=== PATIENT | female | born 1985 | race Caucasian/White ===

== ENCOUNTER 2016-05-27 16:23 | Emergency (ER) | payer MEDICAID ==
[~2016-05-27] VITALS: Ht 154.9 cm; Wt 115.0 kg
[~2016-05-27 16:23] MED LIST: ACETA500 PO; FURO1TAB60 PO; IBUP800T23 PO; MECL-62 PO; TOPA50TA7 PO; TYLETAB34 PO; ZOFR4TAB PO
[2016-05-27 16:24] VITALS: BP 142/101; PULSE 82; RESP 16; TEMP 98.4; O2SAT 98
--- NOTE | 2016-05-27 16:54 | PD ---
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 Around 1:00 today started having some left lower quadrant pain. Says the pain is quite severe She has had ovarian cysts in the past. 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 She has been trying to get without checking her urine tests and has been negative to date. She had some bleeding 2 days ago which she thought might have been implantation. Her last regular period was April 25. She has history of uterine fibroids. She also has history of pseudotumor cerebri. PFSH Past Medical History Diminished Hearing: No Headaches: Yes Kidney Stones: Yes Neurologic: Yes (PSEUDOTUMOR CEREBRI) Immunizations Current: Yes Migraines: Yes ?: Unknown LMP: 05/27/2016 Dilation and Curettage (D&C): Yes (x3 ) Past Surgical History Section: Yes (X1) Cholecystectomy: Yes Other Surgery: Yes (L KIDNEY STENTx 6) Social History Alcohol Use: No Tobacco Use: No Substance Use: No Allergies-Medications (Allergen,Severity, Reaction): Coded Allergies: Amoxicillin (Verified Allergy, Severe, Anaphylaxis, 05/27/16) Ibuprofen (Verified Allergy, Intermediate, HIVES, FACIAL SWELLING., ) Penicillin (Verified Allergy, Unknown, 05/27/16) Sulfa (Verified Allergy, Unknown, 05/27/16) Imitrex (Verified Adverse Reaction, Unknown, VOMITING PASSED OUT, 05/27/16) Reported Meds & Prescriptions Reported Meds & Active Scripts Active Physical Exam Narrative GENERAL: Well-developed female SKIN: Warm and dry. HEAD: Atraumatic. Normocephalic. EYES: Pupils equal and round. No scleral icterus. No injection or drainage. ENT: No nasal bleeding or discharge. Mucous membranes pink and moist. NECK: Trachea midline. No JVD. CARDIOVASCULAR: Regular rate and rhythm. No murmur appreciated. RESPIRATORY: No accessory muscle use. Clear to auscultation. Breath sounds equal bilaterally. GASTROINTESTINAL: Abdomen soft, non-tender, nondistended. Hepatic and splenic margins not palpable. Pelvic: There is some blood in the vaginal vault. There is fullness and tenderness in the left adnexal area MUSCULOSKELETAL: No obvious deformities. No clubbing. No cyanosis. No edema. NEUROLOGICAL: Awake and alert. No obvious cranial nerve deficits. Motor grossly within normal limits. Normal speech. PSYCHIATRIC: Appropriate mood and affect; insight and judgment normal. Data Data Last Documented VS Vital Signs Date Time Temp Pulse Resp B/P Pulse Ox O2 Delivery O2 Flow Rate FiO2 05/27/16 19:45 18 05/27/16 18:31 69 96/52 98 Room Air 05/27/16 16:24 98.4 Orders Complete Blood Count With Diff (05/27/16 16:49) Beta Hcg (Quant/Titer) (05/27/16 16:49) Sodium Chlor 0.9% 1000 Ml Inj (Ns 1000 M (05/27/16 18:30) Ondansetron Inj (Zofran Inj) (05/27/16 18:30) Hydromorphone Pf Inj (Dilaudid Pf Inj) (05/27/16 18:30) Hydromorphone Pf Inj (Dilaudid Pf Inj) (05/27/16 20:00) Us Pelvis Comp W Dop Transvag (05/27/16 18:17) Labs Laboratory Tests Test 05/27/16 17:10 White Blood Count 11.9 TH/MM3 Red Blood Count 4.65 MIL/MM3 Hemoglobin 13.1 GM/DL Hematocrit 38.7 % Mean Corpuscular Volume 83.3 FL Mean Corpuscular Hemoglobin 28.3 PG Mean Corpuscular Hemoglobin 33.9 % Concent Red Cell Distribution Width 12.3 % Platelet Count 321 TH/MM3 Mean Platelet Volume 8.2 FL Neutrophils (%) (Auto) 59.2 % Lymphocytes (%) (Auto) 33.2 % Monocytes (%) (Auto) 5.9 % Eosinophils (%) (Auto) 0.9 % Basophils (%) (Auto) 0.8 % Neutrophils # (Auto) 7.0 TH/MM3 Lymphocytes # (Auto) 4.0 TH/MM3 Monocytes # (Auto) 0.7 TH/MM3 Eosinophils # (Auto) 0.1 TH/MM3 Basophils # (Auto) 0.1 TH/MM3 CBC Comment DIFF FINAL Differential Comment Human Chorionic Gonadotropin, LESS THAN 1 Quant MIU/ML MDM Medical Decision Making Medical Screen Exam Complete: Yes Emergency Medical Condition: Yes Medical Record Reviewed: Yes Differential Diagnosis Differential includes cervicitis, ovarian cyst, ectopic Narrative Course Beta titer is 1. Ultrasound shows left hemorrhagic cyst. I will recommend pain control. She is to follow-up with [facility] Diagnosis Primary Impression: Left ovarian cyst Scripts Oxycodone-Acetaminophen (Percocet)7.5-325 mg Tab1 Tab PO Q4H PRN (PAIN) #20 TAB Ref 0 Prov:Louie Hatch MD 05/27/16 Disposition: 01 DISCHARGE HOME Condition: Stable Louie Hatch MD May 27, 2016 16:54
[2016-05-27 17:20] LABS: BASOPHIL # 0.1 TH/MM3 (0-0.2); BASOPHIL % 0.8 % (0.0-2.0); EOSINOPHIL # 0.1 TH/MM3 (0-0.4); EOSINOPHIL % 0.9 % (0.0-4.0); HEMATOCRIT 38.7 % (35.0-46.0); HEMO FLAGS DIFF FINAL; LYMPH % 33.2 % (9.0-44.0); MEAN CELL VOLUME 83.3 FL (80.0-100.0); MEAN CORPUSCULAR HEMOGLOBIN 28.3 PG (27.0-34.0); MEAN CORPUSCULAR HGB CONC 33.9 % (32.0-36.0); MONO % 5.9 % (0.0-8.0); NEUT % 59.2 % (16.0-70.0); PLATELET COUNT 321 TH/MM3 (150-450); RED BLOOD COUNT 4.65 MIL/MM3 (4.00-5.30); RED CELL DISTRIBUTION WIDTH 12.3 % (11.6-17.2); WHITE BLOOD COUNT 11.9 TH/MM3 (4.0-11.0)
[2016-05-27 17:43] LABS: BETA HCG QUANT LESS THAN 1 MIU/ML (0-5)
[2016-05-27] MEDS ORDERED: SODIUM CHLOR 0.9% 1000 ML INJ 1,000 ML IV SCH (18:30)
[2016-05-27] MEDS ORDERED: ONDANSETRON HCL 4 MG/2 ML VIAL IV PUSH ONE (18:30)
[2016-05-27] MEDS ORDERED: HYDROmorphone HCL PF 1 MG/ML VIAL IV PUSH ONE ×2 (18:30→20:00)
[2016-05-27 18:31] VITALS: BP 96/52; PULSE 69; RESP 16; O2SAT 98
--- NOTE | 2016-05-27 20:21 | RADHPO ---
EXAM DATE/TIME: 05/27/2016 19:20 [facility] COMPARISON: No previous studies available for comparison. INDICATIONS : Pelvic pain. MEDICAL HISTORY : Renal calculi. Ovarian cysts. Uterine fibroids. SURGICAL HISTORY : Cholecystectomy. section. D&C. Left kidney stent. ENCOUNTER: Initial ACUITY: 1 day PAIN SCORE: 8/10 LOCATION: Bilateral pelvis MEASUREMENTS: UTERUS: 8.6 x 4.1 x 5.5 cm ENDOMETRIAL STRIPE: 13 mm RIGHT OVARY: 3.2 x 1.8 x 1.8 cm LEFT OVARY: 4.1 x 2.4 x 3.4 cm FINDINGS: There is a 1.5 cm shadowing area in the lower uterine segment, possibly a fibroid. Endometrial stripe thickness measures up to 13 mm. Right ovary unremarkable. Probable degenerating corpus luteum or hem orrhagic cyst in left ovary measuring up to 2 cm in diameter. CONCLUSION: Probable fibroid lower uterine segment. Complex corpus luteum or hemorrhagic cyst left ovary. No free fluid. Daniel Zuniga MD on May 27, 2016 at 20:16 Board Certified Radiologist. This report was verified electronically.
[2016-05-27] MEDS ORDERED: PERC7.5T13 PO (20:33)
[2016-05-27 21:04] VITALS: BP 102/65; PULSE 63; RESP 16; O2SAT 98
[2016-05-27 21:06] VITALS: RESP 16
== END 2016-05-27 21:06 | disposition home or self-care (01) ==
LOC: PHED 16:23
DX: N83.202 Unspecified ovarian cyst, left side (principal); N93.9 Abnormal uterine and vaginal bleeding, unspecified; Z87.42 Personal history of other diseases of the female genital tract; Z87.442 Personal history of urinary calculi; Z86.69 Personal history of other diseases of the nervous system and sense organs
CPT/HCPCS: 76830; 76856; 84702; 85025; 93975; 96361; 96374; 96375; 96376; 99284; J1170; J2405; J7030

== ENCOUNTER 2016-05-29 07:31 | Emergency (ER) | payer SELFPAY ==
[~2016-05-29] VITALS: Ht 154.9 cm; Wt 115.0 kg
[~2016-05-29 07:31] MED LIST changes: -ACETA500 PO; -FURO1TAB60 PO; -IBUP800T23 PO; -MECL-62 PO; +PERC7.5T13 PO; -TOPA50TA7 PO; -TYLETAB34 PO; -ZOFR4TAB PO
[2016-05-29 07:36] VITALS: BP 140/90; PULSE 80; RESP 16; TEMP 98.2; O2SAT 100
--- NOTE | 2016-05-29 08:06 | PD ---
HPI Chief Complaint: Abdominal Pain Time Seen by Provider: 07:49 Travel History International Travel<30 days: No Contact w/Intl Traveler<30days: No Traveled to known affect area: No History of Present Illness HPI This is a 31-year-old female who presents to the emergency department with left lower quadrant pain, cramping, constant that started 3 days ago and has been worsening since then. She has been having vaginal bleeding and this morning had heavy bleeding but then it subsided. She feels like her pain got significantly worse today and she felt like her ovary was twisting on itself. She was seen in the emergency department early this week and was diagnosed with fibroids as well as a hemorrhagic ovarian cyst. She was discharged with pain medicine. She says her pain is Worse and she vomited several times this morning. She does have a history kidney stones. She denies any dysuria, urinary frequency, urgency, diarrhea or constipation and denies any fever. She has not had any abdominal surgeries. PFSH Past Medical History Diminished Hearing: No Headaches: Yes Kidney Stones: Yes Neurologic: Yes (PSEUDOTUMOR CEREBRI) Respiratory: Yes (asthma) Immunizations Current: Yes Migraines: Yes Tetanus Vaccination: Unknown Influenza Vaccination: No ?: Not LMP: 05/27/16 Dilation and Curettage (D&C): Yes (x3 ) Past Surgical History Section: Yes (X1) Cholecystectomy: Yes Other Surgery: Yes (L KIDNEY STENTx 6) Social History Alcohol Use: No Tobacco Use: Yes (1 cig a week) Substance Use: No Allergies-Medications (Allergen,Severity, Reaction): Coded Allergies: Amoxicillin (Verified Allergy, Severe, Anaphylaxis, 05/29/16) Ibuprofen (Verified Allergy, Intermediate, HIVES, FACIAL SWELLING., 05/29/16 ) Penicillin (Verified Allergy, Unknown, 05/29/16) Sulfa (Verified Allergy, Unknown, 05/29/16) Imitrex (Verified Adverse Reaction, Unknown, VOMITING PASSED OUT, 05/29/16) Reported Meds & Prescriptions Reported Meds & Active Scripts Active Percocet (Oxycodone-Acetaminophen) 7.5-325 mg Tab 1 Tab PO Q4H PRN Review of Systems Except as stated in HPI: all other systems reviewed are Neg Physical Exam Narrative GENERAL:Well appearing, no acute distress SKIN: Warm and dry. HEAD: Atraumatic. Normocephalic. EYES: Pupils equal and round. No injection or drainage. ENT: Moist mucous membranes NECK: Trachea midline. CARDIOVASCULAR: Regular rate and rhythm. No murmur appreciated. RESPIRATORY: Clear to auscultation. Breath sounds equal bilaterally. GASTROINTESTINAL: Abdomen soft, tender to palpation in the left lower quadrant with no rebound or guarding. MUSCULOSKELETAL: No obvious deformities. NEUROLOGICAL: Awake and alert. No obvious cranial nerve deficits. Moving all extremities. PSYCHIATRIC: Appropriate mood and affect; insight and judgment normal. Data Data Last Documented VS Vital Signs Date Time Temp Pulse Resp B/P Pulse Ox O2 Delivery O2 Flow Rate FiO2 05/29/16 07:50 16 05/29/16 07:36 98.2 80 140/90 100 MDM Medical Decision Making Medical Screen Exam Complete: Yes Emergency Medical Condition: Yes Interpretation(s) Afebrile, no tachycardia, normotensive Pelvic ultrasound from May 27 demonstrates probable fibroid in the lower uterine segment with a complex corpus luteum or hemorrhagic cyst on the left ovary Differential Diagnosis Ovarian cyst, ovarian torsion, kidney stone, pelvic inflammatory disease, tubo- ovarian abscess, drug-seeking behavior Narrative Course This is a 31-year-old female who presents to the emergency department with left lower quadrant abdominal pain that's been present for several days. She was concerned that her ovary was twisting on itself. She had a pelvic ultrasound 2 days ago which demonstrated a possible hemorrhagic cyst on the left which is 1.5 cm. Given the size of her cyst I don't think a torsion is likely. I had a long conversation with the patient regarding further diagnostics. I don't think she has a life-threatening etiology of her pain at this time even it's on the left side, she appears well and her vital signs are otherwise reassuring. She already had a CT scan this July so she understands the risk of radiation induced malignancy and would like to defer further CT imaging at this time if possible. I think it's reasonable to consider conservative management and have the patient follow-up with a lode miner blasting. I do have some concerns regarding the patient's frequent visits to the emergency department and pain medication use. This is the patient's ninth emergency department visit for pain related complaints in 1 year. She's filled 17 controlled substance prescriptions from 16 different providers. She has a stated allergy to ibuprofen. She has several red flags for drug-seeking behavior. I don't suspect an emergent nature of the patient's pain. Patient will be discharged home. Diagnosis Primary Impression: Left ovarian cyst Patient Instructions: General Instructions Additional Instructions: If you develop severe or worsening abdominal pain, fever>100.4, persistent vomiting or inability to eat or drink return to the emergency department immediately. Follow up with your primary care physician in 1-2 days for a check-up. Med/Other Pt SpecificInfo: No Change to Meds Disposition: 01 DISCHARGE HOME Condition: Stable Rizwana Kwok MD May 29, 2016 08:06
== END 2016-05-29 08:17 | disposition home or self-care (01) ==
LOC: PHED 07:31
DX: Z87.442 Personal history of urinary calculi (principal); N83.202 Unspecified ovarian cyst, left side
CPT/HCPCS: 99283

== ENCOUNTER 2016-10-24 14:01 | Emergency (ER) | payer MEDICAID ==
[~2016-10-24] VITALS: Ht 154.9 cm; Wt 115.0 kg
[2016-10-24 14:02] VITALS: BP 153/88; PULSE 95; RESP 20; TEMP 98.5; O2SAT 98
[2016-10-24] MEDS ORDERED: MORPHINE SULFATE 4 MG/ML INJ IV PUSH ONE (15:30)
--- NOTE | 2016-10-24 15:38 | PD ---
HPI Chief Complaint: Pain: Acute or Chronic Time Seen by Provider: 15:30 Travel History International Travel<30 days: No Contact w/Intl Traveler<30days: No Traveled to known affect area: No History of Present Illness HPI Patient's 31-year-old female presenting to emergency evaluation of right calf pain and swelling. Patient states she woke up with the pain, it is increased throughout the course of the day, worse with walking. She states pain is radiating now up to the back of her right leg. She reports the pain as a 9 out of 10 and described as cramping and sharp. Patient has a history of pseudotumor cerebri, currently she is on Lasix and Diamox. She is not on any oral contraceptive pills, she has no history of DVT. Patient further denies any shortness breath, chest pain. PFSH Past Medical History Asthma: Yes Diminished Hearing: No Headaches: Yes Kidney Stones: Yes Neurologic: Yes (PSEUDOTUMOR CEREBRI) Immunizations Current: Yes Migraines: Yes ?: Not Dilation and Curettage (D&C): Yes (x3 ) Past Surgical History Section: Yes (X1) Cholecystectomy: Yes Other Surgery: Yes (L KIDNEY STENTx 6) Social History Alcohol Use: No Tobacco Use: Yes (1 cig a week) Substance Use: No Allergies-Medications (Allergen,Severity, Reaction): Coded Allergies: Amoxicillin (Verified Allergy, Severe, Anaphylaxis, 10/24/16) Ibuprofen (Verified Allergy, Intermediate, HIVES, FACIAL SWELLING., ) Penicillin (Verified Allergy, Unknown, 10/24/16) Sulfa (Verified Allergy, Unknown, 10/24/16) Imitrex (Verified Adverse Reaction, Unknown, VOMITING PASSED OUT, 10/24/16) Reported Meds & Prescriptions Reported Meds & Active Scripts Active No Active Prescriptions or Reported Medications Review of Systems Except as stated in HPI: all other systems reviewed are Neg Cardiovascular: Positive: Varicosities, Edema Musculoskeletal: Positive: Myalgias, Cramping, Pain Physical Exam Narrative GENERAL: Obese, well-developed, alert female. Appears uncomfortable, in no acute distress. SKIN: Focused skin assessment warm/dry. Varicose veins noted to bilateral lower extremities. HEAD: Atraumatic. Normocephalic. EYES: Pupils equal and round. No scleral icterus. No injection or drainage. ENT: No nasal bleeding or discharge. Mucous membranes pink and moist. NECK: Trachea midline. No JVD. CARDIOVASCULAR: Regular rate and rhythm. No murmur appreciated. 2+ dorsalis pedal pulses bilaterally. RESPIRATORY: No accessory muscle use. Clear to auscultation. Breath sounds equal bilaterally. GASTROINTESTINAL: Abdomen soft, non-tender, nondistended. Hepatic and splenic margins not palpable. MUSCULOSKELETAL: No obvious deformities. No clubbing. No cyanosis. No edema. NEUROLOGICAL: Awake and alert. No obvious cranial nerve deficits. Motor grossly within normal limits. Normal speech. PSYCHIATRIC: Appropriate mood and affect; insight and judgment normal. Data Data Last Documented VS Vital Signs Date Time Temp Pulse Resp B/P Pulse Ox O2 Delivery O2 Flow Rate FiO2 10/24/16 18:35 88 18 145/79 100 Room Air 10/24/16 14:02 98.5 Orders Morphine Inj (Morphine Inj) (10/24/16 15:30) Comprehensive Metabolic Panel (10/24/16 15:28) Iv Access Insert/Monitor (10/24/16 15:28) Us Leg Venous Doppler (10/24/16 ) Acetamin-Hydrocod 325-5 Mg ([place] 5-325 (10/24/16 16:45) Orphenadrine Inj (Norflex Inj) (10/24/16 17:30) Acetaminophen (Tylenol) (10/24/16 17:30) Labs Laboratory Tests Test 10/24/16 17:59 Sodium Level 138 MEQ/L Potassium Level 3.8 MEQ/L Chloride Level 105 MEQ/L Carbon Dioxide Level 25.3 MEQ/L Anion Gap 8 MEQ/L Blood Urea Nitrogen 12 MG/DL Creatinine 0.52 MG/DL Estimat Glomerular Filtration 138 ML/MIN Rate Random Glucose 75 MG/DL Calcium Level 8.7 MG/DL Total Bilirubin 0.2 MG/DL Aspartate Amino Transf 15 U/L (AST/SGOT) Alanine Aminotransferase 26 U/L (ALT/SGPT) Alkaline Phosphatase 70 U/L Total Protein 6.7 GM/DL Albumin 3.3 GM/DL [facility] Medical Decision Making Medical Screen Exam Complete: Yes Emergency Medical Condition: Yes Interpretation(s) Last Impressions Lower Extremity Ultrasound 10/24/16 0000 Signed Impressions: Service Date/Time: September 15:52 - CONCLUSION: Normal examination. Wallace Parker MD Laboratory Tests Test 10/24/16 17:59 Sodium Level 138 MEQ/L Potassium Level 3.8 MEQ/L Chloride Level 105 MEQ/L Carbon Dioxide Level 25.3 MEQ/L Anion Gap 8 MEQ/L Blood Urea Nitrogen 12 MG/DL Creatinine 0.52 MG/DL Estimat Glomerular Filtration 138 ML/MIN Rate Random Glucose 75 MG/DL Calcium Level 8.7 MG/DL Total Bilirubin 0.2 MG/DL Aspartate Amino Transf 15 U/L (AST/SGOT) Alanine Aminotransferase 26 U/L (ALT/SGPT) Alkaline Phosphatase 70 U/L Total Protein 6.7 GM/DL Albumin 3.3 GM/DL Vital Signs Date Time Temp Pulse Resp B/P Pulse Ox O2 Delivery O2 Flow Rate FiO2 10/24/16 18:35 88 18 145/79 100 Room Air 10/24/16 16:00 96 18 10/24/16 14:02 98.5 95 20 153/88 98 Room Air Vital Signs Date Time Temp Pulse Resp B/P Pulse Ox O2 Delivery O2 Flow Rate FiO2 10/24/16 14:02 98.5 95 20 153/88 98 Room Air Differential Diagnosis DVT versus thrombophlebitis versus electrolyte abnormality versus muscle cramp versus muscle spasm versus other Narrative Course Patient is a 31-year-old female presenting with right calf pain and cramping since this morning. Patient's vital signs are stable, labs and imaging were ordered and pending. Patient has history of pseudotumor cerebri and is on Lasix and Diamox, we'll check electrolyte panel. Ultrasound ordered to rule out DVT. Medication order for pain. Ultrasound is negative for DVT Chemistry shows no acute issues Patient will be sent home with tramadol and muscle relaxer. She is encouraged to apply warm moist heat to affected area, continue range of motion exercises, avoid exacerbating activities. She is encouraged to follow-up with her primary doctor return to emergency department for any new or worsening symptoms. Patient was reassured at this time that there is no acute findings. She verbalized understanding of discharge instructions. Patient stable for discharge. Diagnosis Primary Impression: Right calf pain Referrals: Primary Care Physician Patient Instructions: General Instructions, Muscle Cramp (GEN), Muscle Spasm ( ED) Additional Instructions: Follow-up with her primary doctor Take medications as directed Return to emergency department for any new or worsening symptoms Do not drive or operate machinery taking narcotic pain medication Med/Other Pt SpecificInfo: Prescription(s) given Scripts Cyclobenzaprine (Flexeril)10 Mg Tab10 Mg PO TID PRN (MUSCLE SPASM) 7 Days Ref 0 Prov:Alexa Zheng 10/24/16 Tramadol 50 Mg Tab50 Mg PO Q6H PRN (PAIN) #10 TAB Ref 0 Prov:Jennifer Kim MD 10/24/16 Disposition: 01 DISCHARGE HOME Alexa Zheng Oct 24, 2016 15:38
--- NOTE | 2016-10-24 16:28 | RADRPT ---
EXAM DATE/TIME: 10/24/2016 15:52 [facility] COMPARISON: No previous studies available for comparison. INDICATIONS : Right leg swelling. MEDICAL HISTORY : Migrane. Asthma. Kidney stones. SURGICAL HISTORY : Cholecystectomy. section. Left kidney stent. D&C. ENCOUNTER: Initial ACUITY: 1 day PAIN SCORE: 7/10 LOCATION: Right leg. TECHNIQUE: Venous ultrasound of the leg was performed from the inguinal ligament to the proximal calf. Real-bradford e, color Doppler and spectral tracing, compression and augmentation techniques were used. FINDINGS: There is normal compressibility of the deep venous system from the inguinal region to the proximal ca lf. No echogenic clot is seen in the lumen of the common femoral, femoral, popliteal, and posterior tibial veins. There is a normal response of the venous system to proximal and distal augmentation an d respiration. CONCLUSION: Normal examination. Wallace Parker MD on October 24, 2016 at 16:25 Board Certified Radiologist. This report was verified electronically.
[2016-10-24] MEDS ORDERED: ACETAMINOPHEN/HYDROcodone 325 MG/5 MG TAB PO ONE (16:45)
--- NOTE | 2016-10-24 16:48 | PD ---
Data Data Last Documented VS Vital Signs Date Time Temp Pulse Resp B/P Pulse Ox O2 Delivery O2 Flow Rate FiO2 10/24/16 16:00 96 18 10/24/16 14:02 98.5 153/88 98 Room Air Orders Morphine Inj (Morphine Inj) (10/24/16 15:30) Comprehensive Metabolic Panel (10/24/16 15:28) Iv Access Insert/Monitor (10/24/16 15:28) Act Partial Throm Time (Ptt) (10/24/16 15:28) Prothrombin Time / Inr (Pt) (10/24/16 15:28) Complete Blood Count With Diff (10/24/16 15:28) Us Leg Venous Doppler (10/24/16 ) Acetamin-Hydrocod 325-5 Mg ([place] 5-325 (10/24/16 16:45) MDM Supervised Visit with SEB: Yes Narrative Course The history, exam, and medical decision-making in the associated mid-level provider note were completed with my assistance. I reviewed and agree with the findings presented. I attest that I had a [id number] encounter with the patient on the same day, and personally performed and documented my assessment and findings in the medical record. *My assessment and Findings: 31-year-old woman, here of leg pain. She has some dilated superficial veins. I don't see any appreciable swelling. She has some diffuse tenderness. Ultrasounds negative for DVT. Recommend supportive treatment and outpatient follow-up. Jaime Poe MD Oct 24, 2016 16:48
[2016-10-24] MEDS ORDERED: ACETAMINOPHEN 325 MG TAB PO ONE (17:30)
[2016-10-24] MEDS ORDERED: ORPHENADRINE INJ 60 MG/2 ML AMP IM ONE (17:30)
[2016-10-24 18:35] VITALS: BP 145/79; PULSE 88; RESP 18; O2SAT 100
[2016-10-24 18:52] LABS: ALT (GPT) 26 U/L (10-53); ANION GAP 8 MEQ/L (5-15); AST (GOT) 15 U/L (15-37); BICARBONATE 25.3 MEQ/L (21.0-32.0); BLOOD UREA NITROGEN 12 MG/DL (7-18); CHLORIDE 105 MEQ/L (98-107); GLOMERULAR FILTRATION RATE 138 ML/MIN (>89); POTASSIUM 3.8 MEQ/L (3.5-5.1); SODIUM (NA) 138 MEQ/L (136-145)
[2016-10-24 18:54] LABS: ALKALINE PHOSPHATASE 70 U/L (45-117); TOTAL BILIRUBIN ADULT 0.2 MG/DL (0.2-1.0)
[2016-10-24] MEDS ORDERED: TRAM50TA PO (19:04)
[2016-10-24] MEDS ORDERED: CYCL1TAB29 PO (19:08)
== END 2016-10-24 19:36 | disposition home or self-care (01) ==
LOC: NEPD 14:01
DX: M79.661 Pain in right lower leg (principal); M79.89 Other specified soft tissue disorders; J45.909 Unspecified asthma, uncomplicated; G93.2 Benign intracranial hypertension; F17.210 Nicotine dependence, cigarettes, uncomplicated; Z88.0 Allergy status to penicillin; Z88.2 Allergy status to sulfonamides; Z88.6 Allergy status to analgesic agent
CPT/HCPCS: 80053; 93971; 96372; 99285; J2360

== ENCOUNTER 2016-10-28 08:27 | Emergency (ER) | payer SELFPAY ==
[~2016-10-28] VITALS: Ht 154.9 cm; Wt 115.0 kg
[~2016-10-28 08:27] MED LIST changes: +CYCL1TAB29 PO; -PERC7.5T13 PO; +TRAM50TA PO
[2016-10-28 08:28] VITALS: BP 186/119; PULSE 108; RESP 18; TEMP 97.9; O2SAT 97
--- NOTE | 2016-10-28 08:54 | PD ---
HPI Chief Complaint: Headache Time Seen by Provider: 08:53 Travel History International Travel<30 days: No Contact w/Intl Traveler<30days: No Traveled to known affect area: No History of Present Illness HPI 31-year-old female came to the emergency room with history of headache. Patient has history of pseudotumor cerebri. She is on Diamox and Lasix among other medications for her pseudotumor cerebri. She says her headache started this time couple days ago. Her last spinal tap was last month. She had seen an waiter/waitress second class during that time when she was told that she has papilledema and a WET MACHINE [employer]TER shunt has been recommended by the waiter/waitress second class as well as the neurologist. She is in the process of finding a neurosurgeon. Her neurologist is Dr. Haddad. She is nauseous but no history of vomiting. Patient was hypertensive and slightly tachycardic in the ER. No history of fever or chills , no history of neck pain or stiffness. She does have some photophobia. PFSH Past Medical History Narrative Medical List of her past medical, surgical, social and family history as reviewed from the nursing note. Hx Anticoagulant Therapy: No Asthma: Yes Diabetes: No Diminished Hearing: No Headaches: Yes Kidney Stones: Yes Neurologic: Yes (PSEUDOTUMOR CEREBRI) Respiratory: Yes (asthma) Immunizations Current: Yes Migraines: Yes ?: Not LMP: 10/10/16 Dilation and Curettage (D&C): Yes (x3 ) Past Surgical History Section: Yes (X1) Cholecystectomy: Yes Other Surgery: Yes (L KIDNEY STENTx 6) Social History Alcohol Use: No Tobacco Use: Yes (1 cig a week) Substance Use: No Allergies-Medications (Allergen,Severity, Reaction): Coded Allergies: Amoxicillin (Verified Allergy, Severe, Anaphylaxis, 10/28/16) Ibuprofen (Verified Allergy, Intermediate, HIVES, FACIAL SWELLING., 10/28/16 ) Penicillin (Verified Allergy, Unknown, 10/28/16) Sulfa (Verified Allergy, Unknown, 10/28/16) Imitrex (Verified Adverse Reaction, Unknown, VOMITING PASSED OUT, 10/28/16) Comments List of her allergies reviewed from the nursing note. Reported Meds & Prescriptions Reported Meds & Active Scripts Active Tramadol (Tramadol HCl) 50 Mg Tab 50 Mg PO Q6H PRN Reported Zofran Odt (Ondansetron Odt) 4 Mg Tab 4 Mg SL Q12HR PRN Reglan (Metoclopramide HCl) 10 Mg Tab 10 Mg PO DAILY Lasix (Furosemide) 40 Mg Tab 40 Mg PO BID Topamax (Topiramate) 50 Mg Tab 50 Mg PO BID Diamox Sequels ER 12 HR (Acetazolamide) 500 Mg Cap 500 Mg PO Q12HR Meclizine (Meclizine HCl) 25 Mg Tab 25 Mg PO DIRECTED PRN Narrative Medication List of her home medications reviewed from the nursing note. Review of Systems Except as stated in HPI: all other systems reviewed are Neg Physical Exam Narrative GENERAL: Awake, alert, moderate distress, obese SKIN: Focused skin assessment warm/dry. HEAD: Atraumatic. Normocephalic. EYES: Pupils equal and round. No scleral icterus. No injection or drainage. ENT: No nasal bleeding or discharge. Mucous membranes pink and moist. NECK: Trachea midline. No JVD. Neck is supple, no signs of meningismus CARDIOVASCULAR: Regular rate and rhythm. No murmur appreciated. RESPIRATORY: No accessory muscle use. Clear to auscultation. Breath sounds equal bilaterally. GASTROINTESTINAL: Abdomen soft, non-tender, nondistended. Hepatic and splenic margins not palpable. MUSCULOSKELETAL: No obvious deformities. No clubbing. No cyanosis. No edema. NEUROLOGICAL: Awake and alert. No obvious cranial nerve deficits. Motor grossly within normal limits. Normal speech. PSYCHIATRIC: Appropriate mood and affect; insight and judgment normal. Data Data Last Documented VS Orders Complete Blood Count With Diff (10/28/16 09:01) Basic Metabolic Panel (Bmp) (10/28/16 09:01) Prothrombin Time / Inr (Pt) (10/28/16 09:01) Ecg Monitoring (10/28/16 09:01) Iv Access Insert/Monitor (10/28/16 09:01) Oximetry (10/28/16 09:01) Sodium Chloride 0.9% Flush (Ns Flush) (10/28/16 09:15) Beta Hcg (Quant/Titer) (10/28/16 09:01) Acetazolamide Inj (Diamox Inj) (10/28/16 09:15) Prochlorperazine Inj (Compazine Inj) (10/28/16 09:15) Vital Signs (Adult) .On admission (10/28/16 09:01) Notify Radiology (10/28/16 09:01) Labs MDM Medical Decision Making Medical Screen Exam Complete: Yes Emergency Medical Condition: Yes Medical Record Reviewed: Yes Differential Diagnosis Pseudotumor cerebri, status migrainous, headache NOS Narrative Course 9:16 AM given the history of pseudotumor cerebri I have ordered head CT followed by lumbar puncture to check for the opening pressure to be done by IR. Blood test has been ordered as well. Patient is getting Diamox as well as IV Compazine for the headache. Her neurologist is Dr. Haddad who is not operation supervisor today. Patient says that she tried calling the office this morning and they were closed. 10:26 AM blood test results of back and they're within normal range. The voip network technician from [employer] was here to take her for the lumbar puncture but patient refused to go. I went to speak with her and she said she wanted to speak with her neurologist Dr. Haddad regarding this since she is afraid of lumbar puncture. However given her symptoms and history of pseudotumor cerebri I told her that it would be never to go to not get a lumbar puncture. At which point she said she wants to sign herself out AMA. Patient was in full capacity to make decisions for herself. She says she has had pseudotumor cerebri for years and has dealt with it for years. She knows about this condition. Well and she knows that by choosing not to do the spinal tap she would be damaging her optic nerve further. The nurse was present in the room during this discussion. Procedures EKG Prior to Arrival: No Diagnosis Primary Impression: Headache Qualified Code: R51 - Chronic intractable headache, unspecified headache type Additional Impressions: Blurred vision Pseudotumor cerebri Disposition: 07 AGAINST MEDICAL ADVICE Condition: Serious Stephen Barksdale MD Oct 28, 2016 08:54 Lymphocytes (%) (Auto) 28.9 % Monocytes (%) (Auto) 7.3 % Eosinophils (%) (Auto) 2.2 % Basophils (%) (Auto) 0.4 % Neutrophils # (Auto) 5.5 TH/MM3 Lymphocytes # (Auto) 2.6 TH/MM3 Monocytes # (Auto) 0.7 TH/MM3 Eosinophils # (Auto) 0.2 TH/MM3 Basophils # (Auto) 0.0 TH/MM3 CBC Comment DIFF FINAL Differential Comment Sodium Level 139 MEQ/L Potassium Level 3.6 MEQ/L Chloride Level 106 MEQ/L Carbon Dioxide Level 25.6 MEQ/L Anion Gap 7 MEQ/L Blood Urea Nitrogen 13 MG/DL Creatinine 0.54 MG/DL Estimat Glomerular Filtration 132 ML/MIN Rate Random Glucose 94 MG/DL Calcium Level 8.3 MG/DL Human Chorionic Gonadotropin, LESS THAN 1 Quant MIU/ML MDM Medical Decision Making Medical Screen Exam Complete: Yes Emergency Medical Condition: Yes Medical Record Reviewed: Yes Differential Diagnosis Pseudotumor cerebri, status migrainous, headache NOS Narrative Course 9:16 AM given the history of pseudotumor cerebri I have ordered head CT followed by lumbar puncture to check for the opening pressure to be done by IR. Blood test has been ordered as well. Patient is getting Vermox as well as IV Compazine for the headache. Her neurologist is Dr. Haddad who is not operation supervisor today. Patient says that she tried calling the office this morning and they were closed. 10:26 AM blood test results of back and they're within normal range. The voip network technician from [employer] was here to take her for the lumbar puncture but patient refused to go. I went to speak with her and she said she wanted to speak with her neurologist Dr. Haddad regarding this since she is afraid of lumbar puncture. However given her symptoms and history of pseudotumor cerebri I told her that it would be never to go to not get a lumbar puncture. At which point she said she wants to sign herself out AMA. Patient was in full capacity to make decisions for herself. She says she has had pseudotumor cerebri for years and has dealt with it for years. She knows about this condition. Well and she knows that by choosing not to do the spinal tap she would be damaging her optic nerve further. The nurse was present in the room during this discussion. Procedures EKG Prior to Arrival: No Diagnosis Primary Impression: Headache Qualified Code: R51 - Chronic intractable headache, unspecified headache type Additional Impressions: Blurred vision Pseudotumor cerebri Disposition: 07 AGAINST MEDICAL ADVICE Condition: Serious Stephen Barksdale MD Oct 28, 2016 08:54
[2016-10-28] MEDS ORDERED: ZOFR4TAB3 SL (09:09)
[2016-10-28] MEDS ORDERED: MECL-62 PO (09:09)
[2016-10-28] MEDS ORDERED: ACETA500 PO (09:09)
[2016-10-28] MEDS ORDERED: FURO1TAB60 PO (09:09)
[2016-10-28] MEDS ORDERED: REGL10TA5 PO (09:09)
[2016-10-28] MEDS ORDERED: TOPA50TA7 PO (09:09)
[2016-10-28] MEDS ORDERED: PROCHLORPERAZINE INJ 10 MG/2 ML VIAL IV PUSH ONE (09:15)
[2016-10-28] MEDS ORDERED: SODIUM CHLORIDE 0.9% FLUSH 10 ML FLUSH IVF PRN (09:15)
[2016-10-28 09:46] VITALS: BP 108/56; PULSE 62; RESP 20; O2SAT 99
[2016-10-28 09:49] LABS: AUTOMATED NEUTROPHIL # 5.5 TH/MM3 (1.8-7.7); BASOPHIL % 0.4 % (0.0-2.0); EOSINOPHIL # 0.2 TH/MM3 (0-0.4); EOSINOPHIL % 2.2 % (0.0-4.0); HEMATOCRIT 30.9 % (35.0-46.0); HEMO FLAGS DIFF FINAL; LYMPH % 28.9 % (9.0-44.0); LYMPHOCYTE # 2.6 TH/MM3 (1.0-4.8); MEAN CORPUSCULAR HEMOGLOBIN 27.4 PG (27.0-34.0); MEAN CORPUSCULAR HGB CONC 33.5 % (32.0-36.0); MONO % 7.3 % (0.0-8.0); NEUT % 61.2 % (16.0-70.0); PLATELET COUNT 262 TH/MM3 (150-450); RED BLOOD COUNT 3.77 MIL/MM3 (4.00-5.30); RED CELL DISTRIBUTION WIDTH 13.3 % (11.6-17.2)
[2016-10-28 10:04] LABS: ANION GAP 7 MEQ/L (5-15); BICARBONATE 25.6 MEQ/L (21.0-32.0); BLOOD UREA NITROGEN 13 MG/DL (7-18); CHLORIDE 106 MEQ/L (98-107); GLOMERULAR FILTRATION RATE 132 ML/MIN (>89); POTASSIUM 3.6 MEQ/L (3.5-5.1); SODIUM (NA) 139 MEQ/L (136-145)
[2016-10-28 10:12] LABS: BETA HCG QUANT LESS THAN 1 MIU/ML (0-5)
[2016-10-28 10:49] LABS: PROTHROMBIN TIME - PATIENT 9.6 SEC (9.8-11.6)
[2016-10-28 10:50] LABS: INTERNATIONAL NORMALIZED RATIO 0.9 RATIO
[2016-10-28 11:02] VITALS: BP 123/55
== END 2016-10-28 11:05 | disposition left against medical advice (07) ==
LOC: NEPC 08:27
DX: G93.2 Benign intracranial hypertension (principal); I10 Essential (primary) hypertension; R00.0 Tachycardia, unspecified; H53.8 Other visual disturbances; Z72.0 Tobacco use
CPT/HCPCS: 80048; 84702; 85025; 85610; 96374; 99284; J1120

== ENCOUNTER 2016-11-06 14:37 | Observation (INO) | payer MEDICAID ==
[~2016-11-06 14:37] MED LIST changes: +ACETA500 PO; -CYCL1TAB29 PO; +FURO1TAB60 PO; +MECL-62 PO; +REGL10TA5 PO; +TOPA50TA7 PO; +ZOFR4TAB3 SL
[2016-11-06 14:38] VITALS: BP 189/98; PULSE 72; RESP 20; TEMP 98.8; O2SAT 100
[2016-11-06 16:01] LABS: BLOOD, URINE TRACE (NEG); COMMENT (UR) CULT NOT INDICATED; CULTURE IF INDICATED CULT NOT INDICATED; GLUCOSE,URINE NEG (NEG); KETONE, URINE NEG (NEG); MUCUS URINE FEW /lpf (OCC); NITRITE,URINE NEG (NEG); SQUAMOUS EPITHELIAL CELL URINE 7 /hpf (0-5); URINE COLOR YELLOW (YELLW/STRAW)
[2016-11-06 16:03] LABS: CALCIUM OXALATE CRYSTALS,URINE FEW /hpf
[2016-11-06] MEDS ORDERED: SODIUM CHLOR 0.9% 1000 ML INJ 1,000 ML IV SCH (17:55)
[2016-11-06 18:00] VITALS: BP 136/79; PULSE 70; RESP 16; O2SAT 100
[2016-11-06] MEDS ORDERED: cefTRIAXone INJ 1,000 MG in SODIUM CHLORIDE 0.9% INJ 100 ML IV ONE (18:00)
[2016-11-06] MEDS ORDERED: MORPHINE SULFATE 8 MG/ML INJ IV PUSH ONE (18:00)
[2016-11-06] MEDS ORDERED: ONDANSETRON HCL 4 MG/2 ML VIAL IVP ONE (18:00)
[2016-11-06] MEDS ORDERED: SODIUM CHLORIDE 0.9% FLUSH 10 ML FLUSH IV FLUSH PRN ×2 (18:00→20:45)
--- NOTE | 2016-11-06 18:08 | PD ---
HPI Chief Complaint: Complaint Time Seen by Provider: 18:02 Travel History International Travel<30 days: No Contact w/Intl Traveler<30days: No Traveled to known affect area: No History of Present Illness HPI 31-year-old female with a history of pseudotumor cerebri and kidney stones presents to the emergency department for evaluation of left flank pain and dysuria. Patient states that 3 days ago she began to have burning with urination, painful urination and urinary frequency. States that she used her strainer yesterday and noticed a few small stones in her urine. States that this morning when she woke up she felt the urge to urinate and passed only a small amount of blood. States that she developed left flank pain this morning. States she had a fever 101F yesterday. States she's had subjective fever today. Complains of nausea but no vomiting. Denies vaginal discharge, vaginal bleeding, diarrhea, constipation. Denies , last menstrual period. Prior abdominal surgeries include cholecystectomy and multiple renal stents. No other complaints. PFSH Past Medical History Hx Anticoagulant Therapy: No Asthma: Yes Diabetes: No Diminished Hearing: No Headaches: Yes Kidney Stones: Yes Neurologic: Yes (IDIOPATHIC INTERCRANIAL HYPERTENSION) Respiratory: Yes (asthma) Immunizations Current: Yes Migraines: Yes Tetanus Vaccination: Unknown Influenza Vaccination: No ?: Not Dilation and Curettage (D&C): Yes (x3 ) Past Surgical History Section: Yes Cholecystectomy: Yes Genitourinary Surgery: Yes (STENTS KIDNEYS) Other Surgery: Yes (L KIDNEY STENTx 6) Social History Alcohol Use: Yes (rarely) Tobacco Use: Yes Substance Use: No Allergies-Medications (Allergen,Severity, Reaction): Coded Allergies: Amoxicillin (Verified Allergy, Severe, Anaphylaxis, 10/28/16) Ibuprofen (Verified Allergy, Intermediate, HIVES, FACIAL SWELLING., 10/28/16 ) Compazine (Verified Allergy, Unknown, 11/06/16) Penicillin (Verified Allergy, Unknown, 10/28/16) Sulfa (Verified Allergy, Unknown, 10/28/16) Imitrex (Verified Adverse Reaction, Unknown, VOMITING PASSED OUT, 10/28/16) Reported Meds & Prescriptions Reported Meds & Active Scripts Active Tramadol (Tramadol HCl) 50 Mg Tab 50 Mg PO Q6H PRN Reported Zofran Odt (Ondansetron Odt) 4 Mg Tab 4 Mg SL Q12HR PRN Reglan (Metoclopramide HCl) 10 Mg Tab 10 Mg PO DAILY Lasix (Furosemide) 40 Mg Tab 40 Mg PO BID Topamax (Topiramate) 50 Mg Tab 50 Mg PO BID Diamox Sequels ER 12 HR (Acetazolamide) 500 Mg Cap 500 Mg PO Q12HR Meclizine (Meclizine HCl) 25 Mg Tab 25 Mg PO DIRECTED PRN Review of Systems Except as stated in HPI: all other systems reviewed are Neg Physical Exam Narrative GENERAL: Well-nourished and well-developed pleasant patient in no acute distress who is nontoxic appearing. SKIN: Warm and dry. HEAD: Normocephalic and atraumatic. EYES: No injection, drainage, or hyphema noted. PERRLA. EOMI. ENT: No nasal drainage noted. Oropharynx is clear. NECK: Supple and the trachea is midline. CARDIOVASCULAR: Regular rate and rhythm. RESPIRATORY: Breath sounds are equal bilaterally with no accessory muscle use, wheezing, rhonchi, or crackles. GASTROINTESTINAL: Tenderness to palpation over left flank and lower quadrant. No rebound tenderness or guarding. Abdomen is soft and nondistended. MUSCULOSKELETAL: No obvious deformities, swelling, cyanosis, or ecchymosis is present throughout the upper and lower extremities. Patient has full range of motion without any signs of neurovascular compromise. BACK: Positive left CVA tenderness. NEUROLOGICAL: Awake, alert, and oriented. Normal speech and gait. Cranial nerves are grossly intact. Data Data Last Documented VS Vital Signs Date Time Temp Pulse Resp B/P Pulse Ox O2 Delivery O2 Flow Rate FiO2 11/06/16 19:42 67 18 141/84 100 Room Air 11/06/16 14:38 98.8 Orders Urinalysis - C+S If Indicated (11/06/16 15:28) Ed Urine Pregnancytest Poc (11/06/16 15:28) Complete Blood Count With Diff (11/06/16 17:55) Comprehensive Metabolic Panel (11/06/16 17:55) Lipase (11/06/16 17:55) Ct Abd/Pel W/O Iv Contrast (11/06/16 17:55) Iv Access Insert/Monitor (11/06/16 17:55) Ecg Monitoring (11/06/16 17:55) Oximetry (11/06/16 17:55) Ondansetron Inj (Zofran Inj) (11/06/16 18:00) Sodium Chlor 0.9% 1000 Ml Inj (Ns 1000 M (11/06/16 17:55) Sodium Chloride 0.9% Flush (Ns Flush) (11/06/16 18:00) Morphine Inj (Morphine Inj) (11/06/16 18:00) Ceftriaxone Inj (Rocephin Inj) (11/06/16 18:00) Urine Culture (11/06/16 18:12) Hydromorphone Pf Inj (Dilaudid Pf Inj) (11/06/16 20:00) Labs Laboratory Tests Test 11/06/16 11/06/16 15:25 18:00 Urine Color YELLOW Urine Turbidity HAZY Urine pH 6.0 Urine Specific [place] 1.036 Urine Protein 30 mg/dL Urine Glucose (UA) NEG mg/dL Urine Ketones NEG mg/dL Urine Occult Blood TRACE Urine Nitrite NEG Urine Bilirubin NEG Urine Urobilinogen 2.0 MG/DL Urine Leukocyte Esterase MOD Urine RBC 39 /hpf Urine WBC 8 /hpf Urine Squamous Epithelial 7 /hpf Cells Urine Calcium Oxalate Crystals FEW /hpf Urine Amorphous Sediment RARE Urine Mucus FEW /lpf Microscopic Urinalysis Comment CULT NOT INDICATED White Blood Count 14.3 TH/MM3 Red Blood Count 4.20 MIL/MM3 Hemoglobin 11.1 GM/DL Hematocrit 35.4 % Mean Corpuscular Volume 84.3 FL Mean Corpuscular Hemoglobin 26.4 PG Mean Corpuscular Hemoglobin 31.3 % Concent Red Cell Distribution Width 14.3 % Platelet Count 320 TH/MM3 Mean Platelet Volume 8.1 FL Neutrophils (%) (Auto) 48.9 % Lymphocytes (%) (Auto) 42.1 % Monocytes (%) (Auto) 7.1 % Eosinophils (%) (Auto) 1.2 % Basophils (%) (Auto) 0.7 % Neutrophils # (Auto) 7.0 TH/MM3 Lymphocytes # (Auto) 6.0 TH/MM3 Monocytes # (Auto) 1.0 TH/MM3 Eosinophils # (Auto) 0.2 TH/MM3 Basophils # (Auto) 0.1 TH/MM3 CBC Comment AUTO DIFF Differential Total Cells 100 Counted Neutrophils % (Manual) 46 % Band Neutrophils % 1 % Lymphocytes % 42 % Monocytes % 6 % Eosinophils % 4 % Basophils % 1 % Neutrophils # (Manual) 6.7 TH/MM3 Differential Comment FINAL DIFF MANUAL Platelet Estimate NORMAL Platelet Morphology Comment NORMAL Red Cell Morphology Comment NORMAL Sodium Level 140 MEQ/L Potassium Level 3.9 MEQ/L Chloride Level 107 MEQ/L Carbon Dioxide Level 25.6 MEQ/L Anion Gap 7 MEQ/L Blood Urea Nitrogen 15 MG/DL Creatinine 0.67 MG/DL Estimat Glomerular Filtration 103 ML/MIN Rate Random Glucose 94 MG/DL Calcium Level 8.4 MG/DL Total Bilirubin 0.2 MG/DL Aspartate Amino Transf 28 U/L (AST/SGOT) Alanine Aminotransferase 31 U/L (ALT/SGPT) Alkaline Phosphatase 61 U/L Total Protein 7.0 GM/DL Albumin 3.2 GM/DL Lipase 103 U/L [facility] Medical Decision Making Medical Screen Exam Complete: Yes Emergency Medical Condition: Yes Differential Diagnosis Kidney stones versus pyelonephritis versus urinary tract infection versus kidney injury Narrative Course 31-year-old female presents to the emergency department for evaluation of left flank pain and dysuria with a history of recurrent kidney stones. Patient is afebrile, vital signs are stable. IV access is obtained, labs have been drawn and sent. Patient is placed on cardiac telemetry and pulse oximetry monitoring. Patient is reporting she is allergic to ibuprofen and Toradol. She is administered IV fluids, Zofran and morphine. ED urine test is negative. Urinalysis shows 30 protein, trace occult blood, moderate leukocyte esterase, 39 red blood cells, 8 white blood cells, few calcium oxalate crystals and a few mucus. CBC shows an elevated white blood cell count of 14.3, otherwise unremarkable. CMP is unremarkable. CT of the abdomen and pelvis does not show a definite etiology for the patient' s hematuria. Nephritis cannot be excluded. There is no perinephric stranding to suggest obstruction. The patient has received multiple doses of pain medication and is still complaining of flank pain and states she is now having it bilaterally, still worse on the left. Therefore she'll be admitted to medicine service under observation for intractable flank pain. I discussed the case with my attending physician Dr. Mir who is aware of the patients history, physical examination findings, and treatment plan. Physician Communication Physician Communication I spoke with Dr. Aviva KAYE who agrees to accept the patient to observation status. Diagnosis Primary Impression: Bilateral flank pain Additional Impression: Hematuria Qualified Code: R31.9 - Hematuria, unspecified type Admitting Information Admitting Physician Requests: Observation Naa Roberson Nov 06, 2016 18:07
[2016-11-06 18:17] VITALS: RESP 16; O2SAT 100
[2016-11-06 18:50] LABS: BASOPHIL # 0.1 TH/MM3 (0-0.2); BASOPHIL % 0.7 % (0.0-2.0); EOSINOPHIL # 0.2 TH/MM3 (0-0.4); EOSINOPHIL % 1.2 % (0.0-4.0); HEMATOCRIT 35.4 % (35.0-46.0); LYMPH % 42.1 % (9.0-44.0); MEAN CELL VOLUME 84.3 FL (80.0-100.0); MEAN CORPUSCULAR HEMOGLOBIN 26.4 PG (27.0-34.0); MEAN CORPUSCULAR HGB CONC 31.3 % (32.0-36.0); MONO % 7.1 % (0.0-8.0); NEUT % 48.9 % (16.0-70.0); PLATELET COUNT 320 TH/MM3 (150-450); RED CELL DISTRIBUTION WIDTH 14.3 % (11.6-17.2); WHITE BLOOD COUNT 14.3 TH/MM3 (4.0-11.0)
[2016-11-06 18:52] LABS: HEMO FLAGS AUTO DIFF
[2016-11-06 19:09] LABS: ALT (GPT) 31 U/L (10-53)
[2016-11-06 19:11] LABS: ALKALINE PHOSPHATASE 61 U/L (45-117); TOTAL BILIRUBIN ADULT 0.2 MG/DL (0.2-1.0)
--- NOTE | 2016-11-06 19:15 | RADRPT ---
EXAM DATE/TIME: 11/06/2016 18:53 [facility] COMPARISON: CT ABDOMEN & PELVIS W/O CONTRAST, August 13, 2015, 19:43. INDICATIONS : Left flank pain and hematuria. ORAL CONTRAST: No oral contrast ingested. RADIATION DOSE: 22.44 CTDIvol (mGy) MEDICAL HISTORY : Renal calculi. Hypertension. SURGICAL HISTORY : Cholecystectomy. ENCOUNTER: Initial ACUITY: 2 days PAIN SCALE: 7/10 LOCATION: Left flank TECHNIQUE: Volumetric scanning of the abdomen and pelvis was performed. Using automated exposure control and ad justment of the mA and/or kV according to patient size, radiation dose was kept as low as reasonably achievable to obtain optimal diagnostic quality images. DICOM format image data is available electro nically for review and comparison. FINDINGS: The lung base is are clear. The liver, spleen, pancreas and adrenals are unremarkable. Right kidney: There no calculi in the right kidney Left kidney: There are no calculi in the left kidney. The small left apparent gonadal vein calcifications evident. Multiple phleboliths are present in the pelvis I do not see evidence for bladder stone. CONCLUSION: I do not see definite etiology for the patient's hematuria. Nephritis cannot be excluded. There is no perinephric stranding to suggest obstruction. Ang Torres MD FACR on November 06, 2016 at 19:11 Board Certified Radiologist. This report was verified electronically.
[2016-11-06 19:24] LABS: ANION GAP 7 MEQ/L (5-15); AST (GOT) 28 U/L (15-37); BICARBONATE 25.6 MEQ/L (21.0-32.0); BLOOD UREA NITROGEN 15 MG/DL (7-18); CHLORIDE 107 MEQ/L (98-107); GLOMERULAR FILTRATION RATE 103 ML/MIN (>89); SODIUM (NA) 140 MEQ/L (136-145)
[2016-11-06 19:25] LABS: POTASSIUM 3.9 MEQ/L (3.5-5.1)
[2016-11-06 19:30] LABS: BANDS 1 % (0-6); BASOPHILS 1 % (0-2); EOSINOPHILS 4 % (0-4); NEUTROPHIL # MANUAL DIFF 6.7 TH/MM3 (1.8-7.7); POLYS (SEG NEUTROPHILS) 46 % (16-70); SCAN/DIFF FINAL DIFF MANUAL; WBC DIFF SAMPLE 100
[2016-11-06 19:31] LABS: PLATELET ESTIMATE SMEAR NORMAL (NORMAL); PLATELET MORPHOLOGY NORMAL (NORMAL)
[2016-11-06 19:42] VITALS: BP 141/84; PULSE 67; RESP 18; O2SAT 100
[2016-11-06] MEDS ORDERED: HYDROmorphone HCL PF 1 MG/ML VIAL IV PUSH ONE (20:00)
[2016-11-06] MEDS ORDERED: NALOXONE HCL 0.4 MG/ML AMP IV PRN (20:45)
[2016-11-06] MEDS: SODIUM CHLORIDE 0.9% FLUSH 10 ML FLUSH IV FLUSH SCH (20:57)
[2016-11-06] MEDS: SODIUM CHLOR 0.9% 1000 ML INJ 1,000 ML IV SCH (20:57)
[2016-11-06] MEDS: MORPHINE SULFATE 8 MG/ML INJ IV PUSH PRN (21:53)
[2016-11-07] VITALS (8 sets, daily range): BP systolic 103–159; BP diastolic 53–71; PULSE 51–64; RESP 15–19; TEMP 97.1–98.4; O2SAT 95–100
[2016-11-07] MEDS: MORPHINE SULFATE 8 MG/ML INJ IV PUSH PRN ×2 (01:49→05:35)
--- NOTE | 2016-11-07 06:49 | HHI.HP ---
[facility] No Primary Care Physician Admission Diagnosis Intractable Flank Pain, Hematuria Diagnoses: Travel History International Travel<30 Days: No Contact w/Intl Traveler <30 Da: No Traveled to Known Affected Are: No History of Present Illness History from patient, ER PA communication, and review of medical records. Patient reported that she came to the hospital because she was having bilateral flank pain more on the left side than the right which started yesterday. She reports this was associated with nausea but no vomiting. reports of low- grade fever as well. Reports she has history of renal stones and renal stents in the past. She has had multiple renal stents and her left kidney. For the past 2 years so, she has not had a stent. She reports that while she was urinating, she was also able to see some fragments. So she thought that she was passing some minor stones. 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 She also reports of blood in her urine which she could see when she wiped the toilet paper. No kandace hematuria. In the emergency room, patient was given IV fluids, with IV pain medications. She reports that her prior stones have been oxalate stones. Apart from the above, she denies any chest pain/palpitations/shortness of breath /focal weakness. Denies any hematemesis/hematochezia/melena. 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 Past Surgical History lithotripsies renal stents cholecystectomy c section Allergies: Coded Allergies: Amoxicillin (Verified Allergy, Severe, Anaphylaxis, 10/28/16) Ibuprofen (Verified Allergy, Intermediate, HIVES, FACIAL SWELLING., 10/28/16 ) Tramadol (Verified Allergy, Intermediate, 11/07/16) hives, sewll up Compazine (Verified Allergy, Unknown, 11/06/16) Penicillin (Verified Allergy, Unknown, 10/28/16) Sulfa (Verified Allergy, Unknown, 10/28/16) Imitrex (Verified Adverse Reaction, Unknown, VOMITING PASSED OUT, 10/28/16) Family History dad- renal stones Social History in process of quitting smoking no drinking etoh, no drugs Physical Exam Vital Signs Vital Signs Date Time Temp Pulse Resp B/P Pulse Ox O2 Delivery O2 Flow Rate FiO2 11/07/16 04:02 97.1 51 16 117/53 97 11/07/16 03:47 97.6 11/07/16 03:37 18 11/07/16 00:52 97.4 53 19 128/71 99 11/06/16 19:42 67 18 141/84 100 Room Air 11/06/16 18:36 16 11/06/16 18:17 16 100 Room Air 11/06/16 18:00 70 16 136/79 100 Room Air 11/06/16 17:50 16 11/06/16 14:38 98.8 72 20 189/98 100 Room Air Physical Exam GENERAL: This is a well-nourished, well-developed patient, in no apparent distress. SKIN: No rashes, ecchymoses or lesions. Cool and dry. HEAD: Atraumatic. Normocephalic. No temporal or scalp tenderness. EYES: No scleral icterus. No injection or drainage. ENT: Nose without bleeding, purulent drainage or septal hematoma. Airway patent. NECK: Trachea midline. No JVD CARDIOVASCULAR: Regular rate and rhythm without murmurs, gallops, or rubs. RESPIRATORY: Clear to auscultation. Breath sounds equal bilaterally. No wheezes , rales, or rhonchi. GASTROINTESTINAL: Abdomen soft, non-tender, nondistended. No guarding. Left flank pain MUSCULOSKELETAL: Extremities without clubbing, cyanosis, or edema. No calf tenderness. NEUROLOGICAL: Awake and alert. Motor and sensory grossly within normal limits. Normal speech. Laboratory Laboratory Tests Test 11/06/16 11/06/16 15:25 18:00 Urine Color YELLOW Urine Turbidity HAZY Urine pH 6.0 Urine Specific [place] 1.036 Urine Protein 30 Urine Glucose (UA) NEG Urine Ketones NEG Urine Occult Blood TRACE Urine Nitrite NEG Urine Bilirubin NEG Urine Urobilinogen 2.0 Urine Leukocyte Esterase MOD Urine RBC 39 Urine WBC 8 Urine Squamous Epithelial 7 Cells Urine Calcium Oxalate Crystals FEW Urine Amorphous Sediment RARE Urine Mucus FEW Microscopic Urinalysis Comment CULT NOT INDICATED White Blood Count 14.3 Red Blood Count 4.20 Hemoglobin 11.1 Hematocrit 35.4 Mean Corpuscular Volume 84.3 Mean Corpuscular Hemoglobin 26.4 Mean Corpuscular Hemoglobin 31.3 Concent Red Cell Distribution Width 14.3 Platelet Count 320 Mean Platelet Volume 8.1 Neutrophils (%) (Auto) 48.9 Lymphocytes (%) (Auto) 42.1 Monocytes (%) (Auto) 7.1 Eosinophils (%) (Auto) 1.2 Basophils (%) (Auto) 0.7 Neutrophils # (Auto) 7.0 Lymphocytes # (Auto) 6.0 Monocytes # (Auto) 1.0 Eosinophils # (Auto) 0.2 Basophils # (Auto) 0.1 CBC Comment AUTO DIFF Differential Total Cells 100 Counted Neutrophils % (Manual) 46 Band Neutrophils % 1 Lymphocytes % 42 Monocytes % 6 Eosinophils % 4 Basophils % 1 Neutrophils # (Manual) 6.7 Differential Comment FINAL DIFF MANUAL Platelet Estimate NORMAL Platelet Morphology Comment NORMAL Red Cell Morphology Comment NORMAL Sodium Level 140 Potassium Level 3.9 Chloride Level 107 Carbon Dioxide Level 25.6 Anion Gap 7 Blood Urea Nitrogen 15 Creatinine 0.67 Estimat Glomerular Filtration 103 Rate Random Glucose 94 Calcium Level 8.4 Total Bilirubin 0.2 Aspartate Amino Transf 28 (AST/SGOT) Alanine Aminotransferase 31 (ALT/SGPT) Alkaline Phosphatase 61 Total Protein 7.0 Albumin 3.2 Lipase 103 Date/Time Procedure Status Source Growth 11/06/16 15:25 Urine Culture Received Urine Clean Catch Pending Result Diagram: 11/06/16 1800 11/06/16 1800 Imaging Last 48 hours Impressions Abdomen/Pelvis CT 11/06/16 [id number] Signed Impressions: Service Date/Time: Sunday, November 06, 2016 18:53 - CONCLUSION: I do not see definite etiology for the patient's hematuria. Nephritis cannot be excluded. There is no perinephric stranding to suggest obstruction. Ang Torres MD FACR Course Assessment and Plan Assessment and Plan Impression: Intractable flank painlikely due to renal stones. CT imaging personally reviewed. No evidence of obstructive uropathy. No evidence of visible micro- stones. We'll need to monitor his renal functions. Restart her on her doses of home meds. Monitor clinically for improvement. CT of the accident did not reveal any evidence of stones, hydroureter, hydronephrosis. UA personally reviewed. Had blood, turbidity, to be recently. We would send for mandatory urine culture as patient is also symptomatic. Resume Rocephin. Pain control- switched to dilaudid as patient states morphine does not work. Will need to scale back on pain meds. Resume home medications. DVT prophylaxiswith Lovenox. GI prophylaxis on pantoprazole. Yahir Chicas MD Nov 07, 2016 06:49
[2016-11-07] MEDS ORDERED: ONDANSETRON ODT 4 MG TAB SL PRN (07:00)
[2016-11-07] MEDS: SODIUM CHLOR 0.9% 1000 ML INJ 1,000 ML IV SCH ×2 (07:12→17:00)
[2016-11-07] MEDS: PANTOPRAZOLE SODIUM 40 MG VIAL IV PUSH SCH (08:36)
[2016-11-07] MEDS: ENOXAPARIN SODIUM 40 MG/0.4 ML SYRINGE SQ SCH (08:36)
[2016-11-07] MEDS: FUROSEMIDE 40 MG TAB PO SCH ×2 (08:38→18:45)
[2016-11-07] MEDS: HYDROmorphone HCL PF 1 MG/ML VIAL IV PUSH PRN ×3 (08:38→16:29)
[2016-11-07] MEDS: acetaZOLAMIDE SEQUELS 500 MG SUSTAINED RELEASE CAP PO SCH ×2 (08:38→21:14)
[2016-11-07] MEDS: TOPIRAMATE 25 MG TAB PO SCH ×2 (08:39→21:15)
[2016-11-07] MEDS: SODIUM CHLORIDE 0.9% FLUSH 10 ML FLUSH IV FLUSH SCH ×2 (08:41→21:00)
[2016-11-07 11:48] LABS: AUTOMATED NEUTROPHIL # 7.1 TH/MM3 (1.8-7.7); BASOPHIL # 0.1 TH/MM3 (0-0.2); BASOPHIL % 0.8 % (0.0-2.0); EOSINOPHIL # 0.3 TH/MM3 (0-0.4); EOSINOPHIL % 2.2 % (0.0-4.0); HEMATOCRIT 37.9 % (35.0-46.0); HEMO FLAGS DIFF FINAL; LYMPH % 37.2 % (9.0-44.0); LYMPHOCYTE # 4.9 TH/MM3 (1.0-4.8); MEAN CELL VOLUME 83.2 FL (80.0-100.0); MEAN CORPUSCULAR HGB CONC 31.3 % (32.0-36.0); MONO % 6.5 % (0.0-8.0); NEUT % 53.3 % (16.0-70.0); PLATELET COUNT 329 TH/MM3 (150-450); RED BLOOD COUNT 4.55 MIL/MM3 (4.00-5.30); RED CELL DISTRIBUTION WIDTH 13.6 % (11.6-17.2); WHITE BLOOD COUNT 13.3 TH/MM3 (4.0-11.0)
[2016-11-07] MEDS ORDERED: NALOXONE HCL 0.4 MG/ML AMP IV PRN (13:15)
[2016-11-07] MEDS ORDERED: oxyCODONE/ACETAMINOPHEN 5 MG/325 MG TAB PO PRN (13:15)
[2016-11-07] MEDS: oxyCODONE/ACETAMINOPHEN 10 MG/325 MG TAB PO PRN ×2 (14:50→21:14)
--- NOTE | 2016-11-07 15:38 | HHI.PR ---
Subjective Remarks Follow-up for UTI Pain is better, but 5/10, bilateral flank. Still with subjective fever, positive chills. No nausea or vomiting. Positive passage of status stone/ stone like material. Still with mild hematuria Objective Vitals Vital Signs Date Time Temp Pulse Resp B/P Pulse Ox O2 Delivery O2 Flow Rate FiO2 11/07/16 14:56 97.8 64 17 159/71 100 11/07/16 12:01 98.4 53 15 114/58 95 11/07/16 08:26 97.9 54 16 103/58 99 11/07/16 04:02 97.1 51 16 117/53 97 11/07/16 03:47 97.6 11/07/16 03:37 18 11/07/16 00:52 97.4 53 19 128/71 99 11/06/16 19:42 67 18 141/84 100 Room Air 11/06/16 18:36 16 11/06/16 18:17 16 100 Room Air 11/06/16 18:00 70 16 136/79 100 Room Air 11/06/16 17:50 16 Result Diagram: 11/07/16 1122 11/06/16 1800 Imaging Last Impressions Abdomen/Pelvis CT 11/06/16 [id number] Signed Impressions: Service Date/Time: Sunday, November 06, 2016 18:53 - CONCLUSION: I do not see definite etiology for the patient's hematuria. Nephritis cannot be excluded. There is no perinephric stranding to suggest obstruction. Ang Torres MD FACR Objective Remarks Not in distress, well-nourished, looks stated age PERRL, pink conjunctiva without injection, anicteric Nose without bleeding, airway patent, oropharynx clear Supple neck, no masses or thyromegaly, trachea midline Normal rate and regular rhythm, no murmurs gallops or rubs appreciated. Clear to auscultation and symmetric bilaterally, normal respiratory effort. Mild flank tenderness. Extremities without clubbing, cyanosis, or edema. No rash of generalized distribution. Skin is warm and dry. AAO x3, no cranial nerve deficits, moves all 4 extremities, no focal neurologic deficits Normal mood, appropriate affect A/P Assessment and Plan This is a 31-year-old female with UTI and nephrolithiasis Urinary tract infection secondary to nephrolithiasis-likely passage of stone, continue ceftriaxone, follow-up urine culture, continue Percocet and intravenous narcotics as needed. Possible discharge tomorrow. CT scan of the abdomen revealed no stone or no perinephric stranding, likely passage of stone. Continue IVF. Recheck BMP and CBC tomorrow. Check blood cultures. DVT prophylaxis: SCDs, low risk. Discharge Planning Possible discharge tomorrow Myles Roman MD Nov 07, 2016 15:38
[2016-11-07 17:20] LABS: BICARBONATE 24.8 MEQ/L (21.0-32.0); POTASSIUM 3.6 MEQ/L (3.5-5.1)
[2016-11-07] MEDS ORDERED: cefTRIAXone INJ 1,000 MG in SODIUM CHLORIDE 0.9% INJ 100 ML IV SCH (18:00)
[2016-11-08] MEDS: HYDROmorphone HCL PF 1 MG/ML VIAL IV PUSH PRN ×2 (00:14→09:44)
[2016-11-08] MEDS: SODIUM CHLOR 0.9% 1000 ML INJ 1,000 ML IV SCH ×2 (01:05→12:42)
[2016-11-08 05:05] VITALS: BP 104/51; PULSE 64; RESP 17; TEMP 98.2; O2SAT 95
[2016-11-08 08:31] VITALS: BP 134/65; PULSE 62; RESP 16; TEMP 99.1; O2SAT 98
[2016-11-08] MEDS: SODIUM CHLORIDE 0.9% FLUSH 10 ML FLUSH IV FLUSH SCH (09:00)
[2016-11-08] MEDS: acetaZOLAMIDE SEQUELS 500 MG SUSTAINED RELEASE CAP PO SCH (09:42)
[2016-11-08] MEDS: TOPIRAMATE 25 MG TAB PO SCH (09:43)
[2016-11-08] MEDS: FUROSEMIDE 40 MG TAB PO SCH (09:43)
[2016-11-08] MEDS: ENOXAPARIN SODIUM 40 MG/0.4 ML SYRINGE SQ SCH (09:44)
[2016-11-08] MEDS: PANTOPRAZOLE SODIUM 40 MG VIAL IV PUSH SCH (09:44)
[2016-11-08] MEDS ORDERED: OXYC1TAB36 PO (09:51)
[2016-11-08 11:06] VITALS: BP 126/80; PULSE 79; RESP 14; TEMP 98.7; O2SAT 98
[2016-11-08 12:32] LABS: AUTOMATED NEUTROPHIL # 8.1 TH/MM3 (1.8-7.7); BASOPHIL # 0.1 TH/MM3 (0-0.2); BASOPHIL % 0.6 % (0.0-2.0); EOSINOPHIL # 0.3 TH/MM3 (0-0.4); EOSINOPHIL % 2.1 % (0.0-4.0); HEMATOCRIT 38.4 % (35.0-46.0); HEMO FLAGS DIFF FINAL; LYMPH % 25.7 % (9.0-44.0); LYMPHOCYTE # 3.2 TH/MM3 (1.0-4.8); MEAN CELL VOLUME 82.9 FL (80.0-100.0); MEAN CORPUSCULAR HEMOGLOBIN 26.2 PG (27.0-34.0); MEAN CORPUSCULAR HGB CONC 31.7 % (32.0-36.0); MONO % 5.8 % (0.0-8.0); NEUT % 65.8 % (16.0-70.0); PLATELET COUNT 326 TH/MM3 (150-450); RED BLOOD COUNT 4.63 MIL/MM3 (4.00-5.30); RED CELL DISTRIBUTION WIDTH 13.8 % (11.6-17.2); WHITE BLOOD COUNT 12.3 TH/MM3 (4.0-11.0)
[2016-11-08] MEDS ORDERED: CIPR500T2 PO (12:34)
--- NOTE | 2016-11-08 12:37 | HHI.PR ---
Subjective Remarks Still feels sweaty, no nausea no vomiting. Mild flank pain, improving. Afebrile. Objective Vitals Vital Signs Date Time Temp Pulse Resp B/P Pulse Ox O2 Delivery O2 Flow Rate FiO2 11/08/16 11:06 98.7 79 14 126/80 98 11/08/16 08:31 99.1 62 16 134/65 98 11/08/16 05:05 98.2 64 17 104/51 95 11/08/16 01:04 18 11/07/16 23:45 97.9 57 18 103/57 96 11/07/16 22:49 16 11/07/16 19:41 97.9 62 18 114/64 95 11/07/16 14:56 97.8 64 17 159/71 100 Result Diagram: 11/08/16 1209 11/07/16 1122 Imaging Last Impressions Abdomen/Pelvis CT 11/06/16 [id number] Signed Impressions: Service Date/Time: Sunday, November 06, 2016 18:53 - CONCLUSION: I do not see definite etiology for the patient's hematuria. Nephritis cannot be excluded. There is no perinephric stranding to suggest obstruction. Ang Torres MD FACR Objective Remarks Not in distress, well-nourished, looks stated age PERRL, pink conjunctiva without injection, anicteric Nose without bleeding, airway patent, oropharynx clear Supple neck, no masses or thyromegaly, trachea midline Normal rate and regular rhythm, no murmurs gallops or rubs appreciated. Clear to auscultation and symmetric bilaterally, normal respiratory effort. Mild flank tenderness. No guarding. Extremities without clubbing, cyanosis, or edema. No rash of generalized distribution. Skin is warm and dry. AAO x3, no cranial nerve deficits, moves all 4 extremities, no focal neurologic deficits Normal mood, appropriate affect A/P Problem List: (1) Bilateral flank pain ICD Code: R10.9 Status: Acute (2) Hematuria ICD Code: R31.9 Status: Acute (3) UTI (urinary tract infection) ICD Code: N39.0 Status: Acute Assessment and Plan This is a 31-year-old female with UTI and nephrolithiasis Urinary tract infection secondary to nephrolithiasis-likely passage of stone, continue antibiotics, switch ceftriaxone to ciprofloxacin. Urine culture negative. Continue Percocet for pain. CT scan of the abdomen revealed no stone or no perinephric stranding, likely passage of stone. Leukocytosis improving, blood cultures negative. DVT prophylaxis: SCDs, low risk. Discharge patient to home Condition on discharge: Improved Regular Diet as tolerated Ad Tanja activity Rx written: Ciprofloxacin 500 mg twice a day for 6 days. Follow-up with primary care physician Discharge Planning Discharge today Problem Qualifiers (1) Hematuria: Qualified Code: R31.9 - Hematuria, unspecified type Myles Roman MD Nov 08, 2016 12:37
[2016-11-08] MEDS: oxyCODONE/ACETAMINOPHEN 10 MG/325 MG TAB PO PRN (12:40)
[2016-11-08 12:49] LABS: BICARBONATE 25.7 MEQ/L (21.0-32.0); POTASSIUM 3.9 MEQ/L (3.5-5.1)
== END 2016-11-08 14:13 | disposition home or self-care (01) ==
LOC: NEPD 14:37 → NEDA 20:46 → NEPHCDU 11-07 00:50
PROVIDERS: ADMIT Hospitalist; ATTEND Hospitalist
DX: R10.9 Unspecified abdominal pain (principal); R31.9 Hematuria, unspecified; N39.0 Urinary tract infection, site not specified; R11.0 Nausea; G93.2 Benign intracranial hypertension; I10 Essential (primary) hypertension; J45.909 Unspecified asthma, uncomplicated; F17.200 Nicotine dependence, unspecified, uncomplicated; Z87.442 Personal history of urinary calculi
CPT/HCPCS: 74176; 80048; 80053; 81001; 83690; 84703; 85007; 85025; 85027; 87040; 87086; 96361; 96365; 96375; 99285; C9113; G0378; J0696; J1170; J1650; J2270; J2405; J7030

== ENCOUNTER 2016-11-11 09:11 | Emergency (ER) | payer MEDICAID ==
[~2016-11-11] VITALS: Ht 154.9 cm; Wt 112.0 kg
[~2016-11-11 09:11] MED LIST changes: +CIPR500T2 PO; +OXYC1TAB36 PO; -REGL10TA5 PO; -TRAM50TA PO
[2016-11-11 09:13] VITALS: BP 140/92; PULSE 83; RESP 17; TEMP 98.2; O2SAT 98
--- NOTE | 2016-11-11 09:42 | PD ---
HPI Chief Complaint: Complaint Time Seen by Provider: 09:42 Travel History International Travel<30 days: No Contact w/Intl Traveler<30days: No Traveled to known affect area: No History of Present Illness HPI 31-year-old female came to the emergency room with history of flank pain. Patient was just discharged last Friday from the hospital for flank pain and hematuria. CT scan did not show any ureteral stone but nephrolithiasis. I followed up on the urine culture which just grew mixed krishna. Patient was discharged home on ciprofloxacin and she is here today saying that she has been vomiting and unable to keep the Cipro down. Vital signs are completely stable. She does not appear to be in any distress. PFSH Past Medical History Narrative Medical List of her past medical, surgical, social and family history is reviewed from the nursing note. Hx Anticoagulant Therapy: No Asthma: Yes Diabetes: No Diminished Hearing: No Headaches: Yes Kidney Stones: Yes Neurologic: Yes (IDIOPATHIC INTERCRANIAL HYPERTENSION) Respiratory: Yes (asthma) Immunizations Current: Yes Migraines: Yes ?: Not LMP: 10/09/16 Dilation and Curettage (D&C): Yes (x3 ) Past Surgical History Section: Yes Cholecystectomy: Yes Genitourinary Surgery: Yes (STENTS KIDNEYS) Other Surgery: Yes (L KIDNEY STENTx 6) Social History Alcohol Use: Yes (rarely) Tobacco Use: Yes Substance Use: No Allergies-Medications (Allergen,Severity, Reaction): Coded Allergies: Amoxicillin (Verified Allergy, Severe, Anaphylaxis, 11/11/16) Sulfa (Verified Allergy, Severe, RASH, 11/11/16) Ibuprofen (Verified Allergy, Intermediate, HIVES, FACIAL SWELLING., ) Tramadol (Verified Allergy, Intermediate, HIVES, 11/11/16) hives, sewll up Compazine (Verified Allergy, Unknown, HIVES, 11/11/16) Penicillin (Verified Allergy, Unknown, HIVES, 11/11/16) Imitrex (Verified Adverse Reaction, Severe, VOMITING PASSED OUT, 11/11/16) Comments List of her allergies reviewed from the nursing note. Reported Meds & Prescriptions Reported Meds & Active Scripts Active Oxycodone-Acetaminophen 10-325 mg Tab 1 Tab PO Q6H PRN Reported Zofran Odt (Ondansetron Odt) 4 Mg Tab 4 Mg SL Q12HR PRN Lasix (Furosemide) 40 Mg Tab 40 Mg PO BID Topamax (Topiramate) 50 Mg Tab 50 Mg PO BID Diamox Sequels ER 12 HR (Acetazolamide) 500 Mg Cap 500 Mg PO Q12HR Meclizine (Meclizine HCl) 25 Mg Tab 25 Mg PO DIRECTED PRN Narrative Medication List of her home medications reviewed from the nursing note. Review of Systems Except as stated in HPI: all other systems reviewed are Neg Physical Exam Narrative GENERAL: Awake, alert, obese, no obvious distress SKIN: Focused skin assessment warm/dry. HEAD: Atraumatic. Normocephalic. EYES: Pupils equal and round. No scleral icterus. No injection or drainage. ENT: No nasal bleeding or discharge. Mucous membranes pink and moist. NECK: Trachea midline. No JVD. CARDIOVASCULAR: Regular rate and rhythm. No murmur appreciated. RESPIRATORY: No accessory muscle use. Clear to auscultation. Breath sounds equal bilaterally. GASTROINTESTINAL: Abdomen soft, non-tender, nondistended. Hepatic and splenic margins not palpable. MUSCULOSKELETAL: No obvious deformities. No clubbing. No cyanosis. No edema. NEUROLOGICAL: Awake and alert. No obvious cranial nerve deficits. Motor grossly within normal limits. Normal speech. PSYCHIATRIC: Appropriate mood and affect; insight and judgment normal. Data Data Last Documented VS Orders Morphine Inj (Morphine Inj) (11/11/16 10:00) Ondansetron Inj (Zofran Inj) (11/11/16 10:00) Morphine Inj (Morphine Inj) (11/11/16 10:00) Ondansetron Inj (Zofran Inj) (11/11/16 10:15) [facility] Medical Decision Making Medical Screen Exam Complete: Yes Emergency Medical Condition: Yes Medical Record Reviewed: Yes Differential Diagnosis Chronic pain Narrative Course 9:59 AM looking upon her records patient has been in the emergency room multiple times for flank pain and other pain related complaints. Either she has chronic pain and low tolerance for pain or she is pain medication seeking. Either way from her very recent last admission cultures did not grow anything and hence she does not have UTI or pyelonephritis and CAT scan never showed any ureteral stone. Not have to continue taking the ciprofloxacin based on this since that would just pedis bolus her to C. difficile. I will discharge her home. I've had this discussion with the patient. Her pain will be treated today and she will also get some Zofran IM. Procedures EKG Prior to Arrival: No Diagnosis Primary Impression: Chronic pain disorder Referrals: Primary Care Physician Additional Instructions: He can stop taking ciprofloxacin since your urine culture did not grow any pathogenic bacteria Disposition: DISCHARGE HOME Condition: Stephen Borges MD Nov 11, 2016 09:42 Additional Instructions: He can stop taking ciprofloxacin since your urine culture did not grow any pathogenic bacteria Disposition: DISCHARGE HOME Condition: Stephen Borges MD Nov 11, 2016 09:42
[2016-11-11] MEDS ORDERED: MORPHINE SULFATE 8 MG/ML INJ IM ONE (10:00)
[2016-11-11] MEDS ORDERED: ONDANSETRON HCL 4 MG/2 ML VIAL IV PUSH ONE (10:00)
[2016-11-11] MEDS ORDERED: MORPHINE SULFATE 4 MG/ML INJ IM ONE (10:00)
[2016-11-11] MEDS ORDERED: ONDANSETRON HCL 4 MG/2 ML VIAL IM ONE (10:15)
[2016-11-11 10:53] VITALS: BP 130/77; RESP 18; TEMP 97.8
[2016-11-25] MEDS ORDERED: ACETAMINOPHEN/HYDROcodone 325 MG/5 MG TAB PO ONE (17:15)
== END 2016-11-11 10:53 | disposition home or self-care (01) ==
LOC: NEPD 09:11
DX: G89.29 Other chronic pain (principal); Z72.0 Tobacco use; Z87.448 Personal history of other diseases of urinary system; Z87.09 Personal history of other diseases of the respiratory system; Z86.69 Personal history of other diseases of the nervous system and sense organs
CPT/HCPCS: 96372; 99284; J2270; J2405

== ENCOUNTER 2016-11-12 21:01 | Emergency (ER) | payer MEDICAID ==
[2016-11-12 21:03] VITALS: BP 144/84; PULSE 101; RESP 18; TEMP 98.6; O2SAT 100
--- NOTE | 2016-11-12 22:47 | PD ---
HPI Chief Complaint: Flank/Kidney Pain Time Seen by Provider: 22:32 Travel History International Travel<30 days: No Contact w/Intl Traveler<30days: No Traveled to known affect area: No History of Present Illness HPI The patient is a 31 year old female who presents to the [facility] emergency department with a history of increased pain in left flank with radiation around to the lower abdomen that began at 6 PM. She has had nausea. She had vomiting x2. She denies any fevers. The patient was just recently admitted to the hospital on November 06 related to intractable flank pain. The patient has a history of recurrent kidney stones and ureteral stent placement 6 in the past. Her last stent was placed 2 years ago. She denies having any symptoms currently. She reports that she did pass some stone fragments while in the hospital, however CT scan of the abdomen and pelvis showed no evidence of stones. She reports that yesterday she was also seen in the emergency department after discharge related to vomiting caused by the ciprofloxacin that she was placed on. Her urine culture grew out mixed pathogens and otherwise was negative for UTI, therefore the ciprofloxacin was discontinued. According to [employer]- she last received a prescription for Percocet on November 09, tablets. She last took a percocet for pain at 8 PM along with zofran. Otherwise on review of systems, the patient denies any recent cough, congestion , neck pain, chest pain, shortness of breath, diarrhea, or neurologic symptoms. LMP: 10/14/2016. 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 Hx Anticoagulant Therapy: No Asthma: Yes Diabetes: No Diminished Hearing: No Genitourinary: Yes (KIDNEY STONES) Headaches: Yes Kidney Stones: Yes Neurologic: Yes (IDIOPATHIC INTERCRANIAL HYPERTENSION) Respiratory: Yes (asthma) Immunizations Current: Yes Migraines: Yes ?: Not LMP: 10/14/16 Dilation and Curettage (D&C): Yes (x3 ) Past Surgical History Narrative Surgical The patient's past surgical history is significant for x1, cholecystectomy, ureteral stents placed- last 2 years ago. Surgical History: No Previous Surgery Section: Yes Cholecystectomy: Yes Genitourinary Surgery: Yes (STENTS KIDNEYS) Other Surgery: Yes (L KIDNEY STENTx 6) Social History Alcohol Use: Yes (rarely) Tobacco Use: Yes (1/2 PACK PER DAY) Substance Use: No (PT DENIES) Allergies-Medications (Allergen,Severity, Reaction): Coded Allergies: Amoxicillin (Verified Allergy, Severe, Anaphylaxis, 11/11/16) Sulfa (Verified Allergy, Severe, RASH, 11/11/16) Ibuprofen (Verified Allergy, Intermediate, HIVES, FACIAL SWELLING., ) Tramadol (Verified Allergy, Intermediate, HIVES, 11/11/16) hives, sewll up Compazine (Verified Allergy, Unknown, HIVES, 11/11/16) Penicillin (Verified Allergy, Unknown, HIVES, 11/11/16) Imitrex (Verified Adverse Reaction, Severe, VOMITING PASSED OUT, 11/11/16) Reported Meds & Prescriptions Reported Meds & Active Scripts Active Oxycodone-Acetaminophen 10-325 mg Tab 1 Tab PO Q6H PRN Reported Zofran Odt (Ondansetron Odt) 4 Mg Tab 4 Mg SL Q12HR PRN Lasix (Furosemide) 40 Mg Tab 40 Mg PO BID Topamax (Topiramate) 50 Mg Tab 50 Mg PO BID Diamox Sequels ER 12 HR (Acetazolamide) 500 Mg Cap 500 Mg PO Q12HR Meclizine (Meclizine HCl) 25 Mg Tab 25 Mg PO DIRECTED PRN Review of Systems Except as stated in HPI: all other systems reviewed are Neg General / Constitutional: No: Fever Eyes: No: Visual changes HENT: No: Headaches Cardiovascular: No: Chest Pain or Discomfort Respiratory: No: Shortness of Breath Gastrointestinal: No: Abdominal Pain Genitourinary: Positive: Urgency, Frequency, Dysuria, Flank Pain Musculoskeletal: No: Pain Skin: No Rash Neurologic: No: Weakness Psychiatric: No: Depression Endocrine: No: Polydipsia Hematologic/Lymphatic: No: Easy Bruising Physical Exam Narrative General: The patient is a well-developed well-nourished female in no acute distress. Head and Neck exam: Head is normocephalic atraumatic. Eyes: EOMI, pupils are equal round and reactive to light. Nose: Midline septum with pink mucous membranes Mouth: Dentition unremarkable. Moist mucus membranes. Posterior oropharynx is not erythematous. No tonsillar hypertrophy. Uvula midline. Airway patent. Neck: No palpable lymphadenopathy. No nuchal rigidity. No thyromegaly. Cardiovascular: Regular rate and rhythm without murmurs, gallops, or rubs. Lungs: Clear to auscultation bilaterally. No wheezes, rhonchi, or rales. Abdomen: Soft, without tenderness to palpation in all 4 quadrants of the abdomen. No guarding, rebound, or rigidity. Normal bowel sounds are audible. No tenderness on palpation of McBurney's point. Negative [place] sign. Extremities: No clubbing, cyanosis, or edema. 2+ pulses in all 4 extremities. No calf tenderness on palpation. Back: No spinous process tenderness to palpation. Left-sided CVA tenderness on palpation is noted. Neurologic Exam: Grossly nonfocal. Skin Exam: No rash noted. Intact skin that is warm and dry. Data Data Last Documented VS Vital Signs Date Time Temp Pulse Resp B/P Pulse Ox O2 Delivery O2 Flow Rate FiO2 11/12/16 23:16 58 18 135/90 99 Room Air 11/12/16 21:03 98.6 Orders Complete Blood Count With Diff (11/12/16 22:50) Comprehensive Metabolic Panel (11/12/16 22:50) Lipase (11/12/16 22:50) Urinalysis - C+S If Indicated (11/12/16 22:50) Cath For Specimen (11/12/16 22:50) Iv Access Insert/Monitor (11/12/16 22:50) Ecg Monitoring (11/12/16 22:50) Oximetry (11/12/16 22:50) Sodium Chlor 0.9% 1000 Ml Inj (Ns 1000 M (11/12/16 23:00) Ondansetron Inj (Zofran Inj) (11/12/16 23:00) Urine Culture (11/12/16 23:13) Labs Laboratory Tests Test 11/12/16 11/12/16 11/13/16 23:13 23:23 00:00 Urine Color YELLOW Urine Turbidity HAZY Urine pH 5.5 Urine Specific [place] 1.034 Urine Protein TRACE mg/dL Urine Glucose (UA) NEG mg/dL Urine Ketones NEG mg/dL Urine Occult Blood NEG Urine Nitrite NEG Urine Bilirubin NEG Urine Urobilinogen 2.0 MG/DL Urine Leukocyte Esterase TRACE Urine RBC 2 /hpf Urine WBC 2 /hpf Urine Squamous Epithelial 2 /hpf Cells Urine Bacteria RARE /hpf Urine Mucus MANY /lpf Microscopic Urinalysis Comment CATH-CULTURE IND White Blood Count 11.1 TH/MM3 Red Blood Count 3.98 MIL/MM3 Hemoglobin 11.1 GM/DL Hematocrit 33.1 % Mean Corpuscular Volume 83.1 FL Mean Corpuscular Hemoglobin 27.9 PG Mean Corpuscular Hemoglobin 33.5 % Concent Red Cell Distribution Width 13.8 % Platelet Count 267 TH/MM3 Mean Platelet Volume 8.7 FL Neutrophils (%) (Auto) 45.8 % Lymphocytes (%) (Auto) 42.4 % Monocytes (%) (Auto) 7.7 % Eosinophils (%) (Auto) 3.0 % Basophils (%) (Auto) 1.1 % Neutrophils # (Auto) 5.1 TH/MM3 Lymphocytes # (Auto) 4.7 TH/MM3 Monocytes # (Auto) 0.9 TH/MM3 Eosinophils # (Auto) 0.3 TH/MM3 Basophils # (Auto) 0.1 TH/MM3 CBC Comment DIFF FINAL Differential Comment Sodium Level 143 MEQ/L Potassium Level 3.4 MEQ/L Chloride Level 109 MEQ/L Carbon Dioxide Level 26.2 MEQ/L Anion Gap 8 MEQ/L Blood Urea Nitrogen 14 MG/DL Creatinine 0.62 MG/DL Estimat Glomerular Filtration 112 ML/MIN Rate Random Glucose 97 MG/DL Calcium Level 8.4 MG/DL Total Bilirubin LESS THAN 0.1 MG/DL Aspartate Amino Transf 13 U/L (AST/SGOT) Alanine Aminotransferase 25 U/L (ALT/SGPT) Alkaline Phosphatase 58 U/L Total Protein 6.6 GM/DL Albumin 3.0 GM/DL Lipase 104 U/L [facility] Medical Decision Making Medical Screen Exam Complete: Yes Emergency Medical Condition: Yes Medical Record Reviewed: Yes Differential Diagnosis Pyelonephritis, versus ureteral lithiasis, versus musculoskeletal strain, versus malingering, versus drug-seeking behavior Narrative Course During the course of the patients emergency department visit, the patients history, examination, and differential diagnosis were reviewed with the patient. The patient had IV access obtained and blood work sent for analysis. The patient was placed on a monitor technician with oximetry and blood pressure monitoring. The patient's electronic medical record was reviewed. The patient did not have any laboratory studies done yesterday when she was evaluated for vomiting as a side effect of the ciprofloxacin. The patient's last laboratory studies appear to have been done on November 07. Therefore, I'll laboratory studies were sent along with a catheterized in and out urine specimen. The patient was initially provided normal saline 1 L IV fluid bolus, Zofran 4 mg IV. The patients laboratory studies were reviewed and remarkable for a white count 11.1, hemoglobin 11.1, platelets 267 with a normal differential, CMP is remarkable for potassium of 3.4 which was supplemented orally, chloride 109, calcium 8.4, total bilirubin less than 0.1, AST 13, albumin 3.0, lipase 104, urinalysis done by catheterization shows trace leukocyte Estrace 2 RBCs 2 wbc's rare bacteria many mucus. The patient was instructed to continue her current pain management regimen and follow-up with a local urologist. She is given the name of the urologist on- call, Dr. Kong for follow-up. The patient is resting comfortably and feels better, is alert and in no distress. The patients results and examination findings were discussed with the patient. The repeat examination is unremarkable and benign. The history, exam, diagnostic testing, and current condition do not suggest any significant pathology to warrant further testing, continued ED treatment, admission, or surgical evaluation at this point. The vital signs have been stable. The patient does not have uncontrollable pain, intractable vomiting, or other significant symptoms. The patient's condition is stable and appropriate for discharge. The patient will pursue further outpatient evaluation with a primary care physician or other designated or consulting physician as indicated in the discharge instructions. The patient expressed understanding and was agreeable with this plan. Diagnosis Primary Impression: Left flank pain Referrals: Alexis Kong DO 2 days Patient Instructions: Flank Pain (ED), General Instructions Med/Other Pt SpecificInfo: No Change to Meds Disposition: 01 DISCHARGE HOME Condition: Stable Trish Blanca MD Nov 12, 2016 22:47
[2016-11-12] MEDS ORDERED: SODIUM CHLOR 0.9% 1000 ML INJ 1,000 ML IV ONE (23:00)
[2016-11-12] MEDS ORDERED: ONDANSETRON HCL 4 MG/2 ML VIAL IV ONE (23:00)
[2016-11-12 23:15] VITALS: RESP 18; O2SAT 97
[2016-11-12 23:16] VITALS: BP 135/90; PULSE 58; RESP 18; O2SAT 99
[2016-11-12 23:36] LABS: AUTOMATED NEUTROPHIL # 5.1 TH/MM3 (1.8-7.7); BASOPHIL # 0.1 TH/MM3 (0-0.2); BASOPHIL % 1.1 % (0.0-2.0); EOSINOPHIL # 0.3 TH/MM3 (0-0.4); HEMATOCRIT 33.1 % (35.0-46.0); HEMO FLAGS DIFF FINAL; LYMPH % 42.4 % (9.0-44.0); LYMPHOCYTE # 4.7 TH/MM3 (1.0-4.8); MEAN CELL VOLUME 83.1 FL (80.0-100.0); MEAN CORPUSCULAR HEMOGLOBIN 27.9 PG (27.0-34.0); MEAN CORPUSCULAR HGB CONC 33.5 % (32.0-36.0); MONO % 7.7 % (0.0-8.0); NEUT % 45.8 % (16.0-70.0); PLATELET COUNT 267 TH/MM3 (150-450); RED BLOOD COUNT 3.98 MIL/MM3 (4.00-5.30); RED CELL DISTRIBUTION WIDTH 13.8 % (11.6-17.2); WHITE BLOOD COUNT 11.1 TH/MM3 (4.0-11.0)
[2016-11-12 23:37] LABS: BACTERIA, URINE RARE /hpf; BLOOD, URINE NEG (NEG); GLUCOSE,URINE NEG (NEG); KETONE, URINE NEG (NEG); MUCUS URINE MANY /lpf (OCC); NITRITE,URINE NEG (NEG); PH, URINE 5.5 (5.0-8.5); SQUAMOUS EPITHELIAL CELL URINE 2 /hpf (0-5); URINE COLOR YELLOW (YELLW/STRAW)
[2016-11-12 23:39] LABS: COMMENT (UR) CATH-CULTURE IND; CULTURE IF INDICATED CATH CULTURE IND
[2016-11-13 00:53] LABS: ALT (GPT) 25 U/L (10-53); ANION GAP 8 MEQ/L (5-15); AST (GOT) 13 U/L (15-37); BICARBONATE 26.2 MEQ/L (21.0-32.0); BLOOD UREA NITROGEN 14 MG/DL (7-18); CHLORIDE 109 MEQ/L (98-107); GLOMERULAR FILTRATION RATE 112 ML/MIN (>89); POTASSIUM 3.4 MEQ/L (3.5-5.1); SODIUM (NA) 143 MEQ/L (136-145)
[2016-11-13 00:55] LABS: ALKALINE PHOSPHATASE 58 U/L (45-117); TOTAL BILIRUBIN ADULT LESS THAN 0.1 MG/DL (0.2-1.0)
[2016-11-13] MEDS ORDERED: POTASSIUM CHLORIDE 20 MEQ CONTROLLED RELEASE TAB PO ONE (01:45)
== END 2016-11-13 01:50 | disposition home or self-care (01) ==
LOC: NEPC 21:01
DX: R10.9 Unspecified abdominal pain (principal); R11.10 Vomiting, unspecified; J45.909 Unspecified asthma, uncomplicated; G93.2 Benign intracranial hypertension; F17.200 Nicotine dependence, unspecified, uncomplicated; Z79.899 Other long term (current) drug therapy; Z88.0 Allergy status to penicillin; Z88.2 Allergy status to sulfonamides; Z88.8 Allergy status to other drugs, medicaments and biological substances
CPT/HCPCS: 80053; 81001; 83690; 85025; 87086; 96361; 96374; 99284; J2405; J7030; P9612

== ENCOUNTER 2016-11-24 08:50 | Emergency (ER) | payer MEDICAID ==
[~2016-11-24] VITALS: Ht 154.9 cm; Wt 112.0 kg
[~2016-11-24 08:50] MED LIST changes: -CIPR500T2 PO
[2016-11-24 08:52] VITALS: BP 136/90; PULSE 104; RESP 24; TEMP 98.7; O2SAT 99
--- NOTE | 2016-11-24 10:11 | PD ---
HPI Chief Complaint: Complaint Time Seen by Provider: 09:29 Travel History International Travel<30 days: No Contact w/Intl Traveler<30days: No Traveled to known affect area: No History of Present Illness HPI 31 y/o female presents with not urinating since yesterday morning at about 6 AM. She states she's having lower abdominal pressure. She states that she recently had a kidney stone and this feels similar. She states with her last one she was able to urinate but the pain that is associated with this one feels like a stone. She states a couple years ago she had to have a catheter when it got this bad. She states she has a urologist in [place] and plans to move back up there in 2 weeks. She states she is been down here for about a year after her [id number] got sick. She denies other concurrent complaints. She states her last menstrual cycle was on the of this month. PFSH Past Medical History Hx Anticoagulant Therapy: No Asthma: Yes Diabetes: No Diminished Hearing: No Genitourinary: Yes (KIDNEY STONES) Headaches: Yes Kidney Stones: Yes Neurologic: Yes (IDIOPATHIC INTERCRANIAL HYPERTENSION) Respiratory: Yes (asthma) Immunizations Current: Yes Migraines: Yes Dilation and Curettage (D&C): Yes (x3 ) Past Surgical History Section: Yes Cholecystectomy: Yes Genitourinary Surgery: Yes (STENTS KIDNEYS) Other Surgery: Yes (L KIDNEY STENTx 6) Social History Alcohol Use: Yes (rarely) Tobacco Use: Yes (1/2 PACK PER DAY) Substance Use: No (PT DENIES) Allergies-Medications (Allergen,Severity, Reaction): Coded Allergies: Amoxicillin (Verified Allergy, Severe, Anaphylaxis, 11/24/16) Sulfa (Verified Allergy, Severe, RASH, 11/24/16) Ibuprofen (Verified Allergy, Intermediate, HIVES, FACIAL SWELLING., ) Tramadol (Verified Allergy, Intermediate, HIVES, 11/24/16) hives, sewll up Compazine (Verified Allergy, Unknown, HIVES, 11/24/16) Penicillin (Verified Allergy, Unknown, HIVES, 11/24/16) Imitrex (Verified Adverse Reaction, Severe, VOMITING PASSED OUT, 11/24/16) Reported Meds & Prescriptions Reported Meds & Active Scripts Active Macrodantin (Nitrofurantoin Macrocrystal) 100 Mg Cap 100 Mg PO BID Reported Zofran Odt (Ondansetron Odt) 4 Mg Tab 4 Mg SL Q12HR PRN Lasix (Furosemide) 40 Mg Tab 40 Mg PO BID Topamax (Topiramate) 50 Mg Tab 50 Mg PO BID Diamox Sequels ER 12 HR (Acetazolamide) 500 Mg Cap 500 Mg PO Q12HR Meclizine (Meclizine HCl) 25 Mg Tab 25 Mg PO DIRECTED PRN Review of Systems Except as stated in HPI: all other systems reviewed are Neg Physical Exam Narrative GENERAL: Well-nourished, well-developed patient. Talking on her phone as I entered the room SKIN: Warm and dry. HEAD: Normocephalic and atraumatic. EYES: No injection or drainage. ENT: No nasal drainage noted. NECK: Supple, trachea midline. CARDIOVASCULAR: Regular rate and rhythm RESPIRATORY: No increased effort. No accessory muscle use. GASTROINTESTINAL: Abdomen soft, non-tender, nondistended. EXTREMITIES: No edema. NEUROLOGICAL: Awake and alert. Motor and sensory grossly within normal limits. Normal speech. Data Data Last Documented VS Vital Signs Date Time Temp Pulse Resp B/P Pulse Ox O2 Delivery O2 Flow Rate FiO2 11/24/16 08:52 98.7 104 24 136/90 99 Room Air Orders Complete Blood Count With Diff (11/24/16 09:13) Basic Metabolic Panel (Bmp) (11/24/16 09:13) Urinalysis - C+S If Indicated (11/24/16 09:13) Iv Access Insert/Monitor (11/24/16 09:13) Ecg Monitoring (11/24/16 09:13) Oximetry (11/24/16 09:13) Ed Urine Pregnancytest Poc (11/24/16 09:14) Urinary Catheter Insert/Apply (11/24/16 09:37) Urine Culture (11/24/16 10:05) Ct Abd/Pel W/O Iv Contrast (11/24/16 ) Morphine Inj (Morphine Inj) (11/24/16 11:45) Ondansetron Inj (Zofran Inj) (11/24/16 11:45) Labs Laboratory Tests Test 11/24/16 11/24/16 10:05 11:00 Urine Color YELLOW Urine Turbidity HAZY Urine pH 5.5 Urine Specific [place] 1.021 Urine Protein TRACE mg/dL Urine Glucose (UA) NEG mg/dL Urine Ketones NEG mg/dL Urine Occult Blood NEG Urine Nitrite NEG Urine Bilirubin NEG Urine Urobilinogen LESS THAN 2.0 MG/DL Urine Leukocyte Esterase MOD Urine RBC 4 /hpf Urine WBC 19 /hpf Urine Squamous Epithelial 8 /hpf Cells Urine Calcium Oxalate Crystals RARE /hpf Urine Mucus MOD /lpf Microscopic Urinalysis Comment CULTURE INDICATED White Blood Count 8.6 TH/MM3 Red Blood Count 4.16 MIL/MM3 Hemoglobin 11.5 GM/DL Hematocrit 34.0 % Mean Corpuscular Volume 81.5 FL Mean Corpuscular Hemoglobin 27.6 PG Mean Corpuscular Hemoglobin 33.8 % Concent Red Cell Distribution Width 13.4 % Platelet Count 247 TH/MM3 Mean Platelet Volume 8.3 FL Neutrophils (%) (Auto) 50.9 % Lymphocytes (%) (Auto) 36.0 % Monocytes (%) (Auto) 9.7 % Eosinophils (%) (Auto) 3.0 % Basophils (%) (Auto) 0.4 % Neutrophils # (Auto) 4.4 TH/MM3 Lymphocytes # (Auto) 3.1 TH/MM3 Monocytes # (Auto) 0.8 TH/MM3 Eosinophils # (Auto) 0.3 TH/MM3 Basophils # (Auto) 0.0 TH/MM3 CBC Comment DIFF FINAL Differential Comment Sodium Level 138 MEQ/L Potassium Level 3.6 MEQ/L Chloride Level 105 MEQ/L Carbon Dioxide Level 26.8 MEQ/L Anion Gap 6 MEQ/L Blood Urea Nitrogen 9 MG/DL Creatinine 0.50 MG/DL Estimat Glomerular Filtration 144 ML/MIN Rate Random Glucose 88 MG/DL Calcium Level 8.6 MG/DL [facility] Medical Decision Making Medical Screen Exam Complete: Yes Emergency Medical Condition: Yes Medical Record Reviewed: Yes (past history confirmed) Interpretation(s) CBC & BMP Diagram 11/24/16 11:00 Last 24 hours Impressions Abdomen/Pelvis CT 11/24/16 0000 Signed Impressions: Service Date/Time: Thursday, November 24, 2016 11:53 - CONCLUSION: 1. Slight prominence of the left ovary measuring 4.0 x 2.9 cm. 2. 4 mm calcified nonobstructing lower pole right renal calculus. 3. No acute abdominal process. Farooq Hallman MD ua with uti Differential Diagnosis UTI, stone, retention, Narrative Course Will check lab work, urinalysis and reevaluate beta is negative, still with pain after catheter, ct added on and pain meds given Patient denies any new complaints, all questions answered. Patient knows that follow up is incumbent on them and to return to the emergency room immediately if new or worsening symptoms develop. Patient given strict return precautions, vitals reviewed and are normal, agrees to further workup as an outpatient with cabello. no emesis here Diagnosis Primary Impression: Urinary retention Additional Impression: UTI (urinary tract infection) Qualified Code: N39.0 - Urinary tract infection without hematuria, site unspecified Patient Instructions: General Instructions Additional Instructions: tylenol as needed for pain, follow with urology this week, return as needed Med/Other Pt SpecificInfo: Prescription(s) given Scripts Nitrofurantoin Macrocrystal (Macrodantin)100 Mg [id number] Mg PO BID #7 CAP Prov:Betty Medina MD 11/24/16 Disposition: 01 DISCHARGE HOME Condition: Stable Betty Medina MD Nov 24, 2016 10:11
[2016-11-24 10:36] LABS: BLOOD, URINE NEG (NEG); CALCIUM OXALATE CRYSTALS,URINE RARE /hpf; COMMENT (UR) CULTURE INDICATED; CULTURE IF INDICATED CULTURE INDICATED; GLUCOSE,URINE NEG (NEG); KETONE, URINE NEG (NEG); MUCUS URINE MOD /lpf (OCC); NITRITE,URINE NEG (NEG); PH, URINE 5.5 (5.0-8.5); SQUAMOUS EPITHELIAL CELL URINE 8 /hpf (0-5); URINE COLOR YELLOW (YELLW/STRAW)
[2016-11-24] MEDS ORDERED: ONDANSETRON HCL 4 MG/2 ML VIAL IV PUSH ONE (11:45)
[2016-11-24] MEDS ORDERED: MORPHINE SULFATE 4 MG/ML INJ IV PUSH ONE (11:45)
[2016-11-24 12:02] LABS: AUTOMATED NEUTROPHIL # 4.4 TH/MM3 (1.8-7.7); BASOPHIL % 0.4 % (0.0-2.0); EOSINOPHIL # 0.3 TH/MM3 (0-0.4); HEMO FLAGS DIFF FINAL; LYMPHOCYTE # 3.1 TH/MM3 (1.0-4.8); MEAN CELL VOLUME 81.5 FL (80.0-100.0); MEAN CORPUSCULAR HEMOGLOBIN 27.6 PG (27.0-34.0); MEAN CORPUSCULAR HGB CONC 33.8 % (32.0-36.0); MONO % 9.7 % (0.0-8.0); NEUT % 50.9 % (16.0-70.0); PLATELET COUNT 247 TH/MM3 (150-450); RED BLOOD COUNT 4.16 MIL/MM3 (4.00-5.30); RED CELL DISTRIBUTION WIDTH 13.4 % (11.6-17.2); WHITE BLOOD COUNT 8.6 TH/MM3 (4.0-11.0)
--- NOTE | 2016-11-24 12:21 | RADRPT ---
EXAM DATE/TIME: 11/24/2016 11:53 [facility] COMPARISON: CT ABDOMEN & PELVIS W/O CONTRAST, November 06, 2016, 18:53. INDICATIONS : Unable to urinate for 72 hours, left sided pain. ORAL CONTRAST: No oral contrast ingested. RADIATION DOSE: 8.46 CTDIvol (mGy) MEDICAL HISTORY : Renal calculi. Stents x 6. SURGICAL HISTORY : Cholecystectomy. Lithrotripsy ENCOUNTER: Initial ACUITY: 3 days PAIN SCALE: 6/10 LOCATION: Left flank TECHNIQUE: Volumetric scanning of the abdomen and pelvis was performed. Using automated exposure control and ad justment of the mA and/or kV according to patient size, radiation dose was kept as low as reasonably achievable to obtain optimal diagnostic quality images. DICOM format image data is available electro nically for review and comparison. FINDINGS: LOWER LUNGS: The visualized lower lungs are clear. LIVER: Homogeneous density without lesion. There is no dilation of the biliary tree. No calcified gallston es. Status post cholecystectomy. SPLEEN: Normal size without lesion. PANCREAS: Within normal limits. KIDNEYS: Normal in size and shape. There is no mass or hydronephrosis. There is a tiny 4 mm calcified nonobst ructing lower pole right renal calculus. ADRENAL GLANDS: Within normal limits. VASCULAR: There is no aortic aneurysm. BOWEL/MESENTERY: The stomach, small bowel, and colon demonstrate no acute abnormality. There is no free intraperitone al air or fluid. The appendix is normal. ABDOMINAL WALL: Within normal limits. RETROPERITONEUM: There is no lymphadenopathy. BLADDER: No wall thickening or mass. REPRODUCTIVE: There is slight prominence of the left ovary which measures 4.0 x 2.9 cm. No free fluid within the cu l-de-sac is noted. The uterus is unremarkable. INGUINAL: There is no lymphadenopathy or hernia. MUSCULOSKELETAL: Within normal limits for patient age. CONCLUSION: 1. Slight prominence of the left ovary measuring 4.0 x 2.9 cm. 2. 4 mm calcified nonobstructing lower pole right renal calculus. 3. No acute abdominal process. Farooq Hallman MD on November 24, 2016 at 12:05 Board Certified Radiologist. This report was verified electronically.
[2016-11-24 12:37] LABS: BICARBONATE 26.8 MEQ/L (21.0-32.0); POTASSIUM 3.6 MEQ/L (3.5-5.1)
[2016-11-24] MEDS ORDERED: MACR100C3 PO (12:46)
== END 2016-11-24 13:40 | disposition home or self-care (01) ==
LOC: NEPE 08:50
DX: N39.0 Urinary tract infection, site not specified (principal); B96.89 Other specified bacterial agents as the cause of diseases classified elsewhere; F17.200 Nicotine dependence, unspecified, uncomplicated
CPT/HCPCS: 74176; 80048; 81001; 84703; 85025; 87086; 96374; 96375; 99285; J2270; J2405; P9612

== ENCOUNTER 2016-11-25 13:56 | Emergency (ER) | payer MEDICAID ==
[~2016-11-25] VITALS: Ht 154.9 cm; Wt 115.0 kg
[~2016-11-25 13:56] MED LIST changes: +MACR100C3 PO
[2016-11-25 13:57] VITALS: BP 180/93; PULSE 104; RESP 20; TEMP 98.8; O2SAT 98
--- NOTE | 2016-11-25 14:13 | PD ---
Physical Exam Time Seen by Provider: 14:12 Narrative 31 y/o female here for evaluation of worseing dysuria, urinary hesitancy, nausea and vomiting. Seen here yesterday. Started on macrobid. Vital signs reviewed. Seen at triage desk. Awaiting bed placement. Data Data Last Documented VS Vital Signs Date Time Temp Pulse Resp B/P Pulse Ox O2 Delivery O2 Flow Rate FiO2 11/25/16 13:57 98.8 104 20 180/93 98 MDM Medical Record Reviewed: Yes Supervised Visit with SEB: Vincenzo Sanchez Nov 25, 2016 14:13
--- NOTE | 2016-11-25 16:42 | PD ---
HPI Chief Complaint: Complaint Time Seen by Provider: 16:29 Travel History International Travel<30 days: No Contact w/Intl Traveler<30days: No Traveled to known affect area: No History of Present Illness HPI DELETE. PFSH Past Medical History Hx Anticoagulant Therapy: No Asthma: Yes Diabetes: No Diminished Hearing: No Genitourinary: Yes (KIDNEY STONES) Headaches: Yes Kidney Stones: Yes Neurologic: Yes (IDIOPATHIC INTERCRANIAL HYPERTENSION) Respiratory: Yes (asthma) Immunizations Current: Yes Migraines: Yes Tetanus Vaccination: < 5 Years ?: Not LMP: 11/15/16 : 8 Para: 1 Miscarriage: 1 Dilation and Curettage (D&C): Yes (x3 ) Past Surgical History Section: Yes Cholecystectomy: Yes Genitourinary Surgery: Yes (STENTS KIDNEYS, LITHOTRIPSIES) Other Surgery: Yes (L KIDNEY STENTx 6) Social History Alcohol Use: Yes (rarely) Tobacco Use: No Substance Use: No (PT DENIES) Allergies-Medications (Allergen,Severity, Reaction): Coded Allergies: Amoxicillin (Verified Allergy, Severe, Anaphylaxis, 11/25/16) Sulfa (Verified Allergy, Severe, RASH, 11/25/16) Ibuprofen (Verified Allergy, Intermediate, HIVES, FACIAL SWELLING., ) Tramadol (Verified Allergy, Intermediate, HIVES, 11/25/16) hives, sewll up Compazine (Verified Allergy, Unknown, HIVES, 11/25/16) Latex (Verified Allergy, Unknown, 11/27/16) Penicillin (Verified Allergy, Unknown, HIVES, 11/25/16) Imitrex (Verified Adverse Reaction, Severe, VOMITING PASSED OUT, 11/25/16) Reported Meds & Prescriptions Reported Meds & Active Scripts Active Prednisone 20 Mg Tab 60 Mg PO DAILY 5 Days Macrodantin (Nitrofurantoin Macrocrystal) 100 Mg Cap 100 Mg PO BID Reported Zofran Odt (Ondansetron Odt) 4 Mg Tab 4 Mg SL Q12HR PRN Lasix (Furosemide) 40 Mg Tab 40 Mg PO BID Topamax (Topiramate) 50 Mg Tab 50 Mg PO BID Diamox Sequels ER 12 HR (Acetazolamide) 500 Mg Cap 500 Mg PO Q12HR Meclizine (Meclizine HCl) 25 Mg Tab 25 Mg PO DIRECTED PRN Data Data Last Documented VS Vital Signs Date Time Temp Pulse Resp B/P Pulse Ox O2 Delivery O2 Flow Rate FiO2 11/25/16 18:09 65 18 134/84 100 Room Air 11/25/16 13:57 98.8 Orders Ed Poc Ultrasound (11/25/16 ) Cath For Specimen (11/25/16 16:40) Urinalysis - C+S If Indicated (11/25/16 16:40) Acetamin-Hydrocod 325-5 Mg ([place] 5-325 (11/25/16 18:00) Labs Laboratory Tests Test 11/25/16 17:10 Urine Color YELLOW Urine Turbidity CLEAR Urine pH 8.0 Urine Specific [place] 1.015 Urine Protein NEG mg/dL Urine Glucose (UA) NEG mg/dL Urine Ketones NEG mg/dL Urine Occult Blood NEG Urine Nitrite NEG Urine Bilirubin NEG Urine Urobilinogen 2.0 MG/DL Urine Leukocyte Esterase NEG Urine RBC 1 /hpf Urine WBC 1 /hpf Urine Squamous Epithelial <1 /hpf Cells Urine Mucus FEW /lpf Microscopic Urinalysis Comment CATH-CULT NOT IND Farooq Mcdaniel MD Nov 25, 2016 16:42 Farooq Mcdaniel MD Nov 25, 2016 16:42
--- NOTE | 2016-11-25 17:01 | PD ---
HPI Chief Complaint: Complaint Time Seen by Provider: 16:29 Travel History International Travel<30 days: No Contact w/Intl Traveler<30days: No Traveled to known affect area: No History of Present Illness HPI Patient is a 31-year-old female presents emergency department for her fourth evaluation for dysuria and left flank pain. This is her fourth evaluation this month. She states she was here yesterday and was diagnosed urinary tract infection started on Macrobid. She's also been on clindamycin this month but failed to tolerate that secondary to nausea. Patient states that she does have a history of kidney stones needing stents in the past. She did have a CAT scan of her abdomen yesterday which did not show any kidney stones. She denies any nausea any vomiting. She states her pain is fairly intense and she's been taking Tylenol at home. She has multiple pain and nausea medication allergies. She denies any fever denies any diarrhea denies any vaginal bleeding or vaginal discharge. PFSH Past Medical History Hx Anticoagulant Therapy: No Asthma: Yes Diabetes: No Diminished Hearing: No Genitourinary: Yes (KIDNEY STONES) Headaches: Yes Kidney Stones: Yes Neurologic: Yes (IDIOPATHIC INTERCRANIAL HYPERTENSION) Respiratory: Yes (asthma) Immunizations Current: Yes Migraines: Yes Tetanus Vaccination: < 5 Years ?: Not LMP: 11/15/16 : 8 Para: 1 Miscarriage: 1 Dilation and Curettage (D&C): Yes (x3 ) Past Surgical History Section: Yes Cholecystectomy: Yes Genitourinary Surgery: Yes (STENTS KIDNEYS, LITHOTRIPSIES) Other Surgery: Yes (L KIDNEY STENTx 6) Social History Alcohol Use: Yes (rarely) Tobacco Use: No Substance Use: No (PT DENIES) Allergies-Medications (Allergen,Severity, Reaction): Coded Allergies: Amoxicillin (Verified Allergy, Severe, Anaphylaxis, 11/25/16) Sulfa (Verified Allergy, Severe, RASH, 11/25/16) Ibuprofen (Verified Allergy, Intermediate, HIVES, FACIAL SWELLING., ) Tramadol (Verified Allergy, Intermediate, HIVES, 11/25/16) hives, sewll up Compazine (Verified Allergy, Unknown, HIVES, 11/25/16) Penicillin (Verified Allergy, Unknown, HIVES, 11/25/16) Imitrex (Verified Adverse Reaction, Severe, VOMITING PASSED OUT, 11/25/16) Reported Meds & Prescriptions Reported Meds & Active Scripts Active Macrodantin (Nitrofurantoin Macrocrystal) 100 Mg Cap 100 Mg PO BID Reported Zofran Odt (Ondansetron Odt) 4 Mg Tab 4 Mg SL Q12HR PRN Lasix (Furosemide) 40 Mg Tab 40 Mg PO BID Topamax (Topiramate) 50 Mg Tab 50 Mg PO BID Diamox Sequels ER 12 HR (Acetazolamide) 500 Mg Cap 500 Mg PO Q12HR Meclizine (Meclizine HCl) 25 Mg Tab 25 Mg PO DIRECTED PRN Review of Systems Except as stated in HPI: all other systems reviewed are Neg Physical Exam Narrative GENERAL: Well-developed well-nourished, overweight but in no obvious distress. SKIN: Focused skin assessment warm/dry. HEAD: Atraumatic. Normocephalic. EYES: Pupils equal and round. No scleral icterus. No injection or drainage. ENT: No nasal bleeding or discharge. Mucous membranes pink and moist. NECK: Trachea midline. No JVD. CARDIOVASCULAR: Regular rate and rhythm. No murmur appreciated. RESPIRATORY: No accessory muscle use. Clear to auscultation. Breath sounds equal bilaterally. GASTROINTESTINAL: Abdomen soft, non-tender, nondistended. Hepatic and splenic margins not palpable. Minimal left CVA tenderness. No abdominal tenderness. MUSCULOSKELETAL: No obvious deformities. No clubbing. No cyanosis. No edema. NEUROLOGICAL: Awake and alert. No obvious cranial nerve deficits. Motor grossly within normal limits. Normal speech. PSYCHIATRIC: Appropriate mood and affect; insight and judgment normal. Data Data Last Documented VS Vital Signs Date Time Temp Pulse Resp B/P Pulse Ox O2 Delivery O2 Flow Rate FiO2 11/25/16 13:57 98.8 104 20 180/93 98 Orders Ed Poc Ultrasound (11/25/16 ) Cath For Specimen (11/25/16 16:40) Urinalysis - C+S If Indicated (11/25/16 16:40) MDM Medical Decision Making Medical Screen Exam Complete: Yes Emergency Medical Condition: Yes Differential Diagnosis Pyelonephritis seems unlikely, kidney stone seems unlikely as she just had a CAT scan yesterday which was negative, interstitial cystitis, urinary tract infection, chronic flank pain. Narrative Course Patient roomed in emergency department, review of her labs yesterday showed no Sirs criteria, she did have large leukocyte esterase and a contaminated urine sample. Her urine culture shows immature growth. Her urine culture from earlier this month showed streptococcal viridans. CT the abdomen performed yesterday did show some prominence of the left ovary and cyst, patient on my exam today has no abdominal tenderness. Patient appears well, concerns for interstitial cystitis. She will ultimately need to follow with urologist. She will be given pain medicine in the emergency department. Nonnarcotic regimen suggested for at home. A repeat UA has been sent. Skin his with Dr. Young at change shift to follow-up the UA disposition the patient properly. Straight urinary catheter was introduced and yielded 350 cc of clear urine. Procedures Procedure Narrative Bedside ultrasound abdomen shows approximately 300 cc of urine in the bladder. No free fluid. Diagnosis Primary Impression: Flank pain Additional Impression: Left flank pain Farooq Mcdaniel MD Nov 25, 2016 17:01
--- NOTE | 2016-11-25 17:41 | PD ---
Physical Exam Date Seen by Provider: Nov 25, 2016 Time Seen by Provider: 17:39 Narrative The patient is a 31-year-old female was initially evaluated by the previous physician, Dr. Mcdaniel. Please refer to the initial history, physical, diagnostic evaluation, and treatment modality plan. Data Data Last Documented VS Vital Signs Date Time Temp Pulse Resp B/P Pulse Ox O2 Delivery O2 Flow Rate FiO2 11/25/16 13:57 98.8 104 20 180/93 98 Orders Ed Poc Ultrasound (11/25/16 ) Cath For Specimen (11/25/16 16:40) Urinalysis - C+S If Indicated (11/25/16 16:40) Labs Laboratory Tests Test 11/25/16 17:10 Urine Color YELLOW Urine Turbidity CLEAR Urine pH 8.0 Urine Specific [place] 1.015 Urine Protein NEG mg/dL Urine Glucose (UA) NEG mg/dL Urine Ketones NEG mg/dL Urine Occult Blood NEG Urine Nitrite NEG Urine Bilirubin NEG Urine Urobilinogen 2.0 MG/DL Urine Leukocyte Esterase NEG Urine RBC 1 /hpf Urine WBC 1 /hpf Urine Squamous Epithelial <1 /hpf Cells Urine Mucus FEW /lpf Microscopic Urinalysis Comment CATH-CULT NOT IND [facility] Medical Record Reviewed: Yes Supervised Visit with SEB: No Interpretation(s) Laboratory Tests Test 11/25/16 17:10 Urine Color YELLOW Urine Turbidity CLEAR Urine pH 8.0 Urine Specific [place] 1.015 Urine Protein NEG mg/dL Urine Glucose (UA) NEG mg/dL Urine Ketones NEG mg/dL Urine Occult Blood NEG Urine Nitrite NEG Urine Bilirubin NEG Urine Urobilinogen 2.0 MG/DL Urine Leukocyte Esterase NEG Urine RBC 1 /hpf Urine WBC 1 /hpf Urine Squamous Epithelial <1 /hpf Cells Urine Mucus FEW /lpf Microscopic Urinalysis Comment CATH-CULT NOT IND Differential Diagnosis Differential diagnosis includes nephrolithiasis, hydronephrosis, cystitis, vaginitis, PID, cervicitis, interstitial cystitis, chronic pain disorder. Narrative Course The patient was initially evaluated by the previous physician, Dr. Mcdaniel. Please refer to initial history, physical, diagnostic evaluation, and treatment modality plan. The patient was signed out at 5 PM with UA pending. The patient has 5 previous visits in October 2016 for similar symptoms. The patient is undergone 2 previous [address]s of the abdomen and pelvis as well as multiple workups including blood and urine. The patient's urine on a previous visit grew strep viridians, otherwise was unremarkable. The patient may have a chronic pain disorder such as interstitial cystitis, is advised to follow-up with urology. UA today is unremarkable, the patient was administered Lebeau 5 mg /325 mg orally for pain. Patient is stable for outpatient follow-up. Diagnosis Primary Impression: Flank pain Additional Impression: Left flank pain Patient Instructions: General Instructions Additional Instruction: Follow-up with urology, YOU may benefit from outpatient cystoscopy for evaluation of interstitial cystitis. Continue Macrobid as previously directed. Med/Other Pt SpecificInfo: No Change to Meds Disposition: DISCHARGE HOME Condition: Stable Eduard Young MD Nov 25, 2016 17:41
[2016-11-25 17:49] LABS: BLOOD, URINE NEG (NEG); COMMENT (UR) CATH-CULT NOT IND; CULTURE IF INDICATED CATH CULTURE NOT IND; GLUCOSE,URINE NEG (NEG); KETONE, URINE NEG (NEG); MUCUS URINE FEW /lpf (OCC); NITRITE,URINE NEG (NEG); SQUAMOUS EPITHELIAL CELL URINE <1 /hpf (0-5); URINE COLOR YELLOW (YELLW/STRAW)
[2016-11-25] MEDS ORDERED: ACETAMINOPHEN/HYDROcodone 325 MG/5 MG TAB PO ONE (18:00)
[2016-11-25 18:09] VITALS: BP 134/84; PULSE 65; RESP 18; O2SAT 100
== END 2016-11-25 18:42 | disposition home or self-care (01) ==
LOC: NEPD 13:56
DX: R10.9 Unspecified abdominal pain (principal)
CPT/HCPCS: 81001; 99283; P9612

== ENCOUNTER 2016-11-27 14:42 | Emergency (ER) | payer SELFPAY ==
[~2016-11-27 14:42] MED LIST changes: -OXYC1TAB36 PO
[2016-11-27 14:44] VITALS: BP 160/89; PULSE 71; RESP 16; TEMP 98.5; O2SAT 100
--- NOTE | 2016-11-27 14:49 | PD ---
Physical Exam Time Seen by Provider: 14:46 Narrative 31yo F c/o no urination x 26+ hours. Was here 2-3 weeks ago and was admitted for pyelonephritis and kidney stones. Urine was drained November 24 and here at [place] and she is continuing to have no urine output. Subjective fever. + vomiting last night. Patient seen in triage. VS reviewed. Patient awaiting bed placement. Data Data Last Documented VS Vital Signs Date Time Temp Pulse Resp B/P Pulse Ox O2 Delivery O2 Flow Rate FiO2 11/27/16 14:44 98.5 71 16 160/89 100 MDM Supervised Visit with SEB: Naa Murphy Nov 27, 2016 14:49
--- NOTE | 2016-11-27 17:58 | PD ---
HPI Chief Complaint: Complaint Time Seen by Provider: 17:45 Travel History International Travel<30 days: No Contact w/Intl Traveler<30days: No Traveled to known affect area: No History of Present Illness HPI Patient is a 31-year-old female known to me from a visit yesterday. Patient states that she continues to have suprapubic pain and urinary urgency and states now she can't urinate. The patient has been here 4 times in the past week and 6 times in the past month for very similar complaints, she's had CAT scans and multiple other workups. Patient states nothing changed except now she feels like she can't urinate. The patient did have nursing attempted to place a catheter in triage and was unsuccessful. She denies any swelling of her introitus. Denies any fevers denies any nausea vomiting vaginal discharge. PFSH Past Medical History Hx Anticoagulant Therapy: No Asthma: Yes Diabetes: No Diminished Hearing: No Genitourinary: Yes (KIDNEY STONES) Headaches: Yes Kidney Stones: Yes Neurologic: Yes (IDIOPATHIC INTERCRANIAL HYPERTENSION) Respiratory: Yes (asthma) Immunizations Current: Yes Migraines: Yes : 8 Para: 1 Miscarriage: 1 Dilation and Curettage (D&C): Yes (x3 ) Past Surgical History Section: Yes Cholecystectomy: Yes Genitourinary Surgery: Yes (STENTS KIDNEYS, LITHOTRIPSIES) Other Surgery: Yes (L KIDNEY STENTx 6) Social History Alcohol Use: Yes (rarely) Tobacco Use: No Substance Use: No (PT DENIES) Allergies-Medications (Allergen,Severity, Reaction): Coded Allergies: Amoxicillin (Verified Allergy, Severe, Anaphylaxis, 11/25/16) Sulfa (Verified Allergy, Severe, RASH, 11/25/16) Ibuprofen (Verified Allergy, Intermediate, HIVES, FACIAL SWELLING., ) Tramadol (Verified Allergy, Intermediate, HIVES, 11/25/16) hives, sewll up Compazine (Verified Allergy, Unknown, HIVES, 11/25/16) Latex (Verified Allergy, Unknown, 11/27/16) Penicillin (Verified Allergy, Unknown, HIVES, 11/25/16) Imitrex (Verified Adverse Reaction, Severe, VOMITING PASSED OUT, 11/25/16) Reported Meds & Prescriptions Reported Meds & Active Scripts Active Prednisone 20 Mg Tab 60 Mg PO DAILY 5 Days Macrodantin (Nitrofurantoin Macrocrystal) 100 Mg Cap 100 Mg PO BID Reported Zofran Odt (Ondansetron Odt) 4 Mg Tab 4 Mg SL Q12HR PRN Lasix (Furosemide) 40 Mg Tab 40 Mg PO BID Topamax (Topiramate) 50 Mg Tab 50 Mg PO BID Diamox Sequels ER 12 HR (Acetazolamide) 500 Mg Cap 500 Mg PO Q12HR Meclizine (Meclizine HCl) 25 Mg Tab 25 Mg PO DIRECTED PRN Review of Systems Except as stated in HPI: all other systems reviewed are Neg Physical Exam Narrative GENERAL: Well-nourished, well-developed patient. SKIN: Focused skin assessment warm/dry. HEAD: Normocephalic. EYES: No scleral icterus. No injection or drainage. NECK: Supple, trachea midline. No JVD or lymphadenopathy. CARDIOVASCULAR: Regular rate and rhythm without murmurs, gallops, or rubs. RESPIRATORY: Breath sounds equal bilaterally. No accessory muscle use. GASTROINTESTINAL: Abdomen soft, non-tender, nondistended. MUSCULOSKELETAL: No cyanosis, or edema. BACK: Nontender without obvious deformity. No CVA tenderness. Data Data Last Documented VS Vital Signs Date Time Temp Pulse Resp B/P Pulse Ox O2 Delivery O2 Flow Rate FiO2 11/27/16 14:44 98.5 71 16 160/89 100 Orders Urinalysis - C+S If Indicated (11/27/16 14:49) Cath For Specimen (11/27/16 14:49) Ed Urine Pregnancytest Poc (11/27/16 14:50) Ed Poc Ultrasound (11/27/16 ) Labs Laboratory Tests Test 11/27/16 19:20 Urine Color YELLOW Urine Turbidity CLEAR Urine pH 7.0 Urine Specific [place] 1.021 Urine Protein NEG mg/dL Urine Glucose (UA) NEG mg/dL Urine Ketones NEG mg/dL Urine Occult Blood NEG Urine Nitrite NEG Urine Bilirubin NEG Urine Urobilinogen LESS THAN 2.0 MG/DL Urine Leukocyte Esterase NEG Urine RBC 1 /hpf Urine WBC 2 /hpf Urine Mucus FEW /lpf Microscopic Urinalysis Comment CATH-CULT NOT IND MDM Medical Decision Making Medical Screen Exam Complete: Yes Emergency Medical Condition: Yes Differential Diagnosis Interstitial cystitis, urinary urgency, reaction to latex. Narrative Course 31-year-old female presents emergency Department with urinary retention and urgency. She's had 2 urine cultures this month all of which were vaginally contaminated. She has had some catheterization this month and she informs me that she is latex allergic which was previously unknown and are documentation. Is possible that this may be exacerbating her underlying condition. I don't think that the catheterization as her root cause of her urinary symptoms. She was catheterized with a nonlatex catheter her bladder was drained. I recommended that given her repeat catheterizations she should consider having a Ochoa bag left in place and she declines this at this time. Her catheter was removed. I discussed that at this time she really needs to follow up with a urologist. We'll place on steroids for possible urinary retention secondary to some mild tissue edema from latex allergy. Latex is been added to her allergy list. She stable for discharge. Diagnosis Primary Impression: Urinary retention Additional Impression: Urinary urgency Referrals: Cosme Mayen MD Additional Instructions: Highly recommend following up with urologist within a week for evaluation. We are always lacunar return to the emergency department for a trial of voiding after a week. Med/Other Pt SpecificInfo: Prescription(s) given Scripts Prednisone 20 Mg Tab60 Mg PO DAILY 5 Days Ref 0 Prov:Farooq Mcdaniel MD 11/27/16 Disposition: 01 DISCHARGE HOME Condition: Stable Farooq Mcdaniel MD Nov 27, 2016 17:58
[2016-11-27] MEDS ORDERED: PRED20 PO (18:32)
[2016-11-27 20:10] LABS: BLOOD, URINE NEG (NEG); GLUCOSE,URINE NEG (NEG); KETONE, URINE NEG (NEG); MUCUS URINE FEW /lpf (OCC); NITRITE,URINE NEG (NEG); URINE COLOR YELLOW (YELLW/STRAW)
[2016-11-27 20:14] LABS: COMMENT (UR) CATH-CULT NOT IND; CULTURE IF INDICATED CATH CULTURE NOT IND
== END 2016-11-27 19:25 | disposition home or self-care (01) ==
LOC: NEPD 14:42
DX: R33.9 Retention of urine, unspecified (principal); R39.15 Urgency of urination; Z87.442 Personal history of urinary calculi; I10 Essential (primary) hypertension; Z88.0 Allergy status to penicillin
CPT/HCPCS: 81001; 84703; 99284; P9612

== ENCOUNTER 2016-11-30 20:23 | Observation (INO) | payer MEDICAID ==
[~2016-11-30] VITALS: Ht 152.4 cm; Wt 115.0 kg
[~2016-11-30 20:23] MED LIST changes: +PRED20 PO
[2016-11-30 20:25] VITALS: BP 137/94; PULSE 110; RESP 16; TEMP 97.3; O2SAT 100
[2016-11-30] MEDS ORDERED: acetaZOLAMIDE 250 MG TAB PO ONE (21:45)
[2016-11-30] MEDS ORDERED: diphenhydrAMINE HCL 50 MG/ML VIAL IVP ONE (21:45)
[2016-11-30] MEDS ORDERED: MORPHINE SULFATE 4 MG/ML INJ IV PUSH ONE ×2 (21:45→23:45)
[2016-11-30] MEDS ORDERED: SODIUM CHLORIDE 0.9% FLUSH 10 ML FLUSH IVF PRN (21:45)
[2016-11-30] MEDS ORDERED: METOCLOPRAMIDE HCL 10 MG/2 ML VIAL IVP ONE (21:45)
[2016-11-30 21:55] VITALS: O2SAT 100
[2016-11-30 22:58] VITALS: BP 147/97
[2016-11-30] MEDS ORDERED: SODIUM CHLOR 0.9% 1000 ML INJ 1,000 ML IV SCH (23:33)
--- NOTE | 2016-11-30 23:39 | PD ---
HPI Chief Complaint: Headache Time Seen by Provider: 21:37 Travel History International Travel<30 days: No Contact w/Intl Traveler<30days: No Traveled to known affect area: No History of Present Illness HPI Patient is a 31-year-old female with history of pseudotumor cerebri who presents the emergency department with complaint of headache. Patient states that she has had a progressively building headache over the course of the last 1 -2 days. Describes this as a throbbing sensation throughout the headache, worse in the retro-orbital region. She notes associated nausea, no vomiting. She has had some visual changes, states that she feels like her depth perception is off, and has had some flashers and floaters. Patient states that this headache is typical for her pseudotumor. She took an extra dose of her Diamox at home, as well as Reglan. This did not her improve her headache, prompting her ED visit. She is followed by Dr. Haddad of neurology. She does also take Topamax chronically for headache prevention. PFSH Past Medical History Hx Anticoagulant Therapy: No Asthma: Yes Diabetes: No Diminished Hearing: No Genitourinary: Yes (KIDNEY STONES) Headaches: Yes Kidney Stones: Yes Neurologic: Yes (IDIOPATHIC INTERCRANIAL HYPERTENSION) Respiratory: Yes (asthma) Immunizations Current: Yes Migraines: Yes Tetanus Vaccination: Unknown Influenza Vaccination: No ?: Not : 8 Para: 1 Miscarriage: 1 Dilation and Curettage (D&C): Yes (x3 ) Past Surgical History Section: Yes Cholecystectomy: Yes Genitourinary Surgery: Yes (STENTS KIDNEYS, LITHOTRIPSIES) Other Surgery: Yes (L KIDNEY STENTx 6) Social History Alcohol Use: Yes (rarely) Tobacco Use: No Substance Use: No (PT DENIES) Allergies-Medications (Allergen,Severity, Reaction): Coded Allergies: Amoxicillin (Verified Allergy, Severe, Anaphylaxis, 11/30/16) Sulfa (Verified Allergy, Severe, RASH, 11/30/16) Ibuprofen (Verified Allergy, Intermediate, HIVES, FACIAL SWELLING., 11/30/16 ) Tramadol (Verified Allergy, Intermediate, HIVES, 11/30/16) hives, sewll up Compazine (Verified Allergy, Unknown, HIVES, 11/30/16) Latex (Verified Allergy, Unknown, 11/30/16) Penicillin (Verified Allergy, Unknown, HIVES, 11/30/16) Imitrex (Verified Adverse Reaction, Severe, VOMITING PASSED OUT, 11/30/16) Reported Meds & Prescriptions Reported Meds & Active Scripts Active Reported Lasix (Furosemide) 40 Mg Tab 40 Mg PO BID Topamax (Topiramate) 50 Mg Tab 50 Mg PO BID Diamox Sequels ER 12 HR (Acetazolamide) 500 Mg Cap 500 Mg PO Q12HR Meclizine (Meclizine HCl) 25 Mg Tab 25 Mg PO DIRECTED PRN Review of Systems Except as stated in HPI: all other systems reviewed are Neg Physical Exam Narrative GENERAL: Well-appearing female in no mild distress SKIN: Focused skin assessment warm/dry. HEAD: Normocephalic. EYES: Pupils equal and round. 3 mm and reactive bilaterally. Funduscopic examination is limited due to nondilated pupils, but I do not see obvious papilledema. No scleral icterus. No injection or drainage. ENT: No nasal bleeding or discharge. Mucous membranes pink and moist. NECK: Supple without nuchal rigidity CARDIOVASCULAR: Regular rate and rhythm. RESPIRATORY: No accessory muscle use. GASTROINTESTINAL: Abdomen soft, non-tender, nondistended. Obese MUSCULOSKELETAL: No obvious deformities. No edema. NEUROLOGICAL: Awake and alert. No obvious cranial nerve deficits. Motor grossly within normal limits. Normal speech. PSYCHIATRIC: Appropriate mood and affect; insight and judgment normal. Data Data Last Documented VS Vital Signs Date Time Temp Pulse Resp B/P Pulse Ox O2 Delivery O2 Flow Rate FiO2 11/30/16 21:55 100 Room Air 11/30/16 20:25 97.3 110 16 137/94 Orders Ecg Monitoring (11/30/16 21:42) Iv Access Insert/Monitor (11/30/16 21:42) Oximetry (11/30/16 21:42) Sodium Chloride 0.9% Flush (Ns Flush) (11/30/16 21:45) Diphenhydramine Inj (Benadryl Inj) (11/30/16 21:45) Metoclopramide Inj (Reglan Inj) (11/30/16 21:45) Morphine Inj (Morphine Inj) (11/30/16 21:45) Acetazolamide (Diamox) (11/30/16 21:45) Morphine Inj (Morphine Inj) (11/30/16 23:45) Dexamethasone Inj (Decadron Inj) (11/30/16 23:45) Lumbar Puncture (11/30/16 ) Sodium Chlor 0.9% 1000 Ml Inj (Ns 1000 M (11/30/16 23:33) Vital Signs (Adult) .On admission (11/30/16 23:33) Notify Radiology (11/30/16 23:33) Diet Npo (12/01/16 Breakfast) Complete Blood Count With Diff (11/30/16 23:33) Prothrombin Time / Inr (Pt) (11/30/16 23:33) Act Partial Throm Time (Ptt) (11/30/16 23:33) Basic Metabolic Panel (Bmp) (11/30/16 23:33) MDM Medical Decision Making Medical Screen Exam Complete: Yes Emergency Medical Condition: Yes Medical Record Reviewed: Yes Differential Diagnosis 31-year-old female with history of pseudotumor cerebri here with complaint of headache. Differential includes pseudotumor, migraine headache, tension headache, cluster headache. Patient has been afebrile, no neck stiffness or noctural headaches, is well-appearing, with a normal neurologic examination. This makes infection and subarachnoid hemorrhage very unlikely. There is not enough evidence to pursue these diagnoses. Narrative Course Patient placed on monitor, IV established and blood obtained. Patient was given 50 mg Benadryl, 10 mg Reglan, 4 mg morphine and 1000 mg of Diamox. Patient had no improvement in her headache. We discussed admission for lumbar puncture with interventional radiology given her body habitus and patient is agreeable. She was remedicated with 4 mg morphine, 10 mg Decadron. Patient will be admitted, nothing by mouth after midnight for LP in the morning. Diagnosis Primary Impression: Pseudotumor cerebri Additional Impression: Headache Qualified Code: R51 - Intractable episodic headache, unspecified headache type Admitting Information Admitting Physician Requests: Admit Yara Choe MD Nov 30, 2016 23:39
[2016-11-30] MEDS ORDERED: DEXAMETHASONE SOD PHOS 20 MG/5 ML VIAL IV PUSH ONE (23:45)
--- NOTE | 2016-11-30 23:56 | HHI.HP ---
HPI Service [facility] Primary [facility] Physician No Primary Care Physician Admission Diagnosis pseudotumor cerebri, headache Diagnoses: (1) Pseudotumor cerebri Diagnosis: Principal (2) Migraine Diagnosis: Principal (3) Leukocytosis Diagnosis: Principal Travel History International Travel<30 Days: No Contact w/Intl Traveler <30 Da: No Traveled to Known Affected Are: No History of Present Illness This is a 31-year-old female with a PMH of Pseudotumor Cerebri and Migraine who presented to the ER with complaints of severe headache x2 days. Follows w/ Dr. 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 On Topamax, Diamox and Lasix at home, reports compliance w/ meds. No fever, chills , nausea or vomiting. On arrival, BP 137/94, HR 110, O2 sat 100% on RA, Afebrile. CBC unremarkable except for WBC 16.2. Chemistry essentially unremarkable. INR 1.0. S/p Lasix, Benadryl and Diamox in ER w/ some improvement. Review of Systems Except as stated in HPI: all other systems reviewed are Neg ROS: 14 point review of systems otherwise negative. Past Family Social History Past Medical History PMH: Pseudotumor Cerebri and Migraine Past Surgical History PAST SURGICAL HISTORY: Lithotripsy, Cholecystectomy, Allergies: Coded Allergies: Amoxicillin (Verified Allergy, Severe, Anaphylaxis, 11/30/16) Sulfa (Verified Allergy, Severe, RASH, 11/30/16) Ibuprofen (Verified Allergy, Intermediate, HIVES, FACIAL SWELLING., 11/30/16 ) Tramadol (Verified Allergy, Intermediate, HIVES, 11/30/16) hives, sewll up Compazine (Verified Allergy, Unknown, HIVES, 11/30/16) Latex (Verified Allergy, Unknown, 11/30/16) Penicillin (Verified Allergy, Unknown, HIVES, 11/30/16) Imitrex (Verified Adverse Reaction, Severe, VOMITING PASSED OUT, 11/30/16) Family History PAST FAMILY HISTORY: Reviewed. No h/o DM or CAD Social History PAST SOCIAL HISTORY: Occasional alcohol. Negative for tobacco or drugs. Physical Exam Vital Signs Vital Signs Date Time Temp Pulse Resp B/P Pulse Ox O2 Delivery O2 Flow Rate FiO2 11/30/16 21:55 100 Room Air 11/30/16 20:25 97.3 110 16 137/94 100 Room Air Physical Exam PE: GENERAL: Young morbidly obese female in no acute distress. HEENT: PERRLA, EOMI. No scleral icterus or conjunctival pallor. No lid lag or facial droop. CARDIOVASCULAR: Regular rate and rhythm. No obvious murmurs to auscultation. No chest tenderness to palpation. RESPIRATORY: No obvious rhonchi or wheezing. Clear to auscultation. Breath sounds equal bilaterally. GASTROINTESTINAL: Abdomen soft, non-tender, nondistended. BS normal. MUSCULOSKELETAL: Extremities without clubbing, cyanosis, or edema. No obvious deformities. NEUROLOGICAL: Awake, alert and oriented x4. No focal neurologic deficits. Moving both upper and lower extremities spontaneously. Assessment and Plan Problem List: (1) Pseudotumor cerebri ICD Code: G93.2 Status: Acute (2) Migraine ICD Code: G43.909 Status: Acute (3) Leukocytosis ICD Code: D72.829 Status: Acute Assessment and Plan A/P: 1. Pseudotumor Cerebri: follows w/ Dr. 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 S/p Diamox, Benadryl , Lasix in ER. Consult for IR placed by ER physician for LP. Continue w/ analgesics/antiemetics as needed. 2. Migraine: secondary to above, continue w/ above treatment plan. 3. Leukocytosis: WBC 16, no signs of infection, will monitor, repeat labs in am. 4. DVT Prophylaxis: SCD/Teds. 5. Social work for d/c planning as needed. 6. Case discussed w/ ER physician at length. Patricia Dickson MD Nov 30, 2016 23:56
[2016-12-01] MEDS ORDERED: BISACODYL 10 MG SUPP RECTAL PRN
[2016-12-01] MEDS ORDERED: MAGNESIUM HYDROXIDE SUSP 30 ML CUP PO PRN
[2016-12-01] MEDS ORDERED: LACTULOSE SYRUP 20 GM/30 ML CUP PO PRN
[2016-12-01] MEDS ORDERED: ACETAMINOPHEN/HYDROcodone 325 MG/5 MG TAB PO PRN
[2016-12-01] MEDS ORDERED: ACETAMINOPHEN 325 MG TAB PO PRN
[2016-12-01 00:03] VITALS: BP 124/82; PULSE 61; RESP 18; O2SAT 100
[2016-12-01 00:33] LABS: BICARBONATE 21.2 MEQ/L (21.0-32.0); POTASSIUM 3.7 MEQ/L (3.5-5.1)
[2016-12-01 00:43] LABS: AUTOMATED NEUTROPHIL # 9.4 TH/MM3 (1.8-7.7); BASOPHIL # 0.1 TH/MM3 (0-0.2); BASOPHIL % 0.4 % (0.0-2.0); EOSINOPHIL # 0.1 TH/MM3 (0-0.4); EOSINOPHIL % 0.7 % (0.0-4.0); HEMATOCRIT 39.6 % (35.0-46.0); HEMO FLAGS DIFF FINAL; LYMPH % 31.4 % (9.0-44.0); LYMPHOCYTE # 5.1 TH/MM3 (1.0-4.8); MEAN CELL VOLUME 82.7 FL (80.0-100.0); MEAN CORPUSCULAR HEMOGLOBIN 26.7 PG (27.0-34.0); MEAN CORPUSCULAR HGB CONC 32.2 % (32.0-36.0); MONO % 9.2 % (0.0-8.0); NEUT % 58.3 % (16.0-70.0); PLATELET COUNT 324 TH/MM3 (150-450); RED BLOOD COUNT 4.79 MIL/MM3 (4.00-5.30); RED CELL DISTRIBUTION WIDTH 13.9 % (11.6-17.2); WHITE BLOOD COUNT 16.2 TH/MM3 (4.0-11.0)
[2016-12-01 00:50] LABS: APTT (PATIENT) 21.3 SEC (24.3-30.1); PROTHROMBIN TIME - PATIENT 10.5 SEC (9.8-11.6)
[2016-12-01] MEDS: diphenhydrAMINE HCL 50 MG/ML VIAL IV PUSH PRN ×2 (01:52→22:19)
[2016-12-01] MEDS: MORPHINE SULFATE 4 MG/ML INJ IV PRN ×6 (01:52→20:54)
[2016-12-01 03:51] VITALS: BP 101/59; PULSE 61; RESP 18; TEMP 98.5; O2SAT 99
[2016-12-01 08:00] VITALS: BP 112/56; PULSE 57; RESP 18; TEMP 98.5; O2SAT 96
[2016-12-01] MEDS: SODIUM CHLORIDE 0.9% FLUSH 10 ML FLUSH IV FLUSH SCH ×2 (08:45→21:40)
[2016-12-01] MEDS: FUROSEMIDE 40 MG TAB PO SCH ×2 (08:47→20:54)
[2016-12-01] MEDS: DOCUSATE SODIUM 50 MG/SENNA 8.6 MG TAB PO SCH ×2 (08:48→20:54)
[2016-12-01] MEDS: TOPIRAMATE 25 MG TAB PO SCH ×2 (08:54→20:54)
[2016-12-01] MEDS: acetaZOLAMIDE SEQUELS 500 MG SUSTAINED RELEASE CAP PO SCH ×2 (09:24→20:54)
[2016-12-01] MEDS ORDERED: METOCLOPRAMIDE HCL 10 MG/2 ML VIAL IV PUSH ONE (10:00)
[2016-12-01] MEDS ORDERED: diphenhydrAMINE HCL 50 MG/ML VIAL IV PUSH ONE (10:00)
[2016-12-01] MEDS ORDERED: MORPHINE SULFATE 4 MG/ML INJ IV PUSH ONE (10:00)
--- NOTE | 2016-12-01 10:39 | HHI.PR ---
Subjective Remarks Follow up for migraine, pseudotumor cerebri. The patient reports continued migraine headache today with associated dizziness, photophobia, nausea and dry heaves. She was only able to eat a small portion of her breakfast. She is requesting increased pain medication, specifically morphine from 2mg to 4mg. She is requesting her meclizine be restarted. She would prefer to wait until tomorrow for LP because she currently feels "miserable". Denies any other medical complaints including no fevers/chills, neck pain, chest pain, palpitations, shortness of breath, or abdominal pain. Objective Vitals Vital Signs Date Time Temp Pulse Resp B/P Pulse Ox O2 Delivery O2 Flow Rate FiO2 12/01/16 08:00 98.5 57 18 112/56 96 12/01/16 05:19 18 12/01/16 03:51 98.5 61 18 101/59 99 12/01/16 00:03 61 18 124/82 100 Room Air 11/30/16 21:55 100 Room Air 11/30/16 20:25 97.3 110 16 137/94 100 Room Air Result Diagram: 11/30/16 2345 11/30/16 2345 Objective Remarks GENERAL: Well-nourished, well-developed obese female patient in [facility]. Seen with cold wash towel on forehead. SKIN: Warm and dry. No rash. HEENT: Normocephalic. Atraumatic. Pupils equal and round. Mucous membranes pink and moist. NECK: Supple. Trachea midline. CARDIOVASCULAR: Regular rate and rhythm. S1, S2 noted. No murmur appreciated. RESPIRATORY: No accessory muscle use. Clear to auscultation. Breath sounds equal bilaterally. GASTROINTESTINAL: Abdomen soft, non-tender, nondistended. Normoactive bowel sounds x4. MUSCULOSKELETAL: No obvious deformities. Extremities without clubbing, cyanosis , or edema. NEUROLOGICAL: Awake and alert. No obvious cranial nerve deficits. Motor grossly within normal limits. Normal speech. PSYCHIATRIC: Appropriate mood and affect; insight and judgment normal. Medications and IVs Current Medications Medications (Trade) Dose Ordered Sig/Jd Route Start Time Stop Time Status Last Admin (Benadryl Inj) 50 mg Q4H PRN IV PUSH 12/01/16 00:00 12/01/16 01:52 (Tigan Inj) 200 mg Q4H PRN IM 8/6/17 00:00 (NS Flush) 2 ml UNSCH PRN IV FLUSH 12/01/16 00:00 (NS Flush) 2 ml BID IV FLUSH 12/01/16 09:00 12/01/16 08:45 (Zofran Inj) 4 mg Q6H PRN IVP 12/01/16 00:00 (Tylenol) 650 mg Q6H PRN PO 12/01/16 00:00 ([place]yman 5-325 Mg) 1 tab Q4H PRN PO 12/01/16 00:00 (Morphine Inj) 2 mg Q3H PRN IV 12/01/16 00:00 12/01/16 08:47 (Yojana-Colace) 1 tab BID PO 12/01/16 09:00 12/01/16 08:48 (Milk Of Magnesia Liq) 30 ml Q12H PRN PO 12/01/16 00:00 (Senokot) 17.2 mg Q12H PRN PO 12/01/16 00:00 (Dulcolax Supp) 10 mg DAILY PRN RECTAL 12/01/16 00:00 (Lactulose Liq) 30 ml DAILY PRN PO 12/01/16 00:00 (Diamox Sequels) 500 mg Q12HR PO 12/01/16 09:00 12/01/16 09:24 (Lasix) 40 mg BID PO 12/01/16 09:00 12/01/16 08:47 (Topamax) 50 mg BID PO 12/01/16 09:00 12/01/16 08:54 (Antivert) 25 mg Q8H PRN PO 12/01/16 10:30 UNV A/P Problem List: (1) Pseudotumor cerebri ICD Code: G93.2 Status: Acute (2) Migraine ICD Code: G43.909 Status: Acute (3) Leukocytosis ICD Code: D72.829 Status: Acute Assessment and Plan 31-year-old female with a PMH of Pseudotumor Cerebri and Migraine who presented to the ER with complaints of severe headache x2 days. Pseudotumor Cerebri: follows w/ Dr. Haddad as outpatient, referred to [facility] as outpatient for PUMPER GAUGER Shunt, now w/ acute/severe headache. S/p Diamox, Benadryl, Lasix in ER. Consult for IR placed by ER physician for LP. Continue w/ analgesics/antiemetics as needed. Increased pain medications to IV morphine 4mg q3h prn. Consult neurologist Dr. Haddad. Migraine: secondary to above, continue w/ above treatment plan. Dizziness: suspect secondary to migraine vs vertigo. Continue patient's meclizine. Antiemetics prn. Leukocytosis: WBC 16, no signs of infection, will monitor, repeat labs in am. DVT Prophylaxis: SCD/Teds. Avoid chemoprophylaxis secondary to upcoming LP. Discharge Planning Discharge pending further clinical improvement, LP, and neurology consult. Patient does not feel ready for discharge today. Jocy Dia PA-C Dec 01, 2016 10:39 am
--- NOTE | 2016-12-01 12:23 | MB ---
cc: SIRISHA RUIZ DATE OF CONSULTATION: 12/01/2016. REASON FOR CONSULTATION: Pseudotumor cerebri. HISTORY OF PRESENT ILLNESS: Ms. Mayberry is a very pleasant 31-year-old female who has a documented history of pseudotumor cerebri and a previous lumbar puncture with high opening pressure. She has had negative imaging studies. She now presents with blurred vision in both eyes and decreased visual acuity as well as severe headache. She does take Diamox. PAST MEDICAL HISTORY: 1. She has a history of pseudotumor cerebri. 2. History of migraines. 3. History of lithotripsy. 4. Cholecystectomy. 5. section. ALLERGIES: 1. AMOXIL. 2. SULFA. 3. IBUPROFEN. 4. TRAMADOL. 5. COMPAZINE. 6. LATEX. 7. PENICILLIN. 8. IMITREX. MEDICATIONS CURRENTLY: 1. She takes Diamox 500 milligrams three times a day. 2. She is on Meclizine. 3. Lasix 40 milligrams twice a day. 4. Topiramate 50 milligrams twice a day. 5. Benadryl PRN. 6. Tigan PRN. 7. Morphine PRN headaches. NEUROLOGICAL EXAMINATION: VITAL SIGNS: Blood pressure is 112/56, pulse 57, respiratory rate is 18. HIGHER CORTICAL FUNCTIONS: Normal. CRANIAL NERVES: Visual hyatt are normal. She does have papilledema. The extraocular movements are intact. MOTOR EXAM: Normal strength and tone of all groups. There is no drift. Fine motor skills within normal limits. REFLEXES: Symmetric. LABORATORY DATA: White count 16,200, hemoglobin 12.8, hematocrit 39.6%, platelet count 324,000. PT 10.5, INR 1, APTT 21.3. Sodium is 140, potassium 3.7, chloride 104, CO2 21.2, the BUN is 20, creatinine 0.64, GFR is 108, glucose 72. IMPRESSION: Pseudotumor cerebri. RECOMMENDATIONS: 1. I would like to repeat an MRI of the brain as well as an MR venogram to be sure there is no venous sinus thrombosis. 2. I also recommend lumbar puncture with interventional radiology to measure the opening pressure. If the opening pressure remains high, will consult neurosurgery to consider shunt placement. MD MOHIT Emmanuel/KRISTEN /11:47 AM /12:13 PM
[2016-12-01] MEDS ORDERED: GADODIAMIDE PF 287 MG/ML 20 ML VIAL (for RAD MRI) IV ONE (12:37)
--- NOTE | 2016-12-01 12:50 | RADRPT ---
EXAM DATE/TIME: 12/01/2016 12:19 [facility] COMPARISON: No previous studies available for comparison. INDICATIONS : Cephalgia. MEDICAL HISTORY : None. SURGICAL HISTORY : Cholecystectomy. section. ENCOUNTER: Initial ACUITY: 1 day PAIN SCORE: 7/10 LOCATION: cranial TECHNIQUE: Multiplanar, multisequence MRI of the brain was performed without contrast. FINDINGS: CEREBRUM: The ventricles are normal. No midline shift, mass lesion, hemorrhage or acute infarction. No extraa xial fluid collections are seen. The pituitary gland and suprasellar cistern are normal in configura tion. WHITE MATTER: Within normal limits. POSTERIOR FOSSA: The cerebellum and brainstem demonstrate no acute finding. The 4th ventricle is midline. The cerebel lopontine angle is unremarkable. The cerebellar tonsils are normal in position. DIFFUSION IMAGING: No focal areas of restricted diffusion are seen. No evidence of acute infarction. EXTRACRANIAL: The visualized portions of the orbits and paranasal sinuses are unremarkable. CONCLUSION: Negative brain MR without contrast. Wallace Rivera MD on December 01, 2016 at 12:46 Board Certified Radiologist. This report was verified electronically.
--- NOTE | 2016-12-01 13:07 | RADRPT ---
EXAM DATE/TIME: 12/01/2016 12:19 COMPARISON: No previous studies available for comparison. INDICATIONS : Cephalgia. CONTRAST: 20 cc Omniscan (gadodiamide) IV MEDICAL HISTORY : None. SURGICAL HISTORY : Cholecystectomy. section. ENCOUNTER: Initial ACUITY: 1 day PAIN SCORE: 7/10 LOCATION: cranial FINDINGS: Normal filling and morphology intracranial draining veins and venous sinuses. No thrombosis. CONCLUSION: Normal MRV of the brain. Wallace Manuel MD on December 01, 2016 at 13:04 Board Certified Radiologist. This report was verified electronically.
[2016-12-01] MEDS: MECLIZINE HCL 25 MG TAB PO PRN (14:36)
[2016-12-01 16:00] VITALS: BP 117/61; PULSE 71; RESP 20; TEMP 98.5; O2SAT 98
[2016-12-01 16:40] LABS: AUTOMATED NEUTROPHIL # 14.1 TH/MM3 (1.8-7.7); BASOPHIL # 0.1 TH/MM3 (0-0.2); BASOPHIL % 0.4 % (0.0-2.0); EOSINOPHIL % 0.1 % (0.0-4.0); LYMPH % 11.5 % (9.0-44.0); MEAN CELL VOLUME 84.3 FL (80.0-100.0); MEAN CORPUSCULAR HEMOGLOBIN 26.3 PG (27.0-34.0); MEAN CORPUSCULAR HGB CONC 31.2 % (32.0-36.0); MONO % 5.4 % (0.0-8.0); NEUT % 82.6 % (16.0-70.0); PLATELET COUNT 338 TH/MM3 (150-450); RED BLOOD COUNT 4.86 MIL/MM3 (4.00-5.30); RED CELL DISTRIBUTION WIDTH 13.9 % (11.6-17.2)
[2016-12-01 16:49] LABS: HEMO FLAGS AUTO DIFF
[2016-12-01 16:55] LABS: ALT (GPT) 25 U/L (10-53); ANION GAP 11 MEQ/L (5-15); AST (GOT) 21 U/L (15-37); BICARBONATE 18.6 MEQ/L (21.0-32.0); CHLORIDE 107 MEQ/L (98-107); GLOMERULAR FILTRATION RATE 104 ML/MIN (>89); POTASSIUM 4.3 MEQ/L (3.5-5.1); SODIUM (NA) 137 MEQ/L (136-145)
[2016-12-01 16:57] LABS: ALKALINE PHOSPHATASE 68 U/L (45-117); TOTAL BILIRUBIN ADULT 0.3 MG/DL (0.2-1.0)
[2016-12-01 16:59] LABS: BLOOD UREA NITROGEN 11 MG/DL (7-18)
[2016-12-01 17:08] LABS: BETA HCG QUANT LESS THAN 1 MIU/ML (0-5)
[2016-12-01 17:19] LABS: SCAN/DIFF AUTO DIFF CONFIRMED
[2016-12-01 20:02] VITALS: BP 124/73; PULSE 68; RESP 18; TEMP 98.5; O2SAT 97
[2016-12-01] MEDS: TRIMETHOBENZAMIDE INJ 200 MG/2 ML VIAL IM PRN (22:18)
[2016-12-01] MEDS: SODIUM CHLORIDE 0.9% FLUSH 10 ML FLUSH IV FLUSH PRN (22:19)
[2016-12-01 23:47] VITALS: BP 126/71; PULSE 63; RESP 18; TEMP 98.4; O2SAT 98
[2016-12-02] MEDS: MORPHINE SULFATE 4 MG/ML INJ IV PRN ×7 (00:36→23:46)
[2016-12-02] MEDS: SENNOSIDES 8.6 MG TAB PO PRN ×2 (00:44→22:08)
[2016-12-02 03:08] VITALS: BP 116/62; PULSE 62; RESP 18; TEMP 98.7; O2SAT 97
[2016-12-02] MEDS: SODIUM CHLORIDE 0.9% FLUSH 10 ML FLUSH IV FLUSH PRN (06:10)
[2016-12-02 07:55] VITALS: BP 108/59; PULSE 52; RESP 18; TEMP 98.4; O2SAT 99
--- NOTE | 2016-12-02 08:42 | HHI.PR ---
Subjective Remarks Follow-up for headache and pseudotumor cerebri. The patient continues to complain of headache with vision changes, similar to her previous episodes. She 's had about 10 lumbar punctures before. She is apprehensive about having a PAPER FINISHER shunt placed. Plan for lumbar puncture today. Upon further questioning, she states she's felt feverish overnight. She reports nausea and decreased urine output. No diarrhea, vomiting, shortness of breath, cough. Objective Vitals Vital Signs Date Time Temp Pulse Resp B/P Pulse Ox O2 Delivery O2 Flow Rate FiO2 12/02/16 07:55 98.4 52 18 108/59 99 12/02/16 03:08 98.7 62 18 116/62 97 12/02/16 00:44 18 12/01/16 23:47 98.4 63 18 126/71 98 12/01/16 20:02 98.5 68 18 124/73 97 12/01/16 16:00 98.5 71 20 117/61 98 Result Diagram: 12/01/16 1554 12/01/16 1554 Imaging Last Impressions Head/Brain Mag Res Venography 12/01/16 0000 Signed Impressions: Service Date/Time: Thursday, December 01, 2016 12:19 - CONCLUSION: Normal MRV of the brain. Wallace Manuel MD Brain MRI 12/01/16 0000 Signed Impressions: Service Date/Time: Thursday, December 01, 2016 12:19 - CONCLUSION: Negative brain MR without contrast. Wallace Rivera MD Objective Remarks GENERAL: Well-developed well-nourished morbidly obese. In no acute distress. SKIN: Warm and dry. No lesions noted. HEENT: Normocephalic. Pupils equal and round. Mucous membranes pink and moist. CARDIOVASCULAR: Regular rate and rhythm. No murmur appreciated. RESPIRATORY: No accessory muscle use. Clear to auscultation. Breath sounds equal bilaterally. GASTROINTESTINAL: Abdomen soft, non-tender, nondistended. Bowel sounds x4. MUSCULOSKELETAL: No obvious deformities. No clubbing or cyanosis. No edema. NEUROLOGICAL: Awake and alert. No focal neurological deficits. Moves upper and lower extremities spontaneously. Normal speech. PSYCHIATRIC: Appropriate mood and affect; insight and judgment normal. A/P Problem List: (1) Pseudotumor cerebri ICD Code: G93.2 Status: Acute (2) Migraine ICD Code: G43.909 Status: Acute (3) Leukocytosis ICD Code: D72.829 Status: Acute Assessment and Plan 31-year-old female with a PMH of Pseudotumor Cerebri and Migraine who presented to the ER with complaints of severe headache x2 days. Pseudotumor Cerebri: follows w/ Dr. Haddad as outpatient, referred to [facility] as outpatient for PAPER FINISHER Shunt, now w/ acute/severe headache. Continue home Topamax, meclizine, acetazolamide, Lasix. Neurology consulted and ordered a brain MRI/ MRV and recommended LP. Continue w/ analgesics/antiemetics as needed with IV morphine 4mg q3h prn. Migraine: secondary to above, continue w/ above treatment plan. Dizziness: suspect secondary to migraine vs vertigo. Continue patient's meclizine. Antiemetics prn. Leukocytosis: WBC 17, afebrile, no obvious signs of infection, check UA, monitor. DVT Prophylaxis: SCD/Teds. Avoid chemoprophylaxis secondary to upcoming LP. Discharge Planning Follow up results of lumbar puncture and neurology recommendations. Padilla Nuñez Dec 02, 2016 08:42
[2016-12-02] MEDS: SODIUM CHLORIDE 0.9% FLUSH 10 ML FLUSH IV FLUSH SCH ×2 (09:22→22:08)
[2016-12-02] MEDS: TOPIRAMATE 25 MG TAB PO SCH ×2 (09:24→22:07)
[2016-12-02] MEDS: FUROSEMIDE 40 MG TAB PO SCH ×2 (09:24→22:08)
[2016-12-02] MEDS: acetaZOLAMIDE SEQUELS 500 MG SUSTAINED RELEASE CAP PO SCH ×2 (09:24→22:08)
[2016-12-02] MEDS: DOCUSATE SODIUM 50 MG/SENNA 8.6 MG TAB PO SCH ×2 (09:24→21:00)
[2016-12-02] MEDS: MECLIZINE HCL 25 MG TAB PO PRN ×3 (09:38→23:45)
--- NOTE | 2016-12-02 12:29 | RADRPT ---
EXAM DATE/TIME: 12/02/2016 10:45 [facility] COMPARISON: No previous studies available for comparison. INDICATIONS : Patient with history of headaches and pseudotumor cerebri in need of lumbar puncture with opening pre ssures. MEDICAL HISTORY : 1.Pseudotumor cerebri 2.Headaches SURGICAL HISTORY : 1.Lithotripsy 2.Cholecystectomy 3. ENCOUNTER: Initial ACUITY: >1 year PAIN SCORE: 0/10 LUMBAR PUNCTURE TIME: 1101 hours FLUORO TIME: 1.8 minutes IMAGE SERIES: 1 ACCESS LEVEL: L2-3 OPENING PRESSURE: 25 cm of water CLOSING PRESSURE: 7 cm of water FLUID: 23 cc of clear CSF was collected and sent to the laboratory for analysis. PROCEDURE : 1. Fluoroscopic guided lumbar puncture. 2. Recording of opening pressure. The risks, benefits and alternatives to the procedure were explained and verbal and written consent w as obtained. The site was prepped in sterile fashion. Full sterile technique was used, including ca p, mask, sterile gloves and gown and a large sterile sheet. Hand hygiene and 2% chlorhexidine and/or betadine/alcohol prep was utilized per protocol for cutaneous antisepsis. The skin and subcutaneous tissues were infiltrated with local anesthetic solution. With fluoroscopic guidance the lumbar thecal sac was punctured at the above level described above and the opening pressure was recorded. The above described fluid was removed without difficulty. The patient tolerated the procedure well and there were no complications. CONCLUSION: Uncomplicated fluoroscopically guided lumbar puncture with pressures as above. Boo Roy MD on December 02, 2016 at 12:27 Board Certified Radiologist. This report was verified electronically.
[2016-12-02 12:37] LABS: GROSS BLOOD TUBE #1 0 (0); GROSS BLOOD TUBE #2 0 (0); GROSS BLOOD TUBE #3 0 (0); GROSS BLOOD TUBE #4 0 (0); SUPERNATE COLOR TUBE #1 CLEAR (CLEAR); SUPERNATE COLOR TUBE #2 CLEAR (CLEAR); SUPERNATE COLOR TUBE #3 CLEAR (CLEAR); SUPERNATE COLOR TUBE #4 CLEAR (CLEAR); VOLUME TUBE # 2 4.9 ML; VOLUME TUBE # 3 5.3 ML; VOLUME TUBE # 4 6.6 ML
[2016-12-02 12:38] LABS: CSF LYMPHOCYTES 0 %; CSF NEUTROPHILS 0 %; WBC TUBE #4 0 /MM3 (0-10)
[2016-12-02 12:51] LABS: BACTERIA, URINE RARE /hpf; BLOOD, URINE NEG (NEG); COMMENT (UR) CULT NOT INDICATED; CULTURE IF INDICATED CULT NOT INDICATED; GLUCOSE,URINE NEG (NEG); KETONE, URINE NEG (NEG); NITRITE,URINE NEG (NEG); SQUAMOUS EPITHELIAL CELL URINE 1 /hpf (0-5); URINE COLOR LIGHT-YELLOW (YELLW/STRAW)
--- NOTE | 2016-12-02 12:55 | PD.RAD ---
Post Procedure Progress Note Pre Procedure Diagnosis: (1) Pseudotumor cerebri (2) Blurred vision Post Procedure Diagnosis: (1) Pseudotumor cerebri (2) Blurred vision Procedure Date: Dec 02, 2016 Supervising Radiologist: Boo Roy Anesthesia: Local Plan of Activity Patient to Unit: Nursing Unit Patient Condition: Good See PACS Report for procedural detail/treatment Spinal Procedure Lumbar Puncture L3 Fluid Removal (CCs): 23 Fluid Description: Clear Puncture Time: 11:01 Findings: OP: 23 cmH2O CP: 8 cmH2O Boo Roy MD Dec 02, 2016 12:55
[2016-12-02] MEDS: diphenhydrAMINE HCL 50 MG/ML VIAL IV PUSH PRN (15:18)
[2016-12-02] MEDS: TRIMETHOBENZAMIDE INJ 200 MG/2 ML VIAL IM PRN (15:23)
[2016-12-02 16:27] VITALS: BP 118/64; PULSE 65; RESP 19; TEMP 98.4; O2SAT 98
--- NOTE | 2016-12-02 17:13 | HHI.PR ---
Review/Management Diagnosis pseudotumor. Opening pressure on LP was 25 Plan continue diamox will ask neurosurgery opinion regarding shunt vs continued medical therapy with diamox. Diagnosis/Plan: Subjective Subjective Comments No acute events reported She states her vision is improved after the LP Active Medications Current Medications Medications (Trade) Dose Ordered Sig/Jd Route Start Time Stop Time Status Last Admin (Benadryl Inj) 50 mg Q4H PRN IV PUSH 12/01/16 00:00 12/02/16 15:18 (Tigan Inj) 200 mg Q4H PRN IM 12/01/16 00:00 12/02/16 15:23 (NS Flush) 2 ml UNSCH PRN IV FLUSH 12/01/16 00:00 12/02/16 06:10 (NS Flush) 2 ml BID IV FLUSH 12/01/16 09:00 12/02/16 09:22 (Zofran Inj) 4 mg Q6H PRN IVP 12/01/16 00:00 (Tylenol) 650 mg Q6H PRN PO 12/01/16 00:00 ([place] 5-325 Mg) 1 tab Q4H PRN PO 12/01/16 00:00 12/01/16 11:58 (Yojana-Colace) 1 tab BID PO 12/01/16 09:00 12/02/16 09:24 (Milk Of Magnesia Liq) 30 ml Q12H PRN PO 12/01/16 00:00 (Senokot) 17.2 mg Q12H PRN PO 12/01/16 00:00 12/02/16 00:44 (Dulcolax Supp) 10 mg DAILY PRN RECTAL 12/01/16 00:00 (Lactulose Liq) 30 ml DAILY PRN PO 12/01/16 00:00 (Diamox Sequels) 500 mg Q12HR PO 12/01/16 09:00 12/02/16 09:24 (Lasix) 40 mg BID PO 12/01/16 09:00 12/02/16 09:24 (Topamax) 50 mg BID PO 12/01/16 09:00 12/02/16 09:24 (Antivert) 25 mg Q8H PRN PO 12/01/16 10:30 12/02/16 09:39 (Morphine Inj) 4 mg Q3H PRN IV 12/01/16 12:00 12/02/16 16:43 Allergies Allergies Coded Allergies Amoxicillin (Verified Allergy, Severe, Anaphylaxis, 11/30/16) Sulfa (Verified Allergy, Severe, RASH, 11/30/16) Ibuprofen (Verified Allergy, Intermediate, HIVES, FACIAL SWELLING., 11/30/16) Tramadol (Verified Allergy, Intermediate, HIVES, 11/30/16) Compazine (Verified Allergy, Unknown, HIVES, 11/30/16) Latex (Verified Allergy, Unknown, 11/30/16) Penicillin (Verified Allergy, Unknown, HIVES, 11/30/16) Imitrex (Verified Adverse Reaction, Severe, VOMITING PASSED OUT, 11/30/16) Exam I&O / VS Vital Signs Date Time Temp Pulse Resp B/P Pulse Ox O2 Delivery O2 Flow Rate FiO2 12/02/16 16:48 16 12/02/16 16:27 98.4 65 19 118/64 98 12/02/16 07:55 98.4 52 18 108/59 99 12/02/16 03:08 98.7 62 18 116/62 97 12/01/16 23:47 98.4 63 18 126/71 98 12/01/16 20:02 98.5 68 18 124/73 97 Exam Comments alert, speech normal Cn intact-normal vision hyatt Motor 5/5 BUE Objective Micro and Labs Laboratory Tests Test 12/02/16 12/02/16 11:01 12:20 CSF Volume (Tube 1) 6.0 CSF Supernatant Color (tube 1) CLEAR CSF Gross Blood (Tube 1) 0 CSF Volume (Tube 2) 4.9 CSF Supernatant Color (tube 2) CLEAR CSF Gross Blood (Tube 2) 0 CSF Volume (Tube 3) 5.3 CSF Supernatant Color (tube 3) CLEAR CSF Gross Blood (Tube 3) 0 CSF Volume (Tube 4) 6.6 CSF Supernatant Color (tube 4) CLEAR CSF Gross Blood (Tube 4) 0 CSF WBC (Tube 4) 0 CSF RBC (Tube 4) 0 CSF Neutrophils 0 CSF Lymphocytes 0 CSF Glucose 70 CSF Total Protein 30.0 Urine Color LIGHT-YELLOW Urine Turbidity CLEAR Urine pH 5.0 Urine Specific Godwin 1.006 Urine Protein NEG Urine Glucose (UA) NEG Urine Ketones NEG Urine Occult Blood NEG Urine Nitrite NEG Urine Bilirubin NEG Urine Urobilinogen LESS THAN 2.0 Urine Leukocyte Esterase NEG Urine RBC LESS THAN 1 Urine WBC 1 Urine Squamous Epithelial 1 Cells Urine Bacteria RARE Microscopic Urinalysis Comment CULT NOT INDICATED Date/Time Procedure Status Source Growth 12/02/16 11:01 Gram Stain - Final Resulted Cerebral Spinal Fluid Lumbar Puncture 12/02/16 11:01 CSF Culture Resulted Cerebral Spinal Fluid Lumbar Puncture Pending 12/02/16 11:01 Fungal Smear - Final Resulted Cerebral Spinal Fluid Lumbar Puncture NO FUNGAL ELEMENTS SEEN. 12/02/16 11:01 Fungal Culture Resulted Cerebral Spinal Fluid Lumbar Puncture Pending Antonio Haddad PhD MD Dec 02, 2016 17:13
[2016-12-02 20:18] VITALS: BP 124/67; PULSE 66; RESP 20; TEMP 98.6; O2SAT 97
[2016-12-03] VITALS (8 sets, daily range): BP systolic 92–132; BP diastolic 52–73; PULSE 62–73; RESP 16–20; TEMP 97.9–98.5; O2SAT 95–99
[2016-12-03] MEDS: MORPHINE SULFATE 4 MG/ML INJ IV PRN ×4 (08:04→20:53)
[2016-12-03] MEDS: SODIUM CHLORIDE 0.9% FLUSH 10 ML FLUSH IV FLUSH SCH ×2 (08:05→20:54)
[2016-12-03] MEDS: TOPIRAMATE 25 MG TAB PO SCH ×2 (09:15→21:10)
[2016-12-03] MEDS: acetaZOLAMIDE SEQUELS 500 MG SUSTAINED RELEASE CAP PO SCH ×2 (09:15→20:51)
[2016-12-03] MEDS: FUROSEMIDE 40 MG TAB PO SCH ×2 (09:16→20:51)
--- NOTE | 2016-12-03 09:20 | PD.CONS ---
[facility] Service neurosurg Consult Requested By Dr Haddad Reason for Consult pseudotumor cerebri Primary Care Physician No Primary Care Physician History of Present Illness Ms. Mayberry is a 31-year-old female who has a documented history of pseudotumor cerebri and a previous lumbar puncture with high opening pressure. She has had negative imaging studies. She now presents with blurred vision in both eyes and decreased visual acuity as well as severe headache. She does take Diamox. She had a lumbar puncture with opening pressures of Review of Systems Constitutional: DENIES: Diaphoretic episodes, Fatigue, Fever, Weight gain, Weight loss, Chills, Dizziness, Change in appetite, Night Sweats Endocrine: DENIES: Abnorml menstrual pattern, Heat/cold intolerance, Polydipsia , Polyuria, Polyphagia Eyes: COMPLAINS OF: Vision loss, Photosensitivity, DENIES: Blurred vision, Diplopia, Eye inflammation, Eye pain, Double Vision Ears, nose, mouth, throat: DENIES: Tinnitus, Hearing loss, Vertigo, Nasal discharge, Oral lesions, Throat pain, Hoarseness, Ear Pain, Running Nose, Epistaxis, Sinus Pain, Toothache, Odynophagia Respiratory: DENIES: Apneas, Cough, Snoring, Wheezing, Hemoptysis, Sputum production, Shortness of breath Cardiovascular: DENIES: Chest pain, Palpitations, Syncope, Dyspnea on Exertion , PND, Lower Extremity Edema, Orthopnea, Claudication Gastrointestinal: DENIES: Abdominal pain, Black stools, Bloody stools, Constipation, Diarrhea, Nausea, Vomiting, Difficulty Swallowing, Anorexia Genitourinary: DENIES: Abnormal vaginal bleeding, Dysmenorrhea, Dyspareunia, Sexual dysfunction, Urinary frequency, Urinary incontinence, Urgency, Hematuria , Dysuria, Nocturia, Vaginal discharge Musculoskeletal: DENIES: Joint pain, Muscle aches, Stiffness, Joint Swelling, Back pain, Neck pain Integumentary: DENIES: Abnormal pigmentation, Pruritus, Rash, Nail changes, Breast masses, Breast skin changes, Nipple discharge Hematologic/lymphatic: DENIES: Bruising, Lymphadenopathy Immunologic/allergic: DENIES: Eczema, Urticaria Neurologic: COMPLAINS OF: Headache, DENIES: Abnormal gait, Localized weakness , Paresthesias, Seizures, Speech Problems, Tremor, Poor Balance Psychiatric: DENIES: Anxiety, Confusion, Mood changes, Depression, Hallucinations, Agitation, Suicidal Ideation, Homicidal Ideation, Delusions Past Family Social History Allergies: Coded Allergies: Amoxicillin (Verified Allergy, Severe, Anaphylaxis, 11/30/16) Sulfa (Verified Allergy, Severe, RASH, 11/30/16) Ibuprofen (Verified Allergy, Intermediate, HIVES, FACIAL SWELLING., 11/30/16 ) Tramadol (Verified Allergy, Intermediate, HIVES, 11/30/16) hives, sewll up Compazine (Verified Allergy, Unknown, HIVES, 11/30/16) Latex (Verified Allergy, Unknown, 11/30/16) Penicillin (Verified Allergy, Unknown, HIVES, 11/30/16) Imitrex (Verified Adverse Reaction, Severe, VOMITING PASSED OUT, 11/30/16) Past Medical History 1. pseudotumor cerebri. 2. History of migraines. 3. History of lithotripsy. 4. Cholecystectomy. 5. section. Reported Medications 1. She takes Diamox 500 milligrams three times a day. 2. She is on Meclizine. 3. Lasix 40 milligrams twice a day. 4. Topiramate 50 milligrams twice a day. 5. Benadryl PRN. 6. Tigan PRN. 7. Morphine PRN headaches. Active Ordered Medications Current Medications Sodium Chloride (NS Flush) 2 ml UNSCH PRN IVF FLUSH AFTER USING IV ACCESS; Start 11/30/16 at 21:45; Stop 12/01/16 at 00:09; Status DC Diphenhydramine HCl (Benadryl Inj) 50 mg ONCE ONCE IVP Last administered on 22:12; Start 11/30/16 at 21:45; Stop 11/30/16 at 21:46; Status DC Metoclopramide HCl (Reglan Inj) 10 mg ONCE ONCE IVP Last administered on 22:13; Start 11/30/16 at 21:45; Stop 11/30/16 at 21:46; Status DC Morphine Sulfate (Morphine Inj) 4 mg ONCE ONCE IV PUSH Last administered on 22:12; Start 11/30/16 at 21:45; Stop 11/30/16 at 21:46; Status DC Acetazolamide (Diamox) 1,000 mg ONCE ONCE PO Last administered on 11/30/16 22: 22; Start 11/30/16 at 21:45; Stop 11/30/16 at 21:46; Status DC Morphine Sulfate (Morphine Inj) 4 mg ONCE ONCE IV PUSH Last administered on 00:03; Start 11/30/16 at 23:45; Stop 11/30/16 at 23:46; Status DC Dexamethasone Sodium Phosphate 10 mg 10 mg ONCE ONCE IV PUSH Last administered on 12/01/16 00:02; Start 11/30/16 at 23:45; Stop 11/30/16 at 23:46; Status DC Sodium Chloride (NS 1000 ml Inj) 1,000 ml @ 100 mls/hr Q10H IV Last administered on 12/01/16 00:02; Start 11/30/16 at 23:33; Stop 12/01/16 at 09:32; Status DC Diphenhydramine HCl (Benadryl Inj) 50 mg Q4H PRN IV PUSH MIGRAINE Last administered on 12/02/16 15:18; Start 12/01/16 at 00:00; Stop 12/03/16 at 10:30; Status DC Trimethobenzamide HCl (Tigan Inj) 200 mg Q4H PRN IM MIGRAINE Last administered on 12/02/16 15:23; Start 12/01/16 at 00:00; Stop 12/03/16 at 10:30; Status DC Sodium Chloride (NS Flush) 2 ml UNSCH PRN IV FLUSH FLUSH AFTER USING IV ACCESS Last administered on 12/02/16 06:10; Start 12/01/16 at 00:00 Sodium Chloride (NS Flush) 2 ml BID IV FLUSH Last administered on 12/03/16 08: 05; Start 12/01/16 at 09:00 Ondansetron HCl (Zofran Inj) 4 mg Q6H PRN IVP NAUSEA OR VOMITING Last administered on 12/03/16 10:13; Start 12/01/16 at 00:00 Acetaminophen (Tylenol) 650 mg Q6H PRN PO FEVER/PAIN SCALE 1 TO 2; Start at 00:00 Acetaminophen/ Hydrocodone Bitart ([place] 5-325 Mg) 1 tab Q4H PRN PO PAIN SCALE 3 TO 5 Last administered on 12/01/16 11:58; Start 12/01/16 at 00:00; Stop 12/03/16 at 10:30; Status DC Morphine Sulfate (Morphine Inj) 2 mg Q3H PRN IV Pain 6-10 Last administered on 12/01/16 08:47; Start 12/01/16 at 00:00; Stop 12/01/16 at 10:25; Status DC Senna/Docusate Sodium (Yojana-Colace) 1 tab BID PO Last administered on 12/03/16 09:24; Start 12/01/16 at 09:00 Magnesium Hydroxide (Milk Of Magnesia Liq) 30 ml Q12H PRN PO MILD - MODERATE CONSTIPATION; Start 12/01/16 at 00:00 Sennosides (Senokot) 17.2 mg Q12H PRN PO MODERATE - SEVERE CONSTIPATION Last administered on 12/02/16 22:08; Start 12/01/16 at 00:00 Bisacodyl (Dulcolax Supp) 10 mg DAILY PRN RECTAL SEVERE CONSITIPATION; Start at 00:00 Lactulose (Lactulose Liq) 30 ml DAILY PRN PO SEVERE CONSITIPATION; Start at 00:00 Acetazolamide (Diamox Sequels) 500 mg Q12HR PO Last administered on 12/03/16 09:15; Start 12/01/16 at 09:00 Furosemide (Lasix) 40 mg BID PO Last administered on 12/03/16 09:16; Start 12/01 at 09:00 Topiramate (Topamax) 50 mg BID PO Last administered on 12/03/16 09:15; Start at 09:00 Diphenhydramine HCl (Benadryl Inj) 50 mg ONCE ONCE IV PUSH Last administered on 12/01/16 10:31; Start 12/01/16 at 10:00; Stop 12/01/16 at 10:05; Status DC Metoclopramide HCl (Reglan Inj) 10 mg ONCE ONCE IV PUSH Last administered on 10:31; Start 12/01/16 at 10:00; Stop 12/01/16 at 10:05; Status DC Morphine Sulfate (Morphine Inj) 4 mg ONCE ONCE IV PUSH Last administered on 10:30; Start 12/01/16 at 10:00; Stop 12/01/16 at 10:05; Status DC Meclizine HCl (Antivert) 25 mg Q8H PRN PO dizziness Last administered on 23:45; Start 12/01/16 at 10:30 Morphine Sulfate (Morphine Inj) 4 mg Q3H PRN IV BREAKTHROUGH PAIN Last administered on 12/03/16 08:04; Start 12/01/16 at 12:00 Gadodiamide (Omniscan Pf Inj) 20 ml STK-MED ONCE IV Last administered on 12:37; Start 12/01/16 at 12:37; Stop 12/01/16 at 12:39; Status DC Acetaminophen/ Butalbital/ Caffeine (Fioricet 325-50-40) 1 tab ONCE ONCE PO Last administered on 12/03/16 10:44; Start 12/03/16 at 10:30; Stop 12/03/16 at 10: 34; Status DC Acetaminophen/ Butalbital/ Caffeine (Fioricet 325-50-40) 1 tab Q6H PRN PO HEADACHE; Start 12/03/16 at 10:30 Physical Exam Vital Signs Vital Signs Date Time Temp Pulse Resp B/P Pulse Ox O2 Delivery O2 Flow Rate FiO2 12/03/16 08:22 97.9 62 16 92/54 99 12/03/16 08:09 18 12/03/16 03:51 113/64 12/03/16 02:53 98.5 73 20 94/54 97 12/03/16 00:44 98.5 68 20 120/61 99 12/02/16 20:18 98.6 66 20 124/67 97 12/02/16 16:27 98.4 65 19 118/64 98 Physical Exam Ms Mayberry patient is alert, awake and oriented to time, place and person. Speech is fluent. She appears anxious to undergo a shunt Cranial nerve examination: pupils to be equal, round and reactive to light. Extra-ocular movements are intact. Facial motor and sensory function are normal and symmetrical. Gross hearing appears intact. Sternocleidomastoid and trapezius muscles are symmetrical. Other cranial nerves are intact. Neck is soft and supple with a good range of motion without pain. Muscle strength is normal in all muscle groups of both upper and lower extremities. Sensory examination is intact to light touch and pin prick in both the upper and lower extremities. Deep tendon reflexes are symmetrical in both upper and lower extremities. There is a bilateral plantar flexion response. Cerebellar examination is unremarkable, without deficits. Laboratory Laboratory Tests Test 12/02/16 12/02/16 11:01 12:20 CSF Volume (Tube 1) 6.0 CSF Supernatant Color (tube 1) CLEAR CSF Gross Blood (Tube 1) 0 CSF Volume (Tube 2) 4.9 CSF Supernatant Color (tube 2) CLEAR CSF Gross Blood (Tube 2) 0 CSF Volume (Tube 3) 5.3 CSF Supernatant Color (tube 3) CLEAR CSF Gross Blood (Tube 3) 0 CSF Volume (Tube 4) 6.6 CSF Supernatant Color (tube 4) CLEAR CSF Gross Blood (Tube 4) 0 CSF WBC (Tube 4) 0 CSF RBC (Tube 4) 0 CSF Neutrophils 0 CSF Lymphocytes 0 CSF Glucose 70 CSF Total Protein 30.0 Urine Color LIGHT-YELLOW Urine Turbidity CLEAR Urine pH 5.0 Urine Specific [place] 1.006 Urine Protein NEG Urine Glucose (UA) NEG Urine Ketones NEG Urine Occult Blood NEG Urine Nitrite NEG Urine Bilirubin NEG Urine Urobilinogen LESS THAN 2.0 Urine Leukocyte Esterase NEG Urine RBC LESS THAN 1 Urine WBC 1 Urine Squamous Epithelial 1 Cells Urine Bacteria RARE Microscopic Urinalysis Comment CULT NOT INDICATED Date/Time Procedure Status Source Growth 12/02/16 11:01 Gram Stain - Final Resulted Cerebral Spinal Fluid Lumbar Puncture 12/02/16 11:01 CSF Culture - Preliminary Resulted Cerebral Spinal Fluid Lumbar Puncture NO GROWTH IN 24 HOURS. 12/02/16 11:01 Fungal Smear - Final Resulted Cerebral Spinal Fluid Lumbar Puncture NO FUNGAL ELEMENTS SEEN. 12/02/16 11:01 Fungal Culture Resulted Cerebral Spinal Fluid Lumbar Puncture Pending Result Diagram: 12/01/16 1554 12/01/16 1554 Imaging Last Impressions Lumbar Puncture Fluoroscopy 12/02/16 0000 Signed Impressions: Service Date/Time: Friday, December 02, 2016 10:45 - CONCLUSION: Uncomplicated fluoroscopically guided lumbar puncture with pressures as above. Boo Roy MD Head/Brain Mag Res Venography 12/01/16 0000 Signed Impressions: Service Date/Time: Thursday, December 01, 2016 12:19 - CONCLUSION: Normal MRV of the brain. Wallace Manuel MD Brain MRI 12/01/16 0000 Signed Impressions: Service Date/Time: Thursday, December 01, 2016 12:19 - CONCLUSION: Negative brain MR without contrast. Wallace Rivera MD Attending Statement Neuro. neuro checks. Her headaches seem to be out of proportion to her opening pressure. She reports immediate improvement in her vision following the lumbar puncture. In my opinion placement of the ventriculoperitoneal shunt may not resolve her headaches, and it may not be in the patient's best interest at this time. I have discussed the case extensively with Dr. Haddad. Recommend outpatient referred to a neuro court magistrate at the [facility], she could be a candidate for of optic nerve fenestration Pulmonary. aggressive pulmonary toilette, nasotracheal suction, and breathing treatments with nebulizers. Nutrition. oral diet Renal. monitor closely urine output, BUN and creatinine Endocrine. Monitor serial Acu checks and SSI as needed in detail ID monitor for signs of infection Protonix for stress ulcer prophylaxis Edwin hose and SCD's for DVT prophylaxis Rahul Tillman MD Dec 03, 2016 09:20
[2016-12-03] MEDS: DOCUSATE SODIUM 50 MG/SENNA 8.6 MG TAB PO SCH ×2 (09:24→20:51)
[2016-12-03] MEDS: ONDANSETRON HCL 4 MG/2 ML VIAL IVP PRN (10:13)
[2016-12-03] MEDS ORDERED: ACETAMIN 325 MG/BUTALBITAL 50 MG/CAFFEINE 40 MG TAB PO ONE (10:30)
--- NOTE | 2016-12-03 10:38 | HHI.PR ---
Subjective Remarks Follow-up for headache. The patient had lumbar puncture yesterday. She states that after the lumbar puncture her vision definitely improved. The patient states that she has a different headache today than she did yesterday, but it is less severe. She states that she's been having intermittent episodes of vomiting, but has tolerated some oral intake and Zofran does help. She states that she has required admissions for migraine headaches before, unsure what medications have helped her in the past other than Topamax. Anaphylactic reaction to Imitrex in the past. She states that she was able to walk yesterday , but today she sat up and felt dizzy and unsteady. She states she feels like her equilibrium is off. Previously discussed with Dr. Haddad who recommended neurosurgery evaluation for pseudotumor, but states that no intervention recommended continuing medical management with Diamox; cannot rule out a migraine component. Discussed with Dr. Tillman, who recommended no MIXER RUNNER shunt at this time and outpatient follow-up with him. Objective Vitals Vital Signs Date Time Temp Pulse Resp B/P Pulse Ox O2 Delivery O2 Flow Rate FiO2 12/03/16 08:22 97.9 62 16 92/54 99 12/03/16 08:09 18 12/03/16 03:51 113/64 12/03/16 02:53 98.5 73 20 94/54 97 12/03/16 00:44 98.5 68 20 120/61 99 12/02/16 20:18 98.6 66 20 124/67 97 12/02/16 16:27 98.4 65 19 118/64 98 I/O 12/02/16 12/02/16 12/02/16 12/03/16 12/03/16 12/03/16 07:00 15:00 23:00 07:00 15:00 23:00 Intake Total 700 ml Output Total 500 ml Balance 200 ml Intake Oral 700 ml Output Urine Total 500 ml # Voids 2 # Bowel Movements 0 Result Diagram: 12/01/16 1554 12/01/16 1554 Imaging Last Impressions Lumbar Puncture Fluoroscopy 12/02/16 0000 Signed Impressions: Service Date/Time: Friday, December 02, 2016 10:45 - CONCLUSION: Uncomplicated fluoroscopically guided lumbar puncture with pressures as above. Boo Roy MD Head/Brain Mag Res Venography 8/6/17 0000 Signed Impressions: Service Date/Time: Thursday, December 01, 2016 12:19 - CONCLUSION: Normal MRV of the brain. Wallace Manuel MD Brain MRI 12/01/16 Signed Impressions: Service Date/Time: Thursday, December 01, 2016 12:19 - CONCLUSION: Negative brain MR without contrast. Wallace Rivera MD Objective Remarks GENERAL: Well-developed well-nourished morbidly obese. In no acute distress. SKIN: Warm and dry. No lesions noted. HEENT: Normocephalic. Pupils equal and round and reactive to light. EOMs intact. Mucous membranes pink and moist. CARDIOVASCULAR: Regular rate and rhythm. No murmur appreciated. RESPIRATORY: No accessory muscle use. Clear to auscultation. Breath sounds equal bilaterally. GASTROINTESTINAL: Abdomen soft, non-tender, nondistended. Bowel sounds x4. MUSCULOSKELETAL: No obvious deformities. No clubbing or cyanosis. No edema. NEUROLOGICAL: Awake and alert. No focal neurological deficits. Moves upper and lower extremities spontaneously. Normal speech. Finger to nose normal. PSYCHIATRIC: Appropriate mood and affect; insight and judgment normal. A/P Problem List: (1) Pseudotumor cerebri ICD Code: G93.2 Status: Chronic (2) Migraine ICD Code: G43.909 Status: Acute (3) Leukocytosis ICD Code: D72.829 Status: Acute Assessment and Plan 31-year-old female with a PMH of Pseudotumor Cerebri and Migraine who presented to the ER with complaints of severe headache x2 days. Pseudotumor Cerebri: follows w/ Dr. Haddad as outpatient, referred to [facility] as outpatient for MIXER RUNNER Shunt, now w/ acute/severe headache. Neurology consulted and ordered a brain MRI/MRV and recommended LP. LP performed by IR, opening pressure was elevated at 25; CSF fluid studies unremarkable to date. Neurosurgery consulted, recommends outpatient follow-up. Neurology recommended medical management if no surgical intervention, continue home Topamax, meclizine , acetazolamide, Lasix. Migraine: Patient with history of migraines. The patient continues to have significant headache with associated nausea after LP and normalization of opening pressures. Trial of Fioricet for pain control. IV morphine as needed. Zofran as needed. Follow up neurology recommendations. Dizziness: suspect secondary to migraine vs vertigo. Continue patient's meclizine. Antiemetics prn. PT eval. Leukocytosis: WBC 17, afebrile, UA clear, CSF essentially unremarkable, no obvious signs of infection, monitor. DVT Prophylaxis: SCD/Teds. Discharge Planning Continue symptom management as above for intractable headache. Follow up neurology recommendations. Follow-up PT recommendations. 1500 PT recommends no restrictions. Reassessed, continues to report intractable headache and nausea. She did not eat lunch. Discussed with Dr. Haddad, if unable to give alternate triptan, could try steroids; he will reevaluate the patient later today or tomorrow a.m. Discussed with pharmacy, no triptan available other than Imitrex on formulary. The patient does not feel that symptoms can be managed with outpatient medications. Give IV Decadron 1. Discharge planning when symptoms improve. Padilla Nuñez Dec 03, 2016 10:38
[2016-12-03] MEDS ORDERED: DEXAMETHASONE SOD PHOS 4 MG/ML VIAL IV PUSH ONE ×2 (15:15→21:30)
[2016-12-03] MEDS: MECLIZINE HCL 25 MG TAB PO PRN ×2 (18:48→22:31)
[2016-12-03] MEDS: ACETAMIN 325 MG/BUTALBITAL 50 MG/CAFFEINE 40 MG TAB PO PRN (18:49)
--- NOTE | 2016-12-03 21:16 | HHI.PR ---
Review/Management Diagnosis pseudotumor. Opening pressure on LP was [address] Tillman recommended not to proceed with shunt at this time due to only slight increase in opening pressure on LP continue MS for DELCID and steroids. continue diamox Ok to d/c home tomorrow if DELCID improved. Diagnosis/Plan: Subjective Subjective Comments No acute events reported Pt reports severe headache--feels decadron did help and MS helps Active Medications Current Medications Medications (Trade) Dose Ordered Sig/Jd Route Start Time Stop Time Status Last Admin (NS Flush) 2 ml UNSCH PRN IV FLUSH 12/01/16 00:00 12/02/16 06:10 (NS Flush) 2 ml BID IV FLUSH 12/01/16 09:00 12/03/16 20:54 (Zofran Inj) 4 mg Q6H PRN IVP 12/01/16 00:00 12/03/16 10:13 (Tylenol) 650 mg Q6H PRN PO 12/01/16 00:00 (Yojana-Colace) 1 tab BID PO 12/01/16 09:00 12/03/16 20:51 (Milk Of Magnesia Liq) 30 ml Q12H PRN PO 12/01/16 00:00 (Senokot) 17.2 mg Q12H PRN PO 12/01/16 00:00 12/02/16 22:08 (Dulcolax Supp) 10 mg DAILY PRN RECTAL 12/01/16 00:00 (Lactulose Liq) 30 ml DAILY PRN PO 12/01/16 00:00 (Diamox Sequels) 500 mg Q12HR PO 12/01/16 09:00 12/03/16 20:51 (Lasix) 40 mg BID PO 12/01/16 09:00 12/03/16 20:51 (Topamax) 50 mg BID PO 12/01/16 09:00 12/03/16 21:10 (Antivert) 25 mg Q8H PRN PO 12/01/16 10:30 12/03/16 18:48 (Morphine Inj) 4 mg Q3H PRN IV 12/01/16 12:00 12/03/16 20:53 (Fioricet 325-50-40) 1 tab Q6H PRN PO 12/03/16 10:30 12/03/16 18:49 Allergies Allergies Coded Allergies Amoxicillin (Verified Allergy, Severe, Anaphylaxis, 11/30/16) Sulfa (Verified Allergy, Severe, RASH, 11/30/16) Ibuprofen (Verified Allergy, Intermediate, HIVES, FACIAL SWELLING., 11/30/16) Tramadol (Verified Allergy, Intermediate, HIVES, 11/30/16) Compazine (Verified Allergy, Unknown, HIVES, 11/30/16) Latex (Verified Allergy, Unknown, 11/30/16) Penicillin (Verified Allergy, Unknown, HIVES, 11/30/16) Imitrex (Verified Adverse Reaction, Severe, VOMITING PASSED OUT, 11/30/16) Exam I&O / VS 12/02/16 12/02/16 12/03/16 15:00 23:00 07:00 Intake Total 700 ml Output Total 500 ml Balance 200 ml Intake Oral 700 ml Output Urine Total 500 ml # Voids 2 # Bowel Movements 0 Vital Signs Date Time Temp Pulse Resp B/P Pulse Ox O2 Delivery O2 Flow Rate FiO2 12/03/16 19:49 12 12/03/16 19:24 98.3 62 19 125/62 98 12/03/16 15:36 18 12/03/16 15:11 98.0 67 16 102/55 98 12/03/16 12:22 98.0 66 16 94/52 96 132/68 128/73 12/03/16 11:44 18 12/03/16 08:22 97.9 62 16 92/54 99 12/03/16 03:51 113/64 12/03/16 02:53 98.5 73 20 94/54 97 12/03/16 00:44 98.5 68 20 120/61 99 Exam Comments alert, speech normal Cn intact-normal vision hyatt Motor 5/5 BUE Objective Micro and Labs Date/Time Procedure Status Source Growth 12/02/16 11:01 Gram Stain - Final Resulted Cerebral Spinal Fluid Lumbar Puncture 12/02/16 11:01 CSF Culture - Preliminary Resulted Cerebral Spinal Fluid Lumbar Puncture NO GROWTH IN 24 HOURS. 12/02/16 11:01 Fungal Smear - Final Resulted Cerebral Spinal Fluid Lumbar Puncture NO FUNGAL ELEMENTS SEEN. 12/02/16 11:01 Fungal Culture Resulted Cerebral Spinal Fluid Lumbar Puncture Pending Antonio Haddad PhD Dec 03, 2016 21:16
[2016-12-04] MEDS: MORPHINE SULFATE 4 MG/ML INJ IV PRN ×7 (00:14→23:24)
[2016-12-04] MEDS: ONDANSETRON HCL 4 MG/2 ML VIAL IVP PRN ×2 (04:10→14:23)
[2016-12-04 05:27] VITALS: BP 124/60; PULSE 59; RESP 17; TEMP 97.5; O2SAT 95
[2016-12-04 08:30] VITALS: BP_SYST 108; BP_SYST 110; BP_SYST 112; BP_DIAS 68; BP_DIAS 70; PULSE 59; TEMP 98.7; O2SAT 98
[2016-12-04] MEDS: DOCUSATE SODIUM 50 MG/SENNA 8.6 MG TAB PO SCH ×2 (08:50→20:16)
[2016-12-04] MEDS: TOPIRAMATE 25 MG TAB PO SCH ×2 (08:50→20:17)
[2016-12-04] MEDS: ACETAMIN 325 MG/BUTALBITAL 50 MG/CAFFEINE 40 MG TAB PO PRN ×3 (08:50→22:51)
[2016-12-04] MEDS: acetaZOLAMIDE SEQUELS 500 MG SUSTAINED RELEASE CAP PO SCH ×2 (08:50→20:17)
[2016-12-04] MEDS: FUROSEMIDE 40 MG TAB PO SCH ×2 (08:50→20:17)
[2016-12-04] MEDS: SODIUM CHLORIDE 0.9% FLUSH 10 ML FLUSH IV FLUSH SCH ×2 (08:51→21:00)
--- NOTE | 2016-12-04 11:49 | HHI.PR ---
Subjective Remarks Follow up for headache, pseudotumor cerebri. The patient reports continued diffuse global headache with blurred vision. She states she had mild relief after IV Decadron last night however headache persists. She also reports constant nausea and an episode of vomiting early this morning. She still does not feel ready for discharge. Objective Vitals Vital Signs Date Time Temp Pulse Resp B/P Pulse Ox O2 Delivery O2 Flow Rate FiO2 12/04/16 08:30 98.7 59 112/68 98 108/70 110/70 12/04/16 05:27 97.5 59 17 124/60 95 12/04/16 00:19 12 12/03/16 23:45 98.3 68 17 115/58 95 12/03/16 19:49 12 12/03/16 19:24 98.3 62 19 125/62 98 12/03/16 15:11 98.0 67 16 102/55 98 12/03/16 12:22 98.0 66 16 94/52 96 132/68 128/73 I/O 12/03/16 12/03/16 12/03/16 12/04/16 12/04/16 12/04/16 06:59 14:59 22:59 06:59 14:59 22:59 Intake Total 420 ml 600 ml Output Total 1500 ml Balance -1080 ml 600 ml Intake Oral 420 ml 600 ml Output Urine Total 1500 ml # Voids 3 2 # Bowel Movements 1 Result Diagram: 12/01/16 1554 12/01/16 1554 Imaging Last Impressions Lumbar Puncture Fluoroscopy 12/02/16 0000 Signed Impressions: Service Date/Time: Friday, December 02, 2016 10:45 - CONCLUSION: Uncomplicated fluoroscopically guided lumbar puncture with pressures as above. Boo Roy MD Head/Brain Mag Res Venography 12/01/16 0000 Signed Impressions: Service Date/Time: Thursday, December 01, 2016 12:19 - CONCLUSION: Normal MRV of the brain. Wallace Manuel MD Brain MRI 12/01/16 0000 Signed Impressions: Service Date/Time: Thursday, December 01, 2016 12:19 - CONCLUSION: Negative brain MR without contrast. Wallace Rivera MD Objective Remarks GENERAL: Well-nourished, well-developed obese female patient in [facility]. Sleeping upon arrival, easily awakens. SKIN: Warm and dry. No rash. HEENT: Normocephalic. Atraumatic. Pupils equal and round. Mucous membranes pink and moist. NECK: Supple. Trachea midline. CARDIOVASCULAR: Regular rate and rhythm. S1, S2 noted. No murmur appreciated. RESPIRATORY: No accessory muscle use. Clear to auscultation. Breath sounds equal bilaterally. GASTROINTESTINAL: Abdomen soft, non-tender, nondistended. Normoactive bowel sounds x4. MUSCULOSKELETAL: No obvious deformities. Extremities without clubbing, cyanosis , or edema. NEUROLOGICAL: Awake and alert. No obvious cranial nerve deficits. Motor grossly within normal limits. Normal speech. PSYCHIATRIC: Appropriate mood and affect; insight and judgment normal. Medications and IVs Current Medications Medications (Trade) Dose Ordered Sig/Jd Route Start Time Stop Time Status Last Admin (NS Flush) 2 ml UNSCH PRN IV FLUSH 12/01/16 00:00 12/02/16 06:10 (NS Flush) 2 ml BID IV FLUSH 12/01/16 09:00 12/04/16 08:51 (Zofran Inj) 4 mg Q6H PRN IVP 12/01/16 00:00 12/04/16 04:10 (Tylenol) 650 mg Q6H PRN PO 12/01/16 00:00 (Yojana-Colace) 1 tab BID PO 12/01/16 09:00 12/04/16 08:50 (Milk Of Magnesia Liq) 30 ml Q12H PRN PO 12/01/16 00:00 (Senokot) 17.2 mg Q12H PRN PO 12/01/16 00:00 12/02/16 22:08 (Dulcolax Supp) 10 mg DAILY PRN RECTAL 12/01/16 00:00 (Lactulose Liq) 30 ml DAILY PRN PO 12/01/16 00:00 (Diamox Sequels) 500 mg Q12HR PO 12/01/16 09:00 12/04/16 08:50 (Lasix) 40 mg BID PO 12/01/16 09:00 12/04/16 08:50 (Topamax) 50 mg BID PO 12/01/16 09:00 12/04/16 08:50 (Antivert) 25 mg Q8H PRN PO 12/01/16 10:30 12/04/16 12:14 (Morphine Inj) 4 mg Q3H PRN IV 12/01/16 12:00 12/04/16 12:14 (Fioricet 325-50-40) 1 tab Q6H PRN PO 12/03/16 10:30 12/04/16 08:50 A/P Problem List: (1) Pseudotumor cerebri ICD Code: G93.2 Status: Chronic (2) Migraine ICD Code: G43.909 Status: Acute (3) Leukocytosis ICD Code: D72.829 Status: Acute Assessment and Plan 31-year-old female with a PMH of Pseudotumor Cerebri and Migraine who presented to the ER with complaints of severe headache x2 days. Pseudotumor Cerebri: follows w/ Dr. 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 Brain MRI/MRV unremarkable. Neurology consulted and following. LP performed by IR, opening pressure was elevated at 25; CSF fluid studies unremarkable to date. Neurosurgery consulted to consider shunt, recommends outpatient follow-up. Neurology recommended medical management if no surgical intervention, continue home Topamax, meclizine, acetazolamide, Lasix. Patient still with intractable headache, await further recommendations by neuro. Migraine: Patient with history of migraines. The patient continues to have significant headache with associated nausea after LP and normalization of opening pressures. Trial of Fioricet for pain control. IV morphine as needed. Zofran as needed. Follow up neurology recommendations. Dizziness: suspect secondary to migraine vs vertigo. Continue patient's meclizine. Antiemetics prn. PT eval, no restrictions needed. Leukocytosis: WBC 17, afebrile, UA clear, CSF essentially unremarkable, no obvious signs of infection, monitor. DVT Prophylaxis: SCD/Teds. Discharge Planning Discharge pending further clinical improvement, patient still does not feel ready for discharge today. Jocy Dia PA-C Dec 04, 2016 11:49 am
[2016-12-04 11:59] VITALS: BP 109/58; PULSE 65; RESP 18; TEMP 98.1; O2SAT 96
[2016-12-04] MEDS: MECLIZINE HCL 25 MG TAB PO PRN ×2 (12:14→22:51)
[2016-12-04 16:00] VITALS: BP 116/71; PULSE 77; RESP 20; TEMP 97.6; O2SAT 98
[2016-12-04] MEDS: SODIUM CHLORIDE 0.9% FLUSH 10 ML FLUSH IV FLUSH PRN (16:53)
[2016-12-04 20:31] VITALS: BP 116/60; PULSE 59; RESP 17; TEMP 98.7; O2SAT 98
[2016-12-05] VITALS: BP 111/59; PULSE 66; RESP 16; TEMP 98; O2SAT 98
[2016-12-05] MEDS: MORPHINE SULFATE 4 MG/ML INJ IV PRN ×7 (02:27→22:14)
[2016-12-05 08:00] VITALS: BP 115/65; PULSE 62; RESP 17; TEMP 97.1; O2SAT 98
[2016-12-05] MEDS: DOCUSATE SODIUM 50 MG/SENNA 8.6 MG TAB PO SCH ×2 (09:05→19:31)
[2016-12-05] MEDS: acetaZOLAMIDE SEQUELS 500 MG SUSTAINED RELEASE CAP PO SCH ×4 (09:05→19:32)
[2016-12-05] MEDS: TOPIRAMATE 25 MG TAB PO SCH ×2 (09:05→19:32)
[2016-12-05] MEDS: ONDANSETRON HCL 4 MG/2 ML VIAL IVP PRN ×2 (09:05→19:15)
[2016-12-05] MEDS: FUROSEMIDE 40 MG TAB PO SCH ×2 (09:05→19:32)
[2016-12-05] MEDS: SODIUM CHLORIDE 0.9% FLUSH 10 ML FLUSH IV FLUSH SCH ×2 (09:05→19:32)
--- NOTE | 2016-12-05 09:17 | HHI.PR ---
Review/Management Diagnosis pseudotumor. Opening pressure on LP was 25. headache--probably post LP with positional variation--gets worse if up Plan continue diamox strict bedret with hob flat for post LP headache I had long discussion with patient telling her I agree with holding off on shunt placement since her CSF pressure is coming down with medical therapy and would be dietz to continue medical therapy since we are seeing improvement. Diagnosis/Plan: Subjective Subjective Comments No acute events reported still with severe headache which is worse if upright' denies vision change Active Medications Current Medications Medications (Trade) Dose Ordered Sig/Jd Route Start Time Stop Time Status Last Admin (NS Flush) 2 ml UNSCH PRN IV FLUSH 12/01/16 00:00 12/04/16 16:53 (NS Flush) 2 ml BID IV FLUSH 12/01/16 09:00 12/05/16 09:05 (Zofran Inj) 4 mg Q6H PRN IVP 12/01/16 00:00 12/05/16 09:05 (Tylenol) 650 mg Q6H PRN PO 12/01/16 00:00 (Yojana-Colace) 1 tab BID PO 12/01/16 09:00 12/05/16 09:05 (Milk Of Magnesia Liq) 30 ml Q12H PRN PO 12/01/16 00:00 (Senokot) 17.2 mg Q12H PRN PO 12/01/16 00:00 12/02/16 22:08 (Dulcolax Supp) 10 mg DAILY PRN RECTAL 12/01/16 00:00 (Lactulose Liq) 30 ml DAILY PRN PO 12/01/16 00:00 (Diamox Sequels) 500 mg Q12HR PO 12/01/16 09:00 12/05/16 09:05 (Lasix) 40 mg BID PO 12/01/16 09:00 12/05/16 09:05 (Topamax) 50 mg BID PO 12/01/16 09:00 12/05/16 09:05 (Antivert) 25 mg Q8H PRN PO 12/01/16 10:30 12/04/16 22:51 (Morphine Inj) 4 mg Q3H PRN IV 12/01/16 12:00 12/05/16 09:06 (Fioricet 325-50-40) 1 tab Q6H PRN PO 12/03/16 10:30 12/04/16 22:51 Allergies Allergies Coded Allergies Amoxicillin (Verified Allergy, Severe, Anaphylaxis, 11/30/16) Sulfa (Verified Allergy, Severe, RASH, 11/30/16) Ibuprofen (Verified Allergy, Intermediate, HIVES, FACIAL SWELLING., 11/30/16) Tramadol (Verified Allergy, Intermediate, HIVES, 11/30/16) Compazine (Verified Allergy, Unknown, HIVES, 11/30/16) Latex (Verified Allergy, Unknown, 11/30/16) Penicillin (Verified Allergy, Unknown, HIVES, 11/30/16) Imitrex (Verified Adverse Reaction, Severe, VOMITING PASSED OUT, 11/30/16) Exam I&O / VS Vital Signs Date Time Temp Pulse Resp B/P Pulse Ox O2 Delivery O2 Flow Rate FiO2 12/05/16 08:00 97.1 62 17 115/65 98 12/05/16 05:35 18 12/05/16 00:00 98.0 66 16 111/59 98 12/04/16 23:29 18 12/04/16 20:31 98.7 59 17 116/60 98 12/04/16 16:00 97.6 77 20 116/71 98 12/04/16 11:59 98.1 65 18 109/58 96 Exam Comments alert, speech normal Cn intact-normal vision hyatt Motor 5/5 BUE Objective Micro and Labs Date/Time Procedure Status Source Growth 12/02/16 11:01 Gram Stain - Final Complete Cerebral Spinal Fluid Lumbar Puncture 12/02/16 11:01 CSF Culture - Final Complete Cerebral Spinal Fluid Lumbar Puncture NO GROWTH IN 72 HOURS 12/02/16 11:01 Fungal Smear - Final Resulted Cerebral Spinal Fluid Lumbar Puncture NO FUNGAL ELEMENTS SEEN. 12/02/16 11:01 Fungal Culture Resulted Cerebral Spinal Fluid Lumbar Puncture Pending Antonio Haddad PhD Dec 05, 2016 09:17
[2016-12-05] MEDS ORDERED: HYDROmorphone HCL PF 1 MG/ML VIAL IV PUSH ONE (10:30)
[2016-12-05] MEDS ORDERED: PANTOPRAZOLE SOD 40 MG DELAYED RELEASE TAB PO ONE (11:30)
[2016-12-05 11:38] LABS: CSF CRYPTOCOCCUS AG CONF ND (NOT DETECTD)
[2016-12-05 12:00] VITALS: BP 131/79; PULSE 63; RESP 18; TEMP 97.4; O2SAT 99
[2016-12-05 13:10] LABS: AUTOMATED NEUTROPHIL # 7.5 TH/MM3 (1.8-7.7); BASOPHIL # 0.1 TH/MM3 (0-0.2); BASOPHIL % 0.7 % (0.0-2.0); EOSINOPHIL # 0.2 TH/MM3 (0-0.4); EOSINOPHIL % 1.1 % (0.0-4.0); HEMATOCRIT 44.7 % (35.0-46.0); LYMPHOCYTE # 6.1 TH/MM3 (1.0-4.8); MEAN CELL VOLUME 82.1 FL (80.0-100.0); MEAN CORPUSCULAR HEMOGLOBIN 26.9 PG (27.0-34.0); MEAN CORPUSCULAR HGB CONC 32.8 % (32.0-36.0); MONO % 6.4 % (0.0-8.0); NEUT % 50.8 % (16.0-70.0); PLATELET COUNT 368 TH/MM3 (150-450); RED BLOOD COUNT 5.44 MIL/MM3 (4.00-5.30); WHITE BLOOD COUNT 14.8 TH/MM3 (4.0-11.0)
[2016-12-05 13:12] LABS: HEMO FLAGS AUTO DIFF
[2016-12-05 13:28] LABS: BICARBONATE 19.6 MEQ/L (21.0-32.0); POTASSIUM 3.2 MEQ/L (3.5-5.1)
[2016-12-05 13:57] LABS: EOSINOPHILS 2 % (0-4); NEUTROPHIL # MANUAL DIFF 6.8 TH/MM3 (1.8-7.7); POLYS (SEG NEUTROPHILS) 46 % (16-70); WBC DIFF SAMPLE 100
[2016-12-05 13:58] LABS: PLATELET ESTIMATE SMEAR NORMAL (NORMAL); PLATELET MORPHOLOGY NORMAL (NORMAL); SCAN/DIFF FINAL DIFF MANUAL
[2016-12-05 16:00] VITALS: BP 122/80; PULSE 78; RESP 17; TEMP 96.8; O2SAT 99
[2016-12-05] MEDS: ACETAMIN 325 MG/BUTALBITAL 50 MG/CAFFEINE 40 MG TAB PO PRN (19:33)
[2016-12-05 20:00] VITALS: BP 99/46; PULSE 72; RESP 16; TEMP 97.4; O2SAT 100
[2016-12-05] MEDS ORDERED: HYDROmorphone HCL PF 1 MG/ML VIAL SQ ONE (22:30)
[2016-12-05] MEDS ORDERED: POTASSIUM CHLORIDE 10 MEQ CONTROLLED RELEASE TAB PO ONE (23:45)
--- NOTE | 2016-12-05 23:55 | HHI.PR ---
Subjective Remarks Patient seen this morning around 11:30 AM. Says that her headache is still bad , however improving. Denies any chest pain or shortness of breath. She does report snoring, occasionally wakes up snoring. Objective Vital Signs Date Time Temp Pulse Resp B/P Pulse Ox O2 Delivery O2 Flow Rate FiO2 12/05/16 20:33 18 12/05/16 20:00 97.4 72 16 99/46 100 12/05/16 19:20 18 12/05/16 16:00 96.8 78 17 122/80 99 12/05/16 12:00 97.4 63 18 131/79 99 12/05/16 08:00 97.1 62 17 115/65 98 12/05/16 00:00 98.0 66 16 111/59 98 I/O 12/04/16 12/04/16 12/04/16 12/05/16 12/05/16 12/05/16 06:59 14:59 22:59 06:59 14:59 22:59 Intake Total 600 ml 720 ml Output Total 500 ml Balance 600 ml 220 ml Intake Oral 600 ml 720 ml Output Urine Total 500 ml # Voids 2 0 1 # Bowel Movements 0 Result Diagram: 12/05/16 1241 12/05/16 1241 Objective Remarks GENERAL: patient sitting up in bed. Appears comfortable. SKIN: Warm and dry. HEAD: Normocephalic. EYES: No scleral icterus. No injection or drainage. NECK: Supple, trachea midline. No JVD or lymphadenopathy. CARDIOVASCULAR: Regular rate and rhythm without murmurs, gallops, or rubs. RESPIRATORY: Breath sounds equal bilaterally. No accessory muscle use. GASTROINTESTINAL: Abdomen soft, non-tender, nondistended. MUSCULOSKELETAL: No cyanosis, or edema. BACK: Nontender without obvious deformity. No CVA tenderness. A/P Assessment and Plan 12/05/16 Continue treatment for headache. Labs ordered. Hypokalemia. Potassium 3.2. Potassium ordered. Suspected sleep apnea. Discussed extensively with patient. Recommend follow- up with primary care for evaluation 31-year-old female with a PMH of Pseudotumor Cerebri and Migraine who presented to the ER with complaints of severe headache x2 days. //Pseudotumor Cerebri: follows w/ Dr. Haddad as outpatient, referred to [facility] as outpatient for PIT TANNER Shunt, now w/ acute/severe headache. Brain MRI/MRV unremarkable. Neurology consulted and following. LP performed by IR, opening pressure was elevated at 25; CSF fluid studies unremarkable to date. Neurosurgery consulted to consider shunt, recommends outpatient follow-up. Neurology recommended medical management if no surgical intervention, continue home Topamax, meclizine, acetazolamide, Lasix. Patient still with intractable headache, await further recommendations by neuro. //Migraine: Patient with history of migraines. The patient continues to have significant headache with associated nausea after LP and normalization of opening pressures. Trial of Fioricet for pain control. IV morphine as needed. Zofran as needed. Follow up neurology recommendations. //Dizziness: suspect secondary to migraine vs vertigo. Continue patient's meclizine. Antiemetics prn. PT eval, no restrictions needed. //Leukocytosis: WBC 17, afebrile, UA clear, CSF essentially unremarkable, no obvious signs of infection, monitor. DVT Prophylaxis: SCD/Teds. Alexander Hernández MD Dec 05, 2016 23:55
[2016-12-06] VITALS: BP 115/51; PULSE 66; RESP 16; TEMP 98; O2SAT 97
[2016-12-06] MEDS: MECLIZINE HCL 25 MG TAB PO PRN ×2 (01:01→17:05)
[2016-12-06] MEDS: MORPHINE SULFATE 4 MG/ML INJ IV PRN ×7 (01:02→21:14)
[2016-12-06] MEDS: ACETAMIN 325 MG/BUTALBITAL 50 MG/CAFFEINE 40 MG TAB PO PRN ×3 (02:30→17:05)
[2016-12-06] MEDS: SODIUM CHLORIDE 0.9% FLUSH 10 ML FLUSH IV FLUSH SCH ×2 (07:41→20:31)
[2016-12-06] MEDS: DOCUSATE SODIUM 50 MG/SENNA 8.6 MG TAB PO SCH ×2 (07:42→20:30)
[2016-12-06] MEDS: TOPIRAMATE 25 MG TAB PO SCH ×2 (07:42→20:30)
[2016-12-06] MEDS: PANTOPRAZOLE SOD 40 MG DELAYED RELEASE TAB PO SCH (07:42)
[2016-12-06] MEDS: FUROSEMIDE 40 MG TAB PO SCH ×2 (07:43→20:30)
[2016-12-06 08:00] VITALS: BP 112/63; PULSE 57; RESP 18; TEMP 96.7; O2SAT 96
[2016-12-06] MEDS: acetaZOLAMIDE SEQUELS 500 MG SUSTAINED RELEASE CAP PO SCH ×2 (11:19→17:05)
[2016-12-06 12:00] VITALS: BP 104/58; PULSE 72; RESP 18; TEMP 98; O2SAT 99
[2016-12-06 12:05] VITALS: BP 125/79; PULSE 98; RESP 20; TEMP 98; O2SAT 100
[2016-12-06] MEDS: ONDANSETRON HCL 4 MG/2 ML VIAL IVP PRN (14:50)
[2016-12-06 16:00] VITALS: BP 110/63; PULSE 69; RESP 18; TEMP 97.8; O2SAT 100
--- NOTE | 2016-12-06 18:39 | HHI.PR ---
Review/Management Diagnosis pseudotumor. persistent headache--possible post LP, vs vascular headache. I doubt DELCID is from the pseudotumor since CSF pressure was only borderline increased and it was reduced. Plan continue diamox trial of hydrocodone prn steroids ok to discharge tomorrow from neuro standpoint if stable with po hydrocodone and f/u in my office next week Diagnosis/Plan: Subjective Subjective Comments still c/o severe headache denies vision loss Active Medications Current Medications Medications (Trade) Dose Ordered Sig/Jd Route Start Time Stop Time Status Last Admin (NS Flush) 2 ml UNSCH PRN IV FLUSH 12/01/16 00:00 12/04/16 16:53 (NS Flush) 2 ml BID IV FLUSH 12/01/16 09:00 12/06/16 07:41 (Zofran Inj) 4 mg Q6H PRN IVP 12/01/16 00:00 12/06/16 14:50 (Tylenol) 650 mg Q6H PRN PO 12/01/16 00:00 (Yojana-Colace) 1 tab BID PO 12/01/16 09:00 12/06/16 07:42 (Milk Of Magnesia Liq) 30 ml Q12H PRN PO 12/01/16 00:00 (Senokot) 17.2 mg Q12H PRN PO 12/01/16 00:00 12/02/16 22:08 (Dulcolax Supp) 10 mg DAILY PRN RECTAL 12/01/16 00:00 12/05/16 14:58 (Lactulose Liq) 30 ml DAILY PRN PO 12/01/16 00:00 (Lasix) 40 mg BID PO 12/01/16 09:00 12/06/16 07:43 (Topamax) 50 mg BID PO 12/01/16 09:00 12/06/16 07:42 (Antivert) 25 mg Q8H PRN PO 12/01/16 10:30 12/06/16 17:05 (Morphine Inj) 4 mg Q3H PRN IV 12/01/16 12:00 12/06/16 17:58 (Fioricet 325-50-40) 1 tab Q6H PRN PO 12/03/16 10:30 12/06/16 17:05 (Diamox Sequels) 500 mg TID PO 12/05/16 13:00 12/06/16 17:05 (Protonix) 40 mg DAILY PO 12/06/16 09:00 12/06/16 07:42 Allergies Allergies Coded Allergies Amoxicillin (Verified Allergy, Severe, Anaphylaxis, 11/30/16) Sulfa (Verified Allergy, Severe, RASH, 11/30/16) Ibuprofen (Verified Allergy, Intermediate, HIVES, FACIAL SWELLING., 11/30/16) Tramadol (Verified Allergy, Intermediate, HIVES, 11/30/16) Compazine (Verified Allergy, Unknown, HIVES, 11/30/16) Latex (Verified Allergy, Unknown, 11/30/16) Penicillin (Verified Allergy, Unknown, HIVES, 11/30/16) Imitrex (Verified Adverse Reaction, Severe, VOMITING PASSED OUT, 11/30/16) Exam I&O / VS 12/05/16 12/05/16 12/06/16 15:00 23:00 07:00 Intake Total 720 ml Output Total 500 ml Balance 220 ml Intake Oral 720 ml Output Urine Total 500 ml # Voids 1 2 # Bowel Movements 0 2 Vital Signs Date Time Temp Pulse Resp B/P Pulse Ox O2 Delivery O2 Flow Rate FiO2 12/06/16 16:00 97.8 69 18 110/63 100 12/06/16 12:05 98.0 98 20 125/79 100 12/06/16 12:00 98.0 72 18 104/58 99 12/06/16 08:00 96.7 57 18 112/63 96 12/06/16 04:32 18 12/06/16 03:30 18 12/06/16 00:00 98.0 66 16 115/51 97 12/05/16 23:04 18 12/05/16 20:00 97.4 72 16 99/46 100 Exam Comments alert, speech normal Cn intact-normal vision hyatt Motor 5/5 BUE Objective Micro and Labs Date/Time Procedure Status Source Growth 12/02/16 11:01 Gram Stain - Final Complete Cerebral Spinal Fluid Lumbar Puncture 12/02/16 11:01 CSF Culture - Final Complete Cerebral Spinal Fluid Lumbar Puncture NO GROWTH IN 72 HOURS 12/02/16 11:01 Fungal Smear - Final Resulted Cerebral Spinal Fluid Lumbar Puncture NO FUNGAL ELEMENTS SEEN. 12/02/16 11:01 Fungal Culture Resulted Cerebral Spinal Fluid Lumbar Puncture Pending Antonio Haddad PhD MD Dec 06, 2016 18:39
[2016-12-06 20:00] VITALS: BP 108/55; PULSE 68; RESP 16; TEMP 97.9; O2SAT 99
[2016-12-06] MEDS: ACETAMINOPHEN/HYDROcodone 325 MG/7.5 MG TAB PO PRN (20:31)
[2016-12-06] MEDS: DEXAMETHASONE SOD PHOS 4 MG/ML VIAL IV PUSH SCH (20:35)
--- NOTE | 2016-12-06 23:57 | HHI.PR ---
Subjective Remarks Patient seen this morning around 11 AM. She states that headache continues without improvement. Objective Vital Signs Date Time Temp Pulse Resp B/P Pulse Ox O2 Delivery O2 Flow Rate FiO2 12/06/16 20:00 97.9 68 16 108/55 99 12/06/16 16:00 97.8 69 18 110/63 100 12/06/16 12:05 98.0 98 20 125/79 100 12/06/16 12:00 98.0 72 18 104/58 99 12/06/16 08:00 96.7 57 18 112/63 96 12/06/16 04:32 18 12/06/16 03:30 18 12/06/16 00:00 98.0 66 16 115/51 97 I/O 12/05/16 12/05/16 12/05/16 12/06/16 12/06/16 12/06/16 07:00 15:00 23:00 07:00 15:00 23:00 Intake Total 720 ml 240 ml Output Total 500 ml Balance 220 ml 240 ml Intake Oral 720 ml 240 ml IV Total 0 ml Output Urine Total 500 ml # Voids 1 1 2 4 # Bowel Movements 0 2 2 Result Diagram: 12/05/16 1241 12/05/16 1241 Objective Remarks GENERAL: patient sitting up in bed. Appears comfortable.lying on right side. Exam otherwise unchanged. SKIN: Warm and dry. HEAD: Normocephalic. EYES: No scleral icterus. No injection or drainage. NECK: Supple, trachea midline. No JVD or lymphadenopathy. CARDIOVASCULAR: Regular rate and rhythm without murmurs, gallops, or rubs. RESPIRATORY: Breath sounds equal bilaterally. No accessory muscle use. GASTROINTESTINAL: Abdomen soft, non-tender, nondistended. MUSCULOSKELETAL: No cyanosis, or edema. BACK: Nontender without obvious deformity. No CVA tenderness. A/P Assessment and Plan 12/05/16 Continue treatment for headache. Labs ordered. Hypokalemia. Potassium 3.2. Potassium ordered. Suspected sleep apnea. Discussed extensively with patient. Recommend follow- up with primary care for evaluation 31-year-old female with a PMH of Pseudotumor Cerebri and Migraine who presented to the ER with complaints of severe headache x2 days. //Pseudotumor Cerebri: follows w/ Dr. 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 Brain MRI/MRV unremarkable. Neurology consulted and following. LP performed by IR, opening pressure was elevated at 25; CSF fluid studies unremarkable to date. Neurosurgery consulted to consider shunt, recommends outpatient follow-up. Neurology recommended medical management if no surgical intervention, continue home Topamax, meclizine, acetazolamide, Lasix. Patient still with intractable headache, await further recommendations by neuro. //Migraine: Patient with history of migraines. The patient continues to have significant headache with associated nausea after LP and normalization of opening pressures. Trial of Fioricet for pain control. IV morphine as needed. Zofran as needed. Follow up neurology recommendations. //Dizziness: suspect secondary to migraine vs vertigo. Continue patient's meclizine. Antiemetics prn. PT eval, no restrictions needed. //Leukocytosis: WBC 17, afebrile, UA clear, CSF essentially unremarkable, no obvious signs of infection, monitor. DVT Prophylaxis: SCD/Teds. Alexander Hernández MD Dec 06, 2016 23:57
[2016-12-07] VITALS: BP 107/53; PULSE 69; RESP 18; TEMP 98.7; O2SAT 95
[2016-12-07] MEDS: DEXAMETHASONE SOD PHOS 4 MG/ML VIAL IV PUSH SCH ×2 (00:39→05:37)
[2016-12-07] MEDS: MORPHINE SULFATE 4 MG/ML INJ IV PRN ×6 (00:40→21:15)
[2016-12-07] MEDS: ACETAMINOPHEN/HYDROcodone 325 MG/7.5 MG TAB PO PRN ×3 (03:09→20:23)
[2016-12-07 07:20] LABS: AUTOMATED NEUTROPHIL # 9.6 TH/MM3 (1.8-7.7); BASOPHIL % 0.4 % (0.0-2.0); HEMATOCRIT 39.6 % (35.0-46.0); HEMO FLAGS DIFF FINAL; LYMPHOCYTE # 1.3 TH/MM3 (1.0-4.8); MEAN CELL VOLUME 82.1 FL (80.0-100.0); MEAN CORPUSCULAR HEMOGLOBIN 26.8 PG (27.0-34.0); MEAN CORPUSCULAR HGB CONC 32.6 % (32.0-36.0); MONO % 1.5 % (0.0-8.0); NEUT % 86.1 % (16.0-70.0); PLATELET COUNT 329 TH/MM3 (150-450); RED BLOOD COUNT 4.82 MIL/MM3 (4.00-5.30); RED CELL DISTRIBUTION WIDTH 13.7 % (11.6-17.2); WHITE BLOOD COUNT 11.2 TH/MM3 (4.0-11.0)
[2016-12-07 07:51] LABS: MAGNESIUM 2.3 MG/DL (1.5-2.5); POTASSIUM 3.2 MEQ/L (3.5-5.1)
[2016-12-07 08:00] VITALS: BP 110/59; PULSE 65; RESP 20; TEMP 97; O2SAT 98
[2016-12-07] MEDS: PANTOPRAZOLE SOD 40 MG DELAYED RELEASE TAB PO SCH ×2 (09:00→10:02)
[2016-12-07] MEDS: TOPIRAMATE 25 MG TAB PO SCH ×2 (09:00→20:22)
[2016-12-07] MEDS: DOCUSATE SODIUM 50 MG/SENNA 8.6 MG TAB PO SCH ×2 (10:02→20:22)
[2016-12-07] MEDS: FUROSEMIDE 40 MG TAB PO SCH ×2 (10:02→20:23)
[2016-12-07] MEDS: SODIUM CHLORIDE 0.9% FLUSH 10 ML FLUSH IV FLUSH SCH ×2 (10:06→20:23)
[2016-12-07] MEDS: acetaZOLAMIDE SEQUELS 500 MG SUSTAINED RELEASE CAP PO SCH ×3 (10:13→18:19)
[2016-12-07] MEDS ORDERED: POTASSIUM CHLORIDE 20 MEQ CONTROLLED RELEASE TAB PO ONE (11:45)
[2016-12-07 12:00] VITALS: BP 124/83; PULSE 102; RESP 20; TEMP 97.4; O2SAT 97
[2016-12-07] MEDS: MECLIZINE HCL 25 MG TAB PO PRN ×3 (13:54→23:29)
[2016-12-07 16:00] VITALS: BP 126/84; PULSE 94; RESP 20; TEMP 98.1; O2SAT 98
[2016-12-07 20:00] VITALS: BP 96/55; PULSE 65; RESP 19; TEMP 96.5; O2SAT 96
[2016-12-07] MEDS: ONDANSETRON HCL 4 MG/2 ML VIAL IVP PRN (21:13)
--- NOTE | 2016-12-07 23:56 | HHI.PR ---
Subjective Remarks Patient seen this morning around 11 AM. she says that headache worse today, cannot stand up without extreme pain. Her is out of town today, not able to go home. Objective Vital Signs Date Time Temp Pulse Resp B/P Pulse Ox O2 Delivery O2 Flow Rate FiO2 12/07/16 20:00 96.5 65 19 96/55 96 12/07/16 16:00 98.1 94 20 126/84 98 12/07/16 12:00 97.4 102 20 124/83 97 12/07/16 08:00 97.0 65 20 110/59 98 12/07/16 00:00 98.7 69 18 107/53 95 I/O 12/06/16 12/06/16 12/06/16 12/07/16 12/07/16 12/07/16 07:00 15:00 23:00 07:00 15:00 23:00 Intake Total 240 ml 1200 ml Output Total 600 ml Balance 240 ml 600 ml Intake Oral 240 ml 1200 ml IV Total 0 ml 0 ml Output Urine Total 600 ml # Voids 2 4 2 1 # Bowel Movements 2 2 0 Result Diagram: 12/07/16 0612/07/16 06 Objective Remarks GENERAL: patient sitting up in bed. Appears comfortable.lying on right side. exam unchanged from yesterday SKIN: Warm and dry. HEAD: Normocephalic. EYES: No scleral icterus. No injection or drainage. NECK: Supple, trachea midline. No JVD or lymphadenopathy. CARDIOVASCULAR: Regular rate and rhythm without murmurs, gallops, or rubs. RESPIRATORY: Breath sounds equal bilaterally. No accessory muscle use. GASTROINTESTINAL: Abdomen soft, non-tender, nondistended. MUSCULOSKELETAL: No cyanosis, or edema. BACK: Nontender without obvious deformity. No CVA tenderness. A/P Assessment and Plan 12/05/16 Continue treatment for headache. Labs ordered. Hypokalemia. Potassium 3.2. Potassium ordered. Suspected sleep apnea. Discussed extensively with patient. Recommend follow- up with primary care for evaluation 31-year-old female with a PMH of Pseudotumor Cerebri and Migraine who presented to the ER with complaints of severe headache x2 days. //Pseudotumor Cerebri: follows w/ Dr. 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 Brain MRI/MRV unremarkable. Neurology consulted and following. LP performed by IR, opening pressure was elevated at 25; CSF fluid studies unremarkable to date. Neurosurgery consulted to consider shunt, recommends outpatient follow-up. Neurology recommended medical management if no surgical intervention, continue home Topamax, meclizine, acetazolamide, Lasix. Patient still with intractable headache, await further recommendations by neuro. //Migraine: Patient with history of migraines. The patient continues to have significant headache with associated nausea after LP and normalization of opening pressures. Trial of Fioricet for pain control. IV morphine as needed. Zofran as needed. Follow up neurology recommendations. //Dizziness: suspect secondary to migraine vs vertigo. Continue patient's meclizine. Antiemetics prn. PT eval, no restrictions needed. //Leukocytosis: WBC 17, afebrile, UA clear, CSF essentially unremarkable, no obvious signs of infection, monitor. DVT Prophylaxis: SCD/Teds. Alexander Hernández MD Dec 07, 2016 23:56
[2016-12-08 00:06] VITALS: BP 101/51; PULSE 64; RESP 20; TEMP 97.3; O2SAT 98
[2016-12-08 00:07] VITALS: BP 101/51; PULSE 64; RESP 19; TEMP 97.3; O2SAT 98
[2016-12-08] MEDS: MORPHINE SULFATE 4 MG/ML INJ IV PRN ×4 (00:09→13:01)
[2016-12-08] MEDS: ONDANSETRON HCL 4 MG/2 ML VIAL IVP PRN ×3 (05:03→12:47)
[2016-12-08 08:00] VITALS: BP 109/63; PULSE 66; RESP 16; TEMP 97.2; O2SAT 100
[2016-12-08] MEDS: TOPIRAMATE 25 MG TAB PO SCH (08:08)
[2016-12-08] MEDS: SODIUM CHLORIDE 0.9% FLUSH 10 ML FLUSH IV FLUSH SCH ×2 (08:08→12:47)
[2016-12-08] MEDS: DOCUSATE SODIUM 50 MG/SENNA 8.6 MG TAB PO SCH ×2 (08:08→08:15)
[2016-12-08] MEDS: FUROSEMIDE 40 MG TAB PO SCH (08:09)
[2016-12-08] MEDS: PANTOPRAZOLE SOD 40 MG DELAYED RELEASE TAB PO SCH (08:10)
[2016-12-08] MEDS: ACETAMINOPHEN/HYDROcodone 325 MG/7.5 MG TAB PO PRN ×2 (08:10→15:11)
[2016-12-08] MEDS: acetaZOLAMIDE SEQUELS 500 MG SUSTAINED RELEASE CAP PO SCH ×2 (08:10→12:47)
[2016-12-08] MEDS ORDERED: POTASSIUM CHLORIDE 20 MEQ CONTROLLED RELEASE TAB PO SCH (09:00)
[2016-12-08] MEDS ORDERED: POTA-163 PO (11:30)
[2016-12-08] MEDS ORDERED: ACETA500 PO (11:30)
[2016-12-08 12:00] VITALS: BP 81/45; PULSE 64; RESP 16; TEMP 97.9; O2SAT 100
[2016-12-08 12:44] LABS: BICARBONATE 19.5 MEQ/L (21.0-32.0); POTASSIUM 3.5 MEQ/L (3.5-5.1)
[2016-12-08] MEDS ORDERED: HYDR-3580 PO (15:52)
--- NOTE | 2016-12-08 22:54 | HHI.DS ---
Discharge Summary Admission Date Nov 30, 2016 at 23:42 Discharge Date: Dec 08, 2016 Admitting Diagnosis pseudotumor cerebri, headache (1) Pseudotumor cerebri ICD Code: G93.2 (2) Migraine ICD Code: G43.909 (3) Leukocytosis ICD Code: D72.829 Brief History - From Admission This is a 31-year-old female with a PMH of Pseudotumor Cerebri and Migraine who presented to the ER with complaints of severe headache x2 days. Follows w/ Dr. Haddad as outpatient, states she was referred to [facility] for HOURLY CAREGIVER Shunt Placement however has been unable to make appointment since she'd have to miss work. On Topamax, Diamox and Lasix at home, reports compliance w/ meds. No fever, chills , nausea or vomiting. On arrival, BP 137/94, HR 110, O2 sat 100% on RA, Afebrile. CBC unremarkable except for WBC 16.2. Chemistry essentially unremarkable. INR 1.0. S/p Lasix, Benadryl and Diamox in ER w/ some improvement. CBC/BMP: 12/07/16 0601 12/08/16 1130 Significant Findings Laboratory Tests Test 12/07/16 12/08/16 06:01 11:30 White Blood Count 11.2 TH/MM3 (4.0-11.0) Mean Corpuscular Hemoglobin 26.8 PG (27.0-34.0) Neutrophils (%) (Auto) 86.1 % (16.0-70.0) Neutrophils # (Auto) 9.6 TH/MM3 (1.8-7.7) Potassium Level 3.2 MEQ/L (3.5-5.1) Carbon Dioxide Level 20.0 MEQ/L 19.5 MEQ/L (21.0-32.0) (21.0-32.0) Estimat Glomerular Filtration 77 ML/MIN (>89) 72 ML/MIN (>89) Rate Random Glucose 208 MG/DL 143 MG/DL (74-106) (74-106) Phosphorus Level 2.4 MG/DL (2.5-4.9) Albumin 3.0 GM/DL (3.4-5.0) Chloride Level 111 MEQ/L (98-107) Blood Urea Nitrogen 19 MG/DL (7-18) Calcium Level 8.1 MG/DL (8.5-10.1) PE at Discharge GENERAL: Well-nourished, well-developed obese female patient in NAD. Sleeping upon arrival, easily awakens. SKIN: Warm and dry. No rash. HEENT: Normocephalic. Atraumatic. Pupils equal and round. Mucous membranes pink and moist. NECK: Supple. Trachea midline. CARDIOVASCULAR: Regular rate and rhythm. S1, S2 noted. No murmur appreciated. RESPIRATORY: No accessory muscle use. Clear to auscultation. Breath sounds equal bilaterally. GASTROINTESTINAL: Abdomen soft, non-tender, nondistended. Normoactive bowel sounds x4. MUSCULOSKELETAL: No obvious deformities. Extremities without clubbing, cyanosis , or edema. NEUROLOGICAL: Awake and alert. No obvious cranial nerve deficits. Motor grossly within normal limits. Normal speech. PSYCHIATRIC: Appropriate mood and affect; insight and judgment normal. Pt update on day of discharge patient says headache continues. Says she feels like she can go home with today. Denies any chest pain or shortness of breath. Hospital Course 12/05/16 Continue treatment for headache. Labs ordered. Hypokalemia. Potassium 3.2. Potassium ordered. Suspected sleep apnea. Discussed extensively with patient. Recommend follow- up with primary care for evaluation 31-year-old female with a PMH of Pseudotumor Cerebri and Migraine who presented to the ER with complaints of severe headache x2 days. //Pseudotumor Cerebri: follows w/ Dr. Haddad as outpatient, referred to [facility] as outpatient for HOURLY CAREGIVER Shunt, now w/ acute/severe headache. Brain MRI/MRV unremarkable. Neurology consulted and following. LP performed by IR, opening pressure was elevated at 25; CSF fluid studies unremarkable to date. Neurosurgery consulted to consider shunt, recommends outpatient follow-up. Neurology recommended medical management if no surgical intervention, continue home Topamax, meclizine, acetazolamide, Lasix. Patient still with intractable headache, await further recommendations by neuro. //Migraine: Patient with history of migraines. The patient continues to have significant headache with associated nausea after LP and normalization of opening pressures. Trial of Fioricet for pain control. IV morphine as needed. Zofran as needed. Follow up neurology recommendations. //Dizziness: suspect secondary to migraine vs vertigo. Continue patient's meclizine. Antiemetics prn. PT eval, no restrictions needed. //Leukocytosis: WBC 17, afebrile, UA clear, CSF essentially unremarkable, no obvious signs of infection, monitor. DVT Prophylaxis: SCD/Teds. Pt Condition on Discharge: Good Discharge Disposition: Discharge Home Discharge Time: > 30 minutes Discharge Instructions DIET: Follow Instructions for: Heart Healthy Diet Activities you can perform: Regular-No Restrictions, See Additionl Instruction Activities to Avoid: Driving Follow up Referrals: Neurology - Next Day with Antonio Haddad PhD PCP Follow-up - 1 Week New Medications: Potassium Chloride ER (Potassium Chloride ER) 20 Meq Tab 20 MEQ PO DAILY Electrolyte Replacement #30 Ref 0 TAB Hydrocodone-Acetaminophen (Hydrocodone-Acetaminophen) 7.5-325 mg Tab 1 TAB PO Q6H PRN HEADACHE #20 TAB Changed Medications: Acetazolamide ER 12 HR (Diamox Sequels ER 12 HR) 500 Mg Cap 500 MG PO Q8HR Glaucoma Days 30 Ref 0 CAP (Changed from: Q12HR) Continued Medications: Furosemide (Lasix) 40 Mg Tab 40 MG PO BID Ref 0 TAB Meclizine (Meclizine) 25 Mg Tab 25 MG PO DIRECTED PRN VERTIGO Ref 0 TAB Topiramate (Topamax) 50 Mg Tab 50 MG PO BID Control Seizures Ref 0 TAB Alexander Hernández MD Dec 08, 2016 22:54
== END 2016-12-08 16:53 | disposition home or self-care (01) ==
LOC: NEPE 20:23 → NEDA 23:42 → NEPGCP 12-01 02:16 → N07A 12-04 21:20
PROVIDERS: ADMIT Internal Medicine; ATTEND Internal Medicine
DX: G93.2 Benign intracranial hypertension (principal); R51 Headache; G43.909 Migraine, unspecified, not intractable, without status migrainosus; D72.829 Elevated white blood cell count, unspecified; E87.6 Hypokalemia; H53.8 Other visual disturbances; R06.83 Snoring; J45.909 Unspecified asthma, uncomplicated; E66.01 Morbid (severe) obesity due to excess calories; Z98.2 Presence of cerebrospinal fluid drainage device
CPT/HCPCS: 62270; 70546; 70551; 76937; 77003; 80048; 80053; 80069; 81001; 82945; 83735; 84157; 84702; 85007; 85025; 85027; 85610; 85730; 86403; 87070; 87102; 87205; 87206; 89051; 96361; 96372; 96374; 96375; 96376; 97162; 99285; A9579; G0378; G8987; G8988; J1100; J1170; J1200; J2270; J2405; J2765; J3250; J7030

== ENCOUNTER 2016-12-11 17:37 | Emergency (ER) | payer SELFPAY ==
[~2016-12-11] VITALS: Ht 154.9 cm; Wt 108.0 kg
[~2016-12-11 17:37] MED LIST changes: +HYDR-3580 PO; -MACR100C3 PO; +POTA-163 PO; -PRED20 PO; -ZOFR4TAB3 SL
[2016-12-11 17:39] VITALS: BP 159/81; PULSE 96; RESP 20; TEMP 99.2; O2SAT 98
[2016-12-11 19:59] VITALS: BP 173/90; PULSE 71; RESP 16; O2SAT 100
--- NOTE | 2016-12-11 20:58 | PD ---
HPI Chief Complaint: Headache Time Seen by Provider: 20:27 Travel History International Travel<30 days: No Contact w/Intl Traveler<30days: No Traveled to known affect area: No History of Present Illness HPI 31-year-old female came to the emergency room with history of headache. Patient is in the emergency room frequently and in fact I saw her yesterday for the exact same complaint. She has history of pseudotumor cerebri and had a spinal tap done with interventional radiology with opening pressure of 24. He had taken out 30 mL of CSF and brought the pressure down to 5. Her neurologist is Dr. Haddad and I discussed her case at length with him. Last time when she was admitted which was 2-3 weeks ago she was consulted with the neurosurgeon Dr. Tillman who did not think she qualified for a BARREL PAINTER shunt. However patient wants a BARREL PAINTER shunt and wants a second opinion for which Dr. Haddad is trying to send her to [facility]. In the meanwhile patient has been here 2-3 times already with headache and loss of peripheral vision complain. Vital signs are stable. Patient was discharged home yesterday with the recommendation to call her neurologist Dr. Haddad to get an appointment within this week. Patient tells me that she tried to call his office but did not get a call back. [facility] Past Medical History Narrative Medical List of her past medical, surgical, social and family history is reviewed from the nursing note. Hx Anticoagulant Therapy: No Asthma: Yes Blood Disorders: No Cancer: No Cardiovascular Problems: No Chemotherapy: No Diabetes: No Diminished Hearing: No Endocrine: No Genitourinary: Yes (KIDNEY STONES) Headaches: Yes Immune Disorder: No Kidney Stones: Yes Musculoskeletal: No Neurologic: Yes (IDIOPATHIC INTERCRANIAL HYPERTENSION, pseudotumor cerebri) Psychiatric: No Reproductive: Yes (Miscarriages X7) Respiratory: Yes (asthma) Immunizations Current: Yes Migraines: Yes Radiation Therapy: No : 8 Para: 1 Miscarriage: 7 Dilation and Curettage (D&C): Yes (x3 ) Past Surgical History Section: Yes Cholecystectomy: Yes Genitourinary Surgery: Yes (STENTS KIDNEYS, LITHOTRIPSIES) Other Surgery: Yes (L KIDNEY STENTx 6) Social History Alcohol Use: No Tobacco Use: No Substance Use: No Allergies-Medications (Allergen,Severity, Reaction): Coded Allergies: Sulfa (Sulfonamide Antibiotics) (Unverified Allergy, Severe, RASH, 12/13/16 ) amoxicillin (Unverified Allergy, Severe, Anaphylaxis, 12/13/16) ibuprofen (Unverified Allergy, Intermediate, HIVES, FACIAL SWELLING., 12/13) tramadol (Unverified Allergy, Intermediate, HIVES, 12/13/16) hives, sewll up latex (Unverified Allergy, Unknown, 12/13/16) penicillin G (Unverified Allergy, Unknown, HIVES, 12/13/16) prochlorperazine (Unverified Allergy, Unknown, HIVES, 12/13/16) sumatriptan (Unverified Adverse Reaction, Severe, VOMITING PASSED OUT, ) Comments List of her allergies reviewed from the nursing note. Reported Meds & Prescriptions Reported Meds & Active Scripts Active Hydrocodone-Acetaminophen 7.5-325 mg Tab 1 Tab PO Q6H PRN Potassium Chloride ER (Potassium Chloride) 20 Meq Tab 20 Meq PO DAILY Diamox Sequels ER 12 HR (Acetazolamide) 500 Mg Cap 500 Mg PO Q8HR 30 Days Reported Lasix (Furosemide) 40 Mg Tab 40 Mg PO BID Topamax (Topiramate) 50 Mg Tab 50 Mg PO BID Meclizine (Meclizine HCl) 25 Mg Tab 25 Mg PO DIRECTED PRN Narrative Medication List of her home medications reviewed from the nursing note. Review of Systems Except as stated in HPI: all other systems reviewed are Neg Physical Exam Narrative GENERAL: Awake, alert, obese, moderate distress SKIN: Focused skin assessment warm/dry. HEAD: Atraumatic. Normocephalic. EYES: Pupils equal and round. No scleral icterus. No injection or drainage. ENT: No nasal bleeding or discharge. Mucous membranes pink and moist. NECK: Trachea midline. No JVD. CARDIOVASCULAR: Regular rate and rhythm. No murmur appreciated. RESPIRATORY: No accessory muscle use. Clear to auscultation. Breath sounds equal bilaterally. GASTROINTESTINAL: Abdomen soft, non-tender, nondistended. Hepatic and splenic margins not palpable. MUSCULOSKELETAL: No obvious deformities. No clubbing. No cyanosis. No edema. NEUROLOGICAL: Awake and alert. No obvious cranial nerve deficits. Motor grossly within normal limits. Normal speech. PSYCHIATRIC: Appropriate mood and affect; insight and judgment normal. Data Data Last Documented VS Vital Signs Date Time Temp Pulse Resp B/P Pulse Ox O2 Delivery O2 Flow Rate FiO2 12/11/16 19:59 71 16 173/90 100 Room Air 12/11/16 17:39 99.2 Orders Acetamin-Hydrocod 325-5 Mg ([place] 5-325 (12/11/16 21:00) MDM Medical Decision Making Medical Screen Exam Complete: Yes Emergency Medical Condition: Yes Medical Record Reviewed: Yes Differential Diagnosis Acute on chronic headache, chronic headache, drug-seeking behavior Narrative Course 9:06 PM I discussed the case again with Dr. Haddad. He told me that he never heard from her. However he recommended that the patient should be treated for pain and then discharged. She definitely does not require any more interventional studies including LP. He wants to see her in his office at 10 in the morning. I have discussed this with the patient and ordered hydrocodone total of 10 mg. She will be discharged. Procedures EKG Prior to Arrival: No Diagnosis Primary Impression: Headache Qualified Code: R51 - Intractable episodic headache, unspecified headache type Additional Impression: Chronic headache Qualified Code: R51 - Chronic intractable headache, unspecified headache type Referrals: Antonio Haddad PhD 1 day Additional Instructions: Please see Dr. Haddad at 10:00 in his office tomorrow. He will be expecting you. Med/Other Pt SpecificInfo: No Change to Meds Disposition: 01 DISCHARGE HOME Condition: Stable Stephen Barksdale MD Dec 11, 2016 20:58 Stephen Barksdale MD Dec 11, 2016 20:58
[2016-12-11] MEDS ORDERED: ACETAMINOPHEN/HYDROcodone 325 MG/5 MG TAB PO ONE (21:00)
[2016-12-21] MEDS ORDERED: HYDR-3366 PO (22:28)
[2016-12-21] MEDS ORDERED: ZOFR4TAB PO (22:28)
== END 2016-12-11 21:21 | disposition home or self-care (01) ==
LOC: NEPE 17:37
DX: R51 Headache (principal); Z98.2 Presence of cerebrospinal fluid drainage device; Z88.0 Allergy status to penicillin; Z87.442 Personal history of urinary calculi; I10 Essential (primary) hypertension; J45.909 Unspecified asthma, uncomplicated
CPT/HCPCS: 99283

== ENCOUNTER 2016-12-13 20:39 | Observation (INO) | payer SELFPAY ==
[~2016-12-13] VITALS: Ht 154.9 cm; Wt 108.0 kg
[2016-12-13 20:41] VITALS: BP 145/91; PULSE 88; RESP 16; TEMP 98.8; O2SAT 100
[2016-12-13 22:40] VITALS: BP 141/77; PULSE 64; RESP 18; O2SAT 100
--- NOTE | 2016-12-13 22:45 | PD ---
HPI Chief Complaint: Neuro Symptoms/ Deficits Time Seen by Provider: 22:45 Travel History International Travel<30 days: No Contact w/Intl Traveler<30days: No Traveled to known affect area: No History of Present Illness HPI 31-year-old female came to the emergency room with history of headache. This is the third time in past 5 days that she has come to the emergency room and constantly I have seen her all 3 times. Patient has history of pseudotumor cerebri and she had a tap done under interventional radiology on Friday. The opening pressure was 24 then. 30 ML's of fluid was taken out and the pressure was brought down to 5. I had discussed both times with her neurologist Dr. Haddad and the decision was to discharge her home and he would follow up with her in his office. She is back here again today saying that she is having vision issues. Which by the way had been her complains the previous 2 times. I asked her if she had seen Dr. Haddad and she said she did and he had asked her to come to the emergency room to get admitted. Plan as per Dr. Haddad was also to have ophthalmology see her and do a funduscopy as an outpatient. I'm not sure if that happened. Vital signs are stable. PFSH Past Medical History Narrative Medical List of her past medical, surgical, social and family history is reviewed from the nursing note. Hx Anticoagulant Therapy: No Asthma: Yes Blood Disorders: No Cancer: No Cardiovascular Problems: No Chemotherapy: No Diabetes: No Diminished Hearing: No Endocrine: No Genitourinary: Yes (KIDNEY STONES) Headaches: Yes Immune Disorder: No Kidney Stones: Yes Musculoskeletal: No Neurologic: Yes (IDIOPATHIC INTERCRANIAL HYPERTENSION, pseudotumor cerebri) Psychiatric: No Reproductive: Yes (Miscarriages X7) Respiratory: Yes (asthma) Immunizations Current: Yes Migraines: Yes Radiation Therapy: No ?: Not LMP: current : 8 Para: 1 Miscarriage: 7 Dilation and Curettage (D&C): Yes (x3 ) Past Surgical History Section: Yes Cholecystectomy: Yes Genitourinary Surgery: Yes (STENTS KIDNEYS, LITHOTRIPSIES) Other Surgery: Yes (L KIDNEY STENTx 6) Social History Alcohol Use: No Tobacco Use: Yes Substance Use: No Allergies-Medications (Allergen,Severity, Reaction): Coded Allergies: Sulfa (Sulfonamide Antibiotics) (Unverified Allergy, Severe, RASH, 12/13/16 ) amoxicillin (Unverified Allergy, Severe, Anaphylaxis, 12/13/16) ibuprofen (Unverified Allergy, Intermediate, HIVES, FACIAL SWELLING., 12/13) tramadol (Unverified Allergy, Intermediate, HIVES, 12/13/16) hives, sewll up latex (Unverified Allergy, Unknown, 12/13/16) penicillin G (Unverified Allergy, Unknown, HIVES, 12/13/16) prochlorperazine (Unverified Allergy, Unknown, HIVES, 12/13/16) sumatriptan (Unverified Adverse Reaction, Severe, VOMITING PASSED OUT, ) Comments List of her allergies reviewed from the nursing note. Reported Meds & Prescriptions Reported Meds & Active Scripts Active Hydrocodone-Acetaminophen 7.5-325 mg Tab 1 Tab PO Q6H PRN Potassium Chloride ER (Potassium Chloride) 20 Meq Tab 20 Meq PO DAILY Diamox Sequels ER 12 HR (Acetazolamide) 500 Mg Cap 500 Mg PO Q8HR 30 Days Reported Lasix (Furosemide) 40 Mg Tab 40 Mg PO BID Topamax (Topiramate) 50 Mg Tab 50 Mg PO BID Meclizine (Meclizine HCl) 25 Mg Tab 25 Mg PO DIRECTED PRN Narrative Medication List of her home medications reviewed from the nursing note. Review of Systems Except as stated in HPI: all other systems reviewed are Neg Physical Exam Narrative GENERAL: Awake, alert, obese, moderate distress SKIN: Focused skin assessment warm/dry. HEAD: Atraumatic. Normocephalic. EYES: Pupils equal and round. No scleral icterus. No injection or drainage. ENT: No nasal bleeding or discharge. Mucous membranes pink and moist. NECK: Trachea midline. No JVD. CARDIOVASCULAR: Regular rate and rhythm. No murmur appreciated. RESPIRATORY: No accessory muscle use. Clear to auscultation. Breath sounds equal bilaterally. GASTROINTESTINAL: Abdomen soft, non-tender, nondistended. Hepatic and splenic margins not palpable. MUSCULOSKELETAL: No obvious deformities. No clubbing. No cyanosis. No edema. NEUROLOGICAL: Awake and alert. No obvious cranial nerve deficits. Motor grossly within normal limits. Normal speech. PSYCHIATRIC: Appropriate mood and affect; insight and judgment normal. Data Data Last Documented VS Vital Signs Date Time Temp Pulse Resp B/P Pulse Ox O2 Delivery O2 Flow Rate FiO2 12/13/16 23:33 16 12/13/16 22:40 64 141/77 100 Room Air 12/13/16 20:41 98.8 Orders Acetazolamide Inj (Diamox Inj) (12/13/16 23:00) Morphine Inj (Morphine Inj) (12/13/16 23:00) Place In Observation (12/13/16 ) Vital Signs (Adult) Q4H (12/13/16 23:39) Activity Oob Ad Tanja (12/13/16 23:39) Diet Regular Basic (12/14/16 Breakfast) Sodium Chlor 0.9% 1000 Ml Inj (Ns 1000 M (12/13/16 23:39) Sodium Chloride 0.9% Flush (Ns Flush) (12/13/16 23:45) Sodium Chloride 0.9% Flush (Ns Flush) (12/14/16 09:00) Ondansetron Inj (Zofran Inj) (12/13/16 23:45) Scd Bilateral/Knee High SORAYA.BID (12/13/16 23:39) Edwin Bilateral/Knee High SORAYA.QSHIFT (12/13/16 23:39) Acetaminophen (Tylenol) (12/13/16 23:45) Morphine Inj (Morphine Inj) (12/13/16 23:45) Oxycodone (Roxicodone) (12/13/16 23:45) Docusate Sodium-Senna (Yojana-Colace) (12/14/16 09:00) Magnesium Hydroxide Liq (Milk Of Magnesi (12/13/16 23:45) Sennosides (Senokot) (12/13/16 23:45) Bisacodyl Supp (Dulcolax Supp) (12/13/16 23:45) Lactulose Liq (Lactulose Liq) (12/13/16 23:45) Complete Blood Count With Diff (12/13/16 23:44) Basic Metabolic Panel (Bmp) (12/13/16 23:44) ^ Saline Lock (12/13/16 23:44) Morphine Inj (Morphine Inj) (12/13/16 23:45) Consult Neurology (12/13/16 ) Admit Order (Ed Use Only) (12/13/16 23:47) [facility] Medical Decision Making Medical Screen Exam Complete: Yes Emergency Medical Condition: Yes Medical Record Reviewed: Yes Differential Diagnosis Acute on chronic headache, questionable malingering Narrative Course 11:52 PM I tried calling Dr. Haddad but he is not power electronics research engineer and the answering service would not call him. At this point patient's complaints are all subjective. She just recently had a spinal tap done by IR with the opening pressure that was not significantly high. He had taken 30 ML's of fluid out. I have ordered IV Diamox and IV morphine for her. At this point I don't have any choice but to admit her since she has visited the ER so frequently in just few days. I discussed this with the hospitalist and she agrees. Patient will be admitted for intractable headache as an observation. I also put a call out for Dr. French who is power electronics research engineer for ophthalmology but have not heard back from her yet. 12:30 AM I discussed with Dr. French and requested her consult to see the patient and do a fundoscopy. Procedures EKG Prior to Arrival: No Physician Communication Physician Communication Dr. French Diagnosis Primary Impression: Intractable headache Qualified Code: R51 - Chronic intractable headache, unspecified headache type Admitting Information Admitting Physician Requests: Observation Stephen Barksdale MD Dec 13, 2016 22:45
[2016-12-13] MEDS ORDERED: MORPHINE SULFATE 8 MG/ML INJ IV PUSH ONE ×2 (23:00→23:45)
[2016-12-13] MEDS ORDERED: LACTULOSE SYRUP 20 GM/30 ML CUP PO PRN (23:45)
[2016-12-13] MEDS ORDERED: SENNOSIDES 8.6 MG TAB PO PRN (23:45)
[2016-12-13] MEDS ORDERED: BISACODYL 10 MG SUPP RECTAL PRN (23:45)
[2016-12-13] MEDS ORDERED: SODIUM CHLORIDE 0.9% FLUSH 10 ML FLUSH IV FLUSH PRN (23:45)
[2016-12-13] MEDS ORDERED: MORPHINE SULFATE 4 MG/ML INJ IV PRN (23:45)
[2016-12-13] MEDS ORDERED: ACETAMINOPHEN 325 MG TAB PO PRN (23:45)
[2016-12-13] MEDS ORDERED: MAGNESIUM HYDROXIDE SUSP 30 ML CUP PO PRN (23:45)
--- NOTE | 2016-12-13 23:47 | HHI.HP ---
[facility] Antonio [facility]add[facility], PhD, MD Admission Diagnosis Diagnoses: (1) Intractable headache Diagnosis: Principal (2) Pseudotumor cerebri Diagnosis: Principal (3) Hypokalemia Diagnosis: Principal (4) Leukocytosis Diagnosis: Principal Travel History International Travel<30 Days: No Contact w/Intl Traveler <30 Da: No Traveled to Known Affected Are: No History of Present Illness This is a 31-year-old female with a PMH of Pseudotumor Cerebri and Migraine who presented to the ER with complaints of headache. States she was told by her Neurologist, Dr. Haddad to go to the ER for subsequent LP. Patient has presented to the ER on multiple occasions for similar complaints. Recent admit 11/30-12/08/16 for same, s/p LP by IR w/ opening pressure 25, CSF unremarkable, s/ p eval by Dr. Tillman, not felt to be candidate for BOTTLING MACHINE OPERATOR Shunt at this time w/ recommendation for outpatient follow up. Seen in ER again on 12/10/16 after discharge for ongoing complaints of headache, s/p LP w/ opening pressure 25, 30cc drained by IR w/ pressure down to 5. Dr. Haddad involved with case during that visit, recommended outpatient follow up w/ him in his office. Returned to ER again on 12/11/16 for c/o headache, Dr. Haddad contacted once again, stated pt never followed up in office. No further LP or imaging indicated at that time. Recommendation for outpatient follow up w/ Dr. Haddad after analgesics, and referral to Ophthalmology. Presents again today for ongoing complaints of headache, states she was told by Dr. Haddad to come to ER for admission and repeat LP. On arrival, BP 145/91, HR 88, O2 sat 100% on RA, Afebrile. WBC 13, no shift. CBC essentially unremarkable except for K+ 3.0. S/p Diamox and Morphine in ER. Dr. Haddad unable to be reached at this time. No indication for repeat LP. Plan is to admit for intractable headache. Review of Systems Except as stated in HPI: all other systems reviewed are Neg ROS: 14 point review of systems otherwise negative. Past Family Social History Past Medical History PMH: Pseudotumor Cerebri and Migraine Past Surgical History PAST SURGICAL HISTORY: , Cholecystectomy, Lithotripsy, Renal Stent Allergies: Coded Allergies: Sulfa (Sulfonamide Antibiotics) (Unverified Allergy, Severe, RASH, 12/13/16 ) amoxicillin (Unverified Allergy, Severe, Anaphylaxis, 12/13/16) ibuprofen (Unverified Allergy, Intermediate, HIVES, FACIAL SWELLING., 12/13) tramadol (Unverified Allergy, Intermediate, HIVES, 12/13/16) hives, sewll up latex (Unverified Allergy, Unknown, 12/13/16) penicillin G (Unverified Allergy, Unknown, HIVES, 12/13/16) prochlorperazine (Unverified Allergy, Unknown, HIVES, 12/13/16) sumatriptan (Unverified Adverse Reaction, Severe, VOMITING PASSED OUT, ) Family History PAST FAMILY HISTORY: Reviewed. No h/o DM or CAD Social History PAST SOCIAL HISTORY: Negative for alcohol or drugs. Positive for tobacco. Physical Exam Vital Signs Vital Signs Date Time Temp Pulse Resp B/P Pulse Ox O2 Delivery O2 Flow Rate FiO2 12/13/16 23:33 16 12/13/16 22:40 64 18 141/77 100 Room Air 12/13/16 20:41 98.8 88 16 145/91 100 Physical Exam PE: GENERAL: Young female in no acute distress. HEENT: PERRLA, EOMI. No scleral icterus or conjunctival pallor. No lid lag or facial droop. CARDIOVASCULAR: Regular rate and rhythm. No obvious murmurs to auscultation. No chest tenderness to palpation. RESPIRATORY: No obvious rhonchi or wheezing. Clear to auscultation. Breath sounds equal bilaterally. GASTROINTESTINAL: Abdomen soft, non-tender, nondistended. BS normal. MUSCULOSKELETAL: Extremities without clubbing, cyanosis, or edema. No obvious deformities. NEUROLOGICAL: Awake, alert and oriented x4. No focal neurologic deficits. Moving both upper and lower extremities spontaneously. Assessment and Plan Problem List: (1) Intractable headache ICD Code: R51 Status: Acute (2) Pseudotumor cerebri ICD Code: G93.2 Status: Chronic (3) Hypokalemia ICD Code: E87.6 Status: Acute (4) Leukocytosis ICD Code: D72.829 Status: Acute Assessment and Plan A/P: 1. Intractable Headache: recent admit and multiple ER presentations for same, s/p Morphine in ER w/ some improvement, ? drug seeking behavior. Continue w/ analgesics/antiemetics. 2. Pseudotumor Cerebri: As above, pt w/ recent admit 11/30-12/08/16 s/p LP w/ opening pressure 25, s/p eval by Dr. Tillman, not candidate for BOTTLING MACHINE OPERATOR shunt, pt remains under impression she will be referred to [facility] for BOTTLING MACHINE OPERATOR Shunt placement. Multiple ER presentations since d/c on 12/08/16 s/p LP w/ opening pressures 20- 25, removal of CSF, was to Dr. Haddad for outpatient follow up and referral to Ophthalmology, but apparently has not done so. States she was told to come to ER by Dr. Haddad for repeat LP. No indication repeat imaging or LP warranted at this time. Continue w/ analgesics/antiemetics. Consult Dr. Haddad. Resume home medications 3. Hypokalemia: K+ 3.0, will replace and recheck. 4. Leukocytosis: WBC 13, no shift, no signs of infection. 5. DVT Prophylaxis: SCD/Teds. 6. Social work for d/c planning as needed. 7. Case discussed w/ ER physician at length. Problem Qualifiers (1) Intractable headache: Qualified Code: R51 - Chronic intractable headache, unspecified headache type Patricia Dickson MD Dec 13, 2016 23:47
[2016-12-14] VITALS (7 sets, daily range): BP systolic 105–133; BP diastolic 53–93; PULSE 54–75; RESP 14–18; TEMP 97.6–98.6; O2SAT 95–100
[2016-12-14] MEDS: ONDANSETRON HCL 4 MG/2 ML VIAL IVP PRN ×3 (00:25→22:18)
[2016-12-14 00:26] LABS: AUTOMATED NEUTROPHIL # 8.5 TH/MM3 (1.8-7.7); BASOPHIL # 0.1 TH/MM3 (0-0.2); BASOPHIL % 0.5 % (0.0-2.0); EOSINOPHIL # 0.2 TH/MM3 (0-0.4); EOSINOPHIL % 1.3 % (0.0-4.0); HEMATOCRIT 35.9 % (35.0-46.0); HEMO FLAGS DIFF FINAL; LYMPH % 26.6 % (9.0-44.0); LYMPHOCYTE # 3.5 TH/MM3 (1.0-4.8); MEAN CELL VOLUME 82.1 FL (80.0-100.0); MEAN CORPUSCULAR HEMOGLOBIN 26.6 PG (27.0-34.0); MEAN CORPUSCULAR HGB CONC 32.4 % (32.0-36.0); MONO % 6.2 % (0.0-8.0); NEUT % 65.4 % (16.0-70.0); PLATELET COUNT 321 TH/MM3 (150-450); RED BLOOD COUNT 4.37 MIL/MM3 (4.00-5.30); RED CELL DISTRIBUTION WIDTH 13.7 % (11.6-17.2)
[2016-12-14 00:52] LABS: BICARBONATE 24.8 MEQ/L (21.0-32.0)
[2016-12-14] MEDS ORDERED: POTASSIUM CHLORIDE 20 MEQ CONTROLLED RELEASE TAB PO ONE ×2 (01:00→03:00)
[2016-12-14] MEDS: SODIUM CHLOR 0.9% 1000 ML INJ 1,000 ML IV SCH ×2 (01:03→09:39)
[2016-12-14] MEDS: MORPHINE SULFATE 4 MG/ML INJ IV PRN ×7 (03:46→23:29)
[2016-12-14] MEDS: acetaZOLAMIDE SEQUELS 500 MG SUSTAINED RELEASE CAP PO SCH ×3 (05:39→20:40)
[2016-12-14] MEDS ORDERED: PNEUMOCOCCAL POLYVALENT INJ 25 MCG/0.5 ML SYR IM ONE (09:00)
[2016-12-14] MEDS: TOPIRAMATE 25 MG TAB PO SCH ×2 (09:30→20:40)
[2016-12-14] MEDS: FUROSEMIDE 40 MG TAB PO SCH ×2 (09:32→20:41)
[2016-12-14] MEDS: SODIUM CHLORIDE 0.9% FLUSH 10 ML FLUSH IV FLUSH SCH ×2 (09:32→20:41)
[2016-12-14] MEDS: DOCUSATE SODIUM 50 MG/SENNA 8.6 MG TAB PO SCH ×2 (09:33→20:40)
[2016-12-14] MEDS ORDERED: DEXAMETHASONE SOD PHOS 20 MG/5 ML VIAL IV PUSH ONE (10:00)
--- NOTE | 2016-12-14 11:45 | MB ---
cc: MARGE BEJARANO DATE OF CONSULTATION: 12/14/2016 REASON FOR CONSULTATION: A 31-year-old right-handed woman with a history of kidney stones. Otherwise she has been very healthy but the last 4 years she has had pseudotumor cerebri, frequent headaches which she thinks of migraines but also other headaches. She has known increased pressure. She has been taking Diamox 500 b.i.d., Lasix, and Topamax 50 b.i.d., she has had two lumbar punctures in the last 2 weeks. She tells me the opening pressure was about 30. She saw Dr[address] Tillman on the of this month. He thought her headaches were out of portion to opening pressure although she reported be improving vision change after an lumbar puncture. He was worried that the headaches was not being resolved by the shot. He recommended she go see certified histologic technician a [facility] optic nerve sheath fenestration. She says she has had over the last month some progressive loss of vision. 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 She has some pain on movement of the right eye. She has some pain on movement of the right eye. She just got some new glasses, she has headaches all over her head. SOCIAL HISTORY She is a smoker, I have asked her to quit. 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 FAMILY HISTORY Positive cancer, negative for seizure, and stroke. PAST MEDICAL HISTORY About 100 pounds weight loss but still weighs over 200 pounds. She has kidney stones. REVIEW OF SYSTEMS Denies any hypertension, diabetes, hypercholesterolemia, myocardial infarction, coronary artery bypass graft arrhythmia, stent angioplasty A fib, Coumadin, hepatic, pulmonary disease, thyroid disease lupus, ulcer, cancer, seizure, stroke. she has had history of migraines. PAST MEDICAL HISTORY ALLERGIES SULFA AMOXIL IBUPROFEN TRAMADOL COMPAZINE LATEX PENICILLIN IMITREX MEDICATIONS: Diamox 500 t.i.d., meclizine, Lasix 40 b.i.d., Topamax 50 b.i.d. p.r.n. morphine. PHYSICAL EXAMINATION: VITAL SIGNS: Afebrile 54, 14, 114/64. HEAD, EYES, EARS, NOSE, AND THROAT: I did look in her right eye, I did not see any major papilledema. She may have a minor amount. Visual hyatt are full peripherally also. She could see my entire face, there was no scotoma. Visual acuity is 20/50 with glasses on OD 20/40 OS. Extraocular intact without nystagmus. Pupils are equal. Face is symmetric, normal station. Tongue was midline. No drift. NEUROLOGIC: Normal strength in upper lower extremities bilaterally. DTRs are trace throughout. Toes downgoing bilaterally. Pinprick is intact throughout. She is not ataxic. Speech is fluent. She is not aphasic. LABORATORY DATA White count 13 otherwise normal. She had an LP done in 12/02/2016. No white cells, no red cells normal protein and glucose. Cryptococcal negative on 12/02/2016. UA at that time was negative. Basic metabolic profile is normal several chloride 110, albumin 3. Coags recently normal. She had a lumbar puncture on 12/10/2016, which was three days ago. Opening pressure was 24, 28 cc of clear CSF were removed. She also had an lumbar puncture on 12/02/2016 opening pressure 25. She had an MR venogram done which was normal on 12/02/2015. MRI of the brain that time was read as normal. No evidence for an mass on the MRI ventricles are somewhat small, considering her age which could be consistent with pseudotumor. No hemorrhage was noted. IMPRESSION Pseudotumor, appears that she has maintained her vision at this time. Significant weight loss, I talked to her about gastric bypass to be considered versus optic nerve sheath fenestration. Her headaches do not go away entirely with the LP and fluid removal. Why she is having the pain in the right eye today is unclear. We could try her with the steroids. There was no evidence for multiple sclerosis or optic neuritis. Although limited examination I did not see massive amounts of papilledema on her funduscopic exam today. I am not sure what her prior. Visual acuity was. I will check a sed rate on her and give her 10 of Decadron to see if that helps, but this problem. I do not think he is a neurological emergency this point but she does need to get up to see [facility] next week and possibly for optic nerve fenestration. It does not sound like the LP is help much with headaches. She feels like her vision is worsened quite a bit in the last week, although I do not have any baseline. Her vision is about 20/50 now with her eye glasses on. Another option would be another LP although she just had one 3 days ago and these are really stock out measures are not going to help her intermediate manager. We should have ophthalmology come in and have a look at her at this point. MD EUSEBIA Shwa/didier /9:48 AM /11:10 AM
--- NOTE | 2016-12-14 13:54 | HHI.PR ---
Subjective Remarks Follow up for headache. The patient reports continued diffuse global headache however worse behind the right eye with increasing pressure and worsening vision. She is very concerned about her vision. She reports photophobia and nausea, but no vomiting since yesterday. She has been able to ambulate in her room. She is tolerating oral intake today. She has no other medical complaints at this time. Objective Vitals Vital Signs Date Time Temp Pulse Resp B/P Pulse Ox O2 Delivery O2 Flow Rate FiO2 12/14/16 11:50 98.2 73 18 131/93 99 12/14/16 08:30 97.8 54 14 114/64 98 12/14/16 07:21 18 12/14/16 04:36 98.6 62 18 105/53 100 12/14/16 01:14 97.6 61 18 133/72 100 12/14/16 00:28 16 12/13/16 23:33 16 12/13/16 22:40 64 18 141/77 100 Room Air 12/13/16 20:41 98.8 88 16 145/91 100 Result Diagram: 12/14/16 0000 12/14/16 0000 Objective Remarks GENERAL: Well-nourished, well-developed obese female patient in [facility]. SKIN: Warm and dry. No rash. HEENT: Normocephalic. Atraumatic. Pupils equal and round. EOMI. Mucous membranes pink and moist. CARDIOVASCULAR: Regular rate and rhythm. S1, S2 noted. No murmur appreciated. RESPIRATORY: No accessory muscle use. Clear to auscultation. Breath sounds equal bilaterally. GASTROINTESTINAL: Abdomen soft, non-tender, nondistended. Normoactive bowel sounds x4. MUSCULOSKELETAL: No obvious deformities. Extremities without clubbing, cyanosis , or edema. NEUROLOGICAL: Awake and alert. No obvious cranial nerve deficits. Motor grossly within normal limits. Moves all extremities spontaneously. Normal speech. PSYCHIATRIC: Appropriate mood and affect; insight and judgment normal. Medications and IVs Current Medications Medications (Trade) Dose Ordered Sig/Jd Route Start Time Stop Time Status Last Admin (NS Flush) 2 ml UNSCH PRN IV FLUSH 12/13/16 23:45 (NS Flush) 2 ml BID IV FLUSH 12/14/16 09:00 12/14/16 09:32 (Zofran Inj) 4 mg Q6H PRN IVP 12/13/16 23:45 12/14/16 00:25 (Tylenol) 650 mg Q6H PRN PO 12/13/16 23:45 (Roxicodone) 5 mg Q4H PRN PO 12/13/16 23:45 (Yojana-Colace) 1 tab BID PO 12/14/16 09:00 12/14/16 09:33 (Milk Of Magnesia Liq) 30 ml Q12H PRN PO 12/13/16 23:45 (Senokot) 17.2 mg Q12H PRN PO 12/13/16 23:45 (Dulcolax Supp) 10 mg DAILY PRN RECTAL 12/13/16 23:45 (Lactulose Liq) 30 ml DAILY PRN PO 12/13/16 23:45 (Morphine Inj) 4 mg Q3H PRN IV 12/14/16 02:45 12/14/16 10:36 (Diamox Sequels) 500 mg Q8HR PO 12/14/16 06:00 12/14/16 05:39 (Lasix) 40 mg BID PO 12/14/16 09:00 12/14/16 09:32 (Topamax) 50 mg BID PO 12/14/16 09:00 12/14/16 09:30 A/P Problem List: (1) Intractable headache ICD Code: R51 Status: Acute (2) Pseudotumor cerebri ICD Code: G93.2 Status: Chronic (3) Hypokalemia ICD Code: E87.6 Status: Acute (4) Leukocytosis ICD Code: D72.829 Status: Acute Assessment and Plan 31-year-old female with a PMH of Pseudotumor Cerebri and Migraine who presented to the ER with complaints of headache Intractable Headache: recent admit and multiple ER presentations for same, s/p Morphine in ER w/ some improvement. ? drug seeking behavior. -Continue w/ analgesics/antiemetics prn. Pseudotumor Cerebri: As above, pt w/ recent admit 11/30-12/08/16 s/p LP w/ opening pressure 25, s/p eval by Dr. Tillman, not candidate for RE[employer]ATION [employer] C[employer] INSULATOR shunt, pt remains under impression she will be referred to [facility] for REFRIGERATION PLANT CORK INSULATOR Shunt placement. Multiple ER presentations since d/c on 12/08/16 s/p LP w/ opening pressures 20- 25, removal of CSF, pressure down to 5. Referred to Dr. Haddad for outpatient follow up and referral to Ophthalmology, but apparently has not done so. States she was told to come to ER by Dr. Haddad for repeat LP and ophthalmology evaluation. -No indication for repeat imaging or LP warranted at this time. -Continue w/ analgesics/antiemetics. -Consult neurology and ophthalmology. -Discussed with Dr. Thao and Dr. Torres, will proceed with repeat LP today -Resume home medications including Lasix 40mg bid, Topamax bid, Diamox 500mg q8h -S/p IV decadron 10mg x1 with some improvement Hypokalemia: K+ 3.0, given po KCl replacement. Recheck labs. Leukocytosis: WBC 13, no shift, no signs of infection. Likely secondary to recent steroids. Monitor. DVT Prophylaxis: SCD/Teds. Discharge Planning Discharge pending further clinical improvement. Not yet ready for discharge. Problem Qualifiers (1) Intractable headache: Qualified Code: R51 - Chronic intractable headache, unspecified headache type Jocy Dia PA-C Dec 14, 2016 1:53 pm
--- NOTE | 2016-12-14 14:53 | PD.RAD ---
Post Procedure Progress Note Pre Procedure Diagnosis: (1) Pseudotumor cerebri Post Procedure Diagnosis: (1) Pseudotumor cerebri Procedure Date: Dec 14, 2016 Supervising Radiologist: Arpan Torres Estimated blood loss: None Plan of Activity Patient to Unit: Nursing Unit Patient Condition: Fair Additional Comments: Opening pressure 28cm/h2o 31 cc of clear csf removed. CSF was clear. Closing pressure less than 5 See PACS Report for procedural detail/treatment Arpan Torres MD Dec 14, 2016 14:53
[2016-12-14] MEDS ORDERED: MORPHINE SULFATE 4 MG/ML INJ IV PUSH ONE (15:45)
[2016-12-14 17:08] LABS: GROSS BLOOD TUBE #1 1+ (0); GROSS BLOOD TUBE #2 2+ (0); SUPERNATE COLOR TUBE #1 CLEAR (CLEAR); SUPERNATE COLOR TUBE #2 CLEAR (CLEAR); SUPERNATE COLOR TUBE #3 CLEAR (CLEAR); SUPERNATE COLOR TUBE #4 CLEAR (CLEAR); VOLUME TUBE # 1 6.7 ML; VOLUME TUBE # 2 7.5 ML; VOLUME TUBE # 4 7.9 ML; WBC TUBE #4 2 /MM3 (0-10)
[2016-12-14 17:09] LABS: CSF LYMPHOCYTES 20 %; CSF MONOCYTES 80 %; CSF NEUTROPHILS 0 %
[2016-12-15] MEDS: MORPHINE SULFATE 4 MG/ML INJ IV PRN ×6 (02:22→23:46)
[2016-12-15 03:32] VITALS: BP 114/55; PULSE 52; RESP 18; TEMP 97.5; O2SAT 96
[2016-12-15] MEDS: acetaZOLAMIDE SEQUELS 500 MG SUSTAINED RELEASE CAP PO SCH ×3 (05:45→21:25)
[2016-12-15 07:43] VITALS: BP 111/65; PULSE 62; RESP 16; TEMP 98.4; O2SAT 100
[2016-12-15] MEDS: TOPIRAMATE 25 MG TAB PO SCH ×2 (07:55→21:25)
[2016-12-15] MEDS: DOCUSATE SODIUM 50 MG/SENNA 8.6 MG TAB PO SCH ×2 (07:55→21:25)
[2016-12-15] MEDS: FUROSEMIDE 40 MG TAB PO SCH ×2 (07:55→21:00)
[2016-12-15] MEDS: SODIUM CHLORIDE 0.9% FLUSH 10 ML FLUSH IV FLUSH SCH ×2 (07:56→21:26)
[2016-12-15 10:47] LABS: AUTOMATED NEUTROPHIL # 9.9 TH/MM3 (1.8-7.7); BASOPHIL % 0.3 % (0.0-2.0); EOSINOPHIL % 0.2 % (0.0-4.0); HEMATOCRIT 34.9 % (35.0-46.0); HEMO FLAGS DIFF FINAL; LYMPH % 19.7 % (9.0-44.0); LYMPHOCYTE # 2.7 TH/MM3 (1.0-4.8); MEAN CELL VOLUME 82.7 FL (80.0-100.0); MEAN CORPUSCULAR HGB CONC 32.7 % (32.0-36.0); MONO % 6.8 % (0.0-8.0); PLATELET COUNT 288 TH/MM3 (150-450); RED BLOOD COUNT 4.23 MIL/MM3 (4.00-5.30); RED CELL DISTRIBUTION WIDTH 13.7 % (11.6-17.2); WHITE BLOOD COUNT 13.6 TH/MM3 (4.0-11.0)
[2016-12-15 10:55] LABS: BICARBONATE 21.4 MEQ/L (21.0-32.0); POTASSIUM 3.7 MEQ/L (3.5-5.1)
[2016-12-15 11:00] VITALS: BP 111/57; PULSE 66; RESP 17; TEMP 98.6; O2SAT 98
[2016-12-15] MEDS: ONDANSETRON HCL 4 MG/2 ML VIAL IVP PRN (11:58)
--- NOTE | 2016-12-15 13:59 | HHI.PR ---
Subjective Remarks Follow up for headache, pseudotumor cerebri. The patient reports she did get some relief shortly after LP yesterday, however now reports continued 10/10 throbbing headache worse at the occipital region. She reports associated dizziness. Reports intermittent nausea, no vomiting. She complains of worsening headache when trying to have BM. She reports a lot of leakage from LP site last night that saturated the dressing, however none today. She does not feel ready for discharge. Still requesting IV morphine for pain. Objective Vitals Vital Signs Date Time Temp Pulse Resp B/P (MAP) Pulse Ox O2 Delivery O2 Flow Rate FiO2 12/15/16 07:43 98.4 62 16 111/65 (80) 100 12/15/16 03:32 97.5 52 18 114/55 (74) 96 12/14/16 23:46 98.2 75 18 125/60 (81) 98 12/14/16 19:53 98.0 72 18 128/57 (80) 95 12/14/16 15:42 98.2 65 18 122/58 (79) 97 Result Diagram: 12/15/16 0843 12/15/16 0843 Objective Remarks GENERAL: Well-nourished, well-developed obese female patient in [facility]. SKIN: Warm and dry. No rash. HEENT: Normocephalic. Atraumatic. Pupils equal and round. EOMI. Mucous membranes pink and moist. CARDIOVASCULAR: Regular rate and rhythm. S1, S2 noted. No murmur appreciated. RESPIRATORY: No accessory muscle use. Clear to auscultation. Breath sounds equal bilaterally. GASTROINTESTINAL: Abdomen soft, non-tender, nondistended. Normoactive bowel sounds x4. MUSCULOSKELETAL: No obvious deformities. Extremities without clubbing, cyanosis , or edema. NEUROLOGICAL: Awake and alert. No obvious cranial nerve deficits. Motor grossly within normal limits. Moves all extremities spontaneously. Normal speech. PSYCHIATRIC: Appropriate mood and affect; insight and judgment normal. Procedures LP done 12/14, opening pressure elevated at 28cm/H2O, 31cc clear CSF removed, closing pressure less than 5 Medications and IVs Current Medications Medications (Trade) Dose Ordered Sig/Jd Route Start Time Stop Time Status Last Admin (NS Flush) 2 ml UNSCH PRN IV FLUSH 12/13/16 23:45 (NS Flush) 2 ml BID IV FLUSH 12/14/16 09:00 8/20/17 07:56 (Zofran Inj) 4 mg Q6H PRN IVP 12/13/16 23:45 12/15/16 11:58 (Tylenol) 650 mg Q6H PRN PO 12/13/16 23:45 (Roxicodone) 5 mg Q4H PRN PO 12/13/16 23:45 12/15/16 07:54 (Yojana-Colace) 1 tab BID PO 12/14/16 09:00 12/14/16 20:40 (Milk Of Magnesia Liq) 30 ml Q12H PRN PO 12/13/16 23:45 (Senokot) 17.2 mg Q12H PRN PO 12/13/16 23:45 (Dulcolax Supp) 10 mg DAILY PRN RECTAL 12/13/16 23:45 (Lactulose Liq) 30 ml DAILY PRN PO 12/13/16 23:45 (Morphine Inj) 4 mg Q3H PRN IV 12/14/16 02:45 12/15/16 15:46 (Diamox Sequels) 500 mg Q8HR PO 12/14/16 06:00 12/15/16 15:09 (Lasix) 40 mg BID PO 12/14/16 09:00 12/15/16 07:55 (Topamax) 50 mg BID PO 12/14/16 09:00 12/15/16 07:55 A/P Problem List: (1) Intractable headache ICD Code: R51 - Headache Status: Acute (2) Pseudotumor cerebri ICD Code: G93.2 - Benign intracranial hypertension Status: Chronic (3) Hypokalemia ICD Code: E87.6 - Hypokalemia Status: Acute (4) Leukocytosis ICD Code: D72.829 - Elevated white blood cell count, unspecified Status: Acute Assessment and Plan 31-year-old female with a PMH of Pseudotumor Cerebri and Migraine who presented to the ER with complaints of headache Intractable Headache: recent admit and multiple ER presentations for same, s/p Morphine in ER w/ some improvement. ? drug seeking behavior. -Continue w/ analgesics/antiemetics prn. Pseudotumor Cerebri: As above, pt w/ recent admit 11/30-12/08/16 s/p LP w/ opening pressure 25, s/p eval by Dr. Tillman, not candidate for SQUAD BOSS shunt, pt remains under impression she will be referred to [facility] for SQUAD BOSS Shunt placement. Multiple ER presentations since d/c on 12/08/16 s/p LP w/ opening pressures 20- 25, removal of CSF, pressure down to 5. Referred to Dr[address] Haddad for outpatient follow up and referral to Ophthalmology, but apparently has not done so. States she was told to come to ER by Dr. Haddad for repeat LP and ophthalmology evaluation. -No indication for repeat imaging or LP warranted at this time. -Continue w/ analgesics/antiemetics, patient requiring multiple doses of IV morphine -Consulted neurology and ophthalmology. -Repeat LP done 12/14, opening pressure elevated at 28cm/H2O, 31cc clear CSF removed, closing pressure less than 5 -CSF studies unremarkable, culture with NGTD -Resumed home medications including Lasix 40mg bid, Topamax bid, Diamox 500mg q8h -S/p IV decadron 10mg x1 with some improvement -Await further recommendations from neurology Hypokalemia: K+ 3.0, given po KCl replacement. Repeat K 3.7. Resolved. Leukocytosis: WBC 13, no shift, no signs of infection. Likely secondary to recent steroids. Monitor. Afebrile. DVT Prophylaxis: SCD/Teds. Avoid chemoprophylaxis with LP. Discharge Planning Discharge pending further clinical improvement. Patient does not feel ready for discharge. Problem Qualifiers (1) Intractable headache: Jocy Dia PA-C Dec 15, 2016 1:59 pm
[2016-12-15 20:02] VITALS: BP 103/55; PULSE 50; RESP 18; TEMP 97.8; O2SAT 96
[2016-12-16] VITALS (7 sets, daily range): BP systolic 95–119; BP diastolic 54–60; PULSE 51–63; RESP 18–20; TEMP 97.5–98.1; O2SAT 97–100
[2016-12-16] MEDS: MORPHINE SULFATE 4 MG/ML INJ IV PRN ×4 (02:58→13:45)
[2016-12-16] MEDS: acetaZOLAMIDE SEQUELS 500 MG SUSTAINED RELEASE CAP PO SCH ×2 (05:41→17:19)
--- NOTE | 2016-12-16 08:34 | HHI.PR ---
Subjective Remarks optho saw evidently acc to pt looks ok Objective Vital Signs Date Time Temp Pulse Resp B/P (MAP) Pulse Ox O2 Delivery O2 Flow Rate FiO2 12/16/16 08:18 111/56 (74) 12/16/16 08:11 98.1 54 18 96/56 (69) 100 12/16/16 05:35 18 12/16/16 05:35 18 12/16/16 04:25 98.0 51 20 119/60 (79) 97 12/16/16 00:03 97.8 61 20 95/54 (68) 97 12/15/16 20:02 97.8 50 18 103/55 (71) 96 12/15/16 11:00 98.6 66 17 111/57 (75) 98 I/O 12/15/16 12/15/16 12/15/16 12/16/16 12/16/16 12/16/16 07:00 15:00 23:00 07:00 15:00 23:00 Intake Total 200 ml 200 ml Balance 200 ml 200 ml Intake Oral 200 ml 200 ml Result Diagram: 12/15/16 0843 12/15/16 0843 Objective Remarks awake alert nad Assessment and Plan Assessment and Plan imp i dont think reyes from pseudotumor i would rx as migraine ok dc if ok with optho we could do botox o/p fu dr hammond daily narcotics bring on chronic daily reyes i will sign off crp ok fu prolactin Peter Weeks MD Dec 16, 2016 08:34
[2016-12-16] MEDS: DOCUSATE SODIUM 50 MG/SENNA 8.6 MG TAB PO SCH (08:54)
[2016-12-16] MEDS: FUROSEMIDE 40 MG TAB PO SCH (08:54)
[2016-12-16] MEDS: TOPIRAMATE 25 MG TAB PO SCH (08:54)
[2016-12-16] MEDS: SODIUM CHLORIDE 0.9% FLUSH 10 ML FLUSH IV FLUSH SCH (09:00)
--- NOTE | 2016-12-16 10:56 | RADRPT ---
EXAM DATE/TIME: 12/14/2016 14:31 [place] COMPARISON: LUMBAR PUNCTURE W/OPENING PRESSURES, December 10, 2016, 12:08. INDICATIONS : Patient is in need of a lumbar puncture for evaluation of opening pressures due to pseudotumor cerebr i. MEDICAL HISTORY : History of migraines, intercranial HTN, asthma, renal stones. SURGICAL HISTORY : History , cholecystectomy, lithotripsy, renal stents. ENCOUNTER: Subsequent ACUITY: 1 week PAIN SCORE: 8/10 LOCATION: head LUMBAR PUNCTURE TIME: 1441 hours FLUORO TIME: 0.9 minutes ACCESS LEVEL: L3-4 OPENING PRESSURE: 28 cm of water CLOSING PRESSURE: <5 cm of water FLUID: 31 cc of clear, yellow CSF was collected and sent to the laboratory for analysis. PROCEDURE : 1. Fluoroscopic guided lumbar puncture. 2. Recording of opening pressure. The risks, benefits and alternatives to the procedure were explained and verbal and written consent w as obtained. The site was prepped in sterile fashion. Full sterile technique was used, including ca p, mask, sterile gloves and gown and a large sterile sheet. Hand hygiene and 2% chlorhexidine and/or betadine/alcohol prep was utilized per protocol for cutaneous antisepsis. The skin and subcutaneous tissues were infiltrated with local anesthetic solution. With fluoroscopic guidance the lumbar thecal sac was punctured at the above level described above and the opening pressure was recorded. The above described fluid was removed without difficulty. The patient tolerated the procedure well and there were no complications. CONCLUSION: Uncomplicated fluoroscopically guided lumbar puncture with pressures as above. Arpan Torres MD on December 16, 2016 at 10:54 Board Certified Radiologist. This report was verified electronically.
[2016-12-16 12:25] LABS: ANA SCREEN NEG (NEG)
--- NOTE | 2016-12-16 14:01 | HHI.DCPOC ---
Discharge Care Plan Diagnosis: (1) Chronic headache (2) Migraine Goals to Promote Your Health * To prevent worsening of your condition and complications * To maintain your health at the optimal level Directions to Meet Your Goals Take your medications as prescribed Follow your dietary instruction Follow activity as directed Keep your appointments as scheduled Take your immunizations and boosters as scheduled If your symptoms worsen call your PCP, if no PCP go to Urgent Care Center or Emergency Room Smoking is Dangerous to Your Health. Avoid second hand smoke Call the 24-hour hour crisis hotline for domestic abuse at Jocy Dia PA-C Dec 16, 2016 14:01
--- NOTE | 2016-12-16 14:18 | HHI.DS ---
Discharge Summary Admission Date Dec 13, 2016 at 23:48 Discharge Date: Dec 16, 2016 Admitting Diagnosis (1) Intractable headache ICD Code: R51 - Headache Status: Acute (2) Pseudotumor cerebri ICD Code: G93.2 - Benign intracranial hypertension Status: Chronic (3) Hypokalemia ICD Code: E87.6 - Hypokalemia Status: Acute (4) Leukocytosis ICD Code: D72.829 - Elevated white blood cell count, unspecified Status: Acute Procedures LP done 12/14, opening pressure elevated at 28cm/H2O, 31cc clear CSF removed, closing pressure less than 5 Brief History - From Admission This is a 31-year-old female with a PMH of Pseudotumor Cerebri and Migraine who presented to the ER with complaints of headache. States she was told by her Neurologist, Dr. Haddad to go to the ER for subsequent LP. Patient has presented to the ER on multiple occasions for similar complaints. Recent admit 11/30-12/08/16 for same, s/p LP by IR w/ opening pressure 25, CSF unremarkable, s/ p eval by Dr. Tillman, not felt to be candidate for INDUSTRIAL TRAINING SPECIALIST Shunt at this time w/ recommendation for outpatient follow up. Seen in ER again on 12/10/16 after discharge for ongoing complaints of headache, s/p LP w/ opening pressure 25, 30cc drained by IR w/ pressure down to 5. Dr. Haddad involved with case during that visit, recommended outpatient follow up w/ him in his office. Returned to ER again on 12/11/16 for c/o headache, Dr. Haddad contacted once again, stated pt never followed up in office. No further LP or imaging indicated at that time. Recommendation for outpatient follow up w/ Dr. Haddad after analgesics, and referral to Ophthalmology. Presents again today for ongoing complaints of headache, states she was told by Dr. Haddad to come to ER for admission and repeat LP. On arrival, BP 145/91, HR 88, O2 sat 100% on RA, Afebrile. WBC 13, no shift. CBC essentially unremarkable except for K+ 3.0. S/p Diamox and Morphine in ER. Dr. Haddad unable to be reached at this time. No indication for repeat LP. Plan is to admit for intractable headache. CBC/BMP: 12/15/16 0843 12/15/16 0843 Significant Findings Laboratory Tests Test 12/14/16 00:00 12/14/16 14:43 12/14/16 20:35 12/15/16 08:43 White Blood Count 13.0 TH/MM3 (4.0-11.0) 13.6 TH/MM3 (4.0-11.0) Mean Corpuscular Hemoglobin 26.6 PG (27.0-34.0) Neutrophils # (Auto) 8.5 TH/MM3 (1.8-7.7) 9.9 TH/MM3 (1.8-7.7) Calcium Level 8.4 MG/DL (8.5-10.1) 8.2 MG/DL (8.5-10.1) Potassium Level 3.0 MEQ/L (3.5-5.1) Chloride Level 110 MEQ/L (98-107) 112 MEQ/L (98-107) CSF Gross Blood (Tube 1) 1+ (0) CSF Gross Blood (Tube 2) 2+ (0) CSF RBC (Tube 4) 297 /MM3 (NONE) Erythrocyte Sedimentation Rate 35 mm/hr (0-20) Hemoglobin 11.4 GM/DL (11.6-15.3) Hematocrit 34.9 % (35.0-46.0) Neutrophils (%) (Auto) 73.0 % (16.0-70.0) Random Glucose 113 MG/DL (74-106) Test 12/15/16 10:53 PE at Discharge GENERAL: Well-nourished, well-developed obese female patient in [facility]. SKIN: Warm and dry. No rash. HEENT: Normocephalic. Atraumatic. Pupils equal and round. EOMI. Mucous membranes pink and moist. CARDIOVASCULAR: Regular rate and rhythm. S1, S2 noted. No murmur appreciated. RESPIRATORY: No accessory muscle use. Clear to auscultation. Breath sounds equal bilaterally. GASTROINTESTINAL: Abdomen soft, non-tender, nondistended. Normoactive bowel sounds x4. MUSCULOSKELETAL: No obvious deformities. Extremities without clubbing, cyanosis , or edema. NEUROLOGICAL: Awake and alert. No obvious cranial nerve deficits. Motor grossly within normal limits. Moves all extremities spontaneously. Normal speech. PSYCHIATRIC: Appropriate mood and affect; insight and judgment normal. Pt update on day of discharge Follow-up for headache. The patient reports feeling slightly better today however still with persistent headache. Denies any nausea or vomiting. Denies any chest pain or shortness breath. She has been seen and cleared by neurology. Hospital Course 31-year-old female with a PMH of Pseudotumor Cerebri and Migraine who presented to the ER with complaints of headache Intractable Headache: recent admit and multiple ER presentations for same, s/p Morphine in ER w/ some improvement. ? drug seeking behavior. She has hx of possible pseudotumor cerebri. Recent admit 11/30-12/08/16 s/p LP w/ opening pressure 25, s/p eval by Dr. Tillman, not candidate for INDUSTRIAL TRAINING SPECIALIST shunt, pt remains under impression she will be referred to [facility] for INDUSTRIAL TRAINING SPECIALIST Shunt placement. Multiple ER presentations since d/c on 12/08/16 s/p LP w/ opening pressures 20-25 , removal of CSF, pressure down to 5. Referred to Dr[address] Haddad for outpatient follow up and referral to Ophthalmology, but apparently has not done so. States she was told to come to ER by Dr. Haddad for repeat LP and ophthalmology evaluation. She was evaluated by ophthalmology, no acute findings, no papilledema noted. She underwent repeat lumbar puncture 12/14, opening pressure elevated at 28cm/H2O, 31cc clear CSF removed, closing pressure less than 5. CSF studies unremarkable, culture with NGTD. She had mild relief the day of her LP, however pain persisted. Resumed home medications including Lasix 40mg bid, Topamax bid, Diamox 500mg q8h She required multiple repeated doses of oxycodone and IV morphine. She was also given IV decadron 10mg x1 with minimal improvement. She was followed by neurology Dr. Weeks throughout admission, felt headache not related to pseudotumor cerebri, could be related to chronic narcotic use, cleared patient for discharge. Could consider outpatient Botox injections for migraine. The patient was resistant to discharge, requesting to see or speak with Dr. Haddad. Contacted Dr. Haddad who cleared the patient for discharge and outpatient follow-up in his office. I spent 35 minutes [id number] with the patient or on the kohli discussing the patient's disposition, prognosis, and plan of care with her caregivers. Over half the time spent was devoted to counseling the patient regarding placement in coordinating care with caregivers and case management. Pt Condition on Discharge: Stable Discharge Disposition: Discharge Home Discharge Time: > 30 minutes Discharge Instructions DIET: Follow Instructions for: As Tolerated, No Restrictions Activities you can perform: Regular-No Restrictions Follow up Referrals: Neurology - 1 Week with Antonio Haddad PhD, MD PCP Follow-up - 1 Week Continued Medications: Acetazolamide ER 12 HR (Diamox Sequels ER 12 HR) 500 Mg Cap 500 MG PO Q8HR for Glaucoma for 30 Days, CAP 0 Refills Furosemide (Lasix) 40 Mg Tab 40 MG PO BID, TAB 0 Refills Hydrocodone-Acetaminophen (Hydrocodone-Acetaminophen) 7.5-325 mg Tab 1 TAB PO Q6H PRN for HEADACHE, #20 TAB Meclizine (Meclizine) 25 Mg Tab 25 MG PO DIRECTED PRN for VERTIGO, TAB 0 Refills Potassium Chloride ER (Potassium Chloride ER) 20 Meq Tab 20 MEQ PO DAILY for Electrolyte Replacement, #30 TAB 0 Refills Topiramate (Topamax) 50 Mg Tab 50 MG PO BID for Control Seizures, TAB 0 Refills Jocy Dia PA-C Dec 16, 2016 14:18
--- NOTE | 2016-12-16 16:57 | PD.CONS ---
History of Present Illness Service Ophthalmology Consult Requested By Reason for Consult eval for papilledema Primary Care Physician Antonio Haddad, PhD, MD Diagnoses: History of Present Illness 35 yo F who states she was diagnosed 5 years ago with Pseudotumor cerebri. Presents to the ER with complaints of headache, blurry vision, and eye pain - s/ p LP 2 days ago and her vision and headache temporarily improved. Patient has presented to the ER on multiple occasions for similar complaints. Pt states she has had 2 eye exams by 2 different Optometrists - one in [place] 1 year ago who saw papilledema and the other one here in [facility] 2 weeks ago. Past Family Social History Allergies: Coded Allergies: Sulfa (Sulfonamide Antibiotics) (Unverified Allergy, Severe, RASH, 12/13/16 ) amoxicillin (Unverified Allergy, Severe, Anaphylaxis, 12/13/16) ibuprofen (Unverified Allergy, Intermediate, HIVES, FACIAL SWELLING., 12/13) tramadol (Unverified Allergy, Intermediate, HIVES, 12/13/16) hives, sewll up latex (Unverified Allergy, Unknown, 12/13/16) penicillin G (Unverified Allergy, Unknown, HIVES, 12/13/16) prochlorperazine (Unverified Allergy, Unknown, HIVES, 12/13/16) sumatriptan (Unverified Adverse Reaction, Severe, VOMITING PASSED OUT, ) Physical Exam Vital Signs Vital Signs Date Time Temp Pulse Resp B/P (MAP) Pulse Ox O2 Delivery O2 Flow Rate FiO2 12/16/16 15:31 97.5 54 18 113/56 (75) 97 12/16/16 11:48 97.9 63 20 104/55 (71) 98 12/16/16 08:18 111/56 (74) 12/16/16 08:11 98.1 54 18 96/56 (69) 100 12/16/16 05:35 18 12/16/16 05:35 18 12/16/16 04:25 98.0 51 20 119/60 (79) 97 12/16/16 00:03 97.8 61 20 95/54 (68) 97 12/15/16 20:02 97.8 50 18 103/55 (71) 96 Physical Exam Va cc at near OD 20/40, OS 20/40 EOM full OU, no diplopia CVF full OU Pupils 2-1 no APD OU IOP normal to palpation OU Anterior exam OD - normal eyelid, C/S W&Q, K clear, AC deep, pupil round, lens clear OS - normal eyelid, C/S W&Q, K clear, AC deep, pupil round, lens clear Dilated exam OD - ON s/p/f, ves normal, vit clear, retina flat OS - ON s/p/f, ves normal, vit clear, retina flat Laboratory Date/Time Source Procedure Growth Status 12/14/16 14:43 Cerebral Spinal Fluid Lumbar Puncture Gram Stain - Final Resulted 12/14/16 14:43 Cerebral Spinal Fluid Lumbar Puncture CSF Culture - Preliminary NO GROWTH IN 48 HOURS. Resulted Result Diagram: 12/15/16 0843 12/15/16 0843 Assessment and Plan Problem List: (1) Pseudotumor cerebri ICD Codes: G93.2 - Benign intracranial hypertension Status: Chronic Plan: No papilledema on dilated exam. Recommend outpatient follow up for visual field test. Myrtle French MD Dec 16, 2016 16:57
[2016-12-21] MEDS ORDERED: HYDR-3366 PO (22:28)
[2016-12-21] MEDS ORDERED: ZOFR4TAB PO (22:28)
== END 2016-12-16 18:53 | disposition home or self-care (01) ==
LOC: NEPE 20:39 → NEDA 23:48 → NEPHCDU 12-14 00:44
PROVIDERS: ADMIT Hospitalist; ATTEND Hospitalist
DX: R51 Headache (principal); G93.2 Benign intracranial hypertension; E87.6 Hypokalemia; D72.829 Elevated white blood cell count, unspecified; G43.909 Migraine, unspecified, not intractable, without status migrainosus; I10 Essential (primary) hypertension; J45.909 Unspecified asthma, uncomplicated; Z87.442 Personal history of urinary calculi; F17.200 Nicotine dependence, unspecified, uncomplicated; Z23 Encounter for immunization
CPT/HCPCS: 62270; 77003; 80048; 84146; 85025; 85652; 86038; 86140; 86592; 87070; 87205; 89051; 90732; 96365; 96375; 96376; 99285; G0378; J1100; J1120; J2270; J2405; J7030; 82164

== ENCOUNTER 2017-01-03 17:21 | Emergency (ER) | payer SELFPAY ==
[~2017-01-03] VITALS: Ht 154.9 cm; Wt 110.0 kg
[~2017-01-03 17:21] MED LIST changes: +HYDR-3366 PO; -HYDR-3580 PO; +ZOFR4TAB PO
[2017-01-03 17:24] VITALS: BP 157/94; PULSE 87; RESP 16; TEMP 98.4; O2SAT 99
[2017-01-03] MEDS ORDERED: HYDR2TAB PO (17:39)
[2017-01-03] MEDS ORDERED: diphenhydrAMINE HCL 50 MG/ML VIAL IVP ONE (17:45)
[2017-01-03] MEDS ORDERED: SODIUM CHLORIDE 0.9% FLUSH 10 ML FLUSH IVF PRN (17:45)
[2017-01-03] MEDS ORDERED: ONDANSETRON HCL 4 MG/2 ML VIAL IVP ONE (17:45)
[2017-01-03] MEDS ORDERED: HYDROmorphone HCL PF 1 MG/ML VIAL IVS ONE (17:45)
[2017-01-03] MEDS ORDERED: METOCLOPRAMIDE HCL 10 MG/2 ML VIAL IVP ONE (17:45)
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
== END 2017-01-03 18:52 | disposition home or self-care (01) ==
LOC: NEPE 17:21
DX: R51 Headache (principal)
CPT/HCPCS: 96374; 96375; 99284; J1170; J1200; J2405

== ENCOUNTER 2017-01-07 16:29 | Emergency (ER) | payer SELFPAY ==
[~2017-01-07 16:29] MED LIST changes: +HYDR2TAB PO
[2017-01-07 17:01] VITALS: BP 135/65; PULSE 94; RESP 18; TEMP 98.7; O2SAT 99
--- NOTE | 2017-01-07 17:27 | PD ---
HPI Chief Complaint: Headache Time Seen by Provider: 17:10 Travel History International Travel<30 days: No Contact w/Intl Traveler<30days: No Traveled to known affect area: No History of Present Illness HPI This is a 31-year-old female who reportedly has a history of pseudotumor cerebri and chronic migraines who presents to the emergency department with intractable headaches that have been going on for 3 days associated with some pain behind her eyes and palpitations earlier today. She is concerned because she thought her heart rate was in the 140s. She called the ambulance to bring her to the emergency department. She says that she's been following with Dr. Haddad and he plans to refer her to Dr. Tillman to get a RN INTERVENTIONAL shunt placed. She says she has an appointment with him tomorrow but she went today because her headaches were worse and they sent her here. She also reports that she's been getting frequent charley horses and several weeks ago she needed to get a magnesium and potassium infusion. PFSH Past Medical History Hx Anticoagulant Therapy: No Asthma: Yes Blood Disorders: No Cancer: No Cardiovascular Problems: No Chemotherapy: No COPD: No Diabetes: No Diminished Hearing: No Endocrine: No Genitourinary: Yes (KIDNEY STONES) Headaches: Yes Immune Disorder: No Kidney Stones: Yes Musculoskeletal: No Neurologic: Yes (IDIOPATHIC INTERCRANIAL HYPERTENSION, pseudotumor cerebri) Psychiatric: No Reproductive: Yes (Miscarriages X7) Respiratory: Yes (asthma) Immunizations Current: Yes Migraines: Yes Radiation Therapy: No Sleep Apnea: No : 8 Para: 1 Miscarriage: 7 Dilation and Curettage (D&C): Yes (x3 ) Past Surgical History Section: Yes Cholecystectomy: Yes Genitourinary Surgery: Yes (STENTS KIDNEYS, LITHOTRIPSIES) Other Surgery: Yes (L KIDNEY STENTx 6) Social History Alcohol Use: No Tobacco Use: Yes Substance Use: No Allergies-Medications (Allergen,Severity, Reaction): Coded Allergies: Sulfa (Sulfonamide Antibiotics) (Unverified Allergy, Severe, RASH, 01/03/17) amoxicillin (Unverified Allergy, Severe, Anaphylaxis, 01/03/17) ibuprofen (Unverified Allergy, Intermediate, HIVES, FACIAL SWELLING., ) tramadol (Unverified Allergy, Intermediate, HIVES, 01/03/17) hives, sewll up latex (Unverified Allergy, Unknown, 01/03/17) penicillin G (Unverified Allergy, Unknown, HIVES, 01/03/17) prochlorperazine (Unverified Allergy, Unknown, HIVES, 01/03/17) sumatriptan (Unverified Adverse Reaction, Severe, VOMITING PASSED OUT, 01/03) Reported Meds & Prescriptions Reported Meds & Active Scripts Active Potassium Chloride ER (Potassium Chloride) 20 Meq Tab 20 Meq PO DAILY Diamox Sequels ER 12 HR (Acetazolamide) 500 Mg Cap 500 Mg PO Q8HR 30 Days Reported Hydromorphone (Hydromorphone HCl) 2 Mg Tab 2 Mg PO Q4H PRN [place] (Hydrocodone-Acetaminophen) 10-325 Mg Tab 1 Tab PO Q6H PRN Zofran (Ondansetron HCl) 4 Mg Tab 4 Mg PO Q12HR PRN Lasix (Furosemide) 40 Mg Tab 40 Mg PO BID Topamax (Topiramate) 50 Mg Tab 50 Mg PO BID Meclizine (Meclizine HCl) 25 Mg Tab 25 Mg PO DIRECTED PRN Review of Systems Except as stated in HPI: all other systems reviewed are Neg Physical Exam Narrative GENERAL:Well appearing, no acute distress SKIN: Focused skin assessment warm and dry. HEAD: Atraumatic. Normocephalic. EYES: Pupils equal and round. No injection or drainage. ENT: Moist mucous membranes NECK: Trachea midline. CARDIOVASCULAR: Regular rate and rhythm. No murmur appreciated. RESPIRATORY: Clear to auscultation. Breath sounds equal bilaterally. GASTROINTESTINAL: Abdomen soft, non-tender, nondistended. MUSCULOSKELETAL: No obvious deformities. NEUROLOGICAL: Awake and alert. No obvious cranial nerve deficits. No dysarthria or aphasia. No upper or lower extremity drift. No upper extremity ataxia. PSYCHIATRIC: Appropriate mood and affect; insight and judgment normal. Data Data Last Documented VS Vital Signs Date Time Temp Pulse Resp B/P (MAP) Pulse Ox O2 Delivery O2 Flow Rate FiO2 01/07/17 17:57 01/07/17 17:01 98.7 94 18 99 Room Air Orders Orders Complete Blood Count With Diff (01/07/17 17:21) Comprehensive Metabolic Panel (01/07/17 17:21) Magnesium (Mg) (01/07/17 17:21) ^ Insert Iv (01/07/17 17:21) MDM Medical Decision Making Medical Screen Exam Complete: Yes Emergency Medical Condition: Yes Interpretation(s) Afebrile, mild tachycardia, normotensive Differential Diagnosis Pseudotumor cerebri, migraine headache, chronic opiate dependence, electrolyte abnormality Narrative Course This is a 31-year-old female who presents to the emergency department with chronic headaches. She's been told that she has pseudotumor cerebri. On her last hospital admission she had a lumbar puncture which demonstrated an opening pressure of 25 on the upper limit of normal. She was seen by Dr. Weeks on that admission and he said he didn't think that her headaches are related to pseudotumor cerebri and that she either has migraines or opiate-related headaches. She comes in today saying that she's been closely following with Dr. Haddad and she has plans to follow-up with Dr. Tillman for a RN INTERVENTIONAL shunt. She is coming in with intractable headaches. I offered her any nonopiate pain management for her headaches. She says she was additionally concerned about tachycardia which has since resolved and she was concerned that she may have an electrolyte abnormality because she was having charley horses. I did have a kandace and honest discussion with this patient regarding her opiate use. I reviewed her prescription drug database and she has received 34 controlled substance prescriptions from 22 different providers in the past year. I've seen this patient on several occasions. In July 2015 I first saw her when she moved out of town and presented with reports that she had a history of kidney stones. At that time she had a normal CT scan and I had concern for drug-seeking behavior. I saw her in May 2016 and diagnosed her with a left ovarian cyst. Similarly I noticed a pattern on her prescription drug database and expressed concerns about drug-seeking behavior at that time. I told her I was concerned that a RN INTERVENTIONAL shunt may not resolve her symptoms that she has a history of chronic pain and that might be reasonable to try to titrate down on her chronic opiate therapy prior to pursuing such an invasive solution to her headaches. I told her that I was willing to place her in observation for a lumbar puncture for consultation with Dr. Haddad and Dr. Tillman and I was willing to check her electrolytes. She said she can follow-up with Dr. Haddad tomorrow in clinic and initially she said she wanted her electrolytes checked but then she abruptly left AGAINST MEDICAL ADVICE. She's done this once before 2 visits prior to today on a visit where she didn't receive opiate pain control. Patient has stated allergies to ibuprofen, tramadol, Compazine and sumatriptan. She has filled 34 controlled substance prescriptions from 22 different providers in the past year. She's come to the emergency department with multiple pain related complaints. I continue to suspect this patient displays drug-seeking behavior. While she may have some underlying organic pathology, cessation of opiates with likely significantly improve her chronic pain. Diagnosis Primary Impression: Opiate dependence, continuous Disposition: 07 AGAINST MEDICAL ADVICE Condition: Stable Rizwana Kwok MD Jan 07, 2017 17:27
== END 2017-01-07 17:57 | disposition left against medical advice (07) ==
LOC: NEPC 16:29
DX: F11.20 Opioid dependence, uncomplicated (principal); R51 Headache; G93.2 Benign intracranial hypertension; J45.909 Unspecified asthma, uncomplicated; Z76.5 Malingerer [conscious simulation]; Z79.891 Long term (current) use of opiate analgesic; Z79.899 Other long term (current) drug therapy; Z88.2 Allergy status to sulfonamides; Z88.0 Allergy status to penicillin
CPT/HCPCS: 99283

== ENCOUNTER 2017-02-01 20:53 | Observation (INO) | payer SELFPAY ==
[2017-02-01 20:54] VITALS: BP 142/78; PULSE 97; RESP 16; TEMP 98.4; O2SAT 97
[2017-02-01 21:46] VITALS: BP 151/87; PULSE 90; RESP 18; O2SAT 98
[2017-02-01] MEDS ORDERED: SODIUM CHLOR 0.9% 1000 ML INJ 1,000 ML IV ONE (22:03)
--- NOTE | 2017-02-01 22:06 | PD ---
HPI Chief Complaint: Headache Time Seen by Provider: 21:50 Travel History International Travel<30 days: No Contact w/Intl Traveler<30days: No Traveled to known affect area: No History of Present Illness HPI This is a 32-year-old female with reported history of pseudotumor cerebri, migraines, presents for evaluation of headache. She reports that at 6 PM she developed a generalized head pressure, photophobia, nausea, 2 episodes of emesis , feels like she is "looking out of a kaleidoscope" and she feels like her CSF pressure is elevated. She reports that when she gets these symptoms she typically gets a lumbar puncture with improvement of her symptoms. She reports that typically medications are not helpful with her symptoms. She is currently on a regimen of Diamox, Topamax, Lasix for her headaches, prescribed by neurologist Dr. Haddad, which she has been compliant with these medications. She denies any recent illness, abdominal pain, chest pain. Denies recent travel. No other complaints at this time. PFSH Past Medical History Hx Anticoagulant Therapy: No Asthma: Yes Blood Disorders: No Cancer: No Cardiovascular Problems: No Chemotherapy: No COPD: No Diabetes: No Diminished Hearing: No Endocrine: No Genitourinary: Yes (KIDNEY STONES) Headaches: Yes Immune Disorder: No Kidney Stones: Yes Musculoskeletal: No Neurologic: Yes (IDIOPATHIC INTERCRANIAL HYPERTENSION, pseudotumor cerebri) Psychiatric: No Reproductive: Yes (Miscarriages X7) Respiratory: Yes (asthma) Immunizations Current: Yes Migraines: Yes Radiation Therapy: No Sleep Apnea: No Tetanus Vaccination: Unknown Influenza Vaccination: No ?: Not : 8 Para: 1 Miscarriage: 7 Dilation and Curettage (D&C): Yes (x3 ) Past Surgical History Section: Yes Cholecystectomy: Yes Genitourinary Surgery: Yes (STENTS KIDNEYS, LITHOTRIPSIES) Other Surgery: Yes (L KIDNEY STENTx 6) Social History Alcohol Use: No Tobacco Use: No Substance Use: No Allergies-Medications (Allergen,Severity, Reaction): Coded Allergies: Sulfa (Sulfonamide Antibiotics) (Unverified Allergy, Severe, RASH, 02/01/17 ) amoxicillin (Unverified Allergy, Severe, Anaphylaxis, 02/01/17) ketorolac (Verified Allergy, Severe, Anaphylaxis, 02/02/17) anaphylaxis per patient ibuprofen (Unverified Allergy, Intermediate, HIVES, FACIAL SWELLING., 02/01) tramadol (Unverified Allergy, Intermediate, HIVES, 02/01/17) hives, sewll up latex (Unverified Allergy, Unknown, 02/01/17) penicillin G (Unverified Allergy, Unknown, HIVES, 02/01/17) prochlorperazine (Unverified Allergy, Unknown, HIVES, 02/01/17) sumatriptan (Unverified Adverse Reaction, Severe, VOMITING PASSED OUT, 02/01/17) Reported Meds & Prescriptions Reported Meds & Active Scripts Active Potassium Chloride ER (Potassium Chloride) 20 Meq Tab 20 Meq PO DAILY Diamox Sequels ER 12 HR (Acetazolamide) 500 Mg Cap 500 Mg PO Q8HR 30 Days Reported [place] (Hydrocodone-Acetaminophen) 10-325 Mg Tab 1 Tab PO Q6H PRN Zofran (Ondansetron HCl) 4 Mg Tab 4 Mg PO Q12HR PRN Lasix (Furosemide) 40 Mg Tab 40 Mg PO BID Topamax (Topiramate) 50 Mg Tab 50 Mg PO BID Meclizine (Meclizine HCl) 25 Mg Tab 25 Mg PO DIRECTED PRN Review of Systems Except as stated in HPI: all other systems reviewed are Neg Physical Exam Narrative GENERAL: Well-developed well-nourished female resting comfortably in hospital bed. Vital signs reviewed. SKIN: Warm and dry. HEAD: Atraumatic. Normocephalic. EYES: Pupils equal and round reactive to light extraocular muscles are intact. No scleral icterus. No injection or drainage. ENT: No nasal bleeding or discharge. Mucous membranes pink and moist. NECK: Trachea midline. No JVD. CARDIOVASCULAR: Regular rate and rhythm. No murmur appreciated. RESPIRATORY: No accessory muscle use. Clear to auscultation. Breath sounds equal bilaterally. GASTROINTESTINAL: Abdomen soft, non-tender, nondistended. Hepatic and splenic margins not palpable. MUSCULOSKELETAL: No obvious deformities. No clubbing. No cyanosis. No edema. NEUROLOGICAL: Awake and alert. No obvious cranial nerve deficits. Motor grossly within normal limits. Normal speech. PSYCHIATRIC: Appropriate mood and affect; insight and judgment normal. Data Data Last Documented VS Vital Signs Date Time Temp Pulse Resp B/P (MAP) Pulse Ox O2 Delivery O2 Flow Rate FiO2 02/01/17 23:16 63 18 128/60 (82) 100 Room Air 02/01/17 20:54 98.4 Orders Orders Complete Blood Count With Diff (02/01/17 22:03) Comprehensive Metabolic Panel (02/01/17 22:03) Ecg Monitoring (02/01/17 22:03) Iv Access Insert/Monitor (02/01/17 22:03) Oximetry (02/01/17 22:03) Sodium Chloride 0.9% Flush (Ns Flush) (02/01/17 22:15) Diphenhydramine Inj (Benadryl Inj) (02/01/17 22:15) Metoclopramide Inj (Reglan Inj) (02/01/17 22:15) Sodium Chlor 0.9% 1000 Ml Inj (Ns 1000 M (02/01/17 22:03) Ed Urine Pregnancytest Poc (02/01/17 22:03) Ondansetron Inj (Zofran Inj) (02/01/17 23:00) Admit Order (Ed Use Only) (02/02/17 00:10) Place In Observation (02/02/17 ) Vital Signs (Adult) SORAYA.Q4H (02/02/17 00:11) Sodium Chloride 0.9% Flush (Ns Flush) (02/02/17 00:15) Sodium Chloride 0.9% Flush (Ns Flush) (02/02/17 09:00) Labs Laboratory Tests Test 02/01/17 22:05 White Blood Count 13.0 TH/MM3 Red Blood Count 4.19 MIL/MM3 Hemoglobin 11.3 GM/DL Hematocrit 35.4 % Mean Corpuscular Volume 84.4 FL Mean Corpuscular Hemoglobin 27.0 PG Mean Corpuscular Hemoglobin Concent 32.0 % Red Cell Distribution Width 14.6 % Platelet Count 273 TH/MM3 Mean Platelet Volume 8.4 FL Neutrophils (%) (Auto) 57.3 % Lymphocytes (%) (Auto) 33.7 % Monocytes (%) (Auto) 6.8 % Eosinophils (%) (Auto) 1.7 % Basophils (%) (Auto) 0.5 % Neutrophils # (Auto) 7.5 TH/MM3 Lymphocytes # (Auto) 4.4 TH/MM3 Monocytes # (Auto) 0.9 TH/MM3 Eosinophils # (Auto) 0.2 TH/MM3 Basophils # (Auto) 0.1 TH/MM3 CBC Comment DIFF FINAL Differential Comment Blood Urea Nitrogen 13 MG/DL Creatinine 0.68 MG/DL Random Glucose 96 MG/DL Total Protein 6.8 GM/DL Albumin 3.4 GM/DL Calcium Level 8.6 MG/DL Alkaline Phosphatase 61 U/L Aspartate Amino Transf (AST/SGOT) 15 U/L Alanine Aminotransferase (ALT/SGPT) 26 U/L Total Bilirubin 0.2 MG/DL Sodium Level 142 MEQ/L Potassium Level 3.4 MEQ/L Chloride Level 110 MEQ/L Carbon Dioxide Level 23.3 MEQ/L Anion Gap 9 MEQ/L Estimat Glomerular Filtration Rate 100 ML/MIN [facility] Medical Decision Making Medical Screen Exam Complete: Yes Emergency Medical Condition: Yes Medical Record Reviewed: Yes Differential Diagnosis Migraine, pseudotumor cerebri, tension headache, cluster headache, subarachnoid hemorrhage Narrative Course The patient will be placed on ECG monitor and pulse oximetry. Plan is for basic lab work, IV fluids. The patient has multiple allergies to various medications. She'll be given Reglan, Benadryl to treat her current symptoms. It has been suggested in previous notes that opiate dependence may be exacerbating her headaches, specifically this was mentioned and neurologist Dr. Wekes's notes during her recent hospitalization. Therefore opiates will be avoided at this time. 2300: At the end of my shift the patient was signed out to my attending. Vincenzo Yusuf Feb 01, 2017 22:06
[2017-02-01] MEDS ORDERED: diphenhydrAMINE HCL 50 MG/ML VIAL IVP ONE (22:15)
[2017-02-01] MEDS ORDERED: METOCLOPRAMIDE HCL 10 MG/2 ML VIAL IVP ONE (22:15)
[2017-02-01] MEDS ORDERED: SODIUM CHLORIDE 0.9% FLUSH 10 ML FLUSH IVF PRN (22:15)
[2017-02-01 23:00] LABS: AUTOMATED NEUTROPHIL # 7.5 TH/MM3 (1.8-7.7); BASOPHIL # 0.1 TH/MM3 (0-0.2); BASOPHIL % 0.5 % (0.0-2.0); EOSINOPHIL # 0.2 TH/MM3 (0-0.4); EOSINOPHIL % 1.7 % (0.0-4.0); HEMATOCRIT 35.4 % (35.0-46.0); HEMO FLAGS DIFF FINAL; LYMPH % 33.7 % (9.0-44.0); LYMPHOCYTE # 4.4 TH/MM3 (1.0-4.8); MEAN CELL VOLUME 84.4 FL (80.0-100.0); MONO % 6.8 % (0.0-8.0); NEUT % 57.3 % (16.0-70.0); PLATELET COUNT 273 TH/MM3 (150-450); RED BLOOD COUNT 4.19 MIL/MM3 (4.00-5.30); RED CELL DISTRIBUTION WIDTH 14.6 % (11.6-17.2)
[2017-02-01] MEDS ORDERED: ONDANSETRON HCL 4 MG/2 ML VIAL IV PUSH ONE (23:00)
[2017-02-01 23:05] LABS: ALKALINE PHOSPHATASE 61 U/L (45-117); TOTAL BILIRUBIN ADULT 0.2 MG/DL (0.2-1.0)
[2017-02-01 23:10] LABS: ALT (GPT) 26 U/L (10-53); ANION GAP 9 MEQ/L (5-15); AST (GOT) 15 U/L (15-37); BICARBONATE 23.3 MEQ/L (21.0-32.0); BLOOD UREA NITROGEN 13 MG/DL (7-18); CHLORIDE 110 MEQ/L (98-107); GLOMERULAR FILTRATION RATE 100 ML/MIN (>89); POTASSIUM 3.4 MEQ/L (3.5-5.1); SODIUM (NA) 142 MEQ/L (136-145)
[2017-02-01 23:16] VITALS: BP 128/60; PULSE 63; RESP 18; O2SAT 100
--- NOTE | 2017-02-02 00:14 | PD ---
Physical Exam Date Seen by Provider: Feb 01, 2017 Time Seen by Provider: 23:00 Narrative I, Dr. Lopez, have reviewed the advance practice practitioner's documentation and am in agreement, met with the patient face to face, made the diagnosis, and the medical decision making was done by me. *My assessment and Findings: Patient seen and evaluated with PA, please see PA note for further details. She has been here several times for headaches and pseudotumor cerebral history, has required IR lumbar puncture for relief. She is here again stating similar complaints as previous. She was given IV Reglan, Benadryl in the ER with barely symptom relief. She is having a 9 out of 10 headache still. At this point, I have discussed doing a lumbar puncture in the ER with her but she is declining, stating that she has severe scar tissue and LPs done in the ER have always been problematic and they never able to get up On her. She has required interventional radiology drainage several times in the past. She apparently follows up with her neurosurgeon in [place] who is currently trying to get her scheduled for a shunt. She states that she follows with Dr. Haddad otherwise. Considering symptoms, at this point, my plan would be to admit the patient for further treatment. Case was discussed with [facility] resident service for admission. I have also talked to radiology who confirmed that interventional is on tomorrow. Data Data Last Documented VS Vital Signs Date Time Temp Pulse Resp B/P (MAP) Pulse Ox O2 Delivery O2 Flow Rate FiO2 02/01/17 23:16 63 18 128/60 (82) 100 Room Air 02/01/17 20:54 98.4 Orders Orders Complete Blood Count With Diff (02/01/17 22:03) Comprehensive Metabolic Panel (02/01/17 22:03) Ecg Monitoring (02/01/17 22:03) Iv Access Insert/Monitor (02/01/17 22:03) Oximetry (02/01/17 22:03) Sodium Chloride 0.9% Flush (Ns Flush) (02/01/17 22:15) Diphenhydramine Inj (Benadryl Inj) (02/01/17 22:15) Metoclopramide Inj (Reglan Inj) (02/01/17 22:15) Sodium Chlor 0.9% 1000 Ml Inj (Ns 1000 M (02/01/17 22:03) Ed Urine Pregnancytest Poc (02/01/17 22:03) Ondansetron Inj (Zofran Inj) (02/01/17 23:00) Admit Order (Ed Use Only) (02/02/17 00:10) Labs Laboratory Tests Test 02/01/17 22:05 White Blood Count 13.0 TH/MM3 Red Blood Count 4.19 MIL/MM3 Hemoglobin 11.3 GM/DL Hematocrit 35.4 % Mean Corpuscular Volume 84.4 FL Mean Corpuscular Hemoglobin 27.0 PG Mean Corpuscular Hemoglobin Concent 32.0 % Red Cell Distribution Width 14.6 % Platelet Count 273 TH/MM3 Mean Platelet Volume 8.4 FL Neutrophils (%) (Auto) 57.3 % Lymphocytes (%) (Auto) 33.7 % Monocytes (%) (Auto) 6.8 % Eosinophils (%) (Auto) 1.7 % Basophils (%) (Auto) 0.5 % Neutrophils # (Auto) 7.5 TH/MM3 Lymphocytes # (Auto) 4.4 TH/MM3 Monocytes # (Auto) 0.9 TH/MM3 Eosinophils # (Auto) 0.2 TH/MM3 Basophils # (Auto) 0.1 TH/MM3 CBC Comment DIFF FINAL Differential Comment Blood Urea Nitrogen 13 MG/DL Creatinine 0.68 MG/DL Random Glucose 96 MG/DL Total Protein 6.8 GM/DL Albumin 3.4 GM/DL Calcium Level 8.6 MG/DL Alkaline Phosphatase 61 U/L Aspartate Amino Transf (AST/SGOT) 15 U/L Alanine Aminotransferase (ALT/SGPT) 26 U/L Total Bilirubin 0.2 MG/DL Sodium Level 142 MEQ/L Potassium Level 3.4 MEQ/L Chloride Level 110 MEQ/L Carbon Dioxide Level 23.3 MEQ/L Anion Gap 9 MEQ/L Estimat Glomerular Filtration Rate 100 ML/MIN [facility] Medical Record Reviewed: Yes Supervised Visit with SEB: Yes Diagnosis Primary Impression: Headache Additional Impression: Pseudotumor cerebri Admitting Information Admitting Physician Requests: it Luigi Lopez MD Feb 02, 2017 00:14
[2017-02-02] MEDS ORDERED: SODIUM CHLORIDE 0.9% FLUSH 10 ML FLUSH IV FLUSH PRN (00:15)
[2017-02-02] MEDS ORDERED: MORPHINE SULFATE 4 MG/ML INJ ONE (02:46)
[2017-02-02 03:41] VITALS: BP 117/69; PULSE 57; RESP 16; TEMP 97.6; O2SAT 99
[2017-02-02] MEDS ORDERED: KETOROLAC TROMETHAMINE 30 MG/ML (IVP) VIAL IV PUSH PRN (04:45)
[2017-02-02] MEDS ORDERED: acetaZOLAMIDE SEQUELS 500 MG SUSTAINED RELEASE CAP PO SCH ×2 (06:00→08:00)
[2017-02-02] MEDS: ACETAMINOPHEN/HYDROcodone 325 MG/10 MG TAB PO PRN ×3 (06:02→19:38)
--- NOTE | 2017-02-02 07:13 | HHI.HP ---
[facility] Service Family Medicine Primary Care Physician Unknown Admission Diagnosis Headaches/idiopathic intracranial hypertension Diagnoses: International Travel<30 Days: No Contact w/Intl Traveler<30days: No Known Affected Area: No History of Present Illness Patient is a 32-year-old female with history of IIH/pseudotumor cerebri who presents to [facility] complaining of severe head pain. While patient always experiences some pain, pain started worsening this afternoon. Patient describes the pain to be a severe pressure going through her head, radiating to her neck. Pain is worsened with cough, bearing down for bowel movement. Patient also reports sensitivity to light and sound. Patient reports heaviness of the head; she says that when she bends over she feels as if she is going to somersault due to heaviness of head. Patient describes pressure on eyes, affecting her vision. She states that her vision is blurry with floaters. She describes her vision as kaleidoscope vision ; she reports feeling as if she is looking through a straw. Patient also complains of sinus pressure, which she has not experienced with past episodes of severe headaches. Patient reports nausea and vomiting x2 this evening. Patient denies abdominal pain. Patient reports vertigo. Patient denies peripheral weakness/numbness. Patient reports anxiety but denies confusion. At baseline, patient has a constant, dull, 2/10 pain. Patient experiences some relief with prescribed medications and moderate caffeine intake. As per tallier, patient has some loss of peripheral vision. To alleviate pain in acute episodes, LPs have provided most relief. Morphine provides some relief. Physicians involved in patient's care: Neurology - Dr. Haddad ([facility]) and Dr. Lemos ([place]) Ophthalmology - Dr. Arndt Of note, shunt and optic nerve sheath fenestration have been discussed by outpatient neurologists. (Evelin Sigala MD R1) Review of Systems Constitutional: COMPLAINS OF: Fatigue, Dizziness, Change in appetite (Limited appetite which she associates with medication), DENIES: Diaphoretic episodes, Fever, Chills Endocrine: DENIES: Abnorml menstrual pattern Eyes: COMPLAINS OF: Blurred vision, Eye pain, Vision loss, Photosensitivity Ears, nose, mouth, throat: COMPLAINS OF: Tinnitus, Vertigo, Hoarseness, Sinus Pain, DENIES: Hearing loss, Nasal discharge, Throat pain, Ear Pain, Running Nose Respiratory: COMPLAINS OF: Wheezing (Asthma), DENIES: Cough, Sputum production , Shortness of breath Cardiovascular: DENIES: Chest pain, Palpitations Gastrointestinal: COMPLAINS OF: Nausea, Vomiting (x2 this evening ), DENIES: Abdominal pain, Black stools, Bloody stools, Constipation, Diarrhea Genitourinary: DENIES: Abnormal vaginal bleeding Musculoskeletal: COMPLAINS OF: Neck pain, DENIES: Joint pain, Muscle aches, Stiffness, Joint Swelling Integumentary: DENIES: Abnormal pigmentation, Rash Hematologic/lymphatic: DENIES: Bruising Immunologic/allergic: DENIES: Eczema Neurologic: COMPLAINS OF: Headache, DENIES: Localized weakness, Paresthesias, Seizures, Tremor Psychiatric: COMPLAINS OF: Anxiety, DENIES: Confusion, Depression (Evelin Sigala MD R1) Past Family Social History Past Medical History IIH/pseudotumor cerebri Past Surgical History Gallbladder - 19 years old 1 2011 Reported Medications Reported Meds & Active Scripts Active Potassium Chloride ER (Potassium Chloride) 20 Meq Tab 20 Meq PO DAILY Diamox Sequels ER 12 HR (Acetazolamide) 500 Mg Cap 500 Mg PO Q8HR 30 Days Reported [place] (Hydrocodone-Acetaminophen) 10-325 Mg Tab 1 Tab PO Q6H PRN Zofran (Ondansetron HCl) 4 Mg Tab 4 Mg PO Q12HR PRN Lasix (Furosemide) 40 Mg Tab 40 Mg PO BID Topamax (Topiramate) 50 Mg Tab 50 Mg PO BID Meclizine (Meclizine HCl) 25 Mg Tab 25 Mg PO DIRECTED PRN (Evelin Sigala MD R1) Allergies: Coded Allergies: Sulfa (Sulfonamide Antibiotics) (Unverified Allergy, Severe, RASH, 02/01/17 ) amoxicillin (Unverified Allergy, Severe, Anaphylaxis, 02/01/17) ketorolac (Verified Allergy, Severe, Anaphylaxis, 02/02/17) anaphylaxis per patient ibuprofen (Unverified Allergy, Intermediate, HIVES, FACIAL SWELLING., 02/01) tramadol (Unverified Allergy, Intermediate, HIVES, 02/01/17) hives, sewll up latex (Unverified Allergy, Unknown, 02/01/17) penicillin G (Unverified Allergy, Unknown, HIVES, 02/01/17) prochlorperazine (Unverified Allergy, Unknown, HIVES, 02/01/17) sumatriptan (Unverified Adverse Reaction, Severe, VOMITING PASSED OUT, 02/01/17) Active Ordered Medications Current Medications Medications (Trade) Dose Ordered Sig/Jd Route Start Time Stop Time Status Last Admin (NS Flush) 2 ml UNSCH PRN IVF 02/01/17 22:15 (NS Flush) 2 ml UNSCH PRN IV FLUSH 02/02/17 00:15 (NS Flush) 2 ml BID IV FLUSH 02/02/17 09:00 (Morphine Inj) 4 mg Q3H PRN IV 02/02/17 04:45 (Toradol Inj) 40 mg Q6H PRN IV PUSH 02/02/17 04:45 02/07/17 04:44 (Ativan) 0.5 mg Q4H PRN PO 02/02/17 04:45 (Zofran Inj) 4 mg Q6H PRN IV PUSH 02/02/17 04:45 (Diamox Sequels) 500 mg Q8H PO 02/02/17 06:00 02/02/17 06:00 (Lasix) 40 mg BID PO 02/02/17 09:00 ([place] 10-325 Mg) 1 tab Q6H PRN PO 02/02/17 05:30 02/02/17 06:02 (KCl) 20 meq DAILY PO 02/02/17 09:00 (Topamax) 50 mg BID PO 02/02/17 09:00 Family History Family - healthy. Social History Lives with son and father of son. Son is 5 years old. 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 (Evelin Sigala MD R1) Physical Exam Vital Signs Vital Signs Date Time Temp Pulse Resp B/P (MAP) Pulse Ox O2 Delivery O2 Flow Rate FiO2 02/02/17 03:41 97.6 57 16 117/69 (85) 99 02/01/17 23:16 63 18 128/60 (82) 100 Room Air 02/01/17 21:46 90 18 151/87 (108) 98 02/01/17 20:54 98.4 97 16 142/78 (99) 97 Room Air Physical Exam GENERAL: This is a well-nourished, well-developed, obese patient, in obvious distress. SKIN: No rashes, ecchymoses or lesions. Cool and dry. HEAD: Atraumatic. Normocephalic. Diffuse temporal and scalp tenderness. FACE: Face appears puffy as compared to picture shown by patient. Tenderness upon palpation over sinuses. EYES: Very sensitive to light. Pupils equal round and reactive. Extraocular motions intact but painful. No scleral icterus. No injection or drainage. ENT: Nose without bleeding, purulent drainage or septal hematoma. Throat without erythema, tonsillar hypertrophy or exudate. Uvula midline. Airway patent. NECK: Trachea midline. No JVD or lymphadenopathy. Supple, nontender, no meningeal signs. CARDIOVASCULAR: Regular rate and rhythm without murmurs, gallops, or rubs. RESPIRATORY: Clear to auscultation. Breath sounds equal bilaterally. No wheezes , rales, or rhonchi. GASTROINTESTINAL: Abdomen soft, non-tender, nondistended. No hepato-splenomegaly , or palpable masses. No guarding. MUSCULOSKELETAL: Extremities without clubbing, cyanosis, or edema. No joint tenderness, effusion, or edema noted. No calf tenderness. NEUROLOGICAL: Awake and alert. Cranial nerves II through XII intact. Motor grossly within normal limits. Five out of 5 muscle strength in all muscle groups. Normal speech. Laboratory Laboratory Tests Test 02/01/17 22:05 White Blood Count 13.0 Red Blood Count 4.19 Hemoglobin 11.3 Hematocrit 35.4 Mean Corpuscular Volume 84.4 Mean Corpuscular Hemoglobin 27.0 Mean Corpuscular Hemoglobin Concent 32.0 Red Cell Distribution Width 14.6 Platelet Count 273 Mean Platelet Volume 8.4 Neutrophils (%) (Auto) 57.3 Lymphocytes (%) (Auto) 33.7 Monocytes (%) (Auto) 6.8 Eosinophils (%) (Auto) 1.7 Basophils (%) (Auto) 0.5 Neutrophils # (Auto) 7.5 Lymphocytes # (Auto) 4.4 Monocytes # (Auto) 0.9 Eosinophils # (Auto) 0.2 Basophils # (Auto) 0.1 CBC Comment DIFF FINAL Differential Comment Blood Urea Nitrogen 13 Creatinine 0.68 Random Glucose 96 Total Protein 6.8 Albumin 3.4 Calcium Level 8.6 Alkaline Phosphatase 61 Aspartate Amino Transf (AST/SGOT) 15 Alanine Aminotransferase (ALT/SGPT) 26 Total Bilirubin 0.2 Sodium Level 142 Potassium Level 3.4 Chloride Level 110 Carbon Dioxide Level 23.3 Anion Gap 9 Estimat Glomerular Filtration Rate 100 (Evelin Sigala MD R1) Result Diagram: 02/01/17220402/01/172204 Septic Shock Reassessment Heart: Regular rate and rhythm Lungs: Clear (Evelin Sigala MD R1) Caprini VTE Risk Assessment Caprini VTE Risk Assessment: No/Low Risk (score <= 1) Caprini Risk Assessment Model Point Value = 1 Point Value = 2 Point Value = 3 Point Value = 5 Age 41-60 Minor surgery BMI > 25 kg/m2 Swollen legs Varicose veins or History of unexplained or recurrent spontaneous Oral contraceptives or hormone replacement Sepsis (< 1 month) Serious lung disease, including pneumonia (< 1 month) Abnormal pulmonary function Acute myocardial infarction Congestive heart failure (< 1 month) History of inflammatory bowel disease Medical patient at bed rest Age 61-74 Arthroscopic surgery Major open surgery (> 45 min) Laparoscopic surgery (> 45 min) Malignancy Confined to bed (> 72 hours) Immobilizing plaster cast Central venous access Age >= 75 History of VTE Family history of VTE Factor V Leiden Prothrombin [id number] Lupus anticoagulant Anticardiolipin antibodies Elevated serum homocysteine Heparin-induced thrombocytopenia Other congenital or acquired thrombophilia Stroke (< 1 month) Elective arthroplasty Hip, pelvis, or leg fracture Acute spinal cord injury (< 1 month) Prophylaxis Regimen Total Risk Factor Score Risk Level Prophylaxis Regimen 0-1 Low Early ambulation 2 Moderate Order ONE of the following: *Sequential Compression Device (SCD) *Heparin 5000 units SQ BID 3-4 Higher Order ONE of the following medications: *Heparin 5000 units SQ TID *Enoxaparin/Lovenox 40 mg SQ daily (WT < 150 kg, CrCl > 30 mL/min) *Enoxaparin/Lovenox 30 mg SQ daily (WT < 150 kg, CrCl > 10-29 mL/min) *Enoxaparin/Lovenox 30 mg SQ BID (WT < 150 kg, CrCl > 30 mL/min) AND/OR *Sequential Compression Device (SCD) 5 or more Highest Order ONE of the following medications: *Heparin 5000 units SQ TID (Preferred with Epidurals) *Enoxaparin/Lovenox 40 mg SQ daily (WT < 150 kg, CrCl > 30 mL/min) *Enoxaparin/Lovenox 30 mg SQ daily (WT < 150 kg, CrCl > 10-29 mL/min) *Enoxaparin/Lovenox 30 mg SQ BID (WT < 150 kg, CrCl > 30 mL/min) AND *Sequential Compression Device (SCD) (Evelin Sigala MD R1) Assessment and Plan Assessment and Plan Patient is a 32-year-old female with history of IIH/pseudotumor cerebri who presents to [facility] complaining of severe head pain. Patient declined LP in the ED; requests interventional radiologist for LP procedure. Admit to observation with LP in the morning. Code Status Full Code. Discussed Condition With Dr. Etienne (Evelin Sigala MD R1) Attending Attestation THIS CASE WAS DISCUSSED WITH THE RESIDENT PHYSICIAN. I HAVE REVIEWED THE RECORD AND AGREE WITH THE ABOVE NOTE AND PLAN OF CARE WAS DISCUSSED. I HAVE AUTHORIZED THE ORDER FOR PLACEMENT IN OUT-PATIENT OBSERVATION STATUS. (Enrique Hernandes MD) Problem List: (1) Pseudotumor cerebri ICD Codes: G93.2 - Benign intracranial hypertension Status: Chronic Plan: History of IIH with multiple prior hospital visits. Under care of outpatient neurologists. Plan: * Labs: coagulation studies. * LP by IR in a.m. * Continue home medications: Topamax, Diamox, Lasix. * Pain control: Toradol 40 mg IV Push q6hr PRN Pain 1-10. Morphine 4 g IV Push q3hr PRN Breakthrough Pain. (2) Nausea & vomiting ICD Codes: R11.2 - Nausea with vomiting, unspecified Status: Acute Plan: Secondary to headache. Plans: * Encourage PO hydration. * Zofran 4 mg IV Push q6hr PRN Nausea and Vomiting. (3) Anxiety about health ICD Codes: F41.8 - Other specified anxiety disorders Plan: Patient anxious about head pain. Plan: * Ativan 0.5 mg PO q4hr PRN Anxiety. (4) Tobacco abuse ICD Codes: Z72.0 - Tobacco use Status: Acute Plan: Hx of tobacco use x20 years. Plan: * Nicotine 7 mg Patch. * Provided education on smoking cessation. (5) Fluid, Electrolyte, Nutrition, and Prophylaxis Status: Acute Plan: Fluid: * Tolerates PO intake. * Adequate PO intake at this time. Electrolytes: * Monitor and replete as necessary. Nutrition: * Regular diet. Prophylaxis: * SCDs ordered. * Hold chemical DVT prophylaxis for LP. (Evelin Sigala MD R1) Evelin Sigala MD R1 Feb 02, 2017 07:13 Enrique Hernandes MD Feb 02, 2017 12:26
[2017-02-02 08:11] VITALS: BP 111/69; PULSE 66; RESP 20; TEMP 98; O2SAT 99
[2017-02-02] MEDS: TOPIRAMATE 25 MG TAB PO SCH ×2 (08:36→19:39)
[2017-02-02] MEDS: POTASSIUM CHLORIDE 20 MEQ CONTROLLED RELEASE TAB PO SCH (08:36)
[2017-02-02] MEDS: FUROSEMIDE 40 MG TAB PO SCH ×2 (08:36→19:38)
[2017-02-02] MEDS: ONDANSETRON HCL 4 MG/2 ML VIAL IV PUSH PRN ×2 (08:37→17:41)
[2017-02-02] MEDS: MORPHINE SULFATE 4 MG/ML INJ IV PRN ×4 (08:37→20:26)
[2017-02-02] MEDS: NICOTINE 7 MG/24 HR PATCH T-DERMAL SCH (08:38)
[2017-02-02] MEDS: SODIUM CHLORIDE 0.9% FLUSH 10 ML FLUSH IV FLUSH SCH ×2 (08:38→19:41)
[2017-02-02] MEDS ORDERED: FUROSEMIDE 40 MG TAB PO SCH (09:00)
[2017-02-02] MEDS ORDERED: TOPIRAMATE 25 MG TAB PO SCH (09:00)
[2017-02-02 10:03] LABS: APTT (PATIENT) 25.9 SEC (24.3-30.1); INTERNATIONAL NORMALIZED RATIO 0.9 RATIO; PROTHROMBIN TIME - PATIENT 9.9 SEC (9.8-11.6)
[2017-02-02 11:45] VITALS: BP 119/58; PULSE 66; RESP 20; TEMP 98.3; O2SAT 99
[2017-02-02] MEDS: acetaZOLAMIDE SEQUELS 500 MG SUSTAINED RELEASE CAP PO SCH ×2 (12:14→19:39)
[2017-02-02] MEDS: MECLIZINE HCL 25 MG TAB PO PRN ×2 (12:16→19:39)
--- NOTE | 2017-02-02 12:26 | HHI.HP ---
[facility] Service Family Medicine Primary Care Physician Unknown Admission Diagnosis Headaches/idiopathic intracranial hypertension Diagnoses: (1) Pseudotumor cerebri (2) Nausea & vomiting (3) Anxiety about health (4) Tobacco abuse (5) Fluid, Electrolyte, Nutrition, and Prophylaxis International Travel<30 Days: No Contact w/Intl Traveler<30days: No Known Affected Area: No History of Present Illness Patient states that she continues to have significant pressure in her head with a 10/10 in intensity headache and pressure behind her right eye. She feels that this is not significantly improved since admission to the emergency department. She states this is similar to her previous hospitalization but increased in intensity as far as the pressure in her head and the pressure behind her right eye. She endorses some continued nausea with one episode of emesis this morning, however this was unwitnessed. She denies any vision changes or vision loss, she denies any chest pain or palpitations, denies any shortness of breath, she denies any fevers or chills. In summary this is a 32-year-old female with a history of IIH/pseudotumor cerebri who presents to emergency department with worsening head pain/pressure and right eye pressure. This started on the day of presentation and she describes it as severe pressure going through her head and radiating into her neck that is worse with Valsalva type movements. She also endorses sensitivity to light and sound and a "heaviness" in the head. Patient describes pressure on eyes, affecting her vision. She states that her vision is blurry with floaters. She describes her vision as kaleidoscope vision; she reports feeling as if she is looking through a straw. Patient also complains of sinus pressure , which she has not experienced with past episodes of severe headaches. Patient reports nausea and vomiting x2 this evening. Patient denies abdominal pain. Patient reports vertigo. Physicians involved in patient's care: Neurology - Dr. Haddad ([facility]) and Dr. Lemos ([facility]) Ophthalmology - Dr. Arndt Past Family Social History Past Medical History IIH/pseudotumor cerebri Past Surgical History Gallbladder - 19 years old 1 2011 Allergies: Coded Allergies: Sulfa (Sulfonamide Antibiotics) (Unverified Allergy, Severe, RASH, 02/01/17 ) amoxicillin (Unverified Allergy, Severe, Anaphylaxis, 02/01/17) ketorolac (Verified Allergy, Severe, Anaphylaxis, 02/02/17) anaphylaxis per patient ibuprofen (Unverified Allergy, Intermediate, HIVES, FACIAL SWELLING., 02/01) tramadol (Unverified Allergy, Intermediate, HIVES, 02/01/17) hives, sewll up latex (Unverified Allergy, Unknown, 02/01/17) penicillin G (Unverified Allergy, Unknown, HIVES, 02/01/17) prochlorperazine (Unverified Allergy, Unknown, HIVES, 02/01/17) sumatriptan (Unverified Adverse Reaction, Severe, VOMITING PASSED OUT, 02/01/17) Family History Family - healthy. Social History Lives with son and father of son. Son is 5 years old. 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 Physical Exam Vital Signs Vital Signs Date Time Temp Pulse Resp B/P (MAP) Pulse Ox O2 Delivery O2 Flow Rate FiO2 02/02/17 08:11 98.0 66 20 111/69 (83) 99 02/02/17 03:41 97.6 57 16 117/69 (85) 99 02/01/17 23:16 63 18 128/60 (82) 100 Room Air 02/01/17 21:46 90 18 151/87 (108) 98 02/01/17 20:54 98.4 97 16 142/78 (99) 97 Room Air Physical Exam GENERAL: Obese female lying in bed, appears mildly uncomfortable SKIN: No rashes, ecchymoses or lesions. Cool and dry. HEAD: Atraumatic. Normocephalic. Diffuse temporal and scalp tenderness. FACE: Face appears puffy as compared to picture shown by patient. EYES: Very sensitive to light. Pupils equal round and reactive. Extraocular motions intact without pain. No scleral icterus. No injection or drainage. CARDIOVASCULAR: Regular rate and rhythm without murmurs, gallops, or rubs. RESPIRATORY: Clear to auscultation. Breath sounds equal bilaterally. No wheezes , rales, or rhonchi. GASTROINTESTINAL: Abdomen soft, non-tender, nondistended. MUSCULOSKELETAL: Extremities without clubbing, cyanosis, or edema. NEUROLOGICAL: Awake and alert. Cranial nerves II through XII intact. Motor grossly within normal limits. Normal speech. Laboratory Laboratory Tests Test 02/01/17 22:05 02/02/17 09:35 White Blood Count 13.0 Red Blood Count 4.19 Hemoglobin 11.3 Hematocrit 35.4 Mean Corpuscular Volume 84.4 Mean Corpuscular Hemoglobin 27.0 Mean Corpuscular Hemoglobin Concent 32.0 Red Cell Distribution Width 14.6 Platelet Count 273 Mean Platelet Volume 8.4 Neutrophils (%) (Auto) 57.3 Lymphocytes (%) (Auto) 33.7 Monocytes (%) (Auto) 6.8 Eosinophils (%) (Auto) 1.7 Basophils (%) (Auto) 0.5 Neutrophils # (Auto) 7.5 Lymphocytes # (Auto) 4.4 Monocytes # (Auto) 0.9 Eosinophils # (Auto) 0.2 Basophils # (Auto) 0.1 CBC Comment DIFF FINAL Differential Comment Blood Urea Nitrogen 13 Creatinine 0.68 Random Glucose 96 Total Protein 6.8 Albumin 3.4 Calcium Level 8.6 Alkaline Phosphatase 61 Aspartate Amino Transf (AST/SGOT) 15 Alanine Aminotransferase (ALT/SGPT) 26 Total Bilirubin 0.2 Sodium Level 142 Potassium Level 3.4 Chloride Level 110 Carbon Dioxide Level 23.3 Anion Gap 9 Estimat Glomerular Filtration Rate 100 Prothrombin Time 9.9 Prothromb Time International Ratio 0.9 Activated Partial Thromboplast Time 25.9 Result Diagram: 02/01/17220402/01/172204 Caprini VTE Risk Assessment Caprini VTE Risk Assessment: No/Low Risk (score <= 1) Caprini Risk Assessment Model Point Value = 1 Point Value = 2 Point Value = 3 Point Value = 5 Age 41-60 Minor surgery BMI > 25 kg/m2 Swollen legs Varicose veins or History of unexplained or recurrent spontaneous Oral contraceptives or hormone replacement Sepsis (< 1 month) Serious lung disease, including pneumonia (< 1 month) Abnormal pulmonary function Acute myocardial infarction Congestive heart failure (< 1 month) History of inflammatory bowel disease Medical patient at bed rest Age 61-74 Arthroscopic surgery Major open surgery (> 45 min) Laparoscopic surgery (> 45 min) Malignancy Confined to bed (> 72 hours) Immobilizing plaster cast Central venous access Age >= 75 History of VTE Family history of VTE Factor V Leiden Prothrombin [id number] Lupus anticoagulant Anticardiolipin antibodies Elevated serum homocysteine Heparin-induced thrombocytopenia Other congenital or acquired thrombophilia Stroke (< 1 month) Elective arthroplasty Hip, pelvis, or leg fracture Acute spinal cord injury (< 1 month) Prophylaxis Regimen Total Risk Factor Score Risk Level Prophylaxis Regimen 0-1 Low Early ambulation 2 Moderate Order ONE of the following: *Sequential Compression Device (SCD) *Heparin 5000 units SQ BID 3-4 Higher Order ONE of the following medications: *Heparin 5000 units SQ TID *Enoxaparin/Lovenox 40 mg SQ daily (WT < 150 kg, CrCl > 30 mL/min) *Enoxaparin/Lovenox 30 mg SQ daily (WT < 150 kg, CrCl > 10-29 mL/min) *Enoxaparin/Lovenox 30 mg SQ BID (WT < 150 kg, CrCl > 30 mL/min) AND/OR *Sequential Compression Device (SCD) 5 or more Highest Order ONE of the following medications: *Heparin 5000 units SQ TID (Preferred with Epidurals) *Enoxaparin/Lovenox 40 mg SQ daily (WT < 150 kg, CrCl > 30 mL/min) *Enoxaparin/Lovenox 30 mg SQ daily (WT < 150 kg, CrCl > 10-29 mL/min) *Enoxaparin/Lovenox 30 mg SQ BID (WT < 150 kg, CrCl > 30 mL/min) AND *Sequential Compression Device (SCD) Assessment and Plan Assessment and Plan Patient is a 32-year-old female with history of IIH/pseudotumor cerebri who presents to [facility] ED complaining of severe head pain. Patient declined LP in the ED; requests interventional radiologist for LP procedure. Admit to observation with LP in the morning. Problem List: (1) Pseudotumor cerebri ICD Codes: G93.2 - Benign intracranial hypertension Status: Chronic Plan: History of IIH with multiple prior hospital visits. Under care of outpatient neurologists. Plan for interventional radiology to perform lumbar puncture today with opening pressures - Continue home medications of Topamax, Diamox, Lasix Pain control as below: - Toradol 40 mg IV Push q6hr PRN Pain 1-10. - Morphine 4 g IV Push q3hr PRN Breakthrough Pain. Consider neurology consult if vision changes or if headache does not improve after lumbar (2) Nausea & vomiting ICD Codes: R11.2 - Nausea with vomiting, unspecified Status: Acute Plan: Secondary to headache. Plans: * Encourage PO hydration. * Zofran 4 mg IV Push q6hr PRN Nausea and Vomiting. (3) Anxiety about health ICD Codes: F41.8 - Other specified anxiety disorders Plan: Patient anxious about head pain. Plan: * Ativan 0.5 mg PO q4hr PRN Anxiety. (4) Tobacco abuse ICD Codes: Z72.0 - Tobacco use Status: Acute Plan: Hx of tobacco use x20 years. Plan: * Nicotine 7 mg Patch. * Provided education on smoking cessation. (5) Fluid, Electrolyte, Nutrition, and Prophylaxis Status: Acute Plan: Fluid: * Tolerates PO intake. * Adequate PO intake at this time. Electrolytes: * Monitor and replete as necessary. Nutrition: * Regular diet. Prophylaxis: * SCDs ordered. * Hold chemical DVT prophylaxis for LP. Enrique Hernandes MD Feb 02, 2017 12:26
[2017-02-02 16:00] VITALS: BP 102/61; PULSE 53; RESP 18; TEMP 98.1; O2SAT 99
[2017-02-02] MEDS: LORazepam 0.5 MG TAB PO PRN (17:42)
[2017-02-02 20:08] VITALS: BP 120/56; PULSE 60; RESP 18; TEMP 98.1; O2SAT 95
[2017-02-02 23:41] VITALS: BP 125/60; PULSE 62; RESP 18; TEMP 98.1; O2SAT 96
[2017-02-03] MEDS: LORazepam 0.5 MG TAB PO PRN ×2 (00:55→08:45)
[2017-02-03] MEDS: MORPHINE SULFATE 4 MG/ML INJ IV PRN ×4 (00:55→16:33)
[2017-02-03 03:23] VITALS: BP 115/60; PULSE 56; RESP 18; TEMP 98.1; O2SAT 100
[2017-02-03] MEDS: MECLIZINE HCL 25 MG TAB PO PRN ×2 (03:36→10:57)
[2017-02-03] MEDS: acetaZOLAMIDE SEQUELS 500 MG SUSTAINED RELEASE CAP PO SCH ×2 (03:36→12:37)
[2017-02-03] MEDS: ONDANSETRON HCL 4 MG/2 ML VIAL IV PUSH PRN ×2 (03:36→10:59)
[2017-02-03] MEDS: SODIUM CHLORIDE 0.9% FLUSH 10 ML FLUSH IV FLUSH SCH (07:34)
[2017-02-03 08:00] VITALS: BP 120/76; PULSE 67; RESP 15; TEMP 97.4; O2SAT 97
[2017-02-03] MEDS: TOPIRAMATE 25 MG TAB PO SCH (08:41)
[2017-02-03] MEDS: FUROSEMIDE 40 MG TAB PO SCH (08:41)
[2017-02-03] MEDS: POTASSIUM CHLORIDE 20 MEQ CONTROLLED RELEASE TAB PO SCH (08:41)
[2017-02-03] MEDS: NICOTINE 7 MG/24 HR PATCH T-DERMAL SCH (09:00)
[2017-02-03] MEDS ORDERED: REMOVE OLD PATCH T-DERMAL SCH (09:00)
--- NOTE | 2017-02-03 09:42 | HHI.FPPN ---
Subjective Remarks No acute events overnight. Afebrile vital signs stable overnight. Patient reports that her headache, sinus pressure, visual changes or at baseline. She reports increased dizziness with walking. She also reports new symptoms of a scratchy throat and wheezing. Patient also complains of a cough that makes her headache much worse. She thinks she is coming down with a cold. She is looking forward to the LP that will hopefully be done today. Plan for discharge after LP. (Damien Etienne MD R2) Objective Vitals Vital Signs Date Time Temp Pulse Resp B/P (MAP) Pulse Ox O2 Delivery O2 Flow Rate FiO2 02/03/17 08:00 97.4 67 15 120/76 (91) 97 02/03/17 07:40 18 02/03/17 03:23 98.1 56 18 115/60 (78) 100 02/02/17 23:41 98.1 62 18 125/60 (81) 96 02/02/17 20:38 18 02/02/17 20:08 98.1 60 18 120/56 (77) 95 02/02/17 16:00 98.1 53 18 102/61 (75) 99 02/02/17 11:45 98.3 66 20 119/58 (78) 99 I/O 02/02/17 02/02/17 02/02/17 02/03/17 02/03/17 02/03/17 07:00 15:00 23:00 07:00 15:00 23:00 Intake Total 420 ml Output Total 1901 ml 900 ml Balance -1901 ml 420 ml -900 ml Intake Oral 420 ml Output Urine Total 1900 ml 900 ml Stool Total 1 ml # Voids 2 (Damien Etienne MD R2) Result Diagram: 02/01/17220402/01/172204 Objective Remarks GENERAL: Obese female lying in bed in no acute distress SKIN: No rashes, ecchymoses or lesions. Cool and dry. HEAD: Atraumatic. Normocephalic. EYES: Photophobic. Pupils equal round and reactive. Extraocular motions intact without pain. No scleral icterus. No injection or drainage. CARDIOVASCULAR: Regular rate and rhythm without murmurs, gallops, or rubs. RESPIRATORY: Clear to auscultation. Breath sounds equal bilaterally. No wheezes , rales, or rhonchi. GASTROINTESTINAL: Abdomen soft, non-tender, nondistended. MUSCULOSKELETAL: Extremities without clubbing, cyanosis, or edema. NEUROLOGICAL: Awake and alert. Cranial nerves II through XII grossly intact. Motor grossly within normal limits. Normal speech. (Damien Etienne MD R2) A/P Assessment and Plan Patient is a 32-year-old female with history of IIH/pseudotumor cerebri who presents to [facility] ED complaining of severe head pain. Patient declined LP in the ED; requests interventional radiologist for LP procedure. In observation with LP planned for today. Discharge Planning Planning for discharge after LP today. (Damien Etienne MD R2) Attending Attestation Pt. examined and case discussed with resident physicians. I have read the above note and agree with the assessment and plan as discussed with me. I was involved in all medical decision making for this patient. Enrique Hernandes MD (Enrique Hernandes MD) Problem List: (1) Pseudotumor cerebri ICD Codes: G93.2 - Benign intracranial hypertension Status: Chronic Plan: History of IIH with multiple prior hospital visits. Under care of outpatient neurologists. Plan for interventional radiology to perform lumbar puncture today with opening pressures - Continue home medications of Topamax, Diamox, Lasix Pain control as below: - [place] q6hr PRN Pain 1-10. - Morphine 4 g IV Push q3hr PRN Breakthrough Pain. Consider neurology consult if vision changes or if headache does not improve after lumbar puncture. (2) URI (upper respiratory infection) ICD Codes: J06.9 - Acute upper respiratory infection, unspecified Plan: -Cetirizine -Chloraseptic [place] -Flonase -Guaifenesin-dextromethorphan (3) Dizziness ICD Codes: R42 - Dizziness and giddiness Plan: -Orthostatic vital signs -Consider IV fluids (4) Anxiety about health ICD Codes: F41.8 - Other specified anxiety disorders Plan: Patient anxious about head pain. Plan: * Ativan 0.5 mg PO q4hr PRN Anxiety. (5) Nausea & vomiting ICD Codes: R11.2 - Nausea with vomiting, unspecified Status: Acute Plan: Secondary to headache. Plans: * Encourage PO hydration. * Zofran 4 mg IV Push q6hr PRN Nausea and Vomiting. (6) Tobacco abuse ICD Codes: Z72.0 - Tobacco use Status: Acute Plan: Hx of tobacco use x20 years. Plan: * Nicotine 7 mg Patch. * Provided education on smoking cessation. (7) Fluid, Electrolyte, Nutrition, and Prophylaxis Status: Acute Plan: Fluid: * Tolerates PO intake. * Adequate PO intake at this time. Electrolytes: * Monitor and replete as necessary. Nutrition: * Regular diet. Prophylaxis: * SCDs ordered. * Hold chemical DVT prophylaxis for LP. (Damien Etienne MD R2) Damien Etienne MD R2 Feb 03, 2017 09:42 Enrique Hernandes MD Feb 03, 2017 18:15
[2017-02-03] MEDS ORDERED: PHENOL 1.4% SOLN 180 ML BTL OROPHARYNG PRN (11:00)
[2017-02-03] MEDS ORDERED: guaiFENesin/DEXTROMETHORPHAN 200 MG/20 MG/10 ML CUP PO PRN (11:00)
[2017-02-03] MEDS ORDERED: CETIRIZINE HCL 10 MG TAB PO SCH (11:30)
--- NOTE | 2017-02-03 11:55 | PD.RAD ---
Post Procedure Progress Note Pre Procedure Diagnosis: (1) Pseudotumor cerebri Post Procedure Diagnosis: (1) Pseudotumor cerebri Procedure Date: Feb 03, 2017 Supervising Radiologist: Arpan Torres Estimated blood loss: None Anesthesia: Local Plan of Activity Patient to Unit: Nursing Unit Patient Condition: Good Additional Comments: LP completed without difficulty. Opening pressure 23cm/H2O 22cc of clear CSF removed. Closing pressure 6cm/H2O. Full dictated report to follow See PACS Report for procedural detail/treatment Arpan Torres MD Feb 03, 2017 11:55
[2017-02-03] MEDS ORDERED: FLUTICASONE PROPIONATE 50 MCG/ACT 16 GM NASAL SPRAY EACH NARE SCH (12:00)
[2017-02-03 12:34] VITALS: BP 115/64; PULSE 69; RESP 18; TEMP 98.2; O2SAT 97
[2017-02-03 13:06] LABS: SUPERNATE COLOR TUBE #1 CLEAR (CLEAR); VOLUME TUBE # 1 4.5 ML
[2017-02-03 13:07] LABS: GROSS BLOOD TUBE #1 0 (0); GROSS BLOOD TUBE #2 0 (0); GROSS BLOOD TUBE #3 0 (0); GROSS BLOOD TUBE #4 0 (0); SUPERNATE COLOR TUBE #2 CLEAR (CLEAR); SUPERNATE COLOR TUBE #3 CLEAR (CLEAR); SUPERNATE COLOR TUBE #4 CLEAR (CLEAR); WBC TUBE #1 0 /MM3 (0-10)
--- NOTE | 2017-02-03 13:32 | RADRPT ---
EXAM DATE/TIME: 02/03/2017 10:43 [facility] COMPARISON: LUMBAR PUNCTURE W/OPENING PRESSURES, December 14, 2016, 14:31. INDICATIONS : Patient presents with Pseudotumor cerebri in need of of lumbar puncture with opening pressures. MEDICAL HISTORY : IIH Pseudotumor cerebri SURGICAL HISTORY : Gallbladder surgery ENCOUNTER: Subsequent ACUITY: >1 year PAIN SCORE: 5/10 LOCATION: cranial LUMBAR PUNCTURE TIME: 1138 hours FLUORO TIME: 0.6 minutes ACCESS LEVEL: L3-4 OPENING PRESSURE: 21 cm of water CLOSING PRESSURE: 6 cm of water FLUID: 21 cc of clear CSF was collected and sent to the laboratory for analysis. PROCEDURE : 1. Fluoroscopic guided lumbar puncture. 2. Recording of opening pressure. The risks, benefits and alternatives to the procedure were explained and verbal and written consent w as obtained. The site was prepped in sterile fashion. Full sterile technique was used, including ca p, mask, sterile gloves and gown and a large sterile sheet. Hand hygiene and 2% chlorhexidine and/or betadine/alcohol prep was utilized per protocol for cutaneous antisepsis. The skin and subcutaneous tissues were infiltrated with local anesthetic solution. With fluoroscopic guidance the lumbar thecal sac was punctured at the above level described above and the opening pressure was recorded. The above described fluid was removed without difficulty. The patient tolerated the procedure well and there were no complications. CONCLUSION: Uncomplicated fluoroscopically guided lumbar puncture with pressures as above. Arpan Torres MD on February 03, 2017 at 13:29 Board Certified Radiologist. This report was verified electronically.
[2017-02-03 14:30] LABS: CSF LYMPHOCYTES 0 %; CSF NEUTROPHILS 0 %
[2017-02-03] MEDS ORDERED: PERC10TA27 PO (14:42)
--- NOTE | 2017-02-03 14:45 | HHI.DCPOC ---
Discharge Care Plan Diagnosis: (1) Chronic headache (2) Pseudotumor cerebri (3) Intractable headache Goals to Promote Your Health * To prevent worsening of your condition and complications, please take medications as prescribed. * To maintain your health at the optimal level, please follow up with Dr. Haddad. Directions to Meet Your Goals Take your medications as prescribed Follow your dietary instruction Follow activity as directed Keep your appointments as scheduled Take your immunizations and boosters as scheduled If your symptoms worsen call your PCP, if no PCP go to Urgent Care Center or Emergency Room Smoking is Dangerous to Your Health. Avoid second hand smoke Call the 24-hour hour crisis hotline for domestic abuse at Damien Etienne MD R2 Feb 03, 2017 14:45
[2017-02-03] MEDS: ACETAMINOPHEN/HYDROcodone 325 MG/10 MG TAB PO PRN (15:08)
[2017-02-03] MEDS ORDERED: SODIUM CHLOR 0.9% 1000 ML INJ 1,000 ML IV ONE (16:00)
[2017-02-03 16:20] VITALS: BP_SYST 124; BP_SYST 126; BP_SYST 139; BP_DIAS 74; BP_DIAS 84; BP_DIAS 86; PULSE 77; RESP 16; TEMP 98.1; O2SAT 97
[2017-02-03 16:38] VITALS: RESP 18
== END 2017-02-03 18:56 | disposition home or self-care (01) ==
LOC: NEPE 20:53 → NEDA 02-02 00:12 → NEPGCP 02-02 02:08
PROVIDERS: ADMIT Family Medicine; ATTEND Family Medicine
DX: G93.2 Benign intracranial hypertension (principal); G43.909 Migraine, unspecified, not intractable, without status migrainosus; I10 Essential (primary) hypertension; F41.8 Other specified anxiety disorders; J06.9 Acute upper respiratory infection, unspecified; J45.909 Unspecified asthma, uncomplicated; Z72.0 Tobacco use; Z87.442 Personal history of urinary calculi
CPT/HCPCS: 62270; 77003; 80053; 80307; 85025; 85610; 85730; 89051; 96361; 96374; 96375; 96376; 97162; 99285; G0378; G8987; G8988; J1200; J2270; J2405; J7030

== ENCOUNTER 2017-02-26 07:04 | Emergency (ER) | payer MEDICAID ==
[~2017-02-26] VITALS: Ht 154.9 cm; Wt 105.0 kg
[~2017-02-26 07:04] MED LIST changes: -HYDR-3366 PO; -HYDR2TAB PO; +PERC10TA27 PO
[2017-02-26 07:08] VITALS: BP 148/87; PULSE 64; RESP 16; TEMP 99.1; O2SAT 97
--- NOTE | 2017-02-26 07:25 | PD ---
HPI Chief Complaint: Headache Time Seen by Provider: 07:24 Travel History International Travel<30 days: No Contact w/Intl Traveler<30days: No Traveled to known affect area: No History of Present Illness HPI 32-year-old female came to the emergency room for her headache. She has history of pseudotumor cerebri and history of chronic headaches. I personally have seen her multiple times in the emergency room and she is well-known to me from a doctor-patient standpoint. Patient says her headache today is the same way that it always happens which is sharp pressure behind her right eye and feels like her right eye is going to pop out. This started last night. Patient does have a neurologist who is Dr. Haddad who has been her neurologist for a long time and is well aware of her condition. She has a neurosurgeon who has currently been established for her and is in [place]. He is as per the patient working her up to get a shunt placed. Patient was seen by our skill training program coordinator in [facility] when she was admitted in the past for her similar headache and the funduscopy as per the skill training program coordinator was within normal limits. However patient says that she has her own skill training program coordinator who has done her eye exam and has noticed optic disc abnormality. Patient had here her last spinal tap done 3 weeks ago and the opening pressure was 31. Currently her vital signs are within normal limits. Patient is on Diamox, Lasix at home and she has taken them like she supposed to as per her. Patient says that since these symptoms started last night she was not able to call any of her doctors and decided to come to the emergency room. [facility] Past Medical History Narrative Medical List of her past medical, surgical, social and family history is reviewed from the nursing note. Hx Anticoagulant Therapy: No Asthma: Yes Blood Disorders: No Cancer: No Cardiovascular Problems: No Chemotherapy: No COPD: No Diabetes: No Diminished Hearing: No Endocrine: No Genitourinary: Yes (KIDNEY STONES) Headaches: Yes Immune Disorder: No Kidney Stones: Yes Musculoskeletal: No Neurologic: Yes (IDIOPATHIC INTERCRANIAL HYPERTENSION, PSUEDOTUMOR CEREBRI) Psychiatric: No Reproductive: Yes (7 MISCARRIAGES) Respiratory: Yes Immunizations Current: Yes Migraines: Yes Radiation Therapy: No Sleep Apnea: No Thyroid Disease: No ?: Not LMP: 02/15/2017 : 8 Para: 1 Miscarriage: 7 Dilation and Curettage (D&C): Yes (x3 ) Past Surgical History Section: Yes Cholecystectomy: Yes Genitourinary Surgery: Yes (STENTS KIDNEYS, LITHOTRIPSIES) Other Surgery: Yes (L KIDNEY STENTx 6) Social History Alcohol Use: No Tobacco Use: No Substance Use: No Allergies-Medications (Allergen,Severity, Reaction): Coded Allergies: Sulfa (Sulfonamide Antibiotics) (Unverified Allergy, Severe, RASH, 02/26/17 ) amoxicillin (Unverified Allergy, Severe, Anaphylaxis, 02/26/17) ketorolac (Verified Allergy, Severe, Anaphylaxis, 02/26/17) anaphylaxis per patient ibuprofen (Unverified Allergy, Intermediate, HIVES, FACIAL SWELLING., 02/26) tramadol (Unverified Allergy, Intermediate, HIVES, 02/26/17) hives, sewll up latex (Unverified Allergy, Unknown, 02/26/17) penicillin G (Unverified Allergy, Unknown, HIVES, 02/26/17) prochlorperazine (Unverified Allergy, Unknown, HIVES, 02/26/17) sumatriptan (Unverified Adverse Reaction, Severe, VOMITING PASSED OUT, 02/26/17) Comments List of her allergies reviewed from the nursing note. Reported Meds & Prescriptions Reported Meds & Active Scripts Active Potassium Chloride ER (Potassium Chloride) 20 Meq Tab 20 Meq PO DAILY Diamox Sequels ER 12 HR (Acetazolamide) 500 Mg Cap 500 Mg PO Q8HR 30 Days Reported Zofran (Ondansetron HCl) 4 Mg Tab 4 Mg PO Q12HR PRN Lasix (Furosemide) 40 Mg Tab 40 Mg PO BID Topamax (Topiramate) 50 Mg Tab 100 Mg PO BID Meclizine (Meclizine HCl) 25 Mg Tab 25 Mg PO DIRECTED PRN Narrative Medication List of her home medications reviewed from the nursing note. Review of Systems Except as stated in HPI: all other systems reviewed are Neg Neurologic: Positive: Headache Physical Exam Narrative GENERAL: Awake, alert, mild distress, morbidly obese SKIN: Focused skin assessment warm/dry. HEAD: Atraumatic. Normocephalic. EYES: Pupils equal and round. No scleral icterus. No injection or drainage. ENT: No nasal bleeding or discharge. Mucous membranes pink and moist. NECK: Trachea midline. No JVD. Neck is supple CARDIOVASCULAR: Regular rate and rhythm. No murmur appreciated. RESPIRATORY: No accessory muscle use. Clear to auscultation. Breath sounds equal bilaterally. GASTROINTESTINAL: Abdomen soft, non-tender, nondistended. Hepatic and splenic margins not palpable. MUSCULOSKELETAL: No obvious deformities. No clubbing. No cyanosis. No edema. NEUROLOGICAL: Awake and alert. No obvious cranial nerve deficits. Motor grossly within normal limits. Normal speech. PSYCHIATRIC: Appropriate mood and affect; insight and judgment normal. Data Data Last Documented VS Vital Signs Date Time Temp Pulse Resp B/P (MAP) Pulse Ox O2 Delivery O2 Flow Rate FiO2 02/26/17 12:33 02/26/17 11:31 61 15 98 Room Air 02/26/17 07:08 99.1 Orders Orders Complete Blood Count With Diff (02/26/17 07:34) Prothrombin Time / Inr (Pt) (02/26/17 07:34) Lumbar Puncture (02/26/17 ) Vital Signs (Adult) .On admission (02/26/17 07:34) Notify Radiology (02/26/17 07:34) Ed Urine Pregnancytest Poc (02/26/17 07:36) Ondansetron Inj (Zofran Inj) (02/26/17 09:00) Acetamin-Hydrocod 325-5 Mg ([place] 5-325 (02/26/17 09:45) Ed Discharge Order (02/26/17 11:33) Labs Laboratory Tests Test 02/26/17 08:16 White Blood Count 8.8 TH/MM3 Red Blood Count 4.15 MIL/MM3 Hemoglobin 11.7 GM/DL Hematocrit 35.4 % Mean Corpuscular Volume 85.2 FL Mean Corpuscular Hemoglobin 28.1 PG Mean Corpuscular Hemoglobin Concent 33.0 % Red Cell Distribution Width 14.2 % Platelet Count 282 TH/MM3 Mean Platelet Volume 7.6 FL Neutrophils (%) (Auto) 63.5 % Lymphocytes (%) (Auto) 27.8 % Monocytes (%) (Auto) 6.6 % Eosinophils (%) (Auto) 1.3 % Basophils (%) (Auto) 0.8 % Neutrophils # (Auto) 5.6 TH/MM3 Lymphocytes # (Auto) 2.5 TH/MM3 Monocytes # (Auto) 0.6 TH/MM3 Eosinophils # (Auto) 0.1 TH/MM3 Basophils # (Auto) 0.1 TH/MM3 CBC Comment DIFF FINAL Differential Comment Prothrombin Time 9.9 SEC Prothromb Time International Ratio 0.9 RATIO MDM Medical Decision Making Medical Screen Exam Complete: Yes Emergency Medical Condition: Yes Medical Record Reviewed: Yes Differential Diagnosis Pseudotumor cerebri, chronic headache Narrative Course 8:58 AM blood test results of back and within acceptable limits. I have ordered for an ultrasound-guided spinal tap to measure the opening pressure today. I was told that the invasive radiology is ready and she will be going over shortly. After the spinal tap if the opening pressure is below 35 I will discharge the patient home. She has been given IV Diamox and Zofran for her nausea. 11:31 AM I was told by the radiologist that patient's opening pressure was 26 and after the fluid removal the closing pressure was 12. At this point I'm comfortable discharging the patient home. She needs to follow up with her neurologist. Procedures EKG Prior to Arrival: No Diagnosis Primary Impression: Chronic headache Qualified Codes: R51 - Headache Additional Impression: Intractable headache Qualified Codes: R51 - Headache Referrals: Antonio Haddad PhD 2 days Additional Instructions: Please follow-up with your neurologist as well as your neurosurgeon within the next couple days. Med/Other Pt SpecificInfo: No Change to Meds Disposition: 01 DISCHARGE HOME Condition: Stable Stephen Barksdale MD Feb 26, 2017 07:25
[2017-02-26 08:30] LABS: AUTOMATED NEUTROPHIL # 5.6 TH/MM3 (1.8-7.7); BASOPHIL # 0.1 TH/MM3 (0-0.2); BASOPHIL % 0.8 % (0.0-2.0); EOSINOPHIL # 0.1 TH/MM3 (0-0.4); EOSINOPHIL % 1.3 % (0.0-4.0); HEMATOCRIT 35.4 % (35.0-46.0); HEMO FLAGS DIFF FINAL; LYMPH % 27.8 % (9.0-44.0); LYMPHOCYTE # 2.5 TH/MM3 (1.0-4.8); MEAN CELL VOLUME 85.2 FL (80.0-100.0); MEAN CORPUSCULAR HEMOGLOBIN 28.1 PG (27.0-34.0); MONO % 6.6 % (0.0-8.0); NEUT % 63.5 % (16.0-70.0); PLATELET COUNT 282 TH/MM3 (150-450); RED BLOOD COUNT 4.15 MIL/MM3 (4.00-5.30); RED CELL DISTRIBUTION WIDTH 14.2 % (11.6-17.2); WHITE BLOOD COUNT 8.8 TH/MM3 (4.0-11.0)
[2017-02-26 08:42] LABS: INTERNATIONAL NORMALIZED RATIO 0.9 RATIO; PROTHROMBIN TIME - PATIENT 9.9 SEC (9.8-11.6)
[2017-02-26] MEDS ORDERED: ONDANSETRON HCL 4 MG/2 ML VIAL IV PUSH ONE (09:00)
[2017-02-26] MEDS ORDERED: ACETAMINOPHEN/HYDROcodone 325 MG/5 MG TAB PO ONE (09:45)
[2017-02-26 11:31] VITALS: BP 137/68; PULSE 61; RESP 15; O2SAT 98
--- NOTE | 2017-02-26 12:35 | RADRPT ---
EXAM DATE/TIME: 02/26/2017 10:28 [place] COMPARISON: LUMBAR PUNCTURE W/OPENING PRESSURES, February 03, 2017, 10:43. INDICATIONS : Patient with history of IIH/pseudotumor cerebri. MEDICAL HISTORY : 1. Psuedotumor cerebri 2. asthma 3. kidney stones SURGICAL HISTORY : 1. Gall bladder removed 2. c section 3. lithotripsies 4. renal stents ENCOUNTER: Initial ACUITY: 1 day PAIN SCORE: 3/10 LOCATION: facial LUMBAR PUNCTURE TIME: 1015 hours FLUORO TIME: 1.1 minutes IMAGE SERIES: 1 ACCESS LEVEL: L3-4 OPENING PRESSURE: 26cm of water CLOSING PRESSURE: 12 cm of waterNot requested. cc of CSF was collected and sent to the laboratory for analysis. PROCEDURE : 1. Fluoroscopic guided lumbar puncture. 2. Recording of opening pressure. The risks, benefits and alternatives to the procedure were explained and verbal and written consent w as obtained. The site was prepped in sterile fashion. Full sterile technique was used, including ca p, mask, sterile gloves and gown and a large sterile sheet. Hand hygiene and 2% chlorhexidine and/or betadine/alcohol prep was utilized per protocol for cutaneous antisepsis. The skin and subcutaneous tissues were infiltrated with local anesthetic solution. With fluoroscopic guidance the lumbar thecal sac was punctured at the above level described above and the opening pressure was recorded. The above described fluid was removed without difficulty. The patient tolerated the procedure well and there were no complications. CONCLUSION: Uncomplicated fluoroscopically guided lumbar puncture with pressures as above. Peter Barcenas MD on February 26, 2017 at 12:33 Board Certified Radiologist. This report was verified electronically.
== END 2017-02-26 12:45 | disposition home or self-care (01) ==
LOC: NEPE 07:04
DX: R51 Headache (principal); J45.909 Unspecified asthma, uncomplicated; G93.2 Benign intracranial hypertension; Z79.899 Other long term (current) drug therapy; Z87.442 Personal history of urinary calculi; Z88.2 Allergy status to sulfonamides; Z88.6 Allergy status to analgesic agent; Z88.0 Allergy status to penicillin; Z88.8 Allergy status to other drugs, medicaments and biological substances
CPT/HCPCS: 62270; 77003; 84703; 85025; 85610; 96374; 99284; J2405

== ENCOUNTER 2017-04-08 15:14 | Emergency (ER) | payer SELFPAY ==
[~2017-04-08 15:14] MED LIST changes: -PERC10TA27 PO
[2017-04-08 15:15] VITALS: BP 142/84; PULSE 77; RESP 12; TEMP 98.7; O2SAT 100
--- NOTE | 2017-04-08 16:17 | PD ---
HPI Chief Complaint: Headache Time Seen by Provider: 15:23 Travel History International Travel<30 days: No Contact w/Intl Traveler<30days: No Traveled to known affect area: No History of Present Illness HPI The patient is a 32-year-old female who presents to the emergency department for headache. The patient has a history of pseudotumor cerebri and is followed by her neurologist, Dr. Haddad. The patient states she had an outpatient lumbar puncture scheduled for April 16, 2017, however, has had increasing headache and was referred to the emergency department for a lumbar puncture. The patient states she had increasing headache behind the right eye with mild blurry vision. She denies any focal deficits. The headache is moderate, possibly exacerbated by history of pseudotumor cerebri, and alleviated in the past with lumbar punctures. PFSH Past Medical History Hx Anticoagulant Therapy: No Asthma: Yes Blood Disorders: No Cancer: No Cardiovascular Problems: No Chemotherapy: No COPD: No Diabetes: No Diminished Hearing: No Endocrine: No Gastrointestinal Disorders: No Genitourinary: Yes (KIDNEY STONES) Headaches: Yes Immune Disorder: No Implanted Vascular Access Dvce: No Kidney Stones: Yes Musculoskeletal: No Neurologic: Yes (IDIOPATHIC INTERCRANIAL HYPERTENSION, PSUEDOTUMOR CEREBRI) Psychiatric: No Reproductive: Yes (7 MISCARRIAGES) Respiratory: Yes Immunizations Current: Yes Migraines: Yes Radiation Therapy: No Sleep Apnea: No Thyroid Disease: No Tetanus Vaccination: < 5 Years ?: Not LMP: 04/05/17 : 8 Para: 1 Miscarriage: 7 Dilation and Curettage (D&C): Yes (x3 ) Past Surgical History Section: Yes Cholecystectomy: Yes Genitourinary Surgery: Yes (STENTS KIDNEYS, LITHOTRIPSIES) Other Surgery: Yes (L KIDNEY (STENTS x 6) Social History Alcohol Use: No Tobacco Use: Yes (1-2 a day) Substance Use: No Allergies-Medications (Allergen,Severity, Reaction): Coded Allergies: Sulfa (Sulfonamide Antibiotics) (Unverified Allergy, Severe, RASH, 02/26/17 ) amoxicillin (Unverified Allergy, Severe, Anaphylaxis, 02/26/17) ketorolac (Verified Allergy, Severe, Anaphylaxis, 02/26/17) anaphylaxis per patient ibuprofen (Unverified Allergy, Intermediate, HIVES, FACIAL SWELLING., 02/26) tramadol (Unverified Allergy, Intermediate, HIVES, 02/26/17) hives, sewll up latex (Unverified Allergy, Unknown, 02/26/17) penicillin G (Unverified Allergy, Unknown, HIVES, 02/26/17) prochlorperazine (Unverified Allergy, Unknown, HIVES, 02/26/17) sumatriptan (Unverified Adverse Reaction, Severe, VOMITING PASSED OUT, 02/26/17) Reported Meds & Prescriptions Reported Meds & Active Scripts Active Potassium Chloride ER (Potassium Chloride) 20 Meq Tab 20 Meq PO DAILY Diamox Sequels ER 12 HR (Acetazolamide) 500 Mg Cap 500 Mg PO Q8HR 30 Days Reported Zofran (Ondansetron HCl) 4 Mg Tab 4 Mg PO Q12HR PRN Lasix (Furosemide) 40 Mg Tab 40 Mg PO BID Topamax (Topiramate) 50 Mg Tab 100 Mg PO BID Meclizine (Meclizine HCl) 25 Mg Tab 25 Mg PO DIRECTED PRN Review of Systems Except as stated in HPI: all other systems reviewed are Neg General / Constitutional: No: Fever Eyes: Positive: Blurred Vision HENT: Positive: Headaches, No: Lightheadedness Cardiovascular: No: Chest Pain or Discomfort Respiratory: No: Shortness of Breath Gastrointestinal: No: Nausea, Vomiting, Abdominal Pain Neurologic: Positive: Headache, No: Dizziness, Change in Mentation, Paresthesia , Sensory Disturbance Physical Exam Narrative GENERAL: Awake, alert, pleasant 32-year-old female who is morbidly obese. SKIN: Focused skin assessment warm/dry. HEAD: Atraumatic. Normocephalic. EYES: Pupils equal and round. 4 mm bilateral and reactive. ENT: No nasal bleeding or discharge. Mucous membranes pink and moist. NECK: Trachea midline. No JVD. CARDIOVASCULAR: Regular rate and rhythm. No murmur appreciated. RESPIRATORY: No accessory muscle use. Clear to auscultation. Breath sounds equal bilaterally. GASTROINTESTINAL: Abdomen soft, non-tender, nondistended. Obese. MUSCULOSKELETAL: No obvious deformities. No clubbing. No cyanosis. No edema. NEUROLOGICAL: Awake and alert. No obvious cranial nerve deficits. Motor grossly within normal limits. Normal speech. Nonfocal. Oriented 4. Follows commands without difficulty. PSYCHIATRIC: Appropriate mood and affect; insight and judgment normal. Data Data Last Documented VS Vital Signs Date Time Temp Pulse Resp B/P (MAP) Pulse Ox O2 Delivery O2 Flow Rate FiO2 04/08/17 15:15 98.7 77 12 142/84 (103) 100 Orders Orders Lumbar Puncture (04/08/17 15:39) Complete Blood Count With Diff (04/08/17 15:31) Basic Metabolic Panel (Bmp) (04/08/17 15:31) Act Partial Throm Time (Ptt) (04/08/17 15:31) Prothrombin Time / Inr (Pt) (04/08/17 15:31) Ecg Monitoring (04/08/17 17:36) Iv Access Insert/Monitor (04/08/17 17:36) Oximetry (04/08/17 17:36) Sodium Chloride 0.9% Flush (Ns Flush) (04/08/17 17:45) Diphenhydramine Inj (Benadryl Inj) (04/08/17 17:45) Metoclopramide Inj (Reglan Inj) (04/08/17 17:45) Sodium Chlor 0.9% 1000 Ml Inj (Ns 1000 M (04/08/17 17:36) Labs Laboratory Tests Test 04/08/17 16:00 White Blood Count 8.0 TH/MM3 Red Blood Count 4.30 MIL/MM3 Hemoglobin 12.0 GM/DL Hematocrit 36.4 % Mean Corpuscular Volume 84.6 FL Mean Corpuscular Hemoglobin 27.9 PG Mean Corpuscular Hemoglobin Concent 33.0 % Red Cell Distribution Width 13.0 % Platelet Count 261 TH/MM3 Mean Platelet Volume 8.1 FL Neutrophils (%) (Auto) 54.8 % Lymphocytes (%) (Auto) 35.8 % Monocytes (%) (Auto) 6.9 % Eosinophils (%) (Auto) 2.1 % Basophils (%) (Auto) 0.4 % Neutrophils # (Auto) 4.4 TH/MM3 Lymphocytes # (Auto) 2.9 TH/MM3 Monocytes # (Auto) 0.6 TH/MM3 Eosinophils # (Auto) 0.2 TH/MM3 Basophils # (Auto) 0.0 TH/MM3 CBC Comment DIFF FINAL Differential Comment Prothrombin Time 10.1 SEC Prothromb Time International Ratio 1.0 RATIO Activated Partial Thromboplast Time 26.3 SEC Blood Urea Nitrogen 8 MG/DL Creatinine 0.60 MG/DL Random Glucose 103 MG/DL Calcium Level 8.6 MG/DL Sodium Level 141 MEQ/L Potassium Level 3.6 MEQ/L Chloride Level 106 MEQ/L Carbon Dioxide Level 27.0 MEQ/L Anion Gap 8 MEQ/L Estimat Glomerular Filtration Rate 116 ML/MIN MDM Medical Decision Making Medical Screen Exam Complete: Yes Emergency Medical Condition: Yes Medical Record Reviewed: Yes Interpretation(s) Laboratory Tests Test 04/08/17 16:00 White Blood Count 8.0 TH/MM3 Red Blood Count 4.30 MIL/MM3 Hemoglobin 12.0 GM/DL Hematocrit 36.4 % Mean Corpuscular Volume 84.6 FL Mean Corpuscular Hemoglobin 27.9 PG Mean Corpuscular Hemoglobin Concent 33.0 % Red Cell Distribution Width 13.0 % Platelet Count 261 TH/MM3 Mean Platelet Volume 8.1 FL Neutrophils (%) (Auto) 54.8 % Lymphocytes (%) (Auto) 35.8 % Monocytes (%) (Auto) 6.9 % Eosinophils (%) (Auto) 2.1 % Basophils (%) (Auto) 0.4 % Neutrophils # (Auto) 4.4 TH/MM3 Lymphocytes # (Auto) 2.9 TH/MM3 Monocytes # (Auto) 0.6 TH/MM3 Eosinophils # (Auto) 0.2 TH/MM3 Basophils # (Auto) 0.0 TH/MM3 CBC Comment DIFF FINAL Differential Comment Prothrombin Time 10.1 SEC Prothromb Time International Ratio 1.0 RATIO Activated Partial Thromboplast Time 26.3 SEC Blood Urea Nitrogen 8 MG/DL Creatinine 0.60 MG/DL Random Glucose 103 MG/DL Calcium Level 8.6 MG/DL Sodium Level 141 MEQ/L Potassium Level 3.6 MEQ/L Chloride Level 106 MEQ/L Carbon Dioxide Level 27.0 MEQ/L Anion Gap 8 MEQ/L Estimat Glomerular Filtration Rate 116 ML/MIN Differential Diagnosis Differential diagnosis includes pseudotumor cerebri, drug-seeking behavior, malingering, tension headache, migraine, optic neuritis. Narrative Course IV was established, labs are drawn and sent, and the patient was placed on cardiac telemetry monitoring and continuous pulse oximetry monitoring. CBC, BMP , coags were sent to lab. I called the invasive radiology department and placed a call to invasive radiology to perform a lumbar puncture. Labs are unremarkable. The patient went to interventional radiology for therapeutic lumbar puncture, however, when she got to interventional radiology she refused to have the lumbar puncture performed. She stated she became dizzy. The patient return to the emergency department. I advised the patient she would need to receive her therapeutic lumbar puncture as an outpatient. The patient was administered Dilaudid, Benadryl, and I ordered Reglan. However, she refused the Reglan. The patient will be discharged home with her . She is advised to follow-up with her neurologist and to receive her lumbar puncture outpatient as she refused it through the emergency department. Diagnosis Primary Impression: Pseudotumor cerebri Additional Impression: Headache Qualified Codes: R51 - Headache Patient Instructions: General Instructions Additional Instructions: Follow-up with your primary physician. Return if symptoms worsen or progress. Follow-up with your neurologist. Disposition: DISCHARGE HOME Condition: Stable Eduard Young MD Apr 08, 2017 16:17
[2017-04-08 16:37] LABS: AUTOMATED NEUTROPHIL # 4.4 TH/MM3 (1.8-7.7); BASOPHIL % 0.4 % (0.0-2.0); EOSINOPHIL # 0.2 TH/MM3 (0-0.4); EOSINOPHIL % 2.1 % (0.0-4.0); HEMATOCRIT 36.4 % (35.0-46.0); HEMO FLAGS DIFF FINAL; LYMPH % 35.8 % (9.0-44.0); LYMPHOCYTE # 2.9 TH/MM3 (1.0-4.8); MEAN CELL VOLUME 84.6 FL (80.0-100.0); MEAN CORPUSCULAR HEMOGLOBIN 27.9 PG (27.0-34.0); MONO % 6.9 % (0.0-8.0); NEUT % 54.8 % (16.0-70.0); PLATELET COUNT 261 TH/MM3 (150-450)
[2017-04-08 16:49] LABS: APTT (PATIENT) 26.3 SEC (24.3-30.1); PROTHROMBIN TIME - PATIENT 10.1 SEC (9.8-11.6)
[2017-04-08 16:53] LABS: POTASSIUM 3.6 MEQ/L (3.5-5.1)
--- NOTE | 2017-04-08 17:06 | PD.RAD ---
Radiology Note Patient very well known to IR with a history of pseudotumor cerebri and about 5 previous LPs with O/P dating back to November of this year (2016). Patient presented to ED with recurrent symptoms and emergent LP requested. Call team was alerted, patient was placed prone on the angio table, LP tray was opened and the back prepped and draped. She then complained that she felt like she was going to pass out and decided she didn't want to proceed with the LP at this time. Patient was placed back on her stretcher and transferred to the ED. Boo Roy MD Apr 08, 2017 17:06
[2017-04-08] MEDS ORDERED: SODIUM CHLOR 0.9% 1000 ML INJ 1,000 ML IV ONE (17:36)
[2017-04-08] MEDS ORDERED: diphenhydrAMINE HCL 50 MG/ML VIAL IVP ONE (17:45)
[2017-04-08] MEDS ORDERED: SODIUM CHLORIDE 0.9% FLUSH 10 ML FLUSH IVF PRN (17:45)
[2017-04-08] MEDS ORDERED: METOCLOPRAMIDE HCL 10 MG/2 ML VIAL IVP ONE (17:45)
== END 2017-04-08 18:53 | disposition home or self-care (01) ==
LOC: NEPE 15:14
DX: G93.2 Benign intracranial hypertension (principal); R51 Headache; E66.01 Morbid (severe) obesity due to excess calories; J45.909 Unspecified asthma, uncomplicated; F17.200 Nicotine dependence, unspecified, uncomplicated; Z87.442 Personal history of urinary calculi; Z79.899 Other long term (current) drug therapy; Z88.2 Allergy status to sulfonamides; Z88.6 Allergy status to analgesic agent
CPT/HCPCS: 80048; 85025; 85610; 85730; 96374; 99284; J1200; J7030

== ENCOUNTER 2017-04-09 19:35 | Observation (INO) | payer SELFPAY ==
[~2017-04-09] VITALS: Ht 154.9 cm; Wt 105.0 kg
[2017-04-09 19:36] VITALS: BP 141/76; PULSE 73; RESP 16; TEMP 98.3; O2SAT 98
[2017-04-09 19:47] VITALS: BP 111/71; PULSE 63; RESP 16; O2SAT 96
--- NOTE | 2017-04-09 20:03 | PD ---
HPI Chief Complaint: Headache Time Seen by Provider: 19:43 Travel History International Travel<30 days: No Contact w/Intl Traveler<30days: No Traveled to known affect area: No History of Present Illness HPI Patient is a 34-year-old female with pseudotumor cerebri. Multiple LPs and she was scheduled to have a LP on 16 April. Yesterday she had came to ER and was sent to IR for LP. LP in progress when she stopped them because she was "too dizziness. " thought I was gonna pass out" Pt WENT home and called DR Boo jean baptiste and Lien is aware pt in ER .. They will schedule her next LP for the APR 14.. A HIDE SORTER shunt is being discussed with Neurosurgeons Mikey. Tessa HERBERT was aware of her case thru Dr Haddad , pt reports " he's taking too long and its not fair". Patient reports visual changes and pressure in her head decreased vision in the right eye. Pt had Normal MRI and MRV on 12/01/2016 ... Pt opening pressure was 26 Hgmm on recent opening by boo izquierdo 02/26/2017 Alos found the same opening pressure on other LP over last year PFSH Past Medical History Hx Anticoagulant Therapy: No Asthma: Yes Blood Disorders: No Cancer: No Cardiovascular Problems: No Chemotherapy: No COPD: No Diabetes: No Diminished Hearing: No Endocrine: No Gastrointestinal Disorders: No Genitourinary: Yes (KIDNEY STONES) Headaches: Yes Immune Disorder: No Implanted Vascular Access Dvce: No Kidney Stones: Yes Musculoskeletal: No Neurologic: Yes (IDIOPATHIC INTERCRANIAL HYPERTENSION, PSUEDOTUMOR CEREBRI) Psychiatric: No Reproductive: Yes (7 MISCARRIAGES) Respiratory: Yes Immunizations Current: Yes Migraines: Yes Radiation Therapy: No Sleep Apnea: No Thyroid Disease: No ?: Not LMP: 03/27/17 : 8 Para: 1 Miscarriage: 7 Dilation and Curettage (D&C): Yes (x3 ) Past Surgical History Section: Yes Cholecystectomy: Yes Genitourinary Surgery: Yes (STENTS KIDNEYS, LITHOTRIPSIES) Other Surgery: Yes (L KIDNEY (STENTS x 6) Social History Alcohol Use: No Tobacco Use: Yes (RARELY) Substance Use: No Allergies-Medications (Allergen,Severity, Reaction): Coded Allergies: Sulfa (Sulfonamide Antibiotics) (Unverified Allergy, Severe, RASH, ) amoxicillin (Unverified Allergy, Severe, Anaphylaxis, 04/09/17) ketorolac (Verified Allergy, Severe, Anaphylaxis, 04/09/17) anaphylaxis per patient ibuprofen (Unverified Allergy, Intermediate, HIVES, FACIAL SWELLING., ) tramadol (Unverified Allergy, Intermediate, HIVES, 04/09/17) hives, sewll up latex (Unverified Allergy, Unknown, 04/09/17) penicillin G (Unverified Allergy, Unknown, HIVES, 04/09/17) prochlorperazine (Unverified Allergy, Unknown, HIVES, 04/09/17) sumatriptan (Unverified Adverse Reaction, Severe, VOMITING PASSED OUT, ) Reported Meds & Prescriptions Reported Meds & Active Scripts Active Reported Zofran (Ondansetron HCl) 4 Mg Tab 4 Mg PO Q12HR PRN Meclizine (Meclizine HCl) 25 Mg Tab 25 Mg PO DIRECTED PRN Review of Systems Except as stated in HPI: all other systems reviewed are Neg Neurologic: Positive: Headache Physical Exam Narrative GENERAL: non toxic appearance no distress over her vision which she claims is changed SKIN: Warm and dry. HEAD: Atraumatic. Normocephalic. EYES: Pupils equal and round. ENT: No nasal bleeding or discharge. Mucous membranes pink and moist. NECK: Trachea midline. No JVD. CARDIOVASCULAR: Regular rate and rhythm. RESPIRATORY: No accessory muscle use. Clear to auscultation. Breath sounds equal bilaterally. GASTROINTESTINAL: Abdomen soft, non-tender, nondistended. Hepatic and splenic margins not palpable. MUSCULOSKELETAL: Extremities without clubbing, cyanosis, or edema. No obvious deformities. NEUROLOGICAL: Awake and alert. No obvious cranial nerve deficits. Motor grossly within normal limits. Five out of 5 muscle strength in the arms and legs. Normal speech. PSYCHIATRIC: Appropriate mood and affect; insight and judgment normal. Data Data Last Documented VS Vital Signs Date Time Temp Pulse Resp B/P (MAP) Pulse Ox O2 Delivery O2 Flow Rate FiO2 04/09/17 19:50 64 16 96 Room Air 04/09/17 19:47 111/71 (84) 04/09/17 19:36 [address] In Observation (04/09/17 ) Vital Signs (Adult) Q4H (04/09/17 22:45) Activity Oob Ad Tanja (04/09/17 22:45) Sodium Chloride 0.9% Flush (Ns Flush) (04/09/17 22:45) Sodium Chloride 0.9% Flush (Ns Flush) (04/10/17 09:00) Acetaminophen (Tylenol) (04/09/17 22:45) Ondansetron Inj (Zofran Inj) (04/09/17 22:45) Basic Metabolic Panel (Bmp) (04/10/17 06:00) Complete Blood Count With Diff (04/10/17 06:00) Scd Bilateral/Knee High SORAYA.BID (04/09/17 22:45) Naloxone Inj (Narcan Inj) (04/09/17 22:45) Docusate Sodium-Senna (Yojana-Colace) (04/10/17 09:00) Magnesium Hydroxide Liq (Milk Of Magnesi (04/09/17 22:45) Sennosides (Senokot) (04/09/17 22:45) Bisacodyl Supp (Dulcolax Supp) (04/09/17 22:45) Lactulose Liq (Lactulose Liq) (04/09/17 22:45) Coag Profile (04/09/17 22:45) Admit Order (Ed Use Only) (04/09/17 22:52) Lumbar Puncture (04/10/17 ) MDM Medical Decision Making Medical Screen Exam Complete: Yes Emergency Medical Condition: Yes Differential Diagnosis pt has chronic headaches and frequent visits for the same , DDx head NOS tension , vs pseudo tumor, vs tension DELCID vs Malingering, al LP I reviewed had opening Pressures of 25,28,26 cm H2O , I could find no elevated opening pressures in her Hx Narrative Course Patient is been in the ER multiple times and just yesterday she went for an LP and then declined to have the LP because she said she was so dizzy that had to stop the procedure she went home she comes back 24 hours later. She tells me of her neurologist Dr. Haddad and the neurosurgeons that she has requested. I paged both neurosurgery and neurology who both feel that there is no intervention at this time indicated as she's had multiple MRIs as well as LPs that never had opening pressures that were elevated is unclear what the patient' s diagnoses actually is. Patient is admitted and an LP is ordered and I discussed the details the possibly this case could be malingering versus actually having pseudotumor cerebri Diagnosis Primary Impression: Recurrent headache Scripts Hydrocodone-Acetaminophen (Raymond) 5 Mg-325 Mg Tab 1 TAB PO Q6H Y for PAIN, #10 TAB 0 Refills Prov: Shefali Ventura MD 04/11/17 Potassium Chloride ER (Potassium Chloride ER) 20 Meq Tab 20 MEQ PO DAILY for Electrolyte Replacement, #30 TAB 0 Refills Prov: Melissa Smith 04/11/17 Acetazolamide ER 12 HR (Diamox Sequels ER 12 HR) 500 Mg Cap 500 MG PO Q8HR for Glaucoma for 30 Days, #90 CAP 0 Refills Prov: Melissa Smith 04/11/17 Furosemide (Lasix) 40 Mg Tab 40 MG PO BID for FLUID OVERLOAD, #60 TAB 0 Refills Prov: Melissa Smith 04/11/17 Topiramate (Topamax) 50 Mg Tab 100 MG PO BID for Control Seizures, #60 TAB 0 Refills Prov: Melissa Smith 04/11/17 Jaspal Goyal MD Apr 09, 2017 20:03
[2017-04-09] MEDS ORDERED: BISACODYL 10 MG SUPP RECTAL PRN (22:45)
[2017-04-09] MEDS ORDERED: ACETAMINOPHEN 325 MG TAB PO PRN (22:45)
[2017-04-09] MEDS ORDERED: LACTULOSE SYRUP 20 GM/30 ML CUP PO PRN (22:45)
[2017-04-09] MEDS ORDERED: SENNOSIDES 8.6 MG TAB PO PRN (22:45)
[2017-04-09] MEDS ORDERED: MAGNESIUM HYDROXIDE SUSP 30 ML CUP PO PRN (22:45)
[2017-04-09] MEDS ORDERED: NALOXONE HCL 0.4 MG/ML AMP IV PUSH PRN (22:45)
--- NOTE | 2017-04-09 23:02 | HHI.HP ---
[facility]ician No Primary Care Physician Admission Diagnosis Diagnoses: Travel History International Travel<30 Days: No Contact w/Intl Traveler <30 Da: No Traveled to Known Affected Are: No History of Present Illness 32-year-old female with a past medical history significant for pseudotumor cerebri, neurologist is Dr. Haddad, presents to the emergency department for continued headache and right eye visual changes. ED yesterday and was scheduled for an LP with interventional radiology however the procedure was unable to be completed because the patient became dizzy and did not feel that she would be able to tolerate it. Patient returns to the emergency department this evening with the same symptoms that have not improved. She will be admitted for overnight observation with plan for LP in the morning. Review of Systems Denies fever or chills Positive blurry vision, No otorrhea, rhinorrhea Denies sore throat and cough No chest pain, palpitations, shortness of breath No abdominal pain Denies constipation/diarrhea/nausea/vomiting Denies muscle pain/weakness No rashes Past Family Social History Past Medical History Pseudotumor cerebri History of renal stones Past Surgical History Multiple lumbar punctures Renal stent placement - left Reported Medications Reported Meds & Active Scripts Active Potassium Chloride ER (Potassium Chloride) 20 Meq Tab 20 Meq PO DAILY Diamox Sequels ER 12 HR (Acetazolamide) 500 Mg Cap 500 Mg PO Q8HR 30 Days Reported Zofran (Ondansetron HCl) 4 Mg Tab 4 Mg PO Q12HR PRN Lasix (Furosemide) 40 Mg Tab 40 Mg PO BID Topamax (Topiramate) 50 Mg Tab 100 Mg PO BID Meclizine (Meclizine HCl) 25 Mg Tab 25 Mg PO DIRECTED PRN Allergies: Coded Allergies: Sulfa (Sulfonamide Antibiotics) (Unverified Allergy, Severe, RASH, ) amoxicillin (Unverified Allergy, Severe, Anaphylaxis, 04/09/17) ketorolac (Verified Allergy, Severe, Anaphylaxis, 04/09/17) anaphylaxis per patient ibuprofen (Unverified Allergy, Intermediate, HIVES, FACIAL SWELLING., ) tramadol (Unverified Allergy, Intermediate, HIVES, 04/09/17) hives, sewll up latex (Unverified Allergy, Unknown, 04/09/17) penicillin G (Unverified Allergy, Unknown, HIVES, 04/09/17) prochlorperazine (Unverified Allergy, Unknown, HIVES, 04/09/17) sumatriptan (Unverified Adverse Reaction, Severe, VOMITING PASSED OUT, ) Family History Denies family history of CAD/DM Social History Smokes a cigarette approximately every 3 days. Denies alcohol, illicit drugs. Physical Exam Vital Signs Vital Signs Date Time Temp Pulse Resp B/P (MAP) Pulse Ox O2 Delivery O2 Flow Rate FiO2 04/09/17 19:50 64 16 96 Room Air 04/09/17 19:47 63 16 111/71 (84) 96 04/09/17 19:36 98.3 73 16 141/76 (97) 98 Room Air Physical Exam GENERAL: Obese female lying in bed SKIN: No rashes, ecchymoses or lesions. Cool and dry. HEAD: Atraumatic. Normocephalic. No temporal or scalp tenderness. EYES: Pupils equal round and reactive. Extraocular motions intact. No scleral icterus. No injection or drainage. ENT: Nose without bleeding, purulent drainage or septal hematoma. Throat without erythema, tonsillar hypertrophy or exudate. Uvula midline. Airway patent. NECK: Trachea midline. No JVD or lymphadenopathy. Supple, nontender, no meningeal signs. CARDIOVASCULAR: Regular rate and rhythm without murmurs, gallops, or rubs. RESPIRATORY: Clear to auscultation. Breath sounds equal bilaterally. No wheezes , rales, or rhonchi. GASTROINTESTINAL: Abdomen soft, non-tender, nondistended. No hepato-splenomegaly , or palpable masses. No guarding. MUSCULOSKELETAL: Extremities without clubbing, cyanosis, or edema. No joint tenderness, effusion, or edema noted. No calf tenderness. NEUROLOGICAL: Awake and alert. Cranial nerves II through XII intact. Motor and sensory grossly within normal limits. Normal speech. Caprini VTE Risk Assessment Caprini VTE Risk Assessment: No/Low Risk (score <= 1) Caprini Risk Assessment Model Point Value = 1 Point Value = 2 Point Value = 3 Point Value = 5 Age 41-60 Minor surgery BMI > 25 kg/m2 Swollen legs Varicose veins or History of unexplained or recurrent spontaneous Oral contraceptives or hormone replacement Sepsis (< 1 month) Serious lung disease, including pneumonia (< 1 month) Abnormal pulmonary function Acute myocardial infarction Congestive heart failure (< 1 month) History of inflammatory bowel disease Medical patient at bed rest Age 61-74 Arthroscopic surgery Major open surgery (> 45 min) Laparoscopic surgery (> 45 min) Malignancy Confined to bed (> 72 hours) Immobilizing plaster cast Central venous access Age >= 75 History of VTE Family history of VTE Factor V Leiden Prothrombin [id number] Lupus anticoagulant Anticardiolipin antibodies Elevated serum homocysteine Heparin-induced thrombocytopenia Other congenital or acquired thrombophilia Stroke (< 1 month) Elective arthroplasty Hip, pelvis, or leg fracture Acute spinal cord injury (< 1 month) Prophylaxis Regimen Total Risk Factor Score Risk Level Prophylaxis Regimen 0-1 Low Early ambulation 2 Moderate Order ONE of the following: *Sequential Compression Device (SCD) *Heparin 5000 units SQ BID 3-4 Higher Order ONE of the following medications: *Heparin 5000 units SQ TID *Enoxaparin/Lovenox 40 mg SQ daily (WT < 150 kg, CrCl > 30 mL/min) *Enoxaparin/Lovenox 30 mg SQ daily (WT < 150 kg, CrCl > 10-29 mL/min) *Enoxaparin/Lovenox 30 mg SQ BID (WT < 150 kg, CrCl > 30 mL/min) AND/OR *Sequential Compression Device (SCD) 5 or more Highest Order ONE of the following medications: *Heparin 5000 units SQ TID (Preferred with Epidurals) *Enoxaparin/Lovenox 40 mg SQ daily (WT < 150 kg, CrCl > 30 mL/min) *Enoxaparin/Lovenox 30 mg SQ daily (WT < 150 kg, CrCl > 10-29 mL/min) *Enoxaparin/Lovenox 30 mg SQ BID (WT < 150 kg, CrCl > 30 mL/min) AND *Sequential Compression Device (SCD) Assessment and Plan Assessment and Plan Assessment/plan: 1. Pseudotumor cerebri Patient admitted for observation with plan for LP with IR tomorrow Anticipate DC after procedure Neurologist is Sharyn Braden MD Apr 09, 2017 23:02
[2017-04-09 23:47] VITALS: BP 137/82; PULSE 61; RESP 16; O2SAT 98
[2017-04-10] VITALS (8 sets, daily range): BP systolic 97–150; BP diastolic 51–73; PULSE 53–94; RESP 16–20; TEMP 97.7–98.5; O2SAT 95–100
[2017-04-10 00:13] LABS: APTT (PATIENT) 24.9 SEC (24.3-30.1); PROTHROMBIN TIME - PATIENT 10.5 SEC (9.8-11.6)
[2017-04-10] MEDS: ONDANSETRON HCL 4 MG/2 ML VIAL IVP PRN ×3 (00:22→19:38)
[2017-04-10] MEDS: HYDROmorphone HCL PF 2 MG/ML VIAL IV PUSH PRN ×5 (01:15→19:38)
[2017-04-10] MEDS: SODIUM CHLORIDE 0.9% FLUSH 10 ML FLUSH IV FLUSH PRN ×2 (01:16→05:32)
[2017-04-10] MEDS: SODIUM CHLORIDE 0.9% FLUSH 10 ML FLUSH IV FLUSH SCH ×2 (09:00→22:55)
[2017-04-10] MEDS: DOCUSATE SODIUM 50 MG/SENNA 8.6 MG TAB PO SCH ×2 (09:00→22:55)
[2017-04-10] MEDS ORDERED: LORazepam 2 MG/ML VIAL ONE (10:56)
--- NOTE | 2017-04-10 11:47 | PD.RAD ---
Post Procedure Progress Note Pre Procedure Diagnosis: (1) Pseudotumor cerebri Post Procedure Diagnosis: (1) Pseudotumor cerebri Procedure Date: Apr 10, 2017 Supervising Radiologist: Josue Vargas Proceduralist/Assist: Thomas Duke, RT(R), Louie Morales RT(R) Anesthesia: Local Plan of Activity Patient to Unit: ROPU Patient Condition: Good See PACS Report for procedural detail/treatment Josue Vargas MD Apr 10, 2017 11:47
[2017-04-10 12:55] LABS: GROSS BLOOD TUBE #1 0 (0); GROSS BLOOD TUBE #2 0 (0); GROSS BLOOD TUBE #3 0 (0); GROSS BLOOD TUBE #4 0 (0); SUPERNATE COLOR TUBE #1 CLEAR (CLEAR); SUPERNATE COLOR TUBE #2 CLEAR (CLEAR); SUPERNATE COLOR TUBE #3 CLEAR (CLEAR); SUPERNATE COLOR TUBE #4 CLEAR (CLEAR); WBC TUBE #4 0 /MM3 (0-10)
[2017-04-10 12:56] LABS: CSF LYMPHOCYTES 0 %; CSF NEUTROPHILS 0 %
--- NOTE | 2017-04-10 13:11 | RADRPT ---
EXAM DATE/TIME: 04/10/2017 12:33 [facility] COMPARISON: LUMBAR PUNCTURE W/OPENING PRESSURES, February 26, 2017, 10:28. INDICATIONS : Patient with a history of pseudotumor cerebri. MEDICAL HISTORY : Pseudotumor cerebri Blurred vision Renal stones SURGICAL HISTORY : Multiple lumbar punctures Renal stent ENCOUNTER: Subsequent ACUITY: 7 - 11 months PAIN SCORE: 8/10 LOCATION: Headaches LUMBAR PUNCTURE TIME: 1129 FLUORO TIME: 0.21 minutes 2 ACCESS LEVEL: L4-5 OPENING PRESSURE: 13.5 cm of water CLOSING PRESSURE: 10 cm of water FLUID: 10 cc of clear CSF was collected and sent to the laboratory for analysis. SEDATION: 1.) 2 mg lorazepam (Ativan) IV PROCEDURE : 1. Fluoroscopic guided lumbar puncture. 2. Recording of opening pressure. The risks, benefits and alternatives to the procedure were explained and verbal and written consent w as obtained. The site was prepped in sterile fashion. Full sterile technique was used, including ca p, mask, sterile gloves and gown and a large sterile sheet. Hand hygiene and 2% chlorhexidine and/or betadine/alcohol prep was utilized per protocol for cutaneous antisepsis. The skin and subcutaneous tissues were infiltrated with local anesthetic solution. With fluoroscopic guidance the lumbar thecal sac was punctured at the above level described above and the opening pressure was recorded. The above described fluid was removed without difficulty. The patient tolerated the procedure well and there were no complications. CONCLUSION: Uncomplicated fluoroscopically guided lumbar puncture with pressures as above. Josue Vargas MD on April 10, 2017 at 13:09 Board Certified Radiologist. This report was verified electronically.
[2017-04-10 13:55] LABS: AUTOMATED NEUTROPHIL # 11.3 TH/MM3 (1.8-7.7); BASOPHIL # 0.1 TH/MM3 (0-0.2); BASOPHIL % 0.5 % (0.0-2.0); EOSINOPHIL % 0.1 % (0.0-4.0); HEMATOCRIT 39.5 % (35.0-46.0); HEMO FLAGS DIFF FINAL; LYMPH % 17.8 % (9.0-44.0); LYMPHOCYTE # 2.6 TH/MM3 (1.0-4.8); MEAN CELL VOLUME 83.9 FL (80.0-100.0); MEAN CORPUSCULAR HEMOGLOBIN 28.7 PG (27.0-34.0); MEAN CORPUSCULAR HGB CONC 34.2 % (32.0-36.0); MONO % 5.4 % (0.0-8.0); NEUT % 76.2 % (16.0-70.0); PLATELET COUNT 308 TH/MM3 (150-450); RED BLOOD COUNT 4.71 MIL/MM3 (4.00-5.30); WHITE BLOOD COUNT 14.9 TH/MM3 (4.0-11.0)
[2017-04-10 14:19] LABS: BICARBONATE 19.6 MEQ/L (21.0-32.0); POTASSIUM 3.6 MEQ/L (3.5-5.1)
--- NOTE | 2017-04-10 16:26 | HHI.PR ---
Subjective Remarks Written by Melissa Smith, acting as scribe for Dr. Ventura on 04/10/17 at 16: 17. Follow up on patient with pseudotumor cerebri. Patient seen and examined. Patient s/p LP earlier today. She reports some sensitivity over the LP site. She also reports some slight numbness in her legs which is common for her following LP. She states the pressure in her head and behind her right eye has improved since the procedure. She follows with Dr. Haddad as outpatient who is trying to get patient into [facility] for a shunt procedure. 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 She denies having glaucoma. She reports some nausea with dry heaves. Objective Vitals Vital Signs Date Time Temp Pulse Resp B/P (MAP) Pulse Ox O2 Delivery O2 Flow Rate FiO2 04/10/17 15:25 98.0 55 20 107/54 (71) 97 04/10/17 12:40 97.9 75 18 121/57 (78) 97 04/10/17 08:00 98.0 55 20 107/54 (71) 97 04/10/17 06:02 14 04/10/17 03:07 97.8 53 17 110/61 (77) 98 04/10/17 01:05 97.7 55 16 112/57 (75) 98 04/10/17 00:06 94 16 150/73 (98) 100 Ventilator 04/09/17 23:47 61 16 137/82 (100) 98 Room Air 04/09/17 19:50 64 16 96 Room Air 04/09/17 19:47 63 16 111/71 (84) 96 04/09/17 19:36 98.3 73 16 141/76 (97) 98 Room Air Result Diagram: 04/10/17 1315 04/10/17 1315 Imaging Last Impressions Lumbar Puncture Fluoroscopy 04/10/17 0000 Signed Impressions: Service Date/Time: March 12:33 - CONCLUSION: Uncomplicated fluoroscopically guided lumbar puncture with pressures as above. Josue Vargas MD Objective Remarks GENERAL: Well-developed well-nourished obese female lying in bed. Awake and alert. SKIN: Cool and dry. LP site C/D/I. HEAD: Atraumatic. Normocephalic. EYES: Pupils equal round and reactive. Extraocular motions intact. No scleral icterus. No injection or drainage. ENT: Nose without bleeding or purulent drainage. Airway patent. NECK: Trachea midline. CARDIOVASCULAR: Regular rate and rhythm without murmurs, gallops, or rubs. RESPIRATORY: Clear to auscultation. Breath sounds equal bilaterally. No wheezes , rales, or rhonchi. GASTROINTESTINAL: Abdomen soft, non-tender, nondistended. No hepato-splenomegaly , or palpable masses. No guarding. MUSCULOSKELETAL: Extremities without clubbing, cyanosis, or edema. No joint tenderness, effusion, or edema noted. No calf tenderness. NEUROLOGICAL: Awake and alert. Cranial nerves II through XII grossly intact. Motor and sensory grossly within normal limits. No focal neurologic findings appreciated. Normal speech. Medications and IVs Current Medications Medications (Trade) Dose Ordered Sig/Jd Route Start Time Stop Time Status Last Admin (NS Flush) 2 ml UNSCH PRN IV FLUSH 04/09/17 22:45 04/10/17 05:32 (NS Flush) 2 ml BID IV FLUSH 04/10/17 09:00 04/10/17 09:00 (Tylenol) 650 mg Q4H PRN PO 04/09/17 22:45 (Zofran Inj) 4 mg Q6H PRN IVP 04/09/17 22:45 04/10/17 09:24 (Narcan Inj) 0.4 mg UNSCH PRN IV PUSH 04/09/17 22:45 (Yojana-Colace) 1 tab BID PO 04/10/17 09:00 04/10/17 09:00 (Milk Of Magnesia Liq) 30 ml Q12H PRN PO 04/09/17 22:45 (Senokot) 17.2 mg Q12H PRN PO 04/09/17 22:45 (Dulcolax Supp) 10 mg DAILY PRN RECTAL 04/09/17 22:45 (Lactulose Liq) 30 ml DAILY PRN PO 04/09/17 22:45 (Dilaudid Pf Inj) 0.5 mg Q4H PRN IV PUSH 04/10/17 00:45 04/10/17 13:48 A/P Assessment and Plan 32-year-old female with a past medical history significant for pseudotumor cerebri, neurologist is Dr. Boo, presents to the emergency department for continued headache and right eye visual changes. 1. Pseudotumor cerebri s/p LP earlier today with decreased head and right eye pressure Tylenol prn headache Zofran prn nausea Consult neurology regular diet DVT prophylaxis bilateral SCD/MEME hose This note was transcribed by scribe []. I, Dr. Shefali Ventura personally performed the history, physical exam, and medical decision making; and confirmed the accuracy of the information in the transcribed note. Authenticated by Dr. Shefali Ventura on 04/10/17 at 20:01. Discharge Planning Pending neurology clearance This note was transcribed by scribe [ Melissa Smith ]. I, Dr. Shefali Ventura personally performed the history, physical exam, and medical decision making; and confirmed the accuracy of the information in the transcribed note. Authenticated by Dr. Ventura on 04/10/17 at 16:23. Melissa Smith Apr 10, 2017 16:26 Shefali Ventura MD Apr 10, 2017 20:02
[2017-04-10] MEDS ORDERED: acetaZOLAMIDE 250 MG TAB PO SCH (17:30)
[2017-04-10] MEDS: TOPIRAMATE 100 MG TAB PO SCH (20:01)
--- NOTE | 2017-04-10 22:10 | MB ---
cc: LEO DAWSON MD DATE OF CONSULTATION 04/10/17 REASON FOR CONSULTATION Pseudotumor cerebri. HISTORY OF PRESENT ILLNESS Ms. Mayberry is a 32-year-old female with past medical history of pseudotumor cerebri diagnosed five years ago, follows up with Dr. Haddad and she is on Diamox 500 mg three times daily, Lasix 40 mg twice daily and she does serial therapeutic lumbar puncture. The patient was assessed by neurosurgery and did not recommend SUPERANNUATION CLERK shunt at this time. Dr. Haddad follows up with her and he is trying to refer her to [facility] to do the shunting. The patient is seen after therapeutic LP was done. The opening pressure was 13.5. The closing pressure was 10. She was still in pain and she is still complaining of pressure in the head with the right eye blurring and she was displeased that not enough amount was taken of the spinal fluid and she thinks that the measurement of the pressure was not accurate. The patient states that she does not want to be on Dilaudid for breakthrough pains and she states that she is on Topamax 100 mg twice daily preventative therapy for her migraine headaches. She states that she does not want to be in this quality of life where she has constant headache, she has to go to the emergency room for therapeutic LP and she has to be on Dilaudid. REVIEW OF SYSTEMS A 12-point review of systems is negative except for what is stated in the HPI. PAST MEDICAL HISTORY 1. Pseudotumor cerebri 2. Renal stones, 3. Migraine headaches. PAST SURGICAL HISTORY 1. Multiple lumbar punctures 2. Renal stent placement on the left. MEDICATIONS 1. Potassium chloride 2. Diamox. 3. Topamax. 4. Meclizine. ALLERGIES SULFA AMOXICILLIN KETORALAC IBUPROFEN TRAMADOL LATEX PENICILLIN G FAMILY HISTORY Noncontributory SOCIAL HISTORY Smokes cigarettes approximately every three days, denies alcohol or illicit drugs. PHYSICAL EXAMINATION GENERAL: Awake, alert in mild distress due to pain and not pleased about the procedure and the future planning being unclear to her as she states. Overweight. HEENT: Atraumatic, normocephalic, blurred vision right eye greater than left eye. NECK: Supple. No signs of meningeal irritation. CARDIOVASCULAR: Regular rate and rhythm. RESPIRATORY: Clear to auscultation, no wheezes. GASTROINTESTINAL: Soft abdomen, nontender. MUSCULOSKELETAL: No clubbing, cyanosis or edema. NEUROLOGIC: Awake, alert, oriented to time, person and place. No dysarthria. No dysphasia. Cranial nerves II-XII with right eye blurred vision. No nystagmus. No diplopia. No facial asymmetry. Other cranial nerves are intact. Motor examination 5/5 bilateral symmetrical upper and lower extremity, normal tone. No abnormal movement. Sensation is intact throughout bilateral upper and lower extremities to light touch and pain, temperature. Reflexes 1+ bilateral symmetrical. Plantars are bilaterally downgoing. [id number] is intact. PSYCHIATRIC: Cooperative, anxious. No hallucinations. LABORATORY DATA White blood cells 14.9, hemoglobin 15.5, platelet 308.Sodium 139, potassium 3.6 , chloride 108, carbon dioxide 19.6, BUN 14, creatinine 0.65, calcium 9.3. - Lumbar puncture revealed normal cytology and chemistry with an opening pressure of 13.5 cm of water and closing pressure of 10 cm of water. 10 mL of clear CSF was collected for diagnosis. DIAGNOSTIC IMPRESSION 1. Pseudotumor cerebri. 2. Migraine headache. 3. Obesity. PLAN 1. Status post serial therapeutic lumbar punctures 2. The patient needs neurosurgical evaluation for possible SUPERANNUATION CLERK shunt placement. 3. Follows up with Dr. Haddad, her primary neurologist. He has referred her to [facility] and [facility]. No reply as of yet. 4. Topamax 100 mg twice daily 5. Diamox 500 mg three times daily. 6. Lasix 40 mg twice daily 7. Tylenol as needed. 8. DVT prophylaxis. 9. GI prophylaxis. 10. Follow up with Dr. Haddad as an outpatient. Please call for questions. Thank you for the opportunity to participate in the care of your patient. MD JAMES Dejesus/ /8:37 PM /9:47 PM [facility]
[2017-04-10] MEDS: acetaZOLAMIDE SEQUELS 500 MG SUSTAINED RELEASE CAP PO SCH (22:55)
[2017-04-11] MEDS: HYDROmorphone HCL PF 2 MG/ML VIAL IV PUSH PRN ×3 (00:13→09:08)
[2017-04-11 03:45] VITALS: BP 98/56; PULSE 62; RESP 18; TEMP 98.7; O2SAT 95
[2017-04-11] MEDS: acetaZOLAMIDE SEQUELS 500 MG SUSTAINED RELEASE CAP PO SCH (04:36)
[2017-04-11 07:38] VITALS: BP 105/57; PULSE 52; RESP 18; TEMP 97.7; O2SAT 97
[2017-04-11] MEDS ORDERED: POTA-163 PO (07:58)
[2017-04-11] MEDS ORDERED: ACETA500 PO (07:58)
[2017-04-11] MEDS ORDERED: FURO1TAB60 PO (07:58)
[2017-04-11] MEDS ORDERED: TOPA50TA7 PO (07:58)
[2017-04-11] MEDS: SODIUM CHLORIDE 0.9% FLUSH 10 ML FLUSH IV FLUSH SCH (09:06)
[2017-04-11] MEDS: TOPIRAMATE 100 MG TAB PO SCH (09:07)
[2017-04-11] MEDS: DOCUSATE SODIUM 50 MG/SENNA 8.6 MG TAB PO SCH (09:07)
[2017-04-11] MEDS: ONDANSETRON HCL 4 MG/2 ML VIAL IVP PRN (10:59)
[2017-04-11] MEDS ORDERED: NORC5TAB PO (11:20)
--- NOTE | 2017-04-11 12:10 | HHI.PR ---
Subjective Remarks Resting comfortably in bed No event overnight Denied chest and or short of breath No fever or chills Objective Vitals Vital Signs Date Time Temp Pulse Resp B/P (MAP) Pulse Ox O2 Delivery O2 Flow Rate FiO2 04/11/17 07:38 97.7 52 18 105/57 (73) 97 04/11/17 05:49 18 04/11/17 03:45 98.7 62 18 98/56 (70) 95 04/10/17 23:40 98.5 57 17 101/51 (68) 95 04/10/17 20:24 98.4 67 17 97/56 (70) 97 04/10/17 15:25 98.0 55 20 107/54 (71) 97 04/10/17 12:40 97.9 75 18 121/57 (78) 97 I/O 04/10/17 04/10/17 04/10/17 04/11/17 04/11/17 04/11/17 07:00 15:00 23:00 07:00 15:00 23:00 Intake Total 400 ml Output Total 200 ml Balance 200 ml Intake Oral 400 ml Output Urine Total 200 ml Result Diagram: 04/10/17 1315 04/10/17 1315 Objective Remarks GENERAL: Well-developed well-nourished obese female lying in bed. Awake and alert. SKIN: Cool and dry. LP site C/D/I. HEAD: Atraumatic. Normocephalic. EYES: Pupils equal round and reactive. Extraocular motions intact. No scleral icterus. No injection or drainage. ENT: Nose without bleeding or purulent drainage. Airway patent. NECK: Trachea midline. CARDIOVASCULAR: Regular rate and rhythm without murmurs, gallops, or rubs. RESPIRATORY: Clear to auscultation. Breath sounds equal bilaterally. No wheezes , rales, or rhonchi. GASTROINTESTINAL: Abdomen soft, non-tender, nondistended. No hepato-splenomegaly , or palpable masses. No guarding. MUSCULOSKELETAL: Extremities without clubbing, cyanosis, or edema. No joint tenderness, effusion, or edema noted. No calf tenderness. NEUROLOGICAL: Awake and alert. Cranial nerves II through XII grossly intact. Motor and sensory grossly within normal limits. No focal neurologic findings appreciated. Normal speech. A/P Assessment and Plan 32-year-old female with a past medical history significant for pseudotumor cerebri, neurologist is Dr. Haddad, presents to the emergency department for continued headache and right eye visual changes. 1. Pseudotumor cerebri s/p LP earlier today with decreased head and right eye pressure Tylenol prn headache Zofran prn nausea Consult neurology regular diet DVT prophylaxis bilateral SCD/MEME hose This note was transcribed by dagmar []. I, Dr. Shefali Ventura personally performed the history, physical exam, and medical decision making; and confirmed the accuracy of the information in the transcribed note. Authenticated by Dr. Shefali Ventura on 04/10/17 at 20:01. Discharge Planning Pending neurology clearance This note was transcribed by dagmar [ Melissa Smith ]. I, Dr. Shefali Ventura personally performed the history, physical exam, and medical decision making; and confirmed the accuracy of the information in the transcribed note. Authenticated by Dr. Ventura on 04/10/17 at 16:23. Shefali Ventura MD Apr 11, 2017 12:10
== END 2017-04-11 12:03 | disposition home or self-care (01) ==
LOC: NEPC 19:35 → NEDA 22:54 → NEPGCP 04-10 00:55
PROVIDERS: ADMIT Hospitalist; ATTEND Hospitalist
DX: G93.2 Benign intracranial hypertension (principal); J45.909 Unspecified asthma, uncomplicated; G43.909 Migraine, unspecified, not intractable, without status migrainosus; E66.9 Obesity, unspecified; F17.210 Nicotine dependence, cigarettes, uncomplicated; Z98.2 Presence of cerebrospinal fluid drainage device
CPT/HCPCS: 62270; 77003; 80048; 82945; 84157; 85025; 85610; 85730; 87015; 87070; 87102; 87116; 87205; 87206; 89051; 96374; 96375; 96376; 99285; G0378; J1170; J2060; J2405

== ENCOUNTER 2017-05-03 19:26 | Emergency (ER) | payer SELFPAY ==
[~2017-05-03] VITALS: Ht 154.9 cm; Wt 108.0 kg
[~2017-05-03 19:26] MED LIST changes: +NORC5TAB PO
[2017-05-03 19:27] VITALS: BP 136/76; PULSE 101; RESP 20; TEMP 98.5; O2SAT 100
--- NOTE | 2017-05-03 20:04 | PD ---
HPI Chief Complaint: Cold / Flu Symptoms Time Seen by Provider: 20:00 Travel History International Travel<30 days: No Contact w/Intl Traveler<30days: No Traveled to known affect area: No History of Present Illness HPI 32-year-old female with history of asthma presents to emergency department for evaluation of cough and chest congestion worsening over the last 3 days. Patient has had subjective fevers and chills. she has no significant pain.. Denies any nausea or vomiting. She has no other symptoms to report at this time. PFSH Past Medical History Hx Anticoagulant Therapy: No Asthma: Yes Blood Disorders: No Cancer: No Cardiovascular Problems: No Chemotherapy: No COPD: No Diabetes: No Diminished Hearing: No Endocrine: No Gastrointestinal Disorders: No Genitourinary: Yes (KIDNEY STONES) Headaches: Yes Immune Disorder: No Implanted Vascular Access Dvce: No Kidney Stones: Yes Musculoskeletal: No Neurologic: Yes (IDIOPATHIC INTERCRANIAL HYPERTENSION, PSUEDOTUMOR CEREBRI) Psychiatric: No Reproductive: Yes (7 MISCARRIAGES) Respiratory: Yes Immunizations Current: Yes Migraines: Yes Radiation Therapy: No Sleep Apnea: No Thyroid Disease: No LMP: 04/28/17 : 8 Para: 1 Miscarriage: 7 Dilation and Curettage (D&C): Yes (x3 ) Past Surgical History Section: Yes Cholecystectomy: Yes Genitourinary Surgery: Yes (STENTS KIDNEYS, LITHOTRIPSIES) Other Surgery: Yes (L KIDNEY (STENTS x 6) Social History Alcohol Use: No Tobacco Use: Yes (RARELY) Substance Use: No Allergies-Medications (Allergen,Severity, Reaction): Coded Allergies: Sulfa (Sulfonamide Antibiotics) (Unverified Allergy, Severe, RASH, ) amoxicillin (Unverified Allergy, Severe, Anaphylaxis, 04/09/17) ketorolac (Verified Allergy, Severe, Anaphylaxis, 04/09/17) anaphylaxis per patient ibuprofen (Unverified Allergy, Intermediate, HIVES, FACIAL SWELLING., ) tramadol (Unverified Allergy, Intermediate, HIVES, 04/09/17) hives, sewll up latex (Unverified Allergy, Unknown, 04/09/17) penicillin G (Unverified Allergy, Unknown, HIVES, 04/09/17) prochlorperazine (Unverified Allergy, Unknown, HIVES, 04/09/17) sumatriptan (Unverified Adverse Reaction, Severe, VOMITING PASSED OUT, ) Reported Meds & Prescriptions Reported Meds & Active Scripts Active Proair Hfa 8.5 GM Inh (Albuterol Sulfate) 90 Mcg/Act Aer 2 Puff INH Q4HR PRN 108 mcg/actuation Zithromax Z-Julio C (Azithromycin) 250 Mg Dspk 250 Mg PO DIRECTED 500 MG (2 tabs) day 1, then 1 tab days 2-5. Prednisone 50 Mg Tab 50 Mg PO DAILY 5 Days [place] (Hydrocodone-Acetaminophen) 5 Mg-325 Mg Tab 1 Tab PO Q6H PRN Potassium Chloride ER (Potassium Chloride) 20 Meq Tab 20 Meq PO DAILY Diamox Sequels ER 12 HR (Acetazolamide) 500 Mg Cap 500 Mg PO Q8HR 30 Days Lasix (Furosemide) 40 Mg Tab 40 Mg PO BID Topamax (Topiramate) 50 Mg Tab 100 Mg PO BID Reported Zofran (Ondansetron HCl) 4 Mg Tab 4 Mg PO Q12HR PRN Meclizine (Meclizine HCl) 25 Mg Tab 25 Mg PO DIRECTED PRN Review of Systems Except as stated in HPI: all other systems reviewed are Neg Physical Exam Narrative GENERAL: Well-nourished, well-developed female patient in no acute distress SKIN: Focused skin assessment warm/dry. HEAD: Normocephalic. EYES: No scleral icterus. No injection or drainage. NECK: Supple, trachea midline. No JVD or lymphadenopathy. CARDIOVASCULAR: Elevated rate and rhythm without murmurs, gallops, or rubs. RESPIRATORY: Breath sounds diminished, coarse equal bilaterally. No accessory muscle use. GASTROINTESTINAL: Abdomen soft, non-tender, nondistended. MUSCULOSKELETAL: No cyanosis, or edema. BACK: Nontender without obvious deformity. No CVA tenderness. Data Data Last Documented VS Vital Signs Date Time Temp Pulse Resp B/P (MAP) Pulse Ox O2 Delivery O2 Flow Rate FiO2 05/03/17 21:24 05/03/17 19:27 98.5 101 20 100 Room Air Orders Orders Influenzae A/B Antigen (05/03/17 20:03) Albuterol-Ipratropium Neb (Duoneb Neb) (05/03/17 20:15) Dexamethasone Inj (Decadron Inj) (05/03/17 20:15) Chest, Single Ap (05/03/17 ) Ed Discharge Order (05/03/17 21:12) [facility] Medical Decision Making Medical Screen Exam Complete: Yes Emergency Medical Condition: Yes Medical Record Reviewed: Yes Differential Diagnosis Bronchitis versus pneumonia versus influenza versus common cold Versus asthma exacerbation Narrative Course 32-year-old female with history of asthma presents emergency department for evaluation of cough and chest congestion. Patient was given DuoNeb treatment IM Decadron. She does have coarse respirations that are diminished in the bases. Chest x-ray is negative for acute cardiopulmonary disease. Despite this , due to patient's history of asthma, I'll start her on azithromycin Z-Julio C in addition to short course oral steroids and Pro Air inhaler. She is encouraged to follow-up with primary care provider and return immediately with any acute worsening symptoms. Diagnosis Primary Impression: Acute bronchitis Qualified Codes: J20.9 - Acute bronchitis, unspecified Referrals: Primary Care Physician Patient Instructions: Acute Bronchitis (ED), General Instructions Additional Instructions: Humidified air may help to alleviate symptoms Follow-up with a primary care provider Return immediately to the emergency department with any acute worsening of symptoms Med/Other Pt SpecificInfo: Prescription(s) given Scripts Albuterol 8.5 GM Inh (Proair Hfa 8.5 GM Inh) 90 Mcg/Act Aer 2 PUFF INH Q4HR Y for SHORTNESS OF BREATH, #1 INHALER 0 Refills 108 mcg/actuation Prov: Jovana Fonseca 05/03/17 Azithromycin (Zithromax Z-Julio C) 250 Mg Dspk 250 MG PO DIRECTED for Infection, #1 DSPK 0 Refills 500 MG (2 tabs) day 1, then 1 tab days 2-5. Prov: Jovana Fonseca 05/03/17 Prednisone (Prednisone) 50 Mg Tab 50 MG PO DAILY for 5 Days, #5 TAB 0 Refills Prov: Jovana Fonseca 05/03/17 Disposition: 01 DISCHARGE HOME Condition: Stable Jovana Fonseca May 03, 2017 20:04
[2017-05-03] MEDS ORDERED: RESP: ALBUTEROL 2.5 MG/IPRATROPIUM 0.5 MG NEB (SCH) NEB ONE (20:15)
[2017-05-03] MEDS ORDERED: DEXAMETHASONE SOD PHOS 4 MG/ML VIAL IM ONE (20:15)
--- NOTE | 2017-05-03 20:48 | RADRPT ---
EXAM DATE/TIME: 05/03/2017 20:18 [place] COMPARISON: No previous studies available for comparison. INDICATIONS : Cough, congestion started 2 days ago. MEDICAL HISTORY : History of pneumonia. SURGICAL HISTORY : section. ENCOUNTER: Initial ACUITY: 2 days PAIN SCORE: 0/10 LOCATION: Bilateral chest FINDINGS: A single view of the chest demonstrates the lungs to be symmetrically aerated without evidence of mas s, infiltrate or effusion. The cardiomediastinal contours are unremarkable. Osseous structures are intact. CONCLUSION: No acute disease. Desean Amyaa MD on May 03, 2017 at 20:45 Board Certified Radiologist. This report was verified electronically.
[2017-05-03] MEDS ORDERED: ALBUAER3 INH (21:15)
[2017-05-03] MEDS ORDERED: PRED50 PO (21:15)
[2017-05-03] MEDS ORDERED: ZITHTAB PO (21:15)
== END 2017-05-03 21:46 | disposition home or self-care (01) ==
LOC: NEPD 19:26
DX: J20.9 Acute bronchitis, unspecified (principal); J45.909 Unspecified asthma, uncomplicated; G93.2 Benign intracranial hypertension; Z87.442 Personal history of urinary calculi; Z72.0 Tobacco use; Z79.899 Other long term (current) drug therapy; Z88.2 Allergy status to sulfonamides; Z88.0 Allergy status to penicillin; Z88.6 Allergy status to analgesic agent
CPT/HCPCS: 71045; 87804; 94664; 96372; 99284; J1100

== ENCOUNTER 2017-05-13 16:56 | Emergency (ER) | payer SELFPAY ==
[~2017-05-13] VITALS: Ht 154.9 cm; Wt 115.9 kg
[~2017-05-13 16:56] MED LIST changes: +ALBUAER3 INH; +PRED50 PO; +ZITHTAB PO
[2017-05-13 16:58] VITALS: BP 141/99; PULSE 95; RESP 16; TEMP 97.8; O2SAT 97
[2017-05-13] MEDS ORDERED: ACETA500 PO (17:20)
[2017-05-13] MEDS ORDERED: FURO1TAB61 PO (17:20)
[2017-05-13] MEDS ORDERED: SODIUM CHLORIDE 0.9% FLUSH 10 ML FLUSH IV FLUSH PRN (17:30)
--- NOTE | 2017-05-13 17:40 | PD ---
HPI Chief Complaint: Flank/Kidney Pain Time Seen by Provider: 17:18 Travel History International Travel<30 days: No Contact w/Intl Traveler<30days: No Traveled to known affect area: No History of Present Illness HPI Patient is a 32-year-old female known to me from previous ER visits presents emergency department for evaluation of left flank pain radiating down her left groin for the past few hours. She states she has a history of kidney stones and stents in bilateral kidneys which have since been removed. She denies any fevers endorses some mild nausea without vomiting. States it feels like a kidney stone. Denies any vaginal bleeding vaginal discharge. States symptoms are severe, for the past few hours, context as above, location as above PFSH Past Medical History Hx Anticoagulant Therapy: No Asthma: Yes Blood Disorders: No Cancer: No Cardiovascular Problems: No Chemotherapy: No COPD: No Diabetes: No Diminished Hearing: No Endocrine: No Gastrointestinal Disorders: No Genitourinary: Yes (KIDNEY STONES) Headaches: Yes Immune Disorder: No Implanted Vascular Access Dvce: No Kidney Stones: Yes Musculoskeletal: No Neurologic: Yes (IDIOPATHIC INTERCRANIAL HYPERTENSION, PSUEDOTUMOR CEREBRI) Psychiatric: No Reproductive: Yes (7 MISCARRIAGES) Respiratory: Yes Immunizations Current: Yes Migraines: Yes Radiation Therapy: No Sleep Apnea: No Thyroid Disease: No Tetanus Vaccination: < 5 Years ?: Not LMP: apr 28 : 8 Para: 1 Miscarriage: 7 Dilation and Curettage (D&C): Yes (x3 ) Past Surgical History Section: Yes Cholecystectomy: Yes Genitourinary Surgery: Yes (STENTS KIDNEYS, LITHOTRIPSIES) Other Surgery: Yes (L KIDNEY (STENTS x 6) Social History Alcohol Use: No Tobacco Use: Yes (RARELY) Substance Use: No Allergies-Medications (Allergen,Severity, Reaction): Coded Allergies: Sulfa (Sulfonamide Antibiotics) (Unverified Allergy, Severe, RASH, 05/13/17 ) amoxicillin (Unverified Allergy, Severe, Anaphylaxis, 05/13/17) ketorolac (Verified Allergy, Severe, Anaphylaxis, 05/13/17) anaphylaxis per patient ibuprofen (Unverified Allergy, Intermediate, HIVES, FACIAL SWELLING., 05/13) tramadol (Unverified Allergy, Intermediate, HIVES, 05/13/17) hives, sewll up latex (Unverified Allergy, Unknown, 05/13/17) penicillin G (Unverified Allergy, Unknown, HIVES, 05/13/17) prochlorperazine (Unverified Allergy, Unknown, HIVES, 05/13/17) sumatriptan (Unverified Adverse Reaction, Severe, VOMITING PASSED OUT, ) Reported Meds & Prescriptions Reported Meds & Active Scripts Active Potassium Chloride ER (Potassium Chloride) 20 Meq Tab 20 Meq PO DAILY Topamax (Topiramate) 50 Mg Tab 100 Mg PO BID Reported Lasix (Furosemide) 80 Mg Tab 80 Mg PO DAILY Diamox Sequels ER 12 HR (Acetazolamide) 500 Mg Cap 500 Mg PO Q8HR Review of Systems Except as stated in HPI: all other systems reviewed are Neg Physical Exam Narrative GENERAL: Well-developed well-nourished, no obvious distress, morbidly obese. Patient appears quite comfortable lying in a stretcher in no obvious distress. SKIN: Focused skin assessment warm/dry. HEAD: Atraumatic. Normocephalic. EYES: Pupils equal and round. No scleral icterus. No injection or drainage. ENT: No nasal bleeding or discharge. Mucous membranes pink and moist. NECK: Trachea midline. No JVD. CARDIOVASCULAR: Regular rate and rhythm. No murmur appreciated. RESPIRATORY: No accessory muscle use. Clear to auscultation. Breath sounds equal bilaterally. GASTROINTESTINAL: Abdomen soft, non-tender, nondistended. Hepatic and splenic margins not palpable. No CVA tenderness. Abdomen completely benign. MUSCULOSKELETAL: No obvious deformities. No clubbing. No cyanosis. No edema. NEUROLOGICAL: Awake and alert. No obvious cranial nerve deficits. Motor grossly within normal limits. Normal speech. PSYCHIATRIC: Appropriate mood and affect; insight and judgment normal. Data Data Last Documented VS Vital Signs Date Time Temp Pulse Resp B/P (MAP) Pulse Ox O2 Delivery O2 Flow Rate FiO2 05/13/17 18:44 64 18 104/64 (77) 99 05/13/17 18:10 Room Air 05/13/17 16:58 97.8 Orders Orders Urinalysis - C+S If Indicated (05/13/17 17:10) Ed Urine Pregnancytest Poc (05/13/17 17:10) Complete Blood Count With Diff (05/13/17 17:19) Comprehensive Metabolic Panel (05/13/17 17:19) Lipase (1/16/18 17:19) Iv Access Insert/Monitor (05/13/17 17:19) Ecg Monitoring (05/13/17 17:19) Oximetry (05/13/17 17:19) Sodium Chloride 0.9% Flush (Ns Flush) (05/13/17 17:30) Ed Poc Ultrasound (05/13/17 ) Acetamin-Hydrocod 325-5 Mg ([place] 5-325 (05/13/17 18:00) Ondansetron Odt (Zofran Odt) (05/13/17 18:00) Ed Discharge Order (05/13/17 18:31) Labs Laboratory Tests Test 05/13/17 17:10 05/13/17 17:18 Urine Color YELLOW Urine Turbidity SLIGHT Urine pH 7.5 Urine Specific [place] 1.024 Urine Protein NEG mg/dL Urine Glucose (UA) NEG mg/dL Urine Ketones NEG mg/dL Urine Occult Blood NEG Urine Nitrite NEG Urine Bilirubin NEG Urine Leukocyte Esterase NEG Urine RBC 0-3 /hpf Urine WBC 0-2 /hpf Urine Squamous Epithelial Cells > 8 /hpf Urine Amorphous Sediment MOD Urine Bacteria OCC /hpf Microscopic Urinalysis Comment CULT NOT INDICATED White Blood Count 8.9 TH/MM3 Red Blood Count 4.59 MIL/MM3 Hemoglobin 12.7 GM/DL Hematocrit 38.0 % Mean Corpuscular Volume 82.8 FL Mean Corpuscular Hemoglobin 27.7 PG Mean Corpuscular Hemoglobin Concent 33.4 % Red Cell Distribution Width 12.7 % Platelet Count 293 TH/MM3 Mean Platelet Volume 8.2 FL Neutrophils (%) (Auto) 54.8 % Lymphocytes (%) (Auto) 33.4 % Monocytes (%) (Auto) 8.7 % Eosinophils (%) (Auto) 1.9 % Basophils (%) (Auto) 1.2 % Neutrophils # (Auto) 4.8 TH/MM3 Lymphocytes # (Auto) 3.0 TH/MM3 Monocytes # (Auto) 0.8 TH/MM3 Eosinophils # (Auto) 0.2 TH/MM3 Basophils # (Auto) 0.1 TH/MM3 CBC Comment DIFF FINAL Differential Comment Blood Urea Nitrogen 13 MG/DL Creatinine 0.61 MG/DL Random Glucose 92 MG/DL Total Protein 6.8 GM/DL Albumin 3.0 GM/DL Calcium Level 8.6 MG/DL Alkaline Phosphatase 71 U/L Aspartate Amino Transf (AST/SGOT) 29 U/L Alanine Aminotransferase (ALT/SGPT) 28 U/L Total Bilirubin 0.3 MG/DL Sodium Level 140 MEQ/L Potassium Level 4.3 MEQ/L Chloride Level 107 MEQ/L Carbon Dioxide Level 27.5 MEQ/L Anion Gap 6 MEQ/L Estimat Glomerular Filtration Rate 114 ML/MIN Lipase 101 U/L MDM Medical Decision Making Medical Screen Exam Complete: Yes Emergency Medical Condition: Yes Differential Diagnosis Kidney stone, UTI, pyelonephritis, acute abdomen unlikely. Possibility exists for somatizations disorder. Narrative Course Patient roomed in emergency department, she appears quite comfortable in no obvious distress. Bedside ultrasound showed no hydronephrosis. Her labs are completely benign, no signs of urinary tract infection. Patient requesting pain medication has allergies to multiple other medications including opiates like tramadol. She states that she did try Tylenol at home without any relief. Patient was given oral opiate and she states that she does have a ride home and she was dropped off here. The patient [employer] does show multiple prescriptions for hydrocodone for several different providers, the most recent was 04/24/2017 a prescription for 120 tablets which is a [address] Haddad. The patient was asked about her last narcotic pain medication and states it was over a month ago and states that it was before Ben. The patient was given oral dose of opiate here in the emergency department, I do not think that she has indication for opiate pain medication at this time but unfortunately given her multiple allergies this appears to be our only option. The patient was reassured by her negative workup in the emergency department, I do not see any indication for further workup and she has a benign abdomen and appears comfortable. She was instructed to keep her follow-up appointments with her regular physician as well as her neurologist for her chronic headaches (the patient is also allergic to prochlorperazine and sumatriptan). She is stable for discharge. Diagnosis Primary Impression: Renal colic on left side Additional Impression: Left flank pain Referrals: Alexis Kong DO Additional Instructions: Follow-up with Dr. Kong urologist, follow-up with your neurologist as scheduled Disposition: 01 DISCHARGE HOME Condition: Stable Farooq Mcdaniel MD May 13, 2017 17:40
[2017-05-13 17:55] LABS: BILIRUBIN, URINE NEG (NEG); BLOOD, URINE NEG (NEG); GLUCOSE,URINE NEG (NEG); KETONE, URINE NEG (NEG); NITRITE,URINE NEG (NEG); PH, URINE 7.5 (5.0-8.5); URINE LEUKOCYTE ESTERASE NEG (NEG)
[2017-05-13 17:59] LABS: AUTOMATED NEUTROPHIL # 4.8 TH/MM3 (1.8-7.7); BASOPHIL # 0.1 TH/MM3 (0-0.2); BASOPHIL % 1.2 % (0.0-2.0); EOSINOPHIL # 0.2 TH/MM3 (0-0.4); EOSINOPHIL % 1.9 % (0.0-4.0); HEMOGLOBIN 12.7 GM/DL (11.6-15.3); LYMPH % 33.4 % (9.0-44.0); MEAN CELL VOLUME 82.8 FL (80.0-100.0); MEAN CORPUSCULAR HEMOGLOBIN 27.7 PG (27.0-34.0); MEAN CORPUSCULAR HGB CONC 33.4 % (32.0-36.0); MEAN PLATELET VOLUME 8.2 FL (7.0-11.0); MONO % 8.7 % (0.0-8.0); MONOCYTE # 0.8 TH/MM3 (0-0.9); NEUT % 54.8 % (16.0-70.0); PLATELET COUNT 293 TH/MM3 (150-450); RED BLOOD COUNT 4.59 MIL/MM3 (4.00-5.30); RED CELL DISTRIBUTION WIDTH 12.7 % (11.6-17.2); WHITE BLOOD COUNT 8.9 TH/MM3 (4.0-11.0)
[2017-05-13] MEDS ORDERED: ACETAMINOPHEN/HYDROcodone 325 MG/5 MG TAB PO ONE (18:00)
[2017-05-13] MEDS ORDERED: ONDANSETRON ODT 4 MG TAB PO ONE (18:00)
[2017-05-13 18:08] LABS: CHLORIDE 107 MEQ/L (98-107); SODIUM (NA) 140 MEQ/L (136-145)
[2017-05-13 18:10] VITALS: BP 125/66; PULSE 72; RESP 16; O2SAT 98
[2017-05-13 18:11] LABS: CALCIUM 8.6 MG/DL (8.5-10.1)
[2017-05-13 18:12] LABS: BICARBONATE 27.5 MEQ/L (21.0-32.0); BLOOD UREA NITROGEN 13 MG/DL (7-18); GLUCOSE,RANDOM 92 MG/DL (74-106); LIPASE 101 U/L (73-393)
[2017-05-13 18:15] LABS: ALT (GPT) 28 U/L (10-53); AST (GOT) 29 U/L (15-37); CREATININE 0.61 MG/DL (0.50-1.00); GLOMERULAR FILTRATION RATE 114 ML/MIN (>89)
[2017-05-13 18:17] LABS: URINE COLOR YELLOW (YELLW/STRAW)
[2017-05-13 18:17] LABS: TOTAL BILIRUBIN ADULT 0.3 MG/DL (0.2-1.0); TOTAL PROTEIN 6.8 GM/DL (6.4-8.2)
[2017-05-13 18:18] LABS: AMORPHOUS SEDIMENT, URINE MOD; BACTERIA, URINE OCC /hpf; RBC, URINE 0-3 /hpf (0-3); SQUAMOUS EPITHELIAL CELL URINE > 8 /hpf (0-5); WBC, URINE 0-2 /hpf (0-5)
[2017-05-13 18:18] LABS: ALKALINE PHOSPHATASE 71 U/L (45-117)
[2017-05-13 18:44] VITALS: BP 104/64
== END 2017-05-13 18:54 | disposition home or self-care (01) ==
LOC: PHED 16:56
DX: N23 Unspecified renal colic (principal); J45.909 Unspecified asthma, uncomplicated; Z87.442 Personal history of urinary calculi
CPT/HCPCS: 80053; 81001; 83690; 84703; 85025; 99283

== ENCOUNTER 2017-06-05 12:27 | Emergency (ER) | payer SELFPAY ==
[~2017-06-05] VITALS: Ht 154.9 cm; Wt 110.0 kg
[~2017-06-05 12:27] MED LIST changes: -ALBUAER3 INH; +FURO1TAB61 PO; -NORC5TAB PO; -PRED50 PO; +TOPI100 PO; +TYLE325T PO; -ZITHTAB PO; -ZOFR4TAB PO
[2017-06-05 12:29] VITALS: BP 124/85; PULSE 104; RESP 14; TEMP 98.2; O2SAT 100
[2017-06-05 14:27] LABS: AMORPHOUS SEDIMENT, URINE MANY; BACTERIA, URINE OCC /hpf; BILIRUBIN, URINE NEG (NEG); BLOOD, URINE NEG (NEG); GLUCOSE,URINE NEG (NEG); KETONE, URINE NEG (NEG); MUCUS URINE FEW /lpf (OCC); NITRITE,URINE NEG (NEG); PH, URINE 7.5 (5.0-8.5); SQUAMOUS EPITHELIAL CELL URINE 5 /hpf (0-5); URINE COLOR YELLOW (YELLW/STRAW); URINE LEUKOCYTE ESTERASE TRACE (NEG)
[2017-06-05] MEDS ORDERED: traMADol HCL 50 MG TAB PO ONE (15:15)
--- NOTE | 2017-06-05 15:24 | PD ---
HPI Chief Complaint: Back/ Neck Pain or Injury Time Seen by Provider: 13:42 Travel History International Travel<30 days: No Contact w/Intl Traveler<30days: No Traveled to known affect area: No History of Present Illness HPI This is a 32-year-old female with history of chronic pain, chronic migraine headache that she follows up with Dr. Haddad neurology. She is here for lower back pain that has been going on for a while. She was given [place] and multiple opiate prescriptions, she is here for pain medicine since she is unable to get an appointment with Dr. Haddad. Upon review of the records patient was here multiple times for same issue and was previously diagnosed with opiate dependence and was explained to the patient that she needs to follow-up with neurology and instead of coming to the ER. Patient denies any trauma, no fall, no fever, no local tenderness, nor any neurological symptoms. I explained to the patient why we would not be able to give her pain medications in the ER here since she is allergic to many NSAIDs, patient now states that she is not allergic to tramadol and she does not get any reaction from it. Patient was given 1 dose of tramadol and was encouraged to follow-up with Dr. Haddad neurology so that he can better address her chronic pain. PFSH Past Medical History Hx Anticoagulant Therapy: No Asthma: Yes Blood Disorders: No Cancer: No Cardiovascular Problems: No Chemotherapy: No COPD: No Diabetes: No Diminished Hearing: No Endocrine: No Gastrointestinal Disorders: No Genitourinary: Yes (KIDNEY STONES) Headaches: Yes Hypertension: Yes (Idiopathic intracranial hypertension) Immune Disorder: No Implanted Vascular Access Dvce: No Kidney Stones: Yes Musculoskeletal: No Neurologic: Yes Psychiatric: No Reproductive: Yes (7 MISCARRIAGES) Respiratory: Yes Immunizations Current: Yes Migraines: Yes Radiation Therapy: No Sleep Apnea: No Thyroid Disease: No ?: Not : 8 Para: 1 Miscarriage: 7 Dilation and Curettage (D&C): Yes (x3 ) Past Surgical History Section: Yes Cholecystectomy: Yes Genitourinary Surgery: Yes (STENTS KIDNEYS, LITHOTRIPSIES) Hysterectomy: Yes Other Surgery: Yes (L KIDNEY (STENTS x 6) Social History Alcohol Use: No Tobacco Use: Yes (1 cigarette ) Substance Use: No Allergies-Medications (Allergen,Severity, Reaction): Coded Allergies: Sulfa (Sulfonamide Antibiotics) (Unverified Allergy, Severe, RASH, 2/8/18) amoxicillin (Unverified Allergy, Severe, Anaphylaxis, 06/05/17) ketorolac (Verified Allergy, Severe, Anaphylaxis, 06/05/17) anaphylaxis per patient ibuprofen (Unverified Allergy, Intermediate, HIVES, FACIAL SWELLING., ) tramadol (Unverified Allergy, Intermediate, HIVES, 06/05/17) hives, sewll up latex (Unverified Allergy, Unknown, 06/05/17) penicillin G (Unverified Allergy, Unknown, HIVES, 06/05/17) prochlorperazine (Unverified Allergy, Unknown, HIVES, 06/05/17) sumatriptan (Unverified Adverse Reaction, Severe, VOMITING PASSED OUT, 06/05) Reported Meds & Prescriptions Reported Meds & Active Scripts Active Potassium Chloride ER (Potassium Chloride) 20 Meq Tab 20 Meq PO DAILY Topamax (Topiramate) 50 Mg Tab 100 Mg PO BID Tylenol (Acetaminophen) 325 Mg Tab 650 Mg PO Q6H PRN Reported Lasix (Furosemide) 80 Mg Tab 80 Mg PO DAILY Diamox Sequels ER 12 HR (Acetazolamide) 500 Mg Cap 500 Mg PO Q8HR Meclizine (Meclizine HCl) 25 Mg Tab 25 Mg PO TID PRN Lasix (Furosemide) 40 Mg Tab 40 Mg PO BID Topamax (Topiramate) 100 Mg Tab 100 Mg PO BID Diamox Sequels ER 12 HR (Acetazolamide) 500 Mg Cap 500 Mg PO TID Physical Exam Narrative GENERAL: No acute distress SKIN: Focused skin assessment warm/dry. HEAD: Atraumatic. Normocephalic. EYES: Pupils equal and round. No scleral icterus. No injection or drainage. ENT: No nasal bleeding or discharge. Mucous membranes pink and moist. NECK: Trachea midline. CARDIOVASCULAR: Regular rate and rhythm. No murmur appreciated. RESPIRATORY: No accessory muscle use. Clear to auscultation. Breath sounds equal bilaterally. GASTROINTESTINAL: Abdomen soft, non-tender, nondistended. MUSCULOSKELETAL: No local tenderness over the spine, no skin changes, no neurological symptoms, straight leg exam negative no obvious deformities. No clubbing. No edema. NEUROLOGICAL: Awake and alert. No obvious cranial nerve deficits. Motor grossly within normal limits. Normal speech. PSYCHIATRIC: Appropriate mood and affect; insight and judgment normal. Data Data Last Documented VS Vital Signs Date Time Temp Pulse Resp B/P (MAP) Pulse Ox O2 Delivery O2 Flow Rate FiO2 06/05/17 12:29 98.2 104 14 124/85 (98) 100 Orders Orders Urinalysis - C+S If Indicated (06/05/17 12:57) Ed Urine Pregnancytest Poc (06/05/17 12:57) Spine, Lumbar - Lateral Only (06/05/17 ) Tramadol (Ultram) (06/05/17 15:15) Labs Laboratory Tests Test 06/05/17 13:50 Urine Color YELLOW Urine Turbidity CLOUDY Urine pH 7.5 Urine Specific [place] 1.020 Urine Protein TRACE mg/dL Urine Glucose (UA) NEG mg/dL Urine Ketones NEG mg/dL Urine Occult Blood NEG Urine Nitrite NEG Urine Bilirubin NEG Urine Urobilinogen 2.0 MG/DL Urine Leukocyte Esterase TRACE Urine RBC LESS THAN 1 /hpf Urine WBC 3 /hpf Urine Squamous Epithelial Cells 5 /hpf Urine Amorphous Sediment MANY Urine Bacteria OCC /hpf Urine Mucus FEW /lpf Microscopic Urinalysis Comment CULT NOT INDICATED MDM Medical Decision Making Medical Screen Exam Complete: Yes Emergency Medical Condition: Yes Medical Record Reviewed: Yes Differential Diagnosis Chronic lower pain, opiate dependence, chronic headache. Narrative Course Patient is 32-year-old female with history of chronic lower back pain and opiate dependence. There is no signs or acute physical finding that can be attributed to the patient's pain. Patient was unhappy when we told her that we will not be able to give her pain medications. I reviewed the medical records and patient was given multiple narcotics prescriptions patient now says that she is not allergic to tramadol and she can take it with no problems. Patient was given 1 dose of tramadol and was encouraged to follow-up with Dr. Haddad in neurology. Referral was given and the plan of care was explained to the patient and she agrees. Diagnosis Primary Impression: Lower back pain Referrals: Antonio Haddad MD PhD Patient Instructions: General Instructions Additional Instructions: Please follow-up with Dr. Haddad. Return to ER if symptoms change or do not improve. Disposition: 01 DISCHARGE HOME Condition: Stable Nirav Chauhan MD Jun 05, 2017 15:24
== END 2017-06-05 15:49 | disposition home or self-care (01) ==
LOC: NEPD 12:27
DX: M54.5 Low back pain (principal); G89.29 Other chronic pain
CPT/HCPCS: 81001; 84703; 99283

== ENCOUNTER 2017-07-10 16:27 | Emergency (ER) | payer SELFPAY ==
[~2017-07-10] VITALS: Ht 154.9 cm; Wt 109.0 kg
[2017-07-10 16:49] VITALS: BP 133/73; PULSE 95; RESP 16; TEMP 98.6; O2SAT 97
[2017-07-10] MEDS ORDERED: REGL10TA5 PO (17:11)
[2017-07-10] MEDS ORDERED: ONDANSETRON HCL 4 MG/2 ML VIAL IV PUSH ONE ×2 (17:30→18:45)
--- NOTE | 2017-07-10 17:42 | PD ---
HPI Chief Complaint: Neuro Symptoms/ Deficits Time Seen by Provider: 17:09 Travel History International Travel<30 days: No Contact w/Intl Traveler<30days: No Traveled to known affect area: No History of Present Illness HPI 32yo F with PMH of idiopathic intracranial hypertension, migraine headache here with c/o headache for 1.5 hours. Said it is associated with blurry vision in both eyes. Had this before and normally needs LP by IR. Pt follows with Dr. Haddad and is on topamax, diomax and lasix. Denies any fever, chest pain, sob, vomiting, abdominal pain, focal weakness or numbness. Said she has had multiple LPs and has scar tissue and can only be done by IR. Pt was last admitted 03/2017 for this and had normal opening pressure. PFSH Past Medical History Hx Anticoagulant Therapy: No Asthma: Yes Blood Disorders: No Cancer: No Cardiovascular Problems: No Chemotherapy: No COPD: No Diabetes: No Diminished Hearing: No Endocrine: No Gastrointestinal Disorders: No Genitourinary: Yes (KIDNEY STONES) Headaches: Yes Hypertension: Yes (Idiopathic intracranial hypertension) Immune Disorder: No Implanted Vascular Access Dvce: No Kidney Stones: Yes Musculoskeletal: No Neurologic: Yes Psychiatric: No Reproductive: Yes (7 MISCARRIAGES) Respiratory: Yes Immunizations Current: Yes Migraines: Yes Radiation Therapy: No Sleep Apnea: No Thyroid Disease: No Tetanus Vaccination: < 5 Years Influenza Vaccination: No ?: Unknown LMP: 06/30/17 : 8 Para: 1 Miscarriage: 7 Dilation and Curettage (D&C): Yes (x3 ) Past Surgical History Section: Yes Cholecystectomy: Yes Genitourinary Surgery: Yes (STENTS KIDNEYS, LITHOTRIPSIES) Hysterectomy: Yes Other Surgery: Yes (L KIDNEY (STENTS x 6) Social History Alcohol Use: No Tobacco Use: Yes (1 cigarette ) Substance Use: No Allergies-Medications (Allergen,Severity, Reaction): Coded Allergies: Sulfa (Sulfonamide Antibiotics) (Unverified Allergy, Severe, RASH, 07/10/17 ) amoxicillin (Unverified Allergy, Severe, Anaphylaxis, 07/10/17) ketorolac (Verified Allergy, Severe, Anaphylaxis, 07/10/17) anaphylaxis per patient ibuprofen (Unverified Allergy, Intermediate, HIVES, FACIAL SWELLING., 07/10) tramadol (Unverified Allergy, Intermediate, HIVES, 07/10/17) hives, sewll up latex (Unverified Allergy, Unknown, 07/10/17) penicillin G (Unverified Allergy, Unknown, HIVES, 07/10/17) prochlorperazine (Unverified Allergy, Unknown, HIVES, 07/10/17) sumatriptan (Unverified Adverse Reaction, Severe, VOMITING PASSED OUT, ) Reported Meds & Prescriptions Reported Meds & Active Scripts Active Tylenol (Acetaminophen) 325 Mg Tab 650 Mg PO Q6H PRN Potassium Chloride ER (Potassium Chloride) 20 Meq Tab 20 Meq PO DAILY Topamax (Topiramate) 50 Mg Tab 100 Mg PO BID Reported Reglan (Metoclopramide HCl) 10 Mg Tab 10 Mg PO QID Meclizine (Meclizine HCl) 25 Mg Tab 25 Mg PO TID PRN Lasix (Furosemide) 40 Mg Tab 40 Mg PO BID Diamox Sequels ER 12 HR (Acetazolamide) 500 Mg Cap 500 Mg PO TID Review of Systems Except as stated in HPI: all other systems reviewed are Neg Physical Exam Narrative GENERAL: 32yo F SKIN: Focused skin assessment warm/dry. HEAD: Atraumatic. Normocephalic. EYES: Pupils equal and round. No scleral icterus. No injection or drainage. ENT: No nasal bleeding or discharge. Mucous membranes pink and moist. NECK: Trachea midline. No JVD. CARDIOVASCULAR: Regular rate and rhythm. No murmur appreciated. RESPIRATORY: No accessory muscle use. Clear to auscultation. Breath sounds equal bilaterally. GASTROINTESTINAL: Abdomen soft, non-tender, nondistended. Hepatic and splenic margins not palpable. MUSCULOSKELETAL: No obvious deformities. No clubbing. No cyanosis. No edema. NEUROLOGICAL: Awake and alert. No obvious cranial nerve deficits. Motor grossly within normal limits in all extremities. Sensation equal. Normal speech. PSYCHIATRIC: Appropriate mood and affect; insight and judgment normal. Data Data Last Documented VS Vital Signs Date Time Temp Pulse Resp B/P (MAP) Pulse Ox O2 Delivery O2 Flow Rate FiO2 07/10/17 19:41 07/10/17 19:10 72 16 99 Room Air 07/10/17 16:[address] Brain W/O Iv Contrast(Rout) (07/10/17 ) Complete Blood Count With Diff (07/10/17 17:29) Basic Metabolic Panel (Bmp) (07/10/17 17:29) Prothrombin Time / Inr (Pt) (07/10/17 17:29) Act Partial Throm Time (Ptt) (07/10/17 17:29) Ondansetron Inj (Zofran Inj) (07/10/17 17:30) Metoclopramide Inj (Reglan Inj) (07/10/17 18:15) Morphine Inj (Morphine Inj) (07/10/17 18:15) Ondansetron Inj (Zofran Inj) (07/10/17 18:45) Ed Discharge Order (07/10/17 19:19) Diazepam (Valium) (07/10/17 19:30) Labs Laboratory Tests Test 07/10/17 17:55 White Blood Count 10.4 TH/MM3 Red Blood Count 4.52 MIL/MM3 Hemoglobin 13.2 GM/DL Hematocrit 37.4 % Mean Corpuscular Volume 82.7 FL Mean Corpuscular Hemoglobin 29.1 PG Mean Corpuscular Hemoglobin Concent 35.2 % Red Cell Distribution Width 13.5 % Platelet Count 296 TH/MM3 Mean Platelet Volume 7.4 FL Neutrophils (%) (Auto) 57.5 % Lymphocytes (%) (Auto) 34.1 % Monocytes (%) (Auto) 6.6 % Eosinophils (%) (Auto) 1.1 % Basophils (%) (Auto) 0.7 % Neutrophils # (Auto) 6.0 TH/MM3 Lymphocytes # (Auto) 3.5 TH/MM3 Monocytes # (Auto) 0.7 TH/MM3 Eosinophils # (Auto) 0.1 TH/MM3 Basophils # (Auto) 0.1 TH/MM3 CBC Comment DIFF FINAL Differential Comment Prothrombin Time 10.7 SEC Prothromb Time International Ratio 1.1 RATIO Activated Partial Thromboplast Time 26.8 SEC Blood Urea Nitrogen 8 MG/DL Creatinine 0.57 MG/DL Random Glucose 108 MG/DL Calcium Level 8.9 MG/DL Sodium Level 141 MEQ/L Potassium Level 4.0 MEQ/L Chloride Level 104 MEQ/L Carbon Dioxide Level 28.9 MEQ/L Anion Gap 8 MEQ/L Estimat Glomerular Filtration Rate 123 ML/MIN MDM Medical Decision Making Medical Screen Exam Complete: Yes Emergency Medical Condition: Yes Differential Diagnosis Idiopathic intracranial hypertension vs. migraine headache vs. malingering Narrative Course 32yo F with headache that started 1.5 hours ago. Said she couldnt see Dr. Haddad because the office is close. Pt said only morphine and zofran works so it was ordered. CT brain order to evaluate the ventricle size. Labs reviewed, no leukocytosis. BMP unremarkable. CT brain negative. Pt given morphine, valium and zofran which is what she said works for her. Pt reevaluated at bedside and said headache has improved. I discussed observation for IR LP versus follow up with Dr. Haddad tomorrow and she prefers following up with Dr. Haddad tomorrow. Strict return precautions given. Diagnosis Primary Impression: Headache Qualified Codes: R51 - Headache Patient Instructions: General Instructions Departure Forms: Tests/Procedures Additional Instructions: Please follow up with Dr. Haddad tomorrow and return to the ED if symptoms worsen. Please continue to take your medications. Med/Other Pt SpecificInfo: No Change to Meds Disposition: 01 DISCHARGE HOME Condition: Stable Sari Marquez DO Jul 10, 2017 17:42
[2017-07-10 18:04] LABS: BASOPHIL # 0.1 TH/MM3 (0-0.2); BASOPHIL % 0.7 % (0.0-2.0); EOSINOPHIL # 0.1 TH/MM3 (0-0.4); EOSINOPHIL % 1.1 % (0.0-4.0); HEMATOCRIT 37.4 % (35.0-46.0); HEMOGLOBIN 13.2 GM/DL (11.6-15.3); LYMPH % 34.1 % (9.0-44.0); LYMPHOCYTE # 3.5 TH/MM3 (1.0-4.8); MEAN CELL VOLUME 82.7 FL (80.0-100.0); MEAN CORPUSCULAR HEMOGLOBIN 29.1 PG (27.0-34.0); MEAN CORPUSCULAR HGB CONC 35.2 % (32.0-36.0); MEAN PLATELET VOLUME 7.4 FL (7.0-11.0); MONO % 6.6 % (0.0-8.0); MONOCYTE # 0.7 TH/MM3 (0-0.9); NEUT % 57.5 % (16.0-70.0); PLATELET COUNT 296 TH/MM3 (150-450); RED BLOOD COUNT 4.52 MIL/MM3 (4.00-5.30); RED CELL DISTRIBUTION WIDTH 13.5 % (11.6-17.2); WHITE BLOOD COUNT 10.4 TH/MM3 (4.0-11.0)
[2017-07-10 18:15] LABS: INTERNATIONAL NORMALIZED RATIO 1.1 RATIO; PROTHROMBIN TIME - PATIENT 10.7 SEC (9.8-11.6)
[2017-07-10] MEDS ORDERED: METOCLOPRAMIDE INJ 10 MG in SODIUM CHLORIDE 0.9% INJ 50 ML IV ONE (18:15)
[2017-07-10] MEDS ORDERED: MORPHINE SULFATE 4 MG/ML INJ IV PUSH ONE (18:15)
[2017-07-10 18:20] LABS: BICARBONATE 28.9 MEQ/L (21.0-32.0); CALCIUM 8.9 MG/DL (8.5-10.1); CREATININE 0.57 MG/DL (0.50-1.00)
--- NOTE | 2017-07-10 18:45 | RADRPT ---
EXAM DATE/TIME: 07/10/2017 18:32 [facility] COMPARISON: No previous studies available for comparison. INDICATIONS : Cephalgia. RADIATION DOSE: 36.42 CTDIvol (mGy) MEDICAL HISTORY : Hypertension. SURGICAL HISTORY : None. ENCOUNTER: Initial ACUITY: 1 day PAIN SCALE: 5/10 LOCATION: cranial TECHNIQUE: Multiple contiguous axial images were obtained of the head. Using automated exposure control and adj ustment of the mA and/or kV according to patient size, radiation dose was kept as low as reasonably a chievable to obtain optimal diagnostic quality images. DICOM format image data is available electro nically for review and comparison. FINDINGS: CEREBRUM: The ventricles are normal for age. No evidence of midline shift, mass lesion, hemorrhage or acute in farction. No extra-axial fluid collections are seen. POSTERIOR FOSSA: The cerebellum and brainstem are intact. The 4th ventricle is midline. The cerebellopontine angle i s unremarkable. EXTRACRANIAL: The visualized portion of the orbits is intact. SKULL: The calvaria is intact. No evidence of skull fracture. CONCLUSION: Negative noncontrast head CT. Wallace Manuel MD on July 10, 2017 at 18:43 Board Certified Radiologist. This report was verified electronically.
[2017-07-10 19:04] VITALS: BP 146/77; PULSE 146; RESP 20; O2SAT 98
[2017-07-10 19:10] VITALS: BP 121/84; PULSE 72; RESP 16; O2SAT 99
[2017-07-10] MEDS ORDERED: DIAZEPAM 5 MG TAB PO ONE (19:30)
== END 2017-07-10 19:42 | disposition home or self-care (01) ==
LOC: NEPC 16:27
DX: R51 Headache (principal); G93.2 Benign intracranial hypertension; J45.909 Unspecified asthma, uncomplicated; F17.210 Nicotine dependence, cigarettes, uncomplicated; Z79.899 Other long term (current) drug therapy; Z88.2 Allergy status to sulfonamides; Z88.0 Allergy status to penicillin; Z88.6 Allergy status to analgesic agent; Z87.442 Personal history of urinary calculi
CPT/HCPCS: 70450; 80048; 85025; 85610; 85730; 96374; 96375; 99284; J2270; J2405

== ENCOUNTER 2017-07-11 16:01 | Inpatient (IN) | payer SELFPAY ==
[~2017-07-11] VITALS: Ht 154.9 cm; Wt 109.3 kg
[~2017-07-11 16:01] MED LIST changes: -FURO1TAB61 PO; +REGL10TA5 PO; -TOPI100 PO
[2017-07-11 16:20] VITALS: BP 129/77; PULSE 85; RESP 18; TEMP 98.8; O2SAT 94
[2017-07-11] MEDS ORDERED: METOCLOPRAMIDE INJ 10 MG in SODIUM CHLORIDE 0.9% INJ 50 ML IV ONE (20:45)
[2017-07-11] MEDS ORDERED: diphenhydrAMINE HCL 50 MG/ML VIAL IV PUSH ONE (20:45)
[2017-07-11] MEDS ORDERED: MORPHINE SULFATE 4 MG/ML INJ IV PUSH ONE ×2 (20:45→22:15)
[2017-07-11 21:46] LABS: AUTOMATED NEUTROPHIL # 7.1 TH/MM3 (1.8-7.7); BASOPHIL # 0.1 TH/MM3 (0-0.2); BASOPHIL % 0.5 % (0.0-2.0); EOSINOPHIL # 0.2 TH/MM3 (0-0.4); EOSINOPHIL % 1.5 % (0.0-4.0); HEMATOCRIT 38.4 % (35.0-46.0); HEMOGLOBIN 12.7 GM/DL (11.6-15.3); LYMPH % 34.3 % (9.0-44.0); LYMPHOCYTE # 4.3 TH/MM3 (1.0-4.8); MEAN CELL VOLUME 82.6 FL (80.0-100.0); MEAN CORPUSCULAR HEMOGLOBIN 27.4 PG (27.0-34.0); MEAN CORPUSCULAR HGB CONC 33.2 % (32.0-36.0); MEAN PLATELET VOLUME 7.6 FL (7.0-11.0); MONO % 6.6 % (0.0-8.0); MONOCYTE # 0.8 TH/MM3 (0-0.9); NEUT % 57.1 % (16.0-70.0); PLATELET COUNT 319 TH/MM3 (150-450); RED BLOOD COUNT 4.65 MIL/MM3 (4.00-5.30); RED CELL DISTRIBUTION WIDTH 13.5 % (11.6-17.2); WHITE BLOOD COUNT 12.4 TH/MM3 (4.0-11.0)
[2017-07-11] MEDS ORDERED: DIAZEPAM 10 MG TAB PO ONE (22:15)
[2017-07-11] MEDS ORDERED: ONDANSETRON HCL 4 MG/2 ML VIAL IV PUSH ONE (22:15)
[2017-07-11 22:19] LABS: ALBUMIN 3.8 GM/DL (3.4-5.0); ALT (GPT) 30 U/L (10-53); AST (GOT) 16 U/L (15-37); BLOOD UREA NITROGEN 15 MG/DL (7-18); CHLORIDE 104 MEQ/L (98-107); CREATININE 0.64 MG/DL (0.50-1.00); GLOMERULAR FILTRATION RATE 108 ML/MIN (>89); GLUCOSE,RANDOM 91 MG/DL (74-106); SODIUM (NA) 141 MEQ/L (136-145)
[2017-07-11 22:20] LABS: ALKALINE PHOSPHATASE 77 U/L (45-117); TOTAL BILIRUBIN ADULT 0.4 MG/DL (0.2-1.0); TOTAL PROTEIN 7.9 GM/DL (6.4-8.2)
[2017-07-11 22:22] VITALS: BP 108/55; PULSE 69; RESP 18; O2SAT 97
--- NOTE | 2017-07-11 23:19 | PD ---
HPI Chief Complaint: Headache Time Seen by Provider: 20:21 Travel History International Travel<30 days: No Contact w/Intl Traveler<30days: No Traveled to known affect area: No History of Present Illness HPI Patient is a 32 year old female who history of pseudotumor cerebri requiring frequent lumbar punctures, who comes in complaining of severe headache and blurred vision. She was here yesterday, but elected to go home and try and follow up with Dr. Haddad. She says that his office was closed today, so she was unable to. She says she has to have Lumbar punctures performed by IR due to a large amount of scar tissue from previous LP's. She says that her symptoms are typical of her headaches. She has tried taking her home medications without relief. She has spoken with a neurosurgeon about a HEARTH FEEDER shunt , but is not sure she wants to do this. She denies fever or chills. She denies any head injury. Severity is moderate. PFSH Past Medical History Hx Anticoagulant Therapy: No Asthma: Yes Blood Disorders: No Cancer: No Cardiovascular Problems: No Chemotherapy: No COPD: No Diabetes: No Patient Takes Glucophage: No Diminished Hearing: No Endocrine: No Gastrointestinal Disorders: No Genitourinary: Yes (KIDNEY STONES) Headaches: Yes Hypertension: Yes (Idiopathic intracranial hypertension) Immune Disorder: No Implanted Vascular Access Dvce: No Kidney Stones: Yes Musculoskeletal: No Neurologic: Yes Psychiatric: No Reproductive: Yes (7 MISCARRIAGES) Respiratory: Yes Immunizations Current: Yes Migraines: Yes Radiation Therapy: No Sleep Apnea: No Thyroid Disease: No Tetanus Vaccination: < 5 Years Influenza Vaccination: No ?: Not LMP: 06/30/17 : 8 Para: 1 Miscarriage: 7 Dilation and Curettage (D&C): Yes (x3 ) Past Surgical History Section: Yes Cholecystectomy: Yes Genitourinary Surgery: Yes (STENTS KIDNEYS, LITHOTRIPSIES) Hysterectomy: Yes Other Surgery: Yes (L KIDNEY (STENTS x 6) Social History Alcohol Use: No Tobacco Use: Yes (1 cigarette ) Substance Use: No Allergies-Medications (Allergen,Severity, Reaction): Coded Allergies: Sulfa (Sulfonamide Antibiotics) (Unverified Allergy, Severe, RASH, 07/10/17 ) amoxicillin (Unverified Allergy, Severe, Anaphylaxis, 07/10/17) ketorolac (Verified Allergy, Severe, Anaphylaxis, 07/10/17) anaphylaxis per patient ibuprofen (Unverified Allergy, Intermediate, HIVES, FACIAL SWELLING., 07/10) tramadol (Unverified Allergy, Intermediate, HIVES, 07/10/17) hives, sewll up latex (Unverified Allergy, Unknown, 07/10/17) penicillin G (Unverified Allergy, Unknown, HIVES, 07/10/17) prochlorperazine (Unverified Allergy, Unknown, HIVES, 07/10/17) sumatriptan (Unverified Adverse Reaction, Severe, VOMITING PASSED OUT, ) Reported Meds & Prescriptions Reported Meds & Active Scripts Active Potassium Chloride ER (Potassium Chloride) 20 Meq Tab 20 Meq PO DAILY Topamax (Topiramate) 50 Mg Tab 100 Mg PO BID Reported Reglan (Metoclopramide HCl) 10 Mg Tab 10 Mg PO QID Meclizine (Meclizine HCl) 25 Mg Tab 25 Mg PO TID PRN Lasix (Furosemide) 40 Mg Tab 40 Mg PO BID Diamox Sequels ER 12 HR (Acetazolamide) 500 Mg Cap 500 Mg PO TID Review of Systems Except as stated in HPI: all other systems reviewed are Neg General / Constitutional: No: Fever, Chills Eyes: Positive: Blurred Vision HENT: Positive: Headaches Cardiovascular: No: Chest Pain or Discomfort Respiratory: No: Shortness of Breath Gastrointestinal: Positive: Nausea, No: Vomiting Genitourinary: No: Dysuria Musculoskeletal: No: Myalgias, Edema Skin: No Rash, No Change in Pigmentation Neurologic: No: Weakness, Dizziness Physical Exam Narrative GENERAL: Awake and alert, in no acute distress. SKIN: Focused skin assessment warm/dry. No wounds or signs of infection. HEAD: Atraumatic. Normocephalic. EYES: Pupils large, but equal and round and reactive. No scleral icterus. EOMI. ENT: Mucous membranes pink and moist. NECK: Trachea midline. No JVD. CARDIOVASCULAR: Regular rate and rhythm. No murmur appreciated. RESPIRATORY: No accessory muscle use. Clear to auscultation. Breath sounds equal bilaterally. GASTROINTESTINAL: Abdomen soft, non-tender, nondistended. MUSCULOSKELETAL: No obvious deformities. No clubbing. No cyanosis. No edema. NEUROLOGICAL: Awake and alert. No obvious cranial nerve deficits. Motor grossly within normal limits. Normal speech. PSYCHIATRIC: Appropriate mood and affect; insight and judgment normal. Data Data Last Documented VS Vital Signs Date Time Temp Pulse Resp B/P (MAP) Pulse Ox O2 Delivery O2 Flow Rate FiO2 07/11/17 22:22 69 18 108/55 (72) 97 07/11/17 16:20 98.8 Orders Orders Iv Access Insert/Monitor (07/11/17 20:31) Complete Blood Count With Diff (07/11/17 20:31) Comprehensive Metabolic Panel (07/11/17 20:31) Act Partial Throm Time (Ptt) (07/11/17 20:31) Prothrombin Time / Inr (Pt) (07/11/17 20:31) Diphenhydramine Inj (Benadryl Inj) (07/11/17 20:45) Metoclopramide Inj (Reglan Inj) (07/11/17 20:45) Morphine Inj (Morphine Inj) (07/11/17 20:45) Morphine Inj (Morphine Inj) (07/11/17 22:15) Ondansetron Inj (Zofran Inj) (07/11/17 22:15) Diazepam (Valium) (07/11/17 22:15) Labs Laboratory Tests Test 07/11/17 21:19 White Blood Count 12.4 TH/MM3 Red Blood Count 4.65 MIL/MM3 Hemoglobin 12.7 GM/DL Hematocrit 38.4 % Mean Corpuscular Volume 82.6 FL Mean Corpuscular Hemoglobin 27.4 PG Mean Corpuscular Hemoglobin Concent 33.2 % Red Cell Distribution Width 13.5 % Platelet Count 319 TH/MM3 Mean Platelet Volume 7.6 FL Neutrophils (%) (Auto) 57.1 % Lymphocytes (%) (Auto) 34.3 % Monocytes (%) (Auto) 6.6 % Eosinophils (%) (Auto) 1.5 % Basophils (%) (Auto) 0.5 % Neutrophils # (Auto) 7.1 TH/MM3 Lymphocytes # (Auto) 4.3 TH/MM3 Monocytes # (Auto) 0.8 TH/MM3 Eosinophils # (Auto) 0.2 TH/MM3 Basophils # (Auto) 0.1 TH/MM3 CBC Comment DIFF FINAL Differential Comment Prothrombin Time 10.0 SEC Prothromb Time International Ratio 1.0 RATIO Activated Partial Thromboplast Time 25.3 SEC Blood Urea Nitrogen 15 MG/DL Creatinine 0.64 MG/DL Random Glucose 91 MG/DL Total Protein 7.9 GM/DL Albumin 3.8 GM/DL Calcium Level 10.0 MG/DL Alkaline Phosphatase 77 U/L Aspartate Amino Transf (AST/SGOT) 16 U/L Alanine Aminotransferase (ALT/SGPT) 30 U/L Total Bilirubin 0.4 MG/DL Sodium Level 141 MEQ/L Potassium Level 3.6 MEQ/L Chloride Level 104 MEQ/L Carbon Dioxide Level 29.0 MEQ/L Anion Gap 8 MEQ/L Estimat Glomerular Filtration Rate 108 ML/MIN [facility] Medical Decision Making Medical Screen Exam Complete: Yes Emergency Medical Condition: Yes Medical Record Reviewed: Yes Differential Diagnosis headache vs increased intracranial pressure vs dehydration Narrative Course Patient is a 32 year old female who comes in complaining of severe headache. She says she needs to have an LP performed by IR for relief of her symptoms. Exam shows no neurologic abnormalities. Labs sent show no acute abnormalities. Given pain medicine. Placed in observation for IR guided LP in the AM. Diagnosis Primary Impression: Pseudotumor cerebri Admitting Information Admitting Physician Requests: Observation Latia Cristobal MD Jul 11, 2017 23:19
[2017-07-12] MEDS ORDERED: NALOXONE HCL 0.4 MG/ML AMP IV PUSH PRN
[2017-07-12] MEDS ORDERED: ONDANSETRON HCL 4 MG/2 ML VIAL IVP PRN
[2017-07-12 01:30] VITALS: BP 126/76; PULSE 67; RESP 17; TEMP 97.5; O2SAT 97
[2017-07-12] MEDS ORDERED: SODIUM CHLOR 0.9% 1000 ML INJ 1,000 ML IV SCH (01:42)
--- NOTE | 2017-07-12 01:51 | HHI.HP ---
[facility] No Primary Care Physician Admission Diagnosis pseudotumor cerebri Diagnoses: Travel History International Travel<30 Days: No Contact w/Intl Traveler <30 Da: No Traveled to Known Affected Are: No History of Present Illness 32-year-old female with past medical history significant for pseudotumor cerebri , neurologist is Dr. Haddad, presents to the emergency department for evaluation of increased head pressure 2 days. The patient reports she has complete vision loss in her right eye and her left eye has blurry vision. She complains of constant dizziness with associated nausea/vomiting. She reports that she came to the emergency department yesterday for evaluation of these symptoms and returned home because she wanted to go to work. At work the symptoms became so severe that she called her neurologist office who recommended she come to the emergency department for further evaluation and an LP. The patient denies any fever/chills. Denies any chest pain or shortness of breath. Denies any additional lateralizing signs/symptoms. Review of Systems Except as stated in HPI: all other systems reviewed are Neg Past Family Social History Past Medical History Pseudotumor cerebri History of renal stones Past Surgical History Multiple lumbar punctures Renal stent placement - left Reported Medications Reported Meds & Active Scripts Active Potassium Chloride ER (Potassium Chloride) 20 Meq Tab 20 Meq PO DAILY Topamax (Topiramate) 50 Mg Tab 100 Mg PO BID Reported Reglan (Metoclopramide HCl) 10 Mg Tab 10 Mg PO QID Meclizine (Meclizine HCl) 25 Mg Tab 25 Mg PO TID PRN Lasix (Furosemide) 40 Mg Tab 40 Mg PO BID Diamox Sequels ER 12 HR (Acetazolamide) 500 Mg Cap 500 Mg PO TID Allergies: Coded Allergies: Sulfa (Sulfonamide Antibiotics) (Unverified Allergy, Severe, RASH, 07/10/17 ) amoxicillin (Unverified Allergy, Severe, Anaphylaxis, 07/10/17) ketorolac (Verified Allergy, Severe, Anaphylaxis, 07/10/17) anaphylaxis per patient ibuprofen (Unverified Allergy, Intermediate, HIVES, FACIAL SWELLING., 07/10) tramadol (Unverified Allergy, Intermediate, HIVES, 07/10/17) hives, sewll up latex (Unverified Allergy, Unknown, 07/10/17) penicillin G (Unverified Allergy, Unknown, HIVES, 07/10/17) prochlorperazine (Unverified Allergy, Unknown, HIVES, 07/10/17) sumatriptan (Unverified Adverse Reaction, Severe, VOMITING PASSED OUT, ) Family History Denies family history of CAD/DM Social History Smokes a cigarette approximately every 3 days. Denies alcohol, illicit drugs. Physical Exam Vital Signs Vital Signs Date Time Temp Pulse Resp B/P (MAP) Pulse Ox O2 Delivery O2 Flow Rate FiO2 07/12/17 00:58 07/11/17 22:22 69 18 108/55 (72) 97 07/11/17 16:20 98.8 85 18 129/77 (94) 94 Physical Exam GENERAL: Obese female lying in bed SKIN: No rashes, ecchymoses or lesions. Cool and dry. HEAD: Atraumatic. Normocephalic. No temporal or scalp tenderness. EYES: Pupils equal round and reactive. Extraocular motions intact. No scleral icterus. No injection or drainage. ENT: Nose without bleeding, purulent drainage or septal hematoma. Throat without erythema, tonsillar hypertrophy or exudate. Uvula midline. Airway patent. NECK: Trachea midline. No JVD or lymphadenopathy. Supple, nontender, no meningeal signs. CARDIOVASCULAR: Regular rate and rhythm without murmurs, gallops, or rubs. RESPIRATORY: Clear to auscultation. Breath sounds equal bilaterally. No wheezes , rales, or rhonchi. GASTROINTESTINAL: Abdomen soft, non-tender, nondistended. No hepato-splenomegaly , or palpable masses. No guarding. MUSCULOSKELETAL: Extremities without clubbing, cyanosis, or edema. No joint tenderness, effusion, or edema noted. No calf tenderness. NEUROLOGICAL: Awake and alert. Cranial nerves II through XII intact. Motor and sensory grossly within normal limits. Normal speech. Laboratory Laboratory Tests Test 07/11/17 21:19 White Blood Count 12.4 Red Blood Count 4.65 Hemoglobin 12.7 Hematocrit 38.4 Mean Corpuscular Volume 82.6 Mean Corpuscular Hemoglobin 27.4 Mean Corpuscular Hemoglobin Concent 33.2 Red Cell Distribution Width 13.5 Platelet Count 319 Mean Platelet Volume 7.6 Neutrophils (%) (Auto) 57.1 Lymphocytes (%) (Auto) 34.3 Monocytes (%) (Auto) 6.6 Eosinophils (%) (Auto) 1.5 Basophils (%) (Auto) 0.5 Neutrophils # (Auto) 7.1 Lymphocytes # (Auto) 4.3 Monocytes # (Auto) 0.8 Eosinophils # (Auto) 0.2 Basophils # (Auto) 0.1 CBC Comment DIFF FINAL Differential Comment Prothrombin Time 10.0 Prothromb Time International Ratio 1.0 Activated Partial Thromboplast Time 25.3 Blood Urea Nitrogen 15 Creatinine 0.64 Random Glucose 91 Total Protein 7.9 Albumin 3.8 Calcium Level 10.0 Alkaline Phosphatase 77 Aspartate Amino Transf (AST/SGOT) 16 Alanine Aminotransferase (ALT/SGPT) 30 Total Bilirubin 0.4 Sodium Level 141 Potassium Level 3.6 Chloride Level 104 Carbon Dioxide Level 29.0 Anion Gap 8 Estimat Glomerular Filtration Rate 108 Result Diagram: 07/11/17211807/11/172118 Caprini VTE Risk Assessment Caprini VTE Risk Assessment: No/Low Risk (score <= 1) Caprini Risk Assessment Model Point Value = 1 Point Value = 2 Point Value = 3 Point Value = 5 Age 41-60 Minor surgery BMI > 25 kg/m2 Swollen legs Varicose veins or History of unexplained or recurrent spontaneous Oral contraceptives or hormone replacement Sepsis (< 1 month) Serious lung disease, including pneumonia (< 1 month) Abnormal pulmonary function Acute myocardial infarction Congestive heart failure (< 1 month) History of inflammatory bowel disease Medical patient at bed rest Age 61-74 Arthroscopic surgery Major open surgery (> 45 min) Laparoscopic surgery (> 45 min) Malignancy Confined to bed (> 72 hours) Immobilizing plaster cast Central venous access Age >= 75 History of VTE Family history of VTE Factor V Leiden Prothrombin [id number] Lupus anticoagulant Anticardiolipin antibodies Elevated serum homocysteine Heparin-induced thrombocytopenia Other congenital or acquired thrombophilia Stroke (< 1 month) Elective arthroplasty Hip, pelvis, or leg fracture Acute spinal cord injury (< 1 month) Prophylaxis Regimen Total Risk Factor Score Risk Level Prophylaxis Regimen 0-1 Low Early ambulation 2 Moderate Order ONE of the following: *Sequential Compression Device (SCD) *Heparin 5000 units SQ BID 3-4 Higher Order ONE of the following medications: *Heparin 5000 units SQ TID *Enoxaparin/Lovenox 40 mg SQ daily (WT < 150 kg, CrCl > 30 mL/min) *Enoxaparin/Lovenox 30 mg SQ daily (WT < 150 kg, CrCl > 10-29 mL/min) *Enoxaparin/Lovenox 30 mg SQ BID (WT < 150 kg, CrCl > 30 mL/min) AND/OR *Sequential Compression Device (SCD) 5 or more Highest Order ONE of the following medications: *Heparin 5000 units SQ TID (Preferred with Epidurals) *Enoxaparin/Lovenox 40 mg SQ daily (WT < 150 kg, CrCl > 30 mL/min) *Enoxaparin/Lovenox 30 mg SQ daily (WT < 150 kg, CrCl > 10-29 mL/min) *Enoxaparin/Lovenox 30 mg SQ BID (WT < 150 kg, CrCl > 30 mL/min) AND *Sequential Compression Device (SCD) Assessment and Plan Assessment and Plan Assessment/plan: 1. Pseudotumor cerebri Patient admitted for observation with plan for LP with IR tomorrow Anticipate DC after procedure Neurologist is Sharyn Braden MD Jul 12, 2017 01:51
[2017-07-12] MEDS: MORPHINE SULFATE 4 MG/ML INJ IV PUSH PRN ×7 (02:41→21:39)
[2017-07-12 04:54] VITALS: BP 119/71; PULSE 60; RESP 17; TEMP 98.4; O2SAT 96
[2017-07-12 07:51] VITALS: BP 110/58; PULSE 64; RESP 20; TEMP 97.9; O2SAT 97
[2017-07-12] MEDS: SODIUM CHLORIDE 0.9% FLUSH 10 ML FLUSH IV FLUSH SCH ×2 (08:43→21:40)
[2017-07-12] MEDS: acetaZOLAMIDE SEQUELS 500 MG SUSTAINED RELEASE CAP PO SCH ×3 (08:46→18:18)
[2017-07-12] MEDS: METOCLOPRAMIDE HCL 10 MG TAB PO SCH ×4 (08:47→21:39)
[2017-07-12] MEDS: FUROSEMIDE 40 MG TAB PO SCH ×2 (08:47→21:39)
[2017-07-12] MEDS: POTASSIUM CHLORIDE 20 MEQ CONTROLLED RELEASE TAB PO SCH (08:48)
[2017-07-12] MEDS ORDERED: TOPIRAMATE 100 MG TAB PO SCH (09:00)
[2017-07-12 12:14] VITALS: BP 105/57; PULSE 65; RESP 18; TEMP 98.2; O2SAT 99
--- NOTE | 2017-07-12 12:55 | PD.CONS ---
History of Present Illness Service Neurology Consult Requested By medical Reason for Consult headache Primary Care Physician No Primary Care Physician History of Present Illness 32-year-old female with past medical history significant for pseudotumor cerebri admitted for worsening vision. rt eye vision has progressively gotten worse to the point she can no longer see over the past few days. left eye is able to centrally. has had many lp's. seen by nsx here and at [facility]. states she was going to get a [employer] shunt if diet/wt loss failed. optic nerve fenestration was discussed but she has not had the chance to go to an academic center for this evaluation. is on multiple medications with possible csf diuresing effect. she is interested in a [employer] shunt. Review of Systems Except as stated in HPI: all other systems reviewed are Neg Past Family Social History Past Medical History Pseudotumor cerebri History of renal stones Past Surgical History Multiple lumbar punctures Renal stent placement - left Reported Medications Reported Reglan (Metoclopramide HCl) 10 Mg Tab 10 Mg PO QID Meclizine (Meclizine HCl) 25 Mg Tab 25 Mg PO TID PRN Lasix (Furosemide) 40 Mg Tab 40 Mg PO BID Diamox (Acetazolamide) 500 Mg Cap 500 Mg PO TID topamax 100mg bid Allergies: Coded Allergies: Sulfa (Sulfonamide Antibiotics) (Unverified Allergy, Severe, RASH, 07/10/17 ) amoxicillin (Unverified Allergy, Severe, Anaphylaxis, 07/10/17) ketorolac (Verified Allergy, Severe, Anaphylaxis, 07/10/17) anaphylaxis per patient ibuprofen (Unverified Allergy, Intermediate, HIVES, FACIAL SWELLING., 07/10) tramadol (Unverified Allergy, Intermediate, HIVES, 07/10/17) hives, sewll up latex (Unverified Allergy, Unknown, 07/10/17) penicillin G (Unverified Allergy, Unknown, HIVES, 07/10/17) prochlorperazine (Unverified Allergy, Unknown, HIVES, 07/10/17) sumatriptan (Unverified Adverse Reaction, Severe, VOMITING PASSED OUT, ) Family History n/c Social History employed. Smokes a cigarette approximately every 3 days. Denies alcohol, illicit drugs. Review of Systems All other ROS: ROS reviewed as documented in chart Past Family Social History Allergies: Coded Allergies: Sulfa (Sulfonamide Antibiotics) (Unverified Allergy, Severe, RASH, 07/10/17 ) amoxicillin (Unverified Allergy, Severe, Anaphylaxis, 07/10/17) ketorolac (Verified Allergy, Severe, Anaphylaxis, 07/10/17) anaphylaxis per patient ibuprofen (Unverified Allergy, Intermediate, HIVES, FACIAL SWELLING., 07/10) tramadol (Unverified Allergy, Intermediate, HIVES, 07/10/17) hives, sewll up latex (Unverified Allergy, Unknown, 07/10/17) penicillin G (Unverified Allergy, Unknown, HIVES, 07/10/17) prochlorperazine (Unverified Allergy, Unknown, HIVES, 07/10/17) sumatriptan (Unverified Adverse Reaction, Severe, VOMITING PASSED OUT, ) Active Ordered Medications Current Medications Medications (Trade) Dose Ordered Sig/Jd Route Start Time Stop Time Status Last Admin (NS Flush) 2 ml UNSCH PRN IV FLUSH 07/12/17 00:00 (NS Flush) 2 ml BID IV FLUSH 07/12/17 09:00 07/12/17 08:43 (Tylenol) 650 mg Q4H PRN PO 07/12/17 00:00 (Zofran Inj) 4 mg Q6H PRN IVP 07/12/17 00:00 (Narcan Inj) 0.4 mg UNSCH PRN IV PUSH 07/12/17 00:00 (Diamox Sequels) 500 mg TID PO 07/12/17 09:00 07/12/17 08:46 (Lasix) 40 mg BID PO 07/12/17 09:00 07/12/17 08:47 (Antivert) 25 mg TID PRN PO 07/12/17 00:00 (Reglan) 10 mg QID PO 07/12/17 09:00 07/12/17 08:47 (KCl) 20 meq DAILY PO 07/12/17 09:00 07/12/17 08:48 (Topamax) 100 mg BID PO 07/12/17 09:00 07/12/17 09:02 (Morphine Inj) 4 mg Q3H PRN IV PUSH 07/12/17 01:45 07/12/17 11:42 Exam I&O / VS Vital Signs Date Time Temp Pulse Resp B/P (MAP) Pulse Ox O2 Delivery O2 Flow Rate FiO2 07/12/17 12:14 98.2 65 18 105/57 (73) 99 07/12/17 07:51 97.9 64 20 110/58 (75) 97 07/12/17 05:51 18 07/12/17 04:54 98.4 60 17 119/71 (87) 96 07/12/17 01:30 97.5 67 17 126/76 (93) 97 07/12/17 00:58 07/11/17 22:22 69 18 108/55 (72) 97 07/11/17 16:20 98.8 85 18 129/77 (94) 94 General: Alert and Oriented, No acute distress Eye: EOMI Respiratory: Non-labored respirations Cardiology: Normal rate Musculoskeletal: ROM Neurologic: Alert, Oriented, Normal sensory, Normal motor, No focal defects Psychiatric: Cooperative, Appropriate mood & affect, Normal judgement Exam Comments ox 3, pleasant, calm, od- no light/finger perception, os peripheral vision loss able to see centrally, face sym, no focal weakness Review/Management Diagnosis/Plan: (1) Pseudotumor cerebri ICD Codes: G93.2 - Benign intracranial hypertension Status: Chronic Plan: on 3 medications progressive vision loss recs lp nsx eval for shunt f/u mri/mrv brain wt loss/exercise (2) Migraine ICD Codes: G43.909 - Migraine, unspecified, not intractable, without status migrainosus Status: Chronic Problem Qualifiers (1) Migraine: Raffy Johnson MD Jul 12, 2017 12:55
--- NOTE | 2017-07-12 14:15 | PD.RAD ---
Post Procedure Progress Note Pre Procedure Diagnosis: (1) Pseudotumor cerebri (2) Headache Post Procedure Diagnosis: (1) Pseudotumor cerebri (2) Headache Procedure Date: Jul 12, 2017 Supervising Radiologist: Arpan Torres Estimated blood loss: none Anesthesia: Local Plan of Activity Patient to Unit: Nursing Unit Patient Condition: Good Additional Comments: Opening pressure 27cm/H2O 30cc of clear CSF removed. Pt tolerated the procedure well. Full dictated report to follow See PACS Report for procedural detail/treatment Arpan Torres MD Jul 12, 2017 14:14
--- NOTE | 2017-07-12 15:23 | RADRPT ---
EXAM DATE/TIME: 07/12/2017 13:29 [facility] COMPARISON: LUMBAR PUNCTURE W/OPENING PRESSURES, April 10, 2017, 12:33. INDICATIONS : Patient presents with a history of pseudotumor cerebri in need of lumbar puncture. MEDICAL HISTORY : Pseudotumor cerebri Blurred vision History of renal stones SURGICAL HISTORY : Multiple lumbar punctures Renal stent placement - left ENCOUNTER: Subsequent ACUITY: > 1 year PAIN SCORE: 8/10 LOCATION: Headache and left eye pain. LUMBAR PUNCTURE TIME: 13:58 hours FLUORO TIME: 0.9 minutes IMAGE SERIES: 0 ACCESS LEVEL: L3-4 FLUID: 26.5 cc of clear CSF was collected and sent to the laboratory for analysis. TECH NOTE; Lumbar puncture completed no CSF specimen needed for analysis per Dr. Hernández.HUIGEOVANNA MR#[id number] : 85 Exam date/desc:July 12, 2017LUMBAR PUNCTURE PROCEDURE : 1. Fluoroscopic guided lumbar puncture. The risks, benefits and alternatives to the procedure were explained and verbal and written consent w as obtained. The site was prepped in sterile fashion. Full sterile technique was used, including ca p, mask, sterile gloves and gown and a large sterile sheet. Hand hygiene and 2% chlorhexidine and/or betadine/alcohol prep was utilized per protocol for cutaneous antisepsis. The skin and subcutaneous tissues were infiltrated with local anesthetic solution. With fluoroscopic guidance the lumbar thecal sac was punctured at the level above. The fluid describ ed above was removed without difficulty. The patient tolerated the procedure well and there were no complications. CONCLUSION: Uncomplicated fluoroscopically guided lumbar puncture. Arpan Torres MD on July 12, 2017 at 15:20 Board Certified Radiologist. This report was verified electronically.
[2017-07-12] MEDS ORDERED: LORazepam 2 MG/ML VIAL IV PRN (16:15)
[2017-07-12] MEDS ORDERED: LORazepam 2 MG/ML VIAL IV ONE (16:15)
[2017-07-12 16:34] VITALS: BP 122/67; PULSE 68; RESP 18; TEMP 98.5; O2SAT 97
--- NOTE | 2017-07-12 18:09 | RADRPT ---
EXAM DATE/TIME: 07/12/2017 17:31 [facility] COMPARISON: MRI BRAIN W/O CONTRAST, December 01, 2016, 12:19. MRV BRAIN W/WO CONTRAST, December 01, 2016, 12:19. INDICATIONS : Cephalgia. Blurred vision. MEDICAL HISTORY : Hypertension. SURGICAL HISTORY : Renal stents. ENCOUNTER: Initial ACUITY: 1 day PAIN SCORE: 5/10 LOCATION: cranial TECHNIQUE: Multiplanar, multisequence MRI of the brain was performed without contrast. FINDINGS: CEREBRUM: The ventricles are normal for age. No evidence of midline shift, mass lesion, hemorrhage or acute in farction. No extraaxial fluid collections are seen. The pituitary gland and suprasellar cistern are normal in configuration. WHITE MATTER: No significant signal abnormalities are seen in the white matter. POSTERIOR FOSSA: The cerebellum and brainstem are intact. The 4th ventricle is midline. The cerebellopontine angle is unremarkable. The cerebellar tonsils are normal in position. DIFFUSION IMAGING: No focal areas of restricted diffusion are seen. No evidence of acute infarction. EXTRACRANIAL: The visualized portions of the orbits and paranasal sinuses are unremarkable. CONCLUSION: 1. Normal examination. Stable compared to prior dated 12/01/16. Arpan Torres MD on July 12, 2017 at 18:05 Board Certified Radiologist. This report was verified electronically.
--- NOTE | 2017-07-12 18:22 | RADRPT ---
EXAM DATE/TIME: 07/12/2017 17:31 [facility] COMPARISON: MRI BRAIN W/O CONTRAST, July 12, 2017, 17:31. MRV BRAIN W/WO CONTRAST, December 01, 2016, 12:19. INDICATIONS : Cephalgia. Blurred vision. MEDICAL HISTORY : Hypertension. SURGICAL HISTORY : Renal stents. ENCOUNTER: Initial ACUITY: 1 day PAIN SCORE: 5/10 LOCATION: cranial Please note a normal MRA of the brain does not entirely exclude the possibility of a small aneurysm, nor the possibility of distal intracranial vessel disease. TECHNIQUE: MR venography of the brain was performed without contrast with multiplanar and 3D reconstructions. FINDINGS: The superior sagittal sinus and cortical veins are widely patent. The internal cervical veins, vein o f Luis and straight sinus are patent. There is an area of signal dropout at the junction of the left transverse sinus with the torcula. This is seen on the reconstructed images. There is some motion ar tifact through this area. I seen no evidence of edematous changes within the brain parenchyma. As suc h, this is felt to likely be artifactual. CONCLUSION: 1. There is an area of signal dropout at the junction of the left transverse sinus and the torcula. T his is new when compared to previous study dated 12/01/16. There is some motion artifact in this area . This area does appear patent on the sagittal source images and as such this may be artifactual. The re is no evidence of edema within the brain parenchyma adjacent to this area. Arpan Torres MD on July 12, 2017 at 18:15 Board Certified Radiologist. This report was verified electronically.
--- NOTE | 2017-07-12 18:30 | PD.CONS ---
History of Present Illness Service Neurosurgery Consult Requested By Neurology service Reason for Consult History of pseudotumor cerebri Primary Care Physician No Primary Care Physician Diagnoses: History of Present Illness 32-year-old female with history of pseudotumor cerebri presents back to the emergency room with complaint of persistent headache and worsening vision. She has had multiple visits to the emergency room in the hospital throughout 2017. She underwent 6 lumbar punctures from December 02, 2016. April 10, 2017 with opening pressures varying from a low of 13.5 most recently to high 28 on . She has been seen by neurology multiple times as an inpatient and followed as an outpatient. She was seen by neurosurgery for evaluation in 2017. She has also been seen by neurosurgery, Dr. Polo at [facility], and was apparently being considered for a ventriculoperitoneal shunt placement but did not ultimately have this performed. She states that he is leaving his practice. She has not been referred to another neurosurgeon. Neurosurgery recommendations in November 2016 were to proceed with evaluation for a optic nerve fenestration. She has not proceeded with this recommendation, apparently due to insurance reasons. She complains of progressive visual loss in the past 1-2 weeks. 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 She is followed by Dr. Arndt and states that she just had visual field testing done a couple months ago. She has been following with him for over a year. Review of Systems Constitutional: DENIES: Fever Eyes: COMPLAINS OF: Blurred vision, DENIES: Diplopia Ears, nose, mouth, throat: DENIES: Hearing loss, Vertigo Respiratory: DENIES: Shortness of breath Cardiovascular: DENIES: Chest pain Gastrointestinal: DENIES: Abdominal pain Musculoskeletal: DENIES: Muscle aches Hematologic/lymphatic: DENIES: Bruising Neurologic: COMPLAINS OF: Headache, DENIES: Abnormal gait Psychiatric: DENIES: Confusion Past Family Social History Allergies: Coded Allergies: Sulfa (Sulfonamide Antibiotics) (Unverified Allergy, Severe, RASH, 07/10/17 ) amoxicillin (Unverified Allergy, Severe, Anaphylaxis, 07/10/17) ketorolac (Verified Allergy, Severe, Anaphylaxis, 07/10/17) anaphylaxis per patient ibuprofen (Unverified Allergy, Intermediate, HIVES, FACIAL SWELLING., 07/10) tramadol (Unverified Allergy, Intermediate, HIVES, 07/10/17) hives, sewll up latex (Unverified Allergy, Unknown, 07/10/17) penicillin G (Unverified Allergy, Unknown, HIVES, 07/10/17) prochlorperazine (Unverified Allergy, Unknown, HIVES, 07/10/17) sumatriptan (Unverified Adverse Reaction, Severe, VOMITING PASSED OUT, ) Past Medical History Pseudotumor cerebri Renal stones No history of significant cardiac, pulmonary, gastrointestinal disease, diabetes , hypertension Past Surgical History No major surgeries reported. Renal stent placement Multiple lumbar punctures. Reported Medications Reported Meds & Active Scripts Active Potassium Chloride ER (Potassium Chloride) 20 Meq Tab 20 Meq PO DAILY Topamax (Topiramate) 50 Mg Tab 100 Mg PO BID Reported Reglan (Metoclopramide HCl) 10 Mg Tab 10 Mg PO QID Meclizine (Meclizine HCl) 25 Mg Tab 25 Mg PO TID PRN Lasix (Furosemide) 40 Mg Tab 40 Mg PO BID Diamox Sequels ER 12 HR (Acetazolamide) 500 Mg Cap 500 Mg PO TID Family History Negative history of cardiac, neurologic disease, diabetes Social History Does not drink alcohol. Smokes cigarettes infrequently Physical Exam Vital Signs Vital Signs Date Time Temp Pulse Resp B/P (MAP) Pulse Ox O2 Delivery O2 Flow Rate FiO2 07/12/17 16:34 98.5 68 18 122/67 (85) 97 07/12/17 12:14 98.2 65 18 105/57 (73) 99 07/12/17 07:51 97.9 64 20 110/58 (75) 97 07/12/17 05:51 18 07/12/17 04:54 98.4 60 17 119/71 (87) 96 07/12/17 01:30 97.5 67 17 126/76 (93) 97 07/12/17 00:58 07/11/17 22:22 69 18 108/55 (72) 97 Physical Exam GENERAL: This is a moderately obese lady, appears somewhat anxious and moderately uncomfortable during the examination. SKIN: No rashes, ecchymoses or lesions. Cool and dry. HEAD: Atraumatic. Normocephalic. No temporal or scalp tenderness. EYES: Pupils equal round and reactive. Extraocular motions intact. No scleral icterus. No injection or drainage. ENT: Nose without bleeding, purulent drainage or septal hematoma. Throat without erythema, tonsillar hypertrophy or exudate. Uvula midline. Airway patent. NECK: Trachea midline. No JVD or lymphadenopathy. Supple, nontender, no meningeal signs. CARDIOVASCULAR: Pulse regular RESPIRATORY: Clear and nonlabored GASTROINTESTINAL: Abdomen soft, non-tender, nondistended. No hepato-splenomegaly , or palpable masses. No guarding. MUSCULOSKELETAL: Extremities without significant edema. No joint tenderness, effusion, or edema noted. No calf tenderness. NEUROLOGICAL: Awake and alert Oriented X 3 Speech is clear Conversant and appropriate Follow simple commands well Answers questions appropriately Reasonable judgment and insight Recent and remote memory are intact No evidence of anxiety. Appears somewhat depressed. Pupils are equal and reactive to accommodation. Extra-ocular movements, facial sensorimotor, tongue, palate, sternocleidomastoid testing, hearing to finger rub testing, and bilateral shoulder shrug are all intact. She has significant constriction of visual hyatt in the right thigh with only a small central area of vision to confrontation. Patient is somewhat better in the left eye, able to count fingers in the far lateral greater than medial quadrants. Sensation is intact to light touch in all extremities Strength normal major flexion and extension groups all extremities Jr's absent bilaterally No ankle clonus Plantar responses absent bilateral Fine motor movements intact upper extremities Laboratory Laboratory Tests Test 07/11/17 21:19 White Blood Count 12.4 Red Blood Count 4.65 Hemoglobin 12.7 Hematocrit 38.4 Mean Corpuscular Volume 82.6 Mean Corpuscular Hemoglobin 27.4 Mean Corpuscular Hemoglobin Concent 33.2 Red Cell Distribution Width 13.5 Platelet Count 319 Mean Platelet Volume 7.6 Neutrophils (%) (Auto) 57.1 Lymphocytes (%) (Auto) 34.3 Monocytes (%) (Auto) 6.6 Eosinophils (%) (Auto) 1.5 Basophils (%) (Auto) 0.5 Neutrophils # (Auto) 7.1 Lymphocytes # (Auto) 4.3 Monocytes # (Auto) 0.8 Eosinophils # (Auto) 0.2 Basophils # (Auto) 0.1 CBC Comment DIFF FINAL Differential Comment Prothrombin Time 10.0 Prothromb Time International Ratio 1.0 Activated Partial Thromboplast Time 25.3 Blood Urea Nitrogen 15 Creatinine 0.64 Random Glucose 91 Total Protein 7.9 Albumin 3.8 Calcium Level 10.0 Alkaline Phosphatase 77 Aspartate Amino Transf (AST/SGOT) 16 Alanine Aminotransferase (ALT/SGPT) 30 Total Bilirubin 0.4 Sodium Level 141 Potassium Level 3.6 Chloride Level 104 Carbon Dioxide Level 29.0 Anion Gap 8 Estimat Glomerular Filtration Rate 108 Result Diagram: 07/11/17211807/11/172118 Imaging Last Impressions Lumbar Puncture Fluoroscopy 07/12/17 0000 Signed Impressions: Service Date/Time: Wednesday, July 12, 2017 13:29 - CONCLUSION: Uncomplicated fluoroscopically guided lumbar puncture. Arpan Torres MD Head/Brain Mag Res Venography 07/12/17 0000 Signed Impressions: Service Date/Time: Wednesday, July 12, 2017 17:31 - CONCLUSION: 1. There is an area of signal dropout at the junction of the left transverse sinus and the torcula. This is new when compared to previous study dated 12/01/16. There is some motion artifact in this area. This area does appear patent on the sagittal source images and as such this may be artifactual. There is no evidence of edema within the brain parenchyma adjacent to this area. Arpan Torres MD Brain MRI 07/12/17 0000 Signed Impressions: Service Date/Time: Wednesday, July 12, 2017 17:31 - CONCLUSION: 1. Normal examination. Stable compared to prior dated 12/01/16. Arpan Torres MD Assessment and Plan Assessment and Plan Impression: History of pseudotumor cerebri with complaint of persistent headaches, progressive visual deficits. She had a lumbar puncture yesterday on 07/12/17. Opening pressure is not recorded in the the patient states that she was told the opening pressure was 28. Plan: Discussed with neurology on 07/12/17. I reviewed the patient's documentation and initial imaging studies on 07/12/17, however she was out of her room for much of the day getting procedures and studies done. I saw her again to complete the consultation on 07/13/17. She does not have any documentation of her visual hyatt. She has told me that she has pictures of the visual field tests on her telephone, but was unable to find it during my visit today. We need to obtain her most recent visual hyatt and ophthalmology evaluation results. I have advised her that the primary indication for an optic nerve fenestration or shunt procedure would be significant and progressive visual loss despite weight loss and medications. We will contact Dr. Almaguer' office to try to get more information regarding her ophthalmology evaluation and visual hyatt. She states that she is getting insurance which will allow her to be seen at [facility] for optic nerve fenestration evaluation. 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 Otherwise evaluation for optic nerve fenestration as previously recommended would be prudent. Mamadou Cerrato MD Jul 12, 2017 18:30
[2017-07-12 20:00] VITALS: BP 96/52; PULSE 75; RESP 20; TEMP 98.5; O2SAT 96
[2017-07-12] MEDS: TOPIRAMATE 25 MG TAB PO SCH (21:40)
[2017-07-13] VITALS (7 sets, daily range): BP systolic 57–153; BP diastolic 51–82; PULSE 69–93; RESP 16–20; TEMP 97.5–99.2; O2SAT 96–98
[2017-07-13 00:27] LABS: AUTOMATED NEUTROPHIL # 4.3 TH/MM3 (1.8-7.7); BASOPHIL % 0.4 % (0.0-2.0); EOSINOPHIL # 0.2 TH/MM3 (0-0.4); EOSINOPHIL % 2.3 % (0.0-4.0); HEMATOCRIT 35.3 % (35.0-46.0); HEMOGLOBIN 11.7 GM/DL (11.6-15.3); LYMPH % 41.5 % (9.0-44.0); LYMPHOCYTE # 3.8 TH/MM3 (1.0-4.8); MEAN CELL VOLUME 83.8 FL (80.0-100.0); MEAN CORPUSCULAR HEMOGLOBIN 27.8 PG (27.0-34.0); MEAN CORPUSCULAR HGB CONC 33.1 % (32.0-36.0); MEAN PLATELET VOLUME 7.8 FL (7.0-11.0); MONO % 8.1 % (0.0-8.0); MONOCYTE # 0.7 TH/MM3 (0-0.9); NEUT % 47.7 % (16.0-70.0); PLATELET COUNT 269 TH/MM3 (150-450); RED BLOOD COUNT 4.21 MIL/MM3 (4.00-5.30); RED CELL DISTRIBUTION WIDTH 13.5 % (11.6-17.2); WHITE BLOOD COUNT 9.1 TH/MM3 (4.0-11.0)
[2017-07-13 00:41] LABS: BICARBONATE 27.4 MEQ/L (21.0-32.0); C-REACTIVE PROTEIN 0.64 MG/DL (0.00-0.30); CALCIUM 8.6 MG/DL (8.5-10.1); CREATININE 0.72 MG/DL (0.50-1.00)
[2017-07-13 01:12] LABS: WESTERGREN SEDIMENTATION RATE 30 mm/hr (0-20)
[2017-07-13] MEDS: MORPHINE SULFATE 4 MG/ML INJ IV PUSH PRN ×7 (04:07→23:20)
[2017-07-13] MEDS: SODIUM CHLORIDE 0.9% FLUSH 10 ML FLUSH IV FLUSH SCH ×2 (08:00→19:48)
[2017-07-13] MEDS: METOCLOPRAMIDE HCL 10 MG TAB PO SCH ×4 (08:02→19:49)
[2017-07-13] MEDS: acetaZOLAMIDE SEQUELS 500 MG SUSTAINED RELEASE CAP PO SCH ×3 (08:02→16:41)
[2017-07-13] MEDS: FUROSEMIDE 40 MG TAB PO SCH ×2 (08:02→19:49)
[2017-07-13] MEDS: POTASSIUM CHLORIDE 20 MEQ CONTROLLED RELEASE TAB PO SCH (08:02)
[2017-07-13] MEDS: TOPIRAMATE 25 MG TAB PO SCH ×2 (08:44→19:49)
[2017-07-13] MEDS ORDERED: IOHEXOL 350 MG/ML 10 ML VIAL (for RAD DIAG) IVCONTRAST ONE (21:05)
--- NOTE | 2017-07-13 21:31 | RADRPT ---
EXAM DATE/TIME: 07/13/2017 20:52 [facility] COMPARISON: No previous studies available for comparison. INDICATIONS : Headache. IV CONTRAST: 98 cc Omnipaque 350 (iohexol) IV RADIATION DOSE: 17.93 CTDIvol (mGy) MEDICAL HISTORY : Hypertension. Renal calculi. SURGICAL HISTORY : Cholecystectomy. Renal stents and lithotripsy ENCOUNTER: Initial ACUITY: 3 days PAIN SCALE: 8/10 LOCATION: cranial TECHNIQUE: Volumetric scanning was performed using a multi-row detector CT scanner. The data was post processed with a variety of visualization algorithms including full volume maximum intensity projection, multi -planar sliding thin slab reformation, curved planar reformation, and surface rendering techniques. Using automated exposure control and adjustment of the mA and/or kV according to patient size, radiat ion dose was kept as low as reasonably achievable to obtain optimal diagnostic quality images. DICO M format image data is available electronically for review and comparison. FINDINGS: The arterial and venous system of the brain appears intact and patent. Specifically no thrombus ident ified in the venous sinuses of the brain. Internal cerebral veins are patent. CONCLUSION: 1. Negative CTV of the brain. Daniel Zuniga MD on July 13, 2017 at 21:25 Board Certified Radiologist. This report was verified electronically.
--- NOTE | 2017-07-13 23:52 | HHI.PR ---
Subjective Remarks Patient says that headache is overall better than on admission. Denies any chest pain or shortness of breath. Objective Vital Signs Date Time Temp Pulse Resp B/P (MAP) Pulse Ox O2 Delivery O2 Flow Rate FiO2 07/13/17 20:14 98.2 83 17 153/82 (105) 96 07/13/17 16:32 102/57 (72) 07/13/17 16:24 98.6 80 18 57/ 96 07/13/17 12:30 98.2 70 16 109/51 (70) 96 07/13/17 08:42 99.2 93 16 98/55 (69) 97 07/13/17 04:03 98.1 83 20 94/52 (66) 98 07/13/17 01:00 97.5 69 20 102/56 (71) 96 I/O 07/13/17 07/13/17 07/13/17 07/14/17 07/14/17 07/14/17 07:00 15:00 23:00 07:00 15:00 23:00 # Voids 2 Result Diagram: 07/12/17 2356 07/12/17 2356 Objective Remarks GENERAL: patient sitting up in bed. Appears comfortable. SKIN: Warm and dry. HEAD: Normocephalic. EYES: No scleral icterus. No injection or drainage. NECK: Supple, trachea midline. No JVD or lymphadenopathy. CARDIOVASCULAR: Regular rate and rhythm without murmurs, gallops, or rubs. RESPIRATORY: Breath sounds equal bilaterally. No accessory muscle use. GASTROINTESTINAL: Abdomen soft, non-tender, nondistended. MUSCULOSKELETAL: No cyanosis, or edema. BACK: Nontender without obvious deformity. No CVA tenderness. A/P Assessment and Plan 07/13/17 Neurosurgery eval ongoing. Opening pressure 27. MRV ordered today by neuro. Appreciate farm consultant assistance. //Pseudotumor cerebri Patient admitted for observation with plan for LP with IR tomorrow Anticipate DC after procedure Neurologist is Dr. 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 Discharge Planning pending neurosurgical and neurology clearance. Alexander Hernández MD Jul 13, 2017 23:52
[2017-07-14 00:34] VITALS: BP 113/63; PULSE 74; RESP 17; TEMP 98.4; O2SAT 95
[2017-07-14 04:51] VITALS: BP 107/64; PULSE 75; RESP 17; TEMP 99; O2SAT 97
[2017-07-14] MEDS: MORPHINE SULFATE 4 MG/ML INJ IV PUSH PRN ×6 (05:52→21:20)
[2017-07-14 08:00] VITALS: BP 115/67; PULSE 77; RESP 18; TEMP 98.5; O2SAT 98
[2017-07-14] MEDS: SODIUM CHLORIDE 0.9% FLUSH 10 ML FLUSH IV FLUSH SCH ×2 (09:08→21:20)
[2017-07-14] MEDS: TOPIRAMATE 25 MG TAB PO SCH ×2 (09:08→21:19)
[2017-07-14] MEDS: POTASSIUM CHLORIDE 20 MEQ CONTROLLED RELEASE TAB PO SCH (09:09)
[2017-07-14] MEDS: acetaZOLAMIDE SEQUELS 500 MG SUSTAINED RELEASE CAP PO SCH ×3 (09:09→17:58)
[2017-07-14] MEDS: FUROSEMIDE 40 MG TAB PO SCH ×2 (09:09→21:18)
[2017-07-14] MEDS: METOCLOPRAMIDE HCL 10 MG TAB PO SCH ×4 (09:09→21:19)
[2017-07-14] MEDS: ACETAMINOPHEN 325 MG TAB PO PRN (11:01)
[2017-07-14] MEDS: SODIUM CHLORIDE 0.9% FLUSH 10 ML FLUSH IV FLUSH PRN ×3 (12:23→18:00)
[2017-07-14 12:27] VITALS: BP 118/70; PULSE 86; RESP 16; TEMP 98.2; O2SAT 96
--- NOTE | 2017-07-14 15:18 | HHI.PR ---
Subjective Remarks This morning patient reports that headache continues. Denies any chest pain or shortness of breath. Objective Vital Signs Date Time Temp Pulse Resp B/P (MAP) Pulse Ox O2 Delivery O2 Flow Rate FiO2 07/14/17 12:27 98.2 86 16 118/70 (86) 96 07/14/17 08:00 98.5 77 18 115/67 (83) 98 07/14/17 04:51 99.0 75 17 107/64 (78) 97 07/14/17 00:34 98.4 74 17 113/63 (80) 95 07/13/17 20:14 98.2 83 17 153/82 (105) 96 07/13/17 16:32 102/57 (72) 07/13/17 16:24 98.6 80 18 57/ 96 I/O 07/13/17 07/13/17 07/13/17 07/14/17 07/14/17 07/14/17 07:00 15:00 23:00 07:00 15:00 23:00 Intake Total 240 ml Balance 240 ml Intake Oral 240 ml # Voids 2 2 Result Diagram: 07/12/17235507/12/172355 Objective Remarks GENERAL: patient sitting up in bed. Appears comfortable. Alert and oriented 3. No change on exam. SKIN: Warm and dry. HEAD: Normocephalic. EYES: No scleral icterus. No injection or drainage. NECK: Supple, trachea midline. No JVD or lymphadenopathy. CARDIOVASCULAR: Regular rate and rhythm without murmurs, gallops, or rubs. RESPIRATORY: Breath sounds equal bilaterally. No accessory muscle use. GASTROINTESTINAL: Abdomen soft, non-tender, nondistended. MUSCULOSKELETAL: No cyanosis, or edema. BACK: Nontender without obvious deformity. No CVA tenderness. A/P Assessment and Plan 07/14/17 Neurosurgery eval ongoing. Opening pressure 27. MRV without venous thrombus. Pending outside ophthalmology paperwork. Appreciate mental hygiene consultant assistance. //Pseudotumor cerebri Patient admitted for observation with plan for LP with IR tomorrow Anticipate DC after procedure Neurologist is Dr. Haddad = Neurosurgery evaluating for possible [employer] shunt. Discharge Planning pending neurosurgical and neurology clearance. Alexander Hernández MD Jul 14, 2017 15:18
[2017-07-14 16:00] VITALS: BP 123/75; PULSE 84; RESP 16; TEMP 98; O2SAT 99
[2017-07-14 20:02] VITALS: BP 99/56; PULSE 80; RESP 19; TEMP 98.3; O2SAT 98
--- NOTE | 2017-07-14 20:20 | HHI.NSPN ---
(Chandrakant Yeung) History Chief Complaint: Headache and eye pain (Chandrakant Yeung) Interval History 07/12: 32-year-old female with history of pseudotumor cerebri presents back to the emergency room with complaint of persistent headache and worsening vision. She has had multiple visits to the emergency room in the hospital throughout 2017. She underwent 6 lumbar punctures from December 02, 2016. April 10, 2017 with opening pressures varying from a low of 13.5 most recently to high 28 on . She has been seen by neurology multiple times as an inpatient and followed as an outpatient. She was seen by neurosurgery for evaluation in 2017. She has also been seen by neurosurgery, Dr. Polo at [facility], and was apparently being considered for a ventriculoperitoneal shunt placement but did not ultimately have this performed. She states that he is leaving his practice. She has not been referred to another neurosurgeon. Neurosurgery recommendations in November 2016 were to proceed with evaluation for a optic nerve fenestration. She has not proceeded with this recommendation, apparently due to insurance reasons. She complains of progressive visual loss in the past 1-2 weeks. 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 She is followed by Dr. Arndt and states that she just had visual field testing done a couple months ago. She has been following with him for over a year. 07/14: The patient is awake and alert laying in bed when seen watching TV. She says that it feels like there is a rubber pain behind the right eye that is about to break. She reports that her vision and headache improved briefly but is now getting worse again. She does say that they are not as bad as when she first came in. She denies any pain, numbness or tingling to the extremities. Sensorimotor function stable. Visual field seems to be constricted bilaterally upon examination. (Chandrakant Yeung) Exam Results 07/13/17 07/13/17 07/14/17 07/14/17 07/15/17 07/15/17 06:00 18:00 06:00 18:00 06:00 18:00 Intake Total 240 ml Balance 240 ml Intake Oral 240 ml # Voids 2 2 Vital Signs Date Time Temp Pulse Resp B/P (MAP) Pulse Ox O2 Delivery O2 Flow Rate FiO2 07/14/17 16:00 98.0 84 16 123/75 (91) 99 07/14/17 12:27 98.2 86 16 118/70 (86) 96 07/14/17 08:00 98.5 77 18 115/67 (83) 98 07/14/17 04:51 99.0 75 17 107/64 (78) 97 07/14/17 00:34 98.4 74 17 113/63 (80) 95 07/13/17 20:14 98.2 83 17 153/82 (105) 96 07/13/17 16:32 102/57 (72) 07/13/17 16:24 98.6 80 18 57/ 96 07/13/17 12:30 98.2 70 16 109/51 (70) 96 07/13/17 08:42 99.2 93 16 98/55 (69) 97 07/13/17 04:03 98.1 83 20 94/52 (66) 98 07/13/17 01:00 97.5 69 20 102/56 (71) 96 07/12/17 20:00 98.5 75 20 96/52 (67) 96 07/12/17 16:34 98.5 68 18 122/67 (85) 97 07/12/17 12:14 98.2 65 18 105/57 (73) 99 07/12/17 07:51 97.9 64 20 110/58 (75) 97 07/12/17 05:51 18 07/12/17 04:54 98.4 60 17 119/71 (87) 96 07/12/17 01:30 97.5 67 17 126/76 (93) 97 07/12/17 00:58 07/11/17 22:22 69 18 108/55 (72) 97 (Chandrakant Yeung) Physical Examination GENERAL: Awake & alert in bed watching TV. Affect essentially normal. Readily interacts. No apparent distress. HEENT: Normocephalic, atraumatic. PERRLA 3 mm brisk, EOMI. MMM & pink, tongue midline to protrusion. MUSCULOSKELETAL: HOUSE spontaneously & purposefully. Extremities NTTP. NEUROLOGICAL: AAOx3. Speech clear & appropriate. Follows simple commands. Pupils are equal and reactive to accommodation. Extra-ocular movements, facial sensorimotor, tongue, palate, sternocleidomastoid testing, hearing to finger rub testing, and bilateral shoulder shrug are all intact. Upon examination visual hyatt seem to be significantly constricted bilaterally with only a small central area of vision to confrontation. Decrease sensation to the outside of the left foot chronically w/o change, o/w sensation is intact to light touch to all extremities. Motor strength is 5/5 to all major flexion & extension muscle groups of the extremities, to include the wrist flexors & extensors. The hand intrinsics & extrinsics are 4 to 4+/5 bilaterally. (Chandrakant Yeung) Lab, Micro, Other Results Recent Impressions Brain CT 07/13/17 0000 Signed Impressions: Service Date/Time: Thursday, July 13, 2017 20:52 - CONCLUSION: 1. Negative CTV of the brain. Daniel Zuniga MD Lumbar Puncture Fluoroscopy 07/12/17 0000 Signed Impressions: Service Date/Time: Wednesday, July 12, 2017 13:29 - CONCLUSION: Uncomplicated fluoroscopically guided lumbar puncture. Arpan Torres MD Head/Brain Mag Res Venography 07/12/17 0000 Signed Impressions: Service Date/Time: Wednesday, July 12, 2017 17:31 - CONCLUSION: 1. There is an area of signal dropout at the junction of the left transverse sinus and the torcula. This is new when compared to previous study dated 12/01/16. There is some motion artifact in this area. This area does appear patent on the sagittal source images and as such this may be artifactual. There is no evidence of edema within the brain parenchyma adjacent to this area. Arpan Torres MD Brain MRI 07/12/17 0000 Signed Impressions: Service Date/Time: Wednesday, July 12, 2017 17:31 - CONCLUSION: 1. Normal examination. Stable compared to prior dated 12/01/16. Arpan Torres MD Laboratory Tests Test 07/11/17 21:19 07/12/17 23:56 White Blood Count 12.4 TH/MM3 9.1 TH/MM3 Red Blood Count 4.65 MIL/MM3 4.21 MIL/MM3 Hemoglobin 12.7 GM/DL 11.7 GM/DL Hematocrit 38.4 % 35.3 % Mean Corpuscular Volume 82.6 FL 83.8 FL Mean Corpuscular Hemoglobin 27.4 PG 27.8 PG Mean Corpuscular Hemoglobin Concent 33.2 % 33.1 % Red Cell Distribution Width 13.5 % 13.5 % Platelet Count 319 TH/MM3 269 TH/MM3 Mean Platelet Volume 7.6 FL 7.8 FL Neutrophils (%) (Auto) 57.1 % 47.7 % Lymphocytes (%) (Auto) 34.3 % 41.5 % Monocytes (%) (Auto) 6.6 % 8.1 % Eosinophils (%) (Auto) 1.5 % 2.3 % Basophils (%) (Auto) 0.5 % 0.4 % Neutrophils # (Auto) 7.1 TH/MM3 4.3 TH/MM3 Lymphocytes # (Auto) 4.3 TH/MM3 3.8 TH/MM3 Monocytes # (Auto) 0.8 TH/MM3 0.7 TH/MM3 Eosinophils # (Auto) 0.2 TH/MM3 0.2 TH/MM3 Basophils # (Auto) 0.1 TH/MM3 0.0 TH/MM3 CBC Comment DIFF FINAL DIFF FINAL Differential Comment Prothrombin Time 10.0 SEC Prothromb Time International Ratio 1.0 RATIO Activated Partial Thromboplast Time 25.3 SEC Blood Urea Nitrogen 15 MG/DL 11 MG/DL Creatinine 0.64 MG/DL 0.72 MG/DL Random Glucose 91 MG/DL 100 MG/DL Total Protein 7.9 GM/DL Albumin 3.8 GM/DL Calcium Level 10.0 MG/DL 8.6 MG/DL Alkaline Phosphatase 77 U/L Aspartate Amino Transf (AST/SGOT) 16 U/L Alanine Aminotransferase (ALT/SGPT) 30 U/L Total Bilirubin 0.4 MG/DL Sodium Level 141 MEQ/L 141 MEQ/L Potassium Level 3.6 MEQ/L 4.1 MEQ/L Chloride Level 104 MEQ/L 105 MEQ/L Carbon Dioxide Level 29.0 MEQ/L 27.4 MEQ/L Anion Gap 8 MEQ/L 9 MEQ/L Estimat Glomerular Filtration Rate 108 ML/MIN 94 ML/MIN Erythrocyte Sedimentation Rate 30 mm/hr C-Reactive Protein 0.64 MG/DL Thyroid Stimulating Hormone 3rd Gen 1.920 uIU/ML (Chandrakant Yeung) Medical Decision Making Impression and Plan Impression: History of pseudotumor cerebri with complaint of persistent headaches, progressive visual deficits. She had a lumbar puncture yesterday on 07/12/17. Opening pressure is not recorded in the the patient states that she was told the opening pressure was 28. Dr Cerrato advised her that the primary indication for an optic nerve fenestration or shunt procedure would be significant and progressive visual loss despite weight loss and medications. The patient is doing fair when seen. She states her headache and vision had improved briefly but are now worsening again. Sensorimotor intact and essentially stable. Visual hyatt appear to be significantly constricted bilaterally with a small central area of vision to confrontation. CT brain unremarkable. Plan: Primary management per Hospitalist. Obtain her most recent visual hyatt and ophthalmology evaluation results. Neuro checks. Patient desires to be evaluated at [facility] for optic nerve fenestration evaluation once she has her insurance in place. 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 Otherwise evaluation for optic nerve fenestration as previously recommended would be prudent. (Chandrakant Yeung) Attending Statement The exam, history, and the medical decision-making described in the above note were completed with the assistance of the mid-level provider. I reviewed and agree with the findings presented. Patient's headache seems a little better on 07/14/17, fluctuating. I asked my office to obtain her records from ophthalmology 07/14/17 a.m. Records presently pending. If the visual hyatt are relatively stable, then patient would like to proceed with evaluation for possible optic nerve fenestration [facility]. Otherwise may need to proceed with a shunt (Mamadou Cerrato MD) Chandrakant Yeung Jul 14, 2017 20:20 Mamadou Cerrato MD Jul 15, 2017 00:41
[2017-07-15] MEDS: MORPHINE SULFATE 4 MG/ML INJ IV PUSH PRN ×6 (00:38→21:45)
[2017-07-15 00:40] VITALS: BP 104/53; PULSE 71; RESP 18; TEMP 98.2; O2SAT 95
[2017-07-15 04:35] VITALS: BP 106/68; PULSE 79; RESP 18; TEMP 98.2; O2SAT 98
[2017-07-15 07:47] VITALS: BP 103/65; PULSE 80; RESP 20; TEMP 98.5; O2SAT 97
[2017-07-15] MEDS: FUROSEMIDE 40 MG TAB PO SCH ×2 (08:36→21:39)
[2017-07-15] MEDS: POTASSIUM CHLORIDE 20 MEQ CONTROLLED RELEASE TAB PO SCH (08:37)
[2017-07-15] MEDS: acetaZOLAMIDE SEQUELS 500 MG SUSTAINED RELEASE CAP PO SCH ×3 (08:37→17:39)
[2017-07-15] MEDS: METOCLOPRAMIDE HCL 10 MG TAB PO SCH ×4 (08:37→21:40)
[2017-07-15] MEDS: TOPIRAMATE 25 MG TAB PO SCH ×2 (08:39→21:40)
[2017-07-15] MEDS: SODIUM CHLORIDE 0.9% FLUSH 10 ML FLUSH IV FLUSH SCH ×2 (09:00→21:39)
--- NOTE | 2017-07-15 09:33 | HHI.PR ---
Review/Management Diagnosis/Plan: (1) Pseudotumor cerebri ICD Codes: G93.2 - Benign intracranial hypertension Status: Chronic Plan: on 3 medications progressive vision loss mri/mrv brain- nml recs vision, symptoms stable nsx eval for shunt per nsx with no insurance, [facility] eval may be challenging wt loss/exercise (2) Migraine ICD Codes: G43.909 - Migraine, unspecified, not intractable, without status migrainosus Status: Chronic Subjective Subjective Comments No acute events reported mild headache; better after lp No chest pain No dyspnea Active Medications Current Medications Medications (Trade) Dose Ordered Sig/Jd Route Start Time Stop Time Status Last Admin (NS Flush) 2 ml UNSCH PRN IV FLUSH 07/12/17 00:00 07/14/17 18:00 (NS Flush) 2 ml BID IV FLUSH 07/12/17 09:00 07/14/17 21:20 (Tylenol) 650 mg Q4H PRN PO 07/12/17 00:00 07/14/17 11:01 (Zofran Inj) 4 mg Q6H PRN IVP 07/12/17 00:00 07/14/17 11:01 (Narcan Inj) 0.4 mg UNSCH PRN IV PUSH 07/12/17 00:00 (Diamox Sequels) 500 mg TID PO 07/12/17 09:00 07/15/17 08:37 (Lasix) 40 mg BID PO 07/12/17 09:00 07/15/17 08:36 (Antivert) 25 mg TID PRN PO 07/12/17 00:00 (Reglan) 10 mg QID PO 07/12/17 09:00 07/15/17 08:37 (KCl) 20 meq DAILY PO 07/12/17 09:00 07/15/17 08:37 (Morphine Inj) 4 mg Q3H PRN IV PUSH 07/12/17 01:45 07/15/17 08:46 (Topamax) 125 mg BID PO 07/12/17 21:00 07/15/17 08:39 Allergies Allergies Coded Allergies Sulfa (Sulfonamide Antibiotics) (Unverified Allergy, Severe, RASH, 07/10/17) amoxicillin (Unverified Allergy, Severe, Anaphylaxis, 07/10/17) ketorolac (Verified Allergy, Severe, Anaphylaxis, 07/10/17) ibuprofen (Unverified Allergy, Intermediate, HIVES, FACIAL SWELLING., 07/10/17) tramadol (Unverified Allergy, Intermediate, HIVES, 07/10/17) latex (Unverified Allergy, Unknown, 07/10/17) penicillin G (Unverified Allergy, Unknown, HIVES, 07/10/17) prochlorperazine (Unverified Allergy, Unknown, HIVES, 07/10/17) sumatriptan (Unverified Adverse Reaction, Severe, VOMITING PASSED OUT, 07/10/17 ) Review of Systems All other ROS: ROS reviewed as documented in chart Exam I&O / VS Vital Signs Date Time Temp Pulse Resp B/P (MAP) Pulse Ox O2 Delivery O2 Flow Rate FiO2 07/15/17 07:47 98.5 80 20 103/65 (78) 97 07/15/17 04:35 98.2 79 18 106/68 (81) 98 07/15/17 00:40 98.2 71 18 104/53 (70) 95 07/14/17 20:02 98.3 80 19 99/56 (70) 98 07/14/17 16:00 98.0 84 16 123/75 (91) 99 07/14/17 12:27 98.2 86 16 118/70 (86) 96 General: Alert and Oriented, No acute distress Eye: EOMI Respiratory: Non-labored respirations Cardiology: Normal rate Musculoskeletal: ROM Neurologic: Alert, Oriented, Normal sensory, Normal motor, No focal defects Psychiatric: Cooperative, Appropriate mood & affect, Normal judgement Exam Comments ox 3, pleasant, calm, od- no light/finger perception, os peripheral vision loss able to see centrally, face sym, no focal weakness Problem Qualifiers (1) Migraine: Raffy Johnson MD Jul 15, 2017 09:33
[2017-07-15] MEDS: ACETAMINOPHEN 325 MG TAB PO PRN (10:49)
[2017-07-15] MEDS: MECLIZINE HCL 25 MG TAB PO PRN (10:50)
[2017-07-15] MEDS ORDERED: ONDANSETRON HCL 4 MG/2 ML VIAL IVP PRN (11:15)
[2017-07-15] MEDS ORDERED: MAGNESIUM HYDROXIDE SUSP 30 ML CUP PO PRN (11:15)
[2017-07-15] MEDS ORDERED: SENNOSIDES 8.6 MG TAB PO PRN (11:15)
[2017-07-15] MEDS ORDERED: ACETAMINOPHEN 325 MG TAB PO PRN ×2 (11:15)
[2017-07-15] MEDS ORDERED: NALOXONE HCL 0.4 MG/ML AMP IV PUSH PRN (11:15)
[2017-07-15] MEDS ORDERED: BISACODYL 10 MG SUPP RECTAL PRN (11:15)
[2017-07-15] MEDS ORDERED: METOCLOPRAMIDE HCL 10 MG/2 ML VIAL IV PUSH PRN (11:15)
[2017-07-15] MEDS ORDERED: LACTULOSE SYRUP 20 GM/30 ML CUP PO PRN (11:15)
[2017-07-15] MEDS ORDERED: MORPHINE SULFATE 2 MG/ML INJ IV PUSH PRN (11:15)
[2017-07-15] MEDS ORDERED: oxyCODONE/ACETAMINOPHEN 5 MG/325 MG TAB PO PRN (11:15)
[2017-07-15 12:13] VITALS: BP 125/72; PULSE 85; RESP 20; TEMP 98.2; O2SAT 95
--- NOTE | 2017-07-15 15:27 | HHI.PR ---
Subjective Remarks 32-year-old female with past medical history significant for pseudotumor cerebri , neurologist is Dr. Haddad, presents to the emergency department for evaluation of increased head pressure 2 days. The patient reports she has complete vision loss in her right eye and her left eye has blurry vision. She complains of constant dizziness with associated nausea/vomiting. She reports that she came to the emergency department yesterday for evaluation of these symptoms and returned home because she wanted to go to work. At work the symptoms became so severe that she called her neurologist office who recommended she come to the emergency department for further evaluation and an LP. The patient denies any fever/chills. Denies any chest pain or shortness of breath. Denies any additional lateralizing signs/symptoms. 3-18 Patient says that headache is overall better than on admission. Denies any chest pain or shortness of breath. 3-19 This morning patient reports that headache continues. Denies any chest pain or shortness of breath. 3-20 still complaining of headaches no sob or chest pain seen by neurology and neurosurgery may need shunt in future having visual issues still Start oral pain medications Objective Vitals Vital Signs Date Time Temp Pulse Resp B/P (MAP) Pulse Ox O2 Delivery O2 Flow Rate FiO2 07/15/17 12:13 98.2 85 20 125/72 (89) 95 07/15/17 07:47 98.5 80 20 103/65 (78) 97 07/15/17 04:35 98.2 79 18 106/68 (81) 98 07/15/17 00:40 98.2 71 18 104/53 (70) 95 07/14/17 20:02 98.3 80 19 99/56 (70) 98 07/14/17 16:00 98.0 84 16 123/75 (91) 99 I/O 07/14/17 07/14/17 07/14/17 07/15/17 07/15/17 07/15/17 07:00 15:00 23:00 07:00 15:00 23:00 Intake Total 240 ml Balance 240 ml Intake Oral 240 ml # Voids 2 3 Result Diagram: 07/12/17 8621 07/12/17 2356 Other Results Laboratory Tests Test 07/12/17 23:56 White Blood Count 9.1 TH/MM3 Red Blood Count 4.21 MIL/MM3 Hemoglobin 11.7 GM/DL Hematocrit 35.3 % Mean Corpuscular Volume 83.8 FL Mean Corpuscular Hemoglobin 27.8 PG Mean Corpuscular Hemoglobin Concent 33.1 % Red Cell Distribution Width 13.5 % Platelet Count 269 TH/MM3 Mean Platelet Volume 7.8 FL Neutrophils (%) (Auto) 47.7 % Lymphocytes (%) (Auto) 41.5 % Monocytes (%) (Auto) 8.1 % Eosinophils (%) (Auto) 2.3 % Basophils (%) (Auto) 0.4 % Neutrophils # (Auto) 4.3 TH/MM3 Lymphocytes # (Auto) 3.8 TH/MM3 Monocytes # (Auto) 0.7 TH/MM3 Eosinophils # (Auto) 0.2 TH/MM3 Basophils # (Auto) 0.0 TH/MM3 CBC Comment DIFF FINAL Differential Comment Erythrocyte Sedimentation Rate 30 mm/hr Blood Urea Nitrogen 11 MG/DL Creatinine 0.72 MG/DL Random Glucose 100 MG/DL Calcium Level 8.6 MG/DL Sodium Level 141 MEQ/L Potassium Level 4.1 MEQ/L Chloride Level 105 MEQ/L Carbon Dioxide Level 27.4 MEQ/L Anion Gap 9 MEQ/L Estimat Glomerular Filtration Rate 94 ML/MIN C-Reactive Protein 0.64 MG/DL Thyroid Stimulating Hormone 3rd Gen 1.920 uIU/ML Imaging Last Impressions Brain CT 07/13/17 0000 Signed Impressions: Service Date/Time: Thursday, July 13, 2017 20:52 - CONCLUSION: 1. Negative CTV of the brain. Daniel Zuniga MD Lumbar Puncture Fluoroscopy 07/12/17 0000 Signed Impressions: Service Date/Time: Wednesday, July 12, 2017 13:29 - CONCLUSION: Uncomplicated fluoroscopically guided lumbar puncture. Arpan Torres MD Head/Brain Mag Res Venography 07/12/17 0000 Signed Impressions: Service Date/Time: Wednesday, July 12, 2017 17:31 - CONCLUSION: 1. There is an area of signal dropout at the junction of the left transverse sinus and the torcula. This is new when compared to previous study dated 12/01/16. There is some motion artifact in this area. This area does appear patent on the sagittal source images and as such this may be artifactual. There is no evidence of edema within the brain parenchyma adjacent to this area. Arpan Torres MD Brain MRI 07/12/17 0000 Signed Impressions: Service Date/Time: Wednesday, July 12, 2017 17:31 - CONCLUSION: 1. Normal examination. Stable compared to prior dated 12/01/16. Arpan Torres MD Objective Remarks GENERAL: Awake and alert talkative oriented 3 and cooperative states she has a headache SKIN: Warm and dry. HEAD: Atraumatic. Normocephalic. EYES: Pupils equal and round. No scleral icterus. No injection or drainage. ENT: No nasal bleeding or discharge. Mucous membranes pink and moist. NECK: Trachea midline. No JVD. Supple CARDIOVASCULAR: Regular rate and rhythm. S1-S2 no S3-S4 RESPIRATORY: No accessory muscle use. Clear to auscultation. Breath sounds equal bilaterally. GASTROINTESTINAL: Abdomen soft, non-tender, nondistended. Hepatic and splenic margins not palpable. Obese MUSCULOSKELETAL: Extremities without clubbing, cyanosis, or edema. No obvious deformities. NEUROLOGICAL: Awake and alert. No obvious cranial nerve deficits. Motor grossly within normal limits. Five out of 5 muscle strength in the arms and legs. Normal speech. PSYCHIATRIC: Appropriate mood and affect; insight and judgment normal. Procedures (1) Pseudotumor cerebri (2) Headache Post Procedure Diagnosis: (1) Pseudotumor cerebri (2) Headache Procedure Date: Jul 12, 2017 Supervising Radiologist: Arpan Torres Estimated blood loss: none Anesthesia: Local Plan of Activity Patient to Unit: Nursing Unit Patient Condition: Good Additional Comments: Opening pressure 27cm/H2O 30cc of clear CSF removed. Pt tolerated the procedure well. Full dictated report to follow See PACS Report for procedural detail/treatment Medications and IVs Current Medications Diphenhydramine HCl (Benadryl Inj) 25 mg ONCE ONCE IV PUSH Last administered on 07/11/17at 21:25; Start 07/11/17 at 20:45; Stop 07/11/17 at 20:46; Status DC Metoclopramide HCl 10 mg/Sodium Chloride 52 ml @ 104 mls/hr ONCE ONCE IV ; Start 07/11/17 at 20:45; Stop 07/11/17 at 21:14; Status DC Morphine Sulfate (Morphine Inj) 4 mg ONCE ONCE IV PUSH Last administered on at 21:21; Start 07/11/17 at 20:45; Stop 07/11/17 at 20:46; Status DC Morphine Sulfate (Morphine Inj) 4 mg ONCE ONCE IV PUSH Last administered on 22:16; Start 07/11/17 at 22:15; Stop 07/11/17 at 22:16; Status DC Ondansetron HCl (Zofran Inj) 4 mg ONCE ONCE IV PUSH Last administered on at 22:15; Start 07/11/17 at 22:15; Stop 07/11/17 at 22:16; Status DC Diazepam (Valium) 10 mg ONCE ONCE PO Last administered on 07/11/17at 22:15; Start 07/11/17 at 22:15; Stop 07/11/17 at 22:16; Status DC Sodium Chloride (NS Flush) 2 ml UNSCH PRN IV FLUSH FLUSH AFTER USING IV ACCESS Last administered on 07/14/17at 18:00; Start 07/12/17 at 00:00 Sodium Chloride (NS Flush) 2 ml BID IV FLUSH Last administered on 07/14/17 21: 20; Start 07/12/17 at 09:00 Acetaminophen (Tylenol) 650 mg Q4H PRN PO TEMP > 100.4, headache Last administered on 07/15/17 10:49; Start 07/12/17 at 00:00; Stop 07/15/17 at 11:45 ; Status DC Ondansetron HCl (Zofran Inj) 4 mg Q6H PRN IVP NAUSEA OR VOMITING Last administered on 07/14/17at 11:01; Start 07/12/17 at 00:00; Stop 07/15/17 at 11:45 ; Status DC Naloxone HCl (Narcan Inj) 0.4 mg UNSCH PRN IV PUSH SEE LABEL COMMENTS; Start at 00:00; Stop 07/15/17 at 11:45; Status DC Acetazolamide (Diamox Sequels) 500 mg TID PO Last administered on 07/15/17at 13 :56; Start 07/12/17 at 09:00 Furosemide (Lasix) 40 mg BID PO Last administered on 07/15/17at 08:36; Start at 09:00 Meclizine HCl (Antivert) 25 mg TID PRN PO VERTIGO Last administered on at 10:50; Start 07/12/17 at 00:00 Metoclopramide HCl (Reglan) 10 mg QID PO Last administered on 07/15/17at 13:56; Start 07/12/17 at 09:00 Potassium Chloride (KCl) 20 meq DAILY PO Last administered on 07/15/17at 08:37; Start 07/12/17 at 09:00 Topiramate (Topamax) 100 mg BID PO Last administered on 07/12/17at 09:02; Start 07/12/17 at 09:00; Stop 07/12/17 at 12:37; Status DC Morphine Sulfate (Morphine Inj) 4 mg Q3H PRN IV PUSH pain 6-10 Last administered on 07/15/17 08:46; Start 07/12/17 at 01:45; Stop 07/15/17 at 11:44 ; Status DC Sodium Chloride 1,000 ml @ 100 mls/hr Q10H IV Last administered on 07/12/17at 02:41; Start 07/12/17 at 01:42; Stop 07/12/17 at 11:41; Status DC Topiramate (Topamax) 125 mg BID PO Last administered on 07/15/17at 08:39; Start 07/12/17 at 21:00 Lorazepam (Ativan Inj) 1 mg NOW ONCE IV Last administered on 07/12/17at 17:06; Start 07/12/17 at 16:15; Stop 07/12/17 at 16:16; Status DC Lorazepam (Ativan Inj) 1 mg UNSCH X1 PRN IV SEE LABEL COMMENTS; Start 07/12/17 at 16:15; Stop 07/13/17 at 16:14; Status DC Iohexol (Omnipaque 350 Inj) 98 ml STK-MED ONCE IVCONTRAST Last administered on 07/13/17at 21:05; Start 07/13/17 at 21:05; Stop 07/13/17 at 21:23; Status DC Acetaminophen (Tylenol) 650 mg Q4H PRN PO TEMP > 100.4; Start 07/15/17 at 11:15 Ondansetron HCl (Zofran Inj) 4 mg Q6H PRN IVP NAUSEA OR VOMITING; Start at 11:15 Metoclopramide HCl (Reglan Inj) 5 mg Q6H PRN IV PUSH NAUSEA OR VOMITING; Start 07/15/17 at 11:15; Stop 07/15/17 at 11:44; Status DC Acetaminophen (Tylenol) 650 mg Q6H PRN PO PAIN SCALE 1 TO 2; Start 07/15/17 at 11:15 Oxycodone/ Acetaminophen (Percocet 5-325 Mg) 1 tab Q6H PRN PO PAIN SCALE 3 TO 5 Last administered on 07/15/17at 13:59; Start 07/15/17 at 11:15 Oxycodone/ Acetaminophen (Percocet 10-325 Mg) 1 tab Q6H PRN PO PAIN SCALE 6 TO 10; Start 07/15/17 at 11:15 Morphine Sulfate (Morphine Inj) 2 mg Q3H PRN IV PUSH Pain 3-5; if unable to take PO; Start 07/15/17 at 11:15 Morphine Sulfate (Morphine Inj) 4 mg Q3H PRN IV PUSH Pain 6-10;if unable to take PO; Start 07/15/17 at 11:15 Naloxone HCl (Narcan Inj) 0.4 mg UNSCH PRN IV PUSH SEE LABEL COMMENTS; Start at 11:15 Senna/Docusate Sodium (Yojana-Colace) 1 tab BID PO ; Start 07/15/17 at 21:00 Magnesium Hydroxide (Milk Of Magnesia Liq) 30 ml Q12H PRN PO Mild constipation ; Start 07/15/17 at 11:15 Sennosides (Senokot) 17.2 mg Q12H PRN PO Moderate constipation; Start 07/15/17 at 11:15 Bisacodyl (Dulcolax Supp) 10 mg DAILY PRN RECTAL SEVERE CONSITIPATION; Start at 11:15 Lactulose (Lactulose Liq) 30 ml DAILY PRN PO SEVERE CONSITIPATION; Start at 11:15 A/P Assessment and Plan Neurosurgery eval ongoing. Opening pressure 27. MRV without venous thrombus. Pending outside ophthalmology paperwork. Appreciate remediation consultant assistance.\ //Pseudotumor cerebri Patient admitted for observation with plan for LP with IR tomorrow Anticipate DC after procedure Neurologist is Dr. Haddad = Neurosurgery evaluating for possible [employer] shunt Consult ophthalmology to evaluate for optic nerve fenestration. Discussed with Dr. French and ophthalmology. Waiting on outpatient visual field testing. Optic nerve fenestration evaluation will need to be done at tertiary care center MORBID OBESITY weight loss recommended NONCOMPLIANCE due to insurance CHRONIC HEADACHES/MIGRAINE pain control as needed HYPERTENSION Discharge Planning Pending neurological and neurosurgical clearance Ang Shelton DO Jul 15, 2017 15:27
[2017-07-15 16:57] VITALS: BP 99/62; PULSE 82; RESP 20; TEMP 98.8; O2SAT 97
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
[2017-07-15 20:00] VITALS: BP_SYST 113; BP_SYST 117; BP_DIAS 53; BP_DIAS 58; PULSE 81; PULSE 85; RESP 18; RESP 20; TEMP 97.8; TEMP 99.1; O2SAT 92; O2SAT 95
[2017-07-15] MEDS: DOCUSATE SODIUM 50 MG/SENNA 8.6 MG TAB PO SCH (21:39)
[2017-07-16] VITALS: BP 112/68; PULSE 57; RESP 18; TEMP 98.2; O2SAT 99
[2017-07-16 04:00] VITALS: BP 129/79; PULSE 71; RESP 20; TEMP 97.9; O2SAT 97
[2017-07-16 07:35] VITALS: BP 107/72; PULSE 82; RESP 20; TEMP 98.3; O2SAT 99
[2017-07-16] MEDS: MORPHINE SULFATE 4 MG/ML INJ IV PUSH PRN ×2 (08:30→11:55)
[2017-07-16] MEDS: METOCLOPRAMIDE HCL 10 MG TAB PO SCH ×4 (08:34→20:12)
[2017-07-16] MEDS: POTASSIUM CHLORIDE 20 MEQ CONTROLLED RELEASE TAB PO SCH (08:34)
[2017-07-16] MEDS: acetaZOLAMIDE SEQUELS 500 MG SUSTAINED RELEASE CAP PO SCH ×3 (08:34→18:29)
[2017-07-16] MEDS: FUROSEMIDE 40 MG TAB PO SCH ×2 (08:34→20:12)
--- NOTE | 2017-07-16 08:42 | HHI.PR ---
Review/Management Diagnosis/Plan: (1) Pseudotumor cerebri ICD Codes: G93.2 - Benign intracranial hypertension Status: Chronic Plan: on 3 medications progressive vision loss mri/mrv brain- nml recs persistent reyes, visual symptoms persist but fortunately able to text and read texts on phone topamax increased to 150mg bid nsx eval for shunt per nsx with no insurance, [facility] eval may be challenging wt loss/exercise pain control (2) Migraine ICD Codes: G43.909 - Migraine, unspecified, not intractable, without status migrainosus Status: Chronic Subjective Subjective Comments No acute events reported + headache No chest pain No dyspnea Active Medications Current Medications Medications (Trade) Dose Ordered Sig/Jd Route Start Time Stop Time Status Last Admin (NS Flush) 2 ml UNSCH PRN IV FLUSH 07/12/17 00:00 07/14/17 18:00 (NS Flush) 2 ml BID IV FLUSH 07/12/17 09:00 07/15/17 21:39 (Diamox Sequels) 500 mg TID PO 07/12/17 09:00 07/15/17 17:39 (Lasix) 40 mg BID PO 07/12/17 09:00 07/15/17 21:39 (Antivert) 25 mg TID PRN PO 07/12/17 00:00 07/15/17 10:50 (Reglan) 10 mg QID PO 07/12/17 09:00 07/15/17 21:40 (KCl) 20 meq DAILY PO 07/12/17 09:00 07/15/17 08:37 (Topamax) 125 mg BID PO 07/12/17 21:00 07/15/17 21:40 (Tylenol) 650 mg Q4H PRN PO 07/15/17 11:15 (Zofran Inj) 4 mg Q6H PRN IVP 07/15/17 11:15 (Tylenol) 650 mg Q6H PRN PO 07/15/17 11:15 (Percocet 5-325 Mg) 1 tab Q6H PRN PO 07/15/17 11:15 07/15/17 13:59 (Percocet 10-325 Mg) 1 tab Q6H PRN PO 07/15/17 11:15 (Morphine Inj) 2 mg Q3H PRN IV PUSH 07/15/17 11:15 (Morphine Inj) 4 mg Q3H PRN IV PUSH 07/15/17 11:15 07/15/17 21:45 (Narcan Inj) 0.4 mg UNSCH PRN IV PUSH 07/15/17 11:15 (Yojana-Colace) 1 tab BID PO 07/15/17 21:00 07/15/17 21:39 (Milk Of Magnesia Liq) 30 ml Q12H PRN PO 07/15/17 11:15 (Senokot) 17.2 mg Q12H PRN PO 07/15/17 11:15 (Dulcolax Supp) 10 mg DAILY PRN RECTAL 07/15/17 11:15 (Lactulose Liq) 30 ml DAILY PRN PO 07/15/17 11:15 Allergies Allergies Coded Allergies Sulfa (Sulfonamide Antibiotics) (Unverified Allergy, Severe, RASH, 07/10/17) amoxicillin (Unverified Allergy, Severe, Anaphylaxis, 07/10/17) ketorolac (Verified Allergy, Severe, Anaphylaxis, 07/10/17) ibuprofen (Unverified Allergy, Intermediate, HIVES, FACIAL SWELLING., 07/10/17) tramadol (Unverified Allergy, Intermediate, HIVES, 07/10/17) latex (Unverified Allergy, Unknown, 07/10/17) penicillin G (Unverified Allergy, Unknown, HIVES, 07/10/17) prochlorperazine (Unverified Allergy, Unknown, HIVES, 07/10/17) sumatriptan (Unverified Adverse Reaction, Severe, VOMITING PASSED OUT, 07/10/17 ) Review of Systems All other ROS: ROS reviewed as documented in chart Exam I&O / VS Vital Signs Date Time Temp Pulse Resp B/P (MAP) Pulse Ox O2 Delivery O2 Flow Rate FiO2 07/16/17 07:35 98.3 82 20 107/72 (84) 99 07/16/17 04:00 97.9 71 20 129/79 (96) 97 07/16/17 00:00 98.2 57 18 112/68 (83) 99 07/15/17 20:00 97.8 81 18 113/53 (73) 92 07/15/17 16:57 98.8 82 20 99/62 (74) 97 07/15/17 12:13 98.2 85 20 125/72 (89) 95 General: Alert and Oriented, No acute distress Eye: EOMI Respiratory: Non-labored respirations Cardiology: Normal rate Musculoskeletal: ROM Neurologic: Alert, Oriented, Normal sensory, Normal motor, No focal defects Psychiatric: Cooperative, Appropriate mood & affect, Normal judgement Exam Comments ox 3, was texting on her phone when i walked into her room,, od- no light/ finger perception, os peripheral vision loss able to see centrally, face sym, no focal weakness Problem Qualifiers (1) Migraine: Raffy Johnson MD Jul 16, 2017 08:42
[2017-07-16] MEDS: DOCUSATE SODIUM 50 MG/SENNA 8.6 MG TAB PO SCH ×2 (09:00→21:00)
[2017-07-16] MEDS: SODIUM CHLORIDE 0.9% FLUSH 10 ML FLUSH IV FLUSH SCH ×2 (09:00→21:00)
[2017-07-16] MEDS: TOPIRAMATE 100 MG TAB PO SCH ×2 (10:00→20:12)
[2017-07-16] MEDS: oxyCODONE/ACETAMINOPHEN 10 MG/325 MG TAB PO PRN ×3 (10:54→23:12)
[2017-07-16 12:04] VITALS: BP 127/82; PULSE 76; RESP 20; TEMP 98.1; O2SAT 98
[2017-07-16] MEDS ORDERED: FLUCONAZOLE 100 MG TAB PO ONE (14:45)
[2017-07-16] MEDS ORDERED: PILL SPLITTER OTHER PRN (15:00)
[2017-07-16] MEDS: HYDROmorphone HCL PF 2 MG/ML VIAL IV PUSH PRN ×2 (15:18→20:10)
--- NOTE | 2017-07-16 15:19 | HHI.NSPN ---
(Chandrakant Yeung) History Chief Complaint: Headache and worsening right vision (Chandrakant Yeung) Interval History 07/12: 32-year-old female with history of pseudotumor cerebri presents back to the emergency room with complaint of persistent headache and worsening vision. She has had multiple visits to the emergency room in the hospital throughout 2017. She underwent 6 lumbar punctures from December 02, 2016. April 10, 2017 with opening pressures varying from a low of 13.5 most recently to high 28 on . She has been seen by neurology multiple times as an inpatient and followed as an outpatient. She was seen by neurosurgery for evaluation in 2017. She has also been seen by neurosurgery, Dr. Polo at [facility], and was apparently being considered for a ventriculoperitoneal shunt placement but did not ultimately have this performed. She states that he is leaving his practice. She has not been referred to another neurosurgeon. Neurosurgery recommendations in November 2016 were to proceed with evaluation for a optic nerve fenestration. She has not proceeded with this recommendation, apparently due to insurance reasons. She complains of progressive visual loss in the past 1-2 weeks. 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 She is followed by Dr. Arndt and states that she just had visual field testing done a couple months ago. She has been following with him for over a year. 07/14: The patient is awake and alert laying in bed when seen watching TV. She says that it feels like there is a rubber pain behind the right eye that is about to break. She reports that her vision and headache improved briefly but is now getting worse again. She does say that they are not as bad as when she first came in. She denies any pain, numbness or tingling to the extremities. Sensorimotor function stable. Visual field seems to be constricted bilaterally upon examination. 07/15: When seen this afternoon the patient is awake and alert in bed. She states that her headache is worse due to the barometric pressure of the storms. She also said her vision seemed to be worse. She denied any pain, numbness, tingling or weakness to the extremities. Her sensorimotor exam is stable. The left visual field does seem to be a little better than the right. 07/16: This afternoon the patient is awake in bed talking with Nursing. She says she is doing "So-so." She reports that she did have a severe headache earlier that was improving after medication. She does say that the vision in the right eye is worse. She denies any pain, numbness, tingling or weakness to the extremities. There is no change in her sensorimotor exam. She is not able to see as far today as yesterday when examined. (Chandrakant Yeung) Exam Results 07/14/17 07/14/17 07/15/17 07/15/17 07/16/17 07/16/17 06:00 18:00 06:00 18:00 06:00 18:00 Intake Total 240 ml Output Total 750 ml Balance 240 ml -750 ml Intake Oral 240 ml Output Urine Total 750 ml # Voids 2 3 Vital Signs Date Time Temp Pulse Resp B/P (MAP) Pulse Ox O2 Delivery O2 Flow Rate FiO2 07/16/17 12:04 98.1 76 20 127/82 (97) 98 07/16/17 07:35 98.3 82 20 107/72 (84) 99 07/16/17 04:00 97.9 71 20 129/79 (96) 97 07/16/17 00:00 98.2 57 18 112/68 (83) 99 07/15/17 20:00 97.8 81 18 113/53 (73) 92 07/15/17 16:57 98.8 82 20 99/62 (74) 97 07/15/17 12:13 98.2 85 20 125/72 (89) 95 07/15/17 07:47 98.5 80 20 103/65 (78) 97 07/15/17 04:35 98.2 79 18 106/68 (81) 98 07/15/17 00:40 98.2 71 18 104/53 (70) 95 07/14/17 20:02 98.3 80 19 99/56 (70) 98 07/14/17 16:00 98.0 84 16 123/75 (91) 99 07/14/17 12:27 98.2 86 16 118/70 (86) 96 07/14/17 08:00 98.5 77 18 115/67 (83) 98 07/14/17 04:51 99.0 75 17 107/64 (78) 97 07/14/17 00:34 98.4 74 17 113/63 (80) 95 07/13/17 20:14 98.2 83 17 153/82 (105) 96 07/13/17 16:32 102/57 (72) 07/13/17 16:24 98.6 80 18 57/ 96 (Chandrakant Yeung) Physical Examination GENERAL: Awake & alert in bed watching TV. Normal affect. Readily interacts. No apparent distress. HEENT: Normocephalic, atraumatic. PERRLA 3 mm brisk, EOMI. MMM & pink, tongue midline to protrusion. MUSCULOSKELETAL: HOUSE spontaneously & purposefully. Extremities NTTP. NEUROLOGICAL: AAOx3. Speech clear & appropriate. Follows simple commands. PERRLA 3 mm brisk, EOMI. Tongue midline to protrusion. Visual hyatt remain significantly constricted bilaterally with only a small central area of vision to confrontation with the left minimally better than the right, patient does not appear to be able to see objects as far away as yesterday. This may be related to patient not opening her eyes fully upon examination. Decrease sensation to the outside of the left foot chronically w/o change, o/w sensation is intact to light touch to all extremities. Motor strength is 5/5 to all major flexion & extension muscle groups of the extremities. (Chandrakant Yeung) Physical Examination GENERAL: Awake & alert in bed watching TV. Normal affect. Readily interacts. No apparent distress. HEENT: Normocephalic, atraumatic. PERRLA 3 mm brisk, EOMI. MMM & pink, tongue midline to protrusion. MUSCULOSKELETAL: HOUSE spontaneously & purposefully. Extremities NTTP. NEUROLOGICAL: AAOx3. Speech clear & appropriate. Follows simple commands. PERRLA 3 mm brisk, EOMI. Tongue midline to protrusion. Visual hyatt remain significantly constricted bilaterally with only a small central area of vision to confrontation with the left minimally better than the right, patient does not appear to be able to see objects as far away as yesterday. This may be related to patient not opening her eyes fully upon examination. Decrease sensation to the outside of the left foot chronically w/o change, o/w sensation is intact to light touch to all extremities. Motor strength is 5/5 to all major flexion & extension muscle groups of the extremities. (Rahul Tillman MD) Medical Decision Making Impression and Plan Impression: History of pseudotumor cerebri with complaint of persistent headaches, progressive visual deficits. She had a lumbar puncture yesterday on 07/12/17. Opening pressure is not recorded in the the patient states that she was told the opening pressure was 28. Dr Cerrato advised her that the primary indication for an optic nerve fenestration or shunt procedure would be significant and progressive visual loss despite weight loss and medications. The patient is doing fairly well seen. Her headache is improving after medication. Sensorimotor intact and essentially stable. Visual hyatt appear to be significantly constricted bilaterally with a small central area of vision to confrontation w/left being minimally better. She is not able to discern objects as far away as yesterday, but part of this may be r/t her not completely opening the eye upon examination. CT brain unremarkable. Plan: Primary management per Hospitalist. Neuro checks. Patient desires to be evaluated at [facility] for optic nerve fenestration evaluation once she has her insurance in place. 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 Otherwise evaluation for optic nerve fenestration as previously recommended would be prudent. (Chandrakant Yeung) Attending Statement The exam, history, and the medical decision-making described in the above note were completed with the assistance of the mid-level provider. I reviewed and agree with the findings presented. I attest that I had a [id number] encounter with the patient on the same day, and personally performed and documented my assessment and findings in the medical record. (Rahul Tillman MD) Chandrakant Yeung Jul 16, 2017 15:19 Rahul Tillman MD Jul 18, 2017 14:28
[2017-07-16 15:41] LABS: AUTOMATED NEUTROPHIL # 5.8 TH/MM3 (1.8-7.7); BASOPHIL # 0.1 TH/MM3 (0-0.2); EOSINOPHIL # 0.3 TH/MM3 (0-0.4); EOSINOPHIL % 2.6 % (0.0-4.0); HEMATOCRIT 38.7 % (35.0-46.0); HEMOGLOBIN 13.1 GM/DL (11.6-15.3); LYMPH % 34.2 % (9.0-44.0); LYMPHOCYTE # 3.6 TH/MM3 (1.0-4.8); MEAN CELL VOLUME 81.8 FL (80.0-100.0); MEAN CORPUSCULAR HEMOGLOBIN 27.7 PG (27.0-34.0); MEAN CORPUSCULAR HGB CONC 33.8 % (32.0-36.0); MEAN PLATELET VOLUME 8.6 FL (7.0-11.0); MONO % 7.9 % (0.0-8.0); MONOCYTE # 0.8 TH/MM3 (0-0.9); NEUT % 54.3 % (16.0-70.0); PLATELET COUNT 312 TH/MM3 (150-450); RED BLOOD COUNT 4.73 MIL/MM3 (4.00-5.30); RED CELL DISTRIBUTION WIDTH 13.3 % (11.6-17.2); WHITE BLOOD COUNT 10.7 TH/MM3 (4.0-11.0)
[2017-07-16 15:57] VITALS: BP 123/60; PULSE 81; RESP 20; TEMP 98; O2SAT 98
[2017-07-16 16:09] LABS: ALBUMIN 3.4 GM/DL (3.4-5.0); ALT (GPT) 23 U/L (10-53); AST (GOT) 12 U/L (15-37); BICARBONATE 23.5 MEQ/L (21.0-32.0); BLOOD UREA NITROGEN 17 MG/DL (7-18); CALCIUM 8.7 MG/DL (8.5-10.1); CHLORIDE 106 MEQ/L (98-107); CREATININE 0.83 MG/DL (0.50-1.00); GLOMERULAR FILTRATION RATE 80 ML/MIN (>89); GLUCOSE,RANDOM 98 MG/DL (74-106); PHOSPHORUS 3.4 MG/DL (2.5-4.9); SODIUM (NA) 140 MEQ/L (136-145)
[2017-07-16 16:18] LABS: ALKALINE PHOSPHATASE 79 U/L (45-117); TOTAL BILIRUBIN ADULT 0.2 MG/DL (0.2-1.0); TOTAL PROTEIN 7.5 GM/DL (6.4-8.2)
[2017-07-16 17:58] LABS: HEMOGLOBIN A1C 5.3 % (4.3-6.0)
--- NOTE | 2017-07-16 18:28 | HHI.PR ---
Subjective Remarks 32-year-old female with a history of pseudotumor cerebri, she has had progressive worsening of right eye pain with visual loss in that eye. She presented with this type of pain and has undergone evaluation by neurosurgery during this stay. Objective Vitals Vital Signs Date Time Temp Pulse Resp B/P (MAP) Pulse Ox O2 Delivery O2 Flow Rate FiO2 07/16/17 15:57 98.0 81 20 123/60 (81) 98 07/16/17 12:04 98.1 76 20 127/82 (97) 98 07/16/17 07:35 98.3 82 20 107/72 (84) 99 07/16/17 04:00 97.9 71 20 129/79 (96) 97 07/16/17 00:00 98.2 57 18 112/68 (83) 99 07/15/17 20:00 97.8 81 18 113/53 (73) 92 I/O 07/15/17 07/15/17 07/15/17 07/16/17 07/16/17 07/16/17 07:00 15:00 23:00 07:00 15:00 23:00 Intake Total 600 ml Output Total 750 ml Balance -750 ml 600 ml Intake Oral 600 ml Output Urine Total 750 ml # Voids 3 Result Diagram: 07/16/17 1511 07/16/17 1511 Objective Remarks GENERAL: Well-nourished, well-developed patient. SKIN: Warm and dry. HEAD: Normocephalic. EYES: No scleral icterus. No injection or drainage. NECK: Supple, trachea midline. No JVD or lymphadenopathy. CARDIOVASCULAR: Regular rate and rhythm without murmurs, gallops, or rubs. RESPIRATORY: Breath sounds equal bilaterally. No accessory muscle use. GASTROINTESTINAL: Abdomen soft, non-tender, nondistended. EXTREMITIES: No cyanosis, or edema. NEUROLOGICAL: Awake, alert, and oriented x 3. Non-focal. Procedures (1) Pseudotumor cerebri (2) Headache Post Procedure Diagnosis: (1) Pseudotumor cerebri (2) Headache Procedure Date: Jul 12, 2017 Supervising Radiologist: Arpan Torres Estimated blood loss: none Anesthesia: Local Plan of Activity Patient to Unit: Nursing Unit Patient Condition: Good Additional Comments: Opening pressure 27cm/H2O 30cc of clear CSF removed. Pt tolerated the procedure well. Full dictated report to follow See PACS Report for procedural detail/treatment A/P Problem List: (1) Pseudotumor cerebri ICD Code: G93.2 - Benign intracranial hypertension Status: Chronic (2) Papilledema of right eye ICD Code: H47.10 - Unspecified papilledema (3) Intractable headache ICD Code: R51 - Headache Status: Acute Assessment and Plan Pseudotumor cerebri Appreciate neurosurgery consult Recommendation is to have optic nerve fenestration performed up at [facility]. The patient can be considered after this. Primary concern at this point is to preserve the eye and save her vision. She had a lumbar puncture performed with management by neurology, appreciate care Appreciate ophthalmology assisting Vaginitis Single dose of Diflucan, will check urinalysis Chronic headaches Related to her primary condition. Pain control as needed. Discharge Planning Pending neurological and neurosurgical clearance Cosme Roberson MD Jul 16, 2017 18:28
[2017-07-16 18:40] LABS: BILIRUBIN, URINE NEG (NEG); BLOOD, URINE NEG (NEG); GLUCOSE,URINE NEG (NEG); KETONE, URINE NEG (NEG); NITRITE,URINE NEG (NEG); PH, URINE 5.5 (5.0-8.5); SQUAMOUS EPITHELIAL CELL URINE 15 /hpf (0-5); URINE COLOR YELLOW (YELLW/STRAW); URINE LEUKOCYTE ESTERASE MOD (NEG)
[2017-07-16 20:00] VITALS: BP_SYST 115; BP_SYST 133; BP_DIAS 78; BP_DIAS 83; PULSE 72; PULSE 86; RESP 18; RESP 20; TEMP 97.9; TEMP 98.2; O2SAT 97; O2SAT 98
[2017-07-17] VITALS: BP 123/77; PULSE 58; RESP 18; TEMP 97; O2SAT 94
[2017-07-17] MEDS: HYDROmorphone HCL PF 2 MG/ML VIAL IV PUSH PRN ×3 (00:34→08:39)
[2017-07-17] MEDS: MECLIZINE HCL 25 MG TAB PO PRN (00:40)
[2017-07-17] MEDS: oxyCODONE/ACETAMINOPHEN 10 MG/325 MG TAB PO PRN ×2 (03:05→10:53)
[2017-07-17] MEDS: SODIUM CHLORIDE 0.9% FLUSH 10 ML FLUSH IV FLUSH SCH (08:38)
[2017-07-17] MEDS: POTASSIUM CHLORIDE 20 MEQ CONTROLLED RELEASE TAB PO SCH (08:50)
[2017-07-17] MEDS: TOPIRAMATE 100 MG TAB PO SCH (08:50)
[2017-07-17] MEDS: FUROSEMIDE 40 MG TAB PO SCH (08:50)
[2017-07-17] MEDS: acetaZOLAMIDE SEQUELS 500 MG SUSTAINED RELEASE CAP PO SCH (08:52)
[2017-07-17] MEDS: DOCUSATE SODIUM 50 MG/SENNA 8.6 MG TAB PO SCH (08:53)
[2017-07-17] MEDS: METOCLOPRAMIDE HCL 10 MG TAB PO SCH (08:53)
[2017-07-17] MEDS: SODIUM CHLORIDE 0.9% FLUSH 10 ML FLUSH IV FLUSH PRN (08:54)
[2017-07-17 09:07] VITALS: BP 98/57; PULSE 75; RESP 16; TEMP 98.2; O2SAT 99
[2017-07-17] MEDS ORDERED: POTA-163 PO (10:39)
[2017-07-17] MEDS ORDERED: TOPA50TA7 PO (10:39)
[2017-07-17] MEDS ORDERED: OXYC1TAB36 PO (10:39)
[2017-07-17] MEDS ORDERED: ACETA500 PO (10:39)
[2017-07-17] MEDS ORDERED: FURO1TAB60 PO (10:39)
[2017-07-17] MEDS ORDERED: DIAZ5 PO (10:39)
[2017-07-17] MEDS ORDERED: MECL-62 PO (10:39)
--- NOTE | 2017-07-17 11:42 | HHI.DS ---
Discharge Summary Admission Date Jul 11, 2017 at 23:29 Discharge Date: Jul 17, 2017 Admitting Diagnosis pseudotumor cerebri (1) Pseudotumor cerebri ICD Code: G93.2 - Benign intracranial hypertension Status: Chronic (2) Papilledema of right eye ICD Code: H47.10 - Unspecified papilledema (3) Intractable headache ICD Code: R51 - Headache Status: Acute Procedures (1) Pseudotumor cerebri (2) Headache Post Procedure Diagnosis: (1) Pseudotumor cerebri (2) Headache Procedure Date: Jul 12, 2017 Supervising Radiologist: Arpan Torres Estimated blood loss: none Anesthesia: Local Plan of Activity Patient to Unit: Nursing Unit Patient Condition: Good Additional Comments: Opening pressure 27cm/H2O 30cc of clear CSF removed. Pt tolerated the procedure well. Full dictated report to follow See PACS Report for procedural detail/treatment Brief History - From Admission 32-year-old female with past medical history significant for pseudotumor cerebri , neurologist is Dr. Haddad, presents to the emergency department for evaluation of increased head pressure 2 days. The patient reports she has complete vision loss in her right eye and her left eye has blurry vision. She complains of constant dizziness with associated nausea/vomiting. She reports that she came to the emergency department yesterday for evaluation of these symptoms and returned home because she wanted to go to work. At work the symptoms became so severe that she called her neurologist office who recommended she come to the emergency department for further evaluation and an LP. The patient denies any fever/chills. Denies any chest pain or shortness of breath. Denies any additional lateralizing signs/symptoms. CBC/BMP: 07/16/17 1511 07/16/17 1511 Significant Findings Laboratory Tests Test 07/16/17 15:11 07/16/17 18:00 Aspartate Amino Transf (AST/SGOT) 12 U/L (15-37) Potassium Level 3.4 MEQ/L (3.5-5.1) Estimat Glomerular Filtration Rate 80 ML/MIN (>89) Urine Turbidity HAZY (CLEAR) Urine Leukocyte Esterase MOD (NEG) Urine RBC 4 /hpf (0-3) PE at Discharge GENERAL: Well-nourished, well-developed patient. SKIN: Warm and dry. HEAD: Normocephalic. EYES: No scleral icterus. No injection or drainage. NECK: Supple, trachea midline. No JVD or lymphadenopathy. CARDIOVASCULAR: Regular rate and rhythm without murmurs, gallops, or rubs. RESPIRATORY: Breath sounds equal bilaterally. No accessory muscle use. GASTROINTESTINAL: Abdomen soft, non-tender, nondistended. EXTREMITIES: No cyanosis, or edema. NEUROLOGICAL: Awake, alert, and oriented x 3. Non-focal. Hospital Course 32F with h/o pseudotumor cerebri and 40 lumbar punctures for relief of pressure. She underwent another LP 2 days ago, with relief of her symptoms. She admits she delays her care because of lack of insurance and job/income demands to support her family. She now has a good job and is expecting insurance to begin within 6 weeks. The majority consensus is that she would benefit greatly from a [employer] shunt, but neurosurgery has determined that that optic nerve fenestration at [facility] is the primary treatment plan and [employer] shunt should follow if needed. Due to her lack of insurance she is unable to go to [facility] at this time. Since she is also not getting a [employer] shunt at this time, she has requested that she be discharged home today so that she can go to work at 1pm this afternoon. I've encouraged her to not wait long before coming back to the ER for therapeutic lumbar punctures. Once she has active coverage, she will be able to consult with a neurosurgeon on an outpatient basis and request the [employer] shunt that she desires to have placed. I've encouraged her to have this issue addressed within the next 1-2 months if possible. Until then, therapeutic LP's to relieve ICP. She understands and is ready to go home. Pt Condition on Discharge: Fair Discharge Disposition: Discharge Home Discharge Time: <= 30 minutes Discharge Instructions DIET: Follow Instructions for: As Tolerated, No Restrictions Activities you can perform: Weight Bearing as Cosme Magana MD Jul 17, 2017 11:42
== END 2017-07-17 12:27 | disposition home or self-care (01) | DRG 103 ==
LOC: NEPC 16:01 → OBSVTOIN 23:29 → NEDA 23:29 → N05B 07-12 02:00
PROVIDERS: ADMIT Family Medicine; ATTEND Family Medicine
PROC: 009U3ZZ Drainage of Spinal Canal, Percutaneous Approach (ICD-10-PCS; principal; 2017-07-12)
PROC: B01BZZZ Fluoroscopy of Spinal Cord (ICD-10-PCS; 2017-07-12)
DX: G93.2 Benign intracranial hypertension (principal); H53.8 Other visual disturbances; H54.7 Unspecified visual loss; F17.210 Nicotine dependence, cigarettes, uncomplicated; G43.909 Migraine, unspecified, not intractable, without status migrainosus; J45.909 Unspecified asthma, uncomplicated
CPT/HCPCS: 62270; 70496; 70544; 70551; 77003; 80048; 80053; 81001; 83036; 83735; 84100; 84439; 84443; 85025; 85610; 85652; 85730; 86140; 96361; 96374; 96375; 96376; E0100; G0378; J1170; J1200; J2060; J2270; J2405; J7030; Q9967

== ENCOUNTER 2017-07-19 01:47 | Emergency (ER) | payer SELFPAY ==
[~2017-07-19] VITALS: Ht 154.9 cm; Wt 110.0 kg
[~2017-07-19 01:47] MED LIST changes: +DIAZ5 PO; +OXYC1TAB36 PO; -TYLE325T PO
[2017-07-19 01:52] VITALS: BP 127/93; PULSE 88; RESP 16; TEMP 98.1; O2SAT 100
[2017-07-19] MEDS ORDERED: ACETAMIN 325 MG/BUTALBITAL 50 MG/CAFFEINE 40 MG TAB PO ONE (06:45)
[2017-07-19] MEDS ORDERED: ACETAMINOPHEN/HYDROcodone 325 MG/5 MG TAB PO ONE (06:45)
--- NOTE | 2017-07-19 06:49 | RADRPT ---
EXAM DATE/TIME: 07/19/2017 06:32 [place] COMPARISON: No previous studies available for comparison. INDICATIONS : Trauma to ankle due to fall from a seizure. MEDICAL HISTORY : Hypertension. Renal calculi. Seizures. SURGICAL HISTORY : Cholecystectomy. Renal stents and lithotripsy ENCOUNTER: Initial ACUITY: 1 day PAIN SCORE: 5/10 LOCATION: Left ankle, lateral FINDINGS: Three view exam was performed of the left ankle. The bony structures are in normal alignment. No ev idence of fracture, dislocation, or soft tissue swelling. The ankle mortise is intact. No radiopaqu e foreign bodies are seen. Bony mineralization is normal. Degenerative changes are noted involving t he superior aspect of the talonavicular joint. CONCLUSION: 1. No acute fracture or dislocation. 2. Degenerative changes are noted involving the superior aspect of the talonavicular joint. Farooq Hallman MD on July 19, 2017 at 6:45 Board Certified Radiologist. This report was verified electronically.
--- NOTE | 2017-07-19 06:59 | PD ---
HPI Chief Complaint: Seizure Time Seen by Provider: 03:09 Travel History International Travel<30 days: No Contact w/Intl Traveler<30days: No Traveled to known affect area: No History of Present Illness HPI Patient has history of pseudotumor cerebri but with negative MRIs and negative normal LPs patient comes in saying she had a seizure tonight is unclear she is on Topamax but she has no obvious injury I reviewed all her labs and her LPs and her MRIs which were all negative that do not conclude that she has pseudotumor cerebri however she has been seen by Dr. Johnson the another neurologist and it is unclear what her exact diagnosis is she says at [facility] supposed to put a POP SINGER shunt and she has come multiple times to our hospital for LPs which always have opening pressures which are normal. then she mentions she hurt her ankle falling tonight. PFSH Past Medical History Hx Anticoagulant Therapy: No Arthritis: No Asthma: Yes Autoimmune Disease: No Blood Disorders: No Anxiety: No Depression: No Heart Rhythm Problems: No Cancer: No Cardiovascular Problems: No High Cholesterol: No Chemotherapy: No Chest Pain: No Congestive Heart Failure: No COPD: No Cerebrovascular Accident: No Diabetes: No Diminished Hearing: No Endocrine: No Gastrointestinal Disorders: No GERD: No Genitourinary: Yes (KIDNEY STONES) Headaches: Yes Hiatal Hernia: No Heparin Induced Thrombocytopen: No Hypertension: Yes (Idiopathic intracranial hypertension) Immune Disorder: No Implanted Vascular Access Dvce: No Kidney Stones: Yes Musculoskeletal: No Neurologic: Yes Psychiatric: No Reproductive: Yes (7 MISCARRIAGES) Respiratory: Yes Immunizations Current: Yes Migraines: Yes Radiation Therapy: No Renal Failure: No Seizures: No Sickle Cell Disease: No Sleep Apnea: No Thyroid Disease: No Ulcer: No ?: Not : 8 Para: 1 Miscarriage: 7 Dilation and Curettage (D&C): Yes (x3 ) Past Surgical History Abdominal Surgery: No AICD: No Arteriovenous Shunt: No Cardiac Surgery: No Section: Yes Cholecystectomy: Yes Ear Surgery: No Endocrine Surgery: No Eye Surgery: No Genitourinary Surgery: Yes (STENTS KIDNEYS, LITHOTRIPSIES) Gynecologic Surgery: No Hysterectomy: Yes Insulin Pump: No Joint Replacement: No Neurologic Surgery: No (lumbar punctures, 40x) Oral Surgery: No Pacemaker: No Thoracic Surgery: No Other Surgery: Yes (L KIDNEY (STENTS x 6) Social History Alcohol Use: No Tobacco Use: Yes (1 cigarette ) Substance Use: No Allergies-Medications (Allergen,Severity, Reaction): Coded Allergies: Sulfa (Sulfonamide Antibiotics) (Unverified Allergy, Severe, RASH, 07/20/17 ) amoxicillin (Unverified Allergy, Severe, Anaphylaxis, 07/20/17) ketorolac (Verified Allergy, Severe, Anaphylaxis, 07/20/17) anaphylaxis per patient ibuprofen (Unverified Allergy, Intermediate, HIVES, FACIAL SWELLING., 07/20) tramadol (Unverified Allergy, Intermediate, HIVES, 07/20/17) hives, sewll up latex (Unverified Allergy, Unknown, 07/20/17) penicillin G (Unverified Allergy, Unknown, HIVES, 07/20/17) prochlorperazine (Unverified Allergy, Unknown, HIVES, 07/20/17) sumatriptan (Unverified Adverse Reaction, Severe, VOMITING PASSED OUT, ) Reported Meds & Prescriptions Reported Meds & Active Scripts Active Valium (Diazepam) 5 Mg Tab 5 Mg PO BID PRN 30 Days Oxycodone-Acetaminophen 10-325 (Oxycodone HCl/Acetaminophen) 10 Mg-325 Mg Tablet 1 Tab PO Q6H PRN 30 Days Meclizine (Meclizine HCl) 25 Mg Tab 25 Mg PO TID PRN 30 Days Lasix (Furosemide) 40 Mg Tab 40 Mg PO BID 30 Days Diamox Sequels ER 12 HR (Acetazolamide) 500 Mg Cap 500 Mg PO TID 30 Days Potassium Chloride ER (Potassium Chloride) 20 Meq Tab 20 Meq PO DAILY 30 Days Topamax (Topiramate) 50 Mg Tab 100 Mg PO BID 30 Days Reported Reglan (Metoclopramide HCl) 10 Mg Tab 10 Mg PO QID Review of Systems Except as stated in HPI: all other systems reviewed are Neg Physical Exam Narrative GENERAL: ankle tender left SKIN: Warm and dry. HEAD: Atraumatic. Normocephalic. EYES: Pupils equal and round. No scleral icterus. No injection or drainage. ENT: No nasal bleeding or discharge. Mucous membranes pink and moist. NECK: Trachea midline. No JVD. CARDIOVASCULAR: Regular rate and rhythm. RESPIRATORY: No accessory muscle use. Clear to auscultation. Breath sounds equal bilaterally. GASTROINTESTINAL: Abdomen soft, non-tender, nondistended. Hepatic and splenic margins not palpable. MUSCULOSKELETAL: Extremities without clubbing, cyanosis, or edema. No obvious deformities. NEUROLOGICAL: Awake and alert. No obvious cranial nerve deficits. Motor grossly within normal limits. Five out of 5 muscle strength in the arms and legs. Normal speech. PSYCHIATRIC: Appropriate mood and affect; insight and judgment normal. Data Data Last Documented VS Vital Signs Date Time Temp Pulse Resp B/P (MAP) Pulse Ox O2 Delivery O2 Flow Rate FiO2 07/19/17 01:52 98.1 88 16 127/93 (104) 100 Orders Orders Ankle, Complete ([id number]) (07/19/17 ) Khyn-Ciigo-Jvzl 325-50-40 Mg (Fioricet 3 (07/19/17 06:45) Acetamin-Hydrocod 325-5 Mg ([place] 5-325 (07/19/17 06:45) Ondansetron Odt (Zofran Odt) (07/19/17 07:00) Crutches (07/19/17 06:57) Rashard Bandage (07/19/17 06:57) Ed Discharge Order (07/19/17 07:01) MDM Medical Decision Making Medical Screen Exam Complete: Yes Emergency Medical Condition: Yes Differential Diagnosis I feel no apparent need for further eval in ER she has had multiple CT and LP and has plan , she reports fell hit ankle after I tell her I am not going to work her up further, says I fell hurt left ankle xray to rule frature Narrative Course fioricet norco PO for headaceh and xray rules out ankle frature , rashard wrap crutches and DC Diagnosis Primary Impression: Fall Patient Instructions: Ankle Sprain (ED), General Instructions Disposition: 01 DISCHARGE HOME Condition: Jaspal Blanco MD Jul 19, 2017 06:59
[2017-07-19] MEDS ORDERED: ONDANSETRON ODT 4 MG TAB PO ONE (07:00)
== END 2017-07-19 07:56 | disposition home or self-care (01) ==
LOC: NEPE 01:47
DX: S93.402A Sprain of unspecified ligament of left ankle, initial encounter (principal); I10 Essential (primary) hypertension; J45.909 Unspecified asthma, uncomplicated; W19.XXXA Unspecified fall, initial encounter; Z87.442 Personal history of urinary calculi; Z72.0 Tobacco use; Z88.2 Allergy status to sulfonamides; Z88.0 Allergy status to penicillin; Z88.6 Allergy status to analgesic agent; Z79.899 Other long term (current) drug therapy
CPT/HCPCS: 73610; 99283; E0113

== ENCOUNTER 2017-07-19 22:51 | Emergency (ER) | payer SELFPAY ==
[~2017-07-19] VITALS: Ht 154.9 cm; Wt 110.0 kg
[2017-07-19 23:22] VITALS: BP 124/83; PULSE 80; RESP 16; TEMP 97.9; O2SAT 100
[2017-07-20] MEDS ORDERED: SODIUM CHLOR 0.9% 1000 ML INJ 1,000 ML IV ONE (05:08)
[2017-07-20] MEDS ORDERED: methylPREDNISolone SOD SUCC 125 MG/2 ML VIAL IV PUSH ONE (05:15)
[2017-07-20] MEDS ORDERED: SODIUM CHLORIDE 0.9% FLUSH 10 ML FLUSH IVF PRN (05:15)
[2017-07-20] MEDS ORDERED: diphenhydrAMINE HCL 50 MG/ML VIAL IVP ONE (05:15)
[2017-07-20] MEDS ORDERED: METOCLOPRAMIDE HCL 10 MG/2 ML VIAL IV PUSH ONE (05:15)
[2017-07-20] MEDS ORDERED: HYDROmorphone HCL PF 1 MG/ML VIAL IVS ONE (05:15)
[2017-07-20] MEDS ORDERED: HYDROmorphone HCL PF 2 MG/ML VIAL IV PUSH ONE (05:19)
--- NOTE | 2017-07-20 05:27 | PD ---
HPI Chief Complaint: Seizure Time Seen by Provider: 04:38 Travel History International Travel<30 days: No Contact w/Intl Traveler<30days: No Traveled to known affect area: No History of Present Illness HPI The patient is a 32-year-old female who presents emergency department for headache. The patient is well-known to the emergency department, states she has a history of pseudotumor cerebri. The patient was recently hospitalized earlier this month for headache and was in the hospital for approximately 6 days duration. The patient states she is scheduled to have an outpatient ventricular peritoneal shunt placed, however, is awaiting referral to the [facility] for possible optic nerve fenestration. The patient states she was seen any margins partly yesterday after fall and possible seizure, was discharged home. The patient contacted her neurologist, Dr. Johnson, who referred her to the emergency department for further evaluation. The patient states she may have had a seizure yesterday, now complains of a headache in the posterior aspect of her head which pushes to the eyes bilaterally. She denies any acute focal deficits, does no vision changes, however, this would've been intermittent but persistent over the last several years. She denies any nausea or vomiting. She denies weakness or numbness of the upper or lower extremities. PFSH Past Medical History Hx Anticoagulant Therapy: No Arthritis: No Asthma: Yes Autoimmune Disease: No Blood Disorders: No Anxiety: No Depression: No Heart Rhythm Problems: No Cancer: No Cardiovascular Problems: No High Cholesterol: No Chemotherapy: No Chest Pain: No Congestive Heart Failure: No COPD: No Cerebrovascular Accident: No Diabetes: No Diminished Hearing: No Endocrine: No Gastrointestinal Disorders: No GERD: No Genitourinary: Yes (KIDNEY STONES) Headaches: Yes Hiatal Hernia: No Heparin Induced Thrombocytopen: No Hypertension: Yes (Idiopathic intracranial hypertension) Immune Disorder: No Implanted Vascular Access Dvce: No Kidney Stones: Yes Musculoskeletal: No Neurologic: Yes Psychiatric: No Reproductive: Yes (7 MISCARRIAGES) Respiratory: Yes Immunizations Current: Yes Migraines: Yes Radiation Therapy: No Renal Failure: No Seizures: No Sickle Cell Disease: No Sleep Apnea: No Thyroid Disease: No Ulcer: No : 8 Para: 1 Miscarriage: 7 Dilation and Curettage (D&C): Yes (x3 ) Past Surgical History Abdominal Surgery: No AICD: No Arteriovenous Shunt: No Cardiac Surgery: No Section: Yes Cholecystectomy: Yes Ear Surgery: No Endocrine Surgery: No Eye Surgery: No Genitourinary Surgery: Yes (STENTS KIDNEYS, LITHOTRIPSIES) Gynecologic Surgery: No Hysterectomy: Yes Insulin Pump: No Joint Replacement: No Neurologic Surgery: No (lumbar punctures, 40x) Oral Surgery: No Pacemaker: No Thoracic Surgery: No Other Surgery: Yes (L KIDNEY (STENTS x 6) Social History Alcohol Use: No Tobacco Use: Yes (1 cigarette ) Substance Use: No Allergies-Medications (Allergen,Severity, Reaction): Coded Allergies: Sulfa (Sulfonamide Antibiotics) (Unverified Allergy, Severe, RASH, 07/20/17 ) amoxicillin (Unverified Allergy, Severe, Anaphylaxis, 07/20/17) ketorolac (Verified Allergy, Severe, Anaphylaxis, 07/20/17) anaphylaxis per patient ibuprofen (Unverified Allergy, Intermediate, HIVES, FACIAL SWELLING., 07/20) tramadol (Unverified Allergy, Intermediate, HIVES, 07/20/17) hives, sewll up latex (Unverified Allergy, Unknown, 07/20/17) penicillin G (Unverified Allergy, Unknown, HIVES, 07/20/17) prochlorperazine (Unverified Allergy, Unknown, HIVES, 07/20/17) sumatriptan (Unverified Adverse Reaction, Severe, VOMITING PASSED OUT, ) Reported Meds & Prescriptions Reported Meds & Active Scripts Active Valium (Diazepam) 5 Mg Tab 5 Mg PO BID PRN 30 Days Oxycodone-Acetaminophen 10-325 (Oxycodone HCl/Acetaminophen) 10 Mg-325 Mg Tablet 1 Tab PO Q6H PRN 30 Days Meclizine (Meclizine HCl) 25 Mg Tab 25 Mg PO TID PRN 30 Days Lasix (Furosemide) 40 Mg Tab 40 Mg PO BID 30 Days Diamox Sequels ER 12 HR (Acetazolamide) 500 Mg Cap 500 Mg PO TID 30 Days Potassium Chloride ER (Potassium Chloride) 20 Meq Tab 20 Meq PO DAILY 30 Days Topamax (Topiramate) 50 Mg Tab 100 Mg PO BID 30 Days Reported Reglan (Metoclopramide HCl) 10 Mg Tab 10 Mg PO QID Review of Systems Except as stated in HPI: all other systems reviewed are Neg Eyes: Positive: Blurred Vision HENT: Positive: Headaches, No: Neck Pain Gastrointestinal: No: Nausea, Vomiting, Abdominal Pain Neurologic: Positive: Headache, No: Change in Mentation, Paresthesia, Sensory Disturbance Physical Exam Narrative GENERAL: Awake, alert, nontoxic-appearing 32-year-old female appears her stated age and is in no acute respiratory distress. When I initially and or the room she was lying in the right lateral decubitus position sleeping comfortably. SKIN: Focused skin assessment warm/dry. HEAD: Atraumatic. Normocephalic. EYES: Pupils equal and round. 4 mm bilateral and reactive. EOMs are intact. She is able to see fingers at a distance of 2 feet without difficulty. ENT: No nasal bleeding or discharge. Mucous membranes pink and moist. NECK: Trachea midline. No JVD. No meningeal signs. CARDIOVASCULAR: Regular rate and rhythm. No murmur appreciated. RESPIRATORY: No accessory muscle use. Clear to auscultation. Breath sounds equal bilaterally. MUSCULOSKELETAL: No obvious deformities. No clubbing. No cyanosis. No edema. NEUROLOGICAL: Awake and alert. No obvious cranial nerve deficits. Motor grossly within normal limits. Normal speech. Nonfocal. Oriented 4. PSYCHIATRIC: Appropriate mood and affect; insight and judgment normal. Data Data Last Documented VS Vital Signs Date Time Temp Pulse Resp B/P (MAP) Pulse Ox O2 Delivery O2 Flow Rate FiO2 07/20/17 08:45 07/20/17 07:01 59 18 93 Room Air 07/19/17 23:22 97.9 Orders Orders Ecg Monitoring (07/20/17 05:08) Iv Access Insert/Monitor (07/20/17 05:08) Oximetry (07/20/17 05:08) Sodium Chloride 0.9% Flush (Ns Flush) (07/20/17 05:15) Diphenhydramine Inj (Benadryl Inj) (07/20/17 05:15) Sodium Chlor 0.9% 1000 Ml Inj (Ns 1000 M (07/20/17 05:08) Metoclopramide Inj (Reglan Inj) (07/20/17 05:15) Methylprednisolone So Succ Inj (Solumedr (07/20/17 05:15) Hydromorphone Pf Inj (Dilaudid Pf Inj) (07/20/17 05:19) Ed Discharge Order (07/20/17 06:35) [facility] Medical Decision Making Medical Screen Exam Complete: Yes Emergency Medical Condition: Yes Medical Record Reviewed: Yes Differential Diagnosis Differential diagnosis includes tension headache, migraine, pseudotumor cerebri , glaucoma, subarachnoid hemorrhage, malingering, drug-seeking behavior, opiate dependence. Narrative Course IV was established, the patient was placed on cardiac telemetry monitoring and continuous pulse oximetry monitoring. The patient has had multiple visits to the ER as well as multiple admissions. I did review the multiple MRIs and MRV' s as well as lumbar puncture set up and performed. The patient was administered Dilaudid, Benadryl, Reglan, and IV fluids. She is advised to follow-up with her neurosurgeon, tennis desk team member, and neurologist on an outpatient basis. The patient was reassessed several times, she was sleeping, was easily arousable, however, appeared comfortable. She was then fall back asleep easily. Patient is advised to follow-up with her neurosurgeon and tennis desk team member on an outpatient basis. Diagnosis Primary Impression: Chronic headache Qualified Codes: R51 - Headache Patient Instructions: General Instructions Additional Instructions: Follow-up with your neurosurgeon, tennis desk team member, and neurologist. Return if symptoms worsen or progress. Med/Other Pt SpecificInfo: No Change to Meds Disposition: 01 DISCHARGE HOME Condition: Stable Eduard Young MD Jul 20, 2017 05:27
[2017-07-20 05:51] VITALS: BP 97/56; PULSE 60; RESP 16; O2SAT 100
[2017-07-20 07:01] VITALS: BP 91/50; PULSE 59; RESP 18; O2SAT 93
== END 2017-07-20 08:46 | disposition home or self-care (01) ==
LOC: NED 22:51 → NEPE 07-20 08:46
DX: R51 Headache (principal); I10 Essential (primary) hypertension; J45.909 Unspecified asthma, uncomplicated; Z87.442 Personal history of urinary calculi; Z72.0 Tobacco use; Z88.2 Allergy status to sulfonamides; Z88.0 Allergy status to penicillin; Z88.6 Allergy status to analgesic agent; Z79.899 Other long term (current) drug therapy
CPT/HCPCS: 96361; 96374; 96375; 99284; J1170; J2930; J7030

== ENCOUNTER 2017-07-23 07:35 | Emergency (ER) | payer SELFPAY ==
[2017-07-23 07:40] VITALS: BP 133/61; PULSE 76; RESP 16; TEMP 98.6; O2SAT 99
--- NOTE | 2017-07-23 08:08 | PD ---
HPI Chief Complaint: Flank/Kidney Pain Time Seen by Provider: 08:07 Travel History International Travel<30 days: No Contact w/Intl Traveler<30days: No Traveled to known affect area: No History of Present Illness HPI 32-year-old female came to the emergency room with history of abdominal pain/ flank pain and vomiting since last night. Patient is a frequent visitor in the emergency room mostly for headache. She has history of pseudotumor cerebri. In fact patient was just discharged few days ago and admitted for her headaches. Patient says that since last night she started having some flank pain radiating to the entire abdomen associated with vomiting. This morning she was miserable with abdominal pain and couldn't hold anything down when she decided to come to the emergency room. Vital signs are stable. No aggravating or relieving factors identified. PFSH Past Medical History Narrative Medical List of her past medical, surgical, social and family history is reviewed from the nursing note. Hx Anticoagulant Therapy: No Arthritis: No Asthma: Yes Autoimmune Disease: No Blood Disorders: No Anxiety: No Depression: No Heart Rhythm Problems: No Cancer: No Cardiovascular Problems: No High Cholesterol: No Chemotherapy: No Chest Pain: No Congestive Heart Failure: No COPD: No Cerebrovascular Accident: No Diabetes: No Diminished Hearing: No Endocrine: No Gastrointestinal Disorders: No GERD: No Genitourinary: Yes (KIDNEY STONES) Headaches: Yes Hiatal Hernia: No Heparin Induced Thrombocytopen: No Hypertension: Yes (Idiopathic intracranial hypertension) Immune Disorder: No Implanted Vascular Access Dvce: No Kidney Stones: Yes Musculoskeletal: No Neurologic: Yes Psychiatric: No Reproductive: Yes (7 MISCARRIAGES) Respiratory: Yes Immunizations Current: Yes Migraines: Yes Radiation Therapy: No Renal Failure: No Seizures: No Sickle Cell Disease: No Sleep Apnea: No Thyroid Disease: No Ulcer: No Tetanus Vaccination: Unknown ?: Not : 8 Para: 1 Miscarriage: 7 Dilation and Curettage (D&C): Yes (x3 ) Past Surgical History Abdominal Surgery: No AICD: No Arteriovenous Shunt: No Cardiac Surgery: No Section: Yes Cholecystectomy: Yes Ear Surgery: No Endocrine Surgery: No Eye Surgery: No Genitourinary Surgery: Yes (STENTS KIDNEYS, LITHOTRIPSIES) Gynecologic Surgery: No Hysterectomy: Yes Insulin Pump: No Joint Replacement: No Neurologic Surgery: Yes (lumbar punctures, 40x) Oral Surgery: No Pacemaker: No Thoracic Surgery: No Other Surgery: Yes (L KIDNEY (STENTS x 6) Social History Alcohol Use: No Tobacco Use: Yes (1 cigarette ) Substance Use: No Allergies-Medications (Allergen,Severity, Reaction): Coded Allergies: Sulfa (Sulfonamide Antibiotics) (Verified Allergy, Severe, RASH, 07/25/17) amoxicillin (Verified Allergy, Severe, Anaphylaxis, 07/25/17) ketorolac (Verified Allergy, Severe, Anaphylaxis, 07/23/17) anaphylaxis per patient ibuprofen (Verified Allergy, Intermediate, HIVES, FACIAL SWELLING., ) tramadol (Verified Allergy, Intermediate, HIVES, 07/25/17) hives, sewll up latex (Verified Allergy, Unknown, 07/25/17) penicillin G (Verified Allergy, Unknown, HIVES, 07/25/17) prochlorperazine (Verified Allergy, Unknown, HIVES, 07/25/17) sumatriptan (Verified Adverse Reaction, Severe, VOMITING PASSED OUT, ) Comments List of allergies to be from the nursing note. Reported Meds & Prescriptions Reported Meds & Active Scripts Active Doxycycline Hyclate 100 Mg Cap 100 Mg PO BID Clindamycin (Clindamycin HCl) 150 Mg Cap 300 Mg PO QID Valium (Diazepam) 5 Mg Tab 5 Mg PO BID PRN 30 Days Oxycodone-Acetaminophen 10-325 (Oxycodone HCl/Acetaminophen) 10 Mg-325 Mg Tablet 1 Tab PO Q6H PRN 30 Days Meclizine (Meclizine HCl) 25 Mg Tab 25 Mg PO TID PRN 30 Days Lasix (Furosemide) 40 Mg Tab 40 Mg PO BID 30 Days Diamox Sequels ER 12 HR (Acetazolamide) 500 Mg Cap 500 Mg PO TID 30 Days Potassium Chloride ER (Potassium Chloride) 20 Meq Tab 20 Meq PO DAILY 30 Days Topamax (Topiramate) 50 Mg Tab 100 Mg PO BID 30 Days Reported Reglan (Metoclopramide HCl) 10 Mg Tab 10 Mg PO QID Narrative Medication List of her home medications reviewed from the nursing note. Review of Systems Except as stated in HPI: all other systems reviewed are Neg Gastrointestinal: Positive: Nausea, Vomiting, Abdominal Pain Physical Exam Narrative GENERAL: Awake, alert, morbidly obese, anxious, moderate distress SKIN: Focused skin assessment warm/dry. HEAD: Atraumatic. Normocephalic. EYES: Pupils equal and round. No scleral icterus. No injection or drainage. ENT: No nasal bleeding or discharge. Mucous membranes pink and moist. NECK: Trachea midline. No JVD. CARDIOVASCULAR: Regular rate and rhythm. No murmur appreciated. RESPIRATORY: No accessory muscle use. Clear to auscultation. Breath sounds equal bilaterally. GASTROINTESTINAL: Abdomen soft, non-tender, nondistended. Hepatic and splenic margins not palpable. MUSCULOSKELETAL: No obvious deformities. No clubbing. No cyanosis. No edema. NEUROLOGICAL: Awake and alert. No obvious cranial nerve deficits. Motor grossly within normal limits. Normal speech. PSYCHIATRIC: Appropriate mood and affect; insight and judgment normal. Data Data Last Documented VS Vital Signs Date Time Temp Pulse Resp B/P (MAP) Pulse Ox O2 Delivery O2 Flow Rate FiO2 07/23/17 08:50 98 Room Air 07/23/17 07:40 98.6 76 16 133/61 (85) Orders Orders Complete Blood Count With Diff (07/23/17 08:11) Comprehensive Metabolic Panel (07/23/17 08:11) Lipase (07/23/17 08:11) Urinalysis - C+S If Indicated (07/23/17 08:11) Ct Abd/Pel W/O Iv Contrast (07/23/17 08:11) Iv Access Insert/Monitor (07/23/17 08:11) Ecg Monitoring (07/23/17 08:11) Oximetry (07/23/17 08:11) Sodium Chloride 0.9% Flush (Ns Flush) (07/23/17 08:15) Morphine Inj (Morphine Inj) (07/23/17 08:15) Morphine Inj (Morphine Inj) (07/23/17 09:15) Ondansetron Inj (Zofran Inj) (07/23/17 09:45) Ed Discharge Order (07/23/17 09:52) Influenzae A/B Antigen (07/23/17 09:59) Labs Laboratory Tests Test 07/23/17 08:30 White Blood Count 13.8 TH/MM3 Red Blood Count 4.19 MIL/MM3 Hemoglobin 11.5 GM/DL Hematocrit 35.1 % Mean Corpuscular Volume 83.7 FL Mean Corpuscular Hemoglobin 27.5 PG Mean Corpuscular Hemoglobin Concent 32.8 % Red Cell Distribution Width 13.5 % Platelet Count 315 TH/MM3 Mean Platelet Volume 8.2 FL Neutrophils (%) (Auto) 72.2 % Lymphocytes (%) (Auto) 17.6 % Monocytes (%) (Auto) 8.0 % Eosinophils (%) (Auto) 1.9 % Basophils (%) (Auto) 0.3 % Neutrophils # (Auto) 10.0 TH/MM3 Lymphocytes # (Auto) 2.4 TH/MM3 Monocytes # (Auto) 1.1 TH/MM3 Eosinophils # (Auto) 0.3 TH/MM3 Basophils # (Auto) 0.0 TH/MM3 CBC Comment DIFF FINAL Differential Comment Urine Color LIGHT-YELLOW Urine Turbidity CLEAR Urine pH 7.5 Urine Specific [place] 1.014 Urine Protein NEG mg/dL Urine Glucose (UA) NEG mg/dL Urine Ketones NEG mg/dL Urine Occult Blood NEG Urine Nitrite NEG Urine Bilirubin NEG Urine Urobilinogen LESS THAN 2.0 MG/DL Urine Leukocyte Esterase NEG Urine RBC 1 /hpf Urine WBC 1 /hpf Urine Squamous Epithelial Cells 5 /hpf Urine Bacteria RARE /hpf Urine Mucus FEW /lpf Microscopic Urinalysis Comment CULT NOT INDICATED Blood Urea Nitrogen 14 MG/DL Creatinine 0.56 MG/DL Random Glucose 90 MG/DL Total Protein 6.9 GM/DL Albumin 3.1 GM/DL Calcium Level 8.3 MG/DL Alkaline Phosphatase 71 U/L Aspartate Amino Transf (AST/SGOT) 14 U/L Alanine Aminotransferase (ALT/SGPT) 27 U/L Total Bilirubin 0.2 MG/DL Sodium Level 144 MEQ/L Potassium Level 4.0 MEQ/L Chloride Level 112 MEQ/L Carbon Dioxide Level 25.4 MEQ/L Anion Gap 7 MEQ/L Estimat Glomerular Filtration Rate 125 ML/MIN Lipase 90 U/L [facility] Medical Decision Making Medical Screen Exam Complete: Yes Emergency Medical Condition: Yes Medical Record Reviewed: Yes Differential Diagnosis Acute gastritis, renal colic, UTI Narrative Course 9:54 AM blood test results of back and patient has leukocytosis but rest of the test results are within normal limit. UA is negative for any UTI. CT scan of the abdomen and pelvis is unremarkable. Patient was given pain medication and nausea medicine. I made to discharge her home at this point. Patient is to follow up with her primary care regarding her chronic pain. Procedures EKG Prior to Arrival: No Diagnosis Primary Impression: Chronic pain syndrome Additional Impression: Acute gastritis Qualified Codes: K29.00 - Acute gastritis without bleeding Additional Instructions: Please follow-up with your primary care. Continue taking the Zofran and Reglan that you have at home. Med/Other Pt SpecificInfo: No Change to Meds Disposition: 01 DISCHARGE HOME Condition: Stable Stephen Barksdale MD Jul 23, 2017 08:08
[2017-07-23] MEDS ORDERED: SODIUM CHLORIDE 0.9% FLUSH 10 ML FLUSH IV FLUSH PRN (08:15)
[2017-07-23] MEDS ORDERED: MORPHINE SULFATE 8 MG/ML INJ IM ONE (08:15)
[2017-07-23 08:50] VITALS: O2SAT 98
[2017-07-23 08:59] LABS: BACTERIA, URINE RARE /hpf; BASOPHIL % 0.3 % (0.0-2.0); BILIRUBIN, URINE NEG (NEG); BLOOD, URINE NEG (NEG); EOSINOPHIL # 0.3 TH/MM3 (0-0.4); EOSINOPHIL % 1.9 % (0.0-4.0); GLUCOSE,URINE NEG (NEG); HEMATOCRIT 35.1 % (35.0-46.0); HEMOGLOBIN 11.5 GM/DL (11.6-15.3); KETONE, URINE NEG (NEG); LYMPH % 17.6 % (9.0-44.0); LYMPHOCYTE # 2.4 TH/MM3 (1.0-4.8); MEAN CELL VOLUME 83.7 FL (80.0-100.0); MEAN CORPUSCULAR HEMOGLOBIN 27.5 PG (27.0-34.0); MEAN CORPUSCULAR HGB CONC 32.8 % (32.0-36.0); MEAN PLATELET VOLUME 8.2 FL (7.0-11.0); MONOCYTE # 1.1 TH/MM3 (0-0.9); MUCUS URINE FEW /lpf (OCC); NEUT % 72.2 % (16.0-70.0); NITRITE,URINE NEG (NEG); PH, URINE 7.5 (5.0-8.5); PLATELET COUNT 315 TH/MM3 (150-450); RED BLOOD COUNT 4.19 MIL/MM3 (4.00-5.30); RED CELL DISTRIBUTION WIDTH 13.5 % (11.6-17.2); SQUAMOUS EPITHELIAL CELL URINE 5 /hpf (0-5); URINE COLOR LIGHT-YELLOW (YELLW/STRAW); URINE LEUKOCYTE ESTERASE NEG (NEG); WHITE BLOOD COUNT 13.8 TH/MM3 (4.0-11.0)
[2017-07-23 09:10] LABS: ALBUMIN 3.1 GM/DL (3.4-5.0); ALT (GPT) 27 U/L (10-53); AST (GOT) 14 U/L (15-37); BICARBONATE 25.4 MEQ/L (21.0-32.0); BLOOD UREA NITROGEN 14 MG/DL (7-18); CALCIUM 8.3 MG/DL (8.5-10.1); CHLORIDE 112 MEQ/L (98-107); CREATININE 0.56 MG/DL (0.50-1.00); GLOMERULAR FILTRATION RATE 125 ML/MIN (>89); GLUCOSE,RANDOM 90 MG/DL (74-106); SODIUM (NA) 144 MEQ/L (136-145)
[2017-07-23 09:12] LABS: ALKALINE PHOSPHATASE 71 U/L (45-117); TOTAL BILIRUBIN ADULT 0.2 MG/DL (0.2-1.0); TOTAL PROTEIN 6.9 GM/DL (6.4-8.2)
[2017-07-23] MEDS ORDERED: MORPHINE SULFATE 8 MG/ML INJ IV PUSH ONE (09:15)
[2017-07-23] MEDS ORDERED: ONDANSETRON HCL 4 MG/2 ML VIAL IV PUSH ONE (09:45)
--- NOTE | 2017-07-23 09:48 | RADRPT ---
EXAM DATE/TIME: 07/23/2017 09:34 [place] COMPARISON: CT ABDOMEN & PELVIS W/O CONTRAST, May 15, 2017, 5:31. INDICATIONS : Right sided abdominal pain. ORAL CONTRAST: No oral contrast ingested. RADIATION DOSE: 16.93 CTDIvol (mGy) MEDICAL HISTORY : Hypertension. Renal calculi. SURGICAL HISTORY : Cholecystectomy. Hysterectomy. section. ENCOUNTER: Initial ACUITY: 1 day PAIN SCALE: 5/10 LOCATION: Right abdomen TECHNIQUE: Volumetric scanning of the abdomen and pelvis was performed. Using automated exposure control and ad justment of the mA and/or kV according to patient size, radiation dose was kept as low as reasonably achievable to obtain optimal diagnostic quality images. DICOM format image data is available electro nically for review and comparison. The lack of IV contrast limits the diagnosis for certain organ pat hology. FINDINGS: LOWER LUNGS: The visualized lower lungs are clear. LIVER: Homogeneous density without lesion. There is no dilation of the biliary tree. No gallbladder, surgi juan removed. SPLEEN: Normal size without lesion. PANCREAS: Within normal limits. KIDNEYS: Normal in size and shape. There is no mass, stone, or hydronephrosis. ADRENAL GLANDS: Within normal limits. VASCULAR: There is no aortic aneurysm. BOWEL/MESENTERY: The stomach, small bowel, and colon demonstrate no acute abnormality. There is no free intraperitone al air or fluid. The appendix is unremarkable. There is stool throughout the colon. No inflammatory c hanges are demonstrated. ABDOMINAL WALL: Within normal limits. RETROPERITONEUM: There is no lymphadenopathy. BLADDER: No wall thickening or mass. REPRODUCTIVE: Within normal limits. INGUINAL: There is no lymphadenopathy or hernia. MUSCULOSKELETAL: Within normal limits for patient age. No new or significant changes compared to the prior study. CONCLUSION: Unremarkable and stable CT scan of the abdomen and pelvis compared to the prior study. Enrique Aranda MD on July 23, 2017 at 9:44 Board Certified Radiologist. This report was verified electronically.
== END 2017-07-23 11:44 | disposition home or self-care (01) ==
LOC: NEPC 07:35
DX: G89.4 Chronic pain syndrome (principal); K29.00 Acute gastritis without bleeding
CPT/HCPCS: 74176; 80053; 81001; 83690; 85025; 87804; 96374; 96375; 99284; J2270; J2405

== ENCOUNTER 2017-07-25 20:49 | Emergency (ER) | payer SELFPAY ==
[~2017-07-25] VITALS: Ht 154.9 cm; Wt 108.0 kg
[2017-07-25 21:25] VITALS: BP 166/101; PULSE 89; RESP 18; TEMP 99.5; O2SAT 100
[2017-07-25] MEDS ORDERED: DOXYCYCLINE HYCLATE 100 MG CAP PO ONE (22:15)
[2017-07-25] MEDS ORDERED: CLINDAMYCIN PHOS 600 MG/4 ML VIAL IM ONE (22:15)
[2017-07-25] MEDS ORDERED: DOXY100C PO (22:18)
[2017-07-25] MEDS ORDERED: CLIN150C14 PO (22:18)
--- NOTE | 2017-07-25 22:18 | PD ---
HPI Chief Complaint: Skin Problem Time Seen by Provider: 21:49 Travel History International Travel<30 days: No Contact w/Intl Traveler<30days: No Traveled to known affect area: No History of Present Illness HPI 32-year-old female complains of infected draining lesion on the mid back. Patient states that she had I&D of the infected lesion on the back about a month ago. Patient was put on clindamycin. Patient states that the lesion got better and get worse again for the past few days. Patient states that she had drainage from the lesion since then. Patient denies any fever chills. Patient complained of sharp pain localized around her mid back area. Patient denies any pain radiation. Patient has history of pseudo-tumor cerebri, recurrent headache. Patient awaiting referral and [facility] for optic nerve fenestration and neurosurgeon for UNSTACKER shunt placement. PFSH Past Medical History Hx Anticoagulant Therapy: No Arthritis: No Asthma: Yes Autoimmune Disease: No Blood Disorders: No Anxiety: No Depression: No Heart Rhythm Problems: No Cancer: No Cardiovascular Problems: No High Cholesterol: No Chemotherapy: No Chest Pain: No Congestive Heart Failure: No COPD: No Cerebrovascular Accident: No Diabetes: No Diminished Hearing: No Endocrine: No Gastrointestinal Disorders: No GERD: No Genitourinary: Yes (KIDNEY STONES) Headaches: Yes Hiatal Hernia: No Heparin Induced Thrombocytopen: No Hypertension: Yes (Idiopathic intracranial hypertension) Immune Disorder: No Implanted Vascular Access Dvce: No Kidney Stones: Yes Musculoskeletal: No Neurologic: Yes Psychiatric: No Reproductive: Yes (7 MISCARRIAGES) Respiratory: Yes (asthma) Immunizations Current: Yes Migraines: Yes Radiation Therapy: No Renal Failure: No Seizures: No Sickle Cell Disease: No Sleep Apnea: No Thyroid Disease: No Ulcer: No Tetanus Vaccination: < 5 Years Influenza Vaccination: No ?: Not LMP: 06/30/17 : 8 Para: 1 Miscarriage: 7 Dilation and Curettage (D&C): Yes (x3 ) Past Surgical History Abdominal Surgery: No AICD: No Arteriovenous Shunt: No Cardiac Surgery: No Section: Yes Cholecystectomy: Yes Ear Surgery: No Endocrine Surgery: No Eye Surgery: No Genitourinary Surgery: Yes (STENTS KIDNEYS, LITHOTRIPSIES) Gynecologic Surgery: No Hysterectomy: Yes Insulin Pump: No Joint Replacement: No Neurologic Surgery: Yes (lumbar punctures, 40x) Oral Surgery: No Pacemaker: No Thoracic Surgery: No Other Surgery: Yes (L KIDNEY (STENTS x 6) Social History Alcohol Use: No Tobacco Use: Yes (1 cigarette ) Substance Use: No Allergies-Medications (Allergen,Severity, Reaction): Coded Allergies: Sulfa (Sulfonamide Antibiotics) (Verified Allergy, Severe, RASH, 07/25/17) amoxicillin (Verified Allergy, Severe, Anaphylaxis, 07/25/17) ketorolac (Verified Allergy, Severe, Anaphylaxis, 07/23/17) anaphylaxis per patient ibuprofen (Verified Allergy, Intermediate, HIVES, FACIAL SWELLING., ) tramadol (Verified Allergy, Intermediate, HIVES, 07/25/17) hives, sewll up latex (Verified Allergy, Unknown, 07/25/17) penicillin G (Verified Allergy, Unknown, HIVES, 07/25/17) prochlorperazine (Verified Allergy, Unknown, HIVES, 07/25/17) sumatriptan (Verified Adverse Reaction, Severe, VOMITING PASSED OUT, ) Reported Meds & Prescriptions Reported Meds & Active Scripts Active Valium (Diazepam) 5 Mg Tab 5 Mg PO BID PRN 30 Days Oxycodone-Acetaminophen 10-325 (Oxycodone HCl/Acetaminophen) 10 Mg-325 Mg Tablet 1 Tab PO Q6H PRN 30 Days Meclizine (Meclizine HCl) 25 Mg Tab 25 Mg PO TID PRN 30 Days Lasix (Furosemide) 40 Mg Tab 40 Mg PO BID 30 Days Diamox Sequels ER 12 HR (Acetazolamide) 500 Mg Cap 500 Mg PO TID 30 Days Potassium Chloride ER (Potassium Chloride) 20 Meq Tab 20 Meq PO DAILY 30 Days Topamax (Topiramate) 50 Mg Tab 100 Mg PO BID 30 Days Reported Reglan (Metoclopramide HCl) 10 Mg Tab 10 Mg PO QID Review of Systems General / Constitutional: No: Fever Eyes: No: Visual changes HENT: No: Headaches Cardiovascular: No: Chest Pain or Discomfort Respiratory: No: Shortness of Breath Gastrointestinal: No: Abdominal Pain Genitourinary: No: Dysuria Musculoskeletal: No: Pain Skin: No Rash Neurologic: No: Weakness Psychiatric: No: Depression Endocrine: No: Polydipsia Hematologic/Lymphatic: No: Easy Bruising Physical Exam Narrative GENERAL: Well-nourished, well-developed patient. SKIN: Focused skin assessment warm/dry. HEAD: Normocephalic. EYES: No scleral icterus. No injection or drainage. NECK: Supple, trachea midline. No JVD or lymphadenopathy. CARDIOVASCULAR: Regular rate and rhythm without murmurs, gallops, or rubs. RESPIRATORY: Breath sounds equal bilaterally. No accessory muscle use. GASTROINTESTINAL: Abdomen soft, non-tender, nondistended. MUSCULOSKELETAL: No cyanosis, or edema. BACK: Nontender without obvious deformity. No CVA tenderness. Patient had an ulcer lesion on the mid back area with redness swelling tenderness associate with that. Small drainage noted. The ulcer lesion is lateral to the midline spine the thoracic area. Data Data Last Documented VS Vital Signs Date Time Temp Pulse Resp B/P (MAP) Pulse Ox O2 Delivery O2 Flow Rate FiO2 07/25/17 21:25 99.5 89 18 166/101 (122) 100 Orders Orders Clindamycin Inj (Cleocin Inj) (07/25/17 22:15) Doxycycline (Vibramycin) (07/25/17 22:15) Wound Culture And Gram Stain (07/25/17 22:07) MDM Medical Decision Making Medical Screen Exam Complete: Yes Emergency Medical Condition: Yes Differential Diagnosis Differential diagnosis including cellulitis, abscess. Narrative Course 32-year-old female with infected draining lesion mid back. Clindamycin 600 mg IM. Doxycycline 100 mg p.o. given. Diagnosis Primary Impression: Cellulitis of mid back region Patient Instructions: General Instructions Additional Instructions: Clindamycin and doxycycline as directed. Dressing change daily. Return in 2 days for recheck. Med/Other Pt SpecificInfo: Prescription(s) given Scripts Doxycycline Hyclate (Doxycycline Hyclate) 100 Mg Cap 100 MG PO BID for Infection, #20 CAP 0 Refills Prov: Minor Arevalo MD 07/25/17 Clindamycin (Clindamycin) 150 Mg Cap 300 MG PO QID for Infection, #80 CAP 0 Refills Prov: Minor Arevalo MD 07/25/17 Disposition: 01 DISCHARGE HOME Condition: Stable Minor Arevalo MD Jul 25, 2017 22:18
== END 2017-07-25 23:25 | disposition home or self-care (01) ==
LOC: NEPC 20:49
DX: L03.312 Cellulitis of back [any part except buttock and flank] (principal)
CPT/HCPCS: 86403; 87070; 87186; 87205; 96372

== ENCOUNTER 2017-07-27 18:52 | Observation (INO) | payer SELFPAY ==
[~2017-07-27] VITALS: Ht 154.9 cm; Wt 105.0 kg
[~2017-07-27 18:52] MED LIST changes: +CLIN150C14 PO; +DOXY100C PO
[2017-07-27 19:03] VITALS: BP 152/78; PULSE 72; RESP 18; TEMP 98.3; O2SAT 99
--- NOTE | 2017-07-27 19:41 | PD ---
HPI Chief Complaint: Seizure Time Seen by Provider: 19:28 Travel History International Travel<30 days: No Contact w/Intl Traveler<30days: No Traveled to known affect area: No History of Present Illness HPI The patient is a 32 year old female who presents to the [facility] emergency department with a history of seizure activity that occurred prior to arrival. She began to stare for approximately 5 minutes. She reports having seizures previously however she has not had one for years. She reports that she has not had one for years since being placed on Topamax. She is followed by Dr. Haddad for her urologic care. She has a history of idiopathic intracranial hypertension. She reports that she has had long-standing problems with headaches related to this and has had multiple lumbar punctures done. She has chronic vision problem with the right eye, however today the vision in her left eye also began to worsen. She reports that the vision changes in the left eye have been present since the morning. She then developed an aura and a headache behind her eyes. During the headache is when she had the staring seizure occurred. The patient cannot recall the event. The seizure was reportedly witnessed by her . She then had nausea and vomited x2. She was drowsy after the seizure began to lay down. The seizure occurred at approximately 5PM. She reports that her headache and vision changes seem to worsen after the seizure. She missed taking her Topamax yesterday due to forgetting it. She is on Topamax 125mg bid. She did restart her Topamax today per she called her neurologist office and the director of front office recommended that she come to the emergency department for evaluation. The patient has not had a CELLOPHANE WORKER shunt placed. Dr. Haddad is working with the [facility] by the patient's report for optic sheath fenestration followed by shunt placement by Dr. Cerrato. Her last eye exam with the heavy equipment service technician was 1 week ago and her prescription has been rapidly changing. She continues to take Diamox. The patient's other recent history is significant for having recurrent skin infections over the last 2 months with an abscess that spontaneously drained from right side of back 2 days ago. She was seen in the ER at that time and started on Doxy and Clindamycin. On review of systems otherwise, the patient denies having any known recent fevers, worsening cough or congestion, neck pain, chest pain, shortness of breath, abdominal pain,diarrhea, urinary symptoms, one-sided weakness, slurred speech, facial droop, difficulty with word finding ability, or vertigo PFSH Past Medical History Narrative Medical The patient's past medical history is significant for having pseudotumor cerebri followed by Dr. Haddad her neurologist, also consulted on by Dr. Cerrato a local neurosurgeon during her last hospitalization. The patient has a history of renal stones, history of migraines, history of asthma. Hx Anticoagulant Therapy: No Arthritis: No Asthma: Yes Autoimmune Disease: No Blood Disorders: No Anxiety: No Depression: No Heart Rhythm Problems: No Cancer: No Cardiovascular Problems: No High Cholesterol: No Chemotherapy: No Chest Pain: No Congestive Heart Failure: No COPD: No Cerebrovascular Accident: No Diabetes: No Diminished Hearing: No Endocrine: No Gastrointestinal Disorders: No GERD: No Genitourinary: Yes (KIDNEY STONES) Headaches: Yes Hiatal Hernia: No Heparin Induced Thrombocytopen: No Hypertension: Yes (Idiopathic intracranial hypertension) Immune Disorder: No Implanted Vascular Access Dvce: No Kidney Stones: Yes Musculoskeletal: No Neurologic: Yes Psychiatric: No Reproductive: Yes (7 MISCARRIAGES) Respiratory: Yes (asthma) Immunizations Current: Yes Migraines: Yes Radiation Therapy: No Renal Failure: No Seizures: No Sickle Cell Disease: No Sleep Apnea: No Thyroid Disease: No Ulcer: No Tetanus Vaccination: < 5 Years Influenza Vaccination: No ?: Not LMP: 06/30/2017 : 8 Para: 1 Miscarriage: 7 Dilation and Curettage (D&C): Yes (x3 ) Past Surgical History Narrative Surgical The patient's past surgical history is significant for multiple lumbar punctures previously related to her intracranial hypertension, history of renal stent placement on the left, history of a , cholecystectomy. Abdominal Surgery: No AICD: No Arteriovenous Shunt: No Cardiac Surgery: No Section: Yes Cholecystectomy: Yes Ear Surgery: No Endocrine Surgery: No Eye Surgery: No Genitourinary Surgery: Yes (STENTS KIDNEYS, LITHOTRIPSIES) Gynecologic Surgery: No Hysterectomy: Yes Insulin Pump: No Joint Replacement: No Neurologic Surgery: Yes (lumbar punctures, 40x) Oral Surgery: No Pacemaker: No Thoracic Surgery: No Other Surgery: Yes (L KIDNEY (STENTS x 6) Social History Alcohol Use: No Tobacco Use: Yes (1 cigarette ) Substance Use: Yes (marijaunia) Allergies-Medications (Allergen,Severity, Reaction): Coded Allergies: Sulfa (Sulfonamide Antibiotics) (Verified Allergy, Severe, RASH, 07/27/17) amoxicillin (Verified Allergy, Severe, Anaphylaxis, 07/27/17) ketorolac (Verified Allergy, Severe, Anaphylaxis, 07/27/17) anaphylaxis per patient ibuprofen (Verified Allergy, Intermediate, HIVES, FACIAL SWELLING., 07/27/17 ) tramadol (Verified Allergy, Intermediate, HIVES, 07/27/17) hives, sewll up latex (Verified Allergy, Unknown, 07/27/17) penicillin G (Verified Allergy, Unknown, HIVES, 07/27/17) prochlorperazine (Verified Allergy, Unknown, HIVES, 07/27/17) sumatriptan (Verified Adverse Reaction, Severe, VOMITING PASSED OUT, ) Reported Meds & Prescriptions Reported Meds & Active Scripts Active Doxycycline Hyclate 100 Mg Cap 100 Mg PO BID Clindamycin (Clindamycin HCl) 150 Mg Cap 300 Mg PO QID Valium (Diazepam) 5 Mg Tab 5 Mg PO BID PRN 30 Days Oxycodone-Acetaminophen 10-325 (Oxycodone HCl/Acetaminophen) 10 Mg-325 Mg Tablet 1 Tab PO Q6H PRN 30 Days Meclizine (Meclizine HCl) 25 Mg Tab 25 Mg PO TID PRN 30 Days Lasix (Furosemide) 40 Mg Tab 40 Mg PO BID 30 Days Diamox Sequels ER 12 HR (Acetazolamide) 500 Mg Cap 500 Mg PO TID 30 Days Potassium Chloride ER (Potassium Chloride) 20 Meq Tab 20 Meq PO DAILY 30 Days Topamax (Topiramate) 50 Mg Tab 100 Mg PO BID 30 Days Reported Reglan (Metoclopramide HCl) 10 Mg Tab 10 Mg PO QID Review of Systems Except as stated in HPI: all other systems reviewed are Neg General / Constitutional: No: Fever Eyes: Positive: Blurred Vision, Visual changes HENT: Positive: Headaches, No: Congestion, Neck Stiffness, Neck Pain Cardiovascular: No: Chest Pain or Discomfort Respiratory: No: Cough, Shortness of Breath Gastrointestinal: Positive: Nausea, Vomiting, No: Diarrhea, Abdominal Pain Genitourinary: No: Dysuria Musculoskeletal: No: Pain Skin: Positive Rash Neurologic: Positive: Headache, Seizures, No: Weakness, Focal Abnormalities, Change in Mentation, Slurred Speech, Sensory Disturbance Psychiatric: No: Depression Endocrine: No: Polydipsia Hematologic/Lymphatic: No: Easy Bruising Physical Exam Narrative General: The patient is a well-developed well-nourished female in no acute distress. Head and Neck exam: Head is normocephalic atraumatic. Eyes: EOMI, pupils are equal round and reactive to light. Nose: Midline septum with pink mucous membranes Mouth: Dentition unremarkable. Moist mucus membranes. Posterior oropharynx is not erythematous. No tonsillar hypertrophy. Uvula midline. Airway patent. Neck: No palpable lymphadenopathy. No nuchal rigidity. No thyromegaly. Negative Brudzinski, negative Kernig sign. Cardiovascular: Regular rate and rhythm without murmurs, gallops, or rubs. Lungs: Clear to auscultation bilaterally. No wheezes, rhonchi, or rales. Abdomen: Soft, without tenderness to palpation in all 4 quadrants of the abdomen. No guarding, rebound, or rigidity. Normal bowel sounds are audible. No tenderness on palpation of McBurney's point. Extremities: No clubbing, cyanosis, or edema. 2+ pulses in all 4 extremities. No calf tenderness on palpation peer Back: No spinous process tenderness to palpation. No costovertebral angle tenderness to palpation. Neurologic Exam: Cranial nerves 2-12 were intact on exam. Strength is 5/5 in all 4 extremities. No sensory deficits noted. Skin Exam: No rash noted. Intact skin that is warm and dry. Data Data Last Documented VS Vital Signs Date Time Temp Pulse Resp B/P (MAP) Pulse Ox O2 Delivery O2 Flow Rate FiO2 07/27/17 19:39 Room Air 07/27/17 19:03 98.3 72 18 152/78 (102) 99 Orders Orders Electrocardiogram (07/27/17 19:32) Complete Blood Count With Diff (07/27/17 19:32) Comprehensive Metabolic Panel (07/27/17 19:32) Prothrombin Time / Inr (Pt) (07/27/17 19:32) Act Partial Throm Time (Ptt) (07/27/17 19:32) Lipase (07/27/17 19:32) Urinalysis - C+S If Indicated (07/27/17 19:32) Magnesium (Mg) (07/27/17 19:32) Chest, Single Ap (07/27/17 19:32) Ct Brain W/O Iv Contrast(Rout) (07/27/17 19:32) Ed Urine Pregnancytest Poc (07/27/17 19:32) Drug Screen, Random Urine (07/27/17 19:32) Alcohol (Ethanol) (07/27/17 19:32) Morphine Inj (Morphine Inj) (07/27/17 20:30) Diazepam (Valium) (07/27/17 20:30) Ondansetron Inj (Zofran Inj) (07/27/17 20:30) Sodium Chlorid 0.9% 500 Ml Inj (Ns 500 M (07/27/17 20:30) Admit Order (Ed Use Only) (07/27/17 21:25) Lumbar Puncture (07/27/17 ) Vital Signs (Adult) .On admission (07/27/17 21:25) Notify Radiology (07/27/17 21:25) Diet Npo (07/28/17 Breakfast) Consult Neurology (07/27/17 ) Mri Brain W&W/O Contrast (07/27/17 ) Labs Laboratory Tests Test 07/27/17 19:54 07/27/17 20:40 White Blood Count 9.9 TH/MM3 Red Blood Count 4.27 MIL/MM3 Hemoglobin 11.8 GM/DL Hematocrit 35.4 % Mean Corpuscular Volume 83.1 FL Mean Corpuscular Hemoglobin 27.7 PG Mean Corpuscular Hemoglobin Concent 33.3 % Red Cell Distribution Width 13.9 % Platelet Count 331 TH/MM3 Mean Platelet Volume 7.6 FL Neutrophils (%) (Auto) 50.7 % Lymphocytes (%) (Auto) 38.8 % Monocytes (%) (Auto) 7.0 % Eosinophils (%) (Auto) 2.9 % Basophils (%) (Auto) 0.6 % Neutrophils # (Auto) 5.0 TH/MM3 Lymphocytes # (Auto) 3.8 TH/MM3 Monocytes # (Auto) 0.7 TH/MM3 Eosinophils # (Auto) 0.3 TH/MM3 Basophils # (Auto) 0.1 TH/MM3 CBC Comment DIFF FINAL Differential Comment Prothrombin Time 9.8 SEC Prothromb Time International Ratio 1.0 RATIO Activated Partial Thromboplast Time 26.1 SEC Blood Urea Nitrogen 10 MG/DL Creatinine 0.67 MG/DL Random Glucose 87 MG/DL Total Protein 7.4 GM/DL Albumin 3.3 GM/DL Calcium Level 8.8 MG/DL Magnesium Level 2.0 MG/DL Alkaline Phosphatase 73 U/L Aspartate Amino Transf (AST/SGOT) 21 U/L Alanine Aminotransferase (ALT/SGPT) 33 U/L Total Bilirubin 0.2 MG/DL Sodium Level 141 MEQ/L Potassium Level 3.5 MEQ/L Chloride Level 105 MEQ/L Carbon Dioxide Level 29.4 MEQ/L Anion Gap 7 MEQ/L Estimat Glomerular Filtration Rate 102 ML/MIN Lipase 84 U/L Ethyl Alcohol Level LESS THAN 3 MG/DL Urine Color YELLOW Urine Turbidity HAZY Urine pH 7.5 Urine Specific [place] 1.020 Urine Protein TRACE mg/dL Urine Glucose (UA) NEG mg/dL Urine Ketones NEG mg/dL Urine Occult Blood NEG Urine Nitrite NEG Urine Bilirubin NEG Urine Urobilinogen 2.0 MG/DL Urine Leukocyte Esterase NEG Urine RBC 1 /hpf Urine WBC 1 /hpf Urine Squamous Epithelial Cells 18 /hpf Urine Amorphous Sediment RARE Urine Bacteria RARE /hpf Urine Mucus FEW /lpf Microscopic Urinalysis Comment CULT NOT INDICATED Urine Opiates Screen NEG Urine Barbiturates Screen NEG Urine Amphetamines Screen NEG Urine Benzodiazepines Screen POS Urine Cocaine Screen NEG Urine Cannabinoids Screen POS MDM Medical Decision Making Medical Screen Exam Complete: Yes Emergency Medical Condition: Yes Medical Record Reviewed: Yes Interpretation(s) Last Impressions Head CT 07/27/[id number] Signed Impressions: Service Date/Time: Thursday, July 27, 2017 20:45 - CONCLUSION: Normal examination. Sawyer Avila MD Chest X-Ray [id number]/27/[id number] Signed Impressions: Service Date/Time: Thursday, July 27, 2017 19:38 - CONCLUSION: No acute disease. Sawyer Avila MD Brain MRI 07/27/17 0000 Signed Impressions: Service Date/Time: Thursday, July 27, 2017 22:26 - CONCLUSION: Normal examination. Wallace Parker MD Differential Diagnosis Seizure activity due to medication noncompliance, versus seizure activity related to idiopathic intracranial hypertension, versus visual disturbances related to intracranial hypertension exacerbation, versus migraine headache, versus tension headache, versus sinus related headache Narrative Course During the course of the patient's emergency department visit, the patient's history, examination, and differential diagnosis were reviewed with the patient. The patient was placed on a cardiac sonographer with oximetry and frequent blood pressure monitoring. The patient had IV access obtained and blood work sent for analysis. The patient reports a morphine and Valium usually help with her headaches. The patient was initially provided morphine 4 mg IV, Zofran 4 mg IV, Valium 2 mg p.o. 1. The patient had a recurrence of pain and was given an additional morphine 4 mg IV, second dose of Zofran 4 mg IV The patient's laboratory studies were reviewed and remarkable for a CBC that is within normal limits, CMP is unremarkable, lipase within normal, PT PTT within normal, urine drug screen is positive for benzodiazepines and cannabinoids, alcohol level less than 3, urinalysis is unremarkable. Radiology studies were reviewed and remarkable for a CT scan of the brain that shows no acute abnormality. The chest x-ray that shows no acute cardiopulmonary disease. An MRI of the brain with and without contrast that shows no acute abnormality. I spoke to Dr. Haddad regarding this patient's case at approximately 7:55 PM, as he is familiar with this patient. He recommends that the patient be admitted, however not started on any seizure medication. He recommends that she obtain an MRI with and without contrast in the hospital along with an EEG. He recommends that interventional radiology also do a lumbar puncture tomorrow and document the patient's opening pressure. He recommends that if the opening pressure is greater than 20 then the patient have CSF removed until the opening pressure returns back to normal which is less than 20. This will be ordered. The patient's results were discussed with the patient, including the plan of care. I explained that further testing and/ or monitoring is indicated based on the patient's history, examination, and/ or laboratory findings. Therefore, I recommended admission for additional evaluation. The patient expressed understanding and was agreeable with this plan. The patient was admitted to the hospital in stable condition and [facility] Physician Communication Physician Communication The patient's case including history, pertinent physical examination findings, and laboratory studies were discussed with Dr. Haddad and Dr. Castellanos. It was agreed that the patient would be admitted to the [facility] service. Diagnosis Primary Impression: Headache Qualified Codes: R51 - Headache Additional Impressions: Blurred vision History of idiopathic intracranial hypertension Admitting Information Admitting Physician Requests: Trish Huizar MD Jul 27, 2017 19:41
[2017-07-27 20:00] LABS: BASOPHIL # 0.1 TH/MM3 (0-0.2); BASOPHIL % 0.6 % (0.0-2.0); EOSINOPHIL # 0.3 TH/MM3 (0-0.4); EOSINOPHIL % 2.9 % (0.0-4.0); HEMATOCRIT 35.4 % (35.0-46.0); HEMOGLOBIN 11.8 GM/DL (11.6-15.3); LYMPH % 38.8 % (9.0-44.0); LYMPHOCYTE # 3.8 TH/MM3 (1.0-4.8); MEAN CELL VOLUME 83.1 FL (80.0-100.0); MEAN CORPUSCULAR HEMOGLOBIN 27.7 PG (27.0-34.0); MEAN CORPUSCULAR HGB CONC 33.3 % (32.0-36.0); MEAN PLATELET VOLUME 7.6 FL (7.0-11.0); MONOCYTE # 0.7 TH/MM3 (0-0.9); NEUT % 50.7 % (16.0-70.0); PLATELET COUNT 331 TH/MM3 (150-450); RED BLOOD COUNT 4.27 MIL/MM3 (4.00-5.30); RED CELL DISTRIBUTION WIDTH 13.9 % (11.6-17.2); WHITE BLOOD COUNT 9.9 TH/MM3 (4.0-11.0)
--- NOTE | 2017-07-27 20:00 | RADRPT ---
EXAM DATE/TIME: 07/27/2017 19:38 [facility] COMPARISON: CHEST SINGLE AP, May 03, 2017, 20:18. INDICATIONS : Short of breath, Cough. MEDICAL HISTORY : None. SURGICAL HISTORY : None. ENCOUNTER: Initial ACUITY: 1 day PAIN SCORE: 0/10 LOCATION: Bilateral chest FINDINGS: A single view of the chest demonstrates the lungs to be symmetrically aerated without evidence of mas s, infiltrate or effusion. The cardiomediastinal contours are unremarkable. Osseous structures are intact. CONCLUSION: No acute disease. Sawyer Avila MD on July 27, 2017 at 19:58 Board Certified Radiologist. This report was verified electronically.
[2017-07-27 20:13] LABS: PROTHROMBIN TIME - PATIENT 9.8 SEC (9.8-11.6)
[2017-07-27 20:29] LABS: ALBUMIN 3.3 GM/DL (3.4-5.0); AST (GOT) 21 U/L (15-37); BICARBONATE 29.4 MEQ/L (21.0-32.0); CALCIUM 8.8 MG/DL (8.5-10.1); CHLORIDE 105 MEQ/L (98-107); CREATININE 0.67 MG/DL (0.50-1.00); GLOMERULAR FILTRATION RATE 102 ML/MIN (>89); GLUCOSE,RANDOM 87 MG/DL (74-106); SODIUM (NA) 141 MEQ/L (136-145)
[2017-07-27 20:30] LABS: ALT (GPT) 33 U/L (10-53)
[2017-07-27] MEDS ORDERED: ONDANSETRON HCL 4 MG/2 ML VIAL IV PUSH ONE ×2 (20:30→22:15)
[2017-07-27] MEDS ORDERED: SODIUM CHLORID 0.9% 500 ML INJ 500 ML IV ONE (20:30)
[2017-07-27] MEDS ORDERED: DIAZEPAM 2 MG TAB PO ONE (20:30)
[2017-07-27] MEDS ORDERED: MORPHINE SULFATE 4 MG/ML INJ IV PUSH ONE ×2 (20:30→22:15)
[2017-07-27 20:33] LABS: ALKALINE PHOSPHATASE 73 U/L (45-117); TOTAL BILIRUBIN ADULT 0.2 MG/DL (0.2-1.0); TOTAL PROTEIN 7.4 GM/DL (6.4-8.2)
[2017-07-27 20:39] LABS: BLOOD UREA NITROGEN 10 MG/DL (7-18)
[2017-07-27 20:53] LABS: AMORPHOUS SEDIMENT, URINE RARE; BACTERIA, URINE RARE /hpf; BILIRUBIN, URINE NEG (NEG); BLOOD, URINE NEG (NEG); GLUCOSE,URINE NEG (NEG); KETONE, URINE NEG (NEG); MUCUS URINE FEW /lpf (OCC); NITRITE,URINE NEG (NEG); PH, URINE 7.5 (5.0-8.5); SQUAMOUS EPITHELIAL CELL URINE 18 /hpf (0-5); URINE COLOR YELLOW (YELLW/STRAW); URINE LEUKOCYTE ESTERASE NEG (NEG)
--- NOTE | 2017-07-27 20:59 | RADRPT ---
EXAM DATE/TIME: 07/27/2017 20:45 [facility] COMPARISON: CT BRAIN W/O CONTRAST, July 10, 2017, 18:32. INDICATIONS : Headaches. RADIATION DOSE: 37.03 CTDIvol (mGy) MEDICAL HISTORY : Seizures. Hypertension. SURGICAL HISTORY : None. ENCOUNTER: Initial ACUITY: 1 day PAIN SCALE: 8/10 LOCATION: Bilateral cranial TECHNIQUE: Multiple contiguous axial images were obtained of the head. Using automated exposure control and adj ustment of the mA and/or kV according to patient size, radiation dose was kept as low as reasonably a chievable to obtain optimal diagnostic quality images. DICOM format image data is available electro nically for review and comparison. FINDINGS: CEREBRUM: The ventricles are normal for age. No evidence of midline shift, mass lesion, hemorrhage or acute in farction. No extra-axial fluid collections are seen. POSTERIOR FOSSA: The cerebellum and brainstem are intact. The 4th ventricle is midline. The cerebellopontine angle i s unremarkable. EXTRACRANIAL: The visualized portion of the orbits is intact. SKULL: The calvaria is intact. No evidence of skull fracture. CONCLUSION: Normal examination. Sawyer Avila MD on July 27, 2017 at 20:57 Board Certified Radiologist. This report was verified electronically.
[2017-07-27] MEDS: SODIUM CHLOR 0.9% 1000 ML INJ 1,000 ML IV SCH (22:19)
[2017-07-27] MEDS ORDERED: MORPHINE SULFATE 2 MG/ML SYRINGE IV PUSH PRN (22:30)
[2017-07-27] MEDS ORDERED: NALOXONE HCL 0.4 MG/ML AMP IV PUSH PRN (22:30)
[2017-07-27] MEDS ORDERED: ACETAMINOPHEN 325 MG TAB PO PRN (22:30)
[2017-07-27] MEDS ORDERED: GADODIAMIDE PF 287 MG/ML 20 ML VIAL (for RAD MRI) IVCONTRAST ONE (22:32)
--- NOTE | 2017-07-27 23:08 | RADRPT ---
EXAM DATE/TIME: 07/27/2017 22:26 [facility] COMPARISON: No previous studies available for comparison. INDICATIONS : Seizures. Blurred vision. CONTRAST: 20 cc Omniscan (gadodiamide) IV MEDICAL HISTORY : Seizures. Pseudotumor cerebri. SURGICAL HISTORY : Cholecystectomy. section. ENCOUNTER: Initial ACUITY: 1 day PAIN SCORE: 0/10 LOCATION: cranial TECHNIQUE: Multiplanar, multisequence MRI of the brain was performed both prior to and following the administrat ion of paramagnetic contrast. FINDINGS: CEREBRUM: The ventricles are normal for age. No evidence of midline shift, mass lesion, hemorrhage or acute in farction. No extraaxial fluid collections are seen. The pituitary gland and suprasellar cistern are normal in configuration. WHITE MATTER: No significant signal abnormalities are seen in the white matter. POSTERIOR FOSSA: The cerebellum and brainstem are intact. The 4th ventricle is midline. The cerebellopontine angle is unremarkable. The cerebellar tonsils are normal in position. DIFFUSION IMAGING: No focal areas of restricted diffusion are seen. No evidence of acute infarction. EXTRACRANIAL: The visualized portions of the orbits and paranasal sinuses are unremarkable. POST-CONTRAST: No abnormal areas of parenchymal or dural enhancement. No evidence of blood-brain barrier breakdown. CONCLUSION: Normal examination. Wallace Parker MD on July 27, 2017 at 23:04 Board Certified Radiologist. This report was verified electronically.
--- NOTE | 2017-07-28 00:03 | HHI.HP ---
[facility] Unknown Admission Diagnosis Seizure, Intractable headache with vision change, h/o IIH Diagnoses: Travel History International Travel<30 Days: No Contact w/Intl Traveler <30 Da: No Traveled to Known Affected Are: No History of Present Illness 32-year-old female with past medical history significant for pseudotumor cerebri , neurologist is Dr. Haddad, presents to the emergency department for evaluation of severe migraine headache and concern for possible seizure. The patient reports that her noticed that she had a blank stare for approximately 5 minutes during which time she was nonresponsive. The patient states that this has happened in the past and usually precedes her severe headaches. She has never been on antiseizure medication with the exception of Topamax for migraine prophylaxis. The patient reports her headache is severe and she is having significant ocular pain/pressure. The symptoms started today. Patient denies any nausea/vomiting. No abdominal pain or diarrhea. No chest pain/shortness of breath. Review of Systems Except as stated in HPI: all other systems reviewed are Neg Past Family Social History Past Medical History Pseudotumor cerebri History of renal stones Past Surgical History Multiple lumbar punctures Renal stent placement - left Reported Medications Reported Meds & Active Scripts Active Doxycycline Hyclate 100 Mg Cap 100 Mg PO BID Clindamycin (Clindamycin HCl) 150 Mg Cap 300 Mg PO QID Valium (Diazepam) 5 Mg Tab 5 Mg PO BID PRN 30 Days Oxycodone-Acetaminophen 10-325 (Oxycodone HCl/Acetaminophen) 10 Mg-325 Mg Tablet 1 Tab PO Q6H PRN 30 Days Meclizine (Meclizine HCl) 25 Mg Tab 25 Mg PO TID PRN 30 Days Lasix (Furosemide) 40 Mg Tab 40 Mg PO BID 30 Days Diamox Sequels ER 12 HR (Acetazolamide) 500 Mg Cap 500 Mg PO TID 30 Days Potassium Chloride ER (Potassium Chloride) 20 Meq Tab 20 Meq PO DAILY 30 Days Topamax (Topiramate) 50 Mg Tab 100 Mg PO BID 30 Days Reported Reglan (Metoclopramide HCl) 10 Mg Tab 10 Mg PO QID Allergies: Coded Allergies: Sulfa (Sulfonamide Antibiotics) (Verified Allergy, Severe, RASH, 07/27/17) amoxicillin (Verified Allergy, Severe, Anaphylaxis, 07/27/17) ketorolac (Verified Allergy, Severe, Anaphylaxis, 07/27/17) anaphylaxis per patient ibuprofen (Verified Allergy, Intermediate, HIVES, FACIAL SWELLING., 07/27/17 ) tramadol (Verified Allergy, Intermediate, HIVES, 07/27/17) hives, sewll up latex (Verified Allergy, Unknown, 07/27/17) penicillin G (Verified Allergy, Unknown, HIVES, 07/27/17) prochlorperazine (Verified Allergy, Unknown, HIVES, 07/27/17) sumatriptan (Verified Adverse Reaction, Severe, VOMITING PASSED OUT, ) Family History Denies family history of CAD/DM Social History Smokes a cigarette approximately every 3 days. Denies alcohol, illicit drugs. Physical Exam Vital Signs Vital Signs Date Time Temp Pulse Resp B/P (MAP) Pulse Ox O2 Delivery O2 Flow Rate FiO2 07/27/17 19:39 Room Air 07/27/17 19:03 98.3 72 18 152/78 (102) 99 Physical Exam GENERAL: Obese female lying in bed SKIN: No rashes, ecchymoses or lesions. Cool and dry. HEAD: Atraumatic. Normocephalic. No temporal or scalp tenderness. EYES: Pupils equal round and reactive. Extraocular motions intact. No scleral icterus. No injection or drainage. ENT: Nose without bleeding, purulent drainage or septal hematoma. Throat without erythema, tonsillar hypertrophy or exudate. Uvula midline. Airway patent. NECK: Trachea midline. No JVD or lymphadenopathy. Supple, nontender, no meningeal signs. CARDIOVASCULAR: Regular rate and rhythm without murmurs, gallops, or rubs. RESPIRATORY: Clear to auscultation. Breath sounds equal bilaterally. No wheezes , rales, or rhonchi. GASTROINTESTINAL: Abdomen soft, non-tender, nondistended. No hepato-splenomegaly , or palpable masses. No guarding. MUSCULOSKELETAL: Extremities without clubbing, cyanosis, or edema. No joint tenderness, effusion, or edema noted. No calf tenderness. NEUROLOGICAL: Awake and alert. Cranial nerves II through XII intact. Motor and sensory grossly within normal limits. Normal speech. Laboratory Laboratory Tests Test 07/27/17 19:54 07/27/17 20:40 White Blood Count 9.9 Red Blood Count 4.27 Hemoglobin 11.8 Hematocrit 35.4 Mean Corpuscular Volume 83.1 Mean Corpuscular Hemoglobin 27.7 Mean Corpuscular Hemoglobin Concent 33.3 Red Cell Distribution Width 13.9 Platelet Count 331 Mean Platelet Volume 7.6 Neutrophils (%) (Auto) 50.7 Lymphocytes (%) (Auto) 38.8 Monocytes (%) (Auto) 7.0 Eosinophils (%) (Auto) 2.9 Basophils (%) (Auto) 0.6 Neutrophils # (Auto) 5.0 Lymphocytes # (Auto) 3.8 Monocytes # (Auto) 0.7 Eosinophils # (Auto) 0.3 Basophils # (Auto) 0.1 CBC Comment DIFF FINAL Differential Comment Prothrombin Time 9.8 Prothromb Time International Ratio 1.0 Activated Partial Thromboplast Time 26.1 Blood Urea Nitrogen 10 Creatinine 0.67 Random Glucose 87 Total Protein 7.4 Albumin 3.3 Calcium Level 8.8 Magnesium Level 2.0 Alkaline Phosphatase 73 Aspartate Amino Transf (AST/SGOT) 21 Alanine Aminotransferase (ALT/SGPT) 33 Total Bilirubin 0.2 Sodium Level 141 Potassium Level 3.5 Chloride Level 105 Carbon Dioxide Level 29.4 Anion Gap 7 Estimat Glomerular Filtration Rate 102 Lipase 84 Ethyl Alcohol Level LESS THAN 3 Urine Color YELLOW Urine Turbidity HAZY Urine pH 7.5 Urine Specific Moran 1.020 Urine Protein TRACE Urine Glucose (UA) NEG Urine Ketones NEG Urine Occult Blood NEG Urine Nitrite NEG Urine Bilirubin NEG Urine Urobilinogen 2.0 Urine Leukocyte Esterase NEG Urine RBC 1 Urine WBC 1 Urine Squamous Epithelial Cells 18 Urine Amorphous Sediment RARE Urine Bacteria RARE Urine Mucus FEW Microscopic Urinalysis Comment CULT NOT INDICATED Urine Opiates Screen NEG Urine Barbiturates Screen NEG Urine Amphetamines Screen NEG Urine Benzodiazepines Screen POS Urine Cocaine Screen NEG Urine Cannabinoids Screen POS Result Diagram: 07/27/17195307/27/171953 Caprini VTE Risk Assessment Caprini VTE Risk Assessment: No/Low Risk (score <= 1) Caprini Risk Assessment Model Point Value = 1 Point Value = 2 Point Value = 3 Point Value = 5 Age 41-60 Minor surgery BMI > 25 kg/m2 Swollen legs Varicose veins or History of unexplained or recurrent spontaneous Oral contraceptives or hormone replacement Sepsis (< 1 month) Serious lung disease, including pneumonia (< 1 month) Abnormal pulmonary function Acute myocardial infarction Congestive heart failure (< 1 month) History of inflammatory bowel disease Medical patient at bed rest Age 61-74 Arthroscopic surgery Major open surgery (> 45 min) Laparoscopic surgery (> 45 min) Malignancy Confined to bed (> 72 hours) Immobilizing plaster cast Central venous access Age >= 75 History of VTE Family history of VTE Factor V Leiden Prothrombin 52362A Lupus anticoagulant Anticardiolipin antibodies Elevated serum homocysteine Heparin-induced thrombocytopenia Other congenital or acquired thrombophilia Stroke (< 1 month) Elective arthroplasty Hip, pelvis, or leg fracture Acute spinal cord injury (< 1 month) Prophylaxis Regimen Total Risk Factor Score Risk Level Prophylaxis Regimen 0-1 Low Early ambulation 2 Moderate Order ONE of the following: *Sequential Compression Device (SCD) *Heparin 5000 units SQ BID 3-4 Higher Order ONE of the following medications: *Heparin 5000 units SQ TID *Enoxaparin/Lovenox 40 mg SQ daily (WT < 150 kg, CrCl > 30 mL/min) *Enoxaparin/Lovenox 30 mg SQ daily (WT < 150 kg, CrCl > 10-29 mL/min) *Enoxaparin/Lovenox 30 mg SQ BID (WT < 150 kg, CrCl > 30 mL/min) AND/OR *Sequential Compression Device (SCD) 5 or more Highest Order ONE of the following medications: *Heparin 5000 units SQ TID (Preferred with Epidurals) *Enoxaparin/Lovenox 40 mg SQ daily (WT < 150 kg, CrCl > 30 mL/min) *Enoxaparin/Lovenox 30 mg SQ daily (WT < 150 kg, CrCl > 10-29 mL/min) *Enoxaparin/Lovenox 30 mg SQ BID (WT < 150 kg, CrCl > 30 mL/min) AND *Sequential Compression Device (SCD) Assessment and Plan Assessment and Plan Assessment/plan: 1. Pseudotumor cerebri Neurology consulted, appreciate recommendations Interventional radiology consulted for LP tomorrow Morphine for pain MRI brain 2. Concern for possible seizure Appreciate neurology recommendations EEG pending FEN NPO Electrolytes: monitor and replete prn NS at 100 cc/hr Sharyn Castellanos MD Jul 28, 2017 00:03
[2017-07-28] MEDS: HYDROmorphone HCL PF 2 MG/ML VIAL IV PUSH PRN ×5 (02:11→20:24)
[2017-07-28 05:33] VITALS: BP 100/57; PULSE 56; RESP 18; O2SAT 96
[2017-07-28 07:56] VITALS: BP 107/55; PULSE 52; RESP 18; TEMP 98.2; O2SAT 96
[2017-07-28] MEDS: POTASSIUM CHLORIDE 20 MEQ CONTROLLED RELEASE TAB PO SCH (08:17)
[2017-07-28] MEDS: SODIUM CHLORIDE 0.9% FLUSH 10 ML FLUSH IV FLUSH SCH ×2 (08:17→20:23)
[2017-07-28] MEDS: TOPIRAMATE 25 MG TAB PO SCH ×2 (08:17→20:23)
[2017-07-28] MEDS: FUROSEMIDE 40 MG TAB PO SCH ×2 (08:17→20:23)
[2017-07-28] MEDS: MECLIZINE HCL 25 MG TAB PO PRN (08:18)
[2017-07-28] MEDS: SODIUM CHLOR 0.9% 1000 ML INJ 1,000 ML IV SCH ×2 (08:19→18:19)
[2017-07-28] MEDS: METOCLOPRAMIDE HCL 10 MG TAB PO SCH ×4 (08:28→20:23)
--- NOTE | 2017-07-28 08:50 | EKG ---
Date Performed: 07/27/2017 Time Performed: 19:48:30 PTAGE: 32 years EKG: Sinus rhythm NORMAL ECG NO PREVIOUS TRACING DOCTOR: Amanda Steiner Interpretating Date/Time 07/28/2017 08:49:12
--- NOTE | 2017-07-28 09:51 | MB ---
cc: Peter Weeks MD DATE: 07/28/2017 HISTORY OF PRESENT ILLNESS: The patient is well known to neurology and neurosurgery here. She has a history of kidney stones, had been very healthy, has been diagnosed with pseudotumor cerebri for about 5 years. I saw her in November of 2016. She had known increased pressure. She was on Diamox 500 b.i.d., Lasix and Topamax 50 b.i.d. She has had 2 lumbar punctures, opening pressure about 30. Dr. Tillman thought her headaches were about of portion to the opening pressure, although she reported improved vision after the lumbar puncture. She thought she should get an optic nerve fenestration. She tells me her headaches have been improved when she gets lumbar punctures. She has had progressive vision loss at least since last October, afraid to drive. She had an MR venogram in 2015 that was normal of the brain. MRI of the brain was normal; ventricles were somewhat small at that time consistent with pseudotumor. Ophthalmology saw her and did not note any papilledema. She tells me her vision has been worsened in the last 3 days in the left eye now. She has had a few episodes when she gets a bad headache with maybe some brief loss period of time. She said she bit her tongue once. SOCIAL HISTORY: Not a smoker or drinker, lives with her . FAMILY HISTORY: Negative for cancer, seizure, stroke. REVIEW OF SYSTEMS: Denies hypertension, diabetes, hypercholesterolemia, anemia, UT, CABG, cardiac arrhythmia, renal, hepatic, pulmonary disease, thyroid disease, lupus, ulcer known seizure or stroke. She tells me she had an LP done 2 weeks ago. An MRI of the brain done here that was read as normal yesterday. Head CT also normal. Chest x-ray negative. She had another MR venogram done 07/12/2017 had a signal dropout in the left transverse sinus and torcula new when compared to a study from 2017 and I thought it was probably artifactual. She had an LP done in June. I do not see where they noted an opening pressure on exam. MEDICATIONS: She has been on Diamox 500 t.i.d. and Topamax 125 b.i.d. She takes doxycycline, clindamycin, Valium, oxycodone, meclizine, and Reglan. ALLERGIES: SULFA, AMOXICILLIN, IBUPROFEN, TRAMADOL, LATEX, PENICILLIN, COMPAZINE, SUMATRIPTAN. PHYSICAL EXAMINATION: GENERAL: She is obese. She says she has lost 100 pounds with still rather obese. VITAL SIGNS: Afebrile, 52, 18 107/55. NECK: No carotid bruits. HEART: Regular rhythm. I do not detect a murmur. NEUROLOGIC: Pupils are equal. Discs actually sharp on the right side. Visual hyatt are restricted peripherally in all the visual hyatt in the right eye and in the left superior region on the left eye and likely a little bit in the left lateral inferior region also. She says it is blurry. She does not have her contacts on to read and she does need those for reading. Extraocular movements intact without nystagmus. Face is symmetric with normal sensation. Tongue was midline. No drift. Normal strength of upper and lower extremities bilaterally. DTRs trace throughout. Toes downgoing bilaterally. No ankle clonus. Pinprick was intact throughout. Speech was fluent; she is not aphasic. Alert and oriented. LABORATORY DATA: CBC is normal. Sedimentation rate has been 30. RPR has been negative. MARY has been negative. On last LP CSF was clear in March 2017. Urine drug screen positive for benzos and marijuana. UA negative. Basic metabolic profile and LFTs normal. CRP has been essentially normal in the past. Thyroid has been normal. Prolactin has been normal in the past. Coags normal. ASSESSMENT AND PLAN: Pseudotumor. I did talk with Dr. Bhatti. He will come by and assess her. She does not have insurance, we will have [employer] help. She says she gets Medicaid and then after a month they drop her, but it is concerned she is starting to have vision loss on the left, although no papilledema noted on my exam in the right eye. I will also just check an EEG on her. I think it is probably unlikely she developed any significant seizures though. MD EUSEBIA Peraza/HUDSON , 09:14 AM , 09:50 AM
[2017-07-28 11:51] VITALS: BP 121/59; PULSE 51; RESP 18; TEMP 98.3; O2SAT 98
[2017-07-28] MEDS: acetaZOLAMIDE SEQUELS 500 MG SUSTAINED RELEASE CAP PO SCH ×2 (12:09→18:38)
[2017-07-28 14:14] LABS: AUTOMATED NEUTROPHIL # 3.5 TH/MM3 (1.8-7.7); BASOPHIL % 0.4 % (0.0-2.0); EOSINOPHIL # 0.2 TH/MM3 (0-0.4); EOSINOPHIL % 2.9 % (0.0-4.0); HEMATOCRIT 33.3 % (35.0-46.0); HEMOGLOBIN 11.1 GM/DL (11.6-15.3); LYMPH % 42.3 % (9.0-44.0); LYMPHOCYTE # 3.1 TH/MM3 (1.0-4.8); MEAN CELL VOLUME 83.2 FL (80.0-100.0); MEAN CORPUSCULAR HEMOGLOBIN 27.7 PG (27.0-34.0); MEAN CORPUSCULAR HGB CONC 33.3 % (32.0-36.0); MEAN PLATELET VOLUME 7.8 FL (7.0-11.0); MONOCYTE # 0.5 TH/MM3 (0-0.9); NEUT % 47.4 % (16.0-70.0); PLATELET COUNT 294 TH/MM3 (150-450); RED CELL DISTRIBUTION WIDTH 13.6 % (11.6-17.2); WHITE BLOOD COUNT 7.4 TH/MM3 (4.0-11.0)
[2017-07-28 14:31] LABS: BICARBONATE 26.6 MEQ/L (21.0-32.0); CALCIUM 8.8 MG/DL (8.5-10.1); CREATININE 0.53 MG/DL (0.50-1.00)
[2017-07-28 15:22] VITALS: BP 117/62; PULSE 62; RESP 18; TEMP 98.2; O2SAT 97
[2017-07-28] MEDS: ONDANSETRON HCL 4 MG/2 ML VIAL IVP PRN (16:18)
--- NOTE | 2017-07-28 18:52 | MG ---
cc: Peter Weeks MD TEST NUMBER: [id number] A 32-year-old, benign intracranial hypertension, change in mental status, Topamax, question seizure, lost period of time. A symmetric 10-11 Hz, 60 mV posterior rhythm is noted. At times, there is some asymmetry in the background over the left temporal head region compared to the right, such as at epoch 9. Some prominent alpha waves are seen there and some slowing is noted in the theta range. It looks more impressive on the bipolar than the transverse montage, almost like some phase reversing in the left posterior head region. Some phase reversing theta waves are seen again over the left posterior temporal head region. Some more abnormal activity again is seen with some diffuse 6 Hz theta slowing, but again, over the left posterior temporal head region. It looks focally abnormal. She is noted to be asleep, does not quite reach stage II sleep. Some vertex sharp waves are noted then as she does reach stage II sleep. Photic stimulation is performed without significant posterior driving. IMPRESSION: Some left posterior temporal abnormalities. It sometimes looks slightly epileptiform and a lesion here should be ruled out. No ongoing seizure activity was noted. This could be a seizure focus for this patient. MD EUSEBIA Peraza/HUDSON , 05:59 PM , 06:52 PM
[2017-07-28 19:24] VITALS: BP 103/61; PULSE 67; RESP 18; TEMP 98; O2SAT 97
[2017-07-29] MEDS: SODIUM CHLORIDE 0.9% FLUSH 10 ML FLUSH IV FLUSH PRN ×2 (02:08→06:04)
[2017-07-29] MEDS: HYDROmorphone HCL PF 2 MG/ML VIAL IV PUSH PRN ×6 (02:08→20:26)
[2017-07-29 04:19] VITALS: BP 103/53; PULSE 59; RESP 18; TEMP 97.8; O2SAT 98
[2017-07-29] MEDS: SODIUM CHLOR 0.9% 1000 ML INJ 1,000 ML IV SCH ×3 (04:19→23:28)
[2017-07-29] MEDS: POTASSIUM CHLORIDE 20 MEQ CONTROLLED RELEASE TAB PO SCH (07:32)
[2017-07-29] MEDS: FUROSEMIDE 40 MG TAB PO SCH ×2 (07:32→20:26)
[2017-07-29] MEDS: ONDANSETRON HCL 4 MG/2 ML VIAL IVP PRN (07:32)
[2017-07-29] MEDS: TOPIRAMATE 25 MG TAB PO SCH ×2 (07:32→20:25)
[2017-07-29] MEDS: acetaZOLAMIDE SEQUELS 500 MG SUSTAINED RELEASE CAP PO SCH ×3 (07:32→16:32)
--- NOTE | 2017-07-29 07:33 | HHI.PR ---
Subjective Remarks DELCID A LITTLE BETTER Objective Vital Signs Date Time Temp Pulse Resp B/P (MAP) Pulse Ox O2 Delivery O2 Flow Rate FiO2 07/29/17 06:33 15 07/29/17 04:19 97.8 59 18 103/53 (70) 98 07/28/17 19:24 98.0 67 18 103/61 (75) 97 07/28/17 15:22 98.2 62 18 117/62 (80) 97 07/28/17 11:51 98.3 51 18 121/59 (79) 98 07/28/17 07:56 98.2 52 18 107/55 (72) 96 I/O 07/28/17 07/28/17 07/28/17 07/29/17 07/29/17 07/29/17 07:00 15:00 23:00 07:00 15:00 23:00 Output Total 500 ml Balance -500 ml Output Urine Total 500 ml # Voids 1 Result Diagram: 07/28/17 1346 07/28/17 1346 Objective Remarks awake alert speech clear Assessment and Plan Assessment and Plan imp mri nl eeg some t5 left temp sharp-slows but nl there on mri no aed for now await [facility] for lumbar shunt Peter Weeks MD Jul 29, 2017 07:33
[2017-07-29 08:05] VITALS: BP 107/54; PULSE 61; RESP 18; TEMP 97.8; O2SAT 96
[2017-07-29] MEDS: SODIUM CHLORIDE 0.9% FLUSH 10 ML FLUSH IV FLUSH SCH ×2 (09:00→20:25)
[2017-07-29] MEDS: METOCLOPRAMIDE HCL 10 MG TAB PO SCH ×4 (09:00→20:26)
[2017-07-29] MEDS ORDERED: LORazepam 1 MG TAB PO ONE (09:30)
[2017-07-29] MEDS ORDERED: LORazepam 2 MG/ML VIAL IV ONE (11:00)
[2017-07-29 11:33] VITALS: BP 95/49; PULSE 64; RESP 18; TEMP 98.2; O2SAT 97
[2017-07-29 11:43] VITALS: BP 112/71
--- NOTE | 2017-07-29 13:11 | PD.RAD ---
Post Procedure Progress Note Pre Procedure Diagnosis: (1) Pseudotumor cerebri Post Procedure Diagnosis: (1) Pseudotumor cerebri Procedure Date: Jul 29, 2017 Supervising Radiologist: Peter Barcenas Proceduralist/Assist: Thomas Duke RT(R), Mercedes Jensen RT(R)(CV) Anesthesia: Local Plan of Activity Patient to Unit: ROPU Patient Condition: Good See PACS Report for procedural detail/treatment Spinal Procedure Lumbar Puncture Fluid Removal (CCs): 25 Fluid Description: Clear Findings: opening pressure 31 closing pressure 7 Peter Barcenas MD Jul 29, 2017 13:11
[2017-07-29] MEDS: MECLIZINE HCL 25 MG TAB PO PRN (14:20)
[2017-07-29 15:41] VITALS: BP 98/50; PULSE 75; RESP 18; TEMP 98.1; O2SAT 93
--- NOTE | 2017-07-29 15:42 | RADRPT ---
EXAM DATE/TIME: 07/29/2017 11:26 [facility] COMPARISON: CT ABDOMEN & PELVIS W/O CONTRAST, July 23, 2017, 9:34. CT BRAIN W/O CONTRAST, July 27, 2017, 20:45 . LUMBAR PUNCTURE W/OPENING PRESSURES, April 10, 2017, 12:33. INDICATIONS : Patient with a history of pseudotumor cerebri.Complaining of headaches and blurred vision. MEDICAL HISTORY : 1. Pseudotumor cerebri 2. Blurred vision 3. Hx of renal stones 4. seizures SURGICAL HISTORY : 1. Multiple lumbar punctures 2. renal stent ENCOUNTER: Initial ACUITY: 3 days PAIN SCORE: LUMBAR PUNCTURE TIME: 1219 hours FLUORO TIME: 0.9 minutes IMAGE SERIES: 2 ACCESS LEVEL: L2-3 OPENING PRESSURE: 31 cm of water cc of CSF was collected and sent to the laboratory for analysis. TECH NOTE; no CSF was sent to lab per ordering Dr. 25 cc clear CSF was taken off.SAUL HUI MR#[id number] : 85 Exam date/desc:July 29, 2017LUMBAR PUNCTURE W/OPENING PRESSURES PROCEDURE : 1. Fluoroscopic guided lumbar puncture. 2. Recording of opening pressure. The risks, benefits and alternatives to the procedure were explained and verbal and written consent w as obtained. The site was prepped in sterile fashion. Full sterile technique was used, including ca p, mask, sterile gloves and gown and a large sterile sheet. Hand hygiene and 2% chlorhexidine and/or betadine/alcohol prep was utilized per protocol for cutaneous antisepsis. The skin and subcutaneous tissues were infiltrated with local anesthetic solution. With fluoroscopic guidance the lumbar thecal sac was punctured at the above level described above and the opening pressure was recorded. The above described fluid was removed without difficulty. The patient tolerated the procedure well and there were no complications. CONCLUSION: Uncomplicated fluoroscopically guided lumbar puncture with pressures as above. Peter Barcenas MD on July 29, 2017 at 15:39 Board Certified Radiologist. This report was verified electronically.
--- NOTE | 2017-07-29 16:30 | HHI.PR ---
Subjective Remarks Patient says that headache has improved after LP. Denies any chest pain or shortness of breath. She reports ulcer of her right back which was previously treated but never really healed. Objective Vital Signs Date Time Temp Pulse Resp B/P (MAP) Pulse Ox O2 Delivery O2 Flow Rate FiO2 07/29/17 15:41 98.1 75 18 98/50 (66) 93 07/29/17 11:43 112/71 (85) Automatic Cuff 07/29/17 11:43 07/29/17 11:33 98.2 64 18 95/49 (64) 97 07/29/17 08:05 97.8 61 18 107/54 (71) 96 07/29/17 06:33 15 07/29/17 04:19 97.8 59 18 103/53 (70) 98 07/28/17 19:24 98.0 67 18 103/61 (75) 97 I/O 07/28/17 07/28/17 07/28/17 07/29/17 07/29/17 07/29/17 07:00 15:00 23:00 07:00 15:00 23:00 Output Total 500 ml Balance -500 ml Output Urine Total 500 ml # Voids 1 Result Diagram: 07/28/17 1346 07/28/17 1346 Objective Remarks GENERAL: She is sitting up in bed. Appears comfortable. Alert and oriented 3. SKIN: Warm and dry. 1 x 1 cm ulcer over the right back with some surrounding induration. No erythema. HEAD: Normocephalic. EYES: No scleral icterus. No injection or drainage. NECK: Supple, trachea midline. No JVD. CARDIOVASCULAR: Regular rate and rhythm without murmurs, gallops, or rubs. RESPIRATORY: Breath sounds equal bilaterally. No accessory muscle use. GASTROINTESTINAL: Abdomen soft, non-tender, nondistended. MUSCULOSKELETAL: No cyanosis, or edema. BACK: Nontender without obvious deformity. No CVA tenderness. A/P Assessment and Plan // Pseudotumor cerebri Neurology consulted, appreciate recommendations Interventional radiology consulted for LP tomorrow Morphine for pain MRI brain normal = Status post LP 07/29 with improvement. Neurology following. Neurosurgery evaluation for [address] [employer] shunt. // Concern for possible seizure Appreciate neurology recommendations EEG pending = Neurology following. Appreciate assistance //Ulcer over right back. Appears to be abscess which is incompletely drained. Will order Santyl. Wound care nurse. Appreciate assistance. FEN NPO Electrolytes: monitor and replete prn NS at 100 cc/hr Discharge Planning Pending neurosurgery evaluation. Alexander Hernández MD Jul 29, 2017 16:30
[2017-07-29] MEDS ORDERED: COLLAGENASE OINT 30 GM TUBE TOPICAL ONE (18:00)
[2017-07-29] MEDS: LACTOBACILLUS ACIDOPHILUS TAB PO SCH (18:20)
[2017-07-29] MEDS: CLINDAMYCIN 150 MG CAP PO SCH ×2 (18:20→22:29)
[2017-07-29 19:13] VITALS: BP 101/56; PULSE 83; RESP 18; TEMP 98.1; O2SAT 94
[2017-07-29] MEDS ORDERED: HYDROmorphone HCL PF 2 MG/ML VIAL IV ONE (22:30)
[2017-07-29] MEDS ORDERED: HYDROmorphone HCL PF 1 MG/ML VIAL IV PUSH ONE (22:30)
--- NOTE | 2017-07-29 22:56 | PD.CONS ---
History of Present Illness Service Neurosurgery Consult Requested By Neurology Reason for Consult pseudotumor cerebri Primary Care Physician Unknown Diagnoses: History of Present Illness 32-year-old female previously seen initially for neurosurgery evaluation in the hospital by Dr. Tillman for pseudotumor cerebri. Optic nerve fenestration recommended. Patient was initially to go to [facility] for evaluation, apparently not seen due to insurance issues. More recently followed by neurosurgery and Michael. She is followed by Dr. Arndt locally for ophthalmology. She came into the hospital within the past couple of weeks with complaint of increasing headaches and visual loss. The undersigned was out of town during the end of her recent hospitalization. She apparently was again recommended to have optic nerve fenestration. She returns back to the emergency room now with complaint of persistent visual loss. She has had venogram 2 in the past few months, both without definite abnormalities. She has had multiple lumbar punctures, mostly with opening pressures in the low 20 to low 30 range. Review of Systems Constitutional: DENIES: Fever Eyes: COMPLAINS OF: Blurred vision Cardiovascular: DENIES: Chest pain Gastrointestinal: DENIES: Nausea Neurologic: COMPLAINS OF: Headache, DENIES: Abnormal gait Past Family Social History Allergies: Coded Allergies: Sulfa (Sulfonamide Antibiotics) (Verified Allergy, Severe, RASH, 07/27/17) amoxicillin (Verified Allergy, Severe, Anaphylaxis, 07/27/17) ketorolac (Verified Allergy, Severe, Anaphylaxis, 07/27/17) anaphylaxis per patient ibuprofen (Verified Allergy, Intermediate, HIVES, FACIAL SWELLING., 07/27/17 ) tramadol (Verified Allergy, Intermediate, HIVES, 07/27/17) hives, sewll up latex (Verified Allergy, Unknown, 07/27/17) penicillin G (Verified Allergy, Unknown, HIVES, 07/27/17) prochlorperazine (Verified Allergy, Unknown, HIVES, 07/27/17) sumatriptan (Verified Adverse Reaction, Severe, VOMITING PASSED OUT, ) Physical Exam Vital Signs Vital Signs Date Time Temp Pulse Resp B/P (MAP) Pulse Ox O2 Delivery O2 Flow Rate FiO2 07/29/17 20:56 18 07/29/17 19:13 98.1 83 18 101/56 (71) 94 07/29/17 15:41 98.1 75 18 98/50 (66) 93 07/29/17 11:43 112/71 (85) Automatic Cuff 07/29/17 11:43 07/29/17 11:33 98.2 64 18 95/49 (64) 97 07/29/17 08:05 97.8 61 18 107/54 (71) 96 07/29/17 04:19 97.8 59 18 103/53 (70) 98 Physical Exam GENERAL: This is a well-nourished, well-developed patient, in no apparent distress. SKIN: No rashes, ecchymoses or lesions. Cool and dry. HEAD: Atraumatic. Normocephalic. No temporal or scalp tenderness. EYES: Pupils equal round and reactive. Extraocular motions intact. No scleral icterus. No injection or drainage. ENT: Nose without bleeding, purulent drainage or septal hematoma. Throat without erythema, tonsillar hypertrophy or exudate. Uvula midline. Airway patent. NECK: Trachea midline. No JVD or lymphadenopathy. Supple, nontender, no meningeal signs. CARDIOVASCULAR: Regular rate and rhythm without murmurs, gallops, or rubs. RESPIRATORY: Clear to auscultation. Breath sounds equal bilaterally. No wheezes , rales, or rhonchi. GASTROINTESTINAL: Abdomen soft, non-tender, nondistended. No hepato-splenomegaly , or palpable masses. No guarding. MUSCULOSKELETAL: Extremities without clubbing, cyanosis, or edema. No joint tenderness, effusion, or edema noted. No calf tenderness. Negative Homans sign bilaterally. NEUROLOGICAL: Awake and alert. Cranial nerves II through XII intact except C/O significant decreased vision all quadrants bilateral. Motor and sensory grossly within normal limits. Five out of 5 muscle strength in all muscle groups. Normal speech. Result Diagram: 07/28/17 1346 07/28/17 1346 Imaging Last Impressions Lumbar Puncture Fluoroscopy 07/29/17 0000 Signed Impressions: Service Date/Time: Saturday, July 29, 2017 11:26 - CONCLUSION: Uncomplicated fluoroscopically guided lumbar puncture with pressures as above. Peter Barcenas MD Head CT [id number]/27/171931 Signed Impressions: Service Date/Time: Thursday, July 27, 2017 20:45 - CONCLUSION: Normal examination. Sawyer Avila MD Chest X-Ray [id number]/27/171931 Signed Impressions: Service Date/Time: Thursday, July 27, 2017 19:38 - CONCLUSION: No acute disease. Sawyer Avila MD Brain MRI 07/27/17 0000 Signed Impressions: Service Date/Time: Thursday, July 27, 2017 22:26 - CONCLUSION: Normal examination. Wallace Parker MD Assessment and Plan Assessment and Plan Imp: History of Pseudotumor Rec: Review Ophthalmology notes when available Advised patient that DELCID are unlikely to resolve with shunt and would not be a primary indication for procedure. Possible shunt placement 07/31/17 pending above review Mamadou Cerrato MD Jul 29, 2017 22:56
[2017-07-30] MEDS: HYDROmorphone HCL PF 2 MG/ML VIAL IV PUSH PRN ×5 (00:29→14:05)
[2017-07-30] MEDS: MECLIZINE HCL 25 MG TAB PO PRN (00:29)
[2017-07-30 03:35] VITALS: BP 109/53; PULSE 66; RESP 18; TEMP 97.8; O2SAT 94
[2017-07-30] MEDS: CLINDAMYCIN 150 MG CAP PO SCH ×2 (04:18→12:11)
[2017-07-30 07:46] VITALS: BP 101/63; PULSE 67; RESP 16; TEMP 98; O2SAT 95
[2017-07-30] MEDS: LACTOBACILLUS ACIDOPHILUS TAB PO SCH ×2 (08:10→12:11)
[2017-07-30] MEDS: POTASSIUM CHLORIDE 20 MEQ CONTROLLED RELEASE TAB PO SCH (08:10)
[2017-07-30] MEDS: FUROSEMIDE 40 MG TAB PO SCH (08:10)
[2017-07-30] MEDS: acetaZOLAMIDE SEQUELS 500 MG SUSTAINED RELEASE CAP PO SCH ×2 (08:10→12:11)
[2017-07-30] MEDS: METOCLOPRAMIDE HCL 10 MG TAB PO SCH ×2 (08:11→12:11)
[2017-07-30] MEDS: TOPIRAMATE 25 MG TAB PO SCH (08:11)
[2017-07-30] MEDS: SODIUM CHLORIDE 0.9% FLUSH 10 ML FLUSH IV FLUSH SCH (08:12)
[2017-07-30] MEDS: ONDANSETRON HCL 4 MG/2 ML VIAL IVP PRN (08:22)
[2017-07-30] MEDS ORDERED: COLLAGENASE OINT 30 GM TUBE TOPICAL SCH (09:00)
[2017-07-30] MEDS: SODIUM CHLOR 0.9% 1000 ML INJ 1,000 ML IV SCH (10:19)
--- NOTE | 2017-07-30 12:40 | PD.WCN.NOT ---
Wound Consult Description: Received wound management consult for R back ulcer from Doctor Hernández Communicated with: ALISA Singh and Doctor Hernández for orders Recommendation: 1.Please cleanse wound to R back with normal saline or wound cleanser and pat dry. 2.Apply skin barrier film (skin prep) to periwound and before securing dressing with paper tape 3. Apply Optifoam AG non adhesive dressing and secure with paper tape. 4. Change dressing every 2 days or PRN if saturated or dislodged. 5. Please vocera wound care nurse for wound deterioration. Additional Information: Patient seen on F pod for wound management of R back.Patient is laying in bed upon caption writer's arrival. Patient is complaining of head ache. Pain medication can' t be given at this time. Patient reports wound was a hard lump that burst open a few days ago. Wound culture was obtained on 07/26 and resulted 07/27 with heavy growth of MRSA.Patient was able to turn to L side for wound assessment. Removed dressing in place to reveal open wound to R back. Wound presents with ~10% pink tissue and ~90% white tissue. Wound drainage is scant and sero-sanguinous without odor. Periwound presents with induration and erythema that extends ~ 0.5cm out from wound. Wound measures 0.5cm x 0.5cm x 0.3cm. Cleansed wound with normal saline and patted dry. Applied Optifoam Ag non adhesive dressing over wound bed and secured with paper tape. Skin barrier film (skin prep)was applied to periwound intact skin and to intact skin before securing dressing with paper tape. Leana Ashton [facility] Jul 30, 2017 12:40
--- NOTE | 2017-07-30 13:35 | HHI.PR ---
Subjective Remarks Patient says that headache continues but better than before LP. Denies any chest pain shortness of breath. Denies nausea or vomiting. Objective Vital Signs Date Time Temp Pulse Resp B/P (MAP) Pulse Ox O2 Delivery O2 Flow Rate FiO2 07/30/17 12:53 20 07/30/17 07:46 98.0 67 16 101/63 (76) 95 Manual Cuff/Auscultation 07/30/17 03:35 97.8 66 18 109/53 (71) 94 07/29/17 22:59 18 07/29/17 19:13 98.1 83 18 101/56 (71) 94 07/29/17 15:41 98.1 75 18 98/50 (66) 93 I/O 07/29/17 07/29/17 07/29/17 07/30/17 07/30/17 07/30/17 07:00 15:00 23:00 07:00 15:00 23:00 Intake Total 850 ml Balance 850 ml Intake Oral 850 ml Result Diagram: 07/28/17 1346 07/28/17 1346 Objective Remarks GENERAL: She is sitting up in bed. Appears comfortable. Alert and oriented 3. SKIN: Warm and dry. 1 x 1 cm ulcer over the right back with some surrounding induration. No erythema. No change on exam. HEAD: Normocephalic. EYES: No scleral icterus. No injection or drainage. NECK: Supple, trachea midline. No JVD. CARDIOVASCULAR: Regular rate and rhythm without murmurs, gallops, or rubs. RESPIRATORY: Breath sounds equal bilaterally. No accessory muscle use. GASTROINTESTINAL: Abdomen soft, non-tender, nondistended. MUSCULOSKELETAL: No cyanosis, or edema. BACK: Nontender without obvious deformity. No CVA tenderness. A/P Assessment and Plan // Pseudotumor cerebri Neurology consulted, appreciate recommendations Interventional radiology consulted for LP tomorrow Morphine for pain MRI brain normal = Status post LP 07/29 with improvement. Neurology following. =07/30. Neurosurgery evaluating for INSOLE BEVELER shunt. // Concern for possible seizure Appreciate neurology recommendations EEG pending = Neurology following. Appreciate assistance //Ulcer over right back. = Recently diagnosed and treated for MRSA. Continue clindamycin. Wound care as per wound care nurse. FEN NPO Electrolytes: monitor and replete prn NS at 100 cc/hr Discharge Planning Pending neurosurgery evaluation. likley to get INSOLE BEVELER shunt Alexander Hernández MD Jul 30, 2017 13:35
--- NOTE | 2017-07-30 14:00 | HHI.NSPN ---
(Chandrakant Yeung) History Chief Complaint: Not feeling good. (Chandrakant Yeung) Interval History 07/29: Patient evaluated by Neurosurgery for pseudotumor cerebri. 07/30: The patient is awake and alert laying in bed. She says she is not doing so well due to her head. Her vision is without any change from yesterday. There is an apparent decline in her motor function but it may be related to the patient not fully cooperating with her assessment. The patient was seen in the emergency department on for a wound to the midline lumbar region that was positive for Staphylococcus aureus, methicillin-resistant. (Chandrakant Yeung) Exam Results 07/28/17 07/28/17 07/29/17 07/29/17 07/30/17 07/30/17 06:00 18:00 06:00 18:00 06:00 18:00 Intake Total 850 ml Output Total 500 ml Balance -500 ml 850 ml Intake Oral 850 ml Output Urine Total 500 ml # Voids 1 Vital Signs Date Time Temp Pulse Resp B/P (MAP) Pulse Ox O2 Delivery O2 Flow Rate FiO2 07/30/17 12:53 20 07/30/17 07:46 98.0 67 16 101/63 (76) 95 Manual Cuff/Auscultation 07/30/17 03:35 97.8 66 18 109/53 (71) 94 07/29/17 22:59 18 07/29/17 19:13 98.1 83 18 101/56 (71) 94 07/29/17 15:41 98.1 75 18 98/50 (66) 93 07/29/17 11:43 112/71 (85) Automatic Cuff 07/29/17 11:43 07/29/17 11:33 98.2 64 18 95/49 (64) 97 07/29/17 08:05 97.8 61 18 107/54 (71) 96 07/29/17 04:19 97.8 59 18 103/53 (70) 98 07/28/17 19:24 98.0 67 18 103/61 (75) 97 07/28/17 15:22 98.2 62 18 117/62 (80) 97 07/28/17 11:51 98.3 51 18 121/59 (79) 98 07/28/17 07:56 98.2 52 18 107/55 (72) 96 07/28/17 05:33 56 18 100/57 (71) 96 07/27/17 19:39 Room Air 07/27/17 19:03 98.3 72 18 152/78 (102) 99 (Chandrakant Yeung) Physical Examination GENERAL: Patient is awake & alert laying in bed. Her affect is essentially normal & she readily interacts. She is not in any apparent distress. SKIN: There is a dry & intact dressing to a midline lumbar region wound 0.5 cm x 0.5 cm that that has mild erythema surrounding it, there is creamy yellow slough inside the wound, and there is serous drainage on the dressing. There is an intact dressing to the LP site. HEENT: Normocephalic, atraumatic. PERRLA 2 mm brisk, EOMI, decreased vision to all quadrants bilaterally. MMM & pink, tongue midline to protrusion. MUSCULOSKELETAL: HOUSE spontaneously & purposefully. Extremities NTTP. Thoracolumbar spine NTTP. Intact dressing to midline lumbar region wound. Intact dressing to LP site. NEUROLOGICAL: AAOx3. Speech clear & appropriate. Follows commands w/o difficulty. Decreased vision to all quadrants bilaterally, o/w CN II through XII grossly intact. Sensation is intact to light touch to all extremities. Motor strength to the upper extremities is 5/5, except right deltoid is 4+/5. Motor strength to the lower extremities is: Left: Iliopsoas 4 to 4+/5, quadriceps 2/5, hamstring 4/5, tibialis anterior 4 /5, gastrocnemius 4+/5 & extensor hallucis longus 4+/5. Right: Iliopsoas 4 to 4+/5, quadriceps 2/5, hamstring 3+/5, tibialis anterior 4/5, gastrocnemius 4+/5 & extensor hallucis longus 4/5. This practitioner is doubtful of the patient fully participating in her evaluation which may account for some of her weakness. Previously when seen by this practitioner her motor strength has been 5/5 to all extremities. (Chandrakant Yeung) Lab, Micro, Other Results Recent Impressions Lumbar Puncture Fluoroscopy 07/29/17 0000 Signed Impressions: Service Date/Time: Saturday, July 29, 2017 11:26 - CONCLUSION: Uncomplicated fluoroscopically guided lumbar puncture with pressures as above. Peter Barcenas MD Head CT 07/27/171931 Signed Impressions: Service Date/Time: Thursday, July 27, 2017 20:45 - CONCLUSION: Normal examination. Sawyer Avila MD Chest X-Ray 07/27/171931 Signed Impressions: Service Date/Time: Thursday, July 27, 2017 19:38 - CONCLUSION: No acute disease. Sawyer Avila MD Laboratory Tests Test 07/27/17 19:54 07/27/17 20:40 07/28/17 13:46 White Blood Count 9.9 TH/MM3 7.4 TH/MM3 Red Blood Count 4.27 MIL/MM3 4.00 MIL/MM3 Hemoglobin 11.8 GM/DL 11.1 GM/DL Hematocrit 35.4 % 33.3 % Mean Corpuscular Volume 83.1 FL 83.2 FL Mean Corpuscular Hemoglobin 27.7 PG 27.7 PG Mean Corpuscular Hemoglobin Concent 33.3 % 33.3 % Red Cell Distribution Width 13.9 % 13.6 % Platelet Count 331 TH/MM3 294 TH/MM3 Mean Platelet Volume 7.6 FL 7.8 FL Neutrophils (%) (Auto) 50.7 % 47.4 % Lymphocytes (%) (Auto) 38.8 % 42.3 % Monocytes (%) (Auto) 7.0 % 7.0 % Eosinophils (%) (Auto) 2.9 % 2.9 % Basophils (%) (Auto) 0.6 % 0.4 % Neutrophils # (Auto) 5.0 TH/MM3 3.5 TH/MM3 Lymphocytes # (Auto) 3.8 TH/MM3 3.1 TH/MM3 Monocytes # (Auto) 0.7 TH/MM3 0.5 TH/MM3 Eosinophils # (Auto) 0.3 TH/MM3 0.2 TH/MM3 Basophils # (Auto) 0.1 TH/MM3 0.0 TH/MM3 CBC Comment DIFF FINAL DIFF FINAL Differential Comment Prothrombin Time 9.8 SEC Prothromb Time International Ratio 1.0 RATIO Activated Partial Thromboplast Time 26.1 SEC Blood Urea Nitrogen 10 MG/DL 9 MG/DL Creatinine 0.67 MG/DL 0.53 MG/DL Random Glucose 87 MG/DL 90 MG/DL Total Protein 7.4 GM/DL Albumin 3.3 GM/DL Calcium Level 8.8 MG/DL 8.8 MG/DL Magnesium Level 2.0 MG/DL Alkaline Phosphatase 73 U/L Aspartate Amino Transf (AST/SGOT) 21 U/L Alanine Aminotransferase (ALT/SGPT) 33 U/L Total Bilirubin 0.2 MG/DL Sodium Level 141 MEQ/L 140 MEQ/L Potassium Level 3.5 MEQ/L 3.8 MEQ/L Chloride Level 105 MEQ/L 106 MEQ/L Carbon Dioxide Level 29.4 MEQ/L 26.6 MEQ/L Anion Gap 7 MEQ/L 7 MEQ/L Estimat Glomerular Filtration Rate 102 ML/MIN 134 ML/MIN Lipase 84 U/L Ethyl Alcohol Level LESS THAN 3 MG/DL Urine Color YELLOW Urine Turbidity HAZY Urine pH 7.5 Urine Specific [place] 1.020 Urine Protein TRACE mg/dL Urine Glucose (UA) NEG mg/dL Urine Ketones NEG mg/dL Urine Occult Blood NEG Urine Nitrite NEG Urine Bilirubin NEG Urine Urobilinogen 2.0 MG/DL Urine Leukocyte Esterase NEG Urine RBC 1 /hpf Urine WBC 1 /hpf Urine Squamous Epithelial Cells 18 /hpf Urine Amorphous Sediment RARE Urine Bacteria RARE /hpf Urine Mucus FEW /lpf Microscopic Urinalysis Comment CULT NOT INDICATED Urine Opiates Screen NEG Urine Barbiturates Screen NEG Urine Amphetamines Screen NEG Urine Benzodiazepines Screen POS Urine Cocaine Screen NEG Urine Cannabinoids Screen POS (Chandrakant Yeung) Medical Decision Making Impression and Plan Impression: History of Pseudotumor Patient advised by Dr Cerrato that HAs are unlikely to resolve with shunt and would not be a primary indication for procedure. The patient says she is not doing well do to her head. Her motor exam is decreased to the lower extremities but the patient may not have actively participated in her evaluation. Decreased vision to all quadrants bilaterally. Headache. Midline lumbar region wound, wound culture of positive for Staphylococcus aureus, methicillin-resistant. Plan: Review Ophthalmology notes when available. Possible shunt placement but at this time doubtful due to recent MRSA infection. If going to surgery then will need CBC, CMP, INR & aPTT in AM. If going to surgery will make NPO after MN except for meds. (Chandrakant Yeung) Attending Statement The exam, history, and the medical decision-making described in the above note were completed with the assistance of the mid-level provider. I reviewed and agree with the findings presented. I attest that I had a [id number] encounter with the patient on the same day, and personally performed and documented my assessment and findings in the medical record. Review of patient's recent medical records indicate that she was in the emergency room last week with a draining lumbar wound, positive MRSA. On examination today, still has serous drainage from the wound site, not well healed. Will not reveal to proceed with shunt surgery in the face of active MRSA infection. Continue antibiotics Anticipated shunt placement when infection cleared. Still have not been able to review any records from ophthalmology to verify her visual hyatt or papilledema. (Mamadou Cerrato MD) Chandrakant Yeung Jul 30, 2017 14:00 Mamadou Cerrato MD Jul 30, 2017 22:11
[2017-07-30 16:04] VITALS: BP 104/56; PULSE 73; RESP 20; TEMP 97.2; O2SAT 99
[2017-07-30] MEDS ORDERED: CLIN150C14 PO (16:19)
[2017-07-30] MEDS ORDERED: FLOR250C PO (16:23)
--- NOTE | 2017-07-30 16:24 | HHI.DS ---
Discharge Summary Admission Date Jul 27, 2017 at 21:31 Discharge Date: Jul 30, 2017 Admitting Diagnosis Seizure, Intractable headache with vision change, h/o IIH (1) Infection of wound due to methicillin resistant Staphylococcus aureus (MRSA) ICD Code: A49.02 - Methicillin resistant Staphylococcus aureus infection, unspecified site (2) Pseudotumor cerebri ICD Code: G93.2 - Benign intracranial hypertension Status: Chronic Procedures lumBar puncture. Please see report. Brief History - From Admission 32-year-old female with past medical history significant for pseudotumor cerebri , neurologist is Dr. Haddad, presents to the emergency department for evaluation of severe migraine headache and concern for possible seizure. The patient reports that her noticed that she had a blank stare for approximately 5 minutes during which time she was nonresponsive. The patient states that this has happened in the past and usually precedes her severe headaches. She has never been on antiseizure medication with the exception of Topamax for migraine prophylaxis. The patient reports her headache is severe and she is having significant ocular pain/pressure. The symptoms started today. Patient denies any nausea/vomiting. No abdominal pain or diarrhea. No chest pain/shortness of breath. CBC/BMP: 07/28/17 1346 07/28/17 1346 Significant Findings Laboratory Tests Test 07/27/17 19:54 07/27/17 20:40 07/28/17 13:46 Albumin 3.3 GM/DL (3.4-5.0) Urine Turbidity HAZY (CLEAR) Urine Bacteria RARE /hpf (NONE) Urine Mucus FEW /lpf (OCC) Urine Benzodiazepines Screen POS (NEG) Urine Cannabinoids Screen POS (NEG) Hemoglobin 11.1 GM/DL (11.6-15.3) Hematocrit 33.3 % (35.0-46.0) Imaging Last Impressions Lumbar Puncture Fluoroscopy 07/29/17 0000 Signed Impressions: Service Date/Time: Saturday, July 29, 2017 11:26 - CONCLUSION: Uncomplicated fluoroscopically guided lumbar puncture with pressures as above. Peter Barcenas MD Head CT 07/27/17 1932 Signed Impressions: Service Date/Time: Thursday, July 27, 2017 20:45 - CONCLUSION: Normal examination. Sawyer Avila MD Chest X-Ray 07/27/17 1932 Signed Impressions: Service Date/Time: Thursday, July 27, 2017 19:38 - CONCLUSION: No acute disease. Sawyer Avila MD Brain MRI 07/27/17 0000 Signed Impressions: Service Date/Time: Thursday, July 27, 2017 22:26 - CONCLUSION: Normal examination. Wallace Parker MD Hospital Course MRI brain performed as above. Patient underwent lumbar puncture with improvement in headache. Patient was also found to have ulcer over her right back which was recently treated for MRSA. She was continued on clindamycin to complete treatment course for this. Patient was evaluated by neurosurgery for possible FINANCIAL SERVICES OFFICER shunt, however we will delay surgery at this time due to ongoing treatment for MRSA wound to back. For problem-based summary from most recent progress note, please see below. // Pseudotumor cerebri Neurology consulted, appreciate recommendations Interventional radiology consulted for LP tomorrow Morphine for pain MRI brain normal = Status post LP 07/29 with improvement. Neurology following. =07/30. Neurosurgery evaluating for FINANCIAL SERVICES OFFICER shunt. // Concern for possible seizure Appreciate neurology recommendations EEG pending = Neurology following. Appreciate assistance //Ulcer over right back. = Recently diagnosed and treated for MRSA. Continue clindamycin. Wound care as per wound care nurse. Pt Condition on Discharge: Good Discharge Disposition: Discharge Home Discharge Time: > 30 minutes Discharge Instructions DIET: Follow Instructions for: Heart Healthy Diet Activities you can perform: Regular-No Restrictions Follow up Referrals: Neurology - 2-3 Days with Antonio Haddad MD PhD Neurosurgery - 1 Week with Mamadou Cerrato MD PCP Follow-up - 1 Week New Medications: Saccharomyces Boulardii (Florastor) 250 Mg Cap 250 MG PO BID for Nutritional Supplement for 28 Days, #56 CAP 0 Refills Continued Medications: Acetazolamide ER 12 HR (Diamox Sequels ER 12 HR) 500 Mg Cap 500 MG PO TID for Glaucoma for 30 Days, #60 CAP 0 Refills Clindamycin (Clindamycin) 150 Mg Cap 300 MG PO QID for Infection for 10 Days, #80 CAP 0 Refills (This prescription has been renewed) Diazepam (Valium) 5 Mg Tab 5 MG PO BID PRN for ANXIETY for 30 Days, #60 TAB 0 Refills Furosemide (Lasix) 40 Mg Tab 40 MG PO BID for Headaches for 30 Days, #60 TAB 0 Refills Meclizine (Meclizine) 25 Mg Tab 25 MG PO TID PRN for VERTIGO for 30 Days, #30 TAB 0 Refills Metoclopramide (Reglan) 10 Mg Tab 10 MG PO QID, #120 TAB 0 Refills Oxycodone HCl/Acetaminophen (Oxycodone-Acetaminophen 10-325) 10 Mg-325 Mg Tablet 1 TAB PO Q6H PRN for PAIN SCALE 6 TO 10 for 30 Days, #120 TAB 0 Refills Potassium Chloride ER (Potassium Chloride ER) 20 Meq Tab 20 MEQ PO DAILY for Electrolyte Replacement for 30 Days, #30 TAB 0 Refills Topiramate (Topamax) 50 Mg Tab 100 MG PO BID for Control Seizures for 30 Days, #120 TAB 0 Refills Discontinued Medications: Doxycycline Hyclate (Doxycycline Hyclate) 100 Mg Cap 100 MG PO BID for Infection, #20 CAP 0 Refills Alexander Hernández MD Jul 30, 2017 16:24
[2017-07-30] MEDS ORDERED: BACTOIN EACH NARE (16:25)
[2017-07-30 16:50] VITALS: RESP 18
== END 2017-07-30 18:48 | disposition home or self-care (01) ==
LOC: NEPE 18:52 → NEDA 21:31 → NEPFCDU 22:56
PROVIDERS: ADMIT Internal Medicine; ATTEND Internal Medicine
DX: G93.2 Benign intracranial hypertension (principal); I10 Essential (primary) hypertension; J45.909 Unspecified asthma, uncomplicated; G43.909 Migraine, unspecified, not intractable, without status migrainosus; F17.210 Nicotine dependence, cigarettes, uncomplicated
CPT/HCPCS: 62270; 70450; 70553; 71045; 77003; 80048; 80053; 80307; 81001; 83690; 83735; 84703; 85025; 85610; 85730; 93005; 95819; 96374; 96375; 96376; 99285; A9579; G0378; J1170; J2060; J2270; J2405; J7040

== ENCOUNTER 2017-08-05 17:17 | Inpatient (IN) | payer SELFPAY ==
[~2017-08-05] VITALS: Ht 154.9 cm; Wt 113.0 kg
[~2017-08-05 17:17] MED LIST changes: +BACTOIN EACH NARE; -DOXY100C PO; +FLOR250C PO
[2017-08-05 17:44] VITALS: BP 133/61; PULSE 73; RESP 18; TEMP 98.6; O2SAT 100
--- NOTE | 2017-08-05 19:25 | PD ---
HPI Chief Complaint: Eye Problems/Injury Time Seen by Provider: 19:10 Travel History International Travel<30 days: No Contact w/Intl Traveler<30days: No History of Present Illness HPI The patient is a 32 year old female who presents to the [facility] emergency department with a history of idiopathic intracranial hypertension with a history of recurring headaches related to this and an underlying chronic headache disorder. Unfortunately, the patient reports having difficulty with maintaining her insurance and has been seen by multiple neurosurgeons, most recently Dr. Cerrato in the hospital during an admission from July 27 - July 30. Her neurologist is Dr. Haddad. The patient reports that she is also followed by a local wall mirror department supervisor and website programmer, Dr. Randolph, and Dr. Arndt, respectively. The patient underwent an LP on July 29 during her hospital admission for worsening headache and worsening vision changes. The patient reports that the vision changes improved as well as the headache. She reports that she was left with a dull headache which is like her usual baseline headache disorder usually occurs 2 times per week. Then, yesterday she began to have sharp pain behind both eyes similar to when she has a recurrence of the pressure from the IIH. She was not able to get into her website programmer, therefore she went to her local wall mirror department supervisor, Dr. Randolph. 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 She reports that during her hospitalization, Dr. Cerrato had planned to do a ICT TRAINER shunt, however the patient was then diagnosed with an MRSA skin infection on the right side of her back and the surgery was postponed. She is currently on a 10 day course of clindamycin. She reports that the wound has healed and is no longer painful. The patient reports that since yesterday her vision has been blurry with what appears like a shadow over her eyes and a narrowing field of vision. She reports that she has had long-standing problems with her vision in the right eye, however now it is worsening also in the left. She is taking Topamax and Diamox as prescribed. She denies taking any pain medication for her headache. On review of systems , the patient denies having any known recent fevers, cough or congestion, neck pain, chest pain, shortness of breath, abdominal pain, vomiting, diarrhea, urinary symptoms, or other neurologic symptoms. [facility] Past Medical History Narrative Medical The patient's past medical history is significant for having a chronic headache disorder, history of idiopathic intracranial hypertension, history of seizures, MRSA skin infection, history of asthma, history of kidney stones. Hx Anticoagulant Therapy: No Arthritis: No Asthma: Yes Autoimmune Disease: No Blood Disorders: No Anxiety: No Depression: No Heart Rhythm Problems: No Cancer: No Cardiovascular Problems: No High Cholesterol: No Chemotherapy: No Chest Pain: No Congestive Heart Failure: No COPD: No Cerebrovascular Accident: No Diabetes: No Diminished Hearing: No Endocrine: No Gastrointestinal Disorders: No GERD: No Genitourinary: Yes (KIDNEY STONES) Headaches: Yes Hiatal Hernia: No Heparin Induced Thrombocytopen: No Hypertension: Yes (Idiopathic intracranial hypertension) Immune Disorder: No Implanted Vascular Access Dvce: No Kidney Stones: Yes Musculoskeletal: No Neurologic: Yes Psychiatric: No Reproductive: Yes (7 MISCARRIAGES) Respiratory: Yes (asthma) Immunizations Current: Yes Migraines: Yes Radiation Therapy: No Renal Failure: No Seizures: No Sickle Cell Disease: No Sleep Apnea: No Thyroid Disease: No Ulcer: No ?: Not LMP: LMP current : 8 Para: 1 Miscarriage: 7 Dilation and Curettage (D&C): Yes (x3 ) Past Surgical History Narrative Surgical The patient's past surgical history is significant for lithotripsy, kidney stent , , hysterectomy, numerous lumbar punctures, and a cholecystectomy. Abdominal Surgery: No AICD: No Arteriovenous Shunt: No Cardiac Surgery: No Section: Yes Cholecystectomy: Yes Ear Surgery: No Endocrine Surgery: No Eye Surgery: No Genitourinary Surgery: Yes (STENTS KIDNEYS, LITHOTRIPSIES) Gynecologic Surgery: No Hysterectomy: Yes Insulin Pump: No Joint Replacement: No Neurologic Surgery: Yes (lumbar punctures, 40x) Oral Surgery: No Pacemaker: No Thoracic Surgery: No Other Surgery: Yes (L KIDNEY (STENTS x 6) Social History Alcohol Use: No Tobacco Use: Yes (1 cigarette ) Substance Use: Yes (marijaunia) Allergies-Medications (Allergen,Severity, Reaction): Coded Allergies: Sulfa (Sulfonamide Antibiotics) (Verified Allergy, Severe, RASH, 07/27/17) amoxicillin (Verified Allergy, Severe, Anaphylaxis, 07/27/17) ketorolac (Verified Allergy, Severe, Anaphylaxis, 07/27/17) anaphylaxis per patient ibuprofen (Verified Allergy, Intermediate, HIVES, FACIAL SWELLING., 07/27/17 ) tramadol (Verified Allergy, Intermediate, HIVES, 07/27/17) hives, sewll up latex (Verified Allergy, Unknown, 07/27/17) penicillin G (Verified Allergy, Unknown, HIVES, 07/27/17) prochlorperazine (Verified Allergy, Unknown, HIVES, 07/27/17) sumatriptan (Verified Adverse Reaction, Severe, VOMITING PASSED OUT, ) Reported Meds & Prescriptions Reported Meds & Active Scripts Active Florastor (Saccharomyces Boulardii) 250 Mg Cap 250 Mg PO BID 28 Days Valium (Diazepam) 5 Mg Tab 5 Mg PO BID PRN 30 Days Oxycodone-Acetaminophen 10-325 (Oxycodone HCl/Acetaminophen) 10 Mg-325 Mg Tablet 1 Tab PO Q6H PRN 30 Days Meclizine (Meclizine HCl) 25 Mg Tab 25 Mg PO TID PRN 30 Days Lasix (Furosemide) 40 Mg Tab 40 Mg PO BID 30 Days Diamox Sequels ER 12 HR (Acetazolamide) 500 Mg Cap 500 Mg PO TID 30 Days Potassium Chloride ER (Potassium Chloride) 20 Meq Tab 20 Meq PO DAILY 30 Days Topamax (Topiramate) 50 Mg Tab 100 Mg PO BID 30 Days Reported Reglan (Metoclopramide HCl) 10 Mg Tab 10 Mg PO QID Review of Systems Except as stated in HPI: all other systems reviewed are Neg General / Constitutional: No: Fever Eyes: Positive: Blurred Vision, Visual changes HENT: Positive: Headaches, No: Sore Throat, Rhinorrhea, Congestion, Neck Stiffness, Neck Pain Cardiovascular: No: Chest Pain or Discomfort Respiratory: No: Shortness of Breath Gastrointestinal: No: Nausea, Vomiting, Diarrhea, Abdominal Pain Genitourinary: No: Dysuria Musculoskeletal: No: Pain Skin: No Rash Neurologic: Positive: Headache, No: Weakness, Focal Abnormalities, Change in Mentation, Slurred Speech, Sensory Disturbance Psychiatric: No: Depression Endocrine: No: Polydipsia Hematologic/Lymphatic: No: Easy Bruising Physical Exam Narrative General: The patient is a well-developed well-nourished female in no acute distress. Head and Neck exam: Head is normocephalic atraumatic. Eyes: EOMI, pupils are equal round and reactive to light. Nose: Midline septum with pink mucous membranes Mouth: Dentition unremarkable. Moist mucus membranes. Posterior oropharynx is not erythematous. No tonsillar hypertrophy. Uvula midline. Airway patent. Neck: No palpable lymphadenopathy. No nuchal rigidity. No thyromegaly. Negative Brudzinski, negative Kernig sign. Cardiovascular: Regular rate and rhythm without murmurs, gallops, or rubs Lungs: Clear to auscultation bilaterally. No wheezes, rhonchi, or rales. Abdomen: Soft, without tenderness to palpation in all 4 quadrants of the abdomen. No guarding, rebound, or rigidity. Normal bowel sounds are audible. No tenderness on palpation of McBurney's point. Extremities: No clubbing, cyanosis, or edema. 2+ pulses in all 4 extremities. Back: No spinous process tenderness to palpation. No costovertebral angle tenderness to palpation. Neurologic Exam: Cranial nerves 2-12 were intact on exam. Strength is 5/5 in all 4 extremities. No sensory deficits noted. Skin Exam: No rash noted. Intact skin that is warm and dry. Data Data Last Documented VS Vital Signs Date Time Temp Pulse Resp B/P (MAP) Pulse Ox O2 Delivery O2 Flow Rate FiO2 08/05/17 17:44 98.6 73 18 133/61 (85) 100 Orders Orders Electrocardiogram (08/05/17 19:40) Complete Blood Count With Diff (08/05/17 19:40) Comprehensive Metabolic Panel (08/05/17 19:40) Prothrombin Time / Inr (Pt) (08/05/17 19:40) Act Partial Throm Time (Ptt) (08/05/17 19:40) C-Reactive Protein (Crp) (08/05/17 19:40) Westergren Sedimentation Rate (08/05/17 19:40) Iv Access Insert/Monitor (08/05/17 19:40) Ecg Monitoring (08/05/17 19:40) Oximetry (08/05/17 19:40) Consult Neurosurgery (08/05/17 ) Case Management Consult (08/05/17 ) (Hub Use Only)Inp Phy Cons/Ref (08/05/17 ) Metoclopramide Inj (Reglan Inj) (08/05/17 21:00) Hydromorphone Pf Inj (Dilaudid Pf Inj) (08/05/17 21:00) Admit Order (Ed Use Only) (08/05/17 21:17) Labs Laboratory Tests Test 08/05/17 19:54 White Blood Count 13.3 TH/MM3 Red Blood Count 4.24 MIL/MM3 Hemoglobin 11.8 GM/DL Hematocrit 35.3 % Mean Corpuscular Volume 83.3 FL Mean Corpuscular Hemoglobin 27.7 PG Mean Corpuscular Hemoglobin Concent 33.3 % Red Cell Distribution Width 13.8 % Platelet Count 293 TH/MM3 Mean Platelet Volume 8.6 FL Neutrophils (%) (Auto) 60.2 % Lymphocytes (%) (Auto) 32.1 % Monocytes (%) (Auto) 6.3 % Eosinophils (%) (Auto) 0.9 % Basophils (%) (Auto) 0.5 % Neutrophils # (Auto) 8.0 TH/MM3 Lymphocytes # (Auto) 4.3 TH/MM3 Monocytes # (Auto) 0.8 TH/MM3 Eosinophils # (Auto) 0.1 TH/MM3 Basophils # (Auto) 0.1 TH/MM3 CBC Comment DIFF FINAL Differential Comment Erythrocyte Sedimentation Rate 44 mm/hr Prothrombin Time 10.2 SEC Prothromb Time International Ratio 1.0 RATIO Activated Partial Thromboplast Time 25.4 SEC Blood Urea Nitrogen 7 MG/DL Creatinine 0.58 MG/DL Random Glucose 93 MG/DL Total Protein 7.2 GM/DL Albumin 3.4 GM/DL Calcium Level 8.7 MG/DL Alkaline Phosphatase 73 U/L Aspartate Amino Transf (AST/SGOT) 11 U/L Alanine Aminotransferase (ALT/SGPT) 23 U/L Total Bilirubin 0.2 MG/DL Sodium Level 145 MEQ/L Potassium Level 3.2 MEQ/L Chloride Level 110 MEQ/L Carbon Dioxide Level 26.2 MEQ/L Anion Gap 9 MEQ/L Estimat Glomerular Filtration Rate 120 ML/MIN C-Reactive Protein 0.30 MG/DL MDM Medical Decision Making Medical Screen Exam Complete: Yes Emergency Medical Condition: Yes Medical Record Reviewed: Yes Differential Diagnosis Idiopathic intracranial hypertension causing headache related to increased pressure, versus tension headache, versus migraine headache, versus drug-seeking Narrative Course During the course of the patient's emergency department visit, the patient's history, examination, and differential diagnosis were reviewed with the patient. The patient was placed on a teletypesetter monitor with oximetry and frequent blood pressure monitoring. The patient had IV access obtained and blood work sent for analysis. A call was placed out to the neurosurgeon but most recently saw the patient, that according to the electronic medical record was said to see the patient in follow-up in the next week after her recent hospitalization. I had a lengthy discussion with him. He is not currently groundwater consultant today and is going out of town in the morning. He reports that he has not received any of the documentation from the eye doctors that have recently evaluated the patient as an outpatient. We will attempt to obtain these records. He recommends that the patient be admitted to the hospitalist service for pain control and consideration of interventional radiology doing a lumbar puncture in the morning. He recommends neurosurgical consultation with 1 of his colleagues who is covering for the morning. At this time, he does not recommend any urgent surgical interventions until further documentation is obtained from the patient's eye doctors. From reviewing the record, the patient underwent a fluoroscopically guided lumbar puncture on July [address] Barcenas. The patient's opening pressure was elevated at that time to 31 cm of water. He did remove 25 cc of fluid to lower the pressure at that time. The patient was initially provided Reglan 5 mg IV for nausea, hydromorphone 0.5 mg IV for pain. The patient's laboratory studies were reviewed and remarkable for: 08/05/17 19:54 Total Protein 7.2, Albumin 3.4, Calcium Level 8.7, Alkaline Phosphatase 73, Aspartate Amino Transf (AST/SGOT) 11 L, Alanine Aminotransferase (ALT/SGPT) 23, Total Bilirubin 0.2, sedimentation rate is elevated at 44. The patient had a potassium supplemented orally. He was able to speak to Dr. Arndt, the patient's website programmer regarding this patient at 8:41 PM. He reports that he is currently at home and has no access to his records. He was unfamiliar with the patient by name, however he reports that he does have several young women patients that have idiopathic intracranial hypertension. He reports that he would be happy to provide the records. He was given the fax number for the echo pod. He reports that the earliest that he would be able to obtain the records on this patient would be in the morning. He reports that he will fax these to the hospital in the morning. The patient's results were discussed with the patient, including the plan of care. I explained that further testing and/ or monitoring is indicated based on the patient's history, examination, and/ or laboratory findings. Therefore, I recommended admission for additional evaluation. The patient expressed understanding and was agreeable with this plan. The patient was admitted to the hospital in stable condition and [facility] Physician Communication Physician Communication The patient's case including history, pertinent physical examination findings, and laboratory studies were discussed with Dr. Cerrato, at approximately 7:40 PM. He reports that he has not been able to contact the patient's wall mirror department supervisor or website programmer to confirm the patient's papilledema. He reports that his office has contacted both Dr. Arndt, and Dr. Randolph and is yet to receive any phone call back. He explained that he would like to obtain these records prior to placing the shunt. He reports that he is not on-call this evening, however as the patient was recently seen by him he graciously called back to discuss the patient with me. He reports that the only option for this patient would be admission to medicine service and interventional radiology guided LP for drainage again while these records are being obtained. A call has been placed out to both eye doctors at this time to attempt to get these records. I spoke to Dr. Arndt, the patient's website programmer as dictated in the ED course above. I then spoke to Dr. Castellanos the hospitalist on-call who did agree to admit the patient. It was agreed that the patient would be admitted to the [facility] service. Diagnosis Primary Impression: Intractable headache Qualified Codes: R51 - Headache Additional Impressions: Vision loss History of idiopathic intracranial hypertension Admitting Information Admitting Physician Requests: Trish Huizar MD Aug 05, 2017 19:25
[2017-08-05 20:38] LABS: BASOPHIL # 0.1 TH/MM3 (0-0.2); BASOPHIL % 0.5 % (0.0-2.0); EOSINOPHIL # 0.1 TH/MM3 (0-0.4); EOSINOPHIL % 0.9 % (0.0-4.0); HEMATOCRIT 35.3 % (35.0-46.0); HEMOGLOBIN 11.8 GM/DL (11.6-15.3); LYMPH % 32.1 % (9.0-44.0); LYMPHOCYTE # 4.3 TH/MM3 (1.0-4.8); MEAN CELL VOLUME 83.3 FL (80.0-100.0); MEAN CORPUSCULAR HEMOGLOBIN 27.7 PG (27.0-34.0); MEAN CORPUSCULAR HGB CONC 33.3 % (32.0-36.0); MEAN PLATELET VOLUME 8.6 FL (7.0-11.0); MONO % 6.3 % (0.0-8.0); MONOCYTE # 0.8 TH/MM3 (0-0.9); NEUT % 60.2 % (16.0-70.0); PLATELET COUNT 293 TH/MM3 (150-450); RED BLOOD COUNT 4.24 MIL/MM3 (4.00-5.30); RED CELL DISTRIBUTION WIDTH 13.8 % (11.6-17.2); WHITE BLOOD COUNT 13.3 TH/MM3 (4.0-11.0)
[2017-08-05 20:55] LABS: PROTHROMBIN TIME - PATIENT 10.2 SEC (9.8-11.6)
[2017-08-05] MEDS ORDERED: HYDROmorphone HCL PF 2 MG/ML VIAL IV PUSH ONE (21:00)
[2017-08-05 21:06] LABS: ALBUMIN 3.4 GM/DL (3.4-5.0); AST (GOT) 11 U/L (15-37); BICARBONATE 26.2 MEQ/L (21.0-32.0); BLOOD UREA NITROGEN 7 MG/DL (7-18); CALCIUM 8.7 MG/DL (8.5-10.1); CHLORIDE 110 MEQ/L (98-107); CREATININE 0.58 MG/DL (0.50-1.00); GLOMERULAR FILTRATION RATE 120 ML/MIN (>89); GLUCOSE,RANDOM 93 MG/DL (74-106); SODIUM (NA) 145 MEQ/L (136-145)
[2017-08-05 21:15] LABS: ALKALINE PHOSPHATASE 73 U/L (45-117); ALT (GPT) 23 U/L (10-53); TOTAL BILIRUBIN ADULT 0.2 MG/DL (0.2-1.0); TOTAL PROTEIN 7.2 GM/DL (6.4-8.2)
[2017-08-05] MEDS: METOCLOPRAMIDE HCL 10 MG/2 ML VIAL IV PUSH ONE ×2 (21:20→22:09)
[2017-08-05] MEDS ORDERED: POTASSIUM CHLORIDE 20 MEQ CONTROLLED RELEASE TAB PO ONE (21:30)
[2017-08-05] MEDS ORDERED: ACETAMINOPHEN 325 MG TAB PO PRN (22:45)
[2017-08-05] MEDS ORDERED: NALOXONE HCL 0.4 MG/ML AMP IV PUSH PRN (22:45)
--- NOTE | 2017-08-05 23:01 | HHI.HP ---
HPI Service [facility] Primary Care Physician No Primary Care Physician Admission Diagnosis Intractable headache with vision changes, h/o IIH Diagnoses: Travel History International Travel<30 Days: No Contact w/Intl Traveler <30 Da: No History of Present Illness 32-year-old female with a past medical history significant for pseudotumor cerebri, neurologist is Dr. Haddad, neurosurgeon is Dr. Cerrato, presents to the emergency department for evaluation of worsening visual changes and severe headache. The patient reports she has been having visual disturbances for quite some time in the right eye which is now extending to include her left thigh. She reports the vision in her eyes is blurry and she sees everything with a specific shadowing. She states that she has increasing pain and pressure behind both eyes, left greater than right. She also reports her headache is similar to that which she has prior to requiring an LP. The patient was previously scheduled to have a shunt placed however the procedure was put on hold secondary to a cellulitis of her mid back. The patient denies any chest pain or shortness of breath. No abdominal pain. Positive nausea/ vomiting. Review of Systems Except as stated in HPI: all other systems reviewed are Neg Past Family Social History Past Medical History Pseudotumor cerebri History of renal stones Past Surgical History Multiple lumbar punctures Renal stent placement - left Reported Medications Reported Meds & Active Scripts Active Florastor (Saccharomyces Boulardii) 250 Mg Cap 250 Mg PO BID 28 Days Valium (Diazepam) 5 Mg Tab 5 Mg PO BID PRN 30 Days Oxycodone-Acetaminophen 10-325 (Oxycodone HCl/Acetaminophen) 10 Mg-325 Mg Tablet 1 Tab PO Q6H PRN 30 Days Meclizine (Meclizine HCl) 25 Mg Tab 25 Mg PO TID PRN 30 Days Lasix (Furosemide) 40 Mg Tab 40 Mg PO BID 30 Days Diamox Sequels ER 12 HR (Acetazolamide) 500 Mg Cap 500 Mg PO TID 30 Days Potassium Chloride ER (Potassium Chloride) 20 Meq Tab 20 Meq PO DAILY 30 Days Topamax (Topiramate) 50 Mg Tab 100 Mg PO BID 30 Days Reported Reglan (Metoclopramide HCl) 10 Mg Tab 10 Mg PO QID Allergies: Coded Allergies: Sulfa (Sulfonamide Antibiotics) (Verified Allergy, Severe, RASH, 07/27/17) amoxicillin (Verified Allergy, Severe, Anaphylaxis, 07/27/17) ketorolac (Verified Allergy, Severe, Anaphylaxis, 07/27/17) anaphylaxis per patient ibuprofen (Verified Allergy, Intermediate, HIVES, FACIAL SWELLING., 07/27/17 ) tramadol (Verified Allergy, Intermediate, HIVES, 07/27/17) hives, sewll up latex (Verified Allergy, Unknown, 07/27/17) penicillin G (Verified Allergy, Unknown, HIVES, 07/27/17) prochlorperazine (Verified Allergy, Unknown, HIVES, 07/27/17) sumatriptan (Verified Adverse Reaction, Severe, VOMITING PASSED OUT, ) Family History Denies family history of CAD/DM Social History Smokes a cigarette approximately every 3 days. Denies alcohol, illicit drugs. Physical Exam Vital Signs Vital Signs Date Time Temp Pulse Resp B/P (MAP) Pulse Ox O2 Delivery O2 Flow Rate FiO2 08/05/17 17:44 98.6 73 18 133/61 (85) 100 Physical Exam GENERAL: Obese, female lying in bed SKIN: No rashes, ecchymoses or lesions. Cool and dry. HEAD: Atraumatic. Normocephalic. No temporal or scalp tenderness. EYES: Pupils equal round and reactive. Extraocular motions intact. No scleral icterus. No injection or drainage. ENT: Nose without bleeding, purulent drainage or septal hematoma. Throat without erythema, tonsillar hypertrophy or exudate. Uvula midline. Airway patent. NECK: Trachea midline. No JVD or lymphadenopathy. Supple, nontender, no meningeal signs. CARDIOVASCULAR: Regular rate and rhythm without murmurs, gallops, or rubs. RESPIRATORY: Clear to auscultation. Breath sounds equal bilaterally. No wheezes , rales, or rhonchi. GASTROINTESTINAL: Abdomen soft, non-tender, nondistended. No hepato-splenomegaly , or palpable masses. No guarding. MUSCULOSKELETAL: Extremities without clubbing, cyanosis, or edema. No joint tenderness, effusion, or edema noted. No calf tenderness. NEUROLOGICAL: Awake and alert. Cranial nerves II through XII intact. Motor and sensory grossly within normal limits. Normal speech. Laboratory Laboratory Tests Test 08/05/17 19:54 White Blood Count 13.3 Red Blood Count 4.24 Hemoglobin 11.8 Hematocrit 35.3 Mean Corpuscular Volume 83.3 Mean Corpuscular Hemoglobin 27.7 Mean Corpuscular Hemoglobin Concent 33.3 Red Cell Distribution Width 13.8 Platelet Count 293 Mean Platelet Volume 8.6 Neutrophils (%) (Auto) 60.2 Lymphocytes (%) (Auto) 32.1 Monocytes (%) (Auto) 6.3 Eosinophils (%) (Auto) 0.9 Basophils (%) (Auto) 0.5 Neutrophils # (Auto) 8.0 Lymphocytes # (Auto) 4.3 Monocytes # (Auto) 0.8 Eosinophils # (Auto) 0.1 Basophils # (Auto) 0.1 CBC Comment DIFF FINAL Differential Comment Erythrocyte Sedimentation Rate 44 Prothrombin Time 10.2 Prothromb Time International Ratio 1.0 Activated Partial Thromboplast Time 25.4 Blood Urea Nitrogen 7 Creatinine 0.58 Random Glucose 93 Total Protein 7.2 Albumin 3.4 Calcium Level 8.7 Alkaline Phosphatase 73 Aspartate Amino Transf (AST/SGOT) 11 Alanine Aminotransferase (ALT/SGPT) 23 Total Bilirubin 0.2 Sodium Level 145 Potassium Level 3.2 Chloride Level 110 Carbon Dioxide Level 26.2 Anion Gap 9 Estimat Glomerular Filtration Rate 120 C-Reactive Protein 0.30 Result Diagram: 08/05/17195308/05/171953 Caprini VTE Risk Assessment Caprini VTE Risk Assessment: No/Low Risk (score <= 1) Caprini Risk Assessment Model Point Value = 1 Point Value = 2 Point Value = 3 Point Value = 5 Age 41-60 Minor surgery BMI > 25 kg/m2 Swollen legs Varicose veins or History of unexplained or recurrent spontaneous Oral contraceptives or hormone replacement Sepsis (< 1 month) Serious lung disease, including pneumonia (< 1 month) Abnormal pulmonary function Acute myocardial infarction Congestive heart failure (< 1 month) History of inflammatory bowel disease Medical patient at bed rest Age 61-74 Arthroscopic surgery Major open surgery (> 45 min) Laparoscopic surgery (> 45 min) Malignancy Confined to bed (> 72 hours) Immobilizing plaster cast Central venous access Age >= 75 History of VTE Family history of VTE Factor V Leiden Prothrombin [id number] Lupus anticoagulant Anticardiolipin antibodies Elevated serum homocysteine Heparin-induced thrombocytopenia Other congenital or acquired thrombophilia Stroke (< 1 month) Elective arthroplasty Hip, pelvis, or leg fracture Acute spinal cord injury (< 1 month) Prophylaxis Regimen Total Risk Factor Score Risk Level Prophylaxis Regimen 0-1 Low Early ambulation 2 Moderate Order ONE of the following: *Sequential Compression Device (SCD) *Heparin 5000 units SQ BID 3-4 Higher Order ONE of the following medications: *Heparin 5000 units SQ TID *Enoxaparin/Lovenox 40 mg SQ daily (WT < 150 kg, CrCl > 30 mL/min) *Enoxaparin/Lovenox 30 mg SQ daily (WT < 150 kg, CrCl > 10-29 mL/min) *Enoxaparin/Lovenox 30 mg SQ BID (WT < 150 kg, CrCl > 30 mL/min) AND/OR *Sequential Compression Device (SCD) 5 or more Highest Order ONE of the following medications: *Heparin 5000 units SQ TID (Preferred with Epidurals) *Enoxaparin/Lovenox 40 mg SQ daily (WT < 150 kg, CrCl > 30 mL/min) *Enoxaparin/Lovenox 30 mg SQ daily (WT < 150 kg, CrCl > 10-29 mL/min) *Enoxaparin/Lovenox 30 mg SQ BID (WT < 150 kg, CrCl > 30 mL/min) AND *Sequential Compression Device (SCD) Assessment and Plan Assessment and Plan Assessment/plan: 1. Pseudotumor cerebri with visual changes Neurosurgery consulted, appreciate assistance Given patient's recurrent symptoms, interventional radiology consulted for LP Dilaudid for pain FEN NPO Electrolytes: monitor and replete prn NS at 100 cc/hr Sharyn Castellanos MD Aug 05, 2017 23:01
[2017-08-05] MEDS: ONDANSETRON HCL 4 MG/2 ML VIAL IVP PRN (23:07)
[2017-08-05] MEDS: DIAZEPAM 5 MG TAB PO PRN (23:48)
[2017-08-05] MEDS: SODIUM CHLOR 0.9% 1000 ML INJ 1,000 ML IV SCH (23:48)
[2017-08-06] VITALS (8 sets, daily range): BP systolic 91–130; BP diastolic 54–88; PULSE 51–77; RESP 12–18; TEMP 97.6–99.2; O2SAT 94–98
[2017-08-06] MEDS: HYDROmorphone HCL PF 2 MG/ML VIAL IV PUSH PRN ×3 (02:07→14:57)
[2017-08-06] MEDS: MECLIZINE HCL 25 MG TAB PO PRN (02:13)
[2017-08-06 07:58] LABS: AUTOMATED NEUTROPHIL # 4.5 TH/MM3 (1.8-7.7); BASOPHIL % 0.5 % (0.0-2.0); EOSINOPHIL # 0.2 TH/MM3 (0-0.4); EOSINOPHIL % 1.7 % (0.0-4.0); HEMATOCRIT 32.7 % (35.0-46.0); LYMPH % 39.5 % (9.0-44.0); LYMPHOCYTE # 3.5 TH/MM3 (1.0-4.8); MEAN CELL VOLUME 83.6 FL (80.0-100.0); MEAN CORPUSCULAR HEMOGLOBIN 28.3 PG (27.0-34.0); MEAN CORPUSCULAR HGB CONC 33.8 % (32.0-36.0); MEAN PLATELET VOLUME 8.4 FL (7.0-11.0); MONO % 6.8 % (0.0-8.0); MONOCYTE # 0.6 TH/MM3 (0-0.9); NEUT % 51.5 % (16.0-70.0); PLATELET COUNT 253 TH/MM3 (150-450); RED CELL DISTRIBUTION WIDTH 13.7 % (11.6-17.2); WHITE BLOOD COUNT 8.8 TH/MM3 (4.0-11.0)
[2017-08-06 08:55] LABS: BICARBONATE 27.4 MEQ/L (21.0-32.0); CALCIUM 8.3 MG/DL (8.5-10.1); CREATININE 0.52 MG/DL (0.50-1.00)
[2017-08-06] MEDS: acetaZOLAMIDE SEQUELS 500 MG SUSTAINED RELEASE CAP PO SCH ×3 (09:08→17:48)
[2017-08-06] MEDS: FUROSEMIDE 40 MG TAB PO SCH ×2 (09:09→20:48)
[2017-08-06] MEDS: TOPIRAMATE 100 MG TAB PO SCH ×2 (09:09→20:48)
[2017-08-06] MEDS ORDERED: LORazepam 2 MG/ML VIAL IV PUSH PRN (09:30)
--- NOTE | 2017-08-06 10:08 | HHI.PR ---
Subjective Remarks Follow-up visit pseudotumor cerebri, multiple lumbar punctures, blurry vision. Patient seen and examined today laying in bed. Reports visual changes worsening , blurred vision. States he is following Dr. Haddad in the outpatient. However due to insurance changes has not been seen by Dr. Haddad since April. Also states that Dr. Cerrato is her neurosurgeon but has not seen him in the outpatient setting. Reports photophobia, headaches, continued blurred vision. Denies nausea, vomiting, diarrhea. Objective Vitals Vital Signs Date Time Temp Pulse Resp B/P (MAP) Pulse Ox O2 Delivery O2 Flow Rate FiO2 08/06/17 09:37 98.1 76 16 111/59 (76) 98 08/06/17 07:02 98.0 56 12 91/54 (66) 97 08/06/17 03:33 97.6 53 18 108/57 (74) 98 08/06/17 01:26 97.8 67 18 113/66 (82) 96 08/05/17 17:44 98.6 73 18 133/61 (85) 100 I/O 08/05/17 08/05/17 08/05/17 08/06/17 08/06/17 08/06/17 07:00 15:00 23:00 07:00 15:00 23:00 Intake Total 0 ml Balance 0 ml Intake Oral 0 ml Result Diagram: 08/06/1727 08/06/17726 Objective Remarks GENERAL: This is an obese, well-developed patient, in no apparent distress. SKIN: Warm and dry. HEENT: Normocephalic. Pupils equal round and reactive. Peripheral field vision limited. Nose without bleeding. Airway patent. NECK: Trachea midline. No JVD. Supple. CARDIOVASCULAR: Regular rate and rhythm without murmurs, gallops, or rubs. RESPIRATORY: Clear to auscultation. Breath sounds equal bilaterally. No wheezes , rales, or rhonchi. GASTROINTESTINAL: Abdomen soft, non-tender, nondistended. Bowel Sounds normoactive x4. MUSCULOSKELETAL: Extremities without clubbing, cyanosis, or edema. NEUROLOGICAL: Awake and alert. Oriented to time, place, person. No focal neuro deficit. Moves all extremities. Normal speech. A/P Problem List: (1) Pseudotumor cerebri ICD Code: G93.2 - Benign intracranial hypertension Status: Chronic Assessment and Plan 32-year-old female with a past medical history significant for pseudotumor cerebri, neurologist is Dr. Haddad, neurosurgeon is Dr. Cerrato, presents to the emergency department for evaluation of worsening visual changes and severe headache. Pseudotumor cerebri with visual changes -Neurosurgery consulted, appreciate assistance -Interventional radiology consulted for LP, follow-up results -Percocet 10/325, Dilaudid IV for breakthrough pain Blurred vision -Patient was seen previously by Dr. Arndt, manufacturing automation engineer last April, with recommendations to continue with follow up. She was only seen once and never followed up in the office. -Per notes patient has no signs of papillaedema. Visual field showed extreme constricted vision in her periphery. This could be sign of significant nerve damage in the past, though she did have a large number of false negatives , falling asleep during test so unclear how valid this test is, though it is certainly striking. Patient had the repeat exam in a few months but never showed up in the office. Pain seeking behavior -Reported by RN patient is sleeping in her room and sets her phone on alarm to get IV dilaudid, c/o breakthrough pain -DC Dilaudid IV for now, monitor -Patient has visited the ED >8x in the past months, reporting pain but has not been following up with specialists DVT Prop ambulation Discharge Planning Plan to DC when cleared by neurosurgery Tristian Pineda Aug 06, 2017 10:08
--- NOTE | 2017-08-06 11:33 | RADRPT ---
EXAM DATE/TIME: 08/06/2017 10:33 [facility] COMPARISON: LUMBAR PUNCTURE W/OPENING PRESSURES, July 29, 2017, 11:26. INDICATIONS : Patient presents with psuedtumor cerebri in need of lumbar puncture with opening pressures to relieve headaches. MEDICAL HISTORY : Pseudotumor cerebri History of renal stones SURGICAL HISTORY : Multiple lumbar punctures Renal stent placement - left ENCOUNTER: Subsequent ACUITY: 1 day PAIN SCORE: 10/10 LOCATION: Headache LUMBAR PUNCTURE TIME: 10:23 hours FLUORO TIME: 0.15 minutes IMAGE SERIES: 1 ACCESS LEVEL: L2-3 OPENING PRESSURE: 20.25 cm of water CLOSING PRESSURE: Not requested. FLUID: 13 cc of clear CSF was collected and sent to the laboratory for analysis. PROCEDURE : 1. Fluoroscopic guided lumbar puncture. 2. Recording of opening pressure. The risks, benefits and alternatives to the procedure were explained and verbal and written consent w as obtained. The site was prepped in sterile fashion. Full sterile technique was used, including ca p, mask, sterile gloves and gown and a large sterile sheet. Hand hygiene and 2% chlorhexidine and/or betadine/alcohol prep was utilized per protocol for cutaneous antisepsis. The skin and subcutaneous tissues were infiltrated with local anesthetic solution. With fluoroscopic guidance the lumbar thecal sac was punctured at the above level described above and the opening pressure was recorded. The above described fluid was removed without difficulty. The patient tolerated the procedure well and there were no complications. CONCLUSION: Uncomplicated fluoroscopically guided lumbar puncture with pressures as above. Josue Vargas MD on August 06, 2017 at 11:30 Board Certified Radiologist. This report was verified electronically.
[2017-08-06 11:41] LABS: TOTAL PROTEIN,CSF 25.1 MG/DL (15.0-45.0)
[2017-08-06] MEDS: SODIUM CHLOR 0.9% 1000 ML INJ 1,000 ML IV SCH ×2 (11:53→17:49)
[2017-08-06] MEDS: SODIUM CHLORIDE 0.9% FLUSH 10 ML FLUSH IV FLUSH SCH ×2 (11:54→20:48)
[2017-08-06 12:30] LABS: CSF LYMPHOCYTES 53 %; CSF MONOCYTES 18 %; CSF NEUTROPHILS 29 %
[2017-08-06] MEDS: oxyCODONE/ACETAMINOPHEN 10 MG/325 MG TAB PO PRN ×2 (12:40→18:40)
[2017-08-06 12:46] LABS: VOLUME TUBE # 1 2.2 ML
[2017-08-06 12:47] LABS: SUPERNATE COLOR TUBE #1 CLEAR (CLEAR)
[2017-08-06 12:49] LABS: RBC TUBE #4 3 /MM3; WBC TUBE #4 3 /MM3 (0-10)
[2017-08-06] MEDS: ONDANSETRON HCL 4 MG/2 ML VIAL IVP PRN (14:51)
[2017-08-06] MEDS: DIAZEPAM 5 MG TAB PO PRN (20:48)
--- NOTE | 2017-08-06 21:20 | EKG ---
Date Performed: 08/05/2017 Time Performed: 22:18:11 PTAGE: 32 years EKG: SINUS BRADYCARDIA WITH SINUS ARRHYTHMIA POSSIBLE RIGHT VENTRICULAR CONDUCTION DELAY BORDERL INE ECG PREVIOUS TRACING : 07/27/2017 19.48 Since the previous tracing, no significant change noted DOCTOR: Selvin Murphy Interpretating Date/Time 08/06/2017 21:19:17
[2017-08-06] MEDS ORDERED: ACETAMIN 325 MG/BUTALBITAL 50 MG/CAFFEINE 40 MG TAB PO ONE (23:15)
[2017-08-07] MEDS: oxyCODONE/ACETAMINOPHEN 10 MG/325 MG TAB PO PRN ×3 (03:12→21:00)
[2017-08-07] MEDS: SODIUM CHLOR 0.9% 1000 ML INJ 1,000 ML IV SCH (03:13)
[2017-08-07 03:38] VITALS: BP 100/64; PULSE 48; RESP 17; TEMP 98.5; O2SAT 95
[2017-08-07 07:01] VITALS: BP 97/61; PULSE 67; RESP 16; TEMP 98; O2SAT 97
[2017-08-07] MEDS: SODIUM CHLORIDE 0.9% FLUSH 10 ML FLUSH IV FLUSH SCH ×2 (09:00→21:00)
[2017-08-07] MEDS: acetaZOLAMIDE SEQUELS 500 MG SUSTAINED RELEASE CAP PO SCH ×3 (10:30→17:14)
[2017-08-07] MEDS: FUROSEMIDE 40 MG TAB PO SCH ×2 (10:31→20:59)
[2017-08-07] MEDS: TOPIRAMATE 100 MG TAB PO SCH ×2 (10:31→20:59)
[2017-08-07 10:43] VITALS: BP_SYST 123; BP_SYST 99; BP_DIAS 64; BP_DIAS 65; PULSE 67; RESP 16; TEMP 98.6; O2SAT 97
[2017-08-07] MEDS: MORPHINE SULFATE 2 MG/ML SYRINGE IV PUSH PRN ×3 (13:29→22:29)
--- NOTE | 2017-08-07 15:34 | HHI.PR ---
Subjective Remarks Follow-up visit pseudotumor cerebri, multiple lumbar punctures, blurry vision. Patient seen and examined today laying in bed. She is status post lumbar puncture. Patient has multiple complaints referring to processes more than her condition. She feels feverish. Temp was checked 98.9. She complains of headache, states it is post lumbar puncture headaches that she usually have, severe. Patient was seen prior to coming into the room eating her salad. She continues to complain of blurry vision. States unable to identify objects from 3 feet. However, patient is also able to dial numbers and use her phone. Reports she called the office of Dr. Dash to send all the information including her exams for her visual field that shows papilledema. Denies SOB/ dyspnea. Denies chest pain, palpitations, headaches, dizziness. Denies fevers, chills, n/v/d. Denies dysuria. Objective Vitals Vital Signs Date Time Temp Pulse Resp B/P (MAP) Pulse Ox O2 Delivery O2 Flow Rate FiO2 08/07/17 10:43 98.6 67 16 123/64 (83) 97 08/07/17 07:01 98.0 67 16 97/61 (73) 97 08/07/17 03:38 98.5 48 17 100/64 (76) 95 08/06/17 23:58 98.6 51 17 103/59 (74) 97 08/06/17 19:40 99.2 77 17 130/88 (102) 94 08/06/17 15:43 98.5 60 16 109/56 (73) 96 I/O 08/06/17 08/06/17 08/06/17 08/07/17 08/07/17 08/07/17 07:00 15:00 23:00 07:00 15:00 23:00 Intake Total 0 ml 600 ml 1200 ml Output Total 1000 ml Balance 0 ml 600 ml 200 ml Intake Oral 0 ml 600 ml 1200 ml Output Urine Total 1000 ml Result Diagram: 08/06/17 0708/06/17726 Imaging Last Impressions Lumbar Puncture Fluoroscopy 08/06/17 0000 Signed Impressions: Service Date/Time: Sunday, August 06, 2017 10:33 - CONCLUSION: Uncomplicated fluoroscopically guided lumbar puncture with pressures as above. Josue Vargas MD Objective Remarks GENERAL: This is an obese, well-developed patient, in no apparent distress. SKIN: Warm and dry. HEENT: Normocephalic. Pupils equal round and reactive. Peripheral field vision limited. Nose without bleeding. Airway patent. NECK: Trachea midline. Supple. No nuchal rigidity. CARDIOVASCULAR: Regular rate and rhythm without murmurs, gallops, or rubs. RESPIRATORY: Clear to auscultation. Breath sounds equal bilaterally. No wheezes , rales, or rhonchi. GASTROINTESTINAL: Abdomen soft, non-tender, nondistended. Bowel Sounds normoactive x4. MUSCULOSKELETAL: Extremities without clubbing, cyanosis, or edema. Lumbar puncture site, CDI NEUROLOGICAL: Awake and alert. Oriented to time, place, person. No focal neuro deficit. Moves all extremities. Normal speech. A/P Problem List: (1) Pseudotumor cerebri ICD Code: G93.2 - Benign intracranial hypertension Status: Chronic Assessment and Plan 32-year-old female with a past medical history significant for pseudotumor cerebri, neurologist is Dr. Haddad, neurosurgeon is Dr. Cerrato, presents to the emergency department for evaluation of worsening visual changes and severe headache. Pseudotumor cerebri with visual changes S/P LP (08/06/17) -Neurosurgery consulted, appreciate assistance -Interventional radiology consulted for LP, LP Done -LP cultures NGTD, follow up resulta -Percocet 10/325, Morphine IV for breakthrough pain -Morphine IV 4mg x 1 dose now. States Fioricet has not worked in the past. Blurred vision -Patient was seen previously by Dr. Arndt, pedicurist last April, with recommendations to continue with follow up. She was only seen once and never followed up in the office. -Per notes patient has no signs of papilla edema. Visual field showed extreme constricted vision in her periphery. This could be sign of significant nerve damage in the past, though she did have a large number of false negatives , falling asleep during test so unclear how valid this test is, though it is certainly striking. Patient had the repeat exam in a few months but never showed up in the office. -Pending report from Dr. Dash's office Pain seeking behavior -Reported by RN patient is sleeping in her room and sets her phone on alarm to get IV dilaudid, c/o breakthrough pain -DC Dilaudid IV for now, monitor -Patient has visited the ED >8x in the past months, reporting pain but has not been following up with specialists -Morphine IV for now. Reviewed Pain medication use, has not asked around the clock DVT Prop ambulation Discharge Planning Plan to DC when cleared by neurosurgery Tristian Pineda Aug 07, 2017 15:34
[2017-08-07] MEDS ORDERED: MORPHINE SULFATE 4 MG/ML INJ IV PUSH ONE (15:45)
[2017-08-07 16:23] VITALS: BP 100/67; PULSE 67; RESP 16; TEMP 99; O2SAT 96
[2017-08-07] MEDS: DIAZEPAM 5 MG TAB PO PRN (17:15)
[2017-08-07 19:45] VITALS: BP 107/57; PULSE 81; RESP 17; O2SAT 97
[2017-08-07] MEDS: MECLIZINE HCL 25 MG TAB PO PRN (22:28)
[2017-08-07 23:33] VITALS: BP 98/53; PULSE 61; RESP 17; TEMP 98.5; O2SAT 96
[2017-08-08] MEDS: oxyCODONE/ACETAMINOPHEN 10 MG/325 MG TAB PO PRN ×3 (03:12→16:16)
[2017-08-08 04:43] VITALS: BP 113/60; PULSE 69; RESP 16; TEMP 98.6; O2SAT 99
[2017-08-08] MEDS: SODIUM CHLORIDE 0.9% FLUSH 10 ML FLUSH IV FLUSH PRN (04:48)
[2017-08-08] MEDS: MORPHINE SULFATE 2 MG/ML SYRINGE IV PUSH PRN ×4 (04:48→22:08)
[2017-08-08 07:05] VITALS: BP 97/57; PULSE 61; RESP 12; TEMP 97.7; O2SAT 99
[2017-08-08] MEDS: TOPIRAMATE 100 MG TAB PO SCH ×2 (09:00→22:07)
[2017-08-08] MEDS: FUROSEMIDE 40 MG TAB PO SCH ×2 (09:24→22:07)
[2017-08-08] MEDS: acetaZOLAMIDE SEQUELS 500 MG SUSTAINED RELEASE CAP PO SCH ×3 (09:25→18:22)
[2017-08-08] MEDS: SODIUM CHLORIDE 0.9% FLUSH 10 ML FLUSH IV FLUSH SCH ×2 (09:25→22:07)
[2017-08-08 11:31] VITALS: BP 103/56; PULSE 50; RESP 12; TEMP 98; O2SAT 95
[2017-08-08] MEDS: ONDANSETRON HCL 4 MG/2 ML VIAL IVP PRN (14:05)
[2017-08-08 15:20] VITALS: BP 108/66; PULSE 65; RESP 16; TEMP 98.3; O2SAT 96
--- NOTE | 2017-08-08 16:11 | HHI.PR ---
Subjective Remarks Follow-up visit pseudotumor cerebri, multiple lumbar punctures, blurry vision. Patient seen and examined today laying in bed. States she feels miserable right now. Reports left eye pain, pressure, increasing blurry vision. Patient is very upset. States that she is going to go blind. States she also has increasing headaches especially aggravated with movement, when sitting up and standing up. She also felt dizzy when sitting up and getting out of bed to chair. Pain medication is working however she would occasionally ask for more breakthrough pain. Patient also states that she gets some relief with the headaches from laying down flat. She also reports nausea denies SOB/ dyspnea. Denies chest pain, palpitations. Denies fevers, chills. Denies dysuria. Dr. Dash's report came back. Note stated decrease VA/peripheral vision possibly related to increased ICP. Objective Vitals Vital Signs Date Time Temp Pulse Resp B/P (MAP) Pulse Ox O2 Delivery O2 Flow Rate FiO2 08/08/17 15:20 98.3 65 16 108/66 (80) 96 08/08/17 11:31 98.0 50 12 103/56 (72) 95 08/08/17 07:05 97.7 61 12 97/57 (70) 99 08/08/17 04:53 14 08/08/17 04:43 98.6 69 16 113/60 (77) 99 08/08/17 04:12 15 08/07/17 23:33 98.5 61 17 98/53 (68) 96 08/07/17 19:45 81 17 107/57 (74) 97 08/07/17 16:23 99.0 67 16 100/67 (78) 96 I/O 08/07/17 08/07/17 08/07/17 08/08/17 08/08/17 08/08/17 07:00 15:00 23:00 07:00 15:00 23:00 Intake Total 1200 ml Output Total 1000 ml Balance 200 ml Intake Oral 1200 ml Output Urine Total 1000 ml Result Diagram: 08/06/17 0727 08/06/17 0727 Imaging Last Impressions Lumbar Puncture Fluoroscopy 08/06/17 0000 Signed Impressions: Service Date/Time: Sunday, August 06, 2017 10:33 - CONCLUSION: Uncomplicated fluoroscopically guided lumbar puncture with pressures as above. Josue Vargas MD Objective Remarks GENERAL: This is an obese, well-developed patient, in no apparent distress. SKIN: Warm and dry. HEENT: Normocephalic. Pupils equal round and reactive. Peripheral field vision limited. Nose without bleeding. Airway patent. NECK: Trachea midline. Supple. No nuchal rigidity. CARDIOVASCULAR: Regular rate and rhythm without murmurs, gallops, or rubs. RESPIRATORY: Clear to auscultation. Breath sounds equal bilaterally. No wheezes , rales, or rhonchi. GASTROINTESTINAL: Abdomen soft, non-tender, nondistended. Bowel Sounds normoactive x4. MUSCULOSKELETAL: Extremities without clubbing, cyanosis, or edema. Lumbar puncture site, CDI NEUROLOGICAL: Awake and alert. Oriented to time, place, person. No focal neuro deficit. Moves all extremities. Normal speech. A/P Problem List: (1) Pseudotumor cerebri ICD Code: G93.2 - Benign intracranial hypertension Status: Chronic Assessment and Plan 32-year-old female with a past medical history significant for pseudotumor cerebri, neurologist is Dr. Haddad, neurosurgeon is Dr. Cerrato, presents to the emergency department for evaluation of worsening visual changes and severe headache. Pseudotumor cerebri with visual changes S/P LP (08/06/17) -Neurosurgery consulted, appreciate assistance -Interventional radiology consulted for LP, LP Done -LP cultures NGTD, follow up resulta -Percocet 10/325, Morphine IV for breakthrough pain -Increasing headaches especially when standing up. -Call placed to neurosurgeon, patient might have increasing ICP again. She may possibly benefit from ASSOCIATE SOFTWARE DEVELOPMENT ENGINEER shunt Blurred vision -Patient was seen previously by Dr. Arndt, electronics technician apprentice last April, with recommendations to continue with follow up. She was only seen once and never followed up in the office. -Per notes patient has no signs of papilla edema. Visual field showed extreme constricted vision in her periphery. This could be sign of significant nerve damage in the past, though she did have a large number of false negatives , falling asleep during test so unclear how valid this test is, though it is certainly striking. Patient had the repeat exam in a few months but never showed up in the office. -Complains of increasing left eye vision blurriness. -Dr. Dash's report came back. Note stated decrease VA/peripheral vision possibly related to increased ICP. Pain seeking behavior -Reported by RN patient is sleeping in her room and sets her phone on alarm to get IV dilaudid, c/o breakthrough pain, previous days -DC Dilaudid IV for now, monitor -Patient has visited the ED >8x in the past months, reporting pain but has not been following up with specialists -Morphine IV for breakthrough pain DVT Prop ambulation Discharge Planning Plan to DC when cleared by neurosurgery. Clinically not well to DC Tristian Pineda Aug 08, 2017 16:11
--- NOTE | 2017-08-08 20:23 | PD.CONS ---
HPI Service Neurosurgery Consult Requested By Medicine service Reason for Consult Pseudotumor cerebri Primary Care Physician Unknown History of Present Illness Ms. Mayberry is a 32-year-old female with history of chronic headaches, visual disturbance. He has had extensive medical evaluation in the past including multiple imaging studies, multiple hospital and emergency room visits, multiple lumbar punctures, neurology, neurosurgery and ophthalmology evaluations. Previously seen in [place] for neurosurgery evaluation, more recently by as well as during her last hospital visit the undersigned. She complains of significant blurred vision and restriction of visual hyatt on a relatively chronic basis. During her most recent visit, attempts were made to obtain these records without success. During this visit previous records have been again requested. Review of a note from last year from Dr. Arndt medicates a single visit with no evidence of papilledema, follow-up scheduled but patient did not attend that appointment. Another evaluation more recently from Dr. Randolph indicates constriction of visual hyatt, apparently confrontation testing, Review of Systems Constitutional: COMPLAINS OF: Weight gain, Dizziness, DENIES: Fever Eyes: COMPLAINS OF: Blurred vision, Vision loss, DENIES: Diplopia, Double Vision Ears, nose, mouth, throat: DENIES: Hearing loss, Vertigo Cardiovascular: DENIES: Chest pain Gastrointestinal: COMPLAINS OF: Nausea, DENIES: Diarrhea, Vomiting Musculoskeletal: DENIES: Muscle aches, Joint Swelling Hematologic/lymphatic: DENIES: Bruising Neurologic: COMPLAINS OF: Headache, DENIES: Abnormal gait Psychiatric: COMPLAINS OF: Anxiety Past Family Social History Allergies: Coded Allergies: Sulfa (Sulfonamide Antibiotics) (Verified Allergy, Severe, RASH, 07/27/17) amoxicillin (Verified Allergy, Severe, Anaphylaxis, 07/27/17) ketorolac (Verified Allergy, Severe, Anaphylaxis, 07/27/17) anaphylaxis per patient ibuprofen (Verified Allergy, Intermediate, HIVES, FACIAL SWELLING., 07/27/17 ) tramadol (Verified Allergy, Intermediate, HIVES, 07/27/17) hives, sewll up latex (Verified Allergy, Unknown, 07/27/17) penicillin G (Verified Allergy, Unknown, HIVES, 07/27/17) prochlorperazine (Verified Allergy, Unknown, HIVES, 07/27/17) sumatriptan (Verified Adverse Reaction, Severe, VOMITING PASSED OUT, ) Past Medical History Pseudotumor cerebri Renal stones Past Surgical History Renal stent Reported Medications Reported Meds & Active Scripts Active Florastor (Saccharomyces Boulardii) 250 Mg Cap 250 Mg PO BID 28 Days Valium (Diazepam) 5 Mg Tab 5 Mg PO BID PRN 30 Days Oxycodone-Acetaminophen 10-325 (Oxycodone HCl/Acetaminophen) 10 Mg-325 Mg Tablet 1 Tab PO Q6H PRN 30 Days Meclizine (Meclizine HCl) 25 Mg Tab 25 Mg PO TID PRN 30 Days Lasix (Furosemide) 40 Mg Tab 40 Mg PO BID 30 Days Diamox Sequels ER 12 HR (Acetazolamide) 500 Mg Cap 500 Mg PO TID 30 Days Potassium Chloride ER (Potassium Chloride) 20 Meq Tab 20 Meq PO DAILY 30 Days Topamax (Topiramate) 50 Mg Tab 100 Mg PO BID 30 Days Reported Reglan (Metoclopramide HCl) 10 Mg Tab 10 Mg PO QID Family History Negative neurologic disorders Social History Smokes cigarettes infrequently. No alcohol or illicit drug use Physical Exam Vital Signs Vital Signs Date Time Temp Pulse Resp B/P (MAP) Pulse Ox O2 Delivery O2 Flow Rate FiO2 08/08/17 15:20 98.3 65 16 108/66 (80) 96 08/08/17 11:31 98.0 50 12 103/56 (72) 95 08/08/17 07:05 97.7 61 12 97/57 (70) 99 08/08/17 04:53 14 08/08/17 04:43 98.6 69 16 113/60 (77) 99 08/08/17 04:12 15 08/07/17 23:33 98.5 61 17 98/53 (68) 96 Physical Exam Awake and alert. Respirations clear and regular Pulse regular Abdomen is soft without significant tenderness. She counts fingers in the medial quadrants of the left eye otherwise exhibits circumferential constrictive vision on the left. She has moderate intact vision central right eye, limited central vision left eye, but otherwise significant loss of medial and lateral quadrant vision to confrontation bilaterally. Facial motor movements intact. Extraocular movements intact Laboratory Date/Time Source Procedure Growth Status 08/06/17 10:43 Cerebral Spinal Fluid Lumbar Puncture Fungal Smear - Final NO FUNGAL ELEMENTS SEEN. Resulted 08/06/17 10:43 Cerebral Spinal Fluid Lumbar Puncture Fungal Culture Pending Resulted Result Diagram: 08/06/1772608/06/17726 Assessment and Plan Diagnosis: (1) Pseudotumor cerebri ICD Codes: G93.2 - Benign intracranial hypertension Status: Chronic Assessment and Plan Impression: History of pseudotumor cerebri. Her history is somewhat convoluted , having been seen by numerous physicians without any definitive treatment thus far. She is previously been referred to ophthalmology for possible optic nerve fenestration, states that she did not go due to insurance reasons. She also has not been totally compliant with her local hard metals hand engraver in regards to follow-up. I advised her that her previous limited ophthalmology records from 2017 indicate no definite papilledema, and more recent records mention restriction of visual hyatt but did not address the issue of any papilledema on examination. There is also somewhat unclear whether she had a formal visual field test. Her most recent lumbar puncture opening pressure was 20. She likely has some component of idiopathic intracranial hypertension. She would like to proceed with lumboperitoneal shunt placement. The procedure has been discussed. I strongly cautioned her that there is certainly no guarantee that she would have any improvement in the vision or headaches with a lumbar peritoneal shunt, but under the circumstances given her long history of persistent visual field loss, and an apparent recommendation by her hard metals hand engraver in the past week or 2 that surgery would potentially benefit her. She is tentatively scheduled for surgery on 08/11/2017. Mamadou Cerrato MD Aug 08, 2017 20:23
[2017-08-08 20:47] VITALS: BP 138/73; PULSE 63; RESP 17; TEMP 98.2; O2SAT 97
[2017-08-08] MEDS: MECLIZINE HCL 25 MG TAB PO PRN (22:07)
[2017-08-09] VITALS (8 sets, daily range): BP systolic 81–129; BP diastolic 45–75; PULSE 44–74; RESP 16–18; TEMP 97.3–98.8; O2SAT 93–98
[2017-08-09] MEDS: oxyCODONE/ACETAMINOPHEN 10 MG/325 MG TAB PO PRN ×4 (03:29→23:21)
[2017-08-09] MEDS: MORPHINE SULFATE 2 MG/ML SYRINGE IV PUSH PRN (07:42)
[2017-08-09] MEDS: TOPIRAMATE 100 MG TAB PO SCH ×2 (07:42→20:35)
[2017-08-09] MEDS: FUROSEMIDE 40 MG TAB PO SCH ×2 (07:43→20:35)
[2017-08-09] MEDS: acetaZOLAMIDE SEQUELS 500 MG SUSTAINED RELEASE CAP PO SCH ×3 (07:43→18:46)
[2017-08-09] MEDS: SODIUM CHLORIDE 0.9% FLUSH 10 ML FLUSH IV FLUSH SCH ×2 (07:43→20:36)
--- NOTE | 2017-08-09 09:03 | HHI.PR ---
Subjective Remarks Follow-up visit pseudotumor cerebri, multiple lumbar punctures, blurry vision. Patient seen and examined today laying in bed. States she continues to have headaches and dizziness. Reports she continues to have blurry vision that she can't see the menu. Complaints about other matters unrelated to her medical condition. Reports no nausea no vomiting. Denies shortness of breath or dyspnea.Denies chest pain, palpitations. Denies fevers, chills. Denies dysuria. Objective Vitals Vital Signs Date Time Temp Pulse Resp B/P (MAP) Pulse Ox O2 Delivery O2 Flow Rate FiO2 08/09/17 07:18 98.4 65 16 125/61 (82) 98 08/09/17 06:41 98.8 54 16 112/56 (74) 96 08/09/17 04:29 15 08/09/17 03:33 97.3 44 16 107/55 (72) 93 08/09/17 00:03 98.1 60 16 81/45 (57) 94 08/08/17 22:13 15 08/08/17 20:47 98.2 63 17 138/73 (94) 97 08/08/17 15:20 98.3 65 16 108/66 (80) 96 08/08/17 11:31 98.0 50 12 103/56 (72) 95 I/O 08/08/17 08/08/17 08/08/17 08/09/17 08/09/17 08/09/17 07:00 15:00 23:00 07:00 15:00 23:00 # Voids 1 Result Diagram: 08/06/17 0727 08/06/17 0727 Imaging Last Impressions Lumbar Puncture Fluoroscopy 08/06/17 0000 Signed Impressions: Service Date/Time: Sunday, August 06, 2017 10:33 - CONCLUSION: Uncomplicated fluoroscopically guided lumbar puncture with pressures as above. Josue Vargas MD Objective Remarks GENERAL: This is an obese, well-developed patient, in no apparent distress. SKIN: Warm and dry. HEENT: Normocephalic. Pupils equal round and reactive. Peripheral field vision limited. Nose without bleeding. Airway patent. NECK: Trachea midline. Supple. No nuchal rigidity. CARDIOVASCULAR: Regular rate and rhythm without murmurs, gallops, or rubs. RESPIRATORY: Clear to auscultation. Breath sounds equal bilaterally. No wheezes , rales, or rhonchi. GASTROINTESTINAL: Abdomen soft, non-tender, nondistended. Bowel Sounds normoactive x4. MUSCULOSKELETAL: Extremities without clubbing, cyanosis, or edema. Lumbar puncture site, CDI NEUROLOGICAL: Awake and alert. Oriented to time, place, person. No focal neuro deficit. Moves all extremities. Normal speech. A/P Problem List: (1) Pseudotumor cerebri ICD Code: G93.2 - Benign intracranial hypertension Status: Chronic Assessment and Plan 32-year-old female with a past medical history significant for pseudotumor cerebri, neurologist is Dr. Haddad, neurosurgeon is Dr. Cerrato, presents to the emergency department for evaluation of worsening visual changes and severe headache. Pseudotumor cerebri with visual changes S/P LP (08/06/17) -Neurosurgery consulted, appreciate assistance -Interventional radiology consulted for LP, LP Done -LP cultures NGTD, follow up resulta -Percocet 10/325, Morphine IV for breakthrough pain - Increased to 3mg -Increasing headaches especially when standing up. -Dr. Cerrato saw the patient. Plan for lumbar shunt placement 08/11/17. Blurred vision -Patient was seen previously by Dr. Arndt, tire servicer last April, with recommendations to continue with follow up. She was only seen once and never followed up in the office. -Per notes patient has no signs of papilla edema. Visual field showed extreme constricted vision in her periphery. This could be sign of significant nerve damage in the past, though she did have a large number of false negatives , falling asleep during test so unclear how valid this test is, though it is certainly striking. Patient had the repeat exam in a few months but never showed up in the office. -Complains of increasing left eye vision blurriness. -Dr. Dash's report came back. Note stated decrease VA/peripheral vision possibly related to increased ICP. No mention of papilledema. Pain seeking behavior -Reported by RN patient is sleeping in her room and sets her phone on alarm to get IV dilaudid, c/o breakthrough pain, previous days -DC Dilaudid IV for now, monitor -Patient has visited the ED >8x in the past months, reporting pain but has not been following up with specialists -Morphine IV for breakthrough pain -Counselled. Compliant. DVT Prop ambulation Discharge Planning Plan to admit inpatient for lumbar shunt 08/11/17 Tristian Pineda Aug 09, 2017 09:03
[2017-08-09 11:03] LABS: CSF CRYPTOCOCCUS AG CONF ND (NOT DETECTD)
[2017-08-09] MEDS ORDERED: oxyCODONE/ACETAMINOPHEN 10 MG/325 MG TAB PO PRN (12:30)
[2017-08-09] MEDS: MORPHINE SULFATE 4 MG/ML INJ IV PUSH PRN ×2 (13:28→20:36)
[2017-08-09] MEDS: MECLIZINE HCL 25 MG TAB PO PRN (15:28)
[2017-08-09] MEDS: DIAZEPAM 5 MG TAB PO PRN ×2 (15:28→23:21)
[2017-08-09] MEDS: ONDANSETRON HCL 4 MG/2 ML VIAL IVP PRN (20:35)
[2017-08-09 23:54] LABS: CSF CRYPTOCOCCUS ANTIGEN NOT DETECTED (NEGATIVE)
[2017-08-10] MEDS: MORPHINE SULFATE 4 MG/ML INJ IV PUSH PRN ×6 (00:47→23:25)
[2017-08-10 05:35] VITALS: BP 102/56; PULSE 66; RESP 19; TEMP 98.2; O2SAT 95
[2017-08-10 08:22] VITALS: BP 112/60; PULSE 71; RESP 16; TEMP 96.8; O2SAT 97
[2017-08-10] MEDS: acetaZOLAMIDE SEQUELS 500 MG SUSTAINED RELEASE CAP PO SCH ×3 (09:12→18:33)
[2017-08-10] MEDS: FUROSEMIDE 40 MG TAB PO SCH ×2 (09:12→21:41)
[2017-08-10] MEDS: TOPIRAMATE 100 MG TAB PO SCH ×2 (09:12→21:40)
[2017-08-10] MEDS: SODIUM CHLORIDE 0.9% FLUSH 10 ML FLUSH IV FLUSH SCH ×2 (09:13→21:00)
[2017-08-10 12:08] VITALS: BP 124/68; PULSE 73; RESP 16; TEMP 96.8; O2SAT 97
[2017-08-10] MEDS: oxyCODONE/ACETAMINOPHEN 10 MG/325 MG TAB PO PRN ×3 (12:35→21:41)
[2017-08-10] MEDS: DIAZEPAM 5 MG TAB PO PRN (12:35)
[2017-08-10] MEDS: MECLIZINE HCL 25 MG TAB PO PRN (12:35)
--- NOTE | 2017-08-10 13:21 | HHI.PR ---
Subjective Remarks in no acute distress. looks better. headache and blurred vision is better today. Objective Vitals Vital Signs Date Time Temp Pulse Resp B/P (MAP) Pulse Ox O2 Delivery O2 Flow Rate FiO2 08/10/17 12:08 96.8 73 16 124/68 (86) 97 08/10/17 08:22 96.8 71 16 112/60 (77) 97 08/10/17 05:35 98.2 66 19 102/56 (71) 95 08/10/17 05:04 18 08/10/17 00:16 18 08/09/17 23:15 98.2 74 18 104/58 (73) 96 08/09/17 19:28 98.2 69 17 97/56 (70) 97 08/09/17 16:28 98.6 64 16 129/59 (82) 98 I/O 08/09/17 08/09/17 08/09/17 08/10/17 08/10/17 08/10/17 07:00 15:00 23:00 07:00 15:00 23:00 Intake Total 200 ml Balance 200 ml Intake Oral 200 ml # Voids 1 Result Diagram: 08/06/1772608/06/17 0727 Imaging Last Impressions Lumbar Puncture Fluoroscopy 08/06/17 0000 Signed Impressions: Service Date/Time: Sunday, August 06, 2017 10:33 - CONCLUSION: Uncomplicated fluoroscopically guided lumbar puncture with pressures as above. Joseu Vargas MD Objective Remarks GENERAL: This is a well-nourished, well-developed patient, in no apparent distress. CARDIOVASCULAR: Regular rate and regular rhythm without murmurs, gallops, or rubs. RESPIRATORY: Clear to auscultation. Breath sounds equal bilaterally. No wheezes , rales, or rhonchi. GASTROINTESTINAL: Abdomen soft, non-tender, nondistended. Normal, active bowel sounds MUSCULOSKELETAL: Extremities without clubbing, cyanosis, or edema. NEURO: Alert & Oriented x4 to person, place, time, situation. Moves all ext x4 Medications and IVs Inpatient Medications Acetaminophen (Tylenol) 650 mg Q4H PRN PO TEMP > 100.4, DELCID, Pain 1-2; Start 02/12 at 22:45 Acetaminophen/ Butalbital/ Caffeine (Fioricet 325-50-40) 1 tab ONCE ONCE PO ; Start 08/06/17 at 23:15; Stop 08/06/17 at 23:18; Status DC Acetazolamide (Diamox Sequels) 500 mg TID PO Last administered on 08/10/17 12 :34; Start 08/06/17 at 09:00 Diazepam (Valium) 5 mg BID PRN PO ANXIETY Last administered on 08/10/17 12:35 ; Start 08/05/17 at 23:00 Furosemide (Lasix) 40 mg BID PO Last administered on 08/10/17 09:12; Start 03/15 at 09:00 Hydromorphone HCl (Dilaudid Pf Inj) 1 mg Q4H PRN IV PUSH BREAKTHROUGH PAIN Last administered on 08/06/17at 14:57; Start 08/05/17 at 22:45; Stop 08/06/17 at 17:27; Status DC Lorazepam (Ativan Inj) 1 mg ONCE PRN IV PUSH Lumbar Puncture Last administered on 08/06/17at 09:50; Start 08/06/17 at 09:30; Stop 08/06/17 at 18:00; Status DC Meclizine HCl (Antivert) 25 mg TID PRN PO VERTIGO Last administered on 12:35; Start 08/05/17 at 23:00 Metoclopramide HCl (Reglan Inj) 5 mg ONCE ONCE IV PUSH ; Start 08/05/17 at 21: 00; Stop 08/05/17 at 21:02; Status DC Morphine Sulfate (Morphine Inj) 3 mg Q3H PRN IV PUSH BREAKTHROUGH PAIN Last administered on 08/10/17at 09:12; Start 08/09/17 at 11:15 Naloxone HCl (Narcan Inj) 0.4 mg UNSCH PRN IV PUSH SEE LABEL COMMENTS; Start at 22:45 Ondansetron HCl (Zofran Inj) 4 mg Q6H PRN IVP NAUSEA OR VOMITING Last administered on 08/09/17at 20:35; Start 08/05/17 at 22:45 Oxycodone/ Acetaminophen (Percocet 10-325 Mg) 1 tab Q6HR PRN PO PAIN 3-6 Last administered on 08/10/17at 06:48; Start 08/09/17 at 12:30 Potassium Chloride (KCl) 20 meq ONCE ONCE PO Last administered on 08/05/17at 23 :06; Start 08/05/17 at 21:30; Stop 08/05/17 at 21:36; Status DC Sodium Chloride 1,000 ml @ 100 mls/hr Q10H IV Last administered on 08/07/17at 03:13; Start 08/05/17 at 23:00; Stop 08/07/17 at 11:06; Status DC Sodium Chloride (NS Flush) 2 ml BID IV FLUSH Last administered on 08/10/17at 09: 13; Start 08/06/17 at 09:00 Topiramate (Topamax) 100 mg BID PO Last administered on 08/10/17at 09:12; Start 08/06/17 at 09:00 A/P Problem List: (1) Pseudotumor cerebri ICD Code: G93.2 - Benign intracranial hypertension Status: Chronic Assessment and Plan Pseudotumor cerebri with visual changes S/P LP (08/06/17) -Neurosurgery consulted, appreciate assistance -Interventional radiology consulted for LP, LP Done -LP cultures NGTD, follow up resulta -continue with pain control. -Dr. Cerrato saw the patient. Plan for lumbar shunt placement 08/11/17. Blurred vision -Patient was seen previously by Dr. Arndt, milling machine operator last April, with recommendations to continue with follow up. She was only seen once and never followed up in the office. -Per notes patient has no signs of papilla edema. Visual field showed extreme constricted vision in her periphery. This could be sign of significant nerve damage in the past, though she did have a large number of false negatives , falling asleep during test so unclear how valid this test is, though it is certainly striking. Patient had the repeat exam in a few months but never showed up in the office. -Complains of increasing left eye vision blurriness. -Dr. Dash's report came back. Note stated decrease VA/peripheral vision possibly related to increased ICP. No mention of papilledema. Pain seeking behavior -Patient has visited the ED >8x in the past months, reporting pain but has not been following up with specialists -Counselled. Compliant. DVT Prop ambulation Shonda Smalls MD Aug 10, 2017 13:21
[2017-08-10 15:43] VITALS: BP 138/63; PULSE 72; RESP 16; TEMP 98; O2SAT 98
[2017-08-10] MEDS: ONDANSETRON HCL 4 MG/2 ML VIAL IVP PRN (18:33)
[2017-08-10 22:06] VITALS: BP 119/59; PULSE 68; RESP 18; TEMP 98.6; O2SAT 92
[2017-08-11 01:10] VITALS: BP 117/61; PULSE 67; RESP 18; TEMP 98.4; O2SAT 94
[2017-08-11] MEDS: MORPHINE SULFATE 4 MG/ML INJ IV PUSH PRN ×6 (02:53→18:54)
[2017-08-11 04:12] VITALS: BP 103/67; PULSE 69; RESP 18; TEMP 98.1; O2SAT 97
[2017-08-11 07:07] LABS: HEMATOCRIT 37.2 % (35.0-46.0); HEMOGLOBIN 12.3 GM/DL (11.6-15.3); MEAN CELL VOLUME 84.1 FL (80.0-100.0); MEAN CORPUSCULAR HEMOGLOBIN 27.8 PG (27.0-34.0); MEAN CORPUSCULAR HGB CONC 33.1 % (32.0-36.0); MEAN PLATELET VOLUME 8.5 FL (7.0-11.0); PLATELET COUNT 274 TH/MM3 (150-450); RED BLOOD COUNT 4.42 MIL/MM3 (4.00-5.30); RED CELL DISTRIBUTION WIDTH 13.4 % (11.6-17.2); WHITE BLOOD COUNT 8.7 TH/MM3 (4.0-11.0)
[2017-08-11 07:37] LABS: BICARBONATE 23.6 MEQ/L (21.0-32.0); CALCIUM 8.6 MG/DL (8.5-10.1); CREATININE 0.8 MG/DL (0.50-1.00)
[2017-08-11 08:00] VITALS: BP 108/60; PULSE 61; RESP 20; TEMP 97.9; O2SAT 97
[2017-08-11] MEDS: ONDANSETRON HCL 4 MG/2 ML VIAL IVP PRN (08:59)
[2017-08-11] MEDS: FUROSEMIDE 40 MG TAB PO SCH ×2 (08:59→20:47)
[2017-08-11] MEDS: oxyCODONE/ACETAMINOPHEN 10 MG/325 MG TAB PO PRN ×2 (08:59→15:16)
[2017-08-11] MEDS ORDERED: ONDANSETRON HCL 4 MG/2 ML VIAL IV PUSH PRN (09:00)
[2017-08-11] MEDS: SODIUM CHLORIDE 0.9% FLUSH 10 ML FLUSH IV FLUSH SCH ×2 (09:00→20:48)
[2017-08-11] MEDS: TOPIRAMATE 100 MG TAB PO SCH ×2 (09:44→20:47)
[2017-08-11] MEDS: acetaZOLAMIDE SEQUELS 500 MG SUSTAINED RELEASE CAP PO SCH ×3 (09:44→17:56)
--- NOTE | 2017-08-11 10:56 | HHI.PR ---
Subjective Remarks Follow-up pseudotumor cerebri August 11, 2017-patient seen and examined, still complains of headaches, dizziness and visual disturbances. Also complaint of nausea without any emesis. Currently n.p.o. Objective Vitals Vital Signs Date Time Temp Pulse Resp B/P (MAP) Pulse Ox O2 Delivery O2 Flow Rate FiO2 08/11/17 08:00 97.9 61 20 108/60 (76) 97 08/11/17 06:38 18 08/11/17 04:12 98.1 69 18 103/67 (79) 97 08/11/17 01:10 98.4 67 18 117/61 (79) 94 08/10/17 22:46 18 08/10/17 22:06 98.6 68 18 119/59 (79) 92 08/10/17 15:43 98.0 72 16 138/63 (88) 98 08/10/17 12:08 96.8 73 16 124/68 (86) 97 I/O 08/10/17 08/10/17 08/10/17 08/11/17 08/11/17 08/11/17 07:00 15:00 23:00 07:00 15:00 23:00 Intake Total 200 ml 500 ml Balance 200 ml 500 ml Intake Oral 200 ml 500 ml # Voids 2 Result Diagram: 08/11/17 0612 08/11/17 0612 Imaging Last Impressions Lumbar Puncture Fluoroscopy 08/06/17 0000 Signed Impressions: Service Date/Time: Sunday, August 06, 2017 10:33 - CONCLUSION: Uncomplicated fluoroscopically guided lumbar puncture with pressures as above. Josue Vargas MD Objective Remarks GENERAL: NAD SKIN: Warm and dry. HEAD: Normocephalic. EYES: No scleral icterus. No injection or drainage. NECK: Supple, trachea midline. No JVD or lymphadenopathy. CARDIOVASCULAR: Regular rate and rhythm without murmurs, gallops, or rubs. RESPIRATORY: Breath sounds equal bilaterally. No accessory muscle use. GASTROINTESTINAL: Abdomen soft, non-tender, nondistended. MUSCULOSKELETAL: No cyanosis, or edema. BACK: Nontender without obvious deformity. No CVA tenderness. A/P Problem List: (1) Pseudotumor cerebri ICD Code: G93.2 - Benign intracranial hypertension Status: Chronic (2) History of idiopathic intracranial hypertension ICD Code: Z86.69 - Personal history of other diseases of the nervous system and sense organs Status: Acute Assessment and Plan 32-year-old female with Pseudotumor cerebri with visual changes S/P LP (08/06/17) -Neurosurgery consulted, appreciate assistance -LP cultures NGTD, -Continue Diamox, Lasix and Topamax -continue with pain control. -Plan for lumbar shunt placement today 08/11/17. Blurred vision -Patient was seen previously by Dr. Arndt, feed grinder last April, with recommendations to continue with follow up. -Per notes patient has no signs of papilla edema. Visual field showed extreme constricted vision in her periphery. This could be sign of significant nerve damage in the past, though she did have a large number of false negatives , falling asleep during test so unclear how valid this test is, though it is certainly striking. Patient had the repeat exam in a few months but never showed up in the office. -Complains of increasing left eye vision blurriness. -Dr. Dash's report came back. Note stated decrease VA/peripheral vision possibly related to increased ICP. No mention of papilledema. Pain seeking behavior -Patient has visited the ED >8x in the past months, reporting pain but has not been following up with specialists -Counselled. Compliant. DVT Prop ambulation Nemesio Darden MD Aug 11, 2017 10:56
[2017-08-11 12:15] VITALS: BP 114/89; PULSE 67; RESP 20; TEMP 98.5; O2SAT 98
[2017-08-11 15:48] VITALS: BP 116/71; PULSE 62; RESP 20; TEMP 97.9; O2SAT 100
--- NOTE | 2017-08-11 17:13 | HHI.NSPN ---
(Chandrakant Yeung) History Chief Complaint: None (Chandrakant Yeung) Interval History 08/08: Ms. Mayberry is a 32-year-old female with history of chronic headaches, visual disturbance. He has had extensive medical evaluation in the past including multiple imaging studies, multiple hospital and emergency room visits , multiple lumbar punctures, neurology, neurosurgery and ophthalmology evaluations. Previously seen in [place] for neurosurgery evaluation, more recently by as well as during her last hospital visit the undersigned. She complains of significant blurred vision and restriction of visual hyatt on a relatively chronic basis. During her most recent visit, attempts were made to obtain these records without success. During this visit previous records have been again requested. Review of a note from last year from Dr. Arndt medicates a single visit with no evidence of papilledema, follow-up scheduled but patient did not attend that appointment. Another evaluation more recently from Dr. Randolph indicates constriction of visual hyatt, apparently confrontation testing, 08/11: The patient was to go to the operating room this afternoon for a lumboperitoneal shunt. Unfortunately due to an emergency she was postponed until tomorrow. When seen the patient was ambulating the hallway with assistance from the staff. She had no complaints and she remains neurologically stable. (Chandrakant Yeung) Exam Results 08/09/17 08/09/17 08/10/17 08/10/17 08/11/17 08/11/17 06:00 18:00 06:00 18:00 06:00 18:00 Intake Total 200 ml 200 ml 300 ml Balance 200 ml 200 ml 300 ml Intake Oral 200 ml 200 ml 300 ml # Voids 1 2 2 Vital Signs Date Time Temp Pulse Resp B/P (MAP) Pulse Ox O2 Delivery O2 Flow Rate FiO2 08/11/17 15:48 97.9 62 20 116/71 (86) 100 08/11/17 12:15 98.5 67 20 114/89 (97) 98 08/11/17 08:00 97.9 61 20 108/60 (76) 97 08/11/17 06:38 18 08/11/17 04:12 98.1 69 18 103/67 (79) 97 08/11/17 01:10 98.4 67 18 117/61 (79) 94 08/10/17 22:46 18 08/10/17 22:06 98.6 68 18 119/59 (79) 92 08/10/17 15:43 98.0 72 16 138/63 (88) 98 08/10/17 12:08 96.8 73 16 124/68 (86) 97 08/10/17 08:22 96.8 71 16 112/60 (77) 97 08/10/17 05:35 98.2 66 19 102/56 (71) 95 08/09/17 23:15 98.2 74 18 104/58 (73) 96 08/09/17 19:28 98.2 69 17 97/56 (70) 97 08/09/17 16:28 98.6 64 16 129/59 (82) 98 08/09/17 12:02 98.2 66 16 125/75 (92) 96 08/09/17 07:18 98.4 65 16 125/61 (82) 98 08/09/17 06:41 98.8 54 16 112/56 (74) 96 08/09/17 04:29 15 08/09/17 03:33 97.3 44 16 107/55 (72) 93 08/09/17 00:03 98.1 60 16 81/45 (57) 94 08/08/17 22:13 15 08/08/17 20:47 98.2 63 17 138/73 (94) 97 (Chandrakant Yeung) Physical Examination GENERAL: Awake & alert, ambulating the [address] way w/assistance, gait steady. Normal affect. Readily interacts. No apparent distress. HEENT: Normocephalic, atraumatic. Decreased visual hyatt w/moderate central vision. MUSCULOSKELETAL: Moves all extremities spontaneously & purposefully w/o difficulty. No evident clubbing or deformity. NEUROLOGICAL: AAOx3. Speech clear & appropriate. Follows simple commands w/o difficulty. Decreased visual hyatt w/moderate central vision. Sensation intact to light touch to all extremities. Motor strength is 5/5 to all major flexion & extension muscle groups of the extremities. (Chandrakant Yeung) Lab, Micro, Other Results Laboratory Tests Test 08/11/17 06:12 White Blood Count 8.7 TH/MM3 Red Blood Count 4.42 MIL/MM3 Hemoglobin 12.3 GM/DL Hematocrit 37.2 % Mean Corpuscular Volume 84.1 FL Mean Corpuscular Hemoglobin 27.8 PG Mean Corpuscular Hemoglobin Concent 33.1 % Red Cell Distribution Width 13.4 % Platelet Count 274 TH/MM3 Mean Platelet Volume 8.5 FL Blood Urea Nitrogen 14 MG/DL Creatinine 0.80 MG/DL Random Glucose 102 MG/DL Calcium Level 8.6 MG/DL Sodium Level 141 MEQ/L Potassium Level 3.5 MEQ/L Chloride Level 108 MEQ/L Carbon Dioxide Level 23.6 MEQ/L Anion Gap 9 MEQ/L Estimat Glomerular Filtration Rate 83 ML/MIN (Chandrakant Yeung) Medical Decision Making Impression and Plan Impression: History of pseudotumor cerebri. Benign intracranial hypertension Her most recent lumbar puncture opening pressure was 20. Persistent visual field loss Patient doing well today and is neurologically stable. Plan: Primary management per Hospitalist. Regular diet. NPO except for meds after midnight. OR for surgery on . (Chandrakant Yeung) Attending Statement The exam, history, and the medical decision-making described in the above note were completed with the assistance of the mid-level provider. I reviewed and agree with the findings presented. I attest that I had a [id number] encounter with the patient on the same day, and personally performed and documented my assessment and findings in the medical record. No change in exam versus past 2-3 wekks. MAHENDRA patient. For OR in AM (Mamadou Cerrato MD) Chandrakant Yeung Aug 11, 2017 17:13 Mamadou Cerrato MD Aug 11, 2017 23:45
[2017-08-12] VITALS: BP_SYST 109; BP_SYST 117; BP_DIAS 55; BP_DIAS 75; PULSE 74; PULSE 75; RESP 18; RESP 20; TEMP 97.9; O2SAT 100; O2SAT 97
[2017-08-12] MEDS: oxyCODONE/ACETAMINOPHEN 10 MG/325 MG TAB PO PRN ×2 (00:06→08:28)
[2017-08-12] MEDS: MORPHINE SULFATE 4 MG/ML INJ IV PUSH PRN ×4 (01:46→22:54)
[2017-08-12 04:00] VITALS: BP 137/87; PULSE 90; RESP 18; TEMP 97.8; O2SAT 96
[2017-08-12 08:00] VITALS: BP 97/51; PULSE 56; RESP 20; TEMP 98.1; O2SAT 96
[2017-08-12] MEDS: acetaZOLAMIDE SEQUELS 500 MG SUSTAINED RELEASE CAP PO SCH ×2 (08:27→12:24)
[2017-08-12] MEDS: FUROSEMIDE 40 MG TAB PO SCH ×2 (08:27→21:45)
[2017-08-12] MEDS: TOPIRAMATE 100 MG TAB PO SCH ×2 (08:28→21:45)
[2017-08-12] MEDS: SODIUM CHLORIDE 0.9% FLUSH 10 ML FLUSH IV FLUSH SCH ×2 (08:28→21:00)
[2017-08-12] MEDS: ONDANSETRON HCL 4 MG/2 ML VIAL IVP PRN (10:08)
--- NOTE | 2017-08-12 10:57 | HHI.PR ---
Subjective Remarks Follow-up pseudotumor cerebri August 11, 2017-patient seen and examined, still complains of headaches, dizziness and visual disturbances. Also complaint of nausea without any emesis. Currently n.p.o. August 12, 2017-patient seen and examined, still with visual field loss. Currently n.p.o. Objective Vitals Vital Signs Date Time Temp Pulse Resp B/P (MAP) Pulse Ox O2 Delivery O2 Flow Rate FiO2 08/12/17 08:00 98.1 56 20 97/51 (66) 96 08/12/17 04:00 97.8 90 18 137/87 (104) 96 08/12/17 00:00 97.9 75 18 117/55 (75) 97 08/12/17 00:00 97.9 74 20 109/75 (86) 100 08/11/17 15:48 97.9 62 20 116/71 (86) 100 08/11/17 12:15 98.5 67 20 114/89 (97) 98 I/O 08/11/17 08/11/17 08/11/17 08/12/17 08/12/17 08/12/17 07:00 15:00 23:00 07:00 15:00 23:00 Intake Total 500 ml Balance 500 ml Intake Oral 500 ml # Voids 2 8 Result Diagram: 08/11/1761108/11/17611 Objective Remarks GENERAL: NAD SKIN: Warm and dry. HEAD: Normocephalic. EYES: No scleral icterus. No injection or drainage. NECK: Supple, trachea midline. No JVD or lymphadenopathy. CARDIOVASCULAR: Regular rate and rhythm without murmurs, gallops, or rubs. RESPIRATORY: Breath sounds equal bilaterally. No accessory muscle use. GASTROINTESTINAL: Abdomen soft, non-tender, nondistended. MUSCULOSKELETAL: No cyanosis, or edema. BACK: Nontender without obvious deformity. No CVA tenderness. A/P Problem List: (1) Pseudotumor cerebri ICD Code: G93.2 - Benign intracranial hypertension Status: Chronic (2) History of idiopathic intracranial hypertension ICD Code: Z86.69 - Personal history of other diseases of the nervous system and sense organs Status: Acute Assessment and Plan 32-year-old female with Pseudotumor cerebri with visual changes S/P LP (08/06/17) -Neurosurgery consulted, appreciate assistance -LP cultures NGTD, -Continue Diamox, Lasix and Topamax -continue with pain control. -Plan for lumbar shunt placement today 08/12/17. Blurred vision -Patient was seen previously by Dr. Arndt, commission agent livestock last April, with recommendations to continue with follow up. -Per notes patient has no signs of papilla edema. Visual field showed extreme constricted vision in her periphery. This could be sign of significant nerve damage in the past, though she did have a large number of false negatives , falling asleep during test so unclear how valid this test is, though it is certainly striking. Patient had the repeat exam in a few months but never showed up in the office. -Complains of increasing left eye vision blurriness. -Dr. Dash's report came back. Note stated decrease VA/peripheral vision possibly related to increased ICP. No mention of papilledema. Pain seeking behavior -Patient has visited the ED >8x in the past months, reporting pain but has not been following up with specialists -Counselled. Compliant. DVT Prop ambulation Nemesio Darden MD Aug 12, 2017 10:57
[2017-08-12 12:00] VITALS: BP 110/63; PULSE 70; RESP 20; TEMP 98.1; O2SAT 96
[2017-08-12] MEDS ORDERED: PHENYLEPH/NS 1000 MCG/10 ML SYR IV ONE (12:00)
[2017-08-12] MEDS ORDERED: LIDOCAINE HCL 1% PF 5 ML SYRINGE OTHER ONE (12:00)
[2017-08-12] MEDS ORDERED: DEXAMETHASONE SOD PHOS 4 MG/ML VIAL IV ONE (12:00)
[2017-08-12] MEDS ORDERED: PROPOFOL 200 MG/20 ML AMP IV ONE (12:00)
[2017-08-12] MEDS ORDERED: LIDOCAINE 1%/EPINEPHrine 1:100,000 SOLN 30 ML VIAL ONE (12:00)
[2017-08-12] MEDS ORDERED: ONDANSETRON HCL 4 MG/2 ML VIAL IV ONE (12:00)
[2017-08-12] MEDS ORDERED: ePHEDrine/NS 25 MG/5 ML SYRINGE IV ONE (12:00)
[2017-08-12] MEDS ORDERED: ROCURONIUM INJ 50 MG/5 ML SYRINGE IV PUSH ONE (12:00)
[2017-08-12] MEDS ORDERED: GENTAMICIN SULFATE 80 MG/2 ML VIAL ONE ×2 (12:01→12:34)
[2017-08-12] MEDS ORDERED: GELFOAM SIZE 100 ONE (12:01)
[2017-08-12] MEDS ORDERED: THROMBIN (TOPICAL) 5,000 UNIT VIAL ONE (12:01)
[2017-08-12] MEDS ORDERED: CLINDAMYCIN PHOS 600 MG/4 ML VIAL ONE (13:10)
[2017-08-12] MEDS ORDERED: MAGNESIUM CITRATE SOLN 300 ML BTL PO ONE (13:30)
[2017-08-12] MEDS ORDERED: DO NOT ADM ANY ANTICOAGULANT DRUGS PRN (18:53)
[2017-08-12] MEDS ORDERED: HYDROmorphone HCL PF 0.5 MG/0.5 ML SYRINGE ONE ×2 (18:54→18:57)
[2017-08-12] MEDS ORDERED: MORPHINE SULFATE 4 MG/ML INJ ONE (19:08)
[2017-08-12] MEDS ORDERED: MIDAZOLAM HCL 2 MG/2 ML VIAL ONE (19:08)
[2017-08-12] MEDS ORDERED: *morphine SULFATE 4 MG/ML PERIprocedure ONLY ONE ×3 (19:19→20:56)
--- NOTE | 2017-08-12 20:12 | RADRPT ---
EXAM DATE/TIME: 08/12/2017 15:20 COMPARISON: No previous studies available for comparison. INDICATIONS : Lumbar peritoneal shunt placement. MEDICAL HISTORY : Hypertension. Smoker. Asthma. SURGICAL HISTORY : Hysterectomy. section. Cholecystectomy. ENCOUNTER: Initial ACUITY: 1 day PAIN SCORE: Non-responsive. LOCATION: Lumbar spine. CONCLUSION: Fluoroscopic images of the lower thoracic spine during shunt placement. Nemesio Mcginnis MD on August 12, 2017 at 20:10 Board Certified Radiologist. This report was verified electronically.
[2017-08-12] MEDS: NS + KCL 20 MEQ INJ 1,000 ML IV SCH (20:31)
[2017-08-12] MEDS ORDERED: ACETAMINOPHEN/HYDROcodone 325 MG/10 MG TAB PO PRN ×2 (20:45)
[2017-08-12] MEDS ORDERED: ACETAMINOPHEN 325 MG TAB PO PRN (20:45)
[2017-08-12] MEDS ORDERED: MORPHINE SULFATE 2 MG/ML SYRINGE IV PUSH PRN (21:00)
[2017-08-12] MEDS ORDERED: DOCUSATE SODIUM 50 MG/SENNA 8.6 MG TAB PO SCH (21:00)
--- NOTE | 2017-08-12 21:25 | PD.OP ---
cc: Damien Morrison MD Operative Report Date of Surgery: Aug 12, 2017 Preoperative Diagnosis: (1) Pseudotumor cerebri Pseudotumor cerebri Postoperative Diagnosis: (1) Pseudotumor cerebri Pseudotumor cerebri Procedure: Lumboperitoneal shunt placement Anesthesia: General Surgeon: Mamadou Morrison Odd Shoe Examiner(s): Yves Martini Operation and Findings: The patient was brought into the operating room and general endotracheal anesthesia induced without difficulty. Ochoa catheter was placed MEME hose and sequential compression devices were in place For the initial part of the procedure, the patient was placed in prone position on the 3080 table on gel cushions and all extremities appropriately padded. The lumbar region and right flank were prepped and draped in a sterile fashion Appropriate timeout procedure was performed with all personnel present and in agreement 1 percent Xylocaine with epinephrine was used for local infiltration at the incision site which was made initially at the midline L4-5 level and carried sharply down to the lumbodorsal fascia. The Touhy needle was placed under x-ray guidance at the L3-4 interlaminar space and advanced into the subarachnoid space without difficulty. Good return of clear colorless cerebrospinal fluid was obtained. The lumbar subarachnoid catheter with the guidewire in place was flushed with saline irrigation and passed through the needle up to the T10 level under fluoroscopic guidance. The catheter wire was withdrawn and the Silastic anchor used to secure the catheter to the lumbar fascia. The shunt passer was then used to tunnel the catheter to the right lateral flank via a small flank incision. The lumbar incision was closed with 2-0 Vicryl interrupted for the superficial fascia, 3-0 Vicryl subcutaneous closure and 4-0 Vicryl running subcuticular closure. The the flank incision was temporarily closed with 3-0 Vicryl subcutaneous and ayden for the skin closure. A dressing of sterile Mastisol, Steri-Strips, and a bactericidal dressing was placed. The patient was repositioned in supine position on the 3080 table and the right flank and abdominal and lower chest region prepped and draped in a sterile fashion. 1% Xylocaine with epinephrine was used for local infiltration over the abdominal incision site which was made just at the medial border of the right costal margin and carried sharply down to the fascia which was incised transversely revealing the underlying muscle fibers which were split using the hemostat revealing the peritoneum which was grasped with mosquito forceps and incised with the Metzenbaum scissors. The peritoneal cavity was entered. Dr. Morrison assisted with the abdominal exposure and dissection with the abdominal cavity freely entered with a Yuma 3 dissector which was used to help guide a peritoneal catheter in place. The unified [employer] adjustable valve with the attached peritoneal catheter assembly was utilized, with the peritoneal catheter precut to approximately 15 cm intraperitoneal length. The valve was properly flushed with fluid prior to placement. The valve was preset to 120 mm water pressure. This was checked with preoperative x-ray imaging. The valve with the Silastic ring was secured to the lower costal margin with 3- 0 Vicryl suture to allow access for valve adjustment. The right flank incision was reopened and the shunt passer utilized to bring the lumbar catheter to the anterior abdominal incision where it was connected to the proximal port of the valve assembly with 2-0 silk ties. Prior to attachment of the lumbar catheter to the valve, there was noted to be good spontaneous flow of cerebrospinal fluid through the catheter. The incisions were well irrigated with antibiotic irrigation. The incisions were closed with 4-0 Nurolon for the abdominal peritoneal pursestring suture, 3-0 Vicryl for the abdominal muscle fascia and for the abdominal and flank incision subcutaneous closure with 4-0 Vicryl for the subcuticular closure on both incision sites. Dressing of sterile Mastisol, Primapore, and a bactericidal dressing was placed. The patient was taken to recovery room in stable condition. All counts are correct at the end of the case. CSF was sent for routine specimen. Estimated blood loss was 15 cc. Mamadou Cerrato MD Aug 12, 2017 21:25
[2017-08-12] MEDS: ceFAZolin 2 GM PREMIX 50 ML IV SCH (21:45)
[2017-08-12] MEDS: DIAZEPAM 5 MG TAB PO PRN (21:45)
[2017-08-12] MEDS: DOCUSATE SODIUM 100 MG CAP PO SCH (21:45)
[2017-08-12 21:51] VITALS: BP 128/68; PULSE 118; RESP 20; TEMP 97.9; O2SAT 98
[2017-08-13] MEDS: MORPHINE SULFATE 4 MG/ML INJ IV PUSH PRN ×9 (00:55→23:20)
[2017-08-13 05:00] VITALS: BP 125/69; PULSE 105; RESP 19; TEMP 98.1; O2SAT 98
[2017-08-13] MEDS: NS + KCL 20 MEQ INJ 1,000 ML IV SCH ×3 (06:03→16:40)
[2017-08-13] MEDS: ceFAZolin 2 GM PREMIX 50 ML IV SCH ×2 (06:03→14:09)
--- NOTE | 2017-08-13 08:37 | MB ---
cc: Damien Morrison MD DATE: 08/12/2017 REASON FOR CONSULTATION: Intraoperative consultation for Dr. Mamadou Cerrato for peritoneal insertion of a lumbar peritoneal drain. HISTORY OF PRESENT ILLNESS: The patient is a 32-year-old female with a pseudotumor cerebri, requiring placement of a lumbar peritoneal drain. Please see Dr. Mamadou Cerrato's dictation for this portion of the procedure. DESCRIPTION: Dr. Cerrato was having difficulty inserting the peritoneal portion of the drain and undersigned scrubbed in for this part of the procedure. Dr. Cerrato had already placed a pursestring suture and preperitoneal fat was to allow for placement of the catheter. The catheter was advanced into the peritoneal cavity and fluoroscopy revealed the catheter to be over the liver. At this point, the undersigned scrubbed out and Dr. Cerrato cinched down the pursestring suture and completed the procedure. The patient tolerated the procedure well. MD MILA Mann/JIMENA , 11:04 PM , 11:36 PM
[2017-08-13 08:40] VITALS: BP 109/66; PULSE 69; RESP 20; TEMP 98.2; O2SAT 98
[2017-08-13] MEDS: SODIUM CHLORIDE 0.9% FLUSH 10 ML FLUSH IV FLUSH SCH ×2 (09:00→21:19)
[2017-08-13] MEDS: DOCUSATE SODIUM 100 MG CAP PO SCH ×2 (10:16→21:18)
[2017-08-13] MEDS: PANTOPRAZOLE SOD 40 MG DELAYED RELEASE TAB PO SCH (10:16)
[2017-08-13] MEDS: TOPIRAMATE 100 MG TAB PO SCH ×2 (10:17→21:18)
[2017-08-13] MEDS: FUROSEMIDE 40 MG TAB PO SCH ×2 (10:17→21:19)
[2017-08-13] MEDS: acetaZOLAMIDE SEQUELS 500 MG SUSTAINED RELEASE CAP PO SCH ×3 (10:18→18:26)
[2017-08-13 12:05] VITALS: BP 127/68; PULSE 67; RESP 20; TEMP 98.7; O2SAT 100
--- NOTE | 2017-08-13 15:20 | HHI.PR ---
Subjective Remarks Complaining of pain in the right side of the abdomen at the surgical site No fever no nausea or vomiting, sitting on her chair, however she stated her headache pressure is much better Objective Vitals Vital Signs Date Time Temp Pulse Resp B/P (MAP) Pulse Ox O2 Delivery O2 Flow Rate FiO2 08/13/17 12:05 98.7 67 20 127/68 (87) 100 08/13/17 08:40 98.2 69 20 109/66 (80) 98 08/13/17 05:00 98.1 105 19 125/69 (87) 98 08/12/17 21:51 97.9 118 20 128/68 (88) 98 08/12/17 21:00 97.7 116 16 119/68 (85) 97 Nasal Cannula 2 08/12/17 19:15 113 12 127/59 (81) 92 Nasal Cannula 2 08/12/17 19:00 97.7 111 16 127/60 (82) 93 Nasal Cannula 3 I/O 08/12/17 08/12/17 08/12/17 08/13/17 08/13/17 08/13/17 07:00 15:00 23:00 07:00 15:00 23:00 Intake Total 2600 ml 1950 ml Output Total 905 ml 1750 ml 1425 ml Balance 1695 ml 200 ml -1425 ml Intake Oral 200 ml 1000 ml IV Total 950 ml Other 2400 ml Output Urine Total 890 ml 1750 ml 1425 ml Estimated Blood Loss 15 ml # Voids 8 1 # Bowel Movements 0 0 Result Diagram: 08/11/1761108/11/17611 Objective Remarks GENERAL: This is a well-nourished, well-developed patient, in no apparent distress. SKIN: No rashes, warm and dry HEAD: Atraumatic. Normocephalic. EYES: Pupils equal round and reactive. Extraocular motions intact. No scleral icterus. ENT: Nose without bleeding, or drainage, Airway patent. NECK: Trachea midline. Supple CARDIOVASCULAR: Regular rate and rhythm without murmurs, gallops, or rubs. RESPIRATORY: Fair air entry bilaterally. No wheezes, rales, or rhonchi. GASTROINTESTINAL: Abdomen soft, non-tender, nondistended. Positive bowel sounds MUSCULOSKELETAL: Extremities without clubbing, cyanosis, or edema. Pedal pulses appreciated NEUROLOGICAL: Awake and alert. Moves all extremity. Normal speech.no focal neurological deficit A/P Problem List: (1) Pseudotumor cerebri ICD Code: G93.2 - Benign intracranial hypertension Status: Chronic (2) History of idiopathic intracranial hypertension ICD Code: Z86.69 - Personal history of other diseases of the nervous system and sense organs Status: Acute Assessment and Plan 32-year-old female with Pseudotumor cerebri with visual changes S/P LP (08/06/17) -Neurosurgery consulted, appreciate assistance -LP cultures NGTD, -Continue Diamox, Lasix and Topamax -continue with pain control. -Status post lumbar shunt placement 08/12/17. General surgery consulted to help with the peritoneal insertion Continue monitoring with neurosurgery, PT Blurred vision -Patient was seen previously by Dr. Arndt, binding stitcher last April, with recommendations to continue with follow up. -Per notes patient has no signs of papilla edema. Visual field showed extreme constricted vision in her periphery. This could be sign of significant nerve damage in the past, though she did have a large number of false negatives , falling asleep during test so unclear how valid this test is, though it is certainly striking. Patient had the repeat exam in a few months but never showed up in the office. -Complains of increasing left eye vision blurriness. -Dr. Dash's report came back. Note stated decrease VA/peripheral vision possibly related to increased ICP. No mention of papilledema. Pain seeking behavior -Patient has visited the ED >8x in the past months, reporting pain but has not been following up with specialists -Counselled. Compliant. DVT Prop ambulation Shefali Ventura MD Aug 13, 2017 15:20
[2017-08-13] MEDS: ONDANSETRON HCL 4 MG/2 ML VIAL IV PUSH PRN (15:51)
[2017-08-13 15:58] VITALS: BP 142/64; PULSE 70; RESP 20; TEMP 99; O2SAT 100
[2017-08-13 17:25] VITALS: O2SAT 100
--- NOTE | 2017-08-13 17:28 | HHI.NSPN ---
(Chandrakant Yeung) History Chief Complaint: Pain to the right side. (Chandrakant Yeung) Interval History 08/08: Ms. Mayberry is a 32-year-old female with history of chronic headaches, visual disturbance. He has had extensive medical evaluation in the past including multiple imaging studies, multiple hospital and emergency room visits , multiple lumbar punctures, neurology, neurosurgery and ophthalmology evaluations. Previously seen in [place] for neurosurgery evaluation, more recently by as well as during her last hospital visit the undersigned. She complains of significant blurred vision and restriction of visual hyatt on a relatively chronic basis. During her most recent visit, attempts were made to obtain these records without success. During this visit previous records have been again requested. Review of a note from last year from Dr. Arndt medicates a single visit with no evidence of papilledema, follow-up scheduled but patient did not attend that appointment. Another evaluation more recently from Dr. Randolph indicates constriction of visual hyatt, apparently confrontation testing, 08/11: The patient was to go to the operating room this afternoon for a lumboperitoneal shunt. Unfortunately due to an emergency she was postponed until tomorrow. When seen the patient was ambulating the hallway with assistance from the staff. She had no complaints and she remains neurologically stable. 08/12: The patient went to the operating room for placement of a lumboperitoneal shunt in the afternoon. Post-operatively she returned to the med /surg floor for further care and monitoring. 08/13: The patient is awake and talking on her cellphone when seen. She states that she has pain to the right side where she had surgery. She has no headache and states that the vision to her left eye is better. No evident sensorimotor deficits to the extremities although testing is very limited due to pain. (Chandrakant Yeung) Exam Results 08/11/17 08/11/17 08/12/17 08/12/17 08/13/17 08/13/17 06:00 18:00 06:00 18:00 06:00 18:00 Intake Total 200 ml 300 ml 4550 ml 820 ml Output Total 2105 ml 3250 ml Balance 200 ml 300 ml 2445 ml -2430 ml Intake Oral 200 ml 300 ml 1200 ml 720 ml IV Total 950 ml 100 ml Other 2400 ml Output Urine Total 2090 ml 3250 ml Estimated Blood Loss 15 ml # Voids 2 8 1 # Bowel Movements 0 0 Vital Signs Date Time Temp Pulse Resp B/P (MAP) Pulse Ox O2 Delivery O2 Flow Rate FiO2 08/13/17 15:58 99.0 70 20 142/64 (90) 100 08/13/17 12:05 98.7 67 20 127/68 (87) 100 08/13/17 08:40 98.2 69 20 109/66 (80) 98 08/13/17 05:00 98.1 105 19 125/69 (87) 98 08/12/17 21:51 97.9 118 20 128/68 (88) 98 08/12/17 21:00 97.7 116 16 119/68 (85) 97 Nasal Cannula 2 08/12/17 19:15 113 12 127/59 (81) 92 Nasal Cannula 2 08/12/17 19:00 97.7 111 16 127/60 (82) 93 Nasal Cannula 3 08/12/17 12:00 98.1 70 20 110/63 (79) 96 08/12/17 08:00 98.1 56 20 97/51 (66) 96 08/12/17 04:00 97.8 90 18 137/87 (104) 96 08/12/17 00:00 97.9 75 18 117/55 (75) 97 08/12/17 00:00 97.9 74 20 109/75 (86) 100 08/11/17 15:48 97.9 62 20 116/71 (86) 100 08/11/17 12:15 98.5 67 20 114/89 (97) 98 08/11/17 08:00 97.9 61 20 108/60 (76) 97 08/11/17 06:38 18 08/11/17 04:12 98.1 69 18 103/67 (79) 97 08/11/17 01:10 98.4 67 18 117/61 (79) 94 08/10/17 22:46 18 08/10/17 22:06 98.6 68 18 119/59 (79) 92 (Chandrakant Yeung) Physical Examination GENERAL: Awake & alert in bed talking on her cellphone. Normal affect. Readily interacts. No apparent distress. HEENT: Normocephalic, atraumatic. Patient with improved distance focusing on fingers L>R and w/improved peripheral vision on left, minimal on right. MUSCULOSKELETAL: Moves all extremities but guarding w/RUE and keeping knees bent to relieve tension to abdominal wall & ribs. No evident clubbing or deformity. NEUROLOGICAL: AAOx3. Speech clear & appropriate. Follows simple commands w/o difficulty. Patient with improved distance focusing on fingers L>R and w/improved peripheral vision on left, minimal on right. Sensation intact to light touch to all extremities. Motor strength appears normal but limited testing due to patient not wanting to participate due to pain. Guarding w/RUE and keeping knees bent to relieve tension to abdominal wall & ribs. (Chandrakant Yeung) Lab, Micro, Other Results Recent Impressions Lumbar Spine X-Ray 08/12/17 0000 Signed Impressions: Service Date/Time: Saturday, August 12, 2017 15:20 - CONCLUSION: Fluoroscopic images of the lower thoracic spine during shunt placement. Nemesio Mcginnis MD Laboratory Tests Test 08/11/17 06:12 White Blood Count 8.7 TH/MM3 Red Blood Count 4.42 MIL/MM3 Hemoglobin 12.3 GM/DL Hematocrit 37.2 % Mean Corpuscular Volume 84.1 FL Mean Corpuscular Hemoglobin 27.8 PG Mean Corpuscular Hemoglobin Concent 33.1 % Red Cell Distribution Width 13.4 % Platelet Count 274 TH/MM3 Mean Platelet Volume 8.5 FL Blood Urea Nitrogen 14 MG/DL Creatinine 0.80 MG/DL Random Glucose 102 MG/DL Calcium Level 8.6 MG/DL Sodium Level 141 MEQ/L Potassium Level 3.5 MEQ/L Chloride Level 108 MEQ/L Carbon Dioxide Level 23.6 MEQ/L Anion Gap 9 MEQ/L Estimat Glomerular Filtration Rate 83 ML/MIN (Chandrakant Yeung) Medical Decision Making Impression and Plan Impression: History of pseudotumor cerebri. Benign intracranial hypertension Her most recent lumbar puncture opening pressure was 20. Persistent visual field loss Postoperative Diagnosis: (1) Pseudotumor cerebri Pseudotumor cerebri Patient is doing fairly well but her pain is not well controlled. She has not had any further headache since surgery and she does say that her vision on the left is better. Tachycardia yesterday evening. CSF culture w/no organisms seen & rare WBC on Gram stain, no growth x1d, preliminary. POD #1 () s/p: Lumboperitoneal shunt placement Plan: Primary management per Hospitalist. Neuro checks. Brace when OOB. Mobilise patient w/assistance. Physical Therapy eval & tx. (Chandrakant Yeung) Attending Statement The exam, history, and the medical decision-making described in the above note were completed with the assistance of the mid-level provider. I reviewed and agree with the findings presented. I attest that I had a [id number] encounter with the patient on the same day, and personally performed and documented my assessment and findings in the medical record. Her headache seems a little better today. Abdomen soft, tenderness at the incision site only. No nausea or emesis. No definite change in visual hyatt on exam although the patient feels her left vision is a little better. Continue to monitor pain medication, mobilize out of bed as tolerated. (Mamadou Cerrato MD) Chandrakant Yeung Aug 13, 2017 17:28 Mamadou Cerrato MD Aug 13, 2017 20:26
[2017-08-13 20:00] VITALS: BP 131/65; PULSE 74; RESP 22; TEMP 98.9; O2SAT 98
[2017-08-13] MEDS: DIAZEPAM 5 MG TAB PO PRN (23:20)
[2017-08-14] VITALS: BP 107/61; PULSE 69; RESP 17; TEMP 98.2; O2SAT 98
[2017-08-14] MEDS: MORPHINE SULFATE 4 MG/ML INJ IV PUSH PRN ×10 (01:54→22:38)
[2017-08-14] MEDS: NS + KCL 20 MEQ INJ 1,000 ML IV SCH ×2 (01:55→12:53)
[2017-08-14 06:35] VITALS: BP 123/66; PULSE 74; RESP 18; TEMP 99.1; O2SAT 97
[2017-08-14 08:04] VITALS: BP 126/60; PULSE 73; RESP 18; TEMP 98.5; O2SAT 97
[2017-08-14] MEDS: PANTOPRAZOLE SOD 40 MG DELAYED RELEASE TAB PO SCH (08:37)
[2017-08-14] MEDS: acetaZOLAMIDE SEQUELS 500 MG SUSTAINED RELEASE CAP PO SCH ×3 (08:37→17:49)
[2017-08-14] MEDS: TOPIRAMATE 100 MG TAB PO SCH ×2 (08:37→20:06)
[2017-08-14] MEDS: FUROSEMIDE 40 MG TAB PO SCH ×2 (08:37→20:08)
[2017-08-14] MEDS: SODIUM CHLORIDE 0.9% FLUSH 10 ML FLUSH IV FLUSH SCH ×2 (08:38→20:08)
[2017-08-14] MEDS: DOCUSATE SODIUM 100 MG CAP PO SCH ×2 (08:38→20:07)
[2017-08-14 11:39] VITALS: BP 123/68; PULSE 84; RESP 20; TEMP 99.5; O2SAT 97
[2017-08-14 16:34] VITALS: BP 121/72; PULSE 81; RESP 18; TEMP 100.7; O2SAT 98
--- NOTE | 2017-08-14 17:02 | HHI.NSPN ---
(Colin Yeungsilvano Hugo [employer]) History Chief Complaint: Pain to the right side. (Chandrakant YeungCheryl [employer]) Interval History 08/08: Ms. Mayberry is a 32-year-old female with history of chronic headaches, visual disturbance. He has had extensive medical evaluation in the past including multiple imaging studies, multiple hospital and emergency room visits , multiple lumbar punctures, neurology, neurosurgery and ophthalmology evaluations. Previously seen in [place] for neurosurgery evaluation, more recently by as well as during her last hospital visit the undersigned. She complains of significant blurred vision and restriction of visual hyatt on a relatively chronic basis. During her most recent visit, attempts were made to obtain these records without success. During this visit previous records have been again requested. Review of a note from last year from Dr. Arndt medicates a single visit with no evidence of papilledema, follow-up scheduled but patient did not attend that appointment. Another evaluation more recently from Dr. Randolph indicates constriction of visual hyatt, apparently confrontation testing, 08/11: The patient was to go to the operating room this afternoon for a lumboperitoneal shunt. Unfortunately due to an emergency she was postponed until tomorrow. When seen the patient was ambulating the hallway with assistance from the staff. She had no complaints and she remains neurologically stable. 08/12: The patient went to the operating room for placement of a lumboperitoneal shunt in the afternoon. Post-operatively she returned to the med /surg floor for further care and monitoring. 08/13: The patient is awake and talking on her cellphone when seen. She states that she has pain to the right side where she had surgery. She has no headache and states that the vision to her left eye is better. No evident sensorimotor deficits to the extremities although testing is very limited due to pain. 08/14: Nursing reports that the patient is complaining of a headache prior to her being seen this afternoon. When seen the patient is awake in bed. She reports having a low pressure headache. She does say that the right eye is slightly blurrier than yesterday. She continues to have the pain at the surgical incisions and somewhat diffusely to the abdomen. When doing muscle testing the patient continues to not fully participate because she is in pain. (Chandrakant Yeung) Exam Results 08/12/17 08/12/17 08/13/17 08/13/17 08/14/17 08/14/17 06:00 18:00 06:00 18:00 06:00 18:00 Intake Total 4550 ml 820 ml 987 ml 600 ml Output Total 2105 ml 3250 ml 2750 ml 1950 ml Balance 2445 ml -2430 ml -1763 ml -1350 ml Intake Oral 1200 ml 720 ml 600 ml IV Total 950 ml 100 ml 987 ml Other 2400 ml Output Urine Total 2090 ml 3250 ml 2750 ml 1950 ml Estimated Blood Loss 15 ml # Voids 8 1 # Bowel Movements 0 0 0 Vital Signs Date Time Temp Pulse Resp B/P (MAP) Pulse Ox O2 Delivery O2 Flow Rate FiO2 08/14/17 16:34 100.7 81 18 121/72 (88) 98 08/14/17 11:39 99.5 84 20 123/68 (86) 97 08/14/17 08:04 98.5 73 18 126/60 (82) 97 08/14/17 06:35 99.1 74 18 123/66 (85) 97 08/14/17 00:00 98.2 69 17 107/61 (76) 98 08/13/17 20:00 98.9 74 22 131/65 (87) 98 08/13/17 17:25 100 Nasal Cannula 2.00 08/13/17 15:58 99.0 70 20 142/64 (90) 100 08/13/17 12:05 98.7 67 20 127/68 (87) 100 08/13/17 08:40 98.2 69 20 109/66 (80) 98 08/13/17 05:00 98.1 105 19 125/69 (87) 98 08/12/17 21:51 97.9 118 20 128/68 (88) 98 08/12/17 21:00 97.7 116 16 119/68 (85) 97 Nasal Cannula 2 08/12/17 19:15 113 12 127/59 (81) 92 Nasal Cannula 2 08/12/17 19:00 97.7 111 16 127/60 (82) 93 Nasal Cannula 3 08/12/17 12:00 98.1 70 20 110/63 (79) 96 08/12/17 08:00 98.1 56 20 97/51 (66) 96 08/12/17 04:00 97.8 90 18 137/87 (104) 96 08/12/17 00:00 97.9 75 18 117/55 (75) 97 08/12/17 00:00 97.9 74 20 109/75 (86) 100 (Chandrakant Yeung) Physical Examination GENERAL: Awake & alert in bed. Normal somewhat flat. Readily interacts. Appears moderately uncomfortable but not in any apparent distress. HEENT: Normocephalic, atraumatic. No evident change to visual field testing from yesterday but patient not completely opening eyes for evaluation. MUSCULOSKELETAL: Moves all extremities but continues to guard w/RUE and keeping right knee bent to relieve tension to abdominal wall & ribs. Extremely TTP to the epigastric incision and moderately TTP at the right lateral abdominal wall incision, mildly tender between and the abdomen is minimally to mildly TTP. No evident clubbing or deformity of the extremities noted. NEUROLOGICAL: AAOx3. Speech clear & appropriate. Follows simple commands w/o difficulty. No evident change to visual field testing from yesterday but patient not completely opening eyes for evaluation. Sensation intact to light touch to all extremities. Motor strength appears normal but patient not fully participating due to pain. Guarding w/RUE and right knee bent to relieve tension to abdominal wall & ribs. (Chandrakant Yeung) Lab, Micro, Other Results Recent Impressions Lumbar Spine X-Ray 08/12/17 0000 Signed Impressions: Service Date/Time: Saturday, August 12, 2017 15:20 - CONCLUSION: Fluoroscopic images of the lower thoracic spine during shunt placement. Nemesio Mcginnis MD (Chandrakant Yeung) Medical Decision Making Impression and Plan Impression: History of pseudotumor cerebri. Benign intracranial hypertension Her most recent lumbar puncture opening pressure was 20. Persistent visual field loss Postoperative Diagnosis: (1) Pseudotumor cerebri Pseudotumor cerebri Patient has a "slight low pressure headache" when seen. She reports that the vision to her right eye is slightly more blurry than yesterday. She continues to have pain to the right lateral and epigastric abdominal wall surgical incisions, with minimal to mild pain between them and diffusely to the abdomen. T max 100.7 this afternoon. CSF culture w/no organisms seen & rare WBC on Gram stain, no growth x48 hrs, preliminary. POD #2 () s/p: Lumboperitoneal shunt placement Plan: Primary management per Hospitalist. Neuro checks. No brace needed to mobilise the patient. Mobilise patient w/assistance. Physical Therapy eval & tx. (Chandrakant Yeung) Attending Statement The exam, history, and the medical decision-making described in the above note were completed with the assistance of the mid-level provider. I reviewed and agree with the findings presented. I attest that I had a [id number] encounter with the patient on the same day, and personally performed and documented my assessment and findings in the medical record. Persistent pain right costal margin. Incisions are dry and intact without erythema or drainage. Pain medications adjusted. Patient indicates that DELCID improved post op (Mamadou Cerrato MD) Chandrakant Yeung Aug 14, 2017 17:02 Mamadou Cerrato MD Aug 16, 2017 20:00
[2017-08-14] MEDS: ONDANSETRON HCL 4 MG/2 ML VIAL IV PUSH PRN (17:49)
--- NOTE | 2017-08-14 19:41 | HHI.PR ---
Subjective Remarks No fever overnight patient resting in bed still complaining of left sided abdominal pain at the insertion of the shunt site Objective Vitals Vital Signs Date Time Temp Pulse Resp B/P (MAP) Pulse Ox O2 Delivery O2 Flow Rate FiO2 08/14/17 16:34 100.7 81 18 121/72 (88) 98 08/14/17 11:39 99.5 84 20 123/68 (86) 97 08/14/17 08:04 98.5 73 18 126/60 (82) 97 08/14/17 06:35 99.1 74 18 123/66 (85) 97 08/14/17 00:00 98.2 69 17 107/61 (76) 98 08/13/17 20:00 98.9 74 22 131/65 (87) 98 I/O 08/13/17 08/13/17 08/13/17 08/14/17 08/14/17 08/14/17 07:00 15:00 23:00 07:00 15:00 23:00 Intake Total 1950 ml 820 ml 987 ml 980 ml 600 ml Output Total 1750 ml 1425 ml 1275 ml 3750 ml 650 ml 300 ml Balance 200 ml -1425 ml -455 ml -2763 ml 330 ml 300 ml Intake Oral 1000 ml 720 ml 600 ml IV Total 950 ml 100 ml 987 ml 980 ml Output Urine Total 1750 ml 1425 ml 1275 ml 3750 ml 650 ml 300 ml # Bowel Movements 0 0 0 Result Diagram: 08/11/1761108/11/17 0612 Objective Remarks GENERAL: This is a well-nourished, well-developed patient, in no apparent distress. SKIN: No rashes, warm and dry HEAD: Atraumatic. Normocephalic. EYES: Pupils equal round and reactive. Extraocular motions intact. No scleral icterus. ENT: Nose without bleeding, or drainage, Airway patent. NECK: Trachea midline. Supple CARDIOVASCULAR: Regular rate and rhythm without murmurs, gallops, or rubs. RESPIRATORY: Fair air entry bilaterally. No wheezes, rales, or rhonchi. GASTROINTESTINAL: Abdomen soft, non-tender, nondistended. Positive bowel sounds MUSCULOSKELETAL: Extremities without clubbing, cyanosis, or edema. Pedal pulses appreciated NEUROLOGICAL: Awake and alert. Moves all extremity. Normal speech.no focal neurological deficit A/P Problem List: (1) Pseudotumor cerebri ICD Code: G93.2 - Benign intracranial hypertension Status: Chronic (2) History of idiopathic intracranial hypertension ICD Code: Z86.69 - Personal history of other diseases of the nervous system and sense organs Status: Acute Assessment and Plan 32-year-old female with 08/14: Left abdominal surgical site pain, continue following with neurosurgery Pseudotumor cerebri with visual changes S/P LP (08/06/17) -Neurosurgery consulted, appreciate assistance -LP cultures NGTD, -Continue Diamox, Lasix and Topamax -continue with pain control. -Status post lumbar shunt placement 08/12/17. General surgery consulted to help with the peritoneal insertion Continue monitoring with neurosurgery, PT Blurred vision -Patient was seen previously by Dr. Arndt, federal agent last April, with recommendations to continue with follow up. -Per notes patient has no signs of papilla edema. Visual field showed extreme constricted vision in her periphery. This could be sign of significant nerve damage in the past, though she did have a large number of false negatives , falling asleep during test so unclear how valid this test is, though it is certainly striking. Patient had the repeat exam in a few months but never showed up in the office. -Complains of increasing left eye vision blurriness. -Dr. Dash's report came back. Note stated decrease VA/peripheral vision possibly related to increased ICP. No mention of papilledema. Pain seeking behavior -Patient has visited the ED >8x in the past months, reporting pain but has not been following up with specialists -Counselled. Compliant. DVT Prop ambulation Shefali Ventura MD Aug 14, 2017 19:41
--- NOTE | 2017-08-14 19:45 | HHI.PR ---
Objective Vitals Vital Signs Date Time Temp Pulse Resp B/P (MAP) Pulse Ox O2 Delivery O2 Flow Rate FiO2 08/14/17 16:34 100.7 81 18 121/72 (88) 98 08/14/17 11:39 99.5 84 20 123/68 (86) 97 08/14/17 08:04 98.5 73 18 126/60 (82) 97 08/14/17 06:35 99.1 74 18 123/66 (85) 97 08/14/17 00:00 98.2 69 17 107/61 (76) 98 08/13/17 20:00 98.9 74 22 131/65 (87) 98 I/O 08/13/17 08/13/17 08/13/17 08/14/17 08/14/17 08/14/17 07:00 15:00 23:00 07:00 15:00 23:00 Intake Total 1950 ml 820 ml 987 ml 980 ml 600 ml Output Total 1750 ml 1425 ml 1275 ml 3750 ml 650 ml 300 ml Balance 200 ml -1425 ml -455 ml -2763 ml 330 ml 300 ml Intake Oral 1000 ml 720 ml 600 ml IV Total 950 ml 100 ml 987 ml 980 ml Output Urine Total 1750 ml 1425 ml 1275 ml 3750 ml 650 ml 300 ml # Bowel Movements 0 0 0 Result Diagram: 08/11/1761108/11/17611 Objective Remarks GENERAL: This is a well-nourished, well-developed patient, in no apparent distress. SKIN: No rashes, warm and dry HEAD: Atraumatic. Normocephalic. EYES: Pupils equal round and reactive. Extraocular motions intact. No scleral icterus. ENT: Nose without bleeding, or drainage, Airway patent. NECK: Trachea midline. Supple CARDIOVASCULAR: Regular rate and rhythm without murmurs, gallops, or rubs. RESPIRATORY: Fair air entry bilaterally. No wheezes, rales, or rhonchi. GASTROINTESTINAL: Abdomen soft, non-tender, nondistended. Positive bowel sounds MUSCULOSKELETAL: Extremities without clubbing, cyanosis, or edema. Pedal pulses appreciated NEUROLOGICAL: Awake and alert. Moves all extremity. Normal speech.no focal neurological deficit A/P Problem List: (1) Pseudotumor cerebri ICD Code: G93.2 - Benign intracranial hypertension Status: Chronic (2) History of idiopathic intracranial hypertension ICD Code: Z86.69 - Personal history of other diseases of the nervous system and sense organs Status: Acute Assessment and Plan 32-year-old female with Pseudotumor cerebri with visual changes S/P LP (08/06/17) -Neurosurgery consulted, appreciate assistance -LP cultures NGTD, -Continue Diamox, Lasix and Topamax -continue with pain control. -Status post lumbar shunt placement 08/12/17. General surgery consulted to help with the peritoneal insertion Continue monitoring with neurosurgery, PT Blurred vision -Patient was seen previously by Dr. Arndt, adaptive physical education teacher last April, with recommendations to continue with follow up. -Per notes patient has no signs of papilla edema. Visual field showed extreme constricted vision in her periphery. This could be sign of significant nerve damage in the past, though she did have a large number of false negatives , falling asleep during test so unclear how valid this test is, though it is certainly striking. Patient had the repeat exam in a few months but never showed up in the office. -Complains of increasing left eye vision blurriness. -Dr. Dash's report came back. Note stated decrease VA/peripheral vision possibly related to increased ICP. No mention of papilledema. Pain seeking behavior -Patient has visited the ED >8x in the past months, reporting pain but has not been following up with specialists -Counselled. Compliant. DVT Prop ambulation Shefali Ventura MD Aug 14, 2017 19:45
[2017-08-14 20:00] VITALS: BP 111/64; PULSE 84; RESP 18; TEMP 98.8; O2SAT 96
[2017-08-14] MEDS: DIAZEPAM 5 MG TAB PO PRN (20:08)
[2017-08-14] MEDS ORDERED: NALOXONE HCL 0.4 MG/ML AMP IV PUSH PRN (21:00)
[2017-08-14] MEDS ORDERED: ACETAMINOPHEN/HYDROcodone 325 MG/5 MG TAB PO PRN (21:00)
[2017-08-14] MEDS: MORPHINE SULFATE 15 MG CONTROLLED RELEASE TAB PO SCH (22:37)
[2017-08-14] MEDS: FUROSEMIDE 20 MG TAB PO SCH (22:37)
[2017-08-15] VITALS (7 sets, daily range): BP systolic 98–160; BP diastolic 52–83; PULSE 58–80; RESP 18–20; TEMP 97.7–98.7; O2SAT 93–99
[2017-08-15] MEDS: ACETAMINOPHEN/HYDROcodone 325 MG/10 MG TAB PO PRN ×3 (00:41→14:50)
[2017-08-15] MEDS: DOCUSATE SODIUM 100 MG CAP PO SCH ×2 (08:24→20:50)
[2017-08-15] MEDS: TOPIRAMATE 100 MG TAB PO SCH ×2 (08:25→20:51)
[2017-08-15] MEDS: MORPHINE SULFATE 15 MG CONTROLLED RELEASE TAB PO SCH (08:25)
[2017-08-15] MEDS: PANTOPRAZOLE SOD 40 MG DELAYED RELEASE TAB PO SCH (08:26)
[2017-08-15] MEDS: FUROSEMIDE 20 MG TAB PO SCH ×2 (08:26→20:51)
[2017-08-15] MEDS: acetaZOLAMIDE SEQUELS 500 MG SUSTAINED RELEASE CAP PO SCH ×2 (08:27→20:50)
[2017-08-15] MEDS: SODIUM CHLORIDE 0.9% FLUSH 10 ML FLUSH IV FLUSH SCH ×2 (08:27→20:52)
--- NOTE | 2017-08-15 11:47 | HHI.NSPN ---
(Chandrakant YeungP) History Chief Complaint: Pain continues to the right abdominal wall. (AnjanaChandrakantP) Interval History 08/08: Ms. Mayberry is a 32-year-old female with history of chronic headaches, visual disturbance. He has had extensive medical evaluation in the past including multiple imaging studies, multiple hospital and emergency room visits , multiple lumbar punctures, neurology, neurosurgery and ophthalmology evaluations. Previously seen in [facility] for neurosurgery evaluation, more recently by as well as during her last hospital visit the undersigned. She complains of significant blurred vision and restriction of visual hyatt on a relatively chronic basis. During her most recent visit, attempts were made to obtain these records without success. During this visit previous records have been again requested. Review of a note from last year from Dr. Arndt medicates a single visit with no evidence of papilledema, follow-up scheduled but patient did not attend that appointment. Another evaluation more recently from Dr. Randolph indicates constriction of visual hyatt, apparently confrontation testing, 08/11: The patient was to go to the operating room this afternoon for a lumboperitoneal shunt. Unfortunately due to an emergency she was postponed until tomorrow. When seen the patient was ambulating the hallway with assistance from the staff. She had no complaints and she remains neurologically stable. 08/12: The patient went to the operating room for placement of a lumboperitoneal shunt in the afternoon. Post-operatively she returned to the med /surg floor for further care and monitoring. 08/13: The patient is awake and talking on her cellphone when seen. She states that she has pain to the right side where she had surgery. She has no headache and states that the vision to her left eye is better. No evident sensorimotor deficits to the extremities although testing is very limited due to pain. 08/14: Nursing reports that the patient is complaining of a headache prior to her being seen this afternoon. When seen the patient is awake in bed. She reports having a low pressure headache. She does say that the right eye is slightly blurrier than yesterday. She continues to have the pain at the surgical incisions and somewhat diffusely to the abdomen. When doing muscle testing the patient continues to not fully participate because she is in pain. 08/15: Patient discussed with Dr Cerrato this morning and pain medications adjusted. When seen the patient is receiving morphine for her pain. She states that the pain comes from underneath her right breast at the epigastric surgical incision and goes down the abdomen toward the flank. She does appear uncomfortable. She reports that she was dizzy when she got up with Physical Therapy earlier. She does participate in muscle testing more fully today and her muscle strength is normal. She has improved visual hyatt and says this practitioner's shirt has blue stripes in it. (Chandrakant Yeung) Exam Results 08/13/17 08/13/17 08/14/17 08/14/17 08/15/17 08/15/17 06:00 18:00 06:00 18:00 06:00 18:00 Intake Total 4550 ml 820 ml 987 ml 1580 ml Output Total 2105 ml 3250 ml 2750 ml 4350 ml 1200 ml 550 ml Balance 2445 ml -2430 ml -1763 ml -2770 ml -1200 ml -550 ml Intake Oral 1200 ml 720 ml 600 ml IV Total 950 ml 100 ml 987 ml 980 ml Other 2400 ml Output Urine Total 2090 ml 3250 ml 2750 ml 4350 ml 1200 ml 550 ml Estimated Blood Loss 15 ml # Bowel Movements 0 0 0 Vital Signs Date Time Temp Pulse Resp B/P (MAP) Pulse Ox O2 Delivery O2 Flow Rate FiO2 08/15/17 10:34 93 21 08/15/17 08:00 98.1 75 20 123/59 (80) 98 08/15/17 06:33 18 08/15/17 05:00 97.7 74 18 110/63 (79) 95 08/15/17 00:00 98.4 80 18 120/75 (90) 99 08/14/17 23:37 18 08/14/17 22:53 18 08/14/17 20:55 21 08/14/17 20:00 98.8 84 18 111/64 (80) 96 08/14/17 16:34 100.7 81 18 121/72 (88) 98 08/14/17 11:39 99.5 84 20 123/68 (86) 97 08/14/17 08:04 98.5 73 18 126/60 (82) 97 08/14/17 06:35 99.1 74 18 123/66 (85) 97 08/14/17 00:00 98.2 69 17 107/61 (76) 98 08/13/17 20:00 98.9 74 22 131/65 (87) 98 08/13/17 17:25 100 Nasal Cannula 2.00 08/13/17 15:58 99.0 70 20 142/64 (90) 100 08/13/17 12:05 98.7 67 20 127/68 (87) 100 08/13/17 08:40 98.2 69 20 109/66 (80) 98 08/13/17 05:00 98.1 105 19 125/69 (87) 98 08/12/17 21:51 97.9 118 20 128/68 (88) 98 08/12/17 21:00 97.7 116 16 119/68 (85) 97 Nasal Cannula 2 08/12/17 19:15 113 12 127/59 (81) 92 Nasal Cannula 2 08/12/17 19:00 97.7 111 16 127/60 (82) 93 Nasal Cannula 3 08/12/17 12:00 98.1 70 20 110/63 (79) 96 (Chandrakant Yeung) Physical Examination GENERAL: Awake & alert in bed. Affect somewhat flat. Readily interacts. Appears moderately uncomfortable but not in any apparent distress. HEENT: Normocephalic, atraumatic. Patient with improved visual field testing to both eyes, able to state that this practitioner's shirt has blue stripes in it. MUSCULOSKELETAL: Moves all extremities spontaneously & purposefully. No evident clubbing or deformity of the extremities noted. Extremely TTP to the epigastric incision and moderately TTP at the right lateral abdominal wall incision. Quite TTP from epigastric incision going inferiorly along the abdominal wall to the right anterolateral region. NEUROLOGICAL: AAOx3. Speech clear & appropriate. Follows simple commands w/o difficulty. Patient with improved visual field testing to both eyes, able to state that this practitioner's shirt has blue stripes in it. Sensation intact to light touch to all extremities. Motor strength 5/5 to all major flexion & extension muscle groups except weaker to wrist flexors/extensors & hand intrinsics/extrinsics. (Chandrakant Yeung) Medical Decision Making Impression and Plan Impression: History of pseudotumor cerebri. Benign intracranial hypertension Her most recent lumbar puncture opening pressure was 20. Persistent visual field loss Postoperative Diagnosis: (1) Pseudotumor cerebri Pseudotumor cerebri Patient continues to have pain control difficulty to the surgical incisions & abdominal wall. Dizziness w/standing up today. Improved visual hyatt. Muscle weakness to both wrists & hands o/w no sensorimotor deficits. T max 100.7 yesterday afternoon. CSF culture w/no growth x72 hrs, final . POD #3 () s/p: Lumboperitoneal shunt placement Plan: Primary management per Hospitalist. Neuro checks. No brace needed to mobilise the patient. Mobilise patient w/assistance. Physical Therapy eval & tx. D/c Ochoa catheter. Change MS Contin 15 mg BID to MS Contin 30 mg BID. Will start Hydromorphone 2 mg IV q2h PRN breakthrough pain. (Chandrakant Yeung) Attending Statement The exam, history, and the medical decision-making described in the above note were completed with the assistance of the mid-level provider. I reviewed and agree with the findings presented. I attest that I had a [id number] encounter with the patient on the same day, and personally performed and documented my assessment and findings in the medical record. On my examination of 08/15/2017 patient remains awake and alert. She states her vision and headaches are improved postoperatively. Visual hyatt to confrontation reveal that the patient is now able to count fingers in all quadrants bilaterally. Incisions remain dry and intact. Persistent right costal margin pain at the valve replacement site. No evidence of postoperative infection. Continue to encourage out of bed, physical therapy (Mamadou Cerrato MD) Chandrakant Yeung Aug 15, 2017 11:47 Mamadou Cerrato MD Aug 16, 2017 20:03
[2017-08-15] MEDS: MORPHINE SULFATE 4 MG/ML INJ IV PUSH PRN (11:49)
[2017-08-15] MEDS: HYDROmorphone HCL PF 2 MG/ML VIAL IV PUSH PRN ×3 (14:49→20:50)
--- NOTE | 2017-08-15 19:42 | HHI.PR ---
Subjective Remarks Patient reported first time able to stand up today However left-sided pain is still wax and wane Objective Vitals Vital Signs Date Time Temp Pulse Resp B/P (MAP) Pulse Ox O2 Delivery O2 Flow Rate FiO2 08/15/17 11:54 18 08/15/17 10:34 93 21 08/15/17 09:25 18 08/15/17 08:24 18 08/15/17 08:00 98.1 75 20 123/59 (80) 98 08/15/17 06:33 18 08/15/17 05:00 97.7 74 18 110/63 (79) 95 08/15/17 00:00 98.4 80 18 120/75 (90) 99 08/14/17 20:55 21 08/14/17 20:00 98.8 84 18 111/64 (80) 96 I/O 08/14/17 08/14/17 08/14/17 08/15/17 08/15/17 08/15/17 07:00 15:00 23:00 07:00 15:00 23:00 Intake Total 987 ml 980 ml 600 ml Output Total 3750 ml 650 ml 2700 ml 1750 ml 1100 ml Balance -2763 ml 330 ml -2100 ml -1750 ml -1100 ml Intake Oral 600 ml IV Total 987 ml 980 ml Output Urine Total 3750 ml 650 ml 2700 ml 1750 ml 1100 ml # Bowel Movements 0 Result Diagram: 08/11/1761108/11/17611 Objective Remarks GENERAL: This is a well-nourished, well-developed patient, in no apparent distress. SKIN: No rashes, warm and dry HEAD: Atraumatic. Normocephalic. EYES: Pupils equal round and reactive. Extraocular motions intact. No scleral icterus. ENT: Nose without bleeding, or drainage, Airway patent. NECK: Trachea midline. Supple CARDIOVASCULAR: Regular rate and rhythm without murmurs, gallops, or rubs. RESPIRATORY: Fair air entry bilaterally. No wheezes, rales, or rhonchi. GASTROINTESTINAL: Abdomen soft, non-tender, nondistended. Positive bowel sounds MUSCULOSKELETAL: Extremities without clubbing, cyanosis, or edema. Pedal pulses appreciated NEUROLOGICAL: Awake and alert. Moves all extremity. Normal speech.no focal neurological deficit A/P Problem List: (1) Pseudotumor cerebri ICD Code: G93.2 - Benign intracranial hypertension Status: Chronic (2) History of idiopathic intracranial hypertension ICD Code: Z86.69 - Personal history of other diseases of the nervous system and sense organs Status: Acute Assessment and Plan 32-year-old female with Pseudotumor cerebri with visual changes S/P LP (08/06/17) -Neurosurgery consulted, appreciate assistance -LP cultures NGTD, -Continue Diamox, Lasix and Topamax -continue with pain control. -Status post lumbar shunt placement 08/12/17. General surgery consulted to help with the peritoneal insertion Continue monitoring with neurosurgery, PT 08/15: First time able to stand up today, will discuss with neurosurgery about left sided abdominal pain, continue pain management Blurred vision -Patient was seen previously by Dr. Arndt, premium service representative last April, with recommendations to continue with follow up. -Per notes patient has no signs of papilla edema. Visual field showed extreme constricted vision in her periphery. This could be sign of significant nerve damage in the past, though she did have a large number of false negatives , falling asleep during test so unclear how valid this test is, though it is certainly striking. Patient had the repeat exam in a few months but never showed up in the office. -Complains of increasing left eye vision blurriness. -Dr. Dash's report came back. Note stated decrease VA/peripheral vision possibly related to increased ICP. No mention of papilledema. Pain seeking behavior -Patient has visited the ED >8x in the past months, reporting pain but has not been following up with specialists -Counselled. Compliant. DVT Prop ambulation Shefali Ventura MD Aug 15, 2017 19:42
[2017-08-15] MEDS: MORPHINE SULFATE 30 MG CONTROLLED RELEASE TAB PO SCH (20:51)
[2017-08-15] MEDS: DIAZEPAM 5 MG TAB PO PRN (20:51)
[2017-08-16] VITALS: BP 96/51; PULSE 73; RESP 18; TEMP 98.1; O2SAT 95
[2017-08-16] MEDS: HYDROmorphone HCL PF 2 MG/ML VIAL IV PUSH PRN ×6 (01:05→18:42)
[2017-08-16] MEDS: ACETAMINOPHEN/HYDROcodone 325 MG/10 MG TAB PO PRN ×5 (03:12→23:17)
[2017-08-16 08:00] VITALS: BP 102/60; PULSE 74; RESP 18; TEMP 98.4; O2SAT 95
[2017-08-16] MEDS: acetaZOLAMIDE SEQUELS 500 MG SUSTAINED RELEASE CAP PO SCH (08:18)
[2017-08-16] MEDS: TOPIRAMATE 100 MG TAB PO SCH ×2 (08:18→21:52)
[2017-08-16] MEDS: PANTOPRAZOLE SOD 40 MG DELAYED RELEASE TAB PO SCH (08:18)
[2017-08-16] MEDS: DOCUSATE SODIUM 100 MG CAP PO SCH ×2 (08:18→21:52)
[2017-08-16] MEDS: MORPHINE SULFATE 30 MG CONTROLLED RELEASE TAB PO SCH ×2 (08:19→21:52)
[2017-08-16] MEDS: FUROSEMIDE 20 MG TAB PO SCH (08:19)
[2017-08-16] MEDS: SODIUM CHLORIDE 0.9% FLUSH 10 ML FLUSH IV FLUSH SCH ×2 (08:59→21:53)
[2017-08-16 12:00] VITALS: BP_SYST 94; BP_SYST 95; BP_DIAS 59; BP_DIAS 61; PULSE 80; RESP 18; TEMP 98.1; O2SAT 98
[2017-08-16 16:00] VITALS: BP 95/52; PULSE 65; RESP 18; TEMP 98.4; O2SAT 95
[2017-08-16 17:18] VITALS: O2SAT 95
--- NOTE | 2017-08-16 18:11 | HHI.PR ---
Subjective Remarks Patient reported started feeling slightly better and her left side of the abdomen I discussed with , he reassured me in fact he is clearing patient for discharge today or tomorrow on p.o. pain medication Objective Vitals Vital Signs Date Time Temp Pulse Resp B/P (MAP) Pulse Ox O2 Delivery O2 Flow Rate FiO2 08/16/17 17:18 95 21 08/16/17 16:00 98.4 65 18 95/52 (66) 95 08/16/17 12:00 98.1 80 18 95/61 (72) 98 94/59 (71) 08/16/17 08:00 98.4 74 18 102/60 (74) 95 Manual Cuff/Auscultation 08/16/17 06:39 18 08/16/17 04:30 18 08/16/17 00:00 98.1 73 18 96/51 (66) 95 08/15/17 23:38 98.6 76 18 98 98/52 (67) 08/15/17 21:56 18 08/15/17 20:41 98.3 78 18 108/55 (72) 99 08/15/17 20:00 98.7 80 18 102/61 (75) 94 I/O 08/15/17 08/15/17 08/15/17 08/16/17 08/16/17 08/16/17 07:00 15:00 23:00 07:00 15:00 23:00 Output Total 1750 ml 1100 ml Balance -1750 ml -1100 ml Output Urine Total 1750 ml 1100 ml # Voids 1 Objective Remarks GENERAL: This is a well-nourished, well-developed patient, in no apparent distress. SKIN: No rashes, warm and dry HEAD: Atraumatic. Normocephalic. EYES: Pupils equal round and reactive. Extraocular motions intact. No scleral icterus. ENT: Nose without bleeding, or drainage, Airway patent. NECK: Trachea midline. Supple CARDIOVASCULAR: Regular rate and rhythm without murmurs, gallops, or rubs. RESPIRATORY: Fair air entry bilaterally. No wheezes, rales, or rhonchi. GASTROINTESTINAL: Abdomen soft, non-tender, nondistended. Positive bowel sounds MUSCULOSKELETAL: Extremities without clubbing, cyanosis, or edema. Pedal pulses appreciated NEUROLOGICAL: Awake and alert. Moves all extremity. Normal speech.no focal neurological deficit A/P Problem List: (1) Pseudotumor cerebri ICD Code: G93.2 - Benign intracranial hypertension Status: Chronic (2) History of idiopathic intracranial hypertension ICD Code: Z86.69 - Personal history of other diseases of the nervous system and sense organs Status: Acute Assessment and Plan 32-year-old female with Pseudotumor cerebri with visual changes S/P LP (08/06/17) -Neurosurgery consulted, appreciate assistance -LP cultures NGTD, -Continue Diamox, Lasix and Topamax -continue with pain control. -Status post lumbar shunt placement 08/12/17. General surgery consulted to help with the peritoneal insertion Continue monitoring with neurosurgery, PT 08/15: First time able to stand up today, will discuss with neurosurgery about left sided abdominal pain, continue pain management 08/16: D/W neurosurgery and with the patient, he is willing to clear her for discharge today or tomorrow on p.o. regimen pain medication, PT recommended rehab I discussed with the charge nurse will plan on DC tomorrow when rehab place is available Blurred vision -Patient was seen previously by Dr. Arndt, relay motorman last April, with recommendations to continue with follow up. -Per notes patient has no signs of papilla edema. Visual field showed extreme constricted vision in her periphery. This could be sign of significant nerve damage in the past, though she did have a large number of false negatives , falling asleep during test so unclear how valid this test is, though it is certainly striking. Patient had the repeat exam in a few months but never showed up in the office. -Complains of increasing left eye vision blurriness. -Dr. Dash's report came back. Note stated decrease VA/peripheral vision possibly related to increased ICP. No mention of papilledema. Pain seeking behavior -Patient has visited the ED >8x in the past months, reporting pain but has not been following up with specialists -Counselled. Compliant. DVT Prop ambulation Shefali Ventura MD Aug 16, 2017 18:11
--- NOTE | 2017-08-16 18:15 | HHI.DS ---
Discharge Summary Admission Date Aug 09, 2017 at 09:02 Discharge Date: Aug 18, 2017 Admitting Diagnosis Intractable headache with vision changes, h/o IIH (1) Pseudotumor cerebri ICD Code: G93.2 - Benign intracranial hypertension Status: Chronic (2) History of idiopathic intracranial hypertension ICD Code: Z86.69 - Personal history of other diseases of the nervous system and sense organs Status: Acute Procedures LP shunt Brief History - From Admission 32-year-old female with a past medical history significant for pseudotumor cerebri, neurologist is Dr. Haddad, neurosurgeon is Dr. Cerrato, presents to the emergency department for evaluation of worsening visual changes and severe headache. The patient reports she has been having visual disturbances for quite some time in the right eye which is now extending to include her left thigh. She reports the vision in her eyes is blurry and she sees everything with a specific shadowing. She states that she has increasing pain and pressure behind both eyes, left greater than right. She also reports her headache is similar to that which she has prior to requiring an LP. The patient was previously scheduled to have a shunt placed however the procedure was put on hold secondary to a cellulitis of her mid back. The patient denies any chest pain or shortness of breath. No abdominal pain. Positive nausea/ vomiting. PE at Discharge GENERAL: This is a well-nourished, well-developed patient, in no apparent distress. SKIN: No rashes, warm and dry HEAD: Atraumatic. Normocephalic. EYES: Pupils equal round and reactive. Extraocular motions intact. No scleral icterus. ENT: Nose without bleeding, or drainage, Airway patent. NECK: Trachea midline. Supple CARDIOVASCULAR: Regular rate and rhythm without murmurs, gallops, or rubs. RESPIRATORY: Fair air entry bilaterally. No wheezes, rales, or rhonchi. GASTROINTESTINAL: Abdomen soft, non-tender, nondistended. Positive bowel sounds MUSCULOSKELETAL: Extremities without clubbing, cyanosis, or edema. Pedal pulses appreciated NEUROLOGICAL: Awake and alert. Moves all extremity. Normal speech.no focal neurological deficit Hospital Course 32 years old female with history of pseudotumor cerebri with visual changes admitted for worsening symptoms, neurosurgery consulted lumboperitoneal shunt procedure was done by neurosurgery, I discussed with Dr. Waite he think patient is doing well and ready to be discharged on p.o. pain medication, PT recommended rehab, patient today started feeling better, discharge to rehab per PT recommendation [id number] encounter performed with the patient on discharge day, as well as physical exam, summary of hospitalization course and postdischarge plan has been D/W the patient. D/W nurse D/W catalytic case operator. Discharge medications reviewed and printed and signed, post discharge follow up visit with PCP and other specialist as well as Brief hospital course and discharge summary has been placed. Pt Condition on Discharge: Fair Discharge Disposition: Discharge to SNF Discharge Time: > 30 minutes Discharge Instructions DIET: Follow Instructions for: Heart Healthy Diet Activities you can perform: See Additionl Instruction Other Activity Instructions: ppt Follow up Referrals: Neurosurgery - 1 Week with Mamadou Cerrato MD New Medications: Furosemide (Furosemide) 20 Mg Tab 20 MG PO BID for dieuretic, #60 TAB Continued Medications: Meclizine (Meclizine) 25 Mg Tab 25 MG PO TID PRN for VERTIGO for 30 Days, #30 TAB 0 Refills Metoclopramide (Reglan) 10 Mg Tab 10 MG PO QID, #120 TAB 0 Refills Potassium Chloride ER (Potassium Chloride ER) 20 Meq Tab 20 MEQ PO DAILY for Electrolyte Replacement for 30 Days, #30 TAB 0 Refills Saccharomyces Boulardii (Florastor) 250 Mg Cap 250 MG PO BID for Nutritional Supplement for 28 Days, #56 CAP 0 Refills Topiramate (Topamax) 50 Mg Tab 100 MG PO BID for Control Seizures for 30 Days, #120 TAB 0 Refills Shefali Ventura MD Aug 16, 2017 18:15
--- NOTE | 2017-08-16 20:04 | HHI.NSPN ---
History Chief Complaint: Pain continues to the right abdominal wall. Interval History States that she has somewhat lesser pain at the right costal margin today. Vision and headaches continue to improve postoperative compared to preoperative. There is all quadrants bilateral Dressings intact Assisted patient out of bed today with the assistance of the nursing staff. Mild dizziness and nausea without emesis. Discussed with medicine service. Continue present pain medications Continue to decrease Lasix and Diamox Exam Results Vital Signs Date Time Temp Pulse Resp B/P (MAP) Pulse Ox O2 Delivery O2 Flow Rate FiO2 08/16/17 17:18 95 21 08/16/17 16:00 98.4 65 18 95/52 (66) 08/13/17 17:25 Nasal Cannula 2.00 Physical Examination GENERAL: Awake & alert in bed. Affect somewhat flat. Readily interacts. Appears moderately uncomfortable but not in any apparent distress. HEENT: Normocephalic, atraumatic. Patient with improved visual field testing to both eyes, able to state that this practitioner's shirt has blue stripes in it. MUSCULOSKELETAL: Moves all extremities spontaneously & purposefully. No evident clubbing or deformity of the extremities noted. Extremely TTP to the epigastric incision and moderately TTP at the right lateral abdominal wall incision. Quite TTP from epigastric incision going inferiorly along the abdominal wall to the right anterolateral region. NEUROLOGICAL: AAOx3. Speech clear & appropriate. Follows simple commands w/o difficulty. Patient with improved visual field testing to both eyes, able to state that this practitioner's shirt has blue stripes in it. Sensation intact to light touch to all extremities. Motor strength 5/5 to all major flexion & extension muscle groups except weaker to wrist flexors/extensors & hand intrinsics/extrinsics. Mamadou Cerrato MD Aug 16, 2017 20:04
[2017-08-16 23:30] VITALS: BP 111/54; PULSE 72; RESP 18; TEMP 98.1; O2SAT 98
[2017-08-17] MEDS: HYDROmorphone HCL PF 2 MG/ML VIAL IV PUSH PRN ×6 (00:36→18:58)
[2017-08-17] MEDS: SODIUM CHLORIDE 0.9% FLUSH 10 ML FLUSH IV FLUSH PRN (00:36)
[2017-08-17 01:00] VITALS: BP 115/56; PULSE 80; RESP 19; TEMP 97.9; O2SAT 98
[2017-08-17 06:00] VITALS: BP 120/59; PULSE 76; RESP 20; TEMP 98.3; O2SAT 99
[2017-08-17] MEDS: ACETAMINOPHEN/HYDROcodone 325 MG/10 MG TAB PO PRN ×4 (06:24→23:32)
[2017-08-17 07:44] VITALS: BP 107/61; PULSE 81; RESP 18; TEMP 98; O2SAT 100
[2017-08-17] MEDS: DOCUSATE SODIUM 100 MG CAP PO SCH ×2 (08:55→22:24)
[2017-08-17] MEDS: TOPIRAMATE 100 MG TAB PO SCH ×2 (08:55→22:24)
[2017-08-17] MEDS: MORPHINE SULFATE 30 MG CONTROLLED RELEASE TAB PO SCH ×2 (08:58→22:25)
[2017-08-17] MEDS ORDERED: FUROSEMIDE 20 MG TAB PO SCH (09:00)
[2017-08-17] MEDS ORDERED: acetaZOLAMIDE SEQUELS 500 MG SUSTAINED RELEASE CAP PO SCH (09:00)
[2017-08-17] MEDS: PANTOPRAZOLE SOD 40 MG DELAYED RELEASE TAB PO SCH (09:05)
[2017-08-17] MEDS ORDERED: ACETA500 PO (09:06)
[2017-08-17] MEDS ORDERED: FURO20TA PO (09:06)
[2017-08-17] MEDS: SODIUM CHLORIDE 0.9% FLUSH 10 ML FLUSH IV FLUSH SCH ×2 (09:07→22:25)
[2017-08-17 10:15] VITALS: O2SAT 100
[2017-08-17 11:45] VITALS: BP 122/57; PULSE 76; RESP 18; TEMP 98.2; O2SAT 99
--- NOTE | 2017-08-17 14:10 | HHI.PR ---
Subjective Remarks Patient reported feeling much better, "I want to go home "discussed with patient case manager and with neurosurgery will try to wean down her pain medication to be able to be discharged on p.o. pain medication No fever or chills headache is better Objective Vitals Vital Signs Date Time Temp Pulse Resp B/P (MAP) Pulse Ox O2 Delivery O2 Flow Rate FiO2 08/17/17 11:45 98.2 76 18 122/57 (78) 99 08/17/17 10:15 100 08/17/17 07:44 98.0 81 18 107/61 (76) 100 08/17/17 06:00 98.3 76 20 120/59 (79) 99 08/17/17 01:00 97.9 80 19 115/56 (75) 98 08/16/17 23:30 98.1 72 18 111/54 (73) 98 08/16/17 17:18 95 21 08/16/17 16:00 98.4 65 18 95/52 (66) 95 I/O 08/16/17 08/16/17 08/16/17 08/17/17 08/17/17 08/17/17 06:59 14:59 22:59 06:59 14:59 22:59 Intake Total 800 ml 950 ml Balance 800 ml 950 ml Intake Oral 800 ml 950 ml # Voids 1 1 3 # Bowel Movements 0 0 Objective Remarks GENERAL: This is a well-nourished, well-developed patient, in no apparent distress. SKIN: No rashes, warm and dry HEAD: Atraumatic. Normocephalic. EYES: Pupils equal round and reactive. Extraocular motions intact. No scleral icterus. ENT: Nose without bleeding, or drainage, Airway patent. NECK: Trachea midline. Supple CARDIOVASCULAR: Regular rate and rhythm without murmurs, gallops, or rubs. RESPIRATORY: Fair air entry bilaterally. No wheezes, rales, or rhonchi. GASTROINTESTINAL: Abdomen soft, non-tender, nondistended. Positive bowel sounds MUSCULOSKELETAL: Extremities without clubbing, cyanosis, or edema. Pedal pulses appreciated NEUROLOGICAL: Awake and alert. Moves all extremity. Normal speech.no focal neurological deficit Procedures LP shunt A/P Problem List: (1) Pseudotumor cerebri ICD Code: G93.2 - Benign intracranial hypertension Status: Chronic (2) History of idiopathic intracranial hypertension ICD Code: Z86.69 - Personal history of other diseases of the nervous system and sense organs Status: Acute Assessment and Plan 32-year-old female with Pseudotumor cerebri with visual changes S/P LP (08/06/17) -Neurosurgery consulted, appreciate assistance -LP cultures NGTD, -Continue Diamox, Lasix and Topamax -continue with pain control. -Status post lumbar shunt placement 08/12/17. General surgery consulted to help with the peritoneal insertion Continue monitoring with neurosurgery, PT 08/15: First time able to stand up today, will discuss with neurosurgery about left sided abdominal pain, continue pain management 08/16: D/W neurosurgery and with the patient, he is willing to clear her for discharge today or tomorrow on p.o. regimen pain medication, PT recommended rehab I discussed with the charge nurse will plan on DC tomorrow when rehab place is available 08/17:Patient reported feeling much better, "I want to go home "discussed with patient case manager and with neurosurgery will try to wean down her pain medication to be able to be discharged on p.o. pain medication Blurred vision -Patient was seen previously by Dr. Arndt, global analytics head last April, with recommendations to continue with follow up. -Per notes patient has no signs of papilla edema. Visual field showed extreme constricted vision in her periphery. This could be sign of significant nerve damage in the past, though she did have a large number of false negatives , falling asleep during test so unclear how valid this test is, though it is certainly striking. Patient had the repeat exam in a few months but never showed up in the office. -Complains of increasing left eye vision blurriness. -Dr. Dash's report came back. Note stated decrease VA/peripheral vision possibly related to increased ICP. No mention of papilledema. Pain seeking behavior -Patient has visited the ED >8x in the past months, reporting pain but has not been following up with specialists -Counselled. Compliant. DVT Prop ambulation Shefali Ventura MD Aug 17, 2017 14:10
[2017-08-17 16:00] VITALS: BP 112/63; PULSE 71; RESP 18; TEMP 98; O2SAT 96
[2017-08-18] VITALS: BP 111/62; PULSE 74; RESP 16; TEMP 98.6; O2SAT 98
[2017-08-18] MEDS: HYDROmorphone HCL PF 2 MG/ML VIAL IV PUSH PRN (00:33)
[2017-08-18] MEDS: SODIUM CHLORIDE 0.9% FLUSH 10 ML FLUSH IV FLUSH PRN (00:34)
[2017-08-18] MEDS ORDERED: PILL SPLITTER OTHER PRN (01:45)
[2017-08-18 04:00] VITALS: BP 94/52; PULSE 68; RESP 16; TEMP 98.4; O2SAT 93
[2017-08-18] MEDS: ACETAMINOPHEN/HYDROcodone 325 MG/10 MG TAB PO PRN ×3 (05:09→13:36)
[2017-08-18] MEDS: HYDROmorphone HCL 4 MG TAB PO PRN ×3 (07:19→15:42)
[2017-08-18 08:12] VITALS: BP 111/56; PULSE 58; RESP 20; TEMP 98.3; O2SAT 97
[2017-08-18] MEDS ORDERED: MORPHINE SULFATE 15 MG CONTROLLED RELEASE TAB PO SCH (09:00)
[2017-08-18] MEDS ORDERED: FUROSEMIDE 20 MG TAB PO SCH (09:00)
[2017-08-18] MEDS ORDERED: acetaZOLAMIDE SEQUELS 500 MG SUSTAINED RELEASE CAP PO SCH (09:00)
[2017-08-18] MEDS: TOPIRAMATE 100 MG TAB PO SCH (09:20)
[2017-08-18] MEDS: DOCUSATE SODIUM 100 MG CAP PO SCH (09:21)
[2017-08-18] MEDS: PANTOPRAZOLE SOD 40 MG DELAYED RELEASE TAB PO SCH (09:21)
[2017-08-18] MEDS: SODIUM CHLORIDE 0.9% FLUSH 10 ML FLUSH IV FLUSH SCH (09:24)
[2017-08-18] MEDS ORDERED: MORP1TAB24 PO (11:16)
[2017-08-18] MEDS ORDERED: DILA4TAB10 PO (11:16)
[2017-08-18] MEDS ORDERED: WALKER WHEELS/F1 MIS (11:23)
--- NOTE | 2017-08-18 11:29 | HHI.NSPN ---
History Chief Complaint: Pain continues to the right abdominal wall. Interval History States that she continued diminished pain at the right costal margin today. Vision and headaches continue to improve postoperative compared to preoperative. Exam Results Vital Signs Date Time Temp Pulse Resp B/P (MAP) Pulse Ox O2 Delivery O2 Flow Rate FiO2 08/18/17 08:12 98.3 58 20 111/56 (74) 97 08/16/17 17:18 21 Physical Examination GENERAL: Awake & alert in bed. Affect somewhat flat. Readily interacts. Appears moderately uncomfortable but not in any apparent distress. moderate TTP to the epigastric incision and moderately TTP at the right lateral abdominal wall incision. Quite TTP from epigastric incision going inferiorly along the abdominal wall to the right anterolateral region. No erythema or edema at incision site NEUROLOGICAL: AAOx3. Speech clear & appropriate. Follows simple commands w/o difficulty. Patient with improved visual field testing to both eyes. Counts fingers in far lateral quadrants OU Sensation intact to light touch to all extremities. Motor strength 5/5 to all major flexion & extension muscle groups except weaker to wrist flexors/extensors & hand intrinsics/extrinsics. Medical Decision Making Impression and Plan Impression: Continued improvement in vision, DELCID and post op tenderness Plan: Clear for D/C today Discussed incision care, activity precautions, signs and symptoms to watch for with patient D/W medicine service Patient has made arrangements for D/C home today Pain controlled with PO meds Mamadou Cerrato MD Aug 18, 2017 11:29
[2017-08-18] MEDS ORDERED: BISACODYL 10 MG SUPP RECTAL PRN (11:30)
[2017-08-18] MEDS ORDERED: DOCUSATE SODIUM 50 MG/SENNA 8.6 MG TAB PO PRN (11:30)
[2017-08-18] MEDS ORDERED: MAGNESIUM HYDROXIDE SUSP 30 ML CUP PO PRN (11:30)
[2017-08-18 15:18] VITALS: BP 119/60; PULSE 67; RESP 20; TEMP 98.5; O2SAT 95
--- NOTE | 2017-08-18 16:07 | HHI.NSPN ---
History Chief Complaint: Pain continues to the right abdominal wall. Interval History States that she continued diminished pain at the right costal margin today. Vision and headaches continue to improve postoperative compared to preoperative. Exam Results Vital Signs Date Time Temp Pulse Resp B/P (MAP) Pulse Ox O2 Delivery O2 Flow Rate FiO2 08/18/17 15:18 98.5 67 20 119/60 (79) 95 08/16/17 17:18 21 Intake and Output 08/18/17 08/18/17 08/19/17 08:00 16:00 00:00 Intake Total 960 ml Balance 960 ml Physical Examination GENERAL: Awake & alert in bed. Affect somewhat flat. Readily interacts. Appears moderately uncomfortable but not in any apparent distress. moderate TTP to the epigastric incision and moderately TTP at the right lateral abdominal wall incision. Quite TTP from epigastric incision going inferiorly along the abdominal wall to the right anterolateral region. No erythema or edema at incision site NEUROLOGICAL: AAOx3. Speech clear & appropriate. Follows simple commands w/o difficulty. Patient with improved visual field testing to both eyes. Counts fingers in far lateral quadrants OU Sensation intact to light touch to all extremities. Motor strength 5/5 to all major flexion & extension muscle groups except weaker to wrist flexors/extensors & hand intrinsics/extrinsics. Medical Decision Making Impression and Plan Impression: Continued improvement in vision, DELCID and post op tenderness Plan: Clear for D/C today Discussed incision care, activity precautions, signs and symptoms to watch for with patient D/W medicine service Patient has made arrangements for D/C home today Pain controlled with PO meds Mamadou Cerrato MD Aug 18, 2017 16:07
== END 2017-08-18 17:58 | disposition home or self-care (01) | DRG 30 ==
LOC: NEPE 17:17 → NEDA 21:19 → NEPFCDU 23:40 → OBSVTOIN 08-09 09:02 → N05B 08-11 08:13
PROVIDERS: ADMIT Hospitalist; ATTEND Hospitalist
PROC: 009U3ZX Drainage of Spinal Canal, Percutaneous Approach, Diagnostic (ICD-10-PCS; 2017-08-06)
PROC: 001U3J6 Bypass Spinal Canal to Peritoneal Cavity with Synthetic Substitute, Percutaneous Approach (ICD-10-PCS; principal; 2017-08-12 14:04)
DX: G93.2 Benign intracranial hypertension (principal); I10 Essential (primary) hypertension; F17.210 Nicotine dependence, cigarettes, uncomplicated; G89.29 Other chronic pain; J45.909 Unspecified asthma, uncomplicated; G40.909 Epilepsy, unspecified, not intractable, without status epilepticus; G43.909 Migraine, unspecified, not intractable, without status migrainosus; F12.90 Cannabis use, unspecified, uncomplicated; H54.7 Unspecified visual loss; H53.40 Unspecified visual field defects; Z83.3 Family history of diabetes mellitus; Z82.49 Family history of ischemic heart disease and other diseases of the circulatory system; M62.81 Muscle weakness (generalized); Z86.14 Personal history of Methicillin resistant Staphylococcus aureus infection; Z87.442 Personal history of urinary calculi
CPT/HCPCS: 62270; 72020; 76000; 77003; 80048; 80053; 82438; 82945; 83605; 84157; 85025; 85027; 85610; 85652; 85730; 86140; 86403; 87015; 87070; 87102; 87116; 87205; 87206; 89051; 93005; 94150; G8987-GP; G8988-GP; J0690; J1100; J1170; J1580; J2060; J2250; J2270; J2370; J2405; J2765; J3010; J3480; J7030; L0627

== ENCOUNTER 2017-08-18 21:59 | Emergency (ER) | payer SELFPAY ==
[~2017-08-18] VITALS: Ht 154.9 cm; Wt 108.2 kg
[~2017-08-18 21:59] MED LIST changes: -BACTOIN EACH NARE; -CLIN150C14 PO; +DILA4TAB10 PO; +FURO20TA PO; +MORP1TAB24 PO; +WALKER WHEELS/F1 MIS
[2017-08-18 22:06] VITALS: BP 148/93; PULSE 107; RESP 20; TEMP 98; O2SAT 97
[2017-08-18] MEDS ORDERED: ORPHENADRINE INJ 60 MG/2 ML AMP IM ONE (22:45)
[2017-08-18] MEDS ORDERED: ORPHENADRINE INJ 60 MG/2 ML AMP IV ONE (22:45)
--- NOTE | 2017-08-18 22:47 | PD ---
HPI Chief Complaint: Abdominal Pain Time Seen by Provider: 22:18 Travel History International Travel<30 days: No Contact w/Intl Traveler<30days: No Traveled to known affect area: No History of Present Illness HPI Examined in the presence of a female nurse at all times. 32-year-old female with history of pseudotumor cerebri presents for evaluation of abdominal pain. Patient was admitted on August 09 with intractable headache. She underwent lumbar peritoneal shunt on August [address] Cerrato, Dr. Morrison assisted during the abdominal exposure and dissection into the abdominal cavity for the peritoneal portion of the shunt. She was discharged 5 hours ago. She reports that 2 hours prior to this examination she was straining quite hard in order to have her first bowel movements and she felt severe pain in her right upper quadrant. She has been having soreness in her right upper quadrant since the surgery but it is much worse now. Pain is sharp and worse with movement. She endorses some nausea. Denies fevers, chills, vomiting. She was receiving narcotic pain medication during her hospital stay. She has no other complaints. PFSH Past Medical History Hx Anticoagulant Therapy: No Arthritis: No Asthma: Yes Autoimmune Disease: No Blood Disorders: No Anxiety: No Depression: No Heart Rhythm Problems: No Cancer: No Cardiovascular Problems: No High Cholesterol: No Chemotherapy: No Chest Pain: No Congestive Heart Failure: No COPD: No Cerebrovascular Accident: No Diabetes: No Diminished Hearing: No Endocrine: No Gastrointestinal Disorders: No GERD: No Genitourinary: Yes (KIDNEY STONES) Headaches: Yes Hiatal Hernia: No Heparin Induced Thrombocytopen: No Hypertension: Yes (Idiopathic intracranial hypertension) Immune Disorder: No Implanted Vascular Access Dvce: No Kidney Stones: Yes Musculoskeletal: No Neurologic: Yes (headaches) Psychiatric: No Reproductive: Yes (7 MISCARRIAGES) Respiratory: Yes (asthma) Immunizations Current: Yes Migraines: Yes Radiation Therapy: No Renal Failure: No Seizures: No Sickle Cell Disease: No Sleep Apnea: No Thyroid Disease: No Ulcer: No ?: Not : 8 Para: 1 Miscarriage: 7 Dilation and Curettage (D&C): Yes (x3 ) Past Surgical History Abdominal Surgery: No AICD: No Arteriovenous Shunt: No Cardiac Surgery: No Section: Yes Cholecystectomy: Yes Ear Surgery: No Endocrine Surgery: No Eye Surgery: No Genitourinary Surgery: Yes (STENTS KIDNEYS, LITHOTRIPSIES) Gynecologic Surgery: No Hysterectomy: Yes Insulin Pump: No Joint Replacement: No Neurologic Surgery: Yes (2 LP shunts placed 08/12/17) Oral Surgery: No Pacemaker: No Thoracic Surgery: No Other Surgery: Yes (L KIDNEY (STENTS x 6)) Social History Alcohol Use: No Tobacco Use: Yes (1 cigarette ) Substance Use: Yes (marijuana= states to have med license) Allergies-Medications (Allergen,Severity, Reaction): Coded Allergies: Sulfa (Sulfonamide Antibiotics) (Verified Allergy, Severe, RASH, 07/27/17) amoxicillin (Verified Allergy, Severe, Anaphylaxis, 07/27/17) ketorolac (Verified Allergy, Severe, Anaphylaxis, 07/27/17) anaphylaxis per patient ibuprofen (Verified Allergy, Intermediate, HIVES, FACIAL SWELLING., 07/27/17 ) tramadol (Verified Allergy, Intermediate, HIVES, 07/27/17) hives, sewll up latex (Verified Allergy, Unknown, 07/27/17) penicillin G (Verified Allergy, Unknown, HIVES, 07/27/17) prochlorperazine (Verified Allergy, Unknown, HIVES, 07/27/17) sumatriptan (Verified Adverse Reaction, Severe, VOMITING PASSED OUT, ) Reported Meds & Prescriptions Reported Meds & Active Scripts Active Walker with Front Wheels (Device) 1 Mis Mis Ea .XX DIRECTED Morphine ER (Morphine Sulfate) 15 Mg Tab 15 Mg PO Q12HR Dilaudid (Hydromorphone HCl) 4 Mg Tab 4 Mg PO Q4H PRN Furosemide 20 Mg Tab 20 Mg PO DAILY Florastor (Saccharomyces Boulardii) 250 Mg Cap 250 Mg PO BID 28 Days Valium (Diazepam) 5 Mg Tab 5 Mg PO BID PRN 30 Days Oxycodone-Acetaminophen 10-325 (Oxycodone HCl/Acetaminophen) 10 Mg-325 Mg Tablet 1 Tab PO Q6H PRN 30 Days Meclizine (Meclizine HCl) 25 Mg Tab 25 Mg PO TID PRN 30 Days Lasix (Furosemide) 40 Mg Tab 40 Mg PO BID 30 Days Diamox Sequels ER 12 HR (Acetazolamide) 500 Mg Cap 500 Mg PO TID 30 Days Potassium Chloride ER (Potassium Chloride) 20 Meq Tab 20 Meq PO DAILY 30 Days Topamax (Topiramate) 50 Mg Tab 100 Mg PO BID 30 Days Reported Reglan (Metoclopramide HCl) 10 Mg Tab 10 Mg PO QID Review of Systems Except as stated in HPI: all other systems reviewed are Neg Physical Exam Narrative GENERAL: Well-developed well-nourished female no acute distress SKIN: Warm and dry. HEAD: Atraumatic. Normocephalic. EYES: Pupils equal and round. No scleral icterus. No injection or drainage. ENT: No nasal bleeding or discharge. Mucous membranes pink and moist. NECK: Trachea midline. No JVD. CARDIOVASCULAR: Regular rate and rhythm. No murmur appreciated. RESPIRATORY: No accessory muscle use. Clear to auscultation. Breath sounds equal bilaterally. GASTROINTESTINAL: Abdomen soft, tender to palpation in the right upper quadrant and epigastrium without guarding. Abdominal incision dressings are noted on the abdomen, flank and lower back. MUSCULOSKELETAL: No obvious deformities. No clubbing. No cyanosis. No edema. NEUROLOGICAL: Awake and alert. No obvious cranial nerve deficits. Motor grossly within normal limits. Normal speech. Data Data Last Documented VS Vital Signs Date Time Temp Pulse Resp B/P (MAP) Pulse Ox O2 Delivery O2 Flow Rate FiO2 08/18/17 22:06 98.0 107 20 148/93 (111) 97 Orders Orders Orphenadrine Inj (Norflex Inj) (08/18/17 22:45) Complete Blood Count With Diff (08/18/17 22:40) Comprehensive Metabolic Panel (08/18/17 22:40) Lipase (08/18/17 22:40) Ct Abd/Pel W/O Iv Contrast (08/18/17 22:40) Orphenadrine Inj (Norflex Inj) (08/18/17 22:45) MDM Medical Decision Making Medical Screen Exam Complete: Yes Emergency Medical Condition: Yes Medical Record Reviewed: Yes Differential Diagnosis Postoperative abdominal pain versus abscess Narrative Course 32-year-old female just discharged after having a lumbar peritoneal shunt placed for treatment of pseudotumor cerebri. She presents with increased abdominal pain on the right side after straining during a bowel movement. Initially a x-ray was ordered in order to assess for free air however the patient is refusing an x-ray. CT the abdomen and pelvis has been ordered to rule out any evidence of perforation or free air. Basic lab work is been ordered. Patient is allergic to NSAIDs. She will be given Norflex. At the end of my shift the patient was signed out to my attending pending lab work and imaging studies. Vincenzo Yusuf Aug 18, 2017 22:47
--- NOTE | 2017-08-18 22:54 | PD ---
Physical Exam Narrative Patient was seen by me and my compliance assistant. Data Data Last Documented VS Vital Signs Date Time Temp Pulse Resp B/P (MAP) Pulse Ox O2 Delivery O2 Flow Rate FiO2 08/18/17 22:06 98.0 107 20 148/93 (111) 97 Orders Orders Orphenadrine Inj (Norflex Inj) (08/18/17 22:45) Complete Blood Count With Diff (08/18/17 22:40) Comprehensive Metabolic Panel (08/18/17 22:40) Lipase (08/18/17 22:40) Ct Abd/Pel W/O Iv Contrast (08/18/17 22:40) Orphenadrine Inj (Norflex Inj) (08/18/17 22:45) Ed Discharge Order (08/19/17 00:05) Orphenadrine Inj (Norflex Inj) (08/19/17 00:15) Labs Laboratory Tests Test 08/18/17 22:50 White Blood Count 10.8 TH/MM3 Red Blood Count 4.09 MIL/MM3 Hemoglobin 11.2 GM/DL Hematocrit 33.7 % Mean Corpuscular Volume 82.4 FL Mean Corpuscular Hemoglobin 27.5 PG Mean Corpuscular Hemoglobin Concent 33.3 % Red Cell Distribution Width 13.1 % Platelet Count 299 TH/MM3 Mean Platelet Volume 8.3 FL Neutrophils (%) (Auto) 60.4 % Lymphocytes (%) (Auto) 28.0 % Monocytes (%) (Auto) 7.3 % Eosinophils (%) (Auto) 3.3 % Basophils (%) (Auto) 1.0 % Neutrophils # (Auto) 6.5 TH/MM3 Lymphocytes # (Auto) 3.0 TH/MM3 Monocytes # (Auto) 0.8 TH/MM3 Eosinophils # (Auto) 0.4 TH/MM3 Basophils # (Auto) 0.1 TH/MM3 CBC Comment DIFF FINAL Differential Comment Blood Urea Nitrogen 12 MG/DL Creatinine 0.71 MG/DL Random Glucose 117 MG/DL Total Protein 7.0 GM/DL Albumin 2.9 GM/DL Calcium Level 8.8 MG/DL Alkaline Phosphatase 73 U/L Aspartate Amino Transf (AST/SGOT) 30 U/L Alanine Aminotransferase (ALT/SGPT) 32 U/L Total Bilirubin 0.1 MG/DL Sodium Level 144 MEQ/L Potassium Level 3.4 MEQ/L Chloride Level 112 MEQ/L Carbon Dioxide Level 23.5 MEQ/L Anion Gap 9 MEQ/L Estimat Glomerular Filtration Rate 95 ML/MIN Lipase 65 U/L MDM Supervised Visit with SEB: Yes Interpretation(s) 23:57 PM. CBC within normal limits. Potassium 3.4. Differential Diagnosis Differential diagnosis including acute exacerbation of abdominal pain after surgery, hematoma, seroma. Narrative Course 32-year-old female with exacerbation of left low rib cage pain and upper abdominal pain. Patient status post MARKETING SUPPORT COORDINATOR shunt placement. Patient was discharged this morning. Patient states that she could not fill her prescription for pain medication including Dilaudid and morphine because of the pharmacy close. Patient states that she had Percocet at home. Norflex 60 mg IM given. Diagnosis Primary Impression: Abdominal pain Qualified Codes: R10.12 - Left upper quadrant pain Patient Instructions: General Instructions Additional Instruction: Continue with medication as directed. Follow-up with personal physician. Return if worse. Med/Other Pt SpecificInfo: No Change to Meds Disposition: 01 DISCHARGE HOME Condition: Stable Minor Arevalo MD Aug 18, 2017 22:54
[2017-08-18 23:08] LABS: AUTOMATED NEUTROPHIL # 6.5 TH/MM3 (1.8-7.7); BASOPHIL # 0.1 TH/MM3 (0-0.2); EOSINOPHIL # 0.4 TH/MM3 (0-0.4); EOSINOPHIL % 3.3 % (0.0-4.0); HEMATOCRIT 33.7 % (35.0-46.0); HEMOGLOBIN 11.2 GM/DL (11.6-15.3); MEAN CELL VOLUME 82.4 FL (80.0-100.0); MEAN CORPUSCULAR HEMOGLOBIN 27.5 PG (27.0-34.0); MEAN CORPUSCULAR HGB CONC 33.3 % (32.0-36.0); MEAN PLATELET VOLUME 8.3 FL (7.0-11.0); MONO % 7.3 % (0.0-8.0); MONOCYTE # 0.8 TH/MM3 (0-0.9); NEUT % 60.4 % (16.0-70.0); PLATELET COUNT 299 TH/MM3 (150-450); RED BLOOD COUNT 4.09 MIL/MM3 (4.00-5.30); RED CELL DISTRIBUTION WIDTH 13.1 % (11.6-17.2); WHITE BLOOD COUNT 10.8 TH/MM3 (4.0-11.0)
[2017-08-18 23:29] LABS: ALKALINE PHOSPHATASE 73 U/L (45-117); TOTAL BILIRUBIN ADULT 0.1 MG/DL (0.2-1.0)
[2017-08-18 23:37] LABS: ALBUMIN 2.9 GM/DL (3.4-5.0); ALT (GPT) 32 U/L (10-53); AST (GOT) 30 U/L (15-37); BICARBONATE 23.5 MEQ/L (21.0-32.0); BLOOD UREA NITROGEN 12 MG/DL (7-18); CALCIUM 8.8 MG/DL (8.5-10.1); CHLORIDE 112 MEQ/L (98-107); CREATININE 0.71 MG/DL (0.50-1.00); GLOMERULAR FILTRATION RATE 95 ML/MIN (>89); GLUCOSE,RANDOM 117 MG/DL (74-106); SODIUM (NA) 144 MEQ/L (136-145)
--- NOTE | 2017-08-18 23:59 | RADRPT ---
EXAM DATE/TIME: 08/18/2017 23:32 [facility] COMPARISON: No previous studies available for comparison. INDICATIONS : Abdomen pain post shunt placement 08/12/2017. ORAL CONTRAST: No oral contrast ingested. RADIATION DOSE: 9.96 CTDIvol (mGy) MEDICAL HISTORY : Renal calculi. Hypertension. SURGICAL HISTORY : Cholecystectomy. Hysterectomy. ENCOUNTER: Initial ACUITY: 1 day PAIN SCALE: 6/10 LOCATION: Bilateral abdoemn TECHNIQUE: Volumetric scanning of the abdomen and pelvis was performed. Using automated exposure control and ad justment of the mA and/or kV according to patient size, radiation dose was kept as low as reasonably achievable to obtain optimal diagnostic quality images. DICOM format image data is available electro nically for review and comparison. FINDINGS: Mild dependent atelectasis in the lungs. No acute findings in the liver, spleen, adrenals, kidneys or pancreas. Previous cholecystectomy. There is interval placement of a catheter beginning in the anterior abdominal wall and extending into the lumbar canal and cephalad into the thoracic canal. Mild scoliosis. CONCLUSION: 1. No acute findings within the abdomen and pelvis. Shunt placement. No abnormal fluid collections. Daniel Zuniga MD on August 18, 2017 at 23:53 Board Certified Radiologist. This report was verified electronically.
[2017-08-19] MEDS ORDERED: ORPHENADRINE INJ 60 MG/2 ML AMP IM ONE (00:15)
== END 2017-08-19 01:06 | disposition home or self-care (01) ==
LOC: NEPC 21:59
DX: R10.11 Right upper quadrant pain (principal); R11.0 Nausea; G93.2 Benign intracranial hypertension; I10 Essential (primary) hypertension; Z72.0 Tobacco use; Z86.69 Personal history of other diseases of the nervous system and sense organs; Z87.09 Personal history of other diseases of the respiratory system; Z87.442 Personal history of urinary calculi
CPT/HCPCS: 74176; 80053; 83690; 85025; 96372; 99285; J2360

== ENCOUNTER 2017-08-19 19:14 | Emergency (ER) | payer SELFPAY ==
[~2017-08-19] VITALS: Ht 165.1 cm; Wt 78.0 kg
--- NOTE | 2017-08-19 19:52 | PD ---
HPI Chief Complaint: Abdominal pain Time Seen by Provider: 19:45 Travel History International Travel<30 days: No Contact w/Intl Traveler<30days: No History of Present Illness HPI 32yo F with PMH of pseudotumor cerebri s/p lumboperitoneal shunt August [address] Cerrato and assisted by Dr. Morrison here with c/o pain in abdomen. Pt was just discharge from hospital yesterday and already had an emergency department visit about her abdominal pain yesterday. Pt had CT a/p yesterday that showed shunt placement and no abnormal fluid collection. Pt denies any fever, chest pain, vomiting, focal weakness or numbness. Pt said pain is right abdomen and lower back where her incision sites are. Pt is already taking dilaudid and morphine as an outpatient and last took dilaudid 4mg PO at 5:30pm. Pt said she feels sob because she cant take deep breaths because her abdomen hurts. PFSH Past Medical History Hx Anticoagulant Therapy: No Arthritis: No Asthma: Yes Autoimmune Disease: No Blood Disorders: No Anxiety: No Depression: No Heart Rhythm Problems: No Cancer: No Cardiovascular Problems: No High Cholesterol: No Chemotherapy: No Chest Pain: No Congestive Heart Failure: No COPD: No Cerebrovascular Accident: No Diabetes: No Diminished Hearing: No Endocrine: No Gastrointestinal Disorders: No GERD: No Genitourinary: Yes (KIDNEY STONES) Headaches: Yes Hiatal Hernia: No Heparin Induced Thrombocytopen: No Hypertension: Yes (Idiopathic intracranial hypertension) Immune Disorder: No Implanted Vascular Access Dvce: No Kidney Stones: Yes Musculoskeletal: No Neurologic: Yes (headaches) Psychiatric: No Reproductive: Yes (7 MISCARRIAGES) Respiratory: Yes (asthma) Immunizations Current: Yes Migraines: Yes Radiation Therapy: No Renal Failure: No Seizures: No Sickle Cell Disease: No Sleep Apnea: No Thyroid Disease: No Ulcer: No : 8 Para: 1 Miscarriage: 7 Dilation and Curettage (D&C): Yes (x3 ) Past Surgical History Abdominal Surgery: No AICD: No Arteriovenous Shunt: No Cardiac Surgery: No Section: Yes Cholecystectomy: Yes Ear Surgery: No Endocrine Surgery: No Eye Surgery: No Genitourinary Surgery: Yes (STENTS KIDNEYS, LITHOTRIPSIES) Gynecologic Surgery: No Hysterectomy: Yes Insulin Pump: No Joint Replacement: No Neurologic Surgery: Yes (2 LP shunts placed 08/12/17) Oral Surgery: No Pacemaker: No Thoracic Surgery: No Other Surgery: Yes (L KIDNEY (STENTS x 6)) Social History Alcohol Use: No Tobacco Use: Yes (1 cigarette ) Substance Use: Yes (marijuana= states to have med license) Allergies-Medications (Allergen,Severity, Reaction): Coded Allergies: Sulfa (Sulfonamide Antibiotics) (Verified Allergy, Severe, RASH, 07/27/17) amoxicillin (Verified Allergy, Severe, Anaphylaxis, 07/27/17) ketorolac (Verified Allergy, Severe, Anaphylaxis, 07/27/17) anaphylaxis per patient ibuprofen (Verified Allergy, Intermediate, HIVES, FACIAL SWELLING., 07/27/17 ) tramadol (Verified Allergy, Intermediate, HIVES, 07/27/17) hives, sewll up latex (Verified Allergy, Unknown, 07/27/17) penicillin G (Verified Allergy, Unknown, HIVES, 07/27/17) prochlorperazine (Verified Allergy, Unknown, HIVES, 07/27/17) sumatriptan (Verified Adverse Reaction, Severe, VOMITING PASSED OUT, ) Reported Meds & Prescriptions Reported Meds & Active Scripts Active Walker with Front Wheels (Device) 1 Mis Mis Ea .XX DIRECTED Morphine ER (Morphine Sulfate) 15 Mg Tab 15 Mg PO Q12HR Dilaudid (Hydromorphone HCl) 4 Mg Tab 4 Mg PO Q4H PRN Furosemide 20 Mg Tab 20 Mg PO DAILY Florastor (Saccharomyces Boulardii) 250 Mg Cap 250 Mg PO BID 28 Days Valium (Diazepam) 5 Mg Tab 5 Mg PO BID PRN 30 Days Oxycodone-Acetaminophen 10-325 (Oxycodone HCl/Acetaminophen) 10 Mg-325 Mg Tablet 1 Tab PO Q6H PRN 30 Days Meclizine (Meclizine HCl) 25 Mg Tab 25 Mg PO TID PRN 30 Days Lasix (Furosemide) 40 Mg Tab 40 Mg PO BID 30 Days Diamox Sequels ER 12 HR (Acetazolamide) 500 Mg Cap 500 Mg PO TID 30 Days Potassium Chloride ER (Potassium Chloride) 20 Meq Tab 20 Meq PO DAILY 30 Days Topamax (Topiramate) 50 Mg Tab 100 Mg PO BID 30 Days Reported Reglan (Metoclopramide HCl) 10 Mg Tab 10 Mg PO QID Review of Systems Except as stated in HPI: all other systems reviewed are Neg Physical Exam Narrative GENERAL: 32yo F in mild distress. SKIN: Focused skin assessment warm/dry. HEAD: Atraumatic. Normocephalic. EYES: Pupils equal and round. No scleral icterus. No injection or drainage. ENT: No nasal bleeding or discharge. Mucous membranes pink and moist. NECK: Trachea midline. No JVD. CARDIOVASCULAR: Regular rate and rhythm. No murmur appreciated. RESPIRATORY: No accessory muscle use. Clear to auscultation. Breath sounds equal bilaterally. GASTROINTESTINAL: Abdomen soft, obese. +Surgical wound right of epigastric region that is clean, dry and intact with steri strips. +Surgical wound right mid abdomen that is clean, dry and intact with steri strips. Mild ttp around incision sites but no rebound tenderness or guarding. BACK: +Mid lumbar surgical wound that has some dry blood but otherwise no erythema or purulent discharge. MUSCULOSKELETAL: No obvious deformities. No clubbing. No cyanosis. No edema. NEUROLOGICAL: Awake and alert. No obvious cranial nerve deficits. Motor grossly within normal limits in all extremities. Sensation equal. Normal speech. PSYCHIATRIC: Appropriate mood and affect; insight and judgment normal. Data Data Last Documented VS Vital Signs Date Time Temp Pulse Resp B/P (MAP) Pulse Ox O2 Delivery O2 Flow Rate FiO2 08/19/17 20:12 98.6 83 16 120/58 (78) 98 Orders Orders Complete Blood Count With Diff (08/19/17 19:45) Comprehensive Metabolic Panel (08/19/17 19:45) Chest, Single Ap (08/19/17 ) Ed Urine Pregnancytest Poc (08/19/17 19:52) Urinalysis - C+S If Indicated (08/19/17 19:52) Morphine Inj (Morphine Inj) (08/19/17 20:00) Ondansetron Inj (Zofran Inj) (08/19/17 20:00) Labs Laboratory Tests Test 08/19/17 23:40 White Blood Count 11.8 TH/MM3 Red Blood Count 3.94 MIL/MM3 Hemoglobin 10.7 GM/DL Hematocrit 32.4 % Mean Corpuscular Volume 82.4 FL Mean Corpuscular Hemoglobin 27.1 PG Mean Corpuscular Hemoglobin Concent 32.9 % Red Cell Distribution Width 13.4 % Platelet Count 333 TH/MM3 Mean Platelet Volume 7.6 FL Neutrophils (%) (Auto) 58.6 % Lymphocytes (%) (Auto) 29.3 % Monocytes (%) (Auto) 8.1 % Eosinophils (%) (Auto) 3.0 % Basophils (%) (Auto) 1.0 % Neutrophils # (Auto) 6.9 TH/MM3 Lymphocytes # (Auto) 3.5 TH/MM3 Monocytes # (Auto) 1.0 TH/MM3 Eosinophils # (Auto) 0.4 TH/MM3 Basophils # (Auto) 0.1 TH/MM3 CBC Comment DIFF FINAL Differential Comment Blood Urea Nitrogen 11 MG/DL Creatinine 0.70 MG/DL Random Glucose 91 MG/DL Total Protein 6.7 GM/DL Albumin 2.8 GM/DL Calcium Level 8.7 MG/DL Alkaline Phosphatase 71 U/L Aspartate Amino Transf (AST/SGOT) 16 U/L Alanine Aminotransferase (ALT/SGPT) 28 U/L Total Bilirubin 0.2 MG/DL Sodium Level 145 MEQ/L Potassium Level 3.4 MEQ/L Chloride Level 112 MEQ/L Carbon Dioxide Level 24.3 MEQ/L Anion Gap 9 MEQ/L Estimat Glomerular Filtration Rate 97 ML/MIN MDM Medical Decision Making Medical Screen Exam Complete: Yes Emergency Medical Condition: Yes Differential Diagnosis Malingering vs. atelectasis vs. normal pain from surgical wound Narrative Course 32yo F here with c/o pain from her surgery. Pt has morphine and dilaudid at home and said dilaudid helped with her pain today. However, pt said she was cooking and may have over exerted herself today. Pt is afebrile and her surgical wounds do not appear infected. Pt just had a CT a/p yesterday that was negative. Labs reviewed, no leukocytosis. H/H low but at baseline. Mild hypokalemia at 3.4 which is baseline. Pt tolerating PO. Pt given morphine and zofran which helped with pain. Discussed with Dr. Cerrato who is agreeable to have pt follow up as outpatient. Said he reviewed the CT scan from yesterday. Pt already has an appointment with him and already has pain medications. Pt said it hurts when she takes a deep breath so CXR was done and negative. Return precautions given. Diagnosis Primary Impression: Abdominal pain Qualified Codes: R10.9 - Unspecified abdominal pain Patient Instructions: General Instructions Departure Forms: Tests/Procedures Additional Instructions: Please follow up with Dr. Cerrato at your appointment time. Return to the ED if symptoms worsen. Med/Other Pt SpecificInfo: No Change to Meds Disposition: 01 DISCHARGE HOME Condition: Stable Sari Marquez DO Aug 19, 2017 19:52
[2017-08-19] MEDS ORDERED: MORPHINE SULFATE 4 MG/ML INJ IV PUSH ONE (20:00)
[2017-08-19] MEDS ORDERED: ONDANSETRON HCL 4 MG/2 ML VIAL IV PUSH ONE (20:00)
[2017-08-19 20:12] VITALS: BP 120/58; PULSE 83; RESP 16; TEMP 98.6; O2SAT 98
--- NOTE | 2017-08-19 20:23 | RADRPT ---
EXAM DATE/TIME: 08/19/2017 19:59 [facility] COMPARISON: CHEST SINGLE AP, July 27, 2017, 19:38. INDICATIONS : Chest pain. MEDICAL HISTORY : None. SURGICAL HISTORY : None. ENCOUNTER: Sequela ACUITY: 3 days PAIN SCORE: 10/10 LOCATION: Right chest FINDINGS: A single view of the chest demonstrates the lungs to be symmetrically aerated without evidence of mas s, infiltrate or effusion. The cardiomediastinal contours are unremarkable. Osseous structures are intact. CONCLUSION: No acute cardiopulmonary disease demonstrated. Wallace Manuel MD on August 19, 2017 at 20:20 Board Certified Radiologist. This report was verified electronically.
[2017-08-19 23:49] LABS: AUTOMATED NEUTROPHIL # 6.9 TH/MM3 (1.8-7.7); BASOPHIL # 0.1 TH/MM3 (0-0.2); EOSINOPHIL # 0.4 TH/MM3 (0-0.4); HEMATOCRIT 32.4 % (35.0-46.0); HEMOGLOBIN 10.7 GM/DL (11.6-15.3); LYMPH % 29.3 % (9.0-44.0); LYMPHOCYTE # 3.5 TH/MM3 (1.0-4.8); MEAN CELL VOLUME 82.4 FL (80.0-100.0); MEAN CORPUSCULAR HEMOGLOBIN 27.1 PG (27.0-34.0); MEAN CORPUSCULAR HGB CONC 32.9 % (32.0-36.0); MEAN PLATELET VOLUME 7.6 FL (7.0-11.0); MONO % 8.1 % (0.0-8.0); NEUT % 58.6 % (16.0-70.0); PLATELET COUNT 333 TH/MM3 (150-450); RED BLOOD COUNT 3.94 MIL/MM3 (4.00-5.30); RED CELL DISTRIBUTION WIDTH 13.4 % (11.6-17.2); WHITE BLOOD COUNT 11.8 TH/MM3 (4.0-11.0)
[2017-08-20 00:06] LABS: ALBUMIN 2.8 GM/DL (3.4-5.0); ALT (GPT) 28 U/L (10-53); AST (GOT) 16 U/L (15-37); BICARBONATE 24.3 MEQ/L (21.0-32.0); BLOOD UREA NITROGEN 11 MG/DL (7-18); CALCIUM 8.7 MG/DL (8.5-10.1); CHLORIDE 112 MEQ/L (98-107); GLOMERULAR FILTRATION RATE 97 ML/MIN (>89); GLUCOSE,RANDOM 91 MG/DL (74-106); SODIUM (NA) 145 MEQ/L (136-145)
[2017-08-20 00:08] LABS: ALKALINE PHOSPHATASE 71 U/L (45-117); TOTAL BILIRUBIN ADULT 0.2 MG/DL (0.2-1.0); TOTAL PROTEIN 6.7 GM/DL (6.4-8.2)
== END 2017-08-20 02:19 | disposition home or self-care (01) ==
LOC: NEPC 19:14
DX: R10.9 Unspecified abdominal pain (principal)
CPT/HCPCS: 71045; 80053; 84703; 85025; 96374; 96375; 99284; J2270; J2405

== ENCOUNTER 2017-08-22 15:55 | Emergency (ER) | payer SELFPAY ==
[~2017-08-22] VITALS: Ht 154.9 cm; Wt 110.0 kg
[2017-08-22 15:59] VITALS: BP 144/65; PULSE 88; RESP 16; TEMP 98.6; O2SAT 100
--- NOTE | 2017-08-22 17:12 | PD ---
HPI Chief Complaint: Neuro Symptoms/ Deficits Time Seen by Provider: 16:55 Travel History International Travel<30 days: No Contact w/Intl Traveler<30days: No Traveled to known affect area: No History of Present Illness HPI The patient was seen and examined in the presence of the nurse. This patient complains of right-sided rib pain. She recently had a shunt placed for pseudotumor cerebri. There is an incision near the right ribs where she has pain. She denies drainage or fever. No injury. She is not short of breath. Pressing on the rib makes it hurt more. Duration 2 days. No alleviating factors. She says she called the neurosurgeons office and was advised to come here. PFSH Past Medical History Hx Anticoagulant Therapy: No Arthritis: No Asthma: Yes Autoimmune Disease: No Blood Disorders: No Anxiety: No Depression: No Heart Rhythm Problems: No Cancer: No Cardiovascular Problems: No High Cholesterol: No Chemotherapy: No Chest Pain: No Congestive Heart Failure: No COPD: No Cerebrovascular Accident: No Diabetes: No Diminished Hearing: No Endocrine: No Gastrointestinal Disorders: No GERD: No Genitourinary: Yes (KIDNEY STONES) Headaches: Yes Hiatal Hernia: No Heparin Induced Thrombocytopen: No Hypertension: Yes (Idiopathic intracranial hypertension) Immune Disorder: No Implanted Vascular Access Dvce: No Kidney Stones: Yes Musculoskeletal: No Neurologic: Yes (headaches) Psychiatric: No Reproductive: Yes (7 MISCARRIAGES) Respiratory: Yes (asthma) Immunizations Current: Yes Migraines: Yes Radiation Therapy: No Renal Failure: No Seizures: No Sickle Cell Disease: No Sleep Apnea: No Thyroid Disease: No Ulcer: No ?: Unknown : 8 Para: 1 Miscarriage: 7 Dilation and Curettage (D&C): Yes (x3 ) Past Surgical History Abdominal Surgery: No AICD: No Arteriovenous Shunt: No Cardiac Surgery: No Section: Yes Cholecystectomy: Yes Ear Surgery: No Endocrine Surgery: No Eye Surgery: No Genitourinary Surgery: Yes (STENTS KIDNEYS, LITHOTRIPSIES) Gynecologic Surgery: No Hysterectomy: Yes Insulin Pump: No Joint Replacement: No Neurologic Surgery: Yes (2 LP shunts placed 08/12/17) Oral Surgery: No Pacemaker: No Thoracic Surgery: No Other Surgery: Yes (L KIDNEY (STENTS x 6)) Social History Alcohol Use: Yes Tobacco Use: No Substance Use: Yes (weed for nausea and pain) Allergies-Medications (Allergen,Severity, Reaction): Coded Allergies: Sulfa (Sulfonamide Antibiotics) (Verified Allergy, Severe, RASH, 07/27/17) amoxicillin (Verified Allergy, Severe, Anaphylaxis, 07/27/17) ketorolac (Verified Allergy, Severe, Anaphylaxis, 07/27/17) anaphylaxis per patient ibuprofen (Verified Allergy, Intermediate, HIVES, FACIAL SWELLING., 07/27/17 ) tramadol (Verified Allergy, Intermediate, HIVES, 07/27/17) hives, sewll up latex (Verified Allergy, Unknown, 07/27/17) penicillin G (Verified Allergy, Unknown, HIVES, 07/27/17) prochlorperazine (Verified Allergy, Unknown, HIVES, 07/27/17) sumatriptan (Verified Adverse Reaction, Severe, VOMITING PASSED OUT, ) Reported Meds & Prescriptions Reported Meds & Active Scripts Active Walker with Front Wheels (Device) 1 Mis Mis Ea .XX DIRECTED Morphine ER (Morphine Sulfate) 15 Mg Tab 15 Mg PO Q12HR Dilaudid (Hydromorphone HCl) 4 Mg Tab 4 Mg PO Q4H PRN Furosemide 20 Mg Tab 20 Mg PO DAILY Florastor (Saccharomyces Boulardii) 250 Mg Cap 250 Mg PO BID 28 Days Valium (Diazepam) 5 Mg Tab 5 Mg PO BID PRN 30 Days Oxycodone-Acetaminophen 10-325 (Oxycodone HCl/Acetaminophen) 10 Mg-325 Mg Tablet 1 Tab PO Q6H PRN 30 Days Meclizine (Meclizine HCl) 25 Mg Tab 25 Mg PO TID PRN 30 Days Lasix (Furosemide) 40 Mg Tab 40 Mg PO BID 30 Days Diamox Sequels ER 12 HR (Acetazolamide) 500 Mg Cap 500 Mg PO TID 30 Days Potassium Chloride ER (Potassium Chloride) 20 Meq Tab 20 Meq PO DAILY 30 Days Topamax (Topiramate) 50 Mg Tab 100 Mg PO BID 30 Days Reported Reglan (Metoclopramide HCl) 10 Mg Tab 10 Mg PO QID Review of Systems General / Constitutional: No: Fever Eyes: No: Visual changes HENT: No: Headaches Cardiovascular: Positive: Chest Pain or Discomfort Respiratory: No: Shortness of Breath Gastrointestinal: No: Abdominal Pain Genitourinary: No: Dysuria Musculoskeletal: No: Pain Skin: No Rash Neurologic: No: Weakness Psychiatric: No: Depression Endocrine: No: Polydipsia Hematologic/Lymphatic: No: Easy Bruising Physical Exam Narrative GENERAL: Morbidly obese well-developed patient in no apparent distress. SKIN: Focused skin assessment reveals no rash and nodules. Skin is Warm and dry. HEAD: Atraumatic. Normocephalic. EYES: Pupils equal and round. No scleral icterus. No injection or drainage. ENT: No nasal bleeding or discharge. Mucous membranes pink and moist. NECK: Trachea midline. No JVD. CARDIOVASCULAR: Regular rate and rhythm. No murmur appreciated. RESPIRATORY: No accessory muscle use. Clear to auscultation. Breath sounds equal bilaterally. GASTROINTESTINAL: Abdomen soft, non-tender, nondistended. Hepatic and splenic margins not palpable. MUSCULOSKELETAL: No obvious deformities. No clubbing. No cyanosis. No edema. I evaluated her 3 incisions. They are all covered with Steri-Strips. None of them have dehiscence or signs of wound infection. No objective abnormality in the area of the right rib cage that hurts her. It is tender there. Is reproducible with palpation. NEUROLOGICAL: Awake and alert. No obvious cranial nerve deficits. Motor grossly within normal limits. Normal speech. PSYCHIATRIC: Appropriate mood and affect; insight and judgment normal. Data Data Last Documented VS Vital Signs Date Time Temp Pulse Resp B/P (MAP) Pulse Ox O2 Delivery O2 Flow Rate FiO2 08/22/17 18:52 77 18 142/67 (92) 100 08/22/17 15:59 98.6 Orders Orders Chest, Single Ap (08/22/17 ) [facility] Medical Decision Making Medical Screen Exam Complete: Yes Emergency Medical Condition: Yes Medical Record Reviewed: Yes Differential Diagnosis Superficial nerve injury, wound infection, wound dehiscence Narrative Course I have reviewed the patient's electronic medical record. Patient has been here many times recently. She was here last on 19 August No objective findings on exam. I reviewed her chest x-ray which is normal. Stable for outpatient follow-up. Diagnosis Primary Impression: Rib pain on right side Additional Instructions: The patient was advised to follow up with their physician and return if they worsen. Med/Other Pt SpecificInfo: Other Disposition: 01 DISCHARGE HOME Condition: Stable Armand Agosto MD Aug 22, 2017 17:12
--- NOTE | 2017-08-22 17:33 | RADRPT ---
EXAM DATE/TIME: 08/22/2017 17:15 [facility] COMPARISON: CHEST SINGLE AP, August 19, 2017, 19:59. INDICATIONS : Right sided chest pain post shunt placement 10 days ago MEDICAL HISTORY : Renal calculi. Hypertension SURGICAL HISTORY : Cholecystectomy. Hysterectomy. ENCOUNTER: Initial ACUITY: 1 week PAIN SCORE: 10/10 LOCATION: Right chest FINDINGS: A single view of the chest demonstrates the lungs to be symmetrically aerated without evidence of mas s, infiltrate or effusion. The cardiomediastinal contours are unremarkable. Osseous structures are intact. CONCLUSION: Normal examination. Jaime Oakley MD on August 22, 2017 at 17:30 Board Certified Radiologist. This report was verified electronically.
[2017-08-22 18:52] VITALS: BP 142/67
== END 2017-08-22 20:14 | disposition home or self-care (01) ==
LOC: NEPC 15:55
DX: R07.81 Pleurodynia (principal)
CPT/HCPCS: 71045; 99283

== ENCOUNTER 2017-08-26 17:33 | Emergency (ER) | payer OTHER ==
[~2017-08-26] VITALS: Ht 154.9 cm; Wt 106.0 kg
[2017-08-26 17:37] VITALS: BP 119/76; PULSE 78; RESP 18; TEMP 98.6; O2SAT 100
[2017-08-26] MEDS ORDERED: SODIUM CHLOR 0.9% 1000 ML INJ 1,000 ML IV SCH (18:20)
--- NOTE | 2017-08-26 18:25 | PD ---
HPI Chief Complaint: Back/ Neck Pain or Injury Time Seen by Provider: 17:44 Travel History International Travel<30 days: No Contact w/Intl Traveler<30days: No Traveled to known affect area: No History of Present Illness HPI 32-year-old female presents emergency department for evaluation of right rib and right flank pain that has been persistent for 2 weeks. Patient states that she had an extensive surgery for lumboperitoneal shunt placement August 12 for her pseudotumor cerebri and her pain has worsened. Patient describes her pain as sharp, worse with movement. Says she developed some vomiting this morning so she has been able to keep down her pain medications. Denies fevers, chills, shortness of breath, abdominal pain. Says her last bowel movement was today which was normal. Says that she called her neurosurgeon's office Friday, Dr. Cerrato, and advised her to come to the emergency department if her pain worsens. Says that she has a follow-up with a Chandrakant MONTES on 1 PM. PFSH Past Medical History Hx Anticoagulant Therapy: No Arthritis: No Asthma: Yes Autoimmune Disease: No Blood Disorders: No Anxiety: No Depression: No Heart Rhythm Problems: No Cancer: No Cardiovascular Problems: No High Cholesterol: No Chemotherapy: No Chest Pain: No Congestive Heart Failure: No COPD: No Cerebrovascular Accident: No Diabetes: No Diminished Hearing: No Endocrine: No Gastrointestinal Disorders: No GERD: No Genitourinary: Yes (KIDNEY STONES) Headaches: Yes Hiatal Hernia: No Heparin Induced Thrombocytopen: No Hypertension: Yes (Idiopathic intracranial hypertension) Immune Disorder: No Implanted Vascular Access Dvce: No Kidney Stones: Yes Musculoskeletal: No Neurologic: Yes (headaches, Idiopathic intracranial hypertension) Psychiatric: No Reproductive: Yes (7 MISCARRIAGES) Respiratory: Yes (asthma) Immunizations Current: Yes Migraines: Yes Radiation Therapy: No Renal Failure: No Seizures: No Sickle Cell Disease: No Sleep Apnea: No Thyroid Disease: No Ulcer: No Tetanus Vaccination: < 5 Years ?: Not LMP: 08/23/17 : 8 Para: 1 Miscarriage: 7 Dilation and Curettage (D&C): Yes (x3 ) Past Surgical History Abdominal Surgery: No AICD: No Arteriovenous Shunt: No Cardiac Surgery: No Section: Yes Cholecystectomy: Yes Ear Surgery: No Endocrine Surgery: No Eye Surgery: No Genitourinary Surgery: Yes (STENTS KIDNEYS, LITHOTRIPSIES) Gynecologic Surgery: No Hysterectomy: Yes Insulin Pump: No Joint Replacement: No Neurologic Surgery: Yes (2 LP shunts placed 08/12/17) Oral Surgery: No Pacemaker: No Thoracic Surgery: No Other Surgery: Yes (L KIDNEY (STENTS x 6)) Social History Alcohol Use: Yes Tobacco Use: No Substance Use: Yes (weed for nausea and pain) Allergies-Medications (Allergen,Severity, Reaction): Coded Allergies: Sulfa (Sulfonamide Antibiotics) (Verified Allergy, Severe, RASH, 08/26/17) amoxicillin (Verified Allergy, Severe, Anaphylaxis, 08/26/17) ketorolac (Verified Allergy, Severe, Anaphylaxis, 08/26/17) anaphylaxis per patient ibuprofen (Verified Allergy, Intermediate, HIVES, FACIAL SWELLING., 08/26/17 ) tramadol (Verified Allergy, Intermediate, HIVES, 08/26/17) hives, sewll up latex (Verified Allergy, Unknown, 08/26/17) penicillin G (Verified Allergy, Unknown, HIVES, 08/26/17) prochlorperazine (Verified Allergy, Unknown, HIVES, 08/26/17) sumatriptan (Verified Adverse Reaction, Severe, VOMITING PASSED OUT, ) Reported Meds & Prescriptions Reported Meds & Active Scripts Active Zofran Odt (Ondansetron Odt) 4 Mg Tab 4 Mg SL Q8HR PRN 7 Days Walker with Front Wheels (Device) 1 Mis Mis Ea .XX DIRECTED Morphine ER (Morphine Sulfate) 15 Mg Tab 15 Mg PO Q12HR Dilaudid (Hydromorphone HCl) 4 Mg Tab 4 Mg PO Q4H PRN Furosemide 20 Mg Tab 20 Mg PO DAILY Florastor (Saccharomyces Boulardii) 250 Mg Cap 250 Mg PO BID 28 Days Valium (Diazepam) 5 Mg Tab 5 Mg PO BID PRN 30 Days Oxycodone-Acetaminophen 10-325 (Oxycodone HCl/Acetaminophen) 10 Mg-325 Mg Tablet 1 Tab PO Q6H PRN 30 Days Meclizine (Meclizine HCl) 25 Mg Tab 25 Mg PO TID PRN 30 Days Lasix (Furosemide) 40 Mg Tab 40 Mg PO BID 30 Days Diamox Sequels ER 12 HR (Acetazolamide) 500 Mg Cap 500 Mg PO TID 30 Days Potassium Chloride ER (Potassium Chloride) 20 Meq Tab 20 Meq PO DAILY 30 Days Topamax (Topiramate) 50 Mg Tab 100 Mg PO BID 30 Days Reported Reglan (Metoclopramide HCl) 10 Mg Tab 10 Mg PO QID Review of Systems Except as stated in HPI: all other systems reviewed are Neg Physical Exam Narrative GENERAL: Well-developed, obese SKIN: Focused skin assessment warm/dry. Well healing surgical lesions to the right flank, breast, low back without erythema or edema. HEAD: Atraumatic. Normocephalic. EYES: Pupils equal and round. No scleral icterus. No injection or drainage. ENT: No nasal bleeding or discharge. Mucous membranes pink and moist. NECK: Trachea midline. No JVD. CARDIOVASCULAR: Regular rate and rhythm. No murmur appreciated. RESPIRATORY: No accessory muscle use. Clear to auscultation. Breath sounds equal bilaterally. GASTROINTESTINAL: Abdomen soft, nondistended. Tenderness to palpation to the apparent soft tissue of the right upper flank area MUSCULOSKELETAL: No obvious deformities. No clubbing. No cyanosis. No edema. NEUROLOGICAL: Awake and alert. No obvious cranial nerve deficits. Motor grossly within normal limits. Normal speech. PSYCHIATRIC: Appropriate mood and affect; insight and judgment normal. Data Data Last Documented VS Vital Signs Date Time Temp Pulse Resp B/P (MAP) Pulse Ox O2 Delivery O2 Flow Rate FiO2 08/26/17 19:50 66 16 115/59 (77) 99 Room Air 08/26/17 17:37 98.6 Orders Orders Complete Blood Count With Diff (08/26/17 18:20) Comprehensive Metabolic Panel (08/26/17 18:20) Lipase (08/26/17 18:20) Prothrombin Time / Inr (Pt) (08/26/17 18:20) Act Partial Throm Time (Ptt) (08/26/17 18:20) Urinalysis - C+S If Indicated (08/26/17 18:20) Iv Access Insert/Monitor (08/26/17 18:20) Ecg Monitoring (08/26/17 18:20) Oximetry (08/26/17 18:20) Morphine Inj (Morphine Inj) (08/26/17 18:30) Ondansetron Inj (Zofran Inj) (08/26/17 18:30) Sodium Chlor 0.9% 1000 Ml Inj (Ns 1000 M (08/26/17 18:20) Hydromorphone Pf Inj (Dilaudid Pf Inj) (08/26/17 20:00) Ed Discharge Order (08/26/17 21:51) Labs Laboratory Tests Test 08/26/17 18:50 08/26/17 20:40 White Blood Count 10.3 TH/MM3 Red Blood Count 4.17 MIL/MM3 Hemoglobin 11.4 GM/DL Hematocrit 34.3 % Mean Corpuscular Volume 82.2 FL Mean Corpuscular Hemoglobin 27.4 PG Mean Corpuscular Hemoglobin Concent 33.4 % Red Cell Distribution Width 13.3 % Platelet Count 388 TH/MM3 Mean Platelet Volume 7.9 FL Neutrophils (%) (Auto) 56.5 % Lymphocytes (%) (Auto) 34.3 % Monocytes (%) (Auto) 6.5 % Eosinophils (%) (Auto) 2.3 % Basophils (%) (Auto) 0.4 % Neutrophils # (Auto) 5.8 TH/MM3 Lymphocytes # (Auto) 3.5 TH/MM3 Monocytes # (Auto) 0.7 TH/MM3 Eosinophils # (Auto) 0.2 TH/MM3 Basophils # (Auto) 0.0 TH/MM3 CBC Comment DIFF FINAL Differential Comment Prothrombin Time 10.0 SEC Prothromb Time International Ratio 1.0 RATIO Activated Partial Thromboplast Time 26.1 SEC Blood Urea Nitrogen 11 MG/DL Creatinine 0.98 MG/DL Random Glucose 91 MG/DL Total Protein 7.2 GM/DL Albumin 3.1 GM/DL Calcium Level 8.8 MG/DL Alkaline Phosphatase 72 U/L Aspartate Amino Transf (AST/SGOT) 13 U/L Alanine Aminotransferase (ALT/SGPT) 22 U/L Total Bilirubin 0.2 MG/DL Sodium Level 143 MEQ/L Potassium Level 3.8 MEQ/L Chloride Level 107 MEQ/L Carbon Dioxide Level 28.0 MEQ/L Anion Gap 8 MEQ/L Estimat Glomerular Filtration Rate 66 ML/MIN Lipase 72 U/L Urine Color LIGHT-YELLOW Urine Turbidity HAZY Urine pH 7.0 Urine Specific [place] 1.016 Urine Protein NEG mg/dL Urine Glucose (UA) NEG mg/dL Urine Ketones NEG mg/dL Urine Occult Blood SMALL Urine Nitrite NEG Urine Bilirubin NEG Urine Urobilinogen LESS THAN 2.0 MG/DL Urine Leukocyte Esterase NEG Urine RBC 2 /hpf Urine WBC LESS THAN 1 /hpf Urine Squamous Epithelial Cells 4 /hpf Urine Amorphous Sediment RARE Microscopic Urinalysis Comment CULT NOT INDICATED MDM Medical Decision Making Medical Screen Exam Complete: Yes Emergency Medical Condition: Yes Differential Diagnosis UTI, pyelonephritis, nephrolithiasis, neuropathy, muscle spasms Narrative Course 32-year-old female presents emergency department for evaluation of right rib and right flank pain that has been persistent for 2 weeks. Patient states that she had an extensive surgery for lumboperitoneal shunt placement August 12 for her pseudotumor cerebri and her pain has worsened. Patient describes her pain as sharp, worse with movement. Says she developed some vomiting this morning so she has been able to keep down her pain medications. Denies fevers, chills, shortness of breath, abdominal pain. Says her last bowel movement was today which was normal. Says that she called her neurosurgeon's office Friday, Dr. Cerrato, and advised her to come to the emergency department if her pain worsens. Says that she has a follow-up with a PAChandrakant on 1 PM. At the review the EMR, patient was last here August 22 and August 18. Patient had CT abdomen pelvis which ruled out emergent processes. In addition, Dr. Cerrato was consulted August 18 and advised to follow-up as an outpatient. Vital signs are stable. Physical exam findings consistent with tenderness palpation of the right ribs and soft tissue of the right flank. Obvious pain with movement. Morphine and zofran administered for pain and nausea. CBC & BMP Diagram 08/26/17 18:50 Total Protein 7.2, Albumin 3.1 L, Calcium Level 8.8, Alkaline Phosphatase 72, Aspartate Amino Transf (AST/SGOT) 13 L, Alanine Aminotransferase (ALT/SGPT) 22, Total Bilirubin 0.2 Urinalysis for evidence of urinary tract infection. Dilaudid 0.5 mg administered. She is advised to follow-up with a neurosurgeon on . Take Zofran as needed for nausea. Advised to use medications as prescribed. Diagnosis Primary Impression: Flank pain Additional Impression: Neuropathy Referrals: Neurosurgeon Additional Instructions: Follow-up with a neurosurgeon as discussed. Take her home medications as prescribed. You been discharged with Zofran for nausea. Scripts Ondansetron Odt (Zofran Odt) 4 Mg Tab 4 MG SL Q8HR Y for Nausea/Vomiting for 7 Days, #30 TAB 0 Refills Prov: Eduard Young MD 08/26/17 Disposition: 01 DISCHARGE HOME Condition: Stable Tisha Alicia August 26, 2017 18:25
[2017-08-26] MEDS ORDERED: ONDANSETRON HCL 4 MG/2 ML VIAL IVP ONE (18:30)
[2017-08-26] MEDS ORDERED: MORPHINE SULFATE 4 MG/ML INJ IV PUSH ONE (18:30)
[2017-08-26 19:17] LABS: AUTOMATED NEUTROPHIL # 5.8 TH/MM3 (1.8-7.7); BASOPHIL % 0.4 % (0.0-2.0); EOSINOPHIL # 0.2 TH/MM3 (0-0.4); EOSINOPHIL % 2.3 % (0.0-4.0); HEMATOCRIT 34.3 % (35.0-46.0); HEMOGLOBIN 11.4 GM/DL (11.6-15.3); LYMPH % 34.3 % (9.0-44.0); LYMPHOCYTE # 3.5 TH/MM3 (1.0-4.8); MEAN CELL VOLUME 82.2 FL (80.0-100.0); MEAN CORPUSCULAR HEMOGLOBIN 27.4 PG (27.0-34.0); MEAN CORPUSCULAR HGB CONC 33.4 % (32.0-36.0); MEAN PLATELET VOLUME 7.9 FL (7.0-11.0); MONO % 6.5 % (0.0-8.0); MONOCYTE # 0.7 TH/MM3 (0-0.9); NEUT % 56.5 % (16.0-70.0); PLATELET COUNT 388 TH/MM3 (150-450); RED BLOOD COUNT 4.17 MIL/MM3 (4.00-5.30); RED CELL DISTRIBUTION WIDTH 13.3 % (11.6-17.2); WHITE BLOOD COUNT 10.3 TH/MM3 (4.0-11.0)
[2017-08-26 19:21] LABS: ALBUMIN 3.1 GM/DL (3.4-5.0); AST (GOT) 13 U/L (15-37); BLOOD UREA NITROGEN 11 MG/DL (7-18); CALCIUM 8.8 MG/DL (8.5-10.1); CHLORIDE 107 MEQ/L (98-107); CREATININE 0.98 MG/DL (0.50-1.00); GLOMERULAR FILTRATION RATE 66 ML/MIN (>89); GLUCOSE,RANDOM 91 MG/DL (74-106); SODIUM (NA) 143 MEQ/L (136-145)
[2017-08-26 19:23] LABS: ALT (GPT) 22 U/L (10-53)
[2017-08-26 19:24] LABS: ALKALINE PHOSPHATASE 72 U/L (45-117); TOTAL BILIRUBIN ADULT 0.2 MG/DL (0.2-1.0); TOTAL PROTEIN 7.2 GM/DL (6.4-8.2)
[2017-08-26 19:50] VITALS: BP 115/59; PULSE 66; RESP 16; O2SAT 99
[2017-08-26] MEDS ORDERED: HYDROmorphone HCL PF 0.5 MG/0.5 ML SYRINGE IV PUSH ONE (20:00)
[2017-08-26 21:26] LABS: AMORPHOUS SEDIMENT, URINE RARE; BILIRUBIN, URINE NEG (NEG); BLOOD, URINE SMALL (NEG); GLUCOSE,URINE NEG (NEG); KETONE, URINE NEG (NEG); NITRITE,URINE NEG (NEG); SQUAMOUS EPITHELIAL CELL URINE 4 /hpf (0-5); URINE COLOR LIGHT-YELLOW (YELLW/STRAW); URINE LEUKOCYTE ESTERASE NEG (NEG)
[2017-08-26] MEDS ORDERED: ZOFR4TAB3 SL (21:53)
[2017-08-26 22:20] VITALS: BP 120/75
[2017-09-02] MEDS ORDERED: ONDA4TAB7 SL (10:34)
== END 2017-08-26 22:41 | disposition home or self-care (01) ==
LOC: NEPC 17:33
DX: R10.9 Unspecified abdominal pain (principal); G62.9 Polyneuropathy, unspecified
CPT/HCPCS: 80053; 81001; 83690; 85025; 85610; 85730; 96374; 96375; 99284; J1170; J2270; J2405; J7030

== ENCOUNTER 2017-08-28 10:38 | Emergency (ER) | payer MEDICAID, OTHER ==
[~2017-08-28] VITALS: Ht 154.9 cm; Wt 100.0 kg
[~2017-08-28 10:38] MED LIST changes: +ZOFR4TAB3 SL
[2017-08-28 10:52] VITALS: BP 142/65; PULSE 90; RESP 18; TEMP 99.4; O2SAT 99
--- NOTE | 2017-08-28 11:23 | PD ---
HPI Chief Complaint: Pain: Acute or Chronic Time Seen by Provider: 11:04 Travel History International Travel<30 days: No Contact w/Intl Traveler<30days: No Traveled to known affect area: No History of Present Illness HPI 32yo F with PMH of pseudotumor cerebri s/p lumboperitoneal shunt placement here with c/o right flank pain again. +Nausea. Denies any fever, chest pain, sob, focal weakness or numbness. Pt saw Dr. Cerrato's PA yesterday and they think it is a nerve pain and that they are coming up with a plan. Pt has been here 5 times since her surgery 08/12/17. She was here last 2 days ago on 08/26/17. I have seen her for this same pain as well. Her last CT a/p was normal at 08/18/17. Pt has dilaudid and morphine for pain at home. Said she vomited after dilaudid last night and has not tried to take it again. However, she took morphine at 3am and not vomiting. PFSH Past Medical History Hx Anticoagulant Therapy: No Arthritis: No Asthma: Yes Autoimmune Disease: No Blood Disorders: No Anxiety: No Depression: No Heart Rhythm Problems: No Cancer: No Cardiovascular Problems: No High Cholesterol: No Chemotherapy: No Chest Pain: No Congestive Heart Failure: No COPD: No Cerebrovascular Accident: No Diabetes: No Diminished Hearing: No Endocrine: No Gastrointestinal Disorders: No GERD: No Genitourinary: Yes (KIDNEY STONES) Headaches: Yes Hiatal Hernia: No Heparin Induced Thrombocytopen: No Hypertension: Yes (Idiopathic intracranial hypertension) Immune Disorder: No Implanted Vascular Access Dvce: No Kidney Stones: Yes Musculoskeletal: No Neurologic: Yes (headaches, Idiopathic intracranial hypertension) Psychiatric: No Reproductive: Yes (7 MISCARRIAGES) Respiratory: Yes (asthma) Immunizations Current: Yes Migraines: Yes Radiation Therapy: No Renal Failure: No Seizures: No Sickle Cell Disease: No Sleep Apnea: No Thyroid Disease: No Ulcer: No ?: Not : 8 Para: 1 Miscarriage: 7 Dilation and Curettage (D&C): Yes (x3 ) Past Surgical History Abdominal Surgery: No AICD: No Arteriovenous Shunt: No Cardiac Surgery: No Section: Yes Cholecystectomy: Yes Ear Surgery: No Endocrine Surgery: No Eye Surgery: No Genitourinary Surgery: Yes (STENTS KIDNEYS, LITHOTRIPSIES) Gynecologic Surgery: No Hysterectomy: Yes Insulin Pump: No Joint Replacement: No Neurologic Surgery: Yes (2 LP shunts placed 08/12/17) Oral Surgery: No Pacemaker: No Thoracic Surgery: No Other Surgery: Yes (L KIDNEY (STENTS x 6)) Social History Alcohol Use: Yes Tobacco Use: No Substance Use: Yes (weed for nausea and pain) Allergies-Medications (Allergen,Severity, Reaction): Coded Allergies: Sulfa (Sulfonamide Antibiotics) (Verified Allergy, Severe, RASH, 08/28/17) amoxicillin (Verified Allergy, Severe, Anaphylaxis, 08/28/17) ketorolac (Verified Allergy, Severe, Anaphylaxis, 08/28/17) anaphylaxis per patient ibuprofen (Verified Allergy, Intermediate, HIVES, FACIAL SWELLING., 08/28/17 ) tramadol (Verified Allergy, Intermediate, HIVES, 08/28/17) hives, sewll up latex (Verified Allergy, Unknown, 08/28/17) penicillin G (Verified Allergy, Unknown, HIVES, 08/28/17) prochlorperazine (Verified Allergy, Unknown, HIVES, 08/28/17) sumatriptan (Verified Adverse Reaction, Severe, VOMITING PASSED OUT, ) Reported Meds & Prescriptions Reported Meds & Active Scripts Active Zofran Odt (Ondansetron Odt) 4 Mg Tab 4 Mg SL Q8HR PRN 7 Days Walker with Front Wheels (Device) 1 Mis Mis Ea .XX DIRECTED Morphine ER (Morphine Sulfate) 15 Mg Tab 15 Mg PO Q12HR Dilaudid (Hydromorphone HCl) 4 Mg Tab 4 Mg PO Q4H PRN Meclizine (Meclizine HCl) 25 Mg Tab 25 Mg PO TID PRN 30 Days Lasix (Furosemide) 40 Mg Tab 40 Mg PO BID 30 Days Diamox Sequels ER 12 HR (Acetazolamide) 500 Mg Cap 500 Mg PO TID 30 Days Topamax (Topiramate) 50 Mg Tab 100 Mg PO BID 30 Days Review of Systems Except as stated in HPI: all other systems reviewed are Neg Physical Exam Narrative GENERAL: 32yo F in mild distress. SKIN: Focused skin assessment warm/dry. HEAD: Atraumatic. Normocephalic. CARDIOVASCULAR: Regular rate and rhythm. No murmur appreciated. RESPIRATORY: No accessory muscle use. Clear to auscultation. Breath sounds equal bilaterally. GASTROINTESTINAL: Abdomen soft, +TTP right mid abdomen. No rebound tenderness or guarding. MUSCULOSKELETAL: No obvious deformities. No clubbing. No cyanosis. No edema. NEUROLOGICAL: Awake and alert. No obvious cranial nerve deficits. Motor grossly within normal limits. Normal speech. PSYCHIATRIC: Appropriate mood and affect; insight and judgment normal. Data Data Last Documented VS Vital Signs Date Time Temp Pulse Resp B/P (MAP) Pulse Ox O2 Delivery O2 Flow Rate FiO2 08/28/17 10:52 99.4 90 18 142/65 (90) 99 Orders Orders Complete Blood Count With Diff (08/28/17 11:18) Comprehensive Metabolic Panel (08/28/17 11:18) Lipase (08/28/17 11:18) Ondansetron Inj (Zofran Inj) (08/28/17 11:30) Morphine Inj (Morphine Inj) (08/28/17 11:30) Ed Urine Pregnancytest Poc (08/28/17 11:24) Urinalysis - C+S If Indicated (08/28/17 11:24) Ondansetron Inj (Zofran Inj) (08/28/17 13:15) Labs Laboratory Tests Test 08/28/17 11:37 08/28/17 12:06 White Blood Count 9.2 TH/MM3 Red Blood Count 4.28 MIL/MM3 Hemoglobin 11.6 GM/DL Hematocrit 35.1 % Mean Corpuscular Volume 82.0 FL Mean Corpuscular Hemoglobin 27.1 PG Mean Corpuscular Hemoglobin Concent 33.0 % Red Cell Distribution Width 13.5 % Platelet Count 407 TH/MM3 Mean Platelet Volume 7.9 FL Neutrophils (%) (Auto) 68.6 % Lymphocytes (%) (Auto) 23.0 % Monocytes (%) (Auto) 6.4 % Eosinophils (%) (Auto) 1.3 % Basophils (%) (Auto) 0.7 % Neutrophils # (Auto) 6.3 TH/MM3 Lymphocytes # (Auto) 2.1 TH/MM3 Monocytes # (Auto) 0.6 TH/MM3 Eosinophils # (Auto) 0.1 TH/MM3 Basophils # (Auto) 0.1 TH/MM3 CBC Comment DIFF FINAL Differential Comment Blood Urea Nitrogen 12 MG/DL Creatinine 0.61 MG/DL Random Glucose 104 MG/DL Total Protein 7.3 GM/DL Albumin 3.2 GM/DL Calcium Level 9.4 MG/DL Alkaline Phosphatase 77 U/L Aspartate Amino Transf (AST/SGOT) 12 U/L Alanine Aminotransferase (ALT/SGPT) 22 U/L Total Bilirubin 0.2 MG/DL Sodium Level 142 MEQ/L Potassium Level 3.9 MEQ/L Chloride Level 107 MEQ/L Carbon Dioxide Level 27.2 MEQ/L Anion Gap 8 MEQ/L Estimat Glomerular Filtration Rate 114 ML/MIN Lipase 80 U/L Urine Color YELLOW Urine Turbidity HAZY Urine pH 7.0 Urine Specific [place] 1.017 Urine Protein NEG mg/dL Urine Glucose (UA) NEG mg/dL Urine Ketones NEG mg/dL Urine Occult Blood TRACE Urine Nitrite NEG Urine Bilirubin NEG Urine Urobilinogen LESS THAN 2.0 MG/DL Urine Leukocyte Esterase MOD Urine RBC 2 /hpf Urine WBC 4 /hpf Urine Squamous Epithelial Cells 16 /hpf Urine Bacteria RARE /hpf Urine Hyaline Casts 2 /lpf Microscopic Urinalysis Comment CULT NOT INDICATED MDM Medical Decision Making Medical Screen Exam Complete: Yes Emergency Medical Condition: Yes Differential Diagnosis Chronic pain vs. malingering Narrative Course 32yo F with chronic pain since her lumboperitoneal shunt placement. Abdominal exam is benign with mild right mid abdominal tenderness to palpation. Labs reviewed, no leukocytosis. H/H normal. Lipase normal. CMP unremarkable. UA showed WBC 4. Culture not indicated. Urine negative. Pt given morphine and zofran and pain has improved. Nausea has improved as well. Tolerating PO. Will have pt follow up with Dr. Cerrato as outpatient. Diagnosis Primary Impression: Abdominal pain Qualified Codes: R10.9 - Unspecified abdominal pain Patient Instructions: General Instructions Departure Forms: Tests/Procedures Additional Instructions: Please follow up with Dr. Cerrato as outpatient. Return to the ED if symptoms worsen. Med/Other Pt SpecificInfo: Prescription(s) given Scripts Ondansetron Odt (Zofran Odt) 4 Mg Tab 4 MG SL Q12HR Y for Nausea/Vomiting, #6 TAB 0 Refills Prov: Sari Marquez 08/28/17 Disposition: 01 DISCHARGE HOME Condition: Stable MarquezBeverly newmantianna PAGE August 28, 2017 11:23
[2017-08-28] MEDS ORDERED: MORPHINE SULFATE 8 MG/ML INJ IV PUSH ONE (11:30)
[2017-08-28] MEDS ORDERED: ONDANSETRON HCL 4 MG/2 ML VIAL IV PUSH ONE ×2 (11:30→13:15)
[2017-08-28 11:53] LABS: AUTOMATED NEUTROPHIL # 6.3 TH/MM3 (1.8-7.7); BASOPHIL # 0.1 TH/MM3 (0-0.2); BASOPHIL % 0.7 % (0.0-2.0); EOSINOPHIL # 0.1 TH/MM3 (0-0.4); EOSINOPHIL % 1.3 % (0.0-4.0); HEMATOCRIT 35.1 % (35.0-46.0); HEMOGLOBIN 11.6 GM/DL (11.6-15.3); LYMPHOCYTE # 2.1 TH/MM3 (1.0-4.8); MEAN CORPUSCULAR HEMOGLOBIN 27.1 PG (27.0-34.0); MEAN PLATELET VOLUME 7.9 FL (7.0-11.0); MONO % 6.4 % (0.0-8.0); MONOCYTE # 0.6 TH/MM3 (0-0.9); NEUT % 68.6 % (16.0-70.0); PLATELET COUNT 407 TH/MM3 (150-450); RED BLOOD COUNT 4.28 MIL/MM3 (4.00-5.30); RED CELL DISTRIBUTION WIDTH 13.5 % (11.6-17.2); WHITE BLOOD COUNT 9.2 TH/MM3 (4.0-11.0)
[2017-08-28 12:08] LABS: ALBUMIN 3.2 GM/DL (3.4-5.0); AST (GOT) 12 U/L (15-37); BICARBONATE 27.2 MEQ/L (21.0-32.0); BLOOD UREA NITROGEN 12 MG/DL (7-18); CALCIUM 9.4 MG/DL (8.5-10.1); CHLORIDE 107 MEQ/L (98-107); CREATININE 0.61 MG/DL (0.50-1.00); GLOMERULAR FILTRATION RATE 114 ML/MIN (>89); GLUCOSE,RANDOM 104 MG/DL (74-106); SODIUM (NA) 142 MEQ/L (136-145)
[2017-08-28 12:09] LABS: ALT (GPT) 22 U/L (10-53)
[2017-08-28 12:11] LABS: ALKALINE PHOSPHATASE 77 U/L (45-117); TOTAL BILIRUBIN ADULT 0.2 MG/DL (0.2-1.0); TOTAL PROTEIN 7.3 GM/DL (6.4-8.2)
[2017-08-28 12:46] LABS: BACTERIA, URINE RARE /hpf; BILIRUBIN, URINE NEG (NEG); BLOOD, URINE TRACE (NEG); GLUCOSE,URINE NEG (NEG); HYALINE CAST, URINE 2 /lpf (RARE); KETONE, URINE NEG (NEG); NITRITE,URINE NEG (NEG); SQUAMOUS EPITHELIAL CELL URINE 16 /hpf (0-5); URINE COLOR YELLOW (YELLW/STRAW); URINE LEUKOCYTE ESTERASE MOD (NEG)
[2017-08-28] MEDS ORDERED: ZOFR4TAB3 SL (13:42)
[2017-09-02] MEDS ORDERED: ONDA4TAB7 SL (10:34)
== END 2017-08-28 14:26 | disposition home or self-care (01) ==
LOC: NEPD 10:38
DX: R10.9 Unspecified abdominal pain (principal)
CPT/HCPCS: 80053; 81001; 83690; 84703; 85025; 96374; 96375; 99284; J2270; J2405

== ENCOUNTER 2017-08-31 11:58 | Emergency (ER) | payer MEDICAID ==
[~2017-08-31] VITALS: Ht 154.9 cm; Wt 105.5 kg
[~2017-08-31 11:58] MED LIST changes: -DIAZ5 PO; -FLOR250C PO; -FURO20TA PO; -OXYC1TAB36 PO; -POTA-163 PO; -REGL10TA5 PO
[2017-08-31 11:59] VITALS: BP 160/103; PULSE 96; RESP 18; TEMP 98.3; O2SAT 100
--- NOTE | 2017-08-31 13:11 | PD ---
HPI Chief Complaint: Abdominal Pain Time Seen by Provider: 12:23 Travel History International Travel<30 days: No Contact w/Intl Traveler<30days: No Traveled to known affect area: No History of Present Illness HPI Patient is a 32-year-old female who returns to the emergency room with complaints of abdominal pain. Patient reports that she has history of pseudotumor cerebri, patient's neurologist is Dr. Haddad, her neurosurgeon is Dr. Cerrato. Patient reports that she recently had lumboperitoneal shunt placed on August 12, 2017 as she was having migraines from her pseudotumor cerebri. Patient reports that since then, she has been having abdominal pain, she did follow-up with Dr. Cerrato's PA on Friday and was told that they were concerned that they nerve may have been oversewn causing her abdominal pain. Patient reports that she has been to the emergency room multiple times for this, patient reports no relief at home. Patient here for pain relief after her shunt was placed on August 12, 2017. Patient with no fever chills, no headaches or dizziness at this time. PFSH Past Medical History Hx Anticoagulant Therapy: No Arthritis: No Asthma: Yes Autoimmune Disease: No Blood Disorders: No Anxiety: No Depression: No Heart Rhythm Problems: No Cancer: No Cardiovascular Problems: No High Cholesterol: No Chemotherapy: No Chest Pain: No Congestive Heart Failure: No COPD: No Cerebrovascular Accident: No Diabetes: No Diminished Hearing: No Endocrine: No Gastrointestinal Disorders: No GERD: No Genitourinary: Yes (KIDNEY STONES) Headaches: Yes Hiatal Hernia: No Heparin Induced Thrombocytopen: No Hypertension: Yes (Idiopathic intracranial hypertension) Immune Disorder: No Implanted Vascular Access Dvce: No Kidney Stones: Yes Musculoskeletal: No Neurologic: Yes (headaches, Idiopathic intracranial hypertension) Psychiatric: No Reproductive: Yes (7 MISCARRIAGES) Respiratory: Yes (asthma) Immunizations Current: Yes Migraines: Yes Radiation Therapy: No Renal Failure: No Seizures: No Sickle Cell Disease: No Sleep Apnea: No Thyroid Disease: No Ulcer: No ?: Not LMP: 08/23/17 : 8 Para: 1 Miscarriage: 7 Dilation and Curettage (D&C): Yes (x3 ) Past Surgical History Abdominal Surgery: No AICD: No Arteriovenous Shunt: No Cardiac Surgery: No Section: Yes Cholecystectomy: Yes Ear Surgery: No Endocrine Surgery: No Eye Surgery: No Genitourinary Surgery: Yes (STENTS KIDNEYS, LITHOTRIPSIES) Gynecologic Surgery: No Hysterectomy: Yes Insulin Pump: No Joint Replacement: No Neurologic Surgery: Yes (2 LP shunts placed 08/12/17) Oral Surgery: No Pacemaker: No Thoracic Surgery: No Other Surgery: Yes (L KIDNEY (STENTS x 6)) Social History Alcohol Use: No Tobacco Use: Yes Substance Use: Yes (weed for nausea and pain) Allergies-Medications (Allergen,Severity, Reaction): Coded Allergies: Sulfa (Sulfonamide Antibiotics) (Verified Allergy, Severe, RASH, 08/31/17) amoxicillin (Verified Allergy, Severe, Anaphylaxis, 08/31/17) ketorolac (Verified Allergy, Severe, Anaphylaxis, 08/31/17) anaphylaxis per patient ibuprofen (Verified Allergy, Intermediate, HIVES, FACIAL SWELLING., 08/31/17 ) tramadol (Verified Allergy, Intermediate, HIVES, 08/31/17) hives, sewll up latex (Verified Allergy, Unknown, 08/31/17) penicillin G (Verified Allergy, Unknown, HIVES, 08/31/17) prochlorperazine (Verified Allergy, Unknown, HIVES, 08/31/17) sumatriptan (Verified Adverse Reaction, Severe, VOMITING PASSED OUT, ) Reported Meds & Prescriptions Reported Meds & Active Scripts Active Zofran Odt (Ondansetron Odt) 4 Mg Tab 4 Mg SL Q12HR PRN Zofran Odt (Ondansetron Odt) 4 Mg Tab 4 Mg SL Q8HR PRN 7 Days Walker with Front Wheels (Device) 1 Mis Mis Ea .XX DIRECTED Morphine ER (Morphine Sulfate) 15 Mg Tab 15 Mg PO Q12HR Meclizine (Meclizine HCl) 25 Mg Tab 25 Mg PO TID PRN 30 Days Lasix (Furosemide) 40 Mg Tab 40 Mg PO BID 30 Days Diamox Sequels ER 12 HR (Acetazolamide) 500 Mg Cap 500 Mg PO TID 30 Days Topamax (Topiramate) 50 Mg Tab 100 Mg PO BID 30 Days Review of Systems General / Constitutional: No: Fever Eyes: No: Visual changes HENT: No: Headaches Cardiovascular: No: Chest Pain or Discomfort Respiratory: No: Shortness of Breath Gastrointestinal: Positive: Nausea, Vomiting, Abdominal Pain, No: Diarrhea Genitourinary: No: Dysuria Musculoskeletal: No: Pain Skin: No Rash Neurologic: No: Weakness Psychiatric: No: Depression Endocrine: No: Polydipsia Hematologic/Lymphatic: No: Easy Bruising Physical Exam Narrative GENERAL: mild distress SKIN: Focused skin assessment warm/dry. HEAD: Atraumatic. Normocephalic. EYES: Pupils equal and round. No scleral icterus. No injection or drainage. ENT: No nasal bleeding or discharge. Mucous membranes pink and moist. NECK: Trachea midline. No JVD. CARDIOVASCULAR: Regular rate and rhythm. No murmur appreciated. RESPIRATORY: No accessory muscle use. Clear to auscultation. Breath sounds equal bilaterally. GASTROINTESTINAL: Abdomen soft, mildly tender to upper abdomen, nondistended. Hepatic and splenic margins not palpable. MUSCULOSKELETAL: No obvious deformities. No clubbing. No cyanosis. No edema. NEUROLOGICAL: Awake and alert. No obvious cranial nerve deficits. Motor grossly within normal limits. Normal speech. PSYCHIATRIC: Appropriate mood and affect; insight and judgment normal. Data Data Last Documented VS Vital Signs Date Time Temp Pulse Resp B/P (MAP) Pulse Ox O2 Delivery O2 Flow Rate FiO2 08/31/17 11:59 98.3 96 18 160/103 (122) 100 Orders Orders Basic Metabolic Panel (Bmp) (08/31/17 13:08) Complete Blood Count With Diff (08/31/17 13:08) Iv Access Insert/Monitor (08/31/17 13:08) Ecg Monitoring (08/31/17 13:08) Ondansetron Inj (Zofran Inj) (08/31/17 13:45) Acetaminophen 1000 Mg/100 Ml (Ofirmev 10 (08/31/17 14:45) Labs Laboratory Tests Test 08/31/17 12:50 White Blood Count 11.1 TH/MM3 Red Blood Count 4.46 MIL/MM3 Hemoglobin 12.3 GM/DL Hematocrit 36.5 % Mean Corpuscular Volume 81.9 FL Mean Corpuscular Hemoglobin 27.6 PG Mean Corpuscular Hemoglobin Concent 33.6 % Red Cell Distribution Width 13.3 % Platelet Count 355 TH/MM3 Mean Platelet Volume 8.6 FL Neutrophils (%) (Auto) 62.1 % Lymphocytes (%) (Auto) 28.3 % Monocytes (%) (Auto) 6.8 % Eosinophils (%) (Auto) 2.0 % Basophils (%) (Auto) 0.8 % Neutrophils # (Auto) 6.9 TH/MM3 Lymphocytes # (Auto) 3.1 TH/MM3 Monocytes # (Auto) 0.8 TH/MM3 Eosinophils # (Auto) 0.2 TH/MM3 Basophils # (Auto) 0.1 TH/MM3 CBC Comment DIFF FINAL Differential Comment Blood Urea Nitrogen 11 MG/DL Creatinine 0.57 MG/DL Random Glucose 101 MG/DL Calcium Level 9.0 MG/DL Sodium Level 141 MEQ/L Potassium Level 4.1 MEQ/L Chloride Level 106 MEQ/L Carbon Dioxide Level 26.7 MEQ/L Anion Gap 8 MEQ/L Estimat Glomerular Filtration Rate 123 ML/MIN MDM Medical Decision Making Medical Screen Exam Complete: Yes Emergency Medical Condition: Yes Medical Record Reviewed: Yes Interpretation(s) Vital Signs Date Time Temp Pulse Resp B/P (MAP) Pulse Ox O2 Delivery O2 Flow Rate FiO2 08/31/17 11:59 98.3 96 18 160/103 (122) 100 Differential Diagnosis Surgical complication, electrolyte abnormality Narrative Course 32-year-old female who is status post lumbar peritoneal shunt for treatment of pseudotumor cerebri, return to the emergency room with complaints of abdominal pain status post shunt. Patient has been seen in the emergency room multiple times with similar complaints, she did have a CT of abdomen pelvis on August 18, 2017 which was benign. Call made to neurosurgery to review case During the course of the patients emergency department visit, the patients history, examination, and differential diagnosis were reviewed with the patient. The patient was placed on a secured entrance monitor with oximetry and frequent blood pressure monitoring. The patient had an IV access obtained and blood work sent for analysis. Case reviewed with Dr. Fried - patient can be followed up as outpatient for further interventions Patient reevaluated, patient feeling better. She will follow-up with her neurosurgeon this week, she will return to the emergency room as needed. Diagnosis Primary Impression: Abdominal pain Qualified Codes: R10.10 - Upper abdominal pain, unspecified Patient Instructions: General Instructions, Narcotic given in the ED Additional Instructions: Please follow up with your neurosurgeon this week Please follow up with your primary care doctor in 2-3 days Return to the ER if symptoms worsen or progress Return to the ER as needed Disposition: 01 DISCHARGE HOME Condition: Stable Sharyn Cheung DO August 31, 2017 13:11
[2017-08-31 13:21] LABS: AUTOMATED NEUTROPHIL # 6.9 TH/MM3 (1.8-7.7); BASOPHIL # 0.1 TH/MM3 (0-0.2); BASOPHIL % 0.8 % (0.0-2.0); EOSINOPHIL # 0.2 TH/MM3 (0-0.4); HEMATOCRIT 36.5 % (35.0-46.0); HEMOGLOBIN 12.3 GM/DL (11.6-15.3); LYMPH % 28.3 % (9.0-44.0); LYMPHOCYTE # 3.1 TH/MM3 (1.0-4.8); MEAN CELL VOLUME 81.9 FL (80.0-100.0); MEAN CORPUSCULAR HEMOGLOBIN 27.6 PG (27.0-34.0); MEAN CORPUSCULAR HGB CONC 33.6 % (32.0-36.0); MEAN PLATELET VOLUME 8.6 FL (7.0-11.0); MONO % 6.8 % (0.0-8.0); MONOCYTE # 0.8 TH/MM3 (0-0.9); NEUT % 62.1 % (16.0-70.0); PLATELET COUNT 355 TH/MM3 (150-450); RED BLOOD COUNT 4.46 MIL/MM3 (4.00-5.30); RED CELL DISTRIBUTION WIDTH 13.3 % (11.6-17.2); WHITE BLOOD COUNT 11.1 TH/MM3 (4.0-11.0)
[2017-08-31 13:36] LABS: BICARBONATE 26.7 MEQ/L (21.0-32.0); CREATININE 0.57 MG/DL (0.50-1.00)
[2017-08-31] MEDS ORDERED: ONDANSETRON HCL 4 MG/2 ML VIAL IV PUSH ONE (13:45)
[2017-08-31] MEDS ORDERED: ACETAMINOPHEN 1000 MG/100 ML 65 ML IV ONE (14:45)
[2017-09-02] MEDS ORDERED: ONDA4TAB7 SL (10:34)
== END 2017-08-31 17:20 | disposition home or self-care (01) ==
LOC: NEPC 11:58
DX: R10.10 Upper abdominal pain, unspecified (principal); Z72.0 Tobacco use
CPT/HCPCS: 80048; 85025; 96374; 96375; 99284; J0131; J2405

== ENCOUNTER 2017-09-02 09:55 | Emergency (ER) | payer MEDICAID | END 2017-09-02 11:09 | disposition home or self-care (01) | LOC: NEPD 09:55 | DX: R10.9 Unspecified abdominal pain (principal); F17.200 Nicotine dependence, unspecified, uncomplicated | CPT/HCPCS: 99283 ==

== ENCOUNTER 2017-09-02 19:40 | Observation (INO) | payer MEDICAID, OTHER ==
[~2017-09-02] VITALS: Ht 154.9 cm; Wt 113.8 kg
[~2017-09-02 19:40] MED LIST changes: -DILA4TAB10 PO; +ONDA4TAB7 SL
[2017-09-02 20:54] VITALS: BP 131/89; PULSE 87; RESP 18; TEMP 98.2; O2SAT 97
--- NOTE | 2017-09-02 21:25 | PD ---
HPI Chief Complaint: Abdominal Pain Time Seen by Provider: 21:18 Travel History International Travel<30 days: No Contact w/Intl Traveler<30days: No Traveled to known affect area: No History of Present Illness HPI The patient is a 32 year old female who presents to the [facility] emergency department with a history of pain under the right breast that is been present since her LP shunt was placed by Dr. Cerrato on August 12. She reports that initially it was mild and felt like typical postoperative pain, however since Friday it is greatly worsened. She reports that the pain is now to 10 out of 10 in severity. She reports that the pain is constant. She reports the pain is sharp in character. She reports that is worse with movement. She reports that the pain radiates to the right side of the abdomen. She reports that she has had nausea and vomiting since Friday associated with this. She reports that she has had nausea and vomiting 4 today. She denies having any diarrhea. Her last bowel movement was earlier today. The patient reports that she had the shunt placed related to idiopathic intracranial hypertension. She reports that she saw in pr's office earlier today and he sent her to the emergency department for admission. On review of systems otherwise, the patient denies having any known recent fevers, cough or congestion, neck pain, shortness of breath, urinary symptoms, or neurologic symptoms. [facility] Past Medical History Narrative Medical The patient's past medical history is significant for a history of chronic headaches that are reportedly improved after treatment with a shunt for idiopathic intracranial hypertension, history of seizures, history of MRSA skin infections, history of asthma, history of kidney stones. Hx Anticoagulant Therapy: No Arthritis: No Asthma: Yes Autoimmune Disease: No Blood Disorders: No Anxiety: No Depression: No Heart Rhythm Problems: No Cancer: No Cardiovascular Problems: No High Cholesterol: No Chemotherapy: No Chest Pain: No Congestive Heart Failure: No COPD: No Cerebrovascular Accident: No Diabetes: No Diminished Hearing: No Endocrine: No Gastrointestinal Disorders: No GERD: No Genitourinary: Yes (KIDNEY STONES) Headaches: Yes Hiatal Hernia: No Heparin Induced Thrombocytopen: No Hypertension: Yes (Idiopathic intracranial hypertension) Immune Disorder: No Implanted Vascular Access Dvce: No Kidney Stones: Yes Musculoskeletal: No Neurologic: Yes Psychiatric: No Reproductive: Yes (7 MISCARRIAGES) Respiratory: Yes (asthma) Immunizations Current: Yes Migraines: Yes Radiation Therapy: No Renal Failure: No Seizures: Yes Sickle Cell Disease: No Sleep Apnea: No Thyroid Disease: No Ulcer: No ?: Not LMP: 08/23/2017 : 8 Para: 1 Miscarriage: 7 Dilation and Curettage (D&C): Yes (x3 ) Past Surgical History Narrative Surgical The patient's past surgical history is significant for lithotripsy, kidney stent placement, , hysterectomy, cholecystectomy, ventricular peritoneal shunt placement Abdominal Surgery: No AICD: No Arteriovenous Shunt: No Cardiac Surgery: No Section: Yes Cholecystectomy: Yes Ear Surgery: No Endocrine Surgery: No Eye Surgery: No Genitourinary Surgery: Yes (STENTS KIDNEYS, LITHOTRIPSIES) Gynecologic Surgery: No Hysterectomy: Yes Insulin Pump: No Joint Replacement: No Neurologic Surgery: Yes (2 LP shunts placed 08/12/17) Oral Surgery: No Pacemaker: No Thoracic Surgery: No Other Surgery: Yes (L KIDNEY (STENTS x 6)) Social History Alcohol Use: No Tobacco Use: Yes (1/2 ppd) Substance Use: Yes (weed for nausea, pain & vision) Allergies-Medications (Allergen,Severity, Reaction): Coded Allergies: Sulfa (Sulfonamide Antibiotics) (Verified Allergy, Severe, RASH, 09/02/17) amoxicillin (Verified Allergy, Severe, Anaphylaxis, 09/02/17) ketorolac (Verified Allergy, Severe, Anaphylaxis, 09/02/17) anaphylaxis per patient ibuprofen (Verified Allergy, Intermediate, HIVES, FACIAL SWELLING., 09/02/17 ) tramadol (Verified Allergy, Intermediate, HIVES, 09/02/17) hives, sewll up latex (Verified Allergy, Unknown, 09/02/17) penicillin G (Verified Allergy, Unknown, HIVES, 09/02/17) prochlorperazine (Verified Allergy, Unknown, HIVES, 09/02/17) sumatriptan (Verified Adverse Reaction, Severe, VOMITING PASSED OUT, ) Reported Meds & Prescriptions Reported Meds & Active Scripts Active Ondansetron Odt 4 Mg Tab 4 Mg SL Q8HR PRN Zofran Odt (Ondansetron Odt) 4 Mg Tab 4 Mg SL Q8HR PRN 7 Days Walker with Front Wheels (Device) 1 Mis Mis Ea .XX DIRECTED Morphine ER (Morphine Sulfate) 15 Mg Tab 15 Mg PO Q12HR Meclizine (Meclizine HCl) 25 Mg Tab 25 Mg PO TID PRN 30 Days Lasix (Furosemide) 40 Mg Tab 40 Mg PO BID 30 Days Diamox Sequels ER 12 HR (Acetazolamide) 500 Mg Cap 500 Mg PO TID 30 Days Topamax (Topiramate) 50 Mg Tab 100 Mg PO BID 30 Days Review of Systems Except as stated in HPI: all other systems reviewed are Neg General / Constitutional: No: Fever Eyes: No: Visual changes HENT: No: Headaches Cardiovascular: Positive: Chest Pain or Discomfort (Right-sided) Respiratory: No: Shortness of Breath Gastrointestinal: Positive: Nausea, Vomiting, Abdominal Pain, No: Diarrhea, Changes in Bowel Habits Genitourinary: No: Dysuria Musculoskeletal: No: Pain Skin: No Rash Neurologic: No: Weakness, Focal Abnormalities, Change in Mentation, Slurred Speech, Sensory Disturbance Psychiatric: No: Depression Endocrine: No: Polydipsia Hematologic/Lymphatic: No: Easy Bruising Physical Exam Narrative General: The patient is a well-developed well-nourished female in no acute distress. Head and Neck exam: Head is normocephalic atraumatic. Eyes: EOMI, pupils are equal round and reactive to light. Nose: Midline septum with pink mucous membranes Mouth: Dentition unremarkable. Moist mucus membranes. Posterior oropharynx is not erythematous. No tonsillar hypertrophy. Uvula midline. Airway patent. Neck: No palpable lymphadenopathy. No nuchal rigidity. No thyromegaly. Cardiovascular: Regular rate and rhythm without murmurs, gallops, or rubs. No pulse deficit to the extremities on simultaneous auscultation and palpation of her radial artery. The patient reports tenderness on palpation along the chest wall just underneath the right breast. The patient has a postoperative wound in the midepigastric area, between bilateral breasts that appears to be healing well. Lungs: Clear to auscultation bilaterally. No wheezes, rhonchi, or rales. Abdomen: Soft, with reported tenderness on palpation of the right upper quadrant of the abdomen, no other tenderness on palpation of the other quadrants. No guarding, rebound, or rigidity. Normal bowel sounds are audible. No tenderness on palpation of McBurney's point. Extremities: No clubbing, cyanosis, or edema. 2+ pulses in all 4 extremities. No calf tenderness on palpation. Back: No spinous process tenderness to palpation. No costovertebral angle tenderness to palpation. Neurologic Exam: Grossly nonfocal Skin Exam: No rash noted. Intact skin that is warm and dry. Data Data Last Documented VS Vital Signs Date Time Temp Pulse Resp B/P (MAP) Pulse Ox O2 Delivery O2 Flow Rate FiO2 09/02/17 22:06 97 Room Air 09/02/17 20:54 98.2 87 18 131/89 (103) Orders Orders Complete Blood Count With Diff (09/02/17 21:18) Basic Metabolic Panel (Bmp) (09/02/17 21:18) Prothrombin Time / Inr (Pt) (09/02/17:18) Act Partial Throm Time (Ptt) (09/02/17:18) C-Reactive Protein (Crp) (09/02/17 21:18) Urinalysis - C+S If Indicated (09/02/17 21:18) Westergren Sedimentation Rate (09/02/17 21:18) Chest, Single Ap (09/02/17 21:18) Iv Access Insert/Monitor (09/02/17 21:18) Ecg Monitoring (09/02/17 21:18) Oximetry (09/02/17 21:18) Ed Urine Pregnancytest Poc (09/02/17 21:18) Creatine Kinase (Cpk) (09/02/17 21:18) Ckmb (Isoenzyme) Profile (09/02/17 21:18) Troponin I (09/02/17 21:18) Admit Order (Ed Use Only) (09/02/17 21:18) Hepatic Functional Panel (09/02/17 21:28) Lipase (09/02/17 21:28) Sodium Chlor 0.9% 1000 Ml Inj (Ns 1000 M (09/02/17 21:30) Ondansetron Inj (Zofran Inj) (09/02/17 21:30) Hydromorphone Pf Inj (Dilaudid Pf Inj) (09/02/17 22:30) Place In Observation (09/02/17 22:13) Vital Signs (Adult) Q4H (09/02/17 22:13) Elevate Head Of Bed (09/02/17 22:13) Intake + Output SORAYA.Q8H (09/02/17 22:13) Npo After Midnight W/ Po Meds (09/03/17 Breakfast) Resp Incentive Spirometry (09/02/17 22:13) Activity Oob With Assistance PRN (09/02/17 22:13) Scd Bilateral/Knee High SORAYA.QSHIFT (09/02/17 22:13) Neuro Checks RT.Q4H (09/02/17 22:13) 1/2 Ns + Kcl 20 Meq Inj (1/2 Ns + Kcl 20 (09/02/17 22:13) Acetamin-Hydrocod 325-5 Mg ([place] 5-325 (09/02/17 22:15) Morphine Inj (Morphine Inj) (09/02/17 22:15) Hydromorphone Pf Inj (Dilaudid Pf Inj) (09/02/17 22:15) Morphine Inj (Morphine Inj) (09/02/17 22:15) Hydromorphone (Dilaudid) (09/02/17 22:15) Naloxone Inj (Narcan Inj) (09/02/17 22:15) Morphine Sr (Oramorph Sr) (09/03/17 09:00) Labs Laboratory Tests Test 09/02/17 22:00 White Blood Count 11.4 TH/MM3 Red Blood Count 4.61 MIL/MM3 Hemoglobin 12.4 GM/DL Hematocrit 37.6 % Mean Corpuscular Volume 81.5 FL Mean Corpuscular Hemoglobin 27.0 PG Mean Corpuscular Hemoglobin Concent 33.1 % Red Cell Distribution Width 13.5 % Platelet Count 342 TH/MM3 Mean Platelet Volume 8.1 FL Neutrophils (%) (Auto) 53.8 % Lymphocytes (%) (Auto) 35.8 % Monocytes (%) (Auto) 7.5 % Eosinophils (%) (Auto) 2.3 % Basophils (%) (Auto) 0.6 % Neutrophils # (Auto) 6.1 TH/MM3 Lymphocytes # (Auto) 4.1 TH/MM3 Monocytes # (Auto) 0.9 TH/MM3 Eosinophils # (Auto) 0.3 TH/MM3 Basophils # (Auto) 0.1 TH/MM3 CBC Comment DIFF FINAL Differential Comment Erythrocyte Sedimentation Rate 45 mm/hr Prothrombin Time 10.4 SEC Prothromb Time International Ratio 1.0 RATIO Activated Partial Thromboplast Time 26.5 SEC Urine Color YELLOW Urine Turbidity HAZY Urine pH 6.0 Urine Specific Young 1.028 Urine Protein TRACE mg/dL Urine Glucose (UA) NEG mg/dL Urine Ketones NEG mg/dL Urine Occult Blood NEG Urine Nitrite NEG Urine Bilirubin NEG Urine Urobilinogen 2.0 MG/DL Urine Leukocyte Esterase MOD Urine Squamous Epithelial Cells 7 /hpf Urine Granular Casts 3 /lpf Urine Mucus MANY /lpf Microscopic Urinalysis Comment CULT NOT INDICATED Blood Urea Nitrogen 18 MG/DL Creatinine 0.67 MG/DL Random Glucose 89 MG/DL Calcium Level 8.9 MG/DL Sodium Level 141 MEQ/L Potassium Level 3.6 MEQ/L Chloride Level 104 MEQ/L Carbon Dioxide Level 28.2 MEQ/L Anion Gap 9 MEQ/L Estimat Glomerular Filtration Rate 102 ML/MIN Total Creatine Kinase 64 U/L Troponin I LESS THAN 0.02 NG/ML C-Reactive Protein 0.45 MG/DL MDM Medical Decision Making Medical Screen Exam Complete: Yes Emergency Medical Condition: Yes Medical Record Reviewed: Yes Differential Diagnosis Postop infection, versus pyelonephritis, versus hepatitis, versus postoperative pain Narrative Course During the course of the patient's emergency department visit, the patient's history, examination, and differential diagnosis were reviewed with the patient. The patient was placed on a personnel monitor with oximetry and frequent blood pressure monitoring. The patient had IV access obtained and blood work sent for analysis. A call was received from Dr. Cerrato regarding this patient's case. He confirms that he saw the patient in the office today and is requesting that I admit the patient to the hospital under his care. He plans to consult interventional radiology to do a needle aspiration of the area of discomfort to assess for any evidence of infection. The patient was initially provided normal saline 1 L IV fluid bolus, Zofran 4 mg IV, hydromorphone 0.5 mg IV. He patient's laboratory studies were reviewed and remarkable for a white count of 11.4, hemoglobin 12.4, platelets 342 with a normal differential, sedimentation rate is elevated at 45. Basic metabolic profile is unremarkable, cardiac enzymes are within normal limits, CRP is 0.45, PT PTT within normal limits. Urinalysis shows moderate leukocyte esterase many mucus culture not indicated. Radiology studies were reviewed and remarkable for a chest x-ray that shows no evidence of acute cardiopulmonary disease. The patient's results were discussed with the patient, including the plan of care. I explained that further testing and/ or monitoring is indicated based on the patient's history, examination, and/ or laboratory findings. Therefore, I recommended admission for additional evaluation. The patient expressed understanding and was agreeable with this plan. The patient was admitted to the hospital in stable condition and sent to a bed under the care of Dr. Cerrato. Physician Communication Physician Communication The patient's case including history, pertinent physical examination findings, and laboratory studies were discussed with Dr. Cerrato. It was agreed that the patient would be admitted to Dr. Cerrato's service. Diagnosis Primary Impression: Post-op pain Additional Impression: Intractable pain Admitting Information Admitting Physician Requests: Observation Trish Blanca MD September 02, 2017 21:25
[2017-09-02] MEDS ORDERED: SODIUM CHLOR 0.9% 1000 ML INJ 1,000 ML IV ONE (21:30)
[2017-09-02] MEDS ORDERED: ONDANSETRON HCL 4 MG/2 ML VIAL IV ONE (21:30)
[2017-09-02 22:06] VITALS: O2SAT 97
[2017-09-02] MEDS ORDERED: ACETAMINOPHEN/HYDROcodone 325 MG/5 MG TAB PO PRN (22:15)
[2017-09-02] MEDS ORDERED: HYDROmorphone HCL PF 1 MG/ML VIAL IV PUSH PRN (22:15)
[2017-09-02] MEDS ORDERED: MORPHINE SULFATE 2 MG/ML SYRINGE IV PUSH PRN ×2 (22:15)
[2017-09-02] MEDS ORDERED: NALOXONE HCL 0.4 MG/ML AMP IV PUSH PRN (22:15)
[2017-09-02 22:19] LABS: AUTOMATED NEUTROPHIL # 6.1 TH/MM3 (1.8-7.7); BASOPHIL # 0.1 TH/MM3 (0-0.2); BASOPHIL % 0.6 % (0.0-2.0); EOSINOPHIL # 0.3 TH/MM3 (0-0.4); EOSINOPHIL % 2.3 % (0.0-4.0); HEMATOCRIT 37.6 % (35.0-46.0); HEMOGLOBIN 12.4 GM/DL (11.6-15.3); LYMPH % 35.8 % (9.0-44.0); LYMPHOCYTE # 4.1 TH/MM3 (1.0-4.8); MEAN CELL VOLUME 81.5 FL (80.0-100.0); MEAN CORPUSCULAR HGB CONC 33.1 % (32.0-36.0); MEAN PLATELET VOLUME 8.1 FL (7.0-11.0); MONO % 7.5 % (0.0-8.0); MONOCYTE # 0.9 TH/MM3 (0-0.9); NEUT % 53.8 % (16.0-70.0); PLATELET COUNT 342 TH/MM3 (150-450); RED BLOOD COUNT 4.61 MIL/MM3 (4.00-5.30); RED CELL DISTRIBUTION WIDTH 13.5 % (11.6-17.2); WHITE BLOOD COUNT 11.4 TH/MM3 (4.0-11.0)
[2017-09-02 22:20] LABS: BILIRUBIN, URINE NEG (NEG); BLOOD, URINE NEG (NEG); GLUCOSE,URINE NEG (NEG); KETONE, URINE NEG (NEG); MUCUS URINE MANY /lpf (OCC); NITRITE,URINE NEG (NEG); SQUAMOUS EPITHELIAL CELL URINE 7 /hpf (0-5); URINE COLOR YELLOW (YELLW/STRAW); URINE LEUKOCYTE ESTERASE MOD (NEG)
--- NOTE | 2017-09-02 22:25 | RADRPT ---
EXAM DATE/TIME: 09/02/2017 21:24 [facility] COMPARISON: CHEST SINGLE AP, August 22, 2017, 17:15. INDICATIONS : Chest pain. Post surgical pain. Recent CO OP shunt placement. MEDICAL HISTORY : Renal calculi. Hypertension SURGICAL HISTORY : Cholecystectomy. Hysterectomy. ENCOUNTER: Sequela ACUITY: 2 weeks PAIN SCORE: 10/10 LOCATION: Bilateral chest FINDINGS: A single view of the chest demonstrates the lungs to be symmetrically aerated without evidence of mas s, infiltrate or effusion. The cardiomediastinal contours are unremarkable. Osseous structures are intact. CONCLUSION: No acute disease. Wallace Bill MD on September 02, 2017 at 22:23 Board Certified Radiologist. This report was verified electronically.
[2017-09-02] MEDS ORDERED: HYDROmorphone HCL PF 2 MG/ML VIAL IV PUSH ONE (22:30)
[2017-09-02 22:39] LABS: BICARBONATE 28.2 MEQ/L (21.0-32.0); BLOOD UREA NITROGEN 18 MG/DL (7-18); CALCIUM 8.9 MG/DL (8.5-10.1); CHLORIDE 104 MEQ/L (98-107); CREATININE 0.67 MG/DL (0.50-1.00); GLOMERULAR FILTRATION RATE 102 ML/MIN (>89); GLUCOSE,RANDOM 89 MG/DL (74-106); SODIUM (NA) 141 MEQ/L (136-145)
[2017-09-02 22:40] VITALS: BP 127/87; PULSE 60; RESP 16; O2SAT 98
[2017-09-02 22:42] LABS: PROTHROMBIN TIME - PATIENT 10.4 SEC (9.8-11.6)
[2017-09-02 22:43] LABS: C-REACTIVE PROTEIN 0.45 MG/DL (0.00-0.30); TROPONIN I LESS THAN 0.02 NG/ML (0.02-0.05)
[2017-09-02 23:18] LABS: ALBUMIN 3.6 GM/DL (3.4-5.0); ALT (GPT) 22 U/L (10-53); AST (GOT) 13 U/L (15-37); DIRECT BILIRUBIN ADULT 0.1 MG/DL (0.0-0.2)
[2017-09-02 23:20] LABS: ALKALINE PHOSPHATASE 84 U/L (45-117); INDIRECT BILIRUBIN 0.2 MG/DL (0.0-0.8); TOTAL BILIRUBIN ADULT 0.3 MG/DL (0.2-1.0); TOTAL PROTEIN 7.3 GM/DL (6.4-8.2)
[2017-09-03] VITALS (8 sets, daily range): BP systolic 113–142; BP diastolic 55–83; PULSE 51–73; RESP 17–20; TEMP 97.2–98.3; O2SAT 92–99
[2017-09-03] MEDS: 1/2 NS + KCL 20 MEQ INJ 1,000 ML IV SCH ×2 (00:22→22:13)
[2017-09-03] MEDS: HYDROmorphone HCL PF 0.5 MG/0.5 ML SYRINGE IV PUSH PRN ×7 (01:25→22:25)
[2017-09-03] MEDS: ONDANSETRON ODT 4 MG TAB SL PRN ×2 (05:01→11:36)
[2017-09-03] MEDS: MORPHINE SULFATE 15 MG CONTROLLED RELEASE TAB PO SCH ×2 (08:26→21:08)
[2017-09-03] MEDS: DOCUSATE SODIUM 50 MG/SENNA 8.6 MG TAB PO SCH ×2 (08:26→21:08)
[2017-09-03] MEDS ORDERED: TOPIRAMATE 25 MG TAB PO SCH (09:00)
[2017-09-03] MEDS: TOPIRAMATE 100 MG TAB PO SCH ×2 (10:41→21:08)
--- NOTE | 2017-09-03 11:25 | HHI.HP ---
HPI Service Neurosurgery Primary Care Physician Unknown Chief Complaint: Right subcostal-abdominal pain History of Present Illness Ms. Mayberry is a 32-year-old female who previously underwent lumboperitoneal shunt placement 08/12/2017 for treatment of idiopathic intracranial hypertension. She has had significant persistent pain in the right subcostal region at the shunt distal catheter insertion site since surgery. She indicates that the pain seemed a little better a week ago, but over this past weekend significantly increased. She has had no fevers or chills. She does complain of persistent nausea and vomiting, somewhat increased over the weekend , although she has also been taking more hydromorphone, which seemed to cause nausea. She remains on MS Contin 15 mg twice daily. No diarrhea. Intermittent constipation. She is taking laxative at home. The patient has presented back to the emergency room several times since surgery, for various complaints including the right subcostal pain as well as problems with constipation and persistent vomiting. Review of Systems Constitutional: COMPLAINS OF: Change in appetite, DENIES: Fever, Chills, Dizziness Eyes: COMPLAINS OF: Blurred vision, DENIES: Diplopia Ears, nose, mouth, throat: DENIES: Hearing loss, Vertigo, Throat pain Respiratory: COMPLAINS OF: Shortness of breath, DENIES: Cough Cardiovascular: DENIES: Chest pain Gastrointestinal: COMPLAINS OF: Abdominal pain, Diarrhea, Nausea Genitourinary: DENIES: Urinary incontinence, Urgency Musculoskeletal: COMPLAINS OF: Back pain, DENIES: Neck pain Neurologic: COMPLAINS OF: Abnormal gait, Headache Psychiatric: COMPLAINS OF: Anxiety Past Family Social History Allergies: Coded Allergies: Sulfa (Sulfonamide Antibiotics) (Verified Allergy, Severe, RASH, 09/02/17) amoxicillin (Verified Allergy, Severe, Anaphylaxis, 09/02/17) ketorolac (Verified Allergy, Severe, Anaphylaxis, 09/02/17) anaphylaxis per patient ibuprofen (Verified Allergy, Intermediate, HIVES, FACIAL SWELLING., 09/02/17 ) tramadol (Verified Allergy, Intermediate, HIVES, 09/02/17) hives, sewll up latex (Verified Allergy, Unknown, 09/02/17) penicillin G (Verified Allergy, Unknown, HIVES, 09/02/17) prochlorperazine (Verified Allergy, Unknown, HIVES, 09/02/17) sumatriptan (Verified Adverse Reaction, Severe, VOMITING PASSED OUT, ) Past Medical History History of idiopathic intracranial hypertension History of MRSA skin infections. Kidney stones Asthma History of migraine headaches Past Surgical History Cholecystectomy Hysterectomy Renal stent Lumboperitoneal shunt Reported Medications Reported Meds & Active Scripts Active Ondansetron Odt 4 Mg Tab 4 Mg SL Q8HR PRN Zofran Odt (Ondansetron Odt) 4 Mg Tab 4 Mg SL Q8HR PRN 7 Days Walker with Front Wheels (Device) 1 Mis Mis Ea .XX DIRECTED Morphine ER (Morphine Sulfate) 15 Mg Tab 15 Mg PO Q12HR Meclizine (Meclizine HCl) 25 Mg Tab 25 Mg PO TID PRN 30 Days Lasix (Furosemide) 40 Mg Tab 40 Mg PO BID 30 Days Diamox Sequels ER 12 HR (Acetazolamide) 500 Mg Cap 500 Mg PO TID 30 Days Topamax (Topiramate) 50 Mg Tab 100 Mg PO BID 30 Days Family History Negative cardiac disease Social History Smokes one half pack cigarettes per day No alcohol Occasional marijuana Physical Exam Vital Signs Vital Signs Date Time Temp Pulse Resp B/P (MAP) Pulse Ox O2 Delivery O2 Flow Rate FiO2 09/03/17 07:48 98.0 73 20 115/57 (76) 96 09/03/17 05:38 97.7 61 18 113/55 (74) 98 09/03/17 00:20 97.7 63 18 136/71 (92) 98 09/02/17 23:11 09/02/17 22:40 60 16 127/87 (100) 98 Room Air 09/02/17 22:06 97 Room Air 09/02/17 20:54 98.2 87 18 131/89 (103) 97 Physical Exam General: Moderately obese female, appears mildly uncomfortable. Respirations: Clear and regular Abdomen: Soft, no significant abdominal pain to palpation. She does have moderate tenderness to palpation over the right medial upper abdomen-subcostal margin incision at the shunt valve placement site with radiation of pain towards the mid to upper right abdominal region with this palpation. Neurologic: She is awake and alert oriented conversant appropriate Speech is clear Good movement all extremity major flexion-extension groups No evidence of anxiety or depression Reasonable judgment and insight Answers questions appropriately. Follow simple commands well Laboratory Laboratory Tests Test 09/02/17 22:00 White Blood Count 11.4 Red Blood Count 4.61 Hemoglobin 12.4 Hematocrit 37.6 Mean Corpuscular Volume 81.5 Mean Corpuscular Hemoglobin 27.0 Mean Corpuscular Hemoglobin Concent 33.1 Red Cell Distribution Width 13.5 Platelet Count 342 Mean Platelet Volume 8.1 Neutrophils (%) (Auto) 53.8 Lymphocytes (%) (Auto) 35.8 Monocytes (%) (Auto) 7.5 Eosinophils (%) (Auto) 2.3 Basophils (%) (Auto) 0.6 Neutrophils # (Auto) 6.1 Lymphocytes # (Auto) 4.1 Monocytes # (Auto) 0.9 Eosinophils # (Auto) 0.3 Basophils # (Auto) 0.1 CBC Comment DIFF FINAL Differential Comment Erythrocyte Sedimentation Rate 45 Prothrombin Time 10.4 Prothromb Time International Ratio 1.0 Activated Partial Thromboplast Time 26.5 Urine Color YELLOW Urine Turbidity HAZY Urine pH 6.0 Urine Specific [place] 1.028 Urine Protein TRACE Urine Glucose (UA) NEG Urine Ketones NEG Urine Occult Blood NEG Urine Nitrite NEG Urine Bilirubin NEG Urine Urobilinogen 2.0 Urine Leukocyte Esterase MOD Urine Squamous Epithelial Cells 7 Urine Granular Casts 3 Urine Mucus MANY Microscopic Urinalysis Comment CULT NOT INDICATED Blood Urea Nitrogen 18 Creatinine 0.67 Random Glucose 89 Total Protein 7.3 Albumin 3.6 Calcium Level 8.9 Alkaline Phosphatase 84 Aspartate Amino Transf (AST/SGOT) 13 Alanine Aminotransferase (ALT/SGPT) 22 Total Bilirubin 0.3 Direct Bilirubin 0.1 Sodium Level 141 Potassium Level 3.6 Chloride Level 104 Carbon Dioxide Level 28.2 Anion Gap 9 Estimat Glomerular Filtration Rate 102 Indirect Bilirubin 0.2 Total Creatine Kinase 64 Troponin I LESS THAN 0.02 C-Reactive Protein 0.45 Lipase 76 Result Diagram: 09/02/17219909/02/172199 Caprini VTE Risk Assessment Caprini VTE Risk Assessment: No/Low Risk (score <= 1) Caprini Risk Assessment Model Point Value = 1 Point Value = 2 Point Value = 3 Point Value = 5 Age 41-60 Minor surgery BMI > 25 kg/m2 Swollen legs Varicose veins or History of unexplained or recurrent spontaneous Oral contraceptives or hormone replacement Sepsis (< 1 month) Serious lung disease, including pneumonia (< 1 month) Abnormal pulmonary function Acute myocardial infarction Congestive heart failure (< 1 month) History of inflammatory bowel disease Medical patient at bed rest Age 61-74 Arthroscopic surgery Major open surgery (> 45 min) Laparoscopic surgery (> 45 min) Malignancy Confined to bed (> 72 hours) Immobilizing plaster cast Central venous access Age >= 75 History of VTE Family history of VTE Factor V Leiden Prothrombin [id number] Lupus anticoagulant Anticardiolipin antibodies Elevated serum homocysteine Heparin-induced thrombocytopenia Other congenital or acquired thrombophilia Stroke (< 1 month) Elective arthroplasty Hip, pelvis, or leg fracture Acute spinal cord injury (< 1 month) Prophylaxis Regimen Total Risk Factor Score Risk Level Prophylaxis Regimen 0-1 Low Early ambulation 2 Moderate Order ONE of the following: *Sequential Compression Device (SCD) *Heparin 5000 units SQ BID 3-4 Higher Order ONE of the following medications: *Heparin 5000 units SQ TID *Enoxaparin/Lovenox 40 mg SQ daily (WT < 150 kg, CrCl > 30 mL/min) *Enoxaparin/Lovenox 30 mg SQ daily (WT < 150 kg, CrCl > 10-29 mL/min) *Enoxaparin/Lovenox 30 mg SQ BID (WT < 150 kg, CrCl > 30 mL/min) AND/OR *Sequential Compression Device (SCD) 5 or more Highest Order ONE of the following medications: *Heparin 5000 units SQ TID (Preferred with Epidurals) *Enoxaparin/Lovenox 40 mg SQ daily (WT < 150 kg, CrCl > 30 mL/min) *Enoxaparin/Lovenox 30 mg SQ daily (WT < 150 kg, CrCl > 10-29 mL/min) *Enoxaparin/Lovenox 30 mg SQ BID (WT < 150 kg, CrCl > 30 mL/min) AND *Sequential Compression Device (SCD) Assessment and Plan Assessment and Plan Impression: 1. Persistent right subcostal-upper abdominal pain at the abdominal lumboperitoneal shunt placement site. Plan: Findings were discussed with patient. Discussed with interventional radiology. The shunt catheter may be irritating the lower diaphragmatic region. A follow-up CT scan image of the abdomen will be obtained during interventional radiology procedure. Would like to perform an aspiration at the shunt site to make certain that there is no indolent infection. At the same time, Exparel can be injected at the pain site under CT guidance to try to help decrease the patient's pain over the short-term and also confirm the pain generator. Small risk of infection was discussed with the patient. She appears to understand and agree. Mamadou Cerrato MD September 03, 2017 11:25
[2017-09-03] MEDS ORDERED: BUPIVACAINE LIPOSOME PF 1.3% 20 ML VIAL ONE (13:00)
[2017-09-03] MEDS ORDERED: MIDAZOLAM HCL 5 MG/5 ML VIAL ONE (13:39)
[2017-09-03] MEDS ORDERED: fentaNYL CITRATE 250 MCG/5 ML AMP ONE (13:39)
[2017-09-03] MEDS ORDERED: STERILE WATER FOR INJECTION 10 ML VIAL ONE (14:16)
--- NOTE | 2017-09-03 14:26 | PD.RAD ---
Post CT Procedure Prog Note Pre Procedure Diagnosis: (1) Intractable pain (2) Post-op pain Post Procedure Diagnosis: (1) Intractable pain (2) Post-op pain Procedure Date: September 03, 2017 Supervising Radiologist: Josue Vargas Anesthesia: Conscious Sedation Plan of Activity Patient to Unit: ROPU Patient Condition: Good See PACS Report for procedural detail/treatment Josue Vargas MD September 03, 2017 14:26
--- NOTE | 2017-09-03 16:29 | RADRPT ---
EXAM DATE/TIME: 09/03/2017 13:46 [place] COMPARISON: No previous studies available for comparison. INDICATIONS : Aspiration of anterior abdominal wall SEDATION TIME: 30 minutes MEDICATION(S): 1.) 4 mg midazolam (Versed) IV 2.) 200 mcg fentanyl (Sublimaze) IV DEVICE(S): 1.) 18g needle FLUID: Total volume of 1 cc of clear, red fluid was removed. Fluid was sent for laboratory ordered studies. MEDICAL HISTORY : Seizures. Hypertension. Renal calculi. SURGICAL HISTORY : Hysterectomy. lp shunt ENCOUNTER: Initial ACUITY: 1 day PAIN SCORE: 7/10 LOCATION: Right subcostal PROCEDURE: PROCEDURE : CT guided aspiration. The risks, benefits and alternatives to the procedure were explained and verbal and written consent w as obtained. Using automated exposure control and adjustment of the mA and/or kV according to patien t size, radiation dose was kept as low as reasonably achievable to obtain optimal diagnostic quality images. The site was prepped in sterile fashion. Full sterile technique was used, including cap, ma sk, sterile gloves and gown and a large sterile sheet. Hand hygiene and 2% chlorhexidine and/or beta dine/alcohol prep was utilized per protocol for cutaneous antisepsis. The skin and subcutaneous tiss ues were infiltrated with local anesthetic solution. DICOM format image data is available electronic ally for review and comparison. 18 gauge needle was advanced to the region of patient's right upper quadrant intra-abdominal pump. Th e region of stranding just caudal to the pump was surgical aspirated multiple times yielding approxim ately 1 cc of serosanguineous fluid. There are simple was submitted for laboratory analysis. CONCLUSION: 1. Uncomplicated CT-guided aspiration of inflammatory tissue near the patient's right upper quadrant pump. Josue Vargas MD on September 03, 2017 at 16:25 Board Certified Radiologist. This report was verified electronically.
--- NOTE | 2017-09-03 16:32 | RADRPT ---
EXAM DATE/TIME: 09/03/2017 13:46 INDICATIONS : Right subcostal pain, shunt site MEDICATION(S): 1.) 4 mg midazolam (Versed) IV 2.) 200 mcg fentanyl (Sublimaze) IV DEVICE(S): 1.) 22 gauge Chiba needle RESPONSE: Pre-procedure pain level was 7 Pre-procedure pain level was 6 MEDICAL HISTORY : Hypertension. Seizures. Renal calculi. SURGICAL HISTORY : Hysterectomy. LPshunt ENCOUNTER: Initial ACUITY: 1 day PAIN SCORE: 7/10 LOCATION: Right upper quadrant PROCEDURE : CT guided steroid injection. Using automated exposure control and adjustment of the mA and/or kV according to patient size, radiat ion dose was kept as low as reasonably achievable to obtain optimal diagnostic quality images. DICOM format image data is available electronically for review and comparison. The risks, benefits and alternatives to the procedure were explained and verbal and written consent w as obtained. The site was prepped in sterile fashion. Full sterile technique was used, including ca p, mask, sterile gloves and gown and a large sterile sheet. Hand hygiene and 2% chlorhexidine and/or betadine/alcohol prep was utilized per protocol for cutaneous antisepsis. The skin and subcutaneous tissues were infiltrated with local anesthetic solution. A 21 gauge Chiba needle was advanced along the tract of patient's existing intrathecal shunt tubing. Next, approximately 15 mL of Exparel was injected along the tubing tract and the needle was removed. Post procedure CT examination demonstrated appropriate infiltration of the injection along the tubing tract without evidence for complication. CONCLUSION: Uncomplicated CT guided long-acting anesthetic injection as above. Josue Vargas MD on September 03, 2017 at 16:27 Board Certified Radiologist. This report was verified electronically.
[2017-09-03] MEDS: MECLIZINE HCL 25 MG TAB PO PRN (22:24)
[2017-09-04] VITALS: BP 134/72; PULSE 57; RESP 18; TEMP 97.8; O2SAT 99
[2017-09-04] MEDS: ONDANSETRON ODT 4 MG TAB SL PRN ×2 (01:26→20:22)
[2017-09-04] MEDS: HYDROmorphone HCL PF 0.5 MG/0.5 ML SYRINGE IV PUSH PRN ×2 (01:26→05:21)
[2017-09-04 07:57] VITALS: BP 108/49; PULSE 57; RESP 18; O2SAT 97
[2017-09-04] MEDS: DOCUSATE SODIUM 50 MG/SENNA 8.6 MG TAB PO SCH ×2 (08:55→22:07)
[2017-09-04] MEDS: TOPIRAMATE 100 MG TAB PO SCH ×2 (08:55→22:07)
[2017-09-04] MEDS: MORPHINE SULFATE 15 MG CONTROLLED RELEASE TAB PO SCH ×2 (08:56→22:07)
[2017-09-04] MEDS: MECLIZINE HCL 25 MG TAB PO PRN ×2 (09:12→17:51)
[2017-09-04] MEDS: HYDROmorphone HCL 2 MG TAB PO PRN ×3 (10:05→22:16)
[2017-09-04 12:00] VITALS: BP 100/56; PULSE 58; RESP 18; O2SAT 95
--- NOTE | 2017-09-04 12:14 | HHI.NSPN ---
(Chandrakant Yeung) History Chief Complaint: Right lower side abdominal pain. (Chandrakant Yeung) Interval History 09/03: Ms. Mayberry is a 32-year-old female who previously underwent lumboperitoneal shunt placement 08/12/2017 for treatment of idiopathic intracranial hypertension. She has had significant persistent pain in the right subcostal region at the shunt distal catheter insertion site since surgery. She indicates that the pain seemed a little better a week ago, but over this past weekend significantly increased. She has had no fevers or chills. She does complain of persistent nausea and vomiting, somewhat increased over the weekend, although she has also been taking more hydromorphone , which seemed to cause nausea. She remains on MS Contin 15 mg twice daily. No diarrhea. Intermittent constipation. She is taking laxative at home. The patient has presented back to the emergency room several times since surgery, for various complaints including the right subcostal pain as well as problems with constipation and persistent vomiting. 09/04: This morning the patient is asleep in bed but does awaken to voice. After that she is alert. She states that she continues to have pain to the right lower abdominal wall toward the flank. The pain at the right epigastric incision has improved. She continues to have nausea and vomiting with oral hydromorphone. She does say she has a migraine today. She does have some mild right lower extremity weakness. Earlier this morning Nursing reported that the patient was refusing to take the oral hydromorphone and wanted it intravenously. (Chandrakant Yeung) Exam Results 09/02/17 09/02/17 09/03/17 09/03/17 09/04/17 09/04/17 06:00 18:00 06:00 18:00 06:00 18:00 Intake Total 1000 ml Balance 1000 ml Intake IV Total 1000 ml # Voids 1 2 1 Vital Signs Date Time Temp Pulse Resp B/P (MAP) Pulse Ox O2 Delivery O2 Flow Rate FiO2 09/04/17 07:57 57 18 108/49 (68) 97 09/04/17 00:00 97.8 57 18 134/72 (92) 99 09/03/17 21:20 98.3 60 17 142/83 (102) 99 09/03/17 15:10 51 18 113/65 (81) 95 09/03/17 14:55 58 18 113/60 (77) 92 09/03/17 14:40 97.8 56 18 120/64 (82) 96 09/03/17 12:08 97.2 54 20 118/59 (78) 96 09/03/17 07:48 98.0 73 20 115/57 (76) 96 09/03/17 05:38 97.7 61 18 113/55 (74) 98 09/03/17 00:20 97.7 63 18 136/71 (92) 98 09/02/17 23:11 09/02/17 22:40 60 16 127/87 (100) 98 Room Air 09/02/17 22:06 97 Room Air 09/02/17 20:54 98.2 87 18 131/89 (103) 97 (Chandrakant Yeung) Physical Examination GENERAL: Asleep in bed but awakens to voice, alert after that. Affect is flat but she does interact readily. She appears minimally to mildly uncomfortable but not in any distress. HEENT: Normocephalic, atraumatic. PERRLA 3 mm brisk, EOMI. MMM & pink, tongue midline to protrusion. GASTROINTESTINAL: Abdomen soft, no apparent TTP of the epigastric incision, minimally TTP to the right lower lateral abdominal wall. The right upper lateral wall incision is well healed w/o complication and is NTTP. MUSCULOSKELETAL: HOUSE spontaneously & purposefully w/o difficulty. The lumbar spine surgical incision is healing w/o complication, there is some scabbing present, the incision is mildly TTP. NEUROLOGICAL: AAOx3. Speech clear & appropriate. Follows simple commands w/o difficulty. Sensation is intact to light touch to the lower extremities. Motor strength is 5/5 to the LLE and 4+/5 to the RLE. (Chandrakant Yeung) Lab, Micro, Other Results Recent Impressions Therapeutic Steroid Injection 09/03/17 1416 Signed Impressions: Service Date/Time: Sunday, September 03, 2017 13:46 - CONCLUSION: Uncomplicated CT guided long-acting anesthetic injection as above. Josue Vargas MD Needle Aspiration CT 09/03/17 0000 Signed Impressions: Service Date/Time: Sunday, September 03, 2017 13:46 - CONCLUSION: 1. Uncomplicated CT-guided aspiration of inflammatory tissue near the patient's right upper quadrant pump. Josue Vargas MD Chest X-Ray 09/02/178 Signed Impressions: Service Date/Time: Saturday, September 02, 2017 21:24 - CONCLUSION: No acute disease. Wallace Bill MD Laboratory Tests Test 09/02/17 22:00 White Blood Count 11.4 TH/MM3 Red Blood Count 4.61 MIL/MM3 Hemoglobin 12.4 GM/DL Hematocrit 37.6 % Mean Corpuscular Volume 81.5 FL Mean Corpuscular Hemoglobin 27.0 PG Mean Corpuscular Hemoglobin Concent 33.1 % Red Cell Distribution Width 13.5 % Platelet Count 342 TH/MM3 Mean Platelet Volume 8.1 FL Neutrophils (%) (Auto) 53.8 % Lymphocytes (%) (Auto) 35.8 % Monocytes (%) (Auto) 7.5 % Eosinophils (%) (Auto) 2.3 % Basophils (%) (Auto) 0.6 % Neutrophils # (Auto) 6.1 TH/MM3 Lymphocytes # (Auto) 4.1 TH/MM3 Monocytes # (Auto) 0.9 TH/MM3 Eosinophils # (Auto) 0.3 TH/MM3 Basophils # (Auto) 0.1 TH/MM3 CBC Comment DIFF FINAL Differential Comment Erythrocyte Sedimentation Rate 45 mm/hr Prothrombin Time 10.4 SEC Prothromb Time International Ratio 1.0 RATIO Activated Partial Thromboplast Time 26.5 SEC Urine Color YELLOW Urine Turbidity HAZY Urine pH 6.0 Urine Specific [place] 1.028 Urine Protein TRACE mg/dL Urine Glucose (UA) NEG mg/dL Urine Ketones NEG mg/dL Urine Occult Blood NEG Urine Nitrite NEG Urine Bilirubin NEG Urine Urobilinogen 2.0 MG/DL Urine Leukocyte Esterase MOD Urine Squamous Epithelial Cells 7 /hpf Urine Granular Casts 3 /lpf Urine Mucus MANY /lpf Microscopic Urinalysis Comment CULT NOT INDICATED Blood Urea Nitrogen 18 MG/DL Creatinine 0.67 MG/DL Random Glucose 89 MG/DL Total Protein 7.3 GM/DL Albumin 3.6 GM/DL Calcium Level 8.9 MG/DL Alkaline Phosphatase 84 U/L Aspartate Amino Transf (AST/SGOT) 13 U/L Alanine Aminotransferase (ALT/SGPT) 22 U/L Total Bilirubin 0.3 MG/DL Direct Bilirubin 0.1 MG/DL Sodium Level 141 MEQ/L Potassium Level 3.6 MEQ/L Chloride Level 104 MEQ/L Carbon Dioxide Level 28.2 MEQ/L Anion Gap 9 MEQ/L Estimat Glomerular Filtration Rate 102 ML/MIN Indirect Bilirubin 0.2 MG/DL Total Creatine Kinase 64 U/L Troponin I LESS THAN 0.02 NG/ML C-Reactive Protein 0.45 MG/DL Lipase 76 U/L (Chandrakant Yeung) Medical Decision Making Impression and Plan Impression: 1. Persistent right subcostal-upper abdominal pain at the abdominal lumboperitoneal shunt placement site. The shunt catheter may be irritating the lower diaphragmatic region. The patient reports improvement in the epigastric surgical incision area and the pain toward the right lower lateral abdominal wall appears improved. She does have a migraine today which is not uncommon for her. She continues to have nausea & vomiting w/PO hydromorphone. She does have mild RLE weakness. Intermittent bradycardia. Fluid aspirate () w/no organisms or WBCs seen on Gram stain final 2017, culture pending. Plan: Regular diet. Neuro checks q4h. Vital signs q4h. Mobilise patient w/assistance as needed. Elevate HOB. Procedure site dressing changes QD & PRN. Hydrocodone/acetaminophen 5/325 mg tab PO q4h PRN pain 3-5/10. Hydromorphone 2 mg PO q4h PRN pain 6-10/10. Morphine 2 mg IV push q3h PRN pain 3-5/10 if patient is unable to take PO. Hydromorphone 1 mg IV push q3h PRN pain 6-10/10 if patient is unable to take PO . Morphine 4 mg IV push q3h PRN breakthrough pain. Morphine SR 15 mg PO q12h. Ondansetron ODT 4 mg subl q8h PRN N/V. (Chandrakant Yeung) Attending Statement The exam, history, and the medical decision-making described in the above note were completed with the assistance of the mid-level provider. I reviewed and agree with the findings presented. I attest that I had a [id number] encounter with the patient on the same day, and personally performed and documented my assessment and findings in the medical record. On 09/04/2017, the patient's pain is a little better. On my examination there is a small scab at the lumbar incision without drainage erythema edema or tenderness. There is still some moderate tenderness over the right anterior subcostal margin extending to the flank incision. No significant erythema or edema. Discussed with patient. She is a little better on 09/04/2017 in regards to pain. Advised that narcotics need to be weaned down in order to help avoid constipation and further nausea. (Mamadou Cerrato MD) Chandrakant Yeung September 04, 2017 12:13 Mamadou Cerrato MD September 08, 2017 08:32
[2017-09-04 16:00] VITALS: BP 122/58; PULSE 54; RESP 18; TEMP 98.4; O2SAT 96
[2017-09-04 20:00] VITALS: BP 133/75; PULSE 61; RESP 18; TEMP 97.9; O2SAT 99
[2017-09-04] MEDS: 1/2 NS + KCL 20 MEQ INJ 1,000 ML IV SCH (22:08)
[2017-09-05] VITALS: BP 95/57; PULSE 56; RESP 18; TEMP 97.7; O2SAT 93
[2017-09-05] MEDS: HYDROmorphone HCL PF 2 MG/ML VIAL IV PUSH PRN ×4 (03:56→19:44)
[2017-09-05 04:00] VITALS: BP 100/50; PULSE 50; RESP 18; TEMP 98.1; O2SAT 95
[2017-09-05 08:00] VITALS: BP 110/62; PULSE 86; RESP 16; TEMP 98.2; O2SAT 96
[2017-09-05] MEDS: MECLIZINE HCL 25 MG TAB PO PRN (08:51)
[2017-09-05] MEDS: MORPHINE SULFATE 15 MG CONTROLLED RELEASE TAB PO SCH ×2 (08:51→22:27)
[2017-09-05] MEDS: DOCUSATE SODIUM 50 MG/SENNA 8.6 MG TAB PO SCH ×2 (08:52→19:43)
[2017-09-05] MEDS: TOPIRAMATE 100 MG TAB PO SCH ×2 (08:52→19:43)
[2017-09-05 12:00] VITALS: BP_SYST 113; BP_SYST 119; BP_DIAS 57; BP_DIAS 69; PULSE 60; PULSE 84; RESP 18; TEMP 98.1; TEMP 98.6; O2SAT 95; O2SAT 97
--- NOTE | 2017-09-05 15:43 | HHI.NSPN ---
(Chandrakant Yeung) History Chief Complaint: In a lot of pain to the right rib area. (Chandrakant Yeung) Interval History 09/03: Ms. Mayberry is a 32-year-old female who previously underwent lumboperitoneal shunt placement 08/12/2017 for treatment of idiopathic intracranial hypertension. She has had significant persistent pain in the right subcostal region at the shunt distal catheter insertion site since surgery. She indicates that the pain seemed a little better a week ago, but over this past weekend significantly increased. She has had no fevers or chills. She does complain of persistent nausea and vomiting, somewhat increased over the weekend, although she has also been taking more hydromorphone , which seemed to cause nausea. She remains on MS Contin 15 mg twice daily. No diarrhea. Intermittent constipation. She is taking laxative at home. The patient has presented back to the emergency room several times since surgery, for various complaints including the right subcostal pain as well as problems with constipation and persistent vomiting. 09/04: This morning the patient is asleep in bed but does awaken to voice. After that she is alert. She states that she continues to have pain to the right lower abdominal wall toward the flank. The pain at the right epigastric incision has improved. She continues to have nausea and vomiting with oral hydromorphone. She does say she has a migraine today. She does have some mild right lower extremity weakness. Earlier this morning Nursing reported that the patient was refusing to take the oral hydromorphone and wanted it intravenously. 09/05: When seen this afternoon the patient is awake in the bed watching TV and talking with the Type Caster. She states that she does have pain to the right lower rib area between the abdominal wall surgical incisions. She has no headache or dizziness today. There is no change in her sensorimotor exam. Her abdomen is soft and nontender from the epigastric abdominal wall surgical incision inferiorly and laterally. (Chandrakant Yeung) Exam Results 09/03/17 09/03/17 09/04/17 09/04/17 09/05/1709/05/18 06:00 18:00 06:00 18:00 06:00 18:00 Intake Total 1000 ml Balance 1000 ml Intake IV Total 1000 ml # Voids 1 2 1 4 Vital Signs Date Time Temp Pulse Resp B/P (MAP) Pulse Ox O2 Delivery O2 Flow Rate FiO2 09/05/17 12:00 98.6 60 18 113/57 (75) 97 09/05/17 08:00 98.2 86 16 110/62 (78) 96 09/05/17 04:00 98.1 50 18 100/50 (67) 95 09/05/17 00:00 97.7 56 18 95/57 (70) 93 09/04/17 20:00 97.9 61 18 133/75 (94) 99 09/04/17 16:00 98.4 54 18 122/58 (79) 96 09/04/17 12:00 58 18 100/56 (71) 95 09/04/17 07:57 57 18 108/49 (68) 97 09/04/17 00:00 97.8 57 18 134/72 (92) 99 09/03/17 21:20 98.3 60 17 142/83 (102) 99 09/03/17 15:10 51 18 113/65 (81) 95 09/03/17 14:55 58 18 113/60 (77) 92 09/03/17 14:40 97.8 56 18 120/64 (82) 96 09/03/17 12:08 97.2 54 20 118/59 (78) 96 09/03/17 07:48 98.0 73 20 115/57 (76) 96 09/03/17 05:38 97.7 61 18 113/55 (74) 98 09/03/17 00:20 97.7 63 18 136/71 (92) 98 09/02/17 23:11 09/02/17 22:40 60 16 127/87 (100) 98 Room Air 09/02/17 22:06 97 Room Air 09/02/17 20:54 98.2 87 18 131/89 (103) 97 (Chandrakant Yeung) Physical Examination GENERAL: Awake & alert in bed talking with the Type Caster. Affect is essentially normal & she interacts readily. She appears fairly comfortable & not in any distress. HEENT: Normocephalic, atraumatic. GASTROINTESTINAL: Abdomen soft, no apparent TTP of the epigastric incision, NTTP to the right lower lateral abdominal wall. The right upper lateral wall incision is well healed w/o complication and is NTTP. MUSCULOSKELETAL: HOUSE spontaneously & purposefully w/o difficulty. NEUROLOGICAL: AAOx3. Speech clear & appropriate. Follows simple commands w/o difficulty. Sensation is intact to light touch to the lower extremities. Motor strength is 5/5 to the LLE and 4+/5 to the RLE. (Chandrakant Yeung) Lab, Micro, Other Results Recent Impressions Therapeutic Steroid Injection 09/03/17 1416 Signed Impressions: Service Date/Time: Sunday, September 03, 2017 13:46 - CONCLUSION: Uncomplicated CT guided long-acting anesthetic injection as above. Josue Vargas MD Needle Aspiration CT 09/03/17 0000 Signed Impressions: Service Date/Time: Sunday, September 03, 2017 13:46 - CONCLUSION: 1. Uncomplicated CT-guided aspiration of inflammatory tissue near the patient's right upper quadrant pump. Josue Vargas MD Chest X-Ray 09/02/178 Signed Impressions: Service Date/Time: Saturday, September 02, 2017 21:24 - CONCLUSION: No acute disease. Wallace Bill MD Laboratory Tests Test 09/02/17 22:00 White Blood Count 11.4 TH/MM3 Red Blood Count 4.61 MIL/MM3 Hemoglobin 12.4 GM/DL Hematocrit 37.6 % Mean Corpuscular Volume 81.5 FL Mean Corpuscular Hemoglobin 27.0 PG Mean Corpuscular Hemoglobin Concent 33.1 % Red Cell Distribution Width 13.5 % Platelet Count 342 TH/MM3 Mean Platelet Volume 8.1 FL Neutrophils (%) (Auto) 53.8 % Lymphocytes (%) (Auto) 35.8 % Monocytes (%) (Auto) 7.5 % Eosinophils (%) (Auto) 2.3 % Basophils (%) (Auto) 0.6 % Neutrophils # (Auto) 6.1 TH/MM3 Lymphocytes # (Auto) 4.1 TH/MM3 Monocytes # (Auto) 0.9 TH/MM3 Eosinophils # (Auto) 0.3 TH/MM3 Basophils # (Auto) 0.1 TH/MM3 CBC Comment DIFF FINAL Differential Comment Erythrocyte Sedimentation Rate 45 mm/hr Prothrombin Time 10.4 SEC Prothromb Time International Ratio 1.0 RATIO Activated Partial Thromboplast Time 26.5 SEC Urine Color YELLOW Urine Turbidity HAZY Urine pH 6.0 Urine Specific [place] 1.028 Urine Protein TRACE mg/dL Urine Glucose (UA) NEG mg/dL Urine Ketones NEG mg/dL Urine Occult Blood NEG Urine Nitrite NEG Urine Bilirubin NEG Urine Urobilinogen 2.0 MG/DL Urine Leukocyte Esterase MOD Urine Squamous Epithelial Cells 7 /hpf Urine Granular Casts 3 /lpf Urine Mucus MANY /lpf Microscopic Urinalysis Comment CULT NOT INDICATED Blood Urea Nitrogen 18 MG/DL Creatinine 0.67 MG/DL Random Glucose 89 MG/DL Total Protein 7.3 GM/DL Albumin 3.6 GM/DL Calcium Level 8.9 MG/DL Alkaline Phosphatase 84 U/L Aspartate Amino Transf (AST/SGOT) 13 U/L Alanine Aminotransferase (ALT/SGPT) 22 U/L Total Bilirubin 0.3 MG/DL Direct Bilirubin 0.1 MG/DL Sodium Level 141 MEQ/L Potassium Level 3.6 MEQ/L Chloride Level 104 MEQ/L Carbon Dioxide Level 28.2 MEQ/L Anion Gap 9 MEQ/L Estimat Glomerular Filtration Rate 102 ML/MIN Indirect Bilirubin 0.2 MG/DL Total Creatine Kinase 64 U/L Troponin I LESS THAN 0.02 NG/ML C-Reactive Protein 0.45 MG/DL Lipase 76 U/L (Chandrakant Yeung) Medical Decision Making Impression and Plan Impression: 1. Persistent right subcostal-upper abdominal pain at the abdominal lumboperitoneal shunt placement site. The shunt catheter may be irritating the lower diaphragmatic region. The patient states that she is having pain although she appears comfortable. There is no change in her abdominal wall or sensorimotor exam. Intermittent bradycardia. Fluid aspirate () w/no organisms or WBCs seen on Gram stain final 2017, culture no growth x48 hrs. Plan: Regular diet. Neuro checks q4h. Vital signs q4h. Mobilise patient w/assistance as needed. Elevate HOB. Procedure site dressing changes QD & PRN. Continue present pain & N/V medication regimen. (Chandrakant Yeung) Attending Statement The exam, history, and the medical decision-making described in the above note were completed with the assistance of the mid-level provider. I reviewed and agree with the findings presented. I attest that I had a [id number] encounter with the patient on the same day, and personally performed and documented my assessment and findings in the medical record. On my examination 09/05/2017, patient awake and alert. No significant erythema or edema over the 3 lumboperitoneal incision sites. Persistent tenderness over the left subcostal margin, primarily just lateral to the abdominal incision site. Her pain continues to improve. She complains of persistent nausea with the oral Dilaudid although this does seem to help her pain. This is been changed to IV Dilaudid. She is again advised that we need to try to wean down her medications as much as possible to limit nausea and constipation. She is in agreement with this plan. Cultures no growth so far. (Mamadou Cerrato MD) Chandrakant Yeung September 05, 2017 15:43 Mamadou Cerrato MD September 08, 2017 08:36
[2017-09-05 16:00] VITALS: BP 102/45; PULSE 71; RESP 18; TEMP 98.3; O2SAT 96
[2017-09-05] MEDS: 1/2 NS + KCL 20 MEQ INJ 1,000 ML IV SCH (22:28)
[2017-09-06] MEDS: HYDROmorphone HCL PF 2 MG/ML VIAL IV PUSH PRN ×8 (00:11→22:45)
[2017-09-06] MEDS: DOCUSATE SODIUM 50 MG/SENNA 8.6 MG TAB PO SCH ×2 (07:32→22:43)
[2017-09-06] MEDS: TOPIRAMATE 100 MG TAB PO SCH ×2 (07:33→22:43)
[2017-09-06] MEDS: MORPHINE SULFATE 15 MG CONTROLLED RELEASE TAB PO SCH ×2 (07:34→22:44)
[2017-09-06 08:00] VITALS: BP 132/70; PULSE 63; RESP 20; TEMP 98.6; O2SAT 99
--- NOTE | 2017-09-06 12:58 | HHI.NSPN ---
(Stella Hillman) Note Status Status: Progress Note (Stella Hillman) Interval History Interval History 09/03: Ms. Mayberry is a 32-year-old female who previously underwent lumboperitoneal shunt placement 08/12/2017 for treatment of idiopathic intracranial hypertension. She has had significant persistent pain in the right subcostal region at the shunt distal catheter insertion site since surgery. She indicates that the pain seemed a little better a week ago, but over this past weekend significantly increased. She has had no fevers or chills. She does complain of persistent nausea and vomiting, somewhat increased over the weekend, although she has also been taking more hydromorphone , which seemed to cause nausea. She remains on MS Contin 15 mg twice daily. No diarrhea. Intermittent constipation. She is taking laxative at home. The patient has presented back to the emergency room several times since surgery, for various complaints including the right subcostal pain as well as problems with constipation and persistent vomiting. 09/04: This morning the patient is asleep in bed but does awaken to voice. After that she is alert. She states that she continues to have pain to the right lower abdominal wall toward the flank. The pain at the right epigastric incision has improved. She continues to have nausea and vomiting with oral hydromorphone. She does say she has a migraine today. She does have some mild right lower extremity weakness. Earlier this morning Nursing reported that the patient was refusing to take the oral hydromorphone and wanted it intravenously. 09/05: When seen this afternoon the patient is awake in the bed watching TV and talking with the Edge Runner. She states that she does have pain to the right lower rib area between the abdominal wall surgical incisions. She has no headache or dizziness today. There is no change in her sensorimotor exam. Her abdomen is soft and nontender from the epigastric abdominal wall surgical incision inferiorly and laterally. 09/06: Reports overall she is feeling better, her headaches has improved as well as her abdominal pain. She is ambulating to the bathroom. (Stella Hillman) Labs, Micro, & Vital Signs Results Date Time Temp Pulse Resp B/P (MAP) Pulse Ox O2 Delivery O2 Flow Rate FiO2 09/06/17 12:14 16 09/06/17 08:46 16 09/05/17 16:00 98.3 71 18 102/45 (64) 96 Constitutional Vital Signs Date Time Temp Pulse Resp B/P (MAP) Pulse Ox O2 Delivery O2 Flow Rate FiO2 09/06/17 12:14 16 09/06/17 08:46 16 09/05/17 16:00 98.3 71 18 102/45 (64) 96 (Stella Hillman) Review of Systems Constitutional: DENIES: Fever Cardiovascular: DENIES: Chest pain Gastrointestinal: COMPLAINS OF: Abdominal pain Musculoskeletal: COMPLAINS OF: Muscle aches (Stella Hillman) Physical Exam GENERAL: Ambulating with a rolling walker, no acute distress. HEENT: Normocephalic MUSCULOSKELETAL: Moving all 4 extremities with good strength NEUROLOGICAL: Alert, conversing well. Speech is fluent. Pupils equal. Facial motor symmetric. Skin : Axial lumbar wound with small scab. Right upper abdominal incision appears to have well healed, small round scab noted without signs of infection. (Stella Hillman) Medications Current Medications Current Medications Medications (Trade) Dose Ordered Sig/Jd Route PRN Reason Start Time Stop Time Status Last Admin Dose Admin Potassium Chloride/Sodium Chloride 1,000 ml @ 30 mls/hr Q24H IV 09/02/17 22:13 09/05/17 22:28 Acetaminophen/ Hydrocodone Bitart ([place] 5-325 Mg) 1 tab Q4H PRN PO PAIN SCALE 3 TO 5 09/02/17 22:15 Morphine Sulfate (Morphine Inj) 2 mg Q3H PRN IV PUSH Pain 3-5; if unable to take PO 09/02/17 22:15 09/04/17 20:22 Morphine Sulfate (Morphine Inj) 4 mg Q3H PRN IV PUSH BREAKTHROUGH PAIN 09/02/17 22:15 Naloxone HCl (Narcan Inj) 0.4 mg UNSCH PRN IV PUSH SEE LABEL COMMENTS 09/02/17 22:15 Morphine Sulfate (Oramorph Sr) 15 mg Q12HR PO 09/03/17 09:00 09/06/17 07:34 Meclizine HCl (Antivert) 25 mg TID PRN PO VERTIGO 09/02/17 22:45 09/05/17 08:51 Ondansetron HCl (Zofran Odt) 4 mg Q8HR PRN SL Nausea/Vomiting 09/02/17 22:45 09/04/17 20:22 Senna/Docusate Sodium (Yojana-Colace) 1 tab BID PO 09/03/17 09:00 09/06/17 07:32 Topiramate (Topamax) 100 mg BID PO 09/03/17 09:00 09/06/17 07:33 Hydromorphone HCl (Dilaudid Pf Inj) 1 mg Q3H PRN IV PUSH Pain 6-10 09/04/17 23:00 09/06/17 11:34 (Stella Hillman) Medical Decision Making MDM Remarks 32-year-old female Idiopathic intracranial hypertension, status post placement of lumboperitoneal shunt by Dr. Cerrato readmitted for abdominal pain, status post aspiration of fluid collection, so far negative cultures her abdominal pain is improving Incisions appear to be healing well Headaches improved (Stella Hillman) Plan Plan Remarks continue neuro checks, continue supportive care with analgesics as needed Follow-up cultures continue PT (Stella Hillman) Attending Statement The exam, history, and the medical decision-making described in the above note were completed with the assistance of the mid-level provider. I reviewed and agree with the findings presented. I attest that I had a [id number] encounter with the patient on the same day, and personally performed and documented my assessment and findings in the medical record. (Rahul Tillman MD) Stella Hillman September 06, 2017 12:58 Rahul Tillman MD September 07, 2017 14:30
[2017-09-06 13:01] VITALS: BP 108/55; PULSE 58; RESP 20; TEMP 98.9; O2SAT 96
[2017-09-06 20:00] VITALS: BP 104/66; PULSE 72; RESP 18; TEMP 97.7; O2SAT 96
[2017-09-06] MEDS: 1/2 NS + KCL 20 MEQ INJ 1,000 ML IV SCH (22:13)
[2017-09-07] VITALS: BP 104/58; PULSE 64; RESP 18; TEMP 97.7; O2SAT 96
[2017-09-07] MEDS: HYDROmorphone HCL PF 2 MG/ML VIAL IV PUSH PRN ×7 (01:56→20:31)
[2017-09-07 04:00] VITALS: BP 111/56; PULSE 64; RESP 18; TEMP 98; O2SAT 96
[2017-09-07 08:00] VITALS: BP 135/92; PULSE 70; RESP 19; TEMP 97.8; O2SAT 96
[2017-09-07] MEDS: MORPHINE SULFATE 15 MG CONTROLLED RELEASE TAB PO SCH ×2 (08:00→20:30)
[2017-09-07] MEDS: TOPIRAMATE 100 MG TAB PO SCH ×2 (08:00→20:31)
[2017-09-07] MEDS: DOCUSATE SODIUM 50 MG/SENNA 8.6 MG TAB PO SCH ×2 (08:00→20:31)
--- NOTE | 2017-09-07 10:59 | HHI.NSPN ---
(Stella Hillman) Note Status Status: Progress Note (Stella Hillman) Interval History Interval History 09/03: Ms. Mayberry is a 32-year-old female who previously underwent lumboperitoneal shunt placement 08/12/2017 for treatment of idiopathic intracranial hypertension. She has had significant persistent pain in the right subcostal region at the shunt distal catheter insertion site since surgery. She indicates that the pain seemed a little better a week ago, but over this past weekend significantly increased. She has had no fevers or chills. She does complain of persistent nausea and vomiting, somewhat increased over the weekend, although she has also been taking more hydromorphone , which seemed to cause nausea. She remains on MS Contin 15 mg twice daily. No diarrhea. Intermittent constipation. She is taking laxative at home. The patient has presented back to the emergency room several times since surgery, for various complaints including the right subcostal pain as well as problems with constipation and persistent vomiting. 09/04: This morning the patient is asleep in bed but does awaken to voice. After that she is alert. She states that she continues to have pain to the right lower abdominal wall toward the flank. The pain at the right epigastric incision has improved. She continues to have nausea and vomiting with oral hydromorphone. She does say she has a migraine today. She does have some mild right lower extremity weakness. Earlier this morning Nursing reported that the patient was refusing to take the oral hydromorphone and wanted it intravenously. 09/05: When seen this afternoon the patient is awake in the bed watching TV and talking with the Armhole Raiser Lockstitch. She states that she does have pain to the right lower rib area between the abdominal wall surgical incisions. She has no headache or dizziness today. There is no change in her sensorimotor exam. Her abdomen is soft and nontender from the epigastric abdominal wall surgical incision inferiorly and laterally. 09/06: Reports overall she is feeling better, her headaches has improved as well as her abdominal pain. She is ambulating to the bathroom. 09/07: constipated, resting in bed. (Stella Hillman) Labs, Micro, & Vital Signs Results Date Time Temp Pulse Resp B/P (MAP) Pulse Ox O2 Delivery O2 Flow Rate FiO2 09/07/17 08:35 16 09/07/17 08:35 16 09/07/17 08:00 97.8 70 19 135/92 (106) 96 09/07/17 04:00 98.0 64 18 111/56 (74) 96 09/07/17 00:00 97.7 64 18 104/58 (73) 96 09/06/17 20:00 97.7 72 18 104/66 (79) 96 09/06/17 17:24 16 09/06/17 13:01 98.9 58 20 108/55 (72) 96 Constitutional Vital Signs Date Time Temp Pulse Resp B/P (MAP) Pulse Ox O2 Delivery O2 Flow Rate FiO2 09/07/17 08:35 16 09/07/17 08:35 16 09/07/17 08:00 97.8 70 19 135/92 (106) 96 09/07/17 04:00 98.0 64 18 111/56 (74) 96 09/07/17 00:00 97.7 64 18 104/58 (73) 96 09/06/17 20:00 97.7 72 18 104/66 (79) 96 09/06/17 17:24 16 09/06/17 13:01 98.9 58 20 108/55 (72) 96 (Stella Hillman) Physical Exam GENERAL: Ambulating with a rolling walker, no acute distress. HEENT: Normocephalic MUSCULOSKELETAL: Moving all 4 extremities with good strength NEUROLOGICAL: Alert, conversing well. Speech is fluent. Pupils equal. Facial motor symmetric. Skin : Axial lumbar wound with small scab. Right upper abdominal incision appears to have well healed, small round scab noted without signs of infection. (Stella Hillman) Medications Current Medications Current Medications Medications (Trade) Dose Ordered Sig/Jd Route PRN Reason Start Time Stop Time Status Last Admin Dose Admin Potassium Chloride/Sodium Chloride 1,000 ml @ 30 mls/hr Q24H IV 09/02/17 22:13 09/05/17 22:28 Acetaminophen/ Hydrocodone Bitart ([place] 5-325 Mg) 1 tab Q4H PRN PO PAIN SCALE 3 TO 5 09/02/17 22:15 09/06/17 16:14 Morphine Sulfate (Morphine Inj) 2 mg Q3H PRN IV PUSH Pain 3-5; if unable to take PO 09/02/17 22:15 09/04/17 20:22 Morphine Sulfate (Morphine Inj) 4 mg Q3H PRN IV PUSH BREAKTHROUGH PAIN 09/02/17 22:15 Naloxone HCl (Narcan Inj) 0.4 mg UNSCH PRN IV PUSH SEE LABEL COMMENTS 09/02/17 22:15 Morphine Sulfate (Oramorph Sr) 15 mg Q12HR PO 09/03/17 09:00 09/07/17 08:00 Meclizine HCl (Antivert) 25 mg TID PRN PO VERTIGO 09/02/17 22:45 09/05/17 08:51 Ondansetron HCl (Zofran Odt) 4 mg Q8HR PRN SL Nausea/Vomiting 09/02/17 22:45 09/04/17 20:22 Senna/Docusate Sodium (Yojana-Colace) 1 tab BID PO 09/03/17 09:00 09/07/17 08:00 Topiramate (Topamax) 100 mg BID PO 09/03/17 09:00 09/07/17 08:00 Hydromorphone HCl (Dilaudid Pf Inj) 1 mg Q3H PRN IV PUSH Pain 6-10 09/04/17 23:00 09/07/17 08:01 (Stella Hillman) Medical Decision Making MDM Remarks 32-year-old female Idiopathic intracranial hypertension, status post placement of lumboperitoneal shunt by Dr. Cerrato readmitted for abdominal pain, status post aspiration of fluid collection, so far negative cultures her abdominal pain is improving Incisions appear to be healing well Headaches improved (Stella Hillman) Plan Plan Remarks continue neuro checks, continue supportive care with analgesics as needed Follow-up cultures continue PT, mag citrate for constipation, (Stella Hillman) Attending Statement The exam, history, and the medical decision-making described in the above note were completed with the assistance of the mid-level provider. I reviewed and agree with the findings presented. I attest that I had a [id number] encounter with the patient on the same day, and personally performed and documented my assessment and findings in the medical record. (Rahul Tillman MD) Stella Hillman September 07, 2017 10:59 Rahul Tillman MD September 07, 2017 14:32
[2017-09-07 12:00] VITALS: BP 126/84; PULSE 78; RESP 19; TEMP 98.4; O2SAT 96
[2017-09-07] MEDS: MAGNESIUM CITRATE SOLN 300 ML BTL PO PRN (12:25)
[2017-09-07] MEDS: ONDANSETRON ODT 4 MG TAB SL PRN (14:15)
[2017-09-07] MEDS: MECLIZINE HCL 25 MG TAB PO PRN (14:16)
[2017-09-07 16:00] VITALS: BP 135/79; PULSE 82; RESP 18; TEMP 98.9; O2SAT 95
[2017-09-07 20:00] VITALS: BP 100/53; PULSE 70; RESP 18; TEMP 98.3; O2SAT 96
[2017-09-07] MEDS: 1/2 NS + KCL 20 MEQ INJ 1,000 ML IV SCH (20:31)
[2017-09-08] VITALS: BP 100/53; PULSE 74; RESP 18; TEMP 97.8; O2SAT 96
[2017-09-08] MEDS: HYDROmorphone HCL PF 2 MG/ML VIAL IV PUSH PRN ×7 (00:12→22:59)
[2017-09-08 06:42] VITALS: BP 110/53; PULSE 68; RESP 18; TEMP 98; O2SAT 99
[2017-09-08 08:00] VITALS: BP 120/60; PULSE 61; RESP 20; TEMP 98.1; O2SAT 99
[2017-09-08] MEDS: TOPIRAMATE 100 MG TAB PO SCH ×2 (09:28→21:27)
[2017-09-08] MEDS: DOCUSATE SODIUM 50 MG/SENNA 8.6 MG TAB PO SCH ×2 (09:29→21:28)
[2017-09-08] MEDS: MORPHINE SULFATE 15 MG CONTROLLED RELEASE TAB PO SCH ×2 (09:29→21:28)
[2017-09-08] MEDS: LIDOCAINE HCL 5% PATCH T-DERMAL SCH (10:15)
--- NOTE | 2017-09-08 10:59 | HHI.NSPN ---
(Chandrakant Yeung) History Chief Complaint: Continues to have right-side abdominal wall pain. (Chandrakant Yeung) Interval History 09/03: Ms. Mayberry is a 32-year-old female who previously underwent lumboperitoneal shunt placement 08/12/2017 for treatment of idiopathic intracranial hypertension. She has had significant persistent pain in the right subcostal region at the shunt distal catheter insertion site since surgery. She indicates that the pain seemed a little better a week ago, but over this past weekend significantly increased. She has had no fevers or chills. She does complain of persistent nausea and vomiting, somewhat increased over the weekend, although she has also been taking more hydromorphone , which seemed to cause nausea. She remains on MS Contin 15 mg twice daily. No diarrhea. Intermittent constipation. She is taking laxative at home. The patient has presented back to the emergency room several times since surgery, for various complaints including the right subcostal pain as well as problems with constipation and persistent vomiting. 09/04: This morning the patient is asleep in bed but does awaken to voice. After that she is alert. She states that she continues to have pain to the right lower abdominal wall toward the flank. The pain at the right epigastric incision has improved. She continues to have nausea and vomiting with oral hydromorphone. She does say she has a migraine today. She does have some mild right lower extremity weakness. Earlier this morning Nursing reported that the patient was refusing to take the oral hydromorphone and wanted it intravenously. 09/05: When seen this afternoon the patient is awake in the bed watching TV and talking with the Conditioning Machine Operator. She states that she does have pain to the right lower rib area between the abdominal wall surgical incisions. She has no headache or dizziness today. There is no change in her sensorimotor exam. Her abdomen is soft and nontender from the epigastric abdominal wall surgical incision inferiorly and laterally. 09/06: Reports overall she is feeling better, her headaches has improved as well as her abdominal pain. She is ambulating to the bathroom. 09/07: constipated, resting in bed. 09/08: The patient is awake in bed on her cellphone. She continues to have right -sided abdominal wall pain. She did have a slight headache and dizziness earlier. There is no change in her motor strength. (Chandrakant Yeung) Exam Results 09/06/17 09/06/17 09/07/17 09/07/17 09/08/17 09/08/17 06:00 18:00 06:00 18:00 06:00 18:00 Intake Total 100 ml 360 ml 780 ml Balance 100 ml 360 ml 780 ml Intake Oral 360 ml 780 ml IV Total 100 ml # Voids 3 3 # Bowel Movements 1 Vital Signs Date Time Temp Pulse Resp B/P (MAP) Pulse Ox O2 Delivery O2 Flow Rate FiO2 09/08/17 08:00 98.1 61 20 120/60 (80) 99 09/08/17 06:42 98.0 68 18 110/53 (72) 99 09/08/17 00:00 97.8 74 18 100/53 (69) 96 09/07/17 20:00 98.3 70 18 100/53 (69) 96 09/07/17 17:54 16 09/07/17 16:00 98.9 82 18 135/79 (97) 95 09/07/17 12:00 98.4 78 19 126/84 (98) 96 09/07/17 08:35 16 09/07/17 08:00 97.8 70 19 135/92 (106) 96 09/07/17 04:00 98.0 64 18 111/56 (74) 96 09/07/17 00:00 97.7 64 18 104/58 (73) 96 09/06/17 20:00 97.7 72 18 104/66 (79) 96 09/06/17 17:24 16 09/06/17 13:01 98.9 58 20 108/55 (72) 96 09/06/17 08:00 98.6 63 20 132/70 (90) 99 09/05/17 16:00 98.3 71 18 102/45 (64) 96 09/05/17 12:00 98.6 60 18 113/57 (75) 97 (Chandrakant Yeung) Physical Examination GENERAL: Awake & alert in bed on her cellphone. Her affect is slightly flat but she interacts readily. She appears comfortable & not in any distress. HEENT: Normocephalic, atraumatic. PERRLA 4 mm brisk, EOMI. MMM & pink, tongue midline to protrusion. GASTROINTESTINAL: Abdomen soft, mildly TTP at the epigastric incision, NTTP to the right lower lateral abdominal wall. The right upper lateral wall incision is well healed w/o complication and is NTTP. MUSCULOSKELETAL: HOUSE spontaneously & purposefully w/o difficulty. NEUROLOGICAL: AAOx3. Speech clear & appropriate. Follows simple commands w/o difficulty. CN II through XII grossly intact. PERRLA 4 mm brisk, EOMI. Tongue midline to protrusion. Sensation is intact to light touch to the lower extremities. Motor strength is 5/5 to the LLE and 4+/5 to the RLE. (Chnadrakant Yeung) Medical Decision Making Impression and Plan Impression: 1. Persistent right subcostal-upper abdominal pain at the abdominal lumboperitoneal shunt placement site. The shunt catheter may be irritating the lower diaphragmatic region. The patient continues to have right-sided abdominal wall pain although she appears comfortable. There is no change in her sensorimotor exam. Fluid aspirate () w/no growth x72 hrs on final . Plan: Regular diet. Neuro checks q4h. Vital signs q4h. Mobilise patient w/assistance as needed. Elevate HOB. Procedure site dressing changes QD & PRN. Continue present pain & N/V medication regimen. Will add Lidoderm 5% patch transdermally QD for 12 hrs. (Chandrakant Yeung) Attending Statement The exam, history, and the medical decision-making described in the above note were completed with the assistance of the mid-level provider. I reviewed and agree with the findings presented. I attest that I had a [id number] encounter with the patient on the same day, and personally performed and documented my assessment and findings in the medical record. On my examination of the patient on 09/08/2017, she is awake and alert. She is in bed. She states that the right upper quadrant-anterior subcostal pain is better today. She also does not complain of any discomfort over the right lateral flank incision. She points to an area over the lateral right upper quadrant a few centimeters medial to the right flank incision which she states is still painful. Palpation over this region yields mostly moderate tenderness to deep palpation. There is no significant erythema edema over the incision sites or the shunt catheter tract and no drainage. The abdomen is soft, otherwise nontender. Findings were discussed with the patient. She is encouraged to mobilize out of bed. She is advised that she needs to start weaning off of the narcotic medications. Lidoderm patch will be used over the right anterolateral quadrant residual painful region. (Mamadou Cerrato MD) Chandrakant Yeung September 08, 2017 10:59 Mamadou Cerrato MD September 09, 2017 13:13
[2017-09-08 11:02] VITALS: BP 102/70; PULSE 63; RESP 20; TEMP 98.6; O2SAT 99
[2017-09-08] MEDS: MECLIZINE HCL 25 MG TAB PO PRN (13:42)
[2017-09-08 15:40] VITALS: BP 109/57; PULSE 67; RESP 20; TEMP 98.2; O2SAT 98
[2017-09-08] MEDS: REMOVE OLD PATCH T-DERMAL SCH (21:28)
[2017-09-08] MEDS: 1/2 NS + KCL 20 MEQ INJ 1,000 ML IV SCH (22:13)
[2017-09-08 22:30] VITALS: BP 114/64; PULSE 67; RESP 19; TEMP 98.6; O2SAT 95
[2017-09-09 00:50] VITALS: BP 115/67; PULSE 66; RESP 18; TEMP 97.4; O2SAT 98
[2017-09-09] MEDS: HYDROmorphone HCL PF 2 MG/ML VIAL IV PUSH PRN ×6 (01:54→23:04)
[2017-09-09 04:40] VITALS: BP 100/59; PULSE 54; RESP 18; TEMP 98; O2SAT 98
[2017-09-09 08:00] VITALS: BP 120/61; PULSE 62; RESP 20; TEMP 98.1; O2SAT 94
[2017-09-09] MEDS: DOCUSATE SODIUM 50 MG/SENNA 8.6 MG TAB PO SCH ×2 (09:20→20:14)
[2017-09-09] MEDS: MECLIZINE HCL 25 MG TAB PO PRN ×2 (09:20→16:55)
[2017-09-09] MEDS: MORPHINE SULFATE 15 MG CONTROLLED RELEASE TAB PO SCH ×2 (09:21→20:14)
[2017-09-09] MEDS: TOPIRAMATE 100 MG TAB PO SCH ×2 (09:21→20:13)
[2017-09-09] MEDS: LIDOCAINE HCL 5% PATCH T-DERMAL SCH (09:23)
--- NOTE | 2017-09-09 11:52 | HHI.NSPN ---
(Chandrakant YeungCheryl TOUREP) History Chief Complaint: Right side abdominal pain (Chandrakant Yeung) Interval History 09/03: Ms. Mayberry is a 32-year-old female who previously underwent lumboperitoneal shunt placement 08/12/2017 for treatment of idiopathic intracranial hypertension. She has had significant persistent pain in the right subcostal region at the shunt distal catheter insertion site since surgery. She indicates that the pain seemed a little better a week ago, but over this past weekend significantly increased. She has had no fevers or chills. She does complain of persistent nausea and vomiting, somewhat increased over the weekend, although she has also been taking more hydromorphone , which seemed to cause nausea. She remains on MS Contin 15 mg twice daily. No diarrhea. Intermittent constipation. She is taking laxative at home. The patient has presented back to the emergency room several times since surgery, for various complaints including the right subcostal pain as well as problems with constipation and persistent vomiting. 09/04: This morning the patient is asleep in bed but does awaken to voice. After that she is alert. She states that she continues to have pain to the right lower abdominal wall toward the flank. The pain at the right epigastric incision has improved. She continues to have nausea and vomiting with oral hydromorphone. She does say she has a migraine today. She does have some mild right lower extremity weakness. Earlier this morning Nursing reported that the patient was refusing to take the oral hydromorphone and wanted it intravenously. 09/05: When seen this afternoon the patient is awake in the bed watching TV and talking with the Porcelain Enamel Sprayer. She states that she does have pain to the right lower rib area between the abdominal wall surgical incisions. She has no headache or dizziness today. There is no change in her sensorimotor exam. Her abdomen is soft and nontender from the epigastric abdominal wall surgical incision inferiorly and laterally. 09/06: Reports overall she is feeling better, her headaches has improved as well as her abdominal pain. She is ambulating to the bathroom. 09/07: constipated, resting in bed. 09/08: The patient is awake in bed on her cellphone. She continues to have right -sided abdominal wall pain. She did have a slight headache and dizziness earlier. There is no change in her motor strength. 09/09: This morning the patient is awake and looking at her cellphone. She states that the right side of her abdomen is "so-so." She does state that the patch has helped some. She says her headaches have been from her using her head to turn. Her exam is essentially the same. She does complain that she was sitting on the toilet for over an hour yesterday because no one answered the call light and her family eventually had to call the front desk associate for help. (Chandrakant Yeung) Exam Results 09/07/17 09/07/17 09/08/17 09/08/17 09/09/17 09/09/17 06:00 18:00 06:00 18:00 06:00 18:00 Intake Total 360 ml 780 ml 720 ml 1375 ml Balance 360 ml 780 ml 720 ml 1375 ml Intake Oral 360 ml 780 ml 720 ml 1375 ml # Voids 3 3 4 # Bowel Movements 1 4 0 Vital Signs Date Time Temp Pulse Resp B/P (MAP) Pulse Ox O2 Delivery O2 Flow Rate FiO2 09/09/17 08:00 98.1 62 20 120/61 (80) 94 09/09/17 04:40 98.0 54 18 100/59 (73) 98 09/09/17 00:50 97.4 66 18 115/67 (83) 98 09/08/17 22:30 98.6 67 19 114/64 (81) 95 09/08/17 15:40 98.2 67 20 109/57 (74) 98 09/08/17 11:02 98.6 63 20 102/70 (81) 99 09/08/17 08:00 98.1 61 20 120/60 (80) 99 09/08/17 06:42 98.0 68 18 110/53 (72) 99 09/08/17 00:00 97.8 74 18 100/53 (69) 96 09/07/17 20:00 98.3 70 18 100/53 (69) 96 09/07/17 17:54 16 09/07/17 16:00 98.9 82 18 135/79 (97) 95 09/07/17 12:00 98.4 78 19 126/84 (98) 96 09/07/17 08:35 16 09/07/17 08:00 97.8 70 19 135/92 (106) 96 09/07/17 04:00 98.0 64 18 111/56 (74) 96 09/07/17 00:00 97.7 64 18 104/58 (73) 96 09/06/17 20:00 97.7 72 18 104/66 (79) 96 09/06/17 17:24 16 09/06/17 13:01 98.9 58 20 108/55 (72) 96 (Chandrakant Yeung) Physical Examination GENERAL: Awake & alert in bed on her cellphone. Her affect is slightly flat but she interacts readily. She appears comfortable & not in any distress. HEENT: Normocephalic, atraumatic. GASTROINTESTINAL: Abdomen soft, moderately TTP at the epigastric incision & the right lateral abdominal wall. MUSCULOSKELETAL: HOUSE spontaneously & purposefully w/o difficulty. NEUROLOGICAL: AAOx3. Speech clear & appropriate. Follows simple commands w/o difficulty. Sensation is intact to light touch to the lower extremities. Motor strength is 5/5 to the LLE and 4+/5 to the RLE. (Chandrakant Yeung) Medical Decision Making Impression and Plan Impression: 1. Persistent right subcostal-upper abdominal pain at the abdominal lumboperitoneal shunt placement site. The shunt catheter may be irritating the lower diaphragmatic region. The patient still has right-sided abdominal wall pain that is "so-so." There is no change in her sensorimotor exam. Fluid aspirate () w/no growth x72 hrs on final . Plan: Regular diet. Neuro checks q4h. Vital signs q4h. Mobilise patient w/assistance as needed. Elevate HOB. Procedure site dressing changes QD & PRN. Continue present pain & N/V medication regimen. (Chandrakant Yeung) Attending Statement The exam, history, and the medical decision-making described in the above note were completed with the assistance of the mid-level provider. I reviewed and agree with the findings presented. I attest that I had a [id number] encounter with the patient on the same day, and personally performed and documented my assessment and findings in the medical record. On examination today, Ms. Mayberry complains of a little worsening of a pressure type headache at the skull base over the past few days. No nausea or emesis. No complaint of constipation or diarrhea. Her pain along the right flank and subcostal margin seems a little better in the past couple of days. She went approximately 7 hours today without any IV Dilaudid, but indicates tonight that she is upset because she asked the nurse for the medication but had to go more than 3 hours without the IV medication. Her visual hyatt seem relatively stable, perhaps not quite as good as in the first week postoperative. I had a long discussion with her regarding the treatment plan going forward. She needs to wean off of the narcotics, particularly the IV Dilaudid. She seems reluctant to do this and requests that we wait till the morning to wean the Dilaudid. We will change her medications in the morning decreasing the IV Dilaudid to 0.5 mg every 3 hours for breakthrough pain and begin Dilaudid oral tablets as needed for more severe pain with goal to discontinue IV medication by 09/11/2017. A pressure type headache persists, a increase in the shunt pressure may be considered. So far no definite evidence of infection at the operative site. (Mamadou Cerrato MD) Chandrakant Yeung September 09, 2017 11:52 Mamadou Cerrato MD September 09, 2017 20:50
[2017-09-09 12:00] VITALS: BP 120/75; PULSE 75; RESP 20; TEMP 98.3; O2SAT 95
[2017-09-09 16:00] VITALS: BP 99/57; PULSE 79; RESP 20; TEMP 98.3; O2SAT 97
[2017-09-09 20:00] VITALS: BP 102/59; PULSE 66; RESP 20; TEMP 97.7; O2SAT 97
[2017-09-09] MEDS: 1/2 NS + KCL 20 MEQ INJ 1,000 ML IV SCH (20:15)
[2017-09-09] MEDS: REMOVE OLD PATCH T-DERMAL SCH (20:15)
[2017-09-10] VITALS: BP 113/63; PULSE 68; RESP 20; TEMP 98.7; O2SAT 96
[2017-09-10] MEDS: HYDROmorphone HCL PF 2 MG/ML VIAL IV PUSH PRN ×2 (03:42→06:26)
[2017-09-10 04:00] VITALS: BP 125/76; PULSE 62; RESP 20; TEMP 97.8; O2SAT 99
[2017-09-10 08:14] VITALS: BP 114/63; PULSE 55; RESP 20; TEMP 97.8; O2SAT 98
[2017-09-10] MEDS ORDERED: HYDROmorphone HCL PF 0.5 MG/0.5 ML SYRINGE IV PUSH PRN (08:45)
[2017-09-10] MEDS ORDERED: NALOXONE HCL 0.4 MG/ML AMP IV PUSH PRN (08:45)
[2017-09-10] MEDS: MORPHINE SULFATE 15 MG CONTROLLED RELEASE TAB PO SCH ×2 (09:23→20:05)
[2017-09-10] MEDS: TOPIRAMATE 100 MG TAB PO SCH ×2 (09:23→20:05)
[2017-09-10] MEDS: DOCUSATE SODIUM 50 MG/SENNA 8.6 MG TAB PO SCH ×2 (09:24→20:05)
[2017-09-10] MEDS: LIDOCAINE HCL 5% PATCH T-DERMAL SCH (09:25)
[2017-09-10] MEDS ORDERED: HYDROmorphone HCL PF 2 MG/ML VIAL IV PUSH ONE (10:45)
[2017-09-10 12:00] VITALS: BP 115/72; PULSE 67; RESP 20; TEMP 97.9; O2SAT 98
[2017-09-10] MEDS: HYDROmorphone HCL 2 MG TAB PO PRN ×3 (13:23→22:47)
--- NOTE | 2017-09-10 15:58 | HHI.NSPN ---
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 Mayberry is a 32-year-old female who previously underwent lumboperitoneal shunt placement 08/12/2017 for treatment of idiopathic intracranial hypertension. She has had significant persistent pain in the right subcostal region at the shunt distal catheter insertion site since surgery. She indicates that the pain seemed a little better a week ago, but over this past weekend significantly increased. She has had no fevers or chills. She does complain of persistent nausea and vomiting, somewhat increased over the weekend, although she has also been taking more hydromorphone , which seemed to cause nausea. She remains on MS Contin 15 mg twice daily. No diarrhea. Intermittent constipation. She is taking laxative at home. The patient has presented back to the emergency room several times since surgery, for various complaints including the right subcostal pain as well as problems with constipation and persistent vomiting. 09/04: This morning the patient is asleep in bed but does awaken to voice. After that she is alert. She states that she continues to have pain to the right lower abdominal wall toward the flank. The pain at the right epigastric incision has improved. She continues to have nausea and vomiting with oral hydromorphone. She does say she has a migraine today. She does have some mild right lower extremity weakness. Earlier this morning Nursing reported that the patient was refusing to take the oral hydromorphone and wanted it intravenously. 09/05: When seen this afternoon the patient is awake in the bed watching TV and talking with the Picc Nurse. She states that she does have pain to the right lower rib area between the abdominal wall surgical incisions. She has no headache or dizziness today. There is no change in her sensorimotor exam. Her abdomen is soft and nontender from the epigastric abdominal wall surgical incision inferiorly and laterally. 09/06: Reports overall she is feeling better, her headaches has improved as well as her abdominal pain. She is ambulating to the bathroom. 09/07: constipated, resting in bed. 09/08: The patient is awake in bed on her cellphone. She continues to have right -sided abdominal wall pain. She did have a slight headache and dizziness earlier. There is no change in her motor strength. 09/09: This morning the patient is awake and looking at her cellphone. She states that the right side of her abdomen is "so-so." She does state that the patch has helped some. She says her headaches have been from her using her head to turn. Her exam is essentially the same. She does complain that she was sitting on the toilet for over an hour yesterday because no one answered the call light and her family eventually had to call the front end alignment specialist for help. 09/10: When seen this afternoon the patient appears to be asleep. She did turn her head toward this practitioner's voice when greeted. She states that she is doing "So-so" and her pain is "so-so." She does have a headache still. Upon examination she is only tender at the epigastric surgical incision. Upon examination her motor strength varies with repeat testing. Patient being transitioned to oral pain medication and is tolerating oral hydromorphone and not requested any intravenous hydromorphone since this morning. She also has not reported any nausea. (Chandrakant Yeung) Exam Results 09/08/17 09/08/17 09/09/17 09/09/17 09/10/17 09/10/17 05:59 17:59 05:59 17:59 05:59 17:59 Intake Total 720 ml 1375 ml 480 ml 820 ml Balance 720 ml 1375 ml 480 ml 820 ml Intake Oral 720 ml 1375 ml 480 ml 820 ml # Voids 4 3 4 # Bowel Movements 4 0 1 1 Vital Signs Date Time Temp Pulse Resp B/P (MAP) Pulse Ox O2 Delivery O2 Flow Rate FiO2 09/10/17 12:00 97.9 67 20 115/72 (86) 98 09/10/17 08:14 97.8 55 20 114/63 (80) 98 09/10/17 04:00 97.8 62 20 125/76 (92) 99 09/10/17 00:00 98.7 68 20 113/63 (80) 96 09/09/17 20:00 97.7 66 20 102/59 (73) 97 5/15/18 16:00 98.3 79 20 99/57 (71) 97 09/09/17 12:00 98.3 75 20 120/75 (90) 95 09/09/17 08:00 98.1 62 20 120/61 (80) 94 09/09/17 04:40 98.0 54 18 100/59 (73) 98 09/09/17 00:50 97.4 66 18 115/67 (83) 98 09/08/17 22:30 98.6 67 19 114/64 (81) 95 09/08/17 15:40 98.2 67 20 109/57 (74) 98 09/08/17 11:02 98.6 63 20 102/70 (81) 99 09/08/17 08:00 98.1 61 20 120/60 (80) 99 09/08/17 06:42 98.0 68 18 110/53 (72) 99 09/08/17 00:00 97.8 74 18 100/53 (69) 96 09/07/17 20:00 98.3 70 18 100/53 (69) 96 09/07/17 17:54 16 09/07/17 16:00 98.9 82 18 135/79 (97) 95 (Chandrakant Yeung) Physical Examination GENERAL: Appears asleep but awakens to voice. Her affect is flat & she interacts slowly & reluctantly. She appears comfortable & not in any distress. HEENT: Normocephalic, atraumatic. GASTROINTESTINAL: Abdomen soft, vvsxfw-hg-cemxrjwwal TTP at the epigastric incision only. MUSCULOSKELETAL: HOUSE spontaneously & purposefully w/o difficulty. NEUROLOGICAL: AAOx3. Speech clear & appropriate. Follows commands at times difficulty. Sensation appears intact to light touch to the lower extremities. Patient with variable response to repeat testing of muscle groups w/most of the weakness being a reluctance to participate. (Chandrakant Yeung) Medical Decision Making Impression and Plan Impression: 1. Persistent right subcostal-upper abdominal pain at the abdominal lumboperitoneal shunt placement site. The shunt catheter may be irritating the lower diaphragmatic region. The patient w/headache and right-sided abdominal wall pain that is "so-so." Variable muscle testing due to apparent reluctance to participate. Nursing reports that the patient has not requested IV hydromorphone since this morning and is tolerating the PO hydromorphone. She has not requested any IV morphine for breakthrough pain. The patient has not indicated any nausea. Fluid aspirate () w/no growth x72 hrs on final . Plan: Regular diet. Neuro checks q4h. Vital signs q4h. Mobilise patient w/assistance as needed. Elevate HOB. Wean IV narcotic hydromorphone and transition patient to oral medication. (Chandrakant Yeung) Attending Statement The exam, history, and the medical decision-making described in the above note were completed with the assistance of the mid-level provider. I reviewed and agree with the findings presented. I attest that I had a [id number] encounter with the patient on the same day, and personally performed and documented my assessment and findings in the medical record. Patient remains in bed. On my examination of 09/12/2007, she is lying down, drinking soda. Complains of increasing headache. Increasing nausea vomiting. Initially indicates that her right upper bsmsghss-xewsuwjur-ljhup pain may be improving, however when I suggested her intravenous narcotics be discontinued, she states that her pain is very severe and she needs them. She wants at least one more dose of 1 mg Dilaudid IV. I advised her that she needs to wean off of the intravenous and eventually oral narcotics. Continuing the Lidoderm patch. Continue therapy. Difficult to get her mobilize out of bed. (Mamadou Cerrato MD) Chandrakant Yeung September 10, 2017 15:58 Mamadou Cerrato MD September 11, 2017 20:17
[2017-09-10 16:00] VITALS: BP 105/58; PULSE 70; RESP 20; TEMP 98.1; O2SAT 98
[2017-09-10 20:00] VITALS: BP 143/81; PULSE 68; RESP 18; TEMP 98.2; O2SAT 99
[2017-09-10] MEDS: 1/2 NS + KCL 20 MEQ INJ 1,000 ML IV SCH (20:05)
[2017-09-10] MEDS: REMOVE OLD PATCH T-DERMAL SCH ×2 (20:06→20:14)
[2017-09-11] VITALS: BP 113/56; PULSE 66; RESP 18; TEMP 98.1; O2SAT 95
[2017-09-11 03:27] VITALS: BP 114/68; PULSE 65; RESP 18; TEMP 98.2; O2SAT 97
[2017-09-11] MEDS: HYDROmorphone HCL 2 MG TAB PO PRN ×4 (03:30→23:09)
[2017-09-11] MEDS: MECLIZINE HCL 25 MG TAB PO PRN (03:42)
[2017-09-11 08:00] VITALS: BP 122/56; PULSE 82; RESP 19; TEMP 98.5; O2SAT 96
[2017-09-11] MEDS: LIDOCAINE HCL 5% PATCH T-DERMAL SCH (09:00)
[2017-09-11] MEDS: DOCUSATE SODIUM 50 MG/SENNA 8.6 MG TAB PO SCH ×2 (09:15→22:49)
[2017-09-11] MEDS: TOPIRAMATE 100 MG TAB PO SCH ×2 (09:15→22:49)
[2017-09-11] MEDS: MORPHINE SULFATE 15 MG CONTROLLED RELEASE TAB PO SCH ×2 (09:15→22:49)
[2017-09-11] MEDS: ONDANSETRON ODT 4 MG TAB SL PRN (09:15)
[2017-09-11 11:01] VITALS: BP 123/68; PULSE 66; RESP 16; TEMP 98.7; O2SAT 100
[2017-09-11 16:42] VITALS: BP 131/78; PULSE 58; RESP 18; TEMP 98.5; O2SAT 100
--- NOTE | 2017-09-11 19:13 | RADRPT ---
EXAM DATE/TIME: 09/11/2017 18:14 [facility] COMPARISON: CT BRAIN W/O CONTRAST, July 27, 2017, 20:45. INDICATIONS : Pos LP shunt RADIATION DOSE: 47.68 CTDIvol (mGy) MEDICAL HISTORY : Seizures. Hypertension. SURGICAL HISTORY : Hysterectomy. Shunts ENCOUNTER: Initial ACUITY: 1 day PAIN SCALE: 0/10 LOCATION: cranial TECHNIQUE: Multiple contiguous axial images were obtained of the head. Using automated exposure control and adj ustment of the mA and/or kV according to patient size, radiation dose was kept as low as reasonably a chievable to obtain optimal diagnostic quality images. DICOM format image data is available electro nically for review and comparison. FINDINGS: CEREBRUM: The ventricles are normal for age. No evidence of midline shift, mass lesion, hemorrhage or acute in farction. No extra-axial fluid collections are seen. POSTERIOR FOSSA: The cerebellum and brainstem are intact. The 4th ventricle is midline. The cerebellopontine angle i s unremarkable. EXTRACRANIAL: The visualized portion of the orbits is intact. SKULL: The calvaria is intact. No evidence of skull fracture. CONCLUSION: No acute disease. Wallace Bill MD on September 11, 2017 at 19:11 Board Certified Radiologist. This report was verified electronically.
[2017-09-11 20:00] VITALS: BP 113/53; PULSE 70; RESP 18; TEMP 98.5; O2SAT 97
--- NOTE | 2017-09-11 20:36 | HHI.NSPN ---
History Chief Complaint: Headache and abdominal pain Interval History Patient complains of increasing nausea overnight. Also increasing headache at the skull base. When I first asked about the headache and asked her if it is any different than her typical chronic headache, she states that it is the same as she has had for a long time, even prior to the shunt surgery. However when she inquires regarding specifics of a shunt type headache, described by the undersigned is a pressure type headache at the skull base, she reiterates that she does indeed have that type of headache and it is present in the past 2 or 3 days, although not present initially postoperative. Complains of persistent nausea. She states that it seems to come on when she eats fried food or certain other food. She now seems uncertain whether it is still related to the oral Dilaudid. She states her pain is again severe of the subcostal region. Exam Results Vital Signs Date Time Temp Pulse Resp B/P (MAP) Pulse Ox O2 Delivery O2 Flow Rate FiO2 09/11/17 16:42 98.5 58 18 131/78 (95) 100 Intake and Output 09/11/17 09/11/17 09/12/17 08:00 16:00 00:00 Intake Total 120 ml 850 ml Output Total 800 ml Balance 120 ml 50 ml Physical Examination Awake and relatively alert. Visual hyatt reveal mild to moderate loss of peripheral vision quadrants, a little worse than last week's exam. Extraocular movements intact Facial motor movements symmetric Her speech is clear Appears somewhat depressed Abdomen with minimal diffuse tenderness to palpation Soft, nondistended Lab, Micro, Other Results 09/11/2017 CT scan head within normal limits Medical Decision Making Impression and Plan Impression: 1. Idiopathic intracranial hypertension. Patient initially indicated good improvement in headaches and vision for the first couple weeks postoperative. She now indicates some increase in headaches and possibly some worsening vision over the past couple days. Her CT scan of 09/11/2017 does not reveal any significant abnormalities. 2. Postoperative subcostal-flank pain along the subcostal and lateral flank incision sites and shunt tract. This improved quite a bit initially after injection of Exparel during this hospitalization. The pain has waxed and waned over the past week, some days seeming to be relatively well under control, now for the past couple days worse again. Cultures are no growth from an aspiration of the anterior shunt tract earlier last week. Incision remains dry and intact without erythema or edema. 3. Persistent nausea. This appears to be partially related to narcotic medications. She previously seem to have nausea with oral Dilaudid, but this is now only questionable. Today she states that she feels that fried food and other foods may be triggering it. She states she ate some chicken fingers yesterday and she thinks it made her nauseated. 4. Probable opioid dependence. 4. Probable depression Plan: Findings were discussed with patient. Continuing to discontinue IV narcotics. She has had a previous cholecystectomy. Will check her lipase and amylase and also a follow-up BMP and CMP including white count. I discussed the patient with neuropsychology as well as with dietary. Questionable component of depression. She remains extremely dependent, requiring nursing supervision to turn and get out of bed and has had made little attempt to mobilize out of bed on her own, even late last week when she seemed to indicate that the postoperative pain was subsiding. She is strongly resistant any decrease in IV Dilaudid over the past week, although has not really use it very much past couple of days. She has had [address] abdomen scans which do not reveal any definite significant abnormalities. Initially it was thought that she might have a nerve entrapment related to suturing of the valve at the anterior right subcostal margin, but her pain really seems to be limited to the incision sites and along the shunt passage track rather than any radiating pain across the abdominal wall. Mamadou Cerrato MD September 11, 2017 20:36
[2017-09-11] MEDS: REMOVE OLD PATCH T-DERMAL SCH (21:00)
[2017-09-11 21:56] LABS: AUTOMATED NEUTROPHIL # 6.9 TH/MM3 (1.8-7.7); BASOPHIL % 0.2 % (0.0-2.0); EOSINOPHIL # 0.3 TH/MM3 (0-0.4); EOSINOPHIL % 2.4 % (0.0-4.0); HEMATOCRIT 37.2 % (35.0-46.0); HEMOGLOBIN 12.1 GM/DL (11.6-15.3); LYMPH % 28.4 % (9.0-44.0); LYMPHOCYTE # 3.1 TH/MM3 (1.0-4.8); MEAN CORPUSCULAR HEMOGLOBIN 26.8 PG (27.0-34.0); MEAN CORPUSCULAR HGB CONC 32.7 % (32.0-36.0); MEAN PLATELET VOLUME 8.6 FL (7.0-11.0); MONO % 6.4 % (0.0-8.0); MONOCYTE # 0.7 TH/MM3 (0-0.9); NEUT % 62.6 % (16.0-70.0); PLATELET COUNT 270 TH/MM3 (150-450); RED BLOOD COUNT 4.54 MIL/MM3 (4.00-5.30); RED CELL DISTRIBUTION WIDTH 13.6 % (11.6-17.2); WHITE BLOOD COUNT 11.1 TH/MM3 (4.0-11.0)
[2017-09-11] MEDS: 1/2 NS + KCL 20 MEQ INJ 1,000 ML IV SCH (22:13)
[2017-09-11 22:33] LABS: BICARBONATE 22.7 MEQ/L (21.0-32.0); BLOOD UREA NITROGEN 13 MG/DL (7-18); CALCIUM 8.8 MG/DL (8.5-10.1); CHLORIDE 109 MEQ/L (98-107); GLOMERULAR FILTRATION RATE 83 ML/MIN (>89); GLUCOSE,RANDOM 101 MG/DL (74-106); SODIUM (NA) 143 MEQ/L (136-145)
[2017-09-11 22:34] LABS: ALT (GPT) 19 U/L (10-53); AST (GOT) 9 U/L (15-37)
[2017-09-11 22:37] LABS: ALKALINE PHOSPHATASE 88 U/L (45-117); TOTAL BILIRUBIN ADULT 0.2 MG/DL (0.2-1.0); TOTAL PROTEIN 7.1 GM/DL (6.4-8.2)
[2017-09-12] VITALS: BP 115/65; PULSE 61; RESP 18; TEMP 97.8; O2SAT 94
[2017-09-12] MEDS: HYDROmorphone HCL 2 MG TAB PO PRN ×5 (03:42→23:09)
[2017-09-12] MEDS: MECLIZINE HCL 25 MG TAB PO PRN ×2 (03:42→10:36)
[2017-09-12] MEDS: ONDANSETRON HCL 4 MG/2 ML VIAL IV PUSH PRN (03:42)
[2017-09-12 04:00] VITALS: BP 92/52; PULSE 52; RESP 18; TEMP 98; O2SAT 96
[2017-09-12 08:32] VITALS: BP 165/79; PULSE 76; RESP 20; TEMP 98.6; O2SAT 97
[2017-09-12] MEDS: MORPHINE SULFATE 15 MG CONTROLLED RELEASE TAB PO SCH ×2 (08:41→20:53)
[2017-09-12] MEDS: DOCUSATE SODIUM 50 MG/SENNA 8.6 MG TAB PO SCH ×2 (08:41→20:53)
[2017-09-12] MEDS: TOPIRAMATE 100 MG TAB PO SCH ×2 (08:41→20:53)
[2017-09-12] MEDS: LIDOCAINE HCL 5% PATCH T-DERMAL SCH (08:44)
--- NOTE | 2017-09-12 09:42 | HHI.NSPN ---
History Chief Complaint: Headache and abdominal pain Interval History Today the patient states that her headache is much better and her vision is better. She complains of persistent severe upper abdominal-right lateral flank pain along the shunt tract. There is mostly mild to moderate tenderness along the shunt tract. Abdomen remains soft. Exam Results Vital Signs Date Time Temp Pulse Resp B/P (MAP) Pulse Ox O2 Delivery O2 Flow Rate FiO2 09/12/17 08:32 98.6 76 20 165/79 (107) 97 Physical Examination Awake and alert. Speech is clear. Mildly depressed. Abdomen soft Moderate tenderness along the subcostal margin. Lab, Micro, Other Results Last [address] 09/11/17 0000 Signed Impressions: Service Date/Time: August 18:14 - CONCLUSION: No acute disease. Wallace Bill MD Laboratory Tests Test 09/11/17 21:01 White Blood Count 11.1 TH/MM3 Red Blood Count 4.54 MIL/MM3 Hemoglobin 12.1 GM/DL Hematocrit 37.2 % Mean Corpuscular Volume 82.0 FL Mean Corpuscular Hemoglobin 26.8 PG Mean Corpuscular Hemoglobin Concent 32.7 % Red Cell Distribution Width 13.6 % Platelet Count 270 TH/MM3 Mean Platelet Volume 8.6 FL Neutrophils (%) (Auto) 62.6 % Lymphocytes (%) (Auto) 28.4 % Monocytes (%) (Auto) 6.4 % Eosinophils (%) (Auto) 2.4 % Basophils (%) (Auto) 0.2 % Neutrophils # (Auto) 6.9 TH/MM3 Lymphocytes # (Auto) 3.1 TH/MM3 Monocytes # (Auto) 0.7 TH/MM3 Eosinophils # (Auto) 0.3 TH/MM3 Basophils # (Auto) 0.0 TH/MM3 CBC Comment DIFF FINAL Differential Comment Blood Urea Nitrogen 13 MG/DL Creatinine 0.80 MG/DL Random Glucose 101 MG/DL Total Protein 7.1 GM/DL Albumin 3.0 GM/DL Calcium Level 8.8 MG/DL Alkaline Phosphatase 88 U/L Aspartate Amino Transf (AST/SGOT) 9 U/L Alanine Aminotransferase (ALT/SGPT) 19 U/L Total Bilirubin 0.2 MG/DL Sodium Level 143 MEQ/L Potassium Level 3.4 MEQ/L Chloride Level 109 MEQ/L Carbon Dioxide Level 22.7 MEQ/L Anion Gap 11 MEQ/L Estimat Glomerular Filtration Rate 83 ML/MIN Amylase Level 23 U/L Lipase 66 U/L Medical Decision Making Impression and Plan Impression: 1. Idiopathic intracranial hypertension. Patient initially indicated good improvement in headaches and vision for the first couple weeks postoperative. She now indicates some increase in headaches and possibly some worsening vision over the past couple days. Her CT scan of 09/11/2017 does not reveal any significant abnormalities. 2. Postoperative subcostal-flank pain along the subcostal and lateral flank incision sites and shunt tract. This improved quite a bit initially after injection of Exparel during this hospitalization. The pain has waxed and waned over the past week, some days seeming to be relatively well under control, now for the past couple days worse again. Cultures are no growth from an aspiration of the anterior shunt tract earlier last week. Incision remains dry and intact without erythema or edema. 3. Persistent nausea. This appears to be partially related to narcotic medications. She previously seem to have nausea with oral Dilaudid, but this is now only questionable. Today she states that she feels that fried food and other foods may be triggering it. She states she ate some chicken fingers yesterday and she thinks it made her nauseated. 4. Probable opioid dependence. 4. Probable depression Plan: Findings were discussed with patient. Continuing to discontinue IV narcotics. She has had a previous cholecystectomy. Discussed with case management today. I have neuropsychology as well as with dietary. Questionable component of depression. She remains extremely dependent, requiring nursing supervision to turn and get out of bed and has had made little attempt to mobilize out of bed on her own, even late last week when she seemed to indicate that the postoperative pain was subsiding. She is strongly resistant any decrease in IV Dilaudid over the past week, although has not really use it very much past couple of days. She has had [address] abdomen scans which do not reveal any definite significant abnormalities. Initially it was thought that she might have a nerve entrapment related to suturing of the valve at the anterior right subcostal margin, but her pain really seems to be limited to the incision sites and along the shunt passage track rather than any radiating pain across the abdominal wall. Plan to discuss with general surgery today. Mamadou Cerrato MD September 12, 2017 09:42
[2017-09-12 11:58] VITALS: BP 109/55; PULSE 57; RESP 20; TEMP 98.2; O2SAT 98
[2017-09-12 16:19] VITALS: BP 94/66; PULSE 73; RESP 20; TEMP 98.2; O2SAT 96
[2017-09-12 20:45] VITALS: BP 105/52; PULSE 70; RESP 20; TEMP 98.6; O2SAT 99
[2017-09-12] MEDS: REMOVE OLD PATCH T-DERMAL SCH (20:54)
[2017-09-12] MEDS: 1/2 NS + KCL 20 MEQ INJ 1,000 ML IV SCH (22:13)
[2017-09-13] VITALS: BP 109/59; PULSE 48; RESP 18; TEMP 97.7; O2SAT 98
[2017-09-13] MEDS: HYDROmorphone HCL 2 MG TAB PO PRN ×5 (03:45→23:04)
[2017-09-13 04:00] VITALS: BP 102/58; PULSE 48; RESP 16; TEMP 98.1; O2SAT 97
[2017-09-13 08:00] VITALS: BP 121/64; PULSE 52; RESP 17; TEMP 98.5; O2SAT 96
[2017-09-13] MEDS: 1/2 NS + KCL 20 MEQ INJ 1,000 ML IV SCH ×2 (09:16→22:13)
[2017-09-13] MEDS: TOPIRAMATE 100 MG TAB PO SCH ×2 (09:18→21:24)
[2017-09-13] MEDS: MORPHINE SULFATE 15 MG CONTROLLED RELEASE TAB PO SCH ×2 (09:18→21:24)
[2017-09-13] MEDS: DOCUSATE SODIUM 50 MG/SENNA 8.6 MG TAB PO SCH ×2 (09:19→21:24)
[2017-09-13] MEDS: LIDOCAINE HCL 5% PATCH T-DERMAL SCH (09:19)
--- NOTE | 2017-09-13 10:59 | HHI.NSPN ---
History Chief Complaint: Abdominal pain Interval History Patient reports continued abdominal pain along the track of the shunt. She reports that her headaches and vision are improved Exam Results Vital Signs Date Time Temp Pulse Resp B/P (MAP) Pulse Ox O2 Delivery O2 Flow Rate FiO2 09/13/17 08:00 98.5 52 17 121/64 (83) 96 Intake and Output 09/13/17 09/13/17 09/14/17 08:00 16:00 00:00 Intake Total 0 ml Balance 0 ml Physical Examination Patient is alert and awake. Fluent speech. Follows commands well. Interacts well Moves lower extremities well. Tenderness along the anterior abdominal wall Medical Decision Making Impression and Plan Continued pain. Neurologically improved. We will try to control patient's pain. Have indicated to the patient that she is neurologically improved. David Cedeno MD September 13, 2017 10:59
[2017-09-13] MEDS: HYDROmorphone HCL PF 0.5 MG/0.5 ML SYRINGE IV PUSH PRN (11:11)
[2017-09-13 12:00] VITALS: BP 108/57; PULSE 59; RESP 17; TEMP 98.1; O2SAT 97
[2017-09-13 16:00] VITALS: BP 97/52; PULSE 63; RESP 17; TEMP 98.4; O2SAT 97
[2017-09-13 20:00] VITALS: BP 106/58; PULSE 79; RESP 20; TEMP 98.7; O2SAT 99
[2017-09-13] MEDS: REMOVE OLD PATCH T-DERMAL SCH (21:00)
[2017-09-14] VITALS (11 sets, daily range): BP systolic 95–134; BP diastolic 51–76; PULSE 57–130; RESP 17–22; TEMP 98–98.6; O2SAT 94–99
[2017-09-14] MEDS: HYDROmorphone HCL 2 MG TAB PO PRN ×5 (02:35→22:35)
[2017-09-14] MEDS: MORPHINE SULFATE 15 MG CONTROLLED RELEASE TAB PO SCH ×2 (08:55→20:57)
[2017-09-14] MEDS: DOCUSATE SODIUM 50 MG/SENNA 8.6 MG TAB PO SCH ×2 (08:55→20:57)
[2017-09-14] MEDS: TOPIRAMATE 100 MG TAB PO SCH ×2 (08:55→20:57)
[2017-09-14] MEDS: LIDOCAINE HCL 5% PATCH T-DERMAL SCH (08:56)
[2017-09-14] MEDS: ONDANSETRON HCL 4 MG/2 ML VIAL IV PUSH PRN (09:08)
--- NOTE | 2017-09-14 12:09 | HHI.NSPN ---
History Chief Complaint: Abdominal pain Interval History Patient reports continued abdominal pain along the track of the shunt. She reports that her headaches and vision are improved Today the patient got out of bed and fell to the ground because of a sharp pain in her abdomen. The pain was in the right lower quadrant below the incision. The patient did not hit her head and did not sustain any other injuries Exam Results Vital Signs Date Time Temp Pulse Resp B/P (MAP) Pulse Ox O2 Delivery O2 Flow Rate FiO2 09/14/17 08:00 98.0 92 18 134/64 (87) 99 Physical Examination Patient seen on the floor, being attended by the nurses. She is crying Helped her to the bed. Patient was minimally assisted. Wound was examined. Appears clean. Minimal tenderness Medical Decision Making Impression and Plan Unclear what is causing the patient's pain. Will defer to Dr. Cerrato. Neurologically improved. Long discussion with the patient I will restart her as needed Dilaudid until she can talk with Dr. Cerrato. She is to remain at bedrest and get up only with assistance. Patient agrees. Have instructed patient's nurse as to the plan David Cedeno MD September 14, 2017 12:09
[2017-09-14] MEDS: HYDROmorphone HCL PF 0.5 MG/0.5 ML SYRINGE IV PUSH PRN ×4 (12:33→23:56)
[2017-09-14] MEDS: MECLIZINE HCL 25 MG TAB PO PRN (20:56)
[2017-09-14] MEDS: REMOVE OLD PATCH T-DERMAL SCH (21:00)
[2017-09-14] MEDS: 1/2 NS + KCL 20 MEQ INJ 1,000 ML IV SCH (22:13)
[2017-09-15 00:05] VITALS: BP 104/57; PULSE 67; RESP 18; TEMP 98.5; O2SAT 99
[2017-09-15] MEDS: HYDROmorphone HCL 2 MG TAB PO PRN ×4 (03:49→18:37)
[2017-09-15 04:54] VITALS: BP 102/61; PULSE 78; RESP 18; TEMP 97.7; O2SAT 98
[2017-09-15] MEDS: HYDROmorphone HCL PF 0.5 MG/0.5 ML SYRINGE IV PUSH PRN ×4 (04:56→21:22)
[2017-09-15 08:00] VITALS: BP 102/53; PULSE 70; RESP 20; TEMP 98.5; O2SAT 98
[2017-09-15] MEDS: DOCUSATE SODIUM 50 MG/SENNA 8.6 MG TAB PO SCH ×2 (08:15→21:20)
[2017-09-15] MEDS: MORPHINE SULFATE 15 MG CONTROLLED RELEASE TAB PO SCH ×2 (08:15→21:21)
[2017-09-15] MEDS: LIDOCAINE HCL 5% PATCH T-DERMAL SCH (08:15)
[2017-09-15] MEDS: TOPIRAMATE 100 MG TAB PO SCH ×2 (08:16→21:20)
[2017-09-15 12:00] VITALS: BP 99/58; PULSE 73; RESP 20; TEMP 98.3; O2SAT 98
--- NOTE | 2017-09-15 15:27 | HHI.NSPN ---
(Chandrakant Yeung) History Chief Complaint: Abdomen "is way, way worser." (Colin Yeungsilvano BERGER) Interval History 09/03: Ms. Mayberry is a 32-year-old female who previously underwent lumboperitoneal shunt placement 08/12/2017 for treatment of idiopathic intracranial hypertension. She has had significant persistent pain in the right subcostal region at the shunt distal catheter insertion site since surgery. She indicates that the pain seemed a little better a week ago, but over this past weekend significantly increased. She has had no fevers or chills. She does complain of persistent nausea and vomiting, somewhat increased over the weekend, although she has also been taking more hydromorphone , which seemed to cause nausea. She remains on MS Contin 15 mg twice daily. No diarrhea. Intermittent constipation. She is taking laxative at home. The patient has presented back to the emergency room several times since surgery, for various complaints including the right subcostal pain as well as problems with constipation and persistent vomiting. 09/04: This morning the patient is asleep in bed but does awaken to voice. After that she is alert. She states that she continues to have pain to the right lower abdominal wall toward the flank. The pain at the right epigastric incision has improved. She continues to have nausea and vomiting with oral hydromorphone. She does say she has a migraine today. She does have some mild right lower extremity weakness. Earlier this morning Nursing reported that the patient was refusing to take the oral hydromorphone and wanted it intravenously. 09/05: When seen this afternoon the patient is awake in the bed watching TV and talking with the Delivery Supervisor. She states that she does have pain to the right lower rib area between the abdominal wall surgical incisions. She has no headache or dizziness today. There is no change in her sensorimotor exam. Her abdomen is soft and nontender from the epigastric abdominal wall surgical incision inferiorly and laterally. 09/06: Reports overall she is feeling better, her headaches has improved as well as her abdominal pain. She is ambulating to the bathroom. 09/07: constipated, resting in bed. 09/08: The patient is awake in bed on her cellphone. She continues to have right -sided abdominal wall pain. She did have a slight headache and dizziness earlier. There is no change in her motor strength. 09/09: This morning the patient is awake and looking at her cellphone. She states that the right side of her abdomen is "so-so." She does state that the patch has helped some. She says her headaches have been from her using her head to turn. Her exam is essentially the same. She does complain that she was sitting on the toilet for over an hour yesterday because no one answered the call light and her family eventually had to call the front office assistant for help. 09/10: When seen this afternoon the patient appears to be asleep. She did turn her head toward this practitioner's voice when greeted. She states that she is doing "So-so" and her pain is "so-so." She does have a headache still. Upon examination she is only tender at the epigastric surgical incision. Upon examination her motor strength varies with repeat testing. Patient being transitioned to oral pain medication and is tolerating oral hydromorphone and not requested any intravenous hydromorphone since this morning. She also has not reported any nausea. 09/11: Patient complains of increasing nausea overnight. Also increasing headache at the skull base. When I first asked about the headache and asked her if it is any different than her typical chronic headache, she states that it is the same as she has had for a long time, even prior to the shunt surgery. However when she inquires regarding specifics of a shunt type headache, described by the undersigned is a pressure type headache at the skull base, she reiterates that she does indeed have that type of headache and it is present in the past 2 or 3 days, although not present initially postoperative. Complains of persistent nausea. She states that it seems to come on when she eats fried food or certain other food. She now seems uncertain whether it is still related to the oral Dilaudid. She states her pain is again severe of the subcostal region. 09/12: Today the patient states that her headache is much better and her vision is better. She complains of persistent severe upper abdominal-right lateral flank pain along the shunt tract. There is mostly mild to moderate tenderness along the shunt tract. Abdomen remains soft. 09/13: Patient reports continued abdominal pain along the track of the shunt. She reports that her headaches and vision are improved 09/14: Patient reports continued abdominal pain along the track of the shunt. She reports that her headaches and vision are improved Today the patient got out of bed and fell to the ground because of a sharp pain in her abdomen. The pain was in the right lower quadrant below the incision. The patient did not hit her head and did not sustain any other injuries 09/15: The patient has her eyes covered with her left hand, she has the right hand splinting the abdomen and her knees are pulled up. She complains that her abdomen started to get worse on Friday and has continued to worsen. She says she now has to splint her abdomen and have her knees drawn up in order to help reduce the pain. She does have a headache as well. The abdomen is soft and appears minimally tender upon examination. (Chandrakant Yeung) Exam Results 09/13/17 09/13/17 09/14/17 09/14/17 09/15/17 09/15/17 06:00 18:00 06:00 18:00 06:00 18:00 Intake Total 0 ml 1440 ml Balance 0 ml 1440 ml Intake Oral 0 ml 1440 ml # Voids 0 1 Vital Signs Date Time Temp Pulse Resp B/P (MAP) Pulse Ox O2 Delivery O2 Flow Rate FiO2 09/15/17 12:00 98.3 73 20 99/58 (72) 98 09/15/17 08:00 98.5 70 20 102/53 (69) 98 09/15/17 04:54 97.7 78 18 102/61 (75) 98 09/15/17 00:05 98.5 67 18 104/57 (73) 99 09/14/17 20:00 98.3 72 20 106/55 (72) 96 09/14/17 18:30 98.6 67 19 132/68 (89) 97 09/14/17 17:17 98.6 79 17 106/61 (76) 99 09/14/17 16:00 98.1 67 19 99/53 (68) 98 09/14/17 15:11 98.0 75 17 95/53 (67) 95 09/14/17 12:10 98.5 70 19 128/58 (81) 97 09/14/17 11:50 98.6 97 19 103/51 (68) 96 09/14/17 11:30 98.6 130 21 132/76 (94) 94 09/14/17 08:00 98.0 92 18 134/64 (87) 99 09/14/17 04:00 98.1 57 19 112/65 (81) 99 09/14/17 00:00 98.3 62 22 114/59 (77) 98 09/13/17 20:00 98.7 79 20 106/58 (74) 99 09/13/17 16:00 98.4 63 17 97/52 (67) 97 09/13/17 12:00 98.1 59 17 108/57 (74) 97 09/13/17 08:00 98.5 52 17 121/64 (83) 96 09/13/17 04:00 98.1 48 16 102/58 (73) 97 09/13/17 00:00 97.7 48 18 109/59 (76) 98 09/12/17 20:45 98.6 70 20 105/52 (69) 99 09/12/17 16:19 98.2 73 20 94/66 (75) 96 (Chandrakant Yeung) Physical Examination GENERAL: Patient with eyes covered with left hand. Her affect is flat but she interacts readily. She appears mildly uncomfortable but not in any distress. HEENT: Normocephalic, atraumatic. GASTROINTESTINAL: Right hand splinting abdomen and both knees flexed to help relieve abdominal pain. Abdomen soft, minimally TTP, [address] MUSCULOSKELETAL: HOUSE spontaneously & purposefully w/o difficulty. NEUROLOGICAL: AAOx3. Speech clear & appropriate. Follows commands without difficulty. Sensation appears intact to light touch to the lower extremities. Muscle strength is 4+/5 to the bilateral iliopsoas & bilateral hamstrings and 3 + to 4/5 to the bilateral quadriceps. It does appear that patient is not fully participating when quadriceps are tested. (Chandrakant Yeung) Medical Decision Making Impression and Plan Impression: 1. Idiopathic intracranial hypertension. Patient initially indicated good improvement in headaches and vision for the first couple weeks postoperative. She now indicates some increase in headaches and possibly some worsening vision over the past couple days. Her CT scan of 09/11/2017 does not reveal any significant abnormalities. 2. Postoperative subcostal-flank pain along the subcostal and lateral flank incision sites and shunt tract. This improved quite a bit initially after injection of Exparel during this hospitalization. The pain has waxed and waned over the past week, some days seeming to be relatively well under control, now for the past couple days worse again. Cultures are no growth from an aspiration of the anterior shunt tract earlier last week. Incision remains dry and intact without erythema or edema. 3. Persistent nausea. This appears to be partially related to narcotic medications. She previously seem to have nausea with oral Dilaudid, but this is now only questionable. Today she states that she feels that fried food and other foods may be triggering it. She states she ate some chicken fingers yesterday and she thinks it made her nauseated. 4. Probable opioid dependence. 5. Probable depression The patient continues to have a headache and abdominal pain. Afebrile past 24 hrs. Tachycardia once yesterday morning. Intermittently w/SBP into 90s. Plan: Regular diet. Neuro checks q4h. Vital signs q4h. Mobilise patient w/assistance as needed. Elevate HOB. Continue current pain medication regimen. Continue ondansetron for N/V. (Chandrakant Yeung) Attending Statement The exam, history, and the medical decision-making described in the above note were completed with the assistance of the mid-level provider. I reviewed and agree with the findings presented. I attest that I had a [id number] encounter with the patient on the same day, and personally performed and documented my assessment and findings in the medical record. On my examination of 09/15/2017, the patient is lying down in bed. She is awake and alert fully oriented. Her speech is clear and appropriate. She appears mildly to moderately uncomfortable although she complains of severe intermittent shooting pain in her right anterior lateral subcostal region with occasional radiation to the Mid to upper right abdominal region. Lidoderm patches in place over the right upper quadrant and right flank incision. There is relatively mild tenderness to palpation along the right subcostal margin and upper quadrant with a complaint of a more diffuse aching discomfort with deep palpation to the right mid abdominal region. No significant right lower quadrant tenderness. No significant tenderness over the left abdomen. Sensation is intact light touch in the lower extremities Strength is within normal limits in the lower extremities Had a long discussion again with the patient regarding treatment options. She does not have any significant findings on CT scan of the abdomen 2. The catheter appears to be in good position. She could conceivably have nerve entrapment from the suture. However her pain is not really consistently in the same region from day-to-day, sometimes more over the left upper quadrant incision, other times over the left flank incision , sometimes mostly subcostal and other times more in the midabdominal region on the right. Today she indicates that it is mostly over the right lateral abdomen , somewhat more over the right lateral incision. Neuropsychology evaluation is pending. We will continue try to mobilize her out of bed and I will discuss this further with general surgery. She is encouraged to mobilize with assistance out of bed. She states that she fell over the weekend because she had a sharp pain in her abdomen and could not see the floor and her foot slipped on something. (Mamadou Cerrato MD) Chandrakant Yeung September 15, 2017 15:27 Mamadou Cerrato MD September 15, 2017 20:16
[2017-09-15 16:00] VITALS: BP 100/56; PULSE 71; RESP 20; TEMP 98.6; O2SAT 97
[2017-09-15] MEDS: REMOVE OLD PATCH T-DERMAL SCH (21:33)
[2017-09-15] MEDS: 1/2 NS + KCL 20 MEQ INJ 1,000 ML IV SCH (22:13)
[2017-09-16] VITALS: BP 113/57; PULSE 73; RESP 16; O2SAT 98
[2017-09-16] MEDS: HYDROmorphone HCL 2 MG TAB PO PRN ×5 (01:30→22:08)
[2017-09-16] MEDS: HYDROmorphone HCL PF 0.5 MG/0.5 ML SYRINGE IV PUSH PRN ×5 (03:10→23:40)
[2017-09-16 04:00] VITALS: BP 97/52; PULSE 57; RESP 16; O2SAT 97
[2017-09-16] MEDS: MORPHINE SULFATE 15 MG CONTROLLED RELEASE TAB PO SCH ×2 (07:55→21:32)
[2017-09-16] MEDS: DOCUSATE SODIUM 50 MG/SENNA 8.6 MG TAB PO SCH ×2 (07:55→21:32)
[2017-09-16] MEDS: TOPIRAMATE 100 MG TAB PO SCH ×2 (07:55→21:32)
[2017-09-16] MEDS: LIDOCAINE HCL 5% PATCH T-DERMAL SCH (07:56)
[2017-09-16 08:00] VITALS: BP 108/61; PULSE 67; RESP 20; TEMP 98; O2SAT 98
[2017-09-16] MEDS: ONDANSETRON HCL 4 MG/2 ML VIAL IV PUSH PRN (09:33)
--- NOTE | 2017-09-16 11:36 | PD.HHIRBSE ---
Patient History Record/History Review Reason for Referral: The patient is a 32 year old right handed female with previous shunt placement on 08/12/2017 for idiopathic intracranial hypertension, who has presented back to the ED several times since for various complaints. On exam, she is alert and oriented, with complaints of diminished vision and pain and remaining "extremely dependent," making little progress on mobilizing her self out of bed. She reported that she is originally from the [facility], moving here with her and child one year ago. 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 Her son has a genetic disorder, but is quite functional. She reported having had two miscarriages in the past. She is high school educated, good grade and no behavioral issues or learning disabilities. No history. 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 She has a history of anxiety and depression, treated with Prozac as a teen with good results. She is unwilling to try most psychotropics because of her various concerns. She is quite anxious about her shunt, whether it will become dislodged, and she has had issues with nursing staff, which she feels are not appropriately attentive to her particular needs. She is referred for baseline neurobehavioral status examination to assess cognitive, behavioral and emotional aspects of the injury and to provide treatment recommendations. Past Surgical/Medical History Past Surgery: Yes (L KIDNEY (STENTS x 6)) Major surgery in last 100 days: Yes Hx Anesthesia Reactions: No Hx Orthopedic Surgery: No Hx Cardiac Surgery: No Hx Chest Surgery: No Hx Abdominal Surgery: No Hx Genitourinary Surgery: Yes (STENTS KIDNEYS, LITHOTRIPSIES) Hx Gynecologic Surgery: No Hx Endocrine Surgery: No Hx Eye Surgery: No Hx Ear Surgery: No Hx Oral Surgery: No History of Transplant: No Hx of Neuro Prob: Yes Hx Seizures: Yes Cephalgia (Headaches): Yes Hx Migraines: Yes Hx Head Injury: No Hx Falls: No Hx Cerebrovascular Accident: No Hx Dizziness: No Hx Numbness: No Hx of Musculoskeletal Pro: No Hx Arthritis: No Hx Osteoporosis: No Hx Neck Problems: Yes Hx Back Problem: Yes Hx of Cardiovascular Prob: No Hypertension (High Blood Press: Yes (Idiopathic intracranial hypertension) Hx Clotting Problems: No Hx Chest Pain: No Hx Lightheadedness: Yes Hx Congestive Heart Failure: No Syncope (Fainting): No Hx of Respiratory Problem: Yes (asthma) Hx Asthma: Yes Hx Wheezing: No Hx Chronic Obstructive Pulmona: No Hx Dyspnea: No Hx Snoring: No Hx Emphysema: No Hx Sleep Apnea: No Hx of GI Problems: No Hx Heartburn: No Hx Gastroesophageal Reflux: No Hx Hiatal Hernia: No Hx Ulcer: No Hx Liver Disease: No Hx Gallbladder Disease: No Hx Inflammatory Bowel Disease: No Hx of Problems: Yes (KIDNEY STONES) Hx Renal Disease: No Hx Renal Failure: No Hx Kidney Transplant: No Hx Kidney Stones: Yes Hx Nephrectomy: No Hx Infection: No Hx Pelvic Problems: No Hx Genital Problems: No ?: Not Hx Last Menstrual Period: 08/23/2017 Hx of Immuno Disor: No Hx Autoimmune Disease: No Hx of Endocrine Problems: No Hx Thyroid Disease: No Hx Diabetes: No Hx of Eye Probl: Yes (paplioedema) Hx of Hearing or Ear Problems: No Hx Dental Problems: No Hx Psychiatric Problems: No Hx Anxiety: No Hx Depression: No Hx Blood Dyscrasias: No Hx Sickle Cell Disease: No Hx Thrombocytopenia: No Hx Hemophilia: No Hx of Heparin Induced Thr: No Hx of MDRO: No Hx of MRSA: Yes (in back ) Hx of VRE: No Hx of CDIFF: No Hx of Tuberculosis: No Hx Chicken Pox: No Hx Measles: No Hx of Body/Medical Devices: No Hx Pacemaker: No Hx Internal Defibrillator: No Hx Joint Replacement: No Insulin Pump: No Hx Arteriovenous Shunt: No Hx Dental Implants: No Hx Eye Prosthesis: No Genitourinary Device: No Genitourinary Ostomy: No Gastrointestinal Ostomy: No Blood Transfusion History Will receive Blood /Blood prod: Yes Hx Blood Transfusions: No Hx Blood Transfusion Reaction: No Mental Status Assessment Orientation: oriented to Self, oriented to Place, oriented to Time, oriented to Situation Observation The patient is alert and oriented to person, place, time and circumstances surrounding the reason for hospitalization.In terms of attention skills, the patient able to remain on task and remember basic and complex instructions. In terms of memory functioning, the patient was able to demonstrate adequate carryover of information after a brief period of time. The patient initiated spontaneous conversation. Speech was characterized by adequate prosody, grammar , articulation, volume and rate. Basic naming skills were intact. Language repetition skills were intact. The patients comprehensions for basic one- and two-stage commands were intact. Basic verbal abstraction and problem-solving skills were intact. The patient appears to posses insight and awareness into their situation and within the limits of this brief evaluation, adequate judgment. Impression Normal neurocognitive functioning. Adjustment/Coping Assessment Adjustment/Coping: Mild: Depression, Severe: Anxiety Observation The patients thought content was free from suicidal, homicidal or paranoid ideation, and the patients thought processes were logical and goal-directed. The patients mood was anxious, and the affect was worrisome. This patient does appear to be quite somatically focused, and in such persons they prefer medical explanations for physical problems, and tend to be dismissive of persons who suggest an underlying psychological cause. LTG Status: Deferred STG Status: Deferred Team Members: Neuropsychologist Behavior Assessment Agitation: None Treatment Engagement: Average Observation Behaviorally, the patient demonstrated no signs of agitation, impulsivity or disinhibition. There was no remarkable evidence of a formal thought disorder or psychosis. LTG - Status: Deferred STG Status: Deferred Team Members: Neuropsychologist Feedback/Education Skilled Interventions: Counseling, Psychoeducation: Anxiety, Relaxation Training Diagnosis/Discharge Plan Impression This 32 year old woman remains hospitalized for complications related to her shunt placement for idiopathic intracranial hypertension, and who presents with underlying anxiety and somatic preoccupation concerning her condition which is serving to interfere with her treatment. 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 Pharmacological management of her anxiety/ depression may be beneficial, unless medically contraindicated. Specifically, she has had good results with Prozac in the past, and she may benefit from Prozac 20 qD. At this point in the recovery process, the patient does have cognitive capacity as the patient is able to understand a situation and its likely consequences, and she is able to manipulate information rationally. Cognitive capacity will be assessed throughout the recovery process. Discharge Planning Anticipated Problems Ongoing areas of concern will include anxiety, somatic focus and depression, which is expected to improve with time and treatment. She will be seen by neuropsychology throughout her stay to facilitate an optimal therapeutic outcome. Treatment Plan This clinician will continue to follow with you throughout the course of this patients rehabilitation treatment, and I will be available to meet with the patients family/support system to facilitate their understanding and the ongoing care of their family member. The goals of neuropsychological intervention shall be both educational and supportive to the family/support system as is deemed clinically appropriate. Discharge Needs To be determined. Thank you Thank you for the opportunity to assist in this patients care. Darian Shin, Ph.D., ABPP Board Certified in Clinical Neuropsychology [place] [employer] [place] Licensed Psychologist #[id number] Darian Shin PhD September 16, 2017 11:36 am
[2017-09-16 12:00] VITALS: BP 104/58; PULSE 63; RESP 20; TEMP 98.8; O2SAT 97
[2017-09-16 15:50] VITALS: BP 118/75; PULSE 95; RESP 16; TEMP 96.8; O2SAT 99
[2017-09-16 19:38] VITALS: BP 99/55; PULSE 85; RESP 16; TEMP 98.5; O2SAT 95
[2017-09-16] MEDS: REMOVE OLD PATCH T-DERMAL SCH (21:33)
[2017-09-16] MEDS: 1/2 NS + KCL 20 MEQ INJ 1,000 ML IV SCH (21:34)
--- NOTE | 2017-09-16 23:58 | HHI.NSPN ---
History Chief Complaint: Abdomen "is way, way worser." Interval History Today the patient states that her headache is much better and her vision is better. She complains of persistent severe upper abdominal-right lateral flank pain along the shunt tract. There is mostly mild to moderate tenderness along the shunt tract. Abdomen remains soft. Exam Results Vital Signs Date Time Temp Pulse Resp B/P (MAP) Pulse Ox O2 Delivery O2 Flow Rate FiO2 09/16/17 19:38 98.5 85 16 99/55 (70) 95 Intake and Output 09/16/17 09/16/17 09/17/17 08:00 16:00 00:00 Intake Total 200 ml Balance 200 ml Physical Examination GENERAL: She appears mildly uncomfortable but not in any distress. HEENT: Normocephalic, atraumatic. GASTROINTESTINAL: Right hand splinting abdomen and both knees flexed to help relieve abdominal pain. Abdomen soft, minimally TTP, [address] MUSCULOSKELETAL: HOUSE spontaneously & purposefully w/o difficulty. NEUROLOGICAL: AAOx3. Speech clear & appropriate. Follows commands without difficulty. Sensation appears intact to light touch to the lower extremities. Motor function 5/5 major flexion-extension groups throughout the right and left lower extremity Medical Decision Making Impression and Plan Impression: 1. Idiopathic intracranial hypertension. She is not really complaining of significant headache today on 09/16/2017 2. Postoperative subcostal-flank pain along the subcostal and lateral flank incision sites and shunt tract. This improved quite a bit initially after injection of Exparel during this hospitalization. The pain has waxed and waned over the past week, some days seeming to be relatively well under control, now for the past couple days worse again. Cultures are no growth from an aspiration of the anterior shunt tract earlier last week. Incision remains dry and intact without erythema or edema. 3. Persistent nausea. This appears to be partially related to narcotic medications. She previously seem to have nausea with oral Dilaudid, but this is now only questionable. 4. Probable opioid dependence. 5. Probable depression Plan: Findings were discussed with patient. Continuing to decrease IV narcotics. She has had [address] abdomen scans which do not reveal any definite significant abnormalities. Initially it was thought that she might have a nerve entrapment related to suturing of the valve at the anterior right subcostal margin, but her pain really seems to be limited to the incision sites and along the shunt passage track rather than any radiating pain across the abdominal wall. Discussed with general surgery Due to the possibility of some nerve entrapment or irritation from the catheter , it is felt medically indicated to proceed with repositioning of the catheter. This is been discussed with the patient. Plan surgery 09/19/2017 with laparoscopic repositioning of the catheter. Mamadou Cerrato MD September 16, 2017 23:58
[2017-09-17 00:36] VITALS: BP 91/54; PULSE 71; RESP 18; TEMP 98.2; O2SAT 95
[2017-09-17] MEDS: HYDROmorphone HCL 2 MG TAB PO PRN ×5 (02:39→22:14)
[2017-09-17 04:11] VITALS: BP 98/60; PULSE 62; RESP 20; TEMP 98.3; O2SAT 98
[2017-09-17] MEDS: HYDROmorphone HCL PF 0.5 MG/0.5 ML SYRINGE IV PUSH PRN ×4 (04:17→19:46)
[2017-09-17 07:55] LABS: BICARBONATE 22.5 MEQ/L (21.0-32.0); CALCIUM 8.5 MG/DL (8.5-10.1); CREATININE 0.66 MG/DL (0.50-1.00)
[2017-09-17] MEDS: TOPIRAMATE 100 MG TAB PO SCH ×2 (07:58→19:47)
[2017-09-17] MEDS: MORPHINE SULFATE 15 MG CONTROLLED RELEASE TAB PO SCH ×2 (07:58→19:47)
[2017-09-17] MEDS: DOCUSATE SODIUM 50 MG/SENNA 8.6 MG TAB PO SCH ×2 (07:58→19:46)
[2017-09-17] MEDS: LIDOCAINE HCL 5% PATCH T-DERMAL SCH (07:59)
[2017-09-17 08:00] VITALS: BP 114/63; PULSE 64; RESP 18; TEMP 98.1; O2SAT 98
--- NOTE | 2017-09-17 11:03 | HHI.NSPN ---
(Chandrakant Yeung) History Chief Complaint: "I have my moments." (Chandrakant Yeung) Interval History 09/03: Ms. Mayberry is a 32-year-old female who previously underwent lumboperitoneal shunt placement 08/12/2017 for treatment of idiopathic intracranial hypertension. She has had significant persistent pain in the right subcostal region at the shunt distal catheter insertion site since surgery. She indicates that the pain seemed a little better a week ago, but over this past weekend significantly increased. She has had no fevers or chills. She does complain of persistent nausea and vomiting, somewhat increased over the weekend, although she has also been taking more hydromorphone , which seemed to cause nausea. She remains on MS Contin 15 mg twice daily. No diarrhea. Intermittent constipation. She is taking laxative at home. The patient has presented back to the emergency room several times since surgery, for various complaints including the right subcostal pain as well as problems with constipation and persistent vomiting. 09/04: This morning the patient is asleep in bed but does awaken to voice. After that she is alert. She states that she continues to have pain to the right lower abdominal wall toward the flank. The pain at the right epigastric incision has improved. She continues to have nausea and vomiting with oral hydromorphone. She does say she has a migraine today. She does have some mild right lower extremity weakness. Earlier this morning Nursing reported that the patient was refusing to take the oral hydromorphone and wanted it intravenously. 09/05: When seen this afternoon the patient is awake in the bed watching TV and talking with the Erp Manager. She states that she does have pain to the right lower rib area between the abdominal wall surgical incisions. She has no headache or dizziness today. There is no change in her sensorimotor exam. Her abdomen is soft and nontender from the epigastric abdominal wall surgical incision inferiorly and laterally. 09/06: Reports overall she is feeling better, her headaches has improved as well as her abdominal pain. She is ambulating to the bathroom. 09/07: constipated, resting in bed. 09/08: The patient is awake in bed on her cellphone. She continues to have right -sided abdominal wall pain. She did have a slight headache and dizziness earlier. There is no change in her motor strength. 09/09: This morning the patient is awake and looking at her cellphone. She states that the right side of her abdomen is "so-so." She does state that the patch has helped some. She says her headaches have been from her using her head to turn. Her exam is essentially the same. She does complain that she was sitting on the toilet for over an hour yesterday because no one answered the call light and her family eventually had to call the front desk worker for help. 09/10: When seen this afternoon the patient appears to be asleep. She did turn her head toward this practitioner's voice when greeted. She states that she is doing "So-so" and her pain is "so-so." She does have a headache still. Upon examination she is only tender at the epigastric surgical incision. Upon examination her motor strength varies with repeat testing. Patient being transitioned to oral pain medication and is tolerating oral hydromorphone and not requested any intravenous hydromorphone since this morning. She also has not reported any nausea. 09/11: Patient complains of increasing nausea overnight. Also increasing headache at the skull base. When I first asked about the headache and asked her if it is any different than her typical chronic headache, she states that it is the same as she has had for a long time, even prior to the shunt surgery. However when she inquires regarding specifics of a shunt type headache, described by the undersigned is a pressure type headache at the skull base, she reiterates that she does indeed have that type of headache and it is present in the past 2 or 3 days, although not present initially postoperative. Complains of persistent nausea. She states that it seems to come on when she eats fried food or certain other food. She now seems uncertain whether it is still related to the oral Dilaudid. She states her pain is again severe of the subcostal region. 09/12: Today the patient states that her headache is much better and her vision is better. She complains of persistent severe upper abdominal-right lateral flank pain along the shunt tract. There is mostly mild to moderate tenderness along the shunt tract. Abdomen remains soft. 09/13: Patient reports continued abdominal pain along the track of the shunt. She reports that her headaches and vision are improved 09/14: Patient reports continued abdominal pain along the track of the shunt. She reports that her headaches and vision are improved Today the patient got out of bed and fell to the ground because of a sharp pain in her abdomen. The pain was in the right lower quadrant below the incision. The patient did not hit her head and did not sustain any other injuries 09/15: The patient has her eyes covered with her left hand, she has the right hand splinting the abdomen and her knees are pulled up. She complains that her abdomen started to get worse on Friday and has continued to worsen. She says she now has to splint her abdomen and have her knees drawn up in order to help reduce the pain. She does have a headache as well. The abdomen is soft and appears minimally tender upon examination. 09/16: Today the patient states that her headache is much better and her vision is better. She complains of persistent severe upper abdominal-right lateral flank pain along the shunt tract. There is mostly mild to moderate tenderness along the shunt tract. Abdomen remains soft. 09/17: This morning the patient is awake in bed and Physical Therapy is at the bedside getting ready to ambulate with her. She states that she has her "moments " when she feels good. She reports she did have a dull headache earlier that is better. Her abdominal pain is also better today. Upon examination there is minimal tenderness to palpation. (Chandrakant Yeung) Exam Results 09/15/17 09/15/17 09/16/17 09/16/17 09/17/17 09/17/17 06:00 18:00 06:00 18:00 06:00 18:00 Intake Total 1440 ml 200 ml Balance 1440 ml 200 ml Intake Oral 1440 ml 200 ml # Voids 1 1 Vital Signs Date Time Temp Pulse Resp B/P (MAP) Pulse Ox O2 Delivery O2 Flow Rate FiO2 09/17/17 08:00 98.1 64 18 114/63 (80) 98 09/17/17 04:11 98.3 62 20 98/60 (73) 98 09/17/17 00:36 98.2 71 18 91/54 (66) 95 09/16/17 19:38 98.5 85 16 99/55 (70) 95 09/16/17 15:50 96.8 95 16 118/75 (89) 99 09/16/17 12:00 98.8 63 20 104/58 (73) 97 09/16/17 08:00 98.0 67 20 108/61 (77) 98 09/16/17 04:00 57 16 97/52 (67) 97 09/16/17 00:00 73 16 113/57 (75) 98 09/15/17 16:00 98.6 71 20 100/56 (71) 97 09/15/17 12:00 98.3 73 20 99/58 (72) 98 09/15/17 08:00 98.5 70 20 102/53 (69) 98 09/15/17 04:54 97.7 78 18 102/61 (75) 98 09/15/17 00:05 98.5 67 18 104/57 (73) 99 09/14/17 20:00 98.3 72 20 106/55 (72) 96 09/14/17 18:30 98.6 67 19 132/68 (89) 97 09/14/17 17:17 98.6 79 17 106/61 (76) 99 09/14/17 16:00 98.1 67 19 99/53 (68) 98 09/14/17 15:11 98.0 75 17 95/53 (67) 95 09/14/17 12:10 98.5 70 19 128/58 (81) 97 09/14/17 11:50 98.6 97 19 103/51 (68) 96 09/14/17 11:30 98.6 130 21 132/76 (94) 94 (Chandrakant Yeung) Physical Examination GENERAL: Awake & alert in bed laying on left side. Her affect is essentially normal and she interacts readily. She appears comfortable and not in any distress. HEENT: Normocephalic, atraumatic. PERRLA 3 mm brisk, EOMI. MMM & pink, tongue midline to protrusion. GASTROINTESTINAL: Abdomen soft, minimally TTP, [address] MUSCULOSKELETAL: HOUSE spontaneously & purposefully w/o difficulty. NEUROLOGICAL: AAOx3. Speech clear & appropriate. Follows commands without difficulty. Sensation appears intact to light touch to the lower extremities. Motor function w/mild weakness that seems to be r/t pain but is otherwise strong. (Chandrakant Yeung) Medical Decision Making Impression and Plan Impression: 1. Idiopathic intracranial hypertension. Patient initially indicated good improvement in headaches and vision for the first couple weeks postoperative. She now indicates some increase in headaches and possibly some worsening vision over the past couple days. Her CT scan of 09/11/2017 does not reveal any significant abnormalities. 2. Postoperative subcostal-flank pain along the subcostal and lateral flank incision sites and shunt tract. This improved quite a bit initially after injection of Exparel during this hospitalization. The pain has waxed and waned over the past week, some days seeming to be relatively well under control, now for the past couple days worse again. Cultures are no growth from an aspiration of the anterior shunt tract earlier last week. Incision remains dry and intact without erythema or edema. 3. Persistent nausea. This appears to be partially related to narcotic medications. She previously seem to have nausea with oral Dilaudid, but this is now only questionable. Today she states that she feels that fried food and other foods may be triggering it. She states she ate some chicken fingers yesterday and she thinks it made her nauseated. 4. Probable opioid dependence. 5. Probable depression The patient is doing better today w/improvement in her headache and abdominal pain. Afebrile past 24 hrs. No tachycardia past 24 hrs. Intermittently w/SBP into 90s. Reviewed labs for today. Hypokalemia noted on resolved. Plan: Regular diet. Neuro checks q4h. Vital signs q4h. Mobilise patient w/assistance as needed. Elevate HOB. Continue current pain medication regimen. Continue ondansetron for N/V. Patient scheduled for surgery for laparoscopic repositioning of LP shunt catheter. (Chandrakant Yeung) Attending Statement The exam, history, and the medical decision-making described in the above note were completed with the assistance of the mid-level provider. I reviewed and agree with the findings presented. I attest that I had a [id number] encounter with the patient on the same day, and personally performed and documented my assessment and findings in the medical record. On my examination 09/17/2017, the patient is awake and alert. Complains of persistent significant pain along the right upper quadrant and flank and subcostal region. Today primary area of pain is medial to the right upper quadrant incision. The incisions remain dry and intact without erythema edema or drainage. Discussed findings at length with the patient. She wishes to proceed with repositioning of the shunt catheter on 09/19/2017. Continuing to wean IV narcotic medications Neuropsychology consult-patient expresses positive interaction with neuropsychology. (Mamadou Cerrato MD) Chandrakant Yeung September 17, 2017 11:03 Mamadou Cerrato MD September 18, 2017 08:35
[2017-09-17 12:00] VITALS: BP 119/78; PULSE 78; RESP 18; TEMP 98.4; O2SAT 96
[2017-09-17] MEDS: ONDANSETRON HCL 4 MG/2 ML VIAL IV PUSH PRN (15:42)
[2017-09-17 16:00] VITALS: BP 114/61; PULSE 63; RESP 18; TEMP 98.3; O2SAT 97
[2017-09-17] MEDS: REMOVE OLD PATCH T-DERMAL SCH (19:47)
[2017-09-17 20:00] VITALS: BP 111/66; PULSE 65; RESP 18; TEMP 98; O2SAT 100
[2017-09-17] MEDS: 1/2 NS + KCL 20 MEQ INJ 1,000 ML IV SCH (22:31)
[2017-09-18] VITALS: BP 108/57; PULSE 63; RESP 17; TEMP 98.7; O2SAT 97
[2017-09-18 01:38] VITALS: BP 98/58; PULSE 65; RESP 20; TEMP 98.3; O2SAT 98
[2017-09-18] MEDS: ONDANSETRON ODT 4 MG TAB SL PRN ×2 (01:51→09:35)
[2017-09-18] MEDS: HYDROmorphone HCL 2 MG TAB PO PRN ×5 (04:54→23:07)
[2017-09-18 05:02] VITALS: BP 117/62; PULSE 56; RESP 20; TEMP 97.8; O2SAT 98
[2017-09-18] MEDS: HYDROmorphone HCL PF 0.5 MG/0.5 ML SYRINGE IV PUSH PRN ×4 (06:12→21:02)
[2017-09-18 08:00] VITALS: BP 125/66; PULSE 56; RESP 18; TEMP 99; O2SAT 98
--- NOTE | 2017-09-18 08:29 | HHI.PR ---
Neuropsych Emotional Emotional: Moderate: Anxious/Fearful, Depressed/Sad Behavior Behavior: Moderate: Coping/Acceptance, Cooperative w/ Treatment, Motivation, Frustration Tolerance/[place] Cognitive Cognitive: Intact: Cognitive, Attention/Concentration, Confused/Orientation, Insight/Awareness, Judgement/Problem-Solving, Memory Psychosocial Psychosocial: Mild: Family/Other Adjustment, Realistic Expectation, Moderate: Psychosocial Progress Notes/Response to Tx Contents of Sessions: Adjustment Time with Patient: 30 minutes Premorbid psychological status Premorbid Cognitive, Emotional and Behavioral Status: Stable. The patient has high school and technical years of education and a solid work history prior to this injury. The patient has prior psychiatric difficulties of depression as a child. as described above. Substance abuse history is unremarkable. Behavioral Reactions of Patient and Family/Support System: Tenuous. The patients family is experiencing ongoing issues of adjustment given the nature of the injury, and this aspect of recovery will require ongoing monitoring. Emotional/Behavioral Status of Patient and Family/Support System: Tenuous. Pertinent issues, if appropriate to this patients clinical care, are described in detail above. Maximizing acute care outcome It is recommended that the patient be monitored for improved anxiety and worry as the medical condition evolves. Pharmacological management of her anxiety/ depression may be beneficial, unless medically contraindicated. Specifically, she has had good results with Prozac in the past, and she may benefit from Prozac 20 qD. At this point in the recovery process, the patient does have cognitive capacity as the patient is able to understand a situation and its likely consequences, and she is able to manipulate information rationally. Cognitive capacity will be assessed throughout the recovery process. Anticipated Problems Ongoing areas of concern will include anxiety, somatic focus and depression, which is expected to improve with time and treatment. She will be seen by neuropsychology throughout her stay to facilitate an optimal therapeutic outcome. Treatment Plan This clinician will continue to follow with you throughout the course of this patients acute care treatment, and I will be available to meet with the patient s family/support system to facilitate their understanding and the ongoing care of their family member. The goals of neuropsychological intervention shall be both educational and supportive to the family/support system as is deemed clinically appropriate. Impression This 32 year old woman remains hospitalized for complications related to her shunt placement for idiopathic intracranial hypertension, and who presents with underlying anxiety and somatic preoccupation concerning her condition which is serving to interfere with her treatment. 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 Reportedly improved in terms of somatic complaints and increased effort for therapy. She is scheduled to undergo shunt revision tomorrow. I provided her support and encouragement, as well as listened to her concerns and assisted with helping her to understand alternative explanations for interpersonal encounters. I discussed her care with PA. I will continue to follow in order to ensure an optimal therapeutic outcome. Darian Shin PhD September 18, 2017 8:29 am
[2017-09-18] MEDS: DOCUSATE SODIUM 50 MG/SENNA 8.6 MG TAB PO SCH ×2 (09:34→21:02)
[2017-09-18] MEDS: LIDOCAINE HCL 5% PATCH T-DERMAL SCH (09:36)
[2017-09-18] MEDS: TOPIRAMATE 100 MG TAB PO SCH ×2 (09:36→21:00)
[2017-09-18] MEDS: MORPHINE SULFATE 15 MG CONTROLLED RELEASE TAB PO SCH ×2 (09:36→21:01)
--- NOTE | 2017-09-18 10:12 | HHI.NSPN ---
(Chandrakant Yeung) History Chief Complaint: Abdominal pain (Chandrakant Yeung) Interval History 09/03: Ms. Mayberry is a 32-year-old female who previously underwent lumboperitoneal shunt placement 08/12/2017 for treatment of idiopathic intracranial hypertension. She has had significant persistent pain in the right subcostal region at the shunt distal catheter insertion site since surgery. She indicates that the pain seemed a little better a week ago, but over this past weekend significantly increased. She has had no fevers or chills. She does complain of persistent nausea and vomiting, somewhat increased over the weekend, although she has also been taking more hydromorphone , which seemed to cause nausea. She remains on MS Contin 15 mg twice daily. No diarrhea. Intermittent constipation. She is taking laxative at home. The patient has presented back to the emergency room several times since surgery, for various complaints including the right subcostal pain as well as problems with constipation and persistent vomiting. 09/04: This morning the patient is asleep in bed but does awaken to voice. After that she is alert. She states that she continues to have pain to the right lower abdominal wall toward the flank. The pain at the right epigastric incision has improved. She continues to have nausea and vomiting with oral hydromorphone. She does say she has a migraine today. She does have some mild right lower extremity weakness. Earlier this morning Nursing reported that the patient was refusing to take the oral hydromorphone and wanted it intravenously. 09/05: When seen this afternoon the patient is awake in the bed watching TV and talking with the Spindle Maker. She states that she does have pain to the right lower rib area between the abdominal wall surgical incisions. She has no headache or dizziness today. There is no change in her sensorimotor exam. Her abdomen is soft and nontender from the epigastric abdominal wall surgical incision inferiorly and laterally. 09/06: Reports overall she is feeling better, her headaches has improved as well as her abdominal pain. She is ambulating to the bathroom. 09/07: constipated, resting in bed. 09/08: The patient is awake in bed on her cellphone. She continues to have right -sided abdominal wall pain. She did have a slight headache and dizziness earlier. There is no change in her motor strength. 09/09: This morning the patient is awake and looking at her cellphone. She states that the right side of her abdomen is "so-so." She does state that the patch has helped some. She says her headaches have been from her using her head to turn. Her exam is essentially the same. She does complain that she was sitting on the toilet for over an hour yesterday because no one answered the call light and her family eventually had to call the credit front office developer for help. 09/10: When seen this afternoon the patient appears to be asleep. She did turn her head toward this practitioner's voice when greeted. She states that she is doing "So-so" and her pain is "so-so." She does have a headache still. Upon examination she is only tender at the epigastric surgical incision. Upon examination her motor strength varies with repeat testing. Patient being transitioned to oral pain medication and is tolerating oral hydromorphone and not requested any intravenous hydromorphone since this morning. She also has not reported any nausea. 09/11: Patient complains of increasing nausea overnight. Also increasing headache at the skull base. When I first asked about the headache and asked her if it is any different than her typical chronic headache, she states that it is the same as she has had for a long time, even prior to the shunt surgery. However when she inquires regarding specifics of a shunt type headache, described by the undersigned is a pressure type headache at the skull base, she reiterates that she does indeed have that type of headache and it is present in the past 2 or 3 days, although not present initially postoperative. Complains of persistent nausea. She states that it seems to come on when she eats fried food or certain other food. She now seems uncertain whether it is still related to the oral Dilaudid. She states her pain is again severe of the subcostal region. 09/12: Today the patient states that her headache is much better and her vision is better. She complains of persistent severe upper abdominal-right lateral flank pain along the shunt tract. There is mostly mild to moderate tenderness along the shunt tract. Abdomen remains soft. 09/13: Patient reports continued abdominal pain along the track of the shunt. She reports that her headaches and vision are improved 09/14: Patient reports continued abdominal pain along the track of the shunt. She reports that her headaches and vision are improved Today the patient got out of bed and fell to the ground because of a sharp pain in her abdomen. The pain was in the right lower quadrant below the incision. The patient did not hit her head and did not sustain any other injuries 09/15: The patient has her eyes covered with her left hand, she has the right hand splinting the abdomen and her knees are pulled up. She complains that her abdomen started to get worse on Friday and has continued to worsen. She says she now has to splint her abdomen and have her knees drawn up in order to help reduce the pain. She does have a headache as well. The abdomen is soft and appears minimally tender upon examination. 09/16: Today the patient states that her headache is much better and her vision is better. She complains of persistent severe upper abdominal-right lateral flank pain along the shunt tract. There is mostly mild to moderate tenderness along the shunt tract. Abdomen remains soft. 09/17: This morning the patient is awake in bed and Physical Therapy is at the bedside getting ready to ambulate with her. She states that she has her "moments " when she feels good. She reports she did have a dull headache earlier that is better. Her abdominal pain is also better today. Upon examination there is minimal tenderness to palpation. 09/18: Neuropsychology spoke with this practitioner prior to the patient being seen and felt that she would benefit from being placed on fluoxetine which she has been on previously. When seen this morning the patient is tapping away at her cellphone and appeared fairly comfortable. She did say she was doing okay but having abdominal pain. There was no change in her physical exam. (Chandrakant Yeung) Exam Results 09/16/17 09/16/17 09/17/17 09/17/17 09/18/17 09/18/17 06:00 18:00 06:00 18:00 06:00 18:00 Intake Total 200 ml Balance 200 ml Intake Oral 200 ml # Voids 1 1 Vital Signs Date Time Temp Pulse Resp B/P (MAP) Pulse Ox O2 Delivery O2 Flow Rate FiO2 09/18/17 08:00 99.0 56 18 125/66 (85) 98 09/18/17 05:02 97.8 56 20 117/62 (80) 98 09/18/17 01:38 98.3 65 20 98/58 (71) 98 09/17/17 20:00 98.0 65 18 111/66 (81) 100 09/17/17 16:00 98.3 63 18 114/61 (78) 97 09/17/17 12:00 98.4 78 18 119/78 (92) 96 09/17/17 08:00 98.1 64 18 114/63 (80) 98 09/17/17 04:11 98.3 62 20 98/60 (73) 98 09/17/17 00:36 98.2 71 18 91/54 (66) 95 09/16/17 19:38 98.5 85 16 99/55 (70) 95 09/16/17 15:50 96.8 95 16 118/75 (89) 99 09/16/17 12:00 98.8 63 20 104/58 (73) 97 09/16/17 08:00 98.0 67 20 108/61 (77) 98 09/16/17 04:00 57 16 97/52 (67) 97 09/16/17 00:00 73 16 113/57 (75) 98 09/15/17 16:00 98.6 71 20 100/56 (71) 97 09/15/17 12:00 98.3 73 20 99/58 (72) 98 (Chandrakant Yeung) Physical Examination GENERAL: Awake & alert in bed laying on her back with her legs straight out. Her affect is essentially normal and she interacts readily. She appears fairly comfortable and not in any distress. HEENT: Normocephalic, atraumatic. GASTROINTESTINAL: Abdomen soft, minimally TTP, [address] MUSCULOSKELETAL: HOUSE spontaneously & purposefully w/o difficulty. NEUROLOGICAL: AAOx3. Speech clear & appropriate. Follows commands without difficulty. Sensation appears intact to light touch to the lower extremities. Muscle strength appears normal. (Chandrakant Yeung) Medical Decision Making Impression and Plan Impression: 1. Idiopathic intracranial hypertension. Patient initially indicated good improvement in headaches and vision for the first couple weeks postoperative. She now indicates some increase in headaches and possibly some worsening vision over the past couple days. Her CT scan of 09/11/2017 does not reveal any significant abnormalities. 2. Postoperative subcostal-flank pain along the subcostal and lateral flank incision sites and shunt tract. This improved quite a bit initially after injection of Exparel during this hospitalization. The pain has waxed and waned over the past week, some days seeming to be relatively well under control, now for the past couple days worse again. Cultures are no growth from an aspiration of the anterior shunt tract earlier last week. Incision remains dry and intact without erythema or edema. 3. Persistent nausea. This appears to be partially related to narcotic medications. She previously seem to have nausea with oral Dilaudid, but this is now only questionable. Today she states that she feels that fried food and other foods may be triggering it. She states she ate some chicken fingers yesterday and she thinks it made her nauseated. 4. Probable opioid dependence. 5. Probable depression The patient is doing well and stable in her exam. Afebrile past 24 hrs. No tachycardia past 24 hrs. Intermittently w/SBP into 90s. Plan: Regular diet. Neuro checks q4h. Vital signs q4h. Mobilise patient w/assistance as needed. Elevate HOB. Wean narcotic pain medication per Neurosurgery Attending. Continue ondansetron for N/V. Will start fluoxetine 20 mg QD. Patient scheduled for surgery for laparoscopic repositioning of LP shunt catheter. (Chandrakant Yeung) Attending Statement The exam, history, and the medical decision-making described in the above note were completed with the assistance of the mid-level provider. I reviewed and agree with the findings presented. I attest that I had a [id number] encounter with the patient on the same day, and personally performed and documented my assessment and findings in the medical record. Ms. Mayberry has no significant change in symptoms of right upper quadrant and subcostal and right flank pain. Incisions remain dry and intact Discussed treatment options. She would like to proceed with shunt catheter repositioning with laparoscopic peritoneal catheter placement on 09/19/2017. The procedure risks and possible complications of been fully discussed. She understands that there is no guarantee that the present pain symptoms will resolve with further surgery. Consents have been reviewed with the patient and signed today. All questions answered (Mamadou Cerrato MD) Chandrakant Yeung September 18, 2017 10:12 Mamadou Cerrato MD September 18, 2017 15:16
[2017-09-18] MEDS: FLUoxetine HCL 20 MG CAP PO SCH (11:24)
[2017-09-18 12:00] VITALS: BP 136/80; PULSE 64; RESP 18; TEMP 98.5; O2SAT 97
[2017-09-18 16:00] VITALS: BP 103/59; PULSE 56; RESP 18; TEMP 98.5; O2SAT 100
[2017-09-18] MEDS ORDERED: CHLORHEXIDINE GLUCONATE 2 % 1 PACK (2 CLOTHS) TOPICAL PRN (17:00)
[2017-09-18] MEDS ORDERED: METOPROLOL TARTRATE 25 MG TAB PO PRN (17:00)
[2017-09-18] MEDS ORDERED: SODIUM CHLORID 0.9% 500 ML IV PRN (17:00)
[2017-09-18] MEDS ORDERED: LACTATED RINGER'S 1000 ML IV PRN (17:00)
[2017-09-18] MEDS ORDERED: POVIDONE IODINE 5% (ANTISEPSIS KIT) 4 APPLICATIONS EACH NARE PRN (17:00)
[2017-09-18] MEDS: REMOVE OLD PATCH T-DERMAL SCH (21:00)
[2017-09-18 21:15] LABS: AUTOMATED NEUTROPHIL # 5.5 TH/MM3 (1.8-7.7); BASOPHIL % 0.3 % (0.0-2.0); EOSINOPHIL # 0.2 TH/MM3 (0-0.4); EOSINOPHIL % 2.4 % (0.0-4.0); HEMATOCRIT 35.5 % (35.0-46.0); HEMOGLOBIN 11.5 GM/DL (11.6-15.3); LYMPH % 30.2 % (9.0-44.0); LYMPHOCYTE # 2.8 TH/MM3 (1.0-4.8); MEAN CORPUSCULAR HEMOGLOBIN 26.6 PG (27.0-34.0); MEAN CORPUSCULAR HGB CONC 32.4 % (32.0-36.0); MEAN PLATELET VOLUME 8.6 FL (7.0-11.0); MONO % 7.1 % (0.0-8.0); MONOCYTE # 0.6 TH/MM3 (0-0.9); PLATELET COUNT 295 TH/MM3 (150-450); RED BLOOD COUNT 4.33 MIL/MM3 (4.00-5.30); RED CELL DISTRIBUTION WIDTH 13.6 % (11.6-17.2); WHITE BLOOD COUNT 9.1 TH/MM3 (4.0-11.0)
[2017-09-18 21:35] LABS: BICARBONATE 20.9 MEQ/L (21.0-32.0); CALCIUM 8.8 MG/DL (8.5-10.1); CREATININE 0.73 MG/DL (0.50-1.00)
[2017-09-18] MEDS: 1/2 NS + KCL 20 MEQ INJ 1,000 ML IV SCH (23:05)
[2017-09-19 00:45] VITALS: BP 105/59; PULSE 62; RESP 16; TEMP 98.8; O2SAT 98
[2017-09-19] MEDS: HYDROmorphone HCL PF 0.5 MG/0.5 ML SYRINGE IV PUSH PRN ×3 (01:22→09:07)
[2017-09-19] MEDS: HYDROmorphone HCL 2 MG TAB PO PRN ×2 (03:55→08:08)
[2017-09-19] MEDS: ONDANSETRON ODT 4 MG TAB SL PRN (05:53)
[2017-09-19 06:00] VITALS: BP 101/60; PULSE 69; RESP 16; TEMP 98.9; O2SAT 98
[2017-09-19] MEDS: FLUoxetine HCL 20 MG CAP PO SCH (08:06)
[2017-09-19] MEDS: TOPIRAMATE 100 MG TAB PO SCH (08:06)
[2017-09-19] MEDS: DOCUSATE SODIUM 50 MG/SENNA 8.6 MG TAB PO SCH ×2 (08:07→21:00)
[2017-09-19] MEDS: MORPHINE SULFATE 15 MG CONTROLLED RELEASE TAB PO SCH (08:07)
[2017-09-19] MEDS ORDERED: CHLORHEXIDINE GLUCONATE 4% SOLN 120 ML BTL TOPICAL ONE (08:45)
[2017-09-19] MEDS ORDERED: POLYETHYLENE GLYCOL 17 GM PKG PO SCH (09:00)
[2017-09-19] MEDS: LIDOCAINE HCL 5% PATCH T-DERMAL SCH (09:00)
[2017-09-19] MEDS ORDERED: FLUCONAZOLE 100 MG TAB PO ONE (09:15)
[2017-09-19] MEDS ORDERED: MIDAZOLAM HCL 2 MG/2 ML VIAL ONE ×2 (10:15→16:01)
[2017-09-19] MEDS ORDERED: ACETAMINOPHEN 1000 MG/100 ML 100 ML IV ONE (10:15)
[2017-09-19] MEDS ORDERED: GELFOAM SIZE 100 ONE (10:49)
[2017-09-19] MEDS ORDERED: THROMBIN (TOPICAL) 5,000 UNIT VIAL ONE (10:49)
[2017-09-19] MEDS ORDERED: BUPIVACAINE/EPINEPHRINE 0.25% 50 ML VIAL ONE (10:49)
[2017-09-19] MEDS ORDERED: GENTAMICIN SULFATE 80 MG/2 ML VIAL ONE (10:50)
[2017-09-19] MEDS ORDERED: LIDOCAINE 1%/EPINEPHrine 1:100,000 SOLN 50 ML VIAL ONE (10:50)
[2017-09-19] MEDS ORDERED: CLINDAMYCIN PHOS 600 MG/4 ML VIAL ONE (11:47)
[2017-09-19] MEDS ORDERED: ROCURONIUM INJ 50 MG/5 ML SYRINGE IV PUSH ONE (12:00)
[2017-09-19] MEDS ORDERED: PROPOFOL 200 MG/20 ML AMP IV ONE (12:00)
[2017-09-19] MEDS ORDERED: GLYCOPYRROLATE 1 MG/5 ML SYRINGE IV PUSH ONE (12:00)
[2017-09-19] MEDS ORDERED: ESMOLOL HCL 100 MG/10 ML VIAL IV ONE (12:00)
[2017-09-19] MEDS ORDERED: ePHEDrine/NS 25 MG/5 ML SYRINGE IV ONE (12:00)
[2017-09-19] MEDS ORDERED: DEXAMETHASONE SOD PHOS 4 MG/ML VIAL IV ONE (12:00)
[2017-09-19] MEDS ORDERED: ONDANSETRON HCL 4 MG/2 ML VIAL IV PUSH ONE (12:00)
[2017-09-19] MEDS ORDERED: LIDOCAINE HCL 1% PF 5 ML SYRINGE OTHER ONE (12:00)
[2017-09-19] MEDS ORDERED: VECURONIUM BROMIDE 20 MG VIAL IV ONE (12:00)
[2017-09-19] MEDS ORDERED: PHENYLEPH/NS 1000 MCG/10 ML SYR IV ONE (12:00)
[2017-09-19] MEDS ORDERED: BUPIVACAINE LIPOSOME PF 1.3% 20 ML VIAL ONE ×2 (12:30→14:51)
[2017-09-19] MEDS ORDERED: SUGAMMADEX SODIUM 200 MG/2 ML VIAL IV PUSH ONE (13:01)
[2017-09-19] MEDS ORDERED: HYDROmorphone HCL PF 2 MG/ML VIAL ONE (14:58)
[2017-09-19] MEDS ORDERED: DO NOT ADM ANY ANTICOAGULANT DRUGS PRN (15:51)
[2017-09-19] MEDS ORDERED: *morphine SULFATE 8 MG/ML PERIprocedure ONLY ONE (15:58)
[2017-09-19] MEDS: 1/2 NS + KCL 20 MEQ INJ 1,000 ML IV SCH (16:30)
[2017-09-19] MEDS ORDERED: NALOXONE HCL 0.4 MG/ML AMP IV PUSH PRN (16:30)
[2017-09-19] MEDS ORDERED: *morphine SULFATE 4 MG/ML PERIprocedure ONLY ONE (16:30)
[2017-09-19] MEDS: HYDROmorphone HCL PCA 6 MG/30 ML IV SCH (18:46)
[2017-09-19] MEDS: ONDANSETRON HCL 4 MG/2 ML VIAL IV PUSH PRN (19:05)
[2017-09-19 20:00] VITALS: BP 127/77; PULSE 94; RESP 18; TEMP 98.2; O2SAT 94
--- NOTE | 2017-09-19 20:03 | MP ---
cc: Damien Morrison MD, Michael A MD DATE OF OPERATION: 09/19/2017 PROCEDURE: Laparoscopic placement of peritoneal portion of a lumbar peritoneal drain. PREOPERATIVE DIAGNOSIS: Persistent pain from previously placed lumbar peritoneal drain with probable nerve entrapment. POSTOPERATIVE DIAGNOSIS: Persistent pain from previously placed lumbar peritoneal drain with probable nerve entrapment. ANESTHESIA: General endotracheal. SURGEON: Damien Morrison MD HOUSE MOVING SUPERVISOR: Mamadou Cerrato MD ESTIMATED BLOOD LOSS: Minimal. COMPLICATIONS: None. DRAINS: None SPECIMENS: None. PROCEDURE IN DETAIL: Undersigned scrubbed into the room after Dr. Cerrato had placed a lumbar drain and the patient had been repositioned in the supine position. Abdomen was prepped and draped. A second timeout was called, confirming the correct patient, site, and procedures to be performed. The undersigned then infiltrated the skin and subcutaneous tissue above the umbilicus with local anesthetic. A 0-degree laparoscope was inserted into the a 5 mm trocar and then this was gently d and, with pressure, entered the abdominal cavity under direct vision uneventfully under low insufflation. The abdomen was then insufflated and a 5-mm 30-degree laparoscope was inserted. A second 5 mm trocar was placed in the upper midline; this entered the abdominal cavity under direct vision uneventfully. Omentum was seen adhesed very lightly to the previously placed lumbar drain. This was taken down easily with blunt dissection. There was no bleeding noted. At this point, Dr. Cerrato used the tunneling device and entered into the abdominal cavity in the left upper quadrant. The catheter was then placed into a plastic sheath and the sheath was pulled into the abdominal cavity. The catheter slack was then pulled up and the catheter then was positioned such that the catheter was between the stomach and the lateral segment of the left lobe of the liver. When it had been placed there and the plastic sheath was maneuvered, the plastic sheath was removed via the upper 5 mm trocar site and passed off the table. The upper abdomen was visualized and seen to be hemostatic. At this point, insufflation was discontinued and the upper 5 mm trocar removed under direct vision. No bleeding was noted from the trocar site. The laparoscope and supraumbilical trocar were both removed. The skin was closed at both sites with 4-0 Vicryl in an interrupted buried fashion. Dr. Cerrato then completed the other portion of the procedure with placement of the pump in an easily accessible location in the left lateral abdomen. He also then proceeded to remove the old lumbar peritoneal drain. Undersigned scrubbed out for these portions of the procedure. MD MILA Mann/ , 07:06 PM , 08:02 PM
[2017-09-19] MEDS: REMOVE OLD PATCH T-DERMAL SCH (21:00)
--- NOTE | 2017-09-19 23:18 | PD.OP ---
Operative Report Date of Surgery: September 19, 2017 Preoperative Diagnosis: (1) Pseudotumor cerebri (2) Post-op pain Postoperative Diagnosis: (1) Pseudotumor cerebri (2) Post-op pain Procedure: 1. Revision lumboperitoneal shunt Anesthesia: General endotracheal Surgeon: Mamadou Cerrato Medical Practice Administrator(s): Damien Posadas Operation and Findings: Findings: Significant early scar tissue and adhesions along previously placed shunt valve at the right lower costal margin. No obvious signs of infection. Procedure in detail: Patient was brought in the operating room and general endotracheal anesthesia induced without difficulty. MEME hose, and sequential compression devices were placed. Lines were established for anesthesia. The patient was placed in a lateral decubitus position with the previous lumbar midline incision exposed. The lumbosacral and left abdominal region region was prepped and draped in a sterile fashion Appropriate time-out procedure was performed with all personnel present and in agreement 1% Xylocaine with epinephrine was used for local infiltration over the initial incision site which was made overlying the previous incision to the right of midline at the L4 5 level and carried sharply down to the lumbodorsal fascia. The deep self-retaining retractor was placed. The previous Silastic anchor and the subarachnoid catheter were exposed. The catheter was cut approximately 5 cm distal to the anchor, and a stepdown connector was used to connect the distal part of the subarachnoid catheter to the proximal part of the peritoneal catheter, with the connection secured with 3 -0 silk ties. The shunt passer was then used to pass the shunt to the left anterior lateral abdominal wall for a second incision was made and utilized to pass the catheter to the left lateral abdominal incision site. The catheter was attached using a straight connector and 3-0 silk ties to a new Energreen adjustable valve preset to 120 and checked with preoperative x- ray. The distal catheter was then buried into a subcutaneous pouch prior to closure of the incision There was noted to be good spontaneous flow of cerebrospinal fluid through the catheter. The incisions were closed with 2-0 Vicryl for the deep lumbar closure and 3-0 Vicryl subcutaneous with 4-0 Vicryl running subcuticular for both lumbar and left abdominal incision sites. A dressing of sterile Mastisol, Steri-Strips was placed with a silver impregnated dressing over the lumbar incision. The patient was then turned into the supine position on the 3080 table and all extremities appropriately padded. The previous right flank incision as well as the right and left side of abdomen were prepped and draped in a sterile fashion. The previously made incision at the left lateral abdomen was reopened and the shunt passer used create a subcutaneous tract towards the left upper quadrant. Dr. Morrison proceeded with the laparoscopic exposure of the left upper abdominal wall and subsequent placement of the distal catheter in the peritoneal cavity which will be dictated separately. Using laparoscopic visualization, the shunt passer was used to perforate into the abdominal cavity and the shunt was then passed through the plastic sheath which was advanced into the abdominal cavity and pulled free through the incision used for the laparoscopic port per Dr. Morrison. There was noted to be good flow of CSF through the distal catheter after he was brought into the peritoneal cavity. After laparoscopic placement of the catheter per Dr. Morrison, the port incisions were closed per general surgery. One percent Xylocaine with epinephrine was used for local infiltration over the previously made right upper quadrant incision which was made just below the right costal margin and carried sharply down to the muscle fascia which was reopened with the Metzenbaum scissors. Previous sutures were removed. There is noted to be quite a bit of adhesion and scar tissue at the previous shunt valve placement site. The previously placed valve was freed from any surrounding tissue and the valve and remaining catheter were removed. A very careful check was made to make certain that there was no suture entrapment of any neurovascular structures. Prior to closure of the right upper quadrant incision, the tissues along the costal margin were infiltrated with Exparel. The incisions were well irrigated with antibiotic irrigation at each layer of closure. The closure was performed with 3-0 Vicryl for the deep fascia and subcutaneous closure with 4-0 Vicryl running subcuticular closure for both incisions for the skin closure. An additional running 4-0 nylon was placed at the previous right subcostal incision site. At both incisions, a dressing of sterile Mastisol, Steri-Strips, and Prim[place] was placed. The patient was taken to recovery room in stable condition All counts were correct at the end of the case. A swab culture of the right subcostal incision site and previous shunt valve placement site was sent for routine microbiology. No specimen was sent to pathology Estimated blood loss was 50 cc. Mamadou Cerrato MD September 19, 2017 23:18
[2017-09-20] VITALS (7 sets, daily range): BP systolic 105–134; BP diastolic 55–69; PULSE 56–83; RESP 17–18; TEMP 97–98.5; O2SAT 94–97
[2017-09-20] MEDS: TOPIRAMATE 200 MG TAB PO SCH ×3 (00:07→21:24)
[2017-09-20] MEDS: PCA - TOTAL MG DILAUDID DELIVERED PER SHIFT OTHER SCH ×3 (00:09→19:23)
[2017-09-20] MEDS: 1/2 NS + KCL 20 MEQ INJ 1,000 ML IV SCH ×2 (00:09→16:20)
[2017-09-20] MEDS: ONDANSETRON HCL 4 MG/2 ML VIAL IV PUSH PRN ×2 (02:04→17:30)
[2017-09-20] MEDS: HYDROmorphone HCL PCA 6 MG/30 ML IV SCH ×5 (02:11→21:20)
[2017-09-20] MEDS: DOCUSATE SODIUM 50 MG/SENNA 8.6 MG TAB PO SCH ×2 (08:55→21:24)
[2017-09-20] MEDS: FLUoxetine HCL 20 MG CAP PO SCH (08:55)
[2017-09-20] MEDS: LIDOCAINE HCL 5% PATCH T-DERMAL SCH (08:55)
[2017-09-20] MEDS: POLYETHYLENE GLYCOL 17 GM PKG PO SCH (08:57)
--- NOTE | 2017-09-20 17:28 | HHI.NSPN ---
(Chandrakant Yeung) History Chief Complaint: Abdominal pain (Chandrakant Yeung) Interval History 09/08: The patient is awake in bed on her cellphone. She continues to have right -sided abdominal wall pain. She did have a slight headache and dizziness earlier. There is no change in her motor strength. 09/09: This morning the patient is awake and looking at her cellphone. She states that the right side of her abdomen is "so-so." She does state that the patch has helped some. She says her headaches have been from her using her head to turn. Her exam is essentially the same. She does complain that she was sitting on the toilet for over an hour yesterday because no one answered the call light and her family eventually had to call the javascript front end developer for help. 09/10: When seen this afternoon the patient appears to be asleep. She did turn her head toward this practitioner's voice when greeted. She states that she is doing "So-so" and her pain is "so-so." She does have a headache still. Upon examination she is only tender at the epigastric surgical incision. Upon examination her motor strength varies with repeat testing. Patient being transitioned to oral pain medication and is tolerating oral hydromorphone and not requested any intravenous hydromorphone since this morning. She also has not reported any nausea. 09/11: Patient complains of increasing nausea overnight. Also increasing headache at the skull base. When I first asked about the headache and asked her if it is any different than her typical chronic headache, she states that it is the same as she has had for a long time, even prior to the shunt surgery. However when she inquires regarding specifics of a shunt type headache, described by the undersigned is a pressure type headache at the skull base, she reiterates that she does indeed have that type of headache and it is present in the past 2 or 3 days, although not present initially postoperative. Complains of persistent nausea. She states that it seems to come on when she eats fried food or certain other food. She now seems uncertain whether it is still related to the oral Dilaudid. She states her pain is again severe of the subcostal region. 09/12: Today the patient states that her headache is much better and her vision is better. She complains of persistent severe upper abdominal-right lateral flank pain along the shunt tract. There is mostly mild to moderate tenderness along the shunt tract. Abdomen remains soft. 09/13: Patient reports continued abdominal pain along the track of the shunt. She reports that her headaches and vision are improved 09/14: Patient reports continued abdominal pain along the track of the shunt. She reports that her headaches and vision are improved Today the patient got out of bed and fell to the ground because of a sharp pain in her abdomen. The pain was in the right lower quadrant below the incision. The patient did not hit her head and did not sustain any other injuries 09/15: The patient has her eyes covered with her left hand, she has the right hand splinting the abdomen and her knees are pulled up. She complains that her abdomen started to get worse on Friday and has continued to worsen. She says she now has to splint her abdomen and have her knees drawn up in order to help reduce the pain. She does have a headache as well. The abdomen is soft and appears minimally tender upon examination. 09/16: Today the patient states that her headache is much better and her vision is better. She complains of persistent severe upper abdominal-right lateral flank pain along the shunt tract. There is mostly mild to moderate tenderness along the shunt tract. Abdomen remains soft. 09/17: This morning the patient is awake in bed and Physical Therapy is at the bedside getting ready to ambulate with her. She states that she has her "moments " when she feels good. She reports she did have a dull headache earlier that is better. Her abdominal pain is also better today. Upon examination there is minimal tenderness to palpation. 09/18: Neuropsychology spoke with this practitioner prior to the patient being seen and felt that she would benefit from being placed on fluoxetine which she has been on previously. When seen this morning the patient is tapping away at her cellphone and appeared fairly comfortable. She did say she was doing okay but having abdominal pain. There was no change in her physical exam. 09/19: The patient went for a laparoscopic revision of her lumboperitoneal shunt. Post-operatively the patient returned to the med/surg floor. 09/20: When seen this afternoon the patient is awake in bed and talking with her Nurse. She does say she has pain at the surgical incisions but it is better than yesterday. Upon examination the patient does do some guarding of the abdomen and the abdominal wall is moderately tender to palpation. She does limited participation for testing of her motor strength which appears normal. (Chandrakant Yeung) Exam Results 09/18/17 09/18/17 09/19/17 09/19/17 09/20/17 09/20/17 06:00 18:00 06:00 18:00 06:00 18:00 Intake Total 1800 ml 1820 ml 240 ml Output Total 50 ml Balance 1800 ml 1770 ml 240 ml Intake Oral 1800 ml 120 ml 240 ml Other 1700 ml Estimated Blood Loss 50 ml # Voids 5 3 # Bowel Movements 1 0 Vital Signs Date Time Temp Pulse Resp B/P (MAP) Pulse Ox O2 Delivery O2 Flow Rate FiO2 09/20/17 16:14 98.0 83 18 134/60 (84) 97 09/20/17 15:33 14 09/20/17 15:21 15 09/20/17 11:56 98.5 76 18 110/58 (75) 97 09/20/17 08:44 16 09/20/17 08:24 97.8 72 18 112/56 (74) 97 09/20/17 06:51 18 09/20/17 04:01 97.0 68 18 110/55 (73) 96 09/20/17 03:01 18 09/20/17 02:11 18 09/20/17 00:40 97.6 56 17 105/60 (75) 96 09/20/17 00:33 98.2 78 18 125/64 (84) 94 09/20/17 00:09 18 09/19/17 20:00 98.2 94 18 127/77 (94) 94 09/19/17 18:46 14 09/19/17 17:00 98.1 102 16 124/62 (82) 99 Room Air 09/19/17 16:30 98 16 112/64 (80) 98 Room Air 09/19/17 16:15 118 16 112/65 (81) 98 Room Air 09/19/17 16:00 94 16 113/66 (82) 100 Room Air 09/19/17 15:51 97.3 104 16 134/83 (100) 100 Room Air 09/19/17 06:24 18 09/19/17 06:00 98.9 69 16 101/60 (74) 98 09/19/17 04:55 18 09/19/17 00:45 98.8 62 16 105/59 (74) 98 09/18/17 21:37 18 09/18/17 16:00 98.5 56 18 103/59 (74) 100 09/18/17 12:00 98.5 64 18 136/80 (98) 97 09/18/17 08:00 99.0 56 18 125/66 (85) 98 09/18/17 05:02 97.8 56 20 117/62 (80) 98 09/18/17 01:38 98.3 65 20 98/58 (71) 98 09/18/17 00:00 98.7 63 17 108/57 (74) 97 09/17/17 20:00 98.0 65 18 111/66 (81) 100 (Chandrakant Yeung) Physical Examination GENERAL: Awake & alert in bed laying on her back with her knees bent. Her affect is fairly normal. She is reluctant to do motor testing of the lower extremities. Initially she is mildly uncomfortable but becomes moderately uncomfortable w/evaluation. She is not in any distress. HEENT: Normocephalic, atraumatic. GASTROINTESTINAL: Abdomen soft, moderately TTP. Laparoscopic wounds w/o any drainage, erythema or streaking, steri-strips intact. She does reach out and tries to guard as her abdomen is evaluated. MUSCULOSKELETAL: HOUSE spontaneously & purposefully. Lumbar spine TTP. NEUROLOGICAL: AAOx3. Speech clear & appropriate. Follows commands without difficulty. Sensation appears intact to light touch to the lower extremities. Limited participation due to abdominal pain w/testing but appears to be normal. (Chandrakant Yeung) Lab, Micro, Other Results Laboratory Tests Test 09/18/17 20:16 White Blood Count 9.1 TH/MM3 Red Blood Count 4.33 MIL/MM3 Hemoglobin 11.5 GM/DL Hematocrit 35.5 % Mean Corpuscular Volume 82.0 FL Mean Corpuscular Hemoglobin 26.6 PG Mean Corpuscular Hemoglobin Concent 32.4 % Red Cell Distribution Width 13.6 % Platelet Count 295 TH/MM3 Mean Platelet Volume 8.6 FL Neutrophils (%) (Auto) 60.0 % Lymphocytes (%) (Auto) 30.2 % Monocytes (%) (Auto) 7.1 % Eosinophils (%) (Auto) 2.4 % Basophils (%) (Auto) 0.3 % Neutrophils # (Auto) 5.5 TH/MM3 Lymphocytes # (Auto) 2.8 TH/MM3 Monocytes # (Auto) 0.6 TH/MM3 Eosinophils # (Auto) 0.2 TH/MM3 Basophils # (Auto) 0.0 TH/MM3 CBC Comment DIFF FINAL Differential Comment Prothrombin Time 10.0 SEC Prothromb Time International Ratio 1.0 RATIO Activated Partial Thromboplast Time 26.4 SEC Blood Urea Nitrogen 15 MG/DL Creatinine 0.73 MG/DL Random Glucose 108 MG/DL Calcium Level 8.8 MG/DL Sodium Level 142 MEQ/L Potassium Level 3.6 MEQ/L Chloride Level 111 MEQ/L Carbon Dioxide Level 20.9 MEQ/L Anion Gap 10 MEQ/L Estimat Glomerular Filtration Rate 92 ML/MIN (Chandrakant Yeung) Medical Decision Making Impression and Plan Impression: 1. Idiopathic intracranial hypertension. Patient initially indicated good improvement in headaches and vision for the first couple weeks postoperative. She now indicates some increase in headaches and possibly some worsening vision over the past couple days. Her CT scan of 09/11/2017 does not reveal any significant abnormalities. 2. Postoperative subcostal-flank pain along the subcostal and lateral flank incision sites and shunt tract. This improved quite a bit initially after injection of Exparel during this hospitalization. The pain has waxed and waned over the past week, some days seeming to be relatively well under control, now for the past couple days worse again. Cultures are no growth from an aspiration of the anterior shunt tract earlier last week. Incision remains dry and intact without erythema or edema. 3. Persistent nausea. This appears to be partially related to narcotic medications. She previously seem to have nausea with oral Dilaudid, but this is now only questionable. Today she states that she feels that fried food and other foods may be triggering it. She states she ate some chicken fingers yesterday and she thinks it made her nauseated. 4. Probable opioid dependence. 5. Probable depression The patient is fairly well. She continues to have abdominal pain although she said it was better. Upon examination the patient is moderately tender to palpation of the abdominal wall and back. She limits her participation in muscle testing due to the abdominal pain but her strength appears normal. Afebrile past 24 hrs. Intermittent tachycardia post-operatively yesterday afternoon but none since. POD #1 () s/p: Laparoscopic revision of a lumboperitoneal shunt (Dr Cerrato & Dr Morrison) Plan: Regular diet. Neuro checks q4h. Vital signs q4h. Mobilise patient w/assistance as needed. Elevate HOB. Hydromorphone ORE FEEDER for pain control. Continue ondansetron for N/V. Fluoxetine 20 mg QD. (Chandrakant Yeung) Attending Statement The exam, history, and the medical decision-making described in the above note were completed with the assistance of the mid-level provider. I reviewed and agree with the findings presented. I attest that I had a [id number] encounter with the patient on the same day, and personally performed and documented my assessment and findings in the medical record. On my examination today, the patient is lying in bed. She complains of a headache and some neck discomfort, although she has her neck rather forcefully flexed with a large pillow from home beneath it. There is not significant tenderness to palpation of the neck and no nuchal rigidity. She complains of a headache, which does not appear to be positional. It is unclear whether this is different from her usual headaches. She complains of back pain and abdominal discomfort. She is lying on her back and I have again advised her that she should try to lay on her side and not on her back in order to avoid wound healing issues with the lumbar incision. With assistance, she is able to roll onto her right side. She seems unable to position herself independent during my examination. She states that she is able to get out of bed and walk to the bathroom, however indicates that she is frequently waiting for assistance for positioning. Extraocular movements are intact. She can count fingers in all quadrants bilateral although when I first walked in the room she stares straight ahead and ask who is there, seemingly unable to see me very well. No complaint of nausea and vomiting today. She continues to use the ORE FEEDER, complaining of back and rather diffuse abdominal discomfort. Her abdomen is soft without significant tenderness other than around the incision sites. Plan to continue physical therapy and encouraging the patient to get out of bed. We will begin to wean off IV narcotics again postoperative. (Mamadou Cerrato MD) Chandrakant Yeung September 20, 2017 17:28 Mamadou Cerrato MD September 20, 2017 21:44
--- NOTE | 2017-09-20 18:02 | HHI.PR ---
Subjective Subjective Notes Somewhat painful at incision sites, but better than preop Objective Vitals/I&O Vital Signs Date Time Temp Pulse Resp B/P (MAP) Pulse Ox O2 Delivery O2 Flow Rate FiO2 09/20/17 16:14 98.0 83 18 134/60 (84) 97 09/19/17 17:00 Room Air Labs Date/Time Source Procedure Growth Status 09/03/17 14:30 Fluid Other Fungal Smear - Final NO FUNGAL ELEMENTS SEEN. Resulted 09/03/17 14:30 Fluid Other Fungal Culture - Preliminary NO GROWTH IN 2 WEEKS Resulted 09/19/17 15:15 Wound Abdomen Fungal Smear - Final NO FUNGAL ELEMENTS SEEN. Resulted 09/19/17 15:15 Wound Abdomen Fungal Culture Pending Resulted Abdomen: Non-distended, Post-op tenderness Narrative Exam Steri strips clean and intact A/P Problem List: (1) Bilateral flank pain ICD Codes: R10.9 - Unspecified abdominal pain Status: Acute (2) Chronic pain disorder ICD Codes: G89.4 - Chronic pain syndrome Status: Acute (3) UTI (urinary tract infection) ICD Codes: N39.0 - Urinary tract infection, site not specified Status: Acute (4) Blurred vision ICD Codes: H53.8 - Other visual disturbances Status: Acute (5) Leukocytosis ICD Codes: D72.829 - Elevated white blood cell count, unspecified Status: Acute (6) Anxiety about health ICD Codes: F41.8 - Other specified anxiety disorders (7) Left flank pain ICD Codes: R10.9 - Unspecified abdominal pain Status: Acute (8) Chronic headache ICD Codes: R51 - Headache Status: Acute (9) Post-op pain ICD Codes: G89.18 - Other acute postprocedural pain Status: Acute (10) Intractable pain ICD Codes: R52 - Pain, unspecified Status: Acute (11) Generalized anxiety disorder ICD Codes: F41.1 - Generalized anxiety disorder (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 Will sign off; please reconsult me if needed. No need for follow up. Damien Morrison MD September 20, 2017 18:02
[2017-09-20] MEDS: REMOVE OLD PATCH T-DERMAL SCH (21:00)
[2017-09-21] MEDS: 1/2 NS + KCL 20 MEQ INJ 1,000 ML IV SCH ×2 (00:54→17:19)
[2017-09-21 04:00] VITALS: BP 110/66; PULSE 91; RESP 19; TEMP 98.5; O2SAT 96
[2017-09-21] MEDS: PCA - TOTAL MG DILAUDID DELIVERED PER SHIFT OTHER SCH ×2 (06:00→18:25)
[2017-09-21 08:08] VITALS: BP 100/65; PULSE 85; RESP 16; TEMP 99.6; O2SAT 99
[2017-09-21 08:13] VITALS: BP 144/74; PULSE 85; RESP 16; TEMP 99.6; O2SAT 93
[2017-09-21] MEDS: FLUoxetine HCL 20 MG CAP PO SCH (08:40)
[2017-09-21] MEDS: TOPIRAMATE 200 MG TAB PO SCH ×2 (08:40→21:19)
[2017-09-21] MEDS: POLYETHYLENE GLYCOL 17 GM PKG PO SCH (08:41)
[2017-09-21] MEDS: DOCUSATE SODIUM 50 MG/SENNA 8.6 MG TAB PO SCH ×2 (08:41→21:19)
[2017-09-21] MEDS: LIDOCAINE HCL 5% PATCH T-DERMAL SCH (08:51)
[2017-09-21 12:43] VITALS: BP 98/62; PULSE 89; RESP 18; TEMP 98.8; O2SAT 97
--- NOTE | 2017-09-21 13:21 | HHI.NSPN ---
History Chief Complaint: Abdominal pain Interval History 09/08: The patient is awake in bed on her cellphone. She continues to have right -sided abdominal wall pain. She did have a slight headache and dizziness earlier. There is no change in her motor strength. 09/09: This morning the patient is awake and looking at her cellphone. She states that the right side of her abdomen is "so-so." She does state that the patch has helped some. She says her headaches have been from her using her head to turn. Her exam is essentially the same. She does complain that she was sitting on the toilet for over an hour yesterday because no one answered the call light and her family eventually had to call the front counter attendant for help. 09/10: When seen this afternoon the patient appears to be asleep. She did turn her head toward this practitioner's voice when greeted. She states that she is doing "So-so" and her pain is "so-so." She does have a headache still. Upon examination she is only tender at the epigastric surgical incision. Upon examination her motor strength varies with repeat testing. Patient being transitioned to oral pain medication and is tolerating oral hydromorphone and not requested any intravenous hydromorphone since this morning. She also has not reported any nausea. 09/11: Patient complains of increasing nausea overnight. Also increasing headache at the skull base. When I first asked about the headache and asked her if it is any different than her typical chronic headache, she states that it is the same as she has had for a long time, even prior to the shunt surgery. However when she inquires regarding specifics of a shunt type headache, described by the undersigned is a pressure type headache at the skull base, she reiterates that she does indeed have that type of headache and it is present in the past 2 or 3 days, although not present initially postoperative. Complains of persistent nausea. She states that it seems to come on when she eats fried food or certain other food. She now seems uncertain whether it is still related to the oral Dilaudid. She states her pain is again severe of the subcostal region. 09/12: Today the patient states that her headache is much better and her vision is better. She complains of persistent severe upper abdominal-right lateral flank pain along the shunt tract. There is mostly mild to moderate tenderness along the shunt tract. Abdomen remains soft. 09/13: Patient reports continued abdominal pain along the track of the shunt. She reports that her headaches and vision are improved 09/14: Patient reports continued abdominal pain along the track of the shunt. She reports that her headaches and vision are improved Today the patient got out of bed and fell to the ground because of a sharp pain in her abdomen. The pain was in the right lower quadrant below the incision. The patient did not hit her head and did not sustain any other injuries 09/15: The patient has her eyes covered with her left hand, she has the right hand splinting the abdomen and her knees are pulled up. She complains that her abdomen started to get worse on Friday and has continued to worsen. She says she now has to splint her abdomen and have her knees drawn up in order to help reduce the pain. She does have a headache as well. The abdomen is soft and appears minimally tender upon examination. 09/16: Today the patient states that her headache is much better and her vision is better. She complains of persistent severe upper abdominal-right lateral flank pain along the shunt tract. There is mostly mild to moderate tenderness along the shunt tract. Abdomen remains soft. 09/17: This morning the patient is awake in bed and Physical Therapy is at the bedside getting ready to ambulate with her. She states that she has her "moments " when she feels good. She reports she did have a dull headache earlier that is better. Her abdominal pain is also better today. Upon examination there is minimal tenderness to palpation. 09/18: Neuropsychology spoke with this practitioner prior to the patient being seen and felt that she would benefit from being placed on fluoxetine which she has been on previously. When seen this morning the patient is tapping away at her cellphone and appeared fairly comfortable. She did say she was doing okay but having abdominal pain. There was no change in her physical exam. 09/19: The patient went for a laparoscopic revision of her lumboperitoneal shunt. Post-operatively the patient returned to the med/surg floor. 09/20: When seen this afternoon the patient is awake in bed and talking with her Nurse. She does say she has pain at the surgical incisions but it is better than yesterday. Upon examination the patient does do some guarding of the abdomen and the abdominal wall is moderately tender to palpation. She does limited participation for testing of her motor strength which appears normal. 09/21: This afternoon the patient is awake and laying on her right side. She continues to have the abdominal pain diffusely, more so on the right. She does say the pain is improving. She did have a headache earlier. She complains of lesions to the left upper chest wall and left anterior chest/shoulder pain. Her abdomen is diffusely tender to palpation as is the lumbar surgical site. All sites without any sign of infection. There is no change in her sensorimotor exam. Exam Results 09/19/17 09/19/17 09/20/17 09/20/17 09/21/17 09/21/17 06:00 18:00 06:00 18:00 06:00 18:00 Intake Total 1800 ml 1820 ml 240 ml Output Total 50 ml Balance 1800 ml 1770 ml 240 ml Intake Oral 1800 ml 120 ml 240 ml Other 1700 ml Estimated Blood Loss 50 ml # Voids 5 3 # Bowel Movements 0 Vital Signs Date Time Temp Pulse Resp B/P (MAP) Pulse Ox O2 Delivery O2 Flow Rate FiO2 09/21/17 12:43 98.8 89 18 98/62 (74) 97 09/21/17 08:13 99.6 85 16 144/74 (97) 93 09/21/17 06:00 19 09/21/17 04:00 98.5 91 19 110/66 (81) 96 09/20/17 21:20 19 09/20/17 20:00 98.0 79 18 127/69 (88) 95 09/20/17 19:23 16 09/20/17 16:14 98.0 83 18 134/60 (84) 97 09/20/17 15:33 14 09/20/17 15:21 15 09/20/17 11:56 98.5 76 18 110/58 (75) 97 09/20/17 08:44 16 09/20/17 08:24 97.8 72 18 112/56 (74) 97 09/20/17 06:51 18 09/20/17 04:01 97.0 68 18 110/55 (73) 96 09/20/17 03:01 18 09/20/17 02:11 18 09/20/17 00:40 97.6 56 17 105/60 (75) 96 09/20/17 00:33 98.2 78 18 125/64 (84) 94 09/20/17 00:09 18 09/19/17 20:00 98.2 94 18 127/77 (94) 94 09/19/17 18:46 14 09/19/17 17:00 98.1 102 16 124/62 (82) 99 Room Air 09/19/17 16:30 98 16 112/64 (80) 98 Room Air 09/19/17 16:15 118 16 112/65 (81) 98 Room Air 09/19/17 16:00 94 16 113/66 (82) 100 Room Air 09/19/17 15:51 97.3 104 16 134/83 (100) 100 Room Air 09/19/17 06:24 18 09/19/17 06:00 98.9 69 16 101/60 (74) 98 09/19/17 04:55 18 09/19/17 00:45 98.8 62 16 105/59 (74) 98 09/18/17 21:37 18 09/18/17 16:00 98.5 56 18 103/59 (74) 100 Physical Examination GENERAL: Awake & alert in bed laying on her right side w/her knees bent. Her affect is fairly normal. She appears comfortable and is not in any distress. SKIN: Laparoscopic abdominal wall surgical incisions w/steri-strips intact, epigastric & right lateral abdominal wall surgical incisions well healed, lumbar surgical incision w/intact Optifoam dressing, all sites w/o any drainage , erythema or streaking. Upper left chest wall w/scattered rash, no erythema noted. HEENT: Normocephalic, atraumatic. GASTROINTESTINAL: Abdomen soft, moderately TTP. Laparoscopic surgical wounds TTP , right lateral abdominal wall surgical incision TTP, epigastric region surgical incision exquisitely TTP. She does reach out and tries to guard as her abdomen is evaluated. MUSCULOSKELETAL: HOUSE spontaneously & purposefully. Lumbar spine TTP at surgical incision. NEUROLOGICAL: AAOx3. Speech clear & appropriate. Follows commands without difficulty. Sensation appears intact to light touch to the lower extremities. Limited participation due to abdominal pain w/testing but appears to be normal. Lab, Micro, Other Results Laboratory Tests Test 09/18/17 20:16 White Blood Count 9.1 TH/MM3 Red Blood Count 4.33 MIL/MM3 Hemoglobin 11.5 GM/DL Hematocrit 35.5 % Mean Corpuscular Volume 82.0 FL Mean Corpuscular Hemoglobin 26.6 PG Mean Corpuscular Hemoglobin Concent 32.4 % Red Cell Distribution Width 13.6 % Platelet Count 295 TH/MM3 Mean Platelet Volume 8.6 FL Neutrophils (%) (Auto) 60.0 % Lymphocytes (%) (Auto) 30.2 % Monocytes (%) (Auto) 7.1 % Eosinophils (%) (Auto) 2.4 % Basophils (%) (Auto) 0.3 % Neutrophils # (Auto) 5.5 TH/MM3 Lymphocytes # (Auto) 2.8 TH/MM3 Monocytes # (Auto) 0.6 TH/MM3 Eosinophils # (Auto) 0.2 TH/MM3 Basophils # (Auto) 0.0 TH/MM3 CBC Comment DIFF FINAL Differential Comment Prothrombin Time 10.0 SEC Prothromb Time International Ratio 1.0 RATIO Activated Partial Thromboplast Time 26.4 SEC Blood Urea Nitrogen 15 MG/DL Creatinine 0.73 MG/DL Random Glucose 108 MG/DL Calcium Level 8.8 MG/DL Sodium Level 142 MEQ/L Potassium Level 3.6 MEQ/L Chloride Level 111 MEQ/L Carbon Dioxide Level 20.9 MEQ/L Anion Gap 10 MEQ/L Estimat Glomerular Filtration Rate 92 ML/MIN Medical Decision Making Impression and Plan Impression: 1. Idiopathic intracranial hypertension. Patient initially indicated good improvement in headaches and vision for the first couple weeks postoperative. She now indicates some increase in headaches and possibly some worsening vision over the past couple days. Her CT scan of 09/11/2017 does not reveal any significant abnormalities. 2. Postoperative subcostal-flank pain along the subcostal and lateral flank incision sites and shunt tract. This improved quite a bit initially after injection of Exparel during this hospitalization. The pain has waxed and waned over the past week, some days seeming to be relatively well under control, now for the past couple days worse again. Cultures are no growth from an aspiration of the anterior shunt tract earlier last week. Incision remains dry and intact without erythema or edema. 3. Persistent nausea. This appears to be partially related to narcotic medications. She previously seem to have nausea with oral Dilaudid, but this is now only questionable. Today she states that she feels that fried food and other foods may be triggering it. She states she ate some chicken fingers yesterday and she thinks it made her nauseated. 4. Probable opioid dependence. 5. Probable depression The patient is doing well. Improving abdominal & surgical site pain. No change in her sensorimotor exam. Left upper chest rash. Afebrile past 24 hrs. POD #2 () s/p: Laparoscopic revision of a lumboperitoneal shunt (Dr Cerrato & Dr Morrison) Plan: Regular diet. Neuro checks q4h. Vital signs q4h. Mobilise patient w/assistance as needed. Elevate HOB. Hydromorphone FANCY SEWER for pain control. Continue ondansetron for N/V. Fluoxetine 20 mg QD. Chandrakant Yeung September 21, 2017 13:21
[2017-09-21] MEDS: HYDROmorphone HCL PCA 6 MG/30 ML IV SCH ×2 (17:15→21:17)
[2017-09-21 20:00] VITALS: BP 94/51; PULSE 92; RESP 18; TEMP 99.3; O2SAT 98
[2017-09-21] MEDS: REMOVE OLD PATCH T-DERMAL SCH (21:00)
[2017-09-22] VITALS (7 sets, daily range): BP systolic 87–143; BP diastolic 50–80; PULSE 71–92; RESP 16–18; TEMP 97.2–99.1; O2SAT 95–99
[2017-09-22] MEDS: HYDROmorphone HCL PCA 6 MG/30 ML IV SCH ×5 (04:57→23:27)
[2017-09-22] MEDS: PCA - TOTAL MG DILAUDID DELIVERED PER SHIFT OTHER SCH ×3 (06:00→22:00)
[2017-09-22] MEDS: ONDANSETRON HCL 4 MG/2 ML VIAL IV PUSH PRN ×2 (08:11→21:18)
[2017-09-22] MEDS: FLUoxetine HCL 20 MG CAP PO SCH (08:15)
[2017-09-22] MEDS: DOCUSATE SODIUM 50 MG/SENNA 8.6 MG TAB PO SCH ×2 (08:15→21:11)
[2017-09-22] MEDS: TOPIRAMATE 200 MG TAB PO SCH ×2 (08:15→21:11)
[2017-09-22] MEDS: POLYETHYLENE GLYCOL 17 GM PKG PO SCH (08:15)
[2017-09-22] MEDS: LIDOCAINE HCL 5% PATCH T-DERMAL SCH (08:17)
--- NOTE | 2017-09-22 11:27 | HHI.NSPN ---
History Chief Complaint: Abdominal pain Interval History 09/08: The patient is awake in bed on her cellphone. She continues to have right -sided abdominal wall pain. She did have a slight headache and dizziness earlier. There is no change in her motor strength. 09/09: This morning the patient is awake and looking at her cellphone. She states that the right side of her abdomen is "so-so." She does state that the patch has helped some. She says her headaches have been from her using her head to turn. Her exam is essentially the same. She does complain that she was sitting on the toilet for over an hour yesterday because no one answered the call light and her family eventually had to call the front end technician for help. 09/10: When seen this afternoon the patient appears to be asleep. She did turn her head toward this practitioner's voice when greeted. She states that she is doing "So-so" and her pain is "so-so." She does have a headache still. Upon examination she is only tender at the epigastric surgical incision. Upon examination her motor strength varies with repeat testing. Patient being transitioned to oral pain medication and is tolerating oral hydromorphone and not requested any intravenous hydromorphone since this morning. She also has not reported any nausea. 09/11: Patient complains of increasing nausea overnight. Also increasing headache at the skull base. When I first asked about the headache and asked her if it is any different than her typical chronic headache, she states that it is the same as she has had for a long time, even prior to the shunt surgery. However when she inquires regarding specifics of a shunt type headache, described by the undersigned is a pressure type headache at the skull base, she reiterates that she does indeed have that type of headache and it is present in the past 2 or 3 days, although not present initially postoperative. Complains of persistent nausea. She states that it seems to come on when she eats fried food or certain other food. She now seems uncertain whether it is still related to the oral Dilaudid. She states her pain is again severe of the subcostal region. 09/12: Today the patient states that her headache is much better and her vision is better. She complains of persistent severe upper abdominal-right lateral flank pain along the shunt tract. There is mostly mild to moderate tenderness along the shunt tract. Abdomen remains soft. 09/13: Patient reports continued abdominal pain along the track of the shunt. She reports that her headaches and vision are improved 09/14: Patient reports continued abdominal pain along the track of the shunt. She reports that her headaches and vision are improved Today the patient got out of bed and fell to the ground because of a sharp pain in her abdomen. The pain was in the right lower quadrant below the incision. The patient did not hit her head and did not sustain any other injuries 09/15: The patient has her eyes covered with her left hand, she has the right hand splinting the abdomen and her knees are pulled up. She complains that her abdomen started to get worse on Friday and has continued to worsen. She says she now has to splint her abdomen and have her knees drawn up in order to help reduce the pain. She does have a headache as well. The abdomen is soft and appears minimally tender upon examination. 09/16: Today the patient states that her headache is much better and her vision is better. She complains of persistent severe upper abdominal-right lateral flank pain along the shunt tract. There is mostly mild to moderate tenderness along the shunt tract. Abdomen remains soft. 09/17: This morning the patient is awake in bed and Physical Therapy is at the bedside getting ready to ambulate with her. She states that she has her "moments " when she feels good. She reports she did have a dull headache earlier that is better. Her abdominal pain is also better today. Upon examination there is minimal tenderness to palpation. 09/18: Neuropsychology spoke with this practitioner prior to the patient being seen and felt that she would benefit from being placed on fluoxetine which she has been on previously. When seen this morning the patient is tapping away at her cellphone and appeared fairly comfortable. She did say she was doing okay but having abdominal pain. There was no change in her physical exam. 09/19: The patient went for a laparoscopic revision of her lumboperitoneal shunt. Post-operatively the patient returned to the med/surg floor. 09/20: When seen this afternoon the patient is awake in bed and talking with her Nurse. She does say she has pain at the surgical incisions but it is better than yesterday. Upon examination the patient does do some guarding of the abdomen and the abdominal wall is moderately tender to palpation. She does limited participation for testing of her motor strength which appears normal. 09/21: This afternoon the patient is awake and laying on her right side. She continues to have the abdominal pain diffusely, more so on the right. She does say the pain is improving. She did have a headache earlier. She complains of lesions to the left upper chest wall and left anterior chest/shoulder pain. Her abdomen is diffusely tender to palpation as is the lumbar surgical site. All sites without any sign of infection. There is no change in her sensorimotor exam. 09/22: Pt awake awake and alert. Sitting up in chair. States headache better. States she has incisional discomfort. 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 She states she has Asthma and feels some wheezing. Review of Systems General: Negative for: fever, chills, insomnia Respiratory: Negative for: shortness of breath, cough, sputum Cardiovascular: Negative for: chest pain Gastrointestinal: Negative for: nausea, vomitting, diarrhea, constipation Exam Results Vital Signs Date Time Temp Pulse Resp B/P (MAP) Pulse Ox O2 Delivery O2 Flow Rate FiO2 09/22/17 11:17 16 09/22/17 08:00 98.3 78 130/80 (97) 96 09/19/17 17:00 Room Air Intake and Output 09/22/17 09/22/17 09/23/17 08:00 16:00 00:00 Output Total 1000 ml Balance -1000 ml Physical Examination GENERAL: Awake & alert. Sitting up in chair in NAD. SKIN: Laparoscopic abdominal wall surgical incisions w/steri-strips intact, epigastric & right lateral abdominal wall surgical incisions well healed, lumbar surgical incision w/intact Optifoam dressing, all sites w/o any drainage , erythema or streaking. Upper left chest wall w/scattered rash, no erythema noted. HEENT: Normocephalic, atraumatic. GASTROINTESTINAL: Abdomen soft, moderately TTP. Laparoscopic surgical wounds TTP , right lateral abdominal wall surgical incision TTP, epigastric region surgical incision exquisitely TTP. MUSCULOSKELETAL: HOUSE spontaneously & purposefully. Lumbar spine TTP at surgical incision. NEUROLOGICAL: AAOx3. Pupils 3mm bilaterally reactive bilaterally. Speech clear & appropriate. Follows commands without difficulty. Sensation appears intact to light touch to the lower extremities. Lab, Micro, Other Results Last Impressions Head CT 09/11/17 0000 Signed Impressions: Service Date/Time: August 18:14 - CONCLUSION: No acute disease. Wallace Bill MD Therapeutic Steroid Injection 09/03/17 1416 Signed Impressions: Service Date/Time: Sunday, September 03, 2017 13:46 - CONCLUSION: Uncomplicated CT guided long-acting anesthetic injection as above. Josue Vargas MD Needle Aspiration CT 09/03/17 0000 Signed Impressions: Service Date/Time: Sunday, September 03, 2017 13:46 - CONCLUSION: 1. Uncomplicated CT-guided aspiration of inflammatory tissue near the patient's right upper quadrant pump. Josue Vargas MD Chest X-Ray 09/02/178 Signed Impressions: Service Date/Time: Saturday, September 02, 2017 21:24 - CONCLUSION: No acute disease. Wallace Bill MD Medical Decision Making Impression and Plan 1. Idiopathic intracranial hypertension. Patient initially indicated good improvement in headaches and vision for the first couple weeks postoperative. 2. Postoperative subcostal-flank pain along the subcostal and lateral flank incision sites and shunt tract. This improved quite a bit initially after injection of Exparel during this hospitalization. The pain has waxed and waned over the past week, some days seeming to be relatively well under control, now for the past couple days worse again. Cultures are no growth from an aspiration of the anterior shunt tract earlier last week. Incision remains dry and intact without erythema or edema. 3. Persistent nausea. This appears to be partially related to narcotic medications. She previously seem to have nausea with oral Dilaudid, but this is now only questionable. 4. Probable opioid dependence. 5. Probable depression The patient is doing well. Improving abdominal & surgical site pain. No change in her sensorimotor exam. Left upper chest rash. Afebrile past 24 hrs. () s/p: Laparoscopic revision of a lumboperitoneal shunt (Dr Cerrato & Dr Morrison) Plan: Regular diet. Neuro checks q4h. Vital signs q4h. Mobilise patient w/assistance as needed. Elevate HOB. 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 Continue ondansetron for N/V. Fluoxetine 20 mg QD. Albuterol nebulizer treatments Encourage incentive spirometry. Nemesio Dasilva September 22, 2017 11:27 am
[2017-09-22] MEDS: RESP: ALBUTEROL 2.5 MG/3 ML NEB (SCH) NEB (16:00)
[2017-09-22] MEDS: 1/2 NS + KCL 20 MEQ INJ 1,000 ML IV SCH (18:19)
[2017-09-22] MEDS: REMOVE OLD PATCH T-DERMAL SCH (21:00)
[2017-09-23] VITALS: BP 118/61; PULSE 79; RESP 18; TEMP 98.5; O2SAT 96
[2017-09-23] MEDS: RESP: ALBUTEROL 2.5 MG/3 ML NEB (SCH) NEB ×3 (01:04→15:57)
[2017-09-23 04:00] VITALS: BP 151/88; PULSE 77; RESP 18; TEMP 97.7; O2SAT 98
[2017-09-23] MEDS: PCA - TOTAL MG DILAUDID DELIVERED PER SHIFT OTHER SCH ×3 (06:00→20:14)
[2017-09-23] MEDS: HYDROmorphone HCL PCA 6 MG/30 ML IV SCH ×4 (07:04→21:29)
[2017-09-23 08:00] VITALS: BP 124/78; PULSE 76; RESP 16; TEMP 98.7; O2SAT 95
[2017-09-23] MEDS: 1/2 NS + KCL 20 MEQ INJ 1,000 ML IV SCH ×3 (08:15→20:06)
[2017-09-23] MEDS: ONDANSETRON HCL 4 MG/2 ML VIAL IV PUSH PRN (08:17)
[2017-09-23] MEDS: POLYETHYLENE GLYCOL 17 GM PKG PO SCH (08:19)
[2017-09-23] MEDS: FLUoxetine HCL 20 MG CAP PO SCH (08:20)
[2017-09-23] MEDS: TOPIRAMATE 200 MG TAB PO SCH ×2 (08:20→20:07)
[2017-09-23] MEDS: DOCUSATE SODIUM 50 MG/SENNA 8.6 MG TAB PO SCH ×2 (08:33→20:07)
[2017-09-23] MEDS: LIDOCAINE HCL 5% PATCH T-DERMAL SCH (08:44)
--- NOTE | 2017-09-23 11:33 | HHI.NSPN ---
(Chandrakant Yeung) History Chief Complaint: Abdominal pain (Chandrakant Yeung) Interval History 09/08: The patient is awake in bed on her cellphone. She continues to have right -sided abdominal wall pain. She did have a slight headache and dizziness earlier. There is no change in her motor strength. 09/09: This morning the patient is awake and looking at her cellphone. She states that the right side of her abdomen is "so-so." She does state that the patch has helped some. She says her headaches have been from her using her head to turn. Her exam is essentially the same. She does complain that she was sitting on the toilet for over an hour yesterday because no one answered the call light and her family eventually had to call the bowling or skating front desk clerk for help. 09/10: When seen this afternoon the patient appears to be asleep. She did turn her head toward this practitioner's voice when greeted. She states that she is doing "So-so" and her pain is "so-so." She does have a headache still. Upon examination she is only tender at the epigastric surgical incision. Upon examination her motor strength varies with repeat testing. Patient being transitioned to oral pain medication and is tolerating oral hydromorphone and not requested any intravenous hydromorphone since this morning. She also has not reported any nausea. 09/11: Patient complains of increasing nausea overnight. Also increasing headache at the skull base. When I first asked about the headache and asked her if it is any different than her typical chronic headache, she states that it is the same as she has had for a long time, even prior to the shunt surgery. However when she inquires regarding specifics of a shunt type headache, described by the undersigned is a pressure type headache at the skull base, she reiterates that she does indeed have that type of headache and it is present in the past 2 or 3 days, although not present initially postoperative. Complains of persistent nausea. She states that it seems to come on when she eats fried food or certain other food. She now seems uncertain whether it is still related to the oral Dilaudid. She states her pain is again severe of the subcostal region. 09/12: Today the patient states that her headache is much better and her vision is better. She complains of persistent severe upper abdominal-right lateral flank pain along the shunt tract. There is mostly mild to moderate tenderness along the shunt tract. Abdomen remains soft. 09/13: Patient reports continued abdominal pain along the track of the shunt. She reports that her headaches and vision are improved 09/14: Patient reports continued abdominal pain along the track of the shunt. She reports that her headaches and vision are improved Today the patient got out of bed and fell to the ground because of a sharp pain in her abdomen. The pain was in the right lower quadrant below the incision. The patient did not hit her head and did not sustain any other injuries 09/15: The patient has her eyes covered with her left hand, she has the right hand splinting the abdomen and her knees are pulled up. She complains that her abdomen started to get worse on Friday and has continued to worsen. She says she now has to splint her abdomen and have her knees drawn up in order to help reduce the pain. She does have a headache as well. The abdomen is soft and appears minimally tender upon examination. 09/16: Today the patient states that her headache is much better and her vision is better. She complains of persistent severe upper abdominal-right lateral flank pain along the shunt tract. There is mostly mild to moderate tenderness along the shunt tract. Abdomen remains soft. 09/17: This morning the patient is awake in bed and Physical Therapy is at the bedside getting ready to ambulate with her. She states that she has her "moments " when she feels good. She reports she did have a dull headache earlier that is better. Her abdominal pain is also better today. Upon examination there is minimal tenderness to palpation. 09/18: Neuropsychology spoke with this practitioner prior to the patient being seen and felt that she would benefit from being placed on fluoxetine which she has been on previously. When seen this morning the patient is tapping away at her cellphone and appeared fairly comfortable. She did say she was doing okay but having abdominal pain. There was no change in her physical exam. 09/19: The patient went for a laparoscopic revision of her lumboperitoneal shunt. Post-operatively the patient returned to the med/surg floor. 09/20: When seen this afternoon the patient is awake in bed and talking with her Nurse. She does say she has pain at the surgical incisions but it is better than yesterday. Upon examination the patient does do some guarding of the abdomen and the abdominal wall is moderately tender to palpation. She does limited participation for testing of her motor strength which appears normal. 09/21: This afternoon the patient is awake and laying on her right side. She continues to have the abdominal pain diffusely, more so on the right. She does say the pain is improving. She did have a headache earlier. She complains of lesions to the left upper chest wall and left anterior chest/shoulder pain. Her abdomen is diffusely tender to palpation as is the lumbar surgical site. All sites without any sign of infection. There is no change in her sensorimotor exam. 09/22: Pt awake awake and alert. Sitting up in chair. States headache better. States she has incisional discomfort. She is on Dilaudid RANGE FEEDER for pain control. She states she has Asthma and feels some wheezing. This practitioner acts as a scribe for this note. 09/23: The patient is sitting up in the chair and states she is doing "So-so" when asked how she is doing. She complains of having to lay flat all night because she didn't have the call buenrostro within reach. She does say that she was out of bed in the chair for three hours yesterday. She continues to have abdominal pain and says it was "rough." Her nausea is "So-so." She does report having some chest pain earlier. Her headaches are good. She does report having bowel movements. (Chandrakant Yeung) Exam Results 09/21/17 09/21/17 09/22/17 09/22/17 09/23/17 09/23/17 05:59 17:59 05:59 17:59 05:59 17:59 Intake Total 800 ml Output Total 1000 ml Balance -1000 ml 800 ml IV Total 800 ml Output Urine Total 1000 ml # Voids 4 # Bowel Movements 1 Vital Signs Date Time Temp Pulse Resp B/P (MAP) Pulse Ox O2 Delivery O2 Flow Rate FiO2 09/23/17 08:00 98.7 76 16 124/78 (93) 95 09/23/17 07:34 16 09/23/17 07:04 18 09/23/17 04:00 97.7 77 18 151/88 (109) 98 09/23/17 00:00 98.5 79 18 118/61 (80) 96 09/22/17 23:27 18 09/22/17 22:00 18 09/22/17 20:00 98.1 83 18 134/75 (94) 95 09/22/17 19:46 18 09/22/17 19:04 100/73 (82) 09/22/17 16:00 81 18 87/50 (62) 97 92/50 (64) 09/22/17 15:17 12 09/22/17 14:00 16 09/22/17 12:00 98.0 73 18 143/74 (97) 99 09/22/17 11:17 16 09/22/17 08:00 98.3 78 16 130/80 (97) 96 09/22/17 06:00 18 09/22/17 04:57 19 09/22/17 04:00 97.2 71 18 113/70 (84) 95 09/22/17 00:00 99.1 92 18 116/67 (83) 95 09/21/17 21:17 19 09/21/17 20:00 99.3 92 18 94/51 (65) 98 09/21/17 18:25 17 09/21/17 17:15 15 09/21/17 12:43 98.8 89 18 98/62 (74) 97 09/21/17 08:13 99.6 85 16 144/74 (97) 93 09/21/17 06:00 19 09/21/17 04:00 98.5 91 19 110/66 (81) 96 09/20/17 21:20 19 09/20/17 20:00 98.0 79 18 127/69 (88) 95 09/20/17 19:23 16 09/20/17 16:14 98.0 83 18 134/60 (84) 97 09/20/17 15:33 14 09/20/17 15:21 15 09/20/17 11:56 98.5 76 18 110/58 (75) 97 (Chandrakant Yeung) Physical Examination GENERAL: Awake & alert. Sitting up in chair in NAD. SKIN: Left-sided abdominal surgical wound w/intact dressing w/mild erythema but not cellulitis. GASTROINTESTINAL: Abdomen soft, upper quadrants TTP. (Chandrakant Yeung) Lab, Micro, Other Results 09/21/17 09/21/17 09/22/17 09/22/17 09/23/17 09/23/17 05:59 17:59 05:59 17:59 05:59 17:59 Intake Total 800 ml Output Total 1000 ml Balance -1000 ml 800 ml IV Total 800 ml Output Urine Total 1000 ml # Voids 4 # Bowel Movements 1 (Chandrakant Yeung) Medical Decision Making Impression and Plan Impression: 1. Idiopathic intracranial hypertension. Patient initially indicated good improvement in headaches and vision for the first couple weeks postoperative. She now indicates some increase in headaches and possibly some worsening vision over the past couple days. Her CT scan of 09/11/2017 does not reveal any significant abnormalities. 2. Postoperative subcostal-flank pain along the subcostal and lateral flank incision sites and shunt tract. This improved quite a bit initially after injection of Exparel during this hospitalization. The pain has waxed and waned over the past week, some days seeming to be relatively well under control, now for the past couple days worse again. Cultures are no growth from an aspiration of the anterior shunt tract earlier last week. Incision remains dry and intact without erythema or edema. 3. Persistent nausea. This appears to be partially related to narcotic medications. She previously seem to have nausea with oral Dilaudid, but this is now only questionable. Today she states that she feels that fried food and other foods may be triggering it. She states she ate some chicken fingers yesterday and she thinks it made her nauseated. 4. Probable opioid dependence. 5. Probable depression POD #4 () s/p: Laparoscopic revision of a lumboperitoneal shunt (Dr Cerrato & Dr Morrison) Plan: Regular diet. Neuro checks q4h. Vital signs q4h. Mobilise patient w/assistance as needed. Elevate HOB. Continue ondansetron for N/V. Fluoxetine 20 mg QD. CBC & CMP. Will decrease RANGE FEEDER hydromorphone dosing by half with the next RANGE FEEDER vial. Plan to transition to oral pain medication tomorrow with IV hydromorphone for breakthrough. (Chandrakant Yeung) Attending Statement The exam, history, and the medical decision-making described in the above note were completed with the assistance of the mid-level provider. I reviewed and agree with the findings presented. I attest that I had a [id number] encounter with the patient on the same day, and personally performed and documented my assessment and findings in the medical record. Patient states headache is better on 09/23/2017. Still complaining of generalized abdominal discomfort. Mild erythema and edema along the left flank incision site. Advised patient regarding weaning of IV pain medications and RANGE FEEDER. Check CBC and monitor incision. (Mamadou Cerrato MD) Chandrakant Yeung September 23, 2017 11:33 Mamadou Cerrato MD September 24, 2017 11:01
[2017-09-23 11:53] LABS: AUTOMATED NEUTROPHIL # 5.4 TH/MM3 (1.8-7.7); BASOPHIL # 0.1 TH/MM3 (0-0.2); BASOPHIL % 0.8 % (0.0-2.0); EOSINOPHIL # 0.3 TH/MM3 (0-0.4); EOSINOPHIL % 3.2 % (0.0-4.0); HEMOGLOBIN 11.9 GM/DL (11.6-15.3); LYMPH % 30.8 % (9.0-44.0); LYMPHOCYTE # 2.8 TH/MM3 (1.0-4.8); MEAN CORPUSCULAR HEMOGLOBIN 27.1 PG (27.0-34.0); MEAN PLATELET VOLUME 8.6 FL (7.0-11.0); MONOCYTE # 0.5 TH/MM3 (0-0.9); NEUT % 59.2 % (16.0-70.0); PLATELET COUNT 294 TH/MM3 (150-450); RED BLOOD COUNT 4.39 MIL/MM3 (4.00-5.30); RED CELL DISTRIBUTION WIDTH 13.4 % (11.6-17.2); WHITE BLOOD COUNT 9.1 TH/MM3 (4.0-11.0)
[2017-09-23 12:00] VITALS: BP 103/60; PULSE 73; RESP 16; TEMP 98.9; O2SAT 95
--- NOTE | 2017-09-23 12:12 | HHI.PR ---
Neuropsych Emotional Emotional: Mild: Anxious/Fearful, Depressed/Sad Behavior Behavior: Intact: Coping/Acceptance, Cooperative w/ Treatment, Motivation Cognitive Cognitive: Intact: Cognitive, Attention/Concentration, Confused/Orientation, Insight/Awareness, Judgement/Problem-Solving, Memory Psychosocial Psychosocial: Intact: Psychosocial, Family/Other Adjustment, Realistic Expectation, Self-Esteem/Confidence Progress Notes/Response to Tx Contents of Sessions: Adjustment Time with Patient: 30 minutes Premorbid psychological status Premorbid Cognitive, Emotional and Behavioral Status: Stable. The patient has high school and technical years of education and a solid work history prior to this injury. The patient has prior psychiatric difficulties of depression as a child. as described above. Substance abuse history is unremarkable. Behavioral Reactions of Patient and Family/Support System: Tenuous. The patients family is experiencing ongoing issues of adjustment given the nature of the injury, and this aspect of recovery will require ongoing monitoring. Emotional/Behavioral Status of Patient and Family/Support System: Tenuous. Pertinent issues, if appropriate to this patients clinical care, are described in detail above. Maximizing acute care outcome It is recommended that the patient be monitored for improved anxiety and worry as the medical condition evolves. Pharmacological management of her anxiety/ depression may be beneficial, unless medically contraindicated. Specifically, she has had good results with Prozac in the past, and she may benefit from Prozac 20 qD. At this point in the recovery process, the patient does have cognitive capacity as the patient is able to understand a situation and its likely consequences, and she is able to manipulate information rationally. Cognitive capacity will be assessed throughout the recovery process. Anticipated Problems Ongoing areas of concern will include anxiety, somatic focus and depression, which is expected to improve with time and treatment. She will be seen by neuropsychology throughout her stay to facilitate an optimal therapeutic outcome. Treatment Plan This clinician will continue to follow with you throughout the course of this patients acute care treatment, and I will be available to meet with the patient s family/support system to facilitate their understanding and the ongoing care of their family member. The goals of neuropsychological intervention shall be both educational and supportive to the family/support system as is deemed clinically appropriate. Impression This 32 year old woman remains hospitalized for complications related to her shunt placement for idiopathic intracranial hypertension, and who presents with underlying anxiety and somatic preoccupation concerning her condition which is serving to interfere with her treatment. 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 She underwent shunt revision, and she reported that her pain is improving, and that overall she is doing well. She has started Prozac 20 qD, and reports improved mood (much likely placebo but we'll take what we can get). Provided her psychological support and encouragement. I will continue to follow to facilitate an optimal therapeutic outcome. Darian Shin PhD September 23, 2017 12:12 pm
[2017-09-23 12:23] LABS: ALBUMIN 2.7 GM/DL (3.4-5.0); AST (GOT) 12 U/L (15-37); BICARBONATE 24.8 MEQ/L (21.0-32.0); BLOOD UREA NITROGEN 12 MG/DL (7-18); CALCIUM 8.6 MG/DL (8.5-10.1); CHLORIDE 108 MEQ/L (98-107); CREATININE 0.57 MG/DL (0.50-1.00); GLOMERULAR FILTRATION RATE 123 ML/MIN (>89); GLUCOSE,RANDOM 98 MG/DL (74-106); SODIUM (NA) 141 MEQ/L (136-145)
[2017-09-23 12:24] LABS: ALT (GPT) 23 U/L (10-53)
[2017-09-23 12:27] LABS: ALKALINE PHOSPHATASE 80 U/L (45-117); TOTAL BILIRUBIN ADULT 0.2 MG/DL (0.2-1.0); TOTAL PROTEIN 6.8 GM/DL (6.4-8.2)
[2017-09-23 16:00] VITALS: BP 119/67; PULSE 71; RESP 17; TEMP 99; O2SAT 95
[2017-09-23 20:00] VITALS: BP 135/22; PULSE 80; RESP 18; TEMP 98.3; O2SAT 96
[2017-09-23] MEDS: REMOVE OLD PATCH T-DERMAL SCH (20:10)
[2017-09-24] VITALS (8 sets, daily range): BP systolic 113–145; BP diastolic 67–76; PULSE 61–92; RESP 18–20; TEMP 97.6–99.6; O2SAT 92–98
[2017-09-24] MEDS: RESP: ALBUTEROL 2.5 MG/3 ML NEB (SCH) NEB ×3 (00:22→19:02)
[2017-09-24] MEDS: PCA - TOTAL MG DILAUDID DELIVERED PER SHIFT OTHER SCH (06:00)
[2017-09-24] MEDS: DOCUSATE SODIUM 50 MG/SENNA 8.6 MG TAB PO SCH ×2 (08:45→20:28)
[2017-09-24] MEDS: LIDOCAINE HCL 5% PATCH T-DERMAL SCH (08:46)
[2017-09-24] MEDS: POLYETHYLENE GLYCOL 17 GM PKG PO SCH (08:46)
[2017-09-24] MEDS: TOPIRAMATE 200 MG TAB PO SCH ×2 (08:47→20:27)
[2017-09-24] MEDS: FLUoxetine HCL 20 MG CAP PO SCH (08:47)
[2017-09-24] MEDS: ONDANSETRON HCL 4 MG/2 ML VIAL IV PUSH PRN ×3 (08:56→23:45)
--- NOTE | 2017-09-24 11:06 | HHI.NSPN ---
History Chief Complaint: Abdominal pain Interval History Patient is now complaining of nausea again, stating that she cannot take oral medications. Exam Results Vital Signs Date Time Temp Pulse Resp B/P (MAP) Pulse Ox O2 Delivery O2 Flow Rate FiO2 09/24/17 07:58 98.6 79 20 134/67 (89) 98 Intake and Output 09/24/17 09/24/17 09/25/17 08:00 16:00 00:00 Output Total 950 ml Balance -950 ml Physical Examination Awake and relatively alert. Her is in the room with her. Mild to moderate diffuse abdominal tenderness. No abdominal distention. There is stable erythema and mild edema along the left lateral abdominal incision compared to 09/23/2017. Lab, Micro, Other Results Laboratory Tests Test 09/23/17 11:11 White Blood Count 9.1 TH/MM3 Red Blood Count 4.39 MIL/MM3 Hemoglobin 11.9 GM/DL Hematocrit 36.0 % Mean Corpuscular Volume 82.0 FL Mean Corpuscular Hemoglobin 27.1 PG Mean Corpuscular Hemoglobin Concent 33.0 % Red Cell Distribution Width 13.4 % Platelet Count 294 TH/MM3 Mean Platelet Volume 8.6 FL Neutrophils (%) (Auto) 59.2 % Lymphocytes (%) (Auto) 30.8 % Monocytes (%) (Auto) 6.0 % Eosinophils (%) (Auto) 3.2 % Basophils (%) (Auto) 0.8 % Neutrophils # (Auto) 5.4 TH/MM3 Lymphocytes # (Auto) 2.8 TH/MM3 Monocytes # (Auto) 0.5 TH/MM3 Eosinophils # (Auto) 0.3 TH/MM3 Basophils # (Auto) 0.1 TH/MM3 CBC Comment DIFF FINAL Differential Comment Blood Urea Nitrogen 12 MG/DL Creatinine 0.57 MG/DL Random Glucose 98 MG/DL Total Protein 6.8 GM/DL Albumin 2.7 GM/DL Calcium Level 8.6 MG/DL Alkaline Phosphatase 80 U/L Aspartate Amino Transf (AST/SGOT) 12 U/L Alanine Aminotransferase (ALT/SGPT) 23 U/L Total Bilirubin 0.2 MG/DL Sodium Level 141 MEQ/L Potassium Level 3.6 MEQ/L Chloride Level 108 MEQ/L Carbon Dioxide Level 24.8 MEQ/L Anion Gap 8 MEQ/L Estimat Glomerular Filtration Rate 123 ML/MIN Medical Decision Making Impression and Plan Impression: The patient's right subcostal and lateral abdominal-flank pain seemed improved following her second surgery for repositioning of the shunt catheter. She has been very resistant to discontinuing any intravenous pain medications. She did not have any significant nausea yesterday and her headache was improving. Plan: The FRONT END WEB DESIGNER was discontinued this morning, and she is now complaining of severe nausea, stating that she cannot take any oral medications. I again advised her in the presence of her in the room, the we need to continue to wean off of the narcotic medications. She has IV Dilaudid as needed for pain if unable to tolerate the oral medications for now. Continuing Zofran. Continue to monitor the left abdominal wound site for any signs of cellulitis or infection. Neuropsychology is working with the patient. Mamadou Cerrato MD September 24, 2017 11:06
[2017-09-24] MEDS: HYDROmorphone HCL PF 0.5 MG/0.5 ML SYRINGE IV PUSH PRN ×4 (12:23→23:45)
[2017-09-24] MEDS: MAGNESIUM CITRATE SOLN 300 ML BTL PO PRN (19:54)
[2017-09-24] MEDS: REMOVE OLD PATCH T-DERMAL SCH (20:28)
[2017-09-24] MEDS: HYDROmorphone HCL 4 MG TAB PO PRN (21:51)
[2017-09-25] VITALS: BP 126/62; PULSE 66; RESP 18; TEMP 98; O2SAT 98
[2017-09-25] MEDS: RESP: ALBUTEROL 2.5 MG/3 ML NEB (SCH) NEB ×3 (00:38→16:00)
[2017-09-25] MEDS: HYDROmorphone HCL 4 MG TAB PO PRN ×6 (03:18→22:09)
[2017-09-25 04:00] VITALS: BP 131/59; PULSE 72; RESP 18; TEMP 98.3; O2SAT 95
[2017-09-25] MEDS: HYDROmorphone HCL PF 0.5 MG/0.5 ML SYRINGE IV PUSH PRN ×2 (04:27→07:31)
[2017-09-25 08:07] VITALS: BP 106/53; PULSE 68; RESP 20; TEMP 98.2; O2SAT 94
[2017-09-25 09:09] VITALS: O2SAT 97
[2017-09-25] MEDS: DOCUSATE SODIUM 50 MG/SENNA 8.6 MG TAB PO SCH ×2 (09:39→22:09)
[2017-09-25] MEDS: TOPIRAMATE 200 MG TAB PO SCH ×2 (09:39→22:09)
[2017-09-25] MEDS: FLUoxetine HCL 20 MG CAP PO SCH (09:39)
[2017-09-25] MEDS: POLYETHYLENE GLYCOL 17 GM PKG PO SCH (09:39)
[2017-09-25] MEDS: LIDOCAINE HCL 5% PATCH T-DERMAL SCH (09:40)
[2017-09-25 11:12] VITALS: BP 100/56; PULSE 66; RESP 20; TEMP 98.2; O2SAT 91
--- NOTE | 2017-09-25 12:25 | HHI.PR ---
Neuropsych Emotional Emotional: Mild: Anxious/Fearful, Depressed/Sad Behavior Behavior: Intact: Coping/Acceptance, Cooperative w/ Treatment, Motivation, Moderate: Frustration Tolerance/[place] Cognitive Cognitive: Intact: Cognitive, Attention/Concentration, Confused/Orientation, Insight/Awareness, Judgement/Problem-Solving, Memory Psychosocial Psychosocial: Intact: Psychosocial, Family/Other Adjustment, Realistic Expectation, Unable to Asses: Self-Esteem/Confidence Progress Notes/Response to Tx Contents of Sessions: Adjustment Time with Patient: 30 minutes Premorbid psychological status Premorbid Cognitive, Emotional and Behavioral Status: Stable. The patient has high school and technical years of education and a solid work history prior to this injury. The patient has prior psychiatric difficulties of depression as a child. as described above. Substance abuse history is unremarkable. Behavioral Reactions of Patient and Family/Support System: Tenuous. The patients family is experiencing ongoing issues of adjustment given the nature of the injury, and this aspect of recovery will require ongoing monitoring. Emotional/Behavioral Status of Patient and Family/Support System: Tenuous. Pertinent issues, if appropriate to this patients clinical care, are described in detail above. Maximizing acute care outcome It is recommended that the patient be monitored for improved anxiety and worry as the medical condition evolves. Pharmacological management of her anxiety/ depression may be beneficial, unless medically contraindicated. Specifically, she has had good results with Prozac in the past, and she may benefit from Prozac 20 qD. At this point in the recovery process, the patient does have cognitive capacity as the patient is able to understand a situation and its likely consequences, and she is able to manipulate information rationally. Cognitive capacity will be assessed throughout the recovery process. Anticipated Problems Ongoing areas of concern will include anxiety, somatic focus and depression, which is expected to improve with time and treatment. She will be seen by neuropsychology throughout her stay to facilitate an optimal therapeutic outcome. Treatment Plan This clinician will continue to follow with you throughout the course of this patients acute care treatment, and I will be available to meet with the patient s family/support system to facilitate their understanding and the ongoing care of their family member. The goals of neuropsychological intervention shall be both educational and supportive to the family/support system as is deemed clinically appropriate. Impression This 32 year old woman remains hospitalized for complications related to her shunt placement for idiopathic intracranial hypertension, and who presents with underlying anxiety and somatic preoccupation concerning her condition which is serving to interfere with her treatment. 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 The patient has ongoing complaints of pain and nausea. It is noted that she has been reluctant to wean narcotic medications. Discussed with the patient the importance of weaning off narcotic medications in order to facilitate her discharge home, as well as the need to get OOB as tolerated with proper safeguards in place. I provided her ongoing psychological support and encouragement. I will continue to follow. Darian Shin PhD September 25, 2017 12:25 pm
[2017-09-25 16:06] VITALS: BP 99/51; PULSE 63; RESP 20; TEMP 99; O2SAT 97
[2017-09-25] MEDS: ONDANSETRON HCL 4 MG/2 ML VIAL IV PUSH PRN (17:54)
[2017-09-25] MEDS ORDERED: HYDROmorphone HCL PF 0.5 MG/0.5 ML SYRINGE IV PUSH PRN (18:15)
[2017-09-25] MEDS ORDERED: SOD PHOSPHATE/SOD BIPHOSPHATE (ADULT) ENEMA 133ML RECTAL PRN (18:15)
--- NOTE | 2017-09-25 19:50 | HHI.NSPN ---
History Chief Complaint: Abdominal pain Interval History Patient is now complaining of nausea again, stating that she cannot take oral medications. Exam Results Vital Signs Date Time Temp Pulse Resp B/P (MAP) Pulse Ox O2 Delivery O2 Flow Rate FiO2 09/25/17 16:06 99.0 63 20 99/51 (67) 97 09/25/17 09:09 21 Intake and Output 09/25/17 09/25/17 09/25/17 07:59 15:59 23:59 Output Total 600 ml Balance -600 ml Physical Examination Awake and relatively alert. Her is in the room with her. Mild to moderate diffuse abdominal tenderness. No abdominal distention. There is decreasing erythema and mild edema along the left lateral abdominal incision compared to 09/24/2017. Medical Decision Making Impression and Plan Impression: The patient's right subcostal and lateral abdominal-flank pain seemed improved following her second surgery for repositioning of the shunt catheter. She has been very resistant to discontinuing any intravenous pain medications. She complains of persistent nausea. She has had a bowel movement for the past couple of prior days, but complains of sensation of fecal impaction. Plan: The PRODUCTION TECHNOLOGIST was discontinued yesterday, and she is still complaining of severe nausea, stating that she cannot take any oral medications. She has IV Dilaudid as needed for pain if unable to tolerate the oral medications for now. Continuing to wean off of IV medication. Continuing Zofran. Enema for constipation, possible impaction. Discussed with patient and her in the room today. Encouraged to be out of bed. It has been very difficult to mobilize this patient and motivate her to be active. I discussed with them the option of possible short-term nursing home placement, and she seems receptive to this. Continue to monitor the left abdominal wound site for any signs of cellulitis or infection. Neuropsychology is working with the patient. Mamadou Cerrato MD September 25, 2017 19:50
[2017-09-25] MEDS: REMOVE OLD PATCH T-DERMAL SCH (21:00)
[2017-09-26] VITALS: BP 128/78; PULSE 61; RESP 18; TEMP 99.1; O2SAT 96
[2017-09-26] MEDS: HYDROmorphone HCL 4 MG TAB PO PRN ×5 (03:48→22:13)
[2017-09-26 03:50] VITALS: BP 127/69; PULSE 61; RESP 19; TEMP 98.6; O2SAT 98
[2017-09-26 08:06] VITALS: BP 111/66; PULSE 56; RESP 20; TEMP 98.5; O2SAT 94
[2017-09-26] MEDS: POLYETHYLENE GLYCOL 17 GM PKG PO SCH (09:01)
[2017-09-26] MEDS: FLUoxetine HCL 20 MG CAP PO SCH (09:01)
[2017-09-26] MEDS: DOCUSATE SODIUM 50 MG/SENNA 8.6 MG TAB PO SCH ×2 (09:01→22:13)
[2017-09-26] MEDS: TOPIRAMATE 200 MG TAB PO SCH ×2 (09:01→22:14)
[2017-09-26] MEDS: LIDOCAINE HCL 5% PATCH T-DERMAL SCH (09:02)
[2017-09-26] MEDS: RESP: ALBUTEROL 2.5 MG/3 ML NEB (SCH) NEB ×2 (09:03)
--- NOTE | 2017-09-26 10:58 | HHI.PR ---
Neuropsych Emotional Emotional: Moderate: Anxious/Fearful, Depressed/Sad Behavior Behavior: Moderate: Cooperative w/ Treatment, Motivation, Frustration Tolerance /[place] Cognitive Cognitive: Intact: Cognitive, Attention/Concentration, Confused/Orientation, Insight/Awareness, Judgement/Problem-Solving, Memory Psychosocial Psychosocial: Moderate: Psychosocial, Family/Other Adjustment, Realistic Expectation, Self-Esteem/Confidence Progress Notes/Response to Tx Contents of Sessions: Adjustment Time with Patient: 30 minutes Premorbid psychological status Premorbid Cognitive, Emotional and Behavioral Status: Stable. The patient has high school and technical years of education and a solid work history prior to this injury. The patient has prior psychiatric difficulties of depression as a child. as described above. Substance abuse history is unremarkable. Behavioral Reactions of Patient and Family/Support System: Tenuous. The patients family is experiencing ongoing issues of adjustment given the nature of the injury, and this aspect of recovery will require ongoing monitoring. Emotional/Behavioral Status of Patient and Family/Support System: Tenuous. Pertinent issues, if appropriate to this patients clinical care, are described in detail above. Maximizing acute care outcome It is recommended that the patient be monitored for improved anxiety and worry as the medical condition evolves. Pharmacological management of her anxiety/ depression may be beneficial, unless medically contraindicated. Specifically, she has had good results with Prozac in the past, and she may benefit from Prozac 20 qD. At this point in the recovery process, the patient does have cognitive capacity as the patient is able to understand a situation and its likely consequences, and she is able to manipulate information rationally. Cognitive capacity will be assessed throughout the recovery process. Anticipated Problems Ongoing areas of concern will include anxiety, somatic focus and depression, which is expected to improve with time and treatment. She will be seen by neuropsychology throughout her stay to facilitate an optimal therapeutic outcome. Treatment Plan This clinician will continue to follow with you throughout the course of this patients acute care treatment, and I will be available to meet with the patient s family/support system to facilitate their understanding and the ongoing care of their family member. The goals of neuropsychological intervention shall be both educational and supportive to the family/support system as is deemed clinically appropriate. Impression This 32 year old woman remains hospitalized for complications related to her shunt placement for idiopathic intracranial hypertension, and who presents with underlying anxiety and somatic preoccupation concerning her condition which is serving to interfere with her treatment. 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 Discussion of patient care with Dr. Cerrato. Patient seen. She reported that she is having nausea, and that she is restricted from getting OOB, which turns out is incorrect and she is encouraged to ambulate freely, which is what I encouraged her to do today. I discussed with her that transition to SNF would be an excellent opportunity for her to achieve an optimal therapeutic outcome, and she appeared interested. She denies depression or anxiety, yet appears angry, externalizing blame and taking little responsibility for her current situation. I provided her psychological support and encouragement. I will continue to follow. Darian Shin PhD Sep 26, 2017 10:58 am
[2017-09-26 11:21] VITALS: BP 131/69; PULSE 58; RESP 20; TEMP 98.3; O2SAT 95
[2017-09-26] MEDS: ONDANSETRON HCL 4 MG/2 ML VIAL IV PUSH PRN (12:19)
[2017-09-26 16:00] VITALS: BP 104/57; PULSE 74; RESP 20; TEMP 98.8; O2SAT 97
[2017-09-26 20:00] VITALS: BP 137/71; PULSE 67; RESP 18; TEMP 98.5; O2SAT 97
[2017-09-26] MEDS: REMOVE OLD PATCH T-DERMAL SCH (21:00)
--- NOTE | 2017-09-26 23:03 | HHI.NSPN ---
History Chief Complaint: Abdominal pain Interval History No complaint of headache. States vision seems to be improving States her abdomen is painful "all over". She states that she was constipated in the past day and was straining hard to have a bowel movement and now her abdomen hurts. She is not complaining of quite as much nausea today. Exam Results Vital Signs Date Time Temp Pulse Resp B/P (MAP) Pulse Ox O2 Delivery O2 Flow Rate FiO2 09/26/17 20:00 98.5 67 18 137/71 (93) 97 09/25/17 09:09 21 Intake and Output 09/26/17 09/26/17 09/27/17 08:00 16:00 00:00 Intake Total 1200 ml Balance 1200 ml Physical Examination Awake and relatively alert. Lumbar incision is dry and intact. Mild to moderate diffuse abdominal tenderness. No abdominal distention. There is continued decreasing erythema and mild edema along the left lateral abdominal incision compared to 09/25/2017 Medical Decision Making Impression and Plan Impression: The patient's right subcostal and lateral abdominal-flank pain seemed improved following her second surgery for repositioning of the shunt catheter. She continues to be resistant to discontinuing any intravenous pain medications. IV Dilaudid has been decreased to 0.25 mg. She is now off of oral morphine. She complains of persistent nausea. She states that her abdomen feels better after large bowel movement this morning. Plan: Discussed with neuropsychology today. Case management notes reviewed. There is mention that the patient indicated she is being evicted from her home. Continuing Zofran. Advised patient that if she is not able to mobilize out of bed adequately and be discharged safely home, that fdc will be considered early next week. Encouraged to be out of bed. It has been very difficult to mobilize this patient and motivate her to be active. She does state that she walked down the [place] today. Continue to monitor the left abdominal wound site for any signs of cellulitis or infection. Neuropsychology is working with the patient. Mamadou Cerrato MD Sep 26, 2017 23:03
[2017-09-27] VITALS: BP 112/69; PULSE 69; RESP 18; TEMP 98; O2SAT 97
[2017-09-27 04:00] VITALS: BP 131/68; PULSE 65; RESP 18; TEMP 98.6; O2SAT 95
[2017-09-27] MEDS: HYDROmorphone HCL 4 MG TAB PO PRN ×5 (06:10→20:44)
[2017-09-27] MEDS: DOCUSATE SODIUM 50 MG/SENNA 8.6 MG TAB PO SCH ×2 (07:51→20:44)
[2017-09-27] MEDS: POLYETHYLENE GLYCOL 17 GM PKG PO SCH (07:51)
[2017-09-27] MEDS: FLUoxetine HCL 20 MG CAP PO SCH (07:51)
[2017-09-27] MEDS: TOPIRAMATE 200 MG TAB PO SCH ×2 (07:51→20:44)
[2017-09-27] MEDS: LIDOCAINE HCL 5% PATCH T-DERMAL SCH (07:53)
[2017-09-27 08:00] VITALS: BP 108/81; PULSE 64; RESP 17; TEMP 98.3; O2SAT 97
[2017-09-27 12:00] VITALS: BP 100/61; PULSE 67; RESP 17; TEMP 99; O2SAT 96
--- NOTE | 2017-09-27 12:02 | HHI.NSPN ---
History Interval History Patient continues to complain of abdominal pain. Reports level has increased this morning. Awaiting arrangements to go to rehab Exam Results Vital Signs Date Time Temp Pulse Resp B/P (MAP) Pulse Ox O2 Delivery O2 Flow Rate FiO2 09/27/17 08:00 98.3 64 17 108/81 (90) 97 09/25/17 09:09 21 Physical Examination Alert and awake. Smiling Remains in bed. Moves all extremities. Wound is clean Medical Decision Making Impression and Plan Patient continues to complain of abdominal pain. Unclear as to cause Recommend continued positive attitude and encouragement David Cedeno MD Sep 27, 2017 12:01
[2017-09-27 16:00] VITALS: BP 111/62; PULSE 70; RESP 17; TEMP 98.9; O2SAT 97
[2017-09-27] MEDS: MECLIZINE HCL 25 MG TAB PO PRN (16:03)
[2017-09-27] MEDS: ONDANSETRON HCL 4 MG/2 ML VIAL IV PUSH PRN (20:44)
[2017-09-27 21:00] VITALS: BP 110/59; PULSE 80; RESP 16; TEMP 98.7; O2SAT 95
[2017-09-27] MEDS: REMOVE OLD PATCH T-DERMAL SCH (21:00)
[2017-09-28] MEDS: HYDROmorphone HCL 4 MG TAB PO PRN ×6 (02:12→22:28)
[2017-09-28 02:15] VITALS: BP 100/51; PULSE 71; RESP 16; TEMP 98; O2SAT 94
[2017-09-28 08:00] VITALS: BP 98/57; PULSE 64; RESP 16; TEMP 98.4; O2SAT 98
[2017-09-28] MEDS: LIDOCAINE HCL 5% PATCH T-DERMAL SCH (09:00)
[2017-09-28] MEDS: FLUoxetine HCL 20 MG CAP PO SCH (09:20)
[2017-09-28] MEDS: POLYETHYLENE GLYCOL 17 GM PKG PO SCH (09:21)
[2017-09-28] MEDS: DOCUSATE SODIUM 50 MG/SENNA 8.6 MG TAB PO SCH ×2 (09:21→22:27)
[2017-09-28] MEDS: TOPIRAMATE 200 MG TAB PO SCH (09:21)
[2017-09-28] MEDS: ONDANSETRON HCL 4 MG/2 ML VIAL IV PUSH PRN (09:48)
[2017-09-28 11:55] VITALS: BP 101/62; PULSE 70; RESP 16; TEMP 98.8; O2SAT 97
[2017-09-28 15:30] VITALS: BP 112/68; PULSE 69; RESP 18; TEMP 98.1; O2SAT 99
--- NOTE | 2017-09-28 17:12 | HHI.NSPN ---
History Interval History Patient reports doing well today. Abdominal pain controlled Exam Results Vital Signs Date Time Temp Pulse Resp B/P (MAP) Pulse Ox O2 Delivery O2 Flow Rate FiO2 09/28/17 15:30 98.1 69 18 112/68 (83) 99 09/25/17 09:09 21 Intake and Output 09/28/17 09/28/17 09/29/17 08:00 16:00 00:00 Intake Total 650 ml Balance 650 ml Physical Examination Alert and awake. Smiling Sitting in chair. Moves all extremities. Wound is clean Medical Decision Making Impression and Plan Patient appears improved today. No significant complaints of abdominal pain Discussed with charge nurse. Have asked charge nurse to consider measures to remove isolation and increase patient's mobilization David Cedeno MD Sep 28, 2017 17:12
[2017-09-28 20:30] VITALS: BP 122/63; PULSE 75; RESP 20; TEMP 100.2; O2SAT 100
[2017-09-28] MEDS: TOPIRAMATE 100 MG TAB PO SCH (22:27)
[2017-09-28] MEDS: MECLIZINE HCL 25 MG TAB PO PRN (22:28)
[2017-09-28] MEDS: REMOVE OLD PATCH T-DERMAL SCH (22:39)
[2017-09-29] VITALS: BP 112/60; PULSE 85; RESP 20; TEMP 99.9; O2SAT 97
[2017-09-29] MEDS: HYDROmorphone HCL 4 MG TAB PO PRN ×6 (03:18→21:43)
[2017-09-29 04:00] VITALS: BP 102/57; PULSE 70; RESP 20; TEMP 98.9; O2SAT 95
[2017-09-29 07:48] VITALS: BP 97/61; PULSE 71; RESP 20; TEMP 98.6; O2SAT 94
[2017-09-29] MEDS: TOPIRAMATE 100 MG TAB PO SCH ×2 (07:55→21:42)
[2017-09-29] MEDS: DOCUSATE SODIUM 50 MG/SENNA 8.6 MG TAB PO SCH ×2 (07:55→21:42)
[2017-09-29] MEDS: FLUoxetine HCL 20 MG CAP PO SCH (07:55)
[2017-09-29] MEDS: POLYETHYLENE GLYCOL 17 GM PKG PO SCH (07:56)
[2017-09-29] MEDS: LIDOCAINE HCL 5% PATCH T-DERMAL SCH (08:04)
--- NOTE | 2017-09-29 08:18 | HHI.PR ---
Neuropsych Emotional Emotional: Mild: Depressed/Sad, Moderate: Anxious/Fearful Behavior Behavior: Intact: Impulsive/Agitated, Mild: Cooperative w/ Treatment, Moderate : Motivation Cognitive Cognitive: Intact: Cognitive, Attention/Concentration, Confused/Orientation, Insight/Awareness, Judgement/Problem-Solving, Memory Psychosocial Psychosocial: Moderate: Psychosocial, Family/Other Adjustment, Realistic Expectation, Unable to Asses: Self-Esteem/Confidence Progress Notes/Response to Tx Contents of Sessions: Adjustment Time with Patient: 30 minutes Premorbid psychological status Premorbid Cognitive, Emotional and Behavioral Status: Stable. The patient has high school and technical years of education and a solid work history prior to this injury. The patient has prior psychiatric difficulties of depression as a child. as described above. Substance abuse history is unremarkable. Behavioral Reactions of Patient and Family/Support System: Tenuous. The patients family is experiencing ongoing issues of adjustment given the nature of the injury, and this aspect of recovery will require ongoing monitoring. Emotional/Behavioral Status of Patient and Family/Support System: Tenuous. Pertinent issues, if appropriate to this patients clinical care, are described in detail above. Maximizing acute care outcome It is recommended that the patient be monitored for improved anxiety and worry as the medical condition evolves. Pharmacological management of her anxiety/ depression may be beneficial, unless medically contraindicated. Specifically, she has had good results with Prozac in the past, and she may benefit from Prozac 20 qD. At this point in the recovery process, the patient does have cognitive capacity as the patient is able to understand a situation and its likely consequences, and she is able to manipulate information rationally. Cognitive capacity will be assessed throughout the recovery process. Anticipated Problems Ongoing areas of concern will include anxiety, somatic focus and depression, which is expected to improve with time and treatment. She will be seen by neuropsychology throughout her stay to facilitate an optimal therapeutic outcome. Treatment Plan This clinician will continue to follow with you throughout the course of this patients acute care treatment, and I will be available to meet with the patient s family/support system to facilitate their understanding and the ongoing care of their family member. The goals of neuropsychological intervention shall be both educational and supportive to the family/support system as is deemed clinically appropriate. Impression This 32 year old woman remains hospitalized for complications related to her shunt placement for idiopathic intracranial hypertension, and who presents with underlying anxiety and somatic preoccupation concerning her condition which is serving to interfere with her treatment. 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 She remains difficult to motivate to get out of bed , with pain complaints. Barriers to her getting out of bed are being removed, including determining whether she requires isolation room. Long discussion with her about the need to go to [facility] to assist with increasing her endurance, etc., and she voiced agreement with this plan. No agitation or restlessness. I provided psychological support and encouragement. I will follow. Darian Shin PhD Sep 29, 2017 8:18 am
[2017-09-29 11:11] VITALS: BP 107/60; PULSE 67; RESP 16; TEMP 98.4; O2SAT 97
[2017-09-29 16:28] VITALS: BP 102/62; PULSE 81; RESP 20; TEMP 99.4; O2SAT 95
[2017-09-29 20:15] VITALS: BP 97/56; PULSE 82; RESP 18; TEMP 99.8; O2SAT 96
--- NOTE | 2017-09-29 20:57 | HHI.NSPN ---
History Interval History No complaint of headache. States vision seems to be improving States her abdomen is painful "all over". She states that she was constipated in the past day and was straining hard to have a bowel movement and now her abdomen hurts. She is not complaining of quite as much nausea today. Exam Results Vital Signs Date Time Temp Pulse Resp B/P (MAP) Pulse Ox O2 Delivery O2 Flow Rate FiO2 09/29/17 20:15 99.8 82 18 97/56 (70) 96 09/25/17 09:09 21 Intake and Output 09/29/17 09/29/17 09/30/17 08:00 16:00 00:00 Intake Total 550 ml Balance 550 ml Physical Examination Alert and awake. Smiling Sitting in chair. Moves all extremities. Wound is clean Lab, Micro, Other Results Laboratory Tests Test 09/29/17 17:45 Nasal Screen MRSA (PCR) MRSA NOT DETECTED Medical Decision Making Impression and Plan Impression: The patient's right subcostal and lateral abdominal-flank pain seemed improved following her second surgery for repositioning of the shunt catheter. The pain continues to fluctuate. Intravenous pain medications have been discontinued Plan: Neuropsychology notes reviewed Case management notes reviewed. There is mention that the patient indicated she is being evicted from her home. Continuing Zofran. Continue to encourage out of bed Patient continues with multiple somatic complaints, Mamadou Cerrato MD Sep 29, 2017 20:57
[2017-09-29] MEDS: REMOVE OLD PATCH T-DERMAL SCH (21:00)
[2017-09-30 00:19] VITALS: BP 113/64; PULSE 83; RESP 18; TEMP 99.5; O2SAT 97
[2017-09-30] MEDS: HYDROmorphone HCL 4 MG TAB PO PRN ×6 (03:17→21:54)
[2017-09-30 05:23] VITALS: BP 110/61; PULSE 79; RESP 18; TEMP 98.4; O2SAT 94
[2017-09-30] MEDS: FLUoxetine HCL 20 MG CAP PO SCH (07:55)
[2017-09-30] MEDS: DOCUSATE SODIUM 50 MG/SENNA 8.6 MG TAB PO SCH ×2 (07:55→21:53)
[2017-09-30] MEDS: POLYETHYLENE GLYCOL 17 GM PKG PO SCH (07:55)
[2017-09-30] MEDS: TOPIRAMATE 100 MG TAB PO SCH ×2 (07:56→21:53)
[2017-09-30 08:00] VITALS: BP 114/71; PULSE 86; RESP 19; TEMP 98.8; O2SAT 91
[2017-09-30] MEDS: LIDOCAINE HCL 5% PATCH T-DERMAL SCH (08:00)
--- NOTE | 2017-09-30 11:41 | HHI.PR ---
Neuropsych Emotional Emotional: Mild: Anxious/Fearful, Moderate: Hostile/Resentful, Irritable/Angry/ [place] Behavior Behavior: Moderate: Cooperative w/ Treatment, Motivation Cognitive Cognitive: Intact: Cognitive, Attention/Concentration, Confused/Orientation, Insight/Awareness, Judgement/Problem-Solving, Memory Progress Notes/Response to Tx Contents of Sessions: Adjustment Time with Patient: 30 minutes Premorbid psychological status Premorbid Cognitive, Emotional and Behavioral Status: Stable. The patient has high school and technical years of education and a solid work history prior to this injury. The patient has prior psychiatric difficulties of depression as a child. as described above. Substance abuse history is unremarkable. Behavioral Reactions of Patient and Family/Support System: Tenuous. The patients family is experiencing ongoing issues of adjustment given the nature of the injury, and this aspect of recovery will require ongoing monitoring. Emotional/Behavioral Status of Patient and Family/Support System: Tenuous. Pertinent issues, if appropriate to this patients clinical care, are described in detail above. Maximizing acute care outcome It is recommended that the patient be monitored for improved anxiety and worry as the medical condition evolves. Pharmacological management of her anxiety/ depression may be beneficial, unless medically contraindicated. Specifically, she has had good results with Prozac in the past, and she may benefit from Prozac 20 qD. At this point in the recovery process, the patient does have cognitive capacity as the patient is able to understand a situation and its likely consequences, and she is able to manipulate information rationally. Cognitive capacity will be assessed throughout the recovery process. Anticipated Problems Ongoing areas of concern will include anxiety, somatic focus and depression, which is expected to improve with time and treatment. She will be seen by neuropsychology throughout her stay to facilitate an optimal therapeutic outcome. Treatment Plan This clinician will continue to follow with you throughout the course of this patients acute care treatment, and I will be available to meet with the patient s family/support system to facilitate their understanding and the ongoing care of their family member. The goals of neuropsychological intervention shall be both educational and supportive to the family/support system as is deemed clinically appropriate. Impression This 32 year old woman remains hospitalized for complications related to her shunt placement for idiopathic intracranial hypertension, and who presents with underlying anxiety and somatic preoccupation concerning her condition which is serving to interfere with her treatment. 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 She is off isolation protocol now. With RN at bedside, the patient agreed to walk around the unit in order to facilitate her strength, and endurance, in order to optimize her therapeutic outcome. She was provided support and encouragement. I will follow. Darian Shin PhD Sep 30, 2017 11:41 am
[2017-09-30 12:34] VITALS: BP 106/60; PULSE 86; RESP 20; TEMP 100; O2SAT 97
[2017-09-30 16:10] VITALS: BP 101/58; PULSE 80; RESP 20; TEMP 98.9; O2SAT 96
[2017-09-30] MEDS ORDERED: FLUCONAZOLE 100 MG TAB PO ONE (16:15)
[2017-09-30 20:13] VITALS: BP 114/55; PULSE 93; RESP 20; TEMP 98.9; O2SAT 96
[2017-09-30] MEDS: REMOVE OLD PATCH T-DERMAL SCH (21:00)
[2017-10-01 01:28] VITALS: BP 138/76; PULSE 83; RESP 20; TEMP 98; O2SAT 97
[2017-10-01] MEDS: HYDROmorphone HCL 4 MG TAB PO PRN ×6 (01:36→23:09)
[2017-10-01 04:32] VITALS: BP 114/59; PULSE 72; RESP 20; TEMP 99.1; O2SAT 96
[2017-10-01 08:00] VITALS: BP 114/69; PULSE 81; RESP 17; TEMP 98.5; O2SAT 97
[2017-10-01] MEDS: TOPIRAMATE 100 MG TAB PO SCH ×2 (09:38→19:59)
[2017-10-01] MEDS: FLUoxetine HCL 20 MG CAP PO SCH (09:39)
[2017-10-01] MEDS: POLYETHYLENE GLYCOL 17 GM PKG PO SCH (09:39)
[2017-10-01] MEDS: DOCUSATE SODIUM 50 MG/SENNA 8.6 MG TAB PO SCH ×2 (09:39→19:58)
[2017-10-01] MEDS: LIDOCAINE HCL 5% PATCH T-DERMAL SCH (09:39)
[2017-10-01 12:00] VITALS: BP 116/75; PULSE 66; RESP 17; TEMP 98.2; O2SAT 97
--- NOTE | 2017-10-01 15:40 | PD.WCN.NOT ---
Wound Consult Description: Consult for WOUND MANAGEMENT of right subcostal and lumbar recommendations for dressings to keep wounds dry at skin fold sites per Dr Cerrato Communicated with: Patient ALISA Seymour Recommendation: Do not manually remove steri-strips. Keep intact steri-strips dry by leaving open to air or may cover with dry dressing. Cleanse intertriginous areas of the abdomen with soft cloths and mild soap BID and pat dry. Additional Information: Patient seen on [facility] for approximately 1 hour today after she completed ambulating with walker and [employer]. Patient sat on the side of her bed for assessment of back. Bordered gauze dressing was removed from her lower back to reveal intact steri-strips and a suture distally to steri-strips without drainage, without erythema, and an unremarkable periwound. A new bordered gauze dressing was placed for protection/comfort. Patient then laid on her back for inspector automatic typewriter visualization of steri-strips on left lower abdomen, mid abdomen x2, and under right breast. All steri-strips were intact, dry, and noted without active drainage. Steri-strips under right breast area noted with minimal dried sanguinous exudate under steri-strips, there is no active drainage and no erythema noted. Laterally noted from under right breast steri-strips is a looped string that appears to be separate from the surgical incision that was left alone and intact. Cavilon was used to protect the surrounding area of steri -strips underneath right breast and allowed to dry prior to placing a bordered gauze dressing dated today. Patient had moisture without erythema and with no open wounds noted to intertriginous areas of the abdomen that are recommended to be cleansed BID and PRN with soft cloths and mild soap and thoroughly pat dry. Gloria Harris [facility] Oct 01, 2017 15:40
[2017-10-01 16:00] VITALS: BP 103/67; PULSE 73; RESP 17; TEMP 98.1; O2SAT 96
--- NOTE | 2017-10-01 18:52 | HHI.NSPN ---
(Chandrakant Yeung) History Chief Complaint: Abdominal pain (Chandrakant Yeung) Interval History 09/15: The patient has her eyes covered with her left hand, she has the right hand splinting the abdomen and her knees are pulled up. She complains that her abdomen started to get worse on Friday and has continued to worsen. She says she now has to splint her abdomen and have her knees drawn up in order to help reduce the pain. She does have a headache as well. The abdomen is soft and appears minimally tender upon examination. 09/16: Today the patient states that her headache is much better and her vision is better. She complains of persistent severe upper abdominal-right lateral flank pain along the shunt tract. There is mostly mild to moderate tenderness along the shunt tract. Abdomen remains soft. 09/17: This morning the patient is awake in bed and Physical Therapy is at the bedside getting ready to ambulate with her. She states that she has her "moments " when she feels good. She reports she did have a dull headache earlier that is better. Her abdominal pain is also better today. Upon examination there is minimal tenderness to palpation. 09/18: Neuropsychology spoke with this practitioner prior to the patient being seen and felt that she would benefit from being placed on fluoxetine which she has been on previously. When seen this morning the patient is tapping away at her cellphone and appeared fairly comfortable. She did say she was doing okay but having abdominal pain. There was no change in her physical exam. 09/19: The patient went for a laparoscopic revision of her lumboperitoneal shunt. Post-operatively the patient returned to the med/surg floor. 09/20: When seen this afternoon the patient is awake in bed and talking with her Nurse. She does say she has pain at the surgical incisions but it is better than yesterday. Upon examination the patient does do some guarding of the abdomen and the abdominal wall is moderately tender to palpation. She does limited participation for testing of her motor strength which appears normal. 09/21: This afternoon the patient is awake and laying on her right side. She continues to have the abdominal pain diffusely, more so on the right. She does say the pain is improving. She did have a headache earlier. She complains of lesions to the left upper chest wall and left anterior chest/shoulder pain. Her abdomen is diffusely tender to palpation as is the lumbar surgical site. All sites without any sign of infection. There is no change in her sensorimotor exam. 09/22: Pt awake awake and alert. Sitting up in chair. States headache better. States she has incisional discomfort. She is on Dilaudid GOLF COURSE RANGER for pain control. She states she has Asthma and feels some wheezing. 09/23: The patient is sitting up in the chair and states she is doing "So-so" when asked how she is doing. She complains of having to lay flat all night because she didn't have the call buenrostro within reach. She does say that she was out of bed in the chair for three hours yesterday. She continues to have abdominal pain and says it was "rough." Her nausea is "So-so." She does report having some chest pain earlier. Her headaches are good. She does report having bowel movements. 09/24: Patient is now complaining of nausea again, stating that she cannot take oral medications. 09/25: Patient is now complaining of nausea again, stating that she cannot take oral medications. 09/26: No complaint of headache. States vision seems to be improving States her abdomen is painful "all over". She states that she was constipated in the past day and was straining hard to have a bowel movement and now her abdomen hurts. She is not complaining of quite as much nausea today. 09/27: Patient continues to complain of abdominal pain. Reports level has increased this morning. Awaiting arrangements to go to rehab 09/28: Patient reports doing well today. Abdominal pain controlled 09/29: No complaint of headache. States vision seems to be improving States her abdomen is painful "all over". She states that she was constipated in the past day and was straining hard to have a bowel movement and now her abdomen hurts. She is not complaining of quite as much nausea today. 10/01: This evening when seen the patient appear mildly uncomfortable and says she is not having a good day today. She does report that she was up and walking earlier today which Nursing had previously reported. She states that her abdomen is sore, especially where the shunt is because a Nurse grabbed it the other day. She says that it has been really sore since then. She does report having a headache earlier and that is why she is drinking a Pepsi. The abdomen is minimally tender on the right side but tender to the left anterolateral surgical site. Her abdomen is soft. Her back is minimally tender. Wound Care evaluated the patient earlier this afternoon. (Chandrakant Yeung) Exam Results 09/30/17 09/30/17 10/01/17 10/01/17 10/02/17 10/02/17 06:00 18:00 06:00 18:00 06:00 18:00 # Voids 2 1 # Bowel Movements 1 Vital Signs Date Time Temp Pulse Resp B/P (MAP) Pulse Ox O2 Delivery O2 Flow Rate FiO2 10/01/17 16:00 98.1 73 17 103/67 (79) 96 10/01/17 12:00 98.2 66 17 116/75 (89) 97 10/01/17 08:00 98.5 81 17 114/69 (84) 97 10/01/17 04:32 99.1 72 20 114/59 (77) 96 10/01/17 01:28 98.0 83 20 138/76 (96) 97 09/30/17 20:13 98.9 93 20 114/55 (74) 96 09/30/17 16:10 98.9 80 20 101/58 (72) 96 09/30/17 12:34 100.0 86 20 106/60 (75) 97 09/30/17 08:00 98.8 86 19 114/71 (85) 91 09/30/17 05:23 98.4 79 18 110/61 (77) 94 09/30/17 00:19 99.5 83 18 113/64 (80) 97 09/29/17 20:15 99.8 82 18 97/56 (70) 96 09/29/17 16:28 99.4 81 20 102/62 (75) 95 09/29/17 11:11 98.4 67 16 107/60 (76) 97 09/29/17 07:48 98.6 71 20 97/61 (73) 94 09/29/17 04:00 98.9 70 20 102/57 (72) 95 09/29/17 00:00 99.9 85 20 112/60 (77) 97 09/28/17 20:30 100.2 75 20 122/63 (82) 100 (Chandrakant Yeung) Physical Examination GENERAL: Awake & alert in bed laying on her back w/her knees bent. Her affect is fairly normal. She appears mildly uncomfortable but is not in any distress. SKIN: Laparoscopic abdominal wall surgical incisions w/steri-strips intact but the left anterolateral wound has mild erythema w/a suture knot protruding through the skin. Right subcostal surgical incision w/dry & intact dressing. Lumbar surgical incision w/intact Optifoam dressing. All sites w/o any drainage , erythema or streaking except as noted above. HEENT: Normocephalic, atraumatic. GASTROINTESTINAL: Abdomen soft, variable TTP from minimal to moderately at the left anterolateral site. MUSCULOSKELETAL: HOUSE spontaneously & purposefully. Lumbar spine minimally TTP at surgical incision. NEUROLOGICAL: AAOx3. Speech clear & appropriate. Follows commands without difficulty. Sensation appears intact to light touch to the lower extremities. Limited participation due to abdominal pain w/testing but appears to be normal. (Chandrakant Yeung) Lab, Micro, Other Results Laboratory Tests Test 09/29/17 17:45 Nasal Screen MRSA (PCR) MRSA NOT DETECTED (Chandrakant Yeung) Medical Decision Making Impression and Plan Impression: 1. Idiopathic intracranial hypertension. Patient initially indicated good improvement in headaches and vision for the first couple weeks postoperative. She now indicates some increase in headaches and possibly some worsening vision over the past couple days. Her CT scan of 09/11/2017 does not reveal any significant abnormalities. 2. Postoperative subcostal-flank pain along the subcostal and lateral flank incision sites and shunt tract. This improved quite a bit initially after injection of Exparel during this hospitalization. The pain has waxed and waned over the past week, some days seeming to be relatively well under control, now for the past couple days worse again. Cultures are no growth from an aspiration of the anterior shunt tract earlier last week. Incision remains dry and intact without erythema or edema. 3. Persistent nausea. This appears to be partially related to narcotic medications. She previously seem to have nausea with oral Dilaudid, but this is now only questionable. Today she states that she feels that fried food and other foods may be triggering it. She states she ate some chicken fingers yesterday and she thinks it made her nauseated. 4. Probable opioid dependence. 5. Probable depression Patient with some persistent abdominal pain that is worse today. Past 24 hrs: 100.0 T max. Physical Therapy feels that the patient is able to be discharged home w/Home Health for continued therapy. Wound Care recommends that patient cleanse skin w/mild soap and water twice daily. : Laparoscopic revision of a lumboperitoneal shunt (Dr Cerrato & Dr Morrison) Plan: Regular diet. Neuro checks q4h. Vital signs q4h. Mobilise patient w/assistance as needed. Continue current pain & nausea medication regimen. Will d/c suture knot. Abx ointment to left side abdominal wall erythema at suture knot. (Chandrakant Yeung) Attending Statement The exam, history, and the medical decision-making described in the above note were completed with the assistance of the mid-level provider. I reviewed and agree with the findings presented. I attest that I had a [id number] encounter with the patient on the same day, and personally performed and documented my assessment and findings in the medical record. Patient with persistent complaints of abdominal discomfort-primary region of discomfort changes day-to-day. Tolerating diet Ambulating better with therapy this week Case discussed extensively with case management yesterday. Continue rehabilitation efforts, weaning narcotic medications (Mamadou Cerrato MD) Chandrakant Yeung Oct 01, 2017 18:52 Mamadou Cerrato MD Oct 01, 2017 19:20
[2017-10-01] MEDS: REMOVE OLD PATCH T-DERMAL SCH (20:02)
[2017-10-01 20:23] VITALS: BP 117/72; PULSE 84; RESP 18; TEMP 98.3; O2SAT 97
[2017-10-01] MEDS: NEOMYCIN/POLYMYXIN/BACITRACIN OINT 15 GM TUBE TOPICAL SCH (23:09)
[2017-10-02] VITALS (7 sets, daily range): BP systolic 102–124; BP diastolic 57–70; PULSE 73–87; RESP 18; TEMP 99–101.1; O2SAT 94–98
[2017-10-02] MEDS: HYDROmorphone HCL 4 MG TAB PO PRN ×7 (03:42→23:32)
[2017-10-02] MEDS: ONDANSETRON HCL 4 MG/2 ML VIAL IV PUSH PRN (07:51)
[2017-10-02] MEDS: POLYETHYLENE GLYCOL 17 GM PKG PO SCH (08:09)
[2017-10-02] MEDS: FLUoxetine HCL 20 MG CAP PO SCH (08:09)
[2017-10-02] MEDS: DOCUSATE SODIUM 50 MG/SENNA 8.6 MG TAB PO SCH ×2 (08:09→20:38)
[2017-10-02] MEDS: TOPIRAMATE 100 MG TAB PO SCH ×2 (08:09→20:37)
--- NOTE | 2017-10-02 08:13 | HHI.PR ---
Neuropsych Emotional Emotional: Mild: Hostile/Resentful, Irritable/Angry/Frustrate, Moderate: Anxious/Fearful, Depressed/Sad Behavior Behavior: Mild: Cooperative w/ Treatment, Moderate: Motivation Cognitive Cognitive: Intact: Cognitive, Attention/Concentration, Confused/Orientation, Insight/Awareness, Judgement/Problem-Solving, Memory Psychosocial Psychosocial: Moderate: Psychosocial, Family/Other Adjustment, Realistic Expectation, Unable to Asses: Self-Esteem/Confidence Progress Notes/Response to Tx Contents of Sessions: Adjustment, Level of Consciousness Time with Patient: 30 minutes Premorbid psychological status Premorbid Cognitive, Emotional and Behavioral Status: Stable. The patient has high school and technical years of education and a solid work history prior to this injury. The patient has prior psychiatric difficulties of depression as a child. as described above. Substance abuse history is unremarkable. Behavioral Reactions of Patient and Family/Support System: Tenuous. The patients family is experiencing ongoing issues of adjustment given the nature of the injury, and this aspect of recovery will require ongoing monitoring. Emotional/Behavioral Status of Patient and Family/Support System: Tenuous. Pertinent issues, if appropriate to this patients clinical care, are described in detail above. Maximizing acute care outcome It is recommended that the patient be monitored for improved anxiety and worry as the medical condition evolves. Pharmacological management of her anxiety/ depression may be beneficial, unless medically contraindicated. Specifically, she has had good results with Prozac in the past, and she may benefit from Prozac 20 qD. At this point in the recovery process, the patient does have cognitive capacity as the patient is able to understand a situation and its likely consequences, and she is able to manipulate information rationally. Cognitive capacity will be assessed throughout the recovery process. Anticipated Problems Ongoing areas of concern will include anxiety, somatic focus and depression, which is expected to improve with time and treatment. She will be seen by neuropsychology throughout her stay to facilitate an optimal therapeutic outcome. Treatment Plan This clinician will continue to follow with you throughout the course of this patients acute care treatment, and I will be available to meet with the patient s family/support system to facilitate their understanding and the ongoing care of their family member. The goals of neuropsychological intervention shall be both educational and supportive to the family/support system as is deemed clinically appropriate. Impression This 32 year old woman remains hospitalized for complications related to her shunt placement for idiopathic intracranial hypertension, and who presents with underlying anxiety and somatic preoccupation concerning her condition which is serving to interfere with her treatment. 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 The patient is getting OOB, ambulating the floor as directed. She is encouraged to do "only so much" such as ambulate only one time around the floor, which is a psychological tactic to encourage her to do more than requested, given that there is an oppositional component to her personality, and this tactic does appear to be working. Recommend to health care providers to "deflect" her preoccupation with gripes about nursing, don't engage more than acknowledgment. Today, I provided her psychological support and encouragement, in addition to personally ambulating her with her RN Alireza around the floor. I will follow. Darian Shin PhD Oct 02, 2017 8:13 am
[2017-10-02] MEDS: LIDOCAINE HCL 5% PATCH T-DERMAL SCH (09:00)
[2017-10-02] MEDS: NEOMYCIN/POLYMYXIN/BACITRACIN OINT 15 GM TUBE TOPICAL SCH (09:00)
[2017-10-02] MEDS ORDERED: DILA4TAB10 PO (14:29)
--- NOTE | 2017-10-02 14:31 | HHI.DCPOC ---
Discharge Care Plan Diagnosis: (1) Migraine (2) Pseudotumor cerebri Your Health Problems Are: Difficulty with ADL Incision/Drains Exercise Tolerance Chronic Pain Goals to Promote Your Health * To prevent worsening of your condition and complications * To maintain your health at the optimal level Directions to Meet Your Goals Take your medications as prescribed Follow your dietary instruction Follow activity as directed Keep your appointments as scheduled Take your immunizations and boosters as scheduled If your symptoms worsen call your PCP, if no PCP go to Urgent Care Center or Emergency Room Smoking is Dangerous to Your Health. Avoid second hand smoke Call the 24-hour hour crisis hotline for domestic abuse at Mamadou Cerrato MD Oct 02, 2017 14:31
--- NOTE | 2017-10-02 14:37 | HHI.DS ---
Discharge Summary Admission Date September 02, 2017 at 22:37 Discharge Date: Oct 03, 2017 Admitting Diagnosis Intractable pain post op (1) Migraine Diagnosis: Secondary ICD Code: G43.909 - Migraine, unspecified, not intractable, without status migrainosus Status: Chronic (2) Pseudotumor cerebri Diagnosis: Principal ICD Code: G93.2 - Benign intracranial hypertension Status: Chronic Procedures 1. Lumboperitoneal shunt placement 2. Lumboperitoneal shunt revision Brief History Ms. Mayberry is a 32-year-old female who previously underwent lumboperitoneal shunt placement 08/12/2017 for treatment of idiopathic intracranial hypertension. She has had significant persistent pain in the right subcostal region at the shunt distal catheter insertion site since surgery. She indicates that the pain seemed a little better a week ago, but over this past weekend significantly increased. She has had no fevers or chills. She does complain of persistent nausea and vomiting, somewhat increased over the weekend , although she has also been taking more hydromorphone, which seemed to cause nausea. She remains on MS Contin 15 mg twice daily. No diarrhea. Intermittent constipation. She is taking laxative at home. The patient has presented back to the emergency room several times since surgery, for various complaints including the right subcostal pain as well as problems with constipation and persistent vomiting. During admission she underwent an additional abdominal CT scan which did not reveal significant abnormalities. She underwent a CT-guided aspiration of the shunt catheter site with negative cultures as well as a CT-guided injection of Exparel which helped for a few days. She then continued to complain of persistent recurrent severe right upper quadrant-subcostal pain. She underwent revision-replacement of the lumboperitoneal shunt catheter to the left side under laparoscopic guidance. Right-sided pain gradually resolved following this procedure. She complained of problems with initial left-sided pain postoperative. She underwent additional physical therapy with progress. IV pain medications gradually wean Neuropsychology evaluation initiated. Pain gradually improved. Patient continued significant somatization-focusing on pain symptoms. At time of discharge incisions healing well, sutures removed, dressings dry and intact Wound care nurse assessment completed-[place] dressings on in folds to keep incision areas dry Ambulating 120-150 feet at the time of discharge. Tolerating diet Complaining of some persistent nausea without emesis. No diarrhea. Occasional constipation. Positive bowel movements. Pain medications weaned down to Dilaudid 2 mg tablets at the time of discharge. Significant Findings Laboratory Tests Test 09/29/17 17:45 Pt Condition on Discharge: Good Discharge Disposition: Discharge Home Discharge Instructions DIET: Follow Instructions for: Weight Management Activities to Avoid: Lifting/Bending, Strenuous Activity Follow up Referrals: Neurosurgery - 10/31/17 with Mamadou Cerrato MD Follow up as scheduled for your 6 week post-operative visit. New Medications: Hydromorphone (Dilaudid) 4 Mg Tab 2 MG PO Q3H PRN for PAIN SCALE 7 TO 10, #120 TAB 0 Refills Continued Medications: Furosemide (Lasix) 40 Mg Tab 40 MG PO BID for Headaches for 30 Days, #60 TAB 0 Refills Meclizine (Meclizine) 25 Mg Tab 25 MG PO TID PRN for VERTIGO for 30 Days, #30 TAB 0 Refills Ondansetron Odt (Zofran Odt) 4 Mg Tab 4 MG SL Q8HR PRN for Nausea/Vomiting for 7 Days, #30 TAB 0 Refills Topiramate (Topamax) 50 Mg Tab 100 MG PO BID for Control Seizures for 30 Days, #120 TAB 0 Refills Walker with Front Wheels (Walker with Front Wheels) 1 Mis Mis EA .XX DIRECTED, #1 0 Refills Discontinued Medications: Acetazolamide ER 12 HR (Diamox Sequels ER 12 HR) 500 Mg Cap 500 MG PO TID for Glaucoma for 30 Days, #60 CAP 0 Refills Morphine ER (Morphine ER) 15 Mg Tab 15 MG PO Q12HR for Pain, #60 TAB 0 Refills Ondansetron Odt (Ondansetron Odt) 4 Mg Tab 4 MG SL Q8HR PRN for Nausea/Vomiting, #15 TAB 0 Refills Mamadou Cerrato MD Oct 02, 2017 14:37
[2017-10-02] MEDS ORDERED: DILA2TAB4 PO (14:38)
--- NOTE | 2017-10-02 14:46 | HHI.NSPN ---
History Chief Complaint: Abdominal pain Interval History No complaint of headache. States vision seems to be improving States her abdomen is painful "all over". She states that she was constipated in the past day and was straining hard to have a bowel movement and now her abdomen hurts again. She is not complaining of much nausea today. Physical therapy indicates that she has been ambulating 120-150 feet. Exam Results Vital Signs Date Time Temp Pulse Resp B/P (MAP) Pulse Ox O2 Delivery O2 Flow Rate FiO2 10/02/17 12:00 99.1 87 18 107/63 (78) 98 Physical Examination GENERAL: Sitting up in chair SKIN: Incision sites examined. All are dry and intact. Suture knots removed at the right subcostal incision. HEENT: Normocephalic, atraumatic. GASTROINTESTINAL: Abdomen soft, mild somewhat diffuse tenderness primarily over the incision sites MUSCULOSKELETAL: No lower extremity muscle spasm. NEUROLOGICAL: AAOx3. Speech clear & appropriate. Follows commands without difficulty. Limited participation due to abdominal pain w/testing but appears to be normal. Lower extremity sensorimotor intact Medical Decision Making Impression and Plan Impression: The patient's right subcostal and lateral abdominal-flank pain seemed improved following her second surgery for repositioning of the shunt catheter. The pain continues to fluctuate, but generally improved over the past few days Intravenous pain medications have been discontinued. Weaning oral narcotics Plan: Discussed with patient Discussed with case management She is in agreement with discharge 10/03/2017. I had a long discussion with her regarding the importance of wound care, proper positioning. Signs and symptoms to watch for fully discussed. I emphasized to her the importance of proper diet and nutrition, exercise, persistent weight loss. She voices her understanding and agreement with all of the above. Mamadou Cerrato MD Oct 02, 2017 14:46
[2017-10-02] MEDS: REMOVE OLD PATCH T-DERMAL SCH (20:38)
[2017-10-03] VITALS: BP 95/54; PULSE 88; RESP 18; TEMP 98.5; O2SAT 92
[2017-10-03] MEDS: HYDROmorphone HCL 4 MG TAB PO PRN ×2 (03:19→08:45)
[2017-10-03 04:00] VITALS: BP 102/56; PULSE 69; RESP 18; TEMP 98.3; O2SAT 97
[2017-10-03 08:30] VITALS: BP 139/59; PULSE 84; RESP 18; TEMP 97.2; O2SAT 95
[2017-10-03] MEDS: FLUoxetine HCL 20 MG CAP PO SCH (08:45)
[2017-10-03] MEDS: POLYETHYLENE GLYCOL 17 GM PKG PO SCH (08:46)
[2017-10-03] MEDS: DOCUSATE SODIUM 50 MG/SENNA 8.6 MG TAB PO SCH (08:46)
[2017-10-03] MEDS: TOPIRAMATE 100 MG TAB PO SCH (08:46)
[2017-10-03] MEDS: LIDOCAINE HCL 5% PATCH T-DERMAL SCH (08:47)
[2017-10-03] MEDS: NEOMYCIN/POLYMYXIN/BACITRACIN OINT 15 GM TUBE TOPICAL SCH (08:48)
== END 2017-10-03 10:41 | disposition home or self-care (01) ==
LOC: NEPE 19:40 → UNDOADMIN 21:21 → NEDA 21:21 → INTOOBSV 22:37 → N05B 23:31
PROVIDERS: ADMIT Neurological Surgery; ATTEND Neurological Surgery
DX: T85.628A Displacement of other specified internal prosthetic devices, implants and grafts, initial encounter (principal); T85.848A Pain due to other internal prosthetic devices, implants and grafts, initial encounter; G89.28 Other chronic postprocedural pain; G93.2 Benign intracranial hypertension; G43.909 Migraine, unspecified, not intractable, without status migrainosus; F41.1 Generalized anxiety disorder; J45.909 Unspecified asthma, uncomplicated; F17.210 Nicotine dependence, cigarettes, uncomplicated; F11.20 Opioid dependence, uncomplicated; I10 Essential (primary) hypertension; E87.6 Hypokalemia; F12.90 Cannabis use, unspecified, uncomplicated; F32.9 Major depressive disorder, single episode, unspecified; F60.7 Dependent personality disorder; G89.4 Chronic pain syndrome; N39.0 Urinary tract infection, site not specified; Z79.899 Other long term (current) drug therapy
CPT/HCPCS: 00840; 10022; 49324; 63744; 70450; 71045; 76937; 77012; 80048; 80053; 80076; 81001; 82150; 82550; 83690; 84484; 84703; 85025; 85610; 85652; 85730; 86140; 87015; 87070; 87102; 87116; 87205; 87206; 87641; 94150; 94640; 94664; 96361; 96372; 96374; 96375; 96376; 97110; 97116; 97162; 97530; 99152; 99153; 99285; C9290; G0378; G8987; G8988; J0131; J1100; J1170; J1580; J2250; J2270; J2370; J2405; J3010; J7030; J7120; J7613

== ENCOUNTER 2017-10-05 12:37 | Inpatient (IN) | payer MEDICAID, OTHER ==
[2017-10-05] VITALS (7 sets, daily range): BP systolic 104–141; BP diastolic 58–90; PULSE 83–119; RESP 18–21; TEMP 98.6–102; O2SAT 92–98
[~2017-10-05] VITALS: Ht 162.6 cm; Wt 110.5 kg
[~2017-10-05 12:37] MED LIST changes: -ACETA500 PO; +DILA2TAB4 PO; -MORP1TAB24 PO; -ONDA4TAB7 SL
[2017-10-05 13:01] LABS: AUTOMATED NEUTROPHIL # 9.8 TH/MM3 (1.8-7.7); BASOPHIL # 0.1 TH/MM3 (0-0.2); BASOPHIL % 0.9 % (0.0-2.0); EOSINOPHIL # 0.1 TH/MM3 (0-0.4); EOSINOPHIL % 0.6 % (0.0-4.0); HEMATOCRIT 35.6 % (35.0-46.0); HEMOGLOBIN 11.9 GM/DL (11.6-15.3); LYMPH % 16.8 % (9.0-44.0); LYMPHOCYTE # 2.1 TH/MM3 (1.0-4.8); MEAN CELL VOLUME 80.5 FL (80.0-100.0); MEAN CORPUSCULAR HEMOGLOBIN 26.9 PG (27.0-34.0); MEAN CORPUSCULAR HGB CONC 33.4 % (32.0-36.0); MEAN PLATELET VOLUME 8.4 FL (7.0-11.0); MONOCYTE # 0.6 TH/MM3 (0-0.9); NEUT % 76.7 % (16.0-70.0); PLATELET COUNT 490 TH/MM3 (150-450); RED BLOOD COUNT 4.43 MIL/MM3 (4.00-5.30); RED CELL DISTRIBUTION WIDTH 13.7 % (11.6-17.2); WHITE BLOOD COUNT 12.7 TH/MM3 (4.0-11.0)
--- NOTE | 2017-10-05 13:02 | PD ---
HPI Chief Complaint: Stroke alert Time Seen by Provider: 12:41 Travel History International Travel<30 days: No Contact w/Intl Traveler<30days: No Traveled to known affect area: No History of Present Illness HPI The patient is a 32-year-old female who presents to the emergency department via EMS as a stroke alert. The patient states she was just discharged from the hospital after she had revision of her lumboperitoneal shunt for a history of idiopathic intracranial hypertension. The patient was discharged home on October 02. The patient states she has had intractable nausea and vomiting for the last 3 days, developed a sudden onset of headache at 11 AM. The patient states she then had some numbness the left side of the body of the left face, left arm, and left leg. She noted weakness to her left arm and her left leg. She denies any previous history of CVA. Symptoms are moderate. EMS called a stroke alert in the field. PFSH Past Medical History Hx Anticoagulant Therapy: No Arthritis: No Asthma: Yes Autoimmune Disease: No Blood Disorders: No Anxiety: No Depression: No Heart Rhythm Problems: No Cancer: No Cardiovascular Problems: No High Cholesterol: No Chemotherapy: No Chest Pain: No Congestive Heart Failure: No COPD: No Cerebrovascular Accident: No Diabetes: No Diminished Hearing: No Endocrine: No Gastrointestinal Disorders: No GERD: No Genitourinary: Yes (KIDNEY STONES) Headaches: Yes Hiatal Hernia: No Heparin Induced Thrombocytopen: No Hypertension: Yes (Idiopathic intracranial hypertension) Immune Disorder: No Implanted Vascular Access Dvce: No Kidney Stones: Yes Musculoskeletal: No Neurologic: Yes Psychiatric: No Reproductive: Yes (7 MISCARRIAGES) Respiratory: Yes (asthma) Immunizations Current: Yes Migraines: Yes Radiation Therapy: No Renal Failure: No Seizures: Yes Sickle Cell Disease: No Sleep Apnea: No Thyroid Disease: No Ulcer: No : 8 Para: 1 Miscarriage: 7 Dilation and Curettage (D&C): Yes (x3 ) Past Surgical History Abdominal Surgery: No AICD: No Arteriovenous Shunt: No Cardiac Surgery: No Section: Yes Cholecystectomy: Yes Ear Surgery: No Endocrine Surgery: No Eye Surgery: No Genitourinary Surgery: Yes (STENTS KIDNEYS, LITHOTRIPSIES) Gynecologic Surgery: No Hysterectomy: Yes Insulin Pump: No Joint Replacement: No Neurologic Surgery: Yes (2 LP shunts placed 08/12/17) Oral Surgery: No Pacemaker: No Thoracic Surgery: No Other Surgery: Yes (L KIDNEY (STENTS x 6)) Social History Alcohol Use: No Tobacco Use: Yes (/2 ppd) Substance Use: Yes (weed for nausea, pain & vision) Allergies-Medications (Allergen,Severity, Reaction): Coded Allergies: Sulfa (Sulfonamide Antibiotics) (Verified Allergy, Severe, RASH, 10/05/17) amoxicillin (Verified Allergy, Severe, Anaphylaxis, 10/05/17) ketorolac (Verified Allergy, Severe, Anaphylaxis, 10/05/17) anaphylaxis per patient ibuprofen (Verified Allergy, Intermediate, HIVES, FACIAL SWELLING., ) tramadol (Verified Allergy, Intermediate, HIVES, 10/05/17) hives, sewll up latex (Verified Allergy, Unknown, 10/05/17) penicillin G (Verified Allergy, Unknown, HIVES, 10/05/17) prochlorperazine (Verified Allergy, Unknown, HIVES, 10/05/17) sumatriptan (Verified Adverse Reaction, Severe, VOMITING PASSED OUT, ) Reported Meds & Prescriptions Reported Meds & Active Scripts Active Dilaudid (Hydromorphone HCl) 2 Mg Tab 2 Mg PO Q6H PRN Zofran Odt (Ondansetron Odt) 4 Mg Tab 4 Mg SL Q8HR PRN 7 Days Walker with Front Wheels (Device) 1 Mis Mis Ea .XX DIRECTED Topamax (Topiramate) 50 Mg Tab 100 Mg PO BID 30 Days Reported Howell (Hydrocodone-Acetaminophen) 10-325 Mg Tab 1 Tab PO Q6H PRN Review of Systems Except as stated in HPI: all other systems reviewed are Neg General / Constitutional: Positive: Fever Eyes: Positive: Blurred Vision HENT: Positive: Headaches, No: Neck Pain Cardiovascular: No: Chest Pain or Discomfort Respiratory: No: Shortness of Breath Gastrointestinal: Positive: Nausea, Vomiting, Abdominal Pain Neurologic: Positive: Focal Abnormalities, Headache, Paresthesia, Sensory Disturbance, No: Change in Mentation, Slurred Speech Physical Exam Narrative GENERAL: Awake, alert, 32-year-old female who appears her stated age and is in no acute respiratory distress. SKIN: Focused skin assessment warm/dry. HEAD: Atraumatic. Normocephalic. EYES: Pupils equal and round. 3 mm bilateral and reactive. EOMs are intact. ENT: No nasal bleeding or discharge. Mucous membranes pink and moist. NECK: Trachea midline. No JVD. CARDIOVASCULAR: Regular rate and rhythm. No murmur appreciated. RESPIRATORY: No accessory muscle use. Clear to auscultation. Breath sounds equal bilaterally. GASTROINTESTINAL: Abdomen soft, obese. No rebound tenderness. MUSCULOSKELETAL: No obvious deformities. No clubbing. No cyanosis. No edema. NEUROLOGICAL: Awake and alert. No obvious cranial nerve deficits. Smile is symmetric. Tongue is midline. Mild drift to the left arm and left leg, however , they do not fall to the bed. Finger to nose is normal. Heel to siegel is normal. Subjective decreased sensation to the left leg, left arm, and left face. No dysarthria noted. Patient is oriented 4. PSYCHIATRIC: Patient appears anxious. Data Data Last Documented VS Vital Signs Date Time Temp Pulse Resp B/P (MAP) Pulse Ox O2 Delivery O2 Flow Rate FiO2 10/05/17 13:06 92 Room Air 10/05/17 12:39 119 21 141/90 (107) Orders Orders Diet Npo (10/05/17 Lunch) Activity Bed Rest (10/05/17 ) Electrocardiogram (10/05/17 ) I-Stat Profile (10/05/17 12:38) Prothrombin Time / Inr (Pt) (10/05/17 12:38) Act Partial Throm Time (Ptt) (10/05/17 12:38) Complete Blood Count With Diff (10/05/17 12:38) Fibrinogen (10/05/17 12:38) Creatine Kinase (Cpk) (10/05/17 12:38) Troponin I (10/05/17 12:38) Ua Includes Microscopic (10/05/17 12:38) Drug Screen, Random Urine (10/05/17 12:38) Type And Screen (10/05/17 12:38) Ct Brain W/O Iv Contrast(Rout) (10/05/17 ) Cta Brain W Iv Contrast W 3d (10/05/17 12:38) Cta Neck W Iv Contrast W 3d (10/05/17 12:38) Beta Hcg (Quant/Titer) (10/05/17 12:38) Consult Neurology (10/05/17 ) Blood Glucose (10/05/17 12:38) Ecg Monitoring (10/05/17 12:38) Neuro Checks Q2HX12,Q4H (10/05/17 12:38) Nursing Bedside Swallow Assess .ONCE (10/05/17 12:38) Iv Access Insert/Monitor (10/05/17 12:38) NPO (10/05/17 12:38) Oximetry (10/05/17 12:38) Resp Oxygen Nc Stroke (10/05/17 ) Cath For Specimen (10/05/17 12:38) Metoclopramide Inj (Reglan Inj) (10/05/17 13:15) Diphenhydramine Inj (Benadryl Inj) (10/05/17 13:15) Sodium Chlor 0.9% 1000 Ml Inj (Ns 1000 M (10/05/17 13:15) Aspirin (Aspirin) (10/05/17 13:15) Iodixanol 320 Inj (Rad Ct) (Visipaque 32 (10/05/17 13:09) Ondansetron Odt (Zofran Odt) (10/05/17 13:45) Nih Stroke Scale - Nihss .On admission and discharge (10/05/17 13:36) Case Management Consult (10/05/17 ) Activity Bed Rest (10/05/17 13:36) Nursing Bedside Swallow Assess .ONCE (10/05/17 13:36) Scd Bilateral/Knee High SORAYA.QSHIFT (10/05/17 13:36) Hemoglobin (Hgb) A1c (10/05/17 13:36) Lipid Profile (10/06/17 06:00) Mra Brain W/O Contrast (Cow) (10/05/17 ) Mri Brain W/O Contrast (10/05/17 ) Echo 2d Comp With Doppler (10/05/17 ) Resp Oxygen Nc Stroke (10/05/17 ) ^ Hold Medication (10/05/17 13:36) Sodium Chloride 0.9% Flush (Ns Flush) (10/05/17 21:00) Sodium Chloride 0.9% Flush (Ns Flush) (10/05/17 13:45) Sodium Chlor 0.9% 1000 Ml Inj (Ns 1000 M (10/05/17 13:36) Aspirin (Aspirin) (10/05/17 13:45) Bedside Glucose SORAYA.CSUGAR (10/05/17 13:36) ^ Discontinue Insulin Orders (10/05/17 13:36) Insulin Aspart Supplemtl Scale (Novolog (10/05/17 17:00) Dextrose 50% In Av (Vial) Inj (D50w (Vi (10/05/17 13:45) Glucagon Inj (Glucagon Inj) (10/05/17 13:45) Consult Rehab Medicine (10/05/17 13:36) Medical Staff Services Coordinator / Telemetry SORAYA.Q8H (10/05/17 13:36) Consult Stroke Navigator (10/05/17 ) Lupus Anticoagulant Drvvt (10/05/17 13:36) Protein C Activity (10/05/17 13:36) Protein S Activity (10/05/17 13:36) Factor V Leiden (10/05/17 13:36) Prothrombin [id number] Mutation (10/05/17 13:36) Westergren Sedimentation Rate (10/05/17 13:36) (Hub Use Only)Inp Phy Cons/Ref (10/05/17 ) (Hub Use Only)Inp Phy Cons/Ref (10/05/17 ) Labs Laboratory Tests Test 10/05/17 12:42 White Blood Count 12.7 TH/MM3 Red Blood Count 4.43 MIL/MM3 Hemoglobin 11.9 GM/DL Bedside Hemoglobin 12.2 G/DL Hematocrit 35.6 % Bedside Hematocrit 36.0 % Mean Corpuscular Volume 80.5 FL Mean Corpuscular Hemoglobin 26.9 PG Mean Corpuscular Hemoglobin Concent 33.4 % Red Cell Distribution Width 13.7 % Platelet Count 490 TH/MM3 Mean Platelet Volume 8.4 FL Neutrophils (%) (Auto) 76.7 % Lymphocytes (%) (Auto) 16.8 % Monocytes (%) (Auto) 5.0 % Eosinophils (%) (Auto) 0.6 % Basophils (%) (Auto) 0.9 % Neutrophils # (Auto) 9.8 TH/MM3 Lymphocytes # (Auto) 2.1 TH/MM3 Monocytes # (Auto) 0.6 TH/MM3 Eosinophils # (Auto) 0.1 TH/MM3 Basophils # (Auto) 0.1 TH/MM3 CBC Comment DIFF FINAL Differential Comment Erythrocyte Sedimentation Rate 88 mm/hr Prothrombin Time 11.2 SEC Prothromb Time International Ratio 1.1 RATIO Activated Partial Thromboplast Time 29.1 SEC Fibrinogen GREATER THAN 860 mg/dL Bedside Sodium 140 MMOL/L Bedside Potassium 3.9 MMOL/L Bedside Chloride 104 MMOL/L Bedside Blood Urea Nitrogen 13 MG/DL Bedside Creatinine 0.6 MG/DL Bedside Glucose 126 MG/DL Total Creatine Kinase 180 U/L Troponin I LESS THAN 0.02 NG/ML Human Chorionic Gonadotropin, Quant LESS THAN 1 MIU/ML MDM Medical Screen Exam Complete: Yes Emergency Medical Condition: Yes Medical Record Reviewed: Yes EKG Prior to Arrival: Yes Differential Diagnosis Differential diagnosis includes subarachnoid hemorrhage, intracranial hemorrhage , pseudotumor cerebri, CVA, complicated migraine, seizure, malingering, drug- seeking behavior. Narrative Course Stroke alert was called upon arrival of the patient. The patient was quickly assessed, stroke scale was 3 with drift the left arm, left leg, and subjective decreased sensation to the left leg, left arm, and left face. The patient went immediately to CT. I did review the patient's EMR, she was just discharged on October 02, 2017. She underwent lumboperitoneal shunt revision by Dr. Cerrato the neurosurgeon and Dr. Morrison, the general surgeon, on September 19, 2017. I discussed the patient with Dr. Antonio Haddad, the on-call neurologist, and after discussion it was agreed the patient would not be a TPA candidate with a stroke scale of 3 and recent lumboperitoneal shunt revision. However, CTA was ordered to rule out possible aneurysm subarachnoid hemorrhage as patient did have a headache with nausea and vomiting prior to the onset of her symptoms. I did review the EMR, the patient has a history of recent visitation in the emergency department for chronic pain including headaches and abdominal pain. CT and CTA is negative , no evidence of hemorrhage. The patient is not a TPA candidate. The patient was evaluated by Dr. Haddad in the emergency department and will be admitted to the on-call medical service. Critical Care Narrative Aggregate critical care time was 15 minutes. Time to perform other separately billable procedures was not included in the critical care time. My time did not include minutes spent treating any other patients simultaneously or on activities that did not directly contribute to the patient's treatment. The services I provided to this patient were to treat and/or prevent clinically significant deterioration that could result in: Increase in neurologic deficit, intracranial hemorrhage, chronic neurologic deficit. I provided critical care services requiring my management, as noted below: Chart data review, documentation time, medication orders and management, vital sign assessments/reviewing monitor data, ordering and reviewing lab tests, ordering and interpreting/reviewing x-rays and diagnostic studies, care of the patient and discussion of the patient with the admitting physicians. Stroke Alert NIHSS NIH Stroke Scale Result: 3 NIHSS Time Completed: 12:39 Thrombolytic Contraindications Contraindications: Intraspinal Surgery<3 mos Contraindications Comment: Revision of lumboperitoneal shunt on September 19, 2017 Procedures Interpretation(s) EKG reveals sinus rhythm with sinus arrhythmia. Nonspecific T-wave changes. Last Impressions Neck CTA 10/05/17 1238 Signed Impressions: CONCLUSION: 1. Negative CTA carotids. Head CTA 10/05/17 1238 Signed Impressions: CONCLUSION: 1. Unremarkable CTA brain. Head CT 10/05/17 0000 Signed Impressions: CONCLUSION: 1. Negative CT Head non contrast. Laboratory Tests Test 10/05/17 12:42 White Blood Count 12.7 TH/MM3 Red Blood Count 4.43 MIL/MM3 Hemoglobin 11.9 GM/DL Bedside Hemoglobin 12.2 G/DL Hematocrit 35.6 % Bedside Hematocrit 36.0 % Mean Corpuscular Volume 80.5 FL Mean Corpuscular Hemoglobin 26.9 PG Mean Corpuscular Hemoglobin Concent 33.4 % Red Cell Distribution Width 13.7 % Platelet Count 490 TH/MM3 Mean Platelet Volume 8.4 FL Neutrophils (%) (Auto) 76.7 % Lymphocytes (%) (Auto) 16.8 % Monocytes (%) (Auto) 5.0 % Eosinophils (%) (Auto) 0.6 % Basophils (%) (Auto) 0.9 % Neutrophils # (Auto) 9.8 TH/MM3 Lymphocytes # (Auto) 2.1 TH/MM3 Monocytes # (Auto) 0.6 TH/MM3 Eosinophils # (Auto) 0.1 TH/MM3 Basophils # (Auto) 0.1 TH/MM3 CBC Comment DIFF FINAL Differential Comment Erythrocyte Sedimentation Rate 88 mm/hr Prothrombin Time 11.2 SEC Prothromb Time International Ratio 1.1 RATIO Activated Partial Thromboplast Time 29.1 SEC Fibrinogen GREATER THAN 860 mg/dL Bedside Sodium 140 MMOL/L Bedside Potassium 3.9 MMOL/L Bedside Chloride 104 MMOL/L Bedside Blood Urea Nitrogen 13 MG/DL Bedside Creatinine 0.6 MG/DL Bedside Glucose 126 MG/DL Total Creatine Kinase 180 U/L Troponin I LESS THAN 0.02 NG/ML Human Chorionic Gonadotropin, Quant LESS THAN 1 MIU/ML Physician Communication Physician Communication The on-call medical service was paged for admission. I discussed the patient with Dr. Roman who agrees with admission. Diagnosis Diagnosis: Primary Impression: Cephalgia Qualified Codes: R51 - Headache Additional Impressions: Pseudotumor cerebri Chronic pain disorder Acute focal neurological deficit Admitting Physician Requests: Admit Condition: Stable Eduard Young MD Oct 05, 2017 13:02
--- NOTE | 2017-10-05 13:08 | RADRPT ---
EXAM DATE: 10/05/2017 12:58 PM EDT AGE/SEX: 32 years / Female INDICATIONS: Stroke alert, left sided deficits. Headache and vomiting. CLINICAL DATA: This is the patient's initial encounter. Patient reports that signs and symptoms have been present for 1 day and indicates a pain score of 6/10. MEDICAL/SURGICAL HISTORY: Hypertension. Cholecystectomy. Hysterectomy. RADIATION DOSE: 56.35 CTDI (mGy) [place] [facility] [place]. . Report was called by [Dr. Avila to Dr. Young at 1:05 PM on October 05, 2017. ] TECHNIQUE: CT of the head without contrast. Using automated exposure control and adjustment of the mA and/or kV according to patient size, radiation dose was kept as low as reasonably achievable to ob tain optimal diagnostic quality images. FINDINGS: Ventricles and cisterns are of normal size and configuration. No definite evidence for intracranial h emorrhage, mass, or acute infarction. No fractures. CONCLUSION: 1. Negative CT Head non contrast. Electronically signed by: Sawyer Avila MD 10/05/2017 1:06 PM EDT
[2017-10-05] MEDS ORDERED: IODIXANOL 320 MG/ML 10 ML VIAL (for Rad CT) IVCONTRAST ONE (13:09)
[2017-10-05] MEDS ORDERED: HYDR-3366 PO (13:10)
[2017-10-05 13:14] LABS: INTERNATIONAL NORMALIZED RATIO 1.1 RATIO; PROTHROMBIN TIME - PATIENT 11.2 SEC (9.8-11.6)
[2017-10-05] MEDS ORDERED: ASPIRIN 325 MG TAB PO ONE (13:15)
[2017-10-05] MEDS ORDERED: SODIUM CHLOR 0.9% 1000 ML INJ 1,000 ML IV ONE (13:15)
[2017-10-05] MEDS: METOCLOPRAMIDE HCL 10 MG/2 ML VIAL IV PUSH ONE ×2 (13:15→13:22)
[2017-10-05] MEDS ORDERED: diphenhydrAMINE HCL 50 MG/ML VIAL IV PUSH ONE (13:15)
[2017-10-05 13:20] LABS: TROPONIN I LESS THAN 0.02 NG/ML (0.02-0.05)
--- NOTE | 2017-10-05 13:21 | RADRPT ---
EXAM DATE: 10/05/2017 1:07 PM EDT AGE/SEX: 32 years / Female INDICATIONS: Stroke alert, left sided deficits. Headache and vomiting. CLINICAL DATA: This is the patient's initial encounter. Patient reports that signs and symptoms have been present for 1 day and indicates a pain score of 4/10. MEDICAL/SURGICAL HISTORY: Hypertension. Cholecystectomy. Hemorrhoidectomy. RADIATION DOSE: 10.37 CTDI (mGy) ; Combined studies COMPARISON: No prior exams available for comparison. TECHNIQUE: Volumetric scanning was performed using a multi-row detector CT scanner during bolus infu chris of 70 ml Visipaque 320 (iodixanol) nonionic water-soluble contrast as a cumulative dose for mul tiple exams. The data was post processed with a variety of visualization algorithms including full volume maximum intensity projection, multi-planar sliding thin slab reformation, curved planar reform ation, and surface rendering techniques. Using automated exposure control and adjustment of the mA a nd/or kV according to patient size, radiation dose was kept as low as reasonably achievable to obtain optimal diagnostic quality images. FINDINGS: The distal internal carotid arteries and vertebral arteries are patent. Basilar artery is patent. Ant erior, middle and posterior cerebral arteries are patent. No significant stenosis or thrombosis is id entified. CONCLUSION: 1. Unremarkable CTA brain. Electronically signed by: Daniel Zuniga MD 10/05/2017 1:20 PM EDT
--- NOTE | 2017-10-05 13:36 | RADRPT ---
EXAM DATE: 10/05/2017 1:24 PM EDT AGE/SEX: 32 years / Female INDICATIONS: Stroke alert, left sided deficits. Headache and vomiting. CLINICAL DATA: This is the patient's initial encounter. Patient reports that signs and symptoms have been present for 1 day and indicates a pain score of 4/10. MEDICAL/SURGICAL HISTORY: Hypertension. Cholecystectomy. Hysterectomy. RADIATION DOSE: 10.37 CTDI (mGy) ; Combined studies COMPARISON: No prior exams available for comparison. TECHNIQUE: Volumetric scanning was performed using a multirow detector CT scanner during bolus infus ion of 70 ml Visipaque 320 (iodixanol) nonionic water-soluble contrast as a cumulative dose for mult iple exams. The data was postprocessed with a variety of visualization algorithms including full-vo lume maximum intensity projection, multiplanar sliding thin-slab reformation, curved-planar reformati on, and surface-rendering techniques. Using automated exposure control and adjustment of the mA and/ or kV according to patient size, radiation dose was kept as low as reasonably achievable to obtain op timal diagnostic quality images. Elevated flow velocities and ICA/CCA ratios have been found to correlate with increased degrees of ve ssel stenosis, calculated as percentage of diameter relative to a normal segment of distal ICA/CCA. FINDINGS: Both carotid and vertebral arteries are patent. Common carotid arteries are patent. Great vessel orig ins are patent. There is no carotid stenosis. No aneurysm or dissection. No other soft tissue masses identified. CONCLUSION: 1. Negative CTA carotids. Electronically signed by: Daniel Zuniga MD 10/05/2017 1:34 PM EDT
[2017-10-05] MEDS ORDERED: GLUCAGON 1 MG/ML VIAL OTHER PRN (13:45)
[2017-10-05] MEDS: ASPIRIN 325 MG TAB PO SCH (13:45)
[2017-10-05] MEDS ORDERED: DEXTROSE 50% IN WATER 50 ML VIAL(D50) IV PUSH PRN (13:45)
[2017-10-05] MEDS ORDERED: ONDANSETRON ODT 4 MG TAB PO ONE (13:45)
--- NOTE | 2017-10-05 13:57 | MB ---
cc: Antonio Haddad MD, PhD DATE: 10/05/2017 REASON FOR CONSULTATION: Stroke alert. HISTORY OF PRESENT ILLNESS: This is a 32-year-old female who has a history of pseudotumor cerebri. She had a lumboperitoneal shunt revision last 09/19. Prior to that time, was having persistent headaches, but since then, has not had any headaches until today. She describes a severe headache at the base of her skull and then developed left-sided weakness shortly before presentation. A stroke alert was called. She has a severe, throbbing, pounding headache. She has not had any focal symptoms in the past. PAST MEDICAL HISTORY: History of pseudotumor cerebri, recent shunt revision 09/19, migraine headaches as well. NEUROLOGIC EXAMINATION: Blood pressure is 140/90, pulse is 119, respirations are 21. Higher cortical functions are normal. Cranial nerves are intact. I cannot visualize the fundi very well due to her photophobia. Cranial nerves otherwise intact. There is no facial droop. On motor exam, she is trace weak in the left arm and left leg, rated at 4+/5, proximally and distally, with normal strength on the right. She has got normal fine motor skills. There is no drift. Reflexes are 2+ symmetric with no Babinski. DIAGNOSTIC DATA: CT brain is normal. CTA of the brain is normal. CTA of the neck pending. LABORATORY DATA: The white count is 12,700, hemoglobin 11.9, hematocrit 35%, platelet count is 490,000. The PT 11.2, INR 1.1, aPTT 29.1. Sodium is 140, potassium 3.9, chloride 104, BUN is 13, creatinine 0.6, glucose 126. CPK is 180. IMPRESSION: Left-sided weakness, possibly complicated migraine. Stroke would be in the differential; however, the patient is not a candidate for tissue plasminogen activator given her recent lumboperitoneal shunt revision surgery. There is no evidence of any large vessel occlusion to warrant interventional therapy. RECOMMENDATIONS: We will start aspirin 325 mg daily. We will obtain an MRI of the brain if not contraindicated by her recent lumboperitoneal shunt surgery. Follow up on the CTA of the carotids. Also check hypercoagulable labs and an echocardiogram. Consider HERBERT if she has not had one in the past. Antonio Haddad MD, PhD MOHIT/HUDSON , 01:36 PM , 01:56 PM
[2017-10-05 13:59] LABS: FIBRINOGEN GREATER THAN 860 mg/dL (227-377)
[2017-10-05] MEDS: SODIUM CHLOR 0.9% 1000 ML INJ 1,000 ML IV SCH (14:32)
--- NOTE | 2017-10-05 15:31 | HHI.HP ---
HPI Service [facility] Primary Care Physician Unknown Admission Diagnosis Stroke alert, acute focal neurologic deficit, headache Diagnoses: Chief Complaint: Headache with left-sided weakness Travel History International Travel<30 Days: No Contact w/Intl Traveler <30 Da: No Traveled to Known Affected Are: No History of Present Illness This is a 32-year-old female with history of pnephrolithiasis, pseudotumor cerebri, status post lumboperitoneal shunt placement in the past, status post revision of the lumboperitoneal shunt 09/19/2017 and was discharged October 02, 2017. Prior to that, patient has been complaining of severe headache at the base of her skull which resolved after the shunt placement. Since discharge, she complained of intractable nausea and vomiting, today around 11 AM she started having a severe headache described as throbbing and pounding with left- sided weakness and numbness involving both arms and legs which she never had in the past. A stroke alert was called on this patient upon ED evaluation. CT scan of the head was unremarkable. CTA of the head was also negative for intracranial hemorrhage or aneurysm. Presently, patient's left-sided weakness is getting better including the numbness. Patient is a complains of severe headache with photophobia. Review of Systems ROS Limitations: Other (All other pertinent systems were reviewed and are negative.) Past Family Social History Past Medical History History of idiopathic intracranial hypertension History of MRSA skin infections. Kidney stones Asthma History of migraine headaches Past Surgical History Cholecystectomy Hysterectomy Renal stent Lumboperitoneal shunt status post revision Reported Medications Dilaudid (Hydromorphone HCl) 2 Mg Tab 2 Mg PO Q6H PRN Zofran Odt (Ondansetron Odt) 4 Mg Tab 4 Mg SL Q8HR PRN 7 Days Walker with Front Wheels (Device) 1 Mis Mis Ea .XX DIRECTED Topamax (Topiramate) 50 Mg Tab 100 Mg PO BID 30 Days [place] (Hydrocodone-Acetaminophen) 10-325 Mg Tab 1 Tab PO Q6H PRN Allergies: Coded Allergies: Sulfa (Sulfonamide Antibiotics) (Verified Allergy, Severe, RASH, 10/05/17) amoxicillin (Verified Allergy, Severe, Anaphylaxis, 10/05/17) ketorolac (Verified Allergy, Severe, Anaphylaxis, 10/05/17) anaphylaxis per patient ibuprofen (Verified Allergy, Intermediate, HIVES, FACIAL SWELLING., ) tramadol (Verified Allergy, Intermediate, HIVES, 10/05/17) hives, sewll up latex (Verified Allergy, Unknown, 10/05/17) penicillin G (Verified Allergy, Unknown, HIVES, 10/05/17) prochlorperazine (Verified Allergy, Unknown, HIVES, 10/05/17) sumatriptan (Verified Adverse Reaction, Severe, VOMITING PASSED OUT, ) Family History Negative cardiac disease Social History Smokes one half pack cigarettes per day No alcohol Occasional marijuana Physical Exam Vital Signs Vital Signs Date Time Temp Pulse Resp B/P (MAP) Pulse Ox O2 Delivery O2 Flow Rate FiO2 10/05/17 13:06 92 Room Air 10/05/17 13:06 92 Room Air 10/05/17 12:39 119 21 141/90 (107) 97 Physical Exam GENERAL: Not in acute distress, in pain. HEAD: Atraumatic. Normocephalic. EYES: PERRL, no jaundice, nonicteric, pink conjunctivae CARDIOVASCULAR: Regular rate and rhythm without murmurs, gallops, or rubs. RESPIRATORY: Clear to auscultation with normal respiratory effort. Breath sounds equal bilaterally. GASTROINTESTINAL: Abdomen soft, normal bowel sounds, non-tender, nondistended. Obese. MUSCULOSKELETAL: Extremities without clubbing, cyanosis, or edema. INTEGUMENTARY: Warm and dry, no rash of generalized distribution. NEUROLOGICAL: Awake, alert, oriented 3. No obvious cranial nerve deficits. Moves all 4 extremities, muscle strength testing 4/5 in the left upper extremity and left lower extremity but poor effort. No facial asymmetry. Decreased sensation on the left upper extremity and left lower extremity by 20- 30%. Positive for photophobia. Negative for dysarthria. Incomplete neurological exam because patient is in pain, pupils are reactive. Laboratory Laboratory Tests Test 10/05/17 12:42 White Blood Count 12.7 Red Blood Count 4.43 Hemoglobin 11.9 Bedside Hemoglobin 12.2 Hematocrit 35.6 Bedside Hematocrit 36.0 Mean Corpuscular Volume 80.5 Mean Corpuscular Hemoglobin 26.9 Mean Corpuscular Hemoglobin Concent 33.4 Red Cell Distribution Width 13.7 Platelet Count 490 Mean Platelet Volume 8.4 Neutrophils (%) (Auto) 76.7 Lymphocytes (%) (Auto) 16.8 Monocytes (%) (Auto) 5.0 Eosinophils (%) (Auto) 0.6 Basophils (%) (Auto) 0.9 Neutrophils # (Auto) 9.8 Lymphocytes # (Auto) 2.1 Monocytes # (Auto) 0.6 Eosinophils # (Auto) 0.1 Basophils # (Auto) 0.1 CBC Comment DIFF FINAL Differential Comment Erythrocyte Sedimentation Rate 88 Prothrombin Time 11.2 Prothromb Time International Ratio 1.1 Activated Partial Thromboplast Time 29.1 Fibrinogen GREATER THAN 860 Bedside Sodium 140 Bedside Potassium 3.9 Bedside Chloride 104 Bedside Blood Urea Nitrogen 13 Bedside Creatinine 0.6 Bedside Glucose 126 Total Creatine Kinase 180 Troponin I LESS THAN 0.02 Human Chorionic Gonadotropin, Quant LESS THAN 1 Result Diagram: 10/05/17 1242 Imaging Last Impressions Neck CTA 10/05/17 1238 Signed Impressions: CONCLUSION: 1. Negative CTA carotids. Head CTA 10/05/17 1238 Signed Impressions: CONCLUSION: 1. Unremarkable CTA brain. Head CT 10/05/17 0000 Signed Impressions: CONCLUSION: 1. Negative CT Head non contrast. Caprini VTE Risk Assessment Caprini VTE Risk Assessment: No/Low Risk (score <= 1) Caprini Risk Assessment Model Point Value = 1 Point Value = 2 Point Value = 3 Point Value = 5 Age 41-60 Minor surgery BMI > 25 kg/m2 Swollen legs Varicose veins or History of unexplained or recurrent spontaneous Oral contraceptives or hormone replacement Sepsis (< 1 month) Serious lung disease, including pneumonia (< 1 month) Abnormal pulmonary function Acute myocardial infarction Congestive heart failure (< 1 month) History of inflammatory bowel disease Medical patient at bed rest Age 61-74 Arthroscopic surgery Major open surgery (> 45 min) Laparoscopic surgery (> 45 min) Malignancy Confined to bed (> 72 hours) Immobilizing plaster cast Central venous access Age >= 75 History of VTE Family history of VTE Factor V Leiden Prothrombin [id number] Lupus anticoagulant Anticardiolipin antibodies Elevated serum homocysteine Heparin-induced thrombocytopenia Other congenital or acquired thrombophilia Stroke (< 1 month) Elective arthroplasty Hip, pelvis, or leg fracture Acute spinal cord injury (< 1 month) Prophylaxis Regimen Total Risk Factor Score Risk Level Prophylaxis Regimen 0-1 Low Early ambulation 2 Moderate Order ONE of the following: *Sequential Compression Device (SCD) *Heparin 5000 units SQ BID 3-4 Higher Order ONE of the following medications: *Heparin 5000 units SQ TID *Enoxaparin/Lovenox 40 mg SQ daily (WT < 150 kg, CrCl > 30 mL/min) *Enoxaparin/Lovenox 30 mg SQ daily (WT < 150 kg, CrCl > 10-29 mL/min) *Enoxaparin/Lovenox 30 mg SQ BID (WT < 150 kg, CrCl > 30 mL/min) AND/OR *Sequential Compression Device (SCD) 5 or more Highest Order ONE of the following medications: *Heparin 5000 units SQ TID (Preferred with Epidurals) *Enoxaparin/Lovenox 40 mg SQ daily (WT < 150 kg, CrCl > 30 mL/min) *Enoxaparin/Lovenox 30 mg SQ daily (WT < 150 kg, CrCl > 10-29 mL/min) *Enoxaparin/Lovenox 30 mg SQ BID (WT < 150 kg, CrCl > 30 mL/min) AND *Sequential Compression Device (SCD) Assessment and Plan Assessment and Plan This is a 32-year-old female with history of pseudotumor cerebri status post lumbo-peritoneal shunt patient presenting with headache with left-sided weakness Rule out CVA, likely complicated migraine-patient presenting with headache with left-sided weakness and numbness, CTA of the carotids and head unremarkable. Check an MRI, start aspirin, neurology consulted, follow-up echocardiogram and hypercoagulable workup. Continue Topamax, restart pain medications. Will give Ativan for MRI since patient is claustrophobic.ESR is elevated at 88. Pseudotumor cerebri-status post lumbar peritoneal shunt with revision, monitor. Leukocytosis-likely physiological stress, monitor. DVT prophylaxis: SCDs, low risk Physician Certification 2 Midnight Certification Type: Continued Stay Order for Inpatient Services The services are ordered in accordance with Medicare regulations or non- Medicare payer requirements, as applicable. In the case of services not specified as inpatient-only, they are appropriately provided as inpatient services in accordance with the 2-midnight benchmark. Estimated LOS (days): 2 days is the estimated time the patient will need to remain in the hospital, assuming treatment plan goals are met and no additional complications. Post-Hospital Plan: Not yet determined Notes: Erratum:Wrong template. The patient will be admitted under observation. Myles Roman MD Oct 05, 2017 15:31
[2017-10-05] MEDS ORDERED: NALOXONE HCL 0.4 MG/ML AMP IV PUSH PRN ×2 (16:00)
[2017-10-05] MEDS ORDERED: ONDANSETRON HCL 4 MG/2 ML VIAL IVP PRN (16:00)
[2017-10-05] MEDS ORDERED: BISACODYL 10 MG SUPP RECTAL PRN (16:00)
[2017-10-05] MEDS ORDERED: LACTULOSE SYRUP 20 GM/30 ML CUP PO PRN (16:00)
[2017-10-05] MEDS ORDERED: ACETAMINOPHEN/HYDROcodone 325 MG/5 MG TAB PO PRN (16:00)
[2017-10-05] MEDS ORDERED: SODIUM CHLORIDE 0.9% FLUSH 10 ML FLUSH IV FLUSH PRN (16:00)
[2017-10-05] MEDS ORDERED: LORazepam 2 MG/ML VIAL IV PUSH ONE (16:00)
[2017-10-05] MEDS ORDERED: MAGNESIUM HYDROXIDE SUSP 30 ML CUP PO PRN (16:00)
[2017-10-05] MEDS ORDERED: SENNOSIDES 8.6 MG TAB PO PRN (16:00)
[2017-10-05] MEDS ORDERED: ACETAMINOPHEN 325 MG TAB PO PRN (16:00)
--- NOTE | 2017-10-05 16:59 | RADRPT ---
EXAM DATE: 10/05/2017 4:38 PM EDT AGE/SEX: 32 years / Female INDICATIONS: Left sided weakness. Headache CLINICAL DATA: This is the patient's subsequent encounter. Patient reports that signs and symptoms h ave been present for 2 months and indicates a pain score of 3/10. MEDICAL/SURGICAL HISTORY: Asthma. Intracranial hypertension. Hysterectomy. lp shuntrenal stent s COMPARISON: No prior exams available for comparison. TECHNIQUE: Multiplanar, multisequence examination of the brain was performed without contrast. FINDINGS: No intracranial mass or midline shift. No hydrocephalus. No abnormal extra-axial fluid collections ar e present. No recent infarct. No hemorrhage. No hydrocephalus. CONCLUSION: 1. Unremarkable MRI brain for age. Electronically signed by: Daniel Zuniga MD 10/05/2017 4:57 PM EDT
--- NOTE | 2017-10-05 17:08 | RADRPT ---
EXAM DATE: Unremarkable MRA brain. AGE/SEX: 32 years / Female INDICATIONS: Left sided weakness. Headaches. CLINICAL DATA: This is the patient's subsequent encounter. Patient reports that signs and symptoms h ave been present for 2 months and indicates a pain score of 3/10. MEDICAL/SURGICAL HISTORY: Asthma. Intracranial hypertension. Hysterectomy. lp shuntrenal stent s COMPARISON: No prior exams available for comparison. TECHNIQUE: 3D [id number] MRA was performed. Source images, multiplanar STS MIP, and 3D volum e MIP reconstructions were reviewed. FINDINGS: There is excellent visualization of the major intracranial arteries out to the second-order branch ve ssels. There is no evidence for aneurysm, vessel truncation or stenosis, and no evidence for vascula r malformation. CONCLUSION: 1. Unremarkable MRA brain. Electronically signed by: Daniel Zuniga MD 10/05/2017 5:07 PM EDT
[2017-10-05] MEDS: INSULIN ASPART SUPPLEMENTAL SCALE SQ SCH ×2 (17:58→21:49)
[2017-10-05] MEDS: ENOXAPARIN SODIUM 30 MG/0.3 ML SYRINGE SQ SCH (18:14)
[2017-10-05] MEDS: MORPHINE SULFATE 4 MG/ML INJ IV PUSH PRN (18:16)
--- NOTE | 2017-10-05 20:12 | RADRPT ---
EXAM DATE: 10/05/2017 8:01 PM EDT AGE/SEX: 32 years / Female INDICATIONS: Bilateral chest pain and shortness of breath with headache. CLINICAL DATA: This is the patient's initial encounter. Patient reports that signs and symptoms have been present for 3 days and indicates a pain score of 5/10. MEDICAL/SURGICAL HISTORY: . Hypertension. . Spinal-abdominal shunt. Cholecystectomy. Hysterec ellen. COMPARISON: No prior exams available for comparison. FINDINGS: PA and lateral views of the chest demonstrate the lungs to be symmetrically aerated without evidence of mass, infiltrate or effusion. The cardiomediastinal contours are unremarkable. Osseous structures are intact. CONCLUSION: No active disease. Electronically signed by: Daniel Zuniga MD 10/05/2017 8:11 PM EDT
[2017-10-05] MEDS: DOCUSATE SODIUM 50 MG/SENNA 8.6 MG TAB PO SCH (21:48)
[2017-10-05] MEDS: SODIUM CHLORIDE 0.9% FLUSH 10 ML FLUSH IV FLUSH SCH ×2 (21:48)
[2017-10-05] MEDS: TOPIRAMATE 100 MG TAB PO SCH (21:52)
[2017-10-06] VITALS (7 sets, daily range): BP systolic 102–129; BP diastolic 57–70; PULSE 64–79; RESP 16–18; TEMP 98.3–100.3; O2SAT 95–98
[2017-10-06] MEDS ORDERED: Vancomycin Consult Pharmacy 1 EA OTHER SCH (00:30)
[2017-10-06] MEDS ORDERED: CEFEPIME INJ 2,000 MG in SODIUM CHLORIDE 0.9% INJ 100 ML IV SCH (01:00)
[2017-10-06] MEDS ORDERED: VANCOMYCIN INJ 1,750 MG in SODIUM CHLORID 0.9% 500 ML INJ 500 ML IV SCH (01:00)
[2017-10-06] MEDS: CEFEPIME INJ 2,000 MG in SODIUM CHLORIDE 0.9% INJ 100 ML IV SCH ×3 (03:12→22:53)
[2017-10-06] MEDS: SODIUM CHLOR 0.9% 1000 ML INJ 1,000 ML IV SCH ×2 (03:44→19:01)
[2017-10-06] MEDS: INSULIN ASPART SUPPLEMENTAL SCALE SQ SCH ×4 (08:00→21:00)
[2017-10-06 08:10] LABS: ALBUMIN 2.3 GM/DL (3.4-5.0); ALT (GPT) 23 U/L (10-53); AST (GOT) 12 U/L (15-37); BICARBONATE 20.2 MEQ/L (21.0-32.0); BLOOD UREA NITROGEN 10 MG/DL (7-18); CALCIUM 8.5 MG/DL (8.5-10.1); CHLORIDE 107 MEQ/L (98-107); CHOLESTEROL 162 MG/DL (120-200); CREATININE 0.55 MG/DL (0.50-1.00); GLOMERULAR FILTRATION RATE 128 ML/MIN (>89); GLUCOSE,RANDOM 95 MG/DL (74-106); SODIUM (NA) 140 MEQ/L (136-145); TRIGLYCERIDES 138 MG/DL (42-150)
[2017-10-06 08:12] LABS: ALKALINE PHOSPHATASE 99 U/L (45-117); CHOLESTEROL/ HDL RATIO 7.39 RATIO; HDL CHOLESTEROL 21.9 MG/DL (40.0-60.0); LDL CHOLESTEROL 113 MG/DL (0-99); TOTAL BILIRUBIN ADULT 0.3 MG/DL (0.2-1.0); TOTAL PROTEIN 7.2 GM/DL (6.4-8.2)
[2017-10-06] MEDS: SODIUM CHLORIDE 0.9% FLUSH 10 ML FLUSH IV FLUSH SCH ×4 (09:45→20:35)
[2017-10-06] MEDS: DOCUSATE SODIUM 50 MG/SENNA 8.6 MG TAB PO SCH ×2 (09:46→20:31)
[2017-10-06] MEDS: TOPIRAMATE 100 MG TAB PO SCH ×2 (09:46→20:31)
[2017-10-06] MEDS: ACETAMINOPHEN/HYDROcodone 325 MG/10 MG TAB PO PRN ×3 (09:47→20:30)
--- NOTE | 2017-10-06 13:04 | MB ---
cc: Micha Harrington MD DATE: 10/06/2017 REQUESTING PHYSICIAN: Alexander Hernández MD REASON FOR CONSULTATION: Possible shunt infection. HISTORY OF PRESENT ILLNESS: This is a 32-year-old white female who was recently discharged from the hospital on 10/03/2017. The patient underwent revision of a ventriculoperitoneal shunt that was previously placed on 08/12/2017. The revision was on 09/19/2017. The patient was brought into the emergency department as a stroke alert. She developed headache and she was brought to the emergency department to be evaluated. The patient states that she has severe headache currently. She states that she has sharp pains all over the head. She was noted to have elevated temperature of 102 degrees. She notes that she has been having nausea and vomiting over the past couple of days and very poor appetite to the point where she has not been eating. She also notes that she has had decreased urination and urinated only 2 times since discharge from the hospital on 10/03/2017. She also notes having some chills and aches of her joints, including the elbows and the knees. She notes that she has double vision, but this has been unchanged. She has been treated for pseudotumor cerebri, and she is due to undergo ophthalmology evaluation and treatment at [facility], but that has not been scheduled. Her T-max yesterday was 102 degrees. The white blood cell count is 12.7. Heart rate when she presented was 119. The patient has been started on IV antibiotics. Blood cultures have been ordered. Neurosurgical consultation has also been ordered. MRA of the head was unremarkable. CT scan of the head noncontrast was unremarkable. MRI of the brain was unremarkable. Chest x-ray shows no acute disease. The patient denies shortness of breath. She notes that she has some back pain and also low abdominal pain and that she has had some loose stools over the past couple of days, but not diarrhea. PAST MEDICAL HISTORY: Pseudotumor cerebri status post ventriculoperitoneal shunt placement and revision, asthma, hypertension, history of seizures, cholecystectomy, hysterectomy, history of kidney stones. ALLERGIES: SULFA, AMOXICILLIN, PENICILLIN G, IBUPROFEN, KETOROLAC, PROCHLORPERAZINE, SUMATRIPTAN, TRAMADOL, LATEX. MEDICATIONS: Vancomycin, intravenous, cefepime, Yojana-Colace, Topamax, Lovenox, [place] 5 p.r.n., [place] 10 p.r.n., morphine sulfate p.r.n., aspirin. SOCIAL HISTORY: The patient is . Denies tobacco. Denies alcohol use. Denies illicit drug use. FAMILY HISTORY: Noncontributory. REVIEW OF SYSTEMS: CONSTITUTIONAL: Significant for fever and chills. HEAD, EARS, EYES, NOSE AND THROAT: Positive for diplopia. She denies difficulty swallowing or soreness of the throat. Denies neck pain or swelling. CARDIOVASCULAR: Denies chest pain or palpitation. RESPIRATORY: Denies cough or shortness of breath. GASTROINTESTINAL: Admits to nausea and vomiting and lower abdominal pain. GENITOURINARY: Denies urgency or dysuria. ENDOCRINE: Denies polyuria or polydipsia. INTEGUMENTARY: Denies skin rash or itching. MUSCULOSKELETAL: Positive for joint aches and pain. Denies muscle pain. NEUROLOGIC: Significant for headache. Denies problems with coordination. PSYCHIATRIC: Denies mood changes. PHYSICAL EXAMINATION: GENERAL: Obese female who is in no acute distress. She complains of headache. VITAL SIGNS: Temperature 100.3, BP 118/66, respirations 16, heart rate 79. HEENT: Head is atraumatic. Extraocular movements grossly intact. Pupils reactive to light. No icterus. No conjunctival erythema. Oropharynx slightly dry mucosa. No lesions visible. NECK: Supple without adenopathy. LUNGS: Clear breath sounds bilaterally. HEART: Regular S1, S2. No murmurs, rubs or gallops. ABDOMEN: Bowel sounds present, obese, soft, nontender. Incisions at the abdomen from prior surgical procedure intact and reveals no erythema. RECTAL: Not performed. EXTREMITIES: No clubbing, cyanosis or edema. SKIN: No rash. NEUROLOGIC: No focal finding. PSYCHIATRIC: The patient is calm and cooperative. LABORATORY DATA: WBC 12.7, platelets 490, 76% neutrophils, hemoglobin 11.9. Sedimentation rate 88, creatinine 0.55, BUN 10, sodium 140. Liver function tests normal. IMPRESSION: 1. Fever. Questionable etiology. The patient with leukocytosis. 2. Possible infection as source of fever. 3. Status post ventriculoperitoneal shunt revision and the patient now with headache. Rule out ventriculoperitoneal shunt infection. 4. Probable urinary tract infection as a source of fever and elevated white blood cell count. RECOMMENDATIONS: 1. Continue vancomycin. 2. Continue cefepime, which will also give good CSF coverage for potential gram-negative bacteria. 3. Follow blood cultures. 4. Monitor urine culture. 5. Follow CSF culture when obtained. 6. Monitor temperature and white blood cell count. Thank you for this consultation. Further recommendations will be given depending on results of current laboratory studies and cultures. MD PENNY Barfield/BELINDA , 12:19 PM , 01:02 PM MORRIS
[2017-10-06] MEDS ORDERED: POTASSIUM CHLORIDE 20 MEQ CONTROLLED RELEASE TAB PO ONE (14:45)
--- NOTE | 2017-10-06 14:46 | HHI.PR ---
Subjective Remarks Patient says that headache continues. She denies any chest pain or shortness of breath. Denies nausea or vomiting. Patient does report intermittent dysuria for the past 2 days Objective Vital Signs Date Time Temp Pulse Resp B/P (MAP) Pulse Ox O2 Delivery O2 Flow Rate FiO2 10/06/17 12:41 99.0 64 16 129/70 (89) 96 10/06/17 08:47 100.3 79 16 118/66 (83) 98 10/06/17 08:39 95 21 10/06/17 04:12 99.6 77 18 108/58 (75) 95 10/06/17 04:00 71 10/06/17 02:02 16 10/05/17 23:00 98.6 94 18 110/64 (79) 96 10/05/17 22:00 10/05/17 21:48 16 10/05/17 20:11 98 10/05/17 20:07 102.0 93 18 104/59 (74) 94 10/05/17 20:00 83 10/05/17 20:00 88 10/05/17 18:29 102.0 90 20 114/58 (76) 95 I/O 10/05/17 10/05/17 10/05/17 10/06/17 10/06/17 10/06/17 07:00 15:00 23:00 07:00 15:00 23:00 Intake Total 1000 ml Output Total 300 ml Balance 1000 ml -300 ml Intake IV Total 1000 ml Output Urine Total 300 ml # Voids 2 # Bowel Movements 0 1 Result Diagram: 10/05/17 1242 10/06/17 0659 Objective Remarks GENERAL: Patient lying in bed. Sleeping, wakes up for exam. Appears comfortable. SKIN: Warm and dry. Lower lumbar area with incision clean dry and intact. HEAD: Normocephalic. EYES: No scleral icterus. No injection or drainage. NECK: Supple, trachea midline. No JVD. CARDIOVASCULAR: Regular rate and rhythm without murmurs, gallops, or rubs. RESPIRATORY: Breath sounds equal bilaterally. No accessory muscle use. GASTROINTESTINAL: Abdomen soft, non-tender, nondistended. MUSCULOSKELETAL: No cyanosis, or edema. BACK: Nontender without obvious deformity. No CVA tenderness. A/P Assessment and Plan This is a 32-year-old female with history of pseudotumor cerebri status post lumbo-peritoneal shunt patient presenting with headache with left-sided weakness //Rule out CVA, likely complicated migraine-patient presenting with headache with left-sided weakness and numbness, CTA of the carotids and head unremarkable. Check an MRI, start aspirin, neurology consulted, follow-up echocardiogram and hypercoagulable workup. Continue Topamax, restart pain medications. Will give Ativan for MRI since patient is claustrophobic.ESR is elevated at 88. = MRI unremarkable = neuro following. Appreciate assistance. //Possible sepsis. Fever, leukocytosis, ESR 88. Possible shunt infection given recent surgery. Possible UTI given dysuria. Urinalysis still pending. Consult infectious disease. //Pseudotumor cerebri-status post lumbar peritoneal shunt with revision, monitor. //Leukocytosis-likely physiological stress, monitor. //Hypokalemia. 3.3. Replace and monitor. //DVT prophylaxis: SCDs, low risk Alexander Hernández MD Oct 06, 2017 14:46
--- NOTE | 2017-10-06 14:55 | EKG ---
Date Performed: 10/05/2017 Time Performed: 12:59:31 PTAGE: 32 years EKG: Sinus rhythm WITH SINUS ARRHYTHMIA NONSPECIFIC T-WAVE ABNORMALITY BORDERLINE ECG Since the PREVIOUS TRACING , no significant change noted PREVIOUS TRACIN08/05/2017 @22.18 DOCTOR: Jong Gutierrez Interpretating Date/Time 10/06/2017 14:51:42
[2017-10-06] MEDS: ASPIRIN 325 MG TAB PO SCH (15:00)
[2017-10-06] MEDS: ENOXAPARIN SODIUM 30 MG/0.3 ML SYRINGE SQ SCH (15:40)
[2017-10-06] MEDS: VANCOMYCIN INJ 1,500 MG in SODIUM CHLORID 0.9% 500 ML INJ 500 ML IV SCH ×2 (15:41→19:03)
[2017-10-06 17:03] LABS: HEMOGLOBIN A1C 5.5 % (4.3-6.0)
[2017-10-06 19:16] LABS: URINE COLOR YELLOW (YELLW/STRAW)
[2017-10-06 19:17] LABS: BILIRUBIN, URINE NEG (NEG); BLOOD, URINE SMALL (NEG); GLUCOSE,URINE NEG (NEG); KETONE, URINE 10 mg/dL (NEG); MUCUS URINE FEW /lpf (OCC); NITRITE,URINE NEG (NEG); SQUAMOUS EPITHELIAL CELL URINE 4 /hpf (0-5); URINE LEUKOCYTE ESTERASE SMALL (NEG)
[2017-10-06] MEDS: MORPHINE SULFATE 4 MG/ML INJ IV PUSH PRN (22:54)
[2017-10-07] MEDS: ACETAMINOPHEN/HYDROcodone 325 MG/10 MG TAB PO PRN ×5 (00:15→22:30)
[2017-10-07 00:44] VITALS: BP 105/59; PULSE 56; RESP 16; TEMP 97.7; O2SAT 97
[2017-10-07] MEDS: VANCOMYCIN INJ 1,500 MG in SODIUM CHLORID 0.9% 500 ML INJ 500 ML IV SCH ×2 (02:02→15:49)
[2017-10-07] MEDS: CEFEPIME INJ 2,000 MG in SODIUM CHLORIDE 0.9% INJ 100 ML IV SCH ×3 (02:02→21:54)
[2017-10-07] MEDS: MORPHINE SULFATE 4 MG/ML INJ IV PUSH PRN (02:28)
--- NOTE | 2017-10-07 07:38 | HHI.PR ---
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 WIth recent fever, leukocytosis--r/o solo musician infection. R/o pfo. r/o hypercoagulable state. Plan Lumbar puncture--to r/o infection and also check opening p HERBERT f/u hypercoag labs Diagnosis/Plan: Subjective Subjective Comments No acute events reported still with diffuse headache. Left sided weakness improving Active Medications Current Medications Medications (Trade) Dose Ordered Sig/Jd Route Start Time Stop Time Status Last Admin (NS Flush) 2 ml BID IV FLUSH 10/05/17 21:00 10/05/17 21:48 (NS Flush) 2 ml UNSCH PRN IV FLUSH 10/05/17 13:45 Sodium Chloride 1,000 ml @ 70 mls/hr [id number] IV 10/05/17 13:36 10/06/17 19:01 (NovoLOG SUPPLEMENTAL SCALE) 1 ACHS SQ 10/05/17 17:00 (D50w (Vial) Inj) 50 ml UNSCH PRN IV PUSH 10/05/17 13:45 (Glucagon Inj) 1 mg UNSCH PRN OTHER 10/05/17 13:45 (NS Flush) 2 ml UNSCH PRN IV FLUSH 10/05/17 16:00 (NS Flush) 2 ml BID IV FLUSH 10/05/17 21:00 (Tylenol) 650 mg Q4H PRN PO 10/05/17 16:00 (Zofran Inj) 4 mg Q6H PRN IVP 10/05/17 16:00 (Narcan Inj) 0.4 mg UNSCH PRN IV PUSH 10/05/17 16:00 (Yojana-Colace) 1 tab BID PO 10/05/17 21:00 10/06/17 20:31 (Milk Of Magnesia Liq) 30 ml Q12H PRN PO 10/05/17 16:00 (Senokot) 17.2 mg Q12H PRN PO 10/05/17 16:00 (Dulcolax Supp) 10 mg DAILY PRN RECTAL 10/05/17 16:00 (Lactulose Liq) 30 ml DAILY PRN PO 10/05/17 16:00 ([place] 5-325 Mg) 1 tab Q4H PRN PO 10/05/17 16:00 10/06/17 00:48 ([place] 10-325 Mg) 1 tab Q4H PRN PO 10/05/17 16:00 10/07/17 00:15 (Morphine Inj) 4 mg Q3H PRN IV PUSH 10/05/17 16:00 10/07/17 02:28 (Narcan Inj) 0.4 mg UNSCH PRN IV PUSH 10/05/17 16:00 (Topamax) 100 mg BID PO 10/05/17 21:00 10/06/17 20:31 Pharmacy Profile Note 0 ml @ 0 mls/hr UNSCH OTHER 10/06/17 00:30 Cefepime HCl 2000 mg/Sodium Chloride 100 ml @ 200 mls/hr Q8H IV 10/06/17 03:00 10/07/17 02:02 Vancomycin HCl 1500 mg/Sodium Chloride 515 ml @ 257.5 mls/ hr Q12H IV 10/06/17 15:00 10/07/17 02:02 ([facility] Ordered Lab Info) SPECIFIC LAB TO BE ... ONCE ONCE .XX 10/07/17 14:45 10/07/17 14:46 Allergies Allergies Coded Allergies Sulfa (Sulfonamide Antibiotics) (Verified Allergy, Severe, RASH, 10/05/17) amoxicillin (Verified Allergy, Severe, Anaphylaxis, 10/05/17) ketorolac (Verified Allergy, Severe, Anaphylaxis, 10/05/17) ibuprofen (Verified Allergy, Intermediate, HIVES, FACIAL SWELLING., 10/05/17) tramadol (Verified Allergy, Intermediate, HIVES, 10/05/17) latex (Verified Allergy, Unknown, 10/05/17) penicillin G (Verified Allergy, Unknown, HIVES, 10/05/17) prochlorperazine (Verified Allergy, Unknown, HIVES, 10/05/17) sumatriptan (Verified Adverse Reaction, Severe, VOMITING PASSED OUT, 10/05/17) Review of Systems All other ROS: ROS reviewed as documented in chart Exam I&O / VS Vital Signs Date Time Temp Pulse Resp B/P (MAP) Pulse Ox O2 Delivery O2 Flow Rate FiO2 10/07/17 03:57 18 10/07/17 03:57 18 10/07/17 00:44 97.7 56 16 105/59 (74) 97 10/06/17 20:34 98.3 66 16 102/57 (72) 97 10/06/17 16:17 98.7 70 18 118/60 (79) 97 10/06/17 12:41 99.0 64 16 129/70 (89) 96 10/06/17 08:47 100.3 79 16 118/66 (83) 98 10/06/17 08:39 95 21 General: Alert and Oriented, No acute distress Eye: EOMI Respiratory: Non-labored respirations Cardiology: Normal rate Musculoskeletal: ROM Neurologic: Alert, Oriented, Normal sensory, Normal motor, No focal defects Psychiatric: Cooperative, Appropriate mood & affect, Normal judgement Exam Comments alert, speech normal CN intact MOTOR 4/5 LUE, 5/5 RUE Objective Micro and Labs Laboratory Tests Test 10/06/17 16:55 10/07/17 07:23 Urine Color YELLOW Urine Turbidity HAZY Urine pH 7.0 Urine Specific [place] 1.015 Urine Protein TRACE Urine Glucose (UA) NEG Urine Ketones 10 Urine Occult Blood SMALL Urine Nitrite NEG Urine Bilirubin NEG Urine Urobilinogen 2.0 Urine Leukocyte Esterase SMALL Urine RBC 7 Urine WBC 4 Urine Squamous Epithelial Cells 4 Urine Mucus FEW Microscopic Urinalysis Comment CULT NOT INDICATED Urine Opiates Screen POS Urine Barbiturates Screen NEG Urine Amphetamines Screen NEG Urine Benzodiazepines Screen NEG Urine Cocaine Screen NEG Urine Cannabinoids Screen NEG Date/Time Source Procedure Growth Status 10/06/17 14:22 Blood Peripheral Aerobic Blood Culture Pending Received 10/06/17 14:22 Blood Peripheral Anaerobic Blood Culture Pending Received Antonio Haddad MD PhD Oct 07, 2017 07:38
[2017-10-07 07:46] LABS: AUTOMATED NEUTROPHIL # 4.9 TH/MM3 (1.8-7.7); BASOPHIL % 0.4 % (0.0-2.0); EOSINOPHIL # 0.3 TH/MM3 (0-0.4); EOSINOPHIL % 2.8 % (0.0-4.0); HEMATOCRIT 30.7 % (35.0-46.0); HEMOGLOBIN 9.8 GM/DL (11.6-15.3); MEAN CELL VOLUME 81.8 FL (80.0-100.0); MEAN CORPUSCULAR HGB CONC 31.8 % (32.0-36.0); MEAN PLATELET VOLUME 7.7 FL (7.0-11.0); MONO % 7.4 % (0.0-8.0); MONOCYTE # 0.7 TH/MM3 (0-0.9); NEUT % 49.4 % (16.0-70.0); PLATELET COUNT 340 TH/MM3 (150-450); RED BLOOD COUNT 3.75 MIL/MM3 (4.00-5.30); RED CELL DISTRIBUTION WIDTH 13.6 % (11.6-17.2); WHITE BLOOD COUNT 9.9 TH/MM3 (4.0-11.0)
[2017-10-07 07:55] LABS: BICARBONATE 21.3 MEQ/L (21.0-32.0); CALCIUM 8.1 MG/DL (8.5-10.1); CREATININE 0.51 MG/DL (0.50-1.00); MAGNESIUM 2.1 MG/DL (1.5-2.5); PHOSPHORUS 3.4 MG/DL (2.5-4.9)
[2017-10-07 08:00] VITALS: BP 101/57; PULSE 58; RESP 18; TEMP 98.5; O2SAT 98
[2017-10-07] MEDS: INSULIN ASPART SUPPLEMENTAL SCALE SQ SCH ×4 (08:00→21:53)
--- NOTE | 2017-10-07 08:29 | PD.CONS ---
HPI Service cardiology Consult Requested By Reason for Consult request HERBERT Primary Care Physician Unknown History of Present Illness 32 yo F with no prior cardiac history, pseudotumor cerebri and recent admission for lumboperitoneal shunt revision (discharged on 10/02/17) who presented with DELCID and L sided hemiparesis. We have been consulted to consider a HERBERT. She admits to having difficulty taking a deep breath with occasional palpitations. She continues to experience a persistent occipital and frontal DELCID with L-sided numbness to arm and leg. No chest pain. EKG shows normal sinus rhythm, troponin neg and vital signs stable. Head and neck imaging have been unremarkable. (Gayathri Johns) Review of Systems Consitutional: DENIES: Fever, Weight gain Respiratory: COMPLAINS OF: Shortness of breath, DENIES: Cough, Snoring, Wheezing, Sputum production Cardiovascular: COMPLAINS OF: See HPI, Chest pain, DENIES: Palpitations, Syncope, Tachycardia Gastrointestinal: COMPLAINS OF: Nausea, Vomiting, DENIES: Change in bowel habits, Reflux, Bloody stools, Melena (Gayathri Johns) Past Family Social History Allergies: Coded Allergies: Sulfa (Sulfonamide Antibiotics) (Verified Allergy, Severe, RASH, 10/05/17) amoxicillin (Verified Allergy, Severe, Anaphylaxis, 10/05/17) ketorolac (Verified Allergy, Severe, Anaphylaxis, 10/05/17) anaphylaxis per patient ibuprofen (Verified Allergy, Intermediate, HIVES, FACIAL SWELLING., ) tramadol (Verified Allergy, Intermediate, HIVES, 10/05/17) hives, sewll up latex (Verified Allergy, Unknown, 10/05/17) penicillin G (Verified Allergy, Unknown, HIVES, 10/05/17) prochlorperazine (Verified Allergy, Unknown, HIVES, 10/05/17) sumatriptan (Verified Adverse Reaction, Severe, VOMITING PASSED OUT, ) Past Medical History History of idiopathic intracranial hypertension History of MRSA skin infections. Kidney stones Asthma History of migraine headaches Past Surgical History Cholecystectomy Hysterectomy Renal stent Lumboperitoneal shunt status post revision Reported Medications Reported Meds & Active Scripts Active Dilaudid (Hydromorphone HCl) 2 Mg Tab 2 Mg PO Q6H PRN Zofran Odt (Ondansetron Odt) 4 Mg Tab 4 Mg SL Q8HR PRN 7 Days Walker with Front Wheels (Device) 1 Mis Mis Ea .XX DIRECTED Topamax (Topiramate) 50 Mg Tab 100 Mg PO BID 30 Days Reported [place] (Hydrocodone-Acetaminophen) 10-325 Mg Tab 1 Tab PO Q6H PRN Active Ordered Medications Current Medications Medications (Trade) Dose Ordered Sig/Jd Route Start Time Stop Time Status Last Admin (NS Flush) 2 ml BID IV FLUSH 10/05/17 21:00 10/05/17 21:48 (NS Flush) 2 ml UNSCH PRN IV FLUSH 10/05/17 13:45 Sodium Chloride 1,000 ml @ 70 mls/hr [id number] IV 10/05/17 13:36 10/06/17 19:01 (NovoLOG SUPPLEMENTAL SCALE) 1 ACHS SQ 10/05/17 17:00 (D50w (Vial) Inj) 50 ml UNSCH PRN IV PUSH 10/05/17 13:45 (Glucagon Inj) 1 mg UNSCH PRN OTHER 10/05/17 13:45 (NS Flush) 2 ml UNSCH PRN IV FLUSH 10/05/17 16:00 (NS Flush) 2 ml BID IV FLUSH 10/05/17 21:00 (Tylenol) 650 mg Q4H PRN PO 10/05/17 16:00 (Zofran Inj) 4 mg Q6H PRN IVP 10/05/17 16:00 (Narcan Inj) 0.4 mg UNSCH PRN IV PUSH 10/05/17 16:00 (Yojana-Colace) 1 tab BID PO 10/05/17 21:00 10/06/17 20:31 (Milk Of Magnesia Liq) 30 ml Q12H PRN PO 10/05/17 16:00 (Senokot) 17.2 mg Q12H PRN PO 10/05/17 16:00 (Dulcolax Supp) 10 mg DAILY PRN RECTAL 10/05/17 16:00 (Lactulose Liq) 30 ml DAILY PRN PO 10/05/17 16:00 ([place] 5-325 Mg) 1 tab Q4H PRN PO 10/05/17 16:00 10/06/17 00:48 ([place] 10-325 Mg) 1 tab Q4H PRN PO 10/05/17 16:00 10/07/17 00:15 (Morphine Inj) 4 mg Q3H PRN IV PUSH 10/05/17 16:00 10/07/17 02:28 (Narcan Inj) 0.4 mg UNSCH PRN IV PUSH 10/05/17 16:00 (Topamax) 100 mg BID PO 10/05/17 21:00 10/06/17 20:31 Pharmacy Profile Note 0 ml @ 0 mls/hr UNSCH OTHER 10/06/17 00:30 Cefepime HCl 2000 mg/Sodium Chloride 100 ml @ 200 mls/hr Q8H IV 10/06/17 03:00 10/07/17 02:02 Vancomycin HCl 1500 mg/Sodium Chloride 515 ml @ 257.5 mls/ hr Q12H IV 10/06/17 15:00 10/07/17 02:02 ([facility] Ordered Lab Info) SPECIFIC LAB TO BE ... ONCE ONCE .XX 10/07/17 14:45 10/07/17 14:46 Family History Negative cardiac disease Social History Past Medical History History of idiopathic intracranial hypertension History of MRSA skin infections. Kidney stones Smokes one half pack cigarettes per day No alcohol Occasional marijuana (Gayathri Johns) Physical Exam Vital Signs Vital Signs Date Time Temp Pulse Resp B/P (MAP) Pulse Ox O2 Delivery O2 Flow Rate FiO2 10/07/17 03:57 18 10/07/17 03:57 18 10/07/17 00:44 97.7 56 16 105/59 (74) 97 10/06/17 20:34 98.3 66 16 102/57 (72) 97 10/06/17 16:17 98.7 70 18 118/60 (79) 97 10/06/17 12:41 99.0 64 16 129/70 (89) 96 10/06/17 08:47 100.3 79 16 118/66 (83) 98 10/06/17 08:39 95 21 Physical Exam GENERAL: obese WF SKIN: Warm and dry. HEAD: Atraumatic. Normocephalic. EYES: Pupils equal and round. No scleral icterus. ENT: No nasal bleeding or discharge. NECK: Trachea midline. No JVD. CARDIOVASCULAR: Regular rate and rhythm. no murmurs RESPIRATORY: No accessory muscle use. Clear to auscultation. Breath sounds equal bilaterally. GASTROINTESTINAL: Abdomen soft, non-tender, nondistended. MUSCULOSKELETAL: Extremities without clubbing, cyanosis, or edema. No obvious deformities. NEUROLOGICAL: Awake and alert. No obvious cranial nerve deficits. Normal speech. PSYCHIATRIC: Appropriate mood and affect; insight and judgment normal. Laboratory Laboratory Tests Test 10/06/17 16:55 10/07/17 07:23 Urine Color YELLOW Urine Turbidity HAZY Urine pH 7.0 Urine Specific [place] 1.015 Urine Protein TRACE Urine Glucose (UA) NEG Urine Ketones 10 Urine Occult Blood SMALL Urine Nitrite NEG Urine Bilirubin NEG Urine Urobilinogen 2.0 Urine Leukocyte Esterase SMALL Urine RBC 7 Urine WBC 4 Urine Squamous Epithelial Cells 4 Urine Mucus FEW Microscopic Urinalysis Comment CULT NOT INDICATED Urine Opiates Screen POS Urine Barbiturates Screen NEG Urine Amphetamines Screen NEG Urine Benzodiazepines Screen NEG Urine Cocaine Screen NEG Urine Cannabinoids Screen NEG Blood Urea Nitrogen 9 Creatinine 0.51 Random Glucose 96 Albumin 2.0 Calcium Level 8.1 Phosphorus Level 3.4 Magnesium Level 2.1 Sodium Level 143 Potassium Level 3.5 Chloride Level 113 Carbon Dioxide Level 21.3 Anion Gap 9 Estimat Glomerular Filtration Rate 140 Date/Time Source Procedure Growth Status 10/06/17 14:22 Blood Peripheral Aerobic Blood Culture Pending Received 10/06/17 14:22 Blood Peripheral Anaerobic Blood Culture Pending Received (Gayathri Johns) Result Diagram: 10/05/17 1242 10/07/17 0723 Imaging Last 72 hours Impressions Neck CTA 10/05/17 1238 Signed Impressions: CONCLUSION: 1. Negative CTA carotids. Head CTA 10/05/17 1238 Signed Impressions: CONCLUSION: 1. Unremarkable CTA brain. Head Magnetic Resonance Angiography 10/05/17 0000 Signed Impressions: CONCLUSION: 1. Unremarkable MRA brain. Head CT 10/05/17 0000 Signed Impressions: CONCLUSION: 1. Negative CT Head non contrast. Chest X-Ray 10/05/17 0000 Signed Impressions: CONCLUSION: No active disease. Brain MRI 10/05/17 0000 Signed Impressions: CONCLUSION: 1. Unremarkable MRI brain for age. (Gayathri Johns) Assessment and Plan Problem List: (1) Acute focal neurological deficit ICD Codes: R29.818 - Other symptoms and signs involving the nervous system Status: Acute (2) Headache ICD Codes: R51 - Headache Status: Acute Assessment and Plan 32 yo F with no prior cardiac history, pseudotumor cerebri and recent admission for lumboperitoneal shunt revision (discharged on 10/02/17) who presented with DELCID and L sided hemiparesis. We have been consulted to consider a HERBERT. She admits to having difficulty taking a deep breath with occasional palpitations. She continues to experience a persistent occipital and frontal DELCID with L-sided numbness to arm and leg. No chest pain. EKG shows normal sinus rhythm, troponin neg and vital signs stable. Head and neck imaging have been unremarkable. L hemiparesis: hemiplegic migraine vs. CVA will evaluate for PFO this morning with HERBERT. 2D echo pending. neurosurgery and ID also following. (Gayathri Johns) Assessment and Plan HERBERT - negative for cardioembolic source. no JARED clot. No PFO. no valvular abnormalities will sign off call with further questions (Jaime Fleming MD) Gayathri Johns Oct 07, 2017 08:29 Jaime Fleming MD Oct 07, 2017 11:38
[2017-10-07] MEDS: SODIUM CHLORIDE 0.9% FLUSH 10 ML FLUSH IV FLUSH SCH ×4 (09:15→21:53)
[2017-10-07] MEDS: TOPIRAMATE 100 MG TAB PO SCH ×2 (09:15→21:53)
[2017-10-07] MEDS: DOCUSATE SODIUM 50 MG/SENNA 8.6 MG TAB PO SCH ×2 (09:15→21:53)
--- NOTE | 2017-10-07 10:27 | HHI.PR ---
Subjective Remarks Patient reports that her headache is somewhat improved today. Denies any chest pain or shortness of breath. Reports nausea is better. Objective Vital Signs Date Time Temp Pulse Resp B/P (MAP) Pulse Ox O2 Delivery O2 Flow Rate FiO2 10/07/17 08:00 98.5 58 18 101/57 (72) 98 10/07/17 03:57 18 10/07/17 03:57 18 10/07/17 00:44 97.7 56 16 105/59 (74) 97 10/06/17 20:34 98.3 66 16 102/57 (72) 97 10/06/17 16:17 98.7 70 18 118/60 (79) 97 10/06/17 12:41 99.0 64 16 129/70 (89) 96 I/O 10/06/17 10/06/17 10/06/17 10/07/17 10/07/17 10/07/17 07:00 15:00 23:00 07:00 15:00 23:00 Intake Total 1200 ml 100 ml Output Total 300 ml 1800 ml Balance -300 ml -600 ml 100 ml Intake Oral 1200 ml 100 ml Output Urine Total 300 ml 1800 ml # Voids 2 # Bowel Movements 0 1 1 Result Diagram: 10/07/17 0723 10/07/17 0723 Objective Remarks GENERAL: Patient lying in bed. Awake, alert. Appears comfortable. SKIN: Warm and dry. Lower lumbar area with incision clean dry and intact. HEAD: Normocephalic. EYES: No scleral icterus. No injection or drainage. NECK: Supple, trachea midline. No JVD. CARDIOVASCULAR: Regular rate and rhythm without murmurs, gallops, or rubs. RESPIRATORY: Breath sounds equal bilaterally. No accessory muscle use. GASTROINTESTINAL: Abdomen soft, non-tender, nondistended. Normal incisions do not appear infected. MUSCULOSKELETAL: No cyanosis, or edema. BACK: Nontender without obvious deformity. No CVA tenderness. A/P Assessment and Plan This is a 32-year-old female with history of pseudotumor cerebri status post lumbo-peritoneal shunt patient presenting with headache with left-sided weakness //Rule out CVA, likely complicated migraine-patient presenting with headache with left-sided weakness and numbness, CTA of the carotids and head unremarkable. Check an MRI, start aspirin, neurology consulted, follow-up echocardiogram and hypercoagulable workup. Continue Topamax, restart pain medications. Will give Ativan for MRI since patient is claustrophobic.ESR is elevated at 88. = MRI unremarkable = neuro following. Appreciate assistance. = Follow-up results of transesophageal echocardiogram. Appreciate neurology and cardiology assistance. //Possible sepsis. Fever, leukocytosis, ESR 88. Possible shunt infection given recent surgery. Possible UTI given dysuria. Urinalysis still pending. Consult infectious disease. = Appreciate ID assistance. Continue to follow cultures. Urinalysis does not appear infectious. //Pseudotumor cerebri-status post lumbar peritoneal shunt with revision, monitor. //Leukocytosis-likely physiological stress, monitor. =Resolved. //Hypokalemia. 3.3. Replace and monitor. =Resolved after placement. Continue to monitor //DVT prophylaxis: SCDs, low risk Discharge Planning Pending clearance by ID and neurology. Alexander Hernández MD Oct 07, 2017 10:27
[2017-10-07] MEDS ORDERED: NURSING INFORMATION XX PRN (11:45)
[2017-10-07 13:00] VITALS: BP 120/71; PULSE 53; RESP 18; TEMP 98.2; O2SAT 99
[2017-10-07] MEDS: SODIUM CHLOR 0.9% 1000 ML INJ 1,000 ML IV SCH (13:14)
[2017-10-07] MEDS ORDERED: PHARMACY ORDERED LAB ONE (14:45)
--- NOTE | 2017-10-07 14:47 | HHI.IDPN ---
Note Infectious Disease Note Patient continues to have headache. States that it has eased up some. Says she feels little improvement. Headache now located mostly on the left side of the head at the frontal aspect. Reports nausea. Afebrile. Analysis was unremarkable. Blood culture no growth. Patient refused lumbar puncture because she wants to be completely sedated for the procedure. 32-year-old white female who was recently discharged from the hospital on 10/03/2017. The patient underwent revision of a ventriculoperitoneal shunt that was previously placed on 08/12/2017. The revision was on 09/19/2017. The patient was brought into the emergency department as a stroke alert. She developed headache and she was brought to the emergency department to be evaluated. She had elevated temperature of 102 degrees. She notes that she has been having nausea and vomiting over the past couple of days and very poor appetite to the point where she has not been eating. She notes that she has double vision, but this has been unchanged. PAST MEDICAL HISTORY: Pseudotumor cerebri status post ventriculoperitoneal shunt placement and revision, asthma, hypertension, history of seizures, cholecystectomy, hysterectomy, history of kidney stones. ALLERGIES: SULFA, AMOXICILLIN, PENICILLIN G, IBUPROFEN, KETOROLAC, PROCHLORPERAZINE, SUMATRIPTAN, TRAMADOL, LATEX. MEDICATIONS: Current Medications Medications (Trade) Dose Ordered Sig/Jd Route PRN Reason Start Time Stop Time Status Last Admin Dose Admin Sodium Chloride (NS Flush) 2 ml BID IV FLUSH 10/05/17 21:00 10/07/17 09:15 Sodium Chloride (NS Flush) 2 ml UNSCH PRN IV FLUSH FLUSH AFTER USING IV ACCESS 10/05/17 13:45 Sodium Chloride 1,000 ml @ 70 mls/hr [id number] IV 10/05/17 13:36 10/07/17 13:14 Insulin Aspart (NovoLOG SUPPLEMENTAL SCALE) 1 ACHS SQ 10/05/17 17:00 Dextrose (D50w (Vial) Inj) 50 ml UNSCH PRN IV PUSH HYPOGLYCEMIA-SEE COMMENTS 10/05/17 13:45 Glucagon (Glucagon Inj) 1 mg UNSCH PRN OTHER HYPOGLYCEMIA-SEE COMMENTS 10/05/17 13:45 Sodium Chloride (NS Flush) 2 ml UNSCH PRN IV FLUSH FLUSH AFTER USING IV ACCESS 10/05/17 16:00 Sodium Chloride (NS Flush) 2 ml BID IV FLUSH 10/05/17 21:00 Acetaminophen (Tylenol) 650 mg Q4H PRN PO TEMP > 100.4 10/05/17 16:00 Ondansetron HCl (Zofran Inj) 4 mg Q6H PRN IVP NAUSEA OR VOMITING 10/05/17 16:00 Naloxone HCl (Narcan Inj) 0.4 mg UNSCH PRN IV PUSH SEE LABEL COMMENTS 10/05/17 16:00 Senna/Docusate Sodium (Yojana-Colace) 1 tab BID PO 10/05/17 21:00 10/07/17 09:15 Magnesium Hydroxide (Milk Of Magnesia Liq) 30 ml Q12H PRN PO Mild constipation 10/05/17 16:00 Sennosides (Senokot) 17.2 mg Q12H PRN PO Moderate constipation 10/05/17 16:00 Bisacodyl (Dulcolax Supp) 10 mg DAILY PRN RECTAL SEVERE CONSITIPATION 10/05/17 16:00 Lactulose (Lactulose Liq) 30 ml DAILY PRN PO SEVERE CONSITIPATION 10/05/17 16:00 Acetaminophen/ Hydrocodone Bitart ([place] 5-325 Mg) 1 tab Q4H PRN PO PAIN SCALE 3 TO 5 10/05/17 16:00 10/06/17 00:48 Acetaminophen/ Hydrocodone Bitart ([place] 10-325 Mg) 1 tab Q4H PRN PO PAIN SCALE 6 TO 10 10/05/17 16:00 10/07/17 13:13 Morphine Sulfate (Morphine Inj) 4 mg Q3H PRN IV PUSH BREAKTHROUGH PAIN 10/05/17 16:00 10/07/17 02:28 Naloxone HCl (Narcan Inj) 0.4 mg UNSCH PRN IV PUSH SEE LABEL COMMENTS 10/05/17 16:00 Topiramate (Topamax) 100 mg BID PO 10/05/17 21:00 10/07/17 09:15 Pharmacy Profile Note 0 ml @ 0 mls/hr UNSCH OTHER 10/06/17 00:30 Cefepime HCl 2000 mg/Sodium Chloride 100 ml @ 200 mls/hr Q8H IV 10/06/17 03:00 10/07/17 13:14 Vancomycin HCl 1500 mg/Sodium Chloride 515 ml @ 257.5 mls/ hr Q12H IV 10/06/17 15:00 10/07/17 02:02 Miscellaneous Information ([facility] [place] [facility] Ordered Lab Info) SPECIFIC LAB TO BE SCOT... ONCE ONCE .XX 10/07/17 14:45 10/07/17 14:46 Miscellaneous Information ([facility] [place] [facility] Information) 1 UNSCH PRN XX SEE LABEL COMMENTS 10/07/17 11:45 10/10/17 11:44 SOCIAL HISTORY: The patient is . Denies tobacco. Denies alcohol use. Denies illicit drug use. Objective: Vital Signs Date Time Temp Pulse Resp B/P (MAP) Pulse Ox O2 Delivery O2 Flow Rate FiO2 10/07/17 08:00 98.5 58 18 101/57 (72) 98 10/07/17 03:57 18 10/07/17 03:57 18 10/07/17 00:44 97.7 56 16 105/59 (74) 97 10/06/17 20:34 98.3 66 16 102/57 (72) 97 10/06/17 16:17 98.7 70 18 118/60 (79) 97 Laboratory Tests Test 10/07/17 07:23 White Blood Count 9.9 TH/MM3 Red Blood Count 3.75 MIL/MM3 Hemoglobin 9.8 GM/DL Hematocrit 30.7 % Mean Corpuscular Volume 81.8 FL Mean Corpuscular Hemoglobin 26.0 PG Mean Corpuscular Hemoglobin Concent 31.8 % Red Cell Distribution Width 13.6 % Platelet Count 340 TH/MM3 Mean Platelet Volume 7.7 FL Neutrophils (%) (Auto) 49.4 % Lymphocytes (%) (Auto) 40.0 % Monocytes (%) (Auto) 7.4 % Eosinophils (%) (Auto) 2.8 % Basophils (%) (Auto) 0.4 % Neutrophils # (Auto) 4.9 TH/MM3 Lymphocytes # (Auto) 4.0 TH/MM3 Monocytes # (Auto) 0.7 TH/MM3 Eosinophils # (Auto) 0.3 TH/MM3 Basophils # (Auto) 0.0 TH/MM3 CBC Comment AUTO DIFF Differential Comment AUTO DIFF CONFIRMED Platelet Estimate NORMAL Platelet Morphology Comment CLUMPED Laboratory Tests Test 10/06/17 06:59 10/07/17 07:23 Blood Urea Nitrogen 10 MG/DL 9 MG/DL Creatinine 0.55 MG/DL 0.51 MG/DL Random Glucose 95 MG/DL 96 MG/DL Total Protein 7.2 GM/DL Albumin 2.3 GM/DL 2.0 GM/DL Calcium Level 8.5 MG/DL 8.1 MG/DL Alkaline Phosphatase 99 U/L Aspartate Amino Transf (AST/SGOT) 12 U/L Alanine Aminotransferase (ALT/SGPT) 23 U/L Total Bilirubin 0.3 MG/DL Sodium Level 140 MEQ/L 143 MEQ/L Potassium Level 3.3 MEQ/L 3.5 MEQ/L Chloride Level 107 MEQ/L 113 MEQ/L Carbon Dioxide Level 20.2 MEQ/L 21.3 MEQ/L Anion Gap 13 MEQ/L 9 MEQ/L Estimat Glomerular Filtration Rate 128 ML/MIN 140 ML/MIN Triglycerides Level 138 MG/DL Cholesterol Level 162 MG/DL LDL Cholesterol 113 MG/DL HDL Cholesterol 21.9 MG/DL Cholesterol/HDL Ratio 7.39 RATIO Phosphorus Level 3.4 MG/DL Magnesium Level 2.1 MG/DL Microbiology Date/Time Source Procedure Growth Status 10/06/17 14:22 Blood Peripheral Aerobic Blood Culture - Preliminary NO GROWTH IN 1 DAY Resulted 10/06/17 14:22 Blood Peripheral Anaerobic Blood Culture - Preliminary NO GROWTH IN 1 DAY Resulted 10/06/17 14:16 Blood Peripheral Aerobic Blood Culture - Preliminary NO GROWTH IN 1 DAY Resulted 10/06/17 14:16 Blood Peripheral Anaerobic Blood Culture - Preliminary NO GROWTH IN 1 DAY Resulted Imaging Neck CTA 10/05/17 1238 Signed Impressions: CONCLUSION: 1. Negative CTA carotids. Head CTA 10/05/17 1238 Signed Impressions: CONCLUSION: 1. Unremarkable CTA brain. Head Magnetic Resonance Angiography 10/05/17 Signed Impressions: CONCLUSION: 1. Unremarkable MRA brain. Head CT 10/05/17 Signed Impressions: CONCLUSION: 1. Negative CT Head non contrast. Chest X-Ray 10/05/17 Signed Impressions: CONCLUSION: No active disease. Brain MRI 10/05/17 Signed Impressions: CONCLUSION: 1. Unremarkable MRI brain for age. PHYSICAL EXAMINATION: GENERAL: No acute distress. HEENT: Head is atraumatic. Extraocular movements grossly intact. Pupils reactive to light. No icterus. No conjunctival erythema. Oropharynx slightly dry mucosa. No lesions visible. NECK: Supple without adenopathy. LUNGS: Clear breath sounds. HEART: Regular S1, S2. No murmurs, rubs or gallops. ABDOMEN: Bowel sounds present, obese, soft, nontender. Incisions at the abdomen from prior surgical procedure intact and reveals no erythema. EXTREMITIES: No clubbing, cyanosis or edema. SKIN: No rash. NEUROLOGIC: Decreased strength on the left upper and lower extremity. PSYCHIATRIC: Calm and cooperative. IMPRESSION: 1. Fever. Questionable etiology. No clear source. Leukocytosis improved. Possible infection as source of fever. Cultures negative so far. 2. Status post recent ventriculoperitoneal shunt revision and the patient now with headache. Rule out ventriculoperitoneal shunt infection. RECOMMENDATIONS: 1. Continue vancomycin. 2. Continue cefepime, which will also give good CSF coverage for potential gram-negative bacteria. 3. Follow blood cultures. 4. Follow CSF culture when obtained. I discussed the need for lumbar puncture with the patient And she was reluctant to have the procedure. After prolonged discussion she is now agreeable to having a lumbar puncture. RN to notify radiology to proceed with procedure. 5. Monitor temperature and white blood cell count. Micha Harrington MD Oct 07, 2017 14:47
[2017-10-07 16:00] VITALS: BP 120/71; PULSE 58; RESP 18; TEMP 98.5; O2SAT 99
[2017-10-07 20:51] VITALS: BP 119/74; PULSE 60; RESP 16; TEMP 98.2; O2SAT 96
[2017-10-08 00:07] VITALS: BP 108/58; PULSE 51; RESP 17; TEMP 97.9; O2SAT 96
[2017-10-08] MEDS: SODIUM CHLOR 0.9% 1000 ML INJ 1,000 ML IV SCH ×2 (01:45→13:06)
[2017-10-08] MEDS: CEFEPIME INJ 2,000 MG in SODIUM CHLORIDE 0.9% INJ 100 ML IV SCH ×3 (03:55→19:30)
[2017-10-08] MEDS: VANCOMYCIN INJ 1,500 MG in SODIUM CHLORID 0.9% 500 ML INJ 500 ML IV SCH ×2 (04:45→17:27)
[2017-10-08] MEDS: ACETAMINOPHEN/HYDROcodone 325 MG/10 MG TAB PO PRN ×4 (04:45→20:51)
[2017-10-08 04:51] VITALS: BP 124/71; PULSE 61; RESP 18; TEMP 98.1; O2SAT 98
[2017-10-08 05:31] LABS: AUTOMATED NEUTROPHIL # 3.2 TH/MM3 (1.8-7.7); BASOPHIL % 0.7 % (0.0-2.0); EOSINOPHIL # 0.2 TH/MM3 (0-0.4); EOSINOPHIL % 3.5 % (0.0-4.0); HEMATOCRIT 30.7 % (35.0-46.0); HEMOGLOBIN 10.1 GM/DL (11.6-15.3); LYMPH % 43.3 % (9.0-44.0); LYMPHOCYTE # 3.1 TH/MM3 (1.0-4.8); MEAN CELL VOLUME 81.3 FL (80.0-100.0); MEAN CORPUSCULAR HEMOGLOBIN 26.7 PG (27.0-34.0); MEAN CORPUSCULAR HGB CONC 32.9 % (32.0-36.0); MEAN PLATELET VOLUME 7.6 FL (7.0-11.0); MONO % 7.5 % (0.0-8.0); MONOCYTE # 0.5 TH/MM3 (0-0.9); PLATELET COUNT 408 TH/MM3 (150-450); RED BLOOD COUNT 3.78 MIL/MM3 (4.00-5.30); RED CELL DISTRIBUTION WIDTH 13.7 % (11.6-17.2); WHITE BLOOD COUNT 7.1 TH/MM3 (4.0-11.0)
[2017-10-08 05:43] LABS: ALBUMIN 2.3 GM/DL (3.4-5.0); CALCIUM 8.4 MG/DL (8.5-10.1); CREATININE 0.6 MG/DL (0.50-1.00); MAGNESIUM 2.1 MG/DL (1.5-2.5)
[2017-10-08 05:44] LABS: PHOSPHORUS 4.2 MG/DL (2.5-4.9)
[2017-10-08] MEDS ORDERED: LORazepam 2 MG/ML VIAL IV PUSH PRN (06:00)
[2017-10-08 07:45] VITALS: BP 112/68; PULSE 84; RESP 18; TEMP 97.8; O2SAT 99
[2017-10-08] MEDS: INSULIN ASPART SUPPLEMENTAL SCALE SQ SCH ×4 (08:00→21:00)
[2017-10-08] MEDS: SODIUM CHLORIDE 0.9% FLUSH 10 ML FLUSH IV FLUSH SCH ×4 (09:00→20:50)
--- NOTE | 2017-10-08 09:24 | HHI.PR ---
Subjective Remarks Patient says that headache continues to improve. Denies any chest pain or shortness of breath. Had some nausea which has resolved. No vomiting. Denies constipation. Objective Vital Signs Date Time Temp Pulse Resp B/P (MAP) Pulse Ox O2 Delivery O2 Flow Rate FiO2 10/08/17 07:45 97.8 84 18 112/68 (83) 99 10/08/17 05:45 14 10/08/17 04:51 98.1 61 18 124/71 (88) 98 10/08/17 00:07 97.9 51 17 108/58 (75) 96 10/07/17 20:51 98.2 60 16 119/74 (89) 96 10/07/17 16:00 98.5 58 18 120/71 (87) 99 10/07/17 13:00 98.2 53 18 120/71 (87) 99 I/O 10/07/17 10/07/17 10/07/17 10/08/17 10/08/17 10/08/17 07:00 15:00 23:00 07:00 15:00 23:00 Intake Total 100 ml 360 ml Balance 100 ml 360 ml Intake Oral 100 ml 360 ml # Voids 3 Result Diagram: 10/08/1714 10/08/1714 Objective Remarks GENERAL: Patient lying in bed. Awake, alert. Appears comfortable. Alert and oriented 3. SKIN: Warm and dry. Lower lumbar area with incision clean dry and intact. HEAD: Normocephalic. EYES: No scleral icterus. No injection or drainage. NECK: Supple, trachea midline. No JVD. CARDIOVASCULAR: Regular rate and rhythm without murmurs, gallops, or rubs. RESPIRATORY: Breath sounds equal bilaterally. No accessory muscle use. GASTROINTESTINAL: Abdomen soft, non-tender, nondistended. abd incisions do not appear infected. MUSCULOSKELETAL: No cyanosis, or edema. BACK: Nontender without obvious deformity. No CVA tenderness. A/P Assessment and Plan This is a 32-year-old female with history of pseudotumor cerebri status post lumbo-peritoneal shunt patient presenting with headache with left-sided weakness //Rule out CVA, likely complicated migraine-patient presenting with headache with left-sided weakness and numbness, CTA of the carotids and head unremarkable. Check an MRI, start aspirin, neurology consulted, follow-up echocardiogram and hypercoagulable workup. Continue Topamax, restart pain medications. Will give Ativan for MRI since patient is claustrophobic.ESR is elevated at 88. = MRI unremarkable = neuro following. Appreciate assistance. = Patient refused transesophageal echocardiogram. Appreciate neurology and cardiology assistance. //Possible sepsis on admission. Fever, leukocytosis, ESR 88. Possible shunt infection given recent surgery. Possible UTI given dysuria. Urinalysis still pending. Consult infectious disease. = Appreciate ID assistance. Continue to follow cultures. Urinalysis does not appear infectious. = 10/08. Patient afebrile in the last 24 hours. Patient has been on antibiotics since admission. White count and vitals are improved. Pending lumbar puncture. //Pseudotumor cerebri-status post lumbar peritoneal shunt with revision, monitor. //Leukocytosis-likely physiological stress, monitor. =Resolved. //Hypokalemia. 3.3. Replace and monitor. =Resolved after placement. Continue to monitor //DVT prophylaxis: SCDs, low risk Discharge Planning Pending clearance by ID and neurology. Alexander Hernández MD Oct 08, 2017 09:24
[2017-10-08] MEDS: DOCUSATE SODIUM 50 MG/SENNA 8.6 MG TAB PO SCH ×2 (10:07→20:50)
[2017-10-08] MEDS: TOPIRAMATE 100 MG TAB PO SCH ×2 (10:07→21:00)
[2017-10-08] MEDS: ONDANSETRON ODT 4 MG TAB PO PRN (10:07)
--- NOTE | 2017-10-08 10:08 | PD.CONS ---
History of Present Illness Service Neurosurgery Consult Requested By Medicine service Reason for Consult Possible shunt infection Primary Care Physician Unknown Diagnoses: History of Present Illness 32-year-old female with history of pseudotumor cerebri. Status post lumboperitoneal shunt placement with subsequent revision August 2017. She had a protracted postoperative course as an inpatient with multiple complaints including intermittent headaches, abdominal discomfort, nausea. She presented back to the emergency room with some strokelike symptoms, although the patient states that she just felt dizzy with an increased headache. Today she states that she has a headache near the cervical occipital region. No significant nausea today. She complains of intermittent diffuse abdominal discomfort. No diarrhea. She has been noted to have positive fever upon admission, was started on IV antibiotics with infectious disease consultation. Patient was tentatively scheduled for lumbar puncture, which she declined over the past day or 2. Review of Systems Constitutional: COMPLAINS OF: Fatigue, Fever Eyes: COMPLAINS OF: Blurred vision Respiratory: DENIES: Shortness of breath Cardiovascular: DENIES: Chest pain Gastrointestinal: COMPLAINS OF: Abdominal pain, Nausea, DENIES: Diarrhea Musculoskeletal: COMPLAINS OF: Muscle aches, Neck pain Hematologic/lymphatic: DENIES: Bruising Neurologic: COMPLAINS OF: Headache Psychiatric: DENIES: Confusion Past Family Social History Allergies: Coded Allergies: Sulfa (Sulfonamide Antibiotics) (Verified Allergy, Severe, RASH, 10/05/17) amoxicillin (Verified Allergy, Severe, Anaphylaxis, 10/05/17) ketorolac (Verified Allergy, Severe, Anaphylaxis, 10/05/17) anaphylaxis per patient ibuprofen (Verified Allergy, Intermediate, HIVES, FACIAL SWELLING., ) tramadol (Verified Allergy, Intermediate, HIVES, 10/05/17) hives, sewll up latex (Verified Allergy, Unknown, 10/05/17) penicillin G (Verified Allergy, Unknown, HIVES, 10/05/17) prochlorperazine (Verified Allergy, Unknown, HIVES, 10/05/17) sumatriptan (Verified Adverse Reaction, Severe, VOMITING PASSED OUT, ) Past Medical History Idiopathic intracranial hypertension Past Surgical History Lumboperitoneal shunt placement with subsequent laparoscopic revision August 2017 Reported Medications Reported Meds & Active Scripts Active Dilaudid (Hydromorphone HCl) 2 Mg Tab 2 Mg PO Q6H PRN Zofran Odt (Ondansetron Odt) 4 Mg Tab 4 Mg SL Q8HR PRN 7 Days Walker with Front Wheels (Device) 1 Mis Mis Ea .XX DIRECTED Topamax (Topiramate) 50 Mg Tab 100 Mg PO BID 30 Days Reported [place] (Hydrocodone-Acetaminophen) 10-325 Mg Tab 1 Tab PO Q6H PRN Social History Lives with her . Does not smoke cigarettes No significant alcohol use Physical Exam Vital Signs Vital Signs Date Time Temp Pulse Resp B/P (MAP) Pulse Ox O2 Delivery O2 Flow Rate FiO2 10/08/17 07:45 97.8 84 18 112/68 (83) 99 10/08/17 05:45 14 10/08/17 04:51 98.1 61 18 124/71 (88) 98 10/08/17 00:07 97.9 51 17 108/58 (75) 96 10/07/17 20:51 98.2 60 16 119/74 (89) 96 10/07/17 16:00 98.5 58 18 120/71 (87) 99 10/07/17 13:00 98.2 53 18 120/71 (87) 99 Physical Exam GENERAL: This is a well-nourished, well-developed patient, in no apparent distress. SKIN: Previous incision sites are healing well without significant erythema edema or tenderness. Remaining sutures were removed from the right subcostal region on 10/07/2017 PM by the undersigned HEAD: Atraumatic. Normocephalic. No temporal or scalp tenderness. EYES: Sclera clear nonicteric ENT: No periorbital edema or ecchymosis NECK: Mild neck tenderness CARDIOVASCULAR: Pulse regular RESPIRATORY: Respirations clear GASTROINTESTINAL: Mild diffuse tenderness, primarily over the previous incision sites MUSCULOSKELETAL: No significant edema or cyanosis NEUROLOGICAL: She is lying in bed. Awake and alert Speech is clear and appropriate Reasonable judgment and insight Sensation intact light touch lower extremities and upper extremities Strength within normal limits lower extremities Laboratory Laboratory Tests Test 10/07/17 15:05 10/08/17 05:14 Vancomycin Level Trough 16.4 White Blood Count 7.1 Red Blood Count 3.78 Hemoglobin 10.1 Hematocrit 30.7 Mean Corpuscular Volume 81.3 Mean Corpuscular Hemoglobin 26.7 Mean Corpuscular Hemoglobin Concent 32.9 Red Cell Distribution Width 13.7 Platelet Count 408 Mean Platelet Volume 7.6 Neutrophils (%) (Auto) 45.0 Lymphocytes (%) (Auto) 43.3 Monocytes (%) (Auto) 7.5 Eosinophils (%) (Auto) 3.5 Basophils (%) (Auto) 0.7 Neutrophils # (Auto) 3.2 Lymphocytes # (Auto) 3.1 Monocytes # (Auto) 0.5 Eosinophils # (Auto) 0.2 Basophils # (Auto) 0.0 CBC Comment DIFF FINAL Differential Comment Blood Urea Nitrogen 9 Creatinine 0.60 Random Glucose 105 Albumin 2.3 Calcium Level 8.4 Phosphorus Level 4.2 Magnesium Level 2.1 Sodium Level 143 Potassium Level 3.6 Chloride Level 110 Carbon Dioxide Level 23.0 Anion Gap 10 Estimat Glomerular Filtration Rate 116 Date/Time Source Procedure Growth Status 10/06/17 14:22 Blood Peripheral Aerobic Blood Culture - Preliminary NO GROWTH IN 1 DAY Resulted 10/06/17 14:22 Blood Peripheral Anaerobic Blood Culture - Preliminary NO GROWTH IN 1 DAY Resulted Result Diagram: 10/08/1714 10/08/17 0514 Imaging Last Impressions Lumbar Puncture Fluoroscopy 10/08/17 0000 Signed Impressions: CONCLUSION: 1. Uncomplicated fluoroscopically guided lumbar puncture with pressures as abo ve. Neck CTA 10/05/17 1238 Signed Impressions: CONCLUSION: 1. Negative CTA carotids. Head CTA 10/05/17 1238 Signed Impressions: CONCLUSION: 1. Unremarkable CTA brain. Head Magnetic Resonance Angiography 10/05/17 0000 Signed Impressions: CONCLUSION: 1. Unremarkable MRA brain. Head CT 10/05/17 0000 Signed Impressions: CONCLUSION: 1. Negative CT Head non contrast. Chest X-Ray 10/05/17 0000 Signed Impressions: CONCLUSION: No active disease. Brain MRI 10/05/17 0000 Signed Impressions: CONCLUSION: 1. Unremarkable MRI brain for age. Assessment and Plan Assessment and Plan Impression: 1. Status post lumboperitoneal shunt with subsequent revision. Patient now presents with fever, increased WBC. 2. Chronic headaches. Etiology undetermined. She has a history of previous migraine headaches. Her headaches have fluctuated significantly on a daily basis over the past month. Plan: I had a long discussion with the patient on the evening of 10/07/2017 regarding treatment options and plan. Her remaining right upper quadrant sutures were removed on the evening of 2017. All of her incisions appear dry and intact without obvious infection. I had another discussion with her on the morning of 10/08/2017 regarding the importance of ruling out a shunt infection or meningitis. She now seems agreeable to proceeding with lumbar puncture. This has been discussed with the medicine service as well as with interventional radiology. Continuing IV antibiotics pending culture results. Infectious disease continues to follow. Mamadou Cerrato MD Oct 08, 2017 10:08
[2017-10-08] MEDS ORDERED: SODIUM BICARBONATE 8.4% INJ 50 ML ONE (11:49)
--- NOTE | 2017-10-08 12:31 | PD.RAD ---
Post Procedure Progress Note Pre Procedure Diagnosis: (1) Pseudotumor cerebri (2) Cephalgia Post Procedure Diagnosis: (1) Pseudotumor cerebri (2) Cephalgia Procedure Date: Oct 08, 2017 Supervising Radiologist: Arpan Torres Estimated blood loss: none Anesthesia: Local Plan of Activity Patient to Unit: [facility] Patient Condition: Good Additional Comments: LP completed without difficulty. Opening pressure 16cm/H2O 20cc of clear csf removed. Full report to follow See PACS Report for procedural detail/treatment Arpan Torres MD Oct 08, 2017 12:31
[2017-10-08 13:20] LABS: TOTAL PROTEIN,CSF 50.3 MG/DL (15.0-45.0)
[2017-10-08 13:52] LABS: DRVVT 1:1 MIX ND (CORRECTED); DRVVT CONFIRM NEGATIVE (NEGATIVE); HEXAGONAL PHASE CONFIRM NEGATIVE (NEGATIVE)
[2017-10-08 13:59] LABS: SUPERNATE COLOR TUBE #1 CLEAR (CLEAR)
[2017-10-08 14:00] LABS: RBC TUBE #4 35 /MM3; WBC TUBE #4 120 /MM3 (0-10)
[2017-10-08 14:02] LABS: CSF EOSINOPHILS 1 %; CSF LYMPHOCYTES 48 %; CSF MONOCYTES 20 %; CSF NEUTROPHILS 31 %
[2017-10-08 14:22] VITALS: BP 128/62; PULSE 55; RESP 18; TEMP 98.9; O2SAT 98
--- NOTE | 2017-10-08 14:59 | HHI.IDPN ---
Note Infectious Disease Note Patient reports that headache is 7/10 scale. Reports that she has nausea. Reports that she still has weakness in the left upper and lower extremity. Upset about her pain medication not being adequate. Denies vomiting or dizziness. Went for lumbar puncture earlier. Afebrile. CSF reveals 120 white cells. Gram stain and culture is pending. Blood culture no growth. 32-year-old white female who was recently discharged from the hospital on 10/03/2017. The patient underwent revision of a ventriculoperitoneal shunt that was previously placed on 08/12/2017. The revision was on 09/19/2017. The patient was brought into the emergency department as a stroke alert. She developed headache and she was brought to the emergency department to be evaluated. She had elevated temperature of 102 degrees. She notes that she has been having nausea and vomiting over the past couple of days and very poor appetite to the point where she has not been eating. She notes that she has double vision, but this has been unchanged. PAST MEDICAL HISTORY: Pseudotumor cerebri status post ventriculoperitoneal shunt placement and revision, asthma, hypertension, history of seizures, cholecystectomy, hysterectomy, history of kidney stones. ALLERGIES: SULFA, AMOXICILLIN, PENICILLIN G, IBUPROFEN, KETOROLAC, PROCHLORPERAZINE, SUMATRIPTAN, TRAMADOL, LATEX. MEDICATIONS: Current Medications Medications (Trade) Dose Ordered Sig/Jd Route PRN Reason Start Time Stop Time Status Last Admin Dose Admin Sodium Chloride (NS Flush) 2 ml BID IV FLUSH 10/05/17 21:00 10/07/17 09:15 Sodium Chloride (NS Flush) 2 ml UNSCH PRN IV FLUSH FLUSH AFTER USING IV ACCESS 10/05/17 13:45 Sodium Chloride 1,000 ml @ 70 mls/hr [id number] IV 10/05/17 13:36 10/08/17 01:45 Insulin Aspart (NovoLOG SUPPLEMENTAL SCALE) 1 ACHS SQ 10/05/17 17:00 Dextrose (D50w (Vial) Inj) 50 ml UNSCH PRN IV PUSH HYPOGLYCEMIA-SEE COMMENTS 10/05/17 13:45 Glucagon (Glucagon Inj) 1 mg UNSCH PRN OTHER HYPOGLYCEMIA-SEE COMMENTS 10/05/17 13:45 Sodium Chloride (NS Flush) 2 ml UNSCH PRN IV FLUSH FLUSH AFTER USING IV ACCESS 10/05/17 16:00 Sodium Chloride (NS Flush) 2 ml BID IV FLUSH 10/05/17 21:00 Acetaminophen (Tylenol) 650 mg Q4H PRN PO TEMP > 100.4 10/05/17 16:00 Naloxone HCl (Narcan Inj) 0.4 mg UNSCH PRN IV PUSH SEE LABEL COMMENTS 10/05/17 16:00 Senna/Docusate Sodium (Yojana-Colace) 1 tab BID PO 10/05/17 21:00 10/08/17 10:07 Magnesium Hydroxide (Milk Of Magnesia Liq) 30 ml Q12H PRN PO Mild constipation 10/05/17 16:00 Sennosides (Senokot) 17.2 mg Q12H PRN PO Moderate constipation 10/05/17 16:00 Bisacodyl (Dulcolax Supp) 10 mg DAILY PRN RECTAL SEVERE CONSITIPATION 10/05/17 16:00 Lactulose (Lactulose Liq) 30 ml DAILY PRN PO SEVERE CONSITIPATION 10/05/17 16:00 Acetaminophen/ Hydrocodone Bitart ([place] 5-325 Mg) 1 tab Q4H PRN PO PAIN SCALE 3 TO 5 10/05/17 16:00 10/06/17 00:48 Acetaminophen/ Hydrocodone Bitart ([place] 10-325 Mg) 1 tab Q4H PRN PO PAIN SCALE 6 TO 10 10/05/17 16:00 10/08/17 10:08 Naloxone HCl (Narcan Inj) 0.4 mg UNSCH PRN IV PUSH SEE LABEL COMMENTS 10/05/17 16:00 Topiramate (Topamax) 100 mg BID PO 10/05/17 21:00 10/08/17 10:07 Pharmacy Profile Note 0 ml @ 0 mls/hr UNSCH OTHER 10/06/17 00:30 Cefepime HCl 2000 mg/Sodium Chloride 100 ml @ 200 mls/hr Q8H IV 10/06/17 03:00 10/08/17 13:28 Vancomycin HCl 1500 mg/Sodium Chloride 515 ml @ 257.5 mls/ hr Q12H IV 10/06/17 15:00 10/08/17 04:45 Miscellaneous Information ([facility]) 1 UNSCH PRN XX SEE LABEL COMMENTS 10/07/17 11:45 10/10/17 11:44 Lorazepam (Ativan Inj) 1 mg ONCE PRN IV PUSH ANXIETY 10/08/17 06:00 10/08/17 23:59 10/08/17 12:02 Ondansetron HCl (Zofran Odt) 4 mg Q4H PRN PO NAUSEA 10/08/17 09:30 10/08/17 10:07 SOCIAL HISTORY: The patient is . Denies tobacco. Denies alcohol use. Denies illicit drug use. Objective: Vital Signs Date Time Temp Pulse Resp B/P (MAP) Pulse Ox O2 Delivery O2 Flow Rate FiO2 10/08/17 14:22 98.9 55 18 128/62 (84) 98 10/08/17 07:45 97.8 84 18 112/68 (83) 99 10/08/17 05:45 14 10/08/17 04:51 98.1 61 18 124/71 (88) 98 10/08/17 00:07 97.9 51 17 108/58 (75) 96 10/07/17 20:51 98.2 60 16 119/74 (89) 96 10/07/17 16:00 98.5 58 18 120/71 (87) 99 Laboratory Tests Test 10/07/17 07:23 10/08/17 05:14 White Blood Count 9.9 TH/MM3 7.1 TH/MM3 Red Blood Count 3.75 MIL/MM3 3.78 MIL/MM3 Hemoglobin 9.8 GM/DL 10.1 GM/DL Hematocrit 30.7 % 30.7 % Mean Corpuscular Volume 81.8 FL 81.3 FL Mean Corpuscular Hemoglobin 26.0 PG 26.7 PG Mean Corpuscular Hemoglobin Concent 31.8 % 32.9 % Red Cell Distribution Width 13.6 % 13.7 % Platelet Count 340 TH/MM3 408 TH/MM3 Mean Platelet Volume 7.7 FL 7.6 FL Neutrophils (%) (Auto) 49.4 % 45.0 % Lymphocytes (%) (Auto) 40.0 % 43.3 % Monocytes (%) (Auto) 7.4 % 7.5 % Eosinophils (%) (Auto) 2.8 % 3.5 % Basophils (%) (Auto) 0.4 % 0.7 % Neutrophils # (Auto) 4.9 TH/MM3 3.2 TH/MM3 Lymphocytes # (Auto) 4.0 TH/MM3 3.1 TH/MM3 Monocytes # (Auto) 0.7 TH/MM3 0.5 TH/MM3 Eosinophils # (Auto) 0.3 TH/MM3 0.2 TH/MM3 Basophils # (Auto) 0.0 TH/MM3 0.0 TH/MM3 CBC Comment AUTO DIFF DIFF FINAL Differential Comment AUTO DIFF CONFIRMED Platelet Estimate NORMAL Platelet Morphology Comment CLUMPED Laboratory Tests Test 10/07/17 07:23 10/08/17 05:14 Blood Urea Nitrogen 9 MG/DL 9 MG/DL Creatinine 0.51 MG/DL 0.60 MG/DL Random Glucose 96 MG/DL 105 MG/DL Albumin 2.0 GM/DL 2.3 GM/DL Calcium Level 8.1 MG/DL 8.4 MG/DL Phosphorus Level 3.4 MG/DL 4.2 MG/DL Magnesium Level 2.1 MG/DL 2.1 MG/DL Sodium Level 143 MEQ/L 143 MEQ/L Potassium Level 3.5 MEQ/L 3.6 MEQ/L Chloride Level 113 MEQ/L 110 MEQ/L Carbon Dioxide Level 21.3 MEQ/L 23.0 MEQ/L Anion Gap 9 MEQ/L 10 MEQ/L Estimat Glomerular Filtration Rate 140 ML/MIN 116 ML/MIN Microbiology Date/Time Source Procedure Growth Status 10/06/17 14:22 Blood Peripheral Aerobic Blood Culture - Preliminary NO GROWTH IN 2 DAYS Resulted 10/06/17 14:22 Blood Peripheral Anaerobic Blood Culture - Preliminary NO GROWTH IN 2 DAYS Resulted 10/06/17 14:16 Blood Peripheral Aerobic Blood Culture - Preliminary NO GROWTH IN 2 DAYS Resulted 10/06/17 14:16 Blood Peripheral Anaerobic Blood Culture - Preliminary NO GROWTH IN 2 DAYS Resulted 10/08/17 12:15 Cerebral Spinal Fluid Lumbar Puncture Acid Fast Stain Pending Received 10/08/17 12:15 Cerebral Spinal Fluid Lumbar Puncture Mycobacterial Culture Pending Received 10/08/17 12:15 Cerebral Spinal Fluid Lumbar Puncture Fungal Smear - Final NO FUNGAL ELEMENTS SEEN. Resulted 10/08/17 12:15 Cerebral Spinal Fluid Lumbar Puncture Fungal Culture Pending Resulted 10/08/17 12:15 Cerebral Spinal Fluid Lumbar Puncture Gram Stain - Final Resulted 10/08/17 12:15 Cerebral Spinal Fluid Lumbar Puncture CSF Culture Pending Resulted Imaging Neck CTA 10/05/17 1238 Signed Impressions: CONCLUSION: 1. Negative CTA carotids. Head CTA 10/05/17 1238 Signed Impressions: CONCLUSION: 1. Unremarkable CTA brain. Head Magnetic Resonance Angiography 10/05/17 Signed Impressions: CONCLUSION: 1. Unremarkable MRA brain. Head CT 10/05/17 Signed Impressions: CONCLUSION: 1. Negative CT Head non contrast. Chest X-Ray 10/05/17 Signed Impressions: CONCLUSION: No active disease. Brain MRI 10/05/17 Signed Impressions: CONCLUSION: 1. Unremarkable MRI brain for age. PHYSICAL EXAMINATION: GENERAL: No acute distress. HEENT: Extraocular movements grossly intact. Pupils reactive to light. No icterus. No conjunctival erythema. Oropharynx slightly dry mucosa. No lesions visible. NECK: Supple without adenopathy. LUNGS: Clear breath sounds. HEART: Regular S1, S2. No murmurs, rubs or gallops. ABDOMEN: Bowel sounds present, obese, soft, nontender. Incisions at the abdomen from prior surgical procedure intact. No erythema. EXTREMITIES: No clubbing, cyanosis or edema. SKIN: No rash. NEUROLOGIC: Decreased strength on the left upper and lower extremity. PSYCHIATRIC: Calm and cooperative. IMPRESSION: 1. Fever, headache and leukocytosis. Possible infection as source of fever. The CSF as elevated white cells which may be indicative of partially treated meningitis. She was on antibiotics 3 days before lumbar puncture was performed. I would not have expected the CSF to have white cells without infection. Her previous lumbar punctures revealed 0 or very low white blood cell count. 2. Status post recent ventriculoperitoneal shunt revision. It is unclear whether the [employer] shunt is involved infection. RECOMMENDATIONS: 1. Continue vancomycin. 2. Continue cefepime, which will also give good CSF coverage for potential gram-negative bacteria. 3. Follow the CSF culture. She continues to complain of headache but the fever and white count has improved. I would continue the IV antibiotic treatment for 10-14 days with adjustment depending on the CSF Culture results. I strongly recommend lumbar puncture in the future (Prior to antibiotic if possible) if she develops recurrent fever following this course of treatment. I will continue to follow the CSF culture. We should get physical therapy involved to have her ambulate. Micha Harrington MD Oct 08, 2017 14:59
--- NOTE | 2017-10-08 16:07 | RADRPT ---
EXAM DATE: 10/08/2017 12:44 PM EDT AGE/SEX: 32 years / Female INDICATIONS: Patient presents with headaches, nausea and vomiting. CLINICAL DATA: This is the patient's initial encounter. Patient reports that signs and symptoms have been present for 4 - 6 days and indicates a pain score of 8/10. MEDICAL/SURGICAL HISTORY: . History of idiopathic intracranial hypertensionHistory of MRSA skin infections.Kidney stonesAsthmaHistory of migraine headaches . CholecystectomyHysterectomyC-sectionR enal stentLumboperitoneal shunt status post revision COMPARISON: [facility], LUMBAR PUNCTURE W/OPENING PRESSURES, 08/06/2017. . FLUORO TIME (min): 2 IMAGE SERIES: 1 ACCESS SITE: L2-3 LUMBAR PUNCTURE TIME: 12:15 hours OPENING PRESSURE: 16 cm of water FLUID: Total volume of 20 cc of clear fluid was removed. MEDICATION(S): 1mg lorazepam (Ativan) IV . . PROCEDURE: 1. Fluoroscopic guided lumbar puncture. 2. Recording of opening pressure. The risks, benefits and alternatives to the procedure were explained and verbal and written consent w as obtained. The site was prepped in sterile fashion. Full sterile technique was used, including ca p, mask, sterile gloves and gown and a large sterile sheet. Hand hygiene and 2% chlorhexidine and/or betadine/alcohol prep was utilized per protocol for cutaneous antisepsis. The skin and subcutaneous tissues were infiltrated with local anesthetic solution. With fluoroscopic guidance the lumbar thecal sac was punctured at the above level described above and the opening pressure was recorded. The above described fluid was removed without difficulty. The patient tolerated the procedure well and there were no complications. CONCLUSION: 1. Uncomplicated fluoroscopically guided lumbar puncture with pressures as above. Electronically signed by: Arpan Torres MD 10/08/2017 3:51 PM EDT
[2017-10-08 16:36] VITALS: BP 119/67; PULSE 64; RESP 18; TEMP 98.9; O2SAT 99
--- NOTE | 2017-10-08 17:21 | HHI.PR ---
Review/Management Diagnosis CSF shows leukocytosis c/w meningitis. Opening Pressure is normal (16 cm H2O) consistent with normal shunt functioning. Her headache is most likely related to meningitis. Plan Will add MSo4 for severe DELCID which is likely due to meningeal irritation from meningitis Diagnosis/Plan: Subjective Subjective Comments No acute events reported Pt c/o severe headache and neck pain 02/04 Active Medications Current Medications Medications (Trade) Dose Ordered Sig/Jd Route Start Time Stop Time Status Last Admin (NS Flush) 2 ml BID IV FLUSH 10/05/17 21:00 10/07/17 09:15 (NS Flush) 2 ml UNSCH PRN IV FLUSH 10/05/17 13:45 Sodium Chloride 1,000 ml @ 70 mls/hr [id number] IV 10/05/17 13:36 10/08/17 01:45 (NovoLOG SUPPLEMENTAL SCALE) 1 ACHS SQ 10/05/17 17:00 (D50w (Vial) Inj) 50 ml UNSCH PRN IV PUSH 10/05/17 13:45 (Glucagon Inj) 1 mg UNSCH PRN OTHER 10/05/17 13:45 (NS Flush) 2 ml UNSCH PRN IV FLUSH 10/05/17 16:00 (NS Flush) 2 ml BID IV FLUSH 10/05/17 21:00 (Tylenol) 650 mg Q4H PRN PO 10/05/17 16:00 (Narcan Inj) 0.4 mg UNSCH PRN IV PUSH 10/05/17 16:00 (Yojana-Colace) 1 tab BID PO 10/05/17 21:00 10/08/17 10:07 (Milk Of Magnesia Liq) 30 ml Q12H PRN PO 10/05/17 16:00 (Senokot) 17.2 mg Q12H PRN PO 10/05/17 16:00 (Dulcolax Supp) 10 mg DAILY PRN RECTAL 10/05/17 16:00 (Lactulose Liq) 30 ml DAILY PRN PO 10/05/17 16:00 ([place] 5-325 Mg) 1 tab Q4H PRN PO 10/05/17 16:00 10/06/17 00:48 ([place] 10-325 Mg) 1 tab Q4H PRN PO 10/05/17 16:00 10/08/17 15:22 (Narcan Inj) 0.4 mg UNSCH PRN IV PUSH 10/05/17 16:00 (Topamax) 100 mg BID PO 10/05/17 21:00 10/08/17 10:07 Pharmacy Profile Note 0 ml @ 0 mls/hr UNSCH OTHER 10/06/17 00:30 Cefepime HCl 2000 mg/Sodium Chloride 100 ml @ 200 mls/hr Q8H IV 10/06/17 03:00 10/08/17 13:28 Vancomycin HCl 1500 mg/Sodium Chloride 515 ml @ 257.5 mls/ hr Q12H IV 10/06/17 15:00 10/08/17 04:45 ([facility] [place] Nursing Information) 1 UNSCH PRN XX 10/07/17 11:45 10/10/17 11:44 (Ativan Inj) 1 mg ONCE PRN IV PUSH 10/08/17 06:00 10/08/17 23:59 10/08/17 12:02 (Zofran Odt) 4 mg Q4H PRN PO 10/08/17 09:30 10/08/17 10:07 Allergies Allergies Coded Allergies Sulfa (Sulfonamide Antibiotics) (Verified Allergy, Severe, RASH, 10/05/17) amoxicillin (Verified Allergy, Severe, Anaphylaxis, 10/05/17) ketorolac (Verified Allergy, Severe, Anaphylaxis, 10/05/17) ibuprofen (Verified Allergy, Intermediate, HIVES, FACIAL SWELLING., 10/05/17) tramadol (Verified Allergy, Intermediate, HIVES, 10/05/17) latex (Verified Allergy, Unknown, 10/05/17) penicillin G (Verified Allergy, Unknown, HIVES, 10/05/17) prochlorperazine (Verified Allergy, Unknown, HIVES, 10/05/17) sumatriptan (Verified Adverse Reaction, Severe, VOMITING PASSED OUT, 10/05/17) Review of Systems All other ROS: ROS reviewed as documented in chart Exam I&O / VS 10/08/17 10/08/17 10/09/17 15:00 23:00 07:00 Intake Total 100 ml Balance 100 ml IV Total 100 ml Vital Signs Date Time Temp Pulse Resp B/P (MAP) Pulse Ox O2 Delivery O2 Flow Rate FiO2 10/08/17 16:36 98.9 64 18 119/67 (84) 99 10/08/17 14:22 98.9 55 18 128/62 (84) 98 10/08/17 07:45 97.8 84 18 112/68 (83) 99 10/08/17 05:45 14 10/08/17 04:51 98.1 61 18 124/71 (88) 98 10/08/17 00:07 97.9 51 17 108/58 (75) 96 10/07/17 20:51 98.2 60 16 119/74 (89) 96 General: Alert and Oriented, No acute distress Eye: EOMI Respiratory: Non-labored respirations Cardiology: Normal rate Musculoskeletal: ROM Neurologic: Alert, Oriented, Normal sensory, Normal motor, No focal defects Psychiatric: Cooperative, Appropriate mood & affect, Normal judgement Exam Comments alert, speech normal CN intact MOTOR 4/5 LUE, 5/5 RUE Objective Micro and Labs Laboratory Tests Test 10/08/17 05:14 10/08/17 12:15 White Blood Count 7.1 Red Blood Count 3.78 Hemoglobin 10.1 Hematocrit 30.7 Mean Corpuscular Volume 81.3 Mean Corpuscular Hemoglobin 26.7 Mean Corpuscular Hemoglobin Concent 32.9 Red Cell Distribution Width 13.7 Platelet Count 408 Mean Platelet Volume 7.6 Neutrophils (%) (Auto) 45.0 Lymphocytes (%) (Auto) 43.3 Monocytes (%) (Auto) 7.5 Eosinophils (%) (Auto) 3.5 Basophils (%) (Auto) 0.7 Neutrophils # (Auto) 3.2 Lymphocytes # (Auto) 3.1 Monocytes # (Auto) 0.5 Eosinophils # (Auto) 0.2 Basophils # (Auto) 0.0 CBC Comment DIFF FINAL Differential Comment Blood Urea Nitrogen 9 Creatinine 0.60 Random Glucose 105 Albumin 2.3 Calcium Level 8.4 Phosphorus Level 4.2 Magnesium Level 2.1 Sodium Level 143 Potassium Level 3.6 Chloride Level 110 Carbon Dioxide Level 23.0 Anion Gap 10 Estimat Glomerular Filtration Rate 116 CSF Volume (Tube 1) 4.0 CSF Supernatant Color (tube 1) CLEAR CSF Gross Blood (Tube 1) 0 CSF Volume (Tube 2) 4.9 CSF Supernatant Color (tube 2) CLEAR CSF Gross Blood (Tube 2) 0 CSF Volume (Tube 3) 4.8 CSF Supernatant Color (tube 3) CLEAR CSF Gross Blood (Tube 3) 0 CSF Volume (Tube 4) 5.5 CSF Supernatant Color (tube 4) CLEAR CSF Gross Blood (Tube 4) 0 CSF WBC (Tube 4) 120 CSF RBC (Tube 4) 35 CSF Neutrophils 31 CSF Lymphocytes 48 CSF Monocytes 20 CSF Eosinophils 1 CSF Glucose 51 CSF Total Protein 50.3 Date/Time Source Procedure Growth Status 10/06/17 14:22 Blood Peripheral Aerobic Blood Culture - Preliminary NO GROWTH IN 2 DAYS Resulted 10/06/17 14:22 Blood Peripheral Anaerobic Blood Culture - Preliminary NO GROWTH IN 2 DAYS Resulted 10/08/17 12:15 Cerebral Spinal Fluid Lumbar Puncture Acid Fast Stain Pending Received 10/08/17 12:15 Cerebral Spinal Fluid Lumbar Puncture Mycobacterial Culture Pending Received Antonio Haddad MD PhD Oct 08, 2017 17:21
[2017-10-08] MEDS ORDERED: MORPHINE SULFATE 2 MG/ML SYRINGE IV PUSH PRN (17:30)
[2017-10-08] MEDS: MORPHINE SULFATE 4 MG/ML INJ IV PUSH PRN ×2 (18:04→20:51)
[2017-10-08 20:00] VITALS: BP 114/57; PULSE 57; RESP 16; TEMP 98.6; O2SAT 99
[2017-10-09] VITALS: BP 118/64; PULSE 77; RESP 16; TEMP 98.4; O2SAT 93
[2017-10-09] MEDS: ACETAMINOPHEN/HYDROcodone 325 MG/10 MG TAB PO PRN ×6 (00:45→22:26)
[2017-10-09] MEDS: MORPHINE SULFATE 4 MG/ML INJ IV PUSH PRN ×6 (00:45→23:31)
[2017-10-09] MEDS: ONDANSETRON ODT 4 MG TAB PO PRN (03:10)
[2017-10-09] MEDS: CEFEPIME INJ 2,000 MG in SODIUM CHLORIDE 0.9% INJ 100 ML IV SCH ×3 (03:11→18:18)
[2017-10-09] MEDS: VANCOMYCIN INJ 1,500 MG in SODIUM CHLORID 0.9% 500 ML INJ 500 ML IV SCH ×2 (03:12→15:17)
[2017-10-09 04:00] VITALS: BP 98/55; PULSE 46; RESP 16; TEMP 98.6; O2SAT 95
[2017-10-09] MEDS: SODIUM CHLOR 0.9% 1000 ML INJ 1,000 ML IV SCH ×2 (04:49→17:42)
[2017-10-09 08:00] VITALS: BP 116/57; PULSE 61; RESP 18; TEMP 97.8; O2SAT 97
[2017-10-09] MEDS: INSULIN ASPART SUPPLEMENTAL SCALE SQ SCH ×2 (08:00→11:26)
[2017-10-09] MEDS: SODIUM CHLORIDE 0.9% FLUSH 10 ML FLUSH IV FLUSH SCH ×3 (09:00→22:26)
[2017-10-09 09:34] LABS: HSV 1,PCR Negative (Negative)
[2017-10-09] MEDS: DOCUSATE SODIUM 50 MG/SENNA 8.6 MG TAB PO SCH ×2 (10:03→22:25)
[2017-10-09] MEDS: TOPIRAMATE 100 MG TAB PO SCH ×2 (10:59→22:25)
[2017-10-09 12:00] VITALS: BP 123/77; PULSE 58; RESP 18; TEMP 97.3; O2SAT 99
[2017-10-09 12:02] LABS: PROTEIN C ACTIVITY 104 % (70 - 150); PROTEIN S ACTIVITY 146 % (50 - 160)
--- NOTE | 2017-10-09 15:41 | HHI.PR ---
Subjective Remarks The patient complains of severe headache localized in the back of the head and neck. Denies fevers or chills. Blood pressure borderline low this a.m. with systolic blood pressure in the high 90s. The patient denies nausea, vomiting or abdominal pain. Denies fevers or chills. Noted to be bradycardic overnight. Objective Vitals Vital Signs Date Time Temp Pulse Resp B/P (MAP) Pulse Ox O2 Delivery O2 Flow Rate FiO2 10/09/17 12:00 97.3 58 18 123/77 (92) 99 10/09/17 08:00 97.8 61 18 116/57 (76) 97 10/09/17 04:00 98.6 46 16 98/55 (69) 95 10/09/17 00:00 98.4 77 16 118/64 (82) 93 10/08/17 20:00 98.6 57 16 114/57 (76) 99 10/08/17 16:36 98.9 64 18 119/67 (84) 99 I/O 10/08/17 10/08/17 10/08/17 10/09/17 10/09/17 10/09/17 07:00 15:00 23:00 07:00 15:00 23:00 Intake Total 100 ml Balance 100 ml IV Total 100 ml # Voids 3 Result Diagram: 10/08/1751310/08/17513 Imaging Last Impressions Lumbar Puncture Fluoroscopy 10/08/17 Signed Impressions: CONCLUSION: 1. Uncomplicated fluoroscopically guided lumbar puncture with pressures as abo ve. Neck CTA 10/05/171237 Signed Impressions: CONCLUSION: 1. Negative CTA carotids. Head CTA 10/05/171237 Signed Impressions: CONCLUSION: 1. Unremarkable CTA brain. Head Magnetic Resonance Angiography 10/05/17 Signed Impressions: CONCLUSION: 1. Unremarkable MRA brain. Head CT 10/05/17 Signed Impressions: CONCLUSION: 1. Negative CT Head non contrast. Chest X-Ray 10/05/17 Signed Impressions: CONCLUSION: No active disease. Brain MRI 10/05/17 Signed Impressions: CONCLUSION: 1. Unremarkable MRI brain for age. Objective Remarks GENERAL: Patient lying in bed. Awake, alert. Appears comfortable. Alert and oriented 3. SKIN: Warm and dry. Lower lumbar area with incision clean dry and intact. HEAD: Normocephalic. EYES: No scleral icterus. No injection or drainage. NECK: Supple, trachea midline. No JVD. CARDIOVASCULAR: Regular rate and rhythm without murmurs, gallops, or rubs. RESPIRATORY: Breath sounds equal bilaterally. No accessory muscle use. GASTROINTESTINAL: Mild tenderness to palpation of mid abdomen. Abdominal incisions look C/T/I. MUSCULOSKELETAL: No cyanosis, or edema. BACK: Nontender without obvious deformity. No CVA tenderness. A/P Problem List: (1) Sepsis ICD Code: A41.9 - Sepsis, unspecified organism Plan: Sepsis present on admission. As per medical records the patient had fever, leukocytosis and ESR of 88. Suspect it is possible shunt infection given recent surgery. Chest x-ray negative. Sepsis most likely secondary to meningitis after procedure. Continue IV antibiotics as per infectious disease recommendations. Patient is currently on IV vancomycin, IV cefepime Follow-up CSF culture. ID recommends treatment with IV antibiotics for 10-14 days with adjustment depending on the CSF culture results. Lumbar puncture recommended in the future if she develops recurrent fever following this course of treatment. Order physical therapy evaluation and treatment for mobilization. (2) Meningitis ICD Code: G03.9 - Meningitis, unspecified Plan: As above. (3) Pseudotumor cerebri ICD Code: G93.2 - Benign intracranial hypertension Plan: Status post lumbar peritoneal shunt with revision, monitor. Patient with normal opening pressures. (4) Leukocytosis ICD Code: D72.829 - Elevated white blood cell count, unspecified Plan: Likely secondary to sepsis secondary to meningitis. Leukocytosis resolving and trending down. Monitor CBC. (5) Headache ICD Code: R51 - Headache Status: Acute Plan: Patient with uncontrolled severe pain. Continue pain control with oral [place], I IV morphine as needed, I will add a 5 mg fentanyl patch. (6) Hypokalemia ICD Code: E87.6 - Hypokalemia Plan: Hypokalemia resolved. Potassium level now 3.6. Continue to monitor BMP. Assessment and Plan SCDs for DVT prophylaxis, add heparin subcutaneously. Discharge Planning Continue to monitor on the medical floor. The patient will need neurology and ID clearance. Problem Qualifiers (1) Sepsis: Qualified Codes: A41.9 - Sepsis, unspecified organism (2) Leukocytosis: Qualified Codes: D72.829 - Elevated white blood cell count, unspecified (3) Headache: Adam Lopez MD Oct 09, 2017 15:41
[2017-10-09 16:00] VITALS: BP 127/67; PULSE 59; RESP 18; O2SAT 98
--- NOTE | 2017-10-09 17:08 | HHI.NSPN ---
(Chandrakant Yeung) History Chief Complaint: Some surgical site pain. (Chandrakant Yeung) Interval History 10/08: 32-year-old female with history of pseudotumor cerebri. Status post lumboperitoneal shunt placement with subsequent revision August 2017. She had a protracted postoperative course as an inpatient with multiple complaints including intermittent headaches, abdominal discomfort, nausea. She presented back to the emergency room with some strokelike symptoms, although the patient states that she just felt dizzy with an increased headache. Today she states that she has a headache near the cervical occipital region. No significant nausea today. She complains of intermittent diffuse abdominal discomfort. No diarrhea. She has been noted to have positive fever upon admission, was started on IV antibiotics with infectious disease consultation. Patient was tentatively scheduled for lumbar puncture, which she declined over the past day or 2. 10/09: This afternoon when seen the patient is awake and alert in the bed. She says she does have some surgical site pain. She also says that she has meningitis although she is not on any special precautions. She did have WBCs and an elevated protein in her CSF specimen sent to the lab but no organisms were seen on Gram stain. So far there has been no growth in the CSF for 24 hours. Upon examination she is mildly tender to the left anterolateral surgical site. There are no evident sensorimotor deficits to the lower extremities. (Chandrakant Yeung) Exam Results 10/07/17 10/07/17 10/08/17 10/08/17 10/09/17 10/09/17 06:00 18:00 06:00 18:00 06:00 18:00 Intake Total 100 ml 360 ml 100 ml Balance 100 ml 360 ml 100 ml Intake Oral 100 ml 360 ml IV Total 100 ml # Voids 3 3 Vital Signs Date Time Temp Pulse Resp B/P (MAP) Pulse Ox O2 Delivery O2 Flow Rate FiO2 10/09/17 16:00 59 18 127/67 (87) 98 10/09/17 12:00 97.3 58 18 123/77 (92) 99 10/09/17 08:00 97.8 61 18 116/57 (76) 97 10/09/17 04:00 98.6 46 16 98/55 (69) 95 10/09/17 00:00 98.4 77 16 118/64 (82) 93 10/08/17 20:00 98.6 57 16 114/57 (76) 99 10/08/17 16:36 98.9 64 18 119/67 (84) 99 10/08/17 14:22 98.9 55 18 128/62 (84) 98 10/08/17 07:45 97.8 84 18 112/68 (83) 99 10/08/17 05:45 14 10/08/17 04:51 98.1 61 18 124/71 (88) 98 10/08/17 00:07 97.9 51 17 108/58 (75) 96 10/07/17 20:51 98.2 60 16 119/74 (89) 96 10/07/17 16:00 98.5 58 18 120/71 (87) 99 10/07/17 13:00 98.2 53 18 120/71 (87) 99 10/07/17 08:00 98.5 58 18 101/57 (72) 98 10/07/17 03:57 18 10/07/17 00:44 97.7 56 16 105/59 (74) 97 10/06/17 20:34 98.3 66 16 102/57 (72) 97 (Chandrakant Yeung) Physical Examination GENERAL: Awake & alert in bed. Affect normal. Readily interacts. No apparent distress. SKIN: Abdominal wall surgical sites w/o any signs of infection or drainage. HEENT: Normocephalic, atraumatic. GASTROINTESTINAL: Mildly TTP to the left anterolateral abdominal wall surgical site. MUSCULOSKELETAL: HOUSE spontaneously & purposefully w/o difficulty. NEUROLOGICAL: AAOx3. Speech clear & appropriate. Follows simple commands w/o difficulty. Sensation intact to light touch to the lower extremities. Motor strength is normal to the lower extremities. (Chandrakant Yeung) Lab, Micro, Other Results Recent Impressions Lumbar Puncture Fluoroscopy 10/08/17 0000 Signed Impressions: CONCLUSION: 1. Uncomplicated fluoroscopically guided lumbar puncture with pressures as abo ve. Laboratory Tests Test 10/07/17 07:23 10/07/17 15:05 10/08/17 05:14 10/08/17 12:15 White Blood Count 9.9 TH/MM3 7.1 TH/MM3 Red Blood Count 3.75 MIL/MM3 3.78 MIL/MM3 Hemoglobin 9.8 GM/DL 10.1 GM/DL Hematocrit 30.7 % 30.7 % Mean Corpuscular Volume 81.8 FL 81.3 FL Mean Corpuscular Hemoglobin 26.0 PG 26.7 PG Mean Corpuscular Hemoglobin Concent 31.8 % 32.9 % Red Cell Distribution Width 13.6 % 13.7 % Platelet Count 340 TH/MM3 408 TH/MM3 Mean Platelet Volume 7.7 FL 7.6 FL Neutrophils (%) (Auto) 49.4 % 45.0 % Lymphocytes (%) (Auto) 40.0 % 43.3 % Monocytes (%) (Auto) 7.4 % 7.5 % Eosinophils (%) (Auto) 2.8 % 3.5 % Basophils (%) (Auto) 0.4 % 0.7 % Neutrophils # (Auto) 4.9 TH/MM3 3.2 TH/MM3 Lymphocytes # (Auto) 4.0 TH/MM3 3.1 TH/MM3 Monocytes # (Auto) 0.7 TH/MM3 0.5 TH/MM3 Eosinophils # (Auto) 0.3 TH/MM3 0.2 TH/MM3 Basophils # (Auto) 0.0 TH/MM3 0.0 TH/MM3 CBC Comment AUTO DIFF DIFF FINAL Differential Comment AUTO DIFF CONFIRMED Platelet Estimate NORMAL Platelet Morphology Comment CLUMPED Blood Urea Nitrogen 9 MG/DL 9 MG/DL Creatinine 0.51 MG/DL 0.60 MG/DL Random Glucose 96 MG/DL 105 MG/DL Albumin 2.0 GM/DL 2.3 GM/DL Calcium Level 8.1 MG/DL 8.4 MG/DL Phosphorus Level 3.4 MG/DL 4.2 MG/DL Magnesium Level 2.1 MG/DL 2.1 MG/DL Sodium Level 143 MEQ/L 143 MEQ/L Potassium Level 3.5 MEQ/L 3.6 MEQ/L Chloride Level 113 MEQ/L 110 MEQ/L Carbon Dioxide Level 21.3 MEQ/L 23.0 MEQ/L Anion Gap 9 MEQ/L 10 MEQ/L Estimat Glomerular Filtration Rate 140 ML/MIN 116 ML/MIN Vancomycin Level Trough 16.4 MCG/ML CSF Volume (Tube 1) 4.0 ML CSF Supernatant Color (tube 1) CLEAR CSF Gross Blood (Tube 1) 0 CSF Volume (Tube 2) 4.9 ML CSF Supernatant Color (tube 2) CLEAR CSF Gross Blood (Tube 2) 0 CSF Volume (Tube 3) 4.8 ML CSF Supernatant Color (tube 3) CLEAR CSF Gross Blood (Tube 3) 0 CSF Volume (Tube 4) 5.5 ML CSF Supernatant Color (tube 4) CLEAR CSF Gross Blood (Tube 4) 0 CSF WBC (Tube 4) 120 /MM3 CSF RBC (Tube 4) 35 /MM3 CSF Neutrophils 31 % CSF Lymphocytes 48 % CSF Monocytes 20 % CSF Eosinophils 1 % CSF Glucose 51 MG/DL CSF Total Protein 50.3 MG/DL Herpes Simplex Virus I DNA (PCR) Negative Herpes Simplex Virus II DNA (PCR) Negative (Chandrakant Yeung) Medical Decision Making Impression and Plan Impression: 1. Status post lumboperitoneal shunt with subsequent revision. Patient now presents with fever, increased WBC. 2. Chronic headaches. Etiology undetermined. She has a history of previous migraine headaches. Her headaches have fluctuated significantly on a daily basis over the past month. The patient is doing well. She does have some mild pain to the left anterolateral abdominal wall. Past 24 hrs: Afebrile. Intermittent tachycardia. SBP in upper 90s once. Reviewed labs for today. Haemoglobin level essentially steady. CSF cultures () w/few WBCs and no organisms seen on final Gram stain, no growth x24 hrs, preliminary. Blood cultures x2 () w/no growth x3 days, preliminary. CSF specimen with 120 WBC & 35 RBC, total protein 50.3. CT/CTA brain unremarkable. MRI/MRA brain unremarkable. CTA neck unremarkable. Plan: Primary management per Hospitalist. Antibiotics per Infectious Disease. Mobilise patient w/assistance as needed. Will follow culture results. (Chandrakant Yeung) Attending Statement The exam, history, and the medical decision-making described in the above note were completed with the assistance of the mid-level provider. I reviewed and agree with the findings presented. I attest that I had a [id number] encounter with the patient on the same day, and personally performed and documented my assessment and findings in the medical record. Patient's incisions remain dry and intact. Persistent intermittent headache. No nuchal rigidity. CSF cultures remain no growth to date. Continuing treatment for presumed meningitis. (Mamadou Cerrato MD) Chandrakant Yeung Oct 09, 2017 17:08 Mamadou Cerrato MD Oct 10, 2017 19:32
[2017-10-09] MEDS: fentaNYL 25 MCG/HR PATCH T-DERMAL SCH (17:23)
[2017-10-09 20:00] VITALS: BP 115/55; PULSE 52; RESP 18; TEMP 98.9; O2SAT 96
[2017-10-10] VITALS: BP 117/54; PULSE 60; RESP 18; TEMP 97.5; O2SAT 99
[2017-10-10] MEDS: VANCOMYCIN INJ 1,500 MG in SODIUM CHLORID 0.9% 500 ML INJ 500 ML IV SCH ×2 (02:23→15:44)
[2017-10-10] MEDS: SODIUM CHLOR 0.9% 1000 ML INJ 1,000 ML IV SCH (02:23)
[2017-10-10] MEDS: CEFEPIME INJ 2,000 MG in SODIUM CHLORIDE 0.9% INJ 100 ML IV SCH ×2 (02:23→10:25)
[2017-10-10] MEDS: ACETAMINOPHEN/HYDROcodone 325 MG/10 MG TAB PO PRN ×5 (02:33→23:54)
[2017-10-10] MEDS: SODIUM CHLORIDE 0.9% FLUSH 10 ML FLUSH IV FLUSH PRN (03:35)
[2017-10-10] MEDS: MORPHINE SULFATE 4 MG/ML INJ IV PUSH PRN ×5 (03:35→20:43)
[2017-10-10 04:00] VITALS: BP 106/59; PULSE 60; RESP 18; TEMP 97.9; O2SAT 98
[2017-10-10 08:00] VITALS: BP 138/68; PULSE 56; RESP 16; TEMP 97.9; O2SAT 94
[2017-10-10] MEDS: TOPIRAMATE 100 MG TAB PO SCH ×3 (08:17→23:57)
[2017-10-10] MEDS: DOCUSATE SODIUM 50 MG/SENNA 8.6 MG TAB PO SCH ×2 (08:17→20:44)
[2017-10-10] MEDS: SODIUM CHLORIDE 0.9% FLUSH 10 ML FLUSH IV FLUSH SCH ×2 (08:18→20:43)
--- NOTE | 2017-10-10 08:52 | HHI.PR ---
Review/Management Diagnosis CSF shows leukocytosis c/w meningitis. Probable asceptic meningitis. CSF culture negative. Opening Pressure is normal (16 cm H2O) consistent with normal shunt functioning. Her headache is most likely related to meningitis. Plan continue pain management for DELCID Diagnosis/Plan: Subjective Subjective Comments No acute events reported c/o severe headache left side strength improving Active Medications Current Medications Medications (Trade) Dose Ordered Sig/Jd Route Start Time Stop Time Status Last Admin (NS Flush) 2 ml BID IV FLUSH 10/05/17 21:00 10/10/17 08:18 (NS Flush) 2 ml UNSCH PRN IV FLUSH 10/05/17 13:45 10/10/17 03:35 Sodium Chloride 1,000 ml @ 70 mls/hr [id number] IV 10/05/17 13:36 10/10/17 02:23 (Tylenol) 650 mg Q4H PRN PO 10/05/17 16:00 (Narcan Inj) 0.4 mg UNSCH PRN IV PUSH 10/05/17 16:00 (Yojana-Colace) 1 tab BID PO 10/05/17 21:00 10/10/17 08:17 (Milk Of Magnesia Liq) 30 ml Q12H PRN PO 10/05/17 16:00 (Senokot) 17.2 mg Q12H PRN PO 10/05/17 16:00 (Dulcolax Supp) 10 mg DAILY PRN RECTAL 10/05/17 16:00 (Lactulose Liq) 30 ml DAILY PRN PO 10/05/17 16:00 ([place] 5-325 Mg) 1 tab Q4H PRN PO 10/05/17 16:00 10/06/17 00:48 ([place] 10-325 Mg) 1 tab Q4H PRN PO 10/05/17 16:00 10/10/17 02:33 (Narcan Inj) 0.4 mg UNSCH PRN IV PUSH 10/05/17 16:00 (Topamax) 100 mg BID PO 10/05/17 21:00 10/10/17 08:17 Pharmacy Profile Note 0 ml @ 0 mls/hr UNSCH OTHER 10/06/17 00:30 Cefepime HCl 2000 mg/Sodium Chloride 100 ml @ 200 mls/hr Q8H IV 6/11/18 03:00 10/10/17 02:23 Vancomycin HCl 1500 mg/Sodium Chloride 515 ml @ 257.5 mls/ hr Q12H IV 10/06/17 15:00 10/10/17 02:23 [place] [place] [facility] [facility] [place] 1 UNSCH PRN XX 10/07/17 11:45 10/10/17 11:44 (Zofran Odt) 4 mg Q4H PRN PO 10/08/17 09:30 10/09/17 03:10 [place] [place] Lab Info) SPECIFIC LAB TO BE DRAWN:VANCO TROUGH DATE TO... ONCE ONCE .XX 10/10/17 14:45 10/10/17 14:46 (Duragesic 25 Mcg Patch.72 Hr) 1 patch Q3D T-DERMAL 10/09/17 16:00 10/09/17 17:23 Miscellaneous Information 1 Q3D T-DERMAL 10/12/17 16:00 (Morphine Inj) 4 mg Q4H PRN IV PUSH 10/10/17 10:00 UNV Allergies Allergies Coded Allergies Sulfa (Sulfonamide Antibiotics) (Verified Allergy, Severe, RASH, 10/05/17) amoxicillin (Verified Allergy, Severe, Anaphylaxis, 10/05/17) ketorolac (Verified Allergy, Severe, Anaphylaxis, 10/05/17) ibuprofen (Verified Allergy, Intermediate, HIVES, FACIAL SWELLING., 10/05/17) tramadol (Verified Allergy, Intermediate, HIVES, 10/05/17) latex (Verified Allergy, Unknown, 10/05/17) penicillin G (Verified Allergy, Unknown, HIVES, 10/05/17) prochlorperazine (Verified Allergy, Unknown, HIVES, 10/05/17) sumatriptan (Verified Adverse Reaction, Severe, VOMITING PASSED OUT, 10/05/17) Review of Systems All other ROS: ROS reviewed as documented in chart Exam I&O / VS Vital Signs Date Time Temp Pulse Resp B/P (MAP) Pulse Ox O2 Delivery O2 Flow Rate FiO2 10/10/17 04:00 97.9 60 18 106/59 (75) 98 10/10/17 00:00 97.5 60 18 117/54 (75) 99 10/09/17 20:00 98.9 52 18 115/55 (75) 96 10/09/17 16:00 59 18 127/67 (87) 98 10/09/17 12:00 97.3 58 18 123/77 (92) 99 General: Alert and Oriented, No acute distress Eye: EOMI Respiratory: Non-labored respirations Cardiology: Normal rate Musculoskeletal: ROM Neurologic: Alert, Oriented, Normal sensory, Normal motor, No focal defects Psychiatric: Cooperative, Appropriate mood & affect, Normal judgement Exam Comments alert, speech normal CN intact MOTOR 5/5 LUE, 5/5 RUE Objective Micro and Labs Date/Time Source Procedure Growth Status 10/06/17 14:22 Blood Peripheral Aerobic Blood Culture - Preliminary NO GROWTH IN 3 DAYS Resulted 10/06/17 14:22 Blood Peripheral Anaerobic Blood Culture - Preliminary NO GROWTH IN 3 DAYS Resulted 10/08/17 12:15 Cerebral Spinal Fluid Lumbar Puncture Acid Fast Stain - Final NO ACID FAST BACILLI SEEN Resulted 10/08/17 12:15 Cerebral Spinal Fluid Lumbar Puncture Mycobacterial Culture Pending Resulted Antonio Haddad MD PhD Oct 10, 2017 08:52
[2017-10-10 10:36] LABS: AUTOMATED NEUTROPHIL # 5.3 TH/MM3 (1.8-7.7); BASOPHIL % 0.4 % (0.0-2.0); EOSINOPHIL # 0.2 TH/MM3 (0-0.4); EOSINOPHIL % 2.7 % (0.0-4.0); HEMATOCRIT 33.3 % (35.0-46.0); HEMOGLOBIN 10.9 GM/DL (11.6-15.3); LYMPH % 30.2 % (9.0-44.0); LYMPHOCYTE # 2.6 TH/MM3 (1.0-4.8); MEAN CELL VOLUME 80.2 FL (80.0-100.0); MEAN CORPUSCULAR HEMOGLOBIN 26.2 PG (27.0-34.0); MEAN CORPUSCULAR HGB CONC 32.7 % (32.0-36.0); MEAN PLATELET VOLUME 7.5 FL (7.0-11.0); MONO % 5.6 % (0.0-8.0); MONOCYTE # 0.5 TH/MM3 (0-0.9); NEUT % 61.1 % (16.0-70.0); PLATELET COUNT 469 TH/MM3 (150-450); RED BLOOD COUNT 4.14 MIL/MM3 (4.00-5.30); RED CELL DISTRIBUTION WIDTH 13.6 % (11.6-17.2); WHITE BLOOD COUNT 8.6 TH/MM3 (4.0-11.0)
[2017-10-10 10:44] LABS: CREATININE 0.49 MG/DL (0.50-1.00)
[2017-10-10 10:55] LABS: ALBUMIN 2.6 GM/DL (3.4-5.0); AST (GOT) 23 U/L (15-37); BICARBONATE 23.7 MEQ/L (21.0-32.0); BLOOD UREA NITROGEN 9 MG/DL (7-18); CALCIUM 8.9 MG/DL (8.5-10.1); CHLORIDE 110 MEQ/L (98-107); CREATININE 0.59 MG/DL (0.50-1.00); GLOMERULAR FILTRATION RATE 118 ML/MIN (>89); GLUCOSE,RANDOM 97 MG/DL (74-106); MAGNESIUM 2.2 MG/DL (1.5-2.5); SODIUM (NA) 144 MEQ/L (136-145)
[2017-10-10 10:59] LABS: ALKALINE PHOSPHATASE 84 U/L (45-117); ALT (GPT) 32 U/L (10-53); TOTAL BILIRUBIN ADULT 0.2 MG/DL (0.2-1.0)
--- NOTE | 2017-10-10 13:03 | HHI.NSPN ---
(Chandrakant Yeung) History Chief Complaint: Some surgical site pain. (Chandrakant Yeung) Interval History 10/08: 32-year-old female with history of pseudotumor cerebri. Status post lumboperitoneal shunt placement with subsequent revision August 2017. She had a protracted postoperative course as an inpatient with multiple complaints including intermittent headaches, abdominal discomfort, nausea. She presented back to the emergency room with some strokelike symptoms, although the patient states that she just felt dizzy with an increased headache. Today she states that she has a headache near the cervical occipital region. No significant nausea today. She complains of intermittent diffuse abdominal discomfort. No diarrhea. She has been noted to have positive fever upon admission, was started on IV antibiotics with infectious disease consultation. Patient was tentatively scheduled for lumbar puncture, which she declined over the past day or 2. 10/09: This afternoon when seen the patient is awake and alert in the bed. She says she does have some surgical site pain. She also says that she has meningitis although she is not on any special precautions. She did have WBCs and an elevated protein in her CSF specimen sent to the lab but no organisms were seen on Gram stain. So far there has been no growth in the CSF for 24 hours. Upon examination she is mildly tender to the left anterolateral surgical site. There are no evident sensorimotor deficits to the lower extremities. 10/10: When seen the patient is awake in bed on her left side. She quickly shows me a photo of the therapy dog in bed with her earlier. She states that she has a headache and pain to the back and the abdomen. She also reports numbness to the upper extremities. Prior to being seen Physical Therapy informed this practitioner that the patient was able to get up from bed on her own and ambulate 800 feet with standby guard, then get back in bed. The patient was tender to palpation of the complete midline spine and the mid right abdominal wall. Her muscle strength was essentially normal to all extremities and she was slightly reluctant to participate in motor testing. (Chandrakant Yeung) Exam Results 6/10/08/17 10/09/17 10/09/17 10/10/17 10/10/17 06:00 18:00 06:00 18:00 06:00 18:00 Intake Total 100 ml 600 ml 100 ml 100 ml Balance 100 ml 600 ml 100 ml 100 ml IV Total 100 ml 600 ml 100 ml 100 ml # Voids 3 8 Vital Signs Date Time Temp Pulse Resp B/P (MAP) Pulse Ox O2 Delivery O2 Flow Rate FiO2 10/10/17 08:00 97.9 56 16 138/68 (91) 94 10/10/17 04:00 97.9 60 18 106/59 (75) 98 10/10/17 00:00 97.5 60 18 117/54 (75) 99 10/09/17 20:00 98.9 52 18 115/55 (75) 96 10/09/17 16:00 59 18 127/67 (87) 98 10/09/17 12:00 97.3 58 18 123/77 (92) 99 10/09/17 08:00 97.8 61 18 116/57 (76) 97 10/09/17 04:00 98.6 46 16 98/55 (69) 95 10/09/17 00:00 98.4 77 16 118/64 (82) 93 10/08/17 20:00 98.6 57 16 114/57 (76) 99 10/08/17 16:36 98.9 64 18 119/67 (84) 99 10/08/17 14:22 98.9 55 18 128/62 (84) 98 10/08/17 07:45 97.8 84 18 112/68 (83) 99 10/08/17 05:45 14 10/08/17 04:51 98.1 61 18 124/71 (88) 98 10/08/17 00:07 97.9 51 17 108/58 (75) 96 10/07/17 20:51 98.2 60 16 119/74 (89) 96 10/07/17 16:00 98.5 58 18 120/71 (87) 99 10/07/17 13:00 98.2 53 18 120/71 (87) 99 (Chandrakant Yeung) Physical Examination GENERAL: Awake & alert in bed. Affect normal. Readily interacts. No apparent distress. SKIN: Abdominal wall surgical sites w/o any signs of infection or drainage. Back w/o any signs of infection, incision looks good. HEENT: Normocephalic, atraumatic. PERRLA 3 mm brisk, EOMI. Apparent photophobia , closed eyes to bright light to check pupil response. GASTROINTESTINAL: Mildly TTP to the mid right abdominal wall. MUSCULOSKELETAL: HOUSE spontaneously & purposefully w/o difficulty. Exquisitely TTP of the cervical and thoracolumbar spines. NEUROLOGICAL: AAOx3. Speech clear & appropriate. Follows simple commands w/o difficulty. Sensation intact to light touch to all extremities. Motor strength is essentially normal to all extremities, reluctant to participate but did. (Chandrakant Yeung) Lab, Micro, Other Results Recent Impressions Lumbar Puncture Fluoroscopy 10/08/17 0000 Signed Impressions: CONCLUSION: 1. Uncomplicated fluoroscopically guided lumbar puncture with pressures as abo ve. Laboratory Tests Test 10/07/17 15:05 10/08/17 05:14 10/08/17 12:15 10/10/17 08:09 Vancomycin Level Trough 16.4 MCG/ML White Blood Count 7.1 TH/MM3 Red Blood Count 3.78 MIL/MM3 Hemoglobin 10.1 GM/DL Hematocrit 30.7 % Mean Corpuscular Volume 81.3 FL Mean Corpuscular Hemoglobin 26.7 PG Mean Corpuscular Hemoglobin Concent 32.9 % Red Cell Distribution Width 13.7 % Platelet Count 408 TH/MM3 Mean Platelet Volume 7.6 FL Neutrophils (%) (Auto) 45.0 % Lymphocytes (%) (Auto) 43.3 % Monocytes (%) (Auto) 7.5 % Eosinophils (%) (Auto) 3.5 % Basophils (%) (Auto) 0.7 % Neutrophils # (Auto) 3.2 TH/MM3 Lymphocytes # (Auto) 3.1 TH/MM3 Monocytes # (Auto) 0.5 TH/MM3 Eosinophils # (Auto) 0.2 TH/MM3 Basophils # (Auto) 0.0 TH/MM3 CBC Comment DIFF FINAL Differential Comment Blood Urea Nitrogen 9 MG/DL Creatinine 0.60 MG/DL 0.49 MG/DL Random Glucose 105 MG/DL Albumin 2.3 GM/DL Calcium Level 8.4 MG/DL Phosphorus Level 4.2 MG/DL Magnesium Level 2.1 MG/DL Sodium Level 143 MEQ/L Potassium Level 3.6 MEQ/L Chloride Level 110 MEQ/L Carbon Dioxide Level 23.0 MEQ/L Anion Gap 10 MEQ/L Estimat Glomerular Filtration Rate 116 ML/MIN 146 ML/MIN CSF Volume (Tube 1) 4.0 ML CSF Supernatant Color (tube 1) CLEAR CSF Gross Blood (Tube 1) 0 CSF Volume (Tube 2) 4.9 ML CSF Supernatant Color (tube 2) CLEAR CSF Gross Blood (Tube 2) 0 CSF Volume (Tube 3) 4.8 ML CSF Supernatant Color (tube 3) CLEAR CSF Gross Blood (Tube 3) 0 CSF Volume (Tube 4) 5.5 ML CSF Supernatant Color (tube 4) CLEAR CSF Gross Blood (Tube 4) 0 CSF WBC (Tube 4) 120 /MM3 CSF RBC (Tube 4) 35 /MM3 CSF Neutrophils 31 % CSF Lymphocytes 48 % CSF Monocytes 20 % CSF Eosinophils 1 % CSF Glucose 51 MG/DL CSF Total Protein 50.3 MG/DL Herpes Simplex Virus I DNA (PCR) Negative Herpes Simplex Virus II DNA (PCR) Negative Test 10/10/17 10:01 White Blood Count 8.6 TH/MM3 Red Blood Count 4.14 MIL/MM3 Hemoglobin 10.9 GM/DL Hematocrit 33.3 % Mean Corpuscular Volume 80.2 FL Mean Corpuscular Hemoglobin 26.2 PG Mean Corpuscular Hemoglobin Concent 32.7 % Red Cell Distribution Width 13.6 % Platelet Count 469 TH/MM3 Mean Platelet Volume 7.5 FL Neutrophils (%) (Auto) 61.1 % Lymphocytes (%) (Auto) 30.2 % Monocytes (%) (Auto) 5.6 % Eosinophils (%) (Auto) 2.7 % Basophils (%) (Auto) 0.4 % Neutrophils # (Auto) 5.3 TH/MM3 Lymphocytes # (Auto) 2.6 TH/MM3 Monocytes # (Auto) 0.5 TH/MM3 Eosinophils # (Auto) 0.2 TH/MM3 Basophils # (Auto) 0.0 TH/MM3 CBC Comment DIFF FINAL Differential Comment Blood Urea Nitrogen 9 MG/DL Creatinine 0.59 MG/DL Random Glucose 97 MG/DL Total Protein 7.0 GM/DL Albumin 2.6 GM/DL Calcium Level 8.9 MG/DL Phosphorus Level 3.0 MG/DL Magnesium Level 2.2 MG/DL Alkaline Phosphatase 84 U/L Aspartate Amino Transf (AST/SGOT) 23 U/L Alanine Aminotransferase (ALT/SGPT) 32 U/L Total Bilirubin 0.2 MG/DL Sodium Level 144 MEQ/L Potassium Level 3.8 MEQ/L Chloride Level 110 MEQ/L Carbon Dioxide Level 23.7 MEQ/L Anion Gap 10 MEQ/L Estimat Glomerular Filtration Rate 118 ML/MIN (Chandrakant Yeung) Medical Decision Making Impression and Plan Impression: 1. Status post lumboperitoneal shunt with subsequent revision. Patient now presents with fever, increased WBC. 2. Chronic headaches. Etiology undetermined. She has a history of previous migraine headaches. Her headaches have fluctuated significantly on a daily basis over the past month. The patient complains headache, back pain & abdominal pain. Also reports upper extremity numbness. She does have some mild pain to the mid right abdominal wall. She is tender to palpation of the entire spine. Photophobia. Past 24 hrs: Afebrile. Intermittent bradycardia. Reviewed labs for today. Improvement in haemoglobin level. Thrombocytosis. CSF cultures () w/few WBCs and no organisms seen on final Gram stain, no growth x48 hrs, preliminary. Blood cultures x2 () w/no growth x4 days, preliminary. CSF specimen with 120 WBC & 35 RBC, total protein 50.3. CT/CTA brain unremarkable. MRI/MRA brain unremarkable. CTA neck unremarkable. Plan: Primary management per Hospitalist. Antibiotics per Infectious Disease. Mobilise patient w/assistance as needed. Will follow culture results. (Chandrakant Yeung) Attending Statement The exam, history, and the medical decision-making described in the above note were completed with the assistance of the mid-level provider. I reviewed and agree with the findings presented. I attest that I had a [id number] encounter with the patient on the same day, and personally performed and documented my assessment and findings in the medical record. Remains awake and alert. No nuchal rigidity. Ambulated approximately 800 feet with minimal assist in therapy today. Continuing IV antibiotics through 10/16/2017 per infectious disease recommendations. Consider follow-up lumbar puncture off antibiotics following completion of present course of treatment. (Mamadou Cerrato MD) Chandrakant Yeung Oct 10, 2017 13:03 Mamadou Cerrato MD Oct 10, 2017 19:34
--- NOTE | 2017-10-10 13:10 | PD.CONS ---
[facility] Service Rehabilitation Medicine Consult Requested By Antonio Haddad MD Reason for Consult Comprehensive rehabilitation evaluation. Primary Care Physician Unknown History of Present Illness Latia Mayberry is a 32 year old right hand dominant female admitted to [facility] 10/07/17 with severe headache and left sided weakness. She underwent revision of lumboperitoneal shunt 09/19/17. She was noted to be septic on admission with meningitis. She was treated with IV antibiotics per ID recommendations. CSF culture negative but CSF leukocytosis. Brain MRI 10/05/17 negative for acute change Review of Systems ROS Limitations: Other (Headache) Constitutional: COMPLAINS OF: Fatigue Eyes: COMPLAINS OF: Photosensitivity, DENIES: Blurred vision, Diplopia Ears, nose, mouth, throat: COMPLAINS OF: Hearing loss, DENIES: Throat pain Respiratory: DENIES: Cough, Shortness of breath Cardiovascular: DENIES: Chest pain Gastrointestinal: DENIES: Abdominal pain, Difficulty Swallowing Neurologic: COMPLAINS OF: Headache, Localized weakness (Left), Paresthesias ( Left), Speech Problems (Word finding difficulties) Psychiatric: COMPLAINS OF: Confusion (Reports decreased short term memory) Past Family Social History Allergies: Coded Allergies: Sulfa (Sulfonamide Antibiotics) (Verified Allergy, Severe, RASH, 10/05/17) amoxicillin (Verified Allergy, Severe, Anaphylaxis, 10/05/17) ketorolac (Verified Allergy, Severe, Anaphylaxis, 10/05/17) anaphylaxis per patient ibuprofen (Verified Allergy, Intermediate, HIVES, FACIAL SWELLING., ) tramadol (Verified Allergy, Intermediate, HIVES, 10/05/17) hives, sewll up latex (Verified Allergy, Unknown, 10/05/17) penicillin G (Verified Allergy, Unknown, HIVES, 10/05/17) prochlorperazine (Verified Allergy, Unknown, HIVES, 10/05/17) sumatriptan (Verified Adverse Reaction, Severe, VOMITING PASSED OUT, ) Past Medical History Pseudotumor cerebri Migraine Past Surgical History Revision lumboperitoneal shunt Current Medications Current Medications Medications (Trade) Dose Ordered Sig/Jd Route Start Time Stop Time Status Last Admin (NS Flush) 2 ml BID IV FLUSH 10/05/17 21:00 10/10/17 08:18 (NS Flush) 2 ml UNSCH PRN IV FLUSH 10/05/17 13:45 10/10/17 03:35 Sodium Chloride 1,000 ml @ 70 mls/hr [id number] IV 10/05/17 13:36 10/10/17 02:23 (Tylenol) 650 mg Q4H PRN PO 10/05/17 16:00 (Narcan Inj) 0.4 mg UNSCH PRN IV PUSH 10/05/17 16:00 (Yojana-Colace) 1 tab BID PO 10/05/17 21:00 10/10/17 08:17 (Milk Of Magnesia Liq) 30 ml Q12H PRN PO 10/05/17 16:00 (Senokot) 17.2 mg Q12H PRN PO 10/05/17 16:00 (Dulcolax Supp) 10 mg DAILY PRN RECTAL 10/05/17 16:00 (Lactulose Liq) 30 ml DAILY PRN PO 10/05/17 16:00 ([place] 5-325 Mg) 1 tab Q4H PRN PO 10/05/17 16:00 10/06/17 00:48 ([place] 10-325 Mg) 1 tab Q4H PRN PO 10/05/17 16:00 10/10/17 10:24 (Narcan Inj) 0.4 mg UNSCH PRN IV PUSH 10/05/17 16:00 (Topamax) 100 mg BID PO 10/05/17 21:00 10/10/17 08:17 Pharmacy Profile Note 0 ml @ 0 mls/hr UNSCH OTHER 10/06/17 00:30 Cefepime HCl 2000 mg/Sodium Chloride 100 ml @ 200 mls/hr Q8H IV 10/06/17 03:00 10/10/17 10:25 Vancomycin HCl 1500 mg/Sodium Chloride 515 ml @ 257.5 mls/ hr Q12H IV 10/06/17 15:00 10/10/17 02:23 (Zofran Odt) 4 mg Q4H PRN PO 10/08/17 09:30 10/09/17 03:10 ([facility] Ordered Lab Info) SPECIFIC LAB TO BE DRAWN:VANCO TROUGH DATE TO... ONCE ONCE .XX 10/10/17 14:45 10/10/17 14:46 (Duragesic 25 Mcg Patch.72 Hr) 1 patch Q3D T-DERMAL 10/09/17 16:00 10/09/17 17:23 Miscellaneous Information 1 Q3D T-DERMAL 10/12/17 16:00 (Morphine Inj) 4 mg Q4H PRN IV PUSH 10/10/17 10:00 10/10/17 12:15 Exam I&O / VS 10/10/17 10/10/17 10/11/17 15:00 23:00 07:00 Intake Total 100 ml Balance 100 ml IV Total 100 ml Vital Signs Date Time Temp Pulse Resp B/P (MAP) Pulse Ox O2 Delivery O2 Flow Rate FiO2 10/10/17 08:00 97.9 56 16 138/68 (91) 94 10/10/17 04:00 97.9 60 18 106/59 (75) 98 10/10/17 00:00 97.5 60 18 117/54 (75) 99 10/09/17 20:00 98.9 52 18 115/55 (75) 96 10/09/17 16:00 59 18 127/67 (87) 98 General: Mild distress (Headache) Respiratory: Lungs CTA, Non-labored respirations, BS equal Gastrointestinal: Positive Bowel Sounds, Non-Distended, Non-Tender Cardiovascular: Normal rate, No edema, Regular Rhythm Skin: No rash Musculoskeletal: ROM (Within functional limits) Psychiatric: Cooperative Orientation: oriented to Self, oriented to Place, oriented to Time, oriented to Situation Neurologic: Cranial Nerves (Intact 2-12), Speech (No dsyarthria), Other Motor: Right Upper Extremity (5/5), Left Upper Extremity (At least 4/[address]), Right Lower Extremity (5/5), Left Lower Extremity (At least 4/5with give way strength) Sensory Decreased on left by 75% compared to right DTRs: Normal Clonus: Negative Assessment and Plan Diagnosis: (1) Status post lumboperitoneal shunt placement ICD Codes: Z98.2 - Presence of cerebrospinal fluid drainage device (2) Pseudotumor cerebri ICD Codes: G93.2 - Benign intracranial hypertension (3) Meningitis ICD Codes: G03.9 - Meningitis, unspecified Assessment 1. Meningitis 2. Impaired mobility 3. Migraine 4. Revision of lumboperitoneal shunt Plan 1. PT consult to mobilize anticipating that patient will progress well 2. ST for cognitive evaluation. Patient reports short term memory and attention difficulties 3. Anticipate that patient will not need inpatient rehabilitation at discharge. 4. Will follow in conjunction with case management for outpatient rehab needs 5. Will follow while hospitalized and at discharge as needed. Thank you for this consult. Marianna Schneider MD Oct 10, 2017 13:10
--- NOTE | 2017-10-10 13:25 | HHI.PR ---
Subjective Remarks Deferred entry, the patient was seen earlier at 11:15 AM. The patient was crying during my interview very upset because her lunch tray was not put in the room. Apparently the patient has been having some bizarre behavior towards male entering her room so the lunch tray will not be carried in to the room if the person caring it is not a female. The patient complains of headache and back pain. Denies fevers or chills. Denies nausea, vomiting, abdominal pain. Objective Vitals Vital Signs Date Time Temp Pulse Resp B/P (MAP) Pulse Ox O2 Delivery O2 Flow Rate FiO2 10/10/17 08:00 97.9 56 16 138/68 (91) 94 10/10/17 04:00 97.9 60 18 106/59 (75) 98 10/10/17 00:00 97.5 60 18 117/54 (75) 99 10/09/17 20:00 98.9 52 18 115/55 (75) 96 10/09/17 16:00 59 18 127/67 (87) 98 I/O 10/09/17 10/09/17 10/09/17 10/10/17 10/10/17 10/10/17 07:00 15:00 23:00 07:00 15:00 23:00 Intake Total 100 ml 600 ml 100 ml Balance 100 ml 600 ml 100 ml IV Total 100 ml 600 ml 100 ml # Voids 3 5 3 Result Diagram: 10/10/17 1001 10/10/17 1001 Imaging Last Impressions Lumbar Puncture Fluoroscopy 10/08/17 0000 Signed Impressions: CONCLUSION: 1. Uncomplicated fluoroscopically guided lumbar puncture with pressures as abo ve. Neck CTA 10/05/17 1238 Signed Impressions: CONCLUSION: 1. Negative CTA carotids. Head CTA 10/05/17 1238 Signed Impressions: CONCLUSION: 1. Unremarkable CTA brain. Head Magnetic Resonance Angiography 10/05/17 0000 Signed Impressions: CONCLUSION: 1. Unremarkable MRA brain. Head CT 10/05/17 0000 Signed Impressions: CONCLUSION: 1. Negative CT Head non contrast. Chest X-Ray 10/05/17 0000 Signed Impressions: CONCLUSION: No active disease. Brain MRI 10/05/17 0000 Signed Impressions: CONCLUSION: 1. Unremarkable MRI brain for age. Objective Remarks GENERAL: Patient lying in bed. Awake, alert. Appears comfortable. Alert and oriented 3. SKIN: Warm and dry. Lower lumbar area with incision clean dry and intact. HEAD: Normocephalic. EYES: No scleral icterus. No injection or drainage. NECK: Supple, trachea midline. No JVD. CARDIOVASCULAR: Regular rate and rhythm without murmurs, gallops, or rubs. RESPIRATORY: Breath sounds equal bilaterally. No accessory muscle use. GASTROINTESTINAL: Mild tenderness to palpation of mid abdomen. Abdominal incisions look C/T/I. MUSCULOSKELETAL: No cyanosis, or edema. BACK: Nontender without obvious deformity. No CVA tenderness. A/P Problem List: (1) Sepsis ICD Code: A41.9 - Sepsis, unspecified organism Plan: Sepsis present on admission. As per medical records the patient had fever, leukocytosis and ESR of 88. Suspect it is possible shunt infection given recent surgery. Chest x-ray negative. Sepsis most likely secondary to meningitis after procedure. Continue IV antibiotics as per infectious disease recommendations. Patient is currently on IV vancomycin, IV cefepime Follow-up CSF culture. ID recommends treatment with IV antibiotics for 10-14 days with adjustment depending on the CSF culture results. Lumbar puncture recommended in the future if she develops recurrent fever following this course of treatment. Physical therapy consultation ordered. (2) Meningitis ICD Code: G03.9 - Meningitis, unspecified Plan: As above. (3) Pseudotumor cerebri ICD Code: G93.2 - Benign intracranial hypertension Plan: Status post lumbar peritoneal shunt with revision, monitor. Patient with normal opening pressures. (4) Leukocytosis ICD Code: D72.829 - Elevated white blood cell count, unspecified Plan: Likely secondary to sepsis secondary to meningitis. Leukocytosis resolving and trending down. Monitor CBC. (5) Headache ICD Code: R51 - Headache Status: Acute Plan: Patient with uncontrolled severe pain. Continue pain control with oral [place], I IV morphine as needed, I will add a 25 mcg fentanyl patch. (6) Hypokalemia ICD Code: E87.6 - Hypokalemia Plan: Hypokalemia resolved. Potassium level now 3.6. Continue to monitor BMP. Assessment and Plan SCDs for DVT prophylaxis, add heparin subcutaneously. Discharge Planning Continue to monitor on the medical floor. The patient will need neurology and ID clearance. Problem Qualifiers (1) Sepsis: Qualified Codes: A41.9 - Sepsis, unspecified organism (2) Leukocytosis: Qualified Codes: D72.829 - Elevated white blood cell count, unspecified (3) Headache: Adam Lopez MD Oct 10, 2017 13:25
[2017-10-10] MEDS ORDERED: PHARMACY ORDERED LAB ONE (14:45)
--- NOTE | 2017-10-10 14:57 | HHI.IDPN ---
Note Infectious Disease Note Patient is complaining of headache at the posterior aspect of her head. She reports that the pain is 8/10 scale. She reports nausea. She looks comfortable. Ambulated the [place] this morning. She reports that she has a feeling of cloudiness around her head when she gets up. Afebrile. CSF reveals 120 white cells. CSF culture has no growth. 32-year-old white female who was recently discharged from the hospital on 10/03/2017. The patient underwent revision of a ventriculoperitoneal shunt that was previously placed on 08/12/2017. The revision was on 09/19/2017. The patient was brought into the emergency department as a stroke alert. She developed headache and she was brought to the emergency department to be evaluated. She had elevated temperature of 102 degrees. She notes that she has been having nausea and vomiting over the past couple of days and very poor appetite to the point where she has not been eating. She notes that she has double vision, but this has been unchanged. PAST MEDICAL HISTORY: Pseudotumor cerebri status post ventriculoperitoneal shunt placement and revision, asthma, hypertension, history of seizures, cholecystectomy, hysterectomy, history of kidney stones. ALLERGIES: SULFA, AMOXICILLIN, PENICILLIN G, IBUPROFEN, KETOROLAC, PROCHLORPERAZINE, SUMATRIPTAN, TRAMADOL, LATEX. MEDICATIONS: Current Medications Medications (Trade) Dose Ordered Sig/Jd Route PRN Reason Start Time Stop Time Status Last Admin Dose Admin Sodium Chloride (NS Flush) 2 ml BID IV FLUSH 10/05/17 21:00 10/10/17 08:18 Sodium Chloride (NS Flush) 2 ml UNSCH PRN IV FLUSH FLUSH AFTER USING IV ACCESS 10/05/17 13:45 10/10/17 03:35 Sodium Chloride 1,000 ml @ 70 mls/hr [id number] IV 10/05/17 13:36 10/10/17 02:23 Acetaminophen (Tylenol) 650 mg Q4H PRN PO TEMP > 100.4 10/05/17 16:00 Naloxone HCl (Narcan Inj) 0.4 mg UNSCH PRN IV PUSH SEE LABEL COMMENTS 10/05/17 16:00 Senna/Docusate Sodium (Yojana-Colace) 1 tab BID PO 10/05/17 21:00 10/10/17 08:17 Magnesium Hydroxide (Milk Of Magnesia Liq) 30 ml Q12H PRN PO Mild constipation 10/05/17 16:00 Sennosides (Senokot) 17.2 mg Q12H PRN PO Moderate constipation 10/05/17 16:00 Bisacodyl (Dulcolax Supp) 10 mg DAILY PRN RECTAL SEVERE CONSITIPATION 10/05/17 16:00 Lactulose (Lactulose Liq) 30 ml DAILY PRN PO SEVERE CONSITIPATION 10/05/17 16:00 Acetaminophen/ Hydrocodone Bitart (Bedias 5-325 Mg) 1 tab Q4H PRN PO PAIN SCALE 3 TO 5 10/05/17 16:00 10/06/17 00:48 Acetaminophen/ Hydrocodone Bitart (Bedias 10-325 Mg) 1 tab Q4H PRN PO PAIN SCALE 6 TO 10 10/05/17 16:00 10/10/17 14:28 Naloxone HCl (Narcan Inj) 0.4 mg UNSCH PRN IV PUSH SEE LABEL COMMENTS 10/05/17 16:00 Topiramate (Topamax) 100 mg BID PO 10/05/17 21:00 10/10/17 08:17 Pharmacy Profile Note 0 ml @ 0 mls/hr UNSCH OTHER 10/06/17 00:30 Cefepime HCl 2000 mg/Sodium Chloride 100 ml @ 200 mls/hr Q8H IV 10/06/17 03:00 10/10/17 10:25 Vancomycin HCl 1500 mg/Sodium Chloride 515 ml @ 257.5 mls/ hr Q12H IV 10/06/17 15:00 10/10/17 02:23 Ondansetron HCl (Zofran Odt) 4 mg Q4H PRN PO NAUSEA 10/08/17 09:30 10/09/17 03:10 Fentanyl (Duragesic 25 Mcg Patch.72 Hr) 1 patch Q3D T-DERMAL 10/09/17 16:00 10/09/17 17:23 Miscellaneous Information 1 Q3D T-DERMAL 10/12/17 16:00 Morphine Sulfate (Morphine Inj) 4 mg Q4H PRN IV PUSH HEADACHE 10/10/17 10:00 10/10/17 12:15 SOCIAL HISTORY: The patient is . Denies tobacco. Denies alcohol use. Denies illicit drug use. Objective: Vital Signs Date Time Temp Pulse Resp B/P (MAP) Pulse Ox O2 Delivery O2 Flow Rate FiO2 10/08/17 14:22 98.9 55 18 128/62 (84) 98 10/08/17 07:45 97.8 84 18 112/68 (83) 99 10/08/17 05:45 14 10/08/17 04:51 98.1 61 18 124/71 (88) 98 10/08/17 00:07 97.9 51 17 108/58 (75) 96 10/07/17 20:51 98.2 60 16 119/74 (89) 96 10/07/17 16:00 98.5 58 18 120/71 (87) 99 Laboratory Tests Test 10/07/17 07:23 10/08/17 05:14 White Blood Count 9.9 TH/MM3 7.1 TH/MM3 Red Blood Count 3.75 MIL/MM3 3.78 MIL/MM3 Hemoglobin 9.8 GM/DL 10.1 GM/DL Hematocrit 30.7 % 30.7 % Mean Corpuscular Volume 81.8 FL 81.3 FL Mean Corpuscular Hemoglobin 26.0 PG 26.7 PG Mean Corpuscular Hemoglobin Concent 31.8 % 32.9 % Red Cell Distribution Width 13.6 % 13.7 % Platelet Count 340 TH/MM3 408 TH/MM3 Mean Platelet Volume 7.7 FL 7.6 FL Neutrophils (%) (Auto) 49.4 % 45.0 % Lymphocytes (%) (Auto) 40.0 % 43.3 % Monocytes (%) (Auto) 7.4 % 7.5 % Eosinophils (%) (Auto) 2.8 % 3.5 % Basophils (%) (Auto) 0.4 % 0.7 % Neutrophils # (Auto) 4.9 TH/MM3 3.2 TH/MM3 Lymphocytes # (Auto) 4.0 TH/MM3 3.1 TH/MM3 Monocytes # (Auto) 0.7 TH/MM3 0.5 TH/MM3 Eosinophils # (Auto) 0.3 TH/MM3 0.2 TH/MM3 Basophils # (Auto) 0.0 TH/MM3 0.0 TH/MM3 CBC Comment AUTO DIFF DIFF FINAL Differential Comment AUTO DIFF CONFIRMED Platelet Estimate NORMAL Platelet Morphology Comment CLUMPED Laboratory Tests Test 10/07/17 07:23 10/08/17 05:14 Blood Urea Nitrogen 9 MG/DL 9 MG/DL Creatinine 0.51 MG/DL 0.60 MG/DL Random Glucose 96 MG/DL 105 MG/DL Albumin 2.0 GM/DL 2.3 GM/DL Calcium Level 8.1 MG/DL 8.4 MG/DL Phosphorus Level 3.4 MG/DL 4.2 MG/DL Magnesium Level 2.1 MG/DL 2.1 MG/DL Sodium Level 143 MEQ/L 143 MEQ/L Potassium Level 3.5 MEQ/L 3.6 MEQ/L Chloride Level 113 MEQ/L 110 MEQ/L Carbon Dioxide Level 21.3 MEQ/L 23.0 MEQ/L Anion Gap 9 MEQ/L 10 MEQ/L Estimat Glomerular Filtration Rate 140 ML/MIN 116 ML/MIN Microbiology Date/Time Source Procedure Growth Status 10/06/17 14:22 Blood Peripheral Aerobic Blood Culture - Preliminary NO GROWTH IN 2 DAYS Resulted 10/06/17 14:22 Blood Peripheral Anaerobic Blood Culture - Preliminary NO GROWTH IN 2 DAYS Resulted 10/06/17 14:16 Blood Peripheral Aerobic Blood Culture - Preliminary NO GROWTH IN 2 DAYS Resulted 10/06/17 14:16 Blood Peripheral Anaerobic Blood Culture - Preliminary NO GROWTH IN 2 DAYS Resulted 10/08/17 12:15 Cerebral Spinal Fluid Lumbar Puncture Acid Fast Stain Pending Received 10/08/17 12:15 Cerebral Spinal Fluid Lumbar Puncture Mycobacterial Culture Pending Received 10/08/17 12:15 Cerebral Spinal Fluid Lumbar Puncture Fungal Smear - Final NO FUNGAL ELEMENTS SEEN. Resulted 10/08/17 12:15 Cerebral Spinal Fluid Lumbar Puncture Fungal Culture Pending Resulted 10/08/17 12:15 Cerebral Spinal Fluid Lumbar Puncture Gram Stain - Final Resulted 10/08/17 12:15 Cerebral Spinal Fluid Lumbar Puncture CSF Culture Pending Resulted Imaging Neck CTA 10/05/17 1238 Signed Impressions: CONCLUSION: 1. Negative CTA carotids. Head CTA 10/05/17 1238 Signed Impressions: CONCLUSION: 1. Unremarkable CTA brain. Head Magnetic Resonance Angiography 10/05/17 0000 Signed Impressions: CONCLUSION: 1. Unremarkable MRA brain. Head CT 10/05/17 0000 Signed Impressions: CONCLUSION: 1. Negative CT Head non contrast. Chest X-Ray 10/05/17 0000 Signed Impressions: CONCLUSION: No active disease. Brain MRI 10/05/17 0000 Signed Impressions: CONCLUSION: 1. Unremarkable MRI brain for age. PHYSICAL EXAMINATION: GENERAL: No acute distress. HEENT: Extraocular movements grossly intact. Pupils reactive to light. No icterus. No conjunctival erythema. Oropharynx slightly dry mucosa. No lesions visible. NECK: Supple without adenopathy. LUNGS: Clear breath sounds. HEART: Regular S1, S2. No murmurs, rubs or gallops. ABDOMEN: Bowel sounds present, obese, soft, nontender. Incisions at the abdomen from prior surgical procedure intact. No erythema. EXTREMITIES: No clubbing, cyanosis or edema. SKIN: No rash. NEUROLOGIC: No focal finding. PSYCHIATRIC: Calm and cooperative. IMPRESSION: 1. Fever, headache and leukocytosis. Secondary to meningitis. The CSF as elevated white cells which may be indicative of partially treated meningitis. She was on antibiotics 3 days before lumbar puncture was performed and that may lead to negative culture. 2. Status post recent ventriculoperitoneal shunt revision. No evidence of ELECTR[employer] DRAF[employer] shunt infection. She continues to complain of headache but the fever and white count has improved. RECOMMENDATIONS: 1. Continue vancomycin. 2. Change the cefepime to Ceftriaxone 2 g IV every 12 hours Monitor CSF studies until final. Would maintain the IV antibiotics until October 16. Micha Harrington MD Oct 10, 2017 14:57
[2017-10-10 16:00] VITALS: BP 118/67; PULSE 82; RESP 18; TEMP 98.2; O2SAT 97
[2017-10-10] MEDS: cefTRIAXone INJ 2,000 MG in SODIUM CHLORIDE 0.9% INJ 100 ML IV SCH (18:46)
[2017-10-10 19:52] LABS: CSF CRYPTOCOCCUS ANTIGEN NOT DETECTED (()); VDRL CSF NON-REACTIVE (())
[2017-10-10 20:00] VITALS: BP 131/72; PULSE 55; RESP 18; TEMP 98.6; O2SAT 99
[2017-10-10] MEDS: ONDANSETRON ODT 4 MG TAB PO PRN (20:43)
[2017-10-10 23:54] LABS: CALIFORNIA ENCEPH AB IGG <1:4 (<1:4); CALIFORNIA ENCEPH AB IGM <1:4 (<1:4); EAST EQUINE ENCEPH AB IGG <1:4 (<1:4); EAST EQUINE ENCEPH AB IGM <1:4 (<1:4); ST LOUIS ENCEPH AB IGG <1:4 (<1:4); ST LOUIS ENCEPH AB IGM <1:4 (<1:4); WEST EQUINE ENCEPH AB IGG <1:4 (<1:4); WEST EQUINE ENCEPH AB IGM <1:4 (<1:4)
[2017-10-11] VITALS: BP 106/59; PULSE 57; RESP 18; TEMP 98; O2SAT 96
[2017-10-11] MEDS: SODIUM CHLOR 0.9% 1000 ML INJ 1,000 ML IV SCH ×3 (00:53→22:12)
[2017-10-11] MEDS: MORPHINE SULFATE 4 MG/ML INJ IV PUSH PRN ×5 (00:53→19:46)
[2017-10-11] MEDS: SODIUM CHLORIDE 0.9% FLUSH 10 ML FLUSH IV FLUSH PRN ×3 (00:54→19:46)
[2017-10-11] MEDS: VANCOMYCIN INJ 1,500 MG in SODIUM CHLORID 0.9% 500 ML INJ 500 ML IV SCH ×2 (03:10→13:58)
[2017-10-11 04:00] VITALS: BP 109/71; PULSE 50; RESP 18; TEMP 97.6; O2SAT 95
[2017-10-11] MEDS: ACETAMINOPHEN/HYDROcodone 325 MG/10 MG TAB PO PRN ×5 (04:10→22:13)
[2017-10-11] MEDS: cefTRIAXone INJ 2,000 MG in SODIUM CHLORIDE 0.9% INJ 100 ML IV SCH ×2 (04:11→18:01)
[2017-10-11 08:00] VITALS: BP 125/70; PULSE 45; RESP 16; TEMP 97.7; O2SAT 94
[2017-10-11] MEDS: SODIUM CHLORIDE 0.9% FLUSH 10 ML FLUSH IV FLUSH SCH ×2 (08:33→21:00)
[2017-10-11] MEDS: TOPIRAMATE 100 MG TAB PO SCH ×2 (08:35→22:12)
[2017-10-11] MEDS: DOCUSATE SODIUM 50 MG/SENNA 8.6 MG TAB PO SCH ×2 (08:35→22:12)
--- NOTE | 2017-10-11 09:09 | HHI.PR ---
Subjective Remarks Follow-up sepsis/meningitis/pseudotumor cerebri October 11, 2017-patient seen and examined, complains of headache and neck pain along with some visual disturbances. Currently afebrile. Reports some nausea without any emesis Objective Vitals Vital Signs Date Time Temp Pulse Resp B/P (MAP) Pulse Ox O2 Delivery O2 Flow Rate FiO2 10/11/17 08:00 97.7 45 16 125/70 (88) 94 10/11/17 04:00 97.6 50 18 109/71 (84) 95 10/11/17 00:00 98.0 57 18 106/59 (75) 96 10/10/17 20:00 98.6 55 18 131/72 (91) 99 10/10/17 16:00 98.2 82 18 118/67 (84) 97 I/O 10/10/17 10/10/17 10/10/17 10/11/17 10/11/17 10/11/17 07:00 15:00 23:00 07:00 15:00 23:00 Intake Total 100 ml 515 ml Balance 100 ml 515 ml IV Total 100 ml 515 ml # Voids 3 2 1 1 # Bowel Movements 1 Result Diagram: 10/10/17 1001 10/10/17 1001 Imaging Last Impressions Lumbar Puncture Fluoroscopy 10/08/17 0000 Signed Impressions: CONCLUSION: 1. Uncomplicated fluoroscopically guided lumbar puncture with pressures as abo ve. Neck CTA 10/05/17 1238 Signed Impressions: CONCLUSION: 1. Negative CTA carotids. Head CTA 10/05/17 1238 Signed Impressions: CONCLUSION: 1. Unremarkable CTA brain. Head Magnetic Resonance Angiography 10/05/17 0000 Signed Impressions: CONCLUSION: 1. Unremarkable MRA brain. Head CT 10/05/17 0000 Signed Impressions: CONCLUSION: 1. Negative CT Head non contrast. Chest X-Ray 10/05/17 0000 Signed Impressions: CONCLUSION: No active disease. Brain MRI 10/05/17 0000 Signed Impressions: CONCLUSION: 1. Unremarkable MRI brain for age. Objective Remarks GENERAL: NAD SKIN: Warm and dry. HEAD: Normocephalic. EYES: No scleral icterus. No injection or drainage. NECK: Supple, trachea midline. No JVD or lymphadenopathy. CARDIOVASCULAR: Regular rate and rhythm without murmurs, gallops, or rubs. RESPIRATORY: Breath sounds equal bilaterally. No accessory muscle use. GASTROINTESTINAL: Abdomen soft, non-tender, nondistended. MUSCULOSKELETAL: No cyanosis, or edema. BACK: Nontender without obvious deformity. No CVA tenderness. A/P Problem List: (1) Sepsis ICD Code: A41.9 - Sepsis, unspecified organism (2) Meningitis ICD Code: G03.9 - Meningitis, unspecified (3) Pseudotumor cerebri ICD Code: G93.2 - Benign intracranial hypertension (4) Leukocytosis ICD Code: D72.829 - Elevated white blood cell count, unspecified (5) Headache ICD Code: R51 - Headache Status: Acute (6) Hypokalemia ICD Code: E87.6 - Hypokalemia Assessment and Plan 32-year-old female with Sepsis: Secondary to meningitis Now resolved Meningitis Currently on IV Rocephin 2 g every 12 hours and vancomycin, continue to monitor culture report including CSF and blood culture Appreciate input from infectious disease specialist Pseudotumor cerebri Status post lumboperitoneal shunt with subsequent revision CSF opening pressure within normal limits Appreciate input from neurology, neurosurgery Chronic headaches In this setting, likely secondary to meningitis Continue treatment as an above Continue Topamax Narcotics for pain DVT prophylaxis: Heparin Problem Qualifiers (1) Sepsis: Qualified Codes: A41.9 - Sepsis, unspecified organism (2) Leukocytosis: Qualified Codes: D72.829 - Elevated white blood cell count, unspecified (3) Headache: Nemesio Darden MD Oct 11, 2017 09:09
[2017-10-11 12:36] VITALS: BP 120/58; PULSE 48; RESP 18; TEMP 99.5; O2SAT 96
[2017-10-11 12:44] LABS: CSF CRYPTOCOCCUS AG CONF ND (NOT DETECTD)
[2017-10-11 13:50] LABS: AUTOMATED NEUTROPHIL # 5.9 TH/MM3 (1.8-7.7); BASOPHIL # 0.1 TH/MM3 (0-0.2); BASOPHIL % 0.8 % (0.0-2.0); EOSINOPHIL # 0.3 TH/MM3 (0-0.4); EOSINOPHIL % 2.7 % (0.0-4.0); HEMATOCRIT 33.3 % (35.0-46.0); HEMOGLOBIN 10.8 GM/DL (11.6-15.3); LYMPH % 28.5 % (9.0-44.0); LYMPHOCYTE # 2.7 TH/MM3 (1.0-4.8); MEAN CELL VOLUME 80.7 FL (80.0-100.0); MEAN CORPUSCULAR HEMOGLOBIN 26.1 PG (27.0-34.0); MEAN CORPUSCULAR HGB CONC 32.3 % (32.0-36.0); MEAN PLATELET VOLUME 7.7 FL (7.0-11.0); MONO % 5.2 % (0.0-8.0); MONOCYTE # 0.5 TH/MM3 (0-0.9); NEUT % 62.8 % (16.0-70.0); PLATELET COUNT 438 TH/MM3 (150-450); RED BLOOD COUNT 4.13 MIL/MM3 (4.00-5.30); RED CELL DISTRIBUTION WIDTH 13.8 % (11.6-17.2); WHITE BLOOD COUNT 9.4 TH/MM3 (4.0-11.0)
[2017-10-11 14:14] LABS: ALBUMIN 2.4 GM/DL (3.4-5.0); ALT (GPT) 34 U/L (10-53); AST (GOT) 22 U/L (15-37); BLOOD UREA NITROGEN 10 MG/DL (7-18); CALCIUM 8.4 MG/DL (8.5-10.1); CHLORIDE 110 MEQ/L (98-107); CREATININE 0.52 MG/DL (0.50-1.00); GLOMERULAR FILTRATION RATE 137 ML/MIN (>89); GLUCOSE,RANDOM 103 MG/DL (74-106); SODIUM (NA) 144 MEQ/L (136-145)
[2017-10-11 14:16] LABS: ALKALINE PHOSPHATASE 81 U/L (45-117); TOTAL BILIRUBIN ADULT LESS THAN 0.1 MG/DL (0.2-1.0); TOTAL PROTEIN 6.6 GM/DL (6.4-8.2)
[2017-10-11 19:53] LABS: HAEMOPHILUS FLU AG TYPE B Not Detected (Not Detected)
[2017-10-11 20:00] VITALS: BP 137/91; PULSE 65; RESP 18; TEMP 98.1; O2SAT 98
[2017-10-12] VITALS: BP 112/60; PULSE 45; RESP 18; TEMP 97.5; O2SAT 98
[2017-10-12] MEDS: MORPHINE SULFATE 4 MG/ML INJ IV PUSH PRN ×6 (00:37→23:18)
[2017-10-12 04:00] VITALS: BP 102/56; PULSE 47; RESP 18; TEMP 98.6; O2SAT 92
[2017-10-12] MEDS: VANCOMYCIN INJ 1,500 MG in SODIUM CHLORID 0.9% 500 ML INJ 500 ML IV SCH ×2 (04:07→15:05)
[2017-10-12] MEDS: ACETAMINOPHEN/HYDROcodone 325 MG/10 MG TAB PO PRN ×5 (04:07→22:05)
[2017-10-12] MEDS: cefTRIAXone INJ 2,000 MG in SODIUM CHLORIDE 0.9% INJ 100 ML IV SCH ×2 (06:35→17:31)
[2017-10-12 08:00] VITALS: BP 118/58; PULSE 57; RESP 18; TEMP 97.7; O2SAT 95
[2017-10-12 08:43] LABS: CREATININE 0.53 MG/DL (0.50-1.00)
[2017-10-12] MEDS: SODIUM CHLORIDE 0.9% FLUSH 10 ML FLUSH IV FLUSH SCH ×2 (08:58→21:00)
[2017-10-12] MEDS: DOCUSATE SODIUM 50 MG/SENNA 8.6 MG TAB PO SCH ×2 (08:58→22:05)
[2017-10-12] MEDS: TOPIRAMATE 100 MG TAB PO SCH ×2 (08:58→22:05)
--- NOTE | 2017-10-12 11:02 | HHI.PR ---
Subjective Remarks Follow-up sepsis/meningitis/pseudotumor cerebri October 11, 2017-patient seen and examined, complains of headache and neck pain along with some visual disturbances. Currently afebrile. Reports some nausea without any emesis October 12, 2017-patient seen and examined, complains of abdominal pain and states she may have some gas. Still with some headaches Objective Vitals Vital Signs Date Time Temp Pulse Resp B/P (MAP) Pulse Ox O2 Delivery O2 Flow Rate FiO2 10/12/17 08:00 97.7 57 18 118/58 (78) 95 10/12/17 04:00 98.6 47 18 102/56 (71) 92 10/12/17 00:00 97.5 45 18 112/60 (77) 98 10/11/17 20:00 98.1 65 18 137/91 (106) 98 10/11/17 12:36 99.5 48 18 120/58 (78) 96 I/O 10/11/17 10/11/17 10/11/17 10/12/17 10/12/17 10/12/17 07:00 15:00 23:00 07:00 15:00 23:00 # Voids 1 4 # Bowel Movements 1 Result Diagram: 10/11/17 1313 10/12/17 0732 Imaging Last Impressions Lumbar Puncture Fluoroscopy 10/08/17 0000 Signed Impressions: CONCLUSION: 1. Uncomplicated fluoroscopically guided lumbar puncture with pressures as abo ve. Neck CTA 10/05/17 1238 Signed Impressions: CONCLUSION: 1. Negative CTA carotids. Head CTA 10/05/17 1238 Signed Impressions: CONCLUSION: 1. Unremarkable CTA brain. Head Magnetic Resonance Angiography 10/05/17 0000 Signed Impressions: CONCLUSION: 1. Unremarkable MRA brain. Head CT 10/05/17 0000 Signed Impressions: CONCLUSION: 1. Negative CT Head non contrast. Chest X-Ray 10/05/17 0000 Signed Impressions: CONCLUSION: No active disease. Brain MRI 10/05/17 0000 Signed Impressions: CONCLUSION: 1. Unremarkable MRI brain for age. Objective Remarks GENERAL: NAD SKIN: Warm and dry. HEAD: Normocephalic. EYES: No scleral icterus. No injection or drainage. NECK: Supple, trachea midline. No JVD or lymphadenopathy. CARDIOVASCULAR: Regular rate and rhythm without murmurs, gallops, or rubs. RESPIRATORY: Breath sounds equal bilaterally. No accessory muscle use. GASTROINTESTINAL: Abdomen soft, non-tender, nondistended. MUSCULOSKELETAL: No cyanosis, or edema. BACK: Nontender without obvious deformity. No CVA tenderness. A/P Problem List: (1) Sepsis ICD Code: A41.9 - Sepsis, unspecified organism (2) Meningitis ICD Code: G03.9 - Meningitis, unspecified (3) Pseudotumor cerebri ICD Code: G93.2 - Benign intracranial hypertension (4) Leukocytosis ICD Code: D72.829 - Elevated white blood cell count, unspecified (5) Headache ICD Code: R51 - Headache Status: Acute (6) Hypokalemia ICD Code: E87.6 - Hypokalemia Assessment and Plan 32-year-old female with Sepsis: Secondary to meningitis Now resolved Meningitis Currently on IV Rocephin 2 g every 12 hours and vancomycin, continue to monitor culture report including CSF and blood culture Appreciate input from infectious disease specialist Pseudotumor cerebri Status post lumboperitoneal shunt with subsequent revision CSF opening pressure within normal limits Appreciate input from neurology, neurosurgery Chronic headaches In this setting, likely secondary to meningitis Continue treatment as an above Continue Topamax Narcotics for pain Abdominal gas retention Start Gax X PRN DVT prophylaxis: Heparin Problem Qualifiers (1) Sepsis: Qualified Codes: A41.9 - Sepsis, unspecified organism (2) Leukocytosis: Qualified Codes: D72.829 - Elevated white blood cell count, unspecified (3) Headache: Nemesio Darden MD Oct 12, 2017 11:02
[2017-10-12 12:00] VITALS: BP 148/73; PULSE 60; RESP 18; TEMP 98.8; O2SAT 95
[2017-10-12] MEDS: SIMETHICONE 125 MG CHEWABLE TAB PO PRN (13:15)
[2017-10-12] MEDS: fentaNYL 25 MCG/HR PATCH T-DERMAL SCH (15:08)
[2017-10-12] MEDS: REMOVE OLD DURAGESIC (FENTANYL) PATCH T-DERMAL SCH (15:08)
[2017-10-12 16:00] VITALS: BP 123/62; PULSE 76; RESP 18; TEMP 98; O2SAT 97
[2017-10-12] MEDS: SODIUM CHLOR 0.9% 1000 ML INJ 1,000 ML IV SCH ×2 (17:12→23:20)
[2017-10-12 20:28] LABS: TROPONIN I LESS THAN 0.02 NG/ML (0.02-0.05)
[2017-10-12 22:00] VITALS: BP 129/77; PULSE 88; RESP 16; TEMP 98; O2SAT 98
[2017-10-13] VITALS: BP 125/69; PULSE 80; RESP 17; TEMP 98.8; O2SAT 98
[2017-10-13] MEDS: VANCOMYCIN INJ 1,500 MG in SODIUM CHLORID 0.9% 500 ML INJ 500 ML IV SCH ×2 (02:41→15:21)
[2017-10-13] MEDS: ACETAMINOPHEN/HYDROcodone 325 MG/10 MG TAB PO PRN ×5 (02:41→21:28)
[2017-10-13 03:45] VITALS: BP 129/80; PULSE 63; RESP 16; TEMP 98; O2SAT 98
[2017-10-13] MEDS: SIMETHICONE 125 MG CHEWABLE TAB PO PRN (04:02)
[2017-10-13] MEDS: MORPHINE SULFATE 4 MG/ML INJ IV PUSH PRN ×5 (04:02→23:28)
[2017-10-13] MEDS: cefTRIAXone INJ 2,000 MG in SODIUM CHLORIDE 0.9% INJ 100 ML IV SCH ×2 (06:35→17:44)
[2017-10-13 08:00] VITALS: BP 112/56; PULSE 65; RESP 20; TEMP 98; O2SAT 95
[2017-10-13] MEDS: TOPIRAMATE 100 MG TAB PO SCH ×2 (08:49→21:29)
[2017-10-13] MEDS: DOCUSATE SODIUM 50 MG/SENNA 8.6 MG TAB PO SCH ×2 (08:49→21:28)
[2017-10-13] MEDS: SODIUM CHLORIDE 0.9% FLUSH 10 ML FLUSH IV FLUSH SCH ×2 (08:49→21:27)
--- NOTE | 2017-10-13 09:18 | HHI.PR ---
Subjective Remarks Follow-up sepsis/meningitis/pseudotumor cerebri October 11, 2017-patient seen and examined, complains of headache and neck pain along with some visual disturbances. Currently afebrile. Reports some nausea without any emesis October 12, 2017-patient seen and examined, complains of abdominal pain and states she may have some gas. Still with some headaches October 13, 2017-patient seen and examined, complains of neck pain and headaches. Denies any chest pain Objective Vitals Vital Signs Date Time Temp Pulse Resp B/P (MAP) Pulse Ox O2 Delivery O2 Flow Rate FiO2 10/13/17 08:00 98.0 65 20 112/56 (74) 95 10/13/17 03:45 98.0 63 16 129/80 (96) 98 10/13/17 00:00 98.8 80 17 125/69 (87) 98 10/12/17 22:00 98.0 88 16 129/77 (94) 98 10/12/17 16:00 98.0 76 18 123/62 (82) 97 10/12/17 12:00 98.8 60 18 148/73 (98) 95 I/O 10/12/17 10/12/17 10/12/17 10/13/17 10/13/17 10/13/17 07:00 15:00 23:00 07:00 15:00 23:00 Intake Total 1200 ml 800 ml Output Total 850 ml Balance 1200 ml -50 ml Intake Oral 1200 ml 800 ml Output Urine Total 850 ml # Voids 4 2 2 # Bowel Movements 1 0 0 Result Diagram: 10/11/17 1313 10/12/17 0732 Objective Remarks GENERAL: NAD SKIN: Warm and dry. HEAD: Normocephalic. EYES: No scleral icterus. No injection or drainage. NECK: Supple, trachea midline. No JVD or lymphadenopathy. CARDIOVASCULAR: Regular rate and rhythm without murmurs, gallops, or rubs. RESPIRATORY: Breath sounds equal bilaterally. No accessory muscle use. GASTROINTESTINAL: Abdomen soft, non-tender, nondistended. MUSCULOSKELETAL: No cyanosis, or edema. BACK: Nontender without obvious deformity. No CVA tenderness. A/P Problem List: (1) Sepsis ICD Code: A41.9 - Sepsis, unspecified organism (2) Meningitis ICD Code: G03.9 - Meningitis, unspecified (3) Pseudotumor cerebri ICD Code: G93.2 - Benign intracranial hypertension (4) Leukocytosis ICD Code: D72.829 - Elevated white blood cell count, unspecified (5) Headache ICD Code: R51 - Headache Status: Acute (6) Hypokalemia ICD Code: E87.6 - Hypokalemia Assessment and Plan 32-year-old female with Sepsis: Secondary to meningitis Now resolved Meningitis Continue IV Rocephin 2 g every 12 hours and vancomycin, continue to monitor culture report including CSF and blood culture. Thus far negative to date Appreciate input from infectious disease specialist Pseudotumor cerebri Status post lumboperitoneal shunt with subsequent revision CSF opening pressure within normal limits Appreciate input from neurology, neurosurgery Chronic headaches In this setting, likely secondary to meningitis Continue treatment as an above Continue Topamax Narcotics for pain Abdominal gas retention Improved with Gax X PRN DVT prophylaxis: Heparin Problem Qualifiers (1) Sepsis: Qualified Codes: A41.9 - Sepsis, unspecified organism (2) Leukocytosis: Qualified Codes: D72.829 - Elevated white blood cell count, unspecified (3) Headache: Nemesio Darden MD Oct 13, 2017 09:18
[2017-10-13 12:00] VITALS: BP 108/74; PULSE 75; RESP 20; TEMP 98.3; O2SAT 95
--- NOTE | 2017-10-13 14:31 | HHI.PR ---
Review/Management Diagnosis CSF shows leukocytosis c/w meningitis. Probable asceptic meningitis. CSF culture negative. Opening Pressure is normal (16 cm H2O) consistent with normal shunt functioning. Her headache is most likely related to meningitis. Plan continue pain management for DELCID Diagnosis/Plan: Subjective Subjective Comments No acute events reported headache improving. Left sided strength improving Active Medications Current Medications Medications (Trade) Dose Ordered Sig/Jd Route Start Time Stop Time Status Last Admin (NS Flush) 2 ml BID IV FLUSH 10/05/17 21:00 10/13/17 08:49 (NS Flush) 2 ml UNSCH PRN IV FLUSH 10/05/17 13:45 10/11/17 19:46 Sodium Chloride 1,000 ml @ 70 mls/hr [id number] IV 10/05/17 13:36 10/12/17 23:20 (Tylenol) 650 mg Q4H PRN PO 10/05/17 16:00 (Narcan Inj) 0.4 mg UNSCH PRN IV PUSH 10/05/17 16:00 (Yojana-Colace) 1 tab BID PO 10/05/17 21:00 10/13/17 08:49 (Milk Of Magnesia Liq) 30 ml Q12H PRN PO 10/05/17 16:00 (Senokot) 17.2 mg Q12H PRN PO 10/05/17 16:00 (Dulcolax Supp) 10 mg DAILY PRN RECTAL 10/05/17 16:00 (Lactulose Liq) 30 ml DAILY PRN PO 10/05/17 16:00 (Sarepta 5-325 Mg) 1 tab Q4H PRN PO 10/05/17 16:00 10/06/17 00:48 (Sarepta 10-325 Mg) 1 tab Q4H PRN PO 10/05/17 16:00 10/13/17 12:55 (Narcan Inj) 0.4 mg UNSCH PRN IV PUSH 10/05/17 16:00 (Topamax) 100 mg BID PO 10/05/17 21:00 10/13/17 08:49 Pharmacy Profile Note 0 ml @ 0 mls/hr UNSCH OTHER 10/06/17 00:30 Vancomycin HCl 1500 mg/Sodium Chloride 515 ml @ 257.5 mls/ hr Q12H IV 10/06/17 15:00 10/13/17 02:41 (Zofran Odt) 4 mg Q4H PRN PO 10/08/17 09:30 10/10/17 20:43 (Duragesic 25 Mcg Patch.72 Hr) 1 patch Q3D T-DERMAL 10/09/17 16:00 10/12/17 15:08 Miscellaneous Information 1 Q3D T-DERMAL 10/12/17 16:00 10/12/17 15:08 (Morphine Inj) 4 mg Q4H PRN IV PUSH 10/10/17 10:00 10/13/17 14:28 Ceftriaxone Sodium 2000 mg/ Sodium Chloride 100 ml @ 200 mls/hr Q12H IV 10/10/17 17:00 10/13/17 06:35 (Phazyme Chew) 125 mg Q8H PRN PO 10/12/17 11:00 10/13/17 04:02 ([facility] Ordered Lab Info) SPECIFIC LAB TO BE DRAWN:VANCO TROUGH DATE TO... ONCE ONCE .XX 10/15/17 14:45 10/15/17 14:46 Allergies Allergies Coded Allergies Sulfa (Sulfonamide Antibiotics) (Verified Allergy, Severe, RASH, 10/05/17) amoxicillin (Verified Allergy, Severe, Anaphylaxis, 10/05/17) ketorolac (Verified Allergy, Severe, Anaphylaxis, 10/05/17) ibuprofen (Verified Allergy, Intermediate, HIVES, FACIAL SWELLING., 10/05/17) tramadol (Verified Allergy, Intermediate, HIVES, 10/05/17) latex (Verified Allergy, Unknown, 10/05/17) penicillin G (Verified Allergy, Unknown, HIVES, 10/05/17) prochlorperazine (Verified Allergy, Unknown, HIVES, 10/05/17) sumatriptan (Verified Adverse Reaction, Severe, VOMITING PASSED OUT, 10/05/17) Review of Systems All other ROS: ROS reviewed as documented in chart Exam I&O / VS Vital Signs Date Time Temp Pulse Resp B/P (MAP) Pulse Ox O2 Delivery O2 Flow Rate FiO2 10/13/17 12:00 98.3 75 20 108/74 (85) 95 10/13/17 08:00 98.0 65 20 112/56 (74) 95 10/13/17 03:45 98.0 63 16 129/80 (96) 98 10/13/17 00:00 98.8 80 17 125/69 (87) 98 10/12/17 22:00 98.0 88 16 129/77 (94) 98 10/12/17 16:00 98.0 76 18 123/62 (82) 97 General: Alert and Oriented, No acute distress Eye: EOMI Respiratory: Lungs CTA, Non-labored respirations, BS equal Cardiology: Normal rate, No edema, Regular Rhythm Musculoskeletal: ROM (Within functional limits) Neurologic: Alert, Oriented, Normal sensory, Normal motor, No focal defects Psychiatric: Cooperative, Appropriate mood & affect, Normal judgement Exam Comments alert, speech normal CN intact MOTOR 5/5 LUE, 5/5 RUE Objective Micro and Labs Laboratory Tests Test 10/12/17 19:47 Total Creatine Kinase 40 Troponin I LESS THAN 0.02 Date/Time Source Procedure Growth Status 10/06/17 14:22 Blood Peripheral Aerobic Blood Culture - Final NO GROWTH IN 5 DAYS Complete 10/06/17 14:22 Blood Peripheral Anaerobic Blood Culture - Final NO GROWTH IN 5 DAYS Complete 10/08/17 12:15 Cerebral Spinal Fluid Lumbar Puncture Acid Fast Stain - Final NO ACID FAST BACILLI SEEN Resulted 10/08/17 12:15 Cerebral Spinal Fluid Lumbar Puncture Mycobacterial Culture Pending Resulted Antonio Haddad MD PhD Oct 13, 2017 14:31
--- NOTE | 2017-10-13 15:04 | HHI.NSPN ---
(Chandrakant Yeung) History Chief Complaint: Left shoulder area "mush" (Chandrakant Yeung) Interval History 10/08: 32-year-old female with history of pseudotumor cerebri. Status post lumboperitoneal shunt placement with subsequent revision August 2017. She had a protracted postoperative course as an inpatient with multiple complaints including intermittent headaches, abdominal discomfort, nausea. She presented back to the emergency room with some strokelike symptoms, although the patient states that she just felt dizzy with an increased headache. Today she states that she has a headache near the cervical occipital region. No significant nausea today. She complains of intermittent diffuse abdominal discomfort. No diarrhea. She has been noted to have positive fever upon admission, was started on IV antibiotics with infectious disease consultation. Patient was tentatively scheduled for lumbar puncture, which she declined over the past day or 2. 10/09: This afternoon when seen the patient is awake and alert in the bed. She says she does have some surgical site pain. She also says that she has meningitis although she is not on any special precautions. She did have WBCs and an elevated protein in her CSF specimen sent to the lab but no organisms were seen on Gram stain. So far there has been no growth in the CSF for 24 hours. Upon examination she is mildly tender to the left anterolateral surgical site. There are no evident sensorimotor deficits to the lower extremities. 10/10: When seen the patient is awake in bed on her left side. She quickly shows me a photo of the therapy dog in bed with her earlier. She states that she has a headache and pain to the back and the abdomen. She also reports numbness to the upper extremities. Prior to being seen Physical Therapy informed this practitioner that the patient was able to get up from bed on her own and ambulate 800 feet with standby guard, then get back in bed. The patient was tender to palpation of the complete midline spine and the mid right abdominal wall. Her muscle strength was essentially normal to all extremities and she was slightly reluctant to participate in motor testing. 10/13: The patient is awake and alert laying on her right side when seen. She states that she is having some pain to the left shoulder and that the area is "mush." She wondered if it could be inflammation related to an IV catheter but she has no evident phlebitis, cellulitis or streaking to the left upper extremity. She is tender to the left lateral back, otherwise her exam is the same. All of her cultures are without growth on the final review. (Chandrakant Yeung) Exam Results 10/11/17 10/11/17 10/12/17 10/12/17 10/13/17 10/13/17 06:00 18:00 06:00 18:00 06:00 18:00 Intake Total 515 ml 2000 ml Output Total 850 ml Balance 515 ml 1150 ml Intake Oral 2000 ml IV Total 515 ml Output Urine Total 850 ml # Voids 2 4 4 # Bowel Movements 1 0 Vital Signs Date Time Temp Pulse Resp B/P (MAP) Pulse Ox O2 Delivery O2 Flow Rate FiO2 10/13/17 12:00 98.3 75 20 108/74 (85) 95 10/13/17 08:00 98.0 65 20 112/56 (74) 95 10/13/17 03:45 98.0 63 16 129/80 (96) 98 10/13/17 00:00 98.8 80 17 125/69 (87) 98 10/12/17 22:00 98.0 88 16 129/77 (94) 98 10/12/17 16:00 98.0 76 18 123/62 (82) 97 10/12/17 12:00 98.8 60 18 148/73 (98) 95 10/12/17 08:00 97.7 57 18 118/58 (78) 95 10/12/17 04:00 98.6 47 18 102/56 (71) 92 10/12/17 00:00 97.5 45 18 112/60 (77) 98 10/11/17 20:00 98.1 65 18 137/91 (106) 98 10/11/17 12:36 99.5 48 18 120/58 (78) 96 10/11/17 08:00 97.7 45 16 125/70 (88) 94 10/11/17 04:00 97.6 50 18 109/71 (84) 95 10/11/17 00:00 98.0 57 18 106/59 (75) 96 10/10/17 20:00 98.6 55 18 131/72 (91) 99 10/10/17 16:00 98.2 82 18 118/67 (84) 97 (Chandrakant Yeung) Physical Examination GENERAL: Awake & alert in bed. Affect flat. Readily interacts. No apparent distress. SKIN: Abdominal wall surgical sites w/o any signs of infection or drainage. Back w/o any signs of infection, incision looks good. HEENT: Normocephalic, atraumatic. GASTROINTESTINAL: Intact steri-strips to multiple abdominal surgical stab wounds , abdomen NTTP. . MUSCULOSKELETAL: HOUSE spontaneously & purposefully w/o difficulty. Thoracolumbar spine NTTP but is TTP of the left lateral low back. NEUROLOGICAL: AAOx3. Speech clear & appropriate. Follows simple commands w/o difficulty. Sensation intact to light touch to all extremities. Motor strength is essentially normal to all extremities. (Chandrakant Yeung) Lab, Micro, Other Results Laboratory Tests Test 10/11/17 13:13 10/12/17 07:32 10/12/17 19:47 White Blood Count 9.4 TH/MM3 Red Blood Count 4.13 MIL/MM3 Hemoglobin 10.8 GM/DL Hematocrit 33.3 % Mean Corpuscular Volume 80.7 FL Mean Corpuscular Hemoglobin 26.1 PG Mean Corpuscular Hemoglobin Concent 32.3 % Red Cell Distribution Width 13.8 % Platelet Count 438 TH/MM3 Mean Platelet Volume 7.7 FL Neutrophils (%) (Auto) 62.8 % Lymphocytes (%) (Auto) 28.5 % Monocytes (%) (Auto) 5.2 % Eosinophils (%) (Auto) 2.7 % Basophils (%) (Auto) 0.8 % Neutrophils # (Auto) 5.9 TH/MM3 Lymphocytes # (Auto) 2.7 TH/MM3 Monocytes # (Auto) 0.5 TH/MM3 Eosinophils # (Auto) 0.3 TH/MM3 Basophils # (Auto) 0.1 TH/MM3 CBC Comment DIFF FINAL Differential Comment Blood Urea Nitrogen 10 MG/DL Creatinine 0.52 MG/DL 0.53 MG/DL Random Glucose 103 MG/DL Total Protein 6.6 GM/DL Albumin 2.4 GM/DL Calcium Level 8.4 MG/DL Alkaline Phosphatase 81 U/L Aspartate Amino Transf (AST/SGOT) 22 U/L Alanine Aminotransferase (ALT/SGPT) 34 U/L Total Bilirubin LESS THAN 0.1 MG/DL Sodium Level 144 MEQ/L Potassium Level 3.8 MEQ/L Chloride Level 110 MEQ/L Carbon Dioxide Level 25.0 MEQ/L Anion Gap 9 MEQ/L Estimat Glomerular Filtration Rate 137 ML/MIN 134 ML/MIN Total Creatine Kinase 40 U/L Troponin I LESS THAN 0.02 NG/ML (Chandrakant Yeung) Medical Decision Making Impression and Plan Impression: 1. Status post lumboperitoneal shunt with subsequent revision. Patient now presents with fever, increased WBC. 2. Chronic headaches. Etiology undetermined. She has a history of previous migraine headaches. Her headaches have fluctuated significantly on a daily basis over the past month. The patient is doing fairly well today. She is reporting left shoulder pain and was told to inform the Attending. Also w/left lateral lower back pain. Past 24 hrs: Afebrile. No labs for today. CSF cultures () w/no growth x72 hrs, final . Blood cultures x2 () w/no growth x5 days, . CT/CTA brain unremarkable. MRI/MRA brain unremarkable. CTA neck unremarkable. Plan: Primary management per Hospitalist. Antibiotics per Infectious Disease. Mobilise patient w/assistance as needed. (Chandrakant Yeung) Attending Statement The exam, history, and the medical decision-making described in the above note were completed with the assistance of the mid-level provider. I reviewed and agree with the findings presented. I attest that I had a [id number] encounter with the patient on the same day, and personally performed and documented my assessment and findings in the medical record. Findings discussed with patient. Cultures noted Continue antibiotics per ID Encouraged out of bed (Mamadou Cerrato MD) Chandrakant Yeung Oct 13, 2017 15:04 Mamadou Cerrato MD Oct 15, 2017 20:09
[2017-10-13 16:34] VITALS: BP 125/73; PULSE 79; RESP 20; TEMP 98.4; O2SAT 96
[2017-10-13 20:00] VITALS: BP 121/80; PULSE 85; RESP 18; TEMP 98.7; O2SAT 97
[2017-10-13] MEDS: SODIUM CHLOR 0.9% 1000 ML INJ 1,000 ML IV SCH (21:29)
--- NOTE | 2017-10-13 23:10 | EKG ---
Date Performed: 10/12/2017 Time Performed: 16:50:39 PTAGE: 32 years EKG: Sinus rhythm WITH SINUS ARRHYTHMIA NORMAL ECG PREVIOUS TRACING : 10/05/2017 12.59 DOCTOR: Karey Rachel Interpretating Date/Time 10/13/2017 22:59:59
[2017-10-14 00:02] VITALS: BP 119/71; PULSE 73; RESP 18; TEMP 98.7; O2SAT 96
[2017-10-14] MEDS: ACETAMINOPHEN/HYDROcodone 325 MG/10 MG TAB PO PRN ×3 (01:44→10:59)
[2017-10-14] MEDS: VANCOMYCIN INJ 1,500 MG in SODIUM CHLORID 0.9% 500 ML INJ 500 ML IV SCH ×2 (01:46→15:44)
[2017-10-14] MEDS: MORPHINE SULFATE 4 MG/ML INJ IV PUSH PRN ×5 (03:53→22:32)
[2017-10-14] MEDS: cefTRIAXone INJ 2,000 MG in SODIUM CHLORIDE 0.9% INJ 100 ML IV SCH ×2 (03:56→17:17)
[2017-10-14 04:00] VITALS: BP 130/77; PULSE 80; RESP 18; TEMP 98.5; O2SAT 99
[2017-10-14] MEDS: SODIUM CHLORIDE 0.9% FLUSH 10 ML FLUSH IV FLUSH SCH ×2 (07:58→22:32)
[2017-10-14] MEDS: DOCUSATE SODIUM 50 MG/SENNA 8.6 MG TAB PO SCH ×2 (07:58→22:31)
[2017-10-14] MEDS: TOPIRAMATE 100 MG TAB PO SCH ×2 (07:58→22:31)
[2017-10-14 08:00] VITALS: BP 114/72; PULSE 73; RESP 16; TEMP 99.2; O2SAT 98
[2017-10-14 10:36] LABS: LYME IGG IMMUNOBLOT CSF NO BANDS DETECTED; LYME IGM IMMUNOBLOT CSF NO BANDS DETECTED
[2017-10-14 10:41] LABS: CREATININE 0.57 MG/DL (0.50-1.00)
[2017-10-14] MEDS: SODIUM CHLOR 0.9% 1000 ML INJ 1,000 ML IV SCH (10:59)
--- NOTE | 2017-10-14 11:21 | HHI.PR ---
Subjective Remarks Follow-up sepsis/meningitis/pseudotumor cerebri October 11, 2017-patient seen and examined, complains of headache and neck pain along with some visual disturbances. Currently afebrile. Reports some nausea without any emesis October 12, 2017-patient seen and examined, complains of abdominal pain and states she may have some gas. Still with some headaches October 13, 2017-patient seen and examined, complains of neck pain and headaches. Denies any chest pain October 14, 2017-patient seen and examined, reports some improvement of headaches as well as neck pain Objective Vitals Vital Signs Date Time Temp Pulse Resp B/P (MAP) Pulse Ox O2 Delivery O2 Flow Rate FiO2 10/14/17 08:00 99.2 73 16 114/72 (86) 98 10/14/17 04:00 98.5 80 18 130/77 (94) 99 10/14/17 00:02 98.7 73 18 119/71 (87) 96 10/13/17 20:00 98.7 85 18 121/80 (94) 97 10/13/17 16:34 98.4 79 20 125/73 (90) 96 10/13/17 12:00 98.3 75 20 108/74 (85) 95 I/O 10/13/17 10/13/17 10/13/17 10/14/17 10/14/17 10/14/17 07:00 15:00 23:00 07:00 15:00 23:00 Intake Total 800 ml 2095 ml 600 ml Output Total 850 ml Balance -50 ml 2095 ml 600 ml Intake Oral 800 ml 480 ml IV Total 1615 ml 600 ml Output Urine Total 850 ml # Voids 2 1 2 # Bowel Movements 0 Result Diagram: 10/11/17 1313 10/14/17 0905 Objective Remarks GENERAL: NAD SKIN: Warm and dry. HEAD: Normocephalic. EYES: No scleral icterus. No injection or drainage. NECK: Supple, trachea midline. No JVD or lymphadenopathy. CARDIOVASCULAR: Regular rate and rhythm without murmurs, gallops, or rubs. RESPIRATORY: Breath sounds equal bilaterally. No accessory muscle use. GASTROINTESTINAL: Abdomen soft, non-tender, nondistended. MUSCULOSKELETAL: No cyanosis, or edema. BACK: Nontender without obvious deformity. No CVA tenderness. A/P Problem List: (1) Sepsis ICD Code: A41.9 - Sepsis, unspecified organism (2) Meningitis ICD Code: G03.9 - Meningitis, unspecified (3) Pseudotumor cerebri ICD Code: G93.2 - Benign intracranial hypertension (4) Leukocytosis ICD Code: D72.829 - Elevated white blood cell count, unspecified (5) Headache ICD Code: R51 - Headache Status: Acute (6) Hypokalemia ICD Code: E87.6 - Hypokalemia Assessment and Plan 32-year-old female with Sepsis: Secondary to meningitis Now resolved Meningitis Continue IV Rocephin 2 g every 12 hours and vancomycin, continue to monitor culture report including CSF and blood culture. Negative to date Appreciate input from infectious disease specialist Pseudotumor cerebri Status post lumboperitoneal shunt with subsequent revision CSF opening pressure within normal limits Appreciate input from neurology, neurosurgery Chronic headaches In this setting, likely secondary to meningitis Continue treatment as an above Continue Topamax Narcotics for pain Abdominal gas retention Resolved with Gax X PRN DVT prophylaxis: Heparin Problem Qualifiers (1) Sepsis: Qualified Codes: A41.9 - Sepsis, unspecified organism (2) Leukocytosis: Qualified Codes: D72.829 - Elevated white blood cell count, unspecified (3) Headache: Nemesio Darden MD Oct 14, 2017 11:21
[2017-10-14 12:00] VITALS: BP 134/78; PULSE 84; RESP 17; TEMP 99.5; O2SAT 95
[2017-10-14 16:00] VITALS: BP 118/76; PULSE 86; RESP 17; TEMP 99.8; O2SAT 94
--- NOTE | 2017-10-14 16:08 | HHI.NSPN ---
History Chief Complaint: Left shoulder area "mush" Interval History 10/08: 32-year-old female with history of pseudotumor cerebri. Status post lumboperitoneal shunt placement with subsequent revision August 2017. She had a protracted postoperative course as an inpatient with multiple complaints including intermittent headaches, abdominal discomfort, nausea. She presented back to the emergency room with some strokelike symptoms, although the patient states that she just felt dizzy with an increased headache. Today she states that she has a headache near the cervical occipital region. No significant nausea today. She complains of intermittent diffuse abdominal discomfort. No diarrhea. She has been noted to have positive fever upon admission, was started on IV antibiotics with infectious disease consultation. Patient was tentatively scheduled for lumbar puncture, which she declined over the past day or 2. 10/09: This afternoon when seen the patient is awake and alert in the bed. She says she does have some surgical site pain. She also says that she has meningitis although she is not on any special precautions. She did have WBCs and an elevated protein in her CSF specimen sent to the lab but no organisms were seen on Gram stain. So far there has been no growth in the CSF for 24 hours. Upon examination she is mildly tender to the left anterolateral surgical site. There are no evident sensorimotor deficits to the lower extremities. 10/10: When seen the patient is awake in bed on her left side. She quickly shows me a photo of the therapy dog in bed with her earlier. She states that she has a headache and pain to the back and the abdomen. She also reports numbness to the upper extremities. Prior to being seen Physical Therapy informed this practitioner that the patient was able to get up from bed on her own and ambulate 800 feet with standby guard, then get back in bed. The patient was tender to palpation of the complete midline spine and the mid right abdominal wall. Her muscle strength was essentially normal to all extremities and she was slightly reluctant to participate in motor testing. 10/13: The patient is awake and alert laying on her right side when seen. She states that she is having some pain to the left shoulder and that the area is "mush." She wondered if it could be inflammation related to an IV catheter but she has no evident phlebitis, cellulitis or streaking to the left upper extremity. She is tender to the left lateral back, otherwise her exam is the same. All of her cultures are without growth on the final review. Exam Results 10/12/17 10/12/17 10/13/17 10/13/17 10/14/17 10/14/17 06:00 18:00 06:00 18:00 06:00 18:00 Intake Total 2000 ml 480 ml 2215 ml Output Total 850 ml Balance 1150 ml 480 ml 2215 ml Intake Oral 2000 ml 480 ml IV Total 2215 ml Output Urine Total 850 ml # Voids 4 4 3 # Bowel Movements 1 0 Vital Signs Date Time Temp Pulse Resp B/P (MAP) Pulse Ox O2 Delivery O2 Flow Rate FiO2 10/14/17 12:00 99.5 84 17 134/78 (96) 95 10/14/17 08:00 99.2 73 16 114/72 (86) 98 10/14/17 04:00 98.5 80 18 130/77 (94) 99 10/14/17 00:02 98.7 73 18 119/71 (87) 96 10/13/17 20:00 98.7 85 18 121/80 (94) 97 10/13/17 16:34 98.4 79 20 125/73 (90) 96 10/13/17 12:00 98.3 75 20 108/74 (85) 95 10/13/17 08:00 98.0 65 20 112/56 (74) 95 10/13/17 03:45 98.0 63 16 129/80 (96) 98 10/13/17 00:00 98.8 80 17 125/69 (87) 98 10/12/17 22:00 98.0 88 16 129/77 (94) 98 10/12/17 16:00 98.0 76 18 123/62 (82) 97 10/12/17 12:00 98.8 60 18 148/73 (98) 95 10/12/17 08:00 97.7 57 18 118/58 (78) 95 10/12/17 04:00 98.6 47 18 102/56 (71) 92 10/12/17 00:00 97.5 45 18 112/60 (77) 98 10/11/17 20:00 98.1 65 18 137/91 (106 98 Physical Examination GENERAL: Awake & alert in bed. Affect flat. Readily interacts. No apparent distress. SKIN: Abdominal wall surgical sites w/o any signs of infection or drainage. Back w/o any signs of infection, incision looks good. HEENT: Normocephalic, atraumatic. GASTROINTESTINAL: Intact steri-strips to multiple abdominal surgical stab wounds , abdomen NTTP. . MUSCULOSKELETAL: HOUSE spontaneously & purposefully w/o difficulty. Thoracolumbar spine NTTP but is TTP of the left lateral low back. NEUROLOGICAL: AAOx3. Speech clear & appropriate. Follows simple commands w/o difficulty. Sensation intact to light touch to all extremities. Motor strength is essentially normal to all extremities. Lab, Micro, Other Results Laboratory Tests Test 10/12/17 07:32 10/12/17 19:47 10/14/17 09:05 Creatinine 0.53 MG/DL 0.57 MG/DL Estimat Glomerular Filtration Rate 134 ML/MIN 123 ML/MIN Total Creatine Kinase 40 U/L Troponin I LESS THAN 0.02 NG/ML Medical Decision Making Impression and Plan Impression: 1. Status post lumboperitoneal shunt with subsequent revision. Patient now presents with fever, increased WBC. 2. Chronic headaches. Etiology undetermined. She has a history of previous migraine headaches. Her headaches have fluctuated significantly on a daily basis over the past month. The patient is doing fairly well today. She is reporting left shoulder pain and was told to inform the Attending. Also w/left lateral lower back pain. Past 24 hrs: 99.5 T max. Reviewed labs for today. CSF cultures () w/no growth x72 hrs, final . Blood cultures x2 () w/no growth x5 days, . CT/CTA brain unremarkable. MRI/MRA brain unremarkable. CTA neck unremarkable. Plan: Primary management per Hospitalist. Antibiotics per Infectious Disease. Mobilise patient w/assistance as needed. Chandrkaant Yeung Oct 14, 2017 16:08
--- NOTE | 2017-10-14 16:24 | HHI.NSPN ---
(Colin Yeungsilvano BERGER) History Chief Complaint: Pain to low back surgical incision. (Colin Yeungsilvano BERGER) Interval History 10/08: 32-year-old female with history of pseudotumor cerebri. Status post lumboperitoneal shunt placement with subsequent revision August 2017. She had a protracted postoperative course as an inpatient with multiple complaints including intermittent headaches, abdominal discomfort, nausea. She presented back to the emergency room with some strokelike symptoms, although the patient states that she just felt dizzy with an increased headache. Today she states that she has a headache near the cervical occipital region. No significant nausea today. She complains of intermittent diffuse abdominal discomfort. No diarrhea. She has been noted to have positive fever upon admission, was started on IV antibiotics with infectious disease consultation. Patient was tentatively scheduled for lumbar puncture, which she declined over the past day or 2. 10/09: This afternoon when seen the patient is awake and alert in the bed. She says she does have some surgical site pain. She also says that she has meningitis although she is not on any special precautions. She did have WBCs and an elevated protein in her CSF specimen sent to the lab but no organisms were seen on Gram stain. So far there has been no growth in the CSF for 24 hours. Upon examination she is mildly tender to the left anterolateral surgical site. There are no evident sensorimotor deficits to the lower extremities. 10/10: When seen the patient is awake in bed on her left side. She quickly shows me a photo of the therapy dog in bed with her earlier. She states that she has a headache and pain to the back and the abdomen. She also reports numbness to the upper extremities. Prior to being seen Physical Therapy informed this practitioner that the patient was able to get up from bed on her own and ambulate 800 feet with standby guard, then get back in bed. The patient was tender to palpation of the complete midline spine and the mid right abdominal wall. Her muscle strength was essentially normal to all extremities and she was slightly reluctant to participate in motor testing. 10/13: The patient is awake and alert laying on her right side when seen. She states that she is having some pain to the left shoulder and that the area is "mush." She wondered if it could be inflammation related to an IV catheter but she has no evident phlebitis, cellulitis or streaking to the left upper extremity. She is tender to the left lateral back, otherwise her exam is the same. All of her cultures are without growth on the final review. 10/14: This afternoon the patient is laying on her back, legs straight, talking on her cellphone. She says she isn't doing well today and complains of pain to the lumbar surgical incision that is shooting up the spine. She does say her abdomen feels okay. Upon evaluation the patient's abdomen is non-tender and the surgical wounds are without infection. The lumbar surgical incision is well- healed without any erythema or streaking to the site. She refuses to allow the area to be palpated. Her motor strength appears normal except for the quadriceps are weak which appears to be related to pain to the low back. (Chandrakant Yeung) Exam Results Vital Signs Date Time Temp Pulse Resp B/P (MAP) Pulse Ox O2 Delivery O2 Flow Rate FiO2 10/14/17 12:00 99.5 84 17 134/78 (96) 95 Intake and Output 10/14/17 10/14/17 10/15/17 08:00 16:00 00:00 Intake Total 600 ml Balance 600 ml (Chandrakant Yeung) Physical Examination GENERAL: Awake & alert in bed laying flat on her back talking on her cellphone. Affect normal. Readily interacts. No apparent distress. SKIN: Abdominal wall surgical sites w/o any signs of infection or drainage. Lumbar back w/o any signs of infection, incision looks good. HEENT: Normocephalic, atraumatic. GASTROINTESTINAL: Abdomen NTTP. Intact steri-strips to multiple abdominal surgical stab wounds. MUSCULOSKELETAL: HOUSE spontaneously & purposefully w/o difficulty. Patient refusing to have back palpated. NEUROLOGICAL: AAOx3. Speech clear & appropriate. Follows simple commands w/o difficulty. Sensation intact to light touch to all extremities. Motor strength is weak to quadriceps bilaterally which appears r/t to referred low back pain, o/w essentially normal to all extremities. (Chandrakant Yeung) Medical Decision Making Impression and Plan Impression: 1. Status post lumboperitoneal shunt with subsequent revision. Patient now presents with fever, increased WBC. 2. Chronic headaches. Etiology undetermined. She has a history of previous migraine headaches. Her headaches have fluctuated significantly on a daily basis over the past month. The patient is doing better today. Pain to lumbar surgical incision radiating up spine per patient. Quadricep weakness bilaterally 2/2 referred low back pain w/testing, o/w essentially normal motor strength. Past 24 hrs: 99.5 T max. Reviewed labs for today. CSF cultures () w/no growth x72 hrs, final . Blood cultures x2 () w/no growth x5 days, . CT/CTA brain unremarkable. MRI/MRA brain unremarkable. CTA neck unremarkable. Plan: Primary management per Hospitalist. Antibiotics per Infectious Disease. Mobilise patient w/assistance as needed. (Chandrakant Yeung) Attending Statement The exam, history, and the medical decision-making described in the above note were completed with the assistance of the mid-level provider. I reviewed and agree with the findings presented. I attest that I had a [id number] encounter with the patient on the same day, and personally performed and documented my assessment and findings in the medical record. All incisions checked on 10/14/2017. Healing well. Abdomen relatively soft No significant nausea. Mild to moderate headache. No nuchal rigidity. Neurologic stable Continuing antibiotics At additional muscle relaxant (Mamadou Cerrato MD) Chandrakant Yeung Oct 14, 2017 16:24 Mamadou Cerrato MD Oct 15, 2017 20:10
[2017-10-14 20:00] VITALS: BP 125/87; PULSE 75; RESP 18; TEMP 99.4; O2SAT 98
[2017-10-14] MEDS: METHOCARBAMOL 500 MG TAB PO PRN (22:31)
[2017-10-15] VITALS: BP 111/65; PULSE 83; RESP 18; TEMP 98.6; O2SAT 99
[2017-10-15] MEDS: SODIUM CHLOR 0.9% 1000 ML INJ 1,000 ML IV SCH ×2 (02:30→21:10)
[2017-10-15] MEDS: VANCOMYCIN INJ 1,500 MG in SODIUM CHLORID 0.9% 500 ML INJ 500 ML IV SCH ×2 (02:31→17:53)
[2017-10-15] MEDS: MORPHINE SULFATE 4 MG/ML INJ IV PUSH PRN ×5 (02:31→21:09)
[2017-10-15 04:00] VITALS: BP 116/62; PULSE 73; RESP 18; TEMP 98.9; O2SAT 98
[2017-10-15] MEDS: cefTRIAXone INJ 2,000 MG in SODIUM CHLORIDE 0.9% INJ 100 ML IV SCH ×2 (04:43→16:26)
[2017-10-15] MEDS: METHOCARBAMOL 500 MG TAB PO PRN ×3 (06:23→23:47)
[2017-10-15] MEDS: SODIUM CHLORIDE 0.9% FLUSH 10 ML FLUSH IV FLUSH SCH ×2 (09:00→21:09)
[2017-10-15] MEDS: DOCUSATE SODIUM 50 MG/SENNA 8.6 MG TAB PO SCH ×2 (09:53→21:08)
[2017-10-15] MEDS: TOPIRAMATE 100 MG TAB PO SCH ×2 (09:53→21:08)
[2017-10-15] MEDS: ACETAMINOPHEN/HYDROcodone 325 MG/10 MG TAB PO PRN ×3 (09:56→23:48)
[2017-10-15 10:11] VITALS: BP 134/87; PULSE 71; RESP 20; TEMP 98.6; O2SAT 98
--- NOTE | 2017-10-15 11:12 | HHI.PR ---
Subjective Remarks Follow-up sepsis/meningitis/pseudotumor cerebri October 11, 2017-patient seen and examined, complains of headache and neck pain along with some visual disturbances. Currently afebrile. Reports some nausea without any emesis October 12, 2017-patient seen and examined, complains of abdominal pain and states she may have some gas. Still with some headaches October 13, 2017-patient seen and examined, complains of neck pain and headaches. Denies any chest pain October 14, 2017-patient seen and examined, reports some improvement of headaches as well as neck pain October 15, 2017-patient seen and examined, patient complains of left shoulder as well as neck pain and is requesting some imaging studies to be performed. Denies any significant headache Objective Vitals Vital Signs Date Time Temp Pulse Resp B/P (MAP) Pulse Ox O2 Delivery O2 Flow Rate FiO2 10/15/17 10:11 98.6 71 20 134/87 (103) 98 10/15/17 04:00 98.9 73 18 116/62 (80) 98 10/15/17 00:00 98.6 83 18 111/65 (80) 99 10/14/17 20:00 99.4 75 18 125/87 (100) 98 10/14/17 16:00 99.8 86 17 118/76 (90) 94 10/14/17 12:00 99.5 84 17 134/78 (96) 95 I/O 10/14/17 10/14/17 10/14/17 10/15/17 10/15/17 10/15/17 07:00 15:00 23:00 07:00 15:00 23:00 Intake Total 600 ml 1515 ml Balance 600 ml 1515 ml IV Total 600 ml 1515 ml # Voids 2 1 2 Result Diagram: 10/11/17 1313 10/14/17 0905 Imaging Last Impressions Lumbar Puncture Fluoroscopy 10/08/17 0000 Signed Impressions: CONCLUSION: 1. Uncomplicated fluoroscopically guided lumbar puncture with pressures as abo ve. Neck CTA 10/05/17 1238 Signed Impressions: CONCLUSION: 1. Negative CTA carotids. Head CTA 10/05/17 1238 Signed Impressions: CONCLUSION: 1. Unremarkable CTA brain. Head Magnetic Resonance Angiography 10/05/17 0000 Signed Impressions: CONCLUSION: 1. Unremarkable MRA brain. Head CT 6/10/18 0000 Signed Impressions: CONCLUSION: 1. Negative CT Head non contrast. Chest X-Ray 10/05/17 Signed Impressions: CONCLUSION: No active disease. Brain MRI 10/05/17 Signed Impressions: CONCLUSION: 1. Unremarkable MRI brain for age. Objective Remarks GENERAL: NAD SKIN: Warm and dry. HEAD: Normocephalic. EYES: No scleral icterus. No injection or drainage. NECK: Supple, trachea midline. No JVD or lymphadenopathy. CARDIOVASCULAR: Regular rate and rhythm without murmurs, gallops, or rubs. RESPIRATORY: Breath sounds equal bilaterally. No accessory muscle use. GASTROINTESTINAL: Abdomen soft, non-tender, nondistended. MUSCULOSKELETAL: No cyanosis, or edema. BACK: Nontender without obvious deformity. No CVA tenderness. A/P Problem List: (1) Sepsis ICD Code: A41.9 - Sepsis, unspecified organism (2) Meningitis ICD Code: G03.9 - Meningitis, unspecified (3) Pseudotumor cerebri ICD Code: G93.2 - Benign intracranial hypertension (4) Leukocytosis ICD Code: D72.829 - Elevated white blood cell count, unspecified (5) Headache ICD Code: R51 - Headache Status: Acute (6) Hypokalemia ICD Code: E87.6 - Hypokalemia Assessment and Plan 32-year-old female with Sepsis: Secondary to meningitis Now resolved Meningitis Continue IV Rocephin 2 g every 12 hours and vancomycin, continue to monitor culture report including CSF and blood culture. Negative to date Appreciate input from infectious disease specialist Pseudotumor cerebri Status post lumboperitoneal shunt with subsequent revision CSF opening pressure within normal limits Appreciate input from neurology, neurosurgery Chronic headaches In this setting, likely secondary to meningitis Continue treatment as an above Continue Topamax Narcotics for pain Abdominal gas retention Resolved with Gax X PRN Left shoulder pain Check shoulder x-ray October 15, 2017 DVT prophylaxis: Heparin Problem Qualifiers (1) Sepsis: Qualified Codes: A41.9 - Sepsis, unspecified organism (2) Leukocytosis: Qualified Codes: D72.829 - Elevated white blood cell count, unspecified (3) Headache: Nemesio Darden MD Oct 15, 2017 11:12
--- NOTE | 2017-10-15 14:08 | RADRPT ---
EXAM DATE: 10/15/2017 1:51 PM EDT AGE/SEX: 32 years / Female INDICATIONS: Evaluate for pain. No known injury. CLINICAL DATA: This is the patient's subsequent encounter. Patient reports that signs and symptoms h ave been present for 2 months and indicates a pain score of 7/10. MEDICAL/SURGICAL HISTORY: . History of idiopathic intracranial hypertension. 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 Kidney stones. Asthma. History of migraine headaches . . Cholecystectomy. Hysterecto my . Renal stent. Lumboperitoneal shunt status post revision COMPARISON: No prior exams available for comparison. FINDINGS: Bony structures are intact and in normal alignment. Joints are intact without dislocation or signifi cant arthropathy. Osseous density is normal. Soft tissues are unremarkable. No radiopaque foreign bodies seen. CONCLUSION: Negative left shoulder series. Electronically signed by: Wallace Bill MD 10/15/2017 2:06 PM EDT
[2017-10-15] MEDS ORDERED: PHARMACY ORDERED LAB ONE (14:45)
[2017-10-15] MEDS: REMOVE OLD DURAGESIC (FENTANYL) PATCH T-DERMAL SCH (15:19)
[2017-10-15] MEDS: fentaNYL 25 MCG/HR PATCH T-DERMAL SCH (15:21)
[2017-10-15 16:15] VITALS: BP 137/70; PULSE 97; RESP 20; TEMP 98.8; O2SAT 97
[2017-10-15 20:00] VITALS: BP 139/75; PULSE 71; RESP 20; TEMP 98.9; O2SAT 98
[2017-10-15 21:00] VITALS: BP 98/58; PULSE 101; RESP 18; TEMP 98.6; O2SAT 95
[2017-10-16 00:15] VITALS: BP 117/57; PULSE 66; RESP 20; TEMP 98.6; O2SAT 96
[2017-10-16] MEDS: SIMETHICONE 125 MG CHEWABLE TAB PO PRN (01:51)
[2017-10-16] MEDS: MORPHINE SULFATE 4 MG/ML INJ IV PUSH PRN ×6 (01:51→22:55)
[2017-10-16] MEDS: ACETAMINOPHEN/HYDROcodone 325 MG/10 MG TAB PO PRN ×3 (03:50→19:40)
[2017-10-16] MEDS: VANCOMYCIN INJ 1,500 MG in SODIUM CHLORID 0.9% 500 ML INJ 500 ML IV SCH ×2 (03:50→15:00)
[2017-10-16 04:00] VITALS: BP 101/60; PULSE 60; RESP 20; TEMP 98.1; O2SAT 98
[2017-10-16] MEDS: cefTRIAXone INJ 2,000 MG in SODIUM CHLORIDE 0.9% INJ 100 ML IV SCH ×2 (06:48→18:23)
[2017-10-16] MEDS: SODIUM CHLOR 0.9% 1000 ML INJ 1,000 ML IV SCH (07:00)
[2017-10-16 08:00] VITALS: BP 110/68; PULSE 102; RESP 18; TEMP 98.3; O2SAT 98
[2017-10-16] MEDS: DOCUSATE SODIUM 50 MG/SENNA 8.6 MG TAB PO SCH ×2 (08:54→22:54)
[2017-10-16] MEDS: METHOCARBAMOL 500 MG TAB PO PRN ×2 (08:54→18:44)
[2017-10-16] MEDS: TOPIRAMATE 100 MG TAB PO SCH ×2 (08:54→22:54)
[2017-10-16] MEDS: SODIUM CHLORIDE 0.9% FLUSH 10 ML FLUSH IV FLUSH SCH ×2 (08:55→22:54)
--- NOTE | 2017-10-16 11:01 | HHI.PR ---
Subjective Remarks Follow-up sepsis/meningitis/pseudotumor cerebri October 11, 2017-patient seen and examined, complains of headache and neck pain along with some visual disturbances. Currently afebrile. Reports some nausea without any emesis October 12, 2017-patient seen and examined, complains of abdominal pain and states she may have some gas. Still with some headaches October 13, 2017-patient seen and examined, complains of neck pain and headaches. Denies any chest pain October 14, 2017-patient seen and examined, reports some improvement of headaches as well as neck pain October 15, 2017-patient seen and examined, patient complains of left shoulder as well as neck pain and is requesting some imaging studies to be performed. Denies any significant headache October 16, 2017-patient seen and examined, discussed left shoulder x-ray results with patient. Told her she will be discharged tomorrow. Reiterated to patient that she needs to get out of bed. Objective Vitals Vital Signs Date Time Temp Pulse Resp B/P (MAP) Pulse Ox O2 Delivery O2 Flow Rate FiO2 10/16/17 08:00 98.3 102 18 110/68 (82) 98 10/16/17 04:00 98.1 60 20 101/60 (74) 98 10/16/17 00:15 98.6 66 20 117/57 (77) 96 10/15/17 21:00 98.6 101 18 98/58 (71) 95 10/15/17 20:00 98.9 71 20 139/75 (96) 98 10/15/17 16:15 98.8 97 20 137/70 (92) 97 I/O 10/15/17 10/15/17 10/15/17 10/16/17 10/16/17 10/16/17 07:00 15:00 23:00 07:00 15:00 23:00 Intake Total 1515 ml 480 ml 960 ml 680 ml Output Total 300 ml Balance 1515 ml 180 ml 960 ml 680 ml Intake Oral 480 ml 960 ml 680 ml IV Total 1515 ml Output Urine Total 300 ml # Voids 2 3 4 # Bowel Movements 0 Result Diagram: 10/14/17 0905 Imaging Last Impressions Shoulder X-Ray 10/15/17 0000 Signed Impressions: CONCLUSION: Negative left shoulder series. Lumbar Puncture Fluoroscopy 10/08/17 0000 Signed Impressions: CONCLUSION: 1. Uncomplicated fluoroscopically guided lumbar puncture with pressures as abo ve. Neck CTA 10/05/178 Signed Impressions: CONCLUSION: 1. Negative CTA carotids. Head CTA 10/05/17 1238 Signed Impressions: CONCLUSION: 1. Unremarkable CTA brain. Head Magnetic Resonance Angiography 10/05/17 0000 Signed Impressions: CONCLUSION: 1. Unremarkable MRA brain. Head CT 10/05/17 Signed Impressions: CONCLUSION: 1. Negative CT Head non contrast. Chest X-Ray 10/05/17 Signed Impressions: CONCLUSION: No active disease. Brain MRI 10/05/17 Signed Impressions: CONCLUSION: 1. Unremarkable MRI brain for age. Objective Remarks GENERAL: NAD SKIN: Warm and dry. HEAD: Normocephalic. EYES: No scleral icterus. No injection or drainage. NECK: Supple, trachea midline. No JVD or lymphadenopathy. CARDIOVASCULAR: Regular rate and rhythm without murmurs, gallops, or rubs. RESPIRATORY: Breath sounds equal bilaterally. No accessory muscle use. GASTROINTESTINAL: Abdomen soft, non-tender, nondistended. MUSCULOSKELETAL: No cyanosis, or edema. BACK: Nontender without obvious deformity. No CVA tenderness. A/P Problem List: (1) Sepsis ICD Code: A41.9 - Sepsis, unspecified organism (2) Meningitis ICD Code: G03.9 - Meningitis, unspecified (3) Pseudotumor cerebri ICD Code: G93.2 - Benign intracranial hypertension (4) Leukocytosis ICD Code: D72.829 - Elevated white blood cell count, unspecified (5) Headache ICD Code: R51 - Headache Status: Acute (6) Hypokalemia ICD Code: E87.6 - Hypokalemia Assessment and Plan 32-year-old female with Sepsis: Secondary to meningitis Now resolved Meningitis Continue IV Rocephin 2 g every 12 hours and vancomycin until today October 16, 2017, continue to monitor culture report including CSF and blood culture. Negative to date Appreciate input from infectious disease specialist Pseudotumor cerebri Status post lumboperitoneal shunt with subsequent revision CSF opening pressure within normal limits Appreciate input from neurology, neurosurgery Chronic headaches In this setting, likely secondary to meningitis Continue treatment as an above Continue Topamax Narcotics for pain Abdominal gas retention Resolved with Gax X PRN Left shoulder pain Shoulder x-ray October 15, 2017 noted and reviewed and unremarkable PT to treat and eval DVT prophylaxis: Heparin Problem Qualifiers (1) Sepsis: Qualified Codes: A41.9 - Sepsis, unspecified organism (2) Leukocytosis: Qualified Codes: D72.829 - Elevated white blood cell count, unspecified (3) Headache: Nemesio Darden MD Oct 16, 2017 11:01
[2017-10-16 11:54] VITALS: BP 121/72; PULSE 51; RESP 18; TEMP 98.4; O2SAT 92
[2017-10-16 14:57] LABS: CREATININE 0.54 MG/DL (0.50-1.00)
[2017-10-16 16:00] VITALS: BP 131/65; PULSE 67; RESP 17; TEMP 98.6; O2SAT 100
--- NOTE | 2017-10-16 16:45 | HHI.NSPN ---
History Chief Complaint: Some pain to the left lateral abdominal wall. Interval History 10/08: 32-year-old female with history of pseudotumor cerebri. Status post lumboperitoneal shunt placement with subsequent revision August 2017. She had a protracted postoperative course as an inpatient with multiple complaints including intermittent headaches, abdominal discomfort, nausea. She presented back to the emergency room with some strokelike symptoms, although the patient states that she just felt dizzy with an increased headache. Today she states that she has a headache near the cervical occipital region. No significant nausea today. She complains of intermittent diffuse abdominal discomfort. No diarrhea. She has been noted to have positive fever upon admission, was started on IV antibiotics with infectious disease consultation. Patient was tentatively scheduled for lumbar puncture, which she declined over the past day or 2. 10/09: This afternoon when seen the patient is awake and alert in the bed. She says she does have some surgical site pain. She also says that she has meningitis although she is not on any special precautions. She did have WBCs and an elevated protein in her CSF specimen sent to the lab but no organisms were seen on Gram stain. So far there has been no growth in the CSF for 24 hours. Upon examination she is mildly tender to the left anterolateral surgical site. There are no evident sensorimotor deficits to the lower extremities. 10/10: When seen the patient is awake in bed on her left side. She quickly shows me a photo of the therapy dog in bed with her earlier. She states that she has a headache and pain to the back and the abdomen. She also reports numbness to the upper extremities. Prior to being seen Physical Therapy informed this practitioner that the patient was able to get up from bed on her own and ambulate 800 feet with standby guard, then get back in bed. The patient was tender to palpation of the complete midline spine and the mid right abdominal wall. Her muscle strength was essentially normal to all extremities and she was slightly reluctant to participate in motor testing. 10/13: The patient is awake and alert laying on her right side when seen. She states that she is having some pain to the left shoulder and that the area is "mush." She wondered if it could be inflammation related to an IV catheter but she has no evident phlebitis, cellulitis or streaking to the left upper extremity. She is tender to the left lateral back, otherwise her exam is the same. All of her cultures are without growth on the final review. 10/14: This afternoon the patient is laying on her back, legs straight, talking on her cellphone. She says she isn't doing well today and complains of pain to the lumbar surgical incision that is shooting up the spine. She does say her abdomen feels okay. Upon evaluation the patient's abdomen is non-tender and the surgical wounds are without infection. The lumbar surgical incision is well- healed without any erythema or streaking to the site. She refuses to allow the area to be palpated. Her motor strength appears normal except for the quadriceps are weak which appears to be related to pain to the low back. 10/16: When seen this afternoon the patient is awake in bed. She reports that she is going home tomorrow. She does have some pain to the left lateral abdominal wall. Her motor strength to the right quadriceps is decreased but the patient does complain of pain with testing. Exam Results 10/14/17 10/14/17 10/15/17 10/15/17 10/16/17 10/16/17 06:00 18:00 06:00 18:00 06:00 18:00 Intake Total 2215 ml 1515 ml 1200 ml 240 ml 680 ml Output Total 300 ml Balance 2215 ml 1515 ml 900 ml 240 ml 680 ml Intake Oral 1200 ml 240 ml 680 ml IV Total 2215 ml 1515 ml Output Urine Total 300 ml # Voids 3 3 3 2 2 # Bowel Movements 0 Vital Signs Date Time Temp Pulse Resp B/P (MAP) Pulse Ox O2 Delivery O2 Flow Rate FiO2 10/16/17 11:54 98.4 51 18 121/72 (88) 92 10/16/17 08:00 98.3 102 18 110/68 (82) 98 10/16/17 04:00 98.1 60 20 101/60 (74) 98 10/16/17 00:15 98.6 66 20 117/57 (77) 96 10/15/17 21:00 98.6 101 18 98/58 (71) 95 10/15/17 20:00 98.9 71 20 139/75 (96) 98 10/15/17 16:15 98.8 97 20 137/70 (92) 97 10/15/17 10:11 98.6 71 20 134/87 (103) 98 10/15/17 04:00 98.9 73 18 116/62 (80) 98 10/15/17 00:00 98.6 83 18 111/65 (80) 99 10/14/17 20:00 99.4 75 18 125/87 (100) 98 10/14/17 16:00 99.8 86 17 118/76 (90) 94 10/14/17 12:00 99.5 84 17 134/78 (96) 95 10/14/17 08:00 99.2 73 16 114/72 (86) 98 10/14/17 04:00 98.5 80 18 130/77 (94) 99 10/14/17 00:02 98.7 73 18 119/71 (87) 96 10/13/17 20:00 98.7 85 18 121/80 (94) 97 Physical Examination GENERAL: Awake & alert in bed. Affect normal. Readily interacts. No apparent distress. SKIN: Abdominal wall surgical sites w/o any signs of infection or drainage. HEENT: Normocephalic, atraumatic. GASTROINTESTINAL: Abdomen TTP to upper left lateral abdominal wall. Intact steri -strips to multiple abdominal surgical stab wounds. MUSCULOSKELETAL: HOUSE spontaneously & purposefully w/o difficulty. NEUROLOGICAL: AAOx3. Speech clear & appropriate. Follows simple commands w/o difficulty. Sensation intact to light touch to all extremities. Motor strength is weak to right quadriceps which appears r/t to referred upper left lateral abdominal wall pain, o/w essentially normal to all extremities. Lab, Micro, Other Results Recent Impressions Shoulder X-Ray 10/15/17 0000 Signed Impressions: CONCLUSION: Negative left shoulder series. Laboratory Tests Test 10/14/17 09:05 10/15/17 17:40 10/16/17 13:33 Creatinine 0.57 MG/DL 0.54 MG/DL Estimat Glomerular Filtration Rate 123 ML/MIN 131 ML/MIN Vancomycin Level Trough 8.7 MCG/ML Medical Decision Making Impression and Plan Impression: 1. Status post lumboperitoneal shunt with subsequent revision. Patient now presents with fever, increased WBC. 2. Chronic headaches. Etiology undetermined. She has a history of previous migraine headaches. Her headaches have fluctuated significantly on a daily basis over the past month. The patient is doing well. Pain to upper left lateral abdominal wall. Quadricep weakness on right 2/2 referred left lateral abdominal wall pain w/testing, o/w essentially normal motor strength. Past 24 hrs: Afebrile. Occasional tachycardia. SBP down to 98 mm Hg once yesterday evening. Reviewed labs for today. CT/CTA brain unremarkable. MRI/MRA brain unremarkable. CTA neck unremarkable. Plan: Primary management per Hospitalist. Antibiotics per Infectious Disease. Mobilise patient w/assistance as needed. Chandrakant Yeung Oct 16, 2017 16:45
[2017-10-16 20:00] VITALS: BP 110/67; PULSE 75; RESP 18; TEMP 99.6; O2SAT 95
[2017-10-17] VITALS: BP 110/69; PULSE 71; RESP 18; TEMP 98.3; O2SAT 92
[2017-10-17] MEDS: ACETAMINOPHEN/HYDROcodone 325 MG/10 MG TAB PO PRN ×2 (00:42→05:47)
[2017-10-17] MEDS ORDERED: PHARMACY ORDERED LAB ONE (02:45)
[2017-10-17] MEDS: VANCOMYCIN INJ 1,500 MG in SODIUM CHLORID 0.9% 500 ML INJ 500 ML IV SCH (03:20)
[2017-10-17] MEDS: MORPHINE SULFATE 4 MG/ML INJ IV PUSH PRN ×2 (03:21→08:27)
[2017-10-17 04:00] VITALS: BP 113/65; PULSE 69; RESP 18; TEMP 98.2; O2SAT 96
[2017-10-17 04:47] LABS: CREATININE 0.51 MG/DL (0.50-1.00); VANCOMYCIN TROUGH 6.1 MCG/ML (5.0-10.0)
[2017-10-17] MEDS: METHOCARBAMOL 500 MG TAB PO PRN (05:47)
[2017-10-17] MEDS: cefTRIAXone INJ 2,000 MG in SODIUM CHLORIDE 0.9% INJ 100 ML IV SCH (06:37)
[2017-10-17] MEDS: TOPIRAMATE 100 MG TAB PO SCH (08:27)
[2017-10-17] MEDS: DOCUSATE SODIUM 50 MG/SENNA 8.6 MG TAB PO SCH (08:27)
[2017-10-17] MEDS: SODIUM CHLORIDE 0.9% FLUSH 10 ML FLUSH IV FLUSH SCH (08:28)
[2017-10-17] MEDS ORDERED: TOPI100 PO (09:09)
[2017-10-17] MEDS ORDERED: METH500T3 PO (09:09)
[2017-10-17] MEDS ORDERED: PROZ20CA11 PO (09:09)
--- NOTE | 2017-10-17 09:13 | HHI.PR ---
Subjective Remarks Follow-up sepsis/meningitis/pseudotumor cerebri October 11, 2017-patient seen and examined, complains of headache and neck pain along with some visual disturbances. Currently afebrile. Reports some nausea without any emesis October 12, 2017-patient seen and examined, complains of abdominal pain and states she may have some gas. Still with some headaches October 13, 2017-patient seen and examined, complains of neck pain and headaches. Denies any chest pain October 14, 2017-patient seen and examined, reports some improvement of headaches as well as neck pain October 15, 2017-patient seen and examined, patient complains of left shoulder as well as neck pain and is requesting some imaging studies to be performed. Denies any significant headache October 16, 2017-patient seen and examined, discussed left shoulder x-ray results with patient. Told her she will be discharged tomorrow. Reiterated to patient that she needs to get out of bed. October 17, 2017-patient seen and examined, she is looking for discharge home today. No acute event overnight and stable Objective Vitals Vital Signs Date Time Temp Pulse Resp B/P (MAP) Pulse Ox O2 Delivery O2 Flow Rate FiO2 10/17/17 04:00 98.2 69 18 113/65 (81) 96 10/17/17 00:00 98.3 71 18 110/69 (83) 92 10/16/17 20:00 99.6 75 18 110/67 (81) 95 10/16/17 16:00 98.6 67 17 131/65 (87) 100 10/16/17 11:54 98.4 51 18 121/72 (88) 92 I/O 10/16/17 10/16/17 10/16/17 10/17/17 10/17/17 10/17/17 07:00 15:00 23:00 07:00 15:00 23:00 Intake Total 680 ml Balance 680 ml Intake Oral 680 ml # Voids 4 1 1 4 Result Diagram: 10/17/17 0312 Imaging Last Impressions Shoulder X-Ray 10/15/17 0000 Signed Impressions: CONCLUSION: Negative left shoulder series. Lumbar Puncture Fluoroscopy 10/08/17 0000 Signed Impressions: CONCLUSION: 1. Uncomplicated fluoroscopically guided lumbar puncture with pressures as abo ve. Neck CTA 10/05/17 1238 Signed Impressions: CONCLUSION: 1. Negative CTA carotids. Head CTA 10/05/17 1238 Signed Impressions: CONCLUSION: 1. Unremarkable CTA brain. Head Magnetic Resonance Angiography 10/05/17 0000 Signed Impressions: CONCLUSION: 1. Unremarkable MRA brain. Head CT 10/05/17 0000 Signed Impressions: CONCLUSION: 1. Negative CT Head non contrast. Chest X-Ray 10/05/17 0000 Signed Impressions: CONCLUSION: No active disease. Brain MRI 10/05/17 0000 Signed Impressions: CONCLUSION: 1. Unremarkable MRI brain for age. Objective Remarks GENERAL: NAD SKIN: Warm and dry. HEAD: Normocephalic. EYES: No scleral icterus. No injection or drainage. NECK: Supple, trachea midline. No JVD or lymphadenopathy. CARDIOVASCULAR: Regular rate and rhythm without murmurs, gallops, or rubs. RESPIRATORY: Breath sounds equal bilaterally. No accessory muscle use. GASTROINTESTINAL: Abdomen soft, non-tender, nondistended. MUSCULOSKELETAL: No cyanosis, or edema. BACK: Nontender without obvious deformity. No CVA tenderness. Procedures Status post lumboperitoneal shunt with subsequent revision A/P Problem List: (1) Sepsis ICD Code: A41.9 - Sepsis, unspecified organism (2) Meningitis ICD Code: G03.9 - Meningitis, unspecified (3) Pseudotumor cerebri ICD Code: G93.2 - Benign intracranial hypertension (4) Leukocytosis ICD Code: D72.829 - Elevated white blood cell count, unspecified (5) Headache ICD Code: R51 - Headache Status: Acute (6) Hypokalemia ICD Code: E87.6 - Hypokalemia Assessment and Plan 32-year-old female with Sepsis: Secondary to meningitis Now resolved Meningitis Completed IV Rocephin 2 g every 12 hours on October 16, 2017, continue to monitor culture report including CSF and blood culture. Negative to date Appreciate input from infectious disease specialist Pseudotumor cerebri Status post lumboperitoneal shunt with subsequent revision CSF opening pressure within normal limits Appreciate input from neurology, neurosurgery Chronic headaches-Improved In this setting, likely secondary to meningitis Continue treatment as an above Continue Topamax Narcotics for pain Abdominal gas retention Resolved with Gax X PRN Left shoulder pain Shoulder x-ray October 15, 2017 noted and reviewed and unremarkable PT to treat and eval DVT prophylaxis: Heparin Problem Qualifiers (1) Sepsis: Qualified Codes: A41.9 - Sepsis, unspecified organism (2) Leukocytosis: Qualified Codes: D72.829 - Elevated white blood cell count, unspecified (3) Headache: Nemesio Darden MD Oct 17, 2017 09:13
--- NOTE | 2017-10-17 09:14 | HHI.DS ---
Discharge Summary Admission Date Oct 07, 2017 at 16:13 Discharge Date: Oct 17, 2017 Admitting Diagnosis Stroke alert, acute focal neurologic deficit, headache (1) Sepsis ICD Code: A41.9 - Sepsis, unspecified organism (2) Meningitis ICD Code: G03.9 - Meningitis, unspecified (3) Pseudotumor cerebri ICD Code: G93.2 - Benign intracranial hypertension (4) Leukocytosis ICD Code: D72.829 - Elevated white blood cell count, unspecified (5) Headache ICD Code: R51 - Headache Status: Acute (6) Hypokalemia ICD Code: E87.6 - Hypokalemia Procedures Status post lumboperitoneal shunt with subsequent revision Brief History - From Admission This is a 32-year-old female with history of pnephrolithiasis, pseudotumor cerebri, status post lumboperitoneal shunt placement in the past, status post revision of the lumboperitoneal shunt 09/19/2017 and was discharged October 02, 2017. Prior to that, patient has been complaining of severe headache at the base of her skull which resolved after the shunt placement. Since discharge, she complained of intractable nausea and vomiting, today around 11 AM she started having a severe headache described as throbbing and pounding with left- sided weakness and numbness involving both arms and legs which she never had in the past. A stroke alert was called on this patient upon ED evaluation. CT scan of the head was unremarkable. CTA of the head was also negative for intracranial hemorrhage or aneurysm. Presently, patient's left-sided weakness is getting better including the numbness. Patient is a complains of severe headache with photophobia. CBC/BMP: 10/17/17 0312 Significant Findings Laboratory Tests Test 10/15/17 17:40 10/16/17 13:33 10/17/17 03:12 Imaging Last Impressions Shoulder X-Ray 10/15/17 0000 Signed Impressions: CONCLUSION: Negative left shoulder series. Lumbar Puncture Fluoroscopy 10/08/17 0000 Signed Impressions: CONCLUSION: 1. Uncomplicated fluoroscopically guided lumbar puncture with pressures as abo ve. Neck CTA 10/05/17 1238 Signed Impressions: CONCLUSION: 1. Negative CTA carotids. Head CTA 10/05/17 1238 Signed Impressions: CONCLUSION: 1. Unremarkable CTA brain. Head Magnetic Resonance Angiography 10/05/17 0000 Signed Impressions: CONCLUSION: 1. Unremarkable MRA brain. Head CT 10/05/17 0000 Signed Impressions: CONCLUSION: 1. Negative CT Head non contrast. Chest X-Ray 10/05/17 Signed Impressions: CONCLUSION: No active disease. Brain MRI 10/05/17 Signed Impressions: CONCLUSION: 1. Unremarkable MRI brain for age. PE at Discharge GENERAL: NAD SKIN: Warm and dry. HEAD: Normocephalic. EYES: No scleral icterus. No injection or drainage. NECK: Supple, trachea midline. No JVD or lymphadenopathy. CARDIOVASCULAR: Regular rate and rhythm without murmurs, gallops, or rubs. RESPIRATORY: Breath sounds equal bilaterally. No accessory muscle use. GASTROINTESTINAL: Abdomen soft, non-tender, nondistended. MUSCULOSKELETAL: No cyanosis, or edema. BACK: Nontender without obvious deformity. No CVA tenderness. Hospital Course While in hospital, patient was treated for Sepsis: Secondary to meningitis Now resolved Meningitis Completed IV Rocephin 2 g every 12 hours on October 16, 2017, continue to monitor culture report including CSF and blood culture. Negative to date Appreciate input from infectious disease specialist Pseudotumor cerebri Status post lumboperitoneal shunt with subsequent revision CSF opening pressure within normal limits Appreciate input from neurology, neurosurgery Chronic headaches-Improved In this setting, likely secondary to meningitis Continue treatment as an above Continue Topamax Narcotics for pain Abdominal gas retention Resolved with Gax X PRN Left shoulder pain Shoulder x-ray October 15, 2017 noted and reviewed and unremarkable PT to treat and eval DVT prophylaxis: Heparin Pt Condition on Discharge: Good Discharge Disposition: Discharge Home Discharge Time: > 30 minutes Discharge Instructions DIET: Follow Instructions for: Heart Healthy Diet Activities you can perform: Regular-No Restrictions Follow up Referrals: Neurology Neurosurgery PCP Follow-up - 1 Week New Medications: Fluoxetine (Prozac) 20 Mg Cap 20 MG PO DAILY for Control Anxiety, #30 CAP 0 Refills Methocarbamol (Methocarbamol) 500 Mg Tab 500 MG PO Q8HR PRN for SPASM, #30 TAB Topiramate (Topamax) 100 Mg Tab 100 MG PO BID for Control Seizures, #60 TAB Continued Medications: Hydrocodone-Acetaminophen ([place]) 10-325 Mg Tab 1 TAB PO Q6H PRN for PAIN, TAB 0 Refills Hydromorphone (Dilaudid) 2 Mg Tab 2 MG PO Q6H PRN for Pain Management, #120 TAB 0 Refills Discontinued Medications: Ondansetron Odt (Zofran Odt) 4 Mg Tab 4 MG SL Q8HR PRN for Nausea/Vomiting for 7 Days, #30 TAB 0 Refills Topiramate (Topamax) 50 Mg Tab 100 MG PO BID for Control Seizures for 30 Days, #120 TAB 0 Refills Nemesio Darden MD Oct 17, 2017 09:14
== END 2017-10-17 11:32 | disposition home or self-care (01) | DRG 862 ==
LOC: NEPC 12:37 → UNDOADMIN 14:48 → NEDA 14:48 → INTOOBSV 16:17 → NEDA 18:08 → NEPHCDU 18:08 → OBSVTOIN 10-07 16:13 → N05B 10-08 18:56
PROVIDERS: ADMIT Hospitalist; ATTEND Hospitalist
PROC: B246ZZ4 Ultrasonography of Right and Left Heart, Transesophageal (ICD-10-PCS; principal; 2017-10-07)
PROC: 009U3ZX Drainage of Spinal Canal, Percutaneous Approach, Diagnostic (ICD-10-PCS; 2017-10-08)
DX: T81.4XXA Infection following a procedure, initial encounter (principal); A41.9 Sepsis, unspecified organism; G03.8 Meningitis due to other specified causes; Z68.41 Body mass index [BMI] 40.0-44.9, adult; G43.409 Hemiplegic migraine, not intractable, without status migrainosus; G93.2 Benign intracranial hypertension; J45.909 Unspecified asthma, uncomplicated; E66.9 Obesity, unspecified; R26.9 Unspecified abnormalities of gait and mobility; E87.6 Hypokalemia; M25.512 Pain in left shoulder; I10 Essential (primary) hypertension; F40.240 Claustrophobia; F12.90 Cannabis use, unspecified, uncomplicated; F17.210 Nicotine dependence, cigarettes, uncomplicated; Z86.14 Personal history of Methicillin resistant Staphylococcus aureus infection; Z88.0 Allergy status to penicillin; Z88.1 Allergy status to other antibiotic agents; Z88.2 Allergy status to sulfonamides; Z88.6 Allergy status to analgesic agent; Z98.2 Presence of cerebrospinal fluid drainage device
CPT/HCPCS: 62270; 70450; 70496; 70498; 70544; 70551; 71046; 73030; 76937; 77003; 80048; 80053; 80061; 80069; 80202; 80307; 81001; 81240; 81241; 82550; 82565; 82945; 82948; 83036; 83735; 84100; 84157; 84484; 84702; 85025; 85303; 85306; 85384; 85597; 85598; 85610; 85613; 85652; 85730; 86403; 86592; 86618; 86651; 86652; 86653; 86654; 86850; 86900; 86901; 87015; 87040; 87070; 87102; 87116; 87205; 87206; 87529; 89051; 93005; 93312; 93320; 93325; 96361; 96365; 96366; 96375; G0378; J0692; J0696; J1200; J1650; J2060; J2270; J2765; J3370; J7030; J7040; Q9967

== ENCOUNTER 2017-10-27 20:38 | Inpatient (IN) ==
--- NOTE | 2017-10-27 21:24 | ED ---
HPI General Chief Complaint: Headache Stated Complaint: Numbness Time Seen by Provider: 10/27/17 20:52 Source: patient Mode of arrival: ambulatory Limitations: no limitations History of Present Illness HPI Narrative: Patient is a 32-year-old female presenting to the emergency department for evaluation of headache, neck pain, intermittent left-sided weakness. Patient states her symptoms started a few days ago but resolved. She states that they returned with a "vengeance" at 4 PM this afternoon. Patient states that she feels dizzy, the headache is in the occipital region and radiates into her neck. Patient states the headache is unlike any headache she has had in the past. She denies any fevers but reports subjective chills. She denies any nausea or vomiting, chest pain, shortness of breath. She states that the weakness comes and goes. He denies any numbness or tingling. She denies any slurred speech but states that her gait veers to the left when she tries to walk. Related Data Home Medications Medication Instructions Recorded Confirmed fluoxetine [Prozac] 10 mg PO DAILY 10/27/17 10/27/17 methocarbamol [Robaxin-750] 750 mg PO QID 10/27/17 10/27/17 topiramate [Topamax] 100 mg PO BID 10/27/17 10/27/17 meclizine 25 mg PO BID PRN 10/28/17 10/28/17 Allergies Allergy/AdvReac Type Severity Reaction Status Date / Time amoxicillin Allergy Severe Anaphylaxis Verified 10/27/17 20:58 ketorolac Allergy Severe Anaphylaxis Verified 10/27/17 20:58 Sulfa (Sulfonamide Allergy Severe RASH Verified 10/27/17 20:58 Antibiotics) ibuprofen Allergy Intermediate HIVES, Verified 10/27/17 20:58 FACIAL SWELLING. tramadol Allergy Intermediate HIVES Verified 10/27/17 20:58 latex Allergy Unknown Hives Verified 10/27/17 20:58 penicillin G Allergy Unknown HIVES Verified 10/27/17 20:58 prochlorperazine Allergy Unknown HIVES Verified 10/27/17 20:58 sumatriptan AdvReac Severe VOMITING Verified 10/27/17 20:58 PASSED OUT Review of Systems Except as stated in HPI: all other systems reviewed are negative Constitutional Reports chills and Reports weakness PMFSH Social History Social History Substance History: No History of Abuse Second Hand Smoke Exposure: Yes Smoking Status: Current some day smoker Tobacco Type: Cigarettes (Few cigarettes occasionally.) How Often Do You Have a Drink Containing Alcohol: Never Recent Travel in [place] within the Last 8 Weeks: No Recent Out of Country Travel within the Last 8 Weeks: No Exam Narrative Exam Narrative: GENERAL: Overweight, disheveled, alert female. Presenting in no acute distress. SKIN: Focused skin assessment warm/dry. HEAD: Atraumatic. Normocephalic. EYES: Pupils equal and round. No scleral icterus. No injection or drainage. ENT: No nasal bleeding or discharge. Mucous membranes pink and moist. NECK: Trachea midline. No JVD. Tenderness to palpation to cervical spine and paraspinal musculature and cervical region. Decreased range of motion with flexion and extension. CARDIOVASCULAR: Regular rate and rhythm. No murmur appreciated. RESPIRATORY: No accessory muscle use. Clear to auscultation. Breath sounds equal bilaterally. GASTROINTESTINAL: Abdomen soft, non-tender, nondistended. Hepatic and splenic margins not palpable. MUSCULOSKELETAL: No obvious deformities. No clubbing. No cyanosis. No edema. NEUROLOGICAL: Awake and alert. No obvious cranial nerve deficits. 5/5 muscle strength on the right upper and lower extremities. 4 out of 5 on the left upper and lower. Normal speech. PSYCHIATRIC: Appropriate mood and affect; insight and judgment normal. Neuro General: moves all extremities Cognition: normal cognition Speech: speech normal Motor: muscle tone normal throughout and no pronator drift Sensory Exam: no sensory deficits noted Course Initial Documented Vital Signs Temperature 98.7 F 10/27/17 21:05 Pulse Rate 75 10/27/17 21:05 Respiratory Rate 16 10/27/17 21:05 Blood Pressure 155/75 H 10/27/17 21:05 Pulse Oximetry 97 10/27/17 21:05 Last Documented Vital Signs Temperature 97.9 F 10/29/17 08:00 Pulse Rate 60 10/29/17 08:00 Respiratory Rate 16 10/29/17 08:00 Blood Pressure 115/55 L 10/29/17 08:00 Pulse Oximetry 99 10/29/17 08:00 Medical Decision Making SEB Attestation SEB supervised visit: Yes Attestation: I, Dr. Blanca, have reviewed the advance practice practitioner's documentation and am in agreement, met with the patient face to face, made the diagnosis, and the medical decision making was done by me. The patient was initially evaluated by Alexa, the nurse practitioner. Please see their complete history and physical. *My assessment and Findings: The patient presents with reported history of worsening headache today. The patient reports that she is on Dilaudid as needed for headaches and pain related to shunt revision. The patient was diagnosed with idiopathic intracranial hypertension status post shunt placement by Dr. Cerrato. The patient on examination has no evidence of nuchal rigidity to suggest meningitis. During the course of the patient's emergency department visit, the patient's history, examination, and differential diagnosis were reviewed with the patient. The patient was placed on a compliance monitor with oximetry and frequent blood pressure monitoring. The patient had IV access obtained and blood work sent for analysis. The patient's studies were reviewed and remarkable for a white count of 8.2, hemoglobin 10, PT 10.6, PTT 26.2 chemistry is remarkable for an AST of 45, alk phos 143, albumin 3.1, ALT 99. The patient CT scan of the brain showed no acute abnormality. Chest x-ray showed no acute abnormality. Given the patient's recent history of possible meningitis and recurrent headache , the patient will be admitted to the hospital for continued observation, IV fluids, IV pain medication and consultation with her neurosurgeon for further guidance. The patient's results were discussed with the patient, including the plan of care. I explained that further testing and/ or monitoring is indicated based on the patient's history, examination, and/ or laboratory findings. Therefore, I recommended admission for additional evaluation. The patient expressed understanding and was agreeable with this plan. The patient was admitted to the hospital in stable condition and sent to a bed under the care of the [facility] service. The patient's case including history, pertinent physical examination findings, and laboratory studies were discussed with Dr. Hernández. It was agreed that the patient would be admitted to the hospitalist service. MDM Narrative Medical decision making narrative: Patient is a 32-year-old female that presented to the emergency department for evaluation of neurological symptoms. Patient's vital signs are stable, labs ordered and pending. Medical records reviewed. Patient was given acetaminophen and Zofran for pain and nausea. Attempted to contact patient's neurologist Dr. Cerrato, he is not consulting utility forester and is out of town. Discussed plan of care with my attending physician who also evaluated patient. Care of patient transferred to my attending physician who will determine patients disposition. Lab Data Result diagrams: 10/28/17 08:27 10/28/17 08:27 Lab Results 10/27/17 10/27/17 10/27/17 Range/Units 22:38 22:38 22:38 WBC 10.9 (4.0-11.0) th/mm3 RBC 3.94 L (4.00-5.30) mil/mm3 Hgb 10.0 L (11.6-15.3) gm/dL Hct 31.1 L (35.0-46.0) % MCV 78.9 L (80.0-100.0) fL MCH 25.4 L (27.0-34.0) pg MCHC 32.2 (32.0-36.0) % RDW 15.0 (11.6-17.2) % Plt Count 536 H (150-450) th/mm3 MPV 7.3 (7.0-11.0) fL Neut % (Auto) 55.3 (16.0-70.0) % Lymph % (Auto) 35.0 (9.0-44.0) % [place] % (Auto) 6.8 (0.0-8.0) % Eos % (Auto) 2.3 (0.0-4.0) % Baso % (Auto) 0.6 (0.0-2.0) % Neut # (Auto) 6.0 (1.8-7.7) th/mm3 Lymph # (Auto) 3.8 (1.0-4.8) th/mm3 [place] # (Auto) 0.7 (0.0-0.9) th/mm3 Eos # (Auto) 0.2 (0.0-0.4) th/mm3 Baso # (Auto) 0.1 (0.0-0.2) th/mm3 WBC Differential . Differential Comment Auto diff final PT 10.6 (9.8-11.6) sec INR 1.0 Ratio APTT 26.2 (24.3-30.1) sec Sodium 143 (136-145) meq/L Potassium 3.4 L (3.5-5.1) meq/L Chloride 109 H (98-107) meq/L Carbon Dioxide 23.5 (21.0-32.0) meq/L Anion Gap 11 (5-15) meq/L BUN 14 (7-18) mg/dL Creatinine 0.57 (0.50-1.00) mg/dL Estimated GFR Greater than 89 (>89) mL/min Random Glucose 92 (74-106) mg/dL Lactic Acid (0.4-2.0) mmol/L Calcium 8.9 (8.5-10.1) mg/dL Magnesium 2.2 (1.5-2.5) mg/dL Total Bilirubin 0.3 (0.2-1.0) mg/dL AST 45 H (15-37) U/L ALT 99 H (10-53) U/L Alkaline Phosphatase 143 H (45-117) U/L Total Creatine Kinase (26-192) U/L Total Protein 7.5 (6.4-8.2) g/dL Albumin 3.1 L (3.4-5.0) g/dL Urine Color (Yellw/Straw) Urine Clarity (Clear) Urine pH (5.0-8.5) Ur Specific [place] (1.002-1.035) Urine Protein (Neg-Trace) mg/dL Urine Glucose (UA) (Negative) mg/dL Urine Ketones (Negative) mg/dL Urine Occult Blood (Negative) Urine Nitrate (Negative) Urine Bilirubin (Negative) Urine Urobilinogen (Less than 2) mg/dL Ur Leukocyte Esterase (Negative) Urine RBC (0-3) /hpf Urine WBC (0-5) /hpf Ur Squamous Epith Cells (0-5) /hpf Calcium Oxalate Crystal (None) /hpf Urine Bacteria (None) /hpf Hyaline Casts (0-3) /lpf Urine Mucus (Occasional) /lpf Micro UA Comment Urine Culture Comments 10/27/17 10/28/17 10/28/17 Range/Units 22:38 08:27 08:27 WBC 8.2 (4.0-11.0) th/mm3 RBC 3.89 L (4.00-5.30) mil/mm3 Hgb 10.0 L (11.6-15.3) gm/dL Hct 30.4 L (35.0-46.0) % MCV 78.3 L (80.0-100.0) fL MCH 25.6 L (27.0-34.0) pg MCHC 32.7 (32.0-36.0) % RDW 15.0 (11.6-17.2) % Plt Count 526 H (150-450) th/mm3 MPV 7.2 (7.0-11.0) fL Neut % (Auto) 57.0 (16.0-70.0) % Lymph % (Auto) 33.9 (9.0-44.0) % [place] % (Auto) 6.1 (0.0-8.0) % Eos % (Auto) 2.6 (0.0-4.0) % Baso % (Auto) 0.4 (0.0-2.0) % Neut # (Auto) 4.7 (1.8-7.7) th/mm3 Lymph # (Auto) 2.8 (1.0-4.8) th/mm3 [place] # (Auto) 0.5 (0.0-0.9) th/mm3 Eos # (Auto) 0.2 (0.0-0.4) th/mm3 Baso # (Auto) 0.0 (0.0-0.2) th/mm3 WBC Differential . Differential Comment Auto diff final PT (9.8-11.6) sec INR Ratio APTT (24.3-30.1) sec Sodium 143 (136-145) meq/L Potassium 3.9 (3.5-5.1) meq/L Chloride 109 H (98-107) meq/L Carbon Dioxide 21.9 (21.0-32.0) meq/L Anion Gap 12 (5-15) meq/L BUN 14 (7-18) mg/dL Creatinine 0.47 L (0.50-1.00) mg/dL Estimated GFR Greater than 89 (>89) mL/min Random Glucose 96 (74-106) mg/dL Lactic Acid 1.0 (0.4-2.0) mmol/L Calcium 9.2 (8.5-10.1) mg/dL Magnesium (1.5-2.5) mg/dL Total Bilirubin (0.2-1.0) mg/dL AST (15-37) U/L ALT (10-53) U/L Alkaline Phosphatase (45-117) U/L Total Creatine Kinase 31 (26-192) U/L Total Protein (6.4-8.2) g/dL Albumin (3.4-5.0) g/dL Urine Color (Yellw/Straw) Urine Clarity (Clear) Urine pH (5.0-8.5) Ur Specific [place] (1.002-1.035) Urine Protein (Neg-Trace) mg/dL Urine Glucose (UA) (Negative) mg/dL Urine Ketones (Negative) mg/dL Urine Occult Blood (Negative) Urine Nitrate (Negative) Urine Bilirubin (Negative) Urine Urobilinogen (Less than 2) mg/dL Ur Leukocyte Esterase (Negative) Urine RBC (0-3) /hpf Urine WBC (0-5) /hpf Ur Squamous Epith Cells (0-5) /hpf Calcium Oxalate Crystal (None) /hpf Urine Bacteria (None) /hpf Hyaline Casts (0-3) /lpf Urine Mucus (Occasional) /lpf Micro UA Comment Urine Culture Comments 10/28/17 Range/Units 11:56 WBC (4.0-11.0) th/mm3 RBC (4.00-5.30) mil/mm3 Hgb (11.6-15.3) gm/dL Hct (35.0-46.0) % MCV (80.0-100.0) fL MCH (27.0-34.0) pg MCHC (32.0-36.0) % RDW (11.6-17.2) % Plt Count (150-450) th/mm3 MPV (7.0-11.0) fL Neut % (Auto) (16.0-70.0) % Lymph % (Auto) (9.0-44.0) % [place] % (Auto) (0.0-8.0) % Eos % (Auto) (0.0-4.0) % Baso % (Auto) (0.0-2.0) % Neut # (Auto) (1.8-7.7) th/mm3 Lymph # (Auto) (1.0-4.8) th/mm3 [place] # (Auto) (0.0-0.9) th/mm3 Eos # (Auto) (0.0-0.4) th/mm3 Baso # (Auto) (0.0-0.2) th/mm3 WBC Differential Differential Comment PT (9.8-11.6) sec INR Ratio APTT (24.3-30.1) sec Sodium (136-145) meq/L Potassium (3.5-5.1) meq/L Chloride (98-107) meq/L Carbon Dioxide (21.0-32.0) meq/L Anion Gap (5-15) meq/L BUN (7-18) mg/dL Creatinine (0.50-1.00) mg/dL Estimated GFR (>89) mL/min Random Glucose (74-106) mg/dL Lactic Acid (0.4-2.0) mmol/L Calcium (8.5-10.1) mg/dL Magnesium (1.5-2.5) mg/dL Total Bilirubin (0.2-1.0) mg/dL AST (15-37) U/L ALT (10-53) U/L Alkaline Phosphatase (45-117) U/L Total Creatine Kinase (26-192) U/L Total Protein (6.4-8.2) g/dL Albumin (3.4-5.0) g/dL Urine Color Yellow (Yellw/Straw) Urine Clarity Cloudy H (Clear) Urine pH 5.0 (5.0-8.5) Ur Specific [place] 1.023 (1.002-1.035) Urine Protein Negative (Neg-Trace) mg/dL Urine Glucose (UA) Negative (Negative) mg/dL Urine Ketones Negative (Negative) mg/dL Urine Occult Blood Negative (Negative) Urine Nitrate Negative (Negative) Urine Bilirubin Negative (Negative) Urine Urobilinogen Less than 2 (Less than 2) mg/dL Ur Leukocyte Esterase Negative (Negative) Urine RBC 5 H (0-3) /hpf Urine WBC 4 (0-5) /hpf Ur Squamous Epith Cells 24 (0-5) /hpf Calcium Oxalate Crystal Occasional H (None) /hpf Urine Bacteria Moderate H (None) /hpf Hyaline Casts 3 (0-3) /lpf Urine Mucus Many H (Occasional) /lpf Micro UA Comment Culture indicated Urine Culture Comments Culture indicated Imaging Data Radiologist's impression: ITS Impressions Chest X-Ray 10/27/17 21:29 CONCLUSION: Mild commentated cardiomegaly without infiltrate or failure. Head CT 10/28/17 00:00 CONCLUSION: 1. Negative noncontrast CT brain, unchanged from 10/05/2017. Discharge Plan Discharge Disposition Patient Disposition: 30 Still Patient Discharge Details Discharge Problem: Acute intractable headache Physicians Team ED Provider: Trish Blanca ED Midlevel Provider: Alexa Zhegn Primary Care Provider: UNKNOWN, Attending Provider: Adam Hickey Other Providers: Mamadou Cerrato Discharge Interventions Interventions: ED Discharge Assessment Last Done: 10/28/17 02:24 Status ED Status: Left Department Discharge Information Discharge Date/Time: 10/28/17 02:15
[2017-10-27] MEDS ORDERED: Sod Chloride 0.9% Inj 1,000 ML IV.SIG SCH ×2 (21:30)
--- NOTE | 2017-10-27 21:52 | XR ---
EXAM DATE: 10/27/2017 9:47 PM EDT AGE/SEX: 32 years / Female INDICATIONS: Fever. CLINICAL DATA: This is the patient's initial encounter. Patient reports that signs and symptoms have been present for 3 days and indicates a pain score of 0/10. MEDICAL/SURGICAL HISTORY: Asthma. Cholecystectomy. section. Renal stent. Lumboperiton eal shunt status post revision. COMPARISON: No prior exams available for comparison. FINDINGS: A single AP view of the chest demonstrates the lungs to be symmetrically aerated without evidence of mass, infiltrate or effusion. Mild compensated cardiomegaly Osseous structures are intact. CONCLUSION: Mild commentated cardiomegaly without infiltrate or failure. Electronically signed by: Ang Torres MD 10/27/2017 9:51 PM EDT
[2017-10-27 22:59] LABS: Baso # (Auto) 0.1 th/mm3 (0.0-0.2); Baso % (Auto) 0.6 % (0.0-2.0); Eos # (Auto) 0.2 th/mm3 (0.0-0.4); Eos % (Auto) 2.3 % (0.0-4.0); Hematocrit 31.1 % (35.0-46.0); Lymph # (Auto) 3.8 th/mm3 (1.0-4.8); Mean Corpuscular HGB Conc 32.2 % (32.0-36.0); Mean Corpuscular Hemoglobin 25.4 pg (27.0-34.0); Mean Corpuscular Volume 78.9 fL (80.0-100.0); Mean Platelet Volume 7.3 fL (7.0-11.0); Mono # (Auto) 0.7 th/mm3 (0.0-0.9); Mono % (Auto) 6.8 % (0.0-8.0); Neut % (Auto) 55.3 % (16.0-70.0); Platelet Count 536 th/mm3 (150-450); Red Blood Count 3.94 mil/mm3 (4.00-5.30); White Blood Count 10.9 th/mm3 (4.0-11.0)
[2017-10-27 23:08] LABS: Activated Partial Thrombo Time 26.2 sec (24.3-30.1); Prothrombin Time 10.6 sec (9.8-11.6)
[2017-10-27 23:18] LABS: Alanine Aminotransferase 99 U/L (10-53); Albumin 3.1 g/dL (3.4-5.0); Anion Gap 11 meq/L (5-15); Aspartate Aminotransferase 45 U/L (15-37); Blood Urea Nitrogen 14 mg/dL (7-18); Calcium 8.9 mg/dL (8.5-10.1); Carbon Dioxide 23.5 meq/L (21.0-32.0); Chloride 109 meq/L (98-107); Glomerular Filtration Rate Greater Than 89 mL/min (>89); Glucose,Random 92 mg/dL (74-106); Magnesium 2.2 mg/dL (1.5-2.5); Potassium 3.4 meq/L (3.5-5.1); Sodium 143 meq/L (136-145)
[2017-10-27 23:20] LABS: Alkaline Phosphatase 143 U/L (45-117); Total Protein 7.5 g/dL (6.4-8.2)
[2017-10-28] MEDS ORDERED: Naloxone Inj 0.4 MG/ML Vial IV.PUSH PRN (01:17)
[2017-10-28 08:39] LABS: Baso % (Auto) 0.4 % (0.0-2.0); Eos # (Auto) 0.2 th/mm3 (0.0-0.4); Eos % (Auto) 2.6 % (0.0-4.0); Hematocrit 30.4 % (35.0-46.0); Lymph # (Auto) 2.8 th/mm3 (1.0-4.8); Lymph % (Auto) 33.9 % (9.0-44.0); Mean Corpuscular HGB Conc 32.7 % (32.0-36.0); Mean Corpuscular Hemoglobin 25.6 pg (27.0-34.0); Mean Corpuscular Volume 78.3 fL (80.0-100.0); Mean Platelet Volume 7.2 fL (7.0-11.0); Mono # (Auto) 0.5 th/mm3 (0.0-0.9); Mono % (Auto) 6.1 % (0.0-8.0); Neut # (Auto) 4.7 th/mm3 (1.8-7.7); Platelet Count 526 th/mm3 (150-450); Red Blood Count 3.89 mil/mm3 (4.00-5.30); White Blood Count 8.2 th/mm3 (4.0-11.0)
[2017-10-28 09:01] LABS: Anion Gap 12 meq/L (5-15); Blood Urea Nitrogen 14 mg/dL (7-18); Calcium 9.2 mg/dL (8.5-10.1); Carbon Dioxide 21.9 meq/L (21.0-32.0); Chloride 109 meq/L (98-107); Glomerular Filtration Rate Greater Than 89 mL/min (>89); Glucose,Random 96 mg/dL (74-106); Potassium 3.9 meq/L (3.5-5.1); Sodium 143 meq/L (136-145)
[2017-10-28 09:10] LABS: Creatine Kinase 31 U/L (26-192)
[2017-10-28] MEDS: Topiramate 100 MG Tablet PO SCH ×2 (09:17→21:04)
[2017-10-28] MEDS: FLUoxetine 10 MG Capsule PO SCH (09:17)
[2017-10-28] MEDS: Methocarbamol 500 MG Tablet PO SCH ×4 (09:17→20:53)
[2017-10-28] MEDS: Morphine Inj 4 MG/ML Vial IV.PUSH PRN ×3 (12:21→22:56)
[2017-10-28 13:13] LABS: Bacteria,Urine Moderate /hpf; Bilirubin,Urine Negative (Negative); Calcium Oxalate Crystals,Urine Occasional /hpf; Clarity,Urine Cloudy (Clear); Color,Urine Yellow (Yellw/Straw); Glucose,Urine (UA) Negative (Negative); Hyaline Casts,Urine 3 /lpf (0-3); Leukocyte Esterase,Urine Negative (Negative); Mucus,Urine Many /lpf (Occasional); Nitrite,Urine Negative (Negative); Specific Gravity,Urine 1.023 (1.002-1.035); Squamous Epithelial Cell,Urine 24 /hpf (0-5)
--- NOTE | 2017-10-28 18:39 | P.HP ---
History of Present Illness Service: [facility] Primary Care Physician: UNKNOWN Chief Complaint: Severe headache History of Present Illness: Written by Tristian Solorzano, acting as scribe for Dr. Lee on 10/28/17 at 18:36. Patient is a 32-year-old female with primary medical history of chronic headaches, pseudotumors cerebri who initially came to the hospital for complaints of severe headache and neck pain 2 days. Patient states that she felt that her head is being compressed and also that everything is tilted sideways. Reports she is unable to walk straight and has to be guided by her because of "feeling tilted." States she has been very 2 days ago 103 but she took Tylenol and break off to fever, yesterday states that she also has a fever prior to coming to the hospital at 101 but it broke off after taking some Tylenol and cooling herself off. Patient states she has meningitis about 2 weeks ago but reports no exposure to anyone who is sick. States that it almost felt the same with headaches throughout her head and spine area, constant , rated 8/10, feeling compressed, does not know what aggravates or relieves them headache. Otherwise, denies SOB/ dyspnea. Denies chest pain, palpitations , headaches, dizziness. Denies chills. Reports nausea, vomiting. Denies abdominal pain or discomfort. Denies hematuria, dysuria. Reports polyuria, poor appetite. - Diagnosis (1) Severe headache (2) Hx: meningitis - Inpatient Certification If this patient has been admitted as an Inpatient: I certify that the inpatient services were ordered in accordance with Medicare regulations governing the order. This includes certification that hospital inpatient services are reasonable and necessary and in the case of services not specified as inpatient-only under 42 CFR 419.22(n), that they are appropriately provided as inpatient services in accordance to with the 2-midnight benchmark under 43 CFR 412.3(e) Estimated Total Length of Stay (Days): 2 Plans for Post Hospital Care: Home Review of Systems All other systems reviewed negative except as stated in HPI PMFSH - History History Provided By: Patient - Medical History Medical History: Medical History (Last Updated 10/27/17 @ 21:19 by Sharyn Sequeira RN) delivery delivered Hx of headache Lumbar puncture headache Presence of lumboperitoneal shunt - Surgical History Surgical History: Surgical History (Last Updated 10/28/17 @ 18:39 by CELINE Armstrong) History of renal stent Status post lumboperitoneal shunt placement - Tobacco History Second Hand Smoke Exposure: Yes Tobacco Use In Past 30 Days: Yes Smoking Status: Current some day smoker Tobacco Type: Cigarettes (Few cigarettes occasionally.) - Alcohol History How Often Do You Have a Drink Containing Alcohol: Never - Substance Use History Substance History: No History of Abuse - Travel History Recent Travel in the [place] Within the Last 8 Weeks: No Recent Travel Out of the Country Within the Last 8 Weeks: No - Immunization History Tetanus Immunization: >5 Years Hx Influenza Vaccine This Season: No Medications and Allergies Active Medications: Active Medications Hydrocodone Bitart/Acetaminophen ([place] 5/325) 1 tab PO Q4H PRN PRN Reason: PAIN SCALE 3 TO 5 Hydrocodone Bitart/Acetaminophen ([place] 7.5/325) 1 tab PO Q4H PRN PRN Reason: PAIN SCALE 6 TO 10 Last Admin: 10/28/17 14:56 Dose: 1 tab Fluoxetine HCl (Prozac) 10 mg PO DAILY [facility] Last Admin: 10/28/17 09:17 Dose: 10 mg Sodium Chloride (Ns Inj) 1,000 mls @ 0 mls/hr IV.SIG .Q0M [facility] Last Infusion: 10/28/17 06:09 Dose: Infused Sodium Chloride (Ns Inj) 1,000 mls @ 0 mls/hr IV.SIG .Q0M [facility] Last Infusion: 10/28/17 06:09 Dose: Infused Methocarbamol (Robaxin) 750 mg PO QID [facility] Last Admin: 10/28/17 17:27 Dose: 750 mg Morphine Sulfate (Morphine Inj) 4 mg IV.PUSH Q3H PRN PRN Reason: BREAKTHROUGH PAIN Last Admin: 10/28/17 17:28 Dose: 4 mg Naloxone HCl (Narcan Inj) 0.4 mg IV.PUSH UNSCH PRN PRN Reason: SEE LABEL COMMENTS Topiramate (Topamax) 100 mg PO BID [facility] Last Admin: 10/28/17 09:17 Dose: 100 mg Allergies Allergy/AdvReac Type Severity Reaction Status Date / Time amoxicillin Allergy Severe Anaphylaxis Verified 10/27/17 20:58 ketorolac Allergy Severe Anaphylaxis Verified 10/27/17 20:58 Sulfa (Sulfonamide Allergy Severe RASH Verified 10/27/17 20:58 Antibiotics) ibuprofen Allergy Intermediate HIVES, Verified 10/27/17 20:58 FACIAL SWELLING. tramadol Allergy Intermediate HIVES Verified 10/27/17 20:58 latex Allergy Unknown Hives Verified 10/27/17 20:58 penicillin G Allergy Unknown HIVES Verified 10/27/17 20:58 prochlorperazine Allergy Unknown HIVES Verified 10/27/17 20:58 sumatriptan AdvReac Severe VOMITING Verified 10/27/17 20:58 PASSED OUT Home Medications Medication Instructions Recorded Confirmed Type fluoxetine [Prozac] 10 mg PO DAILY 10/27/17 10/27/17 History methocarbamol [Robaxin-750] 750 mg PO QID 10/27/17 10/27/17 History topiramate [Topamax] 100 mg PO BID 10/27/17 10/27/17 History meclizine 25 mg PO BID PRN 10/28/17 10/28/17 History Exam Vital signs: Vital Signs 10/27/17 21:05 10/27/17 21:29 10/27/17 22:03 Temperature 98.7 F Pulse Rate 75 81 85 Respiratory Rate 16 Blood Pressure 155/75 H Pulse Oximetry 97 100 10/28/17 01:41 10/28/17 04:00 10/28/17 05:25 Temperature 98.1 F Pulse Rate 78 61 Respiratory Rate 16 16 18 Blood Pressure 116/59 L 109/63 Pulse Oximetry 97 10/28/17 07:51 10/28/17 10:19 10/28/17 12:36 Temperature 98.0 F 98.4 F Pulse Rate 61 55 L Respiratory Rate 16 18 18 Blood Pressure 119/72 131/85 Pulse Oximetry 97 100 10/28/17 16:00 Temperature 98.2 F Pulse Rate 66 Respiratory Rate 18 Blood Pressure 125/65 Pulse Oximetry 97 Intake & Output 10/27/17 10/28/17 10/28/17 18:59 06:59 18:59 Intake Total 2099 Balance 2099 Weight 104.326 kg Intake: IV 2099 Ofirmev Inj 1,000 mg In 100 ml 100 / 100 @ 400 mls/hr IV.SIG ONCE ONE Rx #:[id number] NS Inj 1,000 ML @ Wide Open IV. 1999 SIG .Q0M SANYD Rx#:[id number] Other: Date of Last Bowel Movement 10/25/17 Narrative: GENERAL: This is a obese, well-developed patient, in no apparent distress. SKIN: Warm and dry. HEENT: Normocephalic. Pupils equal round and reactive. Nose without bleeding. Airway patent. NECK: Trachea midline. No JVD. Supple. No nuchal rigidity. CARDIOVASCULAR: Regular rate and rhythm without murmurs, gallops, or rubs. RESPIRATORY: Clear to auscultation. Breath sounds equal bilaterally. No wheezes , rales, or rhonchi. GASTROINTESTINAL: Abdomen soft, nondistended. Bowel Sounds normoactive x4. Left lower quadrant tender to palpate, previous incision site clean dry and intact, palpable shunt MUSCULOSKELETAL: Extremities without clubbing, cyanosis, or edema. NEUROLOGICAL: Awake and alert. Oriented to time, place, person. No focal neuro deficit. Moves all extremities. Normal speech. Results - Labs CBC & Chem 7: 10/28/17 08:27 10/28/17 08:27 Labs: Laboratory Results - last 24 hr 10/27/17 10/27/17 10/27/17 22:38 22:38 22:38 WBC 10.9 RBC 3.94 L Hgb 10.0 L Hct 31.1 L MCV 78.9 L MCH 25.4 L MCHC 32.2 RDW 15.0 Plt Count 536 H MPV 7.3 Neut % (Auto) 55.3 Lymph % (Auto) 35.0 [place] % (Auto) 6.8 Eos % (Auto) 2.3 Baso % (Auto) 0.6 Neut # (Auto) 6.0 Lymph # (Auto) 3.8 [place] # (Auto) 0.7 Eos # (Auto) 0.2 Baso # (Auto) 0.1 WBC Differential . Differential Comment Auto diff final PT 10.6 INR 1.0 APTT 26.2 Sodium 143 Potassium 3.4 L Chloride 109 H Carbon Dioxide 23.5 Anion Gap 11 BUN 14 Creatinine 0.57 Estimated GFR Greater than 89 Random Glucose 92 Lactic Acid Calcium 8.9 Magnesium 2.2 Total Bilirubin 0.3 AST 45 H ALT 99 H Alkaline Phosphatase 143 H Total Creatine Kinase Total Protein 7.5 Albumin 3.1 L Urine Color Urine Clarity Urine pH Ur Specific [place] Urine Protein Urine Glucose (UA) Urine Ketones Urine Occult Blood Urine Nitrate Urine Bilirubin Urine Urobilinogen Ur Leukocyte Esterase Urine RBC Urine WBC Ur Squamous Epith Cells Calcium Oxalate Crystal Urine Bacteria Hyaline Casts Urine Mucus Micro UA Comment Urine Culture Comments 10/27/17 10/28/17 10/28/17 22:38 08:27 08:27 WBC 8.2 RBC 3.89 L Hgb 10.0 L Hct 30.4 L MCV 78.3 L MCH 25.6 L MCHC 32.7 RDW 15.0 Plt Count 526 H MPV 7.2 Neut % (Auto) 57.0 Lymph % (Auto) 33.9 [place] % (Auto) 6.1 Eos % (Auto) 2.6 Baso % (Auto) 0.4 Neut # (Auto) 4.7 Lymph # (Auto) 2.8 [place] # (Auto) 0.5 Eos # (Auto) 0.2 Baso # (Auto) 0.0 WBC Differential . Differential Comment Auto diff final PT INR APTT Sodium 143 Potassium 3.9 Chloride 109 H Carbon Dioxide 21.9 Anion Gap 12 BUN 14 Creatinine 0.47 L Estimated GFR Greater than 89 Random Glucose 96 Lactic Acid 1.0 Calcium 9.2 Magnesium Total Bilirubin AST ALT Alkaline Phosphatase Total Creatine Kinase 31 Total Protein Albumin Urine Color Urine Clarity Urine pH Ur Specific [place] Urine Protein Urine Glucose (UA) Urine Ketones Urine Occult Blood Urine Nitrate Urine Bilirubin Urine Urobilinogen Ur Leukocyte Esterase Urine RBC Urine WBC Ur Squamous Epith Cells Calcium Oxalate Crystal Urine Bacteria Hyaline Casts Urine Mucus Micro UA Comment Urine Culture Comments 10/28/17 11:56 WBC RBC Hgb Hct MCV MCH MCHC RDW Plt Count MPV Neut % (Auto) Lymph % (Auto) [place] % (Auto) Eos % (Auto) Baso % (Auto) Neut # (Auto) Lymph # (Auto) [place] # (Auto) Eos # (Auto) Baso # (Auto) WBC Differential Differential Comment PT INR APTT Sodium Potassium Chloride Carbon Dioxide Anion Gap BUN Creatinine Estimated GFR Random Glucose Lactic Acid Calcium Magnesium Total Bilirubin AST ALT Alkaline Phosphatase Total Creatine Kinase Total Protein Albumin Urine Color Yellow Urine Clarity Cloudy H Urine pH 5.0 Ur Specific [place] 1.023 Urine Protein Negative Urine Glucose (UA) Negative Urine Ketones Negative Urine Occult Blood Negative Urine Nitrate Negative Urine Bilirubin Negative Urine Urobilinogen Less than 2 Ur Leukocyte Esterase Negative Urine RBC 5 H Urine WBC 4 Ur Squamous Epith Cells 24 Calcium Oxalate Crystal Occasional H Urine Bacteria Moderate H Hyaline Casts 3 Urine Mucus Many H Micro UA Comment Culture indicated Urine Culture Comments Culture indicated - Imaging Impressions Chest X-Ray 10/27/17 21:29 CONCLUSION: Mild commentated cardiomegaly without infiltrate or failure. Head CT 10/28/17 00:00 CONCLUSION: 1. Negative noncontrast CT brain, unchanged from 10/05/2017. Caprini VTE Risk Assessment Caprini VTE Risk Assessment: No/Low Risk (score <= 1) Caprini Risk Assessment Model: Point Value = 1 Point Value = 2 Point Value = 3 Point Value = 5 Age 41-60 Minor surgery BMI > 25 kg/m2 Swollen legs Varicose veins or History of unexplained or recurrent spontaneous Oral contraceptives or hormone replacement Sepsis (< 1 month) Serious lung disease, including pneumonia (< 1 month) Abnormal pulmonary function Acute myocardial infarction Congestive heart failure (< 1 month) History of inflammatory bowel disease Medical patient at bed rest Age 61-74 Arthroscopic surgery Major open surgery (> 45 min) Laparoscopic surgery (> 45 min) Malignancy Confined to bed (> 72 hours) Immobilizing plaster cast Central venous access Age >= 75 History of VTE Family history of VTE Factor V Leiden Prothrombin [id number] Lupus anticoagulant Anticardiolipin antibodies Elevated serum homocysteine Heparin-induced thrombocytopenia Other congenital or acquired thrombophilia Stroke (< 1 month) Elective arthroplasty Hip, pelvis, or leg fracture Acute spinal cord injury (< 1 month) Prophylaxis Regimen: Total Risk Factor Score Risk Level Prophylaxis Regimen 0-1 Low Early ambulation 2 Moderate Order ONE of the following: *Sequential Compression Device (SCD) *Heparin 5000 units SQ BID 3-4 Higher Order ONE of the following medications: *Heparin 5000 units SQ TID *Enoxaparin/Lovenox 40 mg SQ daily (WT < 150 kg, CrCl > 30 mL/min) *Enoxaparin/Lovenox 30 mg SQ daily (WT < 150 kg, CrCl > 10-29 mL/min) *Enoxaparin/Lovenox 30 mg SQ BID (WT < 150 kg, CrCl > 30 mL/min) AND/OR *Sequential Compression Device (SCD) 5 or more Highest Order ONE of the following medications: *Heparin 5000 units SQ TID (Preferred with Epidurals) *Enoxaparin/Lovenox 40 mg SQ daily (WT < 150 kg, CrCl > 30 mL/min) *Enoxaparin/Lovenox 30 mg SQ daily (WT < 150 kg, CrCl > 10-29 mL/min) *Enoxaparin/Lovenox 30 mg SQ BID (WT < 150 kg, CrCl > 30 mL/min) AND *Sequential Compression Device (SCD) Assessment and Plan - Assessment (1) Severe headache Code(s): R51 - Headache Status: Acute (2) Hx: meningitis Code(s): Z86.61 - Personal history of infections of the central nervous system Status: Acute - Plan Patient is a 32-year-old female with primary medical history of chronic headaches, pseudotumors cerebri who initially came to the hospital for complaints of. Severe headache and neck pain 2 days. R/O Meningitis Severe headache, reports fevers and chills at home History of meningitis History of pseudotumor cerebri Chronic headaches -Rule out meningitis, afebrile on admission, WBC within normal -Plan for LP was not done today as patient refused. Discussed with patient extensively that refusal of necessary diagnostic testing and other medical advice is detrimental to her well-being. Patient states that she does not agree with the LP earlier because she thought that she will not get her Ativan and she is very particular on the physician who is doing the LP that it might hit her tube for her shunt. Also patient states that she wanted to see the physician first before deciding on doing the LP or not. Discussed extensively that all of this diagnostic orders are being done for medical decision-making and any delays may delay treatment. Also discussed with patient that if abx is started on her, may affect the results of the lumbar punctures since she was not able to do it prior to starting antibiotic. -Neurosurgery consulted appreciate recommendation -Continue pain management for now. Continue Topamax -On exam patient has no neck stiffness, able to move neck without difficulty , afebrile. Plan for blood cultures for now. Will not start patient on antibiotics since there is no white count, afebrile. -If patient becomes febrile will start antibiotic treatment ceftriaxone. Patient previously treated with IV Rocephin as per ID recommendations. Previous CSF result from prior admission was negative Nausea, vomiting Vertigo -Continue meclizine, Zofran DVT prop SCDs Code Status: Full code Discussed Condition With: Patient, nursing Discharge Planning: Plan to DC home when clinically improved. Pending LP
--- NOTE | 2017-10-28 19:46 | P.CONNS ---
History of Present Illness Service: Neurosurgery Consult date: 10/28/17 Requesting Physician: Zuleima Lee Reason for Consult: Headache post shunt Primary Care Provider: UNKNOWN Family Provider: UNKNOWN Chief Complaint: Severe headache History of Present Illness: 32-year-old female with history of idiopathic intracranial hypertension. Underwent an initial lumboperitoneal shunt placement 08/12/2017. Postoperative course complicated by significant abdominal pain primarily at the right subcostal margin postoperative. She underwent a laparoscopic revision of the peritoneal catheter on 09/19/2017, with the catheter removed to the left side. She had intermittent headaches, with some nausea and vomiting intermittent following the catheter replacement. She was eventually discharged but soon readmitted with complaint of persistent headaches and some neck stiffness as well as a passing out episode. She underwent a lumbar puncture on 10/08/2017 with no growth on CSF and negative bacteria on Gram stain but WBCs increased to 120 with 35 RBC. She was seen by infectious disease and started on an initial course of cefepime and vancomycin. She completed a subsequent course of IV Rocephin on 10/16/2017. She came back to the emergency room on 10/25/2017 complaining of headache. She was noted to be afebrile with white count 10.9. She was given morphine and Zofran for symptomatic relief of the headache. She returns back to the emergency room on 10/27/2017 with complaint of persistent headaches and fever. Patient afebrile in the emergency room. 10/28/2017 WBC 8.2. She states that for the past 3 days or so she has had significant increased headaches, pressure feeling in her eyes, neck discomfort, some nausea. She denies any significant abdominal discomfort. She states that prior to the past 3 days, she was feeling quite a bit better, improvement in her headaches and vision overall and was ambulating better. She states she had a fever of 103 in the past couple of days. [facility] - History History Provided By: Patient - Medical History Medical History: Medical History (Last Updated 10/27/17 @ 21:19 by Sharyn Sequeira RN) delivery delivered Hx of headache Lumbar puncture headache Presence of lumboperitoneal shunt - Surgical History Surgical History: Surgical History (Last Updated 10/28/17 @ 18:39 by CELINE Armstrong) History of renal stent Status post lumboperitoneal shunt placement - Tobacco History Second Hand Smoke Exposure: Yes Tobacco Use In Past 30 Days: Yes Smoking Status: Current some day smoker Tobacco Type: Cigarettes (Few cigarettes occasionally.) - Alcohol History How Often Do You Have a Drink Containing Alcohol: Never - Substance Use History Substance History: No History of Abuse - Travel History Recent Travel in the [place] Within the Last 8 Weeks: No Recent Travel Out of the Country Within the Last 8 Weeks: No - Immunization History Tetanus Immunization: >5 Years Hx Influenza Vaccine This Season: No Medications and Allergies Active Medications: Active Medications Hydrocodone Bitart/Acetaminophen ([place] 5/325) 1 tab PO Q4H PRN PRN Reason: PAIN SCALE 3 TO 5 Hydrocodone Bitart/Acetaminophen ([place] 7.5/325) 1 tab PO Q4H PRN PRN Reason: PAIN SCALE 6 TO 10 Last Admin: 10/28/17 14:56 Dose: 1 tab Fluoxetine HCl (Prozac) 10 mg PO DAILY [facility] Last Admin: 10/28/17 09:17 Dose: 10 mg Sodium Chloride (Ns Inj) 1,000 mls @ 0 mls/hr IV.SIG .Q0M [facility] Last Infusion: 10/28/17 06:09 Dose: Infused Sodium Chloride (Ns Inj) 1,000 mls @ 0 mls/hr IV.SIG .Q0M [facility] Last Infusion: 10/28/17 06:09 Dose: Infused Methocarbamol (Robaxin) 750 mg PO QID [facility] Last Admin: 10/28/17 17:27 Dose: 750 mg Morphine Sulfate (Morphine Inj) 4 mg IV.PUSH Q3H PRN PRN Reason: BREAKTHROUGH PAIN Last Admin: 10/28/17 17:28 Dose: 4 mg Naloxone HCl (Narcan Inj) 0.4 mg IV.PUSH UNSCH PRN PRN Reason: SEE LABEL COMMENTS Topiramate (Topamax) 100 mg PO BID [facility] Last Admin: 10/28/17 09:17 Dose: 100 mg Allergies Allergy/AdvReac Type Severity Reaction Status Date / Time amoxicillin Allergy Severe Anaphylaxis Verified 10/27/17 20:58 ketorolac Allergy Severe Anaphylaxis Verified 10/27/17 20:58 Sulfa (Sulfonamide Allergy Severe RASH Verified 10/27/17 20:58 Antibiotics) ibuprofen Allergy Intermediate HIVES, Verified 10/27/17 20:58 FACIAL SWELLING. tramadol Allergy Intermediate HIVES Verified 10/27/17 20:58 latex Allergy Unknown Hives Verified 10/27/17 20:58 penicillin G Allergy Unknown HIVES Verified 10/27/17 20:58 prochlorperazine Allergy Unknown HIVES Verified 10/27/17 20:58 sumatriptan AdvReac Severe VOMITING Verified 10/27/17 20:58 PASSED OUT Home Medications Medication Instructions Recorded Confirmed Type fluoxetine [Prozac] 10 mg PO DAILY 10/27/17 10/27/17 History methocarbamol [Robaxin-750] 750 mg PO QID 10/27/17 10/27/17 History topiramate [Topamax] 100 mg PO BID 10/27/17 10/27/17 History meclizine 25 mg PO BID PRN 10/28/17 10/28/17 History Exam Vital signs: Vital Signs 10/27/17 21:05 10/27/17 21:29 10/27/17 22:03 Temperature 98.7 F Pulse Rate 75 81 85 Respiratory Rate 16 Blood Pressure 155/75 H Pulse Oximetry 97 100 10/28/17 01:41 10/28/17 04:00 10/28/17 05:25 Temperature 98.1 F Pulse Rate 78 61 Respiratory Rate 16 16 18 Blood Pressure 116/59 L 109/63 Pulse Oximetry 97 10/28/17 07:51 10/28/17 10:19 10/28/17 12:36 Temperature 98.0 F 98.4 F Pulse Rate 61 55 L Respiratory Rate 16 18 18 Blood Pressure 119/72 131/85 Pulse Oximetry 97 100 10/28/17 16:00 Temperature 98.2 F Pulse Rate 66 Respiratory Rate 18 Blood Pressure 125/65 Pulse Oximetry 97 Intake & Output 10/28/17 10/28/17 10/29/17 06:59 18:59 06:59 Intake Total 2099 Balance 2099 Weight 104.326 kg Intake: IV 2099 Ofirmev Inj 1,000 mg In 100 ml 100 / 100 @ 400 mls/hr IV.SIG ONCE ONE Rx #:[id number] NS Inj 1,000 ML @ Wide Open IV. 1999 SIG .Q0M [facility] Rx#:[id number] Other: # Voids 2 Date of Last Bowel Movement 10/25/17 Narrative: Awake and alert Mild neck tenderness without nuchal rigidity. Moderate cervical range of motion with mild discomfort. Previous lumbar and abdominal skin incisions are dry and intact. Mild tenderness primarily left midabdomen. No rebound tenderness. No abdominal distention. No significant skin lesion or rash Awake and alert conversant appropriate Extraocular movements intact Counts fingers all quadrants bilateral Sensation intact light touch all extremities Strength within normal limits major flexion-extension groups all extremities Results - Laboratory Findings CBC and BMP: 10/28/17 08:27 10/28/17 08:27 Abnormal lab findings: Abnormal Labs 10/27/17 10/27/17 10/28/17 22:38 22:38 08:27 RBC 3.94 L 3.89 L Hgb 10.0 L 10.0 L Hct 31.1 L 30.4 L MCV 78.9 L 78.3 L MCH 25.4 L 25.6 L Plt Count 536 H 526 H Potassium 3.4 L Chloride 109 H Creatinine AST 45 H ALT 99 H Alkaline Phosphatase 143 H Albumin 3.1 L Urine Clarity Urine RBC Calcium Oxalate Crystal Urine Bacteria Urine Mucus 10/28/17 10/28/17 08:27 11:56 RBC Hgb Hct MCV MCH Plt Count Potassium Chloride 109 H Creatinine 0.47 L AST ALT Alkaline Phosphatase Albumin Urine Clarity Cloudy H Urine RBC 5 H Calcium Oxalate Crystal Occasional H Urine Bacteria Moderate H Urine Mucus Many H - Diagnostic Findings Additional findings: 10/28/2017 CT scan head images are reviewed and are within normal limits Assessment and Plan - Plan Impression: 1. Patient with history of intracranial hypertension, status post lumboperitoneal shunt with subsequent peritoneal catheter laparoscopic revision. Now presents with fever, recurrent headaches. No definite sign of meningitis on the basis of initial exam, lab results, vital signs. Plan: Discussed with patient It has been previously recommended that she proceed with a follow-up lumbar puncture within the first couple weeks after completion of her recent antibiotic treatment regimen. It is again recommended that she proceed with lumbar puncture to make certain that she does not have any indolent CSF or shunt infection. Hold antibiotics pending lumbar puncture.
[2017-10-29] MEDS: Topiramate 100 MG Tablet PO SCH ×2 (08:51→21:52)
[2017-10-29] MEDS: Methocarbamol 500 MG Tablet PO SCH ×4 (08:51→21:52)
[2017-10-29] MEDS: FLUoxetine 10 MG Capsule PO SCH (08:52)
[2017-10-29] MEDS: Morphine Inj 4 MG/ML Vial IV.PUSH PRN ×2 (11:24→17:06)
--- NOTE | 2017-10-29 12:35 | P.PNNS ---
Subjective Interval history: Pt resting in bed complaining of headache. She states her eyes hurt to move them. No fever or chills. <Nemesio Dasilva - Last Filed: 10/29/17 12:27> Physical Exam Vital signs: Vital Signs 10/28/17 12:36 10/28/17 16:00 10/28/17 20:00 Temperature 98.4 F 98.2 F Pulse Rate 55 L 66 58 L Respiratory Rate 18 18 Blood Pressure 131/85 125/65 Pulse Oximetry 100 97 10/28/17 20:45 10/29/17 00:00 10/29/17 00:45 Temperature 98.2 F 97.8 F Pulse Rate 60 57 L Respiratory Rate 20 20 Blood Pressure 102/54 L 81/43 L 117/63 Pulse Oximetry 96 98 10/29/17 04:00 10/29/17 08:00 10/29/17 11:28 Temperature 97.5 F L 97.9 F Pulse Rate 67 60 Respiratory Rate 20 16 18 Blood Pressure 103/56 L 115/55 L Pulse Oximetry 99 99 Intake & Output 10/28/17 10/29/17 10/29/17 18:59 06:59 18:59 Intake Total 480 / 480 Balance 480 / 480 Weight 109.4 kg Intake: Oral 480 / 480 Other: # Voids 2 1 Date of Last Bowel Movement 10/25/17 10/25/17 10/25/17 Weight On Admission 104.326 kg - Constitutional mild distress, obese - Routine HEENT Exam Head: Present: normocephalic, atraumatic Eye: Present: PERRL. Absent: conjunctival icterus - Routine Neck Exam Present: trachea midline - Routine Cardiovascular Exam Present: RRR, S1, S2. Absent: murmur - Routine Abdominal Exam Present: soft, normoactive bowel sounds. Absent: tenderness, distended - Routine Extremities Exam Absent: cyanosis, edema - Routine Skin Exam Present: intact, dry. Absent: cyanosis, erythema - Routine Neurological Exam Present: alert, oriented X3, moving all extremities, vision grossly intact, normal speech. Absent: sensory deficit, motor deficit, altered mental status - Detailed Neurological Exam: Coma Scale Eye Opening: Spontaneous Verbal Response: Oriented Motor Response: Obey commands [place] Coma Scale Total: 15 - Routine Psychiatric Exam Present: normal affect <Nemesio Dasilva - Last Filed: 10/29/17 12:27> Vital signs: Vital Signs 10/29/17 20:00 10/30/17 00:00 10/30/17 04:00 Temperature 98 F 98 F 97.9 F Pulse Rate 56 L 67 50 L Respiratory Rate 20 20 20 Blood Pressure 106/53 L 105/56 L 117/55 L Pulse Oximetry 98 95 98 10/30/17 08:00 10/30/17 12:00 10/30/17 12:08 Temperature 98.1 F 97.9 F Pulse Rate 63 63 Respiratory Rate 17 18 18 Blood Pressure 108/60 105/59 L Pulse Oximetry 97 97 10/30/17 13:48 10/30/17 16:00 10/30/17 17:14 Temperature 98.2 F Pulse Rate 85 Respiratory Rate 18 19 18 Blood Pressure 104/68 Pulse Oximetry 99 Intake & Output 10/30/17 10/30/17 10/31/17 06:59 18:59 06:59 Intake Total 800 / 800 880 / 880 Output Total 0 / 0 Balance 800 / 800 880 / 880 Intake: Oral 800 / 800 880 / 880 Output: Stool 0 / 0 Other: # Voids 1 2 Date of Last Bowel Movement 10/25/17 10/25/17 <Mamadou Cerrato - Last Filed: 10/30/17 19:14> Assessment and Plan - Assessment (1) Severe headache Code(s): R51 - Headache Status: Acute (2) Hx: meningitis Code(s): Z86.61 - Personal history of infections of the central nervous system Status: Acute (3) Acute intractable headache Code(s): R51 - Headache Status: Acute Qualifiers: Headache type: unspecified Qualified Code(s): R51 - Headache - Plan Impression: 1. Patient with history of intracranial hypertension, status post lumboperitoneal shunt with subsequent peritoneal catheter laparoscopic revision. Now presents with fever, recurrent headaches. No definite sign of meningitis on the basis of initial exam, lab results, vital signs. Plan: Dr. Cerrato discussed with patient last night/ early this morning. It has been previously recommended that she proceed with a follow-up lumbar puncture within the first couple weeks after completion of her recent antibiotic treatment regimen. It is again recommended that she proceed with lumbar puncture to make certain that she does not have any indolent CSF or shunt infection. Hold antibiotics pending lumbar puncture. Pt states Dr. Cerrato was going to discuss with specials directly for LP tomorrow. <Nemesio Dasilva - Last Filed: 10/29/17 12:27> - Assessment (1) Severe headache Code(s): R51 - Headache Status: Acute (2) Hx: meningitis Code(s): Z86.61 - Personal history of infections of the central nervous system Status: Acute (3) Acute intractable headache Code(s): R51 - Headache Status: Acute Qualifiers: Headache type: unspecified Qualified Code(s): R51 - Headache - Attending Attestation The exam, history, and the medical decision-making described in the above note were completed with the assistance of the mid-level provider. I reviewed and agree with the findings presented. I attest that I had a [id number] encounter with the patient on the same day, and personally performed and documented my assessment and findings in the medical record. Patient remains awake and alert. No focal deficit Previous incision sites clean and dry Requesting pain medication for headache. She is agreeable to proceed with lumbar puncture on 10/30/2017 <Mamadou Cerrato - Last Filed: 10/30/17 19:14>
--- NOTE | 2017-10-29 17:31 | P.PNIM ---
Subjective Interval history: c/o headache and pain in eyes when she moves them Denies fevers or chills, but states she had some fevers at home. Physical Exam Vital signs: Vital Signs 10/28/17 20:00 10/28/17 20:45 10/29/17 00:00 Temperature 98.2 F 97.8 F Pulse Rate 58 L 60 57 L Respiratory Rate 20 20 Blood Pressure 102/54 L 81/43 L Pulse Oximetry 96 98 10/29/17 00:45 10/29/17 04:00 10/29/17 08:00 Temperature 97.5 F L 97.9 F Pulse Rate 67 60 Respiratory Rate 20 16 Blood Pressure 117/63 103/56 L 115/55 L Pulse Oximetry 99 99 10/29/17 11:28 10/29/17 12:00 10/29/17 13:54 Temperature 97.8 F Pulse Rate 56 L Respiratory Rate 18 17 18 Blood Pressure 105/65 Pulse Oximetry 98 10/29/17 16:00 10/29/17 16:23 Temperature 97.4 F L Pulse Rate 59 L Respiratory Rate 17 18 Blood Pressure 106/59 L Pulse Oximetry 98 Intake & Output 10/28/17 10/29/17 10/29/17 18:59 06:59 18:59 Intake Total 480 / 480 Balance 480 / 480 Weight 109.4 kg Intake: Oral 480 / 480 Other: # Voids 2 1 Date of Last Bowel Movement 10/25/17 10/25/17 10/25/17 Weight On Admission 104.326 kg - Constitutional moderate distress Comments: Moderate distress due to pain - Routine HEENT Exam Head: Present: normocephalic, atraumatic Eye: Present: EOMI, PERRL, normal accommodation ENT: Present: mucous membranes moist - Routine Neck Exam Present: supple - Routine Respiratory Exam Present: CTA bilaterally - Routine Cardiovascular Exam Present: RRR, S1, S2 - Routine Abdominal Exam Present: soft, normoactive bowel sounds - Routine Skin Exam Present: intact - Routine Neurological Exam Present: alert, oriented X3, CN II-XII intact - Detailed Neurological Exam: Coma Scale Verbal Response: Oriented Motor Response: Obey commands - Routine Psychiatric Exam Present: normal affect Results - Labs CBC & Chem 7: 10/28/17 08:27 10/28/17 08:27 Microbiology 10/28/17 11:56 Clean Catch Urine Urine Culture - Final 50-100,000 cfu/mL mixed krishna (probable contaminants ) 10/28/17 20:45 Blood - Peripheral Aerobic Blood Culture - Preliminary No growth in 1 day 10/28/17 20:45 Blood - Peripheral Anaerobic Blood Culture - Preliminary No growth in 1 day 10/28/17 20:40 Blood - Peripheral Aerobic Blood Culture - Preliminary No growth in 1 day 10/28/17 20:40 Blood - Peripheral Anaerobic Blood Culture - Preliminary No growth in 1 day 10/27/17 22:38 Blood - Peripheral Aerobic Blood Culture - Preliminary No growth in 2 days 10/27/17 22:38 Blood - Peripheral Anaerobic Blood Culture - Preliminary No growth in 2 days 10/27/17 22:33 Blood - Peripheral Aerobic Blood Culture - Preliminary No growth in 2 days 10/27/17 22:33 Blood - Peripheral Anaerobic Blood Culture - Preliminary No growth in 2 days - Imaging ITS Impressions Chest X-Ray 10/27/17 21:29 CONCLUSION: Mild commentated cardiomegaly without infiltrate or failure. Head CT 10/28/17 00:00 CONCLUSION: 1. Negative noncontrast CT brain, unchanged from 10/05/2017. Assessment and Plan - Assessment (1) Severe headache Code(s): R51 - Headache Status: Acute (2) Hx: meningitis Code(s): Z86.61 - Personal history of infections of the central nervous system Status: Acute - Plan Patient is a 32-year-old female with primary medical history of chronic headaches, pseudotumors cerebri who initially came to the hospital for complaints of. Severe headache and neck pain 2 days. R/O Meningitis Severe headache, reports fevers and chills at home History of meningitis History of pseudotumor cerebri Chronic headaches -Rule out meningitis, afebrile on admission, WBC within normal -Plan for LP was not done on admission as patient refused. Discussed with patient extensively that refusal of necessary diagnostic testing and other medical advice is detrimental to her well-being. Patient states that she does not agree with the LP earlier because she thought that she will not get her Ativan and she is very particular on the physician who is doing the LP that it might hit her tube for her shunt. Also patient states that she wanted to see the physician first before deciding on doing the LP or not. Discussed extensively that all of this diagnostic orders are being done for medical decision-making and any delays may delay treatment. Also discussed with patient that if abx is started on her, may affect the results of the lumbar punctures since she was not able to do it prior to starting antibiotic. -Neurosurgery consulted appreciate recommendation -Continue pain management for now. Continue Topamax -On exam patient has no neck stiffness, able to move neck without difficulty , afebrile. Plan for blood cultures for now. Will not start patient on antibiotics since there is no white count, afebrile. -If patient becomes febrile will start antibiotic treatment ceftriaxone. Patient previously treated with IV Rocephin as per ID recommendations. Previous CSF result from prior admission was negative -10/29 Dc morphine IV and start on IV Dilaudid for breakthrough pain. Plan is LP tomorrow. No fevers or white count. Continue to monitor for signs of infection. Nausea, vomiting Vertigo -Continue meclizine, Zofran DVT prop SCDs
[2017-10-29] MEDS: HYDROmorphone PF Inj 2 MG/ML Vial IV.PUSH PRN (21:54)
[2017-10-30] MEDS: HYDROmorphone PF Inj 2 MG/ML Vial IV.PUSH PRN ×6 (02:14→22:34)
[2017-10-30] MEDS: Topiramate 100 MG Tablet PO SCH ×2 (10:40→21:38)
[2017-10-30] MEDS: Methocarbamol 500 MG Tablet PO SCH ×4 (10:40→21:39)
--- NOTE | 2017-10-30 10:47 | IR ---
EXAM DATE: 10/30/2017 10:40 AM EDT AGE/SEX: 32 years / Female INDICATIONS: Patient presents with chronic headaches in need of lumbar puncture with opening pressur es to rule out meningitis. CLINICAL DATA: This is the patient's subsequent encounter. Patient reports that signs and symptoms h ave been present for 2 days and indicates a pain score of 7/10. MEDICAL/SURGICAL HISTORY: . Chronic headachesPseudotumor cerebri . Lumboperitoneal shunt COMPARISON: [facility], LUMBAR PUNCTURE W/OPENING PRESSURES, 10/08/2017. . FLUORO TIME (min): 0.2 IMAGE SERIES: 2 ACCESS SITE: L3-4 LUMBAR PUNCTURE TIME: 09:50 hours FLUID: Total volume of 8.5 cc of MEDICATION(S): 2 mg lorazepam (Ativan) IV . . PROCEDURE: 1. Fluoroscopic guided lumbar puncture. The risks, benefits and alternatives to the procedure were explained and verbal and written consent w as obtained. The site was prepped in sterile fashion. Full sterile technique was used, including ca p, mask, sterile gloves and gown and a large sterile sheet. Hand hygiene and 2% chlorhexidine and/or betadine/alcohol prep was utilized per protocol for cutaneous antisepsis. The skin and subcutaneous tissues were infiltrated with local anesthetic solution. With fluoroscopic guidance the lumbar thecal sac was punctured at the level above. The fluid describ ed above was removed without difficulty. The patient tolerated the procedure well and there were no complications. CONCLUSION: 1. Uncomplicated fluoroscopically guided lumbar puncture. Electronically signed by: Josue Vargas MD 10/30/2017 10:46 AM EDT
[2017-10-30] MEDS: FLUoxetine 10 MG Capsule PO SCH (11:49)
[2017-10-30 12:01] LABS: Lymphocytes, CSF 84 %; Monocytes,CSF 14 %; Neutrophils,CSF 2 %; RBC on Tube 1 0 /mm3; RBC on Tube 4 18 /mm3
--- NOTE | 2017-10-30 16:42 | P.PNIM ---
Subjective Interval history: states headache is better. Denies fevers or chills. sp LP today Physical Exam Vital signs: Vital Signs 10/29/17 20:00 10/30/17 00:00 10/30/17 04:00 Temperature 98 F 98 F 97.9 F Pulse Rate 56 L 67 50 L Respiratory Rate 20 20 20 Blood Pressure 106/53 L 105/56 L 117/55 L Pulse Oximetry 98 95 98 10/30/17 08:00 10/30/17 12:00 10/30/17 12:08 Temperature 98.1 F 97.9 F Pulse Rate 63 63 Respiratory Rate 17 18 18 Blood Pressure 108/60 105/59 L Pulse Oximetry 97 97 10/30/17 13:48 Temperature Pulse Rate Respiratory Rate 18 Blood Pressure Pulse Oximetry Intake & Output 10/29/17 10/30/17 10/30/17 18:59 06:59 18:59 Intake Total 1020 / 1020 800 / 800 Balance 1020 / 1020 800 / 800 Intake: Oral 1020 / 1020 800 / 800 Other: # Voids 2 1 Date of Last Bowel Movement 10/25/17 10/25/17 10/25/17 # Bowel Movements 0 Narrative: - Constitutional nad - Routine HEENT Exam Head: Present: normocephalic, atraumatic Eye: Present: EOMI, PERRL, normal accommodation ENT: Present: mucous membranes moist - Routine Neck Exam Present: supple - Routine Respiratory Exam Present: CTA bilaterally - Routine Cardiovascular Exam Present: RRR, S1, S2 - Routine Abdominal Exam Present: soft, normoactive bowel sounds - Routine Skin Exam Present: intact - Routine Neurological Exam Present: alert, oriented X3, CN II-XII intact - Detailed Neurological Exam: Coma Scale Verbal Response: Oriented Motor Response: Obey commands - Routine Psychiatric Exam Present: normal affect Results - Labs CBC & Chem 7: 10/28/17 08:27 10/28/17 08:27 Laboratory Results - last 24 hr 10/30/17 10/30/17 09:50 09:50 CSF Volume (1) 1.8 CSF Supernat Color (1) Clear CSF Gross Blood (1) 0 CSF WBC (1) 273 H CSF RBC (1) 0 CSF Volume (2) 2.0 CSF Supernat Color (2) Clear CSF Gross Blood (2) 0 CSF Volume (3) 1.8 CSF Supernat Color (3) Clear CSF Gross Blood (3) 0 CSF Volume (4) 2.4 CSF Supernat Color (4) Clear CSF Gross Blood (4) 0 CSF WBC (4) 147 H CSF RBC (4) 18 H CSF Neutrophils % 2 CSF Lymphocytes % 84 CSF Monocytes % 14 CSF Glucose 53 Microbiology 10/30/17 09:50 Cerebral Spinal Fluid - Lumbar Puncture Fungal Smear - Final No fungal elements seen 10/30/17 09:50 Lumbar Puncture Gram Stain - Final 10/28/17 20:45 Blood - Peripheral Aerobic Blood Culture - Preliminary No growth in 2 days 10/28/17 20:45 Blood - Peripheral Anaerobic Blood Culture - Preliminary No growth in 2 days 10/28/17 20:40 Blood - Peripheral Aerobic Blood Culture - Preliminary No growth in 2 days 10/28/17 20:40 Blood - Peripheral Anaerobic Blood Culture - Preliminary No growth in 2 days 10/27/17 22:38 Blood - Peripheral Aerobic Blood Culture - Preliminary No growth in 3 days 10/27/17 22:38 Blood - Peripheral Anaerobic Blood Culture - Preliminary No growth in 3 days 10/27/17 22:33 Blood - Peripheral Aerobic Blood Culture - Preliminary No growth in 3 days 10/27/17 22:33 Blood - Peripheral Anaerobic Blood Culture - Preliminary No growth in 3 days 10/28/17 11:56 Clean Catch Urine Urine Culture - Final 50-100,000 cfu/mL mixed krishna (probable contaminants ) - Imaging Impressions Lumbar Puncture Fluoroscopy 10/30/17 01:13 CONCLUSION: 1. Uncomplicated fluoroscopically guided lumbar puncture. Assessment and Plan - Assessment (1) Severe headache Code(s): R51 - Headache Status: Acute (2) Hx: meningitis Code(s): Z86.61 - Personal history of infections of the central nervous system Status: Acute - Plan Patient is a 32-year-old female with primary medical history of chronic headaches, pseudotumors cerebri who initially came to the hospital for complaints of. Severe headache and neck pain 2 days. R/O Meningitis Severe headache, reports fevers and chills at home History of meningitis History of pseudotumor cerebri Chronic headaches -Rule out meningitis, afebrile on admission, WBC within normal -Plan for LP was not done on admission as patient refused. Discussed with patient extensively that refusal of necessary diagnostic testing and other medical advice is detrimental to her well-being. Patient states that she does not agree with the LP earlier because she thought that she will not get her Ativan and she is very particular on the physician who is doing the LP that it might hit her tube for her shunt. Also patient states that she wanted to see the physician first before deciding on doing the LP or not. Discussed extensively that all of this diagnostic orders are being done for medical decision-making and any delays may delay treatment. Also discussed with patient that if abx is started on her, may affect the results of the lumbar punctures since she was not able to do it prior to starting antibiotic. -Neurosurgery consulted appreciate recommendation -Continue pain management for now. Continue Topamax -On exam patient has no neck stiffness, able to move neck without difficulty , afebrile. Plan for blood cultures for now. Will not start patient on antibiotics since there is no white count, afebrile. -If patient becomes febrile will start antibiotic treatment ceftriaxone. Patient previously treated with IV Rocephin as per ID recommendations. Previous CSF result from prior admission was negative -10/29 Dc morphine IV and start on IV Dilaudid for breakthrough pain. Plan is LP tomorrow. No fevers or white count. Continue to monitor for signs of infection. - 10/30 the patient status post LP, CSF with mild elevated WBC at 273 with a lymphocytosis.? Aseptic meningitis. Will consult ID. Follow up neurosurgery recommendations. Will discontinue IV Dilaudid and place on oral Dilaudid. Follow-up CSF studies. Blood cultures negative to date. Nausea, vomiting Vertigo -Continue meclizine, Zofran -resolved. DVT prop SCDs Discharge Planning: DC pending ID consultation and neurosurgery clearance. Patient still with headache requiring Dilaudid administration.
--- NOTE | 2017-10-30 17:37 | P.PNNS ---
Subjective Interval history: 10/28: 32-year-old female with history of idiopathic intracranial hypertension. Underwent an initial lumboperitoneal shunt placement 08/12/2017. Postoperative course complicated by significant abdominal pain primarily at the right subcostal margin postoperative. She underwent a laparoscopic revision of the peritoneal catheter on 09/19/2017, with the catheter removed to the left side. She had intermittent headaches, with some nausea and vomiting intermittent following the catheter replacement. She was eventually discharged but soon readmitted with complaint of persistent headaches and some neck stiffness as well as a passing out episode. She underwent a lumbar puncture on 10/08/2017 with no growth on CSF and negative bacteria on Gram stain but WBCs increased to 120 with 35 RBC. She was seen by infectious disease and started on an initial course of cefepime and vancomycin. She completed a subsequent course of IV Rocephin on 10/16/2017. She came back to the emergency room on 10/25/2017 complaining of headache. She was noted to be afebrile with white count 10.9. She was given morphine and Zofran for symptomatic relief of the headache. She returns back to the emergency room on 10/27/2017 with complaint of persistent headaches and fever. Patient afebrile in the emergency room. 10/28/2017 WBC 8.2. She states that for the past 3 days or so she has had significant increased headaches, pressure feeling in her eyes, neck discomfort, some nausea. She denies any significant abdominal discomfort. She states that prior to the past 3 days, she was feeling quite a bit better, improvement in her headaches and vision overall and was ambulating better. She states she had a fever of 103 in the past couple of days. 10/29: Pt resting in bed complaining of headache. She states her eyes hurt to move them. No fever or chills. 10/30: Physical Exam Vital signs: Vital Signs 10/29/17 20:00 10/30/17 00:00 10/30/17 04:00 Temperature 98 F 98 F 97.9 F Pulse Rate 56 L 67 50 L Respiratory Rate 20 20 20 Blood Pressure 106/53 L 105/56 L 117/55 L Pulse Oximetry 98 95 98 10/30/17 08:00 10/30/17 12:00 10/30/17 12:08 Temperature 98.1 F 97.9 F Pulse Rate 63 63 Respiratory Rate 17 18 18 Blood Pressure 108/60 105/59 L Pulse Oximetry 97 97 10/30/17 13:48 10/30/17 16:00 10/30/17 17:14 Temperature 98.2 F Pulse Rate 85 Respiratory Rate 19 18 Blood Pressure 104/68 Pulse Oximetry 99 Intake & Output 10/29/17 10/30/17 10/30/17 18:59 06:59 18:59 Intake Total 1020 / 1020 800 / 800 Balance 1020 / 1020 800 / 800 Intake: Oral 1020 / 1020 800 / 800 Other: # Voids 2 1 Date of Last Bowel Movement 10/25/17 10/25/17 10/25/17 # Bowel Movements 0 Narrative: GENERAL: HEENT: GASTROINTESTINAL: MUSCULOSKELETAL: NEUROLOGICAL: Assessment and Plan - Assessment (1) Severe headache Code(s): R51 - Headache Status: Acute (2) Hx: meningitis Code(s): Z86.61 - Personal history of infections of the central nervous system Status: Acute (3) Acute intractable headache Code(s): R51 - Headache Status: Acute Qualifiers: Headache type: unspecified Qualified Code(s): R51 - Headache - Plan Impression: 1. Patient with history of intracranial hypertension, status post lumboperitoneal shunt with subsequent peritoneal catheter laparoscopic revision. Now presents with fever, recurrent headaches. No definite sign of meningitis on the basis of initial exam, lab results, vital signs. Plan: Dr. Cerrato discussed with patient last night/ early this morning. It has been previously recommended that she proceed with a follow-up lumbar puncture within the first couple weeks after completion of her recent antibiotic treatment regimen. It is again recommended that she proceed with lumbar puncture to make certain that she does not have any indolent CSF or shunt infection. Hold antibiotics pending lumbar puncture. Pt states Dr. Cerrato was going to discuss with specials directly for LP tomorrow.
[2017-10-30] MEDS: Polyethylene Glycol 3350 17 GM Packet PO SCH (18:17)
--- NOTE | 2017-10-30 19:39 | P.PNNS ---
Subjective Interval history: Complains of moderate persistent headache. States she had some nausea last evening with oral pain medications. No complaint of significant abdominal pain. No fever or chills States her vision continues to be improved following the most recent shunt surgery Physical Exam Vital signs: Vital Signs 10/29/17 20:00 10/30/17 00:00 10/30/17 04:00 Temperature 98 F 98 F 97.9 F Pulse Rate 56 L 67 50 L Respiratory Rate 20 20 20 Blood Pressure 106/53 L 105/56 L 117/55 L Pulse Oximetry 98 95 98 10/30/17 08:00 10/30/17 12:00 10/30/17 12:08 Temperature 98.1 F 97.9 F Pulse Rate 63 63 Respiratory Rate 17 18 18 Blood Pressure 108/60 105/59 L Pulse Oximetry 97 97 10/30/17 13:48 10/30/17 16:00 10/30/17 17:14 Temperature 98.2 F Pulse Rate 85 Respiratory Rate 18 19 18 Blood Pressure 104/68 Pulse Oximetry 99 Intake & Output 10/30/17 10/30/17 10/31/17 06:59 18:59 06:59 Intake Total 800 / 800 880 / 880 Output Total 0 / 0 Balance 800 / 800 880 / 880 Intake: Oral 800 / 800 880 / 880 Output: Stool 0 / 0 Other: # Voids 1 2 Date of Last Bowel Movement 10/25/17 10/25/17 Narrative: Awake and alert Conversant Speech clear Abdomen soft Moves all extremities spontaneous with good strength. No nuchal rigidity Assessment and Plan - Assessment (1) Severe headache Code(s): R51 - Headache Status: Acute (2) Hx: meningitis Code(s): Z86.61 - Personal history of infections of the central nervous system Status: Acute (3) Acute intractable headache Code(s): R51 - Headache Status: Acute Qualifiers: Headache type: unspecified Qualified Code(s): R51 - Headache - Plan Impression: 1. Initial CSF with persistent increased WBCs, negative Gram stain-similar to most recent prior CSF study. Plan: Await final cultures
[2017-10-31] MEDS: HYDROmorphone PF Inj 2 MG/ML Vial IV.PUSH PRN ×5 (04:51→21:13)
[2017-10-31] MEDS: Methocarbamol 500 MG Tablet PO SCH ×4 (08:59→20:28)
[2017-10-31] MEDS: FLUoxetine 10 MG Capsule PO SCH (09:00)
[2017-10-31] MEDS: Topiramate 100 MG Tablet PO SCH ×2 (09:00→20:28)
[2017-10-31] MEDS: Polyethylene Glycol 3350 17 GM Packet PO SCH (09:00)
--- NOTE | 2017-10-31 09:58 | P.CONID ---
History of Present Illness Service: Infectious disease Consult date: 10/31/17 Requesting Physician: Adam Hickey Primary Care Provider: UNKNOWN Family Provider: UNKNOWN Chief Complaint: Severe headache History of Present Illness: Patient seen and examined. Records reviewed. Patient is a 32-year-old female, with history of chronic headaches and pseudotumor cerebri, admitted to the hospital for evaluation of worsening headache. Patient had undergone a lumboperitoneal shunt August 12, 2017, and she underwent revision September 19, 2017. She was admitted to the hospital October 05 for headache, and was worked up. She had undergone multiple imaging studies including brain MRI, MRI of her whole spine, as well as CT of the abdomen and pelvis. There was no abnormality seen in and around her shunt. Lumbar puncture at that time showed 120 WBC, 35 RBC, with 31 neutrophils and 48 lymphocytes. Viral cultures and HSV all came back negative. The CSF culture came back negative, but apparently the patient had been on antibiotics for about 3 days before she had a lumbar puncture done. Patient was treated for partially treated bacterial meningitis, and received a course of IV vancomycin and IV Rocephin. She was discharged October 17 and she felt better. On October 25 there was an ED visit for severe headache, and she was discharged. She came back to the hospital this time because of worsening headache. She has had some complaints of some neck pain, and states that she has had fevers at home and felt very tired. She has had some occasional nausea and vomiting. She denies any upper respiratory symptoms. She has noted some decrease in her urination but denies any dysuria. Since admission she has had normal temperature. Her WBC is normal. Lumbar puncture was done and it showed 147 WBC 2 neutrophils 84 lymphocytes 14 monocytes and 18 RBC. She has not been on any antibiotics. She still has headaches and neck pain but does not seem to be worsening. Infectious disease consultation has been requested to evaluate patient for question meningitis. Review of Systems Constitutional: Denies chills, Denies fever(s), Denies headache(s) Eyes: Denies discharge, Denies dry eyes Ears, Nose, Mouth, and Throat: Reports dizziness, Reports headache(s), Denies difficulty swallowing, Denies ear pain, Denies facial pain, Denies nasal discharge, Denies sore throat Cardiovascular: Denies chest pain, Denies shortness of breath Respiratory: Denies cough, Denies shortness of breath Gastrointestinal: Reports nausea, Reports vomiting, Denies abdominal pain, Denies loose stools, Denies pain with swallowing Genitourinary: Denies painful urination Musculoskeletal: Reports neck pain Skin/Breast: Denies rash Neurologic: Reports headache(s), Denies lack of coordination, Denies localized weakness Psychiatric: Reports anxiety PMFSH - History History Provided By: Patient - Medical History Medical History: Medical History (Last Reviewed 10/31/17 @ 09:51 by Dulce Maria Magaña MD) delivery delivered Hx of headache Lumbar puncture headache Presence of lumboperitoneal shunt - Surgical History Surgical History: Surgical History (Last Reviewed 10/31/17 @ 09:51 by Dulce Maria Magaña MD) History of renal stent Status post lumboperitoneal shunt placement - Tobacco History Second Hand Smoke Exposure: Yes Tobacco Use In Past 30 Days: Yes Smoking Status: Current some day smoker Tobacco Type: Cigarettes (Few cigarettes occasionally.) - Alcohol History How Often Do You Have a Drink Containing Alcohol: Never - Substance Use History Substance History: No History of Abuse - Travel History Recent Travel in the [facility] Within the Last 8 Weeks: No Recent Travel Out of the Country Within the Last 8 Weeks: No - Immunization History Tetanus Immunization: >5 Years Hx Influenza Vaccine This Season: No Medications and Allergies Active Medications: Active Medications Hydrocodone Bitart/Acetaminophen ([place] 5/325) 1 tab PO Q4H PRN PRN Reason: PAIN SCALE 3 TO 5 Hydrocodone Bitart/Acetaminophen ([place] 7.5/325) 1 tab PO Q4H PRN PRN Reason: PAIN SCALE 6 TO 10 Last Admin: 10/30/17 15:59 Dose: 1 tab Fluoxetine HCl (Prozac) 10 mg PO DAILY [facility] Last Admin: 10/31/17 09:00 Dose: 10 mg Hydromorphone HCl (Dilaudid) 2 mg PO Q4H PRN PRN Reason: BREAKTHROUGH PAIN Hydromorphone HCl (Dilaudid Pf Inj) 0.2 mg IV.PUSH Q4H PRN PRN Reason: SEE LABEL COMMENTS Last Admin: 10/31/17 09:00 Dose: 0.2 mg Sodium Chloride (Ns Inj) 1,000 mls @ 0 mls/hr IV.SIG .Q0M [facility] Last Infusion: 10/28/17 06:09 Dose: Infused Sodium Chloride (Ns Inj) 1,000 mls @ 0 mls/hr IV.SIG .Q0M [facility] Last Infusion: 10/28/17 06:09 Dose: Infused Lactulose (Lactulose Liq) 30 ml PO DAILY PRN PRN Reason: SEVERE CONSITIPATION Last Admin: 10/30/17 18:16 Dose: 30 ml Methocarbamol (Robaxin) 750 mg PO QID [facility] Last Admin: 10/31/17 08:59 Dose: 750 mg Naloxone HCl (Narcan Inj) 0.4 mg IV.PUSH UNSCH PRN PRN Reason: SEE LABEL COMMENTS Polyethylene Glycol (Miralax) 17 gm PO DAILY [facility] Last Admin: 10/31/17 09:00 Dose: 17 gm Topiramate (Topamax) 100 mg PO BID [facility] Last Admin: 10/31/17 09:00 Dose: 100 mg Allergies Allergy/AdvReac Type Severity Reaction Status Date / Time amoxicillin Allergy Severe Anaphylaxis Verified 10/27/17 20:58 ketorolac Allergy Severe Anaphylaxis Verified 10/27/17 20:58 Sulfa (Sulfonamide Allergy Severe RASH Verified 10/27/17 20:58 Antibiotics) ibuprofen Allergy Intermediate HIVES, Verified 10/27/17 20:58 FACIAL SWELLING. tramadol Allergy Intermediate HIVES Verified 10/27/17 20:58 latex Allergy Unknown Hives Verified 10/27/17 20:58 penicillin G Allergy Unknown HIVES Verified 10/27/17 20:58 prochlorperazine Allergy Unknown HIVES Verified 10/27/17 20:58 sumatriptan AdvReac Severe VOMITING Verified 10/27/17 20:58 PASSED OUT Home Medications Medication Instructions Recorded Confirmed Type fluoxetine [Prozac] 10 mg PO DAILY 10/27/17 10/27/17 History methocarbamol [Robaxin-750] 750 mg PO QID 10/27/17 10/27/17 History topiramate [Topamax] 100 mg PO BID 10/27/17 10/27/17 History meclizine 25 mg PO BID PRN 10/28/17 10/28/17 History Exam Vital signs: Vital Signs 10/30/17 12:00 10/30/17 12:08 10/30/17 13:48 Temperature 97.9 F Pulse Rate 63 Respiratory Rate 18 18 Blood Pressure 105/59 L Pulse Oximetry 97 10/30/17 16:00 07/05/18 17:14 10/30/17 20:00 Temperature 98.2 F 98.2 F Pulse Rate 85 70 Respiratory Rate 19 18 22 Blood Pressure 104/68 102/54 L Pulse Oximetry 99 96 10/30/17 21:40 10/31/17 00:00 10/31/17 04:00 Temperature 97.8 F 97.7 F Pulse Rate 64 61 Respiratory Rate 20 20 20 Blood Pressure 102/63 123/63 Pulse Oximetry 95 97 10/31/17 08:00 Temperature 97.9 F Pulse Rate 72 Respiratory Rate 16 Blood Pressure 113/70 Pulse Oximetry 100 Intake & Output 10/30/17 10/31/17 10/31/17 18:59 06:59 18:59 Intake Total 880 / 880 540 / 540 Output Total 0 / 0 Balance 880 / 880 540 / 540 Weight 109.6 kg Intake: Oral 880 / 880 540 / 540 Output: Stool 0 / 0 Other: # Voids 2 2 Date of Last Bowel Movement 10/25/17 10/25/17 # Bowel Movements 0 Narrative: Physical Examination GENERAL: Patient is a well-nourished, well-developed female, awake and alert , not in respiratory distress. SKIN: Cool and dry. No generalized rash, no ecchymoses and no evidence of embolic lesions. HEAD: Atraumatic. Normocephalic. No temporal wasting, or tenderness. EYES: [place] conjunctiva. No petechia or hemorrhage. Pupils equal, round and reactive to light. Extraocular movements full and intact. No scleral icterus. No injection or drainage. EARS, NOSE AND THROAT: Nose without bleeding or purulent nasal discharge. No sinus tenderness. Mucous membranes pink and moist. No oral lesions noted. No exudate. No oral thrush. NECK: Trachea midline. Supple and not tender, no meningeal signs. No nuchal rigidity. Tender on palpation of her neck, but no obvious swelling or redness CARDIOVASCULAR: Regular rate and rhythm. No murmurs, rubs or gallops heard RESPIRATORY: Clear to auscultation. Breath sounds equal bilaterally. No rales , wheezing or rhonchi ABDOMEN: Soft, non-tender, nondistended. Bowel sounds present and normoactive. No guarding. No rebound. No organomegaly. Healed incision on L side of abdomen BACK: Healed incision in lower spine, with no swelling, induration, or redness EXTREMITIES: No clubbing, cyanosis, or edema.No joint effusion, has good ROM. No calf tenderness. Well perfused and warm. NEUROLOGICAL: Awake and alert. Cranial nerves grossly intact. Motor grossly within normal limits. PSYCHIATRIC: Normal affect, calm and cooperative. LINE: No evidence of infection Results - Labs CBC & Chem 7: 10/28/17 08:27 10/28/17 08:27 Labs: Laboratory Results - last 24 hr 10/30/17 10/30/17 09:50 09:50 CSF Volume (1) 1.8 CSF Supernat Color (1) Clear CSF Gross Blood (1) 0 CSF WBC (1) 273 H CSF RBC (1) 0 CSF Volume (2) 2.0 CSF Supernat Color (2) Clear CSF Gross Blood (2) 0 CSF Volume (3) 1.8 CSF Supernat Color (3) Clear CSF Gross Blood (3) 0 CSF Volume (4) 2.4 CSF Supernat Color (4) Clear CSF Gross Blood (4) 0 CSF WBC (4) 147 H CSF RBC (4) 18 H CSF Neutrophils % 2 CSF Lymphocytes % 84 CSF Monocytes % 14 CSF Glucose 53 - Imaging Impressions Lumbar Puncture Fluoroscopy 10/30/17 01:13 CONCLUSION: 1. Uncomplicated fluoroscopically guided lumbar puncture. Assessment and Plan - Plan Impression Headaches, patient with chronic DELCID, has been worsening intermittently - clinically not findings of meningitis, no nuchal rigidity on exam - still with CSF pleocytosis, now more lymphocytic, ?LP shunt problem/ infection - previous imaging studies did not show any abnormality around the cath site; she was treated for bacterial meningitis during her last admission - no fever in hospital (though she claims fever at home), WBC is normal Hx pseudotumor cerebri S/P lumboperitoneal shunt July 2017, revision August 2017 Allergy to PCN, has tolerated Rocephin Recommendation Follow C/S Continue to monitor off Abx Monitor progress Rx DELCID Thank you for this consultation
--- NOTE | 2017-10-31 12:05 | P.PNNS ---
Subjective Interval history: 10/28: 32-year-old female with history of idiopathic intracranial hypertension. Underwent an initial lumboperitoneal shunt placement 08/12/2017. Postoperative course complicated by significant abdominal pain primarily at the right subcostal margin postoperative. She underwent a laparoscopic revision of the peritoneal catheter on 09/19/2017, with the catheter removed to the left side. She had intermittent headaches, with some nausea and vomiting intermittent following the catheter replacement. She was eventually discharged but soon readmitted with complaint of persistent headaches and some neck stiffness as well as a passing out episode. She underwent a lumbar puncture on 10/08/2017 with no growth on CSF and negative bacteria on Gram stain but WBCs increased to 120 with 35 RBC. She was seen by infectious disease and started on an initial course of cefepime and vancomycin. She completed a subsequent course of IV Rocephin on 10/16/2017. She came back to the emergency room on 10/25/2017 complaining of headache. She was noted to be afebrile with white count 10.9. She was given morphine and Zofran for symptomatic relief of the headache. She returns back to the emergency room on 10/27/2017 with complaint of persistent headaches and fever. Patient afebrile in the emergency room. 10/28/2017 WBC 8.2. She states that for the past 3 days or so she has had significant increased headaches, pressure feeling in her eyes, neck discomfort, some nausea. She denies any significant abdominal discomfort. She states that prior to the past 3 days, she was feeling quite a bit better, improvement in her headaches and vision overall and was ambulating better. She states she had a fever of 103 in the past couple of days. 10/29: Pt resting in bed complaining of headache. She states her eyes hurt to move them. No fever or chills. 10/30: Complains of moderate persistent headache. States she had some nausea last evening with oral pain medications. No complaint of significant abdominal pain. No fever or chills States her vision continues to be improved following the most recent shunt surgery 10/31: This morning when seen the patient was just finishing talking on her cellphone. She stated she was "good." She says she is tired of being in the hospital. When asked how her headache is she replies "crappy" and gives it an 8 out of 10. She also complains that she doesn't have her Antivert for her dizziness which she is on at home. She spontaneously moved her extremities and followed commands but had decreased motor strength on the left. <Chandrakant Yeung E - Last Filed: 10/31/17 11:28> Physical Exam Vital signs: Vital Signs 10/30/17 12:00 10/30/17 12:08 10/30/17 13:48 Temperature 97.9 F Pulse Rate 63 Respiratory Rate 18 18 18 Blood Pressure 105/59 L Pulse Oximetry 97 10/30/17 16:00 10/30/17 17:14 10/30/17 20:00 Temperature 98.2 F 98.2 F Pulse Rate 85 70 Respiratory Rate 19 18 22 Blood Pressure 104/68 102/54 L Pulse Oximetry 99 96 10/30/17 21:40 10/31/17 00:00 10/31/17 04:00 Temperature 97.8 F 97.7 F Pulse Rate 64 61 Respiratory Rate 20 20 20 Blood Pressure 102/63 123/63 Pulse Oximetry 95 97 10/31/17 08:00 Temperature 97.9 F Pulse Rate 72 Respiratory Rate 16 Blood Pressure 113/70 Pulse Oximetry 100 Intake & Output 10/30/17 10/31/17 10/31/17 18:59 06:59 18:59 Intake Total 880 / 880 540 / 540 Output Total 0 / 0 Balance 880 / 880 540 / 540 Weight 109.6 kg Intake: Oral 880 / 880 540 / 540 Output: Stool 0 / 0 Other: # Voids 2 2 Date of Last Bowel Movement 10/25/17 10/25/17 # Bowel Movements 0 Narrative: GENERAL: Awake & on cellphone when seen. Affect flat but readily interacts. No apparent distress. HEENT: Normocephalic, atraumatic. PERRLA 3 mm brisk, EOMI. MMM & pink, tongue midline to protrusion, no oropharyngeal erythema. NECK: Midline cervical spine TTP. No nuchal rigidity. Neck supple. No JVD. Trachea midline. GASTROINTESTINAL: Multiple surgical puncture & incision sites well healed w/o complication, abdomen NTTP. MUSCULOSKELETAL: HOUSE spontaneously & purposefully. Lumbar spine surgical incision well healed w/o complication, NTTP. NEUROLOGICAL: AAOx3. Speech clear & appropriate. Follows simple commands w/o difficulty. Sensation intact to lower extremities. HOUSE spontaneously & purposefully. Upon testing left side weaker than right for motor testing, which may be r/t patient's lack of participation. <Chandrakant Yeung E - Last Filed: 10/31/17 11:28> Assessment and Plan - Assessment (1) Severe headache Code(s): R51 - Headache Status: Acute (2) Hx: meningitis Code(s): Z86.61 - Personal history of infections of the central nervous system Status: Acute (3) Acute intractable headache Code(s): R51 - Headache Status: Acute Qualifiers: Headache type: unspecified Qualified Code(s): R51 - Headache - Plan Impression: 1. Initial CSF with persistent increased WBCs, negative Gram stain-similar to most recent prior CSF study. Patient still w/headache. Decreased left side muscle strength which is felt to be r/t lack of participation. Past 24 hrs: Afebrile. No labs for today. CSF () Gram stain w/many WBCs but no organisms seen on final ; culture w/no growth x24 hrs, preliminary. CSF () fungal stain w/no fungal elements seen on final ; culture pending. Blood cultures x2 () w/no growth x3 days, preliminary. Urine culture () w/50-100,000 CFU/mL mixed krishna, probable contaminants, final . Blood cultures x2 () w/no growth x4 days, preliminary. Plan: Await final cultures. No abx at present per ID. Appreciate ID's input. Meclizine 25 mg PO BID PRN dizziness. <Chandrakant Yeung E - Last Filed: 10/31/17 11:28> - Assessment (1) Severe headache Code(s): R51 - Headache Status: Acute (2) Hx: meningitis Code(s): Z86.61 - Personal history of infections of the central nervous system Status: Acute (3) Acute intractable headache Code(s): R51 - Headache Status: Acute Qualifiers: Headache type: unspecified Qualified Code(s): R51 - Headache - Attending Attestation The exam, history, and the medical decision-making described in the above note were completed with the assistance of the mid-level provider. I reviewed and agree with the findings presented. I attest that I had a [id number] encounter with the patient on the same day, and personally performed and documented my assessment and findings in the medical record. <Mamadou Cerrato - Last Filed: 12/29/17 21:23>
--- NOTE | 2017-10-31 16:27 | P.PNIM ---
Subjective Interval history: Reports still with headache. Reports light makes the headaches worse. Physical Exam Vital signs: Vital Signs 10/30/17 17:14 10/30/17 20:00 10/30/17 21:40 Temperature 98.2 F Pulse Rate 70 Respiratory Rate 18 22 20 Blood Pressure 102/54 L Pulse Oximetry 96 10/31/17 00:00 10/31/17 04:00 10/31/17 08:00 Temperature 97.8 F 97.7 F 97.9 F Pulse Rate 64 61 72 Respiratory Rate 20 20 16 Blood Pressure 102/63 123/63 113/70 Pulse Oximetry 95 97 100 10/31/17 12:00 Temperature 98.6 F Pulse Rate 71 Respiratory Rate 16 Blood Pressure 138/69 Pulse Oximetry 98 Intake & Output 10/30/17 10/31/17 10/31/17 18:59 06:59 18:59 Intake Total 880 / 880 540 / 540 Output Total 0 / 0 Balance 880 / 880 540 / 540 Weight 109.6 kg Intake: Oral 880 / 880 540 / 540 Output: Stool 0 / 0 Other: # Voids 2 2 Date of Last Bowel Movement 10/25/17 10/25/17 10/25/17 # Bowel Movements 0 Narrative: GENERAL: This is a well-nourished, well-developed patient, in no apparent distress. NECK: Full range of motion CARDIOVASCULAR: Regular rate and rhythm without murmurs, gallops, or rubs. RESPIRATORY: Clear to auscultation. Breath sounds equal bilaterally. No wheezes , rales, or rhonchi. MUSCULOSKELETAL: Extremities without clubbing, cyanosis, or edema. NEURO: Alert & Oriented x4 to person, place, time, situation. Moves all ext x4 Results - Labs CBC & Chem 7: 10/28/17 08:27 10/28/17 08:27 Microbiology 10/28/17 20:45 Blood - Peripheral Aerobic Blood Culture - Preliminary No growth in 3 days 10/28/17 20:45 Blood - Peripheral Anaerobic Blood Culture - Preliminary No growth in 3 days 10/28/17 20:40 Blood - Peripheral Aerobic Blood Culture - Preliminary No growth in 3 days 10/28/17 20:40 Blood - Peripheral Anaerobic Blood Culture - Preliminary No growth in 3 days 10/27/17 22:38 Blood - Peripheral Aerobic Blood Culture - Preliminary No growth in 4 days 10/27/17 22:38 Blood - Peripheral Anaerobic Blood Culture - Preliminary No growth in 4 days 10/27/17 22:33 Blood - Peripheral Aerobic Blood Culture - Preliminary No growth in 4 days 10/27/17 22:33 Blood - Peripheral Anaerobic Blood Culture - Preliminary No growth in 4 days 10/30/17 09:50 Lumbar Puncture Gram Stain - Final 10/30/17 09:50 Lumbar Puncture CSF Culture - Preliminary No growth in 24 hours Assessment and Plan - Assessment (1) Severe headache Code(s): R51 - Headache Status: Acute (2) Hx: meningitis Code(s): Z86.61 - Personal history of infections of the central nervous system Status: Acute - Plan Patient is a 32-year-old female with primary medical history of chronic headaches, pseudotumors cerebri who initially came to the hospital for complaints of. Severe headache and neck pain 2 days. Severe headache, reports fevers and chills at home History of meningitis History of pseudotumor cerebri Chronic headaches Suspect aseptic meningitis/viral meningitis -the patient status post LP on 10/30, CSF with mild elevated WBC at 273 with a lymphocytosis.? Aseptic meningitis. Appreciate IDs recommendation. Follow up neurosurgery recommendations. Will discontinue IV Dilaudid and place on oral Dilaudid. Follow-up CSF studies. Blood cultures negative to date. CSF cultures preliminary currently no growth to date. Nausea, vomitingZofran Vertigo -Continue meclizine, Zofran -resolved. DVT prop SCDs Discharge Planning: Home when medically stable
--- NOTE | 2017-10-31 18:58 | P.PN ---
Subjective Interval history: NOT SEEN Physical Exam Vital signs: Vital Signs 10/30/17 20:00 10/30/17 21:40 10/31/17 00:00 Temperature 98.2 F 97.8 F Pulse Rate 70 64 Respiratory Rate 22 20 20 Blood Pressure 102/54 L 102/63 Pulse Oximetry 96 95 10/31/17 04:00 10/31/17 08:00 10/31/17 12:00 Temperature 97.7 F 97.9 F 98.6 F Pulse Rate 61 72 71 Respiratory Rate 20 16 16 Blood Pressure 123/63 113/70 138/69 Pulse Oximetry 97 100 98 10/31/17 16:00 Temperature 98.0 F Pulse Rate 85 Respiratory Rate 16 Blood Pressure 109/58 L Pulse Oximetry 96 Intake & Output 10/30/17 10/31/17 10/31/17 18:59 06:59 18:59 Intake Total 880 / 880 540 / 540 720 / 720 Output Total 0 / 0 Balance 880 / 880 540 / 540 720 / 720 Weight 109.6 kg Intake: Oral 880 / 880 540 / 540 720 / 720 Output: Stool 0 / 0 Other: # Voids 2 2 3 Date of Last Bowel Movement 10/25/17 10/25/17 10/25/17 # Bowel Movements 0 Results - Labs CBC & Chem 7: 10/28/17 08:27 10/28/17 08:27 Microbiology 10/28/17 20:45 Blood - Peripheral Aerobic Blood Culture - Preliminary No growth in 3 days 10/28/17 20:45 Blood - Peripheral Anaerobic Blood Culture - Preliminary No growth in 3 days 10/28/17 20:40 Blood - Peripheral Aerobic Blood Culture - Preliminary No growth in 3 days 10/28/17 20:40 Blood - Peripheral Anaerobic Blood Culture - Preliminary No growth in 3 days 10/27/17 22:38 Blood - Peripheral Aerobic Blood Culture - Preliminary No growth in 4 days 10/27/17 22:38 Blood - Peripheral Anaerobic Blood Culture - Preliminary No growth in 4 days 10/27/17 22:33 Blood - Peripheral Aerobic Blood Culture - Preliminary No growth in 4 days 10/27/17 22:33 Blood - Peripheral Anaerobic Blood Culture - Preliminary No growth in 4 days 10/30/17 09:50 Lumbar Puncture Gram Stain - Final 10/30/17 09:50 Lumbar Puncture CSF Culture - Preliminary No growth in 24 hours - Procedures LP Assessment and Plan - Assessment (1) Severe headache Code(s): R51 - Headache Status: Acute (2) Hx: meningitis Code(s): Z86.61 - Personal history of infections of the central nervous system Status: Acute - Plan Patient is a 32-year-old female with primary medical history of chronic headaches, pseudotumors cerebri who initially came to the hospital for complaints of severe headache and neck pain 2 days. Severe headache, reports fevers and chills at home History of meningitis History of pseudotumor cerebri Chronic headaches Suspect aseptic meningitis/viral meningitis -the patient status post LP on 10/30, CSF with mild elevated WBC at 273 with a lymphocytosis.? Aseptic meningitis. Appreciate IDs recommendation. Follow up neurosurgery recommendations. Will discontinue IV Dilaudid and place on oral Dilaudid. Follow-up CSF studies. Blood cultures negative to date. CSF cultures preliminary currently no growth to date. Nausea, vomitingZofran Vertigo -Continue meclizine, Zofran -resolved. DVT prop SCDs
[2017-11-01] MEDS: HYDROmorphone PF Inj 2 MG/ML Vial IV.PUSH PRN ×6 (01:37→22:50)
[2017-11-01 07:51] LABS: N Meningitidis B/EColi K1 Not Detected (Not Detected)
[2017-11-01] MEDS: Methocarbamol 500 MG Tablet PO SCH ×4 (09:14→20:23)
[2017-11-01] MEDS: FLUoxetine 10 MG Capsule PO SCH (09:15)
[2017-11-01] MEDS: Topiramate 100 MG Tablet PO SCH ×2 (09:15→20:23)
[2017-11-01] MEDS: Polyethylene Glycol 3350 17 GM Packet PO SCH (09:16)
--- NOTE | 2017-11-01 13:01 | P.PNNS ---
Subjective Interval history: Patient continues to complain of headaches Physical Exam Vital signs: Vital Signs 10/31/17 16:00 10/31/17 19:04 10/31/17 20:00 Temperature 98.0 F 99.3 F Pulse Rate 85 78 Respiratory Rate 16 18 20 Blood Pressure 109/58 L 130/74 Pulse Oximetry 96 98 11/01/17 00:00 11/01/17 04:00 11/01/17 08:00 Temperature 99.1 F 98.4 F 98.3 F Pulse Rate 82 66 61 Respiratory Rate 20 20 19 Blood Pressure 111/58 L 98/61 L 107/65 Pulse Oximetry 98 95 97 11/01/17 12:00 Temperature 98.7 F Pulse Rate 63 Respiratory Rate 19 Blood Pressure 109/64 Pulse Oximetry 97 Intake & Output 10/31/17 11/01/17 11/01/17 18:59 06:59 18:59 Intake Total 720 / 720 480 / 480 Balance 720 / 720 480 / 480 Weight 102.6 kg Intake: Oral 720 / 720 480 / 480 Other: # Voids 3 1 Date of Last Bowel Movement 10/25/17 10/30/17 Narrative: Patient alert and awake. Lying in bed. Fluent speech. Follows commands well Moves all extremities well Assessment and Plan - Plan Impression: Continued headaches. CSF cultures have been negative Continue observation.
--- NOTE | 2017-11-01 16:13 | P.PN ---
Subjective Interval history: F/U DELCID. Persistent pressure DELCID 8/10 different from migraine and pseudotumor cerebri. Similar to when she had aseptic meningitis Physical Exam Vital signs: Vital Signs 10/31/17 19:04 10/31/17 20:00 11/01/17 00:00 Temperature 99.3 F 99.1 F Pulse Rate 78 82 Respiratory Rate 18 20 20 Blood Pressure 130/74 111/58 L Pulse Oximetry 98 98 11/01/17 04:00 11/01/17 08:00 11/01/17 12:00 Temperature 98.4 F 98.3 F 98.7 F Pulse Rate 66 61 63 Respiratory Rate 20 19 19 Blood Pressure 98/61 L 107/65 109/64 Pulse Oximetry 95 97 97 Intake & Output 10/31/17 11/01/17 11/01/17 18:59 06:59 18:59 Intake Total 720 / 720 480 / 480 Balance 720 / 720 480 / 480 Weight 102.6 kg Intake: Oral 720 / 720 480 / 480 Other: # Voids 3 1 Date of Last Bowel Movement 10/25/17 10/30/17 Narrative: GENERAL: WD obese in [place] SKIN: Warm and dry. CARDIOVASCULAR: Regular rate and rhythm without murmurs, gallops, or rubs. RESPIRATORY: Breath sounds equal bilaterally. No accessory muscle use. GASTROINTESTINAL: Abdomen soft, non-tender, nondistended. MUSCULOSKELETAL: No cyanosis, or edema. BACK: Nontender without obvious deformity. No CVA tenderness. Results - Labs CBC & Chem 7: 10/28/17 08:27 10/28/17 08:27 Laboratory Results - last 24 hr 10/30/17 09:50 CSF N.mening B/E.coli K1 Not detected CSF N.meningitidis A/Y Not detected H.influenzae Type B Ag Not detected N. meningitidis C/W 135 Not detected Group B Strep Antigen Not detected S. pneumoniae Antigen Not detected Microbiology 10/28/17 20:45 Blood - Peripheral Aerobic Blood Culture - Preliminary No growth in 4 days 10/28/17 20:45 Blood - Peripheral Anaerobic Blood Culture - Preliminary No growth in 4 days 10/28/17 20:40 Blood - Peripheral Aerobic Blood Culture - Preliminary No growth in 4 days 10/28/17 20:40 Blood - Peripheral Anaerobic Blood Culture - Preliminary No growth in 4 days 10/27/17 22:38 Blood - Peripheral Aerobic Blood Culture - Final No growth in 5 days 10/27/17 22:38 Blood - Peripheral Anaerobic Blood Culture - Final No growth in 5 days 10/27/17 22:33 Blood - Peripheral Aerobic Blood Culture - Final No growth in 5 days 10/27/17 22:33 Blood - Peripheral Anaerobic Blood Culture - Final No growth in 5 days 10/30/17 09:50 Lumbar Puncture Gram Stain - Final 10/30/17 09:50 Lumbar Puncture CSF Culture - Preliminary No growth in 48 hours - Procedures LP Assessment and Plan - Assessment (1) Severe headache Code(s): R51 - Headache Status: Acute (2) Hx: meningitis Code(s): Z86.61 - Personal history of infections of the central nervous system Status: Acute - Plan Patient is a 32-year-old female with primary medical history of chronic headaches, pseudotumors cerebri who initially came to the hospital for complaints of severe headache and neck pain 2 days. Severe headache, reports fevers and chills at home. Resolved fever and chills but persistent DELCID History of meningitis History of pseudotumor cerebri Chronic headaches Suspect aseptic meningitis/viral meningitis -the patient status post LP on 10/30, CSF with mild elevated WBC at 273 with a lymphocytosis.? Aseptic meningitis. Appreciate IDs recommendation. Follow up neurosurgery recommendations. Will discontinue IV Dilaudid and place on oral Dilaudid which she takes at home counselled re narcs. Follow-up CSF studies. Blood cultures negative to date. Consult pt's neurologist Nausea, vomitingZofran Vertigo -Continue meclizine, Zofran -resolved. LMP 10/23/17 DVT prop SCDs Discharge Planning: dc when DELCID improves
[2017-11-02] MEDS: HYDROmorphone PF Inj 2 MG/ML Vial IV.PUSH PRN ×6 (03:50→22:21)
[2017-11-02] MEDS: Methocarbamol 500 MG Tablet PO SCH ×4 (08:00→21:31)
[2017-11-02] MEDS: Topiramate 100 MG Tablet PO SCH ×2 (08:00→21:32)
[2017-11-02] MEDS: FLUoxetine 10 MG Capsule PO SCH (08:00)
[2017-11-02] MEDS: Polyethylene Glycol 3350 17 GM Packet PO SCH (08:01)
--- NOTE | 2017-11-02 12:20 | MB ---
cc: Antonio Haddad MD, PhD DATE: 11/02/2017 REASON FOR CONSULTATION: Headache, history of pseudotumor. HISTORY OF PRESENT ILLNESS: Latia Mayberry is a 32-year-old female who has a history of pseudotumor cerebri with recent shunt placement. She was admitted with increasing headaches, which she states are different from the pseudotumor type of headaches that she has experienced before. She underwent evaluation with lumbar puncture, which showed 273 WBCs, 2% neutrophils, 84% lymphs, 14% monocytes, RBC 18, glucose 53. Fungal stain negative, culture and CSF negative after 72 hours, consistent with aseptic meningitis. The patient relates that she was recently admitted several weeks ago again with aseptic meningitis. CURRENT MEDICATIONS: 1. Dickens p.r.n. pain. 2. Benadryl. 3. Prozac. 4. Dilaudid p.r.n. pain. 5. Lactulose. 6. Robaxin. 7. Zofran. 8. MiraLax. 9. Topamax 100 mg b.i.d. NEUROLOGICAL EXAMINATION: VITAL SIGNS: Temperature 98.3 degrees, blood pressure 114/68, pulse is 59, respiratory rate is 20. NEUROLOGIC: Higher cortical functions are normal. Cranial nerves are intact. Motor: She has normal strength and tone in all groups. 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 IMPRESSION: Recurrent aseptic meningitis. I would like to obtain an MRI of the brain, as well as the entire spine to be sure this is not a chemical meningitis from a dermoid cyst. Alternatively, this could be Mollaret's meningitis. We will also check additional labs including Lyme disease and sedimentation rate to rule out autoimmune type of meningitis. Antonio Haddad MD, PhD MOHIT/TL , 11:11 AM , 12:19 PM
[2017-11-02] MEDS ORDERED: Gadodiamide PF Inj 287 MG/ML 20 ML Syringe (for RAD MRI) IVCONTRAST ONE (14:03)
--- NOTE | 2017-11-02 14:11 | MR ---
EXAM DATE: 11/02/2017 2:07 PM EDT AGE/SEX: 32 years / Female INDICATIONS: Cephalgia. CLINICAL DATA: This is the patient's subsequent encounter. Patient reports that signs and symptoms h ave been present for 4 - 6 days and indicates a pain score of 3/10. MEDICAL/SURGICAL HISTORY: . Meningitis. section. Renal stent. Peritoneal shunt. COMPARISON: C, MRA BRAIN W/O CONTRAST, 10/05/2017. C, MRI BRAIN W/O CONTRAST, 07/12/2017. C, MRI BRAIN W & W/O CONTRAST, 07/27/2017. . TECHNIQUE: Multiplanar, multisequence examination of the brain was performed without and with 20cc ml Omniscan (gadodiamide) contrast as a single exam dose. FINDINGS: Cerebrum: The ventricles are normal for age. No evidence of midline shift, mass lesion, hemorrhage or acute infarction. No extraaxial fluid collections are seen. The pituitary gland and suprasellar cistern are normal in configuration. White Matter: No significant signal abnormalities are seen in the white matter. Posterior Fossa: The cerebellum and brainstem are intact. The 4th ventricle is midline. The cerebel lopontine angle is unremarkable. The cerebellar tonsils are normal in position. Diffusion Imaging: No focal areas of restricted diffusion are seen. No evidence of acute infarction . Extracranial: The visualized portions of the orbits and paranasal sinuses are unremarkable. Post Contrast: No abnormal areas of parenchymal or dural enhancement. No evidence of blood-brain ba rrier breakdown. CONCLUSION: 1. Unremarkable MRI brain. Electronically signed by: Nemesio Mcginnis MD 11/02/2017 2:09 PM EDT
--- NOTE | 2017-11-02 14:15 | MR ---
EXAM DATE: 11/02/2017 2:11 PM EDT AGE/SEX: 32 years / Female INDICATIONS: Meningitis. CLINICAL DATA: This is the patient's subsequent encounter. Patient reports that signs and symptoms h ave been present for 4 - 6 days and indicates a pain score of 3/10. MEDICAL/SURGICAL HISTORY: . Meningitis. section. Renal stent. Peritoneal shunt. COMPARISON: [facility] – [place], MR THORACIC SPINE W & W/O CON, 11/02/2017. . TECHNIQUE: Multiplanar, multisequence MRI examination of the cervical spine was performed without an d with 20cc ml Omniscan (gadodiamide) contrast as a single exam dose. FINDINGS: Vertebrae: Normal vertebral body height. Homogeneous marrow signal. Alignment: Normal. Cord: Normal configuration and signal. Post Fossa: The cerebellar tonsils are normal in position. Post Contrast: No abnormal areas of enhancement are seen. C2-C3: The thecal sac has a normal configuration. There is no evidence of disc herniation or spinal canal stenosis. The neural foramina are patent bilaterally. C3-C4: The thecal sac has a normal configuration. There is no evidence of disc herniation or spinal canal stenosis. The neural foramina are patent bilaterally. C4-C5: The thecal sac has a normal configuration. There is no evidence of disc herniation or spinal canal stenosis. The neural foramina are patent bilaterally. C5-C6: The thecal sac has a normal configuration. There is no evidence of disc herniation or spinal canal stenosis. Left neural foramen patent. Uncovertebral spurring on the right causing mild narrowi ng of the right neural foramen. C6-C7: The thecal sac has a normal configuration. There is no evidence of disc herniation or spinal canal stenosis. The neural foramina are patent bilaterally. C7-T1: No epidural impressions seen. CONCLUSION: 1. Minimal degenerative changes at C5-6 otherwise normal MRI cervical spine Electronically signed by: Nemesio Mcginnis MD 11/02/2017 2:13 PM EDT
--- NOTE | 2017-11-02 14:27 | MR ---
EXAM DATE: 11/02/2017 2:18 PM EDT AGE/SEX: 32 years / Female INDICATIONS: Meningitis. CLINICAL DATA: This is the patient's subsequent encounter. Patient reports that signs and symptoms h ave been present for 4 - 6 days and indicates a pain score of 3/10. MEDICAL/SURGICAL HISTORY: . section. Renal stent. Peritoneal shunt. COMPARISON: [facility] [place] CERVICAL [place] W & W/O CON, 11/02/2017. . TECHNIQUE: Multiplanar, multisequence MRI of the thoracic spine was performed without and with 20cc ml Omniscan (gadodiamide) contrast as a single exam dose. FINDINGS: Vertebrae: Normal vertebral body height. Homogeneous marrow signal with the exception of T1 and T2 bright lesion at T10 likely hemangioma. Alignment: Normal. Cord: Normal position and configuration. Post Contrast: No abnormal areas of enhancement are seen in the cord, dural or paraspinal regions. T1-T2: The thecal sac has a normal diameter. No evidence of disc bulge or protrusion. T2-T3: The thecal sac has a normal diameter. No evidence of disc bulge or protrusion. T3-T4: The thecal sac has a normal diameter. No evidence of disc bulge or protrusion. T4-T5: The thecal sac has a normal diameter. No evidence of disc bulge or protrusion. T5-T6: The thecal sac has a normal diameter. No evidence of disc bulge or protrusion. T6-T7: The thecal sac has a normal diameter. No evidence of disc bulge or protrusion. T7-T8: The thecal sac has a normal diameter. No evidence of disc bulge or protrusion. T8-T9: The thecal sac has a normal diameter. No evidence of disc bulge or protrusion. T9-T10: The thecal sac has a normal diameter. No evidence of disc bulge or protrusion. T10-T11: The thecal sac has a normal diameter. No evidence of disc bulge or protrusion. T11-T12: The thecal sac has a normal diameter. No evidence of disc bulge or protrusion. T12-L1: Mild broad-based disc bulge abuts the ventral thecal sac. No canal stenosis. CONCLUSION: 1. Mild broad-based disc bulge T12-L1. No canal stenosis. 2. Otherwise unremarkable thoracic spine. Electronically signed by: Nemesio Mcginnis MD 11/02/2017 2:26 PM EDT
--- NOTE | 2017-11-02 14:29 | MR ---
EXAM DATE: 11/02/2017 2:15 PM EDT AGE/SEX: 32 years / Female INDICATIONS: Meningitis. CLINICAL DATA: This is the patient's subsequent encounter. Patient reports that signs and symptoms h ave been present for 4 - 6 days and indicates a pain score of 3/10. MEDICAL/SURGICAL HISTORY: . Meningitis. section. Renal stent. Peritoneal shunt. COMPARISON: [facility] [place], MR CERVICAL SPINE W & W/O CON, 11/02/2017. . TECHNIQUE: Multiplanar, multisequence MRI examination of the lumbar spine was performed without and with 20cc ml Omniscan (gadodiamide) contrast as a single exam dose. FINDINGS: The most caudal-appearing lumbar vertebra is numbered as L5. Vertebra: Homogeneous signal. Normal alignment. Minimal signal abnormality within the posterior sof t tissues at L4-5 level likely iatrogenic from previous lumbar puncture. Conus: Normal level and configuration. Post Contrast: No abnormal areas of contrast enhancement are seen. T12-L1: The thecal sac has a normal diameter. No evidence of disc bulge or protrusion. The neural foramina are patent bilaterally. L1-L2: The thecal sac has a normal diameter. No evidence of disc bulge or protrusion. The neural foramina are patent bilaterally. L2-L3: The thecal sac has a normal diameter. No evidence of disc bulge or protrusion. The neural foramina are patent bilaterally. L3-L4: The thecal sac has a normal diameter. No evidence of disc bulge or protrusion. The neural foramina are patent bilaterally. L4-L5: The thecal sac has a normal diameter. No evidence of disc bulge or protrusion. The neural foramina are patent bilaterally. L5-S1: The thecal sac has a normal diameter. No evidence of disc bulge or protrusion. The neural foramina are patent bilaterally. CONCLUSION: 1. Unremarkable MRI lumbar spine. Electronically signed by: Nemesio Mcginnis MD 11/02/2017 2:28 PM EDT
--- NOTE | 2017-11-02 15:12 | P.PN ---
Subjective Interval history: Follow-up headache. States persistent headache with neck discomfort after having MRI. Also reports a burning urination Physical Exam Vital signs: Vital Signs 11/01/17 16:00 11/01/17 20:00 11/02/17 00:00 Temperature 98.1 F 98.3 F 98.3 F Pulse Rate 74 76 62 Respiratory Rate 19 16 17 Blood Pressure 107/59 L 105/60 91/55 L Pulse Oximetry 19 L 99 96 11/02/17 04:00 11/02/17 08:00 11/02/17 09:21 Temperature 98.5 F 98.1 F Pulse Rate 62 59 L Respiratory Rate 17 20 7 L Blood Pressure 103/69 114/68 Pulse Oximetry 98 100 11/02/17 11:55 11/02/17 12:00 11/02/17 14:55 Temperature 98.4 F Pulse Rate Respiratory Rate 18 20 18 Blood Pressure 113/59 L Pulse Oximetry 98 11/02/17 14:56 Temperature Pulse Rate Respiratory Rate 18 Blood Pressure Pulse Oximetry Intake & Output 11/01/17 11/02/17 11/02/17 18:59 06:59 18:59 Intake Total 480 / 480 480 / 480 Balance 480 / 480 480 / 480 Intake: Oral 480 / 480 480 / 480 Other: # Voids 3 1 Date of Last Bowel Movement 10/30/17 Narrative: GENERAL: WD obese in [place] SKIN: Warm and dry. CARDIOVASCULAR: Regular rate and rhythm RESPIRATORY: Breath sounds equal bilaterally. No accessory muscle use. GASTROINTESTINAL: Abdomen soft, non-tender, nondistended. MUSCULOSKELETAL: No cyanosis, or edema. BACK: Nontender without obvious deformity. No CVA tenderness. Alert and oriented nonfocal Results - Labs CBC & Chem 7: 10/28/17 08:27 10/28/17 08:27 Microbiology 10/28/17 20:45 Blood - Peripheral Aerobic Blood Culture - Final No growth in 5 days 10/28/17 20:45 Blood - Peripheral Anaerobic Blood Culture - Final No growth in 5 days 10/28/17 20:40 Blood - Peripheral Aerobic Blood Culture - Final No growth in 5 days 10/28/17 20:40 Blood - Peripheral Anaerobic Blood Culture - Final No growth in 5 days 10/30/17 09:50 Lumbar Puncture Gram Stain - Final 10/30/17 09:50 Lumbar Puncture CSF Culture - Final No growth in 72 hours - Imaging Impressions Cervical Spine MRI 11/02/17 00:00 CONCLUSION: 1. Minimal degenerative changes at C5-6 otherwise normal MRI cervical spine Head MRI 11/02/17 00:00 CONCLUSION: 1. Unremarkable MRI brain. Lumbar Spine MRI 11/02/17 00:00 CONCLUSION: 1. Unremarkable MRI lumbar spine. Thoracic Spine MRI 11/02/17 00:00 CONCLUSION: 1. Mild broad-based disc bulge T12-L1. No canal stenosis. 2. Otherwise unremarkable thoracic spine. - Procedures LP Assessment and Plan - Assessment (1) Severe headache Code(s): R51 - Headache Status: Acute (2) Hx: meningitis Code(s): Z86.61 - Personal history of infections of the central nervous system Status: Acute - Plan Patient is a 32-year-old female with primary medical history of chronic headaches, pseudotumors cerebri who initially came to the hospital for complaints of severe headache and neck pain 2 days. Severe headache, reports fevers and chills at home. Resolved fever and chills but persistent DELCID History of meningitis History of pseudotumor cerebri Chronic headaches Suspect aseptic meningitis/viral meningitis -Status post LP on 10/30, CSF with mild elevated WBC at 273 with a lymphocytosis.? Aseptic meningitis. Appreciate IDs recommendation. Follow up neurosurgery recommendations. Will discontinue IV Dilaudid and place on oral Dilaudid which she takes at home counselled re narcs. Follow-up CSF studies. Blood cultures negative to date. Discussed with pt's neurologist who ordered brain, cervical, thoracic and lumbar spine MRI all unremarkable Nausea, vomitingZofran Vertigo -Continue meclizine, Zofran -resolved. LMP 10/23/17 DVT prop SCDs Discharge Planning: dc when DELCID improves
[2017-11-02 15:45] LABS: Amorphous Sediment,Urine Few /hpf; Bilirubin,Urine Negative (Negative); Clarity,Urine Cloudy (Clear); Color,Urine Yellow (Yellw/Straw); Glucose,Urine (UA) Negative (Negative); Leukocyte Esterase,Urine Negative (Negative); Mucus,Urine Few /lpf (Occasional); Nitrite,Urine Negative (Negative); Specific Gravity,Urine 1.019 (1.002-1.035); Squamous Epithelial Cell,Urine 4 /hpf (0-5)
--- NOTE | 2017-11-02 17:26 | P.PNNS ---
Subjective Interval history: Patient reports no new problems Physical Exam Vital signs: Vital Signs 11/01/17 20:00 11/02/17 00:00 11/02/17 04:00 Temperature 98.3 F 98.3 F 98.5 F Pulse Rate 76 62 62 Respiratory Rate 16 17 17 Blood Pressure 105/60 91/55 L 103/69 Pulse Oximetry 99 96 98 11/02/17 08:00 11/02/17 09:21 11/02/17 11:55 Temperature 98.1 F Pulse Rate 59 L Respiratory Rate 20 7 L 18 Blood Pressure 114/68 Pulse Oximetry 100 11/02/17 12:00 11/02/17 14:55 11/02/17 14:56 Temperature 98.4 F Pulse Rate Respiratory Rate 20 18 18 Blood Pressure 113/59 L Pulse Oximetry 98 11/02/17 15:55 11/02/17 16:00 Temperature 98.1 F Pulse Rate 61 Respiratory Rate 18 20 Blood Pressure 105/58 L Pulse Oximetry 100 Intake & Output 11/01/17 11/02/17 11/02/17 18:59 06:59 18:59 Intake Total 480 / 480 480 / 480 Balance 480 / 480 480 / 480 Intake: Oral 480 / 480 480 / 480 Other: # Voids 3 1 Date of Last Bowel Movement 10/30/17 Narrative: Alert and awake follows commands well. Moves all extremities well Assessment and Plan - Plan Impression: Clinically unchanged. Decision concerning shunt will be made by Dr. Cerrato.
[2017-11-03] MEDS: HYDROmorphone PF Inj 2 MG/ML Vial IV.PUSH PRN ×3 (02:09→10:25)
[2017-11-03] MEDS: Topiramate 100 MG Tablet PO SCH ×2 (10:05→20:39)
[2017-11-03] MEDS: FLUoxetine 10 MG Capsule PO SCH (10:05)
[2017-11-03] MEDS: Polyethylene Glycol 3350 17 GM Packet PO SCH (10:07)
[2017-11-03] MEDS: Methocarbamol 500 MG Tablet PO SCH ×4 (10:22→20:37)
--- NOTE | 2017-11-03 13:28 | P.PN ---
Subjective Interval history: Follow-up headache. States headache is slightly better today scale of 7 out of 10. She also has neck discomfort scale of 9 out of 10. Also reports of decreased vision on the left which is chronic. Physical Exam Vital signs: Vital Signs 11/02/17 14:55 11/02/17 14:56 11/02/17 15:55 Temperature Pulse Rate Respiratory Rate 18 18 18 Blood Pressure Pulse Oximetry 11/02/17 16:00 11/02/17 18:17 11/02/17 20:00 Temperature 98.1 F 98.2 F Pulse Rate 61 65 Respiratory Rate 20 18 18 Blood Pressure 105/58 L 103/55 L Pulse Oximetry 100 99 11/02/17 23:52 11/03/17 04:00 11/03/17 08:00 Temperature 98.1 F 98.1 F 98.2 F Pulse Rate 64 64 61 Respiratory Rate 18 15 18 Blood Pressure 100/61 102/57 L 91/54 L Pulse Oximetry 97 95 100 11/03/17 12:00 Temperature 98.3 F Pulse Rate 53 L Respiratory Rate 20 Blood Pressure 119/58 L Pulse Oximetry 100 Intake & Output 11/02/17 11/03/17 11/03/17 18:59 06:59 18:59 Intake Total 480 / 480 Balance 480 / 480 Intake: Oral 480 / 480 Other: Date of Last Bowel Movement 10/30/17 Narrative: GENERAL: This is a well-nourished, well-developed patient, in no apparent distress. Neck supple CARDIOVASCULAR: Regular rate and rhythm without murmurs, gallops, or rubs. RESPIRATORY: Clear to auscultation. Breath sounds equal bilaterally. No wheezes , rales, or rhonchi. GASTROINTESTINAL: Abdomen soft, non-tender, nondistended. Normal active bowel sounds MUSCULOSKELETAL: Extremities without clubbing, cyanosis, or edema. NEURO: Alert & Oriented x4 to person, place, time, situation. Moves all ext x4 Results - Labs CBC & Chem 7: 10/28/17 08:27 10/28/17 08:27 Laboratory Results - last 24 hr 11/02/17 11/02/17 15:12 15:24 ESR 49 H Urine Color Yellow Urine Clarity Cloudy H Urine pH 7.0 Ur Specific Green 1.019 Urine Protein Negative Urine Glucose (UA) Negative Urine Ketones Negative Urine Occult Blood Negative Urine Nitrate Negative Urine Bilirubin Negative Urine Urobilinogen Less than 2 Ur Leukocyte Esterase Negative Urine RBC 1 Urine WBC 2 Ur Squamous Epith Cells 4 Amorphous Sediment Few H Urine Mucus Few H Micro UA Comment Culture not ind Urine Culture Comments Culture not ind Microbiology 10/28/17 20:45 Blood - Peripheral Aerobic Blood Culture - Final No growth in 5 days 10/28/17 20:45 Blood - Peripheral Anaerobic Blood Culture - Final No growth in 5 days 10/28/17 20:40 Blood - Peripheral Aerobic Blood Culture - Final No growth in 5 days 10/28/17 20:40 Blood - Peripheral Anaerobic Blood Culture - Final No growth in 5 days - Imaging Impressions Cervical Spine MRI 11/02/17 00:00 CONCLUSION: 1. Minimal degenerative changes at C5-6 otherwise normal MRI cervical spine Head MRI 11/02/17 00:00 CONCLUSION: 1. Unremarkable MRI brain. Lumbar Spine MRI 11/02/17 00:00 CONCLUSION: 1. Unremarkable MRI lumbar spine. Thoracic Spine MRI 11/02/17 00:00 CONCLUSION: 1. Mild broad-based disc bulge T12-L1. No canal stenosis. 2. Otherwise unremarkable thoracic spine. - Procedures LP Assessment and Plan - Assessment (1) Severe headache Code(s): R51 - Headache Status: Acute (2) Hx: meningitis Code(s): Z86.61 - Personal history of infections of the central nervous system Status: Acute - Plan Patient is a 32-year-old female with primary medical history of chronic headaches, pseudotumors cerebri who initially came to the hospital for complaints of severe headache and neck pain 2 days. Severe headache, reports fevers and chills at home. Resolved fever and chills but persistent DELCID. History of meningitis, pseudotumor cerebri and chronic headaches. Suspect aseptic meningitis/viral meningitis -Status post LP on 10/30, CSF with mild elevated WBC at 273 with a lymphocytosis.? Aseptic meningitis. Appreciate IDs recommendation. Follow up neurosurgery recommendations. Will discontinue IV Dilaudid and place on oral Dilaudid which she takes at home counselled re narcs. Follow-up CSF studies negative to date pending MARY and Lyme disease screen. Blood cultures negative to date. Unremarkable brain, cervical, thoracic and lumbar spine. May need shunt eval will defer to [place] Nausea, vomitingimproved continue Zofran Vertigo. Stable. Continue meclizine, Zofran -resolved. LMP 10/23/17 DVT prop SCDs Discharge Planning: dc when DELCID improves and cleared by neuro and NS
--- NOTE | 2017-11-03 18:45 | P.PNNS ---
Subjective Interval history: Patient complains of increasing headache this evening. She indicates that she is upset that the Dilaudid was stopped. She acknowledges that she was only getting 0.2 mg of Dilaudid IV, but states that this was the only thing helping "keep the headaches under control". She states that this does not feel like the headaches that she had prior to the shunt. Headaches are not positional. Physical Exam Vital signs: Vital Signs 11/02/17 20:00 11/02/17 23:52 11/03/17 04:00 Temperature 98.2 F 98.1 F 98.1 F Pulse Rate 65 64 64 Respiratory Rate 18 18 15 Blood Pressure 103/55 L 100/61 102/57 L Pulse Oximetry 99 97 95 11/03/17 08:00 11/03/17 12:00 11/03/17 16:00 Temperature 98.2 F 98.3 F 98.4 F Pulse Rate 61 53 L 66 Respiratory Rate 16 20 18 Blood Pressure 91/54 L 119/58 L 130/66 Pulse Oximetry 100 100 100 Intake & Output 11/02/17 11/03/17 11/03/17 18:59 06:59 18:59 Intake Total 480 / 480 Balance 480 / 480 Intake: Oral 480 / 480 Other: Date of Last Bowel Movement 10/30/17 11/03/17 # Bowel Movements 1 Narrative: Awake and alert Initially resting quietly in bed. She has relatively good cervical range of motion without obvious nuchal rigidity. Moves all extremities well without complaint of discomfort. Extraocular movements intact She appears a little anxious. Also somewhat depressed. Assessment and Plan - Assessment (1) Severe headache Code(s): R51 - Headache Status: Acute (2) Hx: meningitis Code(s): Z86.61 - Personal history of infections of the central nervous system Status: Acute (3) Acute intractable headache Code(s): R51 - Headache Status: Acute Qualifiers: Headache type: unspecified Qualified Code(s): R51 - Headache - Plan Impression: Persistent headaches. Status post lumboperitoneal shunt for idiopathic intracranial hypertension Possible aseptic meningitis. Plan: 11/02/2017 MRI of the brain and entire spine images reviewed by the undersigned. No significant abnormalities noted. Note evidence of inflammatory disease on noncontrast imaging. Findings discussed at length with the patient. I advised her that she needs to try to remain off of the IV Dilaudid. She was on this medication for an extended period of time during her last hospitalization. Responses to the IV Dilaudid seemed nonphysiologic, with the patient indicating that a 4 mg Dilaudid oral tablet does not help her as much as 0.2 mg IV. During her previous hospitalization she complained that the oral Dilaudid caused excessive nausea, but this is not a problem that she alludes to at present. Neurology notes reviewed. Possible aseptic meningitis. Possible role of short course of IV steroids-we will defer to neurology. Cultures of CSF 2 remain negative for growth.
[2017-11-03] MEDS ORDERED: Morphine Inj 4 MG/ML Vial IV.PUSH ONE (18:46)
[2017-11-04] MEDS: Topiramate 100 MG Tablet PO SCH ×2 (08:53→20:42)
[2017-11-04] MEDS: FLUoxetine 10 MG Capsule PO SCH (08:53)
[2017-11-04] MEDS: Polyethylene Glycol 3350 17 GM Packet PO SCH (08:56)
--- NOTE | 2017-11-04 13:14 | P.PNID ---
Subjective Remarks: Patient is a 32-year-old female, with history of chronic headaches and pseudotumor cerebri, admitted to the hospital for evaluation of worsening headache. Patient had undergone a lumboperitoneal shunt August 12, 2017, and she underwent revision September 19, 2017. She was admitted to the hospital October 05 for headache, and was worked up. She had undergone multiple imaging studies including brain MRI, MRI of her whole spine, as well as CT of the abdomen and pelvis. There was no abnormality seen in and around her shunt. Lumbar puncture at that time showed 120 WBC, 35 RBC, with 31 neutrophils and 48 lymphocytes. Viral cultures and HSV all came back negative. The CSF culture came back negative, but apparently the patient had been on antibiotics for about 3 days before she had a lumbar puncture done. Patient was treated for partially treated bacterial meningitis, and received a course of IV vancomycin and IV Rocephin. She was discharged October 17 and she felt better. On October 25 there was an ED visit for severe headache, and she was discharged. She came back to the hospital this time because of worsening headache. She has had some complaints of some neck pain, and states that she has had fevers at home and felt very tired. She has had some occasional nausea and vomiting. She denies any upper respiratory symptoms. She has noted some decrease in her urination but denies any dysuria. Since admission she has had normal temperature. Her WBC is normal. Lumbar puncture was done and it showed 147 WBC 2 neutrophils 84 lymphocytes 14 monocytes and 18 RBC. She has not been on any antibiotics. She still has headaches and neck pain but does not seem to be worsening. Infectious disease consultation has been requested to evaluate patient for question meningitis. Notes reviewed D/W RN Still C/O DELCID Gets her pain meds regularly - NOrco and Dilaudid po C/O some nausea, no vomiting Brain MRI ok MRI whole spine ok CSF C/S negative No fever BP ok Not on Abx Antibiotics: None Lines: No evidence of infection Past Medical History: delivery Hx of headache Lumbar puncture headache Presence of lumboperitoneal shunt History of renal stent Status post lumboperitoneal shunt placement Allergies/Adverse Reactions: Allergies amoxicillin Allergy (Severe, Verified 10/27/17 20:58) Anaphylaxis ketorolac Allergy (Severe, Verified 10/27/17 20:58) Anaphylaxis anaphylaxis per patient Sulfa (Sulfonamide Antibiotics) Allergy (Severe, Verified 10/27/17 20:58) RASH ibuprofen Allergy (Intermediate, Verified 10/27/17 20:58) HIVES, FACIAL SWELLING. tramadol Allergy (Intermediate, Verified 10/27/17 20:58) HIVES hives, sewll up latex Allergy (Unknown, Verified 10/27/17 20:58) Hives penicillin G Allergy (Unknown, Verified 10/27/17 20:58) HIVES prochlorperazine Allergy (Unknown, Verified 10/27/17 20:58) HIVES sumatriptan Adverse Reaction (Severe, Verified 10/27/17 20:58) VOMITING PASSED OUT Objective Vital Signs 11/03/17 16:00 11/03/17 20:00 11/04/17 00:00 Temperature 98.4 F 98.3 F 98.3 F Pulse Rate 66 79 79 Respiratory Rate 18 14 14 Blood Pressure 130/66 130/66 130/66 Pulse Oximetry 100 100 100 11/04/17 04:00 11/04/17 08:00 Temperature 98.0 F Pulse Rate 70 Respiratory Rate 14 20 Blood Pressure 123/68 Pulse Oximetry 100 Intake & Output 11/03/17 11/04/17 11/04/17 18:59 06:59 18:59 Intake Total 720 / 720 200 / 200 Balance 720 / 720 200 / 200 Intake: Oral 720 / 720 200 / 200 Other: # Voids 3 2 Date of Last Bowel Movement 11/03/17 11/03/17 # Bowel Movements 1 10/28/17 20:45 Blood - Peripheral Aerobic Blood Culture - Final No growth in 5 days 10/28/17 20:45 Blood - Peripheral Anaerobic Blood Culture - Final No growth in 5 days 10/28/17 20:40 Blood - Peripheral Aerobic Blood Culture - Final No growth in 5 days 10/28/17 20:40 Blood - Peripheral Anaerobic Blood Culture - Final No growth in 5 days 10/30/17 09:50 Lumbar Puncture Gram Stain - Final 10/30/17 09:50 Lumbar Puncture CSF Culture - Final No growth in 72 hours 10/27/17 22:38 Blood - Peripheral Aerobic Blood Culture - Final No growth in 5 days 10/27/17 22:38 Blood - Peripheral Anaerobic Blood Culture - Final No growth in 5 days 10/27/17 22:33 Blood - Peripheral Aerobic Blood Culture - Final No growth in 5 days 10/27/17 22:33 Blood - Peripheral Anaerobic Blood Culture - Final No growth in 5 days Lab - Hematology Results 11/02/17 15:24 ESR 49 H Imaging: ITS Impressions Chest X-Ray 10/27/17 21:29 CONCLUSION: Mild commentated cardiomegaly without infiltrate or failure. Head CT 10/28/17 00:00 CONCLUSION: 1. Negative noncontrast CT brain, unchanged from 10/05/2017. Lumbar Puncture Fluoroscopy 10/30/17 01:13 CONCLUSION: 1. Uncomplicated fluoroscopically guided lumbar puncture. Cervical Spine MRI 11/02/17 00:00 CONCLUSION: 1. Minimal degenerative changes at C5-6 otherwise normal MRI cervical spine Head MRI 11/02/17 00:00 CONCLUSION: 1. Unremarkable MRI brain. Lumbar Spine MRI 11/02/17 00:00 CONCLUSION: 1. Unremarkable MRI lumbar spine. Thoracic Spine MRI 11/02/17 00:00 CONCLUSION: 1. Mild broad-based disc bulge T12-L1. No canal stenosis. 2. Otherwise unremarkable thoracic spine. Physical Exam: GENERAL: awake and alert, not in respiratory distress. SKIN: Cool and dry. No generalized rash, no ecchymoses and no evidence of embolic lesions. HEAD: Atraumatic. Normocephalic. No temporal wasting, or tenderness. EYES: [place] conjunctiva. No petechia or hemorrhage. Pupils equal, round and reactive to light. Extraocular movements full and intact. No scleral icterus. No injection or drainage. EARS, NOSE AND THROAT: Nose without bleeding or purulent nasal discharge. No sinus tenderness. Mucous membranes pink and moist. No oral lesions noted. No exudate. No oral thrush. NECK: Trachea midline. Supple and not tender, no meningeal signs. No nuchal rigidity. Tender on palpation of her neck, but no obvious swelling or redness CARDIOVASCULAR: Regular rate and rhythm. No murmurs, rubs or gallops heard RESPIRATORY: Clear to auscultation. Breath sounds equal bilaterally. No rales , wheezing or rhonchi ABDOMEN: Soft, non-tender, nondistended. Bowel sounds present and normoactive. No guarding. No rebound. No organomegaly. Healed incision on L side of abdomen BACK: Healed incision in lower spine, with no swelling, induration, or redness EXTREMITIES: No clubbing, cyanosis, or edema.No joint effusion, has good ROM. No calf tenderness. Well perfused and warm. NEUROLOGICAL: Awake and alert. Cranial nerves grossly intact. Motor grossly within normal limits. PSYCHIATRIC: Normal affect, calm and cooperative. LINE: No evidence of infection Assessment and Plan - Plan Impression Headaches, patient with chronic DELCID, has been worsening intermittently - ?meningitis, no nuchal rigidity on my exam - still with CSF pleocytosis, now more lymphocytic, ?LP shunt problem/ infection - previous imaging studies did not show any abnormality around the cath site; she was treated for bacterial meningitis during her last admission - no fever in hospital (though she claims fever at home), WBC is normal Hx pseudotumor cerebri S/P lumboperitoneal shunt July 2017, revision August 2017 Allergy to PCN, has tolerated Rocephin Recommendation Continue to monitor off Abx Monitor progress Rx DELCID Neuro following Nothing new to add from ID standpoint
[2017-11-04] MEDS: Methocarbamol 500 MG Tablet PO SCH ×3 (13:45→20:32)
[2017-11-04] MEDS ORDERED: Naloxone Inj 0.4 MG/ML Vial IV.PUSH PRN (16:15)
--- NOTE | 2017-11-04 16:52 | P.PN ---
Subjective Interval history: Follow-up headache. Improving headache but complains of dizziness when she gets out of bed. She uses a walker. Physical Exam Vital signs: Vital Signs 11/03/17 20:00 11/04/17 00:00 11/04/17 04:00 Temperature 98.3 F 98.3 F 98.0 F Pulse Rate 79 79 70 Respiratory Rate 14 14 14 Blood Pressure 130/66 130/66 123/68 Pulse Oximetry 100 100 100 11/04/17 08:00 Temperature Pulse Rate Respiratory Rate 20 Blood Pressure Pulse Oximetry Intake & Output 11/03/17 11/04/17 11/04/17 18:59 06:59 18:59 Intake Total 720 / 720 200 / 200 480 / 480 Balance 720 / 720 200 / 200 480 / 480 Intake: Oral 720 / 720 200 / 200 480 / 480 Other: # Voids 3 2 2 Date of Last Bowel Movement 11/03/17 11/03/17 # Bowel Movements 1 0 Narrative: GENERAL: This is a well-nourished, well-developed patient, in no apparent distress. Skin: Tinea corporis underside of both breasts CARDIOVASCULAR: Regular rate and rhythm without murmurs, gallops, or rubs. RESPIRATORY: Clear to auscultation. Breath sounds equal bilaterally. No wheezes , rales, or rhonchi. GASTROINTESTINAL: Abdomen soft, non-tender, nondistended. Normal active bowel sounds MUSCULOSKELETAL: Extremities without clubbing, cyanosis, or edema. NEURO: Alert & Oriented x4 to person, place, time, situation. Moves all ext x4 Results - Labs CBC & Chem 7: 10/28/17 08:27 10/28/17 08:27 - Procedures LP Assessment and Plan - Assessment (1) Severe headache Code(s): R51 - Headache Status: Acute (2) Hx: meningitis Code(s): Z86.61 - Personal history of infections of the central nervous system Status: Acute - Plan Patient is a 32-year-old female with primary medical history of chronic headaches, pseudotumors cerebri who initially came to the hospital for complaints of severe headache and neck pain 2 days. Severe headache, reports fevers and chills at home. Resolved fever and chills but persistent DELCID. History of meningitis, pseudotumor cerebri and chronic headaches. Suspect aseptic meningitis/viral meningitis -Status post LP on 10/30, CSF with mild elevated WBC at 273 with a lymphocytosis.? Aseptic meningitis. Appreciate IDs recommendation. Follow up neurosurgery recommendations. Requesting Lortab to be switched to Percocet which she takes at home. Counseled regarding narcotic. Follow-up CSF studies negative to date pending MARY and Lyme disease screen. Blood cultures negative to date. Unremarkable brain, cervical, thoracic and lumbar spine. May need shunt eval will defer to NS Nausea, vomitingimproved continue Zofran Vertigo. Stable. Continue meclizine, Zofran -resolved. Tinea corporis. Nystatin powder. LMP 10/23/17 Fall precautions. Consult physical therapy. DVT prop SCDs Discharge Planning: dc when DELCID improves and cleared by neuro and NS discussed with nursing
[2017-11-04] MEDS: Nystatin 100,000 UNITS/GM Powder 15 GM Bottle TOPICAL SCH ×2 (18:31→20:40)
--- NOTE | 2017-11-04 19:24 | XR ---
EXAM DATE: 11/04/2017 7:09 PM EDT AGE/SEX: 32 years / Female INDICATIONS: Check valve setting on shunt. Headaches. CLINICAL DATA: This is the patient's subsequent encounter. Patient reports that signs and symptoms h ave been present for 2 months and indicates a pain score of 0/10. MEDICAL/SURGICAL HISTORY: None. . Shunt placement. COMPARISON: No prior exams available for comparison. FINDINGS: Ventriculoperitoneal catheter present set at 130 mm of water. Visualized right lower quadrant bowel g as pattern nonobstructed. CONCLUSION: Catheter valve set at 130 mm of water. Electronically signed by: Wallace Manuel MD 11/04/2017 7:23 PM EDT
[2017-11-05] MEDS: FLUoxetine 10 MG Capsule PO SCH (08:16)
[2017-11-05] MEDS: Topiramate 100 MG Tablet PO SCH ×2 (08:16→20:55)
[2017-11-05] MEDS: Nystatin 100,000 UNITS/GM Powder 15 GM Bottle TOPICAL SCH ×4 (10:52→20:55)
--- NOTE | 2017-11-05 11:46 | P.PN ---
Subjective Interval history: Follow-up headaches. States she still has headache but no more dizziness. Ambulated with physical therapy who recommended vestibular therapy outpatient discussed with RN we need follow-up with neurology and neurosurgery Physical Exam Vital signs: Vital Signs 11/04/17 12:30 11/04/17 18:00 11/04/17 20:00 Temperature 98.5 F 98.4 F 98.2 F Pulse Rate 60 60 Respiratory Rate 20 Blood Pressure 106/57 L 125/60 113/57 L Pulse Oximetry 100 100 99 11/05/17 00:00 11/05/17 04:00 11/05/17 08:00 Temperature 97.8 F 98 F 98.5 F Pulse Rate 65 63 55 L Respiratory Rate 20 16 Blood Pressure 111/60 120/68 129/59 L Pulse Oximetry 98 100 99 Intake & Output 11/04/17 11/05/17 11/05/17 18:59 06:59 18:59 Intake Total 480 / 480 Balance 480 / 480 Intake: Oral 480 / 480 Other: # Voids 2 # Bowel Movements 0 Narrative: GENERAL: This is a well-nourished, well-developed patient, in no apparent distress. Skin: Tinea corporis underside of both breasts CARDIOVASCULAR: Regular rate and rhythm without murmurs, gallops, or rubs. RESPIRATORY: Clear to auscultation. Breath sounds equal bilaterally. No wheezes , rales, or rhonchi. GASTROINTESTINAL: Abdomen soft, non-tender, nondistended. Normal active bowel sounds MUSCULOSKELETAL: Extremities without clubbing, cyanosis, or edema. NEURO: Alert & Oriented x4 to person, place, time, situation. Moves all ext x4 Results - Labs CBC & Chem 7: 10/28/17 08:27 10/28/17 08:27 - Imaging Impressions Abdomen X-Ray 11/04/17 00:00 CONCLUSION: Catheter valve set at 130 mm of water. - Procedures LP Assessment and Plan - Assessment (1) Severe headache Code(s): R51 - Headache Status: Acute (2) Hx: meningitis Code(s): Z86.61 - Personal history of infections of the central nervous system Status: Acute - Plan Patient is a 32-year-old female with primary medical history of chronic headaches, pseudotumors cerebri who initially came to the hospital for complaints of severe headache and neck pain 2 days. Severe headache, reports fevers and chills at home. Resolved fever and chills but persistent DELCID. History of meningitis, pseudotumor cerebri and chronic headaches. Suspect aseptic meningitis/viral meningitis -Status post LP on 10/30, CSF with mild elevated WBC at 273 with a lymphocytosis.? Aseptic meningitis. Appreciate IDs recommendation. Follow up neurosurgery recommendations. Ct Percocet which she takes at home. Counseled regarding narcotic. Follow-up CSF studies negative to date pending Lyme disease screen. Blood cultures negative to date. Unremarkable brain, cervical, thoracic and lumbar spine. May need shunt eval will defer to NS Nausea, vomitingimproved continue Zofran Vertigo. Stable. Continue meclizine, Zofran. Fall precautions. Consult physical therapy. O/P vestibular tx Tinea corporis. Nystatin powder. LMP 10/23/17 DVT prop SCDs Discharge Planning: dc when cleared by neuro and NS discussed with nursing
--- NOTE | 2017-11-05 13:03 | P.PNNS ---
Subjective Interval history: 10/28: 32-year-old female with history of idiopathic intracranial hypertension. Underwent an initial lumboperitoneal shunt placement 08/12/2017. Postoperative course complicated by significant abdominal pain primarily at the right subcostal margin postoperative. She underwent a laparoscopic revision of the peritoneal catheter on 09/19/2017, with the catheter removed to the left side. She had intermittent headaches, with some nausea and vomiting intermittent following the catheter replacement. She was eventually discharged but soon readmitted with complaint of persistent headaches and some neck stiffness as well as a passing out episode. She underwent a lumbar puncture on 10/08/2017 with no growth on CSF and negative bacteria on Gram stain but WBCs increased to 120 with 35 RBC. She was seen by infectious disease and started on an initial course of cefepime and vancomycin. She completed a subsequent course of IV Rocephin on 10/16/2017. She came back to the emergency room on 10/25/2017 complaining of headache. She was noted to be afebrile with white count 10.9. She was given morphine and Zofran for symptomatic relief of the headache. She returns back to the emergency room on 10/27/2017 with complaint of persistent headaches and fever. Patient afebrile in the emergency room. 10/28/2017 WBC 8.2. She states that for the past 3 days or so she has had significant increased headaches, pressure feeling in her eyes, neck discomfort, some nausea. She denies any significant abdominal discomfort. She states that prior to the past 3 days, she was feeling quite a bit better, improvement in her headaches and vision overall and was ambulating better. She states she had a fever of 103 in the past couple of days. 10/29: Pt resting in bed complaining of headache. She states her eyes hurt to move them. No fever or chills. 10/30: Complains of moderate persistent headache. States she had some nausea last evening with oral pain medications. No complaint of significant abdominal pain. No fever or chills States her vision continues to be improved following the most recent shunt surgery 10/31: This morning when seen the patient was just finishing talking on her cellphone. She stated she was "good." She says she is tired of being in the hospital. When asked how her headache is she replies "crappy" and gives it an 8 out of 10. She also complains that she doesn't have her Antivert for her dizziness which she is on at home. She spontaneously moved her extremities and followed commands but had decreased motor strength on the left. 11/01: Patient continues to complain of headaches 11/02: Patient reports no new problems 11/03: Patient complains of increasing headache this evening. She indicates that she is upset that the Dilaudid was stopped. She acknowledges that she was only getting 0.2 mg of Dilaudid IV, but states that this was the only thing helping "keep the headaches under control". She states that this does not feel like the headaches that she had prior to the shunt. Headaches are not positional. 11/05: This afternoon the patient is on her cellphone when seen. She complains of mid left anterolateral abdominal wall pain at the shunt that started today. She also continues to have a headache and states it feels "crappy." She does more fully participate in motor testing and her strength is essentially normal. <Chandrakant Yeung E - Last Filed: 11/05/17 13:09> Physical Exam Vital signs: Vital Signs 11/04/17 18:00 11/04/17 20:00 11/05/17 00:00 Temperature 98.4 F 98.2 F 97.8 F Pulse Rate 60 60 65 Respiratory Rate 20 20 Blood Pressure 125/60 113/57 L 111/60 Pulse Oximetry 100 99 98 11/05/17 04:00 11/05/17 08:00 Temperature 98 F 98.5 F Pulse Rate 63 55 L Respiratory Rate 16 Blood Pressure 120/68 129/59 L Pulse Oximetry 100 99 Intake & Output 11/04/17 11/05/17 11/05/17 18:59 06:59 18:59 Intake Total 480 / 480 Balance 480 / 480 Intake: Oral 480 / 480 Other: # Voids 2 # Bowel Movements 0 Narrative: GENERAL: Awake & on cellphone when seen. Affect fairly normal, readily interacts. No apparent distress. HEENT: Normocephalic, atraumatic. GASTROINTESTINAL: Abdomen soft, left anterolateral abdominal wall mildly TTP approximately 5 cm above the surgical wound which is well healed. MUSCULOSKELETAL: HOUSE spontaneously & purposefully. NEUROLOGICAL: AAOx3. Speech clear & appropriate. Follows simple commands w/o difficulty. Sensation intact to all extremities. HOUSE spontaneously & purposefully. Motor strength is 5/5 to right side and 4+/5 to left side extremities. <Chandrakant Yeung - Last Filed: 11/05/17 13:09> Vital signs: Vital Signs 11/06/17 00:00 11/06/17 04:00 11/06/17 08:00 Temperature 98 F 98 F 98.1 F Pulse Rate 68 64 52 L Respiratory Rate 20 20 14 Blood Pressure 116/68 116/59 L Pulse Oximetry 97 96 100 11/06/17 12:00 11/06/17 18:25 11/06/17 20:00 Temperature 98.4 F 98 F Pulse Rate 59 L 70 Respiratory Rate 12 20 20 Blood Pressure 116/60 107/51 L Pulse Oximetry 98 96 Intake & Output 11/06/17 11/06/17 11/07/17 06:59 18:59 06:59 Intake Total 320 / 320 240 / 240 Balance 320 / 320 240 / 240 Intake: Oral 320 / 320 240 / 240 Other: # Voids 1 Date of Last Bowel Movement 11/03/17 11/03/17 <Mamadou Cerrato - Last Filed: 11/06/17 21:22> Assessment and Plan - Assessment (1) Severe headache Code(s): R51 - Headache Status: Acute (2) Hx: meningitis Code(s): Z86.61 - Personal history of infections of the central nervous system Status: Acute (3) Acute intractable headache Code(s): R51 - Headache Status: Acute Qualifiers: Headache type: unspecified Qualified Code(s): R51 - Headache - Plan Impression: Persistent headaches. Status post lumboperitoneal shunt for idiopathic intracranial hypertension Possible aseptic meningitis. Patient continues to have headache w/o any apparent change. She now c/o left- sided abdominal pain at the shunt. Her motor strength is essentially normal. Past 24 hrs: Afebrile. Blood, urine and CSF all w/o growth. "11/02/2017 MRI of the brain and entire spine images reviewed by the undersigned. No significant abnormalities noted. Note evidence of inflammatory disease on noncontrast imaging." - Dr Cerrato at 1845 Plan: Primary management per Hospitalist. Neuro checks. Possible role of short course of IV steroids-we will defer to neurology. <Chandrakant Yeung - Last Filed: 11/05/17 13:09> - Assessment (1) Severe headache Code(s): R51 - Headache Status: Acute (2) Hx: meningitis Code(s): Z86.61 - Personal history of infections of the central nervous system Status: Acute (3) Acute intractable headache Code(s): R51 - Headache Status: Acute Qualifiers: Headache type: unspecified Qualified Code(s): R51 - Headache - Attending Attestation Interval history: The exam, history, and the medical decision-making described in the above note were completed with the assistance of the mid-level provider. I reviewed and agree with the findings presented. I attest that I had a [id number] encounter with the patient on the same day, and personally performed and documented my assessment and findings in the medical record. Patient resting quietly when seen late in the evening on 11/05/2017. Records reviewed. Presently no evidence of definite shunt infection or bacterial meningitis. Possible aseptic meningitis. Review abdominal x-ray regarding shunt setting. Continue therapy Wean pain medications. <Mamadou Cerrato - Last Filed: 11/06/17 21:22>
[2017-11-05] MEDS: Methocarbamol 500 MG Tablet PO SCH ×3 (18:37→20:54)
[2017-11-05] MEDS: Polyethylene Glycol 3350 17 GM Packet PO SCH (18:38)
[2017-11-06] MEDS: FLUoxetine 10 MG Capsule PO SCH (08:25)
[2017-11-06] MEDS: Topiramate 100 MG Tablet PO SCH ×2 (08:25→20:54)
--- NOTE | 2017-11-06 10:16 | P.PN ---
Subjective Interval history: Follow-up headache. States it is improving scale of 7 out of 10. She still has neck discomfort. Reports of extreme pain LLQ where she has [employer] shunt overnight kept her from sleeping. Its been bothering her since MRI Physical Exam Vital signs: Vital Signs 11/05/17 12:00 11/05/17 16:00 11/05/17 20:00 Temperature 97.8 F 98.2 F 98.6 F Pulse Rate 66 72 70 Respiratory Rate 19 19 20 Blood Pressure 107/55 L 109/60 110/60 Pulse Oximetry 98 98 95 11/06/17 00:00 11/06/17 04:00 11/06/17 08:00 Temperature 98 F 98 F 98.1 F Pulse Rate 68 64 52 L Respiratory Rate 20 20 14 Blood Pressure 116/68 116/59 L Pulse Oximetry 97 96 100 Intake & Output 11/05/17 11/06/17 11/06/17 18:59 06:59 18:59 Intake Total 320 / 320 Balance 320 / 320 Intake: Oral 320 / 320 Other: Date of Last Bowel Movement 11/03/17 Narrative: GENERAL: Awake & on cellphone when seen. Affect fairly normal, readily interacts. No apparent distress. Neck Supple GASTROINTESTINAL: Abdomen soft, left anterolateral abdominal wall mildly TTP approximately 5 cm above the surgical wound which is well healed. No signs of infection MUSCULOSKELETAL: HOUSE spontaneously & purposefully. NEUROLOGICAL: AAOx3. Nonfocal Results - Labs CBC & Chem 7: 10/28/17 08:27 10/28/17 08:27 - Imaging ITS Impressions Chest X-Ray 10/27/17 21:29 CONCLUSION: Mild commentated cardiomegaly without infiltrate or failure. Head CT 10/28/17 00:00 CONCLUSION: 1. Negative noncontrast CT brain, unchanged from 10/05/2017. Lumbar Puncture Fluoroscopy 10/30/17 01:13 CONCLUSION: 1. Uncomplicated fluoroscopically guided lumbar puncture. Cervical Spine MRI 11/02/17 00:00 CONCLUSION: 1. Minimal degenerative changes at C5-6 otherwise normal MRI cervical spine Head MRI 11/02/17 00:00 CONCLUSION: 1. Unremarkable MRI brain. Lumbar Spine MRI 11/02/17 00:00 CONCLUSION: 1. Unremarkable MRI lumbar spine. Thoracic Spine MRI 11/02/17 00:00 CONCLUSION: 1. Mild broad-based disc bulge T12-L1. No canal stenosis. 2. Otherwise unremarkable thoracic spine. Abdomen X-Ray 11/04/17 00:00 CONCLUSION: Catheter valve set at 130 mm of water. - Procedures LP Assessment and Plan - Assessment (1) Severe headache Code(s): R51 - Headache Status: Acute (2) Hx: meningitis Code(s): Z86.61 - Personal history of infections of the central nervous system Status: Acute - Plan Patient is a 32-year-old female with primary medical history of chronic headaches, pseudotumors cerebri who initially came to the hospital for complaints of severe headache and neck pain 2 days. Severe headache, reports fevers and chills at home. Resolved fever and chills but persistent DELCID. History of meningitis, pseudotumor cerebri and chronic headaches. Suspect aseptic meningitis/viral meningitis. Improving DELCID ct supportive tx -Status post LP on 10/30, CSF with mild elevated WBC at 273 with a lymphocytosis.? Aseptic meningitis. Appreciate IDs recommendation. Follow up neurosurgery recommendations. Ct Percocet which she takes at home. Counseled regarding narcotic. Follow-up CSF studies negative to date pending Lyme disease screen. Blood cultures negative to date. Unremarkable brain, cervical, thoracic and lumbar spine. May need shunt eval will defer to NS LLQ abd pain/tenderness where she has [employer] shunt. F/u CBC. Per NS Nausea, vomitingimproved continue Zofran Vertigo. Stable. Continue meclizine, Zofran. Fall precautions. Consult physical therapy. O/P vestibular tx Tinea corporis. Nystatin powder. LMP 10/23/17 DVT prop SCDs Discharge Planning: dc when cleared by neuro and NS discussed with nursing
--- NOTE | 2017-11-06 11:05 | P.PNNS ---
Subjective Interval history: 10/28: 32-year-old female with history of idiopathic intracranial hypertension. Underwent an initial lumboperitoneal shunt placement 08/12/2017. Postoperative course complicated by significant abdominal pain primarily at the right subcostal margin postoperative. She underwent a laparoscopic revision of the peritoneal catheter on 09/19/2017, with the catheter removed to the left side. She had intermittent headaches, with some nausea and vomiting intermittent following the catheter replacement. She was eventually discharged but soon readmitted with complaint of persistent headaches and some neck stiffness as well as a passing out episode. She underwent a lumbar puncture on 10/08/2017 with no growth on CSF and negative bacteria on Gram stain but WBCs increased to 120 with 35 RBC. She was seen by infectious disease and started on an initial course of cefepime and vancomycin. She completed a subsequent course of IV Rocephin on 10/16/2017. She came back to the emergency room on 10/25/2017 complaining of headache. She was noted to be afebrile with white count 10.9. She was given morphine and Zofran for symptomatic relief of the headache. She returns back to the emergency room on 10/27/2017 with complaint of persistent headaches and fever. Patient afebrile in the emergency room. 10/28/2017 WBC 8.2. She states that for the past 3 days or so she has had significant increased headaches, pressure feeling in her eyes, neck discomfort, some nausea. She denies any significant abdominal discomfort. She states that prior to the past 3 days, she was feeling quite a bit better, improvement in her headaches and vision overall and was ambulating better. She states she had a fever of 103 in the past couple of days. 10/29: Pt resting in bed complaining of headache. She states her eyes hurt to move them. No fever or chills. 10/30: Complains of moderate persistent headache. States she had some nausea last evening with oral pain medications. No complaint of significant abdominal pain. No fever or chills States her vision continues to be improved following the most recent shunt surgery 10/31: This morning when seen the patient was just finishing talking on her cellphone. She stated she was "good." She says she is tired of being in the hospital. When asked how her headache is she replies "crappy" and gives it an 8 out of 10. She also complains that she doesn't have her Antivert for her dizziness which she is on at home. She spontaneously moved her extremities and followed commands but had decreased motor strength on the left. 11/01: Patient continues to complain of headaches 11/02: Patient reports no new problems 11/03: Patient complains of increasing headache this evening. She indicates that she is upset that the Dilaudid was stopped. She acknowledges that she was only getting 0.2 mg of Dilaudid IV, but states that this was the only thing helping "keep the headaches under control". She states that this does not feel like the headaches that she had prior to the shunt. Headaches are not positional. 11/05: This afternoon the patient is on her cellphone when seen. She complains of mid left anterolateral abdominal wall pain at the shunt that started today. She also continues to have a headache and states it feels "crappy." She does more fully participate in motor testing and her strength is essentially normal. 11/06: When initially seen this morning the patient is all smiles and has a therapy dog laying on her bed with her. After the therapy dog leaves her affect becomes flat and depressed. She complains of abdominal pain at her shunt that is severe. She did say it improved some but has gotten worse. She also says her headache is "so-so" but does say it is better than yesterday. The patient is tender to the left abdominal wall at the surgical wound when evaluated. <Chandrakant Yeung - Last Filed: 11/06/17 11:13> Interval history: The exam, history, and the medical decision-making described in the above note were completed with the assistance of the mid-level provider. I reviewed and agree with the findings presented. I attest that I had a [id number] encounter with the patient on the same day, and personally performed and documented my assessment and findings in the medical record. Patient resting quietly when seen later in the evening. Records reviewed. Presently no evidence of definite shunt infection or bacterial meningitis. Possible aseptic meningitis. Review abdominal x-ray regarding shunt setting. Continue therapy Wean pain medications. <Mamadou Cerrato - Last Filed: 11/06/17 21:16> Physical Exam Vital signs: Vital Signs 11/05/17 12:00 11/05/17 16:00 11/05/17 20:00 Temperature 97.8 F 98.2 F 98.6 F Pulse Rate 66 72 70 Respiratory Rate 19 19 20 Blood Pressure 107/55 L 109/60 110/60 Pulse Oximetry 98 98 95 11/06/17 00:00 11/06/17 04:00 11/06/17 08:00 Temperature 98 F 98 F 98.1 F Pulse Rate 68 64 52 L Respiratory Rate 20 20 14 Blood Pressure 116/68 116/59 L Pulse Oximetry 97 96 100 Intake & Output 11/05/17 11/06/17 11/06/17 18:59 06:59 18:59 Intake Total 320 / 320 Balance 320 / 320 Intake: Oral 320 / 320 Other: Date of Last Bowel Movement 11/03/17 11/03/17 Narrative: GENERAL: Awake & petting a therapy dog laying on the bed with her. Affect initially normal but becomes flat & depressed when the therapy dog leaves. She does readily interact. No apparent distress. HEENT: Normocephalic, atraumatic. GASTROINTESTINAL: Abdomen soft, left anterolateral abdominal wall mildly TTP at the surgical incision which has thickened scar tissue under. The tenderness extends superiorly and laterally for several centimeters. MUSCULOSKELETAL: HOUSE spontaneously & purposefully. NEUROLOGICAL: AAOx3. Speech clear & appropriate. Follows simple commands w/o difficulty. Sensation intact to all extremities. HOUSE spontaneously & purposefully. Motor strength is 5/5 to right side and 4+/5 to left side extremities. <Chandrakant Yeung E - Last Filed: 11/06/17 11:13> Vital signs: Vital Signs 11/06/17 00:00 11/06/17 04:00 11/06/17 08:00 Temperature 98 F 98 F 98.1 F Pulse Rate 68 64 52 L Respiratory Rate 20 20 14 Blood Pressure 116/68 116/59 L Pulse Oximetry 97 96 100 11/06/17 12:00 11/06/17 18:25 11/06/17 20:00 Temperature 98.4 F 98 F Pulse Rate 59 L 70 Respiratory Rate 12 20 20 Blood Pressure 116/60 107/51 L Pulse Oximetry 98 96 Intake & Output 11/06/17 11/06/17 11/07/17 06:59 18:59 06:59 Intake Total 320 / 320 240 / 240 Balance 320 / 320 240 / 240 Intake: Oral 320 / 320 240 / 240 Other: # Voids 1 Date of Last Bowel Movement 11/03/17 11/03/17 <Mamadou Cerrato - Last Filed: 11/06/17 21:16> Assessment and Plan - Assessment (1) Severe headache Code(s): R51 - Headache Status: Acute (2) Hx: meningitis Code(s): Z86.61 - Personal history of infections of the central nervous system Status: Acute (3) Acute intractable headache Code(s): R51 - Headache Status: Acute Qualifiers: Headache type: unspecified Qualified Code(s): R51 - Headache - Plan Impression: Persistent headaches. Status post lumboperitoneal shunt for idiopathic intracranial hypertension Possible aseptic meningitis. Patient continues w/abdominal pain she reports as severe. Her headache persists but has improved. Her motor strength is essentially normal. Past 24 hrs: Afebrile. Blood, urine and CSF all w/o growth. "11/02/2017 MRI of the brain and entire spine images reviewed by the undersigned. No significant abnormalities noted. Note evidence of inflammatory disease on noncontrast imaging." - Dr Cerrato at 1845 Plan: Primary management per Hospitalist. Neuro checks. <Chandrakant Yeung - Last Filed: 11/06/17 11:13> - Assessment (1) Severe headache Code(s): R51 - Headache Status: Acute (2) Hx: meningitis Code(s): Z86.61 - Personal history of infections of the central nervous system Status: Acute (3) Acute intractable headache Code(s): R51 - Headache Status: Acute Qualifiers: Headache type: unspecified Qualified Code(s): R51 - Headache <Mamadou Cerrato - Last Filed: 11/06/17 21:16>
[2017-11-06] MEDS: Methocarbamol 500 MG Tablet PO SCH ×3 (12:09→20:49)
[2017-11-06 15:41] LABS: Baso # (Auto) 0.1 th/mm3 (0.0-0.2); Baso % (Auto) 0.6 % (0.0-2.0); Eos # (Auto) 0.1 th/mm3 (0.0-0.4); Eos % (Auto) 1.5 % (0.0-4.0); Hematocrit 36.3 % (35.0-46.0); Hemoglobin 11.7 gm/dL (11.6-15.3); Lymph # (Auto) 3.3 th/mm3 (1.0-4.8); Lymph % (Auto) 36.5 % (9.0-44.0); Mean Corpuscular HGB Conc 32.3 % (32.0-36.0); Mean Corpuscular Hemoglobin 25.6 pg (27.0-34.0); Mean Corpuscular Volume 79.3 fL (80.0-100.0); Mean Platelet Volume 8.3 fL (7.0-11.0); Mono # (Auto) 0.6 th/mm3 (0.0-0.9); Mono % (Auto) 6.7 % (0.0-8.0); Neut # (Auto) 4.9 th/mm3 (1.8-7.7); Neut % (Auto) 54.7 % (16.0-70.0); Platelet Count 336 th/mm3 (150-450); Red Blood Count 4.57 mil/mm3 (4.00-5.30); Red Cell Distribution Width 16.1 % (11.6-17.2); White Blood Count 8.9 th/mm3 (4.0-11.0)
[2017-11-06] MEDS: Polyethylene Glycol 3350 17 GM Packet PO SCH (18:26)
[2017-11-06] MEDS: Nystatin 100,000 UNITS/GM Powder 15 GM Bottle TOPICAL SCH ×2 (18:26→18:27)
[2017-11-06] MEDS ORDERED: Morphine Sulfate Inj 2 MG/ML Vial IV.PUSH ONE (21:06)
[2017-11-07] MEDS: Methocarbamol 500 MG Tablet PO SCH (01:25)
[2017-11-07] MEDS: Nystatin 100,000 UNITS/GM Powder 15 GM Bottle TOPICAL SCH ×2 (02:20→08:08)
[2017-11-07] MEDS ORDERED: Morphine Inj 4 MG/ML Vial IV.PUSH ONE (02:25)
[2017-11-07] MEDS: FLUoxetine 10 MG Capsule PO SCH (08:05)
[2017-11-07] MEDS: Topiramate 100 MG Tablet PO SCH (08:05)
[2017-11-07] MEDS: Polyethylene Glycol 3350 17 GM Packet PO SCH (12:16)
--- NOTE | 2017-11-07 15:41 | P.DS ---
Date of admission: 10/28/17 01:11 Primary care physician: UNKNOWN Brief History from admission: Written by Tristian Solorzano, acting as scribe for Dr. Lee on 10/28/17 at 18:36. Patient is a 32-year-old female with primary medical history of chronic headaches, pseudotumors cerebri who initially came to the hospital for complaints of severe headache and neck pain 2 days. Patient states that she felt that her head is being compressed and also that everything is tilted sideways. Reports she is unable to walk straight and has to be guided by her because of "feeling tilted." States she has been very 2 days ago 103 but she took Tylenol and break off to fever, yesterday states that she also has a fever prior to coming to the hospital at 101 but it broke off after taking some Tylenol and cooling herself off. Patient states she has meningitis about 2 weeks ago but reports no exposure to anyone who is sick. States that it almost felt the same with headaches throughout her head and spine area, constant , rated 8/10, feeling compressed, does not know what aggravates or relieves them headache. Otherwise, denies SOB/ dyspnea. Denies chest pain, palpitations , headaches, dizziness. Denies chills. Reports nausea, vomiting. Denies abdominal pain or discomfort. Denies hematuria, dysuria. Reports polyuria, poor appetite. DS: Diagnosis - Discharge Diagnosis (1) Severe headache Status: Acute (2) Hx: meningitis Status: Acute DS: Medications - Discharge Medications Prescriptions: nystatin [Nystop] 1 applicatio TOPICAL QID #120 g DS: Summary Hospital Course: Patient is a 32-year-old female with primary medical history of chronic headaches, pseudotumors cerebri who initially came to the hospital for complaints of severe headache and neck pain 2 days. Severe headache, reports fevers and chills at home. Resolved fever and chills but persistent DELCID. History of meningitis, pseudotumor cerebri and chronic headaches. Suspect aseptic meningitis/viral meningitis. Improving DELCID ct supportive tx -Status post LP on 10/30, CSF with mild elevated WBC at 273 with a lymphocytosis.? Aseptic meningitis. Appreciate IDs recommendation. Follow up neurosurgery recommendations. Ct Percocet which she takes at home. Counseled regarding narcotic. Follow-up CSF studies negative to date pending Lyme disease screen. Blood cultures negative to date. Unremarkable brain, cervical, thoracic and lumbar spine. May need shunt eval will defer to NS LLQ abd pain/tenderness where she has [employer] shunt. F/u CBC unremarkable. No evidence of infection. Per NS Nausea, vomitingimproved continue Zofran Vertigo. Stable. Continue meclizine, Zofran. Fall precautions. Consult physical therapy. O/P vestibular tx Tinea corporis. Nystatin powder. LMP 10/23/17 DVT prop SCDs - Time Spent with Patient Total time spent providing and/or coordinating discharge services: - Quality: VTE Deep Vein Thrombosis/Pulmonary Embolism Present on Admission: No Exam Vital signs: Vital Signs 11/06/17 18:25 11/06/17 20:00 11/07/17 00:00 Temperature 98 F 97.7 F Pulse Rate 70 68 Respiratory Rate 20 20 20 Blood Pressure 107/51 L 105/67 Pulse Oximetry 96 98 11/07/17 04:00 11/07/17 08:00 11/07/17 12:16 Temperature 97.8 F 98.2 F Pulse Rate 60 52 L Respiratory Rate 20 14 20 Blood Pressure 107/52 L 120/73 Pulse Oximetry 98 100 Intake & Output 11/06/17 11/07/17 11/07/17 18:59 06:59 18:59 Intake Total 240 / 240 1140 / 1140 Balance 240 / 240 1140 / 1140 Intake: Oral 240 / 240 1140 / 1140 Other: # Voids 1 1 Date of Last Bowel Movement 11/03/17 11/03/17 11/07/17 Narrative: GENERAL: Awake & on cellphone when seen. Affect fairly normal, readily interacts. No apparent distress. Neck Supple GASTROINTESTINAL: Abdomen soft, left anterolateral abdominal wall mildly TTP approximately 5 cm above the surgical wound which is well healed. No signs of infection MUSCULOSKELETAL: HOUSE spontaneously & purposefully. NEUROLOGICAL: AAOx3. Nonfocal Results Procedures completed during hospitalization: LP Labs on day of discharge: Labs from last 24 hours 11/06/17 11/02/17 14:37 15:24 WBC 8.9 RBC 4.57 Hgb 11.7 Hct 36.3 MCV 79.3 L MCH 25.6 L MCHC 32.3 RDW 16.1 Plt Count 336 D MPV 8.3 Neut % (Auto) 54.7 Lymph % (Auto) 36.5 [place] % (Auto) 6.7 Eos % (Auto) 1.5 Baso % (Auto) 0.6 Neut # (Auto) 4.9 Lymph # (Auto) 3.3 [place] # (Auto) 0.6 Eos # (Auto) 0.1 Baso # (Auto) 0.1 WBC Differential . Differential Comment Auto diff final Lyme Disease DNA (PCR) Not detected Preliminary micro results at discharge 10/30/17 09:50 Fungal Culture - Preliminary Cerebral Spinal Fluid - Lumbar Puncture No growth in 1 week - Impressions ITS Impressions Chest X-Ray 10/27/17 21:29 CONCLUSION: Mild commentated cardiomegaly without infiltrate or failure. Head CT 10/28/17 00:00 CONCLUSION: 1. Negative noncontrast CT brain, unchanged from 10/05/2017. Lumbar Puncture Fluoroscopy 10/30/17 01:13 CONCLUSION: 1. Uncomplicated fluoroscopically guided lumbar puncture. Cervical Spine MRI 11/02/17 00:00 CONCLUSION: 1. Minimal degenerative changes at C5-6 otherwise normal MRI cervical spine Head MRI 11/02/17 00:00 CONCLUSION: 1. Unremarkable MRI brain. Lumbar Spine MRI 11/02/17 00:00 CONCLUSION: 1. Unremarkable MRI lumbar spine. Thoracic Spine MRI 11/02/17 00:00 CONCLUSION: 1. Mild broad-based disc bulge T12-L1. No canal stenosis. 2. Otherwise unremarkable thoracic spine. Abdomen X-Ray 11/04/17 00:00 CONCLUSION: Catheter valve set at 130 mm of water. Discharge Plan - Discharge Disposition Patient Disposition: Discharge Home - Discharge Condition Condition: Stable - Discharge Order Discharge Orders: Discharge Order (Routine); Ordered 11/07/17 Ordered By: Danyel Baird - Physicians Team Primary Care Provider: UNKNOWN, Attending Provider: Danyel Baird Other Providers: Mamadou Cerrato MD ; Dulce Maria Magaña MD ; Antonio Haddad MD, PhD
== END 2017-11-07 12:22 | disposition home or self-care (01) ==
LOC: NEPE 20:38 → NEDA 20:38 → NEPGCP 10-28 02:04 → N03 10-28 12:18
PROVIDERS: ADMIT Internal Medicine; ATTEND Internal Medicine

== ENCOUNTER 2018-02-27 18:50 | Observation (INO) ==
[2018-02-27] MEDS ORDERED: Morphine Sulfate Inj 8 MG/ML Vial IV.PUSH ONE ×2 (21:19→23:46)
--- NOTE | 2018-02-27 22:21 | ED ---
HPI General Chief Complaint: Headache Stated Complaint: headache, eyes Time Seen by Provider: 02/27/18 20:58 Source: patient Mode of arrival: ambulatory Limitations: no limitations History of Present Illness HPI Narrative: 33-year-old female came to the emergency room with history of headache and left eye pain. Patient is extremely well-known to the department. She comes to the emergency room with the same complain almost once to twice a week. She has been diagnosed with pseudotumor cerebri. Recently had a lumbar shunt put in and then taken out secondary to aseptic meningitis. Patient tells me that she has gone to [facility] where the discussion for a SIDE PIECE [employer] shunt is on the way. Meanwhile patient continues to have the headaches. She is on acetazolamide and Topamax prescribed by Dr. Haddad who used to be her neurologist for her condition. Patient says she has been taking them like she supposed to but it does not relieve her headaches. She says she has been dizzy and nauseous. No history of vomiting. Vital signs are stable. Patient says her symptoms are exactly similar to her previous symptoms. No aggravating or relieving symptoms. Patient however prefers to keep the light dimmed in her room. Complaint: Reports headache Onset (ago): day(s) (1) Onset description: gradual Location: Reports left Severity: severe Severity scale (1-10): 10 Quality: Reports throbbing Relieving factors: nothing Exacerbating factors: none Related Data Home Medications Medication Instructions Recorded Confirmed methocarbamol [Robaxin-750] 750 mg PO TID 10/27/17 02/27/18 topiramate [Topamax] 100 mg PO TID 10/27/17 02/27/18 meclizine 25 mg PO Q4HR 10/28/17 02/27/18 acetazolamide 500 mg PO TID 01/06/18 02/27/18 furosemide [Lasix] 40 mg PO BID 01/06/18 02/27/18 metformin 500 mg PO BID 01/06/18 02/27/18 potassium chloride 20 meq PO DAILY 01/06/18 02/27/18 ondansetron [Zofran ODT] 4 mg PO TID PRN 01/28/18 02/27/18 Previous Rx's Medication Instructions Recorded butalbital-acetaminophen 1 tab PO Q4-6H PRN #12 tab 01/30/18 metoclopramide HCl [Reglan] 5 mg PO TID PRN #10 tab 02/08/18 Allergies Allergy/AdvReac Type Severity Reaction Status Date / Time amoxicillin Allergy Severe Anaphylaxis Verified 02/23/18 10:39 ketorolac Allergy Severe Anaphylaxis Verified 02/23/18 10:39 Sulfa (Sulfonamide Allergy Severe RASH Verified 02/23/18 10:39 Antibiotics) ibuprofen Allergy Intermediate HIVES, Verified 02/23/18 10:39 FACIAL SWELLING. latex Allergy Intermediate Hives Verified 02/23/18 10:39 penicillin G Allergy Intermediate HIVES Verified 02/23/18 10:39 prochlorperazine Allergy Intermediate HIVES Verified 02/23/18 10:39 tramadol Allergy Intermediate HIVES Verified 02/23/18 10:39 sumatriptan AdvReac Severe VOMITING Verified 02/23/18 10:39 PASSED OUT Review of Systems ROS: all other systems reviewed are negative [facility] Medical History Medical History Asthma (Acute) Bacterial meningitis (Acute) Diabetes (Acute) Seizures (Acute) Pseudotumor cerebri (Chronic) delivery delivered (Resolved) Surgical History Surgical History History of renal stent (Inactive) Status post lumboperitoneal shunt placement (Inactive) Social History Social History Substance History: No History of Abuse Second Hand Smoke Exposure: Yes Smoking Status: Smoker, status unknown Tobacco Type: Cigarettes How Often Do You Have a Drink Containing Alcohol: Never Recent Travel in [facility] within the Last 8 Weeks: No Recent Out of Country Travel within the Last 8 Weeks: No Immunization History Tetanus Immunization: Unsure Exam Narrative Exam Narrative: GENERAL: Awake, alert, morbidly obese, moderate distress SKIN: Focused skin assessment warm/dry. HEAD: Atraumatic. Normocephalic. EYES: Pupils equal and round. No scleral icterus. No injection or drainage. ENT: No nasal bleeding or discharge. Mucous membranes pink and moist. NECK: Trachea midline. No JVD. CARDIOVASCULAR: Regular rate and rhythm. No murmur appreciated. RESPIRATORY: No accessory muscle use. Clear to auscultation. Breath sounds equal bilaterally. GASTROINTESTINAL: Abdomen soft, non-tender, nondistended. Hepatic and splenic margins not palpable. MUSCULOSKELETAL: No obvious deformities. No clubbing. No cyanosis. No edema. NEUROLOGICAL: Awake and alert. No obvious cranial nerve deficits. Motor grossly within normal limits. Normal speech. PSYCHIATRIC: Appropriate mood and affect; insight and judgment normal. Course Initial Documented Vital Signs Temperature 98.6 F 02/27/18 19:04 Pulse Rate 86 02/27/18 19:04 Respiratory Rate 18 02/27/18 19:04 Blood Pressure 174/110 H 02/27/18 19:04 Pulse Oximetry 100 02/27/18 19:04 Last Documented Vital Signs Temperature 98.7 F 02/28/18 08:00 Pulse Rate 75 02/28/18 08:00 Respiratory Rate 16 02/28/18 08:00 Blood Pressure 107/71 02/28/18 08:00 Pulse Oximetry 97 02/28/18 08:00 Medical Decision Making MDM Narrative Medical decision making narrative: 10:28 PM awaiting for the blood test results. I have ordered IV pain medication nausea medication for the patient. She will be discharged home if the test results are within normal limits. 11:51 PM I have ordered a second dose of pain medication since patient says that her pain is coming back. Blood test results are still pending. 12:58 AM patient's blood test results are back and her CRP and sed rate are elevated compared to the last. Given her history of aseptic meningitis in the past I would like her to be admitted for an IR guided lumbar puncture. I will give her a dose of Rocephin and vancomycin. Blood culture has been ordered. Medical Screen Exam Complete: Yes Emergency Medical Condition: Yes Lab Data Result diagrams: 02/27/18 23:45 02/27/18 23:45 Lab Results 02/27/18 02/27/18 02/27/18 Range/Units 23:45 23:45 23:45 WBC 10.9 (4.0-11.0) th/mm3 RBC 4.15 (4.00-5.30) mil/mm3 Hgb 11.7 (11.6-15.3) gm/dL Hct 35.7 (35.0-46.0) % MCV 86.1 (80.0-100.0) fL MCH 28.1 (27.0-34.0) pg MCHC 32.7 (32.0-36.0) % RDW 14.0 (11.6-17.2) % Plt Count 301 (150-450) th/mm3 MPV 8.3 (7.0-11.0) fL Neut % (Auto) 57.4 (16.0-70.0) % Lymph % (Auto) 32.5 (9.0-44.0) % [place] % (Auto) 7.5 (0.0-8.0) % Eos % (Auto) 1.7 (0.0-4.0) % Baso % (Auto) 0.9 (0.0-2.0) % Neut # (Auto) 6.3 (1.8-7.7) th/mm3 Lymph # (Auto) 3.6 (1.0-4.8) th/mm3 [place] # (Auto) 0.8 (0.0-0.9) th/mm3 Eos # (Auto) 0.2 (0.0-0.4) th/mm3 Baso # (Auto) 0.1 (0.0-0.2) th/mm3 WBC Differential . Differential Comment Auto diff final ESR 33 H (0-20) mm/hr Sodium 142 (136-145) meq/L Potassium 3.4 L (3.5-5.1) meq/L Chloride 107 (98-107) meq/L Carbon Dioxide 29.0 (21.0-32.0) meq/L Anion Gap 6 (5-15) meq/L BUN 12 (7-18) mg/dL Creatinine 0.67 (0.50-1.00) mg/dL Estimated GFR Greater than 89 (>89) mL/min POC Glucose (68-110) mg/dl Random Glucose 79 (74-106) mg/dL Hemoglobin A1c (4.3-6.0) % Calcium 8.3 L (8.5-10.1) mg/dL Total Bilirubin 0.3 (0.2-1.0) mg/dL AST 10 L (15-37) U/L ALT 23 (10-53) U/L Alkaline Phosphatase 93 (45-117) U/L C-Reactive Protein 1.30 H (0.00-0.30) mg/dL Total Protein 7.2 (6.4-8.2) g/dL Albumin 3.2 L (3.4-5.0) g/dL TSH (0.358-3.740) uIU/mL 02/28/18 02/28/18 02/28/18 Range/Units 06:41 06:41 08:54 WBC (4.0-11.0) th/mm3 RBC (4.00-5.30) mil/mm3 Hgb (11.6-15.3) gm/dL Hct (35.0-46.0) % MCV (80.0-100.0) fL MCH (27.0-34.0) pg MCHC (32.0-36.0) % RDW (11.6-17.2) % Plt Count (150-450) th/mm3 MPV (7.0-11.0) fL Neut % (Auto) (16.0-70.0) % Lymph % (Auto) (9.0-44.0) % [place] % (Auto) (0.0-8.0) % Eos % (Auto) (0.0-4.0) % Baso % (Auto) (0.0-2.0) % Neut # (Auto) (1.8-7.7) th/mm3 Lymph # (Auto) (1.0-4.8) th/mm3 [place] # (Auto) (0.0-0.9) th/mm3 Eos # (Auto) (0.0-0.4) th/mm3 Baso # (Auto) (0.0-0.2) th/mm3 WBC Differential Differential Comment ESR (0-20) mm/hr Sodium (136-145) meq/L Potassium (3.5-5.1) meq/L Chloride (98-107) meq/L Carbon Dioxide (21.0-32.0) meq/L Anion Gap (5-15) meq/L BUN (7-18) mg/dL Creatinine (0.50-1.00) mg/dL Estimated GFR (>89) mL/min POC Glucose 107 (68-110) mg/dl Random Glucose (74-106) mg/dL Hemoglobin A1c 5.4 (4.3-6.0) % Calcium (8.5-10.1) mg/dL Total Bilirubin (0.2-1.0) mg/dL AST (15-37) U/L ALT (10-53) U/L Alkaline Phosphatase (45-117) U/L C-Reactive Protein (0.00-0.30) mg/dL Total Protein (6.4-8.2) g/dL Albumin (3.4-5.0) g/dL TSH 1.960 (0.358-3.740) uIU/mL Discharge Plan Discharge Disposition Patient Disposition: 07 Against Medical Advice Discharge Condition Condition: Fair Discharge Order Discharge Orders: AMA Discharge (Routine); Ordered 03/02/18 Ordered By: Stephen Barksdale Discharge Order (Routine); Ordered 02/28/18 Ordered By: Ang Shelton Discharge Details Anticipated Discharge Date: 02/28/18 Discharge Comment: LEFT AMA Physicians Team ED Provider: Stephen Barksdale Primary Care Provider: UNKNOWN, Attending Provider: Ang Shelton Other Providers: Terri Mukherjee ; [facility],Insurance Status ED Status: Left Department Discharge Information Discharge Date/Time: 02/28/18 04:04
[2018-02-27] MEDS ORDERED: Sodium Chlor 0.9% Inj 500 ML IV.SIG SCH (23:00)
[2018-02-27 23:52] LABS: Baso # (Auto) 0.1 th/mm3 (0.0-0.2); Baso % (Auto) 0.9 % (0.0-2.0); Eos # (Auto) 0.2 th/mm3 (0.0-0.4); Eos % (Auto) 1.7 % (0.0-4.0); Hematocrit 35.7 % (35.0-46.0); Hemoglobin 11.7 gm/dL (11.6-15.3); Lymph # (Auto) 3.6 th/mm3 (1.0-4.8); Lymph % (Auto) 32.5 % (9.0-44.0); Mean Corpuscular HGB Conc 32.7 % (32.0-36.0); Mean Corpuscular Hemoglobin 28.1 pg (27.0-34.0); Mean Corpuscular Volume 86.1 fL (80.0-100.0); Mean Platelet Volume 8.3 fL (7.0-11.0); Mono # (Auto) 0.8 th/mm3 (0.0-0.9); Mono % (Auto) 7.5 % (0.0-8.0); Neut # (Auto) 6.3 th/mm3 (1.8-7.7); Neut % (Auto) 57.4 % (16.0-70.0); Platelet Count 301 th/mm3 (150-450); Red Blood Count 4.15 mil/mm3 (4.00-5.30); White Blood Count 10.9 th/mm3 (4.0-11.0)
[2018-02-28 00:22] LABS: Albumin 3.2 g/dL (3.4-5.0); Anion Gap 6 meq/L (5-15); Aspartate Aminotransferase 10 U/L (15-37); Blood Urea Nitrogen 12 mg/dL (7-18); Calcium 8.3 mg/dL (8.5-10.1); Chloride 107 meq/L (98-107); Glomerular Filtration Rate Greater Than 89 mL/min (>89); Glucose,Random 79 mg/dL (74-106); Potassium 3.4 meq/L (3.5-5.1); Sodium 142 meq/L (136-145)
[2018-02-28 00:23] LABS: Alanine Aminotransferase 23 U/L (10-53)
[2018-02-28 00:25] LABS: Alkaline Phosphatase 93 U/L (45-117); Total Protein 7.2 g/dL (6.4-8.2)
[2018-02-28] MEDS ORDERED: Vancomycin Inj 1 GM/200 ML PIGGYBACK IV.SIG ONE (01:00)
[2018-02-28] MEDS ORDERED: Morphine Sulfate Inj 2 MG/ML Vial IM ONE (01:08)
[2018-02-28] MEDS ORDERED: Morphine Inj 4 MG/ML Vial IV.PUSH PRN (01:28)
[2018-02-28] MEDS ORDERED: Bisacodyl 10 MG Supp RECTAL PRN (01:31)
[2018-02-28] MEDS ORDERED: Acetaminophen 325 MG Tablet PO PRN (01:31)
[2018-02-28] MEDS ORDERED: Dextrose 50% in Water 50 ML Vial IV.PUSH PRN (01:35)
[2018-02-28] MEDS ORDERED: HYDROmorphone PF Inj 1 MG/ML Ampul IV.PUSH ONE (02:00)
--- NOTE | 2018-02-28 02:03 | P.HPIM ---
History of Present Illness Primary Care Physician: UNKNOWN History of Present Illness: This is a 33-year-old female with a PMH of Pseudotumor Cerebri, h/o Aseptic Meningitis and DM who presented to the ER w/ complaints of headache and generalized joint pain. Pt well known to the ER for multiple presentations due to intractable headache from Pseudotumor, normally able to be controlled in the ER. Today, however pt reports "something's not right", notes generalized fatigue and significant joint pain in hands and feet. No neck pain/stiffness, no fever, no chills. Previous h/o Shunt placement in July 2017, s/p removal and replacement in August for shunt malfunction, states she was later admitted to in November 2017 and diagnosed w/ aseptic meningitis at which time shunt was removed. Has been seeing Dr. Boo siddiqi/ Neurology as outpatient, plans for eval in [place] for possible shunt replacement. On arrival, BP 174/110, HR 86, O2 sat 100% on RA, Afebrile. CBC unremarkable. ESR 33. Chemistry essentially unremarkable. CRP 1.3. IR consulted by ER physician for LP. S/p multiple doses of Morphine IV w/ minimal improvement. - Diagnosis (1) Intractable headache (2) Pseudotumor cerebri (3) Joint pain (4) DM (diabetes mellitus) Review of Systems PAST FAMILY HISTORY: Reviewed. No h/o DM or CAD All other systems reviewed negative except as stated in HPI PMFSH - History History Provided By: Patient - Medical History Medical History: Medical History (Last Reviewed 02/27/18 @ 22:19 by Stephen Barksdale MD) Asthma Bacterial meningitis Diabetes Seizures Pseudotumor cerebri delivery delivered - Surgical History Surgical History: Surgical History (Last Reviewed 02/27/18 @ 22:19 by Stephen Barksdale MD) History of renal stent Status post lumboperitoneal shunt placement - Tobacco History Second Hand Smoke Exposure: Yes Tobacco Use In Past 30 Days: Yes Smoking Status: Current every day smoker Tobacco Type: Cigarettes - Alcohol History How Often Do You Have a Drink Containing Alcohol: Never - Substance Use History Substance History: No History of Abuse - Travel History Recent Travel in the [place] Within the Last 8 Weeks: No Recent Travel Out of the Country Within the Last 8 Weeks: No - Immunization History Tetanus Immunization: Unsure Medications and Allergies Active Medications: Active Medications Acetaminophen (Tylenol) 650 mg PO Q4H PRN PRN Reason: Temp > 100.4 Acetazolamide (Diamox Sequels) 500 mg PO TID [facility] Al Hydroxide/Mg Hydroxide (Milk Of Magnesia Liq) 30 ml PO Q12H PRN PRN Reason: Mild Constipation Bisacodyl (Dulcolax Supp) 10 mg RECTAL DAILY PRN PRN Reason: SEVERE CONSITIPATION Dextrose (D50w Vial) 50 ml IV.PUSH UNSCH PRN PRN Reason: PER HYPOGLYCEMIA PROTOCOL Furosemide (Lasix) 40 mg PO BID SANDY Glucagon (Glucagon Inj) 1 mg OTHER PRN PRN PRN Reason: for Hypoglycemia Protocol Hydromorphone HCl (Dilaudid Pf Inj) 1 mg IV.PUSH ONCE ONE Stop: 02/28/18 02:01 Vancomycin/Sodium Chloride (Vancomycin Inj) 1 gm in 200 mls @ 200 mls/hr IV.SIG ONCE ONE Stop: 02/28/18 01:59 Insulin Aspart (Novolog Insulin Correctional Sugar Inj) 0 unit SQ ACHS SANDY; Protocol Lactulose (Lactulose Liq) 30 ml PO DAILY PRN PRN Reason: SEVERE CONSITIPATION Methocarbamol (Robaxin) 750 mg PO TID [facility] Morphine Sulfate (Morphine Inj) 4 mg IV.PUSH Q4H PRN PRN Reason: PAIN 6-10 Ondansetron HCl (Zofran Inj) 4 mg IV.PUSH Q6H PRN PRN Reason: NAUSEA OR VOMITING Senna/Docusate Sodium (Yojana-Colace) 1 tab PO BID [facility] Sennosides (Senokot) 17.2 mg PO Q12H PRN PRN Reason: Moderate Constipation Topiramate (Topamax) 100 mg PO TID [facility] Allergies Allergy/AdvReac Type Severity Reaction Status Date / Time amoxicillin Allergy Severe Anaphylaxis Verified 02/23/18 10:39 ketorolac Allergy Severe Anaphylaxis Verified 02/23/18 10:39 Sulfa (Sulfonamide Allergy Severe RASH Verified 02/23/18 10:39 Antibiotics) ibuprofen Allergy Intermediate HIVES, Verified 02/23/18 10:39 FACIAL SWELLING. latex Allergy Intermediate Hives Verified 02/23/18 10:39 penicillin G Allergy Intermediate HIVES Verified 02/23/18 10:39 prochlorperazine Allergy Intermediate HIVES Verified 02/23/18 10:39 tramadol Allergy Intermediate HIVES Verified 02/23/18 10:39 sumatriptan AdvReac Severe VOMITING Verified 02/23/18 10:39 PASSED OUT Home Medications Medication Instructions Recorded Confirmed Type methocarbamol [Robaxin-750] 750 mg PO TID 10/27/17 02/27/18 History topiramate [Topamax] 100 mg PO TID 10/27/17 02/27/18 History meclizine 25 mg PO Q4HR 10/28/17 02/27/18 History acetazolamide 500 mg PO TID 01/06/18 02/27/18 History furosemide [Lasix] 40 mg PO BID 01/06/18 02/27/18 History metformin 500 mg PO BID 01/06/18 02/27/18 History potassium chloride 20 meq PO DAILY 01/06/18 02/27/18 History ondansetron [Zofran ODT] 4 mg PO TID PRN 01/28/18 02/27/18 History Exam Vital signs: Vital Signs 02/27/18 19:04 02/27/18 19:07 02/27/18 23:42 Temperature 98.6 F Pulse Rate 86 88 75 Respiratory Rate 18 20 18 Blood Pressure 174/110 H 172/98 H 108/61 Pulse Oximetry 100 98 100 02/27/18 23:59 Temperature Pulse Rate Respiratory Rate 18 Blood Pressure Pulse Oximetry Intake & Output 02/27/18 02/27/18 02/28/18 06:59 18:59 06:59 Weight 106.141 kg Narrative: PE: GENERAL: Young white female in mild distress due to symptoms SKIN: Focused skin assessment warm and dry. HEENT: PERRLA, EOMI. No scleral icterus or conjunctival pallor. No lid lag or facial droop. No neck rigidity. CARDIOVASCULAR: Regular rate and rhythm. No obvious murmurs to auscultation. No chest tenderness to palpation. RESPIRATORY: No obvious rhonchi or wheezing. Clear to auscultation. Breath sounds equal bilaterally. GASTROINTESTINAL: Abdomen soft, non-tender, nondistended. BS normal. MUSCULOSKELETAL: Extremities without clubbing, cyanosis, or edema. No obvious deformities. NEUROLOGICAL: Awake, alert and oriented x4. No focal neurologic deficits. Moving both upper and lower extremities spontaneously. PSYCHIATRIC: Appropriate mood and affect. Insight and judgment normal. Results - Labs CBC & Chem 7: 02/27/18 23:45 02/27/18 23:45 Labs: Short CBC 02/27/18 Range/Units 23:45 WBC 10.9 (4.0-11.0) th/mm3 Hgb 11.7 (11.6-15.3) gm/dL Hct 35.7 (35.0-46.0) % Plt Count 301 (150-450) th/mm3 BMP 02/27/18 23:45 Sodium 142 Potassium 3.4 L Chloride 107 Carbon Dioxide 29.0 BUN 12 Creatinine 0.67 Calcium 8.3 L Liver Function 02/27/18 Range/Units 23:45 Total Bilirubin 0.3 (0.2-1.0) mg/dL AST 10 L (15-37) U/L ALT 23 (10-53) U/L Alkaline Phosphatase 93 (45-117) U/L Albumin 3.2 L (3.4-5.0) g/dL Caprini VTE Risk Assessment Caprini VTE Risk Assessment: No/Low Risk (score <= 1) Caprini Risk Assessment Model: Point Value = 1 Point Value = 2 Point Value = 3 Point Value = 5 Age 41-60 Minor surgery BMI > 25 kg/m2 Swollen legs Varicose veins or History of unexplained or recurrent spontaneous Oral contraceptives or hormone replacement Sepsis (< 1 month) Serious lung disease, including pneumonia (< 1 month) Abnormal pulmonary function Acute myocardial infarction Congestive heart failure (< 1 month) History of inflammatory bowel disease Medical patient at bed rest Age 61-74 Arthroscopic surgery Major open surgery (> 45 min) Laparoscopic surgery (> 45 min) Malignancy Confined to bed (> 72 hours) Immobilizing plaster cast Central venous access Age >= 75 History of VTE Family history of VTE Factor V Leiden Prothrombin [id number] Lupus anticoagulant Anticardiolipin antibodies Elevated serum homocysteine Heparin-induced thrombocytopenia Other congenital or acquired thrombophilia Stroke (< 1 month) Elective arthroplasty Hip, pelvis, or leg fracture Acute spinal cord injury (< 1 month) Prophylaxis Regimen: Total Risk Factor Score Risk Level Prophylaxis Regimen 0-1 Low Early ambulation 2 Moderate Order ONE of the following: *Sequential Compression Device (SCD) *Heparin 5000 units SQ BID 3-4 Higher Order ONE of the following medications: *Heparin 5000 units SQ TID *Enoxaparin/Lovenox 40 mg SQ daily (WT < 150 kg, CrCl > 30 mL/min) *Enoxaparin/Lovenox 30 mg SQ daily (WT < 150 kg, CrCl > 10-29 mL/min) *Enoxaparin/Lovenox 30 mg SQ BID (WT < 150 kg, CrCl > 30 mL/min) AND/OR *Sequential Compression Device (SCD) 5 or more Highest Order ONE of the following medications: *Heparin 5000 units SQ TID (Preferred with Epidurals) *Enoxaparin/Lovenox 40 mg SQ daily (WT < 150 kg, CrCl > 30 mL/min) *Enoxaparin/Lovenox 30 mg SQ daily (WT < 150 kg, CrCl > 10-29 mL/min) *Enoxaparin/Lovenox 30 mg SQ BID (WT < 150 kg, CrCl > 30 mL/min) AND *Sequential Compression Device (SCD) Assessment and Plan - Assessment (1) Intractable headache Code(s): R51 - Headache Status: Acute (2) Pseudotumor cerebri Code(s): G93.2 - Benign intracranial hypertension Status: Acute (3) Joint pain Code(s): M25.50 - Pain in unspecified joint Status: Acute (4) DM (diabetes mellitus) Code(s): E11.9 - Type 2 diabetes mellitus without complications Status: Acute - Plan A/P: 1. Intractable Headache: secondary to underlying Pseudotumor, multiple ER presentations for same, s/p several doses of Morphine IV w/ minimal improvement. H/o aseptic meningitis in November 2017, no neck stiffness/rigidity , afebrile, s/p Vanc/Rocephin for empiric treatment in ER. Continue analgesics/ antiemetics. 2. Pseudotumor Cerebri: multiple ER presentations and LP's for above, previously underwent shunt placement w/ removal and replacement due to shunt malfunction in August 2017, had shunt removed again in Nov 2017 at due to aseptic meningitis per pt. Upcoming appt w/ [place] for possible shunt replacement. Will Consult Neurology for further eval, previously following w/ Dr. Haddad, continue home medications, analgesics/antiemetics as needed. Consult IR for LP-obtain opening pressure, CSF culture/gram stain, HSV, EBV, West Nile, Cell Count. 3. Joint Pain: c/o generalized fatigue and joint pain in bilateral upper and lower extremities, ESR/CRP elevated, possibly underlying vasculitis/autoimmune disorder, will check TSH, MARY, repeat ESR/CRP, await Neurology recommendations. 4. DM: Sliding scale w/ Accu-Cheks. Hold Metformin for now. Check Hgb A1c. 5. DVT Prophylaxis: SCD/Teds 6. Social work for d/c planning as needed. 7. Case discussed w/ ER physician at length, labs/records/imaging reviewed by me.
[2018-02-28] MEDS ORDERED: Vancomycin Inj 1,000 MG in Sodium Chlor 0.9% Inj 250 ML IV.SIG ONE (03:33)
[2018-02-28] MEDS ORDERED: Insulin NovoLOG Aspart Correctional Sugar Inj SQ SCH (08:00)
[2018-02-28 08:22] VITALS: BP 107/71; PULSE 75; RESP 16; TEMP 98.7; O2SAT 97
[2018-02-28] MEDS ORDERED: Topiramate 100 MG Tablet PO SCH (09:00)
[2018-02-28] MEDS ORDERED: Methocarbamol 500 MG Tablet PO SCH (09:00)
[2018-02-28] MEDS ORDERED: Senna/Docusate Sodium 8.6/50 MG Tablet PO SCH (09:00)
[2018-02-28] MEDS ORDERED: Furosemide 40 MG Tablet PO SCH (09:00)
--- NOTE | 2018-02-28 10:23 | P.PNIM ---
Subjective Interval history: This is a 33-year-old female with a PMH of Pseudotumor Cerebri, h/o Aseptic Meningitis and DM who presented to the ER w/ complaints of headache and generalized joint pain. Pt well known to the ER for multiple presentations due to intractable headache from Pseudotumor, normally able to be controlled in the ER. Today, however pt reports "something's not right", notes generalized fatigue and significant joint pain in hands and feet. No neck pain/stiffness, no fever, no chills. Previous h/o Shunt placement in July 2017, s/p removal and replacement in August for shunt malfunction, states she was later admitted to in November 2017 and diagnosed w/ aseptic meningitis at which time shunt was removed. Has been seeing Dr. Haddad w/ Neurology as outpatient, plans for eval in [place] for possible shunt replacement. On arrival, BP 174/110, HR 86, O2 sat 100% on RA, Afebrile. CBC unremarkable. ESR 33. Chemistry essentially unremarkable. CRP 1.3. IR consulted by ER physician for LP. S/p multiple doses of Morphine IV w/ minimal improvement. 02-28 PATIENT WAS SEEN BY ME AND THEN DECIDED TO GO AMA WAS NOT SEEN BY NEUROLOGY DID NOT HAVE LUMBAR PUNCTURE HAD NO ISSUES WITH HER VISION WHEN I TURNED THE LIGHTS ON IN THE ROOM NO RX WERE GIVEN LEFT AMA Physical Exam Vital signs: Vital Signs 02/27/18 19:04 02/27/18 19:07 02/27/18 23:42 Temperature 98.6 F Pulse Rate 86 88 75 Respiratory Rate 18 20 18 Blood Pressure 174/110 H 172/98 H 108/61 Pulse Oximetry 100 98 100 02/27/18 23:59 02/28/18 02:13 02/28/18 04:37 Temperature 98.2 F Pulse Rate 78 79 Respiratory Rate 18 18 17 Blood Pressure 109/57 L 137/74 Pulse Oximetry 100 99 02/28/18 08:00 Temperature 98.7 F Pulse Rate 75 Respiratory Rate 16 Blood Pressure 107/71 Pulse Oximetry 97 Intake & Output 02/27/18 02/28/18 02/28/18 18:59 06:59 18:59 Intake Total 850 / 850 Balance 850 / 850 Weight 106.141 kg Intake: IV 850 / 850 NS Inj 500 ML @ 1000 mls/hr IV. 500 / 500 SIG BOLUS SANDY Rx#:[id number] Vancomycin Inj 1,000 MG In NS 250 / 250 Inj 250 ML @ 250 mls/hr IV.SIG ONCE ONE Rx#:[id number] Rocephin Inj 2,000 MG In NS Inj 100 / 100 100 ML @ 200 mls/hr IV.SIG ONCE ONE Rx#:[id number] Narrative: PE: GENERAL: Young white female in NO distress due to symptoms SKIN: Focused skin assessment warm and dry. HEENT: PERRLA, EOMI. No scleral icterus or conjunctival pallor. No lid lag or facial droop. No neck rigidity. CARDIOVASCULAR: Regular rate and rhythm. No obvious murmurs to auscultation. No chest tenderness to palpation. RESPIRATORY: No obvious rhonchi or wheezing. Clear to auscultation. Breath sounds equal bilaterally. GASTROINTESTINAL: Abdomen soft, non-tender, nondistended. BS normal. OBESE MUSCULOSKELETAL: Extremities without clubbing, cyanosis, or edema. No obvious deformities. NEUROLOGICAL: Awake, alert and oriented x4. No focal neurologic deficits. Moving both upper and lower extremities spontaneously. PSYCHIATRIC: Appropriate mood and affect. Insight and judgment normal. Results - Labs CBC & Chem 7: 02/27/18 23:45 02/27/18 23:45 Laboratory Results - last 24 hr 02/27/18 02/27/18 02/27/18 23:45 23:45 23:45 WBC 10.9 RBC 4.15 Hgb 11.7 Hct 35.7 MCV 86.1 MCH 28.1 MCHC 32.7 RDW 14.0 Plt Count 301 MPV 8.3 Neut % (Auto) 57.4 Lymph % (Auto) 32.5 [place] % (Auto) 7.5 Eos % (Auto) 1.7 Baso % (Auto) 0.9 Neut # (Auto) 6.3 Lymph # (Auto) 3.6 [place] # (Auto) 0.8 Eos # (Auto) 0.2 Baso # (Auto) 0.1 WBC Differential . Differential Comment Auto diff final ESR 33 H Sodium 142 Potassium 3.4 L Chloride 107 Carbon Dioxide 29.0 Anion Gap 6 BUN 12 Creatinine 0.67 Estimated GFR Greater than 89 POC Glucose Random Glucose 79 Calcium 8.3 L Total Bilirubin 0.3 AST 10 L ALT 23 Alkaline Phosphatase 93 C-Reactive Protein 1.30 H Total Protein 7.2 Albumin 3.2 L TSH 02/28/18 02/28/18 06:41 08:54 WBC RBC Hgb Hct MCV MCH MCHC RDW Plt Count MPV Neut % (Auto) Lymph % (Auto) [place] % (Auto) Eos % (Auto) Baso % (Auto) Neut # (Auto) Lymph # (Auto) [place] # (Auto) Eos # (Auto) Baso # (Auto) WBC Differential Differential Comment ESR Sodium Potassium Chloride Carbon Dioxide Anion Gap BUN Creatinine Estimated GFR POC Glucose 107 Random Glucose Calcium Total Bilirubin AST ALT Alkaline Phosphatase C-Reactive Protein Total Protein Albumin TSH 1.960 - Procedures NONE Assessment and Plan - Assessment (1) Intractable headache Code(s): R51 - Headache Status: Acute (2) Pseudotumor cerebri Code(s): G93.2 - Benign intracranial hypertension Status: Acute (3) Joint pain Code(s): M25.50 - Pain in unspecified joint Status: Acute (4) DM (diabetes mellitus) Code(s): E11.9 - Type 2 diabetes mellitus without complications Status: Acute - Plan 1. Intractable Headache: secondary to underlying Pseudotumor, multiple ER presentations for same, s/p several doses of Morphine IV w/ minimal improvement. H/o aseptic meningitis in November 2017, no neck stiffness/rigidity , afebrile, s/p Vanc/Rocephin for empiric treatment in ER. Continue analgesics/ antiemetics. 2. Pseudotumor Cerebri: multiple ER presentations and LP's for above, previously underwent shunt placement w/ removal and replacement due to shunt malfunction in August 2017, had shunt removed again in Nov 2017 at due to aseptic meningitis per pt. Upcoming appt w/ [place] for possible shunt replacement. Will Consult Neurology for further eval, previously following w/ Dr. Haddad, continue home medications, analgesics/antiemetics as needed. Consult IR for LP-obtain opening pressure, CSF culture/gram stain, HSV, EBV, West Nile, Cell Count. --REFUSED TO STAY AND LEFT AMA 3. Joint Pain: c/o generalized fatigue and joint pain in bilateral upper and lower extremities, ESR/CRP elevated, possibly underlying vasculitis/autoimmune disorder, will check TSH, MARY, repeat ESR/CRP, await Neurology recommendations. -LEFT AMA 4. DM: Sliding scale w/ Accu-Cheks. Hold Metformin for now. Check Hgb A1c. 5. DVT Prophylaxis: SCD/Teds Code Status: FULL CODE Discussed Condition With: RN AND PT Discharge Planning: LEFT AMA
--- NOTE | 2018-02-28 10:24 | P.AMA ---
AMA Note - Diagnosis (1) Intractable headache (2) Pseudotumor cerebri (3) Joint pain (4) DM (diabetes mellitus) Recommended Treatment Course: FOLLOW UP WITH NEUROLOGY AND PAIN MANAGEMENT AMA Statement: Patient Latia Mayberry has decided to leave the hospital against medical advice. This patient has the capacity to refuse care and understands the risks of leaving, including permanent disability and/or , and has had an opportunity to ask questions about his/her condition. The patient has been informed that he/she may return for care at any time, and follow up has been arranged/advised. Discharge Disposition: Against Medical Advice Patient Condition on Discharge: Fair
--- NOTE | 2018-02-28 10:26 | P.DS ---
Date of admission: 02/28/18 02:42 Primary care physician: UNKNOWN Attending physician on discharge: Ang Shelton Anticipated date of discharge: 02/28/18 Brief History from admission: This is a 33-year-old female with a PMH of Pseudotumor Cerebri, h/o Aseptic Meningitis and DM who presented to the ER w/ complaints of headache and generalized joint pain. Pt well known to the ER for multiple presentations due to intractable headache from Pseudotumor, normally able to be controlled in the ER. Today, however pt reports "something's not right", notes generalized fatigue and significant joint pain in hands and feet. No neck pain/stiffness, no fever, no chills. Previous h/o Shunt placement in July 2017, s/p removal and replacement in August for shunt malfunction, states she was later admitted to in November 2017 and diagnosed w/ aseptic meningitis at which time shunt was removed. Has been seeing Dr. Boo siddiqi/ Neurology as outpatient, plans for eval in [place] for possible shunt replacement. On arrival, BP 174/110, HR 86, O2 sat 100% on RA, Afebrile. CBC unremarkable. ESR 33. Chemistry essentially unremarkable. CRP 1.3. IR consulted by ER physician for LP. S/p multiple doses of Morphine IV w/ minimal improvement. Patient update on day of discharge: This is a 33-year-old female with a PMH of Pseudotumor Cerebri, h/o Aseptic Meningitis and DM who presented to the ER w/ complaints of headache and generalized joint pain. Pt well known to the ER for multiple presentations due to intractable headache from Pseudotumor, normally able to be controlled in the ER. Today, however pt reports "something's not right", notes generalized fatigue and significant joint pain in hands and feet. No neck pain/stiffness, no fever, no chills. Previous h/o Shunt placement in July 2017, s/p removal and replacement in August for shunt malfunction, states she was later admitted to in November 2017 and diagnosed w/ aseptic meningitis at which time shunt was removed. Has been seeing Dr. Boo siddiqi/ Neurology as outpatient, plans for eval in [place] for possible shunt replacement. On arrival, BP 174/110, HR 86, O2 sat 100% on RA, Afebrile. CBC unremarkable. ESR 33. Chemistry essentially unremarkable. CRP 1.3. IR consulted by ER physician for LP. S/p multiple doses of Morphine IV w/ minimal improvement. 11-3 PATIENT WAS SEEN BY ME AND THEN DECIDED TO GO AMA WAS NOT SEEN BY NEUROLOGY DID NOT HAVE LUMBAR PUNCTURE HAD NO ISSUES WITH HER VISION WHEN I TURNED THE LIGHTS ON IN THE ROOM NO RX WERE GIVEN LEFT AMA DS: Diagnosis - Discharge Diagnosis (1) Intractable headache Status: Acute (2) Pseudotumor cerebri Status: Acute (3) Joint pain Status: Acute (4) DM (diabetes mellitus) Status: Acute DS: Summary Hospital Course: This is a 33-year-old female with a PMH of Pseudotumor Cerebri, h/o Aseptic Meningitis and DM who presented to the ER w/ complaints of headache and generalized joint pain. Pt well known to the ER for multiple presentations due to intractable headache from Pseudotumor, normally able to be controlled in the ER. Today, however pt reports "something's not right", notes generalized fatigue and significant joint pain in hands and feet. No neck pain/stiffness, no fever, no chills. Previous h/o Shunt placement in July 2017, s/p removal and replacement in August for shunt malfunction, states she was later admitted to in November 2017 and diagnosed w/ aseptic meningitis at which time shunt was removed. Has been seeing Dr. Haddad w/ Neurology as outpatient, plans for eval in [place] for possible shunt replacement. On arrival, BP 174/110, HR 86, O2 sat 100% on RA, Afebrile. CBC unremarkable. ESR 33. Chemistry essentially unremarkable. CRP 1.3. IR consulted by ER physician for LP. S/p multiple doses of Morphine IV w/ minimal improvement. 11-3 PATIENT WAS SEEN BY ME AND THEN DECIDED TO GO AMA WAS NOT SEEN BY NEUROLOGY DID NOT HAVE LUMBAR PUNCTURE HAD NO ISSUES WITH HER VISION WHEN I TURNED THE LIGHTS ON IN THE ROOM NO RX WERE GIVEN LEFT AMA - Time Spent with Patient Total time spent providing and/or coordinating discharge services: Less than 30 minutes - Quality: VTE Deep Vein Thrombosis/Pulmonary Embolism Present on Admission: No Exam Vital signs: Vital Signs 02/27/18 19:04 02/27/18 19:07 02/27/18 23:42 Temperature 98.6 F Pulse Rate 86 88 75 Respiratory Rate 18 20 18 Blood Pressure 174/110 H 172/98 H 108/61 Pulse Oximetry 100 98 100 02/27/18 23:59 02/28/18 02:13 02/28/18 04:37 Temperature 98.2 F Pulse Rate 78 79 Respiratory Rate 18 18 17 Blood Pressure 109/57 L 137/74 Pulse Oximetry 100 99 02/28/18 08:00 Temperature 98.7 F Pulse Rate 75 Respiratory Rate 16 Blood Pressure 107/71 Pulse Oximetry 97 Intake & Output 02/27/18 02/28/18 02/28/18 18:59 06:59 18:59 Intake Total 850 / 850 Balance 850 / 850 Weight 106.141 kg Intake: IV 850 / 850 NS Inj 500 ML @ 1000 mls/hr IV. 500 / 500 SIG BOLUS SANDY Rx#:[id number] Vancomycin Inj 1,000 MG In NS 250 / 250 Inj 250 ML @ 250 mls/hr IV.SIG ONCE ONE Rx#:[id number] Rocephin Inj 2,000 MG In NS Inj 100 / 100 100 ML @ 200 mls/hr IV.SIG ONCE ONE Rx#:[id number] Narrative: PE: GENERAL: Young white female in NO distress due to symptoms SKIN: Focused skin assessment warm and dry. HEENT: PERRLA, EOMI. No scleral icterus or conjunctival pallor. No lid lag or facial droop. No neck rigidity. CARDIOVASCULAR: Regular rate and rhythm. No obvious murmurs to auscultation. No chest tenderness to palpation. RESPIRATORY: No obvious rhonchi or wheezing. Clear to auscultation. Breath sounds equal bilaterally. GASTROINTESTINAL: Abdomen soft, non-tender, nondistended. BS normal. OBESE MUSCULOSKELETAL: Extremities without clubbing, cyanosis, or edema. No obvious deformities. NEUROLOGICAL: Awake, alert and oriented x4. No focal neurologic deficits. Moving both upper and lower extremities spontaneously. PSYCHIATRIC: Appropriate mood and affect. Insight and judgment normal. Results Procedures completed during hospitalization: NONE Completed studies during hospitalization: Laboratory Results WBC 10.9 th/mm3 (4.0-11.0) 02/27/18 23:45 RBC 4.15 mil/mm3 (4.00-5.30) 02/27/18 23:45 Hgb 11.7 gm/dL (11.6-15.3) 02/27/18 23:45 Hct 35.7 % (35.0-46.0) 02/27/18 23:45 MCV 86.1 fL (80.0-100.0) 02/27/18 23:45 MCH 28.1 pg (27.0-34.0) 02/27/18 23:45 MCHC 32.7 % (32.0-36.0) 02/27/18 23:45 RDW 14.0 % (11.6-17.2) 02/27/18 23:45 Plt Count 301 th/mm3 (150-450) 02/27/18 23:45 MPV 8.3 fL (7.0-11.0) 02/27/18 23:45 Neut % (Auto) 57.4 % (16.0-70.0) 02/27/18 23:45 Lymph % (Auto) 32.5 % (9.0-44.0) 02/27/18 23:45 [place] % (Auto) 7.5 % (0.0-8.0) 02/27/18 23:45 Eos % (Auto) 1.7 % (0.0-4.0) 02/27/18 23:45 Baso % (Auto) 0.9 % (0.0-2.0) 02/27/18 23:45 Neut # (Auto) 6.3 th/mm3 (1.8-7.7) 02/27/18 23:45 Lymph # (Auto) 3.6 th/mm3 (1.0-4.8) 02/27/18 23:45 [place] # (Auto) 0.8 th/mm3 (0.0-0.9) 02/27/18 23:45 Eos # (Auto) 0.2 th/mm3 (0.0-0.4) 02/27/18 23:45 Baso # (Auto) 0.1 th/mm3 (0.0-0.2) 02/27/18 23:45 WBC Differential . 02/27/18 23:45 Differential Comment Auto diff final 02/27/18 23:45 ESR 33 mm/hr (0-20) H 02/27/18 23:45 Sodium 142 meq/L (136-145) 02/27/18 23:45 Potassium 3.4 meq/L (3.5-5.1) L 02/27/18 23:45 Chloride 107 meq/L (98-107) 02/27/18 23:45 Carbon Dioxide 29.0 meq/L (21.0-32.0) 02/27/18 23:45 Anion Gap 6 meq/L (5-15) 02/27/18 23:45 BUN 12 mg/dL (7-18) 02/27/18 23:45 Creatinine 0.67 mg/dL (0.50-1.00) 02/27/18 23:45 Estimated GFR Greater than 89 mL/min (>89) 02/27/18 23:45 POC Glucose 107 mg/dl (68-110) 02/28/18 08:54 Random Glucose 79 mg/dL (74-106) 02/27/18 23:45 Calcium 8.3 mg/dL (8.5-10.1) L 02/27/18 23:45 Total Bilirubin 0.3 mg/dL (0.2-1.0) 02/27/18 23:45 AST 10 U/L (15-37) L 02/27/18 23:45 ALT 23 U/L (10-53) 02/27/18 23:45 Alkaline Phosphatase 93 U/L (45-117) 02/27/18 23:45 C-Reactive Protein 1.30 mg/dL (0.00-0.30) H 02/27/18 23:45 Total Protein 7.2 g/dL (6.4-8.2) 02/27/18 23:45 Albumin 3.2 g/dL (3.4-5.0) L 02/27/18 23:45 TSH 1.960 uIU/mL (0.358-3.740) 02/28/18 06:41 Labs on day of discharge: Labs from last 24 hours 02/28/18 02/28/18 02/28/18 08:54 06:41 06:41 WBC RBC Hgb Hct MCV MCH MCHC RDW Plt Count MPV Neut % (Auto) Lymph % (Auto) [place] % (Auto) Eos % (Auto) Baso % (Auto) Neut # (Auto) Lymph # (Auto) [place] # (Auto) Eos # (Auto) Baso # (Auto) WBC Differential Differential Comment ESR Sodium Potassium Chloride Carbon Dioxide Anion Gap BUN Creatinine Estimated GFR POC Glucose 107 Random Glucose Hemoglobin A1c Pending Calcium Total Bilirubin AST ALT Alkaline Phosphatase C-Reactive Protein Total Protein Albumin TSH 1.960 MARY Screen 02/28/18 02/27/18 02/27/18 06:41 23:45 23:45 WBC RBC Hgb Hct MCV MCH MCHC RDW Plt Count MPV Neut % (Auto) Lymph % (Auto) [place] % (Auto) Eos % (Auto) Baso % (Auto) Neut # (Auto) Lymph # (Auto) [place] # (Auto) Eos # (Auto) Baso # (Auto) WBC Differential Differential Comment ESR 33 H Sodium 142 Potassium 3.4 L Chloride 107 Carbon Dioxide 29.0 Anion Gap 6 BUN 12 Creatinine 0.67 Estimated GFR Greater than 89 POC Glucose Random Glucose 79 Hemoglobin A1c Calcium 8.3 L Total Bilirubin 0.3 AST 10 L ALT 23 Alkaline Phosphatase 93 C-Reactive Protein 1.30 H Total Protein 7.2 Albumin 3.2 L TSH MARY Screen Pending 02/27/18 23:45 WBC 10.9 RBC 4.15 Hgb 11.7 Hct 35.7 MCV 86.1 MCH 28.1 MCHC 32.7 RDW 14.0 Plt Count 301 MPV 8.3 Neut % (Auto) 57.4 Lymph % (Auto) 32.5 [place] % (Auto) 7.5 Eos % (Auto) 1.7 Baso % (Auto) 0.9 Neut # (Auto) 6.3 Lymph # (Auto) 3.6 [place] # (Auto) 0.8 Eos # (Auto) 0.2 Baso # (Auto) 0.1 WBC Differential . Differential Comment Auto diff final ESR Sodium Potassium Chloride Carbon Dioxide Anion Gap BUN Creatinine Estimated GFR POC Glucose Random Glucose Hemoglobin A1c Calcium Total Bilirubin AST ALT Alkaline Phosphatase C-Reactive Protein Total Protein Albumin TSH MARY Screen Discharge Plan - Discharge Disposition Patient Disposition: 07 Against Medical Advice - Discharge Condition Condition: Fair - Discharge Order Discharge Orders: Discharge Order (Routine); Ordered 02/28/18 Ordered By: Ang Shelton - Discharge Details Anticipated Discharge Date: 02/28/18 Discharge Comment: LEFT AMA - Physicians Team Primary Care Provider: UNKNOWN, Attending Provider: Ang Shelton Other Providers: Terri Mukherjee MD ; [employer],Insurance
[2018-02-28 13:50] LABS: Hemoglobin A1c 5.4 % (4.3-6.0)
== END 2018-02-28 10:28 | disposition left against medical advice (07) ==
LOC: NEPC 18:50 → NEDA 18:50 → NEPFCDU 02-28 03:47
PROVIDERS: ADMIT Hospitalist; ATTEND Hospitalist

== ENCOUNTER 2018-03-25 15:09 | Inpatient (IN) ==
[2018-03-25] MEDS ORDERED: Morphine Inj 4 MG/ML Vial IV.PUSH ONE (16:20)
--- NOTE | 2018-03-25 16:20 | XR ---
EXAM DATE: 03/25/2018 4:14 PM EST AGE/SEX: 33 years / Female INDICATIONS: Left sided chest pain. CLINICAL DATA: This is the patient's initial encounter. Patient reports that signs and symptoms have been present for 1 day and indicates a pain score of 10/10. MEDICAL/SURGICAL HISTORY: None. None. COMPARISON: [facility] – [place], CHEST 1V SINGLE AP, 10/27/2017. . FINDINGS: Mild central interstitial infiltrates bilaterally. No evidence of effusion. Cardiothymic mediastinal contours are satisfactory. CONCLUSION: Mild bilateral interstitial infiltrates. Electronically signed by: Wallace Parker MD 03/25/2018 4:19 PM EST
--- NOTE | 2018-03-25 16:33 | ED ---
HPI General Chief Complaint: Chest Pain Stated Complaint: Medical Time Seen by Provider: 03/25/18 15:43 History of Present Illness HPI narrative: Patient went to walk-in clinic today secondary to feeling sick and having a headache and chest pain and cough productive with thick green phlegm. Symptoms began on Friday. She states her son has URI symptoms. Also reporting a sore throat and nasal drip. She is 8 weeks . Pain described as being sharp underneath her left breast radiating to her shoulder. Pain is been constant since this afternoon when she lies down makes it worse when she sits up or makes it better and is worse when she coughs. She is currently on Keflex for the past 4 days for UTI states that symptoms are getting somewhat better. She is reporting a fever T-max of 101 this morning she took aspirin and Tylenol. Also reporting some chills and headache and sinus pressure eye pain. Patient has a history of pseudotumor cerebri and had to have a shunt removed secondary to aseptic meningitis. She states the last time that she was tap was 2 months ago. Her prior neurosurgeon Dr. Cerrato is no longer believed [place]. Dr Haddad is patient's neurologist. She denies vaginal bleed/discharge. Related Data Home Medications Medication Instructions Recorded Confirmed ondansetron [Zofran ODT] 4 mg PO TID PRN 01/28/18 03/25/18 aspirin [Aspirin Low Dose] 81 mg PO DAILY 03/25/18 03/25/18 cephalexin [Keflex] 500 mg PO BID 03/25/18 03/25/18 Previous Rx's Medication Instructions Recorded promethazine 25 mg PO Q6H PRN #14 tab 03/12/18 Allergies Allergy/AdvReac Type Severity Reaction Status Date / Time amoxicillin Allergy Severe Anaphylaxis Verified 03/25/18 15:47 ketorolac Allergy Severe Anaphylaxis Verified 03/25/18 15:47 Sulfa (Sulfonamide Allergy Severe RASH Verified 03/25/18 15:47 Antibiotics) ibuprofen Allergy Intermediate HIVES, Verified 03/25/18 15:47 FACIAL SWELLING. latex Allergy Intermediate Hives Verified 03/25/18 15:47 penicillin G Allergy Intermediate HIVES Verified 03/25/18 15:47 prochlorperazine Allergy Intermediate HIVES Verified 03/25/18 15:47 tramadol Allergy Intermediate HIVES Verified 03/25/18 15:47 sumatriptan AdvReac Severe VOMITING Verified 03/25/18 15:47 PASSED OUT Review of Systems ROS: all other systems reviewed are negative [facility] Social History Social History Substance History: No History of Abuse Second Hand Smoke Exposure: No Smoking Status: Former smoker Tobacco Type: Cigarettes How Often Do You Have a Drink Containing Alcohol: Never Recent Travel in [facility] within the Last 8 Weeks: No Recent Out of Country Travel within the Last 8 Weeks: No Immunization History Tetanus Immunization: <5 Years Exam Narrative Exam Narrative: GENERAL: No acute distress SKIN: Focused skin assessment warm/dry. HEAD: Atraumatic. Normocephalic. + frontal and maxillary sinus tenderness to palpation. EYES: Pupils equal and round. No scleral icterus. No injection or drainage. EOMI bilat. ENT: No nasal bleeding or discharge. Mucous membranes pink and moist. NECK: Trachea midline. No JVD. Supple, FROM, no meningeal signs. CARDIOVASCULAR: Regular rate and rhythm. No murmur appreciated. RESPIRATORY: No accessory muscle use. Clear to auscultation. Breath sounds coarse bilaterally. GASTROINTESTINAL: Abdomen soft, non-tender, nondistended. Hepatic and splenic margins not palpable. L CVA tenderness. MUSCULOSKELETAL: No obvious deformities. No clubbing. No cyanosis. No edema. NEUROLOGICAL: Awake and alert. No obvious cranial nerve deficits. Motor grossly within normal limits. Normal speech. PSYCHIATRIC: Appropriate mood and affect; insight and judgment normal. Course Initial Documented Vital Signs Temperature 99.2 F 03/25/18 15:34 Pulse Rate 81 03/25/18 15:34 Respiratory Rate 20 03/25/18 15:34 Blood Pressure 132/62 03/25/18 15:34 Pulse Oximetry 100 03/25/18 15:34 Last Documented Vital Signs Temperature 98.5 F 03/25/18 15:54 Pulse Rate 79 03/25/18 18:18 Respiratory Rate 18 03/25/18 18:18 Blood Pressure 136/81 03/25/18 18:18 Pulse Oximetry 99 03/25/18 18:18 Medical Decision Making [facility] Narrative Medical decision making narrative: Patient is a 33-year-old female with a history of pseudotumor cerebri and 8 weeks complaining of headache and URI symptoms. Patient placed on monitor tech, continuous pulse ox, and IV access obtained. Chest x-ray, EKG, labs ordered. 1604-discussed with Dr. Haddad. Advised to get a MRI of the brain without contrast and if negative may need IR to do a lumbar puncture to check opening pressure. Also discussed case with Dr. Herrera, OB hospitalist. Suggested that patient can get IV morphine for pain and IV labetalol or hydralazine for hypertension. Patient was written for 4 mg IV morphine. 1710: CXR-CONCLUSION: Mild bilateral interstitial infiltrates.Leukocytosis. Urine-few bacteria, protein. Elevated beta HCG. 1829: Discussed with hospitalist, mei give rocephin 1gram IV and zithromax 500mg po. Patient will be admitted for observation. Repeat BP 136/81. MRI was negative. Spoke to Dr Haddad and advised of normal MRI and BP normalized. Dr Haddad states he would hold off on getting LP, DELCID may have been 2/2 HTN and URI symptoms. Advises that he will consult on the patient. Patient looks better. Discussed with admit MD. Medical Screen Exam Complete: Yes Emergency Medical Condition: Yes Lab Data Result diagrams: 03/25/18 17:15 03/25/18 16:20 Lab Results 03/25/18 03/25/18 03/25/18 Range/Units 16:20 16:20 16:30 WBC (4.0-11.0) th/mm3 RBC (4.00-5.30) mil/mm3 Hgb (11.6-15.3) gm/dL Hct (35.0-46.0) % MCV (80.0-100.0) fL MCH (27.0-34.0) pg MCHC (32.0-36.0) % RDW (11.6-17.2) % Plt Count (150-450) th/mm3 MPV (7.0-11.0) fL Neut % (Auto) (16.0-70.0) % Lymph % (Auto) (9.0-44.0) % [place] % (Auto) (0.0-8.0) % Eos % (Auto) (0.0-4.0) % Baso % (Auto) (0.0-2.0) % Neut # (Auto) (1.8-7.7) th/mm3 Lymph # (Auto) (1.0-4.8) th/mm3 [place] # (Auto) (0.0-0.9) th/mm3 Eos # (Auto) (0.0-0.4) th/mm3 Baso # (Auto) (0.0-0.2) th/mm3 WBC Differential Differential Comment ESR (0-20) mm/hr PT (9.8-11.6) sec INR Ratio APTT (23.4-31.7) sec Sodium 132 L (136-145) meq/L Potassium 4.3 (3.5-5.1) meq/L Chloride 103 (98-107) meq/L Carbon Dioxide 21.1 (21.0-32.0) meq/L Anion Gap 8 (5-15) meq/L BUN 7 (7-18) mg/dL Creatinine 0.56 (0.50-1.00) mg/dL Estimated GFR Greater than 89 (>89) mL/min Random Glucose 82 (74-106) mg/dL Calcium 8.7 (8.5-10.1) mg/dL Total Bilirubin 0.6 (0.2-1.0) mg/dL AST 30 (15-37) U/L ALT 17 (10-53) U/L Alkaline Phosphatase 91 (45-117) U/L Troponin I Less than 0.02 L (0.02-0.05) ng/mL Total Protein 7.6 (6.4-8.2) g/dL Albumin 3.0 L (3.4-5.0) g/dL Beta HCG, Quant 23871 H Cancelled (0-5) mIU/mL Urine Color Che (Yellw/Straw) Urine Clarity Slightly cloudy (Clear) Urine pH 5.0 (5.0-8.5) Ur Specific [place] 1.023 (1.002-1.035) Urine Protein 30 H (Neg-Trace) mg/dL Urine Glucose (UA) Negative (Negative) mg/dL Urine Ketones 20 (Negative) mg/dL Urine Occult Blood Negative (Negative) Urine Nitrate Negative (Negative) Urine Bilirubin Negative (Negative) Urine Urobilinogen 2.0 H (Less than 2) mg/dL Ur Leukocyte Esterase Negative (Negative) Urine WBC 3 (0-5) /hpf Ur Squamous Epith Cells 20 (0-5) /hpf Urine Bacteria Few H (None) /hpf Urine Mucus Many H (Occasional) /lpf Micro UA Comment Culture not ind Ur Microscopic Review Not Reportable Urine Culture Comments Culture not ind 03/25/18 03/25/18 03/25/18 Range/Units 17:15 17:15 17:15 WBC 14.0 H (4.0-11.0) th/mm3 RBC 4.20 (4.00-5.30) mil/mm3 Hgb 12.2 (11.6-15.3) gm/dL Hct 36.3 (35.0-46.0) % MCV 86.3 (80.0-100.0) fL MCH 29.0 (27.0-34.0) pg MCHC 33.6 (32.0-36.0) % RDW 14.0 (11.6-17.2) % Plt Count 301 (150-450) th/mm3 MPV 7.8 (7.0-11.0) fL Neut % (Auto) 73.7 H (16.0-70.0) % Lymph % (Auto) 17.5 (9.0-44.0) % [place] % (Auto) 7.4 (0.0-8.0) % Eos % (Auto) 1.1 (0.0-4.0) % Baso % (Auto) 0.3 (0.0-2.0) % Neut # (Auto) 10.3 H (1.8-7.7) th/mm3 Lymph # (Auto) 2.4 (1.0-4.8) th/mm3 [place] # (Auto) 1.0 H (0.0-0.9) th/mm3 Eos # (Auto) 0.2 (0.0-0.4) th/mm3 Baso # (Auto) 0.0 (0.0-0.2) th/mm3 WBC Differential . Differential Comment Auto diff final ESR 53 H (0-20) mm/hr PT 10.0 (9.8-11.6) sec INR 1.0 Ratio APTT 28.0 (23.4-31.7) sec Sodium (136-145) meq/L Potassium (3.5-5.1) meq/L Chloride (98-107) meq/L Carbon Dioxide (21.0-32.0) meq/L Anion Gap (5-15) meq/L BUN (7-18) mg/dL Creatinine (0.50-1.00) mg/dL Estimated GFR (>89) mL/min Random Glucose (74-106) mg/dL Calcium (8.5-10.1) mg/dL Total Bilirubin (0.2-1.0) mg/dL AST (15-37) U/L ALT (10-53) U/L Alkaline Phosphatase (45-117) U/L Troponin I (0.02-0.05) ng/mL Total Protein (6.4-8.2) g/dL Albumin (3.4-5.0) g/dL Beta HCG, Quant (0-5) mIU/mL Urine Color (Yellw/Straw) Urine Clarity (Clear) Urine pH (5.0-8.5) Ur Specific [place] (1.002-1.035) Urine Protein (Neg-Trace) mg/dL Urine Glucose (UA) (Negative) mg/dL Urine Ketones (Negative) mg/dL Urine Occult Blood (Negative) Urine Nitrate (Negative) Urine Bilirubin (Negative) Urine Urobilinogen (Less than 2) mg/dL Ur Leukocyte Esterase (Negative) Urine WBC (0-5) /hpf Ur Squamous Epith Cells (0-5) /hpf Urine Bacteria (None) /hpf Urine Mucus (Occasional) /lpf Micro UA Comment Ur Microscopic Review Urine Culture Comments Imaging Data Radiologist's impression: Chest X-Ray 03/25/18 16:00 CONCLUSION: Mild bilateral interstitial infiltrates. Head MRI 03/25/18 16:13 CONCLUSION: 1. Negative MR Brain non contrast. ECG Data Attestation: I personally reviewed and interpreted this ECG as follows: (Sinus rhythm, rate 80, QTC 408, normal axis,TWI in III) Discharge Plan Discharge Disposition Patient Disposition: 30 Still Patient Discharge Condition Condition: Stable Discharge Details Diagnosis: , Pneumonia Physicians Team ED Provider: Melba Lockwood Primary Care Provider: UNKNOWN, Attending Provider: Michelle Ramirez Discharge Interventions Interventions: Vital Signs Last Done: 03/25/18 18:18 Status ED Status: Admitted Observation Patient
[2018-03-25 17:10] LABS: Bacteria,Urine Few /hpf; Bilirubin,Urine Negative (Negative); Color,Urine Amber (Yellw/Straw); Glucose,Urine (UA) Negative (Negative); Leukocyte Esterase,Urine Negative (Negative); Mucus,Urine Many /lpf (Occasional); Nitrite,Urine Negative (Negative); Specific Gravity,Urine 1.023 (1.002-1.035); Squamous Epithelial Cell,Urine 20 /hpf (0-5)
[2018-03-25 17:16] LABS: Alanine Aminotransferase 17 U/L (10-53); Anion Gap 8 meq/L (5-15); Aspartate Aminotransferase 30 U/L (15-37); Blood Urea Nitrogen 7 mg/dL (7-18); Calcium 8.7 mg/dL (8.5-10.1); Carbon Dioxide 21.1 meq/L (21.0-32.0); Chloride 103 meq/L (98-107); Glomerular Filtration Rate Greater Than 89 mL/min (>89); Glucose,Random 82 mg/dL (74-106); Potassium 4.3 meq/L (3.5-5.1); Sodium 132 meq/L (136-145)
[2018-03-25 17:20] LABS: Alkaline Phosphatase 91 U/L (45-117); Total Protein 7.6 g/dL (6.4-8.2)
[2018-03-25 17:32] LABS: Clarity,Urine Slightly Cloudy (Clear)
[2018-03-25 17:38] LABS: Beta HCG,Quantitative 96733 mIU/mL (0-5)
[2018-03-25 17:52] LABS: Baso % (Auto) 0.3 % (0.0-2.0); Eos # (Auto) 0.2 th/mm3 (0.0-0.4); Eos % (Auto) 1.1 % (0.0-4.0); Hematocrit 36.3 % (35.0-46.0); Hemoglobin 12.2 gm/dL (11.6-15.3); Lymph # (Auto) 2.4 th/mm3 (1.0-4.8); Lymph % (Auto) 17.5 % (9.0-44.0); Mean Corpuscular HGB Conc 33.6 % (32.0-36.0); Mean Corpuscular Volume 86.3 fL (80.0-100.0); Mean Platelet Volume 7.8 fL (7.0-11.0); Mono % (Auto) 7.4 % (0.0-8.0); Neut # (Auto) 10.3 th/mm3 (1.8-7.7); Neut % (Auto) 73.7 % (16.0-70.0); Platelet Count 301 th/mm3 (150-450)
--- NOTE | 2018-03-25 18:00 | MR ---
EXAM DATE: 03/25/2018 5:56 PM EST AGE/SEX: 33 years / Female INDICATIONS: . Pseudotumor cerebri, headache, Pain CLINICAL DATA: This is the patient's initial encounter. Patient reports that signs and symptoms have been present for 1 week and indicates a pain score of 4/10. MEDICAL/SURGICAL HISTORY: . Idiopathic Intercranial Hypertension . LP Shunt, Removal of shunt , Left renal stent COMPARISON: No prior exams available for comparison. TECHNIQUE: Multiplanar, multisequence examination of the brain was performed without contrast. FINDINGS: Cerebrum: The ventricles are normal for age. No evidence of midline shift, mass lesion, hemorrhage or acute infarction. No extraaxial fluid collections are seen. The pituitary gland and suprasellar cistern are normal in configuration. White Matter: No significant signal abnormalities are seen in the white matter. Posterior Fossa: The cerebellum and brainstem are intact. The 4th ventricle is midline. The cerebel lopontine angle is unremarkable. The cerebellar tonsils are normal in position. Diffusion Imaging: No focal areas of restricted diffusion are seen. No evidence of acute infarction . Extracranial: The visualized portions of the orbits and paranasal sinuses are unremarkable. CONCLUSION: 1. Negative MR Brain non contrast. Electronically signed by: Farooq Hallman MD 03/25/2018 5:59 PM EST
[2018-03-25] MEDS ORDERED: Azithromycin 250 MG Tablet PO ONE (18:18)
[2018-03-25] MEDS ORDERED: Bisacodyl 10 MG Supp RECTAL PRN (22:35)
--- NOTE | 2018-03-25 22:50 | P.HP ---
History of Present Illness Service: [facility] Primary Care Physician: UNKNOWN History of Present Illness: 33-year-old female with a past medical history significant for pseudotumor cerebri and at 8 weeks / 1 day weeks gestational age, well-known to me , presents to the emergency department for the evaluation of headache, chest pain and cough productive of thick green sputum. The patient reports that her symptoms started Friday and have progressively worsened. She describes her chest pain is under her left breast and radiating to her shoulder that is worse with deep breaths and coughing. The patient endorses fevers and chills. She states that she has had visual disturbances which she describes as floaters and decreased peripheral vision which usually occur when she needs an LP. No abdominal pain. No nausea/vomiting/diarrhea. No vaginal bleeding. No focal neurologic deficits. Review of Systems All other systems reviewed negative except as stated in HPI PMFSH - History History Provided By: Patient - Medical History Medical History: Medical History (Last Reviewed 03/25/18 @ 22:43 by Sharyn Castellanos MD) Asthma Bacterial meningitis Diabetes Seizures Pseudotumor cerebri delivery delivered - Surgical History Surgical History: Surgical History (Last Reviewed 03/25/18 @ 22:43 by Sharyn Castellanos MD) History of renal stent Status post lumboperitoneal shunt placement - Family History Family History: Family History (Last Updated 03/25/18 @ 22:43 by Sharyn Castellanos MD) Other Family history normal - Tobacco History Second Hand Smoke Exposure: No Tobacco Use In Past 30 Days: No Smoking Status: Former smoker Tobacco Type: Cigarettes - Alcohol History How Often Do You Have a Drink Containing Alcohol: Never - Substance Use History Substance History: No History of Abuse - Travel History Recent Travel in the [facility] Within the Last 8 Weeks: No Recent Travel Out of the Country Within the Last 8 Weeks: No - Immunization History Tetanus Immunization: <5 Years Medications and Allergies Active Medications: Active Medications Acetaminophen (Tylenol) 650 mg PO Q4H PRN PRN Reason: Temp > 100.4 Bisacodyl (Dulcolax Supp) 10 mg RECTAL DAILY PRN PRN Reason: SEVERE CONSITIPATION Lactulose (Lactulose Liq) 30 ml PO DAILY PRN PRN Reason: SEVERE CONSITIPATION Sodium Chloride (Ns Flush) 2 ml IV.FLUSH BID SANDY Last Admin: 03/25/18 20:59 Dose: 2 ml Sodium Chloride (Ns Flush) 2 ml IV.FLUSH PRN PRN PRN Reason: FLUSH AFTER USING IV ACCESS Allergies Allergy/AdvReac Type Severity Reaction Status Date / Time amoxicillin Allergy Severe Anaphylaxis Verified 03/25/18 15:47 ketorolac Allergy Severe Anaphylaxis Verified 03/25/18 15:47 Sulfa (Sulfonamide Allergy Severe RASH Verified 03/25/18 15:47 Antibiotics) ibuprofen Allergy Intermediate HIVES, Verified 03/25/18 15:47 FACIAL SWELLING. latex Allergy Intermediate Hives Verified 03/25/18 15:47 penicillin G Allergy Intermediate HIVES Verified 03/25/18 15:47 prochlorperazine Allergy Intermediate HIVES Verified 03/25/18 15:47 tramadol Allergy Intermediate HIVES Verified 03/25/18 15:47 sumatriptan AdvReac Severe VOMITING Verified 03/25/18 15:47 PASSED OUT Home Medications Medication Instructions Recorded Confirmed Type ondansetron [Zofran ODT] 4 mg PO TID PRN 01/28/18 03/25/18 History aspirin [Aspirin Low Dose] 81 mg PO DAILY 03/25/18 03/25/18 History cephalexin [Keflex] 500 mg PO BID 03/25/18 03/25/18 History Exam Vital signs: Vital Signs 03/25/18 15:34 03/25/18 15:54 03/25/18 18:18 Temperature 99.2 F 98.5 F Pulse Rate 81 86 79 Respiratory Rate 20 19 18 Blood Pressure 132/62 197/77 H 136/81 Pulse Oximetry 100 99 99 03/25/18 20:00 Temperature 99 F Pulse Rate 92 H Respiratory Rate 20 Blood Pressure 119/70 Pulse Oximetry 100 Intake & Output 03/25/18 03/25/18 03/26/18 06:59 18:59 06:59 Intake Total 100 / 100 Balance 100 / 100 Weight 110.223 kg Intake: IV 100 / 100 Rocephin Inj 1,000 MG In NS Inj 100 / 100 100 ML @ 200 mls/hr IV.SIG ONCE ONE Rx#:[id number] Narrative: Gen.: No acute distress Head: Normocephalic. Atraumatic. EENT: Pupils equal round and reactive to light. Nose without drainage. Airway intact. Throat without injection. Cardiovascular: Regular rate and rhythm. No murmurs, rubs or gallops. Respiratory: Bilateral rhonchi Abdomen: Soft, nontender, nondistended. No peritoneal signs. Musculoskeletal: No gross deformities. No edema. Skin: No obvious rashes or erythema. Neuro: Sensory and motor grossly intact. Cranial nerves II through XII grossly intact. Results - Labs CBC & Chem 7: 03/25/18 17:15 03/25/18 16:20 Labs: Laboratory Results - last 24 hr 03/25/18 03/25/18 03/25/18 16:20 16:20 16:30 WBC RBC Hgb Hct MCV MCH MCHC RDW Plt Count MPV Neut % (Auto) Lymph % (Auto) [place] % (Auto) Eos % (Auto) Baso % (Auto) Neut # (Auto) Lymph # (Auto) [place] # (Auto) Eos # (Auto) Baso # (Auto) WBC Differential Differential Comment ESR PT INR APTT Sodium 132 L Potassium 4.3 Chloride 103 Carbon Dioxide 21.1 Anion Gap 8 BUN 7 Creatinine 0.56 Estimated GFR Greater than 89 Random Glucose 82 Calcium 8.7 Total Bilirubin 0.6 AST 30 ALT 17 Alkaline Phosphatase 91 Troponin I Less than 0.02 L Total Protein 7.6 Albumin 3.0 L Beta HCG, Quant 63290 H Cancelled Urine Color Che Urine Clarity Slightly cloudy Urine pH 5.0 Ur Specific [place] 1.023 Urine Protein 30 H Urine Glucose (UA) Negative Urine Ketones 20 Urine Occult Blood Negative Urine Nitrate Negative Urine Bilirubin Negative Urine Urobilinogen 2.0 H Ur Leukocyte Esterase Negative Urine WBC 3 Ur Squamous Epith Cells 20 Urine Bacteria Few H Urine Mucus Many H Micro UA Comment Culture not ind Ur Microscopic Review Not Reportable Urine Culture Comments Culture not ind 03/25/18 03/25/18 03/25/18 17:15 17:15 17:15 WBC 14.0 H RBC 4.20 Hgb 12.2 Hct 36.3 MCV 86.3 MCH 29.0 MCHC 33.6 RDW 14.0 Plt Count 301 MPV 7.8 Neut % (Auto) 73.7 H Lymph % (Auto) 17.5 [place] % (Auto) 7.4 Eos % (Auto) 1.1 Baso % (Auto) 0.3 Neut # (Auto) 10.3 H Lymph # (Auto) 2.4 [place] # (Auto) 1.0 H Eos # (Auto) 0.2 Baso # (Auto) 0.0 WBC Differential . Differential Comment Auto diff final ESR 53 H PT 10.0 INR 1.0 APTT 28.0 Sodium Potassium Chloride Carbon Dioxide Anion Gap BUN Creatinine Estimated GFR Random Glucose Calcium Total Bilirubin AST ALT Alkaline Phosphatase Troponin I Total Protein Albumin Beta HCG, Quant Urine Color Urine Clarity Urine pH Ur Specific [place] Urine Protein Urine Glucose (UA) Urine Ketones Urine Occult Blood Urine Nitrate Urine Bilirubin Urine Urobilinogen Ur Leukocyte Esterase Urine WBC Ur Squamous Epith Cells Urine Bacteria Urine Mucus Micro UA Comment Ur Microscopic Review Urine Culture Comments - Imaging Impressions Chest X-Ray 03/25/18 16:00 CONCLUSION: Mild bilateral interstitial infiltrates. Head MRI 03/25/18 16:13 CONCLUSION: 1. Negative MR Brain non contrast. Caprini VTE Risk Assessment Caprini VTE Risk Assessment: No/Low Risk (score <= 1) Caprini Risk Assessment Model: Point Value = 1 Point Value = 2 Point Value = 3 Point Value = 5 Age 41-60 Minor surgery BMI > 25 kg/m2 Swollen legs Varicose veins or History of unexplained or recurrent spontaneous Oral contraceptives or hormone replacement Sepsis (< 1 month) Serious lung disease, including pneumonia (< 1 month) Abnormal pulmonary function Acute myocardial infarction Congestive heart failure (< 1 month) History of inflammatory bowel disease Medical patient at bed rest Age 61-74 Arthroscopic surgery Major open surgery (> 45 min) Laparoscopic surgery (> 45 min) Malignancy Confined to bed (> 72 hours) Immobilizing plaster cast Central venous access Age >= 75 History of VTE Family history of VTE Factor V Leiden Prothrombin [id number] Lupus anticoagulant Anticardiolipin antibodies Elevated serum homocysteine Heparin-induced thrombocytopenia Other congenital or acquired thrombophilia Stroke (< 1 month) Elective arthroplasty Hip, pelvis, or leg fracture Acute spinal cord injury (< 1 month) Prophylaxis Regimen: Total Risk Factor Score Risk Level Prophylaxis Regimen 0-1 Low Early ambulation 2 Moderate Order ONE of the following: *Sequential Compression Device (SCD) *Heparin 5000 units SQ BID 3-4 Higher Order ONE of the following medications: *Heparin 5000 units SQ TID *Enoxaparin/Lovenox 40 mg SQ daily (WT < 150 kg, CrCl > 30 mL/min) *Enoxaparin/Lovenox 30 mg SQ daily (WT < 150 kg, CrCl > 10-29 mL/min) *Enoxaparin/Lovenox 30 mg SQ BID (WT < 150 kg, CrCl > 30 mL/min) AND/OR *Sequential Compression Device (SCD) 5 or more Highest Order ONE of the following medications: *Heparin 5000 units SQ TID (Preferred with Epidurals) *Enoxaparin/Lovenox 40 mg SQ daily (WT < 150 kg, CrCl > 30 mL/min) *Enoxaparin/Lovenox 30 mg SQ daily (WT < 150 kg, CrCl > 10-29 mL/min) *Enoxaparin/Lovenox 30 mg SQ BID (WT < 150 kg, CrCl > 30 mL/min) AND *Sequential Compression Device (SCD) Assessment and Plan - Plan Assessment/plan: 1. Pneumonia Chest x-ray significant for mild bilateral interstitial infiltrates Rocephin/azithromycin 2. Pseudotumor cerebri/visual changes/headache Neurology consulted to evaluate for possible LP 3. Intrauterine Patient is 8 weeks Continue outpatient follow-up FEN: N.p.o. Electrolytes: Monitor and replete as needed
[2018-03-25] MEDS: Sod Chloride 0.9% Inj 1,000 ML IV.CONT SCH (23:23)
[2018-03-26] MEDS: Acetaminophen 325 MG Tablet PO PRN ×3 (04:52→17:12)
[2018-03-26] MEDS ORDERED: Senna/Docusate Sodium 8.6/50 MG Tablet PO SCH (09:00)
--- NOTE | 2018-03-26 09:30 | P.PN ---
Subjective Interval history: Follow-up pneumonia and pseudotumor cerebri. Patient miserable coughing with green phlegm. Also has headache because of coughing. She wants to think about repeating LP. Discussed with neurology. Last dose of aspirin yesterday Physical Exam Vital signs: Vital Signs 03/25/18 15:34 03/25/18 15:54 03/25/18 18:18 Temperature 99.2 F 98.5 F Pulse Rate 81 86 79 Respiratory Rate 20 19 18 Blood Pressure 132/62 197/77 H 136/81 Pulse Oximetry 100 99 99 03/25/18 20:00 03/26/18 00:00 Temperature 99 F 98.6 F Pulse Rate 92 H 84 Respiratory Rate 20 20 Blood Pressure 119/70 117/61 Pulse Oximetry 100 98 Intake & Output 03/25/18 03/26/18 03/26/18 18:59 06:59 18:59 Intake Total 100 / 100 Output Total 2 / 2 Balance 98 / 98 Weight 110.223 kg 106.5 kg Intake: IV 100 / 100 Rocephin Inj 1,000 MG In NS Inj 100 / 100 100 ML @ 200 mls/hr IV.SIG ONCE ONE Rx#:[id number] Output: Urine 2 / 2 Other: Date of Last Bowel Movement 03/23/18 Narrative: Gen.: No acute distress Cardiovascular: Regular rate and rhythm. No murmurs, rubs or gallops. Respiratory: Bilateral rhonchi Abdomen: Soft, nontender, nondistended. No peritoneal signs. Musculoskeletal: No gross deformities. No edema. Skin: No obvious rashes or erythema. Neuro: Sensory and motor grossly intact. Cranial nerves II through XII grossly intact. Results - Labs CBC & Chem 7: 03/25/18 17:15 03/25/18 16:20 Laboratory Results - last 24 hr 03/25/18 03/25/18 03/25/18 16:20 16:20 16:30 WBC RBC Hgb Hct MCV MCH MCHC RDW Plt Count MPV Neut % (Auto) Lymph % (Auto) [place] % (Auto) Eos % (Auto) Baso % (Auto) Neut # (Auto) Lymph # (Auto) [place] # (Auto) Eos # (Auto) Baso # (Auto) WBC Differential Differential Comment ESR PT INR APTT Sodium 132 L Potassium 4.3 Chloride 103 Carbon Dioxide 21.1 Anion Gap 8 BUN 7 Creatinine 0.56 Estimated GFR Greater than 89 Random Glucose 82 Calcium 8.7 Total Bilirubin 0.6 AST 30 ALT 17 Alkaline Phosphatase 91 Troponin I Less than 0.02 L Total Protein 7.6 Albumin 3.0 L Beta HCG, Quant 68947 H Cancelled Urine Color Che Urine Clarity Slightly cloudy Urine pH 5.0 Ur Specific Melbeta 1.023 Urine Protein 30 H Urine Glucose (UA) Negative Urine Ketones 20 Urine Occult Blood Negative Urine Nitrate Negative Urine Bilirubin Negative Urine Urobilinogen 2.0 H Ur Leukocyte Esterase Negative Urine WBC 3 Ur Squamous Epith Cells 20 Urine Bacteria Few H Urine Mucus Many H Micro UA Comment Culture not ind Ur Microscopic Review Not Reportable Urine Culture Comments Culture not ind 03/25/18 03/25/18 03/25/18 17:15 17:15 17:15 WBC 14.0 H RBC 4.20 Hgb 12.2 Hct 36.3 MCV 86.3 MCH 29.0 MCHC 33.6 RDW 14.0 Plt Count 301 MPV 7.8 Neut % (Auto) 73.7 H Lymph % (Auto) 17.5 [place] % (Auto) 7.4 Eos % (Auto) 1.1 Baso % (Auto) 0.3 Neut # (Auto) 10.3 H Lymph # (Auto) 2.4 [place] # (Auto) 1.0 H Eos # (Auto) 0.2 Baso # (Auto) 0.0 WBC Differential . Differential Comment Auto diff final ESR 53 H PT 10.0 INR 1.0 APTT 28.0 Sodium Potassium Chloride Carbon Dioxide Anion Gap BUN Creatinine Estimated GFR Random Glucose Calcium Total Bilirubin AST ALT Alkaline Phosphatase Troponin I Total Protein Albumin Beta HCG, Quant Urine Color Urine Clarity Urine pH Ur Specific Melbeta Urine Protein Urine Glucose (UA) Urine Ketones Urine Occult Blood Urine Nitrate Urine Bilirubin Urine Urobilinogen Ur Leukocyte Esterase Urine WBC Ur Squamous Epith Cells Urine Bacteria Urine Mucus Micro UA Comment Ur Microscopic Review Urine Culture Comments Microbiology 03/25/18 16:02 Nasal Wash Influenza Types A,B Antigen - Final Negative for FLU A and B antigen Infection due to influenza A or B cannot be ruled out since the antigen present in the sample may be below the detection limit of the test. 03/25/18 16:05 Throat Group A Streptococcus Screen ([facility]) - Final - Imaging Impressions Chest X-Ray 03/25/18 16:00 CONCLUSION: Mild bilateral interstitial infiltrates. Head MRI 03/25/18 16:13 CONCLUSION: 1. Negative MR Brain non contrast. Assessment and Plan - Plan 1. Pneumonia with sepsis. Negative for flu. Chest x-ray significant for mild bilateral interstitial infiltrates Rocephin/azithromycin, patient has tolerated Rocephin in the past. Obtain sputum, Legionella and pneumococcal urinary antigen. Ideally needs to have blood cultures however patient on antibiotics already. Will obtain cultures if febrile 2. Pseudotumor cerebri/visual changes/headache Neurology recommending LP with opening pressure. Patient to think about it. Last dose of aspirin 03/25/2018. Outpatient follow-up with ophthalmology(Dr Arndt) to follow visual acuity 3. Intrauterine Patient is 8 weeks Continue outpatient follow-up FEN: Electrolytes: Monitor and replete as needed
--- NOTE | 2018-03-26 09:32 | MB ---
cc: Peter Weeks MD DATE: 03/26/2018 HISTORY OF PRESENT ILLNESS: A 33-year-old woman with a history of pseudotumor cerebri that I had seen in the hospital and in 07/2017, well-known to neurology and neurosurgery here, history of kidney stones. Diagnosed with pseudotumor cerebri about 5 years ago. Known increased pressure. Had been on Topamax, Lasix, Diamox. Had 2 LPs with opening pressure about 30. Improved vision after LPs. She wound up finally getting a shunt. She had a normal MR venogram in the past, normal MRIs. She had clear CSF in the past. Sedimentation rate 30, RPR/MARY negative. I did not see any papilledema at that time, but she was having vision loss on the left. She wound up eventually having a shunt placed and then came in with multiple headaches. Wound up having some LPs that showed about 250 white cells, but nothing ever grew out. 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 Since that time, she has been having daily headaches, which were better when she had the shunt in. Recently, had more of a right frontal headache and she is actually coming in with pneumonia. Her son has been sick at home and she has got a productive cough and fever. I am asked to see her for possible LP. She had some left-sided weakness along the way with negative MRIs, left-sided numbness. It was unclear what. She has had a lot of anxiety in the past. She had shunt revision in the abdomen. Shunt seemed to be working well back in September. FAMILY HISTORY: Negative for cancer, seizure, or stroke. SOCIAL HISTORY: Not a smoker or drinker, lives with . REVIEW OF SYSTEMS: No history of diabetes; hypertension; hypercholesterolemia; anemia; AR; CABG; cardiac arrhythmia; renal, hepatic, pulmonary disease; thyroid disease; lupus; ulcer. No seizure or stroke. She takes some narcotics at home for chronic headaches. On 10/08/2017, she had 120 white cells, 35 red cells, 48% lymphocytes, protein of 50, glucose of 51 in the CSF. CSF for Lyme was negative. Encephalitis titers were negative at that time. CRPs were essentially normal in 08/2017. The LP at that time showed an opening pressure of 16 cm of water. She had a CTA of the head and neck then. CTA of the brain was normal. CTA of the carotids normal. MRI of the brain normal. CURRENT MEDICATIONS AT HOME: At home, she was on 81 of aspirin, Keflex, Zofran, promethazine. She says she takes narcotics at home for headaches. ALLERGIES: ALLERGIC TO AMOXICILLIN, TORADOL, SULFA, IBUPROFEN, LATEX, PENICILLIN, PROCHLORPERAZINE, TRAMADOL, SUMATRIPTAN. CURRENT MEDICATIONS: She is on Tylenol, azithromycin, ceftriaxone. PHYSICAL EXAMINATION: VITAL SIGNS: 99 is her T-max, 84, 20, 117/61. NECK: There are no carotid bruits. Supple. HEART: Regular rate and rhythm. I did not detect a murmur. GENERAL: She is moderately obese. No apparent distress. NEUROLOGIC: The pupils are equal. Visual hyatt are full, though she thought she saw a diminished visual field over to the left inferior field in the left eye, but she could count fingers. Extraocular movements intact without nystagmus. The right disc is sharp, although it is not particularly deep. Face is symmetric. Tongue was midline. No drift. Normal strength in upper and lower extremities bilaterally. Toes downgoing bilaterally. DTRs 2+ and symmetric throughout. Pinprick is diminished on the left side compared to the right, which she says is old. She is awake and alert. Speech is fluent. She is not aphasic. DIAGNOSTIC DATA: White count of 14,000. Sedimentation rate 53. UA is negative. Basic metabolic profile essentially normal. Troponin negative. Beta hCG is 96,000 as she is 8 weeks . MRI of the brain done last night without contrast read as negative. Chest x-ray: Bibasilar infiltrates. Review of her MRI does appear to be normal. No old or new stroke is seen. IMPRESSION AND PLAN: History of pseudotumor. She will need her vision followed as an outpatient with ophthalmology. I do not see any papilledema here, although she did not have a lot of papilledema when I had seen her in July. She evidently had a positive culture of CSF in November over at [facility], though her CSF here had never been growing out anything. The shunt is now removed. I think it would be of help to check a LP with an opening pressure. I am not sure if she can have it done under fluoroscopy, may have to consult anesthesia for it. It would be of interest to know what her opening pressure is now as she has been off the shunt for 3 months. Otherwise, a thorough neurological exam looked well except she has some left-sided numbness, which she says is old and probably a lot of her symptoms coming in here are from the pneumonia. So, overall my impression is she should have some Healy hyatt done by ophthalmology as an outpatient, hopefully next week; and I think it would be helpful to check a lumbar puncture on her here to see what her opening pressure is. I do not suspect she has any meningitis at this time, however. Then she should follow up with Dr. Haddad in the office. I will check out the records over at [facility] later today to see what she grew out of her CSF. MD EUSEBIA Peraza/shar , 08:22 AM , 08:36 AM
--- NOTE | 2018-03-26 12:09 | ECG ---
Date Performed: 03/25/2018 Time Performed: 16:54:02 PTAGE: 33 years EKG: Sinus rhythm NORMAL ECG Since the PREVIOUS TRACING , no significant change noted PREVIOUS TRACIN10/12/2017 16.50 DOCTOR: Peter Mann Interpretating Date/Time 03/26/2018 12:07:56
[2018-03-26] MEDS ORDERED: Naloxone Inj 0.4 MG/ML Vial IV.PUSH PRN (12:19)
[2018-03-26] MEDS: Morphine Inj 4 MG/ML Vial IV.PUSH PRN ×2 (13:09→19:03)
[2018-03-26] MEDS: Sod Chloride 0.9% Inj 1,000 ML IV.CONT SCH (14:25)
[2018-03-26] MEDS: Azithromycin Inj 500 MG in Sodium Chlor 0.9% Inj 250 ML IV.SIG SCH (17:29)
[2018-03-26] MEDS ORDERED: Sodium Chloride 0.65% Nasal Spray 45 ML Bottle EACH NARE PRN (19:37)
[2018-03-27] MEDS: Morphine Inj 4 MG/ML Vial IV.PUSH PRN ×5 (01:42→21:52)
[2018-03-27] MEDS: Sod Chloride 0.9% Inj 1,000 ML IV.CONT SCH ×2 (05:35→18:12)
--- NOTE | 2018-03-27 06:26 | P.PNNEU ---
Subjective Active Medications: Active Medications Acetaminophen (Tylenol) 650 mg PO Q4H PRN PRN Reason: Temp > 100.4/pain Last Admin: 03/26/18 17:12 Dose: 650 mg Sodium Chloride (Ns Inj) 1,000 mls @ 70 mls/hr IV.CONT .[id number] [facility] Last Infusion: 03/27/18 05:35 Dose: Infused Ceftriaxone Sodium 1,000 mg/ (Sodium Chloride) 100 mls @ 200 mls/hr IV.SIG Q24H [facility] Last Infusion: 03/26/18 18:10 Dose: Infused Azithromycin 500 mg/ Sodium (Chloride) 250 mls @ 250 mls/hr IV.SIG Q24H [facility] Last Infusion: 03/26/18 18:34 Dose: Infused Morphine Sulfate (Morphine Inj) 2 mg IV.PUSH Q6H PRN PRN Reason: Acute Pain Stop: 03/28/18 12:18 Last Admin: 03/27/18 01:42 Dose: 2 mg Naloxone HCl (Narcan Inj) 0.4 mg IV.PUSH UNSCH PRN PRN Reason: SEE LABEL COMMENTS Ondansetron HCl (Zofran Inj) 4 mg IV.PUSH Q6H PRN PRN Reason: NAUSEA OR VOMITING Last Admin: 03/27/18 00:12 Dose: 4 mg Sodium Chloride (Ns Flush) 2 ml IV.FLUSH BID [facility] Last Admin: 03/26/18 22:18 Dose: Not Given Sodium Chloride (Ns Flush) 2 ml IV.FLUSH PRN PRN PRN Reason: FLUSH AFTER USING IV ACCESS Sodium Chloride ([place]) 2 spray EACH NARE Q1H PRN PRN Reason: STUFFY NOSE Allergies/Adverse Reactions: Allergies Allergy/AdvReac Type Severity Reaction Status Date / Time amoxicillin Allergy Severe Anaphylaxis Verified 03/25/18 15:47 ketorolac Allergy Severe Anaphylaxis Verified 03/25/18 15:47 Sulfa (Sulfonamide Allergy Severe RASH Verified 03/25/18 15:47 Antibiotics) ibuprofen Allergy Intermediate HIVES, Verified 03/25/18 15:47 FACIAL SWELLING. latex Allergy Intermediate Hives Verified 03/25/18 15:47 penicillin G Allergy Intermediate HIVES Verified 03/25/18 15:47 prochlorperazine Allergy Intermediate HIVES Verified 03/25/18 15:47 tramadol Allergy Intermediate HIVES Verified 03/25/18 15:47 sumatriptan AdvReac Severe VOMITING Verified 03/25/18 15:47 PASSED OUT Physical Exam Vital signs: Vital Signs 03/26/18 08:00 03/26/18 11:13 03/26/18 12:00 Temperature 98.8 F 98.5 F 98.5 F Pulse Rate 75 69 69 Respiratory Rate 20 19 19 Blood Pressure 88/48 L 121/60 121/60 Pulse Oximetry 95 97 97 03/26/18 16:00 03/26/18 20:00 03/27/18 00:00 Temperature 98.2 F 98.7 F 97.9 F Pulse Rate 75 75 68 Respiratory Rate 19 20 20 Blood Pressure 120/83 104/53 L 107/63 Pulse Oximetry 98 97 97 Intake & Output 03/26/18 03/26/18 03/27/18 06:59 18:59 06:59 Intake Total 100 / 100 2350 / 2350 1480 / 1480 Output Total 2 / 2 700 / 700 Balance 98 / 98 1650 / 1650 1480 / 1480 Weight 106.5 kg 106.5 kg Intake: IV 100 / 100 1350 / 1350 1000 / 1000 NS Inj 1,000 ML @ 70 mls/hr IV. 1000 / 1000 1000 / 1000 CONT .[id number] [facility] Rx#:[id number] Azithromycin Inj 500 MG In NS 250 / 250 Inj 250 ML @ 250 mls/hr IV.SIG Q24H [facility] Rx#:[id number] Rocephin Inj 1,000 MG In NS Inj 100 / 100 100 / 100 100 ML @ 200 mls/hr IV.SIG Q24H [facility] Rx#:[id number] Oral 1000 / 1000 480 / 480 Output: Urine 2 / 2 Emesis 700 / 700 Other: # Voids 6 3 Date of Last Bowel Movement 03/23/18 03/23/18 # Bowel Movements 0 Narrative: awake alert nad moves all Objective Laboratory Results - last 24 hr 03/26/18 10:31 Procalcitonin 0.06 Microbiology 03/25/18 16:05 Group A Streptococcus Screen/Cult - Preliminary Throat No Beta Streptococci isolated at 24 hours Review/Management - Review/Management Plan: imp pseudotumor mild reyes only this am i dw her and she agreed to hold LP and check her askew hyatt next week with dr marie o/p and if vision failing would be pushed to shunt or ON fenestration ok to dc neurowise when cleared by med team pneumonia
[2018-03-27] MEDS: Acetaminophen 325 MG Tablet PO PRN (10:29)
[2018-03-27] MEDS ORDERED: Morphine Inj 4 MG/ML Vial IV.PUSH PRN (14:07)
--- NOTE | 2018-03-27 14:07 | P.PN ---
Subjective Interval history: Follow-up asthma and pneumonia. Continues to cough with shortness of breath associated with wheezing. Accepts risks of beta agonist. Does not want to be on steroids. Physical Exam Vital signs: Vital Signs 03/26/18 16:00 03/26/18 20:00 03/27/18 00:00 Temperature 98.2 F 98.7 F 97.9 F Pulse Rate 75 75 68 Respiratory Rate 19 20 20 Blood Pressure 120/83 104/53 L 107/63 Pulse Oximetry 98 97 97 03/27/18 08:00 03/27/18 10:01 03/27/18 10:02 Temperature 98.3 F Pulse Rate 67 80 Respiratory Rate 16 12 Blood Pressure 99/58 L Pulse Oximetry 95 98 03/27/18 12:00 Temperature 98.3 F Pulse Rate 68 Respiratory Rate 18 Blood Pressure 100/55 L Pulse Oximetry 99 Intake & Output 03/26/18 03/27/18 03/27/18 18:59 06:59 18:59 Intake Total 2350 / 2350 1480 / 1480 Output Total 700 / 700 Balance 1650 / 1650 1480 / 1480 Weight 106.5 kg Intake: IV 1350 / 1350 1000 / 1000 NS Inj 1,000 ML @ 70 mls/hr IV. 1000 / 1000 1000 / 1000 CONT .[id number] [facility] Rx#:[id number] Azithromycin Inj 500 MG In NS 250 / 250 Inj 250 ML @ 250 mls/hr IV.SIG Q24H [facility] Rx#:[id number] Rocephin Inj 1,000 MG In NS Inj 100 / 100 100 ML @ 200 mls/hr IV.SIG Q24H [facility] Rx#:[id number] Oral 1000 / 1000 480 / 480 Output: Emesis 700 / 700 Other: # Voids 6 3 Date of Last Bowel Movement 03/23/18 # Bowel Movements 0 Narrative: GENERAL: Well-developed and well-nourished SKIN: Warm and dry. HEAD: Normocephalic. EYES: No scleral icterus. No injection or drainage. NECK: Supple, trachea midline. No JVD or lymphadenopathy. CARDIOVASCULAR: Regular rate and rhythm without murmurs, gallops, or rubs. RESPIRATORY: Breath sounds equal bilaterally. No accessory muscle use. Mild expiratory wheezes GASTROINTESTINAL: Abdomen soft, non-tender, nondistended. MUSCULOSKELETAL: No cyanosis, or edema. BACK: Nontender without obvious deformity. No CVA tenderness. Results - Labs CBC & Chem 7: 03/25/18 17:15 03/25/18 16:20 Laboratory Results - last 24 hr 03/26/18 10:31 Procalcitonin 0.06 Microbiology 03/26/18 17:15 Urine - Clean Catch Urine Gram Stain - Final 03/26/18 17:15 Urine - Clean Catch Urine Streptococcus pneumoniae Antigen ( M - Final Presumptive negative for streptococcus pneumoniae antigen, suggesting no current or recent infection. Infection due to Streptococcus pneumoniae cannot be ruled out since the antigen present in the sample may be below the detection limit of the test. 03/26/18 17:15 Urine - Clean Catch Urine Legionella Antigen - Final Presumptive negative for Legionella pneumophila serogroup 1 antigen in urine, suggesting no recent or recurrent infection. Infection due to Legionella cannot be ruled out since other serogroups and species may cause disease, antigen may not be present in urine in early infection, and the level of antigen present in the urine may be below the detection limit of the test. 03/25/18 16:05 Throat Group A Streptococcus Screen/Cult - Preliminary No Beta Streptococci isolated at 24 hours Assessment and Plan - Plan 1. Pneumonia with sepsis and asthma exacerbation. Negative for flu. Chest x-ray significant for mild bilateral interstitial infiltrates Rocephin/azithromycin, patient has tolerated Rocephin in the past. Obtain sputum, negative Legionella and pneumococcal urinary antigen. Ideally needs to have blood cultures however patient on antibiotics already. Will obtain cultures if febrile Start nebulization. Refuses to be on steroids 2. Pseudotumor cerebri/visual changes/headache Per neurology hold LP and check her askew hyatt next week with Dr Arndt o/p and if vision failing would be pushed to shunt or ON fenestration 3. Intrauterine Patient is 8 weeks Continue outpatient follow-up FEN: Electrolytes: Monitor and replete as needed Discharge Planning: Dc in 1-2 days
[2018-03-27] MEDS: Azithromycin Inj 500 MG in Sodium Chlor 0.9% Inj 250 ML IV.SIG SCH (17:49)
[2018-03-28] MEDS: Morphine Inj 4 MG/ML Vial IV.PUSH PRN ×3 (03:33→11:41)
[2018-03-28 08:13] VITALS: TEMP 98.4
[2018-03-28 12:28] VITALS: BP 114/59; PULSE 75; RESP 19; O2SAT 97
--- NOTE | 2018-03-28 13:58 | P.PN ---
Physical Exam Vital signs: Vital Signs 03/27/18 16:00 03/27/18 17:11 03/27/18 20:00 Temperature 98.8 F 98.3 F Pulse Rate 74 74 70 Respiratory Rate 16 15 18 Blood Pressure 125/58 L 102/55 L Pulse Oximetry 98 96 03/28/18 00:00 03/28/18 08:00 03/28/18 12:00 Temperature 98.5 F 98.4 F 98.4 F Pulse Rate 67 78 75 Respiratory Rate 18 18 19 Blood Pressure 129/65 102/56 L 114/59 L Pulse Oximetry 98 99 97 Intake & Output 03/27/18 03/28/18 03/28/18 18:59 06:59 18:59 Intake Total 1500 / 1500 830 / 830 Balance 1500 / 1500 830 / 830 Weight 106.5 kg Intake: IV 100 / 100 250 / 250 Azithromycin Inj 500 MG In NS 250 / 250 Inj 250 ML @ 250 mls/hr IV.SIG Q24H [facility] Rx#:[id number] Rocephin Inj 1,000 MG In NS Inj 100 / 100 100 ML @ 200 mls/hr IV.SIG Q24H [facility] Rx#:[id number] Oral 1400 / 1400 580 / 580 Other: # Voids 6 3 Date of Last Bowel Movement 03/23/18 # Bowel Movements 0 Narrative: GENERAL: Well-developed and well-nourished SKIN: Warm and dry. HEAD: Normocephalic. EYES: No scleral icterus. No injection or drainage. NECK: Supple, trachea midline. No JVD or lymphadenopathy. CARDIOVASCULAR: Regular rate and rhythm without murmurs, gallops, or rubs. RESPIRATORY: Breath sounds equal bilaterally. No accessory muscle use. Mild expiratory wheezes GASTROINTESTINAL: Abdomen soft, non-tender, nondistended. MUSCULOSKELETAL: No cyanosis, or edema. BACK: Nontender without obvious deformity. No CVA tenderness. Results - Labs CBC & Chem 7: 03/25/18 17:15 03/25/18 16:20 Microbiology 03/27/18 06:30 Sputum - Expectorated Sputum Gram Stain - Final 03/27/18 06:30 Sputum - Expectorated Sputum Sputum Culture - Preliminary Heavy growth normal respiratory krishna at 24 hours 03/25/18 16:05 Throat Group A Streptococcus Screen/Cult - Final No Beta Streptococci isolated. 03/26/18 17:15 Urine - Clean Catch Urine Gram Stain - Final 03/26/18 17:15 Urine - Clean Catch Urine Streptococcus pneumoniae Antigen ( M - Final Presumptive negative for streptococcus pneumoniae antigen, suggesting no current or recent infection. Infection due to Streptococcus pneumoniae cannot be ruled out since the antigen present in the sample may be below the detection limit of the test. 03/26/18 17:15 Urine - Clean Catch Urine Legionella Antigen - Final Presumptive negative for Legionella pneumophila serogroup 1 antigen in urine, suggesting no recent or recurrent infection. Infection due to Legionella cannot be ruled out since other serogroups and species may cause disease, antigen may not be present in urine in early infection, and the level of antigen present in the urine may be below the detection limit of the test. Assessment and Plan - Plan 1. Pneumonia with sepsis and asthma exacerbation. Negative for flu. Chest x-ray significant for mild bilateral interstitial infiltrates Rocephin/azithromycin, patient has tolerated Rocephin in the past. Obtain sputum, negative Legionella and pneumococcal urinary antigen. Ideally needs to have blood cultures however patient on antibiotics already. Will obtain cultures if febrile Start nebulization. Refuses to be on steroids 2. Pseudotumor cerebri/visual changes/headache Per neurology hold LP and check her askew hyatt next week with Dr Arndt o/p and if vision failing would be pushed to shunt or ON fenestration 3. Intrauterine Patient is 8 weeks Continue outpatient follow-up FEN: Electrolytes: Monitor and replete as needed Discharge Planning: Dc in 1-2 days
--- NOTE | 2018-03-28 21:21 | P.DS ---
Date of admission: 03/26/18 12:28 Primary care physician: UNKNOWN Brief History from admission: 33-year-old female with a past medical history significant for pseudotumor cerebri and at 8 weeks / 1 day weeks gestational age, well-known to me , presents to the emergency department for the evaluation of headache, chest pain and cough productive of thick green sputum. The patient reports that her symptoms started Friday and have progressively worsened. She describes her chest pain is under her left breast and radiating to her shoulder that is worse with deep breaths and coughing. The patient endorses fevers and chills. She states that she has had visual disturbances which she describes as floaters and decreased peripheral vision which usually occur when she needs an LP. No abdominal pain. No nausea/vomiting/diarrhea. No vaginal bleeding. No focal neurologic deficits. DS: Medications - Discharge Medications Prescriptions: albuterol sulfate 2 puff INHALATION Q4-6H PRN #1 g PRN Reason: Shortness Of Breath Or Wheezing DS: Summary Hospital Course: 1. Pneumonia with sepsis and asthma exacerbation. Negative for flu. Procalcitonin WNL so this is viral dc abx. Asthma exac improved with good exercise tolarance on RA Chest x-ray significant for mild bilateral interstitial infiltrates Ct nebulization aware of possible effect on fetus. Refuses to be on steroids 2. Pseudotumor cerebri/visual changes/headache Per neurology hold LP and check her askew hyatt next week with Dr Arndt o/p and if vision failing would be pushed to shunt or ON fenestration counselled re narc raghu effect on fetus 3. Intrauterine Patient is 8 weeks Continue outpatient follow-up FEN: Electrolytes: Monitor and replete as needed Stable for dc - Time Spent with Patient Total time spent providing and/or coordinating discharge services: Greater than 30 minutes - Quality: VTE Deep Vein Thrombosis/Pulmonary Embolism Present on Admission: No Exam Vital signs: Vital Signs 03/28/18 00:00 03/28/18 08:00 03/28/18 12:00 Temperature 98.5 F 98.4 F 98.4 F Pulse Rate 67 78 75 Respiratory Rate 18 18 19 Blood Pressure 129/65 102/56 L 114/59 L Pulse Oximetry 98 99 97 Intake & Output 03/28/18 03/28/18 03/29/18 06:59 18:59 06:59 Intake Total 830 / 830 Balance 830 / 830 Weight 106.5 kg Intake: IV 250 / 250 Azithromycin Inj 500 MG In NS 250 / 250 Inj 250 ML @ 250 mls/hr IV.SIG Q24H SANDY Rx#:[id number] Oral 580 / 580 Other: # Voids 3 Date of Last Bowel Movement 03/23/18 Narrative: GENERAL: WD WN in [place] SKIN: Warm and dry. CARDIOVASCULAR: Regular rate and rhythm. RESPIRATORY: No accessory muscle use. Occ wheeze. Breath sounds equal bilaterally. GASTROINTESTINAL: Abdomen soft, non-tender, nondistended. MUSCULOSKELETAL: Extremities without clubbing, cyanosis, or edema. No obvious deformities. NEUROLOGICAL: Awake and alert. No obvious cranial nerve deficits. Motor grossly within normal limits. Five out of 5 muscle strength in the arms and legs. Normal speech. PSYCHIATRIC: Appropriate mood and affect; insight and judgment normal. Results Procedures completed during hospitalization: none Labs on day of discharge: Preliminary micro results at discharge 03/27/18 06:30 Sputum Culture - Preliminary Sputum - Expectorated Sputum Heavy growth normal respiratory krishna at 24 hours - Impressions ITS Impressions Chest X-Ray 03/25/18 16:00 CONCLUSION: Mild bilateral interstitial infiltrates. Head MRI 03/25/18 16:13 CONCLUSION: 1. Negative MR Brain non contrast. Discharge Plan - Discharge Disposition Patient Disposition: Discharge Home - Discharge Condition Condition: Stable - Discharge Order Discharge Orders: Discharge Order (Routine); Ordered 03/28/18 Ordered By: Danyel Baird - Physicians Team Primary Care Provider: UNKNOWN, Attending Provider: Danyel Baird Other Providers: Peter Thao MD
== END 2018-03-28 16:21 | disposition home or self-care (01) ==
LOC: NEPC 15:09 → NEDA 15:09 → N07 18:56
PROVIDERS: ADMIT Internal Medicine; ATTEND Internal Medicine